=== PATIENT | female | born 2000 | race Caucasian/White ===

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

== ENCOUNTER 2021-04-13 20:19 | Emergency (ER) | payer MEDICAID, SELFPAY ==
[2021-04-13 20:20] VITALS: BP 150/79; PULSE 99; RESP 18; TEMP 36.8; O2SAT 100; BMI 42.5
== END 2021-04-13 21:09 | disposition left against medical advice (07) ==
LOC: ED 21:09
DX: M25.559 Pain in unspecified hip (principal); Z53.21 Procedure and treatment not carried out due to patient leaving prior to being seen by health care provider

== ENCOUNTER 2021-04-14 10:34 | Emergency (ER) | payer MEDICAID, SELFPAY ==
[2021-04-14 10:35] VITALS: BP 168/83; PULSE 104; RESP 16; TEMP 35.8; O2SAT 100; BMI 49.6
--- NOTE | 2021-04-14 10:49 | ED.VIS.LOWEX ---
HPI History of Present Illness HPI Narrative: Patient who is 7 weeks presents with injury to her right hip and right knee that she sustained yesterday. She states that she was walking to her car and did a side split. She denies hitting her head or loss of consciousness but felt her right hip pop. She now has pain that is dull and achy and worse with walking, when it becomes sharp and stabbing. She tried Tylenol without relief. She denies any other problems. She does have mild pain on the lateral aspect of her right knee/distal femur. She has not noticed any bruising. Chief Complaint: Lower Extremity Injury PFSH PFSH Medical History no medical history Home Medications PNV,calcium [id number] acid [ Vitamin Plus Low Iron] 1 tab PO DAILY 04/14/21 [History Last Taken Unknown] ondansetron HCl 4 mg PO Q6H PRN PRN 04/14/21 [History Last Taken Unknown] Allergy/AdvReac Type Severity Reaction Status Date / Time No Known Allergies Allergy Verified 04/13/21 20:23 Surgical History (Updated 04/14/21 @ 10:57 by Ngozi Tabor) History of Surgical History no surgical history Social History Smoking Status: Never smoker ROS ROS ED ROS Narrative Constitutional: No fever, no chills. HEENT: No sore throat. No neck pain. No loss of vision. No rhinorrhea. Cardiovascular: No chest pain. No palpitations. No pedal edema. Respiratory: No cough, no shortness of breath. Abdominal: No abdominal pain. No nausea. No vomiting. Genitourinary: No dysuria. No hematuria. Musculoskeletal: No myalgias. Right hip, right lateral knee/distal femur pain, worse with weightbearing and walking. Neurologic: No headaches. No dizziness. No lightheadedness. Skin: No rash. No change in color. Psychiatric: No depression. No anxiety. EXAM Physical Exam Narrative Exam Narrative: Afebrile. Vital signs noted. HEENT: Normocephalic. Atraumatic. PERRL, EOMI. Neck soft and supple. No point tenderness or step off. Cardiovascular: Regular rate and rhythm. No murmurs, rubs, or gallops appreciated. Respiratory: No tachypnea. Lungs clear to auscultation bilaterally. Gastrointestinal: Abdomen soft, nontender, with normoactive bowel sounds. No rebound or guarding. Neurological: Awake. Alert. Nonfocal, nonlateralizing. Skin: No rash. Normal color. No pallor. Musculoskeletal: No pedal edema. Full range of motion extremities. No pain logrolling of right femur. Mild tenderness to palpation right iliac crest and along right proximal femur. Flexion and extension mechanism of right knee intact. Neurovascular intact distally. Const Vital Signs: 04/14/21 10:35 Temperature 96.4 F L Temperature Source Temporal Pulse Rate 104 H Respiratory Rate 16 Blood Pressure 168/83 H Blood Pressure Mean 111 Pulse Ox 100 Oxygen Delivery Method Room Air Positive obese Nutritional Appearance: obese MDM MDM MDM Narrative Medical decision making narrative: As the patient is 7 weeks , she was told to continue Tylenol which is generally safe in . I did discuss with the patient and her the risk of radiation with x-raying her. It was decided that the risk of radiation was less with a femur x-ray and so as not to irradiate the pelvis with a hip x-ray exclusively. She and her verbally consented to this and acknowledged the risk of radiation to the patient and her fetus. They would like to proceed with x-ray of the right femur. X-ray of the femur appears normal. At this point in time, I do feel that she has more of a hip strain/sprain. I feel she can be discharged safely home with follow-up. 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 Return instructions reviewed. Disposition is discharged home in stable condition. Radiography Diagnostic Testing: Clinical Impression(s) from Imaging Studies Femur X-Ray 04/14/21 11:05 IMPRESSION: Normal x-ray examination of the femur. Electronically Signed: Devaughn Ngo MD at 11:20 EST , Discharge Plan Triage Chief Complaint: Lower Extremity Injury ED Provider: Oscar Heart Dx/Rx/DC Orders Clinical Impression: Hip strain, Acute knee pain, Instructions: ED Hip Strain Prescriptions: No Action ondansetron HCl 4 mg tablet 4 mg PO Q6H PRN PRN (Reason: Nausea) RF: 0 Vitamin Plus Low Iron 27 mg iron- 1 mg tablet 1 tab PO DAILY RF: 0 Primary Care Provider: Care Physician,No Primary Referrals: Sarah North MD [STAFF PHYSICIAN] - As Needed Care Physician,No Primary [Primary Care Provider] - Disposition Disposition: Home, Self Care
--- NOTE | 2021-04-14 11:05 | RAD_ITS ---
STUDY: X-RAY - RIGHT FEMUR REASON FOR STUDY: Female, 20 years old. Pain -- patient 7 weeks TECHNIQUE: 4 view(s) of the femur. COMPARISON: None. FINDINGS: Normal visualized femur. Normal visualized soft tissue structure. RAD/Femur Min 2 Views IMPRESSION: Normal x-ray examination of the femur. Electronically Signed: Devaughn Ngo MD at 11:20 EST ,
== END 2021-04-14 12:20 | disposition home or self-care (01) ==
PROVIDERS: Emergency Provider Emergency Medicine; Visit Provider Emergency Medicine
DX: O9A.211 Injury, poisoning and certain other consequences of external causes complicating pregnancy, first trimester (principal); S76.011A Strain of muscle, fascia and tendon of right hip, initial encounter; W01.0XXA Fall on same level from slipping, tripping and stumbling without subsequent striking against object, initial encounter; Y93.01 Activity, walking, marching and hiking; Y99.8 Other external cause status; O99.891 Other specified diseases and conditions complicating pregnancy; M25.561 Pain in right knee; O99.211 Obesity complicating pregnancy, first trimester; Z3A.01 Less than 8 weeks gestation of pregnancy
CPT/HCPCS: 73552; 99282

== ENCOUNTER 2021-06-03 19:10 | Emergency (ER) | payer MEDICAID, SELFPAY ==
[2021-06-03 19:11] VITALS: BP 131/97; PULSE 130; RESP 15; TEMP 36.2; O2SAT 96; BMI 44.2
--- NOTE | 2021-06-03 19:30 | EKG12_ITS ---
Test Reason : DYSRHYTHMIA Blood Pressure : / mmHG Vent. Rate : 096 BPM Atrial Rate : 096 BPM P-R Int : 158 ms QRS Dur : 092 ms QT Int : 380 ms P-R-T Axes : 048 073 008 degrees QTc Int : 480 ms Sinus rhythm with occasional Premature ventricular complexes Prolonged QT Abnormal ECG Confirmed by SHANNAN DUPREE, NEVIN ([id number]), scientific publications editor AIMEE PONCE ([id number]) on 06/04/2021 12:50:22 P M Referred By: PRISCILLA Confirmed By:FATOU CAMPBELL MD
--- NOTE | 2021-06-03 19:31 | EX.ED.DYSGE1 ---
HPI History of Present Illness Chief Complaint: Palpitations Narrative Narrative: Presents with sudden onset of palpitations racing heart at 4 PM today at rest. Denies chest pains. She is lightheaded with the symptoms. Symptoms presented upon arrival to ED. Currently subsided. Mild dyspnea. No recent cough. No history of similar. G4, P3 14-week gestation followed by Dr. Singh. No recent travel, surgeries, or immobilizations. No history of PE or DVT. Denies recent vomiting or diarrhea. Denies any urinary symptoms. Prior similar symptoms: No PFSH PFSH Home Medications PNV,calcium 58-viez-sisit acid [ Vitamin Plus Low Iron] 1 tab PO DAILY 04/14/21 [History Last Taken Unknown] ondansetron HCl 4 mg PO Q6H PRN PRN 04/14/21 [History Last Taken Unknown] Allergy/AdvReac Type Severity Reaction Status Date / Time No Known Allergies Allergy Verified 06/03/21 19:14 Surgical History History of Social History Smoking Status: Never smoker ROS ROS ED Constitutional Constitutional ED: Denies chills, fever(s) or sweats Eyes Eyes: Denies change in vision ENT ENT ED: Denies dysphagia or sore throat Cardiovascular Cardiovascular: Reports palpitations; Denies chest pain, leg edema or racing heartbeat Respiratory/Chest Respiratory/Chest: Denies cough, dyspnea or dyspnea on exertion Gastrointestinal Gastrointestinal: Denies abdominal pain, diarrhea, nausea or vomiting Genitourinary Genitourinary ED: Denies dysuria, hematuria or urinary frequency Musculoskeletal Musculoskeletal: Denies back pain, extremity pain or neck pain Integumentary Denies rash or wounds Neurologic Neurologic: Denies headache(s), paresthesias or weakness EXAM Physical Exam Const Vital Signs: 06/03/21 19:11 06/03/21 19:30 06/03/21 19:58 Temperature 97.2 F L Temperature Source Temporal Pulse Rate 130 H 74 Respiratory Rate 15 16 Respiratory Effort Normal Blood Pressure 131/97 H 138/78 H Blood Pressure Mean 108 Pulse Ox 96 100 Oxygen Delivery Method Room Air Positive well nourished and well developed General Appearance ED: well developed and NAD HEENT Reports moist mucous membranes normocephalic and atraumatic Eyes PERRL, EOMs intact bilaterally and conjunctivae normal General Eye ED: Yes normal appearance of both eyes Neck no lymphadenopathy and supple General: Negative for tenderness Chest Wall Chest: Negative for tenderness Resp normal respiratory effort and normal air movement Effort and Inspection: symmetric chest movement; Negative for respiratory distress Cardio regular rate, regular rhythm and no murmurs Rate: other Other Details: Heart rate 72 Peripheral Pulses: pulses 2+ throughout GI normal to inspection, nondistended, normoactive bowel sounds and non-tender Palpation: Negative for guarding or rebound tenderness present Back/Spine no CVA tenderness and no thoracic nor lumbar tenderness Extremity normal to inspection General Extremety ED: Negative for edema or tenderness General Extremity: Negative for edema Neuro oriented x3 and no sensory deficits noted Sensorium / Orientation: awake and alert Skin no rashes or lesions noted and no wounds MDM MDM MDM Narrative Medical decision making narrative: Patient's heart rate in triage 130 EKG performed before my evaluation was in the 90s during my evaluation was in the 70s. Pulse ox was 100%. No recent vomiting or diarrhea. Low suspicion for PE with her due to heart rate improving immediately during evaluation. She is in no respiratory distress. EKG is normal with PVCs. Patient currently asymptomatic. New onset palpitations. Discussed with patient laboratory would likely not be helpful she agrees. I will try to set her up with a Holter monitor for evaluation with PCP follow-up. Strict return precautions. All questions were answered. EKG Initial EKG: Attestation: I personally reviewed and interpreted this EKG as follows: Comments: Sinus rate of 96, no ST changes isolated T wave version lead III, PVCs noted QTC 480. Discharge Plan Triage Chief Complaint: Palpitations ED Provider: Goyo Paez Dx/Rx/DC Orders Clinical Impression: Palpitation, Second trimester Instructions: ED Palpitations Prescriptions: No Action ondansetron HCl 4 mg tablet 4 mg PO Q6H PRN PRN (Reason: Nausea) RF: 0 Vitamin Plus Low Iron 27 mg iron- 1 mg tablet 1 tab PO DAILY RF: 0 Primary Care Provider: Care Physician,No Primary Referrals: Stan Longoria MD [STAFF PHYSICIAN] - 5-7 Days Care Physician,No Primary [Primary Care Provider] - Activity Restrictions/Additional Instructions: 48-hour Holter monitor set up. Follow-up with Dr. Longoria. Return if any worsening or recurrent symptoms. Disposition Disposition: Home, Self Care Discharge Date/Time: 06/03/21 20:00
[2021-06-03 19:58] VITALS: BP 138/78; PULSE 74; RESP 16; O2SAT 100
== END 2021-06-03 20:00 | disposition home or self-care (01) ==
PROVIDERS: Emergency Provider Emergency Medicine; Visit Provider Emergency Medicine
DX: O99.891 Other specified diseases and conditions complicating pregnancy (principal); R00.2 Palpitations; Z3A.14 14 weeks gestation of pregnancy
CPT/HCPCS: 93005; 93225; 93226; 99282

== ENCOUNTER → 2021-06-03 | Outpatient (CLI) | payer MEDICAID, SELFPAY | END | disposition home or self-care (01) | LOC: CVS 19:41 | PROVIDERS: Visit Provider Emergency Medicine | DX: R00.2 Palpitations (principal) | CPT/HCPCS: 93225; 93226 ==

== ENCOUNTER 2022-03-22 17:44 | Emergency (ER) | payer MEDICAID, SELFPAY ==
[2022-03-22 17:45] VITALS: BP 134/80; PULSE 131; RESP 22; TEMP 37.2; O2SAT 99; BMI 48.8
== END 2022-03-22 20:02 | disposition left against medical advice (07) ==
LOC: ED 20:32
DX: Z53.21 Procedure and treatment not carried out due to patient leaving prior to being seen by health care provider (principal)

== ENCOUNTER 2022-04-26 17:12 | Emergency (ER) | payer MEDICAID, SELFPAY ==
[2022-04-26 17:14] VITALS: BP 146/107; PULSE 102; RESP 16; TEMP 36.6; O2SAT 99; BMI 47.8
--- NOTE | 2022-04-26 18:14 | US_ITS ---
STUDY: ULTRASOUND OF THE FEMALE PELVIS - COMPLETE REASON FOR EXAM: Female, 21 years old. pelvic pain TECHNIQUE: Endovaginal. Transvaginal US was obtained to better visualized the ovaries. COMPARISON: 10.14.19. FINDINGS: The uterus is anteverted and is in a midline position. The uterus measures 10.6x6.5 cm. There is a Nabothian cyst of the cervix. The endometrium measures 14 mm in thickness, and is heterogeneous (striated). There is no demonstrated endometrial mass. There is no demonstrated myometrial mass. I.U.D. - The patient does not have an I.U.D. The right ovary is visualized. The right ovary measures 3.4 cm. There is no right ovarian cyst or ovarian mass. There is no visualized right adnexal mass or complex lesion. There is normal arterial and normal venous vascularity. The left ovary is visualized. The left ovary measures 3.1 cm. There is no left ovarian cyst or ovarian mass. There is no visualized left adnexal mass or complex lesion. There is normal arterial and normal venous vascularity. There is minimal fluid in the cul-de-sac. Unremarkable urinary bladder. US/Transvaginal Non- IMPRESSION: There is minimal fluid in the cul-de-sac. There is a Nabothian cyst of the cervix. Electronically Signed: Pepe Karimi MD at 19:23 EDT ,
--- NOTE | 2022-04-26 18:15 | EX.ED.DYSGE1 ---
HPI History of Present Illness Chief Complaint: Abd Pain Detail of Chief Complaint: Right lower quadrant pain Informant: patient Onset/Context/Timing Onset: Today Narrative Narrative: Patient presents with her to right lower quadrant pain. She states that her last normal menstrual cycle was 25 March. She took 3 home test this weekend that were positive. 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 She developed right lower quadrant pain today and presents to the emergency room. She does state that she just had an IUD removed about 2 months ago. [facility] Medical History Anxiety and depression delivery delivered History of kidney stones History of migraine History of pre-eclampsia Home Medications ondansetron HCl 4 mg tablet 4 mg PO Q6H PRN PRN Nausea 04/14/21 [History Last Taken Unknown] vitamin with calcium no.72-iron 27 mg-folic acid 1 mg tablet ( Vitamins Plus Low Iron) 1 tab PO DAILY 04/14/21 [History Last Taken Unknown] Allergy/AdvReac Type Severity Reaction Status Date / Time No Known Allergies Allergy Verified 04/26/22 17:16 Family History Grandfather Hypertension Grandmother Diabetes CVA (cerebral vascular accident) Hypertension Lupus Grandfather Diabetes Myocardial infarction CAD (coronary artery disease) Hypertension Surgical History History of Social History Smoking Status: Never smoker ROS ROS ED Constitutional Constitutional ED: Denies chills or fever(s) Eyes Eyes: Denies change in vision or discharge from eye(s) ENT ENT ED: Denies discharge from eye(s), rhinorrhea or sore throat Cardiovascular Cardiovascular: Denies chest pain or palpitations Respiratory/Chest Respiratory/Chest: Denies cough or dyspnea Gastrointestinal Gastrointestinal: Reports abdominal pain; Denies diarrhea, nausea or vomiting Genitourinary Genitourinary ED: Denies difficulty urinating or dysuria Musculoskeletal Musculoskeletal: Denies back pain or extremity pain Integumentary Denies Abrasions or rash Neurologic Neurologic: Denies headache(s) or weakness Psychiatric Psychiatric: Denies anxiety or depression Allergic/Immunologic Allergic/Immunologic ED: Denies lip swelling or urticaria EXAM Physical Exam Const Vital Signs: 04/26/22 17:14 Temperature 97.8 F Temperature Source Temporal Pulse Rate 102 H Respiratory Rate 16 Blood Pressure 146/107 H Blood Pressure Mean 120 Pulse Ox 99 Oxygen Delivery Method Room Air Positive well nourished and well developed General Appearance ED: well developed HEENT Reports normocephalic and head/scalp atraumatic Eyes PERRL and EOMs intact bilaterally Neck supple Chest Wall inspection of chest normal and palpation of chest normal Resp normal respiratory effort and clear to auscultation bilaterally Cardio regular rate and regular rhythm GI GI Narrative: Right lower quadrant tenderness palpation. No guarding or rebound. Palpation: soft Extremity normal to inspection Neuro oriented x3 and no sensory deficits noted Sensorium / Orientation: alert Motor Exam: strength 5/5 throughout Psych mental status grossly normal Skin no rashes or lesions noted MDM MDM MDM Narrative Medical decision making narrative: Lab work obtained along with hCG quant to evaluate for leukocytosis, anemia, . Pelvic ultrasound performed given her right lower quadrant pain. Lab Data Attestation: I reviewed the patient's lab results. Labs: Laboratory Results - last 24 hr 04/26/22 04/26/22 04/26/22 17:20 18:15 18:15 WBC 10.3 RBC 4.80 Hgb 11.6 L Hct 37.7 MCV 78.5 L MCH 24.2 L MCHC 30.8 L RDW Std Deviation 38.4 RDW Coeff of Teddy 13.5 Plt Count 208 MPV 12.4 H Immature Gran % (Auto) 0.300 Neut % (Auto) 52.5 Lymph % (Auto) 38.3 Weld % (Auto) 7.4 Eos % (Auto) 0.9 Baso % (Auto) 0.6 Absolute Neuts (auto) 5.4 Absolute Lymphs (auto) 3.94 Nucleated RBC % 0 Sodium 140 Potassium 3.8 Chloride 107 Carbon Dioxide 26.0 Anion Gap 7 BUN 18 Creatinine 0.82 Estim Creat Clear Calc 89.77 Est GFR (MDRD) Af Amer 113 Est GFR (MDRD) Non-Af 93 BUN/Creatinine Ratio 21.9 H Glucose 90 Calcium 8.8 HCG, Quant Urine Color Yellow Urine Clarity Sl. Cloudy Urine pH 7.0 Ur Specific [place] 1.015 Urine Protein 15 H Urine Glucose (UA) Normal Urine Ketones Negative Urine Occult Blood Negative Urine Nitrite Negative Urine Bilirubin Negative Urine Urobilinogen Normal Ur Leukocyte Esterase 25 H Urine RBC 0 SEEN Urine WBC 0-5 SEEN Ur Squamous Epith Cells 10-25 SEEN Urine Bacteria 0 SEEN Urine Mucus 0 SEEN 04/26/22 18:15 WBC RBC Hgb Hct MCV MCH MCHC RDW Std Deviation RDW Coeff of Teddy Plt Count MPV Immature Gran % (Auto) Neut % (Auto) Lymph % (Auto) Weld % (Auto) Eos % (Auto) Baso % (Auto) Absolute Neuts (auto) Absolute Lymphs (auto) Nucleated RBC % Sodium Potassium Chloride Carbon Dioxide Anion Gap BUN Creatinine Estim Creat Clear Calc Est GFR (MDRD) Af Amer Est GFR (MDRD) Non-Af BUN/Creatinine Ratio Glucose Calcium HCG, Quant < 1 Urine Color Urine Clarity Urine pH Ur Specific [place] Urine Protein Urine Glucose (UA) Urine Ketones Urine Occult Blood Urine Nitrite Urine Bilirubin Urine Urobilinogen Ur Leukocyte Esterase Urine RBC Urine WBC Ur Squamous Epith Cells Urine Bacteria Urine Mucus Radiography Diagnostic Testing: Clinical Impression(s) from Imaging Studies Transvaginal US 04/26/22 18:14 IMPRESSION: There is minimal fluid in the cul-de-sac. There is a Nabothian cyst of the cervix. Electronically Signed: Pepe Karimi MD at 19:23 EDT Reading Location ID and State: [facility] - [place] / [place] , Service support , Differential Diagnosis Abdominal Pain: Appendicitis Reason(s) appendicitis less likely: Positive for clinical exam does not supportclinical exam does not support and UTI Reason(s) UTI less likely: no evidence of infection on urinalysis Treatment and Re-Evaluation :: CBC and chemistry studies are unremarkable. Quant returns at less than 1. Urinalysis reveals no sign of acute infection with epithelial cells present on the microscopic exam. Pelvic ultrasound reveals minimal fluid in the cul-de-sac. Nabothian cyst noted in the cervix. No acute findings appreciated. Test results discussed with patient and at bedside. She is reassured with this work-up. She is given return instructions. Discharge Plan Triage Chief Complaint: Abd Pain ED Provider: Karina Hooks Dx/Rx/DC Orders Clinical Impression: Pelvic pain Instructions: ED Abdominal Pain Unkn Cause Fem Prescriptions: No Action ondansetron HCl 4 mg tablet 4 mg PO Q6H PRN PRN (Reason: Nausea) Vitamin Plus Low Iron 27 mg iron- 1 mg tablet 1 tab PO DAILY Primary Care Provider: Care Physician,No Primary Referrals: Samson Singh MD [Non-Staff] - 1 Week if not improving Care Physician,No Primary [Primary Care Provider] - Disposition Disposition: Home, Self Care
[2022-04-26 18:25] LABS: Absolute Lymphocyte Count 3.94 X10^3/uL (0.83-4.51); Absolute Neutrophil Count 5.4 X10^3/uL (2.0-7.7); Basophil# 0.06 X10^3/uL; Basophil% 0.6 % (0-1); Eosinophil# 0.09 X10^3/uL; Eosinophils% 0.9 % (0-5); Hematocrit 37.7 % (37-47); Hemoglobin 11.6 g/dL (12.0-15.0); Lymphocyte # 3.94 X10^3/ul (0.83-4.51); Lymphocyte % 38.3 % (19-41); Mean Corp Hgb Conc 30.8 g/dL (32-36); Mean Corpuscular Hgb 24.2 pg (27.0-32.0); Mean Corpuscular Volume 78.5 fL (81-99); Mean Platelet Vol. 12.4 fl (6.2-12.0); Monocyte# 0.76 X10^3/uL; Monocyte% 7.4 % (0-10); NRBC Flagged by Analyzer 0 % (0-5); Neutrophil # 5.41 X10^3/uL (2.7-7.7); Neutrophil % 52.5 % (47-70); Platelet Count 208 K/mm3 (150-450); RBC Distribution Width CV 13.5 % (11.6-14.6); RBC Distribution Width SD 38.4 fl (35.1-43.9); White Blood Count 10.3 K/mm3 (4.4-11.0)
[2022-04-26 18:42] LABS: Anion Gap 7 (5-15); BUN 18 mg/dL (7-18); BUN/Creat Ratio 21.9 RATIO (10-20); Calcium,Total 8.8 mg/dL (8.5-10.1); Chloride 107 mmol/L (98-107); Creatinine, Serum 0.82 mg/dL (0.55-1.02); EST Glomerular Filtration Rate 93 mL/min (>60); Est Glom Filt Rate - Afr Amer 113 mL/min (>60); Estimated Creatinine Clearance 89.77 ml/min; Glucose 90 mg/dL (74-106); Potassium 3.8 mmol/L (3.5-5.1); Sodium Level 140 mmol/L (136-145)
[2022-04-26 18:52] LABS: Bacteria 0 SEEN /hpf (None Seen); Mucous, Urine 0 SEEN /hpf (<or=2+); Red Blood Cells-Urine 0 SEEN /hpf (0-5)
[2022-04-26 19:25] LABS: Color, Urine Yellow (Yellow); Glucose, Dipstick Normal (Normal); Ketone-Dipstick Negative (Negative); Leukocyte Esterase-Dipstick 25 /ul (Negative); Nitrite-Dipstick Negative (Negative); Occult Blood-Urine Negative /ul (Negative); Protein-Dipstick 15 mg/dl (Negative); Specific Gravity, Urine 1.015 (1.002-1.030); Urine Bilirubin Dipstick Negative (Negative); Urine Clarity Sl. Cloudy (Clear); Urine Urobilinogen Normal (Normal)
[2022-04-26 19:47] LABS: hCG Titer Quant., Serum < 1 mIU/mL (1-3)
[2022-04-26 19:50] LABS: Squamous Epithelial Cells - UA 10-25 SEEN /hpf (5-10); White Blood Cells 0-5 SEEN /hpf (0-5)
== END 2022-04-26 20:07 | disposition home or self-care (01) ==
PROVIDERS: Emergency Provider Emergency Medicine; Visit Provider Emergency Medicine
DX: R10.2 Pelvic and perineal pain (principal)
CPT/HCPCS: 76830; 80048; 81001; 84702; 85025; 99283; A4216

== ENCOUNTER 2022-11-09 07:00 | Outpatient (CLI) | payer MEDICAID, SELFPAY ==
[2022-11-09] VITALS (13 sets, daily range): BP systolic 109–132; BP diastolic 54–65; PULSE 70–100; TEMP 36.2; O2SAT 98; BMI 47.5
[2022-11-09] MEDS: 0.9% Saline Lock 10 ML Syringe IV (08:25)
--- NOTE | 2022-11-09 08:34 | OB.TRI.NOTE ---
HPI - General HPI Narrative LESTER BASURTO, is a 21 y/o @ 22 weeks (per patient) who presents, who presents to L&D as a no doc patient with the complaint of RUQ pain under her rib, blurry vision, (no headache), and a gush of pink fluid from the vagina this am. She states that it was about a cup worth of fluid. She denies urinary incontinence or dysuria. She sees Dr. Singh in [place] and has a history of pre-e with first and 3 prior sections. She also states that she did not feel the baby move much last night. She denies a history of diabetes or hypertension. she is morbidly obese and is [facility]. Maternal Data Information Gestational age: 22 weeks [facility] Medical History Anxiety and depression delivery delivered History of kidney stones History of migraine History of pre-eclampsia Home Medications vitamin with calcium no.72-iron 27 mg-folic acid 1 mg tablet ( Vitamins Plus Low Iron) 1 tab PO DAILY 04/14/21 [History Last Taken 11/08/22 07:00 1 TAB] Allergy/AdvReac Type Severity Reaction Status Date / Time No Known Allergies Allergy Verified 11/09/22 07:37 Family History Grandfather Hypertension Grandmother Diabetes CVA (cerebral vascular accident) Hypertension Lupus Grandfather Diabetes Myocardial infarction CAD (coronary artery disease) Hypertension Surgical History History of Social History Smoking Status: Never smoker History Elective abortions Hx Para 0 Spontaneous abortions Hx # Term Pregnancies Ectopic pregnancies Hx # Pregnancies Multiple births # of living children ROS Constitutional Constitutional: Reports systems reviewed and no addt'l complaints, except as documented Gastrointestinal Gastrointestinal: Denies bloating, constipation, cramping, diarrhea, nausea or vomiting Genitourinary Genitourinary: Reports other Details: Denies vaginal odor, vaginal bleeding, or vaginal discharge ; Denies difficulty urinating or flank pain Physical Exam HEENT normocephalic Resp normal respiratory effort and normal air movement GI GI Narrative: obese, non-tender. cutaneous yeast infection present as is obvious from the smell and red lacy rash. no CVA tenderness Narrative: bedside ultrasound shows a transverse live fetus with RACHEAL of 12.24, hiccups noted, flexion/extension and gross body movement seen. OB / External & Speculum: other no fluid or blood in the vagina. Manual OB Exam: not dilated nor effaced and dilated no dilation or effacement Uterus Palpation: uterus tender Amniotic Fluid: no amniotic fluid noted Extremity normal to inspection General Extremity: edema bilateral (trace ) Assessment & Plan (1) Blurry vision: (2) Vaginal bleeding during , antepartum: (3) Right upper quadrant abdominal pain: COMMENT: x 3 PLAN: Plan CBC, CMP, LDH, Prot: cr ratio, UA stat no signs of fluid leaking, blood, no signs of labor on spec exam but will send off ROM + lab follow up: PIH labs are all normal, UA shows 3+ bacteria and leukocytes ROM + is negative pt was given news of negative results and reports that since being here has started having some mild cramping. Plan to give 1 gram of ancef now and plan for outpatient keflex with close follow up with her primary OB in [place]. Charges/Coding Multi Select Codes Visit Charges Office Visit/Consults: 06267 OV L3 Est
[2022-11-09 08:38] LABS: ROM Internal Control Test YES-OK TO RESULT pt. (Internal QC); ROM Patient Test Negative (Negative)
[2022-11-09 08:39] LABS: Record Kit Lot#, ROM+ K1409
[2022-11-09 08:54] LABS: Hematocrit 34.8 % (37-47); Hemoglobin 11.1 g/dL (12.0-15.0); Mean Corp Hgb Conc 31.9 g/dL (32-36); Mean Corpuscular Hgb 25.1 pg (27.0-32.0); Mean Corpuscular Volume 78.6 fL (81-99); Mean Platelet Vol. 12.6 fl (6.2-12.0); Platelet Count 171 K/mm3 (150-450); RBC Distribution Width CV 14.7 % (11.6-14.6); RBC Distribution Width SD 42.4 fl (35.1-43.9); Red Blood Count 4.43 M/mm3 (4.2-5.4); White Blood Count 9.8 K/mm3 (4.4-11.0)
[2022-11-09 09:23] LABS: AST(SGOT) 16 U/L (15-37); Alanine Aminotransfer ALT/SGPT 25 U/L (13-56); Creatinine, Serum 0.62 mg/dL (0.55-1.02); EST Glomerular Filtration Rate 129 mL/min (>60); Est Glom Filt Rate - Afr Amer 155 mL/min (>60); Estimated Creatinine Clearance 118.73 ml/min; Uric Acid 4.9 mg/dL (2.6-6.0)
[2022-11-09 09:38] LABS: Red Blood Cells-Urine 0 SEEN /hpf (0-5)
[2022-11-09 09:42] LABS: LDH 159 U/L (84-246)
[2022-11-09 09:48] LABS: Color, Urine Yellow (Yellow); Glucose, Dipstick Normal (Normal); Ketone-Dipstick Negative (Negative); Leukocyte Esterase-Dipstick 100 /ul (Negative); Nitrite-Dipstick Negative (Negative); Occult Blood-Urine Negative /ul (Negative); Protein-Dipstick 15 mg/dl (Negative); Specific Gravity, Urine 1.015 (1.002-1.030); Urine Bilirubin Dipstick Negative (Negative); Urine Clarity Sl. Cloudy (Clear); Urine Urobilinogen 1 mg/dl (Normal)
[2022-11-09 09:57] LABS: Amorphous Sediment 2+; Bacteria 3+ /hpf (None Seen); Mucous, Urine 1+ /hpf (<or=2+); Squamous Epithelial Cells - UA 5-10 SEEN /hpf (5-10); White Blood Cells 10-25 SEEN /hpf (0-5)
[2022-11-09 10:06] LABS: Protein, Urine (Random) 32.9 mg/dL (<11.9); Protein:Creat Ratio 197 mg/g CRE (0-200)
[2022-11-09] MEDS: Lactated Ringers 1,000 ML 999 ML IV (10:31)
[2022-11-09] MEDS: Acetaminophen 500 MG Tablet 1000 MG PO (10:34)
[2022-11-09] MEDS: Cefazolin 1 GM/50 ML BAG IV (12:20)
== END 2022-11-09 13:10 | disposition home or self-care (01) ==
LOC: WPOUT 07:16 → WP 07:16
PROVIDERS: Referring Provider Obstetrics & Gynecology; Visit Provider Obstetrics & Gynecology
DX: O99.892 Other specified diseases and conditions complicating childbirth (principal); E66.01 Morbid (severe) obesity due to excess calories; O99.891 Other specified diseases and conditions complicating pregnancy; O99.212 Obesity complicating pregnancy, second trimester; O46.92 Antepartum hemorrhage, unspecified, second trimester; H53.8 Other visual disturbances; R10.11 Right upper quadrant pain; Z3A.22 22 weeks gestation of pregnancy
CPT/HCPCS: 96365; 96367; 36415; 59025; 59050; 76815; 81001; 82565; 82570; 83615; 84112; 84156; 84450; 84460; 84550; 85027; 87086; 87088; 99221; J7120; A4216; G0378

== ENCOUNTER 2022-12-02 07:50 | Outpatient (CLI) | payer MEDICAID, SELFPAY ==
[2022-12-02 08:07] VITALS: BP 133/66; PULSE 85; PULSE 93; TEMP 36; O2SAT 97
[2022-12-02 08:16] VITALS: BMI 46.0
--- NOTE | 2022-12-02 08:34 | OB.TRI.HP_ITS ---
HPI - General General Date of Service: 12/02/22 HPI Narrative LESTER BASURTO, is a 22 F who presents with dizziness at times. Per RN she was seen yesterday for this and no change. Maternal Data Information Final YOANDY: 03/[birth year]/23 Gestational age: 25&4 weeks [facility] Medical History Anxiety and depression delivery delivered History of kidney stones History of migraine History of pre-eclampsia Home Medications vitamin with calcium no.72-iron 27 mg-folic acid 1 mg tablet ( Vitamins Plus Low Iron) 1 tab PO DAILY 04/14/21 [History Last Taken 12/01/22 08:00 1 TAB] Allergy/AdvReac Type Severity Reaction Status Date / Time No Known Allergies Allergy Verified 12/02/22 08:18 Family History Grandfather Hypertension Grandmother Diabetes CVA (cerebral vascular accident) Hypertension Lupus Grandfather Diabetes Myocardial infarction CAD (coronary artery disease) Hypertension Surgical History History of Social History Smoking Status: Never smoker History Elective abortions Hx Para 0 Spontaneous abortions Hx # Term Pregnancies Ectopic pregnancies Hx # Pregnancies Multiple births # of living children NST FHR Rate Baby A Baseline: 135 Variability:: Moderate Accelerations:: None Decelerations:: None NST Reactive:: Appropriate for gestational age Uterine Activity:: rare ctx Assessment & Plan (1) Dizziness, nonspecific: PLAN: Plan Reassuring NST
== END 2022-12-02 09:07 | disposition home or self-care (01) ==
LOC: WPOUT 07:55 → WP 08:05
PROVIDERS: Referring Provider Obstetrics & Gynecology; Visit Provider Obstetrics & Gynecology
DX: O99.891 Other specified diseases and conditions complicating pregnancy (principal); R42 Dizziness and giddiness; O34.219 Maternal care for unspecified type scar from previous cesarean delivery; Z3A.25 25 weeks gestation of pregnancy
CPT/HCPCS: 59025; 59050; 99221; G0378

== ENCOUNTER 2023-02-02 15:20 | Outpatient (CLI) | payer MEDICAID, SELFPAY ==
[2023-02-02 15:51] VITALS: BP 130/60; PULSE 86; TEMP 37.6; O2SAT 99
[2023-02-02 15:59] VITALS: BMI 48.4
[2023-02-02 16:06] VITALS: BP 115/58; PULSE 85
[2023-02-02 16:21] VITALS: BP 123/57; PULSE 81
[2023-02-02 16:38] VITALS: BP 104/58; PULSE 82
[2023-02-02 16:40] LABS: Hematocrit 31.8 % (37-47); Hemoglobin 10.1 g/dL (12.0-15.0); Mean Corp Hgb Conc 31.8 g/dL (32-36); Mean Corpuscular Hgb 24.4 pg (27.0-32.0); Mean Corpuscular Volume 76.8 fL (81-99); Mean Platelet Vol. 13.5 fl (6.2-12.0); Platelet Count 145 K/mm3 (150-450); RBC Distribution Width CV 14.3 % (11.6-14.6); RBC Distribution Width SD 39.2 fl (35.1-43.9); Red Blood Count 4.14 M/mm3 (4.2-5.4); White Blood Count 7.6 K/mm3 (4.4-11.0)
[2023-02-02 16:51] VITALS: BP 113/54; PULSE 85
[2023-02-02 16:55] LABS: AST(SGOT) 25 U/L (15-37); Alanine Aminotransfer ALT/SGPT 29 U/L (13-56); Creatinine, Serum 0.54 mg/dL (0.55-1.02); EST Glomerular Filtration Rate 149 mL/min (>60); Est Glom Filt Rate - Afr Amer 180 mL/min (>60); Estimated Creatinine Clearance 135.18 ml/min; Uric Acid 4.3 mg/dL (2.6-6.0)
[2023-02-02 17:03] LABS: Protein, Urine (Random) 15.3 mg/dL (<11.9); Protein:Creat Ratio 225 mg/g CRE (0-200)
[2023-02-02 17:06] VITALS: BP 117/53; PULSE 74
--- NOTE | 2023-02-03 14:35 | OB.TRI.NOTE ---
HPI - General General Date of Admission: 02/02/23 Date of Service: 02/02/23 Chief Complaint: Mild Headache and Contractions HPI Narrative LESTER BASURTO, is a 22 F who presents to labor delivery at 34 weeks 3 days gestation with mild headache and some mild contractions as well. Patient is obese. Patient follows with an out-of-town physician and they instructed her to come to the nearest hospital. Examination shows normal blood pressures and a pre-E workup was negative. Vaginal examination showed no evidence of labor. [facility] Medical History Anxiety and depression delivery delivered History of kidney stones History of migraine History of pre-eclampsia Home Medications vitamin with calcium no.72-iron 27 mg-folic acid 1 mg tablet ( Vitamins Plus Low Iron) 1 tab PO DAILY 04/14/21 [History Last Taken 02/02/23 08:00 1 TAB] famotidine 20 mg tablet (Acid-Pep) 20 mg PO DAILY 02/02/23 [History Last Taken 02/01/23 10:00 20 mg] ferrous sulfate 325 mg (65 mg iron) tablet (Feosol) 325 mg PO QODAY 02/02/23 [History Last Taken 02/02/23 08:00 325 mg] insulin detemir U-100 100 unit/mL (3 mL) subcutaneous pen (Levemir FlexPen) 24 unit subcut QHS 02/02/23 [History Last Taken 02/01/23 21:30 24 units] ursodiol 300 mg capsule 300 mg PO TID 02/02/23 [History Last Taken 02/02/23 08:00 300 mg] Allergy/AdvReac Type Severity Reaction Status Date / Time No Known Allergies Allergy Verified 02/02/23 15:54 Family History Grandfather Hypertension Grandmother Diabetes CVA (cerebral vascular accident) Hypertension Lupus Grandfather Diabetes Myocardial infarction CAD (coronary artery disease) Hypertension Surgical History History of Social History Smoking Status: Never smoker History Elective abortions Hx Para 0 Spontaneous abortions Hx # Term Pregnancies Ectopic pregnancies Hx # Pregnancies Multiple births # of living children NST FHR Rate Baby A NST Reactive:: Yes FHR Category:: Category I Assessment & Plan (1) History of pre-eclampsia: PLAN: 34-week 3-day intrauterine with mild headache and some mild uterine activity noted. No evidence of labor on examination and pre-E workup was negative and reactive NST. 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 (2) Headache in :
== END 2023-02-02 17:20 | disposition home or self-care (01) ==
LOC: WPOUT 15:29 → WP 15:29
PROVIDERS: Referring Provider Obstetrics & Gynecology; Visit Provider Obstetrics & Gynecology
DX: O99.891 Other specified diseases and conditions complicating pregnancy (principal); Z79.4 Long term (current) use of insulin; O99.213 Obesity complicating pregnancy, third trimester; R51.9 Headache, unspecified; Z3A.34 34 weeks gestation of pregnancy
CPT/HCPCS: 36415; 59025; 59050; 82565; 82570; 84156; 84450; 84460; 84550; 85027; 99221; G0378

== ENCOUNTER 2023-08-17 08:55 | Emergency (ER) | payer MEDICAID, SELFPAY ==
[2023-08-17 08:56] VITALS: BP 143/78; PULSE 86; RESP 18; TEMP 35.9; O2SAT 99; BMI 50.1
--- NOTE | 2023-08-17 09:17 | ED.VIS.FEGU ---
HPI HPI - Female History of Present Illness Chief Complaint: Informant: patient Narrative Narrative: Patient presents secondary to mid right-sided abdominal pain that is sharp in nature. Patient states pain started last evening. 3 days ago patient had a positive home test. She is not having any bleeding but has noted some pelvic cramping. She states her last menstrual cycle was late April, but she does have irregular periods. Patient does state that during her last she had cholestasis and is not sure if that may be what is going on again. She has had no fever or chills. No vomiting. PFSH PFS Medical History History of migraine History of kidney stones History of pre-eclampsia Anxiety and depression delivery delivered Home Medications ?Medication ?Instructions ?Recorded ?Last Taken ?Type vitamin with calcium 1 tab PO DAILY 04/14/21 02/02/23 08:00 History no.72-iron 27 mg-folic acid 1 mg 1 TAB tablet ( Vitamins Plus Low Iron) famotidine 20 mg tablet (Acid-Pep) 20 mg PO DAILY 02/02/23 02/01/23 10:00 History 20 mg ferrous sulfate 325 mg (65 mg 325 mg PO QODAY 02/02/23 02/02/23 08:00 History iron) tablet (Feosol) 325 mg insulin detemir U-100 100 unit/mL 24 unit subcut QHS 02/02/23 02/01/23 21:30 History (3 mL) subcutaneous pen (Levemir 24 units FlexPen) ursodiol 300 mg capsule 300 mg PO TID 02/02/23 02/02/23 08:00 History 300 mg Allergy/AdvReac Type Severity Reaction Status Date / Time No Known Allergies Allergy Verified 08/17/23 08:56 Family History Grandfather Hypertension Grandmother Diabetes CVA (cerebral vascular accident) Hypertension Lupus Grandfather Diabetes Myocardial infarction CAD (coronary artery disease) Hypertension Surgical History History of Social History Smoking Status: Never smoker ROS ROS ED Constitutional Constitutional ED: Denies chills or fever(s) Eyes Eyes: Denies discharge from eye(s) ENT ENT ED: Denies discharge from eye(s), rhinorrhea or sore throat Cardiovascular Cardiovascular: Denies chest pain Respiratory/Chest Respiratory/Chest: Denies cough or dyspnea Gastrointestinal Gastrointestinal: Reports abdominal pain; Denies nausea or vomiting Musculoskeletal Musculoskeletal: Denies back pain or extremity pain Integumentary Denies Abrasions or rash Neurologic Neurologic: Denies headache(s) or weakness Psychiatric Psychiatric: Denies anxiety or depression Allergic/Immunologic Allergic/Immunologic ED: Denies lip swelling or urticaria EXAM Physical Exam Const Vital Signs: 08/17/23 08:56 08/17/23 10:55 08/17/23 12:00 Temperature 96.7 F L Temperature Source Temporal Pulse Rate 86 80 82 Respiratory Rate 18 18 16 Blood Pressure 143/78 H 122/61 H 135/76 H Blood Pressure Mean 99 81 95 Pulse Ox 99 98 98 Oxygen Delivery Method Room Air Room Air Room Air 08/17/23 14:00 Temperature Temperature Source Pulse Rate 81 Respiratory Rate 16 Blood Pressure 130/72 H Blood Pressure Mean 91 Pulse Ox 98 Oxygen Delivery Method Room Air Positive well nourished and well developed General Appearance ED: well developed HEENT Reports moist mucous membranes Eyes EOMs intact bilaterally Chest Wall inspection of chest normal and palpation of chest normal Resp normal respiratory effort and clear to auscultation bilaterally Cardio regular rate and regular rhythm GI GI Narrative: Abdomen soft with mild tenderness in the right mid abdomen. No focal tenderness with deep palpation in the right upper quadrant. Active bowel sounds are noted throughout. No guarding or rebound. No palpable masses. Extremity normal to inspection Neuro oriented x3 and no sensory deficits noted Motor Exam: strength 5/5 throughout Psych mental status grossly normal Skin no rashes or lesions noted MDM MDM MDM Narrative Medical decision making narrative: IV line established. Labwork obtained to evaluate for leukocytosis, anemia, and electrolyte derangement. Urinalysis obtained to evaluate for infection/hematuria. History & Record Review Discussion w/independent historian: Patient Lab Data Attestation: I reviewed the patient's lab results. Labs: Laboratory Results - last 24 hr 08/17/23 08/17/23 09:57 09:59 WBC 8.1 RBC 4.75 Hgb 11.4 L Hct 36.6 L MCV 77.1 L MCH 24.0 L MCHC 31.1 L RDW Std Deviation 38.8 RDW Coeff of Teddy 14.0 Plt Count 170 MPV 11.2 Immature Gran % (Auto) 0.400 Neut % (Auto) 65.2 Lymph % (Auto) 27.7 [place] % (Auto) 6.0 Eos % (Auto) 0.1 Baso % (Auto) 0.6 Absolute Neuts (auto) 5.3 Absolute Lymphs (auto) 2.25 Nucleated RBC % 0 Sodium 136 Potassium 3.7 Chloride 107 Carbon Dioxide 22.0 Anion Gap 7 BUN 7 Creatinine 0.62 Estim Creat Clear Calc 185.93 Est GFR (MDRD) Af Amer 155 Est GFR (MDRD) Non-Af 128 BUN/Creatinine Ratio 11.4 Glucose 90 Calcium 8.6 Total Bilirubin 0.30 Direct Bilirubin 0.11 AST 12 L ALT 19 Alkaline Phosphatase 122 H Total Protein 7.1 Albumin 2.8 L Globulin 4.3 H Lipase 23 HCG, Quant 03267 H Urine Color Straw Urine Clarity Cloudy Urine pH 7.0 Ur Specific [place] 1.030 Urine Protein 15 H Urine Glucose (UA) Normal Urine Ketones Negative Urine Occult Blood Negative Urine Nitrite Negative Urine Bilirubin Negative Urine Urobilinogen Normal Ur Leukocyte Esterase Negative Urine RBC 0-5 SEEN Urine WBC 0 SEEN Ur Squamous Epith Cells 10-25 SEEN Urine Bacteria 2+ Urine Mucus 0 SEEN Radiography Diagnostic Testing: Clinical Impression(s) from Imaging Studies Gallbladder Ultrasound 08/17/23 11:08 IMPRESSION: 1. Hepatomegaly and hepatic steatosis. 2. No evidence of gallstones or gallbladder wall thickening. 3. Probable small nonobstructing stone in the right kidney. Electronically Signed: Osorio Diaz MD at 14:51 EDT , Obstetrics Ultrasound 08/17/23 11:08 IMPRESSION: Single live intrauterine fetus with an estimated gestational age of 14 weeks and 1 day. YOANDY is 02/14/20[birth year] Electronically Signed: Osorio Diaz MD at 15:08 EDT , Treatment and Re-Evaluation Narrative: CBC reveals normal white count 8.1 with normal differential. Hemoglobin is 11.4. Chemistry studies unremarkable. LFTs significant only for [place]os [place] [address]. Lipase is normal at 23. Urinalysis reveals epithelial cells but no evidence of infection. Right upper quadrant ultrasound reveals hepatomegaly and hepatic steatosis. No evidence of gallstones or gallbladder wall thickening. Obstetric ultrasound reveals single live intrauterine with gestational age of 14 weeks and 1 day. heart tones are measured at 158. Test results discussed with the patient. No acute abnormalities noted on her imaging or lab studies today. Patient will use Tylenol as needed for pain. She will follow-up with her PUBLICATIONS WRITER. Return instructions provided. Discharge Plan Triage Chief Complaint: ED Provider: Karina Hooks Dx/Rx/DC Orders Clinical Impression: Second trimester , Abdominal pain Instructions: ED Abdominal Pain Unkn Cause Fem Prescriptions: No Action Vitamin Plus Low Iron 27 mg iron- 1 mg tablet 1 tab PO DAILY ursodiol 300 mg capsule 300 mg PO TID famotidine [Acid-Pep] 20 mg tablet 20 mg PO DAILY ferrous sulfate [Feosol] 325 mg (65 mg iron) tablet 325 mg PO QODAY Levemir FlexPen 100 unit/mL (3 mL) insulin pen 24 unit subcut QHS Primary Care Provider: Care Physician,No Primary Referrals: Samson Singh MD [Non-Staff] - 1-2 Weeks Care Physician,No Primary [Primary Care Provider] - Print Language: Spanish Disposition Disposition: Home, Self Care
[2023-08-17 10:04] LABS: Mucous, Urine 0 SEEN /hpf (<or=2+); White Blood Cells 0 SEEN /hpf (0-5)
[2023-08-17 10:08] LABS: Absolute Lymphocyte Count 2.25 X10^3/uL (0.83-4.51); Absolute Neutrophil Count 5.3 X10^3/uL (2.0-7.7); Basophil# 0.05 X10^3/uL; Basophil% 0.6 % (0-1); Eosinophil# 0.01 X10^3/uL; Eosinophils% 0.1 % (0-5); Hematocrit 36.6 % (37-47); Hemoglobin 11.4 g/dL (12.0-15.0); Lymphocyte # 2.25 X10^3/ul (0.83-4.51); Lymphocyte % 27.7 % (19-41); Mean Corp Hgb Conc 31.1 g/dL (32-36); Mean Corpuscular Volume 77.1 fL (81-99); Mean Platelet Vol. 11.2 fl (6.2-12.0); Monocyte# 0.49 X10^3/uL; NRBC Flagged by Analyzer 0 % (0-5); Neutrophil # 5.28 X10^3/uL (2.7-7.7); Neutrophil % 65.2 % (47-70); Platelet Count 170 K/mm3 (150-450); RBC Distribution Width SD 38.8 fl (35.1-43.9); Red Blood Count 4.75 M/mm3 (4.2-5.4); White Blood Count 8.1 K/mm3 (4.4-11.0)
[2023-08-17 10:08] LABS: Color, Urine Straw (Yellow); Glucose, Dipstick Normal (Normal); Ketone-Dipstick Negative (Negative); Leukocyte Esterase-Dipstick Negative /ul (Negative); Nitrite-Dipstick Negative (Negative); Occult Blood-Urine Negative /ul (Negative); Protein-Dipstick 15 mg/dl (Negative); Urine Bilirubin Dipstick Negative (Negative); Urine Clarity Cloudy (Clear); Urine Urobilinogen Normal (Normal)
[2023-08-17 10:14] LABS: Bacteria 2+ /hpf (None Seen); Red Blood Cells-Urine 0-5 SEEN /hpf (0-5); Squamous Epithelial Cells - UA 10-25 SEEN /hpf (5-10)
[2023-08-17 10:24] LABS: AST(SGOT) 12 U/L (15-37); Alanine Aminotransfer ALT/SGPT 19 U/L (13-56); Albumin, Serum 2.8 g/dL (3.2-5.0); Alkaline Phosphatase 122 U/L (45-117); Anion Gap 7 (5-15); BUN 7 mg/dL (7-18); BUN/Creat Ratio 11.4 RATIO (10-20); Bilirubin, Direct 0.11 mg/dL (0.00-0.30); Calcium,Total 8.6 mg/dL (8.5-10.1); Chloride 107 mmol/L (98-107); Creatinine, Serum 0.62 mg/dL (0.55-1.02); EST Glomerular Filtration Rate 128 mL/min (>60); Est Glom Filt Rate - Afr Amer 155 mL/min (>60); Estimated Creatinine Clearance 185.93 ml/min; Globulin 4.3 g/dL (2.2-4.2); Glucose 90 mg/dL (74-106); Lipase 23 U/L (13-75); Potassium 3.7 mmol/L (3.5-5.1); Protein, Total 7.1 g/dL (6.4-8.2); Sodium Level 136 mmol/L (136-145)
[2023-08-17 10:49] LABS: hCG Titer Quant., Serum 17582 mIU/mL (1-3)
[2023-08-17 10:55] VITALS: BP 122/61; PULSE 80; RESP 18; O2SAT 98
--- NOTE | 2023-08-17 11:08 | US_ITS ---
INDICATION: abd pain -- RUQ PAIN EXAMINATION: Ultrasound US Abdomen Limited (quadrant) TECHNIQUE: Sellers scale and color doppler imaging was performed of the right upper quadrant. COMPARISON: CT scan of the abdomen pelvis 07/16/2018 FINDINGS: LIVER: The liver is enlarged measuring about 20 cm in length and is echogenic in texture. The portal vein is patent with normal hepatopedal flow. No focal hepatic lesion. There is no free fluid. GALLBLADDER AND BILIARY TREE: No shadowing gallstone, pericholecystic fluid or gallbladder wall thickening is demonstrated. The gallbladder wall measures 2.4 mm. The proximal common bile duct measures 4.8 mm, which is within normal limits for the patient''s age. Sonographic Barrett''s sign: Negative. PANCREAS: The pancreas is suboptimally visualized due to overlying bowel gas. RIGHT KIDNEY: The right kidney measures 11.8 cm in length. The renal cortex measures 1.8 cm. Small calcification/nonobstructing stone is seen in the lower pole of the right kidney without evidence of hydronephrosis. US/Gallbladder IMPRESSION: 1. Hepatomegaly and hepatic steatosis. 2. No evidence of gallstones or gallbladder wall thickening. 3. Probable small nonobstructing stone in the right kidney. Electronically Signed: Osorio Diaz MD at 14:51 EDT ,
--- NOTE | 2023-08-17 11:08 | US_ITS ---
STUDY: SECOND AND THIRD TRIMESTER OBSTETRICAL ULTRASOUND - LIMITED REASON FOR EXAM: Female, 22 years old abd pain -- RUQ PAIN LMP: 05/04/2023 PRIOR ULTRASOUND: No relevant prior comparison study available TECHNIQUE: Transabdominal TECHNICAL QUALITY: Adequate. FINDINGS: There is a single intrauterine fetus. The fetus is in variable presentations. There is demonstrated cardiac activity with a heart rate of 158 bpm. There is a normal amniotic fluid volume. The largest amniotic fluid pocket measures 5.3 cm. The amniotic fluid index (RACHEAL) is not measured. The placenta is anterior in location and is not low lying. There are Grade 0 placental changes. The cervix measures 5.5 cm in length. BIOMETRY: BPD: 2.5 cm: 14 weeks, 1 days HC: 9.6 cm: 14 weeks, 3 days AC: 18.2 cm: 14 weeks, 4 days FL: 1.2 cm: 13 weeks, 4 days Age by LMP: 13 weeks, 6 days. YOANDY by LMP: 12/16/2024. age by current US: 14 weeks, 1 days. YOANDY by current US: 02/14/2024. Estimated weight: 89 grams, +/- 13 grams, 48 percentile. US/OB Limited With Biometrics IMPRESSION: Single live intrauterine fetus with an estimated gestational age of 14 weeks and 1 day. YOANDY is 02/14/2024 Electronically Signed: Osorio Diaz MD at 15:08 EDT ,
[2023-08-17 12:00] VITALS: BP 135/76; PULSE 82; RESP 16; O2SAT 98
[2023-08-17 14:00] VITALS: BP 130/72; PULSE 81; RESP 16; O2SAT 98
[2023-08-17 15:21] VITALS: BP 124/65; PULSE 82; RESP 16; TEMP 37.1; O2SAT 98
== END 2023-08-17 15:22 | disposition home or self-care (01) ==
PROVIDERS: Emergency Provider Emergency Medicine; Visit Provider Emergency Medicine
DX: O26.892 Other specified pregnancy related conditions, second trimester (principal); R10.9 Unspecified abdominal pain; Z3A.00 Weeks of gestation of pregnancy not specified
CPT/HCPCS: 76705; 76816; 80048; 80076; 81001; 83690; 84702; 85025; 99283; A4216

== ENCOUNTER 2023-12-07 07:30 | Outpatient (CLI) | payer MEDICAID, SELFPAY ==
--- OUTSIDE RECORDS SUMMARY | 2023-12-07 07:42 | XMS RPT_ITS | CCD ---
Author Organization [facility] Care Team Providers Care Campaign Analyst Name Role Phone PHYSICIAN, PATIENT UNSURE Primary Care Physician Unavailable Liz Thompson Primary Care Provid er PHYSICIAN, NONE Primary Care Physician Unavailab Abimbola Hodges DO Primary Care Provider Beatriz Rodgers MD Unavailable Unavailable Primary Care Provider UnavailKARISSA Madrid MD Admitting Unavailable PHYSICIAN, NONE Primary Care Unavailable KARISSA CHIU MD Attending Unavailable FILI REMY MD Attending Unavailabl e PHYSICIAN, NONE Primary Care Unavailable DR GÉNESIS BLAKE DO Admitting Unavailab ENA Bonilla MD Consulting Unavailable PHYSICIAN, NONE Primary Care Unavailable APURVA SINGH MD Attending Unavailable PHYSICIAN, NONE Primary Care Unavailable RENATE BEAVERS DO Attending Unavailable PHYSICIAN, NONE Primary Care Unavailable APURVA SINGH MD Attending Unavailable PHYSICIAN, NONE Primary Care Unavailable MARYJANE AVILA MD Attending Unavailable FILI REMY MD Attending Unavailabl e PHYSICIAN, NONE Primary Care Unavailable PHYSICIAN, NONE Primary Care Unavailable MARYJANE AVILA MD Attending Unavailable PHYSICIAN, NONE Primary Care Unavailable MARYJANE AVILA MD Attending Unavailable PROVIDER, UNKNOWN Admitting Unavailable PROVIDER, UNKNOWN Attending Unavailable PHYSICIAN, NONE Primary Care Unavailable APURVA SINGH MD Attending Unavailable PHYSICIAN, NONE Primary Care Unavailable APURVA SINGH MD Attending Unavailable PHYSICIAN, NONE Primary Care Unavailable APURVA SINGH MD Consulting Unavailable APURVA SINGH MD Attending Unavailable PHYSICIAN, NONE Primary Care Unavailable JAIDA ROMERO Attending Unav ailable PHYSICIAN, NONE Primary Care Unavailable PHYSICIAN, NONE Primary Care Unavailable APURVA SINGH MD Attending Unavailable PHYSICIAN, NONE Primary Care Unavailable MARYJANE AVILA MD Attending Unavailable PHYSICIAN, NONE Primary Care Unavailable APURVA SINGH MD Attending Unavailable PHYSICIAN, NONE Primary Care Unavailable PHOEBE COLLAZO DO Attending Unavailable PHYSICIAN, NONE Primary Care Unavailable APURVA SINGH MD Attending Unavailable PATTI DUPREE, DR CLARENCE Green Attending [place] PHYSICIAN, NONE Primary Care Unavailable PHYSICIAN, NONE Primary Care Unavailable KASSIE RUBIO MD Attending Unavailable PHYSICIAN, NONE Primary Care Unavailable KASSIE RUBIO MD Attending Unavailable PHYSICIAN, NONE Primary Care Unavailable MARYJANE AVILA MD Attending Unavailable PHYSICIAN, NONE Primary Care Unavailable APURVA SINGH MD Attending Unavailable APURVA SINGH MD Admitting Unavailable APURVA SINGH MD Attending Unavailable PHYSICIAN, NONE Primary Care Unavailable PHYSICIAN, NONE Primary Care Unavailable MELI RODRIGUEZ MD Attending Unavailable PHYSICIAN, NONE Primary Care Unavailable APURVA SINGH MD Attending Unavailable PHYSICIAN, NONE Primary Care Unavailable APURVA SINGH MD Attending Unavailable PHYSICIAN, NONE Primary Care Unavailable APURVA SINGH MD Attending Unavailable PHYSICIAN, NONE Primary Care Unavailable APURVA SINGH MD Attending Unavailable PROVIDER, UNKNOWN Attending Unavailable PHYSICIAN, NONE Primary Care Unavailable PHYSICIAN, NONE Primary Care Unavailable GRANT YANNI DUPREE Attending Unavailable NABIL, ABIMBOLA M Primary Care Unavailable BERONICA FLOYD Referring Unavailable MARIEL BERONICA Philippe Attending Unavailable CLARENCE ARMSTRONG Attending Unavailable NABIL ABIMBOLA Dar Primary Care Unavailable HUY, ESTEVAN L Referring Unavailable CLARENCE ARMSTRONG Attending Unavailable NABIL, ABIMBOLA M Primary Care Unavailable HUY, ESTEVAN L Referring Unavailable KRUEPKE, ABIMBOLA M Primary Care Unavailable HUY, ESTEVAN L Attending Unavailable HUY, ESTEVAN L Referring Unavailable NESSA CHIU Attending Unavailable NABIL, ABIMBOLA M Primary Care Unavailable HUY, ESTEVAN L Referring Unavailable CLARENCE ARMSTRONG Attending Unavailable NABIL, ABIMBOLA M Primary Care Unavailable HUY, ESTEVAN L Referring Unavailable ARMSTRONGCLARENCE Attending Unavailable HUY, ESTEVAN L Referring Unavailable KRUEPKE, ABIMBOLA M Primary Care Unavailable KARINA DESAI Attending UnavailNESSA Deleon Attending Unavailable NABIL, ABIMBOLA M Primary Care Unavailable HUY, ESTEVAN L Referring Unavailable ENA RIVERA Attending Unavailable KRERASMOPKE, ABIMBOLA M Primary Care Unavailable HUY, ESTEVAN L Referring Unavailable KREENA Houston Attending Unavailable KRUEPKE, ABIMBOLA M Primary Care Unavailable HUY, ESTEVAN L Referring Unavailable KRUEPKE, ABIMBOLA M Primary Care Unavailable APURVA SINGH Referring Unavailable LISA MELENDEZ Attending Unavailable NESSA CHIU Attending Unavailable KRUEPKE, ABIMBOLA M Primary Care Unavailable HUY, ESTEVAN L Referring Unavailable ARMSTRONG, PRABHCHARAN P Attending Unavailable KRUEPKE, ABIMBOLA M Primary Care Unavailable HUY, ESTEVAN L Referring Unavailable ARMSTRONG, PRABHCHARAN P Attending Unavailable KRUEPKE, ABIMBOLA M Primary Care Unavailable HUY, ESTEVAN L Referring Unavailable ZACHARY HENRY Attending Unavailable KRUEPKE, ABIMBOLA M Primary Care Unavailable HUY, ESTEVAN L Referring Unavailable ENA RIVEAR Attending Unavailable KRUEPJASMIN, ABIMBOLA M Primary Care Unavailable HUY, ESTEVAN L Referring Unavailable KRUEPKE, ABIMBOLA M Primary Care Unavailable LISA MELENDEZ Attending Unavailable APURVA SINGH Referring Unavailable ZACHARY HENRY Attending Unavailable HUY, ESTEVAN L Referring Unavailable KRUEPKE, ABIMBOLA M Primary Care Unavailable KRUEPKE, ABIMBOLA M Primary Care Unavailable BERONICA FLOYD Referring Unavailable CLARENCE ARMSTRONG Attending Unavailable PHYSICIAN, NONE Primary Care Unavailable APURVA SINGH MD Attending Unavailable BERONICA FLOYD MD Attending Unavailable PHYSICIAN, NONE Primary Care Unavailable PHYSICIAN, NONE Primary Care Unavailable KALA LITTLE DO Attending Unavailable Medications Current Medications Medication Drug Class(es) Dates Sig (Normalized) Sig (Original) acetaminophen 500 mg oral tablet (4 sources) Start: 02-18-2023 Tylenol Extra Strength 500 mg oral tablet Dose : 1,000 mg = 2 tab(s), Oral, q8hr, PRN as needed for pain, # 24 tab(s), 0 Refill(s), Pharmacy: [facility], 160, cm, 02/15/23 13:52:00 EST, Height, kg, 02/15/23 13:52:00 EST, Dosing Weight Start Date: 02/18/23 Status: Ordered Start: 02-15-2023 Tylenol Extra Strength 500 mg oral tablet Dose : 1,000 mg = 2 tab(s), Oral, q8hr, PRN as needed for pain, # 24 tab(s), 0 Refill(s), Pharmacy: [facility], 160, cm, 02/15/23 13:52:00 EST, Height, kg, 02/15/23 13:52:00 EST, Dosing Weight Start Date: 02/15/23 Status: Ordered Start: 11-10-2021 Tylenol Extra Strength 500 mg oral tablet Dose : 1,000 mg = 2 tab(s), Oral, q4h, PRN as needed for pain, # 120 tab(s), 0 Refill(s) Start Date: 11/10/21 Status: Ordered acetaminophen 300 mg / butalbital 50 mg oral tablet (1 source) Barbiturate Start: 04-27-2021 End: 05-17-2021 take 1 tablet by mouth every four hours as needed acetaminophen-butalbital 300 mg-50 mg oral tablet Dose = 1 tab(s), Oral, q4h, PRN as needed, X 10 day(s), # 30 tab(s), 1 Refill(s), [facility]: [facility], 160, cm, 04/27/21 11:21:00 EDT, Height, kg, 03/23/21 11:18:00 EST, Dosing Weight Start Date: 04/27/21 Stop Date: 05/17/21 Status: Ordered acetaminophen 325 mg / butalbital 50 mg / caffeine 40 mg oral tablet (1 source) Barbiturate, Central Nervous System Stimulant, Methylxanthine Start: 10-07-2022 End: 10-21-2022 take 1 tablet by mouth every four hours as needed for headache APAP/butalbital/caffeine 325-50-40 mg oral tablet (Fioricet) Dose = 1 tab(s), Oral, q4h, PRN for headache, X 7 day(s), # 30 tab(s), 1 Refill(s), [facility]: [id number], 162, cm, 10/07/22 10:58:00 EDT, Height, kg, 06/28/22 14:39:00 EDT, Dosing Weight Start Date: 10/07/22 Stop Date: 10/21/22 Status: Ordered acetaminophen 325 mg / oxyCODONE hydrochloride 5 mg oral tablet (2 sources) Opioid Agonist Start: 02-23-2023 End: 03-02-2023 take 1 tablet by mouth every six hours as needed for pain Percocet 5 mg-325 mg oral tablet Dose = 1 tab(s), Oral, q6h, PRN Pain, X 7 day(s), # 24 tab(s), 0 Refill(s), [facility]: [id number], Post-op pain, 160, cm, 02/21/23 10:34:00 EST, Height, 125, kg, 02/21/23 10:34:00 EST, Dosing Weight Start Date: 02/23/23 Stop Date: 03/02/23 Status: Ordered Start: 11-12-2021 End: 11-19-2021 take 1 tablet by mouth every four hours as needed for pain Percocet 5 mg-325 mg oral tablet Dose = 1 tab(s), Oral, q4h, PRN as needed for pain, X 7 day(s), # 28 tab(s), 0 Refill(s), [facility]: [id number], delivery delivered Post-op pain, 162.6, cm, 11/10/21 18:24:00 EDT, Height, 130 Start Date: 11/12/21 Stop Date: 11/19/21 Status: Ordered Alcohol Swabs (19 sources) Start: 11-21-2023 Alcohol Swabs See Instructions, Check 4x/Day, # 1 EA, 0 Refill(s), [facility]: [id number], Gestational diabetes, 160, cm, 11/21/23 9:40:00 EDT, Height, 125, kg, 02/21/23 10:34:00 EST, Dosing Weight Start Date: 11/21/23 Status: Ordered Start: 01-08-2023 Alcohol Swabs See Instructions, Check 4x/Day, # 100 EA, 2 Refill(s), [facility]: [facility][id number], Encounter for supervision of normal in multigravida in third trimester GDM, class A2, 160, cm, 01/04/23 11:32:00 EST, Height, 120, kg, 01/04/23 11:32:00 EST, Dosing Weight Start Date: 01/08/23 Status: Ordered Start: 12-20-2022 Alcohol Swabs See Instructions, Check 4x/Day, # 1 EA, 0 Refill(s), [facility]: [facility] #[id number], Encounter for supervision of normal in multigravida in second trimester Previous section, 170.2, cm, 12/20/22 10:27:00 EST, Height, 118.2, kg, 12/16/22 9:12:00 EDT, Dosing Weight Start Date: 12/20/22 Status: Ordered ALPRAZolam 0.5 mg oral tablet (3 sources) Benzodiazepine Start: 01-15-2021 End: 03-16-2021 ALPRAZolam 0.5 mg oral tablet Dose : 0.5 mg = 1 tab(s), Oral, BID, X 30 day(s), # 60 tab(s), 1 Refill(s), 03/16/21 11:05:00 EST, Pharmacy: [facility], Anxiety, 160, cm, 01/06/21 13:48:00 EST, Height, 128.1, kg, 01/06/21 13:48:00 EST, Dosing Weight Start Date: 01/15/21 Stop Date: 03/16/21 Status: Ordered amoxicillin 500 mg oral capsule (1 source) Penicillin-class Antibacterial Start: 08-30-2023 End: 09-06-2023 take 2 capsules by mouth three times daily amoxicillin (AMOXIL) 500 mg capsule Indications: Chest congestion Take 2 capsules by mouth three times a day for 7 days. 42 capsule 0 08/30/2023 09/06/2023 Active betamethasone 0.5 mg/ml / clotrimazole 10 mg/ml topical cream (3 sources) Azole Antifungal, Corticosteroid Start: 06-02-2021 betamethasone-jermaine trimazole 0.05%-1% topical cream Apply 1 kasia, Topical, BID, # 15 gram(s), 0 Refill(s), Pharmacy: [facility], Cream, 160, cm, 06/02/21 8:53:00 EDT, Height, 109.1 Start Date: 06/02/21 Status: Ordered Blood Glucose Test Machine (18 sources) Start: 01-08-2023 Blood Glucose Test Machine See Instructions, Check 4x/Day, # 1 EA, 0 Refill(s), Pharmacy: [facility] #[id number], Encounter for supervision of normal in multigravida in third trimester GDM, class A2, 160, cm, 01/04/23 11:32:00 EST, Height, 120, kg, 01/04/23 11:32:00 EST, Dosing Weight Start Date: 01/08/23 Status: Ordered Start: 12-20-2022 Blood Glucose Test Machine See Instructions, Check 4x/Day, # 1 EA, 0 Refill(s), Pharmacy: [facility] #[id number], Encounter for supervision of normal in multigravida in second trimester Previous section, 170.2, cm, 12/20/22 10:27:00 EST, Height, 118.2, kg, 12/16/22 9:12:00 EDT, Dosing Weight Start Date: 12/20/22 Status: Ordered Blood Pressure Cuff (2 sources) Start: 02-18-2023 Blood Pressure Cuff See Instructions, Check and Log Blood Pressure Daily, # 1 EA, 0 Refill(s), Pharmacy: [facility], 160, cm, 02/15/23 13:52:00 EST, Height, 81.3, kg, 02/15/23 13:52:00 EST, Dosing Weight Start Date: 02/18/23 Status: Ordered chlorhexidine gluconate 40 mg/ml medicated liquid soap (2 sources) Start: 02-23-2023 apply 0.33 dose topically once daily chlorhexidine 4% topical soap Dose = 0.33 bottle(s), Topical, Daily, Use as need around outer perimeter of incision for 5 days post-op to prevent yeast infection, # 946 mL, 0 Refill(s), Pharmacy: [facility], 160, cm, 02/21/23 10:34:00 EST, Height, kg, 02/21/23 10:34:00 EST, Dosing Weight Start Date: 02/23/23 Status: Ordered ciprofloxacin 500 mg oral tablet (2 sources) Quinolone Antimicrobial Start: 02-09-2021 End: 02-14-2021 ciprofloxacin 500 mg oral tablet Dose : 500 mg = 1 tab(s), Oral, q12h, X 5 day(s), # 10 tab(s), 0 Refill(s), 02/14/21 10:05:00 EST, [facility]: [facility], 162, cm, 02/09/21 9:48:00 EST, Height, 127.8, kg, 02/09/21 9:48:00 EST, Dosing Weight Start Date: 02/09/21 Stop Date: 02/14/21 Status: Ordered cyclobenzaprine hydrochloride 5 mg oral tablet (1 source) Muscle Relaxant Start: 02-15-2023 End: 02-18-2023 cyclobenzaprine 5 mg oral tablet Dose : 5 mg = 1 tab(s), Oral, TID, X 3 day(s), # 9 tab(s), 0 Refill(s), 02/18/23 9:18:00 PM EST, [facility]acy: [facility], 160, cm, 02/15/23 13:52:00 EST, Height, kg, 02/15/23 13:52:00 EST, Dosing Weight Start Date: 02/15/23 Stop Date: 02/18/23 Status: Ordered dicyclomine hydrochloride 20 mg oral tablet (1 source) Anticholinergic Start: 01-25-2021 End: 02-01-2021 take 1 tablet by mouth four times daily Bentyl use dicyclomine Dose : 20 mg =, Oral, QID, # 28 tab(s), 0 Refill(s), Abdominal pain Start Date: 01/25/21 Stop Date: 02/01/21 Status: Ordered docusate sodium 100 mg oral capsule (2 sources) Start: 02-23-2023 Colace 100 mg oral capsule Dose : 100 mg = 1 cap(s), Oral, BID, PRN as needed for constipation, # 60 cap(s), 1 Refill(s), [facility]: [facility][id number], 160, cm, 02/21/23 10:34:00 EST, Height, kg, 02/21/23 10:34:00 EST, Dosing Weight Start Date: 02/23/23 Status: Ordered {21 (Ethinyl Estradiol 0.035 MG / norgestimate 0.25 MG Oral Tablet) / 7 (Inert Ingredients 1 MG Oral Tablet) } Pack [Sprintec 28 Day] (3 sources) Progestin, Estrogen Start: 03-29-2022 End: 02-28-2023 take 1 tablet by mouth once daily Sprintec 0.25 mg-35 mcg oral tablet Dose = 1 tab(s), Oral, qDay, # 84 tab(s), 3 Refill(s), [facility]: [facility] #[id number], 162, cm, 02/18/22 11:25:00 EST, Height Start Date: 03/29/22 Stop Date: 02/28/23 Status: Ordered famotidine 20 mg oral tablet (6 sources) Histamine-2 Receptor Antagonist Start: 01-26-2023 Pepcid 20 mg oral tablet Dose : 20 mg = 1 tab(s), Oral, qDay, # 30 tab(s), 0 Refill(s) Start Date: 01/26/23 Status: Ordered ferrous gluconate 324 mg oral tablet (2 sources) Start: 11-05-2021 End: 01-04-2022 ferrous gluconate 324 mg (38 mg elemental iron) oral tablet Dose : 324 mg = 1 tab(s), Oral, BID, X 30 day(s), # 60 tab(s), 1 Refill(s), 01/04/22 11:07:00 EST, Pharmacy: [facility] #[id number], 162.6, cm, 11/05/21 10:35:00 EDT, Height Start Date: 11/05/21 Stop Date: 01/04/22 Status: Ordered fluconazole 150 mg oral tablet (1 source) Azole Antifungal Start: 11-24-2022 End: 11-28-2022 Diflucan 150 mg oral tablet Dose : 150 mg = 1 tab(s), Oral, qDay, # 2 tab(s), 0 Refill(s), 11/28/22 8:00:00 AM EDT, Pharmacy: [facility] #[id number], 160, cm, 11/24/22 9:35:00 EDT, Height, 121.8, kg, 11/24/22 9:35:00 EDT, Dosing Weight Start Date: 11/24/22 Stop Date: 11/28/22 Status: Ordered fluticasone propionate 0.05 mg/actuat metered dose nasal spray (1 source) Corticosteroid Start: 12-01-2022 take 1 dose nasal route twice daily Flonase 50 mcg/inh nasal spray Dose = 1 spray(s), Nostril, each, BID, # 15.8 mL, 1 Refill(s), [facility]: [id number], 160, cm, 12/01/22 10:39:00 EDT, Height, kg, 11/24/22 9:35:00 EDT, Dosing Weight Start Date: 12/01/22 Status: Ordered glyBURIDE 5 mg oral tablet (3 sources) Sulfonylurea Start: 12-27-2022 End: 03-27-2023 glyBURIDE 5 mg oral tablet Dose : 5 mg = 1 tab(s), Oral, BIDM, # 60 tab(s), 2 Refill(s), [facility]: [facility] #[id number], 170.2, cm, 12/27/22 11:03:00 EST, Height, kg, 12/16/22 9:12:00 EDT, Dosing Weight Start Date: 12/27/22 Stop Date: 03/27/23 Status: Ordered hydrOXYzine hydrochloride 50 mg oral tablet (2 sources) Antihistamine Start: 01-03-2023 End: 04-03-2023 hydrOXYzine hydrochloride 50 mg oral tablet Dose : 50 mg = 1 tab(s), Oral, QID, PRN as needed for itching, X 30 day(s), # 60 tab(s), 2 Refill(s), 04/03/23 8:53:00 AM EST, [facility]: [facility] #[id number], 160, cm, 01/03/23 8:41:00 EST, Height, kg, 12/28/22 0:21:00 EST, Dosing Weight Start Date: 01/03/23 Stop Date: 04/03/23 Status: Ordered ibuprofen 600 mg oral tablet (4 sources) Nonsteroidal Anti-inflammatory Drug Start: 02-23-2023 ibuprofen 600 mg oral tablet Dose : 600 mg = 1 tab(s), Oral, q6h, PRN for pain, Take with food or milk., # 40 tab(s), 0 Refill(s), [facility]: [facility] #[id number], 160, cm, 02/21/23 10:34:00 EST, Height, kg, 02/21/23 10:34:00 EST, Dosing Weight Start Date: 02/23/23 Status: Ordered Start: 09-11-2018 End: 12-02-2021 ibuprofen 600 mg oral tablet Dose : 600 mg = 1 tab(s), Oral, q6h, PRN for pain, Take with food or milk., X 10 day(s), # 30 tab(s), 1 Refill(s), 12/02/21 7:48:00 EDT, Pharmacy: [facility] #[id number], 162.6, cm, 11/10/21 18:24:00 EDT, Height Start Date: 11/12/21 Stop Date: 12/02/21 Status: Ordered insulin detemir 100 unt/ml injectable solution (11 sources) Insulin Analog Start: 02-09-2023 insulin detemi r (Levemir) 100 units/mL subcutaneous solution See Instructions, 0.28 Subcutaneous qHS, 0 Refill(s) Start Date: 02/09/23 Status: Ordered Start: 01-26-2023 Levemir 100 un its/mL 10 mL vial 28, Subcutaneous, qHS, 0 Refill(s) Start Date: 01/26/23 Status: Ordered Start: 01-26-2023 inject 1 dose by sub cutaneous injection once daily at bedtime Levemir 100 units/mL 10 mL vial Dose : 24 unit(s) =, Subcutaneous, qHS, 0 Refill(s) Start Date: 01/26/23 Status: Ordered NIFEdipine 10 mg oral capsule (2 sources) Dihydropyridine Calcium Channel Kacy Start: 11-12-2022 End: 11-17-2022 NIFEdipine 10 mg oral capsule Dose : 10 mg = 1 cap(s), Oral, TID, take 3 caps for loading dose followed by 1 cap oral q 8 hours for contractions, # 18 cap(s), 0 Refill(s), Pharmacy: [facility] #[id number], 160, cm, 11/12/22 9:56:00 EDT, Height, kg, 11/12/22 9:56:00 EDT, Dosing Weight Start Date: 11/12/22 Stop Date: 11/17/22 Status: Ordered nitrofurantoin, macrocrystals 100 mg oral capsule (1 source) Nitrofuran Antibacterial Start: 01-06-2021 End: 01-13-2021 Macrobid 100 mg oral capsule Dose : 100 mg = 1 cap(s), Oral, BID, Take with food, X 7 day(s), # 14 cap(s), 0 Refill(s), 01/13/21 14:06:00 EST, [facility]: [facility], UTI (urinary tract infection), 160, cm, 01/06/21 13:48:00 EST, Height, 128.1, kg, 01/06/21 13:48:00... Start Date: 01/06/21 Stop Date: 01/13/21 Status: Ordered nitrofurantoin, macrocrystals 25 mg / nitrofurantoin, monohydrate 75 mg oral capsule (2 sources) Nitrofuran Antibacterial Start: 01-03-2023 Macrobid 100 mg oral capsule Dose : 100 mg = 1 cap(s), Oral, qDay, Take with food, # 30 cap(s), 2 Refill(s), [facility]: [facility] #[id number], 160, cm, 12/28/22 0:21:00 EST, Height, 122.8, kg, 12/28/22 0:21:00 EST, Dosing Weight Start Date: 01/03/23 Status: Ordered Start: 12-28-2022 End: 01-02-2023 Macrobid 100 mg oral capsule Dose : 100 mg = 1 cap(s), Oral, BID, Take with food, X 5 day(s), # 10 cap(s), 0 Refill(s), 01/02/23 9:19:00 AM EST, [facility]: [facility] #[id number], 160, cm, 12/28/22 0:21:00 EST, Height, 122.8, kg, 12/28/22 0:21:00 EST, Dosing Weight Start Date: 12/28/22 Stop Date: 01/02/23 Status: Ordered nystatin 100 unt/mg topical ointment (4 sources) Polyene Antifungal Start: 09-08-2023 End: 11-07-2023 nystatin 100,000 units/g topical ointment Apply 1 kasia, Topical, BID, X 30 day(s), # 30 gram(s), 1 Refill(s), [facility]: [facility] #[id number], Ointment, 160, cm, 09/08/23 9:01:00 EDT, Height, 125, kg, 02/21/23 10:34:00 EST, Dosing Weight Start Date: 09/08/23 Stop Date: 11/07/23 Status: Ordered Start: 11-12-2021 End: 2021 nystatin 100,000 units/g top ical cream Apply 1 kasia, Topical, TID, X 7 day(s), # 30 gram(s), 1 Refill(s), Pharmacy: [facility] #[id number], 162.6, cm, 11/10/21 18:24:00 EDT, Height, 130 Start Date: 11/12/21 Stop Date: 11/26/21 Status: Ordered ondansetron 4 mg oral tablet (20 sources) Serotonin-3 Receptor Antagonist Start: 03-31-2021 End: 03-26-2022 Zofran 4 mg oral tablet Dose : 4 mg = 1 tab(s), Oral, q6h, PRN Nausea/Vomiting, X 90 day(s), # 20 tab(s), 3 Refill(s), 03/26/22 13:50:00 EST, [facility]: [facility], Nausea/vomiting in , 160, cm, 03/31/21 13:33:00 EST, Height, kg, 03/23/21 11:18:00 EST... Start Date: 03/31/21 Stop Date: 03/26/22 Status: Ordered ondansetron HCl (ZOFRAN ORAL) Take by mouth. 0 Active Comment on above: Take by mouth. pantoprazole 40 mg delayed release oral tablet (3 sources) Proton Pump Inhibitor Start: 3 End: 4 Protonix 40 mg oral enteric coated tablet Dose : 40 mg = 1 tab(s), Oral, qDay, # 30 tab(s), 5 Refill(s), Pharmacy: [facility] #[id number], 162, cm, 10/25/22 11:38:00 EDT, Height, kg, 06/28/22 14:39:00 EDT, Dosing Weight Start Date: 10/25/22 Stop Date: 04/23/23 Status: Ordered PrenaPlus (12 sources) Start: 3 take 1 tablet by mouth once daily PrenaPlus Dose = 1 tab(s), Oral, qDay, 0 Refill(s) Start Date: 01/26/23 Status: Ordered 19 ([place]) oral tablet (18 sources) Start: 2 take 1 tablet by mouth once daily 19 ([place]) oral tablet Dose = 1 tab(s), Oral, qDay, of choice, # 100 tab(s), 2 Refill(s), [facility]: [facility], 160, cm, 03/31/21 13:33:00 EST, Height, kg, 03/23/21 11:18:00 EST, Dosing Weight Start Date: 03/31/21 Status: Ordered Multivitamins with Vitamin B Complex, Vitamin C, Minerals and L-Methylfolate oral capsule (16 sources) Start: 3 take 1 capsule by mouth once daily Multivitamins with Vitamin B Complex, Vitamin C, Minerals and L-Methylfolate oral capsule Dose = 1 cap(s), Oral, Daily, 0 Refill(s) Start Date: 08/26/22 Status: Ordered vit,alexander 74/iron/folic ( VITAMIN 1+1 ORAL) (2 sources) vit,alexander 74/iron/folic ( VITAMIN 1+1 ORAL) Take by mouth. 0 Active Comment on above: Take by mouth. rizatriptan 10 mg oral tablet (4 sources) Serotonin-1b and Serotonin-1d Receptor Agonist Start: 3 Maxalt 10 mg oral tablet Dose : 10 mg = 1 tab(s), Oral, q2h, PRN as needed for migraine headache, # 12 tab(s), 1 Refill(s), [facility]: [id number], 162, cm, 10/25/22 11:38:00 EDT, Height, kg, 06/28/22 14:39:00 EDT, Dosing Weight Start Date: 10/25/22 Status: Ordered Start: 11-10-2021 Maxalt 10 mg o ral tablet Dose : 10 mg = 1 tab(s), Oral, Once, PRN as needed for migraine headache, # 6 tab(s), 0 Refill(s) Start Date: 11/10/21 Status: Ordered sertraline 50 mg oral tablet (13 sources) Serotonin Reuptake Inhibitor Start: 01-21-2022 take 1 tablet by mouth once daily sertraline 50 mg oral tablet take 1 tablet by mouth once daily Start Date: 01/21/22 Status: Ordered Start: 10-14-2020 End: 04-12-2021 sertraline 100 mg oral table t Dose : 100 mg = 1 tab(s), Oral, qDay, # 90 tab(s), 1 Refill(s), [facility]: [facility] [place] [id number], 162.6, cm, 09/23/20 10:26:00 EDT, Height, kg, 10/09/20 9:38:00 EDT, Dosing Weight Start Date: 10/14/20 Stop Date: 04/12/21 Status: Ordered take 1 tablet by shirin th once daily sertraline HCl (ZOLO[place] ORAL) Take 1 tablet by mouth once daily. 0 Active Comment on above: Take 1 tablet by shirin th once daily. Sprintec 0.25 mg-35 mcg oral tablet (5 sources) Start: 12-19-19 End: 11-20-19 take 1 tablet by mouth once daily Sprintec 0.25 mg-35 mcg oral tablet Dose = 1 tab(s), Oral, qDay, # 84 tab(s), 3 Refill(s), [facility], 162.6, cm, 09/23/20 10:26:00 EDT, Height, kg, 12/18/20 8:29:00 EDT, Dosing Weight Start Date: 12/18/20 Stop Date: 11/19/21 Status: Ordered sulfamethoxazole 800 mg / trimethoprim 160 mg oral tablet (2 sources) Dihydrofolate Reductase Inhibitor Antibacterial, Sulfonamide Antimicrobial Start: 12-31-19 End: 01-07-20 take 1 tablet by mouth every twelve hours Bactrim DS 800 mg-160 mg oral tablet 491.2 mg, Oral, q12h, Dosage expressed as trimethoprim, X 7 day(s), # 14 tab(s), 0 Refill(s), [facility]: [facility] #[id number], 160, cm, 12/30/22 9:04:00 EST, Height, 122.8, kg, 12/28/22 0:21:00 EST, Dosing Weight Start Date: 12/30/22 Stop Date: 01/06/23 Status: Ordered Start: 08-26-2022 End: 09-02-2022 take 1 tablet by mouth twice daily Bactrim DS 800 mg-160 mg oral tablet Dose = 1 tab(s), Oral, BID, X 7 day(s), # 14 tab(s), 0 Refill(s), [id number], 162, cm, 08/26/22 10:52:00 EDT, Height, 123.8 Start Date: 08/26/22 Stop Date: 09/02/22 Status: Ordered {10 (nirmatrelvir 150 MG Ora l Tablet) / 10 (ritonavir 100 MG Oral Tablet) } Pack [Paxlovid 150 MG /100 MG Dose Pack] (2 sources) Start: 02-10-2023 End: 02-15-2023 Paxlovid 150 mg-100 mg Dose Pack oral tablet Dose = 1 packet(s), Oral, BID, Take 1 Packet = One 150mg nirmatrelvir tab and one 100mg ritonavir tab. 2 tablets to be taken together by mouth twice a day for 5 days, X 5 day(s), # 5 EA, 0 Refill(s), Pharmacy: [facility], 160, cm, 02/09/23 12:52:00 EST, Height, kg, 02/09/23 12:52:00 EST, Dosing Weight Start Date: 02/10/23 Stop Date: 02/15/23 Status: Ordered Completed/Discontinued Medications Medication Drug Class(es) Dates Sig (Normalized) Sig (Original) Keflex (2 sources) Cephalosporin Antibacterial Start: 11-09-2022 End: 11-16-2022 Keflex Dose : 500 mg =, Oral, BID, 0 Refill(s), 123.8 Start Date: 11/09/22 Stop Date: 11/16/22 Status: Ordered ferrous sulfate 325 mg oral tablet (11 sources) Start: 01-26-2023 End: 05-24-2023 IRON (ferrous sulfate 325 mg) 65 mg oral tablet Dose : 325 mg = 1 tab(s), Oral, qDay, # 30 tab(s), 2 Refill(s), [id number], 160, cm, 02/21/23 10:34:00 EST, Height, kg, 02/21/23 10:34:00 EST, Dosing Weight Start Date: 02/23/23 Stop Date: 05/24/23 Status: Ordered Start: 01-05-2023 ferrous sulfat e 325 mg (65 mg elemental iron) oral delayed release tablet Dose : 325 mg = 1 tab(s), Oral, qDay, # 30 tab(s), 3 Refill(s), [id number], 160, cm, 01/04/23 11:32:00 EST, Height, kg, 01/04/23 11:32:00 EST, Dosing Weight Start Date: 01/05/23 Status: Ordered FLOWFLEX COVID-19 AG HOME TEST (9 sources) Start: 06-14-2021 FLOWFLEX COVID -19 AG HOME TEST FLOWFLEX COVID-19 AG HOME TEST, 0 Refill(s), 109.1 Start Date: 06/14/21 Status: Ordered insulin glargine (Toujeo) (concentrated) 300 units/mL subcutaneous solution (4 sources) Start: 11-28-2023 inject 0.2 mL by subcutaneous injection once daily insulin glargine (Toujeo) (concentrated) 300 units/mL subcutaneous solution Dose : 60 unit(s) =, Subcutaneous, qDay, rotate injection sites, 0.2 ml /day, # 4.5 mL, 4 Refill(s), [id number], Gestational diabetes mellitus, delivered 28 weeks gestation of , 160, cm, 11/28/23 10:05:00 EDT, Height, kg, 02/21/23 10:34:00 EST, Dosing Weight Start Date: 11/28/23 Status: Ordered Start: 01-08-2023 inject 0.2 mL by sub cutaneous injection once daily insulin glargine (Toujeo) (concentrated) 300 units/mL subcutaneous solution Dose : 60 unit(s) = 0.2 mL, Subcutaneous, qDay, # 6 mL, 4 Refill(s), [facility]: [id number], 160, cm, 01/04/23 11:32:00 EST, Height, kg, 01/04/23 11:32:00 EST, Dosing Weight Start Date: 01/08/23 Status: Ordered promethazine hydrochloride 25 mg oral tablet (12 sources) Phenothiazine Start: 07-20-2021 End: 07-27-2021 promethazine 25 mg oral tablet Dose : 25 mg = 1 tab(s), Oral, q6h, PRN Headache, # 30 tab(s), 0 Refill(s), [id number], 160, cm, 07/20/21 11:06:00 EDT, Height Start Date: 07/20/21 Stop Date: 07/27/21 Status: Ordered ursodiol 300 mg oral capsule (7 sources) Bile Acid Start: 01-10-2023 End: 03-11-2023 ursodiol 300 mg oral capsule Dose : 300 mg = 1 cap(s), Oral, TID, # 90 cap(s), 1 Refill(s), [facility]: [id number], 160, cm, 01/10/23 8:25:00 EST, Height, kg, 01/04/23 11:32:00 EST, Dosing Weight Start Date: 01/10/23 Stop Date: 03/11/23 Status: Ordered Problems Active Problems Problem Classification Problem Date Documented Date Episodic/Chronic Abdominal pain (2 sources) Abdominal pain; Translations: [Unspecified abdominal pain] Onset: 01-25-2021 Episodic Anxiety disorders (20 sources) Anxiety 01-23-2020 Chronic Calculus of urinary tract (20 sources) Kidney stone 01-23-2020 Episodic Cardiac dysrhythmias (1 source) Palpitations; Translations: [Palpitations] Onset: 06-14-2021 Episodic Conditions associated with dizziness or vertigo (1 source) Dizziness and giddiness; Translations: [Dizziness and giddiness] Onset: 11-09-2023 Episodic Contraceptive and procreative management (20 sources) Intrauterine contraceptive device in situ; Translations: [Contraception status] 10-09-2020 Episodic Diabetes or abnormal glucose tolerance complicating ; childbirth; or the puerperium (18 sources) Gestational diabetes mellitus, class A>2< ; Translations: [Gestational diabetes mellitus in childbirth, unspecified control] Onset: 10-14-2024 11-13-2023 Episodic Early or threatened labor (3 sources) False labor before 37 completed weeks of gestation; Translations: [False labor before 37 completed weeks of gestation, unspecified trimester] Onset: 11-12-2022 Episodic Genitourinary symptoms and ill-defined conditions (20 sources) Urinary symptoms 08-26-2022 Episodic Headache; including migraine (20 sources) Migraine; Translations: [Refractory migraine] Onset: 09-11-2016 Resolved: 09-12-2016 01-23-2020 Chronic Hemorrhage during ; abruptio placenta; placenta previa (3 sources) Threatened miscarriage; Translations: [Threatened ] Episodic Menstrual disorders (20 sources) Amenorrhea 08-26-2022 Chronic Mood disorders (20 sources) Depressive disorder 01-23-2020 Chronic Other aftercare (20 sources) Surgical follow-up 11-19-2021 Episodic Other circulatory disease (1 source) Pulmonary congestion ; Translations: [Other specified symptoms and signs involving the circulatory and respiratory systems] 08-30-2023 Episodic Other complications of ; puerperium affecting management of mother (20 sources) delivery - delivered; Translations: [Encounter for delivery without indication] Onset: 11-12-2021 06-05-2020 Episodic Other complications of (20 sources) Urinary tract infection in 11-14-2022 Episodic Other complications of (13 sources) Cholestasis of 01-10-2023 Episodic Other female genital disorders (20 sources) Abnormal uterine bleeding 03-11-2022 Chronic Other liver diseases (13 sources) Elevated liver enzymes level 01-10-2023 Episodic Other lower respiratory disease (1 source) Cough; Translations: [Acute cough] 08-30-2023 Episodic Other nervous system disorders (1 source) Postoperative pain ; Translations: [Other acute postprocedural pain] Onset: 11-12-2021 Episodic Other nutritional; endocrine; and metabolic disorders (20 sources) Body mass index 30+ - obesity 07-25-2017 Chronic Other and delivery including normal (20 sources) ; Translations: [Normal ] Onset: 02-14-2021 03-31-2021 Episodic Other screening for suspected conditions (not mental disorders or infectious disease) (2 sources) Possible ; Translations: [Encounter for test, result unknown] Episodic Residual codes; unclassified (2 sources) Gestational age unknown ; Translations: [Weeks of gestation of not specified] Episodic Residual codes; unclassified (2 sources) 28 weeks gestation of ; Translations: [28 weeks gestation of ] Onset: 11-28-2023 Episodic Unclassified (20 sources) Patient encounter status 08-07-2020 Past or Other Problems Problem Classification Problem Date Documented Date Episodic/Chronic Disorders usually diagnosed in infancy, childhood, or adolescence (1 source) Attention deficit hyperactivity disorder, predominantly inattentive type; Translations: [Other specified behavioral and emotional disorders with onset usually occurring in childhood and adolescence] Onset: 07-01-2011 Resolved: 03-07-2015 04-08-2022 Chronic Inflammation; infection of eye (except that caused by tuberculosis or sexually transmitteddisease) (1 source) Acute conjunctivitis; Translations: [Unspecified acute conjunctivitis, unspecified eye] Onset: 05-15-2013 Resolved: 03-07-2015 04-08-2022 Episodic Other complications of ; puerperium affecting management of mother (1 source) Teenage ; Translations: [Teen ] Onset: 07-06-2018 07-06-2018 Episodic Other complications of (2 sources) Supervision of high risk , unspecified, unspecified trimester; Translations: [Supervision of high risk , unspecified, unspecified trimester] Onset: 02-16-2023 Episodic Other complications of (2 sources) Liver and biliary tract disorders in , unspecified trimester; Translations: [Liver and biliary tract disorders in , unspecified trimester] Onset: 01-17-2023 Episodic Other complications of (2 sources) Supervision of other high risk pregnancies, third trimester; Translations: [Supervision of other high risk pregnancies, third trimester] Onset: 01-12-2023 Episodic Other nutritional; endocrine; and metabolic disorders (1 source) Childhood obesity; Translations: [Body mass index (BMI) pediatric, greater than or equal to 95th percentile for age] Onset: 05-05-2016 09-12-2016 Episodic Other upper respiratory infections (1 source) Acute upper respiratory infection; Translations: [Acute upper respiratory infection, unspecified] Onset: 05-15-2013 Resolved: 03-07-2015 04-08-2022 Episodic Otitis media and related conditions (1 source) Acute otitis media; Translations: [Otitis media, unspecified, unspecified ear] Onset: 12-24-2013 Resolved: 03-07-2015 03-07-2015 Episodic Residual codes; unclassified (1 source) Impulsive character; Translations: [Impulsiveness] Onset: 04-14-2010 Resolved: 03-07-2015 03-07-2015 Episodic Skin and subcutaneous tissue infections (1 source) Abscess of foot, except toe; Translations: [Cellulitis of unspecified part of limb] Onset: 09-01-2005 Resolved: 03-25-2015 03-25-2015 Episodic NEGATED: Highlighted row has been ruled out!Unclassified (2 sources) No known active problems 04-14-2021 Results Test Name Value Interpretation Reference Range Facility Progress Noteon 12-01-2023 Acetone Button Paster Authentication Interface Message Text I called pt after reviewing BS log that was sent in. She has not started any insulin. NPH 20u in am and 20u @ HS. Prescribed to pharmacy. Pt needs to have nutrition scheduled and has a follow up on Tuesday12/05/23. Normal [facility] Progress Noteon 11-30-2023 Acetone Button Paster Authentication Interface Message Text Pt seen for consult by Dr Melenedz. Dexcom G7 set up for pt and she is now sharing data with [facility]. Prescribed G7, pen needles (previous OB called in insulin pens and did not supply needles. Also prescribed daily keflex for recurrent UTIs in . Pt is to take 15u of trujeo @ HS and have follow up appt telehealth on Tuesday12/05/23 for review of BS. Please see consult note. Normal [facility] Acetone Button Paster Authentication Interface Message Text [facility] Gestational Diabetes Consult I was asked to provide a consultation by Apurva Singh MD on Lester Infante who is a 23 y.o. year old female. . Patient's last menstrual period was 05/10/2023. with 29w1d. She is here for counseling regarding gestational diabetes. The patient has already started recording glucose values. Does not have values with her today, will call with them later today. Fastin-130 After Breakfast: 170s After Lunch: 160s After Dinner: 160-170s Obstetrical History: OB History Para Term AB Living 6 5 4 1 4 SAB IAB Ectopic Multiple Live Births 4 # Outcome Date GA Lbr Dru/2nd Weight Sex Type Anes PTL Lv 6 Current 5 Term 02/21/23 37w1d 3.12 kg M CS-LTranv Comments: cholestasis, GDMA2 4 11/10/21 36w6d 3.949 kg F CS-LTranv Spinal MELISSA Comments: decreased movement Complications: Intolerance 3 Term 06/06/20 39w1d 4.288 kg M CS-LTranv Spinal MELISSA 2 Term 07/16/19 39w0d 3.77 kg F CS-LTranv Spinal MELISSA 1 Term 11/21/17 37w0d 3.77 kg M CS-Unspec EPI MELISSA Complications: Intolerance, Cephalopelvic Disproportion Confirmed Past Medical History: Past Medical History: Diagnosis Date Anxiety At high risk for infection 01/14/2023 Risk for Infectious Diseases: We reviewed prevention strategies for maternal-infant protection against infectious illnesses. Covid infection risk- vaccination, including Boosters if not already concluded is recommended. She decided against it. Seasonal Flu: Vaccination in available in Oct-Mar window and is recommended. Depression Gestational diabetes mellitus (GDM) Migraine headache Obesity Confirmed Surgical History Significant for 5 Low transverse cesareans Dictaphone Operator History significant for x3 UTI in Social History: Denies Pertinent Family History/Genetic History: Denies Pertinent Outpatient Medications Marked as Taking for the 11/30/23 encounter (Office Visit) with [facility] [facility] [facility] Medication Sig Dispense Refill BUTALBITAL-ACETAMINOPHEN PO Take 1 Capsule by mouth 4 times daily as needed RA ALCOHOL SWABS 70 % PADS Blood Glucose Monitoring Suppl (ONE TOUCH ULTRA 2) w/Device KIT use as directed to CHECK BLOOD SUGAR four times a day FREESTYLE PRECISION DANAY TEST test strip FREESTYLE LANCETS [facility] Vit w/Pi-Sqspabbdc-BK (PNV PO) Take 1 Tablet by mouth daily ConfirmedNot taking butalbital, has not started insulin Review of Systems: Denies unless above PHYSICAL EXAMINATION: Physical Examination: General appearance - alert, well appearing, and in no distress Mental status - alert, oriented to person, place, and time Chest - No difficulty with breathing Heart - Normal Rate Abdomen - No no CVS, no suprapubic tenderness. Pelvic - Deferred Extremities - no pedal edema noted Skin: Clear without rash On Ultrasound Exam: 1. Single living intrauterine at 29.1 wga with biometry consistent with clinical dates. 2. Incomplete anatomic survey. The anatomy survey that was completed today was unremarkable. No malformations visualized within the limitations of sonographic evaluation at this gestational age, position, and maternal acoustic properties. 3. Amniotic fluid appeared normal. 4. Placenta is anterior, grade 2, thick/lobular. Impression and recommendations: Gestational Diabetes is a condition that develops during from placental mediated insulin resistance. After discussion of the diagnosis GDM, we then discussed the many risk factors but not limited to the following, including maternal - Pre-Eclampsia increased risk (9.8% vs 18%) with fasting BGTs under or over 115 respectively. There is a increase in : 2.5x for GDM controlled by medication and 1.5-2x the rate for GDM that are diet controlled compared to the baseline rate. risks include , Shoulder Dystocia and injury, LGA, NICU admission, Jaundice, Stillbirth, and respiratory distress. Adequate treatment leads to a reduction in many risk factors including; Pre-E 6% RR (18%->12%), LGA 9% RR (22%->13%), Birthweight >4000g 11% RR (21%->10% ), and decreased rate of shoulder dystocia. These risks are on a continuous relationship with glucose control. In order to maintain adequate glucose control at goal we may need to initiate insulin. Insulin does not cross the placenta, if started it is common to need to continue to increase the dose due to increasing hormonal insulin resistance from the placenta. nursing home health: Patient will require repeat 2 hr 75g OGTT after delivery to ensure resolution of diabetes. Developing future DM is 70% within 25 years and even higher for specific risk groups 60% within 5 years. Future pregnancies have a 40% recurrence rate of GDM. Treatment: Diet: Carbohydrates 33-40% and when eating carbohydrates - they should be complex carbs. Protein and Fat should (more content not included)... Normal [facility] FFNon 11-28-2023 Fibronectin Negative Normal Negative [facility] Comment on above: Performed By: #### F FN #### [place] [id number] LABORATORYOrdered By: Nataliia Diaz on 11-28-2023 Fibronectin. Ql (Vag fld) Negative (11/28/23 2:17 PM) Normal Negative Manual Chem SS .GFRon 11-10-2023 GFR 143 ml/min/1.73sqm Normal [facility] Comment on above: Result Comment: GFR Population mean for , Non- Americans Ages 20-29 = 116 mL/min/1.73 sq.m. Ages 30-39 = 107 mL/min/1.73 sq.m. Ages 40-49 = 99 mL/min/1.73 sq.m. Ages 50-59 = 93 mL/min/1.73 sq.m. Ages 60-69 = 85 mL/min/1.73 sq.m. Ages 70+ = 75 mL/min/1.73 sq.m. Chronic Kidney Disease: Less than 60 mL/min/1.73 square meters End Stage Renal Disease: Less than 15 mL/min/1.73 square meters Performed By: #### A 1C, GFR, CMP #### [place] [address] [place], [place] [address] GFR Non- 118 ml/min/1.73sqm Normal [facility] Comment on above: Result Comment: GFR Population mean for , Non- Americans Ages 20-29 = 116 mL/min/1.73 sq.m. Ages 30-39 = 107 mL/min/1.73 sq.m. Ages 40-49 = 99 mL/min/1.73 sq.m. Ages 50-59 = 93 mL/min/1.73 sq.m. Ages 60-69 = 85 mL/min/1.73 sq.m. Ages 70+ = 75 mL/min/1.73 sq.m. Chronic Kidney Disease: Less than 60 mL/min/1.73 square meters End Stage Renal Disease: Less than 15 mL/min/1.73 square meters Performed By: #### A 1C, GFR, CMP #### [place] [address] [place], [place] [address] A1Con 11-10-2023 Glucose [Mass/Vol] 108 mg/dL Normal [facility] Comment on above: Result Comment: Parvin mated Average Glucose calculated by equation ((28.7xA1C)-46.7) Estimated average glucose (eAG) is a calculated value from Hemoglobin A1C and is customer operations representative of the average blood glucose level in the last 2-3 month period. Normal range: less than 114 mg/dL Performed By: #### A 1C, GFR, CMP #### [place] [id number] HbA1c (Bld) [Mass fraction] 5.4 % Normal 4.3-6.4 [facility] Comment on above: Performed By: #### A 1C, GFR, CMP #### [place] [id number] CMPon 11-10-2023 Albumin Level 2.5 G/dL Low 3.5-5.0 [facility] Comment on above: Performed By: #### A 1C, GFR, CMP #### [place] [address] Albumin/Globulin [Mass ratio] 0.6 {ratio} Low 1.1-2.5 [facility] Comment on above: Performed By: #### A 1C, GFR, CMP #### [place] [address] ALP [Catalytic activity/Vol] 134 U/L Normal 40-135 [facility] Comment on above: Performed By: #### A 1C, GFR, CMP #### [place] [address] ALT [Catalytic activity/Vol] 27 U/L Normal 14-59 [facility] Comment on above: Performed By: #### A 1C, GFR, CMP #### [place] [id number] AST [Catalytic activity/Vol] 17 U/L Normal 10-40 [facility] Comment on above: Performed By: #### A 1C, GFR, CMP #### [place] [id number] Bili Total 0.3 mg/dL Normal 0.2-1.0 [facility] Comment on above: Result Comment: Use of this assay is not recommended for patients undergoing treatment with eltrombopag due to the potential for falsely elevated results. Performed By: #### A 1C, GFR, CMP #### [place] [id number] BUN/Creatinine Ratio 10 ratio Normal 7-27 [facility] Comment on above: Performed By: #### A 1C, GFR, CMP #### [place] [address] Calcium [Mass/Vol] 8.6 mg/dL Normal 8.4-10.2 [facility] Comment on above: Performed By: #### A 1C, GFR, CMP #### [place] [address] Chloride [Moles/Vol] 103 mmol/L Normal 98-107 [facility] Comment on above: Performed By: #### A 1C, GFR, CMP #### [place] [address] CO2 [Moles/Vol] 24 mmol/L Normal 22-29 [facility] Comment on above: Performed By: #### A 1C, GFR, CMP #### [place] [address] Creatinine [Mass/Vol] 0.63 mg/dL Normal 0.55-1.02 [facility] Comment on above: Result Comment: Test ing performed on Siemens Dimension EXL analyzer using a modified kinetic Bryce technique. Performed By: #### A 1C, GFR, CMP #### [place] [address] Electrolyte Balance 12.0 mEq/L Normal 4.0-15.0 [facility] Comment on above: Performed By: #### A 1C, GFR, CMP #### [place] [address] Globulin 4.2 G/dL Normal [facility] Comment on above: Performed By: #### A 1C, GFR, CMP #### [place] [address] Glucose [Mass/Vol] 160 mg/dL High 70-105 [facility] Comment on above: Performed By: #### A 1C, GFR, CMP #### [place] [address] Potassium [Moles/Vol] 3.7 mmol/L Normal 3.5-5.1 [facility] Comment on above: Performed By: #### A 1C, GFR, CMP #### [address] [address] Sodium [Moles/Vol] 139 mmol/L Normal 136-145 [facility] Comment on above: Performed By: #### A 1C, GFR, CMP #### [address] [address] Total Protein 6.7 G/dL Normal 6.4-8.2 [facility] Comment on above: Performed By: #### A 1C, GFR, CMP #### [address] [address] Urea nitrogen [Mass/Vol] 6 mg/dL Low 7-18 [facility] Comment on above: Performed By: #### A 1C, GFR, CMP #### [address] [address] GLFon 11-10-2023 Glucose [Mass/Vol] 107 mg/dL Normal 83-110 [facility] Comment on above: Performed By: #### G LF #### [address] [address] LABORATORYOrdered By: SYSTEM SYSTEM on 11-10-2023 Albumin BCP dye [Mass/Vol] 2.5 G/dL Low 3.5 - 5.0 G/dL AO ADM SS Albumin/Globulin [Mass ratio] 0.6 {ratio} Low 1.1 - 2.5 ratio AO ADM SS ALP [Catalytic activity/Vol] 134 U/L Normal 40 - 135 U/L AO ADM SS ALT With P-5'-P [Catalytic activity/Vol] 27 U/L Normal 14 - 59 U/L AO ADM SS AST With P-5'-P [Catalytic activity/Vol] 17 U/L Normal 10 - 40 U/L AO ADM SS Bilirubin [Mass/Vol] 0.3 mg/dL Normal 0.2 - 1 .0 mg/dL AO ADM SS Comment on above: Interpretive Data: U se of this assay is not recommended for patients undergoing treatment with eltrombopag due to the potential for falsely elevated results. Calcium [Mass/Vol] 8.6 mg/dL Normal 8.4 - 10. 2 mg/dL AO ADM SS Chloride [Moles/Vol] 103 mmol/L Normal 98 - 10 7 mmol/L AO ADM SS CO2 [Moles/Vol] 24 mmol/L Normal 22 - 29 mmol/L AO ADM SS Creatinine [Mass/Vol] 0.63 mg/dL Normal 0.55 - 1.02 mg/dL AO ADM SS Comment on above: Interpretive Data: T esting performed on [employer] Dimension EXL analyzer using a modified kinetic Bryce technique. Electrolyte Balance 12.0 mEq/L Normal 4.0 - 15 .0 mEq/L AO ADM SS GFR/1.73 sq M.predicted among blacks MDRD (S/P/Bld) [Vol rate/Area] 143 ml/min/1.73sqm Invalid Interpretation Code AO Chemistry S Comment on above: Interpretive Data: GFR Population mean for , Non- Americans Ages 20-29 = 116 mL/min/1.73 sq.m. Ages 30-39 = 107 mL/min/1.73 sq.m. Ages 40-49 = 99 mL/min/1.73 sq.m. Ages 50-59 = 93 mL/min/1.73 sq.m. Ages 60-69 = 85 mL/min/1.73 sq.m. Ages 70+ = 75 mL/min/1.73 sq.m. Chronic Kidney Disease: Less than 60 mL/min/1.73 square meters End Stage Renal Disease: Less than 15 mL/min/1.73 square meters GFR/1.73 sq M.predicted among non-blacks MDRD (S/P/Bld) [Vol rate/Area] 118 ml/min/1.73sqm Invalid Interpretation Code AO Chemistry S Comment on above: Interpretive Data: GFR Population mean for , Non- Americans Ages 20-29 = 116 mL/min/1.73 sq.m. Ages 30-39 = 107 mL/min/1.73 sq.m. Ages 40-49 = 99 mL/min/1.73 sq.m. Ages 50-59 = 93 mL/min/1.73 sq.m. Ages 60-69 = 85 mL/min/1.73 sq.m. Ages 70+ = 75 mL/min/1.73 sq.m. Chronic Kidney Disease: Less than 60 mL/min/1.73 square meters End Stage Renal Disease: Less than 15 mL/min/1.73 square meters Globulin 4.2 G/dL Invalid Interpretation Code AO ADM SS Glucose [Mass/Vol] 108 mg/dL Invalid Interpretation Code AO Chemistry S Comment on above: Interpretive Data: E stimated average glucose (eAG) is a calculated value from Hemoglobin A1C and is customer operations representative of the average blood glucose level in the last 2-3 month period. Normal range: less than 114 mg/dL Glucose [Mass/Vol] 160 mg/dL High 70 - 105 mg/dL AO ADM SS HbA1c (Bld) [Mass fraction] 5.4 % Normal 4.3 - 6.4 % AO ADM SS Potassium [Moles/Vol] 3.7 mmol/L Normal 3.5 - 5.1 mmol/L AO ADM SS Protein [Mass/Vol] 6.7 G/dL Normal 6.4 - 8.2 G/dL AO ADM SS Sodium [Moles/Vol] 139 mmol/L Normal 136 - 145 mmol/L AO ADM SS Urea nitrogen [Mass/Vol] 6 mg/dL Low 7 - 18 mg/dL AO ADM SS Urea nitrogen/Creatinine [Mass ratio] 10 ratio Normal 7 - 27 ratio AO ADM SS LABORATORYOrdered By: Ethan Núñez on 11-10-2023 Glucose [Mass/Vol] 107 mg/dL Normal 83 - 110 mg/dL AO ADM SS LABORATORYOrdered By: Estefania Martinez on 11-09-2023 Glucose [Mass/Vol] 91 mg/dL Normal 70 - 110 mg/dL [facility] Work Phone: Joe 09-27-[address] Positive Normal [facility] ([place]) Comment on above: Result Comment: INTE RPRETATION OF VARICELLA IMMUNE STATUS IgG BY EIA: Negative: No detectable VZV IgG antibody. Positive: VZV IgG antibody Detected. If clinically indicated, order Varicella IgM to rule out recent infection. Equivocal: Equivocal for antibodies to VZV. Suggest repeat testing in 10-14 days. Performed By: #### V BRITTNEE, RUBIS, HBSAG, RPR ####[place] [address]#### CBC, ADIFF, ANEU, TSH, ABOGEL, ABSGEL ####[address] [place], [place] [address] RPRon 09-24-2023 Reagin Ab RPR Ql (S) Non-Reactive Normal Non-Schwertner cti ve [facility] ([place]) Comment on above: Result Comment: The RPR test is a non-treponemal assay useful as an aidin the diagnosis of primary and secondary syphilis. Itconverts to positive generally within 2 weeks after theappearance of a lesion. This test is also useful formonitoring response to antibiotic therapy.A positive RPR screening test will be followed by theFTA ABS test.False positive RPR tests may occur in 1) patients withunderlying autoimmune disorders, 2) elderly patients,3) , and 4) other conditions with abnormal serumglobulins. Performed By: #### V BRITTNEE, RUBIS, HBSAG, RPR ####[place] [address]#### CBC, ADIFF, ANEU, TSH, ABOGEL, ABSGEL ####[address] [place], [place] [address] RUBISon 09-24-[address] Positive Normal Positive [facility] ([place]) Comment on above: Result Comment: This immune status assay detects IgM and/or IgG antibody to Rubella. Interpret results in conjunction with clinical history. POS: Antibody detected; exposure at undetermined recent or distant time. If clinically indicated, order Rubella IGM to rule out recent infection. NEG: No antibody detected. Performed By: #### V BRITTNEE, RUBIS, HBSAG, RPR ####[place] [address]#### CBC, ADIFF, ANEU, TSH, ABOGEL, ABSGEL ####[address] [place], [place] [address] .Auto Diffon 09-23-2023 Basophil, Absolute 0.0 10 3/mcL Normal 0.0-0.2 [facility] ([place]) Comment on above: Performed By: #### V BRITTNEE, RUBIS, HBSAG, RPR ####[place] [address]#### CBC, ADIFF, ANEU, TSH, ABOGEL, ABSGEL ####[facility] [place], [place] [address] Basophils/100 WBC (Bld) 0.4 % Normal 0.0-2.5 [facility] ([place]) Comment on above: Performed By: #### V BRITTNEE, RUBIS, HBSAG, RPR ####[place] [address]#### CBC, ADIFF, ANEU, TSH, ABOGEL, ABSGEL ####[facility] [place], [place] [address] Eosinophil, Absolute 0.0 10 3/mcL Normal 0.0-0.4 [facility] ([place]) Comment on above: Performed By: #### V BRITTNEE, RUBIS, HBSAG, RPR ####[place] [address]#### CBC, ADIFF, ANEU, TSH, ABOGEL, ABSGEL ####[address] [address] Eosinophils/100 WBC (Bld) 0.3 % Normal 0.0-7.0 [facility] ([place]) Comment on above: Performed By: #### V BRITTNEE, RUBIS, HBSAG, RPR ####[place] [address]#### CBC, ADIFF, ANEU, TSH, ABOGEL, ABSGEL ####[facility] [place], [place] [address] Lymphocyte, Absolute 2.2 10 3/mcL Normal 0.8-3.9 [facility] ([place]) Comment on above: Performed By: #### V BRITTNEE, RUBIS, HBSAG, RPR ####[place] [address]#### CBC, ADIFF, ANEU, TSH, ABOGEL, ABSGEL ####[facility] [place], [place] [address] Lymphocytes/100 WBC (Bld) 20.5 % Normal 10.0-50.0 [facility] ([place]) Comment on above: Performed By: #### V BRITTNEE, RUBIS, HBSAG, RPR ####[place] [address]#### CBC, ADIFF, ANEU, TSH, ABOGEL, ABSGEL ####[facility] [place], [place] [address] Monocyte, Absolute 0.6 10 3/mcL Normal 0.2-1.0 [facility] ([place]) Comment on above: Performed By: #### V BRITTNEE, RUBIS, HBSAG, RPR ####[place] [address]#### CBC, ADIFF, ANEU, TSH, ABOGEL, ABSGEL ####[facility] [place] [address] Monocytes/100 WBC (Bld) 5.6 % Normal 1.7-13.0 [facility] ([place]) Comment on above: Performed By: #### V BRITTNEE, RUBIS, HBSAG, RPR ####[place] [address]#### CBC, ADIFF, ANEU, TSH, ABOGEL, ABSGEL ####[address] [address] Neutrophils/100 WBC (Bld) 73.2 % Normal 37.0-80.0 [facility] ([place]) Comment on above: Performed By: #### V BRITTNEE, RUBIS, HBSAG, RPR ####[place] [address]#### CBC, ADIFF, ANEU, TSH, ABOGEL, ABSGEL ####[facility] [place], [place] [address] .NEUABSon 09-23-2023 Neutrophil, Absolute 7.8 10 3/mcL High 2.9-6.2 [facility] ([place]) Comment on above: Performed By: #### V BRITTNEE, RUBIS, HBSAG, RPR ####[place] [address]#### CBC, ADIFF, ANEU, TSH, ABOGEL, ABSGEL ####[facility] [place], [place] [address] ABO/Rh (Gel)on 09-23-2023 ABO/Rh Interp Positive Invalid Interpretation Code [facility] ([place]) Comment on above: Performed By: #### V BRITTNEE, RUBIS, HBSAG, RPR ####[place] [address]#### CBC, ADIFF, ANEU, TSH, ABOGEL, ABSGEL ####[facility] [place], [place] [address] ABS (Gel)on 09-23-2023 ABSC Interp (Gel) Negative Normal [facility] ([place]) Comment on above: Performed By: #### V BRITTNEE, RUBIS, HBSAG, RPR ####[place] [address]#### CBC, ADIFF, ANEU, TSH, ABOGEL, ABSGEL ####[facility] [place] [id number] CBCon 09-23-2023 Erythrocyte distribution width (RBC) [Ratio] 15.0 % High 11.5-14.5 [facility] ([place]) Comment on above: Performed By: #### V BRITTNEE, RUBIS, HBSAG, RPR ####[place] [address]#### CBC, ADIFF, ANEU, TSH, ABOGEL, ABSGEL ####[facility] [place], [place] [address] Hematocrit (Bld) [Volume fraction] 36.2 % Low 37.0-47.0 [facility] ([place]) Comment on above: Performed By: #### V BRITTNEE, RUBIS, HBSAG, RPR ####[place] [address]#### CBC, ADIFF, ANEU, TSH, ABOGEL, ABSGEL ####[address] [place], [place] [address] Hgb 11.9 G/dL Low 12.0-16.0 [facility] ([place]) Comment on above: Performed By: #### V BRITTNEE, RUBIS, HBSAG, RPR ####[place] [address]#### CBC, ADIFF, ANEU, TSH, ABOGEL, ABSGEL ####[facility] [place], [place] [address] MCH (RBC) [Entitic mass] 24.8 pg Low 27.0-31.2 [facility] ([place]) Comment on above: Performed By: #### V BRITTNEE, RUBIS, HBSAG, RPR ####[place] [address]#### CBC, ADIFF, ANEU, TSH, ABOGEL, ABSGEL ####[facility] [place] [id number] MCHC 32.8 G/dL Low 33.0-37.0 [facility] ([place]) Comment on above: Performed By: #### V BRITTNEE, RUBIS, HBSAG, RPR ####[place] [address]#### CBC, ADIFF, ANEU, TSH, ABOGEL, ABSGEL ####[facility] [place], [place] [address] MCV (RBC) [Entitic vol] 75.5 fL Low 80.0-94.0 [facility] ([place]) Comment on above: Performed By: #### V BRITTNEE, RUBIS, HBSAG, RPR ####[place] [address]#### CBC, ADIFF, ANEU, TSH, ABOGEL, ABSGEL ####[facility] [place], [place] [address] Platelet 162 10 3/mcL Normal 130-400 [facility] ([place]) Comment on above: Performed By: #### V BRITTNEE, RUBIS, HBSAG, RPR ####[place] [address]#### CBC, ADIFF, ANEU, TSH, ABOGEL, ABSGEL ####[facility] [place], [place] [address] Platelet mean volume (Bld) [Entitic vol] 9.5 fL Normal 7.4-10.4 [facility] ([place]) Comment on above: Performed By: #### V BRITTNEE, RUBIS, HBSAG, RPR ####[place] [address]#### CBC, ADIFF, ANEU, TSH, ABOGEL, ABSGEL ####[address] [place] [address] RBC 4.80 10 6/mcL Normal 4.20-5.40 [facility] ([place]) Comment on above: Performed By: #### V BRITTNEE, RUBIS, HBSAG, RPR ####[place] [address]#### CBC, ADIFF, ANEU, TSH, ABOGEL, ABSGEL ####[facility] [place] [address] WBC 10.7 10 3/mcL Normal 4.6-10.8 [facility] ([place]) Comment on above: Performed By: #### V BRITTNEE, RUBIS, HBSAG, RPR ####[place] [address]#### CBC, ADIFF, ANEU, TSH, ABOGEL, ABSGEL ####[facility] [place] [address] HBSAGon 09-23-2023 Hep B Surf Ag Non-Reactive Normal Non-Reacti ve [facility] ([place]) Comment on above: Performed By: #### V BRITTNEE, RUBIS, HBSAG, RPR ####[place] [address]#### CBC, ADIFF, ANEU, TSH, ABOGEL, ABSGEL ####[address] [place] [address] LABORATORYOrdered By: Monica Chiu on 09-23-2023 ABO and Rh group Nom (Bld) Blood group B Rh(D) positive Invalid Interpretation Code AO BB Auto SS Blood group antibody screen Ql Negative ABSC (09/23/23 2:02 PM) Normal AO BB Auto SS LABORATORYOrdered By: Figma SYSTEM on 09-23-2023 Basophil, Absolute 0.0 103/mcL Normal 0.0 - 0.2 10^3/mcL AO Workflow SS Basophils/100 WBC (Bld) 0.4 % Normal 0.0 - 2.5 % AO Workflow SS Eosinophil, Absolute 0.0 103/mcL Normal 0.0 - 0 .4 10^3/mcL AO Workflow SS Eosinophils/100 WBC (Bld) 0.3 % Normal 0.0 - 7.0 % AO Workflow SS Erythrocyte distribution width (RBC) [Ratio] 15.0 % High 11.5 - 14.5 % AO Workflow SS HBV surface Ag IA Ql Non-Reactive (09/23/23 2:02 PM) Normal Non-Reacti ve AH ADM SS Hematocrit (Bld) [Volume fraction] 36.2 % Low 37.0 - 47.0 % AO Workflow SS Hemoglobin (Bld) [Mass/Vol] 11.9 G/dL Low 12.0 - 16.0 G/dL AO Workflow SS Lymphocyte, Absolute 2.2 103/mcL Normal 0.8 - 3 .9 10^3/mcL AO Workflow SS Lymphocytes/100 WBC (Bld) 20.5 % Normal 10.0 - 50.0 % AO Workflow SS MCH (RBC) [Entitic mass] 24.8 pg Low 27.0 - 31.2 pg AO Workflow SS MCHC 32.8 G/dL Low 33.0 - 37.0 G/dL AO Workflow SS MCV (RBC) [Entitic vol] 75.5 fL Low 80.0 - 94.0 fL AO Workflow SS Monocyte, Absolute 0.6 103/mcL Normal 0.2 - 1.0 10^3/mcL AO Workflow SS Monocytes/100 WBC (Bld) 5.6 % Normal 1.7 - 13.0 % AO Workflow SS Neutrophil, Absolute 7.8 103/mcL High 2.9 - 6 .2 10^3/mcL AO Workflow SS Neutrophils/100 WBC (Bld) 73.2 % Normal 37.0 - 80.0 % AO Workflow SS Platelet mean volume (Bld) [Entitic vol] 9.5 fL Normal 7.4 - 10.4 fL AO Workflow SS Platelets (Bld) [#/Vol] 162 103/mcL Normal 130 - 400 10^3/mcL AO Workflow SS RBC (Bld) [#/Vol] 4.80 106/mcL Normal 4.20 - 5.40 10^6/mcL AO Workflow SS TSH Qn 0.68 m[IU]/L Normal 0.36 - 3.74 mcIU/mL AO ADM SS WBC (Bld) [#/Vol] 10.7 103/mcL Normal 4.6 - 10.8 10^3/mcL AO Workflow SS TSHon 09-23-2023 TSH Qn 0.68 m[IU]/L Normal 0.36-3.74 [facility] ([place]) Comment on above: Performed By: #### V BRITTNEE, RUBIS, HBSAG, RPR ####[address] [address]#### CBC, ADIFF, ANEU, TSH, ABOGEL, ABSGEL ####[address] [place], [place] [address] CTPCRon 09-09-2023 C. trachomatis Interp Normal See CT Interp N [facility] ([place]) Comment on above: Result Comment: C. t rachomatis DNA not detected. Specimen is presumptive negative forC. trachomatis.A negative result does not preclude C. trachomatis infection becauseresults depend on adequate specimen collection, absence of inhibitors,and sufficient DNA to be detected.See CT Interp N Performed By: #### N GPCR1, CTPCR ####[address] [address] C.trachomatis PCR Negative Normal Negative [facility] ([place]) Comment on above: Result Comment: Mole cular (PCR) assay performed on the [employer] 4800 system. Performed By: #### N GPCR1, CTPCR ####[address] [address] Chlam Source Cervix Normal [facility] ([place]) Comment on above: Performed By: #### N GPCR1, CTPCR ####[address] [address] [id number] 09-09-2023 GC PCR Source Cervix Normal [facility] ([place]) Comment on above: Performed By: #### N GPCR1, CTPCR ####[address] [address] N. gonorrhoeae (PCR) Negative Normal Negative [facility] ([place]) Comment on above: Result Comment: Mole cular (PCR) assay performed on the [employer] 4800 System. Performed By: #### N GPCR1, CTPCR ####[place] [address] N. gonorrhoeae Interp Normal See NG Interp N [facility] ([place]) Comment on above: Result Comment: N. g onorrhoeae DNA not detected. Specimen is presumptive negative forN. gonorrhoeae. A negative result does not preclude Neisseria gonorrhoeaeinfection because results depend on adequate specimen collection, absenceof inhibitors, and sufficient DNA to be detected.See NG Interp N Performed By: #### N GPCR1, CTPCR ####[facility] [place], [place] [id number] LABORATORYOrdered By: Miladis Strickland on 09-08-2023 C. trachomatis DNA JULIANNE+probe Ql (Unsp spec) Negative 2 (09/08/23 1:08 PM) Normal Negative Auto Viro/Sero SS Comment on above: Interpretive Data: M olecular (PCR) assay performed on the [employer] 4800 system. C. trachomatis DNA JULIANNE+probe Ql (Unsp spec) C. trachomatis DNA not detected. Specimen is presumptive negative forC. trachomatis.A negative result does not preclude C. trachomatis infection becauseresults depend on adequate specimen collection, absence of inhibitors,and sufficient DNA to be detected. Normal See CT Interp N AH Auto Viro/Sero SS N. gonorrhoeae DNA JULIANNE+probe Ql (Unsp spec) Negative 1 (09/08/23 1:08 PM) Normal Negative AH Auto Viro/Sero SS Comment on above: Interpretive Data: M olecular (PCR) assay performed on the [employer] 4800 System. N. gonorrhoeae DNA JULIANNE+probe Ql (Unsp spec) N. gonorrhoeae DNA not detected. Specimen is presumptive negative forN. gonorrhoeae. A negative result does not preclude Neisseria gonorrhoeaeinfection because results depend on adequate specimen collection, absenceof inhibitors, and sufficient DNA to be detected. Normal See NG Interp N AH Auto Viro/Sero SS Laboratory - Specimen inform ationOrdered By: Miladis Strickland on 07-25-2024 Specimen source Nom (Unsp spec) Cervix (09/08/23 1:08 PM) Normal AH Auto Viro/Sero SS CNOVon 08-30-2023 CNOV Office Visit (UCWSTR ) LESTER INFANTE ([id number]) 1 F Date Time Provider Department 08/30/23 10:30 AM NAYE HANCOCK [facility] During your visit today, we recorded the following information about you: Temperature Pulse Respiration Blood pressure 98.6 degrees 92/minute 18/minute 114/78 Weight 128.1 kg Naye Hancock APRN.TUBER MACHINE OPERATOR HELPER 08/30/2023 10:42 AM Signed CC: Patient presents with: Cough: Chest congestion x1 week 14 weeks HPI: Lester Infante is a 22 year old female who presents to the office with complaint of chest congestion and cough, nonproductive for a week. Symptoms are worsening Associated symptoms includes wheezing and dyspnea. Denies fever, nausea, vomiting , and diarrhea. Treatments tried include nothing so far. with no relief of symptoms. Sick contacts: unknown. History of asthma, frequent episodes of bronchitis, chronic bronchitis, bronchiectasis or COPD: No Smoker: No Seasonal/environmental allergies: No The ROS is otherwise negative. The patient's pmh, medications, allergies, and past visits are reviewed. PHYSICAL EXAM: BP 114/78 Pulse 92 Temp 37 ?C (98.6 ?F) Resp 18 Wt 128.1 kg (282 lb 6.6 oz) LMP (LMP Unknown) SpO2 99% General appearance: alert, cooperative, pleasant, in no acute distress Head: Normocephalic Eyes: EOM's intact, conjunctiva pink and moist, no icterus, sclera white, non-injected Heart: Negative. RRR without obvious murmur, gallop, or rubs. No ectopy. Lungs: mild to moderate wheezing diffusely PAST MEDICAL HISTORY Diagnosis Date NEGATIVE MEDICAL HISTORY PAST SURGICAL HISTORY Procedure Laterality Date INCISION AND DRAINAGE ABSCESS SIMPLE/SINGLE 09/01/05 Right plantar foot ALLERGIES Patient has no known allergies. MEDICATIONS amoxicillin (AMOXIL) 500 mg capsule Take 2 capsules by mouth three times a day for 7 days. vit,alexander 74/iron/folic ( VITAMIN 1+1 ORAL) Take by mouth. ondansetron HCl (ZOFRAN ORAL) Take by mouth. sertraline HCl (ZOLOFT ORAL) Take 1 tablet by mouth once daily. (Patient not taking: Reported on 01/25/2021 ) No family history on file. Social History Tobacco Use Smoking status: Never Smokeless tobacco: Never Substance Use Topics Alcohol use: Never ASSESSMENT/PLAN: 1. Chest congestion - ICD9: 786.9, ICD10: R09.89 (primary diagnosis) - AMOXICILLIN 500 MG CAPSULE 2. Acute cough - ICD9: 786.2, ICD10: R05.1 Treated for possible pneumonia no chest x-ray done due to . Prescription instructions reviewed with patient as applicable. Potential red flag symptoms discussed with the patient. Reviewed appropriate action plan to take if red flag symptoms occur. Patient agreeable to treatment plan. Follow-up with OB. Naye Hancock APRN.TUBER MACHINE OPERATOR HELPER Allergies As of Date: 08/30/2023 (No Known Allergies) Date Reviewed: 08/30/2023 Reviewed by: Eliot Guzman MA - Fully Assessed Reason for Visit: Cough [28] Cmt: Chest congestion x1 week Primary Visit Diagnosis:Chest congestion [R09.89] Other Visit Diagnosis:Acute cough [R05.1] Order(s):amoxicillin (AMOXIL) 500 mg capsuleTake 2 capsules by mouth three times a day for 7 days.Disp: 42 capsuleRfl: 0 Prescriptions as of 08/30/2023 - amoxicillin (AMOXIL) 500 mg capsule Take 2 capsules by mouth three times a day for 7 days. - vit,alexander 74/iron/folic ( VITAMIN 1+1 ORAL) Take by mouth. - ondansetron HCl (ZOFRAN ORAL) Take by mouth. - sertraline HCl (ZOLOFT ORAL) Take 1 tablet by mouth once daily. Medication notes this encounter ZOLOFT ORAL >> Eliot Guzman MA 08/30/2023 10:28 AM >> ELIOT GUZMAN Aug 30, 2023 10:28 AM Problem List As Of Date 08/30/2023 Noted Resolved ABSCESS FOOT (EXCEPT TOE)(Right plantar) [L03.*09/01/2005 03/25/2015 Prescriptions ordered this encounter Disp Refills Start End AMOXICILLIN 500 MG CAPSULE 42 c* 0 08/30/2023 09/06/2023 Route: ORAL Sig: Take 2 capsules by mouth three times a day for 7 days. Encounter Status:Closed by NAYE HANCOCK on 08/30/23 Normal [facility] .Auto Diffon 02-22-2023 Basophil, Absolute 0.1 10 3/mcL Normal 0.0-0.3 [facility] ([place]) Comment on above: Performed By: #### C NATHAN MAO, ADIFF ####[address] [address] Basophils/100 WBC (Bld) 0.7 % Normal 0.0-2.5 [facility] ([place]) Comment on above: Performed By: #### C NATHAN MAO, ADIFF ####[address] [address] Eosinophil, Absolute 0.0 10 3/mcL Normal 0.0-0.7 [facility] ([place]) Comment on above: Performed By: #### C NATHAN MAO, ADIFF ####[address] [address] Eosinophils/100 WBC (Bld) 0.0 % Normal 0.0-6.0 [facility] ([place]) Comment on above: Performed By: #### C NATHAN MAO, ADIFF ####[address] [address] Lymphocyte, Absolute 2.9 10 3/mcL Normal 0.9-4.3 [facility] ([place]) Comment on above: Performed By: #### C NATHAN MAO, ADIFF ####[address] [address] Lymphocytes/100 WBC (Bld) 23.5 % Normal 20.0-40.0 [facility] ([place]) Comment on above: Performed By: #### C NATHAN MAO, ADIFF ####[address] [address] Monocyte, Absolute 1.0 10 3/mcL Normal 0.1-1.4 [facility] ([place]) Comment on above: Performed By: #### C NATHAN MAO, ADIFF ####[address] [address] Monocytes/100 WBC (Bld) 8.3 % Normal 2.0-13.0 [facility] ([place]) Comment on above: Performed By: #### C NATHAN MAO, ADIFF ####[address] [address] Neutrophils/100 WBC (Bld) 67.5 % Normal 50.0-75.0 [facility] ([place]) Comment on above: Performed By: #### C NATHAN MAO, ADIFF ####[address] [address] .NEUABSon 02-22-2023 Neutrophil, Absolute 8.2 10 3/mcL High 2.3-8.1 [facility] ([place]) Comment on above: Performed By: #### C NATHAN MAO, ADIFF ####[address] [address] CBCon 02-22-2023 Erythrocyte distribution width (RBC) [Ratio] 15.4 % Normal 11.5-15.5 [facility] ([place]) Comment on above: Performed By: #### C NATHAN MAO, ADIFF ####[address] [address] Hematocrit (Bld) [Volume fraction] 30.0 % Low 34.0-46.0 [facility] ([place]) Comment on above: Performed By: #### C NATHAN MAO, ADIFF ####[address] [address] Hgb 9.8 G/dL Low 12.0-16.0 [facility] ([place]) Comment on above: Performed By: #### C NATHAN MAO, ADIFF ####[address] [address] MCH (RBC) [Entitic mass] 24.3 pg Low 27.0-33.0 [facility] ([place]) Comment on above: Performed By: #### C MAYCO, ANEU, ADIFF ####[facility] [place] [address] MCHC 32.8 G/dL Normal 32.0-36.0 [facility] ([place]) Comment on above: Performed By: #### C BC, ANEU, ADIFF ####[facility] [place] [address] MCV (RBC) [Entitic vol] 74.1 fL Low 80.0-99.0 [facility] ([place]) Comment on above: Performed By: #### C BC, ANEU, ADIFF ####[place] [address] [address] [place] [address] Platelet 136 10 3/mcL Low 150-450 [facility] ([place]) Comment on above: Performed By: #### C BC, ANEU, ADIFF ####[place] [address] [place] [address] Platelet mean volume (Bld) [Entitic vol] 10.7 fL High 6.6-10.5 [facility] ([place]) Comment on above: Performed By: #### C MAYCO, ANEU, ADIFF ####[address] [address] RBC 4.05 10 6/mcL Low 4.10-5.30 [facility] ([place]) Comment on above: Performed By: #### C BC, ANEU, ADIFF ####[place] [address] [place] [address] WBC 12.1 10 3/mcL High 4.5-10.8 [facility] ([place]) Comment on above: Performed By: #### C BC, ANEU, ADIFF ####[place] [address] [place] [address] LABORATORYOrdered By: Trang Keys on 02-22-2023 Blood Glucose Testing Reason Routine (02/22/23 5:30 AM) [facility] Work Phone: Glucose [Mass/Vol] 99 mg/dL Normal 70 - 110 mg/dL [facility] Work Phone: Comment on above: Result Comment: fast ing blood sugar LABORATORYOrdered By: SYSTEM SYSTEM on 02-22-2023 Basophils (Bld) [#/Vol] 0.1 103/mcL Normal 0.0 - 0.3 10^3/mcL AH Workflow SS Basophils/100 WBC (Bld) 0.7 % Normal 0.0 - 2.5 % AH Workflow SS Eosinophils (Bld) [#/Vol] 0.0 103/mcL Normal 0.0 - 0.7 10^3/mcL AH Workflow SS Eosinophils/100 WBC (Bld) 0.0 % Normal 0.0 - 6.0 % AH Workflow SS Erythrocyte distribution width (RBC) [Ratio] 15.4 % Normal 11.5 - 15.5 % AH Workflow SS Hematocrit (Bld) [Volume fraction] 30.0 % Low 34.0 - 46.0 % AH Workflow SS Hemoglobin (Bld) [Mass/Vol] 9.8 G/dL Low 12.0 - 16.0 G/dL AH Workflow SS Lymphocytes (Bld) [#/Vol] 2.9 103/mcL Normal 0.9 - 4.3 10^3/mcL AH Workflow SS Lymphocytes/100 WBC (Bld) 23.5 % Normal 20.0 - 40.0 % AH Workflow SS MCH (RBC) [Entitic mass] 24.3 pg Low 27.0 - 33.0 pg AH Workflow SS MCHC 32.8 G/dL Normal 32.0 - 36.0 G/dL AH Workflow SS MCV (RBC) [Entitic vol] 74.1 fL Low 80.0 - 99.0 fL AH Workflow SS Monocytes (Bld) [#/Vol] 1.0 103/mcL Normal 0.1 - 1.4 10^3/mcL AH Workflow SS Monocytes/100 WBC (Bld) 8.3 % Normal 2.0 - 13.0 % AH Workflow SS Neutrophils (Bld) [#/Vol] 8.2 103/mcL High 2.3 - 8.1 10^3/mcL AH Workflow SS Neutrophils/100 WBC (Bld) 67.5 % Normal 50.0 - 75.0 % AH Workflow SS Platelet mean volume (Bld) [Entitic vol] 10.7 fL High 6.6 - 10.5 fL AH Workflow SS Platelets (Bld) [#/Vol] 136 103/mcL Low 150 - 450 10^3/mcL AH Workflow SS RBC (Bld) [#/Vol] 4.05 106/mcL Low 4.10 - 5.30 10^6/mcL Workflow SS WBC (Bld) [#/Vol] 12.1 103/mcL High 4.5 - 10.8 10^3/mcL Workflow SS RPRon 02-22-2023 Reagin Ab RPR Ql (S) Non-Reactive Normal Non-Schwertner cti ve [facility] ([place]) Comment on above: Result Comment: The RPR test is a non-treponemal assay useful as an aidin the diagnosis of primary and secondary syphilis. Itconverts to positive generally within 2 weeks after theappearance of a lesion. This test is also useful formonitoring response to antibiotic therapy.A positive RPR screening test will be followed by theFTA ABS test.False positive RPR tests may occur in 1) patients withunderlying autoimmune disorders, 2) elderly patients,3) , and 4) other conditions with abnormal serumglobulins. Performed By: #### A WAYNE, RPR, ABSGEL, CBC, ABOGEL, ADIFF ####[place] [address] .Auto Diffon 02-21-2023 Basophil, Absolute 0.0 10 3/mcL Normal 0.0-0.3 [facility] ([place]) Comment on above: Performed By: #### A WAYNE, RPR, ABSGEL, CBC, ABOGEL, ADIFF ####[address] [address] Eosinophil, Absolute 0.0 10 3/mcL Normal 0.0-0.7 [facility] ([place]) Comment on above: Performed By: #### A WAYNE, RPR, ABSGEL, CBC, ABOGEL, ADIFF ####[address] [address] Lymphocyte, Absolute 1.7 10 3/mcL Normal 0.9-4.3 [facility] ([place]) Comment on above: Performed By: #### A WAYNE, RPR, ABSGEL, CBC, ABOGEL, ADIFF ####[place] [address] Monocyte, Absolute 0.5 10 3/mcL Normal 0.1-1.4 [facility] ([place]) Comment on above: Performed By: #### A WAYNE, RPR, ABSGEL, CBC, ABOGEL, ADIFF ####[address] [address] .Auto DiffOrdered By: SYSTEM SYSTEM on 02-21-2023 Basophils/100 WBC (Bld) 0.6 % Normal 0.0-2.5 AH Workflow SS Comment on above: Performed By: #### A WAYNE, RPR, ABSGEL, CBC, ABOGEL, ADIFF ####[address] [address] Eosinophils/100 WBC (Bld) 0.1 % Normal 0.0-6.0 AH Workflow SS Comment on above: Performed By: #### A WAYNE, RPR, ABSGEL, CBC, ABOGEL, ADIFF ####[address] [address] Lymphocytes/100 WBC (Bld) 21.4 % Normal 20.0-40.0 AH Workflow SS Comment on above: Performed By: #### A WAYNE, RPR, ABSGEL, CBC, ABOGEL, ADIFF ####[address] [address] Monocytes/100 WBC (Bld) 5.9 % Normal 2.0-13.0 AH Workflow SS Comment on above: Performed By: #### A WAYNE, RPR, ABSGEL, CBC, ABOGEL, ADIFF ####[address] [address] Neutrophils/100 WBC (Bld) 72.0 % Normal 50.0-75.0 AH Workflow SS Comment on above: Performed By: #### A WAYNE, RPR, ABSGEL, CBC, ABOGEL, ADIFF ####[address] [address] .NEUABSon 02-21-2023 Neutrophil, Absolute 5.9 10 3/mcL Normal 2.3-8.1 [facility] ([place]) Comment on above: Performed By: #### A WAYNE, RPR, ABSGEL, CBC, ABOGEL, ADIFF ####[address] [address] ABO/Rh (Gel)on 02-21-2023 ABO/Rh Interp Positive Invalid Interpretation Code [facility] ([place]) Comment on above: Performed By: #### A WAYNE, RPR, ABSGEL, CBC, ABOGEL, ADIFF ####[place] [address] ABS (Gel)on 02-21-2023 ABSC Interp (Gel) Negative Normal [facility] ([place]) Comment on above: Performed By: #### A WAYNE, RPR, ABSGEL, CBC, ABOGEL, ADIFF ####[place] [address] CBCOrdered By: SYSTEM SYSTEM on 02-21-2023 Erythrocyte distribution width (RBC) [Ratio] 15.4 % Normal 11.5-15.5 AH Workflow SS Comment on above: Performed By: #### A WAYNE, RPR, ABSGEL, CBC, ABOGEL, ADIFF ####[place] [address] Hematocrit (Bld) [Volume fraction] 31.8 % Low 34.0-46.0 AH Workflow SS Comment on above: Performed By: #### A WAYNE, RPR, ABSGEL, CBC, ABOGEL, ADIFF ####[place] [address] MCH (RBC) [Entitic mass] 24.4 pg Low 27.0-33.0 AH Workflow SS Comment on above: Performed By: #### A WAYNE, RPR, ABSGEL, CBC, ABOGEL, ADIFF ####[place] [address] MCHC 33.0 G/dL Normal 32.0-36.0 AH Workflow SS Comment on above: Performed By: #### A WAYNE, RPR, ABSGEL, CBC, ABOGEL, ADIFF ####[place] [address] MCV (RBC) [Entitic vol] 74.0 fL Low 80.0-99.0 AH Workflow SS Comment on above: Performed By: #### A WAYNE, RPR, ABSGEL, CBC, ABOGEL, ADIFF ####[address] [place], [place] [address] Platelet mean volume (Bld) [Entitic vol] 11.0 fL High 6.6-10.5 Workflow SS Comment on above: Performed By: #### A WAYNE, RPR, ABSGEL, CBC, ABOGEL, ADIFF ####[address] [address] CBCon 02-21-2023 Hgb 10.5 G/dL Low 12.0-16.0 [facility] ([place]) Comment on above: Performed By: #### A WAYNE, RPR, ABSGEL, CBC, ABOGEL, ADIFF ####[address] [address] Platelet 119 10 3/mcL Low 150-450 [facility] ([place]) Comment on above: Performed By: #### A WAYNE, RPR, ABSGEL, CBC, ABOGEL, ADIFF ####[address] [address] RBC 4.29 10 6/mcL Normal 4.10-5.30 [facility] ([place]) Comment on above: Performed By: #### A WAYNE, RPR, ABSGEL, CBC, ABOGEL, ADIFF ####[address] [address] WBC 8.2 10 3/mcL Normal 4.5-10.8 [facility] ([place]) Comment on above: Performed By: #### A WAYNE, RPR, ABSGEL, CBC, ABOGEL, ADIFF ####[address] [address] LABORATORYOrdered By: Halina Middleton on 02-21-2023 Blood Glucose Testing Reason Routine (02/21/23 10:53 AM) [facility] Work Phone: Glucose [Mass/Vol] 74 mg/dL Normal 70 - 110 mg/dL [facility] Work Phone: ABO and Rh group Nom (Bld) B positive (02/21/23 10:34 AM) [facility] Work Phone: Group B Strep Date Performed [id number] [facility] Work Phone: Group B Strep, External Negative (02/21/23 10:34 AM) [facility] Work Phone: Hepatitis B Date Performed [id number] [facility] Work Phone: Hepatitis B, External Negative (02/21/23 10:34 AM) [facility] Work Phone: HIV Antibodies, External Negative (02/21/23 10:34 AM) [facility] Work Phone: RPR, External Nonreactive (02/21/23 10:34 AM) [facility] Work Phone: Rubella, External Immune (02/21/23 10:34 AM) [facility] Work Phone: LABORATORYOrdered By: Linda Alvarez on 02-21-2023 ABO and Rh group Nom (Bld) Blood group B Rh(D) positive Invalid Interpretation Code AH BB Auto SS Blood group antibody screen Ql Negative ABSC (02/21/23 10:00 AM) Normal AH BB Auto SS LABORATORYOrdered By: SYSTEM SYSTEM on 02-21-2023 Basophils (Bld) [#/Vol] 0.0 103/mcL Normal 0.0 - 0.3 10^3/mcL Workflow SS Eosinophils (Bld) [#/Vol] 0.0 103/mcL Normal 0.0 - 0.7 10^3/mcL AH Workflow SS Hemoglobin (Bld) [Mass/Vol] 10.5 G/dL Low 12.0 - 16.0 G/dL AH Workflow SS Lymphocytes (Bld) [#/Vol] 1.7 103/mcL Normal 0.9 - 4.3 10^3/mcL Workflow SS Monocytes (Bld) [#/Vol] 0.5 103/mcL Normal 0.1 - 1.4 10^3/mcL Workflow SS Neutrophils (Bld) [#/Vol] 5.9 103/mcL Normal 2.3 - 8.1 10^3/mcL Workflow SS Platelets (Bld) [#/Vol] 119 103/mcL Low 150 - 450 10^3/mcL Workflow SS RBC (Bld) [#/Vol] 4.29 106/mcL Normal 4.10 - 5.30 10^6/mcL Workflow SS WBC (Bld) [#/Vol] 8.2 103/mcL Normal 4.5 - 10.8 10^3/mcL Workflow SS LABORATORYOrdered By: Miladis Strickland on 02-21-2023 Reagin Ab RPR Ql (S) Non-Reactive 1 (02/21/23 10:00 AM) Normal Non-Reacti ve AH Man Viro/Sero SS Comment on above: Interpretive Data: T he RPR test is a non-treponemal assay useful as an aid in the diagnosis of primary and secondary syphilis. It converts to positive generally within 2 weeks after the appearance of a lesion. This test is also useful for monitoring response to antibiotic therapy. A positive RPR screening test will be followed by the FTA ABS test. False positive RPR tests may occur in 1) patients with underlying autoimmune disorders, 2) elderly patients, 3) , and 4) other conditions with abnormal serum globulins. Progress Noteon 02-18-2023 Acetone Button Paster Authentication Interface Message Text Comanage Gestational Diabetes Mellitus Lester Infante is seen at 36w5d for comanagement of Gestational Diabetes Mellitus, Cholestasis of , Obesity, and previous C/S . She denies any complaints today. Her blood glucose record was not available for review. Her insulin did not change. Current dose is Levemir 28 units@ HS . History of Presenting Problem: She is accompanied by her significant other. Lester denies any cramping, contractions, vaginal bleeding, unusual or increase in vaginal discharge, signs and symptoms of pre-eclampsia, or leaking of any fluid. Patient with positive movement. Gestational Diabetes Lester presents today for her comanage visit. She has GDMA2 diabetes. Current treatments include insulin injections and diet. She is compliant with treatment some of the time. Blood glucose readings not reviewed. Readings are as follows: Pt did not bring BS log. Reports fastings under 90 and 2 hr PP under 120s. Continue with Levemir 28 units @ HS. Discussed sending in BS log through [employer] for review.. Past Medical History: Past Medical History: Diagnosis Date Anxiety At high risk for infection 01/14/2023 Risk for Infectious Diseases: We reviewed prevention strategies for maternal-infant protection against infectious illnesses. Covid infection risk- vaccination, including Boosters if not already concluded is recommended. She decided against it. Seasonal Flu: Vaccination in available in Oct-Mar window and is recommended. Cholestasis of , antepartum 01/14/2023 Depression Gestational diabetes mellitus (GDM) Migraine headache Obesity Past Surgical History: Procedure Laterality Date SECTION, LOW TRANSVERSE x 4 Medications: Outpatient Encounter Medications as of 02/18/2023 Medication Sig Dispense Refill TYLENOL 500 MG tablet 2 Tablets (1,000 mg) ursodiol (ACTIGALL) 300 MG capsule Take 1 Capsule (300 mg) by mouth 3 times daily for 30 days 90 Capsule 1 famotidine (PEPCID) 20 MG tablet Take 1 Tablet (20 mg) by mouth daily Vit w/Kv-Sqwoeiuaz-DC (PNV PO) Take 1 Tablet by mouth daily ferrous sulfate (FEOSOL) 325 (65 FE) MG TABS tablet Take by mouth daily insulin detemir (LEVEMIR) 100 UNIT/ML SOLN injection Inject 20 Units into the skin nightly at bedtime for 150 days (Patient taking differently: Inject 20 Units into the skin nightly at bedtime 28u Taking 1 hour before dinner) 10 mL 2 cyclobenzaprine (FLEXERIL) 5 MG tablet 1 Tablet (5 mg) RA ALCOHOL SWABS 70 % PADS Blood Glucose Monitoring Suppl (ONE TOUCH ULTRA 2) w/Device KIT use as directed to CHECK BLOOD SUGAR four times a day FREESTYLE PRECISION DANAY TEST test strip FREESTYLE LANCETS MISC Insulin Syringe-Needle U-100 31G X 5/16 1 ML MISC Use as directed 40 Each 3 No facility-administered encounter medications on file as of 02/18/2023. Allergies: No Known Allergies Family Medical History: Family History Problem Relation Age of Onset No known problems Mother High Blood Pressure Father Diabetes Mellitus II Paternal Grandmother Heart Disease Paternal Grandfather Diabetes Mellitus II Paternal Grandfather Social History: Social History Socioeconomic History Marital status: Spouse name: None Number of children: None Years of education: None Highest education level: None Tobacco Use Smoking status: Never Smokeless tobacco: Never Substance and Sexual Activity Alcohol use: Not Currently Drug use: Never Physical Exam: Vitals Extended BP: 126/80 Weight - Scale: (!) 125.8 kg (277 lb 4.8 oz) Heart Rate: Positive Number of Fetuses: 1 Heart Rate: done per ultrasound Movement: Present Vaginal Bleeding: Absent Cramps / Contractions: Present Mucous Discharge: Absent Assessment/Plan: Lester Infante is a 22 y.o. at 36w5d with: Active Non-Hospital Problems Diagnosis Date Noted COVID-19 affecting in third trimester 02/11/2023 She presented to labor and delivery 2 days ago with symptoms of labor. She had mild URI symptoms and had a positive COVID test. She denies shortness of breath or other breathing difficulties. He is afebrile. Warning signs of worsening COVID were discussed. 02/18/2023 Pt states symptoms resolved and feeling better. Reviewed on 02/18/2023 Supervision of high risk in third trimester 01/17/2023 PLAN OF CARE- Co-Manage of [facility] MD/OB APPOINTMENTS Genetic screening: How often should patient be evaluated? Monthly to 28 weeks, q 2 weeks from 28 to 36 weeks then weekly until delivery. Work restrictions: NA EVALUATION surveillance: Biweekly BPPs Ultrasound: Growth every 4 weeks DELIVERY PLAN Hospital: [facility] C/S at 37.1 weeks Cholestasis of C/S scheduled fro 02/21/2022 @ 1100 GBS culture: per OB Contraception: tubal ligation : Pump and bottle Ped: [place] Lopez Name of baby: Boy (more content not included)... Normal [facility] RPRon 02-17-2023 Reagin Ab RPR Ql (S) Non-Reactive Normal Non-Letty cti ve [facility] ([place]) Comment on above: Result Comment: The RPR test is a non-treponemal assay useful as an aidin the diagnosis of primary and secondary syphilis. Itconverts to positive generally within 2 weeks after theappearance of a lesion. This test is also useful formonitoring response to antibiotic therapy.A positive RPR screening test will be followed by theFTA ABS test.False positive RPR tests may occur in 1) patients withunderlying autoimmune disorders, 2) elderly patients,3) , and 4) other conditions with abnormal serumglobulins. Performed By: #### A WAYNE, ADIFF, MORPH, RPR, CBC, HIV ####[place] [address] .Auto Diffon 02-16-2023 Basophil, Absolute 0.0 10 3/mcL Normal 0.0-0.3 [facility] ([place]) Comment on above: Performed By: #### A WAYNE, ADIFF, MORPH, RPR, CBC, HIV ####[address] [address] Basophils/100 WBC (Bld) 0.5 % Normal 0.0-2.5 [facility] ([place]) Comment on above: Performed By: #### A WAYNE, ADIFF, MORPH, RPR, CBC, HIV ####[address] [address] Eosinophil, Absolute 0.0 10 3/mcL Normal 0.0-0.7 [facility] ([place]) Comment on above: Performed By: #### A WAYNE, ADIFF, MORPH, RPR, CBC, HIV ####[address] [address] Eosinophils/100 WBC (Bld) 0.1 % Normal 0.0-6.0 [facility] ([place]) Comment on above: Performed By: #### A WAYNE, ADIFF, MORPH, RPR, CBC, HIV ####[address] [address] Lymphocyte, Absolute 2.1 10 3/mcL Normal 0.9-4.3 [facility] ([place]) Comment on above: Performed By: #### A WAYNE, ADIFF, MORPH, RPR, CBC, HIV ####[address] [address] Lymphocytes/100 WBC (Bld) 24.7 % Normal 20.0-40.0 [facility] ([place]) Comment on above: Performed By: #### A WAYNE, ADIFF, MORPH, RPR, CBC, HIV ####[address] [address] Monocyte, Absolute 0.4 10 3/mcL Normal 0.1-1.4 [facility] ([place]) Comment on above: Performed By: #### A WAYNE, ADIFF, MORPH, RPR, CBC, HIV ####[address] [address] Monocytes/100 WBC (Bld) 4.2 % Normal 2.0-13.0 [facility] ([place]) Comment on above: Performed By: #### A WAYNE, ADIFF, MORPH, RPR, CBC, HIV ####[place] [address] Neutrophils/100 WBC (Bld) 70.5 % Normal 50.0-75.0 [facility] ([place]) Comment on above: Performed By: #### A WAYNE, ADIFF, MORPH, RPR, CBC, HIV ####[place] [address] .Morphon 02-16-2023 Anisocytosis Ql (Bld) 1+ Normal [facility] ([place]) Comment on above: Performed By: #### A WAYNE, ADIFF, MORPH, RPR, CBC, HIV ####[place] [address] Large Platelets Few Normal [facility] ([place]) Comment on above: Performed By: #### A WAYNE, ADIFF, MORPH, RPR, CBC, HIV ####[place] [address] Microcytosis 2+ Normal [facility] ([place]) Comment on above: Performed By: #### A WAYNE, ADIFF, MORPH, RPR, CBC, HIV ####[place] [address] Platelet Estimate Slt Decreased Normal [facility] ([place]) Comment on above: Performed By: #### A WAYNE, ADIFF, MORPH, RPR, CBC, HIV ####[place] [address] Polychrom 1+ Normal [facility] ([place]) Comment on above: Performed By: #### A WAYNE, ADIFF, MORPH, RPR, CBC, HIV ####[place] [address] .NEUABSon 02-16-2023 Neutrophil, Absolute 6.1 10 3/mcL Normal 2.3-8.1 [facility] ([place]) Comment on above: Performed By: #### A WAYNE, ADIFF, MORPH, RPR, CBC, HIV ####[address] [address] CBCon 02-16-2023 Platelet 139 10 3/mcL Low 150-450 [facility] ([place]) Comment on above: Performed By: #### A WAYNE, ADIFF, MORPH, RPR, CBC, HIV ####[place] [address] Platelet mean volume (Bld) [Entitic vol] 10.4 fL Normal 6.6-10.5 [facility] ([place]) Comment on above: Performed By: #### A WAYNE, ADIFF, MORPH, RPR, CBC, HIV ####[place] [address] Erythrocyte distribution width (RBC) [Ratio] 15.2 % Normal 11.5-15.5 [facility] ([place]) Comment on above: Performed By: #### A WAYNE, ADIFF, MORPH, RPR, CBC, HIV ####[place] [address] Hematocrit (Bld) [Volume fraction] 35.5 % Normal 34.0-46.0 [facility] ([place]) Comment on above: Performed By: #### A WAYNE, ADIFF, MORPH, RPR, CBC, HIV ####[place] [address] Hgb 11.8 G/dL Low 12.0-16.0 [facility] ([place]) Comment on above: Performed By: #### A WAYNE, ADIFF, MORPH, RPR, CBC, HIV ####[place] [address] MCH (RBC) [Entitic mass] 24.5 pg Low 27.0-33.0 [facility] ([place]) Comment on above: Performed By: #### A WAYNE, ADIFF, MORPH, RPR, CBC, HIV ####[place] [address] MCHC 33.3 G/dL Normal 32.0-36.0 [facility] ([place]) Comment on above: Performed By: #### A WAYNE, ADIFF, MORPH, RPR, CBC, HIV ####[place] [address] MCV (RBC) [Entitic vol] 73.4 fL Low 80.0-99.0 [facility] ([place]) Comment on above: Performed By: #### A WAYNE, ADIFF, MORPH, RPR, CBC, HIV ####[place] [address] RBC 4.83 10 6/mcL Normal 4.10-5.30 [facility] ([place]) Comment on above: Performed By: #### A WAYNE, ADIFF, MORPH, RPR, CBC, HIV ####[place] [address] WBC 8.6 10 3/mcL Normal 4.5-10.8 [facility] ([place]) Comment on above: Performed By: #### A WAYNE, ADIFF, MORPH, RPR, CBC, HIV ####[place] [address] CURon 02-16-2023 CUR Normal [facility] ([place]) HIVon 02-16-2023 HIV 1/2 Ab Non-Reactive Normal Non-Reacti ve [facility] ([place]) Comment on above: Result Comment: Spec imen is negative for anti-HIV-1 and anti-HIV-2. Performed By: #### A WAYNE, ADIFF, MORPH, RPR, CBC, HIV ####[place] [address] .Auto Diffon 02-15-2023 Basophil, Absolute 0.0 10 3/mcL Normal 0.0-0.3 [facility] ([place]) Comment on above: Performed By: #### A BSGEL, ANEU, MORPH, ABOGEL, LD, GFR, CBC, ADIFF, CMP ####[place] [address] Basophils/100 WBC (Bld) 0.5 % Normal 0.0-2.5 [facility] ([place]) Comment on above: Performed By: #### A BSGEL, ANEU, MORPH, ABOGEL, LD, GFR, CBC, ADIFF, CMP ####[id number] [place], [place] [address] Eosinophil, Absolute 0.0 10 3/mcL Normal 0.0-0.7 [facility] ([place]) Comment on above: Performed By: #### A BSGEL, ANEU, MORPH, ABOGEL, LD, GFR, CBC, ADIFF, CMP ####[address] [address] Eosinophils/100 WBC (Bld) 0.2 % Normal 0.0-6.0 [facility] ([place]) Comment on above: Performed By: #### A BSGEL, ANEU, MORPH, ABOGEL, LD, GFR, CBC, ADIFF, CMP ####[address] [address] Lymphocyte, Absolute 2.2 10 3/mcL Normal 0.9-4.3 [facility] ([place]) Comment on above: Performed By: #### A BSGEL, ANEU, MORPH, ABOGEL, LD, GFR, CBC, ADIFF, CMP ####[address] [address] Lymphocytes/100 WBC (Bld) 29.4 % Normal 20.0-40.0 [facility] ([place]) Comment on above: Performed By: #### A BSGEL, ANEU, MORPH, ABOGEL, LD, GFR, CBC, ADIFF, CMP ####[address] [address] Monocyte, Absolute 0.5 10 3/mcL Normal 0.1-1.4 [facility] ([place]) Comment on above: Performed By: #### A BSGEL, ANEU, MORPH, ABOGEL, LD, GFR, CBC, ADIFF, CMP ####[address] [address] Monocytes/100 WBC (Bld) 6.8 % Normal 2.0-13.0 [facility] ([place]) Comment on above: Performed By: #### A BSGEL, ANEU, MORPH, ABOGEL, LD, GFR, CBC, ADIFF, CMP ####[address] [address] Neutrophils/100 WBC (Bld) 63.1 % Normal 50.0-75.0 [facility] ([place] Comment on above: Performed By: #### A BSGEL, ANEU, MORPH, ABOGEL, LD, GFR, CBC, ADIFF, CMP ####[address] [address] .GFRon 02-15-2023 GFR >60 Normal [facility] ([place]) Comment on above: Result Comment: GFR Population mean for , Non- Americans Ages 20-29 = 116 mL/min/1.73 sq.m. Ages 30-39 = 107 mL/min/1.73 sq.m. Ages 40-49 = 99 mL/min/1.73 sq.m. Ages 50-59 = 93 mL/min/1.73 sq.m. Ages 60-69 = 85 mL/min/1.73 sq.m. Ages 70+ = 75 mL/min/1.73 sq.m.Chronic Kidney Disease: Less than 60 mL/min/1.73 square metersEnd Stage Renal Disease: Less than 15 mL/min/1.73 square meters Performed By: #### A BSGEL, ANEU, MORPH, ABOGEL, LD, GFR, CBC, ADIFF, CMP ####[place] [address] GFR Non- >60 Normal [facility] ([place] Comment on above: Result Comment: GFR Population mean for , Non- Americans Ages 20-29 = 116 mL/min/1.73 sq.m. Ages 30-39 = 107 mL/min/1.73 sq.m. Ages 40-49 = 99 mL/min/1.73 sq.m. Ages 50-59 = 93 mL/min/1.73 sq.m. Ages 60-69 = 85 mL/min/1.73 sq.m. Ages 70+ = 75 mL/min/1.73 sq.m.Chronic Kidney Disease: Less than 60 mL/min/1.73 square metersEnd Stage Renal Disease: Less than 15 mL/min/1.73 square meters Performed By: #### A BSGEL, ANEU, MORPH, ABOGEL, LD, GFR, CBC, ADIFF, CMP ####[address] [address] .Morphon 02-15-2023 Anisocytosis Ql (Bld) 1+ Normal [facility] ([place]) Comment on above: Performed By: #### A BSGEL, ANEU, MORPH, ABOGEL, LD, GFR, CBC, ADIFF, CMP ####[place] [address] Microcytosis 2+ Normal [facility] ([place]) Comment on above: Performed By: #### A BSGEL, ANEU, MORPH, ABOGEL, LD, GFR, CBC, ADIFF, CMP ####[place] [address] Platelet Estimate Normal Normal [facility] ([place] Comment on above: Performed By: #### A BSGEL, ANEU, MORPH, ABOGEL, LD, GFR, CBC, ADIFF, CMP ####[place] [address] Polychrom 1+ Normal [facility] ([place] Comment on above: Performed By: #### A BSGEL, ANEU, MORPH, ABOGEL, LD, GFR, CBC, ADIFF, CMP ####[place] [address] .NEUABSon 02-15-2023 Neutrophil, Absolute 4.6 10 3/mcL Normal 2.3-8.1 [facility] ([place]) Comment on above: Performed By: #### A BSGEL, ANEU, MORPH, ABOGEL, LD, GFR, CBC, ADIFF, CMP ####[place] [address] ABO/Rh (Gel)on 02-15-2023 ABO/Rh Interp Positive Invalid Interpretation Code [facility] ([place] Comment on above: Performed By: #### A BSGEL, ANEU, MORPH, ABOGEL, LD, GFR, CBC, ADIFF, CMP ####[place] [address] ABS (Gel)on 02-15-2023 ABSC Interp (Gel) Negative Normal [facility] ([place] Comment on above: Performed By: #### A BSGEL, ANEU, MORPH, ABOGEL, LD, GFR, CBC, ADIFF, CMP ####[place] [address] CBCon 02-15-2023 Platelet 133 10 3/mcL Low 150-450 [facility] ([place] Comment on above: Performed By: #### A BSGEL, ANEU, MORPH, ABOGEL, LD, GFR, CBC, ADIFF, CMP ####[place] [address] Platelet mean volume (Bld) [Entitic vol] 11.2 fL High 6.6-10.5 [facility] ([place] Comment on above: Performed By: #### A BSGEL, ANEU, MORPH, ABOGEL, LD, GFR, CBC, ADIFF, CMP ####[place] [address] Erythrocyte distribution width (RBC) [Ratio] 15.1 % Normal 11.5-15.5 [facility] ([place] Comment on above: Performed By: #### A BSGEL, ANEU, MORPH, ABOGEL, LD, GFR, CBC, ADIFF, CMP ####[place] [address] Hematocrit (Bld) [Volume fraction] 32.6 % Low 34.0-46.0 [facility] ([place] Comment on above: Performed By: #### A BSGEL, ANEU, MORPH, ABOGEL, LD, GFR, CBC, ADIFF, CMP ####[place] [address] Hgb 11.2 G/dL Low 12.0-16.0 [facility] ([place] Comment on above: Performed By: #### A BSGEL, ANEU, MORPH, ABOGEL, LD, GFR, CBC, ADIFF, CMP ####[place] [address] MCH (RBC) [Entitic mass] 25.4 pg Low 27.0-33.0 [facility] ([place] Comment on above: Performed By: #### A BSGEL, ANEU, MORPH, ABOGEL, LD, GFR, CBC, ADIFF, CMP ####[place] [address] MCHC 34.3 G/dL Normal 32.0-36.0 [facility] ([place] Comment on above: Performed By: #### A BSGEL, ANEU, MORPH, ABOGEL, LD, GFR, CBC, ADIFF, CMP ####[place] [address] MCV (RBC) [Entitic vol] 74.1 fL Low 80.0-99.0 [facility] ([place] Comment on above: Performed By: #### A BSGEL, ANEU, MORPH, ABOGEL, LD, GFR, CBC, ADIFF, CMP ####[place] [address] RBC 4.40 10 6/mcL Normal 4.10-5.30 [facility] ([place]) Comment on above: Performed By: #### A BSGEL, ANEU, MORPH, ABOGEL, LD, GFR, CBC, ADIFF, CMP ####[place] [address] WBC 7.0 10 3/mcL Normal 4.5-10.8 [facility] ([place] Comment on above: Performed By: #### A BSGEL, ANEU, MORPH, ABOGEL, LD, GFR, CBC, ADIFF, CMP ####[place] [address] CMPon 02-15-2023 Albumin Level 2.1 G/dL Low 3.2-4.8 [facility] ([place] Comment on above: Performed By: #### A BSGEL, ANEU, MORPH, ABOGEL, LD, GFR, CBC, ADIFF, CMP ####[place] [address] Albumin/Globulin [Mass ratio] 0.5 {ratio} Low 0.9-1.6 [facility] ([place] Comment on above: Performed By: #### A BSGEL, ANEU, MORPH, ABOGEL, LD, GFR, CBC, ADIFF, CMP ####[place] [address] ALP [Catalytic activity/Vol] 299 U/L High 38-126 [facility] ([place]) Comment on above: Performed By: #### A BSGEL, ANEU, MORPH, ABOGEL, LD, GFR, CBC, ADIFF, CMP ####[address] [address] ALT [Catalytic activity/Vol] 62 U/L High 10-49 [facility] ([place]) Comment on above: Performed By: #### A BSGEL, ANEU, MORPH, ABOGEL, LD, GFR, CBC, ADIFF, CMP ####[address] [address] AST [Catalytic activity/Vol] 42 U/L High 8-34 [facility] ([place] Comment on above: Performed By: #### A BSGEL, ANEU, MORPH, ABOGEL, LD, GFR, CBC, ADIFF, CMP ####[place] [address] Bili Total 0.50 mg/dL Normal 0.20-1.20 [facility] ([place]) Comment on above: Result Comment: Use of this assay is not recommended for patients undergoing treatment with eltrombopag due to the potential for falsely elevated results. Performed By: #### A BSGEL, ANEU, MORPH, ABOGEL, LD, GFR, CBC, ADIFF, CMP ####[place] [address] BUN/Creatinine Ratio 14.8 ratio Normal 10.0-22.0 [facility] ([place]) Comment on above: Performed By: #### A BSGEL, ANEU, MORPH, ABOGEL, LD, GFR, CBC, ADIFF, CMP ####[address] [address] Calcium [Mass/Vol] 8.4 mg/dL Low 8.7-10.4 [facility] ([place]) Comment on above: Performed By: #### A BSGEL, ANEU, MORPH, ABOGEL, LD, GFR, CBC, ADIFF, CMP ####[address] [address] Chloride [Moles/Vol] 109 mmol/L Normal 98-110 [facility] ([place]) Comment on above: Performed By: #### A BSGEL, ANEU, MORPH, ABOGEL, LD, GFR, CBC, ADIFF, CMP ####[address] [address] CO2 [Moles/Vol] 23 mmol/L Normal 22-32 [facility] ([place]) Comment on above: Performed By: #### A BSGEL, ANEU, MORPH, ABOGEL, LD, GFR, CBC, ADIFF, CMP ####[address] [address] Creatinine [Mass/Vol] 0.54 mg/dL Normal 0.50-1.20 [facility] ([place]) Comment on above: Performed By: #### A BSGEL, ANEU, MORPH, ABOGEL, LD, GFR, CBC, ADIFF, CMP ####[address] [address] Electrolyte Balance 8.0 mEq/L Normal 4.0-15.0 [facility] ([place]) Comment on above: Performed By: #### A BSGEL, ANEU, MORPH, ABOGEL, LD, GFR, CBC, ADIFF, CMP ####[address] [address] Globulin 4.0 G/dL High 1.5-3.8 [facility] ([place]) Comment on above: Performed By: #### A BSGEL, ANEU, MORPH, ABOGEL, LD, GFR, CBC, ADIFF, CMP ####[address] [address] Glucose [Mass/Vol] 79 mg/dL Normal 70-110 [facility] ([place]) Comment on above: Performed By: #### A BSGEL, ANEU, MORPH, ABOGEL, LD, GFR, CBC, ADIFF, CMP ####[address] [address] Potassium [Moles/Vol] 4.0 mmol/L Normal 3.5-5.0 [facility] ([place]) Comment on above: Performed By: #### A BSGEL, ANEU, MORPH, ABOGEL, LD, GFR, CBC, ADIFF, CMP ####[address] [address] Sodium [Moles/Vol] 140 mmol/L Normal 136-145 [facility] ([place]) Comment on above: Performed By: #### A BSGEL, ANEU, MORPH, ABOGEL, LD, GFR, CBC, ADIFF, CMP ####[place] [id number] [place] [address] Total Protein 6.1 G/dL Normal 5.7-8.2 [facility] ([place]) Comment on above: Result Comment: No te - New Reference Range in effect 19 Performed By: #### A BSGEL, ANEU, MORPH, ABOGEL, LD, GFR, CBC, ADIFF, CMP ####[address] [address] Urea nitrogen [Mass/Vol] 8.0 mg/dL Normal 8.0-22.0 [facility] ([place]) Comment on above: Performed By: #### A BSGEL, ANEU, MORPH, ABOGEL, LD, GFR, CBC, ADIFF, CMP ####[address] [address] LABORATORYOrdered By: Daren Devi on 02-15-2023 ABO and Rh group Nom (Bld) Blood group B Rh(D) positive Invalid Interpretation Code AH BB Auto SS Blood group antibody screen Ql Negative ABSC (02/15/23 3:56 PM) Normal AH BB Auto SS LABORATORYOrdered By: SYSTEM SYSTEM on 02-15-2023 Albumin BCP dye [Mass/Vol] 2.1 G/dL Low 3.2 - 4.8 G/dL AH ADM SS Albumin/Globulin [Mass ratio] 0.5 {ratio} Low 0.9 - 1.6 ratio AH ADM SS ALP [Catalytic activity/Vol] 299 U/L High 38 - 126 U/L AH ADM SS ALT No additional P-5'-P [Catalytic activity/Vol] 62 U/L High 10 - 49 U/L AH ADM SS Anisocytosis Ql (Bld) 1+ *NA* (02/15/23 3:56 PM) Invalid Interpretation Code AH Workflow SS AST [Catalytic activity/Vol] 42 U/L High 8 - 34 U/L AH ADM SS Basophils (Bld) [#/Vol] 0.0 103/mcL Normal 0.0 - 0.3 10^3/mcL AH Workflow SS Basophils/100 WBC (Bld) 0.5 % Normal 0.0 - 2.5 % AH Workflow SS Bilirubin [Mass/Vol] 0.50 mg/dL Normal 0.20 - 1.20 mg/dL ADM SS Comment on above: Interpretive Data: U se of this assay is not recommended for patients undergoing treatment with eltrombopag due to the potential for falsely elevated results. Calcium [Mass/Vol] 8.4 mg/dL Low 8.7 - 10. 4 mg/dL ADM SS Chloride [Moles/Vol] 109 mmol/L Normal 98 - 11 0 mEq/L ADM SS CO2 [Moles/Vol] 23 mmol/L Normal 22 - 32 mEq/L ADM SS Creatinine [Mass/Vol] 0.54 mg/dL Normal 0.50 - 1.20 mg/dL ADM SS Electrolyte Balance 8.0 mEq/L Normal 4.0 - 15 .0 mEq/L ADM SS Eosinophils (Bld) [#/Vol] 0.0 103/mcL Normal 0.0 - 0.7 10^3/mcL Workflow SS Eosinophils/100 WBC (Bld) 0.2 % Normal 0.0 - 6.0 % Workflow SS Erythrocyte distribution width (RBC) [Ratio] 15.1 % Normal 11.5 - 15.5 % Workflow SS GFR/1.73 sq M.predicted among blacks MDRD (S/P/Bld) [Vol rate/Area] ml/min/1.73sqm Invalid Interpretation Code [employer] S Comment on above: Interpretive Data: GFR Population mean for , Non- Americans Ages 20-29 = 116 mL/min/1.73 sq.m. Ages 30-39 = 107 mL/min/1.73 sq.m. Ages 40-49 = 99 mL/min/1.73 sq.m. Ages 50-59 = 93 mL/min/1.73 sq.m. Ages 60-69 = 85 mL/min/1.73 sq.m. Ages 70+ = 75 mL/min/1.73 sq.m. Chronic Kidney Disease: Less than 60 mL/min/1.73 square meters End Stage Renal Disease: Less than 15 mL/min/1.73 square meters GFR/1.73 sq M.predicted among non-blacks MDRD (S/P/Bld) [Vol rate/Area] ml/min/1.73sqm Invalid Interpretation Code [employer] Chemistry S Comment on above: Interpretive Data: GFR Population mean for , Non- Americans Ages 20-29 = 116 mL/min/1.73 sq.m. Ages 30-39 = 107 mL/min/1.73 sq.m. Ages 40-49 = 99 mL/min/1.73 sq.m. Ages 50-59 = 93 mL/min/1.73 sq.m. Ages 60-69 = 85 mL/min/1.73 sq.m. Ages 70+ = 75 mL/min/1.73 sq.m. Chronic Kidney Disease: Less than 60 mL/min/1.73 square meters End Stage Renal Disease: Less than 15 mL/min/1.73 square meters Globulin 4.0 G/dL High 1.5 - 3.8 G/dL AH ADM SS Glucose [Mass/Vol] 79 mg/dL Normal 70 - 110 mg/dL AH ADM SS Hematocrit (Bld) [Volume fraction] 32.6 % Low 34.0 - 46.0 % AH Workflow SS Hemoglobin (Bld) [Mass/Vol] 11.2 G/dL Low 12.0 - 16.0 G/dL AH Workflow SS LDH Lactate to pyruvate reaction [Catalytic activity/Vol] 279 1 High 120 - 246 U/L AH ADM SS Lymphocytes (Bld) [#/Vol] 2.2 103/mcL Normal 0.9 - 4.3 10^3/mcL AH Workflow SS Lymphocytes/100 WBC (Bld) 29.4 % Normal 20.0 - 40.0 % AH Workflow SS MCH (RBC) [Entitic mass] 25.4 pg Low 27.0 - 33.0 pg AH Workflow SS MCHC 34.3 G/dL Normal 32.0 - 36.0 G/dL AH Workflow SS MCV (RBC) [Entitic vol] 74.1 fL Low 80.0 - 99.0 fL AH Workflow SS Microcytes Ql (Bld) 2+ *NA* (02/15/23 3:56 PM) Invalid Interpretation Code AH Workflow SS Monocytes (Bld) [#/Vol] 0.5 103/mcL Normal 0.1 - 1.4 10^3/mcL AH Workflow SS Monocytes/100 WBC (Bld) 6.8 % Normal 2.0 - 13.0 % AH Workflow SS Neutrophils (Bld) [#/Vol] 4.6 103/mcL Normal 2.3 - 8.1 10^3/mcL AH Workflow SS Neutrophils/100 WBC (Bld) 63.1 % Normal 50.0 - 75.0 % AH Workflow SS Platelet mean volume (Bld) [Entitic vol] 11.2 fL High 6.6 - 10.5 fL AH Workflow SS Platelets (Bld) [#/Vol] 133 103/mcL Low 150 - 450 10^3/mcL AH Workflow SS Platelets LM Ql (Bld) Normal *NA* (02/15/23 3:56 PM) Invalid Interpretation Code AH Workflow SS Polychromasia LM Ql (Bld) 1+ *NA* (02/15/23 3:56 PM) Invalid Interpretation Code AH Workflow SS Potassium [Moles/Vol] 4.0 mmol/L Normal 3.5 - 5.0 mEq/L AH ADM SS Protein [Mass/Vol] 6.1 G/dL Normal 5.7 - 8.2 G/dL AH ADM SS Comment on above: Interpretive Data: * *Note - New Reference Range in effect 19 RBC (Bld) [#/Vol] 4.40 106/mcL Normal 4.10 - 5.30 10^6/mcL AH Workflow SS Sodium [Moles/Vol] 140 mmol/L Normal 136 - 145 mEq/L AH ADM SS Urea nitrogen [Mass/Vol] 8.0 mg/dL Normal 8.0 - 22.0 mg/dL AH ADM SS Urea nitrogen/Creatinine [Mass ratio] 14.8 ratio Normal 10.0 - 22.0 ratio AH ADM SS WBC (Bld) [#/Vol] 7.0 103/mcL Normal 4.5 - 10.8 10^3/mcL AH Workflow SS LABORATORYOrdered By: Ester Simpson on 02-15-2023 Appearance (U) Turbid *ABN* (02/15/23 3:56 PM) Invalid Interpretation Code Clear AH Auto Urine SS Bilirubin Ql (U) Negative (02/15/23 3:56 PM) Normal Neg-Trace AH Auto Urine SS Color (U) DARK YELLOW Invalid Interpretation Code AH Auto Urine SS Glucose Test strip (U) [Mass/Vol] Negative Normal Negative AH Auto Urine SS Hemoglobin Auto test strip (U) [Mass/Vol] Negative (02/15/23 3:56 PM) Normal Neg-Trace AH Auto Urine SS Ketones Ql (U) Negative Normal Neg-Trace AH Auto Urine SS UA Leuk Est Moderate *ABN* (02/15/23 3:56 PM) Invalid Interpretation Code Negative AH Auto Urine SS UA Nitrite Negative (02/15/23 3:56 PM) Normal Negative AH Auto Urine SS UA pH 7.0 (02/15/23 3:56 PM) Normal 5.0 - 8.0 AH Auto Urine SS UA Protein 30 mg/dL Normal Negative AH Auto Urine SS UA Spec Grav 1.025 (02/15/23 3:56 PM) Normal 1.006-1.02 9 AH Auto Urine SS UA Specimen Type Clean Catch (02/15/23 3:56 PM) Normal AH Auto Urine SS UA Urobilinogen 1.0 E.U./dL Normal 0.2-1.0 AH Auto Urine SS LABORATORYOrdered By: Ester Woodruff on 02-15-2023 Bacteria LM.HPF (Urine sed) [#/Area] 2 /[HPF] Invalid Interpretation Code Negative AH Auto Urine SS UA Mucous 1+ /HPF Normal AH Auto Urine SS UA RBC 10-20 /HPF Invalid Interpretation Code 0-2 AH Auto Urine SS UA Squam Epithelial 10-20 /HPF Normal 0-20 AH Au to Urine SS WBC LM.HPF (Urine sed) [#/Area] 25-50 /HPF Invalid Interpretation Code 0-5 AH Auto Urine SS LABORATORYOrdered By: Phong Griffin on 02-15-2023 Creatinine (U) [Mass/Vol] 222.9 mg/dL Invalid Interpretation Code AH ADM SS Protein (U) [Mass/Vol] 64.1 mg/dL Invalid Interpretation Code AH ADM SS U Ratio Prot/Creat 0.3 ratio Invalid Interpretation Code AH ADM SS LDHon 02-15-2023 LDH 279 U/L High 120-246 [facility] ([place]) Comment on above: Performed By: #### A BSGEL, ANEU, MORPH, ABOGEL, LD, GFR, CBC, ADIFF, CMP ####[place] [id number] [place] [address] RPCURon 02-15-2023 U Creatinine 222.9 mg/dL Normal [facility] ([place]) Comment on above: Performed By: #### U A, UAMIC, RPCUR ####[address] [address] U Protein 64.1 mg/dL Normal [facility] ([place]) Comment on above: Performed By: #### U A, UAMIC, RPCUR ####[place] [address] U Ratio Prot/Creat 0.3 ratio Normal [facility] ([place]) Comment on above: Result Comment: resu lt calculated by rule [id number](U Protein/U Creatinine) Performed By: #### U A, UAMIC, RPCUR ####[place] [address] UAon 02-15-2023 Color (U) DARK YELLOW Normal [facility] ([place]) Comment on above: Performed By: #### U A, UAMIC, RPCUR ####[place] [address] Glucose (U) [Mass/Vol] Negative Normal Negative [facility] ([place]) Comment on above: Performed By: #### U A, UAMIC, RPCUR ####[place] [address] Ketones Ql (U) Negative Normal Neg-Trace [facility] ([place]) Comment on above: Performed By: #### U A, UAMIC, RPCUR ####[place] [address] UA Appear Turbid Abnormal Clear [facility] ([place]) Comment on above: Performed By: #### U A, UAMIC, RPCUR ####[place] [address] UA Blood Negative Normal Neg-Trace [facility] ([place]) Comment on above: Performed By: #### U A, UAMIC, RPCUR ####[place] [address] UA Leuk Est Moderate Abnormal Negative [facility] ([place]) Comment on above: Performed By: #### U A, UAMIC, RPCUR ####[place] [address] UA Nitrite Negative Normal Negative [facility] ([place]) Comment on above: Performed By: #### U A, UAMIC, RPCUR ####[place] [address] UA pH 7.0 Normal 5.0 - 8.0 [facility] ([place]) Comment on above: Performed By: #### U A, UAMIC, RPCUR ####[place] [address] UA Protein 30 mg/dL Normal Negative [facility] ([place]) Comment on above: Performed By: #### U A, UAMIC, RPCUR ####[place] [address] UA Spec Grav 1.025 Normal 1.006-1.02 9 [facility] ([place]) Comment on above: Performed By: #### U A, UAMIC, RPCUR ####[place] [address] UA Specimen Type Clean Catch Normal [facility] ([place]) Comment on above: Performed By: #### U A, UAMIC, RPCUR ####[place] [address] UA Urobilinogen 1.0 E.U./dL Normal 0.2-1.0 [facility] ([place]) Comment on above: Performed By: #### U A, UAMIC, RPCUR ####[place] [address] Urobilinogen (U) [Mass/Vol] Negative Normal Neg-Trace [facility] ([place]) Comment on above: Performed By: #### U A, UAMIC, RPCUR ####[place] [address] UAMICon 02-15-2023 UA Bacteria 2+ /hpf Abnormal Negative [facility] ([place]) Comment on above: Performed By: #### U A, UAMIC, RPCUR ####[place] [address] UA Mucous 1+ /hpf Normal [facility] ([place]) Comment on above: Performed By: #### U A, UAMIC, RPCUR ####[address] [place] [address] UA RBC 10-20 Abnormal 0-2 [facility] ([place]) Comment on above: Performed By: #### U A UAMIC, RPCUR ####[place] [address] UA Squam Epithelial 10-20 Normal 0-20 [facility] ([place]) Comment on above: Performed By: #### U A, UAMIC, RPCUR ####[place] [address] UA WBC 25-50 Abnormal 0-5 [facility] ([place]) Comment on above: Performed By: #### U Mario UAMIC, RPCUR ####[place] [address] CTPCRon 02-13-2023 C. trachomatis Interp Normal See CT Interp N [facility] ([place]) Comment on above: Result Comment: C. t rachomatis DNA not detected. Specimen is presumptive negative forC. trachomatis.A negative result does not preclude C. trachomatis infection becauseresults depend on adequate specimen collection, absence of inhibitors,and sufficient DNA to be detected.See CT Interp N Performed By: #### C TPCR, NGPCR1 ####[place] [address] C.trachomatis PCR Negative Normal Negative [facility] ([place]) Comment on above: Result Comment: Scar guzman (PCR) assay performed on the [employer] 4800 system. Performed By: #### C TPCR, NGPCR1 ####[place] [address] Chlam Source Cervix Normal [facility] ([place]) Comment on above: Performed By: #### C TPCR, NGPCR1 ####[place] [address] CURon 02-13-2023 CUR Normal [facility] ([place]) [id number] 02-13-2023 GC PCR Source Cervix Normal [facility] ([place]) Comment on above: Performed By: #### C TPCR, NGPCR1 ####[address] [address] N. gonorrhoeae (PCR) Negative Normal Negative [facility] ([place]) Comment on above: Result Comment: Scar guzman (PCR) assay performed on the [employer] 4800 System. Performed By: #### C TPCR, NGPCR1 ####[address] [address] N. gonorrhoeae Interp Normal See NG Interp N [facility] ([place]) Comment on above: Result Comment: N. g onorrhoeae DNA not detected. Specimen is presumptive negative forN. gonorrhoeae. A negative result does not preclude Neisseria gonorrhoeaeinfection because results depend on adequate specimen collection, absenceof inhibitors, and sufficient DNA to be detected.See NG Interp N Performed By: #### C TPCR, NGPCR1 ####[address] [address] LABORATORYOrdered By: Aiyana Nathan on 02-12-2023 Appearance (U) Hazy *ABN* (02/12/23 3:40 PM) Invalid Interpretation Code Clear AH Auto Urine SS Bacteria LM.HPF (Urine sed) [#/Area] 3 /[HPF] Invalid Interpretation Code Negative AH Auto Urine SS Bilirubin Ql (U) Negative (02/12/23 3:40 PM) Normal Neg-Trace AH Auto Urine SS Color (U) Yellow (02/12/23 3:40 PM) Normal AH Auto Urine SS Glucose Test strip (U) [Mass/Vol] Negative Normal Negative AH Auto Urine SS Hemoglobin Auto test strip (U) [Mass/Vol] Negative (02/12/23 3:40 PM) Normal Neg-Trace AH Auto Urine SS Ketones Ql (U) Negative Normal Neg-Trace AH Auto Urine SS UA Leuk Est Trace *NA* (02/12/23 3:40 PM) Invalid Interpretation Code Negative AH Auto Urine SS UA Nitrite Negative (02/12/23 3:40 PM) Normal Negative AH Auto Urine SS UA pH 7.5 (02/12/23 3:40 PM) Normal 5.0 - 8.0 AH Auto Urine SS UA Protein Negative Normal Negative AH Auto Urine SS UA RBC 0-2 /HPF Normal 0-2 AH Auto Urine SS UA Spec Grav 1.010 (02/12/23 3:40 PM) Normal 1.006-1.02 9 AH Auto Urine SS UA Specimen Type Clean Catch (02/12/23 3:40 PM) Normal AH Auto Urine SS UA Squam Epithelial 5-10 /HPF Normal 0-20 AH Au to Urine SS UA Transitional Epithelial 0-2 /HPF Normal AH Auto Urine SS UA Urobilinogen 1.0 E.U./dL Normal 0.2-1.0 AH Auto Urine SS WBC LM.HPF (Urine sed) [#/Area] 3-5 /HPF Normal 0-5 AH Auto Urine SS UAon 02-12-2023 Color (U) Yellow Normal [facility] ([place]) Comment on above: Performed By: #### U A, UAMIC ####[place] [address] Glucose (U) [Mass/Vol] Negative Normal Negative [facility] ([place]) Comment on above: Performed By: #### U A, UAMIC ####[place] [address] Ketones Ql (U) Negative Normal Neg-Trace [facility] ([place]) Comment on above: Performed By: #### U A, UAMIC ####[place] [address] UA Appear Hazy Abnormal Clear [facility] ([place]) Comment on above: Performed By: #### U A, UAMIC ####[address] [address] UA Blood Negative Normal Neg-Trace [facility] ([place]) Comment on above: Performed By: #### U A, UAMIC ####[place] [address] UA Leuk Est Trace Normal Negative [facility] ([place]) Comment on above: Performed By: #### U A, UAMIC ####[place] [address] UA Nitrite Negative Normal Negative [facility] ([place]) Comment on above: Performed By: #### U A, UAMIC ####[place] [address] UA pH 7.5 Normal 5.0 - 8.0 [facility] ([place]) Comment on above: Performed By: #### U A, UAMIC ####[address] [address] UA Protein Negative Normal Negative [facility] ([place]) Comment on above: Performed By: #### U A, UAMIC ####[place] [address] UA Spec Grav 1.010 Normal 1.006-1.02 9 [facility] ([place]) Comment on above: Performed By: #### U A, UAMIC ####[place] [address] UA Specimen Type Clean Catch Normal [facility] ([place]) Comment on above: Performed By: #### U A, UAMIC ####[place] [address] UA Urobilinogen 1.0 E.U./dL Normal 0.2-1.0 [facility] ([place]) Comment on above: Performed By: #### U A, UAMIC ####[place] [address] Urobilinogen (U) [Mass/Vol] Negative Normal Neg-Trace [facility] ([place]) Comment on above: Performed By: #### U A, UAMIC ####[place] [address] UAMICon 02-12-2023 UA Bacteria 3+ /hpf Abnormal Negative [facility] ([place]) Comment on above: Performed By: #### U A, UAMIC ####[place] [address] UA RBC 0-2 Normal 0-2 [facility] ([place]) Comment on above: Performed By: #### U A, UAMIC ####[place] [address] UA Squam Epithelial 5-10 Normal 0-20 [facility] ([place]) Comment on above: Performed By: #### U A, UAMIC ####[place] [address] UA Transitional Epithelial 0-2 Normal [facility] ([place]) Comment on above: Performed By: #### U A, UAMIC ####[facility] [place] [address] UA WBC 3-5 Normal 0-5 [facility] ([place]) Comment on above: Performed By: #### U A, UAMIC ####[facility] [place] [address] Progress Noteon 02-11-2023 [employer] Button Paster Authentication Interface Message Text Visit Subjective: Lester Infante is being seen today for an obstetrical visit. She is at 35w5d gestation. Her obstetrical history is significant for gestational diabetes requiring insulin. She was recently hospitalized for rule out labor and was found to have COVID. She reports her symptoms are mild. history fully reviewed. HPI She states she is still having contractions. Review of Systems Negative for shortness of breath, vaginal bleeding or vaginal leakage. Objective: BP 130/63 Pulse 76 Resp 18 Wt (!) 126.2 kg (278 lb 3.2 oz) LMP 05/29/2022 SpO2 98% BMI 49.28 kg/m Physical Exam FHT: Positive Presentation: Breech Uterine Size: S=D Pelvic Exam: Dilation: Closed Effacement: 50% Station: -3 Assessment/Plan: Lester Infante is a 22 y.o. at 35w5d with: Active Non-Hospital Problems Diagnosis Date Noted COVID-19 affecting in third trimester 02/11/2023 She presented to labor and delivery 2 days ago with symptoms of labor. She had mild URI symptoms and had a positive COVID test. She denies shortness of breath or other breathing difficulties. He is afebrile. Warning signs of worsening COVID were discussed. Supervision of high risk in third trimester 01/17/2023 PLAN OF CARE- Co-Manage of [facility] MD/OB APPOINTMENTS Genetic screening: How often should patient be evaluated? Monthly to 28 weeks, q 2 weeks from 28 to 36 weeks then weekly until delivery. Work restrictions: NA EVALUATION surveillance: Biweekly BPPs Ultrasound: Growth every 4 weeks DELIVERY PLAN Hospital: [facility] C/S at 37.1 weeks Cholestasis of C/S scheduled fro 02/21/2022 @ 1100 GBS culture: per OB Contraception: tubal ligation : Pump and bottle Ped: [facility] Name of baby: Santy Vora Vaccinations: rec COVID- declined, Flu- declined and 3rd trimester TDAP- undecided Reviewed on 01/28/2023 GDM, class A2 01/14/2023 Diabetes Mellitus - Type GDM A2: Our review included: Disease History: She failed her 1 hour Glucola at 169 mg/dL and was attempting to OGTT and had emesis and thus was unable to conclude. She has since had patent testing done and I reviewed her blood sugar profile and most of her fasting blood sugars are elevated between 100 and 109 mg/dL securing the diagnosis of GDM. = Glycemic Control and Obstetric Risks: We discussed the desired glycemic targets for maternal health and to reduce preeclampsia risk and promote health (prevent macrosomia and its attendant risks of stillbirth and shoulder dystocia). The glycemic targets were reviewed as: (she will keep a log of her sugars) = Education: I reviewed with her - The qualitative and quantitativeaspects of 2000 calorie ADA diet. The spread of CHO across 3 meals and 2 snacks. The importance of daily activity to promote glycemic control. Potential challenges to achievement were explored and addressed. = Medications: As detailed in the care plan. {We discussed preference for Insulin over Metformin (which freely crosses the placenta into the fetus without penitentiary safety data); however, it is considered and acceptable on a selective basis. = Conclusions: She articulates understanding of the foregoing and care plan. Questions were both encouraged and answered and our [employer] will review her glycemic control weekly and optimize it 01/28/2023 BS log reviewed from 01/22-01/28. 2 elevated fasting 94 and 91. 2 hr PP 4 elevated values 121-129. Pt meets with nutrition on 02/03. We reviewed diet and carb counting. Snacks and Meals . Continue with Levemir 24 units @ HS Reviewed on 01/28/2023 02/04/2023 - Office Visit - MD David: 34w5d . GDMA2- Today we reviewed and discussed: She did not bring her glycemic profile log but states that her fasting blood sugars have been between 97 and 90 mg/dL and 12 postprandials have been between 120 and 128 mg/dL. We have increased her insulin to 28 units daily long-acting. Diet and activity was reviewed. Adequacy of interval growth is encouraging 02/11/2023 - Office Visit - Ena Rivera MD, MS: 35w5d today. Her control is adequate on 28 units of Levemir daily. No change to her current insulin dose is recommended. Care plan discussed with patient 01/14/2023 1. Twice weekly BPP will continue until delivery 2. She is scheduled for repeat on 02/21/2023. At high risk for infection 01/14/2023 Risk for Infectious Diseases: We reviewed prevention strategies for maternal- protection against infectious illnesses. Covid infection risk- vaccination, including Boosters if not already concluded is recommended. She decided against it. Seasonal Flu: Vaccination in available in Oct-Mar window and is recommended. care, antepartum 01/14/2023 02/04/2023 - Office Visit - MD David: 34w5d . Care: = Maternal aspects- jd (more content not included)... Normal [facility] CURon 02-10-2023 [facility] ([place]) LABORATORYOrdered By: Chang varela on 02-10-2023 Blood Glucose Testing Reason Routine (02/10/23 8:20 AM) [facility] Work Phone: Glucose [Mass/Vol] 68 mg/dL Low 70 - 110 mg/dL [facility] Work Phone: LABORATORYOrdered By: Abimbola Puga on 02-10-2023 Glucose [Mass/Vol] 71 mg/dL Normal 70 - 110 mg/dL [facility] Work Phone: .Auto Diffon 02-09-2023 Basophil, Absolute 0.0 10 3/mcL Normal 0.0-0.3 [facility] ([place]) Comment on above: Performed By: #### L IP, FIB, ADIFF, PRO, ANEU, CBC, GFR, CMP ####[facility] [place] [id number] Basophils/100 WBC (Bld) 0.6 % Normal 0.0-2.5 [facility] ([place]) Comment on above: Performed By: #### L IP, FIB, ADIFF, PRO, ANEU, CBC, GFR, CMP ####[address] [address] Eosinophil, Absolute 0.0 10 3/mcL Normal 0.0-0.7 [facility] ([place]) Comment on above: Performed By: #### L IP, FIB, ADIFF, PRO, ANEU, CBC, GFR, CMP ####[address] [address] Eosinophils/100 WBC (Bld) 0.1 % Normal 0.0-6.0 [facility] ([place]) Comment on above: Performed By: #### L IP, FIB, ADIFF, PRO, ANEU, CBC, GFR, CMP ####[address] [address] Lymphocyte, Absolute 0.8 10 3/mcL Low 0.9-4.3 [facility] ([place]) Comment on above: Performed By: #### L IP, FIB, ADIFF, PRO, ANEU, CBC, GFR, CMP ####[address] [address] Lymphocytes/100 WBC (Bld) 11.8 % Low 20.0-40.0 [facility] ([place]) Comment on above: Performed By: #### L IP, FIB, ADIFF, PRO, ANEU, CBC, GFR, CMP ####[address] [address] Monocyte, Absolute 0.7 10 3/mcL Normal 0.1-1.4 [facility] ([place]) Comment on above: Performed By: #### L IP, FIB, ADIFF, PRO, ANEU, CBC, GFR, CMP ####[address] [address] Monocytes/100 WBC (Bld) 10.9 % Normal 2.0-13.0 [facility] ([place]) Comment on above: Performed By: #### L IP, FIB, ADIFF, PRO, ANEU, CBC, GFR, CMP ####[address] [address] Neutrophils/100 WBC (Bld) 76.6 % High 50.0-75.0 [facility] ([place]) Comment on above: Performed By: #### L IP, FIB, ADIFF, PRO, ANEU, CBC, GFR, CMP ####[address] [address] .GFRon 02-09-2023 GFR Non- >60 Normal [facility] ([place]) Comment on above: Result Comment: GFR Population mean for , Non- Americans Ages 20-29 = 116 mL/min/1.73 sq.m. Ages 30-39 = 107 mL/min/1.73 sq.m. Ages 40-49 = 99 mL/min/1.73 sq.m. Ages 50-59 = 93 mL/min/1.73 sq.m. Ages 60-69 = 85 mL/min/1.73 sq.m. Ages 70+ = 75 mL/min/1.73 sq.m.Chronic Kidney Disease: Less than 60 mL/min/1.73 square metersEnd Stage Renal Disease: Less than 15 mL/min/1.73 square meters Performed By: #### L IP, FIB, ADIFF, PRO, ANEU, CBC, GFR, CMP ####[place] [address] GFR >60 Normal [facility] ([place]) Comment on above: Result Comment: GFR Population mean for , Non- Americans Ages 20-29 = 116 mL/min/1.73 sq.m. Ages 30-39 = 107 mL/min/1.73 sq.m. Ages 40-49 = 99 mL/min/1.73 sq.m. Ages 50-59 = 93 mL/min/1.73 sq.m. Ages 60-69 = 85 mL/min/1.73 sq.m. Ages 70+ = 75 mL/min/1.73 sq.m.Chronic Kidney Disease: Less than 60 mL/min/1.73 square metersEnd Stage Renal Disease: Less than 15 mL/min/1.73 square meters Performed By: #### L IP, FIB, ADIFF, PRO, ANEU, CBC, GFR, CMP ####[address] [address] .NEUABSon 02-09-2023 Neutrophil, Absolute 5.0 10 3/mcL Normal 2.3-8.1 [facility] ([place]) Comment on above: Performed By: #### L IP, FIB, ADIFF, PRO, ANEU, CBC, GFR, CMP ####[place] [address] APTTon 02-09-2023 aPTT Coag (Bld) [Time] 25.0 s Normal 25.0-35.0 [facility] ([place]) Comment on above: Result Comment: For Heparin anticoagulation therapy, the recommendedtherapeutic range is: 54-77 seconds (APTT Correlationwith Anti-Xa therapeutic range of 0.3-0.7 units/ml).PLEASE REFERENCE THE PHARMACY PROTOCOL FOR DOSING. Performed By: #### L IP, FIB, ADIFF, PRO, ANEU, CBC, GFR, CMP ####[place] [address] Heparin dose (APTT) Unknown Normal [facility] ([place]) Comment on above: Performed By: #### L IP, FIB, ADIFF, PRO, ANEU, CBC, GFR, CMP ####[place] [address] CBCon 02-09-2023 Erythrocyte distribution width (RBC) [Ratio] 15.3 % Normal 11.5-15.5 [facility] ([place]) Comment on above: Performed By: #### L IP, FIB, ADIFF, PRO, ANEU, CBC, GFR, CMP ####[place] [address] Hematocrit (Bld) [Volume fraction] 30.3 % Low 34.0-46.0 [facility] ([place]) Comment on above: Performed By: #### L IP, FIB, ADIFF, PRO, ANEU, CBC, GFR, CMP ####[place] [address] Hgb 10.1 G/dL Low 12.0-16.0 [facility] ([place]) Comment on above: Performed By: #### L IP, FIB, ADIFF, PRO, ANEU, CBC, GFR, CMP ####[place] [address] MCH (RBC) [Entitic mass] 25.0 pg Low 27.0-33.0 [facility] ([place]) Comment on above: Performed By: #### L IP, FIB, ADIFF, PRO, ANEU, CBC, GFR, CMP ####[place] [address] MCHC 33.2 G/dL Normal 32.0-36.0 [facility] ([place]) Comment on above: Performed By: #### L IP, FIB, ADIFF, PRO, ANEU, CBC, GFR, CMP ####[place] [address] MCV (RBC) [Entitic vol] 75.3 fL Low 80.0-99.0 [facility] ([place]) Comment on above: Performed By: #### L IP, FIB, ADIFF, PRO, ANEU, CBC, GFR, CMP ####[place] [address] Platelet 100 10 3/mcL Low 150-450 [facility] ([place]) Comment on above: Performed By: #### L IP, FIB, ADIFF, PRO, ANEU, CBC, GFR, CMP ####[place] [address] Platelet mean volume (Bld) [Entitic vol] 10.5 fL Normal 6.6-10.5 [facility] ([place]) Comment on above: Performed By: #### L IP, FIB, ADIFF, PRO, ANEU, CBC, GFR, CMP ####[place] [address] RBC 4.03 10 6/mcL Low 4.10-5.30 [facility] ([place]) Comment on above: Performed By: #### L IP, FIB, ADIFF, PRO, ANEU, CBC, GFR, CMP ####[place] [address] WBC 6.5 10 3/mcL Normal 4.5-10.8 [facility] ([place]) Comment on above: Performed By: #### L IP, FIB, ADIFF, PRO, ANEU, CBC, GFR, CMP ####[place] [address] CMPon 02-09-2023 Albumin Level 2.2 G/dL Low 3.2-4.8 [facility] ([place]) Comment on above: Performed By: #### L IP, FIB, ADIFF, PRO, ANEU, CBC, GFR, CMP ####[address] [address] Albumin/Globulin [Mass ratio] 0.6 {ratio} Low 0.9-1.6 [facility] ([place]) Comment on above: Performed By: #### L IP, FIB, ADIFF, PRO, ANEU, CBC, GFR, CMP ####[address] [address] ALP [Catalytic activity/Vol] 260 U/L High 38-126 [facility] ([place]) Comment on above: Performed By: #### L IP, FIB, ADIFF, PRO, ANEU, CBC, GFR, CMP ####[address] [address] ALT [Catalytic activity/Vol] 21 U/L Normal 10-49 [facility] ([place]) Comment on above: Performed By: #### L IP, FIB, ADIFF, PRO, ANEU, CBC, GFR, CMP ####[place] [id number] AST [Catalytic activity/Vol] 21 U/L Normal 8-34 [facility] ([place]) Comment on above: Performed By: #### L IP, FIB, ADIFF, PRO, ANEU, CBC, GFR, CMP ####[place] [address] Bili Total 0.50 mg/dL Normal 0.20-1.20 [facility] ([place]) Comment on above: Result Comment: Use of this assay is not recommended for patients undergoing treatment with eltrombopag due to the potential for falsely elevated results. Performed By: #### L IP, FIB, ADIFF, PRO, ANEU, CBC, GFR, CMP ####[place] [address] BUN/Creatinine Ratio 11.1 ratio Normal 10.0-22.0 [facility] ([place]) Comment on above: Performed By: #### L IP, FIB, ADIFF, PRO, ANEU, CBC, GFR, CMP ####[place] [address] Calcium [Mass/Vol] 8.5 mg/dL Low 8.7-10.4 [facility] ([place]) Comment on above: Performed By: #### L IP, FIB, ADIFF, PRO, ANEU, CBC, GFR, CMP ####[place] [address] Chloride [Moles/Vol] 109 mmol/L Normal 98-110 [facility] ([place]) Comment on above: Performed By: #### L IP, FIB, ADIFF, PRO, ANEU, CBC, GFR, CMP ####[place] [address] CO2 [Moles/Vol] 22 mmol/L Normal 22-32 [facility] ([place]) Comment on above: Performed By: #### L IP, FIB, ADIFF, PRO, ANEU, CBC, GFR, CMP ####[place] [address] Creatinine [Mass/Vol] 0.54 mg/dL Normal 0.50-1.20 [facility] ([place]) Comment on above: Performed By: #### L IP, FIB, ADIFF, PRO, ANEU, CBC, GFR, CMP ####[place] [address] Electrolyte Balance 9.0 mEq/L Normal 4.0-15.0 [facility] ([place]) Comment on above: Performed By: #### L IP, FIB, ADIFF, PRO, ANEU, CBC, GFR, CMP ####[place] [address] Globulin 3.9 G/dL High 1.5-3.8 [facility] ([place]) Comment on above: Performed By: #### L IP, FIB, ADIFF, PRO, ANEU, CBC, GFR, CMP ####[place] [address] Glucose [Mass/Vol] 78 mg/dL Normal 70-110 [facility] ([place]) Comment on above: Performed By: #### L IP, FIB, ADIFF, PRO, ANEU, CBC, GFR, CMP ####[place] [address] Potassium [Moles/Vol] 3.7 mmol/L Normal 3.5-5.0 [facility] ([place]) Comment on above: Performed By: #### L IP, FIB, ADIFF, PRO, ANEU, CBC, GFR, CMP ####[place] [address] Sodium [Moles/Vol] 140 mmol/L Normal 136-145 [facility] ([place]) Comment on above: Performed By: #### L IP, FIB, ADIFF, PRO, ANEU, CBC, GFR, CMP ####[place] [address] Total Protein 6.1 G/dL Normal 5.7-8.2 [facility] ([place]) Comment on above: Result Comment: No te - New Reference Range in effect 19 Performed By: #### L IP, FIB, ADIFF, PRO, ANEU, CBC, GFR, CMP ####[place] [address] Urea nitrogen [Mass/Vol] 6.0 mg/dL Low 8.0-22.0 [facility] ([place]) Comment on above: Performed By: #### L IP, FIB, ADIFF, PRO, ANEU, CBC, GFR, CMP ####[place] [address] CVFLURVon 02-09-2023 FLU A PCR Negative Normal Negative [facility] ([place]) Comment on above: Result Comment: Note s Performed By: #### C VFLURV ####[place] [address] FLU B PCR Negative Normal Negative [facility] ([place]) Comment on above: Result Comment: Note s Performed By: #### C VFLURV ####[place] [address] RSV PCR Negative Normal Negative [facility] ([place]) Comment on above: Result Comment: Note s Performed By: #### C VFLURV ####[place] [address] SARS-CoV-2 (COVID-19) RNA JULIANNE+probe Ql (Unsp spec) Positive Abnormal Negative [facility] ([place]) Comment on above: Result Comment: This organism causes a reportable disease.Infection Control has been notified.Results have been reported to the [facility].Notes [id number] test has been authorized by FDA under an EUA for use by authorized laboratories and has not been FDA cleared or approved.Results from the Xpert Xpress SARS-CoV-2/Flu/RSV or Xpert Xpress SARS-CoV-2 only test should be correlated with the clinical history, epidemiological data, and other data available to the clinician evaluating the patient. Performance of the Xpert Xpress SARS-CoV-2/Flu/RSV or Xpert Xpress SARS-CoV-2 only test has only been established in nasopharyngeal swab specimens.Erroneous test results might occur from improper specimen collection; failure to follow the recommended sample collection, handling, and storage procedures; technical error; or sample mix-up.False negative results may occur if virus is present at levels below the analytical limit of detection.Viral nucleic acid may persist in vivo, independent of virus viability. Detection of analyte target(s) does not imply that the corresponding virus(es) are infectious or are the causative agents for clinical symptoms.Recent patient exposure to FluMist or other live attenuated influenza vaccines may cause inaccurate positive results. Performed By: #### C VFLURV ####[place] [address] Genaro 02-09-2023 Ferritin [Mass/Vol] 4.9 ng/mL Low 8.0-252.0 [facility] ([place]) Comment on above: Performed By: #### F ERR ####[place] [address] FIBon 02-09-2023 Fibrinogen 434 mg/dL Normal 250-560 [facility] ([place]) Comment on above: Performed By: #### L IP, FIB, ADIFF, PRO, ANEU, CBC, GFR, CMP ####[place] [address] LABORATORYOrdered By: Kika evangelista on 02-09-2023 Blood Glucose Testing Reason Routine (02/09/23 9:42 PM) [facility] Work Phone: Glucose [Mass/Vol] 83 mg/dL Normal 70 - 110 mg/dL [facility] Work Phone: LABORATORYOrdered By: Medardo Mello on 02-09-2023 Blood Glucose Testing Reason Routine (02/09/23 7:28 PM) [facility] Work Phone: Time of Stated Blood Glucose [phone] [facility] Work Phone: Time of Stated Blood Glucose [phone] [facility] Work Phone: LABORATORYOrdered By: Vlad Silver on 02-09-2023 aPTT Coag (Bld) [Time] 25.0 s Normal 25.0 - 35.0 seconds [facility] Comment on above: Interpretive Data: F or Heparin anticoagulation therapy, the recommended therapeutic range is: 54-77 seconds (APTT Correlation with Anti-Xa therapeutic range of 0.3-0.7 units/ml). PLEASE REFERENCE THE PHARMACY PROTOCOL FOR DOSING. Fibrinogen 434 mg/dL Normal 250 - 560 mg/dL [facility] Heparin dose (APTT) Unknown (02/09/23 1:28 PM) Normal Coagulation S PT Coag (PPP) [Time] 11.6 s Normal 9.0 - 1 4.2 seconds [facility] Comment on above: Interpretive Data: E ffective 08/29/07, Protime results may be affected by some antibiotics (i.e. Ciprofloxacin, Azithromycin, Bactrim) which may potentiate the action of oral anticoagulants, with further increases in Protime/INR. PT International Ratio 1.0 ratio Invalid Interpretation Code [facility] Comment on above: Interpretive Data: Em flowers [employer] (CHEST, 1992, 102:312S-25S) recommended therapeutic range for oral anticoagulant therapy is: LOW RISK: Prophylaxis of venous thrombosis INR: 2.0-3.0 Treatment of pulmonary embolism 2.0-3.0 Prevention of systemic embolism 2.0-3.0 HIGH RISK: Mechanical prosthetic valves 2.5-3.5 LABORATORYOrdered By: Marly Sanchez on 02-09-2023 ABO and Rh group Nom (Bld) B positive (02/09/23 12:52 PM) [facility] Work Phone: Group B Strep Date Performed [id number] [facility] Work Phone: Group B Strep, External Negative (02/09/23 12:52 PM) [facility] Work Phone: Hepatitis B Date Performed [id number] [facility] Work Phone: Hepatitis B, External Negative (02/09/23 12:52 PM) [facility] Work Phone: HIV Antibodies, External Negative (02/09/23 12:52 PM) [facility] Work Phone: RPR, External Nonreactive (02/09/23 12:52 PM) [facility] Work Phone: Rubella, External Immune (02/09/23 12:52 PM) [facility] Work Phone: LABORATORYOrdered By: SYSTEM SYSTEM on 02-09-2023 Albumin BCP dye [Mass/Vol] 2.2 G/dL Low 3.2 - 4.8 G/dL ADM SS Albumin/Globulin [Mass ratio] 0.6 {ratio} Low 0.9 - 1.6 ratio ADM SS ALP [Catalytic activity/Vol] 260 U/L High 38 - 126 U/L ADM SS ALT No additional P-5'-P [Catalytic activity/Vol] 21 U/L Normal 10 - 49 U/L ADM SS AST [Catalytic activity/Vol] 21 U/L Normal 8 - 34 U/L ADM SS Basophils (Bld) [#/Vol] 0.0 103/mcL Normal 0.0 - 0.3 10^3/mcL Workflow SS Basophils/100 WBC (Bld) 0.6 % Normal 0.0 - 2.5 % Workflow SS Bilirubin [Mass/Vol] 0.50 mg/dL Normal 0.20 - 1.20 mg/dL ADM SS Comment on above: Interpretive Data: U se of this assay is not recommended for patients undergoing treatment with eltrombopag due to the potential for falsely elevated results. Calcium [Mass/Vol] 8.5 mg/dL Low 8.7 - 10. 4 mg/dL ADM SS Chloride [Moles/Vol] 109 mmol/L Normal 98 - 11 0 mEq/L ADM SS CO2 [Moles/Vol] 22 mmol/L Normal 22 - 32 mEq/L ADM SS Creatinine [Mass/Vol] 0.54 mg/dL Normal 0.50 - 1.20 mg/dL ADM SS Electrolyte Balance 9.0 mEq/L Normal 4.0 - 15 .0 mEq/L ADM SS Eosinophils (Bld) [#/Vol] 0.0 103/mcL Normal 0.0 - 0.7 10^3/mcL Workflow SS Eosinophils/100 WBC (Bld) 0.1 % Normal 0.0 - 6.0 % Workflow SS Erythrocyte distribution width (RBC) [Ratio] 15.3 % Normal 11.5 - 15.5 % Workflow SS Ferritin [Mass/Vol] 4.9 ng/mL Low 8.0 - 252.0 ng/mL ADM SS GFR/1.73 sq M.predicted among blacks MDRD (S/P/Bld) [Vol rate/Area] ml/min/1.73sqm Invalid Interpretation Code [employer] [facility] S Comment on above: Interpretive Data: GFR Population mean for , Non- Americans Ages 20-29 = 116 mL/min/1.73 sq.m. Ages 30-39 = 107 mL/min/1.73 sq.m. Ages 40-49 = 99 mL/min/1.73 sq.m. Ages 50-59 = 93 mL/min/1.73 sq.m. Ages 60-69 = 85 mL/min/1.73 sq.m. Ages 70+ = 75 mL/min/1.73 sq.m. Chronic Kidney Disease: Less than 60 mL/min/1.73 square meters End Stage Renal Disease: Less than 15 mL/min/1.73 square meters GFR/1.73 sq M.predicted among non-blacks MDRD (S/P/Bld) [Vol rate/Area] ml/min/1.73sqm Invalid Interpretation Code [employer] Chemistry S Comment on above: Interpretive Data: GFR Population mean for , Non- Americans Ages 20-29 = 116 mL/min/1.73 sq.m. Ages 30-39 = 107 mL/min/1.73 sq.m. Ages 40-49 = 99 mL/min/1.73 sq.m. Ages 50-59 = 93 mL/min/1.73 sq.m. Ages 60-69 = 85 mL/min/1.73 sq.m. Ages 70+ = 75 mL/min/1.73 sq.m. Chronic Kidney Disease: Less than 60 mL/min/1.73 square meters End Stage Renal Disease: Less than 15 mL/min/1.73 square meters Globulin 3.9 G/dL High 1.5 - 3.8 G/dL AH ADM SS Glucose [Mass/Vol] 78 mg/dL Normal 70 - 110 mg/dL AH ADM SS Hematocrit (Bld) [Volume fraction] 30.3 % Low 34.0 - 46.0 % AH Workflow SS Hemoglobin (Bld) [Mass/Vol] 10.1 G/dL Low 12.0 - 16.0 G/dL AH Workflow SS Lipase [Catalytic activity/Vol] 26 U/L Normal 12 - 53 U/L AH ADM SS Comment on above: Interpretive Data: * *Note - New Reference Range in effect 19 Lymphocytes (Bld) [#/Vol] 0.8 103/mcL Low 0.9 - 4.3 10^3/mcL AH Workflow SS Lymphocytes/100 WBC (Bld) 11.8 % Low 20.0 - 40.0 % AH Workflow SS MCH (RBC) [Entitic mass] 25.0 pg Low 27.0 - 33.0 pg AH Workflow SS MCHC 33.2 G/dL Normal 32.0 - 36.0 G/dL AH Workflow SS MCV (RBC) [Entitic vol] 75.3 fL Low 80.0 - 99.0 fL AH Workflow SS Monocytes (Bld) [#/Vol] 0.7 103/mcL Normal 0.1 - 1.4 10^3/mcL AH Workflow SS Monocytes/100 WBC (Bld) 10.9 % Normal 2.0 - 13.0 % AH Workflow SS Neutrophils (Bld) [#/Vol] 5.0 103/mcL Normal 2.3 - 8.1 10^3/mcL AH Workflow SS Neutrophils/100 WBC (Bld) 76.6 % High 50.0 - 75.0 % AH Workflow SS Platelet mean volume (Bld) [Entitic vol] 10.5 fL Normal 6.6 - 10.5 fL AH Workflow SS Platelets (Bld) [#/Vol] 100 103/mcL Low 150 - 450 10^3/mcL AH Workflow SS Potassium [Moles/Vol] 3.7 mmol/L Normal 3.5 - 5.0 mEq/L AH ADM SS Protein [Mass/Vol] 6.1 G/dL Normal 5.7 - 8.2 G/dL AH ADM SS Comment on above: Interpretive Data: * *Note - New Reference Range in effect 19 RBC (Bld) [#/Vol] 4.03 106/mcL Low 4.10 - 5.30 10^6/mcL AH Workflow SS Sodium [Moles/Vol] 140 mmol/L Normal 136 - 145 mEq/L AH ADM SS Urea nitrogen [Mass/Vol] 6.0 mg/dL Low 8.0 - 22.0 mg/dL AH ADM SS Urea nitrogen/Creatinine [Mass ratio] 11.1 ratio Normal 10.0 - 22.0 ratio AH ADM SS WBC (Bld) [#/Vol] 6.5 103/mcL Normal 4.5 - 10.8 10^3/mcL AH Workflow SS LABORATORYOrdered By: Johnny Duke on 02-09-2023 Appearance (U) Clear (02/09/23 11:39 AM) Normal Clear AH Auto Urine SS Bilirubin Ql (U) Negative (02/09/23 11:39 AM) Normal Neg-Trace AH Auto Urine SS Color (U) Yellow (02/09/23 11:39 AM) Normal AH Auto Urine SS Glucose Test strip (U) [Mass/Vol] Negative Normal Negative AH Auto Urine SS Hemoglobin Auto test strip (U) [Mass/Vol] Large *ABN* (02/09/23 11:39 AM) Invalid Interpretation Code Neg-Trace AH Auto Urine SS Ketones Ql (U) Negative Normal Neg-Trace AH Auto Urine SS UA Leuk Est Trace *NA* (02/09/23 11:39 AM) Invalid Interpretation Code Negative AH Auto Urine SS UA Nitrite Negative (02/09/23 11:39 AM) Normal Negative AH Auto Urine SS UA pH 7.5 (02/09/23 11:39 AM) Normal 5.0 - 8.0 AH Auto Urine SS UA Protein Negative Normal Negative AH Auto Urine SS UA Spec Grav <=1.005 *ABN* (02/09/23 11:39 AM) Invalid Interpretation Code 1.006-1.02 9 AH Auto Urine SS UA Specimen Type Catheter (02/09/23 11:39 AM) Normal AH Auto Urine SS UA Urobilinogen 1.0 E.U./dL Normal 0.2-1.0 AH Auto Urine SS LABORATORYOrdered By: Elizabeth Paula on 02-09-2023 Bacteria LM.HPF (Urine sed) [#/Area] 1 /[HPF] Invalid Interpretation Code Negative AH Auto Urine SS UA Mucous 1+ /HPF Normal AH Auto Urine SS UA RBC 3-5 /HPF Invalid Interpretation Code 0-2 AH Auto Urine SS UA Squam Epithelial 10-20 /HPF Normal 0-20 AH Au to Urine SS WBC LM.HPF (Urine sed) [#/Area] 3-5 /HPF Normal 0-5 AH Auto Urine SS Appearance (U) Cloudy *ABN* (02/09/23 9:54 AM) Invalid Interpretation Code Clear AH Auto Urine SS Bacteria LM.HPF (Urine sed) [#/Area] 4 /[HPF] Invalid Interpretation Code Negative AH Auto Urine SS Bilirubin Ql (U) Negative (02/09/23 9:54 AM) Normal Neg-Trace AH Auto Urine SS Color (U) Yellow (02/09/23 9:54 AM) Normal AH Auto Urine SS Glucose Test strip (U) [Mass/Vol] Negative Normal Negative AH Auto Urine SS Hemoglobin Auto test strip (U) [Mass/Vol] Negative (02/09/23 9:54 AM) Normal Neg-Trace AH Auto Urine SS Ketones Ql (U) Negative Normal Neg-Trace AH Auto Urine SS UA Leuk Est Moderate *ABN* (02/09/23 9:54 AM) Invalid Interpretation Code Negative AH Auto Urine SS UA Mucous 2+ /HPF Normal AH Auto Urine SS UA Nitrite Negative (02/09/23 9:54 AM) Normal Negative AH Auto Urine SS UA pH 7.0 (02/09/23 9:54 AM) Normal 5.0 - 8.0 AH Auto Urine SS UA Protein Trace mg/dL Normal Negative AH Auto Urine SS UA RBC Negative Normal 0-2 AH Auto Urine SS UA Spec Grav 1.020 (02/09/23 9:54 AM) Normal 1.006-1.02 9 AH Auto Urine SS UA Specimen Type Clean Catch (02/09/23 9:54 AM) Normal AH Auto Urine SS UA Squam Epithelial 50-100 /HPF Invalid Interpretation Code 0-20 AH Auto Urine SS UA Urobilinogen 1.0 E.U./dL Normal 0.2-1.0 AH Auto Urine SS WBC LM.HPF (Urine sed) [#/Area] 0-2 /HPF Normal 0-5 AH Auto Urine SS LABORATORYOrdered By: Radha Templeton on 02-09-2023 FLUAV RNA JULIANNE+probe Ql (Resp) Negative 9 (02/09/23 10:48 AM) Normal Negative AH Auto Viro/Sero SS Comment on above: Result Comment: [place] [id number] FLUBV RNA JULIANNE+probe Ql (Resp) Negative 10 (02/09/23 10:48 AM) Normal Negative AH Auto Viro/Sero SS Comment on above: Result Comment: [place] [id number] RSV PCR Negative 11 (02/09/23 10:48 AM) Normal Negative AH Auto Viro/Sero SS Comment on above: Result Comment: [place] s [id number] SARS-CoV-2 (COVID-19) RNA JULIANNE+probe Ql (Resp) Positive 7, 8 *ABN* (02/09/23 10:48 AM) Invalid Interpretation Code Negative AH Auto Viro/Sero SS Comment on above: Result Comment: This organism causes a reportable disease. Infection Control has been notified. Results have been reported to the [place] [facility]. Notes [id number] Interpretive Data: T his test has been authorized by FDA under an EUA for use by authorized laboratories and has not been FDA cleared or approved. Results from the Xpert Xpress SARS-CoV-2/Flu/RSV or Xpert Xpress SARS-CoV-2 only test should be correlated with the clinical history, epidemiological data, and other data available to the clinician evaluating the patient. Performance of the Xpert Xpress SARS-CoV-2/Flu/RSV or Xpert Xpress SARS-CoV-2 only test has only been established in nasopharyngeal swab specimens. Erroneous test results might occur from improper specimen collection; failure to follow the recommended sample collection, handling, and storage procedures; technical error; or sample mix-up.False negative results may occur if virus is present at levels below the analytical limit of detection. Viral nucleic acid may persist in vivo, independent of virus viability. Detection of analyte target(s) does not imply that the corresponding virus(es) are infectious or are the causative agents for clinical symptoms.Recent patient exposure to FluMist or other live attenuated influenza vaccines may cause inaccurate positive results. LIPon 02-09-2023 Lipase Level 26 U/L Normal 12-53 [facility] ([place]) Comment on above: Result Comment: No te - New Reference Range in effect 19 Performed By: #### L IP, FIB, ADIFF, PRO, ANEU, CBC, GFR, CMP ####[facility] [place] [id number] No Panel Informationon 02-09 Culture Urine >100,000 cfu/ml Multiple bacterial morphotypes present. Probable Contamination. Suggest recollection if clinically indicated. [facility] Work Phone: PROon 02-09-2023 INR Coag (PPP) [Relative time] 1.0 {INR} Normal [facility] ([place]) Comment on above: Order Comment: blue top underfilled QNS, called kathi 02/09/2023 12:39:05 EST/gsm Result Comment: [employer] (CHEST, 1992, 102:312S-25S)recommended therapeutic range for oral anticoagulant therapy is:LOW RISK: Prophylaxis of venous thrombosis INR: 2.0-3.0 Treatment of pulmonary embolism 2.0-3.0 Prevention of systemic embolism 2.0-3.0HIGH RISK: Mechanical prosthetic valves 2.5-3.5 Performed By: #### L IP, FIB, ADIFF, PRO, ANEU, CBC, GFR, CMP ####[facility] [place] [id number] PT Coag (PPP) [Time] 11.6 s Normal 9.0-14.2 [facility] ([place]) Comment on above: Order Comment: blue top underfilled QNS, called kathi 02/09/2023 12:39:05 EST/gsm Result Comment: Effe ctive 08/29/07, Protime results may be affected by some antibiotics (i.e. Ciprofloxacin, Azithromycin, Bactrim) which may potentiate the action of oral anticoagulants, with further increases in Protime/INR. Performed By: #### L IP, FIB, ADIFF, PRO, ANEU, CBC, GFR, CMP ####[place] [address] UAon 02-09-2023 Color (U) Yellow Normal [facility] ([place]) Comment on above: Performed By: #### U AMIC, UA ####[place] [address] Glucose (U) [Mass/Vol] Negative Normal Negative [facility] ([place]) Comment on above: Performed By: #### U AMIC, UA ####[place] [address] Ketones Ql (U) Negative Normal Neg-Trace [facility] ([place]) Comment on above: Performed By: #### U AMIC, UA ####[place] [address] UA Appear Clear Normal Clear [facility] ([place]) Comment on above: Performed By: #### U AMIC, UA ####[place] [address] UA Blood Large Abnormal Neg-Trace [facility] ([place]) Comment on above: Performed By: #### U AMIC, UA ####[place] [address] UA Leuk Est Trace Normal Negative [facility] ([place]) Comment on above: Performed By: #### U AMIC, UA ####[place] [address] UA Nitrite Negative Normal Negative [facility] ([place]) Comment on above: Performed By: #### U AMIC, UA ####[place] [address] UA pH 7.5 Normal 5.0 - 8.0 [facility] ([place]) Comment on above: Performed By: #### U AMIC, UA ####[place] [address] UA Protein Negative Normal Negative [facility] ([place]) Comment on above: Performed By: #### U AMIC, UA ####[place] [address] UA Spec Grav <=1.005 Abnormal 1.006-1.02 9 [facility] ([place]) Comment on above: Performed By: #### U AMIC, UA ####[place] [address] UA Specimen Type Catheter Normal [facility] ([place]) Comment on above: Performed By: #### U AMIC, UA ####[place] [address] UA Urobilinogen 1.0 E.U./dL Normal 0.2-1.0 [facility] ([place]) Comment on above: Performed By: #### U AMIC, UA ####[place] [address] Urobilinogen (U) [Mass/Vol] Negative Normal Neg-Trace [facility] ([place]) Comment on above: Performed By: #### U AMIC, UA ####[place] [address] Color (U) Yellow Normal [facility] ([place]) Comment on above: Performed By: #### U A, UAMIC ####[place] [address] Glucose (U) [Mass/Vol] Negative Normal Negative [facility] ([place]) Comment on above: Performed By: #### U A, UAMIC ####[place] [address] Ketones Ql (U) Negative Normal Neg-Trace [facility] ([place]) Comment on above: Performed By: #### U A, UAMIC ####[place] [address] UA Appear Cloudy Abnormal Clear [facility] ([place]) Comment on above: Performed By: #### U A, UAMIC ####[place] [address] UA Blood Negative Normal Neg-Trace [facility] ([place]) Comment on above: Performed By: #### U A, UAMIC ####[place] [address] UA Leuk Est Moderate Abnormal Negative [facility] ([place]) Comment on above: Performed By: #### U A, UAMIC ####[place] [address] UA Nitrite Negative Normal Negative [facility] ([place]) Comment on above: Performed By: #### U A, UAMIC ####[place] [address] UA pH 7.0 Normal 5.0 - 8.0 [facility] ([place]) Comment on above: Performed By: #### U A, UAMIC ####[place] [address] UA Protein Trace Normal Negative [facility] ([place]) Comment on above: Performed By: #### U A, UAMIC ####[place] [address] UA Spec Grav 1.020 Normal 1.006-1.02 9 [facility] ([place]) Comment on above: Performed By: #### U A, UAMIC ####[place] [address] UA Specimen Type Clean Catch Normal [facility] ([place]) Comment on above: Performed By: #### U A, UAMIC ####[place] [address] UA Urobilinogen 1.0 E.U./dL Normal 0.2-1.0 [facility] ([place]) Comment on above: Performed By: #### U A, UAMIC ####[place] [address] Urobilinogen (U) [Mass/Vol] Negative Normal Neg-Trace [facility] ([place]) Comment on above: Performed By: #### U A, UAMIC ####[place] [address] UAMICon 02-09-2023 UA Bacteria 1+ /hpf Abnormal Negative [facility] ([place]) Comment on above: Performed By: #### U AMIC, UA ####[facility] [place] [id number] UA Mucous 1+ /hpf Normal [facility] ([place]) Comment on above: Performed By: #### U AMIC, UA ####[facility] [place] [address] UA RBC 3-5 Abnormal 0-2 [facility] ([place]) Comment on above: Performed By: #### U AMIC, UA ####[facility] [place] [address] UA Squam Epithelial 10-20 Normal 0-20 [facility] ([place]) Comment on above: Performed By: #### U AMIC, UA ####[facility] [place] [address] UA WBC 3-5 Normal 0-5 [facility] ([place]) Comment on above: Performed By: #### U AMIC, UA ####[facility] [place] [address] UA Bacteria 4+ /hpf Abnormal Negative [facility] ([place]) Comment on above: Performed By: #### U A, UAMIC ####[facility] [place] [address] UA Mucous 2+ /hpf Normal [facility] ([place]) Comment on above: Performed By: #### U A, UAMIC ####[place] [id number] [place] [address] UA RBC Negative Normal 0-2 [facility] ([place]) Comment on above: Performed By: #### U A, UAMIC ####[facility] [place] [address] UA Squam Epithelial 50-100 Abnormal 0-20 [facility] ([place]) Comment on above: Performed By: #### U A, UAMIC ####[facility] [place] [address] UA WBC 0-2 Normal 0-5 [facility] ([place]) Comment on above: Performed By: #### U A, UAMIC ####[place] [address] Progress Noteon 12-22-2023 Acetone Button Paster Authentication Interface Message Text [facility] - at [address] ARMSTRONG OFFICE VISIT NOTE DOS: 02/04/2023 02/04/2023 Chief Complaint She presents for review of progress in thus far and for comprehensive review of her maternal -obstetric- risks in this . The reasons for the visit are as highlighted in the concluding summary communication to voip network technician which is my problem-based office review. History of Present Illness Lester is a 22 y.o. female at 34w5d. Here for an office visit with was multifaceted and the history of present illness is itemized/organized under applicable individualized problem list assessments as listed below. Obstetric History OB History Para Term AB Living 5 4 3 1 4 SAB IAB Ectopic Multiple Live Births 4 # Outcome Date GA Lbr Dru/2nd Weight Sex Delivery Anes PTL Lv 5 Current 4 11/10/21 36w6d 3.949 kg F CS-LTranv Spinal MELISSA Comments: decreased movement Complications: Intolerance 3 Term 06/06/20 39w1d 4.288 kg M CS-LTranv Spinal MELISSA 2 Term 07/16/19 39w0d 3.77 kg F CS-LTranv Spinal MELISSA 1 Term 11/21/17 37w0d 3.77 kg M CS-Unspec EPI MELISSA Complications: Intolerance, Cephalopelvic Disproportion - I reviewed it at patient encounter and pertinent aspects are integrated into the below problem list-based assessment Past Medical History Past Medical History: Diagnosis Date Cholestasis of , antepartum 01/14/2023 - I reviewed it at patient encounter and pertinent aspects are integrated into the below problem list-based assessment Social History - I reviewed it at patient encounter and pertinent aspects are integrated into the below problem list-based assessment Family History - I reviewed it at patient encounter, including screening genetic pedigree as available, and pertinent aspects are integrated into the below problem list-based assessment Medications and Allergies . No Known Allergies - I reviewed it at patient encounter and are integrated into the below problem list-based assessment. Allergies were reviewed Laboratory Studies and Imaging studies - I reviewed it at patient encounter and pertinent aspects are integrated into assessments. Vitals BP 126/61 Pulse 81 Resp 18 Wt (!) 124.5 kg (274 lb 6.4 oz) LMP 05/29/2022 SpO2 98% BMI 48.61 kg/m - heart rate as per imaging report today, as applicable and available. ASSESSMENT AND PLAN After integrating maternal and obstetric and considerations, my recommendations are as assembled. Active Non-Hospital Problems Diagnosis Date Noted Supervision of high risk in third trimester 01/17/2023 PLAN OF CARE- Co-Manage of [facility] MD/OB APPOINTMENTS Genetic screening: How often should patient be evaluated? Monthly to 28 weeks, q 2 weeks from 28 to 36 weeks then weekly until delivery. Work restrictions: NA EVALUATION surveillance: Biweekly BPPs Ultrasound: Growth every 4 weeks DELIVERY PLAN Hospital: [facility] C/S at 37.1 weeks Cholestasis of C/S scheduled fro 02/21/2022 @ 1100 GBS culture: per OB Contraception: tubal ligation : Pump and bottle Ped: [facility] Name of baby: Santy Vora Vaccinations: rec COVID- declined, Flu- declined and 3rd trimester TDAP- undecided Reviewed on 01/28/2023 GDM, class A2 01/14/2023 Diabetes Mellitus - Type GDM A2: Our review included: Disease History: She failed her 1 hour Glucola at 169 mg/dL and was attempting to OGTT and had emesis and thus was unable to conclude. She has since had patent testing done and I reviewed her blood sugar profile and most of her fasting blood sugars are elevated between 100 and 109 mg/dL securing the diagnosis of GDM. = Glycemic Control and Obstetric Risks: We discussed the desired glycemic targets for maternal health and to reduce preeclampsia risk and promote health (prevent macrosomia and its attendant risks of stillbirth and shoulder dystocia). The glycemic targets were reviewed as: (she will keep a log of her sugars) = Education: I reviewed with her - The qualitative and quantitativeaspects of 2000 calorie ADA diet. The spread of CHO across 3 meals and 2 snacks. The importance of daily activity to promote glycemic control. Potential challenges to achievement were explored and addressed. = Medications: As detailed in the care plan. {We discussed preference for Insulin over Metformin (which freely crosses the placenta into the fetus without terminal carman safety data); however, it is considered and acceptable on a selective basis. = Conclusions: She articulates understanding of the foregoing and care plan. Questions were both encouraged and answered and our BIOLOGY ADJUNCT INSTRUCTOR will review her glycemic control weekly and optimize it 01/28/2023 BS log reviewed from 01/22-01/28. 2 elevated fasting 94 and 91. 2 hr PP 4 elevated value (more content not included)... Normal [facility] CTPCRon 01-28-2023 C. trachomatis Interp Normal See CT Interp N [facility] ([place]) Comment on above: Result Comment: C. t rachomatis DNA not detected. Specimen is presumptive negative forC. trachomatis.A negative result does not preclude C. trachomatis infection becauseresults depend on adequate specimen collection, absence of inhibitors,and sufficient DNA to be detected.See CT Interp N Performed By: #### C TPCR, NGPCR1, GBSPCR ####[address] [address] C.trachomatis PCR Negative Normal Negative [facility] ([place]) Comment on above: Result Comment: Mole cular (PCR) assay performed on the [employer]00 system. Performed By: #### C TPCR, NGPCR1, GBSPCR ####[address] [address] Chlam Source Cervix Normal [facility] ([place]) Comment on above: Performed By: #### C TPCR, NGPCR1, GBSPCR ####[place] [address] [id number] 01-28-2023 GC PCR Source Cervix Normal [facility] ([place]) Comment on above: Performed By: #### C TPCR, NGPCR1, GBSPCR ####[place] [address] N. gonorrhoeae (PCR) Negative Normal Negative [facility] ([place]) Comment on above: Result Comment: Mole cular (PCR) assay performed on the [employer] 4800 System. Performed By: #### C TPCR, NGPCR1, GBSPCR ####[address] [address] N. gonorrhoeae Interp Normal See NG Interp N [facility] ([place]) Comment on above: Result Comment: N. g onorrhoeae DNA not detected. Specimen is presumptive negative forN. gonorrhoeae. A negative result does not preclude Neisseria gonorrhoeaeinfection because results depend on adequate specimen collection, absenceof inhibitors, and sufficient DNA to be detected.See NG Interp N Performed By: #### C TPCR, NGPCR1, GBSPCR ####[place] [address] Progress Noteon 01-28-2023 Acetone Button Paster Authentication Interface Message Text Comanage GestationalDiabetes Mellitus Lester Infante is seen at 33w5d for comanagement of Gestational Diabetes Mellitus and Cholestasis of and Obesity . She complains of pruritus . Her blood glucose record was reviewed. Current dose is Levemir 24 units . No changes in dosing. History of Presenting Problem: She is unaccompanied. Lester denies any cramping, contractions, vaginal bleeding, unusual or increase in vaginal discharge, signs and symptoms of pre-eclampsia, or leaking of any fluid. Patient with positive movement. Gestational Diabetes Lester presents today for her comanage visit. She has GDMA2 diabetes. The disease course is fluctuating. Current treatments include insulin injections. She is compliant with treatment most of the time. Blood glucose readings reviewed. Readings are as follows: BS log reviewed from 01/22-01/28. 2 elevated fasting 91 and 94 anf 4 elevated 2 hr PP 121-129. Pt has appt with nutrition on 02/03. Continue with Levemir 24u @ HS. Prior visit with dietitian: scheduled 02/03/2023. Past Medical History: Past Medical History: Diagnosis Date Cholestasis of , antepartum 01/14/2023 Past Surgical History: Procedure Laterality Date SECTION, LOW TRANSVERSE x 4 Medications: Outpatient Encounter Medications as of 01/28/2023 Medication Sig Dispense Refill famotidine (PEPCID) 20 MG tablet Take 1 Tablet (20 mg) by mouth daily Vit w/Le-Kodfxiitq-JI (PNV PO) Take 1 Tablet by mouth daily ferrous sulfate (FEOSOL) 325 (65 FE) MG TABS tablet Take by mouth daily [DISCONTINUED] ursodiol (ACTIGALL) 300 MG capsule Take 1 Capsule (300 mg) by mouth 2 times daily ursodiol (ACTIGALL) 300 MG capsule Take 1 Capsule (300 mg) by mouth 3 times daily for 30 days 90 Capsule 1 RA ALCOHOL SWABS 70 % PADS Blood Glucose Monitoring Suppl (ONE TOUCH ULTRA 2) w/Device KIT use as directed to CHECK BLOOD SUGAR four times a day FREESTYLE PRECISION DANAY TEST test strip FREESTYLE LANCETS MISC insulin detemir (LEVEMIR) 100 UNIT/ML SOLN injection Inject 20 Units into the skin nightly at bedtime for 150 days (Patient taking differently: Inject 20 Units into the skin nightly at bedtime 24u Taking 1 hour before dinner) 10 mL 2 Insulin Syringe-Needle U-100 31G X 5/16 1 ML MISC Use as directed 40 Each 3 No facility-administered encounter medications on file as of 01/28/2023. Allergies: No Known Allergies Family Medical History: Family History Problem Relation Age of Onset No known problems Mother High Blood Pressure Father Diabetes Mellitus II Paternal Grandmother Heart Disease Paternal Grandfather Diabetes Mellitus II Paternal Grandfather Social History: Social History Socioeconomic History Marital status: Spouse name: None Number of children: None Years of education: None Highest education level: None Tobacco Use Smoking status: Never Smokeless tobacco: Never Substance and Sexual Activity Alcohol use: Not Currently Drug use: Never Physical Exam: Vitals Extended BP: 118/62 Weight - Scale: (!) 123.1 kg (271 lb 4.8 oz) Heart Rate: Positive Number of Fetuses: 1 Heart Rate: done per ultrasound Movement: Present Vaginal Bleeding: Absent Cramps / Contractions: Present (cramping) Mucous Discharge: Absent FHT A: 150 Presentation: cephalic Ultrasound: see report- mild polyhydramnios Assessment/Plan: Lester Infante is a 22 y.o. at 33w5d with: Active Non-Hospital Problems Diagnosis Date Noted Supervision of high risk in third trimester 01/17/2023 PLAN OF CARE- Co-Manage of [facility] MD/OB APPOINTMENTS Genetic screening: How often should patient be evaluated? Monthly to 28 weeks, q 2 weeks from 28 to 36 weeks then weekly until delivery. Work restrictions: NA EVALUATION surveillance: Biweekly BPPs Ultrasound: Growth every 4 weeks DELIVERY PLAN Hospital: [facility] C/S at 37.1 weeks Cholestasis of C/S scheduled fro 02/21/2022 @ 1100 GBS culture: per OB Contraception: tubal ligation : Pump and bottle Ped: [facility] Name of baby: [place] Vaccinations: rec COVID- declined, Flu- declined and 3rd trimester TDAP- undecided Reviewed on 01/28/2023 GDM, class A2 01/14/2023 Diabetes Mellitus - Type GDM A2: Our review included: Disease History: She failed her 1 hour Glucola at 169 mg/dL and was attempting to OGTT and had emesis and thus was unable to conclude. She has since had patent testing done and I reviewed her blood sugar profile and most of her fasting blood sugars are elevated between 100 and 109 mg/dL securing the diagnosis of GDM. = Glycemic Control and Obstetric Risks: We discussed the desired glycemic targets for maternal health and to reduce preeclampsia risk and promote health (prevent macrosomia and its attendant risks of stillbirth and shoulder (more content not included)... Normal [facility] US ABDOMEN LIMITEDon 023 US ABDOMEN LIMITED Normal [facility] ([place]) CURon 01-27-2023 CUR Normal [facility] ([place]) GBSPCRon 01-27-2023 Group B Strep (PCR) Negative Normal Negative [facility] ([place]) Comment on above: Result Comment: Note s Performed By: #### C TPCR, NGPCR1, GBSPCR ####[address] [address] Group B Strep PCR Int Normal [facility] ([place]) Comment on above: Result Comment: Grou p B Streptococcus DNA not detected by Real-Time Polymerase Chain Reaction (PCR). A negative result does rule out the possibility of Group B Streptococcus. False Negative results may occur when Group B Streptococcus concentration is below the level of detection. If the patient has signs or symptoms of infection, other laboratory tests and clinical information should be used to confirm the negative result. This test is not intended to differentiate carriers of Group B Streptococcus from those with Streptococcus disease.See Below Performed By: #### C TPCR, NGPCR1, GBSPCR ####[address] [address] .Auto Diffon 01-26-2023 Basophil, Absolute 0.0 10 3/mcL Normal 0.0-0.3 [facility] ([place]) Comment on above: Performed By: #### C MP, GFR, CBC, LIP, ANEU, ADIFF ####[place] [id number] [place] [address] Basophils/100 WBC (Bld) 0.4 % Normal 0.0-2.5 [facility] ([place]) Comment on above: Performed By: #### C MP, GFR, CBC, LIP, ANEU, ADIFF ####[address] [address] Eosinophil, Absolute 0.0 10 3/mcL Normal 0.0-0.7 [facility] ([place]) Comment on above: Performed By: #### C MP, GFR, CBC, LIP, ANEU, ADIFF ####[address] [address] Eosinophils/100 WBC (Bld) 0.2 % Normal 0.0-6.0 [facility] ([place]) Comment on above: Performed By: #### C MP, GFR, CBC, LIP, ANEU, ADIFF ####[address] [address] Lymphocyte, Absolute 2.0 10 3/mcL Normal 0.9-4.3 [facility] ([place]) Comment on above: Performed By: #### C MP, GFR, CBC, LIP, ANEU, ADIFF ####[address] [address] Lymphocytes/100 WBC (Bld) 22.0 % Normal 20.0-40.0 [facility] ([place]) Comment on above: Performed By: #### C MP, GFR, CBC, LIP, ANEU, ADIFF ####[address] [address] Monocyte, Absolute 0.6 10 3/mcL Normal 0.1-1.4 [facility] ([place]) Comment on above: Performed By: #### C MP, GFR, CBC, LIP, ANEU, ADIFF ####[address] [address] Monocytes/100 WBC (Bld) 6.3 % Normal 2.0-13.0 [facility] ([place]) Comment on above: Performed By: #### C MP, GFR, CBC, LIP, ANEU, ADIFF ####[address] [address] Neutrophils/100 WBC (Bld) 71.1 % Normal 50.0-75.0 [facility] ([place]) Comment on above: Performed By: #### C MP, GFR, CBC, LIP, ANEU, ADIFF ####[address] [address] .GFRon 01-26-2023 GFR Non- >60 Normal [facility] ([place]) Comment on above: Result Comment: GFR Population mean for , Non- Americans Ages 20-29 = 116 mL/min/1.73 sq.m. Ages 30-39 = 107 mL/min/1.73 sq.m. Ages 40-49 = 99 mL/min/1.73 sq.m. Ages 50-59 = 93 mL/min/1.73 sq.m. Ages 60-69 = 85 mL/min/1.73 sq.m. Ages 70+ = 75 mL/min/1.73 sq.m.Chronic Kidney Disease: Less than 60 mL/min/1.73 square metersEnd Stage Renal Disease: Less than 15 mL/min/1.73 square meters Performed By: #### C MP, GFR, CBC, LIP, ANEU, ADIFF ####[address] [address] GFR >60 Normal [facility] ([place]) Comment on above: Result Comment: GFR Population mean for , Non- Americans Ages 20-29 = 116 mL/min/1.73 sq.m. Ages 30-39 = 107 mL/min/1.73 sq.m. Ages 40-49 = 99 mL/min/1.73 sq.m. Ages 50-59 = 93 mL/min/1.73 sq.m. Ages 60-69 = 85 mL/min/1.73 sq.m. Ages 70+ = 75 mL/min/1.73 sq.m.Chronic Kidney Disease: Less than 60 mL/min/1.73 square metersEnd Stage Renal Disease: Less than 15 mL/min/1.73 square meters Performed By: #### C MP, GFR, CBC, LIP, ANEU, ADIFF ####[address] [address] .NEUABSon 01-26-2023 Neutrophil, Absolute 6.4 10 3/mcL Normal 2.3-8.1 [facility] ([place]) Comment on above: Performed By: #### C MP, GFR, CBC, LIP, ANEU, ADIFF ####[place] [address] CBCon 01-26-2023 Erythrocyte distribution width (RBC) [Ratio] 15.0 % Normal 11.5-15.5 [facility] ([place]) Comment on above: Performed By: #### C MP, GFR, CBC, LIP, ANEU, ADIFF ####[place] [address] Hematocrit (Bld) [Volume fraction] 33.0 % Low 34.0-46.0 [facility] ([place]) Comment on above: Performed By: #### C MP, GFR, CBC, LIP, ANEU, ADIFF ####[place] [address] Hgb 11.1 G/dL Low 12.0-16.0 [facility] ([place]) Comment on above: Performed By: #### C MP, GFR, CBC, LIP, ANEU, ADIFF ####[place] [address] MCH (RBC) [Entitic mass] 25.0 pg Low 27.0-33.0 [facility] ([place]) Comment on above: Performed By: #### C MP, GFR, CBC, LIP, ANEU, ADIFF ####[place] [address] MCHC 33.7 G/dL Normal 32.0-36.0 [facility] ([place]) Comment on above: Performed By: #### C MP, GFR, CBC, LIP, ANEU, ADIFF ####[place] [address] MCV (RBC) [Entitic vol] 74.1 fL Low 80.0-99.0 [facility] ([place]) Comment on above: Performed By: #### C MP, GFR, CBC, LIP, ANEU, ADIFF ####[place] [address] Platelet 132 10 3/mcL Low 150-450 [facility] ([place]) Comment on above: Performed By: #### C MP, GFR, CBC, LIP, ANEU, ADIFF ####[place] [address] Platelet mean volume (Bld) [Entitic vol] 10.3 fL Normal 6.6-10.5 [facility] ([place]) Comment on above: Performed By: #### C MP, GFR, CBC, LIP, ANEU, ADIFF ####[place] [address] RBC 4.45 10 6/mcL Normal 4.10-5.30 [facility] ([place]) Comment on above: Performed By: #### C MP, GFR, CBC, LIP, ANEU, ADIFF ####[place] [address] WBC 9.1 10 3/mcL Normal 4.5-10.8 [facility] ([place]) Comment on above: Performed By: #### C MP, GFR, CBC, LIP, ANEU, ADIFF ####[place] [address] CMPon 01-26-2023 Albumin Level 2.3 G/dL Low 3.2-4.8 [facility] ([place]) Comment on above: Performed By: #### C MP, GFR, CBC, LIP, ANEU, ADIFF ####[place] [address] Albumin/Globulin [Mass ratio] 0.6 {ratio} Low 0.9-1.6 [facility] ([place]) Comment on above: Performed By: #### C MP, GFR, CBC, LIP, ANEU, ADIFF ####[place] [address] ALP [Catalytic activity/Vol] 245 U/L High 38-126 [facility] ([place]) Comment on above: Performed By: #### C MP, GFR, CBC, LIP, ANEU, ADIFF ####[place] [address] ALT [Catalytic activity/Vol] 32 U/L Normal 10-49 [facility] ([place]) Comment on above: Performed By: #### C MP, GFR, CBC, LIP, ANEU, ADIFF ####[address] [address] AST [Catalytic activity/Vol] 22 U/L Normal 8-34 [facility] ([place]) Comment on above: Performed By: #### C MP, GFR, CBC, LIP, ANEU, ADIFF ####[address] [address] Bili Total 0.40 mg/dL Normal 0.20-1.20 [facility] ([place]) Comment on above: Result Comment: Use of this assay is not recommended for patients undergoing treatment with eltrombopag due to the potential for falsely elevated results. Performed By: #### C MP, GFR, CBC, LIP, ANEU, ADIFF ####[place] [address] BUN/Creatinine Ratio 16.7 ratio Normal 10.0-22.0 [facility] ([place]) Comment on above: Performed By: #### C MP, GFR, CBC, LIP, ANEU, ADIFF ####[address] [address] Calcium [Mass/Vol] 8.8 mg/dL Normal 8.7-10.4 [facility] ([place]) Comment on above: Performed By: #### C MP, GFR, CBC, LIP, ANEU, ADIFF ####[address] [address] Chloride [Moles/Vol] 107 mmol/L Normal 98-110 [facility] ([place]) Comment on above: Performed By: #### C MP, GFR, CBC, LIP, ANEU, ADIFF ####[address] [address] CO2 [Moles/Vol] 26 mmol/L Normal 22-32 [facility] ([place]) Comment on above: Performed By: #### C MP, GFR, CBC, LIP, ANEU, ADIFF ####[address] [address] Creatinine [Mass/Vol] 0.48 mg/dL Low 0.50-1.20 [facility] ([place]) Comment on above: Performed By: #### C MP, GFR, CBC, LIP, ANEU, ADIFF ####[address] [address] Electrolyte Balance 4.0 mEq/L Normal 4.0-15.0 [facility] ([place]) Comment on above: Performed By: #### C MP, GFR, CBC, LIP, ANEU, ADIFF ####[address] [address] Globulin 4.1 G/dL High 1.5-3.8 [facility] ([place]) Comment on above: Performed By: #### C MP, GFR, CBC, LIP, ANEU, ADIFF ####[address] [address] Glucose [Mass/Vol] 121 mg/dL High 70-110 [facility] ([place]) Comment on above: Performed By: #### C MP, GFR, CBC, LIP, ANEU, ADIFF ####[address] [address] Potassium [Moles/Vol] 3.9 mmol/L Normal 3.5-5.0 [facility] ([place]) Comment on above: Performed By: #### C MP, GFR, CBC, LIP, ANEU, ADIFF ####[address] [address] Sodium [Moles/Vol] 137 mmol/L Normal 136-145 [facility] ([place]) Comment on above: Performed By: #### C MP, GFR, CBC, LIP, ANEU, ADIFF ####[address] [address] Total Protein 6.4 G/dL Normal 5.7-8.2 [facility] ([place]) Comment on above: Result Comment: No te - New Reference Range in effect 19 Performed By: #### C MP, GFR, CBC, LIP, ANEU, ADIFF ####[address] [address] Urea nitrogen [Mass/Vol] 8.0 mg/dL Normal 8.0-22.0 [facility] ([place]) Comment on above: Performed By: #### C MP, GFR, CBC, LIP, ANEU, ADIFF ####[place] [address] CVFLURVon 01-26-2023 FLU A PCR Negative Normal Negative [facility] ([place]) Comment on above: Result Comment: [place] s [id number] Performed By: #### C VFLURV ####[place] [address] FLU B PCR Negative Normal Negative [facility] ([place]) Comment on above: Result Comment: [place] s [id number] Performed By: #### C VFLURV ####[place] [address] RSV PCR Negative Normal Negative [facility] ([place]) Comment on above: Result Comment: [place] s [id number] Performed By: #### C VFLURV ####[place] [address] SARS-CoV-2 (COVID-19) RNA JULIANNE+probe Ql (Unsp spec) Negative Normal Negative [facility] ([place]) Comment on above: Result Comment: Note s [id number] test has been authorized by FDA under an EUA for use by authorized laboratories and has not been FDA cleared or approved.Results from the Xpert Xpress SARS-CoV-2/Flu/RSV or Xpert Xpress SARS-CoV-2 only test should be correlated with the clinical history, epidemiological data, and other data available to the clinician evaluating the patient. Performance of the Xpert Xpress SARS-CoV-2/Flu/RSV or Xpert Xpress SARS-CoV-2 only test has only been established in nasopharyngeal swab specimens.Erroneous test results might occur from improper specimen collection; failure to follow the recommended sample collection, handling, and storage procedures; technical error; or sample mix-up.False negative results may occur if virus is present at levels below the analytical limit of detection.Viral nucleic acid may persist in vivo, independent of virus viability. Detection of analyte target(s) does not imply that the corresponding virus(es) are infectious or are the causative agents for clinical symptoms.Recent patient exposure to FluMist or other live attenuated influenza vaccines may cause inaccurate positive results. Performed By: #### C VFLURV ####[place] [id number] [place] [address] LABORATORYOrdered By: Elizabeth Paula on 01-26-2023 Appearance (U) Cloudy *ABN* (01/26/23 12:23 PM) Invalid Interpretation Code Clear AH Auto Urine SS Bacteria LM.HPF (Urine sed) [#/Area] 4 /[HPF] Invalid Interpretation Code Negative AH Auto Urine SS Bilirubin Ql (U) Negative (01/26/23 12:23 PM) Normal Neg-Trace AH Auto Urine SS Color (U) Yellow (01/26/23 12:23 PM) Normal AH Auto Urine SS Glucose Test strip (U) [Mass/Vol] Negative Normal Negative AH Auto Urine SS Hemoglobin Auto test strip (U) [Mass/Vol] Negative (01/26/23 12:23 PM) Normal Neg-Trace AH Auto Urine SS Ketones Ql (U) Negative Normal Neg-Trace AH Auto Urine SS UA Leuk Est Small *ABN* (01/26/23 12:23 PM) Invalid Interpretation Code Negative AH Auto Urine SS UA Nitrite Negative (01/26/23 12:23 PM) Normal Negative AH Auto Urine SS UA pH 7.5 (01/26/23 12:23 PM) Normal 5.0 - 8.0 AH Auto Urine SS UA Protein Negative Normal Negative AH Auto Urine SS UA RBC Negative Normal 0-2 AH Auto Urine SS UA Spec Grav 1.015 (01/26/23 12:23 PM) Normal 1.006-1.02 9 AH Auto Urine SS UA Specimen Type Clean Catch (01/26/23 12:23 PM) Normal AH Auto Urine SS UA Squam Epithelial 25-50 /HPF Invalid Interpretation Code 0-20 AH Auto Urine SS UA Urobilinogen 1.0 E.U./dL Normal 0.2-1.0 AH Auto Urine SS WBC LM.HPF (Urine sed) [#/Area] 3-5 /HPF Normal 0-5 AH Auto Urine SS LABORATORYOrdered By: Radha Templeton on 01-26-2023 FLUAV RNA JULIANNE+probe Ql (Resp) Negative 6 (01/26/23 11:31 AM) Normal Negative AH Auto Viro/Sero SS Comment on above: Result Comment: Note s FLUBV RNA JULIANNE+probe Ql (Resp) Negative 7 (01/26/23 11:31 AM) Normal Negative AH Auto Viro/Sero SS Comment on above: Result Comment: [place] [id number] RSV PCR Negative 8 (01/26/23 11:31 AM) Normal Negative AH Auto Viro/Sero SS Comment on above: Result Comment: [place] [id number] SARS-CoV-2 (COVID-19) RNA JULIANNE+probe Ql (Resp) Negative 4, 5 (01/26/23 11:31 AM) Normal Negative AH Auto Viro/Sero SS Comment on above: Result Comment: [place] s [id number] Interpretive Data: T his test has been authorized by FDA under an EUA for use by authorized laboratories and has not been FDA cleared or approved. Results from the Xpert Xpress SARS-CoV-2/Flu/RSV or Xpert Xpress SARS-CoV-2 only test should be correlated with the clinical history, epidemiological data, and other data available to the clinician evaluating the patient. Performance of the Xpert Xpress SARS-CoV-2/Flu/RSV or Xpert Xpress SARS-CoV-2 only test has only been established in nasopharyngeal swab specimens. Erroneous test results might occur from improper specimen collection; failure to follow the recommended sample collection, handling, and storage procedures; technical error; or sample mix-up.False negative results may occur if virus is present at levels below the analytical limit of detection. Viral nucleic acid may persist in vivo, independent of virus viability. Detection of analyte target(s) does not imply that the corresponding virus(es) are infectious or are the causative agents for clinical symptoms.Recent patient exposure to FluMist or other live attenuated influenza vaccines may cause inaccurate positive results. LABORATORYOrdered By: SYSTEM SYSTEM on 01-26-2023 Albumin BCP dye [Mass/Vol] 2.3 G/dL Low 3.2 - 4.8 G/dL ADM SS Albumin/Globulin [Mass ratio] 0.6 {ratio} Low 0.9 - 1.6 ratio AH ADM SS ALP [Catalytic activity/Vol] 245 U/L High 38 - 126 U/L AH ADM SS ALT No additional P-5'-P [Catalytic activity/Vol] 32 U/L Normal 10 - 49 U/L AH ADM SS AST [Catalytic activity/Vol] 22 U/L Normal 8 - 34 U/L AH ADM SS Basophils (Bld) [#/Vol] 0.0 103/mcL Normal 0.0 - 0.3 10^3/mcL AH Workflow SS Basophils/100 WBC (Bld) 0.4 % Normal 0.0 - 2.5 % Workflow SS Bilirubin [Mass/Vol] 0.40 mg/dL Normal 0.20 - 1.20 mg/dL ADM SS Comment on above: Interpretive Data: U se of this assay is not recommended for patients undergoing treatment with eltrombopag due to the potential for falsely elevated results. Calcium [Mass/Vol] 8.8 mg/dL Normal 8.7 - 10. 4 mg/dL ADM SS Chloride [Moles/Vol] 107 mmol/L Normal 98 - 11 0 mEq/L ADM SS CO2 [Moles/Vol] 26 mmol/L Normal 22 - 32 mEq/L ADM SS Creatinine [Mass/Vol] 0.48 mg/dL Low 0.50 - 1.20 mg/dL ADM SS Electrolyte Balance 4.0 mEq/L Normal 4.0 - 15 .0 mEq/L ADM SS Eosinophils (Bld) [#/Vol] 0.0 103/mcL Normal 0.0 - 0.7 10^3/mcL Workflow SS Eosinophils/100 WBC (Bld) 0.2 % Normal 0.0 - 6.0 % Workflow SS Erythrocyte distribution width (RBC) [Ratio] 15.0 % Normal 11.5 - 15.5 % Workflow SS GFR/1.73 sq M.predicted among blacks MDRD (S/P/Bld) [Vol rate/Area] ml/min/1.73sqm Invalid Interpretation Code Chemistry S Comment on above: Interpretive Data: GFR Population mean for , Non- Americans Ages 20-29 = 116 mL/min/1.73 sq.m. Ages 30-39 = 107 mL/min/1.73 sq.m. Ages 40-49 = 99 mL/min/1.73 sq.m. Ages 50-59 = 93 mL/min/1.73 sq.m. Ages 60-69 = 85 mL/min/1.73 sq.m. Ages 70+ = 75 mL/min/1.73 sq.m. Chronic Kidney Disease: Less than 60 mL/min/1.73 square meters End Stage Renal Disease: Less than 15 mL/min/1.73 square meters GFR/1.73 sq M.predicted among non-blacks MDRD (S/P/Bld) [Vol rate/Area] ml/min/1.73sqm Invalid Interpretation Code Chemistry S Comment on above: Interpretive Data: GFR Population mean for , Non- Americans Ages 20-29 = 116 mL/min/1.73 sq.m. Ages 30-39 = 107 mL/min/1.73 sq.m. Ages 40-49 = 99 mL/min/1.73 sq.m. Ages 50-59 = 93 mL/min/1.73 sq.m. Ages 60-69 = 85 mL/min/1.73 sq.m. Ages 70+ = 75 mL/min/1.73 sq.m. Chronic Kidney Disease: Less than 60 mL/min/1.73 square meters End Stage Renal Disease: Less than 15 mL/min/1.73 square meters Globulin 4.1 G/dL High 1.5 - 3.8 G/dL ADM SS Glucose [Mass/Vol] 121 mg/dL High 70 - 110 mg/dL ADM SS Hematocrit (Bld) [Volume fraction] 33.0 % Low 34.0 - 46.0 % Workflow SS Hemoglobin (Bld) [Mass/Vol] 11.1 G/dL Low 12.0 - 16.0 G/dL AH Workflow SS Lipase [Catalytic activity/Vol] 30 U/L Normal 12 - 53 U/L ADM SS Comment on above: Interpretive Data: * *Note - New Reference Range in effect 19 Lymphocytes (Bld) [#/Vol] 2.0 103/mcL Normal 0.9 - 4.3 10^3/mcL AH Workflow SS Lymphocytes/100 WBC (Bld) 22.0 % Normal 20.0 - 40.0 % Workflow SS MCH (RBC) [Entitic mass] 25.0 pg Low 27.0 - 33.0 pg AH Workflow SS MCHC 33.7 G/dL Normal 32.0 - 36.0 G/dL AH Workflow SS MCV (RBC) [Entitic vol] 74.1 fL Low 80.0 - 99.0 fL Workflow SS Monocytes (Bld) [#/Vol] 0.6 103/mcL Normal 0.1 - 1.4 10^3/mcL AH Workflow SS Monocytes/100 WBC (Bld) 6.3 % Normal 2.0 - 13.0 % Workflow SS Neutrophils (Bld) [#/Vol] 6.4 103/mcL Normal 2.3 - 8.1 10^3/mcL AH Workflow SS Neutrophils/100 WBC (Bld) 71.1 % Normal 50.0 - 75.0 % AH Workflow SS Platelet mean volume (Bld) [Entitic vol] 10.3 fL Normal 6.6 - 10.5 fL Workflow SS Platelets (Bld) [#/Vol] 132 103/mcL Low 150 - 450 10^3/mcL AH Workflow SS Potassium [Moles/Vol] 3.9 mmol/L Normal 3.5 - 5.0 mEq/L ADM SS Protein [Mass/Vol] 6.4 G/dL Normal 5.7 - 8.2 G/dL ADM SS Comment on above: Interpretive Data: * *Note - New Reference Range in effect 19 RBC (Bld) [#/Vol] 4.45 106/mcL Normal 4.10 - 5.30 10^6/mcL Workflow SS Sodium [Moles/Vol] 137 mmol/L Normal 136 - 145 mEq/L ADM SS Urea nitrogen [Mass/Vol] 8.0 mg/dL Normal 8.0 - 22.0 mg/dL ADM SS Urea nitrogen/Creatinine [Mass ratio] 16.7 ratio Normal 10.0 - 22.0 ratio ADM SS WBC (Bld) [#/Vol] 9.1 103/mcL Normal 4.5 - 10.8 10^3/mcL Workflow SS LABORATORYOrdered By: Chang varela on 01-26-2023 Blood Glucose Testing Reason Routine (01/26/23 10:09 AM) [facility] Work Phone: Glucose [Mass/Vol] 123 mg/dL High 70 - 110 mg/dL [facility] Work Phone: LIPon 01-26-2023 Lipase Level 30 U/L Normal 12-53 [facility] ([place]) Comment on above: Result Comment: No te - New Reference Range in effect 19 Performed By: #### C MP, GFR, CBC, LIP, ANEU, ADIFF ####[place] [address] UAon 01-26-2023 Color (U) Yellow Normal [facility] ([place]) Comment on above: Performed By: #### U A, UAMIC ####[place] [address] Glucose (U) [Mass/Vol] Negative Normal Negative [facility] ([place]) Comment on above: Performed By: #### U A, UAMIC ####[place] [address] Ketones Ql (U) Negative Normal Neg-Trace [facility] ([place]) Comment on above: Performed By: #### U A, UAMIC ####[place] [address] UA Appear Cloudy Abnormal Clear [facility] ([place]) Comment on above: Performed By: #### U A, UAMIC ####[place] [address] UA Blood Negative Normal Neg-Trace [facility] ([place]) Comment on above: Performed By: #### U A, UAMIC ####[place] [address] UA Leuk Est Small Abnormal Negative [facility] ([place]) Comment on above: Performed By: #### U A, UAMIC ####[place] [address] UA Nitrite Negative Normal Negative [facility] ([place]) Comment on above: Performed By: #### U A, UAMIC ####[place] [address] UA pH 7.5 Normal 5.0 - 8.0 [facility] ([place]) Comment on above: Performed By: #### U A, UAMIC ####[place] [address] UA Protein Negative Normal Negative [facility] ([place]) Comment on above: Performed By: #### U A, UAMIC ####[place] [address] UA Spec Grav 1.015 Normal 1.006-1.02 9 [facility] ([place]) Comment on above: Performed By: #### U A, UAMIC ####[place] [address] UA Specimen Type Clean Catch Normal [facility] ([place]) Comment on above: Performed By: #### U A, UAMIC ####[place] [address] UA Urobilinogen 1.0 E.U./dL Normal 0.2-1.0 [facility] ([place]) Comment on above: Performed By: #### U A, UAMIC ####[place] [address] Urobilinogen (U) [Mass/Vol] Negative Normal Neg-Trace [facility] ([place]) Comment on above: Performed By: #### U A, UAMIC ####[place] [address] UAMICon 01-26-2023 UA Bacteria 4+ /hpf Abnormal Negative [facility] ([place]) Comment on above: Performed By: #### U A, UAMIC ####[place] [address] UA RBC Negative Normal 0-2 [facility] ([place]) Comment on above: Performed By: #### U A, UAMIC ####[place] [address] UA Squam Epithelial 25-50 Abnormal 0-20 [facility] ([place]) Comment on above: Performed By: #### U A, UAMIC ####[place] [address] UA WBC 3-5 Normal 0-5 [facility] ([place]) Comment on above: Performed By: #### U A, UAMIC ####[place] [address] BILEon 01-22-2023 Chenodeoxycholate 1.5 umol/l Normal [facility] ([place]) Comment on above: Result Comment: Refe rence Range:All Ages: <5.8 Performed By: #### A WAYNE, CBC, LD, ADIFF, GFR, [id number], CMP ####[address], [place] [address] Cholate 2.2 umol/l High [facility] ([place]) Comment on above: Result Comment: Refe rence Range:All Ages: <2.2 Performed By: #### A WAYNE, CBC, LD, ADIFF, GFR, [id number], CMP ####[facility] [place] [address] Deoxycholate 0.40 umol/l Normal [facility] ([place]) Comment on above: Result Comment: Refe rence Range:All Ages: <3.3 Performed By: #### A WAYNE, CBC, LD, ADIFF, GFR, [id number], CMP ####[place] [id number] [place] [address] Total Bile Acids 4.1 umol/l Normal [facility] ([place]) Comment on above: Result Comment: This test was developed and its performance characteristicsdetermined by [employer]. It has not been cleared or approvedby the Food and Drug Administration.Reference Range:All Ages: <9.2Performed At: [facility] [id number] [place], [place] [id number] Brian F MD Ph:[phone] Performed By: #### A WAYNE, CBC, LD, ADIFF, GFR, [id number], CMP ####[place] [id number] [place] [address] Ursodeoxycholate <0.10 Normal [facility] ([place]) Comment on above: Result Comment: Refe rence Range:All Ages: <1.9 Performed By: #### A WAYNE, CBC, LD, ADIFF, GFR, [id number], CMP ####[place] [id number] [place] [address] Progress Noteon 01-21-2023 Acetone Button Paster Authentication Interface Message Text Comanage GestationalDiabetes Mellitus Lester Infante is seen at 32w5d for comanagement of Gestational A2 Diabetes Mellitus and Cholestasis of . She complains of heartburn on protonix BP 132/62 . Her blood glucose record was reviewed. Her insulin changed. Current dose is Levemir 20 units New dosing Levemir 24 units @ HS. History of Presenting Problem: She is accompanied by her significant other. Lester denies any cramping, contractions, vaginal bleeding, unusual or increase in vaginal discharge, signs and symptoms of pre-eclampsia, or leaking of any fluid. Patient with positive movement. Gestational Diabetes Lester presents today for her comanage visit. She has GDMA2 diabetes. The disease course is fluctuating. Her symptom course is compliant. Pertinent negative hyper/hypoglycemia symptoms include none. Blood glucose readings reviewed. Readings are as follows: BS reviewed from 01/14-01/20. Fasting BS 81-112.6 of 7 elevated. Occasional 2 hr PP elevated. Reviewed diet and carb counting. Increased levemir to 24 units @ HS. Past Medical History: Past Medical History: Diagnosis Date Cholestasis of , antepartum 01/14/2023 Past Surgical History: Procedure Laterality Date SECTION, LOW TRANSVERSE x 4 Medications: Outpatient Encounter Medications as of 01/21/2023 Medication Sig Dispense Refill famotidine (PEPCID) 20 MG tablet Take 1 Tablet (20 mg) by mouth daily RA ALCOHOL SWABS 70 % PADS Blood Glucose Monitoring Suppl (ONE TOUCH ULTRA 2) w/Device KIT use as directed to CHECK BLOOD SUGAR four times a day FREESTYLE PRECISION DANAY TEST test strip FREESTYLE LANCETS MISC ursodiol (ACTIGALL) 300 MG capsule Take 1 Capsule (300 mg) by mouth 2 times daily Vit w/Wu-Ewupgviaq-MB (PNV PO) Take 1 Tablet by mouth daily ferrous sulfate (FEOSOL) 325 (65 FE) MG TABS tablet Take by mouth daily insulin detemir (LEVEMIR) 100 UNIT/ML SOLN injection Inject 20 Units into the skin nightly at bedtime for 150 days (Patient taking differently: Inject 20 Units into the skin nightly at bedtime Taking 1 hour before dinner) 10 mL 2 Insulin Syringe-Needle U-100 31G X 5/16 1 ML MISC Use as directed 40 Each 3 [DISCONTINUED] TOUJEO SOLOSTAR 300 UNIT/ML SOPN inject 0.2 milliliters subcutaneously once daily No facility-administered encounter medications on file as of 01/21/2023. Allergies: No Known Allergies Family Medical History: Family History Problem Relation Age of Onset No known problems Mother High Blood Pressure Father Diabetes Mellitus II Paternal Grandmother Heart Disease Paternal Grandfather Diabetes Mellitus II Paternal Grandfather Social History: Social History Socioeconomic History Marital status: Spouse name: None Number of children: None Years of education: None Highest education level: None Tobacco Use Smoking status: Never Smokeless tobacco: Never Substance and Sexual Activity Alcohol use: Not Currently Drug use: Never Physical Exam: Vitals Extended BP: 132/62 Weight - Scale: (!) 122.3 kg (269 lb 9.6 oz) FHR 148bpm Presentation: Breech BPP 09/21 Assessment/Plan: Lester Infante is a 22 y.o. at 32w5d with: Active Non-Hospital Problems Diagnosis Date Noted Supervision of high risk in third trimester 01/17/2023 PLAN OF CARE- Co-Manage of [facility] MD/OB APPOINTMENTS Genetic screening: How often should patient be evaluated? Monthly to 28 weeks, q 2 weeks from 28 to 36 weeks then weekly until delivery. Work restrictions: NA EVALUATION surveillance: Biweekly BPPs Ultrasound: Growth every 4 weeks DELIVERY PLAN Hospital: [facility] C/S at 37.1 weeks Cholestasis of C/S scheduled fro 02/21/2022 @ 1100 GBS culture: per OB Contraception: tubal ligation : Pump and bottle Ped: [facility] Name of baby: Boy- Diony Vaccinations: rec COVID- declined, Flu- declined and 3rd trimester TDAP- undecided Reviewed on 01/21/2023 GDM, class A2 01/14/2023 Diabetes Mellitus - Type GDM A2: Our review included: Disease History: She failed her 1 hour Glucola at 169 mg/dL and was attempting to OGTT and had emesis and thus was unable to conclude. She has since had patent testing done and I reviewed her blood sugar profile and most of her fasting blood sugars are elevated between 100 and 109 mg/dL securing the diagnosis of GDM. = Glycemic Control and Obstetric Risks: We discussed the desired glycemic targets for maternal health and to reduce preeclampsia risk and promote health (prevent macrosomia and its attendant risks of stillbirth and shoulder dystocia). The glycemic targets were reviewed as: (she will keep a log of her sugars) = Education: I reviewed with her - The qualitative and quantitativeaspects of 2000 calorie ADA diet. The spread of CHO across 3 meals and 2 snacks. The importance of daily acti (more content not included)... Normal [facility] .Auto Diffon 01-17-2023 Basophil, Absolute 0.0 10 3/mcL Normal 0.0-0.3 [facility] ([place]) Comment on above: Performed By: #### A WAYNE, CBC, LD, ADIFF, GFR, [id number], CMP ####[address] [address] Basophils/100 WBC (Bld) 0.4 % Normal 0.0-2.5 [facility] ([place]) Comment on above: Performed By: #### A WAYNE, CBC, LD, ADIFF, GFR, [id number], CMP ####[address] [address] Eosinophil, Absolute 0.0 10 3/mcL Normal 0.0-0.7 [facility] ([place]) Comment on above: Performed By: #### A WAYNE, CBC, LD, ADIFF, GFR, [id number], CMP ####[address] [address] Eosinophils/100 WBC (Bld) 0.4 % Normal 0.0-6.0 [facility] ([place]) Comment on above: Performed By: #### A WAYNE, CBC, LD, ADIFF, GFR, [id number], CMP ####[address] [address] Lymphocyte, Absolute 1.9 10 3/mcL Normal 0.9-4.3 [facility] ([place]) Comment on above: Performed By: #### A WAYNE, CBC, LD, ADIFF, GFR, [id number], CMP ####[address] [address] Lymphocytes/100 WBC (Bld) 23.6 % Normal 20.0-40.0 [facility] ([place]) Comment on above: Performed By: #### A WAYNE, CBC, LD, ADIFF, GFR, [id number], CMP ####[address] [address] Monocyte, Absolute 0.6 10 3/mcL Normal 0.1-1.4 [facility] ([place]) Comment on above: Performed By: #### A WAYNE, CBC, LD, ADIFF, GFR, [id number], CMP ####[facility] [place] [address] Monocytes/100 WBC (Bld) 6.9 % Normal 2.0-13.0 [facility] ([place]) Comment on above: Performed By: #### A WAYNE, CBC, LD, ADIFF, GFR, [id number], CMP ####[place] [id number] [place] [address] Neutrophils/100 WBC (Bld) 68.7 % Normal 50.0-75.0 [facility] ([place]) Comment on above: Performed By: #### A WAYNE, CBC, LD, ADIFF, GFR, [id number], CMP ####[place] [id number] [place] [address] .GFRon 01-17-2023 GFR >60 Normal [facility] ([place]) Comment on above: Result Comment: GFR Population mean for , Non- Americans Ages 20-29 = 116 mL/min/1.73 sq.m. Ages 30-39 = 107 mL/min/1.73 sq.m. Ages 40-49 = 99 mL/min/1.73 sq.m. Ages 50-59 = 93 mL/min/1.73 sq.m. Ages 60-69 = 85 mL/min/1.73 sq.m. Ages 70+ = 75 mL/min/1.73 sq.m.Chronic Kidney Disease: Less than 60 mL/min/1.73 square metersEnd Stage Renal Disease: Less than 15 mL/min/1.73 square meters Performed By: #### A WAYNE, CBC, LD, ADIFF, GFR, [id number], CMP ####[facility] [place] [address] GFR Non- >60 Normal [facility] ([place]) Comment on above: Result Comment: GFR Population mean for , Non- Americans Ages 20-29 = 116 mL/min/1.73 sq.m. Ages 30-39 = 107 mL/min/1.73 sq.m. Ages 40-49 = 99 mL/min/1.73 sq.m. Ages 50-59 = 93 mL/min/1.73 sq.m. Ages 60-69 = 85 mL/min/1.73 sq.m. Ages 70+ = 75 mL/min/1.73 sq.m.Chronic Kidney Disease: Less than 60 mL/min/1.73 square metersEnd Stage Renal Disease: Less than 15 mL/min/1.73 square meters Performed By: #### A WAYNE, CBC, LD, ADIFF, GFR, [id number], CMP ####[place] [id number] [place] [address] .NEUABSon 01-17-2023 Neutrophil, Absolute 5.5 10 3/mcL Normal 2.3-8.1 [facility] ([place]) Comment on above: Performed By: #### A WAYNE, CBC, LD, ADIFF, GFR, [id number], CMP ####[place] [id number] [place] [address] BILEon 01-17-2023 Chenodeoxycholate 1.9 umol/l Normal [facility] ([place]) Comment on above: Result Comment: Refe rence Range:All Ages: <5.8 Performed By: #### 5 [id number] ####[address] [place], [place] [address] Cholate 2.3 umol/l High [facility] ([place]) Comment on above: Result Comment: Refe rence Range:All Ages: <2.2 Performed By: #### 5 07040 ####[address]ia [address] [place], [place] [address] Deoxycholate 0.40 umol/l Normal [facility] ([place]) Comment on above: Result Comment: Refe rence Range:All Ages: <3.3 Performed By: #### 5 [id number] ####S[address]ia [address] [place], [place] [address] Total Bile Acids 4.6 umol/l Normal [facility] ([place]) Comment on above: Result Comment: This test was developed and its performance characteristicsdetermined by [facility]. It has not been cleared or approvedby the Food and Drug Administration.Reference Range:All Ages: <9.2Performed At: [facility] [id number] [place], [place] [id number] Brian F MD Ph:[phone] Performed By: #### 5 85630 ####[facility] [place], [place] [address] Ursodeoxycholate <0.10 Normal [facility] ([place]) Comment on above: Result Comment: Refphilippe schmidt Range:All Ages: <1.9 Performed By: #### 5 [id number] ####[address] [place], [place] [address] CBCon 01-17-2023 Erythrocyte distribution width (RBC) [Ratio] 14.9 % Normal 11.5-15.5 [facility] ([place]) Comment on above: Performed By: #### A WAYNE, CBC, LD, ADIFF, GFR, [id number], CMP ####[place] [address] Hematocrit (Bld) [Volume fraction] 35.3 % Normal 34.0-46.0 [facility] ([place]) Comment on above: Performed By: #### A WAYNE, CBC, LD, ADIFF, GFR, [id number], CMP ####[place] [address] Hgb 11.8 G/dL Low 12.0-16.0 [facility] ([place]) Comment on above: Performed By: #### A WAYNE, CBC, LD, ADIFF, GFR, 469787, CMP ####[place] [address] MCH (RBC) [Entitic mass] 25.4 pg Low 27.0-33.0 [facility] ([place]) Comment on above: Performed By: #### A WAYNE, CBC, LD, ADIFF, GFR, 782803, CMP ####[place] [address] MCHC 33.4 G/dL Normal 32.0-36.0 [facility] ([place]) Comment on above: Performed By: #### A WAYNE, CBC, LD, ADIFF, GFR, 229008, CMP ####[place] [address] MCV (RBC) [Entitic vol] 76.0 fL Low 80.0-99.0 [facility] ([place]) Comment on above: Performed By: #### A WAYNE, CBC, LD, ADIFF, GFR, 706741, CMP ####[place] [address] Platelet 148 10 3/mcL Low 150-450 [facility] ([place]) Comment on above: Performed By: #### A WAYNE, CBC, LD, ADIFF, GFR, 303075, CMP ####[place] [address] Platelet mean volume (Bld) [Entitic vol] 10.4 fL Normal 6.6-10.5 [facility] ([place]) Comment on above: Performed By: #### A WAYNE, CBC, LD, ADIFF, GFR, 555633, CMP ####[place] [address] RBC 4.65 10 6/mcL Normal 4.10-5.30 [facility] ([place]) Comment on above: Performed By: #### A WAYNE, CBC, LD, ADIFF, GFR, 578644, CMP ####[place] [address] WBC 7.9 10 3/mcL Normal 4.5-10.8 [facility] ([place]) Comment on above: Performed By: #### A WAYNE, CBC, LD, ADIFF, GFR, 794726, CMP ####[place] [address] CMPon 01-17-2023 Albumin Level 2.5 G/dL Low 3.2-4.8 [facility] ([place]) Comment on above: Performed By: #### A WAYNE, CBC, LD, ADIFF, GFR, 885955, CMP ####[place] [address] Albumin/Globulin [Mass ratio] 0.6 {ratio} Low 0.9-1.6 [facility] ([place]) Comment on above: Performed By: #### A WAYNE, CBC, LD, ADIFF, GFR, 092840, CMP ####[address] [place] [address] ALP [Catalytic activity/Vol] 274 U/L High 38-126 [facility] ([place]) Comment on above: Performed By: #### A WAYNE, CBC, LD, ADIFF, GFR, [id number], CMP ####[address] [address] ALT [Catalytic activity/Vol] 60 U/L High 10-49 [facility] ([place]) Comment on above: Performed By: #### A WAYNE, CBC, LD, ADIFF, GFR, 795665, CMP ####[address] [address] AST [Catalytic activity/Vol] 27 U/L Normal 8-34 [facility] ([place]) Comment on above: Performed By: #### A WAYNE, CBC, LD, ADIFF, GFR, 387141, CMP ####[address] [address] Bili Total 0.40 mg/dL Normal 0.20-1.20 [facility] ([place]) Comment on above: Result Comment: Use of this assay is not recommended for patients undergoing treatment with eltrombopag due to the potential for falsely elevated results. Performed By: #### A WAYNE, CBC, LD, ADIFF, GFR, 129839, CMP ####[place] [address] BUN/Creatinine Ratio 13.2 ratio Normal 10.0-22.0 [facility] ([place]) Comment on above: Performed By: #### A WAYNE, CBC, LD, ADIFF, GFR, 573042, CMP ####[place] [address] Calcium [Mass/Vol] 9.4 mg/dL Normal 8.7-10.4 [facility] ([place]) Comment on above: Performed By: #### A WAYNE, CBC, LD, ADIFF, GFR, 852747, CMP ####[place] [address] Chloride [Moles/Vol] 106 mmol/L Normal 98-110 [facility] ([place]) Comment on above: Performed By: #### A WAYNE, CBC, LD, ADIFF, GFR, 848613, CMP ####[address] [address] CO2 [Moles/Vol] 25 mmol/L Normal 22-32 [facility] ([place]) Comment on above: Performed By: #### A WAYNE, CBC, LD, ADIFF, GFR, 114777, CMP ####[address] [address] Creatinine [Mass/Vol] 0.53 mg/dL Normal 0.50-1.20 [facility] ([place]) Comment on above: Performed By: #### A WAYNE, CBC, LD, ADIFF, GFR, 533779, CMP ####[address] [address] Electrolyte Balance 7.0 mEq/L Normal 4.0-15.0 [facility] ([place]) Comment on above: Performed By: #### A WAYNE, CBC, LD, ADIFF, GFR, 566338, CMP ####[place] [address] Globulin 4.3 G/dL High 1.5-3.8 [facility] ([place]) Comment on above: Performed By: #### A WAYNE, CBC, LD, ADIFF, GFR, 120196, CMP ####[address] [address] Glucose [Mass/Vol] 121 mg/dL High 70-110 [facility] ([place]) Comment on above: Performed By: #### A WAYNE, CBC, LD, ADIFF, GFR, 792000, CMP ####[address] [address] Potassium [Moles/Vol] 4.2 mmol/L Normal 3.5-5.0 [facility] ([place]) Comment on above: Performed By: #### A WAYNE, CBC, LD, ADIFF, GFR, 129995, CMP ####[address] [address] Sodium [Moles/Vol] 138 mmol/L Normal 136-145 [facility] ([place]) Comment on above: Performed By: #### A WAYNE, CBC, LD, ADIFF, GFR, 934381, CMP ####[place] [address] Total Protein 6.8 G/dL Normal 5.7-8.2 [facility] ([place]) Comment on above: Result Comment: No te - New Reference Range in effect 19 Performed By: #### A WAYNE, CBC, LD, ADIFF, GFR, 955362, CMP ####[place] [address] Urea nitrogen [Mass/Vol] 7.0 mg/dL Low 8.0-22.0 [facility] ([place]) Comment on above: Performed By: #### A WAYNE, CBC, LD, ADIFF, GFR, 797636, CMP ####[place] [address] LDHon 01-17-2023 LDH 193 U/L Normal 120-246 [facility] ([place]) Comment on above: Performed By: #### A WAYNE, CBC, LD, ADIFF, GFR, 619006, CMP ####[place] [address] RPCURon 01-17-2023 U Creatinine 69.8 mg/dL Normal [facility] ([place]) Comment on above: Performed By: #### R PCUR ####[place] [address] U Protein 24.4 mg/dL Normal [facility] ([place]) Comment on above: Performed By: #### R PCUR ####[place] [address] U Ratio Prot/Creat 0.3 ratio Normal [facility] ([place]) Comment on above: Result Comment: resu lt calculated by rule GL_UR_PROT_NOTCALC_OLD(U Protein/U Creatinine) Performed By: #### R PCUR ####[place] [address] .Auto Diffon 01-14-2023 Basophil, Absolute 0.1 10 3/mcL Normal 0.0-0.3 [facility]) Comment on above: Performed By: #### C RE, ADIFF, URIC, ANEU, AST, CBC, GFR, ALT ####[address] [address] Basophils/100 WBC (Bld) 0.7 % Normal 0.0-2.5 [facility] ([place]) Comment on above: Performed By: #### C RE, ADIFF, URIC, ANEU, AST, CBC, GFR, ALT ####[address] [address] Eosinophil, Absolute 0.0 10 3/mcL Normal 0.0-0.7 [facility] ([place]) Comment on above: Performed By: #### C RE, ADIFF, URIC, ANEU, AST, CBC, GFR, ALT ####[address] [address] Eosinophils/100 WBC (Bld) 0.5 % Normal 0.0-6.0 [facility] ([place]) Comment on above: Performed By: #### C RE, ADIFF, URIC, ANEU, AST, CBC, GFR, ALT ####[address] [address] Lymphocyte, Absolute 2.4 10 3/mcL Normal 0.9-4.3 [facility] ([place]) Comment on above: Performed By: #### C RE, ADIFF, URIC, ANEU, AST, CBC, GFR, ALT ####[address] [address] Lymphocytes/100 WBC (Bld) 28.5 % Normal 20.0-40.0 [facility] ([place]) Comment on above: Performed By: #### C RE, ADIFF, URIC, ANEU, AST, CBC, GFR, ALT ####[address] [address] Monocyte, Absolute 0.8 10 3/mcL Normal 0.1-1.4 [facility] ([place]) Comment on above: Performed By: #### C RE, ADIFF, URIC, ANEU, AST, CBC, GFR, ALT ####[address] [address] Monocytes/100 WBC (Bld) 9.0 % Normal 2.0-13.0 [facility] ([place]) Comment on above: Performed By: #### C RE, ADIFF, URIC, ANEU, AST, CBC, GFR, ALT ####[address] [address] Neutrophils/100 WBC (Bld) 61.3 % Normal 50.0-75.0 [facility] ([place]) Comment on above: Performed By: #### C RE, ADIFF, URIC, ANEU, AST, CBC, GFR, ALT ####[address] [address] .GFRon 01-14-2023 GFR >60 Normal [facility] ([place]) Comment on above: Result Comment: GFR Population mean for , Non- Americans Ages 20-29 = 116 mL/min/1.73 sq.m. Ages 30-39 = 107 mL/min/1.73 sq.m. Ages 40-49 = 99 mL/min/1.73 sq.m. Ages 50-59 = 93 mL/min/1.73 sq.m. Ages 60-69 = 85 mL/min/1.73 sq.m. Ages 70+ = 75 mL/min/1.73 sq.m.Chronic Kidney Disease: Less than 60 mL/min/1.73 square metersEnd Stage Renal Disease: Less than 15 mL/min/1.73 square meters Performed By: #### C RE, ADIFF, URIC, ANEU, AST, CBC, GFR, ALT ####[address] [address] GFR Non- >60 Normal [facility] ([place]) Comment on above: Result Comment: GFR Population mean for , Non- Americans Ages 20-29 = 116 mL/min/1.73 sq.m. Ages 30-39 = 107 mL/min/1.73 sq.m. Ages 40-49 = 99 mL/min/1.73 sq.m. Ages 50-59 = 93 mL/min/1.73 sq.m. Ages 60-69 = 85 mL/min/1.73 sq.m. Ages 70+ = 75 mL/min/1.73 sq.m.Chronic Kidney Disease: Less than 60 mL/min/1.73 square metersEnd Stage Renal Disease: Less than 15 mL/min/1.73 square meters Performed By: #### C RE, ADIFF, URIC, ANEU, AST, CBC, GFR, ALT ####[place] [address] .NEUABSon 01-14-2023 Neutrophil, Absolute 5.2 10 3/mcL Normal 2.3-8.1 [facility] ([place]) Comment on above: Performed By: #### C RE, ADIFF, URIC, ANEU, AST, CBC, GFR, ALT ####[place] [address] ALT/SGPTon 01-14-2023 ALT [Catalytic activity/Vol] 71 U/L High 10-49 [facility] ([place]) Comment on above: Performed By: #### C RE, ADIFF, URIC, ANEU, AST, CBC, GFR, ALT ####[place] [address] Ariel 01-14-2023 AST [Catalytic activity/Vol] 35 U/L High 8-34 [facility] ([place]) Comment on above: Performed By: #### C RE, ADIFF, URIC, ANEU, AST, CBC, GFR, ALT ####[place] [address] CBCon 01-14-2023 Erythrocyte distribution width (RBC) [Ratio] 14.9 % Normal 11.5-15.5 [facility] ([place]) Comment on above: Performed By: #### C RE, ADIFF, URIC, ANEU, AST, CBC, GFR, ALT ####[place] [address] Hematocrit (Bld) [Volume fraction] 34.8 % Normal 34.0-46.0 [facility] ([place]) Comment on above: Performed By: #### C RE, ADIFF, URIC, ANEU, AST, CBC, GFR, ALT ####[place] [address] Hgb 11.6 G/dL Low 12.0-16.0 [facility] ([place]) Comment on above: Performed By: #### C RE, ADIFF, URIC, ANEU, AST, CBC, GFR, ALT ####[place] [address] MCH (RBC) [Entitic mass] 25.2 pg Low 27.0-33.0 [facility] ([place]) Comment on above: Performed By: #### C RE, ADIFF, URIC, ANEU, AST, CBC, GFR, ALT ####[place] [address] MCHC 33.3 G/dL Normal 32.0-36.0 [facility] ([place]) Comment on above: Performed By: #### C RE, ADIFF, URIC, ANEU, AST, CBC, GFR, ALT ####[place] [address] MCV (RBC) [Entitic vol] 75.5 fL Low 80.0-99.0 [facility] ([place]) Comment on above: Performed By: #### C RE, ADIFF, URIC, ANEU, AST, CBC, GFR, ALT ####[place] [address] Platelet 145 10 3/mcL Low 150-450 [facility] ([place]) Comment on above: Performed By: #### C RE, ADIFF, URIC, ANEU, AST, CBC, GFR, ALT ####[place] [address] Platelet mean volume (Bld) [Entitic vol] 10.3 fL Normal 6.6-10.5 [facility] ([place]) Comment on above: Performed By: #### C RE, ADIFF, URIC, ANEU, AST, CBC, GFR, ALT ####[place] [address] RBC 4.61 10 6/mcL Normal 4.10-5.30 [facility] ([place]) Comment on above: Performed By: #### C RE, ADIFF, URIC, ANEU, AST, CBC, GFR, ALT ####[place] [address] WBC 8.4 10 3/mcL Normal 4.5-10.8 [facility] ([place]) Comment on above: Performed By: #### C RE, ADIFF, URIC, ANEU, AST, CBC, GFR, ALT ####[place] [id number] [place] [address] CREon 01-14-2023 Creatinine [Mass/Vol] 0.56 mg/dL Normal 0.50-1.20 [facility] ([place]) Comment on above: Performed By: #### C RE, ADIFF, URIC, ANEU, AST, CBC, GFR, ALT ####[place] [id number] [place] [address] Progress Noteon 01-14-2023 Acetone Button Paster Authentication Interface Message Text [facility] - at [place] [address] ARMSTRONG OFFICE VISIT NOTE DOS: 01/14/2023 01/14/2023 Chief Complaint She presents for review of progress in thus far and for comprehensive review of her maternal -obstetric- risks in this . The reasons for the visit are as highlighted in the concluding summary communication to voip network technician which is my problem-based office review. History of Present Illness Lester is a 22 y.o. female at 31w5d. Here for an office visit with was multifaceted and the history of present illness is itemized/organized under applicable individualized problem list assessments as listed below. Obstetric History OB History Para Term AB Living 5 4 3 1 4 SAB IAB Ectopic Multiple Live Births 4 # Outcome Date GA Lbr Dru/2nd Weight Sex Delivery Anes PTL Lv 5 Current 4 11/10/21 36w6d 3.949 kg F CS-LTranv Spinal MELISSA Comments: decreased movement Complications: Intolerance 3 Term 06/06/20 39w1d 4.288 kg M CS-LTranv Spinal MELISSA 2 Term 07/16/19 39w0d 3.77 kg F CS-LTranv Spinal MELISSA 1 Term 11/21/17 37w0d 3.77 kg M CS-Unspec EPI MELISSA Complications: Intolerance, Cephalopelvic Disproportion - I reviewed it at patient encounter and pertinent aspects are integrated into the below problem list-based assessment Past Medical History Past Medical History: Diagnosis Date Cholestasis of , antepartum 01/14/2023 - I reviewed it at patient encounter and pertinent aspects are integrated into the below problem list-based assessment Social History - I reviewed it at patient encounter and pertinent aspects are integrated into the below problem list-based assessment Family History - I reviewed it at patient encounter, including screening genetic pedigree as available, and pertinent aspects are integrated into the below problem list-based assessment Medications and Allergies . No Known Allergies - I reviewed it at patient encounter and are integrated into the below problem list-based assessment. Allergies were reviewed Laboratory Studies and Imaging studies - I reviewed it at patient encounter and pertinent aspects are integrated into assessments. Vitals BP 119/70 Pulse 82 Resp 18 Ht 160 cm Wt (!) 120.6 kg (265 lb 14.4 oz) LMP 05/29/2022 SpO2 97% BMI 47.10 kg/m - heart rate as per imaging report today, as applicable and available. ASSESSMENT AND PLAN After integrating maternal and obstetric and considerations, my recommendations are as assembled. Active Non-Hospital Problems Diagnosis Date Noted GDM, class A2 01/14/2023 Diabetes Mellitus - Type GDM A2: Our review included: Disease History: She failed her 1 hour Glucola at 169 mg/dL and was attempting to OGTT and had emesis and thus was unable to conclude. She has since had patent testing done and I reviewed her blood sugar profile and most of her fasting blood sugars are elevated between 100 and 109 mg/dL securing the diagnosis of GDM. = Glycemic Control and Obstetric Risks: We discussed the desired glycemic targets for maternal health and to reduce preeclampsia risk and promote health (prevent macrosomia and its attendant risks of stillbirth and shoulder dystocia). The glycemic targets were reviewed as: (she will keep a log of her sugars) = Education: I reviewed with her - The qualitative and quantitativeaspects of 2000 calorie ADA diet. The spread of CHO across 3 meals and 2 snacks. The importance of daily activity to promote glycemic control. Potential challenges to achievement were explored and addressed. = Medications: As detailed in the care plan. {We discussed preference for Insulin over Metformin (which freely crosses the placenta into the fetus without terminal carman safety data); however, it is considered and acceptable on a selective basis. = Conclusions: She articulates understanding of the foregoing and care plan. Questions were both encouraged and answered and our BIOLOGY ADJUNCT INSTRUCTOR will review her glycemic control weekly and optimize it Care plan discussed with patient 01/14/2023 Medications: She is on daily PNV and she is not on low-dose aspirin and starting at this point does not add value. She is on ursodiol 300 mg daily and have increased it to 300 mg twice daily for cholestasis of is responding poorly to the current dosage. He will also utilize Pepcid 20 mg twice daily [id number] E-scribed prescription for: Levemir insulin 20 units at bedtime along with required insulin syringes and needles supply. Our nurse did diabetic teaching today Referrals: Patient prefers to deliver at [facility] and thus has embraced [facility] referral and appointment is on January 17, 2023 at [address] [facility] diabetic teaching has also been done today Scheduled with us: Today I obtain CBC with platelet count and repeat AST/ALT as she has history of recent (more content not included)... Normal [facility] URICon 01-14-2023 Uric Acid Lvl 4.4 mg/dL Normal 3.1-7.8 [facility] ([place]) Comment on above: Result Comment: No te - New Reference Range in effect 19 Performed By: #### C RE, ADIFF, URIC, ANEU, AST, CBC, GFR, ALT ####[address] [address] GLFon 01-13-2023 Glucose [Mass/Vol] 120 mg/dL High 83-110 [facility] ([place]) Comment on above: Performed By: #### G LF ####[address] [place], [place] [address] GLUon 01-13-2023 Glucose [Mass/Vol] 176 mg/dL High 70-105 [facility] ([place]) Comment on above: Performed By: #### G ROBIN ####[address] [place], [place] [address] HEPACon 01-13-2023 Hep A IgM Ab Non-Reactive Normal Non-Reacti ve [facility] ([place]) Comment on above: Performed By: #### H EPAC ####[address] [address] Hep A IgM Ab Int Normal [facility] ([place]) Comment on above: Result Comment: No s erological evidence of a current Hepatitis A infection.See Interp Performed By: #### H EPAC ####[address] [address] Hep B Core IgM Ab Non-Reactive Normal Non-Reacti [facility] ([place]) Comment on above: Performed By: #### H EPAC ####[place] [address] Hep B Core IgM Ab Int [facility] ([place]) Comment on above: Result Comment: Samp les with a value < 0.80 Index are considered nonreactive (negative) for IgM antibodies to hepatitis B core antigen.See Interp Performed By: #### H EPAC ####[place] [address] Hep B Surf Ag Non-Reactive Normal Non-Reacti [facility] ([place]) Comment on above: Performed By: #### H EPAC ####[place] [address] Hep [facility]active [facility] Comment on above: Performed By: #### H EPAC ####[place] [address] Hep C Ab Int [facility] ([place]) Comment on above: Result Comment: Nonr eactive: Samples with a value < 0.80 are considered nonreactive (negative) for antibodies to HCV.A negative test result does not exclude the possibility of exposure to or infection with HCV. HCV antibodies may be undetectable in some stages of the infection and in some clinical conditions.See Interp Performed By: #### H EPAC ####[place] [address] LABORATORYOrdered By: SYSTEM SYSTEM on 01-13-2023 Glucose [Mass/Vol] 176 mg/dL High 70 - 105 mg/dL AO ADM SS LABORATORYOrdered By: Brooklyn Morales on 01-13-2023 Glucose [Mass/Vol] 120 mg/dL High 83 - 110 mg/dL AO ADM SS .GFRon 01-12-2023 GFR 143 ml/min/1.73sqm [facility] ([place]) Comment on above: Result Comment: GFR Population mean for , Non- Americans Ages 20-29 = 116 mL/min/1.73 sq.m. Ages 30-39 = 107 mL/min/1.73 sq.m. Ages 40-49 = 99 mL/min/1.73 sq.m. Ages 50-59 = 93 mL/min/1.73 sq.m. Ages 60-69 = 85 mL/min/1.73 sq.m. Ages 70+ = 75 mL/min/1.73 sq.m.Chronic Kidney Disease: Less than 60 mL/min/1.73 square metersEnd Stage Renal Disease: Less than 15 mL/min/1.73 square meters Performed By: #### Rio ALBARRAN, CMP ####[address] [place], [place] [address] GFR Non- 118 ml/min/1.73sqm Normal [facility] ([place]) Comment on above: Result Comment: GFR Population mean for , Non- Americans Ages 20-29 = 116 mL/min/1.73 sq.m. Ages 30-39 = 107 mL/min/1.73 sq.m. Ages 40-49 = 99 mL/min/1.73 sq.m. Ages 50-59 = 93 mL/min/1.73 sq.m. Ages 60-69 = 85 mL/min/1.73 sq.m. Ages 70+ = 75 mL/min/1.73 sq.m.Chronic Kidney Disease: Less than 60 mL/min/1.73 square metersEnd Stage Renal Disease: Less than 15 mL/min/1.73 square meters Performed By: #### Rio ALBARRAN, CMP ####[address] [place], [place] [address] [facility] Albumin Level 2.3 G/dL Low 3.5-5.0 [facility] ([place]) Comment on above: Performed By: #### Rio ALBARRAN, CMP ####[address] [place], [place] [address] Albumin/Globulin [Mass ratio] 0.5 {ratio} Low 1.1-2.5 [facility] ([place]) Comment on above: Performed By: #### Rio ALBARRAN, CMP ####[address] [place], [place] [address] ALP [Catalytic activity/Vol] 276 U/L High 40-135 [facility] ([place]) Comment on above: Performed By: #### Rio ALBARRAN, CMP ####[address] [place], [place] [address] ALT [Catalytic activity/Vol] 84 U/L High 14-59 [facility] ([place]) Comment on above: Performed By: #### Rio ALBARRAN, CMP ####[address] [place], [place] [address] AST [Catalytic activity/Vol] 35 U/L Normal 10-40 [facility] ([place]) Comment on above: Performed By: #### Rio ALBARRAN, CMP ####[address] [place], [place] [address] Bili Total 0.5 mg/dL Normal 0.2-1.0 [facility] ([place]) Comment on above: Result Comment: Use of this assay is not recommended for patients undergoing treatment with eltrombopag due to the potential for falsely elevated results. Performed By: #### Rio ALBARRAN, CMP ####[address] [place], [place] [address] BUN/Creatinine Ratio 8 ratio Normal 7-27 [facility] ([place]) Comment on above: Performed By: #### Rio ALBARRAN, CMP ####[address] [place], [place] [address] Calcium [Mass/Vol] 8.5 mg/dL Normal 8.4-10.2 [facility] ([place]) Comment on above: Performed By: #### Rio ALBARRAN, CMP ####[address] [place], [place] [address] Chloride [Moles/Vol] 100 mmol/L Normal 98-107 [facility] ([place]) Comment on above: Performed By: #### Rio ALBARRNA, CMP ####[address] [place], [place] [address] CO2 [Moles/Vol] 25 mmol/L Normal 22-29 [facility] ([place]) Comment on above: Performed By: #### Rio ALBARRAN, CMP ####[address] [place], [place] [address] Creatinine [Mass/Vol] 0.63 mg/dL Normal 0.55-1.02 [facility] ([place]) Comment on above: Performed By: #### Rio ALBARRAN, CMP ####[address] [place], [place] [address] Electrolyte Balance 11.0 mEq/L Normal 4.0-15.0 [facility] ([place]) Comment on above: Performed By: #### Rio ALBARRAN, CMP ####[address] [place], [place] [address] Globulin 4.7 G/dL Normal [facility] ([place]) Comment on above: Performed By: #### Rio ALBARRAN, CMP ####[address] [place], [place] [address] Glucose [Mass/Vol] 109 mg/dL High 70-105 [facility] ([place]) Comment on above: Performed By: #### Rio ALBARRAN, CMP ####[address] [place], [place] [address] Potassium [Moles/Vol] 3.5 mmol/L Normal 3.5-5.1 [facility] ([place]) Comment on above: Performed By: #### Rio ALBARRAN, CMP ####[address]ia [address] [place], [place] [address] Sodium [Moles/Vol] 136 mmol/L Normal 136-145 [facility] ([place]) Comment on above: Performed By: #### Rio ALBARRAN, CMP ####[address]ia [address] [place], [place] [address] Total Protein 7.0 G/dL Normal 6.4-8.2 [facility] ([place]) Comment on above: Performed By: #### Rio ALBARRAN, CMP ####S[address]ia [address] [place], [place] [address] Urea nitrogen [Mass/Vol] 5 mg/dL Low 7-18 [facility] ([place]) Comment on above: Performed By: #### Rio ALBARRAN, CMP ####[address] [place], [place] [address] LABORATORYOrdered By: Garrett Brower on 01-12-2023 Glucose [Mass/Vol] 132 mg/dL High 70 - 110 mg/dL [facility] Work Phone: Time of Stated Blood Glucose [id number] [facility] Work Phone: LABORATORYOrdered By: SYSTEM SYSTEM on 01-12-2023 Albumin BCP dye [Mass/Vol] 2.3 G/dL Low 3.5 - 5.0 G/dL AO ADM SS Albumin/Globulin [Mass ratio] 0.5 {ratio} Low 1.1 - 2.5 ratio AO ADM SS ALP [Catalytic activity/Vol] 276 U/L High 40 - 135 U/L AO ADM SS ALT With P-5'-P [Catalytic activity/Vol] 84 U/L High 14 - 59 U/L AO ADM SS AST With P-5'-P [Catalytic activity/Vol] 35 U/L Normal 10 - 40 U/L AO ADM SS Bilirubin [Mass/Vol] 0.5 mg/dL Normal 0.2 - 1 .0 mg/dL AO ADM SS Comment on above: Interpretive Data: U se of this assay is not recommended for patients undergoing treatment with eltrombopag due to the potential for falsely elevated results. Calcium [Mass/Vol] 8.5 mg/dL Normal 8.4 - 10. 2 mg/dL AO ADM SS Chloride [Moles/Vol] 100 mmol/L Normal 98 - 10 7 mmol/L AO ADM SS CO2 [Moles/Vol] 25 mmol/L Normal 22 - 29 mmol/L AO ADM SS Creatinine [Mass/Vol] 0.63 mg/dL Normal 0.55 - 1.02 mg/dL AO ADM SS Electrolyte Balance 11.0 mEq/L Normal 4.0 - 15 .0 mEq/L AO ADM SS GFR/1.73 sq M.predicted among blacks MDRD (S/P/Bld) [Vol rate/Area] 143 ml/min/1.73sqm Invalid Interpretation Code AO Chemistry S Comment on above: Interpretive Data: GFR Population mean for , Non- Americans Ages 20-29 = 116 mL/min/1.73 sq.m. Ages 30-39 = 107 mL/min/1.73 sq.m. Ages 40-49 = 99 mL/min/1.73 sq.m. Ages 50-59 = 93 mL/min/1.73 sq.m. Ages 60-69 = 85 mL/min/1.73 sq.m. Ages 70+ = 75 mL/min/1.73 sq.m. Chronic Kidney Disease: Less than 60 mL/min/1.73 square meters End Stage Renal Disease: Less than 15 mL/min/1.73 square meters GFR/1.73 sq M.predicted among non-blacks MDRD (S/P/Bld) [Vol rate/Area] 118 ml/min/1.73sqm Invalid Interpretation Code AO Chemistry S Comment on above: Interpretive Data: GFR Population mean for , Non- Americans Ages 20-29 = 116 mL/min/1.73 sq.m. Ages 30-39 = 107 mL/min/1.73 sq.m. Ages 40-49 = 99 mL/min/1.73 sq.m. Ages 50-59 = 93 mL/min/1.73 sq.m. Ages 60-69 = 85 mL/min/1.73 sq.m. Ages 70+ = 75 mL/min/1.73 sq.m. Chronic Kidney Disease: Less than 60 mL/min/1.73 square meters End Stage Renal Disease: Less than 15 mL/min/1.73 square meters Globulin 4.7 G/dL Invalid Interpretation Code AO ADM SS Glucose [Mass/Vol] 109 mg/dL High 70 - 105 mg/dL AO ADM SS Potassium [Moles/Vol] 3.5 mmol/L Normal 3.5 - 5.1 mmol/L AO ADM SS Protein [Mass/Vol] 7.0 G/dL Normal 6.4 - 8.2 G/dL AO ADM SS Sodium [Moles/Vol] 136 mmol/L Normal 136 - 145 mmol/L AO ADM SS Urea nitrogen [Mass/Vol] 5 mg/dL Low 7 - 18 mg/dL AO ADM SS Urea nitrogen/Creatinine [Mass ratio] 8 ratio Normal 7 - 27 ratio AO ADM SS LABORATORYOrdered By: Perla Haq on 01-12-2023 HAV IgM IA Ql Non-Reactive (01/12/23 9:16 PM) Normal Non-Reacti ve AH ADM SS HAV IgM IA Ql No serological evide nce of a current Hepatitis A infection. Invalid Interpretation Code Chemistry S HBV core IgM IA Ql Non-Reactive (01/12/23 9:16 PM) Normal Non-Reacti ve AH ADM SS HBV core IgM IA Ql Samples with a value < 0.80 Index are considered nonreactive (negative) for IgM antibodies to hepatitis B core antigen. Invalid Interpretation Code Chemistry S HBV surface Ag IA Ql Non-Reactive (01/12/23 9:16 PM) Normal Non-Reacti ve AH ADM SS HCV Ab IA Ql Non-Reactive (01/12/23 9:16 PM) Normal Non-Reacti ve AH ADM SS HCV Ab IA Ql Nonreactive: Samples with a value < 0.80 are considered nonreactive (negative) for antibodies to HCV.A negative test result does not exclude the possibility of exposure to or infection with HCV. HCV antibodies may be undetectable in some stages of the infection and in some clinical conditions. Invalid Interpretation Code Chemistry S LABORATORYOrdered By: Tila Castro on 01-12-2023 ABO and Rh group Nom (Bld) B positive (01/12/23 9:03 PM) [facility] Work Phone: Group B Strep, External Unknown (01/12/23 9:03 PM) [facility] Work Phone: Hepatitis B Date Performed [id number] [facility] Work Phone: Hepatitis B, External Negative (01/12/23 9:03 PM) [facility] Work Phone: HIV Antibodies, External Unknown (01/12/23 9:03 PM) [facility] Work Phone: RPR, External Nonreactive (01/12/23 9:03 PM) [facility] Work Phone: Rubella, External Immune (01/12/23 9:03 PM) [facility] Work Phone: .GFRon 01-08-2023 GFR 123 ml/min/1.73sqm Normal [facility] ([place]) Comment on above: Result Comment: GFR Population mean for , Non- Americans Ages 20-29 = 116 mL/min/1.73 sq.m. Ages 30-39 = 107 mL/min/1.73 sq.m. Ages 40-49 = 99 mL/min/1.73 sq.m. Ages 50-59 = 93 mL/min/1.73 sq.m. Ages 60-69 = 85 mL/min/1.73 sq.m. Ages 70+ = 75 mL/min/1.73 sq.m.Chronic Kidney Disease: Less than 60 mL/min/1.73 square metersEnd Stage Renal Disease: Less than 15 mL/min/1.73 square meters Performed By: #### C MP, GFR ####[address] [place], [place] [address] GFR Non- 101 ml/min/1.73sqm Normal [facility] ([place]) Comment on above: Result Comment: GFR Population mean for , Non- Americans Ages 20-29 = 116 mL/min/1.73 sq.m. Ages 30-39 = 107 mL/min/1.73 sq.m. Ages 40-49 = 99 mL/min/1.73 sq.m. Ages 50-59 = 93 mL/min/1.73 sq.m. Ages 60-69 = 85 mL/min/1.73 sq.m. Ages 70+ = 75 mL/min/1.73 sq.m.Chronic Kidney Disease: Less than 60 mL/min/1.73 square metersEnd Stage Renal Disease: Less than 15 mL/min/1.73 square meters Performed By: #### C MP, GFR ####[address] [place], [place] [address] CMPon 01-08-2023 Albumin Level 2.3 G/dL Low 3.5-5.0 [facility] ([place]) Comment on above: Performed By: #### C MP, GFR ####[address] [place], [place] [address] Albumin/Globulin [Mass ratio] 0.5 {ratio} Low 1.1-2.5 [facility] ([place]) Comment on above: Performed By: #### C MP, GFR ####[address] [place], [place] [address] ALP [Catalytic activity/Vol] 279 U/L High 40-135 [facility] ([place]) Comment on above: Performed By: #### C MP, GFR ####[address] [place], [place] [address] ALT [Catalytic activity/Vol] 161 U/L High 14-59 [facility] ([place]) Comment on above: Performed By: #### C MP, GFR ####[address] [place], [place] [address] AST [Catalytic activity/Vol] 57 U/L High 10-40 [facility] ([place]) Comment on above: Performed By: #### C MP, GFR ####[address] [place], [place] [address] Bili Total 0.5 mg/dL Normal 0.2-1.0 [facility] ([place]) Comment on above: Result Comment: Use of this assay is not recommended for patients undergoing treatment with eltrombopag due to the potential for falsely elevated results. Performed By: #### C MP, GFR ####[address] [place], [place] [address] BUN/Creatinine Ratio 8 ratio Normal 7-27 [facility] ([place]) Comment on above: Performed By: #### C MP, GFR ####[address] [place], [place] [address] Calcium [Mass/Vol] 8.9 mg/dL Normal 8.4-10.2 [facility] ([place]) Comment on above: Performed By: #### C MP, GFR ####[address] [place], [place] [address] Chloride [Moles/Vol] 101 mmol/L Normal 98-107 [facility] ([place]) Comment on above: Performed By: #### C MP, GFR ####[address] [place], [place] [address] CO2 [Moles/Vol] 23 mmol/L Normal 22-29 [facility] ([place]) Comment on above: Performed By: #### C MP, GFR ####[address] [place], [place] [address] Creatinine [Mass/Vol] 0.72 mg/dL Normal 0.55-1.02 [facility] ([place]) Comment on above: Performed By: #### C MP, GFR ####[address] [place], [place] [address] Electrolyte Balance 13.0 mEq/L Normal 4.0-15.0 [facility] ([place]) Comment on above: Performed By: #### C MP, GFR ####[address] [place], [place] [address] Globulin 4.6 G/dL Normal [facility] ([place]) Comment on above: Performed By: #### C MP, GFR ####[address] [place], [place] [address] Glucose [Mass/Vol] 172 mg/dL High 70-105 [facility] ([place]) Comment on above: Performed By: #### C MP, GFR ####[address] [place], [place] [address] Potassium [Moles/Vol] 4.1 mmol/L Normal 3.5-5.1 [facility] ([place]) Comment on above: Performed By: #### C MP, GFR ####[address] [place], [place] [address] Sodium [Moles/Vol] 137 mmol/L Normal 136-145 [facility] ([place]) Comment on above: Performed By: #### C MP, GFR ####[address] [place], [place] [address] Total Protein 6.9 G/dL Normal 6.4-8.2 [facility] ([place]) Comment on above: Performed By: #### C MP, GFR ####[address] [place], [place] [address] Urea nitrogen [Mass/Vol] 6 mg/dL Low 7-18 [facility] ([place]) Comment on above: Performed By: #### C MP, GFR ####[address] [place], [place] [address] GLFon 01-08-2023 Glucose [Mass/Vol] 177 mg/dL High 83-110 [facility] ([place]) Comment on above: Performed By: #### G ####[address]ia [address] [place], [place] [address] LABORATORYOrdered By: SYSTEM SYSTEM on 01-08-2023 Albumin BCP dye [Mass/Vol] 2.3 G/dL Low 3.5 - 5.0 G/dL AO ADM SS Albumin/Globulin [Mass ratio] 0.5 {ratio} Low 1.1 - 2.5 ratio AO ADM SS ALP [Catalytic activity/Vol] 279 U/L High 40 - 135 U/L AO ADM SS ALT With P-5'-P [Catalytic activity/Vol] 161 U/L High 14 - 59 U/L AO ADM SS AST With P-5'-P [Catalytic activity/Vol] 57 U/L High 10 - 40 U/L AO ADM SS Bilirubin [Mass/Vol] 0.5 mg/dL Normal 0.2 - 1 .0 mg/dL AO ADM SS Comment on above: Interpretive Data: U se of this assay is not recommended for patients undergoing treatment with eltrombopag due to the potential for falsely elevated results. Calcium [Mass/Vol] 8.9 mg/dL Normal 8.4 - 10. 2 mg/dL AO ADM SS Chloride [Moles/Vol] 101 mmol/L Normal 98 - 10 7 mmol/L AO ADM SS CO2 [Moles/Vol] 23 mmol/L Normal 22 - 29 mmol/L AO ADM SS Creatinine [Mass/Vol] 0.72 mg/dL Normal 0.55 - 1.02 mg/dL AO ADM SS Electrolyte Balance 13.0 mEq/L Normal 4.0 - 15 .0 mEq/L AO ADM SS GFR/1.73 sq M.predicted among blacks MDRD (S/P/Bld) [Vol rate/Area] 123 ml/min/1.73sqm Invalid Interpretation Code AO Chemistry S Comment on above: Interpretive Data: GFR Population mean for , Non- Americans Ages 20-29 = 116 mL/min/1.73 sq.m. Ages 30-39 = 107 mL/min/1.73 sq.m. Ages 40-49 = 99 mL/min/1.73 sq.m. Ages 50-59 = 93 mL/min/1.73 sq.m. Ages 60-69 = 85 mL/min/1.73 sq.m. Ages 70+ = 75 mL/min/1.73 sq.m. Chronic Kidney Disease: Less than 60 mL/min/1.73 square meters End Stage Renal Disease: Less than 15 mL/min/1.73 square meters GFR/1.73 sq M.predicted among non-blacks MDRD (S/P/Bld) [Vol rate/Area] 101 ml/min/1.73sqm Invalid Interpretation Code AO Chemistry S Comment on above: Interpretive Data: GFR Population mean for , Non- Americans Ages 20-29 = 116 mL/min/1.73 sq.m. Ages 30-39 = 107 mL/min/1.73 sq.m. Ages 40-49 = 99 mL/min/1.73 sq.m. Ages 50-59 = 93 mL/min/1.73 sq.m. Ages 60-69 = 85 mL/min/1.73 sq.m. Ages 70+ = 75 mL/min/1.73 sq.m. Chronic Kidney Disease: Less than 60 mL/min/1.73 square meters End Stage Renal Disease: Less than 15 mL/min/1.73 square meters Globulin 4.6 G/dL Invalid Interpretation Code AO ADM SS Glucose [Mass/Vol] 172 mg/dL High 70 - 105 mg/dL AO ADM SS Potassium [Moles/Vol] 4.1 mmol/L Normal 3.5 - 5.1 mmol/L AO ADM SS Protein [Mass/Vol] 6.9 G/dL Normal 6.4 - 8.2 G/dL AO ADM SS Sodium [Moles/Vol] 137 mmol/L Normal 136 - 145 mmol/L AO ADM SS Urea nitrogen [Mass/Vol] 6 mg/dL Low 7 - 18 mg/dL AO ADM SS Urea nitrogen/Creatinine [Mass ratio] 8 ratio Normal 7 - 27 ratio AO ADM SS LABORATORYOrdered By: Madeline Amador on 01-08-2023 Glucose [Mass/Vol] 177 mg/dL High 83 - 110 mg/dL AO ADM SS BILEon 01-06-2023 Chenodeoxycholic Acid 7.8 umol/l High 0.0-3.4 [facility] ([place]) Comment on above: Performed By: #### C MP, GFR, BILE, HFP ####[address]ia [address] [place], [place] [address] Cholic Acid 8.8 umol/l High 0.0-1.9 [facility] ([place]) Comment on above: Performed By: #### C MP, GFR, BILE, HFP ####[address] [place], [place] [address] Deoxycholic Acid 1.3 umol/l Normal 0.0-2.5 [facility] ([place]) Comment on above: Performed By: #### C MP, GFR, BILE, HFP ####[address] [place], [place] [address] Total Bile Acids 18.2 umol/l High 0.0-7.0 [facility] ([place]) Comment on above: Result Comment: INTE RPRETIVE INFORMATION: Bile Acids, Fractionated and TotalThis test was developed and its performance characteristics determined by [facility]. It has not been cleared or approved by the [place] Food and Drug Administration. This test was performed in a CLIA certified laboratory and is intended for clinical purposes.Performed By: [facility] [place] [id number] Director: Froilan Childress MD, PhDCLIA Number: [id number] Performed By: #### C MP, GFR, BILE, HFP ####[address]ia [address] [place], [place] [address] Ursodeoxycholic Acid 0.3 umol/l Normal 0.0-1.0 [facility] ([place]) Comment on above: Performed By: #### C MP, GFR, BILE, HFP ####Sophia [address] [place], [place] [address] .Auto Diffon 01-05-2023 Basophil, Absolute 0.0 10 3/mcL Normal 0.0-0.2 [facility] ([place]) Comment on above: Performed By: #### H EPAC, GGT ####[place] [address]#### CBC, ADIFF, CMP, ANEU, GFR ####[address] [place], [place] [address] Basophils/100 WBC (Bld) 0.4 % Normal 0.0-2.5 [facility] ([place]) Comment on above: Performed By: #### H EPAC, GGT ####[place] [address]#### CBC, ADIFF, CMP, ANEU, GFR ####[address] [place], [place] [address] Eosinophil, Absolute 0.1 10 3/mcL Normal 0.0-0.4 [facility] ([place]) Comment on above: Performed By: #### H EPAC, GGT ####[place] [address]#### CBC, ADIFF, CMP, ANEU, GFR ####[facility] [place], [place] [address] Eosinophils/100 WBC (Bld) 0.7 % Normal 0.0-7.0 [facility] ([place]) Comment on above: Performed By: #### H EPAC, GGT ####[place] [address]#### CBC, ADIFF, CMP, ANEU, GFR ####[address] [place], [place] [address] Lymphocyte, Absolute 2.2 10 3/mcL Normal 0.8-3.9 [facility] ([place]) Comment on above: Performed By: #### H EPAC, GGT ####[place] [address]#### CBC, ADIFF, CMP, ANEU, GFR ####[facility] [place], [place] [address] Lymphocytes/100 WBC (Bld) 28.3 % Normal 10.0-50.0 [facility] ([place]) Comment on above: Performed By: #### H EPAC, GGT ####[place] [address]#### CBC, ADIFF, CMP, ANEU, GFR ####[address]ophia [address] [place], [place] [address] Monocyte, Absolute 0.6 10 3/mcL Normal 0.2-1.0 [facility] ([place]) Comment on above: Performed By: #### H EPAC, GGT ####[address] [address]#### CBC, ADIFF, CMP, ANEU, GFR ####[address]ia [address] [place], [place] [address] Monocytes/100 WBC (Bld) 8.2 % Normal 1.7-13.0 [facility] ([place]) Comment on above: Performed By: #### H EPAC, GGT ####[address] [address]#### CBC, ADIFF, CMP, ANEU, GFR ####S[address]ia [address] [place], [place] [address] Neutrophils/100 WBC (Bld) 62.4 % Normal 37.0-80.0 [facility] ([place]) Comment on above: Performed By: #### H EPAC, GGT ####[address] [address]#### CBC, ADIFF, CMP, ANEU, GFR ####Sophia [address]wt[address] [place], [place] [address] .GFRon 01-05-2023 GFR 131 ml/min/1.73sqm Normal [facility] ([place]) Comment on above: Result Comment: GFR Population mean for , Non- Americans Ages 20-29 = 116 mL/min/1.73 sq.m. Ages 30-39 = 107 mL/min/1.73 sq.m. Ages 40-49 = 99 mL/min/1.73 sq.m. Ages 50-59 = 93 mL/min/1.73 sq.m. Ages 60-69 = 85 mL/min/1.73 sq.m. Ages 70+ = 75 mL/min/1.73 sq.m.Chronic Kidney Disease: Less than 60 mL/min/1.73 square metersEnd Stage Renal Disease: Less than 15 mL/min/1.73 square meters Performed By: #### H EPAC, GGT ####[address] [address]#### CBC, ADIFF, CMP, ANEU, GFR ####[address]ophi[address]ary [address] [place], [place] [address] GFR Non- 108 ml/min/1.73sqm Normal [facility] ([place]) Comment on above: Result Comment: GFR Population mean for , Non- Americans Ages 20-29 = 116 mL/min/1.73 sq.m. Ages 30-39 = 107 mL/min/1.73 sq.m. Ages 40-49 = 99 mL/min/1.73 sq.m. Ages 50-59 = 93 mL/min/1.73 sq.m. Ages 60-69 = 85 mL/min/1.73 sq.m. Ages 70+ = 75 mL/min/1.73 sq.m.Chronic Kidney Disease: Less than 60 mL/min/1.73 square metersEnd Stage Renal Disease: Less than 15 mL/min/1.73 square meters Performed By: #### H EPAC, GGT ####[place] [address]#### CBC, ADIFF, CMP, ANEU, GFR ####[address] [place] [address] .NEUABSon 01-05-2023 Neutrophil, Absolute 4.8 10 3/mcL Normal 2.9-6.2 [facility] ([place]) Comment on above: Performed By: #### H EPAC, GGT ####[place] [address]#### CBC, ADIFF, CMP, ANEU, GFR ####Sophia [address] [place], [place] [address] CBCon 01-05-2023 Erythrocyte distribution width (RBC) [Ratio] 14.7 % High 11.5-14.5 [facility] ([place]) Comment on above: Performed By: #### H EPAC, GGT ####[place] [address]#### CBC, ADIFF, CMP, ANEU, GFR ####[place] [address] Hematocrit (Bld) [Volume fraction] 33.1 % Low 37.0-47.0 [facility] ([place]) Comment on above: Performed By: #### H EPAC, GGT ####[place] [address]#### CBC, ADIFF, CMP, ANEU, GFR ####[place] [address] [place] [address] Hgb 10.8 G/dL Low 12.0-16.0 [facility] ([place]) Comment on above: Performed By: #### H EPAC, GGT ####[place] [address]#### CBC, ADIFF, CMP, ANEU, GFR ####[place] [address] [place] [address] MCH (RBC) [Entitic mass] 24.5 pg Low 27.0-31.2 [facility] ([place]) Comment on above: Performed By: #### H EPAC, GGT ####[place] [address]#### CBC, ADIFF, CMP, ANEU, GFR ####[place] [address] MCHC 32.6 G/dL Low 33.0-37.0 [facility] ([place]) Comment on above: Performed By: #### H EPAC, GGT ####[place] [address]#### CBC, ADIFF, CMP, ANEU, GFR ####[facility] [place] [address] MCV (RBC) [Entitic vol] 75.1 fL Low 80.0-94.0 [facility] ([place]) Comment on above: Performed By: #### H EPAC, GGT ####[place] [address]#### CBC, ADIFF, CMP, ANEU, GFR ####[place] [address] [place] [address] Platelet 159 10 3/mcL Normal 130-400 [facility] ([place]) Comment on above: Performed By: #### H EPAC, GGT ####[address] [address]#### CBC, ADIFF, CMP, ANEU, GFR ####Sophiagary [address] [place], [place] [address] Platelet mean volume (Bld) [Entitic vol] 9.3 fL Normal 7.4-10.4 [facility] ([place]) Comment on above: Performed By: #### H EPAC, GGT ####[place] [address]#### CBC, ADIFF, CMP, ANEU, GFR ####Sophia [address] [place], [place] [address] RBC 4.41 10 6/mcL Normal 4.20-5.40 [facility] ([place]) Comment on above: Performed By: #### Jonna EPAC, GGT ####[place] [address]#### CBC, ADIFF, CMP, ANEU, GFR ####Sophia [address] [place], [place] [address] WBC 7.6 10 3/mcL Normal 4.6-10.8 [facility] ([place]) Comment on above: Performed By: #### H EPAC, GGT ####[place] [address]#### CBC, ADIFF, CMP, ANEU, GFR ####Sophia [address] [place], [place] [address] CMPon 01-05-2023 Albumin Level 2.1 G/dL Low 3.5-5.0 [facility] ([place]) Comment on above: Performed By: #### H EPAC, GGT ####[address] [address]#### CBC, ADIFF, CMP, ANEU, GFR ####Sophiagary [address] [place], [place] [address] Albumin/Globulin [Mass ratio] 0.5 {ratio} Low 1.1-2.5 [facility] ([place]) Comment on above: Performed By: #### H EPAC, GGT ####[place] [address]#### CBC, ADIFF, CMP, ANEU, GFR ####[address] [place], [place] [address] ALP [Catalytic activity/Vol] 256 U/L High 40-135 [facility] ([place]) Comment on above: Performed By: #### H EPAC, GGT ####[place] [address]#### CBC, ADIFF, CMP, ANEU, GFR ####[address] [place], [place] [address] ALT [Catalytic activity/Vol] 169 U/L High 14-59 [facility] ([place]) Comment on above: Performed By: #### H EPAC, GGT ####[place] [address]#### CBC, ADIFF, CMP, ANEU, GFR ####[address] [place], [place] [address] AST [Catalytic activity/Vol] 57 U/L High 10-40 [facility] ([place]) Comment on above: Performed By: #### H EPAC, GGT ####[place] [address]#### CBC, ADIFF, CMP, ANEU, GFR ####[facility] [place], [place] [address] Bili Total 0.5 mg/dL Normal 0.2-1.0 [facility] ([place]) Comment on above: Result Comment: Use of this assay is not recommended for patients undergoing treatment with eltrombopag due to the potential for falsely elevated results. Performed By: #### H EPAC, GGT ####[place] [address]#### CBC, ADIFF, CMP, ANEU, GFR ####[facility] [place], [place] [address] BUN/Creatinine Ratio 9 ratio Normal 7-27 [facility] ([place]) Comment on above: Performed By: #### H EPAC, GGT ####[place] [address]#### CBC, ADIFF, CMP, ANEU, GFR ####[address] [place], [place] [address] Calcium [Mass/Vol] 8.5 mg/dL Normal 8.4-10.2 [facility] ([place]) Comment on above: Performed By: #### H EPAC, GGT ####[place] [address]#### CBC, ADIFF, CMP, ANEU, GFR ####[facility] [place], [place] [address] Chloride [Moles/Vol] 103 mmol/L Normal 98-107 [facility] ([place]) Comment on above: Performed By: #### H EPAC, GGT ####[place] [address]#### CBC, ADIFF, CMP, ANEU, GFR ####[address] [place], [place] [address] CO2 [Moles/Vol] 22 mmol/L Normal 22-29 [facility] ([place]) Comment on above: Performed By: #### H EPAC, GGT ####[place] [address]#### CBC, ADIFF, CMP, ANEU, GFR ####[facility] [place], [place] [address] Creatinine [Mass/Vol] 0.68 mg/dL Normal 0.55-1.02 [facility] ([place]) Comment on above: Performed By: #### H EPAC, GGT ####[place] [address]#### CBC, ADIFF, CMP, ANEU, GFR ####[address] [place], [place] [address] Electrolyte Balance 10.0 mEq/L Normal 4.0-15.0 [facility] ([place]) Comment on above: Performed By: #### H EPAC, GGT ####[address] [address]#### CBC, ADIFF, CMP, ANEU, GFR ####[facility] [place], [place] [address] Globulin 4.3 G/dL Normal [facility] ([place]) Comment on above: Performed By: #### H EPAC, GGT ####[address] [address]#### CBC, ADIFF, CMP, ANEU, GFR ####[address] [place], [place] [address] Glucose [Mass/Vol] 95 mg/dL Normal 70-105 [facility] ([place]) Comment on above: Performed By: #### H EPAC, GGT ####[place] [address]#### CBC, ADIFF, CMP, ANEU, GFR ####[facility] [place], [place] [address] Potassium [Moles/Vol] 4.0 mmol/L Normal 3.5-5.1 [facility] ([place]) Comment on above: Performed By: #### H EPAC, GGT ####[place] [address]#### CBC, ADIFF, CMP, ANEU, GFR ####[address] [place], [place] [address] Sodium [Moles/Vol] 135 mmol/L Low 136-145 [facility] ([place]) Comment on above: Performed By: #### H EPAC, GGT ####[place] [address]#### CBC, ADIFF, CMP, ANEU, GFR ####[facility] [place], [place] [address] Total Protein 6.4 G/dL Normal 6.4-8.2 [facility] ([place]) Comment on above: Performed By: #### H EPAC, GGT ####[place] [address]#### CBC, ADIFF, CMP, ANEU, GFR ####[place] [address] Urea nitrogen [Mass/Vol] 6 mg/dL Low 7-18 [facility] ([place]) Comment on above: Performed By: #### H EPAC, GGT ####[place] [address]#### CBC, ADIFF, CMP, ANEU, GFR ####Toutle [address] [place] [address] GGTon 01-05-2023 Gamma GT 35 U/L Normal 5-55 [facility] ([place]) Comment on above: Performed By: #### H EPAC, GGT ####[place] [address]#### CBC, ADIFF, CMP, ANEU, GFR ####[place] [id number] [place] [address] HEPACon 01-05-2023 Hep A IgM Ab Non-Reactive Normal Non-Reacti [facility] ([place]) Comment on above: Performed By: #### H EPAC, GGT ####[place] [address]#### CBC, ADIFF, CMP, ANEU, GFR ####[place] [id number] [place] [address] Hep A IgM Ab Int Normal [facility] ([place]) Comment on above: Result Comment: No s erological evidence of a current Hepatitis A infection.See Interp Performed By: #### H EPAC, GGT ####[place] [address]#### CBC, ADIFF, CMP, ANEU, GFR ####[facility] [place] [address] Hep B Core IgM Ab Non-Reactive Normal Non-Reacti [facility] ([place]) Comment on above: Performed By: #### H EPAC, GGT ####[place] [address]#### CBC, ADIFF, CMP, ANEU, GFR ####Toutle [address] [place] [address] Hep B Core IgM Ab Int [facility] ([place]) Comment on above: Result Comment: Samp les with a value < 0.80 Index are considered nonreactive (negative) for IgM antibodies to hepatitis B core antigen.See Interp Performed By: #### H EPAC, GGT ####[place] [address]#### CBC, ADIFF, CMP, ANEU, GFR ####Sophia [address] [place] [address] Hep B Surf Ag Non-Reactive Normal Non-Reacti [facility] ([place]) Comment on above: Performed By: #### H EPAC, GGT ####[place] [address]#### CBC, ADIFF, CMP, ANEU, GFR ####Sophia [address] [place] [address] Hep [facility] Comment on above: Performed By: #### H EPAC, GGT ####[place] [address]#### CBC, ADIFF, CMP, ANEU, GFR ####Sophia [address] [place] [address] Hep C Ab Int [facility] ([place]) Comment on above: Result Comment: Nonr eactive: Samples with a value < 0.80 are considered nonreactive (negative) for antibodies to HCV.A negative test result does not exclude the possibility of exposure to or infection with HCV. HCV antibodies may be undetectable in some stages of the infection and in some clinical conditions.See Interp Performed By: #### H EPAC, GGT ####[place] [address]#### CBC, ADIFF, CMP, ANEU, GFR ####Sophia [address] [place] [address] .GFRon 01-04-2023 GFR 133 ml/min/1.73sqm [facility] ([place]) Comment on above: Result Comment: GFR Population mean for , Non- Americans Ages 20-29 = 116 mL/min/1.73 sq.m. Ages 30-39 = 107 mL/min/1.73 sq.m. Ages 40-49 = 99 mL/min/1.73 sq.m. Ages 50-59 = 93 mL/min/1.73 sq.m. Ages 60-69 = 85 mL/min/1.73 sq.m. Ages 70+ = 75 mL/min/1.73 sq.m.Chronic Kidney Disease: Less than 60 mL/min/1.73 square metersEnd Stage Renal Disease: Less than 15 mL/min/1.73 square meters Performed By: #### C MP, GFR ####Sophia [address] [place], [place] [address] GFR Non- 110 ml/min/1.73sqm Normal [facility] ([place]) Comment on above: Result Comment: GFR Population mean for , Non- Americans Ages 20-29 = 116 mL/min/1.73 sq.m. Ages 30-39 = 107 mL/min/1.73 sq.m. Ages 40-49 = 99 mL/min/1.73 sq.m. Ages 50-59 = 93 mL/min/1.73 sq.m. Ages 60-69 = 85 mL/min/1.73 sq.m. Ages 70+ = 75 mL/min/1.73 sq.m.Chronic Kidney Disease: Less than 60 mL/min/1.73 square metersEnd Stage Renal Disease: Less than 15 mL/min/1.73 square meters Performed By: #### C MP, GFR ####Sophia [address] [place], [place] [address] CMPon 01-04-2023 Albumin Level 2.4 G/dL Low 3.5-5.0 [facility] ([place]) Comment on above: Performed By: #### C MP, GFR ####Sophia [address] [place], [place] [address] Albumin/Globulin [Mass ratio] 0.5 {ratio} Low 1.1-2.5 [facility] ([place]) Comment on above: Performed By: #### C MP, GFR ####Sophia [address] [place], [place] [address] ALP [Catalytic activity/Vol] 272 U/L High 40-135 [facility] ([place]) Comment on above: Performed By: #### C MP, GFR ####Sophia [address] [place], [place] [address] ALT [Catalytic activity/Vol] 192 U/L High 14-59 [facility] ([place]) Comment on above: Performed By: #### C MP, GFR ####Sophia [address] [place], [place] [address] AST [Catalytic activity/Vol] 74 U/L High 10-40 [facility] ([place]) Comment on above: Performed By: #### C MP, GFR ####Sophia [address] [place], [place] [address] Bili Total 0.5 mg/dL Normal 0.2-1.0 [facility] ([place]) Comment on above: Result Comment: Use of this assay is not recommended for patients undergoing treatment with eltrombopag due to the potential for falsely elevated results. Performed By: #### C MP, GFR ####Sophia [address] [place], [place] [address] BUN/Creatinine Ratio 9 ratio Normal 7-27 [facility] ([place]) Comment on above: Performed By: #### C MP, GFR ####S[place] [address] [place], [place] [address] Calcium [Mass/Vol] 8.6 mg/dL Normal 8.4-10.2 [facility] ([place]) Comment on above: Performed By: #### C MP, GFR ####S[place] [address] [place], [place] [address] Chloride [Moles/Vol] 102 mmol/L Normal 98-107 [facility] ([place]) Comment on above: Performed By: #### C MP, GFR ####S[place] [address] [place], [place] [address] CO2 [Moles/Vol] 22 mmol/L Normal 22-29 [facility] ([place]) Comment on above: Performed By: #### C MP, GFR ####S[address] [place], [place] [address] Creatinine [Mass/Vol] 0.67 mg/dL Normal 0.55-1.02 [facility] ([place]) Comment on above: Performed By: #### C MP, GFR ####S[place] [address] [place], [place] [address] Electrolyte Balance 19.0 mEq/L High 4.0-15.0 [facility] ([place]) Comment on above: Performed By: #### C MP, GFR ####S[place] [address] [place], [place] [address] Globulin 4.6 G/dL Normal [facility] ([place]) Comment on above: Performed By: #### C MP, GFR ####S[place] [address] [place], [place] [address] Glucose [Mass/Vol] 146 mg/dL High 70-105 [facility] ([place]) Comment on above: Performed By: #### C MP, GFR ####S[address] [place], [place] [address] Potassium [Moles/Vol] 3.8 mmol/L Normal 3.5-5.1 [facility] ([place]) Comment on above: Performed By: #### C MP, GFR ####S[place] [place], [place] [address] Sodium [Moles/Vol] 143 mmol/L Normal 136-145 [facility] ([place]) Comment on above: Performed By: #### C MP, GFR ####S[place] [place], [place] [address] Total Protein 7.0 G/dL Normal 6.4-8.2 [facility] ([place]) Comment on above: Performed By: #### C MP, GFR ####Sophia [address] [place], [place] [address] Urea nitrogen [Mass/Vol] 6 mg/dL Low 7-18 [facility] ([place]) Comment on above: Performed By: #### C MP, GFR ####Sophia [address] [place], [place] [address] RPCURon 01-04-2023 U Creatinine 259.6 mg/dL High 28.0-117.0 [facility] ([place]) Comment on above: Order Comment: obtai n sample via catheter Performed By: #### R PCUR ####Sophia [address] [place], [place] [address] U Protein 29 mg/dL High 0-11 [facility] ([place]) Comment on above: Order Comment: obtai n sample via catheter Performed By: #### R PCUR ####S[place] [address] [place], [place] [address] U Ratio Prot/Creat 0.1 ratio Normal [facility] ([place]) Comment on above: Order Comment: obtai n sample via catheter Result Comment: resu lt calculated by rule GL_UR_PROT_NOTCALC_OLD(U Protein/U Creatinine) Performed By: #### R PCUR ####Sophia [address] [place], [place] [address] URICon 01-04-2023 Uric Acid Lvl 3.5 mg/dL Normal 2.6-6.2 [facility] ([place]) Comment on above: Performed By: #### U ANISA ####Sophia [address] [place], [place] [address] US ABDOMEN LIMITEDon 023 US ABDOMEN LIMITED Normal [facility] ([place]) .GFRon 01-03-2023 GFR 123 ml/min/1.73sqm Normal [facility] ([place]) Comment on above: Result Comment: GFR Population mean for , Non- Americans Ages 20-29 = 116 mL/min/1.73 sq.m. Ages 30-39 = 107 mL/min/1.73 sq.m. Ages 40-49 = 99 mL/min/1.73 sq.m. Ages 50-59 = 93 mL/min/1.73 sq.m. Ages 60-69 = 85 mL/min/1.73 sq.m. Ages 70+ = 75 mL/min/1.73 sq.m.Chronic Kidney Disease: Less than 60 mL/min/1.73 square metersEnd Stage Renal Disease: Less than 15 mL/min/1.73 square meters Performed By: #### C MP, GFR, BILE, HFP ####Sophia [address] [place], [place] [address] GFR Non- 101 ml/min/1.73sqm Normal [facility] ([place]) Comment on above: Result Comment: GFR Population mean for , Non- Americans Ages 20-29 = 116 mL/min/1.73 sq.m. Ages 30-39 = 107 mL/min/1.73 sq.m. Ages 40-49 = 99 mL/min/1.73 sq.m. Ages 50-59 = 93 mL/min/1.73 sq.m. Ages 60-69 = 85 mL/min/1.73 sq.m. Ages 70+ = 75 mL/min/1.73 sq.m.Chronic Kidney Disease: Less than 60 mL/min/1.73 square metersEnd Stage Renal Disease: Less than 15 mL/min/1.73 square meters Performed By: #### C MP, GFR, BILE, HFP ####Sophia [address] [place], [place] [address] CMPon 01-03-2023 BUN/Creatinine Ratio 7 ratio Normal 7-27 [facility] ([place]) Comment on above: Performed By: #### C MP, GFR, BILE, HFP ####Sophia [address] [place], [place] [address] CMPOrdered By: SYSTEM SYSTEM on 01-03-2023 Calcium [Mass/Vol] 8.8 mg/dL Normal 8.4-10.2 AO ADM SS Comment on above: Performed By: #### C MP, GFR, BILE, HFP ####Sophia [address] [place], [place] [address] Chloride [Moles/Vol] 102 mmol/L Normal 98-107 AO A DM SS Comment on above: Performed By: #### C MP, GFR, BILE, HFP ####Sophia [address] [place], [place] [address] CO2 [Moles/Vol] 24 mmol/L Normal 22-29 AO ADM SS Comment on above: Performed By: #### C MP, GFR, BILE, HFP ####Sophia [address] [place], [place] [address] Creatinine [Mass/Vol] 0.72 mg/dL Normal 0.55-1.02 AO ADM SS Comment on above: Performed By: #### C MP, GFR, BILE, HFP ####Sophia [address] [place], [place] [address] Electrolyte Balance 12.0 mEq/L Normal 4.0-15.0 AO AD M SS Comment on above: Performed By: #### C MP, GFR, BILE, HFP ####Sophia [address] [place], [place] [address] Glucose [Mass/Vol] 104 mg/dL Normal 70-105 AO ADM SS Comment on above: Performed By: #### C MP, GFR, BILE, HFP ####Sophia [address] [place], [place] [address] Potassium [Moles/Vol] 3.9 mmol/L Normal 3.5-5.1 AO ADM SS Comment on above: Performed By: #### C MP, GFR, BILE, HFP ####Sophia [address] [place], [place] [address] Sodium [Moles/Vol] 138 mmol/L Normal 136-145 AO ADM SS Comment on above: Performed By: #### C MP, GFR, BILE, HFP ####Sophia [address] [place], [place] [address] Urea nitrogen [Mass/Vol] 5 mg/dL Low 7-18 AO ADM SS Comment on above: Performed By: #### C MP, GFR, BILE, HFP ####Sophia [address] [place], [place] [address] HFPon 01-03-2023 Bili Indirect 0.3 mg/dL Normal [facility] ([place]) Comment on above: Performed By: #### C MP, GFR, BILE, HFP ####Sophia [address] [place], [place] [address] Albumin Level 2.4 G/dL Low 3.5-5.0 [facility] ([place]) Comment on above: Performed By: #### C MP, GFR, BILE, HFP ####Sophia [address] [place], [place] [address] ALT [Catalytic activity/Vol] 200 U/L High 14-59 [facility] ([place]) Comment on above: Performed By: #### C MP, GFR, BILE, HFP ####Sophia [address] [place], [place] [address] AST [Catalytic activity/Vol] 82 U/L High 10-40 [facility] ([place]) Comment on above: Performed By: #### C MP, GFR, BILE, HFP ####Sophia [address] [place], [place] [address] Bili Direct 0.3 mg/dL High 0.0-0.2 [facility] ([place]) Comment on above: Result Comment: Use of this assay is not recommended for patients undergoing treatment with eltrombopag due to the potential for falsely elevated results. Performed By: #### C MP, GFR, BILE, HFP ####Sophia [address] [place], [place] [address] Bili Total 0.6 mg/dL Normal 0.2-1.0 [facility] ([place]) Comment on above: Result Comment: Use of this assay is not recommended for patients undergoing treatment with eltrombopag due to the potential for falsely elevated results. Performed By: #### C MP, GFR, BILE, HFP ####Sophiagary [address] [place], [place] [address] Total Protein 7.5 G/dL Normal 6.4-8.2 [facility] ([place]) Comment on above: Performed By: #### C MP, GFR, BILE, HFP ####Sophia [address] [place], [place] [address] HFPOrdered By: SYSTEM SYSTEM on 01-03-2023 Albumin/Globulin [Mass ratio] 0.5 {ratio} Low 1.1-2.5 AO ADM SS Comment on above: Performed By: #### C MP, GFR, BILE, HFP ####Sophia [address] [place], [place] [address] ALP [Catalytic activity/Vol] 272 U/L High 40-135 AO ADM SS Comment on above: Performed By: #### C MP, GFR, BILE, HFP ####Sophia [address] [place], [place] [address] Globulin 5.1 G/dL Normal AO ADM SS Comment on above: Performed By: #### C MP, GFR, BILE, HFP ####Sophia [address] [place], [place] [address] LABORATORYOrdered By: SYSTEM SYSTEM on 01-03-2023 GFR/1.73 sq M.predicted among blacks MDRD (S/P/Bld) [Vol rate/Area] 123 ml/min/1.73sqm Invalid Interpretation Code AO Chemistry S Comment on above: Interpretive Data: GFR Population mean for , Non- Americans Ages 20-29 = 116 mL/min/1.73 sq.m. Ages 30-39 = 107 mL/min/1.73 sq.m. Ages 40-49 = 99 mL/min/1.73 sq.m. Ages 50-59 = 93 mL/min/1.73 sq.m. Ages 60-69 = 85 mL/min/1.73 sq.m. Ages 70+ = 75 mL/min/1.73 sq.m. Chronic Kidney Disease: Less than 60 mL/min/1.73 square meters End Stage Renal Disease: Less than 15 mL/min/1.73 square meters GFR/1.73 sq M.predicted among non-blacks MDRD (S/P/Bld) [Vol rate/Area] 101 ml/min/1.73sqm Invalid Interpretation Code AO Chemistry S Comment on above: Interpretive Data: GFR Population mean for , Non- Americans Ages 20-29 = 116 mL/min/1.73 sq.m. Ages 30-39 = 107 mL/min/1.73 sq.m. Ages 40-49 = 99 mL/min/1.73 sq.m. Ages 50-59 = 93 mL/min/1.73 sq.m. Ages 60-69 = 85 mL/min/1.73 sq.m. Ages 70+ = 75 mL/min/1.73 sq.m. Chronic Kidney Disease: Less than 60 mL/min/1.73 square meters End Stage Renal Disease: Less than 15 mL/min/1.73 square meters Urea nitrogen/Creatinine [Mass ratio] 7 ratio Normal 7 - 27 ratio AO ADM SS Laboratory - Chemistry and C hemistry - challengeOrdered By: SYSTEM SYSTEM on 01-03-2023 Albumin BCP dye [Mass/Vol] 2.4 G/dL Low 3.5 - 5.0 G/dL AO ADM SS ALT With P-5'-P [Catalytic activity/Vol] 200 U/L High 14 - 59 U/L AO ADM SS AST With P-5'-P [Catalytic activity/Vol] 82 U/L High 10 - 40 U/L AO ADM SS Bilirubin [Mass/Vol] 0.6 mg/dL Normal 0.2 - 1 .0 mg/dL AO ADM SS Comment on above: Interpretive Data: U se of this assay is not recommended for patients undergoing treatment with eltrombopag due to the potential for falsely elevated results. Bilirubin.direct [Mass/Vol] 0.3 mg/dL High 0.0 - 0.2 mg/dL AO Chemistry S Comment on above: Interpretive Data: U se of this assay is not recommended for patients undergoing treatment with eltrombopag due to the potential for falsely elevated results. Protein [Mass/Vol] 7.5 G/dL Normal 6.4 - 8.2 G/dL AO ADM SS CURon 12-31-2022 CUR Normal [facility] ([place]) .Urinalysis Microscopic (AO) on 12-28-2022 UA Bacteria 2+ /hpf Abnormal [facility] ([place]) Comment on above: Performed By: #### U A UAMICAO ####Sophia [address] [place], [place] [address] UA RBC None Seen Normal None Seen [facility] ([place]) Comment on above: Performed By: #### U A, UAMICAO ####Sophia [address] [place], [place] [address] UA Squam Epithelial 15-25 Abnormal None Seen [facility] ([place]) Comment on above: Performed By: #### U A UAMICAO ####Sophia [address] [place], [place] [address] UA WBC 5-10 Abnormal None Seen [facility] ([place]) Comment on above: Performed By: #### U A, UAMICAO ####Sophia [address] [place], [place] [address] FFNon 12-28-2022 Fibronectin Negative Normal Negative [facility] ([place]) Comment on above: Performed By: #### F FN ####[place] [address] UAon 12-28-2022 Color (U) Yellow Normal [facility] ([place]) Comment on above: Performed By: #### U A, UAMICAO ####Sophia [address] [place], [place] [address] Glucose (U) [Mass/Vol] Negative Normal Negative [facility] ([place]) Comment on above: Performed By: #### U A, UAMICAO ####Sophia [address] [place], [place] [address] Ketones Ql (U) 15 mg/dL Abnormal Negative [facility] ([place]) Comment on above: Performed By: #### U A, UAMICAO ####Sophia [address] [place], [place] [address] UA Appear Slightly Cloudy Abnormal Clear [facility] ([place]) Comment on above: Performed By: #### U A, UAMICAO ####Sophia [address] [place], [place] [address] UA Bili Small Abnormal Negative [facility] ([place]) Comment on above: Performed By: #### U A, UAMICAO ####Sophia [address] [place], [place] [address] UA Blood Negative Normal Negative [facility] ([place]) Comment on above: Performed By: #### U A, UAMICAO ####S[address]ia [address] [place], [place] [address] UA Leuk Est Small Abnormal Negative [facility] ([place]) Comment on above: Performed By: #### U A, UAMICAO ####S[address] [place], [place] [address] UA Nitrite Negative Normal Negative [facility] ([place]) Comment on above: Performed By: #### U A, UAMICAO ####Sophia [address] [place], [place] [address] UA pH 6.0 Normal 5.0 - 8.0 [facility] ([place]) Comment on above: Performed By: #### U A UAMICAO ####Sophia [address] [place], [place] [address] UA Protein 30 mg/dL Normal Negative [facility] ([place]) Comment on above: Performed By: #### U A UAMICAO ####Sophia [address] [place], [place] [address] UA Spec Grav 1.025 Normal 1.015-1.02 5 [facility] ([place]) Comment on above: Performed By: #### U Mario UAMICAO ####[address] [place], [place] [address] UA Specimen Type Clean Catch Normal [facility] ([place]) Comment on above: Performed By: #### U Mario UAMICAO ####S[address]ia [address] [place], [place] [address] UA Urobilinogen >=8.0 Abnormal 0.2-1.0 [facility] ([place]) Comment on above: Performed By: #### U Mario UAMICAO ####Sophiagary [address] [place], [place] [address] RPRon 12-17-2022 Reagin Ab RPR Ql (S) Non-Reactive Normal Non-Letty cti ve [facility] ([place]) Comment on above: Result Comment: The RPR test is a non-treponemal assay useful as an aidin the diagnosis of primary and secondary syphilis. Itconverts to positive generally within 2 weeks after theappearance of a lesion. This test is also useful formonitoring response to antibiotic therapy.A positive RPR screening test will be followed by theFTA ABS test.False positive RPR tests may occur in 1) patients withunderlying autoimmune disorders, 2) elderly patients,3) , and 4) other conditions with abnormal serumglobulins. Performed By: #### A WAYNE, CBC, GLU1P, ADIFF ####Sophia [address] [place], [place] [address]#### RPR ####[place] [address] .Auto Diffon 12-16-2022 Basophil, Absolute 0.0 10 3/mcL Normal 0.0-0.2 [facility] ([place]) Comment on above: Performed By: #### A WAYNE, CBC, GLU1P, ADIFF ####[place] [address]#### RPR ####[address] [address] Basophils/100 WBC (Bld) 0.4 % Normal 0.0-2.5 [facility] ([place]) Comment on above: Performed By: #### A WAYNE, CBC, GLU1P, ADIFF ####[place] [address]#### RPR ####[address] [address] Eosinophil, Absolute 0.0 10 3/mcL Normal 0.0-0.4 [facility] ([place]) Comment on above: Performed By: #### A WAYNE, CBC, GLU1P, ADIFF ####[place] [address]#### RPR ####[address] [address] Eosinophils/100 WBC (Bld) 0.4 % Normal 0.0-7.0 [facility] ([place]) Comment on above: Performed By: #### A WAYNE, CBC, GLU1P, ADIFF ####[place] [address]#### RPR ####[address] [address] Lymphocyte, Absolute 1.8 10 3/mcL Normal 0.8-3.9 [facility] ([place]) Comment on above: Performed By: #### A WAYNE, CBC, GLU1P, ADIFF ####[place] [address]#### RPR ####[address] [address] Lymphocytes/100 WBC (Bld) 19.3 % Normal 10.0-50.0 [facility] ([place]) Comment on above: Performed By: #### A WAYNE, CBC, GLU1P, ADIFF ####[address] [address]#### RPR ####[address] [address] Monocyte, Absolute 0.5 10 3/mcL Normal 0.2-1.0 [facility] ([place]) Comment on above: Performed By: #### A WAYNE, CBC, GLU1P, ADIFF ####[place] [address]#### RPR ####[address] [address] Monocytes/100 WBC (Bld) 5.2 % Normal 1.7-13.0 [facility] ([place]) Comment on above: Performed By: #### A WAYNE, CBC, GLU1P, ADIFF ####[place] [address]#### RPR ####[address] [address] Neutrophils/100 WBC (Bld) 74.7 % Normal 37.0-80.0 [facility] ([place]) Comment on above: Performed By: #### A WAYNE, CBC, GLU1P, ADIFF ####[place] [address]#### RPR ####[address] [address] .GFRon 12-16-2022 GFR 138 ml/min/1.73sqm Normal [facility] ([place]) Comment on above: Result Comment: GFR Population mean for , Non- Americans Ages 20-29 = 116 mL/min/1.73 sq.m. Ages 30-39 = 107 mL/min/1.73 sq.m. Ages 40-49 = 99 mL/min/1.73 sq.m. Ages 50-59 = 93 mL/min/1.73 sq.m. Ages 60-69 = 85 mL/min/1.73 sq.m. Ages 70+ = 75 mL/min/1.73 sq.m.Chronic Kidney Disease: Less than 60 mL/min/1.73 square metersEnd Stage Renal Disease: Less than 15 mL/min/1.73 square meters Performed By: #### Rio FR, CMP ####Sophia [address] [place], [place] [address] GFR Non- 114 ml/min/1.73sqm Normal [facility] ([place]) Comment on above: Result Comment: GFR Population mean for , Non- Americans Ages 20-29 = 116 mL/min/1.73 sq.m. Ages 30-39 = 107 mL/min/1.73 sq.m. Ages 40-49 = 99 mL/min/1.73 sq.m. Ages 50-59 = 93 mL/min/1.73 sq.m. Ages 60-69 = 85 mL/min/1.73 sq.m. Ages 70+ = 75 mL/min/1.73 sq.m.Chronic Kidney Disease: Less than 60 mL/min/1.73 square metersEnd Stage Renal Disease: Less than 15 mL/min/1.73 square meters Performed By: #### Rio FR, CMP ####Sophia [address] [place], [place] [address] .NEUABSon 12-16-2022 Neutrophil, Absolute 7.1 10 3/mcL High 2.9-6.2 [facility] ([place]) Comment on above: Performed By: #### A WAYNE, CBC, GLU1P, ADIFF ####[place] [address]#### RPR ####[place] [address] CBCon 12-16-2022 Erythrocyte distribution width (RBC) [Ratio] 15.3 % High 11.5-14.5 [facility] ([place]) Comment on above: Performed By: #### A WAYNE, CBC, GLU1P, ADIFF ####Sophia [address] [place] [address]#### RPR ####[place] [address] Hematocrit (Bld) [Volume fraction] 34.4 % Low 37.0-47.0 [facility] ([place]) Comment on above: Performed By: #### A WAYNE, CBC, GLU1P, ADIFF ####[place] [address]#### RPR ####[place] [address] Hgb 11.4 G/dL Low 12.0-16.0 [facility] ([place]) Comment on above: Performed By: #### A WAYNE, CBC, GLU1P, ADIFF ####[place] [address]#### RPR ####[place] [address] MCH (RBC) [Entitic mass] 25.0 pg Low 27.0-31.2 [facility] ([place]) Comment on above: Performed By: #### A WAYNE, CBC, GLU1P, ADIFF ####[place] [address]#### RPR ####[place] [address] MCHC 33.0 G/dL Normal 33.0-37.0 [facility] ([place]) Comment on above: Performed By: #### A WAYNE, CBC, GLU1P, ADIFF ####[place] [address]#### RPR ####[place] [address] MCV (RBC) [Entitic vol] 75.8 fL Low 80.0-94.0 [facility] ([place]) Comment on above: Performed By: #### A WAYNE, CBC, GLU1P, ADIFF ####[place] [address]#### RPR ####[place] [address] Platelet 142 10 3/mcL Normal 130-400 [facility] ([place]) Comment on above: Performed By: #### A WAYNE, CBC, GLU1P, ADIFF ####[place] [address]#### RPR ####[place] [address] Platelet mean volume (Bld) [Entitic vol] 9.1 fL Normal 7.4-10.4 [facility] ([place]) Comment on above: Performed By: #### A WAYNE, CBC, GLU1P, ADIFF ####[facility] [place] [address]#### RPR ####[place] [address] RBC 4.54 10 6/mcL Normal 4.20-5.40 [facility] ([place]) Comment on above: Performed By: #### A WAYNE, CBC, GLU1P, ADIFF ####[place] [address]#### RPR ####[place] [address] WBC 9.6 10 3/mcL Normal 4.6-10.8 [facility] [facility] ([place]) Comment on above: Performed By: #### A WAYNE, CBC, GLU1P, ADIFF ####[place] [address]#### RPR ####[place] [address] CMPon 12-16-2022 Albumin Level 2.6 G/dL Low 3.5-5.0 [facility] ([place]) Comment on above: Performed By: #### Rio ALBARRAN, CMP ####[address] [place] [id number] Albumin/Globulin [Mass ratio] 0.6 {ratio} Low 1.1-2.5 [facility] ([place]) Comment on above: Performed By: #### Rio ALBARRAN, CMP ####[address] [place], [place] [address] ALP [Catalytic activity/Vol] 197 U/L High 40-135 [facility] ([place]) Comment on above: Performed By: #### Rio ALBARRAN, CMP ####[address] [place] [id number] ALT [Catalytic activity/Vol] 21 U/L Normal 14-59 [facility] ([place]) Comment on above: Performed By: #### Rio ALBARRAN, CMP ####[address] [place], [place] [address] AST [Catalytic activity/Vol] 16 U/L Normal 10-40 [facility] ([place]) Comment on above: Performed By: #### Rio ALBARRAN, CMP ####[address] [place], [place] [address] Bili Total 0.3 mg/dL Normal 0.2-1.0 [facility] ([place]) Comment on above: Result Comment: Use of this assay is not recommended for patients undergoing treatment with eltrombopag due to the potential for falsely elevated results. Performed By: #### Rio ALBARRAN, CMP ####[address] [place], [place] [address] BUN/Creatinine Ratio 6 ratio Low 7-27 [facility] ([place]) Comment on above: Performed By: #### Rio ALBARRAN, CMP ####[address] [place], [place] [address] Calcium [Mass/Vol] 8.3 mg/dL Low 8.4-10.2 [facility] ([place]) Comment on above: Performed By: #### Rio ALBARRAN, CMP ####[address] [place], [place] [address] Chloride [Moles/Vol] 101 mmol/L Normal 98-107 [facility] ([place]) Comment on above: Performed By: #### Rio ALBARRAN, CMP ####[address] [place], [place] [address] CO2 [Moles/Vol] 26 mmol/L Normal 22-29 [facility] ([place]) Comment on above: Performed By: #### Rio ALBARRAN, CMP ####[address] [place], [place] [address] Creatinine [Mass/Vol] 0.65 mg/dL Normal 0.55-1.02 [facility] ([place]) Comment on above: Performed By: #### Rio ALBARRAN, CMP ####[address] [place], [place] [address] Electrolyte Balance 11.0 mEq/L Normal 4.0-15.0 [facility] ([place]) Comment on above: Performed By: #### Rio ALBARRAN, CMP ####[address] [place], [place] [address] Globulin 4.3 G/dL Normal [facility] ([place]) Comment on above: Performed By: #### Rio ALBARRAN, CMP ####[address] [place], [place] [address] Glucose [Mass/Vol] 166 mg/dL High 70-105 [facility] ([place]) Comment on above: Performed By: #### Rio ALBARRAN, CMP ####[address] [place], [place] [address] Potassium [Moles/Vol] 3.9 mmol/L Normal 3.5-5.1 [facility] ([place]) Comment on above: Performed By: #### Rio ALBARRAN, CMP ####[address]ophi[address] [place], [place] [address] Sodium [Moles/Vol] 138 mmol/L Normal 136-145 [facility] ([place]) Comment on above: Performed By: #### Rio ALBARRAN, CMP ####[address]ia [address] [place], [place] [address] Total Protein 6.9 G/dL Normal 6.4-8.2 [facility] ([place]) Comment on above: Performed By: #### Rio ALBARRAN, CMP ####[address]ophiagary [address] [place], [place] [address] Urea nitrogen [Mass/Vol] 4 mg/dL Low 7-18 [facility] ([place]) Comment on above: Performed By: #### G FR, CMP ####[address] [place], [place] [address] [id number] 12-16-2022 Glucose [Mass/Vol] 163 mg/dL High 70-140 [facility] ([place]) Comment on above: Performed By: #### A WAYNE, CBC, GLU1P, ADIFF ####[address] [place], [place] [address]#### RPR ####[address] [address] CURon 11-14-2022 CUR Normal [facility] ([place]) FFNon 11-14-2022 Fibronectin Negative Normal Negative [facility] ([place]) Comment on above: Performed By: #### F FN ####[place] [address] CTPCRon 11-13-2022 C. trachomatis Interp Normal See CT Interp N [facility] ([place]) Comment on above: Result Comment: C. t rachomatis DNA not detected. Specimen is presumptive negative forC. trachomatis.A negative result does not preclude C. trachomatis infection becauseresults depend on adequate specimen collection, absence of inhibitors,and sufficient DNA to be detected.See CT Interp N Performed By: #### N GPCR1, CTPCR ####[place] [address] C.trachomatis PCR Negative Normal Negative [facility] ([place]) Comment on above: Result Comment: Mole cular (PCR) assay performed on the [employer]00 system. Performed By: #### N GPCR1, CTPCR ####[place] [address] Chlam Source Vaginal Normal [facility] ([place]) Comment on above: Performed By: #### N GPCR1, CTPCR ####[place] [address] [id number] 11-13-2022 GC PCR Source Vaginal Normal [facility] ([place]) Comment on above: Performed By: #### N GPCR1, CTPCR ####[place] [address] N. gonorrhoeae (PCR) Negative Normal Negative [facility] ([place]) Comment on above: Result Comment: Mole cular (PCR) assay performed on the [employer] 4800 System. Performed By: #### N GPCR1, CTPCR ####[place] [address] N. gonorrhoeae Interp Normal See NG Interp N [facility] ([place]) Comment on above: Result Comment: N. g onorrhoeae DNA not detected. Specimen is presumptive negative forN. gonorrhoeae. A negative result does not preclude Neisseria gonorrhoeaeinfection because results depend on adequate specimen collection, absenceof inhibitors, and sufficient DNA to be detected.See NG Interp N Performed By: #### N GPCR1, CTPCR ####[place] [address] VAGDNAon 11-13-2022 VAGDNA Normal [facility] ([place]) LABORATORYOrdered By: Suman Rodríguez on 11-12-2022 C. trachomatis DNA JULIANNE+probe Ql (Unsp spec) Negative 2 (11/12/22 10:52 AM) Invalid Interpretation Code Negative Auto Viro/Sero SS Comment on above: Interpretive Data: M olecular (PCR) assay performed on the [employer] 4800 system. C. trachomatis DNA JULIANNE+probe Ql (Unsp spec) C. trachomatis DNA not detected. Specimen is presumptive negative forC. trachomatis.A negative result does not preclude C. trachomatis infection becauseresults depend on adequate specimen collection, absence of inhibitors,and sufficient DNA to be detected. Invalid Interpretation Code See CT Interp N AH Auto Viro/Sero SS N. gonorrhoeae DNA JULIANNE+probe Ql (Unsp spec) Negative 1 (11/12/22 10:52 AM) Invalid Interpretation Code Negative AH Auto Viro/Sero SS Comment on above: Interpretive Data: M olecular (PCR) assay performed on the [employer] 4800 System. N. gonorrhoeae DNA JULIANNE+probe Ql (Unsp spec) N. gonorrhoeae DNA not detected. Specimen is presumptive negative forN. gonorrhoeae. A negative result does not preclude Neisseria gonorrhoeaeinfection because results depend on adequate specimen collection, absenceof inhibitors, and sufficient DNA to be detected. Invalid Interpretation Code See NG Interp N AH Auto Viro/Sero SS Laboratory - Specimen inform ationOrdered By: Suman Rodríguez on 11-12-2022 Specimen source Nom (Unsp spec) Vaginal (11/12/22 10:52 AM) Invalid Interpretation Code AH Auto Viro/Sero SS .Urinalysis Microscopic (AO) on 11-11-2022 UA Bacteria Trace Abnormal [facility] ([place]) Comment on above: Performed By: #### U A, UAMICAO ####[address] [place], [place] [address] UA RBC 0-5 Abnormal None Seen [facility] ([place]) Comment on above: Performed By: #### U A, UAMICAO ####[address] [place], [place] [address] UA Squam Epithelial LOADED Abnormal None Seen [facility] ([place]) Comment on above: Performed By: #### U A, UAMICAO ####[address]ia [address] [place], [place] [address] UA WBC 0-5 Abnormal None Seen [facility] ([place]) Comment on above: Performed By: #### U A, UAMICAO ####[address] [place], [place] [address] LABORATORYOrdered By: Daren Albarran on 11-11-2022 Appearance (U) Slightly Cloudy *ABN* (11/11/22 8:43 PM) Invalid Interpretation Code Clear AO Auto Urine SS Bacteria LM.HPF (Urine sed) [#/Area] Trace /HPF Invalid Interpretation Code AO Auto Urine SS Bilirubin Ql (U) Negative (11/11/22 8:43 PM) Invalid Interpretation Code Negative AO Auto Urine SS Color (U) Yellow (11/11/22 8:43 PM) Invalid Interpretation Code AO Auto Urine SS Glucose Test strip (U) [Mass/Vol] Negative Invalid Interpretation Code Negative AO Auto Urine SS Hemoglobin Auto test strip (U) [Mass/Vol] Negative (11/11/22 8:43 PM) Invalid Interpretation Code Negative AO Auto Urine SS Ketones Ql (U) Negative Invalid Interpretation Code Negative AO Auto Urine SS UA Leuk Est Negative (11/11/22 8:43 PM) Invalid Interpretation Code Negative AO Auto Urine SS UA Nitrite Negative (11/11/22 8:43 PM) Invalid Interpretation Code Negative AO Auto Urine SS UA pH 6.5 (11/11/22 8:43 PM) Invalid Interpretation Code 5.0 - 8.0 AO Auto Urine SS UA Protein Negative Invalid Interpretation Code Negative AO Auto Urine SS UA RBC 0-5 /HPF Invalid Interpretation Code None Seen AO Auto Urine SS UA Spec Grav 1.020 (11/11/22 8:43 PM) Invalid Interpretation Code 1.015-1.02 5 AO Auto Urine SS UA Specimen Type Clean Catch (11/11/22 8:43 PM) Invalid Interpretation Code AO Auto Urine SS UA Squam Epithelial LOADED /HPF Invalid Interpretation Code None Seen AO Auto Urine SS UA Urobilinogen 0.2 E.U./dL Invalid Interpretation Code 0.2-1.0 AO Auto Urine SS WBC LM.HPF (Urine sed) [#/Area] 0-5 /HPF Invalid Interpretation Code None Seen AO Auto Urine SS UAon 11-11-2022 Color (U) Yellow Normal [facility] ([place]) Comment on above: Performed By: #### U A, UAMICAO ####[address] [place], [place] [address] Glucose (U) [Mass/Vol] Negative Normal Negative [facility] ([place]) Comment on above: Performed By: #### U A, UAMICAO ####[address] [place], [place] [address] Ketones Ql (U) Negative Normal Negative [facility] ([place]) Comment on above: Performed By: #### U A, UAMICAO ####[address] [place], [place] [address] UA Appear Slightly Cloudy Abnormal Clear [facility] ([place]) Comment on above: Performed By: #### U A, UAMICAO ####[address] [place], [place] [address] UA Blood Negative Normal Negative [facility] ([place]) Comment on above: Performed By: #### U A, UAMICAO ####[address] [place], [place] [address] UA Leuk Est Negative Normal Negative [facility] ([place]) Comment on above: Performed By: #### U A, UAMICAO ####[address] [place], [place] [address] UA Nitrite Negative Normal Negative [facility] ([place]) Comment on above: Performed By: #### U A, UAMICAO ####[address] [place], [place] [address] UA pH 6.5 Normal 5.0 - 8.0 [facility] ([place]) Comment on above: Performed By: #### U A, UAMICAO ####[address] [place], [place] [address] UA Protein Negative Normal Negative [facility] ([place]) Comment on above: Performed By: #### U A, UAMICAO ####[address] [place], [place] [address] UA Spec Grav 1.020 Normal 1.015-1.02 5 [facility] ([place]) Comment on above: Performed By: #### U A, UAMICAO ####[address] [place], [place] [address] UA Specimen Type Clean Catch Normal [facility] ([place]) Comment on above: Performed By: #### U A, UAMICAO ####[address] [place], [place] [address] UA Urobilinogen 0.2 E.U./dL Normal 0.2-1.0 [facility] ([place]) Comment on above: Performed By: #### U A, UAMICAO ####[address] [place], [place] [address] Urobilinogen (U) [Mass/Vol] Negative Normal Negative [facility] ([place]) Comment on above: Performed By: #### U A, UAMICAO ####[address] [place], [place] [address] VAGDNAon 11-11-2022 VAGDNA Normal [facility] ([place]) No Panel InformationOrdered By: Tian Apodaca on 11-10-2022 Affirm Pathogens DNA Direct Probe Gardnerella vaginalis DNA Probe Negative Trichomonas vaginalis DNA Probe Negative Renuka species DNA Probe Negative [facility] .Auto Diffon 10-29-2022 Basophil, Absolute 0.1 10 3/mcL Normal 0.0-0.2 [facility] ([place]) Comment on above: Performed By: #### C MP, ADIFF, CBC, URIC, ANEU, GFR ####[address] [place], [place] [address]#### GGT ####[address] [address] Basophils/100 WBC (Bld) 0.7 % Normal 0.0-2.5 [facility] ([place]) Comment on above: Performed By: #### C MP, ADIFF, CBC, URIC, ANEU, GFR ####[place] [address]#### GGT ####[address] [address] Eosinophil, Absolute 0.1 10 3/mcL Normal 0.0-0.4 [facility] ([place]) Comment on above: Performed By: #### C MP, ADIFF, CBC, URIC, ANEU, GFR ####[place] [address]#### GGT ####[address] [address] Eosinophils/100 WBC (Bld) 0.5 % Normal 0.0-7.0 [facility] ([place]) Comment on above: Performed By: #### C MP, ADIFF, CBC, URIC, ANEU, GFR ####[place] [address]#### GGT ####[address] [address] Lymphocyte, Absolute 2.3 10 3/mcL Normal 0.8-3.9 [facility] ([place]) Comment on above: Performed By: #### C MP, ADIFF, CBC, URIC, ANEU, GFR ####[place] [address]#### GGT ####[address] [address] Lymphocytes/100 WBC (Bld) 23.1 % Normal 10.0-50.0 [facility] ([place]) Comment on above: Performed By: #### C MP, ADIFF, CBC, URIC, ANEU, GFR ####[place] [address]#### GGT ####[address] [address] Monocyte, Absolute 0.7 10 3/mcL Normal 0.2-1.0 [facility] ([place]) Comment on above: Performed By: #### C MP, ADIFF, CBC, URIC, ANEU, GFR ####[place] [address] [place] [address]#### GGT ####[address] [address] Monocytes/100 WBC (Bld) 7.0 % Normal 1.7-13.0 [facility] ([place]) Comment on above: Performed By: #### C MP, ADIFF, CBC, URIC, ANEU, GFR ####[place] [address]#### GGT ####[address] [address] Neutrophils/100 WBC (Bld) 68.7 % Normal 37.0-80.0 [facility] ([place]) Comment on above: Performed By: #### C MP, ADIFF, CBC, URIC, ANEU, GFR ####[place] [address]#### GGT ####[address] [address] .GFRon 10-29-2022 GFR 135 ml/min/1.73sqm Normal [facility] ([place]) Comment on above: Result Comment: GFR Population mean for , Non- Americans Ages 20-29 = 116 mL/min/1.73 sq.m. Ages 30-39 = 107 mL/min/1.73 sq.m. Ages 40-49 = 99 mL/min/1.73 sq.m. Ages 50-59 = 93 mL/min/1.73 sq.m. Ages 60-69 = 85 mL/min/1.73 sq.m. Ages 70+ = 75 mL/min/1.73 sq.m.Chronic Kidney Disease: Less than 60 mL/min/1.73 square metersEnd Stage Renal Disease: Less than 15 mL/min/1.73 square meters Performed By: #### C MP, ADIFF, CBC, URIC, ANEU, GFR ####[place] [id number]#### GGT ####[place] [address] GFR Non- 111 ml/min/1.73sqm Normal [facility] ([place]) Comment on above: Result Comment: GFR Population mean for , Non- Americans Ages 20-29 = 116 mL/min/1.73 sq.m. Ages 30-39 = 107 mL/min/1.73 sq.m. Ages 40-49 = 99 mL/min/1.73 sq.m. Ages 50-59 = 93 mL/min/1.73 sq.m. Ages 60-69 = 85 mL/min/1.73 sq.m. Ages 70+ = 75 mL/min/1.73 sq.m.Chronic Kidney Disease: Less than 60 mL/min/1.73 square metersEnd Stage Renal Disease: Less than 15 mL/min/1.73 square meters Performed By: #### C MP, ADIFF, CBC, URIC, ANEU, GFR ####[place] [address]#### GGT ####[place] [address] .NEUABSon 10-29-2022 Neutrophil, Absolute 6.9 10 3/mcL High 2.9-6.2 [facility] ([place]) Comment on above: Performed By: #### C MP, ADIFF, CBC, URIC, ANEU, GFR ####[place] [address]#### GGT ####[place] [address] CBCon 10-29-2022 Erythrocyte distribution width (RBC) [Ratio] 15.4 % High 11.5-14.5 [facility] ([place]) Comment on above: Performed By: #### C MP, ADIFF, CBC, URIC, ANEU, GFR ####[place] [address]#### GGT ####[place] [address] Hematocrit (Bld) [Volume fraction] 34.8 % Low 37.0-47.0 [facility] ([place]) Comment on above: Performed By: #### C MP, ADIFF, CBC, URIC, ANEU, GFR ####[place] [address]#### GGT ####[place] [address] Hgb 11.7 G/dL Low 12.0-16.0 [facility] ([place]) Comment on above: Performed By: #### C MP, ADIFF, CBC, URIC, ANEU, GFR ####[place] [address]#### GGT ####[place] [address] MCH (RBC) [Entitic mass] 24.9 pg Low 27.0-31.2 [facility] ([place]) Comment on above: Performed By: #### C MP, ADIFF, CBC, URIC, ANEU, GFR ####[place] [address]#### GGT ####[place] [address] MCHC 33.5 G/dL Normal 33.0-37.0 [facility] ([place]) Comment on above: Performed By: #### C MP, ADIFF, CBC, URIC, ANEU, GFR ####[place] [address]#### GGT ####[place] [address] MCV (RBC) [Entitic vol] 74.3 fL Low 80.0-94.0 [facility] ([place]) Comment on above: Performed By: #### C MP, ADIFF, CBC, URIC, ANEU, GFR ####[place] [address]#### GGT ####[place] [address] Platelet 149 10 3/mcL Normal 130-400 [facility] ([place]) Comment on above: Performed By: #### C MP, ADIFF, CBC, URIC, ANEU, GFR ####[place] [address]#### GGT ####[place] [address] Platelet mean volume (Bld) [Entitic vol] 9.6 fL Normal 7.4-10.4 [facility] ([place]) Comment on above: Performed By: #### C MP, ADIFF, CBC, URIC, ANEU, GFR ####[place] [address]#### GGT ####[place] [address] RBC 4.68 10 6/mcL Normal 4.20-5.40 [facility] ([place]) Comment on above: Performed By: #### C MP, ADIFF, CBC, URIC, ANEU, GFR ####[place] [address]#### GGT ####[place] [address] WBC 10.0 10 3/mcL Normal 4.6-10.8 [facility] ([place]) Comment on above: Performed By: #### C MP, ADIFF, CBC, URIC, ANEU, GFR ####[place] [address]#### GGT ####[place] [address] CMPon 10-29-2022 Albumin Level 2.8 G/dL Low 3.5-5.0 [facility] ([place]) Comment on above: Performed By: #### C MP, ADIFF, CBC, URIC, ANEU, GFR ####[place] [address]#### GGT ####[place] [address] Albumin/Globulin [Mass ratio] 0.7 {ratio} Low 1.1-2.5 [facility] ([place]) Comment on above: Performed By: #### C MP, ADIFF, CBC, URIC, ANEU, GFR ####[place] [address]#### GGT ####[place] [address] ALP [Catalytic activity/Vol] 147 U/L High 40-135 [facility] ([place]) Comment on above: Performed By: #### C MP, ADIFF, CBC, URIC, ANEU, GFR ####[place] [address]#### GGT ####[place] [address] ALT [Catalytic activity/Vol] 27 U/L Normal 14-59 [facility] ([place]) Comment on above: Performed By: #### C MP, ADIFF, CBC, URIC, ANEU, GFR ####[place] [address]#### GGT ####[place] [address] AST [Catalytic activity/Vol] 17 U/L Normal 10-40 [facility] ([place]) Comment on above: Performed By: #### C MP, ADIFF, CBC, URIC, ANEU, GFR ####[place] [address]#### GGT ####[place] [address] Bili Total 0.3 mg/dL Normal 0.2-1.0 [facility] ([place]) Comment on above: Result Comment: Use of this assay is not recommended for patients undergoing treatment with eltrombopag due to the potential for falsely elevated results. Performed By: #### C MP, ADIFF, CBC, URIC, ANEU, GFR ####[place] [address]#### GGT ####[place] [address] BUN/Creatinine Ratio 7 ratio Normal 7-27 [facility] ([place]) Comment on above: Performed By: #### C MP, ADIFF, CBC, URIC, ANEU, GFR ####[place] [address]#### GGT ####[place] [address] Calcium [Mass/Vol] 8.6 mg/dL Normal 8.4-10.2 [facility] ([place]) Comment on above: Performed By: #### C MP, ADIFF, CBC, URIC, ANEU, GFR ####[place] [address]#### GGT ####[place] [address] Chloride [Moles/Vol] 104 mmol/L Normal 98-107 [facility] ([place]) Comment on above: Performed By: #### C MP, ADIFF, CBC, URIC, ANEU, GFR ####[place] [address]#### GGT ####[place] [address] CO2 [Moles/Vol] 24 mmol/L Normal 22-29 [facility] ([place]) Comment on above: Performed By: #### C MP, ADIFF, CBC, URIC, ANEU, GFR ####[place] [address]#### GGT ####[place] [address] Creatinine [Mass/Vol] 0.67 mg/dL Normal 0.55-1.02 [facility] ([place]) Comment on above: Performed By: #### C MP, ADIFF, CBC, URIC, ANEU, GFR ####[place] [address]#### GGT ####[place] [address] Electrolyte Balance 12.0 mEq/L Normal 4.0-15.0 [facility] ([place]) Comment on above: Performed By: #### C MP, ADIFF, CBC, URIC, ANEU, GFR ####[place] [address]#### GGT ####[place] [address] Globulin 4.3 G/dL Normal [facility] ([place]) Comment on above: Performed By: #### C MP, ADIFF, CBC, URIC, ANEU, GFR ####[address] [address]#### GGT ####[address] [address] Glucose [Mass/Vol] 86 mg/dL Normal 70-105 [facility] ([place]) Comment on above: Performed By: #### C MP, ADIFF, CBC, URIC, ANEU, GFR ####[place] [address]#### GGT ####[address] [address] Potassium [Moles/Vol] 4.5 mmol/L Normal 3.5-5.1 [facility] ([place]) Comment on above: Performed By: #### C MP, ADIFF, CBC, URIC, ANEU, GFR ####[place] [address]#### GGT ####[address] [address] Sodium [Moles/Vol] 140 mmol/L Normal 136-145 [facility] ([place]) Comment on above: Performed By: #### C MP, ADIFF, CBC, URIC, ANEU, GFR ####[place] [address]#### GGT ####[address] [address] Total Protein 7.1 G/dL Normal 6.4-8.2 [facility] ([place]) Comment on above: Performed By: #### C MP, ADIFF, CBC, URIC, ANEU, GFR ####[place] [address]#### GGT ####[address] [address] Urea nitrogen [Mass/Vol] 5 mg/dL Low 7-18 [facility] ([place]) Comment on above: Performed By: #### C MP, ADIFF, CBC, URIC, ANEU, GFR ####Sophia [address] [place], [place] [address]#### GGT ####[place] [id number] [place] [address] GGTon 10-29-2022 Gamma GT 26 U/L Normal 5-55 [facility] ([place]) Comment on above: Performed By: #### C MP, ADIFF, CBC, URIC, ANEU, GFR ####[facility] [place], [place] [address]#### GGT ####[facility] [place] [address] LABORATORYOrdered By: SYSTEM SYSTEM on 10-29-2022 Albumin BCP dye [Mass/Vol] 2.8 G/dL Invalid Interpretation Code 3.5 - 5.0 G/dL AO ADM SS Albumin/Globulin [Mass ratio] 0.7 {ratio} Invalid Interpretation Code 1.1 - 2.5 ratio AO ADM SS ALP [Catalytic activity/Vol] 147 U/L Invalid Interpretation Code 40 - 135 U/L AO ADM SS ALT With P-5'-P [Catalytic activity/Vol] 27 U/L Invalid Interpretation Code 14 - 59 U/L AO ADM SS AST With P-5'-P [Catalytic activity/Vol] 17 U/L Invalid Interpretation Code 10 - 40 U/L AO ADM SS Basophil, Absolute 0.1 103/mcL Invalid Interpretation Code 0.0 - 0.2 10^3/mcL AO Workflow SS Basophils/100 WBC (Bld) 0.7 % Invalid Interpretation Code 0.0 - 2.5 % AO Workflow SS Bilirubin [Mass/Vol] 0.3 mg/dL Invalid Interpretation Code 0.2 - 1.0 mg/dL AO ADM SS Comment on above: Interpretive Data: U se of this assay is not recommended for patients undergoing treatment with eltrombopag due to the potential for falsely elevated results. Calcium [Mass/Vol] 8.6 mg/dL Invalid Interpretation Code 8.4 - 10.2 mg/dL AO ADM SS Chloride [Moles/Vol] 104 mmol/L Invalid Interpretation Code 98 - 107 mmol/L AO ADM SS CO2 [Moles/Vol] 24 mmol/L Invalid Interpretation Code 22 - 29 mmol/L AO ADM SS Creatinine [Mass/Vol] 0.67 mg/dL Invalid Interpretation Code 0.55 - 1.02 mg/dL AO ADM SS Electrolyte Balance 12.0 mEq/L Invalid Interpretation Code 4.0 - 15.0 mEq/L AO ADM SS Eosinophil, Absolute 0.1 103/mcL Invalid Interpretation Code 0.0 - 0.4 10^3/mcL AO Workflow SS Eosinophils/100 WBC (Bld) 0.5 % Invalid Interpretation Code 0.0 - 7.0 % AO Workflow SS Erythrocyte distribution width (RBC) [Ratio] 15.4 % Invalid Interpretation Code 11.5 - 14.5 % AO Workflow SS Gamma glutamyl transferase [Catalytic activity/Vol] 26 U/L Invalid Interpretation Code 5 - 55 U/L AH ADM SS GFR/1.73 sq M.predicted among blacks MDRD (S/P/Bld) [Vol rate/Area] 135 ml/min/1.73sqm Invalid Interpretation Code AO Chemistry S Comment on above: Interpretive Data: GFR Population mean for , Non- Americans Ages 20-29 = 116 mL/min/1.73 sq.m. Ages 30-39 = 107 mL/min/1.73 sq.m. Ages 40-49 = 99 mL/min/1.73 sq.m. Ages 50-59 = 93 mL/min/1.73 sq.m. Ages 60-69 = 85 mL/min/1.73 sq.m. Ages 70+ = 75 mL/min/1.73 sq.m. Chronic Kidney Disease: Less than 60 mL/min/1.73 square meters End Stage Renal Disease: Less than 15 mL/min/1.73 square meters GFR/1.73 sq M.predicted among non-blacks MDRD (S/P/Bld) [Vol rate/Area] 111 ml/min/1.73sqm Invalid Interpretation Code AO Chemistry S Comment on above: Interpretive Data: GFR Population mean for , Non- Americans Ages 20-29 = 116 mL/min/1.73 sq.m. Ages 30-39 = 107 mL/min/1.73 sq.m. Ages 40-49 = 99 mL/min/1.73 sq.m. Ages 50-59 = 93 mL/min/1.73 sq.m. Ages 60-69 = 85 mL/min/1.73 sq.m. Ages 70+ = 75 mL/min/1.73 sq.m. Chronic Kidney Disease: Less than 60 mL/min/1.73 square meters End Stage Renal Disease: Less than 15 mL/min/1.73 square meters Globulin 4.3 G/dL Invalid Interpretation Code AO ADM SS Glucose [Mass/Vol] 86 mg/dL Invalid Interpretation Code 70 - 105 mg/dL AO ADM SS Hematocrit (Bld) [Volume fraction] 34.8 % Invalid Interpretation Code 37.0 - 47.0 % AO Workflow SS Hemoglobin (Bld) [Mass/Vol] 11.7 G/dL Invalid Interpretation Code 12.0 - 16.0 G/dL AO Workflow SS Lymphocyte, Absolute 2.3 103/mcL Invalid Interpretation Code 0.8 - 3.9 10^3/mcL AO Workflow SS Lymphocytes/100 WBC (Bld) 23.1 % Invalid Interpretation Code 10.0 - 50.0 % AO Workflow SS MCH (RBC) [Entitic mass] 24.9 pg Invalid Interpretation Code 27.0 - 31.2 pg AO Workflow SS MCHC 33.5 G/dL Invalid Interpretation Code 33.0 - 37.0 G/dL AO Workflow SS MCV (RBC) [Entitic vol] 74.3 fL Invalid Interpretation Code 80.0 - 94.0 fL AO Workflow SS Monocyte, Absolute 0.7 103/mcL Invalid Interpretation Code 0.2 - 1.0 10^3/mcL AO Workflow SS Monocytes/100 WBC (Bld) 7.0 % Invalid Interpretation Code 1.7 - 13.0 % AO Workflow SS Neutrophil, Absolute 6.9 103/mcL Invalid Interpretation Code 2.9 - 6.2 10^3/mcL AO Workflow SS Neutrophils/100 WBC (Bld) 68.7 % Invalid Interpretation Code 37.0 - 80.0 % AO Workflow SS Platelet mean volume (Bld) [Entitic vol] 9.6 fL Invalid Interpretation Code 7.4 - 10.4 fL AO Workflow SS Platelets (Bld) [#/Vol] 149 103/mcL Invalid Interpretation Code 130 - 400 10^3/mcL AO Workflow SS Potassium [Moles/Vol] 4.5 mmol/L Invalid Interpretation Code 3.5 - 5.1 mmol/L AO ADM SS Protein [Mass/Vol] 7.1 G/dL Invalid Interpretation Code 6.4 - 8.2 G/dL AO ADM SS RBC (Bld) [#/Vol] 4.68 106/mcL Invalid Interpretation Code 4.20 - 5.40 10^6/mcL AO Workflow SS Sodium [Moles/Vol] 140 mmol/L Invalid Interpretation Code 136 - 145 mmol/L AO ADM SS Urea nitrogen [Mass/Vol] 5 mg/dL Invalid Interpretation Code 7 - 18 mg/dL AO ADM SS Urea nitrogen/Creatinine [Mass ratio] 7 ratio Invalid Interpretation Code 7 - 27 ratio AO ADM SS Uric Acid Lvl 4.3 mg/dL Invalid Interpretation Code 2.6 - 6.2 mg/dL AO ADM SS WBC (Bld) [#/Vol] 10.0 103/mcL Invalid Interpretation Code 4.6 - 10.8 10^3/mcL AO Workflow SS URICon 10-29-2022 Uric Acid Lvl 4.3 mg/dL Normal 2.6-6.2 [facility] ([place]) Comment on above: Performed By: #### C MP, ADIFF, CBC, URIC, ANEU, GFR ####[address] [place], [place] [address]#### GGT ####[place] [address] US ABDOMEN LIMITEDon 023 US ABDOMEN LIMITED Normal [facility] ([place]) VARISon 10-10-[address] Positive Normal [facility] ([place]) Comment on above: Result Comment: INTE RPRETATION OF VARICELLA IMMUNE STATUS IgG BY EIA: Negative: No detectable VZV IgG antibody. Positive: VZV IgG antibody Detected. If clinically indicated, order Varicella IgM to rule out recent infection. Equivocal: Equivocal for antibodies to VZV. Suggest repeat testing in 10-14 days. Performed By: #### A DIFF, CBC, ANEU, TSH ####[place] [address]#### ANSG, RPR, RUBIS, VARIS, HBSAG, HCV1, ABOG ####[id number] [place], [place] [address] RPRon 10-08-2022 Reagin Ab RPR Ql (S) Non-Reactive Normal Non-Letty cti ve [facility] ([place]) Comment on above: Result Comment: The RPR test is a non-treponemal assay useful as an aidin the diagnosis of primary and secondary syphilis. Itconverts to positive generally within 2 weeks after theappearance of a lesion. This test is also useful formonitoring response to antibiotic therapy.A positive RPR screening test will be followed by theFTA ABS test.False positive RPR tests may occur in 1) patients withunderlying autoimmune disorders, 2) elderly patients,3) , and 4) other conditions with abnormal serumglobulins. Performed By: #### A DIFF, CBC, ANEU, TSH ####[place] [address]#### ANSG, RPR, RUBIS, VARIS, HBSAG, HCV1, ABOG ####[address] [address] RUBISon 10-08-[address] Positive Normal Positive [facility] ([place]) Comment on above: Result Comment: This immune status assay detects IgM and/or IgG antibody to Rubella. Interpret results in conjunction with clinical history. POS: Antibody detected; exposure at undetermined recent or distant time. If clinically indicated, order Rubella IGM to rule out recent infection. NEG: No antibody detected. Performed By: #### A DIFF, CBC, ANEU, TSH ####[place] [address]#### ANSG, RPR, RUBIS, VARIS, HBSAG, HCV1, ABOG ####[address] [address] .Auto Diffon 10-07-2022 Basophil, Absolute 0.0 10 3/mcL Normal 0.0-0.2 [facility] ([place]) Comment on above: Performed By: #### A DIFF, CBC, ANEU, TSH ####[place] [address]#### ANSG, RPR, RUBIS, VARIS, HBSAG, HCV1, ABOG ####[place] [address] [place], [place] [address] Basophils/100 WBC (Bld) 0.4 % Normal 0.0-2.5 [facility] ([place]) Comment on above: Performed By: #### A DIFF, CBC, ANEU, TSH ####[place] [address]#### ANSG, RPR, RUBIS, VARIS, HBSAG, HCV1, ABOG ####[address] [place], [place] [address] Eosinophil, Absolute 0.1 10 3/mcL Normal 0.0-0.4 [facility] ([place]) Comment on above: Performed By: #### A DIFF, CBC, ANEU, TSH ####[place] [address]#### ANSG, RPR, RUBIS, VARIS, HBSAG, HCV1, ABOG ####[facility] [place] [place], [place] [address] Eosinophils/100 WBC (Bld) 0.6 % Normal 0.0-7.0 [facility] ([place]) Comment on above: Performed By: #### A DIFF, CBC, ANEU, TSH ####[place] [address]#### ANSG, RPR, RUBIS, VARIS, HBSAG, HCV1, ABOG ####[facility] [place], [place] [address] Lymphocyte, Absolute 1.8 10 3/mcL Normal 0.8-3.9 [facility] ([place]) Comment on above: Performed By: #### A DIFF, CBC, ANEU, TSH ####[place] [address]#### ANSG, RPR, RUBIS, VARIS, HBSAG, HCV1, ABOG ####[facility] [place] [place], [place] [address] Lymphocytes/100 WBC (Bld) 19.0 % Normal 10.0-50.0 [facility] ([place]) Comment on above: Performed By: #### A DIFF, CBC, ANEU, TSH ####[place] [address]#### ANSG, RPR, RUBIS, VARIS, HBSAG, HCV1, ABOG ####[facility] [place], [place] [address] Monocyte, Absolute 0.5 10 3/mcL Normal 0.2-1.0 [facility] ([place]) Comment on above: Performed By: #### A DIFF, CBC, ANEU, TSH ####[place] [address]#### ANSG, RPR, RUBIS, VARIS, HBSAG, HCV1, ABOG ####[place] [id number] [place], [place] [address] Monocytes/100 WBC (Bld) 5.5 % Normal 1.7-13.0 [facility] ([place]) Comment on above: Performed By: #### A DIFF, CBC, ANEU, TSH ####[place] [address]#### ANSG, RPR, RUBIS, VARIS, HBSAG, HCV1, ABOG ####[place] [address] [place], [place] [address] Neutrophils/100 WBC (Bld) 74.5 % Normal 37.0-80.0 [facility] ([place]) Comment on above: Performed By: #### A DIFF, CBC, ANEU, TSH ####[place] [address]#### ANSG, RPR, RUBIS, VARIS, HBSAG, HCV1, ABOG ####[place] [id number] [place], [place] [address] .NEUABSon 10-07-2022 Neutrophil, Absolute 6.9 10 3/mcL High 2.9-6.2 [facility] ([place]) Comment on above: Performed By: #### A DIFF, CBC, ANEU, TSH ####[place] [address]#### ANSG, RPR, RUBIS, VARIS, HBSAG, HCV1, ABOG ####[place] [id number] [place], [place] [address] CBCon 10-07-2022 Erythrocyte distribution width (RBC) [Ratio] 15.0 % High 11.5-14.5 [facility] ([place]) Comment on above: Performed By: #### A DIFF, CBC, ANEU, TSH ####[place] [address]#### ANSG, RPR, RUBIS, VARIS, HBSAG, HCV1, ABOG ####[facility] [place] [address] Hematocrit (Bld) [Volume fraction] 35.2 % Low 37.0-47.0 [facility] ([place]) Comment on above: Performed By: #### A DIFF, CBC, ANEU, TSH ####[place] [address]#### ANSG, RPR, RUBIS, VARIS, HBSAG, HCV1, ABOG ####[place] [phone] Hgb 11.7 G/dL Low 12.0-16.0 [facility] ([place]) Comment on above: Performed By: #### A DIFF, CBC, ANEU, TSH ####[place] [address]#### ANSG, RPR, RUBIS, VARIS, HBSAG, HCV1, ABOG ####[place] [phone] MCH (RBC) [Entitic mass] 24.5 pg Low 27.0-31.2 [facility] ([place]) Comment on above: Performed By: #### A DIFF, CBC, ANEU, TSH ####[place] [address]#### ANSG, RPR, RUBIS, VARIS, HBSAG, HCV1, ABOG ####[facility] [place], [place] [id number] MCHC 33.1 G/dL Normal 33.0-37.0 [facility] ([place]) Comment on above: Performed By: #### A DIFF, CBC, ANEU, TSH ####[place] [address]#### ANSG, RPR, RUBIS, VARIS, HBSAG, HCV1, ABOG ####[facility] [place], [place] [address] MCV (RBC) [Entitic vol] 74.0 fL Low 80.0-94.0 [facility] ([place]) Comment on above: Performed By: #### A DIFF, CBC, ANEU, TSH ####[place] [address]#### ANSG, RPR, RUBIS, VARIS, HBSAG, HCV1, ABOG ####[facility] [place] [place], [place] [address] Platelet 140 10 3/mcL Normal 130-400 [facility] ([place]) Comment on above: Performed By: #### A DIFF, CBC, ANEU, TSH ####[place] [address]#### ANSG, RPR, RUBIS, VARIS, HBSAG, HCV1, ABOG ####[facility] [place], [place] [address] Platelet mean volume (Bld) [Entitic vol] 9.7 fL Normal 7.4-10.4 [facility] ([place]) Comment on above: Performed By: #### A DIFF, CBC, ANEU, TSH ####[place] [address]#### ANSG, RPR, RUBIS, VARIS, HBSAG, HCV1, ABOG ####[facility] [place] [phone] RBC 4.76 10 6/mcL Normal 4.20-5.40 [facility] ([place]) Comment on above: Performed By: #### A DIFF, CBC, ANEU, TSH ####[place] [address]#### ANSG, RPR, RUBIS, VARIS, HBSAG, HCV1, ABOG ####[facility] [place] [phone] WBC 9.2 10 3/mcL Normal 4.6-10.8 [facility] ([place]) Comment on above: Performed By: #### A DIFF, CBC, ANEU, TSH ####[place] [address]#### ANSG, RPR, RUBIS, VARIS, HBSAG, HCV1, ABOG ####[place] [id number] [place], [place] [address] Gel ABOon 10-07-2022 ABO/Rh Interp Positive Invalid Interpretation Code [facility] ([place]) Comment on above: Performed By: #### A DIFF, CBC, ANEU, TSH ####[place] [address]#### ANSG, RPR, RUBIS, VARIS, HBSAG, HCV1, ABOG ####[place] [address] Gel ABSon 10-07-2022 Antibody Screen Gel Negative Normal [facility] ([place]) Comment on above: Performed By: #### A DIFF, CBC, ANEU, TSH ####[place] [address]#### ANSG, RPR, RUBIS, VARIS, HBSAG, HCV1, ABOG ####[place] [address] HBSAGon 10-07-2022 Hep B Surf Ag Non-Reactive Normal Non-Reacti ve [facility] ([place]) Comment on above: Performed By: #### A DIFF, CBC, ANEU, TSH ####[place] [address]#### ANSG, RPR, RUBIS, VARIS, HBSAG, HCV1, ABOG ####[place] [id number] [place], [place] [phone] HCVon 10-07-2022 Hep C Ab Non-Reactive Normal Non-Reacti [facility] ([place]) Comment on above: Performed By: #### A DIFF, CBC, ANEU, TSH ####[place] [address]#### ANSG, RPR, RUBIS, VARIS, HBSAG, HCV1, ABOG ####[facility] [place], [place] [address] Hep C Ab Int Normal [facility] ([place]) Comment on above: Result Comment: Nonr eactive: Samples with a value < 0.80 are considered nonreactive (negative) for antibodies to HCV.A negative test result does not exclude the possibility of exposure to or infection with HCV. HCV antibodies may be undetectable in some stages of the infection and in some clinical conditions.See Interp Performed By: #### A DIFF, CBC, ANEU, TSH ####[place] [address]#### ANSG, RPR, RUBIS, VARIS, HBSAG, HCV1, ABOG ####[facility] [place], [place] [address] LABORATORYOrdered By: Madeline Amador on 10-07-2022 ABO/Rh Interp Positive Invalid Interpretation Code AO BB SS Antibody Screen Gel Negative ABSC (10/07/22 10:24 AM) Invalid Interpretation Code AO BB SS LABORATORYOrdered By: SYSTEM SYSTEM on 10-07-2022 Basophil, Absolute 0.0 103/mcL Invalid Interpretation Code 0.0 - 0.2 10^3/mcL AO Workflow SS Basophils/100 WBC (Bld) 0.4 % Invalid Interpretation Code 0.0 - 2.5 % AO Workflow SS Eosinophil, Absolute 0.1 103/mcL Invalid Interpretation Code 0.0 - 0.4 10^3/mcL AO Workflow SS Eosinophils/100 WBC (Bld) 0.6 % Invalid Interpretation Code 0.0 - 7.0 % AO Workflow SS Erythrocyte distribution width (RBC) [Ratio] 15.0 % Invalid Interpretation Code 11.5 - 14.5 % AO Workflow SS HBV surface Ag IA Ql Non-Reactive (10/07/22 10:24 AM) Invalid Interpretation Code Non-Reacti ve AH ADM SS Hematocrit (Bld) [Volume fraction] 35.2 % Invalid Interpretation Code 37.0 - 47.0 % AO Workflow SS Hemoglobin (Bld) [Mass/Vol] 11.7 G/dL Invalid Interpretation Code 12.0 - 16.0 G/dL AO Workflow SS Lymphocyte, Absolute 1.8 103/mcL Invalid Interpretation Code 0.8 - 3.9 10^3/mcL AO Workflow SS Lymphocytes/100 WBC (Bld) 19.0 % Invalid Interpretation Code 10.0 - 50.0 % AO Workflow SS MCH (RBC) [Entitic mass] 24.5 pg Invalid Interpretation Code 27.0 - 31.2 pg AO Workflow SS MCHC 33.1 G/dL Invalid Interpretation Code 33.0 - 37.0 G/dL AO Workflow SS MCV (RBC) [Entitic vol] 74.0 fL Invalid Interpretation Code 80.0 - 94.0 fL AO Workflow SS Monocyte, Absolute 0.5 103/mcL Invalid Interpretation Code 0.2 - 1.0 10^3/mcL AO Workflow SS Monocytes/100 WBC (Bld) 5.5 % Invalid Interpretation Code 1.7 - 13.0 % AO Workflow SS Neutrophil, Absolute 6.9 103/mcL Invalid Interpretation Code 2.9 - 6.2 10^3/mcL AO Workflow SS Neutrophils/100 WBC (Bld) 74.5 % Invalid Interpretation Code 37.0 - 80.0 % AO Workflow SS Platelet mean volume (Bld) [Entitic vol] 9.7 fL Invalid Interpretation Code 7.4 - 10.4 fL AO Workflow SS Platelets (Bld) [#/Vol] 140 103/mcL Invalid Interpretation Code 130 - 400 10^3/mcL AO Workflow SS RBC (Bld) [#/Vol] 4.76 106/mcL Invalid Interpretation Code 4.20 - 5.40 10^6/mcL AO Workflow SS TSH Qn 0.70 m[IU]/L Invalid Interpretation Code 0.36 - 3.74 mcIU/mL AO ADM SS WBC (Bld) [#/Vol] 9.2 103/mcL Invalid Interpretation Code 4.6 - 10.8 10^3/mcL AO Workflow SS LABORATORYOrdered By: Sara shaw on 10-07-2022 HCV Ab IA Ql Non-Reactive (10/07/22 10:24 AM) Invalid Interpretation Code Non-Reacti ve ADM SS HCV Ab IA Ql Nonreactive: Samples with a value < 0.80 are considered nonreactive (negative) for antibodies to HCV.A negative test result does not exclude the possibility of exposure to or infection with HCV. HCV antibodies may be undetectable in some stages of the infection and in some clinical conditions. Invalid Interpretation Code Chemistry S TSHon 10-07-2022 TSH Qn 0.70 m[IU]/L Normal 0.36-3.74 [facility] ([place]) Comment on above: Performed By: #### A DIFF, CBC, ANEU, TSH ####[facility] [place] [id number]#### ANSG, RPR, RUBIS, VARIS, HBSAG, HCV1, ABOG ####[address] [place], [place] [address] LABORATORYOrdered By: Miladis Strickland on 08-26-2022 C. trachomatis DNA JULIANNE+probe Ql (Unsp spec) Negative (08/26/22 10:57 AM) Invalid Interpretation Code Negative AH Auto Viro/Sero SS C. trachomatis DNA JULIANNE+probe Ql (Unsp spec) C. trachomatis DNA not detected. Specimen is presumptive negative forC. trachomatis.A negative result does not preclude C. trachomatis infection becauseresults depend on adequate specimen collection, absence of inhibitors,and sufficient DNA to be detected. Invalid Interpretation Code See CT Interp N AH Auto Viro/Sero SS N. gonorrhoeae DNA JULIANNE+probe Ql (Unsp spec) Negative (08/26/22 10:57 AM) Invalid Interpretation Code Negative AH Auto Viro/Sero SS N. gonorrhoeae DNA JULIANNE+probe Ql (Unsp spec) N. gonorrhoeae DNA not detected. Specimen is presumptive negative forN. gonorrhoeae. A negative result does not preclude Neisseria gonorrhoeaeinfection because results depend on adequate specimen collection, absenceof inhibitors, and sufficient DNA to be detected. Invalid Interpretation Code See NG Interp N AH Auto Viro/Sero SS Laboratory - Specimen inform ationOrdered By: Miladis Strickland on 08-26-2022 Specimen source Nom (Unsp spec) Cervix (08/26/22 10:57 AM) Invalid Interpretation Code AH Auto Viro/Sero SS LABORATORYOrdered By: SYSTEM SYSTEM on 07-03-2022 HCG Qn 148.1 m[IU]/mL Invalid Interpretation Code AO ADM SS Comment on above: Interpretive Data: H CG Levels with Gestation age: 0.2- 1 week. . . . . . . . . . . . . . . 5 - 50 mIU/mL 1-2 weeks . . . . . . . . . . . . . . . 50 - 500 mIU/mL 2-3 weeks . . . . . . . . . . . . . . . 100 - 5,000 mIU/ml 3-4 weeks . . . . . . . . . . . . . . . 500 - 10,000 mIU/mL 4-5 weeks . . . . . . . . . . . . . . . 1,000 - 5,000 mIU/mL 5-6 weeks . . . . . . . . . . . . . . . 10,000 - 100,000 mIU/mL 6-8 weeks . . . . . . . . . . . . . . . 15,000 - 200,000 mIU/mL 2-3 months . . . . . . . . . . . . . . . 10,000 - 100,000 mIU/mL LABORATORYOrdered By: SYSTEM SYSTEM on 07-01-2022 HCG Qn 54.5 m[IU]/mL Invalid Interpretation Code [facility] Comment on above: Interpretive Data: H CG Levels with Gestation age: 0.2- 1 week. . . . . . . . . . . . . . . 5 - 50 mIU/mL 1-2 weeks . . . . . . . . . . . . . . . 50 - 500 mIU/mL 2-3 weeks . . . . . . . . . . . . . . . 100 - 5,000 mIU/ml 3-4 weeks . . . . . . . . . . . . . . . 500 - 10,000 mIU/mL 4-5 weeks . . . . . . . . . . . . . . . 1,000 - 5,000 mIU/mL 5-6 weeks . . . . . . . . . . . . . . . 10,000 - 100,000 mIU/mL 6-8 weeks . . . . . . . . . . . . . . . 15,000 - 200,000 mIU/mL 2-3 months . . . . . . . . . . . . . . . 10,000 - 100,000 mIU/mL LABORATORYOrdered By: SYSTEM SYSTEM on 06-28-2022 HCG Qn 16.5 m[IU]/mL Invalid Interpretation Code [facility] Comment on above: Interpretive Data: H CG Levels with Gestation age: 0.2- 1 week. . . . . . . . . . . . . . . 5 - 50 mIU/mL 1-2 weeks . . . . . . . . . . . . . . . 50 - 500 mIU/mL 2-3 weeks . . . . . . . . . . . . . . . 100 - 5,000 mIU/ml 3-4 weeks . . . . . . . . . . . . . . . 500 - 10,000 mIU/mL 4-5 weeks . . . . . . . . . . . . . . . 1,000 - 5,000 mIU/mL 5-6 weeks . . . . . . . . . . . . . . . 10,000 - 100,000 mIU/mL 6-8 weeks . . . . . . . . . . . . . . . 15,000 - 200,000 mIU/mL 2-3 months . . . . . . . . . . . . . . . 10,000 - 100,000 mIU/mL LABORATORYOrdered By: Figma SYSTEM on 04-26-2022 HCG Qn mIU/mL Invalid Interpretation Code AO ADM SS LABORATORYOrdered By: Protean Payment on 04-15-2022 HCG Qn mIU/mL Invalid Interpretation Code AO ADM SS LABORATORYOrdered By: Suman Rodríguez on 02-18-2022 C. trachomatis DNA JULIANNE+probe Ql (Unsp spec) Negative (02/18/22 4:07 PM) Invalid Interpretation Code Negative Auto Viro/Sero SS C. trachomatis DNA JULIANNE+probe Ql (Unsp spec) C. trachomatis DNA not detected. Specimen is presumptive negative forC. trachomatis.A negative result does not preclude C. trachomatis infection becauseresults depend on adequate specimen collection, absence of inhibitors,and sufficient DNA to be detected. Invalid Interpretation Code See CT Interp N AH Auto Viro/Sero SS N. gonorrhoeae DNA JULIANNE+probe Ql (Unsp spec) Negative (02/18/22 4:07 PM) Invalid Interpretation Code Negative AH Auto Viro/Sero SS N. gonorrhoeae DNA JULIANNE+probe Ql (Unsp spec) N. gonorrhoeae DNA not detected. Specimen is presumptive negative forN. gonorrhoeae. A negative result does not preclude Neisseria gonorrhoeaeinfection because results depend on adequate specimen collection, absenceof inhibitors, and sufficient DNA to be detected. Invalid Interpretation Code See NG Interp N Auto Viro/Sero SS Laboratory - Specimen inform ationOrdered By: Suman Rordíguez on 02-18-2022 Specimen source Nom (Unsp spec) Cervix (02/18/22 4:07 PM) Invalid Interpretation Code Auto Viro/Sero SS LABORATORYOrdered By: Jennifer Hammonds on 11-11-2021 Basophil, Absolute 0.1 103/mcL Invalid Interpretation Code 0.0 - 0.2 10^3/mcL AO Workflow SS Basophils/100 WBC (Bld) 0.5 % Invalid Interpretation Code 0.0 - 2.5 % AO Workflow SS Eosinophil, Absolute 0.0 103/mcL Invalid Interpretation Code 0.0 - 0.4 10^3/mcL AO Workflow SS Eosinophils/100 WBC (Bld) 0.3 % Invalid Interpretation Code 0.0 - 7.0 % AO Workflow SS Erythrocyte distribution width (RBC) [Ratio] 14.2 % Invalid Interpretation Code 11.5 - 14.5 % AO Workflow SS Hematocrit (Bld) [Volume fraction] 30.7 % Invalid Interpretation Code 37.0 - 47.0 % AO Workflow SS Hemoglobin (Bld) [Mass/Vol] 10.2 G/dL Invalid Interpretation Code 12.0 - 16.0 G/dL AO Workflow SS Lymphocyte, Absolute 2.6 103/mcL Invalid Interpretation Code 0.8 - 3.9 10^3/mcL AO Workflow SS Lymphocytes/100 WBC (Bld) 22.8 % Invalid Interpretation Code 10.0 - 50.0 % AO Workflow SS MCH (RBC) [Entitic mass] 25.7 pg Invalid Interpretation Code 27.0 - 31.2 pg AO Workflow SS MCHC 33.4 G/dL Invalid Interpretation Code 33.0 - 37.0 G/dL AO Workflow SS MCV (RBC) [Entitic vol] 76.8 fL Invalid Interpretation Code 80.0 - 94.0 fL AO Workflow SS Monocyte, Absolute 0.8 103/mcL Invalid Interpretation Code 0.2 - 1.0 10^3/mcL AO Workflow SS Monocytes/100 WBC (Bld) 7.0 % Invalid Interpretation Code 1.7 - 13.0 % AO Workflow SS Neutrophil, Absolute 7.8 103/mcL Invalid Interpretation Code 2.9 - 6.2 10^3/mcL AO Workflow SS Neutrophils/100 WBC (Bld) 69.4 % Invalid Interpretation Code 37.0 - 80.0 % AO Workflow SS Platelet mean volume (Bld) [Entitic vol] 10.4 fL Invalid Interpretation Code 7.4 - 10.4 fL AO Workflow SS Platelets (Bld) [#/Vol] 103 103/mcL Invalid Interpretation Code 130 - 400 10^3/mcL AO Workflow SS RBC (Bld) [#/Vol] 3.99 106/mcL Invalid Interpretation Code 4.20 - 5.40 10^6/mcL AO Workflow SS WBC (Bld) [#/Vol] 11.3 103/mcL Invalid Interpretation Code 4.6 - 10.8 10^3/mcL AO Workflow SS LABORATORYOrdered By: Monica Chiu on 11-10-2021 ABO/Rh Interp Positive Invalid Interpretation Code AO BB SS Antibody Screen Gel Negative ABSC (11/10/21 6:30 PM) Invalid Interpretation Code AO BB SS LABORATORYOrdered By: Judi Davies on 11-10-2021 Anisocytosis Ql (Bld) 1+ *NA* (11/10/21 6:30 PM) Invalid Interpretation Code AO Workflow SS Basophil, Absolute 0.0 103/mcL Invalid Interpretation Code 0.0 - 0.2 10^3/mcL AO Workflow SS Basophils/100 WBC (Bld) 0.5 % Invalid Interpretation Code 0.0 - 2.5 % AO Workflow SS Eosinophil, Absolute 0.0 103/mcL Invalid Interpretation Code 0.0 - 0.4 10^3/mcL AO Workflow SS Eosinophils/100 WBC (Bld) 0.1 % Invalid Interpretation Code 0.0 - 7.0 % AO Workflow SS Erythrocyte distribution width (RBC) [Ratio] 14.6 % Invalid Interpretation Code 11.5 - 14.5 % AO Workflow SS Giant Platelets Few *NA* (11/10/21 6:30 PM) Invalid Interpretation Code AO Workflow SS Hematocrit (Bld) [Volume fraction] 33.1 % Invalid Interpretation Code 37.0 - 47.0 % AO Workflow SS Hemoglobin (Bld) [Mass/Vol] 10.9 G/dL Invalid Interpretation Code 12.0 - 16.0 G/dL AO Workflow SS Lymphocyte, Absolute 2.1 103/mcL Invalid Interpretation Code 0.8 - 3.9 10^3/mcL AO Workflow SS Lymphocytes/100 WBC (Bld) 21.7 % Invalid Interpretation Code 10.0 - 50.0 % AO Workflow SS MCH (RBC) [Entitic mass] 25.4 pg Invalid Interpretation Code 27.0 - 31.2 pg AO Workflow SS MCHC 33.0 G/dL Invalid Interpretation Code 33.0 - 37.0 G/dL AO Workflow SS MCV (RBC) [Entitic vol] 77.1 fL Invalid Interpretation Code 80.0 - 94.0 fL AO Workflow SS Monocyte, Absolute 0.8 103/mcL Invalid Interpretation Code 0.2 - 1.0 10^3/mcL AO Workflow SS Monocytes/100 WBC (Bld) 8.2 % Invalid Interpretation Code 1.7 - 13.0 % AO Workflow SS Neutrophil, Absolute 6.7 103/mcL Invalid Interpretation Code 2.9 - 6.2 10^3/mcL AO Workflow SS Neutrophils/100 WBC (Bld) 69.5 % Invalid Interpretation Code 37.0 - 80.0 % AO Workflow SS Platelet Estimate Slt Decreased *NA* (11/10/21 6:30 PM) Invalid Interpretation Code AO Workflow SS Platelet mean volume (Bld) [Entitic vol] 11.4 fL Invalid Interpretation Code 7.4 - 10.4 fL AO Workflow SS Platelets (Bld) [#/Vol] 109 103/mcL Invalid Interpretation Code 130 - 400 10^3/mcL AO Workflow SS RBC (Bld) [#/Vol] 4.30 106/mcL Invalid Interpretation Code 4.20 - 5.40 10^6/mcL AO Workflow SS WBC (Bld) [#/Vol] 9.7 103/mcL Invalid Interpretation Code 4.6 - 10.8 10^3/mcL AO Workflow SS LABORATORYOrdered By: Miladis Strickland on 11-10-2021 Reagin Ab RPR Ql (S) Non-Reactive (11/10/21 6:30 PM) Invalid Interpretation Code Non-Reacti ve AH Man Viro/Sero SS LABORATORYOrdered By: Daren Kaur on 11-02-2021 S. agalactiae DNA JULIANNE+probe Ql (Unsp spec) Negative 1 (11/02/21 3:02 PM) Invalid Interpretation Code Negative AH Auto Viro/Sero SS Comment on above: Result Comment: Note s [id number] S. agalactiae DNA JULIANNE+probe Ql (Vag+Rectum) Group B Streptococcus DNA not detected by Real-Time Polymerase Chain Reaction (PCR). A negative result does rule out the possibility of Group B Streptococcus. False Negative results may occur when Group B Streptococcus concentration is below the level of detection. If the patient has signs or symptoms of infection, other laboratory tests and clinical information should be used to confirm the negative result. This test is not intended to differentiate carriers of Group B Streptococcus from those with Streptococcus disease. Invalid Interpretation Code AH Auto Viro/Sero SS LABORATORYOrdered By: Daren Devi on 10-19-2021 [id number] n.placental Ql (Vag fld) Negative (10/19/21 3:48 PM) Invalid Interpretation Code Negative AO Rapid Testing SS LABORATORYOrdered By: Brooklyn Morales on 09-15-2021 Basophil, Absolute 0.0 103/mcL Invalid Interpretation Code 0.0 - 0.2 10^3/mcL AO Workflow SS Basophils/100 WBC (Bld) 0.4 % Invalid Interpretation Code 0.0 - 2.5 % AO Workflow SS Eosinophil, Absolute 0.1 103/mcL Invalid Interpretation Code 0.0 - 0.4 10^3/mcL AO Workflow SS Eosinophils/100 WBC (Bld) 1.0 % Invalid Interpretation Code 0.0 - 7.0 % AO Workflow SS Erythrocyte distribution width (RBC) [Ratio] 14.5 % Invalid Interpretation Code 11.5 - 14.5 % AO Workflow SS Hematocrit (Bld) [Volume fraction] 33.4 % Invalid Interpretation Code 37.0 - 47.0 % AO Workflow SS Hemoglobin (Bld) [Mass/Vol] 11.2 G/dL Invalid Interpretation Code 12.0 - 16.0 G/dL AO Workflow SS Lymphocyte, Absolute 2.2 103/mcL Invalid Interpretation Code 0.8 - 3.9 10^3/mcL AO Workflow SS Lymphocytes/100 WBC (Bld) 19.3 % Invalid Interpretation Code 10.0 - 50.0 % AO Workflow SS MCH (RBC) [Entitic mass] 26.0 pg Invalid Interpretation Code 27.0 - 31.2 pg AO Workflow SS MCHC 33.6 G/dL Invalid Interpretation Code 33.0 - 37.0 G/dL AO Workflow SS MCV (RBC) [Entitic vol] 77.4 fL Invalid Interpretation Code 80.0 - 94.0 fL AO Workflow SS Monocyte, Absolute 0.7 103/mcL Invalid Interpretation Code 0.2 - 1.0 10^3/mcL AO Workflow SS Monocytes/100 WBC (Bld) 6.6 % Invalid Interpretation Code 1.7 - 13.0 % AO Workflow SS Neutrophil, Absolute 8.2 103/mcL Invalid Interpretation Code 2.9 - 6.2 10^3/mcL AO Workflow SS Neutrophils/100 WBC (Bld) 72.7 % Invalid Interpretation Code 37.0 - 80.0 % AO Workflow SS Platelet mean volume (Bld) [Entitic vol] 11.5 fL Invalid Interpretation Code 7.4 - 10.4 fL AO Workflow SS Platelets (Bld) [#/Vol] 149 103/mcL Invalid Interpretation Code 130 - 400 10^3/mcL AO Workflow SS RBC (Bld) [#/Vol] 4.32 106/mcL Invalid Interpretation Code 4.20 - 5.40 10^6/mcL AO Workflow SS WBC 11.3 103/mcL Invalid Interpretation Code 4.6 - 10.8 10^3/mcL AO Workflow SS LABORATORYOrdered By: Ethan Núñez on 09-15-2021 Glucose [Mass/Vol] 113 mg/dL Invalid Interpretation Code 70 - 140 mg/dL AO ADM SS LABORATORYOrdered By: SYSTEM SYSTEM on 09-15-2021 Monocyte distribution width Auto (Bld) [Entitic vol] Not Performed 1 *NA* (09/15/21 2:02 PM) Invalid Interpretation Code 0.00 - 20.00 AO Hematology S Comment on above: Result Comment: MDW testing performed only on adult ER patients between the ages of 18-89 years. LABORATORYOrdered By: Daren Albarran on 09-07-2021 Appearance (U) Clear (09/07/21 11:48 AM) Invalid Interpretation Code Clear AO Auto Urine SS Bilirubin Ql (U) Negative (09/07/21 11:48 AM) Invalid Interpretation Code Negative AO Auto Urine SS Color (U) Yellow (09/07/21 11:48 AM) Invalid Interpretation Code AO Auto Urine SS Glucose Test strip (U) [Mass/Vol] Negative Invalid Interpretation Code Negativemg /dL AO Auto Urine SS Hemoglobin Auto test strip (U) [Mass/Vol] Negative (09/07/21 11:48 AM) Invalid Interpretation Code Negative AO Auto Urine SS Ketones Ql (U) Negative Invalid Interpretation Code Negativemg /dL AO Auto Urine SS UA Leuk Est Negative (09/07/21 11:48 AM) Invalid Interpretation Code Negative AO Auto Urine SS UA Nitrite Negative (09/07/21 11:48 AM) Invalid Interpretation Code Negative AO Auto Urine SS UA pH 7.5 (09/07/21 11:48 AM) Invalid Interpretation Code 5.0 - 8.0 AO Auto Urine SS UA Protein Negative Invalid Interpretation Code Negativemg /dL AO Auto Urine SS UA Spec Grav 1.015 (09/07/21 11:48 AM) Invalid Interpretation Code 1.015-1.02 5 AO Auto Urine SS UA Specimen Type Catheter (09/07/21 11:48 AM) Invalid Interpretation Code AO Auto Urine SS UA Urobilinogen 0.2 E.U./dL Invalid Interpretation Code 0.2-1.0E.U ./dL AO Auto Urine SS LABORATORYOrdered By: Jennifer Hammonds on 09-07-2021 Calcium [Mass/Vol] 8.4 mg/dL Invalid Interpretation Code 8.4 - 10.2 mg/dL AO ADM SS Chloride [Moles/Vol] 104 mmol/L Invalid Interpretation Code 98 - 107 mmol/L AO ADM SS CO2 [Moles/Vol] 26 mmol/L Invalid Interpretation Code 22 - 29 mmol/L AO ADM SS Creatinine [Mass/Vol] 0.71 mg/dL Invalid Interpretation Code 0.55 - 1.02 mg/dL AO ADM SS Electrolyte Balance 6.0 mEq/L Invalid Interpretation Code 4.0 - 15.0 mEq/L AO ADM SS Glucose [Mass/Vol] 85 mg/dL Invalid Interpretation Code 70 - 105 mg/dL AO ADM SS Potassium [Moles/Vol] 3.9 mmol/L Invalid Interpretation Code 3.5 - 5.1 mmol/L AO ADM SS Sodium [Moles/Vol] 136 mmol/L Invalid Interpretation Code 136 - 145 mmol/L AO ADM SS Urea nitrogen [Mass/Vol] 5 mg/dL Invalid Interpretation Code 7 - 18 mg/dL AO ADM SS Urea nitrogen/Creatinine [Mass ratio] 7 ratio Invalid Interpretation Code 7 - 27 ratio AO ADM SS LABORATORYOrdered By: SYSTEM SYSTEM on 09-07-2021 GFR 127 ml/min/1.73sqm Invalid Interpretation Code AO Chemistry S GFR Non- 105 ml/min/1.73sqm Invalid Interpretation Code AO Chemistry S LABORATORYOrdered By: Daren Albarran on 08-28-2021 Creatinine (U) [Mass/Vol] 143.5 mg/dL Invalid Interpretation Code 28.0 - 117.0 mg/dL AO ADM SS U24 Creatinine 1.87 g/24 hr Invalid Interpretation Code 0.60 - 1.80 g/24 hr AO Chemistry S U24 Protein 234 MG/24 HR Invalid Interpretation Code <=149mg/24 hr AO Chemistry S Ur Protein 18 mg/dL Invalid Interpretation Code 0 - 11 mg/dL AO ADM SS No Panel InformationOrdered By: Karina Albarran on 08-28-2021 U24 Total Volume 1300 mL/24hr Invalid Interpretation Code AO Chemistry S No Panel Informationon 08-27 Culture Urine >100,000 cfu/ml Mixed growth consistent with normal urogenital adrián. [facility] Work Phone: LABORATORYOrdered By: Brooklyn Morales on 08-26-2021 Albumin BCP dye [Mass/Vol] 2.8 G/dL Invalid Interpretation Code 3.5 - 5.0 G/dL AO ADM SS Albumin/Globulin [Mass ratio] 0.8 {ratio} Invalid Interpretation Code 1.1 - 2.5 ratio AO ADM SS ALP [Catalytic activity/Vol] 140 U/L Invalid Interpretation Code 40 - 135 U/L AO ADM SS ALT With P-5'-P [Catalytic activity/Vol] 19 U/L Invalid Interpretation Code 14 - 59 U/L AO ADM SS AST With P-5'-P [Catalytic activity/Vol] 14 U/L Invalid Interpretation Code 10 - 40 U/L AO ADM SS Bilirubin [Mass/Vol] 0.2 mg/dL Invalid Interpretation Code 0.2 - 1.0 mg/dL AO ADM SS Calcium [Mass/Vol] 8.6 mg/dL Invalid Interpretation Code 8.4 - 10.2 mg/dL AO ADM SS Chloride [Moles/Vol] 104 mmol/L Invalid Interpretation Code 98 - 107 mmol/L AO ADM SS CO2 [Moles/Vol] 26 mmol/L Invalid Interpretation Code 22 - 29 mmol/L AO ADM SS Creatinine (U) [Mass/Vol] 234.4 mg/dL Invalid Interpretation Code 28.0 - 117.0 mg/dL AO ADM SS Creatinine [Mass/Vol] 0.70 mg/dL Invalid Interpretation Code 0.55 - 1.02 mg/dL AO ADM SS Electrolyte Balance 8.0 mEq/L Invalid Interpretation Code 4.0 - 15.0 mEq/L AO ADM SS Globulin 3.6 G/dL Invalid Interpretation Code AO ADM SS Glucose [Mass/Vol] 106 mg/dL Invalid Interpretation Code 70 - 105 mg/dL AO ADM SS Potassium [Moles/Vol] 3.7 mmol/L Invalid Interpretation Code 3.5 - 5.1 mmol/L AO ADM SS Protein (U) [Mass/Vol] 39 mg/dL Invalid Interpretation Code 0 - 11 mg/dL AO ADM SS Protein [Mass/Vol] 6.4 G/dL Invalid Interpretation Code 6.4 - 8.2 G/dL AO ADM SS Sodium [Moles/Vol] 138 mmol/L Invalid Interpretation Code 136 - 145 mmol/L AO ADM SS U Ratio Prot/Creat 0.2 ratio Invalid Interpretation Code AO Chemistry S Urea nitrogen [Mass/Vol] 7 mg/dL Invalid Interpretation Code 7 - 18 mg/dL AO ADM SS Urea nitrogen/Creatinine [Mass ratio] 10 ratio Invalid Interpretation Code 7 - 27 ratio AO ADM SS Uric Acid Lvl 3.6 mg/dL Invalid Interpretation Code 2.6 - 6.2 mg/dL AO ADM SS LABORATORYOrdered By: Daren Albarran on 08-26-2021 Appearance (U) Slightly Cloudy *ABN* (08/26/21 3:29 PM) Invalid Interpretation Code Clear AO Auto Urine SS Bacteria LM.HPF (Urine sed) [#/Area] 4 /[HPF] Invalid Interpretation Code AO Auto Urine SS Basophil, Absolute 0.1 103/mcL Invalid Interpretation Code 0.0 - 0.2 10^3/mcL AO Workflow SS Basophils/100 WBC (Bld) 0.7 % Invalid Interpretation Code 0.0 - 2.5 % AO Workflow SS Bilirubin Ql (U) Negative (08/26/21 3:29 PM) Invalid Interpretation Code Negative AO Auto Urine SS Calcium oxalate crystals LM.HPF (Urine sed) [#/Area] 2 /[HPF] Invalid Interpretation Code AO Auto Urine SS Color (U) Yellow (08/26/21 3:29 PM) Invalid Interpretation Code AO Auto Urine SS Eosinophil, Absolute 0.1 103/mcL Invalid Interpretation Code 0.0 - 0.4 10^3/mcL AO Workflow SS Eosinophils/100 WBC (Bld) 1.1 % Invalid Interpretation Code 0.0 - 7.0 % AO Workflow SS Erythrocyte distribution width (RBC) [Ratio] 14.9 % Invalid Interpretation Code 11.5 - 14.5 % AO Workflow SS Glucose Test strip (U) [Mass/Vol] Negative Invalid Interpretation Code Negativemg /dL AO Auto Urine SS Hematocrit (Bld) [Volume fraction] 34.0 % Invalid Interpretation Code 37.0 - 47.0 % AO Workflow SS Hemoglobin (Bld) [Mass/Vol] 11.5 G/dL Invalid Interpretation Code 12.0 - 16.0 G/dL AO Workflow SS Hemoglobin Auto test strip (U) [Mass/Vol] Negative (08/26/21 3:29 PM) Invalid Interpretation Code Negative AO Auto Urine SS Ketones Ql (U) Negative Invalid Interpretation Code Negativemg /dL AO Auto Urine SS Lymphocyte, Absolute 2.2 103/mcL Invalid Interpretation Code 0.8 - 3.9 10^3/mcL AO Workflow SS Lymphocytes/100 WBC (Bld) 20.8 % Invalid Interpretation Code 10.0 - 50.0 % AO Workflow SS MCH (RBC) [Entitic mass] 26.1 pg Invalid Interpretation Code 27.0 - 31.2 pg AO Workflow SS MCHC 33.8 G/dL Invalid Interpretation Code 33.0 - 37.0 G/dL AO Workflow SS MCV (RBC) [Entitic vol] 77.3 fL Invalid Interpretation Code 80.0 - 94.0 fL AO Workflow SS Monocyte, Absolute 0.8 103/mcL Invalid Interpretation Code 0.2 - 1.0 10^3/mcL AO Workflow SS Monocytes/100 WBC (Bld) 7.4 % Invalid Interpretation Code 1.7 - 13.0 % AO Workflow SS Neutrophil, Absolute 7.3 103/mcL Invalid Interpretation Code 2.9 - 6.2 10^3/mcL AO Workflow SS Neutrophils/100 WBC (Bld) 70.0 % Invalid Interpretation Code 37.0 - 80.0 % AO Workflow SS Platelet mean volume (Bld) [Entitic vol] 10.2 fL Invalid Interpretation Code 7.4 - 10.4 fL AO Workflow SS Platelets (Bld) [#/Vol] 136 103/mcL Invalid Interpretation Code 130 - 400 10^3/mcL AO Workflow SS RBC (Bld) [#/Vol] 4.40 106/mcL Invalid Interpretation Code 4.20 - 5.40 10^6/mcL AO Workflow SS UA Leuk Est Trace *ABN* (08/26/21 3:29 PM) Invalid Interpretation Code Negative AO Auto Urine SS UA Nitrite Negative (08/26/21 3:29 PM) Invalid Interpretation Code Negative AO Auto Urine SS UA pH 6.5 (08/26/21 3:29 PM) Invalid Interpretation Code 5.0 - 8.0 AO Auto Urine SS UA Protein Trace mg/dL Invalid Interpretation Code Negativemg /dL AO Auto Urine SS UA RBC 0-5 /HPF Invalid Interpretation Code None Seen/HPF AO Auto Urine SS UA Spec Grav >=1.030 *ABN* (08/26/21 3:29 PM) Invalid Interpretation Code 1.015-1.02 5 AO Auto Urine SS UA Specimen Type Clean Catch (08/26/21 3:29 PM) Invalid Interpretation Code AO Auto Urine SS UA Squam Epithelial LOADED /HPF Invalid Interpretation Code None Seen/HPF AO Auto Urine SS UA Urobilinogen 1.0 E.U./dL Invalid Interpretation Code 0.2-1.0E.U ./dL AO Auto Urine SS WBC 10.5 103/mcL Invalid Interpretation Code 4.6 - 10.8 10^3/mcL AO Workflow SS WBC LM.HPF (Urine sed) [#/Area] 5-10 /HPF Invalid Interpretation Code None Seen/HPF AO Auto Urine SS LABORATORYOrdered By: SYSTEM SYSTEM on 08-26-2021 GFR 129 ml/min/1.73sqm Invalid Interpretation Code AO Chemistry S GFR Non- 107 ml/min/1.73sqm Invalid Interpretation Code AO Chemistry S Monocyte distribution width Auto (Bld) [Entitic vol] Not Performed 1 *NA* (08/26/21 3:29 PM) Invalid Interpretation Code 0.00 - 20.00 AO Hematology S Comment on above: Result Comment: MDW testing performed only on adult ER patients between the ages of 18-89 years. No Panel Informationon 06-29 Affirm Pathogens DNA Direct Probe Gardnerella vaginalis DNA Probe Negative Trichomonas vaginalis DNA Probe Negative Renuka species DNA Probe Negative [facility] Work Phone: LABORATORYOrdered By: Madeline Amador on 06-14-2021 Basophil, Absolute 0.00 103/mcL Invalid Interpretation Code 0.00 - 0.19 10^3/mcL AO Auto Heme SS Basophils/100 WBC (Bld) 0.5 % Invalid Interpretation Code 0.0 - 2.5 % AO Auto Heme SS Calcium [Mass/Vol] 8.8 mg/dL Invalid Interpretation Code 8.4 - 10.2 mg/dL AO ADM SS Chloride [Moles/Vol] 101 mmol/L Invalid Interpretation Code 98 - 107 mmol/L AO ADM SS CO2 [Moles/Vol] 26 mmol/L Invalid Interpretation Code 22 - 29 mmol/L AO ADM SS Creatinine [Mass/Vol] 0.68 mg/dL Invalid Interpretation Code 0.55 - 1.02 mg/dL AO ADM SS Electrolyte Balance 10.0 mEq/L Invalid Interpretation Code 4.0 - 15.0 mEq/L AO ADM SS Eosinophil, Absolute 0.10 103/mcL Invalid Interpretation Code 0.00 - 0.40 10^3/mcL AO Auto Heme SS Eosinophils/100 WBC (Bld) 0.6 % Invalid Interpretation Code 0.0 - 7.0 % AO Auto Heme SS Erythrocyte distribution width (RBC) [Ratio] 14.0 % Invalid Interpretation Code 11.5 - 14.5 % AO Auto Heme SS Glucose [Mass/Vol] 104 mg/dL Invalid Interpretation Code 70 - 105 mg/dL AO ADM SS Hematocrit (Bld) [Volume fraction] 36.9 % Invalid Interpretation Code 37.0 - 47.0 % AO Auto Heme SS Hemoglobin (Bld) [Mass/Vol] 12.5 G/dL Invalid Interpretation Code 12.0 - 16.0 G/dL AO Auto Heme SS Lymphocyte, Absolute 2.40 103/mcL Invalid Interpretation Code 0.77 - 3.85 10^3/mcL AO Auto Heme SS Lymphocytes/100 WBC (Bld) 26.4 % Invalid Interpretation Code 10.0 - 50.0 % AO Auto Heme SS MCH (RBC) [Entitic mass] 25.9 pg Invalid Interpretation Code 27.0 - 31.2 pg AO Auto Heme SS MCHC (RBC) [Mass/Vol] 34.0 G/dL Invalid Interpretation Code 33.0 - 37.0 G/dL AO Auto Heme SS MCV (RBC) [Entitic vol] 76.3 fL Invalid Interpretation Code 80.0 - 94.0 fL AO Auto Heme SS Monocyte, Absolute 0.60 103/mcL Invalid Interpretation Code 0.15 - 1.00 10^3/mcL AO Auto Heme SS Monocytes/100 WBC (Bld) 6.2 % Invalid Interpretation Code 1.7 - 13.0 % AO Auto Heme SS Neutrophil, Absolute 6.00 103/mcL Invalid Interpretation Code 2.85 - 6.16 10^3/mcL AO Auto Heme SS Neutrophils/100 WBC (Bld) 66.3 % Invalid Interpretation Code 37.0 - 80.0 % AO Auto Heme SS Platelet mean volume (Bld) [Entitic vol] 10.2 fL Invalid Interpretation Code 7.4 - 10.4 fL AO Auto Heme SS Platelets (Bld) [#/Vol] 149 103/mcL Invalid Interpretation Code 130 - 400 10^3/mcL AO Auto Heme SS Potassium [Moles/Vol] 3.6 mmol/L Invalid Interpretation Code 3.5 - 5.1 mmol/L AO ADM SS RBC (Bld) [#/Vol] 4.84 106/mcL Invalid Interpretation Code 4.20 - 5.40 10^6/mcL AO Auto Heme SS Sodium [Moles/Vol] 137 mmol/L Invalid Interpretation Code 136 - 145 mmol/L AO ADM SS TSH Qn 0.71 m[IU]/L Invalid Interpretation Code 0.36 - 3.74 mcIU/mL AO ADM SS Urea nitrogen [Mass/Vol] 8 mg/dL Invalid Interpretation Code 7 - 18 mg/dL AO ADM SS Urea nitrogen/Creatinine [Mass ratio] 12 ratio Invalid Interpretation Code 7 - 27 ratio AO ADM SS WBC (Bld) [#/Vol] 9.00 103/mcL Invalid Interpretation Code 4.60 - 10.80 10^3/mcL AO Auto Heme SS LABORATORYOrdered By: SYSTEM SYSTEM on 06-14-2021 GFR 134 ml/min/1.73sqm Invalid Interpretation Code AO Chemistry S GFR Non- 110 ml/min/1.73sqm Invalid Interpretation Code AO Chemistry S LABORATORYOrdered By: Ethan Núñez on 05-01-2021 ABO/Rh Interp Positive Invalid Interpretation Code AO BB SS Antibody Screen Gel Negative ABSC (05/01/21 11:00 AM) Invalid Interpretation Code AO BB SS LABORATORYOrdered By: Huey Trotter on 05-01-2021 Basophil, Absolute 0.00 103/mcL Invalid Interpretation Code 0.00 - 0.19 10^3/mcL AO Auto Heme SS Basophils/100 WBC (Bld) 0.5 % Invalid Interpretation Code 0.0 - 2.5 % AO Auto Heme SS Eosinophil, Absolute 0.00 103/mcL Invalid Interpretation Code 0.00 - 0.40 10^3/mcL AO Auto Heme SS Eosinophils/100 WBC (Bld) 0.5 % Invalid Interpretation Code 0.0 - 7.0 % AO Auto Heme SS Erythrocyte distribution width (RBC) [Ratio] 13.9 % Invalid Interpretation Code 11.5 - 14.5 % AO Auto Heme SS Hematocrit (Bld) [Volume fraction] 37.8 % Invalid Interpretation Code 37.0 - 47.0 % AO Auto Heme SS Hemoglobin (Bld) [Mass/Vol] 12.8 G/dL Invalid Interpretation Code 12.0 - 16.0 G/dL AO Auto Heme SS HIV 1 p24 Ab Ql (S) Non-Reactive (05/01/21 11:00 AM) Invalid Interpretation Code Non-Reacti ve AO Rapid Testing SS HIV 1+2 Ab IA.rapid Ql (Unsp spec) Non-Reactive (05/01/21 11:00 AM) Invalid Interpretation Code Non-Reacti ve AO Rapid Testing SS HIV P24 Int Non-Reactive Invalid Interpretation Code AO Rapid Testing SS Lymphocyte, Absolute 2.40 103/mcL Invalid Interpretation Code 0.77 - 3.85 10^3/mcL AO Auto Heme SS Lymphocytes/100 WBC (Bld) 28.9 % Invalid Interpretation Code 10.0 - 50.0 % AO Auto Heme SS MCH (RBC) [Entitic mass] 25.7 pg Invalid Interpretation Code 27.0 - 31.2 pg AO Auto Heme SS MCHC (RBC) [Mass/Vol] 33.8 G/dL Invalid Interpretation Code 33.0 - 37.0 G/dL AO Auto Heme SS MCV (RBC) [Entitic vol] 76.2 fL Invalid Interpretation Code 80.0 - 94.0 fL AO Auto Heme SS Monocyte, Absolute 0.50 103/mcL Invalid Interpretation Code 0.15 - 1.00 10^3/mcL AO Auto Heme SS Monocytes/100 WBC (Bld) 5.5 % Invalid Interpretation Code 1.7 - 13.0 % AO Auto Heme SS Neutrophil, Absolute 5.40 103/mcL Invalid Interpretation Code 2.85 - 6.16 10^3/mcL AO Auto Heme SS Neutrophils/100 WBC (Bld) 64.6 % Invalid Interpretation Code 37.0 - 80.0 % AO Auto Heme SS Platelet mean volume (Bld) [Entitic vol] 9.7 fL Invalid Interpretation Code 7.4 - 10.4 fL AO Auto Heme SS Platelets (Bld) [#/Vol] 184 103/mcL Invalid Interpretation Code 130 - 400 10^3/mcL AO Auto Heme SS RBC (Bld) [#/Vol] 4.96 106/mcL Invalid Interpretation Code 4.20 - 5.40 10^6/mcL AO Auto Heme SS RHIV 1/2 Ab Int Non-Reactive Invalid Interpretation Code AO Rapid Testing SS WBC (Bld) [#/Vol] 8.30 103/mcL Invalid Interpretation Code 4.60 - 10.80 10^3/mcL AO Auto Heme SS LABORATORYOrdered By: Protean Payment on 05-01-2021 Hep B Surf Ag Non-Reactive (05/01/21 11:00 AM) Invalid Interpretation Code Non-Reacti ve ADM SS LABORATORYOrdered By: Suman Rodríguez on 05-01-2021 Reagin Ab RPR Ql (S) Non-Reactive (05/01/21 11:00 AM) Invalid Interpretation Code Non-Reacti ve Man Viro/Sero SS LABORATORYOrdered By: Eliezer phelps on 05-01-2021 Hep C Ab Non-Reactive (05/01/21 10:58 AM) Invalid Interpretation Code Non-Reacti ve ADM SS Hep C Ab Int Nonreactive: Samples with a value < 0.80 are considered nonreactive (negative) for antibodies to HCV.A negative test result does not exclude the possibility of exposure to or infection with HCV. HCV antibodies may be undetectable in some stages of the infection and in some clinical conditions. Invalid Interpretation Code Chemistry S LABORATORYOrdered By: Miladis Strickland on 03-31-2021 C. trachomatis DNA JULIANNE+probe Ql (Unsp spec) Negative (03/31/21 1:48 PM) Invalid Interpretation Code Negative Auto Viro/Sero SS C. trachomatis Interp C. trachomatis DNA not detected. Specimen is presumptive negative forC. trachomatis.A negative result does not preclude C. trachomatis infection becauseresults depend on adequate specimen collection, absence of inhibitors,and sufficient DNA to be detected. Invalid Interpretation Code See CT Interp N Auto Viro/Sero SS N. gonorrhoeae DNA JULIANNE+probe Ql (Unsp spec) Negative (03/31/21 1:48 PM) Invalid Interpretation Code Negative AH Auto Viro/Sero SS N. gonorrhoeae Interp N. gonorrhoeae DNA not detected. Specimen is presumptive negative forN. gonorrhoeae. A negative result does not preclude Neisseria gonorrhoeaeinfection because results depend on adequate specimen collection, absenceof inhibitors, and sufficient DNA to be detected. Invalid Interpretation Code See NG Interp N AH Auto Viro/Sero SS LABORATORYOrdered By: Caprice Flores on 03-31-2021 Drug Screen Urine Negative (03/31/21 1:48 PM) Invalid Interpretation Code AH Chemistry S Drug Screen Urine Interp Urine shows no evidence of drugs routinely screened. Invalid Interpretation Code AH Chemistry S pH (U) 7.5 [pH] Invalid Interpretation Code 5.0 - 8.0 AH Chemistry S Specific gravity (U) [Rel density] 1.024 Invalid Interpretation Code 1.005 - 1.030 AH Chemistry S Urine Drugs screened: See Below (03/31/21 1:48 PM) Invalid Interpretation Code AH Chemistry S Laboratory - Specimen inform ationOrdered By: Miladis Strickland on 03-31-2021 Specimen source Nom (Unsp spec) Urine (03/31/21 1:48 PM) Invalid Interpretation Code AH Auto Viro/Sero SS No Panel Informationon 03-31 Culture Urine >100,000 cfu/ml Multiple bacterial morphotypes present. Probable Contamination. Suggest recollection if clinically indicated. [facility] Work Phone: LABORATORYOrdered By: Brooklyn Morales on 03-30-2021 HCG Qn 3246.0 m[IU]/mL Invalid Interpretation Code AO ADM SS LABORATORYOrdered By: Brooklyn Morales on 03-26-2021 HCG Qn 452.5 m[IU]/mL Invalid Interpretation Code AO ADM SS LABORATORYOrdered By: Brooklyn Morales on 03-23-2021 HCG Qn 95.0 m[IU]/mL Invalid Interpretation Code AO ADM SS LABORATORYOrdered By: Brooklyn Morales on 02-12-2021 HCG Qn mIU/mL Invalid Interpretation Code AO ADM SS No Panel Informationon 02-09 Culture Urine >100,000 cfu/ml Mixed growth consistent with normal urogenital adrián. [facility] Work Phone: LABORATORYOrdered By: Daren Albarran on 01-25-2021 Basophil, Absolute 0.00 103/mcL Invalid Interpretation Code 0.00 - 0.19 10^3/mcL AO Auto Heme SS Basophils/100 WBC (Bld) 0.4 % Invalid Interpretation Code 0.0 - 2.5 % AO Auto Heme SS Calcium [Mass/Vol] 8.9 mg/dL Invalid Interpretation Code 8.4 - 10.2 mg/dL AO ADM SS Chloride [Moles/Vol] 103 mmol/L Invalid Interpretation Code 98 - 107 mmol/L AO ADM SS CO2 [Moles/Vol] 26 mmol/L Invalid Interpretation Code 22 - 29 mmol/L AO ADM SS Creatinine [Mass/Vol] 0.88 mg/dL Invalid Interpretation Code 0.55 - 1.02 mg/dL AO ADM SS Electrolyte Balance 10.0 mEq/L Invalid Interpretation Code AO ADM SS Eosinophil, Absolute 0.10 103/mcL Invalid Interpretation Code 0.00 - 0.40 10^3/mcL AO Auto Heme SS Eosinophils/100 WBC (Bld) 0.7 % Invalid Interpretation Code 0.0 - 7.0 % AO Auto Heme SS Erythrocyte distribution width (RBC) [Ratio] 14.1 % Invalid Interpretation Code 11.5 - 14.5 % AO Auto Heme SS Glucose [Mass/Vol] 99 mg/dL Invalid Interpretation Code 70 - 105 mg/dL AO ADM SS Hematocrit (Bld) [Volume fraction] 40.9 % Invalid Interpretation Code 37.0 - 47.0 % AO Auto Heme SS Hemoglobin (Bld) [Mass/Vol] 13.7 G/dL Invalid Interpretation Code 12.0 - 16.0 G/dL AO Auto Heme SS Lymphocyte, Absolute 1.20 103/mcL Invalid Interpretation Code 0.77 - 3.85 10^3/mcL AO Auto Heme SS Lymphocytes/100 WBC (Bld) 12.1 % Invalid Interpretation Code 10.0 - 50.0 % AO Auto Heme SS MCH (RBC) [Entitic mass] 25.3 pg Invalid Interpretation Code 27.0 - 31.2 pg AO Auto Heme SS MCHC (RBC) [Mass/Vol] 33.4 G/dL Invalid Interpretation Code 33.0 - 37.0 G/dL AO Auto Heme SS MCV (RBC) [Entitic vol] 75.8 fL Invalid Interpretation Code 80.0 - 94.0 fL AO Auto Heme SS Monocyte, Absolute 0.60 103/mcL Invalid Interpretation Code 0.15 - 1.00 10^3/mcL AO Auto Heme SS Monocytes/100 WBC (Bld) 6.0 % Invalid Interpretation Code 1.7 - 13.0 % AO Auto Heme SS Neutrophil, Absolute 8.00 103/mcL Invalid Interpretation Code 2.85 - 6.16 10^3/mcL AO Auto Heme SS Neutrophils/100 WBC (Bld) 80.8 % Invalid Interpretation Code 37.0 - 80.0 % AO Auto Heme SS Platelet mean volume (Bld) [Entitic vol] 10.1 fL Invalid Interpretation Code 7.4 - 10.4 fL AO Auto Heme SS Platelets (Bld) [#/Vol] 170 103/mcL Invalid Interpretation Code 130 - 400 10^3/mcL AO Auto Heme SS Potassium [Moles/Vol] 4.1 mmol/L Invalid Interpretation Code 3.5 - 5.1 mmol/L AO ADM SS RBC (Bld) [#/Vol] 5.40 106/mcL Invalid Interpretation Code 4.20 - 5.40 10^6/mcL AO Auto Heme SS Sodium [Moles/Vol] 139 mmol/L Invalid Interpretation Code 136 - 145 mmol/L AO ADM SS Urea nitrogen [Mass/Vol] 16 mg/dL Invalid Interpretation Code 7 - 18 mg/dL AO ADM SS Urea nitrogen/Creatinine [Mass ratio] 18 ratio Invalid Interpretation Code 7 - 27 ratio AO ADM SS WBC (Bld) [#/Vol] 9.90 103/mcL Invalid Interpretation Code 4.60 - 10.80 10^3/mcL AO Auto Heme SS Appearance (U) Slightly Cloudy *ABN* (01/25/21 4:08 PM) Invalid Interpretation Code Clear AO Auto Urine SS Bacteria LM.HPF (Urine sed) [#/Area] 4 /[HPF] Invalid Interpretation Code AO Auto Urine SS Bilirubin Ql (U) Negative (01/25/21 4:08 PM) Invalid Interpretation Code Negative AO Auto Urine SS Color (U) Yellow (01/25/21 4:08 PM) Invalid Interpretation Code AO Auto Urine SS Crystals.amorphous LM.HPF (Urine sed) [#/Area] 1 /[HPF] Invalid Interpretation Code AO Auto Urine SS Glucose Test strip (U) [Mass/Vol] Negative Invalid Interpretation Code Negativemg /dL AO Auto Urine SS HCG ( test) Ql Negative (01/25/21 4:08 PM) Invalid Interpretation Code AO Manual Urine SS Hemoglobin Auto test strip (U) [Mass/Vol] Negative (01/25/21 4:08 PM) Invalid Interpretation Code Negative AO Auto Urine SS Ketones Ql (U) Negative Invalid Interpretation Code Negativemg /dL AO Auto Urine SS test (u) int Not detected Invalid Interpretation Code AO Manual Urine SS UA Leuk Est Negative (01/25/21 4:08 PM) Invalid Interpretation Code Negative AO Auto Urine SS UA Nitrite Negative (01/25/21 4:08 PM) Invalid Interpretation Code Negative AO Auto Urine SS UA pH 6.0 (01/25/21 4:08 PM) Invalid Interpretation Code 5.0 - 8.0 AO Auto Urine SS UA Protein Trace mg/dL Invalid Interpretation Code Negativemg /dL AO Auto Urine SS UA RBC 0-5 /HPF Invalid Interpretation Code None Seen/HPF AO Auto Urine SS UA Spec Grav >=1.030 *ABN* (01/25/21 4:08 PM) Invalid Interpretation Code 1.015-1.02 5 AO Auto Urine SS UA Specimen Type Clean Catch (01/25/21 4:08 PM) Invalid Interpretation Code AO Auto Urine SS UA Squam Epithelial LOADED /HPF Invalid Interpretation Code None Seen/HPF AO Auto Urine SS UA Urobilinogen 0.2 E.U./dL Invalid Interpretation Code 0.2-1.0E.U ./dL AO Auto Urine SS WBC LM.HPF (Urine sed) [#/Area] 5-10 /HPF Invalid Interpretation Code None Seen/HPF AO Auto Urine SS LABORATORYOrdered By: SYSTEM SYSTEM on 01-25-2021 GFR 99 ml/min/1.73sqm Invalid Interpretation Code AO Chemistry S GFR Non- 82 ml/min/1.73sqm Invalid Interpretation Code AO Chemistry S No Panel Informationon 01-06 Culture Urine 50,000 - 100,000 cfu /ml Multiple bacterial morphotypes present. Probable Contamination. Suggest recollection if clinically indicated. [facility] Work Phone: Vital Signs Date Time Vital Sign Value Performing Clinician Facility 11-09-2023 09:59-0400 Blood Pressure Location KALA LITTLE DO [facility] 11-09-2023 09:59-0400 Blood Pressure Method KALA LITTLE DO [facility] 11-09-2023 09:59-0400 Body temperature 97.7 [degF] KALA LITTLE DO [facility] 11-09-2023 09:59-0400 Diastolic Blood Pressure Non-Invasive 78 mm[Hg] KALA LITTLE DO [facility] 11-09-2023 09:59-0400 Heart rate 90 /min KALA LITTLE DO [facility] 11-09-2023 09:59-0400 Respiratory rate 18 /min KALA LITTLE DO [facility] 11-09-2023 09:59-0400 Systolic Blood Pressure Non-Invasive 127 mm[Hg] KALA LITTLE DO [facility] 08-30-2023 10:28-0400 Body temperature 98.6 [degF] Naye Hancock APRN.TUBER MACHINE OPERATOR HELPER Work Phone: [facility] 08-30-2023 10:28-0400 Body weight 128.1 kg Naye Hancock APRN.TUBER MACHINE OPERATOR HELPER Work Phone: [facility] 08-30-2023 10:28-0400 Diastolic blood pressure 78 mm[Hg] Naye Hancock APRN.TUBER MACHINE OPERATOR HELPER Work Phone: [facility] 08-30-2023 10:28-0400 Heart rate 92 /min Naye Hancock APRN.TUBER MACHINE OPERATOR HELPER Work Phone: [facility] 08-30-2023 10:28-0400 Respiratory rate 18 /min Naye Hancock APRN.TUBER MACHINE OPERATOR HELPER Work Phone: [facility] 08-30-2023 10:28-0400 SaO2% (BldA) [Mass fraction] 99 % Naye Hancock APRN.TUBER MACHINE OPERATOR HELPER Work Phone: [facility] 08-30-2023 10:28-0400 Systolic blood pressure 114 mm[Hg] Naye Hancock APRN.CNP Work Phone: [facility] 02-23-2023 10:30-0500 Body temperature 98.24 [degF] KARISSA CHIU MD [facility] 02-23-2023 10:30-0500 Diastolic Blood Pressure Non-Invasive 78 mm[Hg] KARISSA CHIU MD [facility] 02-23-2023 10:30-0500 Heart rate 72 /min KARISSA CHIU MD [facility] 02-23-2023 10:30-0500 Reason For Taking VItal Signs KARISSA CHIU MD [facility] 02-23-2023 10:30-0500 Respiratory rate 16 /min KARISSA CHIU MD [facility] 02-23-2023 10:30-0500 Systolic Blood Pressure Non-Invasive 137 mm[Hg] KARISSA CHIU MD [facility] 02-22-2023 23:36-0500 Body temperature 97.88 [degF] KARISSA CHIU MD [facility] 02-22-2023 23:36-0500 Diastolic Blood Pressure Non-Invasive 73 mm[Hg] KARISSA CHIU MD [facility] 02-22-2023 23:36-0500 Heart rate 85 /min KARISSA CHIU MD [facility] 02-22-2023 23:36-0500 Respiratory rate 16 /min KARISSA CHIU MD [facility] 02-22-2023 23:36-0500 Systolic Blood Pressure Non-Invasive 135 mm[Hg] KARISSA CHIU MD [facility] 02-22-2023 15:50-0500 Body temperature 98.06 [degF] KARISSA CHIU MD [facility] 02-22-2023 15:50-0500 Diastolic Blood Pressure Non-Invasive 75 mm[Hg] KARISSA CHIU MD [facility] 02-22-2023 15:50-0500 Heart rate 80 /min KARISSA CHIU MD [facility] 02-22-2023 15:50-0500 Reason For Taking VItal Signs KARISSA CHIU MD [facility] 02-22-2023 15:50-0500 Systolic Blood Pressure Non-Invasive 134 mm[Hg] KARISSA CHIU MD [facility] 02-22-2023 12:30-0500 Respiratory rate 16 /min KARISSA CHIU MD [facility] 02-22-2023 08:30-0500 Reason For Taking VItal Signs KARISSA CHIU MD [facility] 02-21-2023 13:50-0500 Respiratory Rate - Anes 13 br/min KARISSA CHIU MD [facility] 02-21-2023 13:45-0500 Respiratory Rate - Anes 0 br/min KARISSA CHIU MD [facility] 02-21-2023 13:40-0500 Body temperature 96.8 [degF] KARISSA CHIU MD [facility] 02-21-2023 13:40-0500 Respiratory Rate - Anes 22 br/min KARISSA CHIU MD [facility] 02-21-2023 13:10-0500 Body temperature 96.8 [degF] KARISSA CHIU MD [facility] 02-21-2023 12:45-0500 Body temperature 97.7 [degF] KARISSA CHIU MD [facility] 02-21-2023 10:34-0500 Body height 160 cm KARISSA CHIU MD [facility] 02-21-2023 10:34-0500 Body weight 125 kg KARISSA CHIU MD [facility] 02-21-2023 10:34-0500 Body weight 48.83 kg/m2 KARISSA CHIU MD [facility] 02-15-2023 21:00-0500 Diastolic Blood Pressure Non-Invasive 56 mm[Hg] RENATE NIMESH DO [facility] 02-15-2023 21:00-0500 Heart rate 68 /min RENATE NIMESH DO [facility] 02-15-2023 20:45-0500 Diastolic Blood Pressure Non-Invasive 57 mm[Hg] RENATE NIMESH DO [facility] 02-15-2023 20:45-0500 Heart rate 73 /min RENATE NIMESH DO [facility] 02-15-2023 20:45-0500 Systolic Blood Pressure Non-Invasive 95 mm[Hg] RENATE NIMESH DO [facility] 02-15-2023 20:30-0500 Diastolic Blood Pressure Non-Invasive 53 mm[Hg] RENATE NIMESH DO [facility] 02-15-2023 20:30-0500 Heart rate 60 /min RENATE NIMESH DO [facility] 02-15-2023 20:30-0500 Systolic Blood Pressure Non-Invasive 106 mm[Hg] RENATE NIMESH DO [facility] 02-15-2023 13:56-0500 Body temperature 97.88 [degF] RENATE NIMESH DO [facility] 02-15-2023 13:56-0500 Respiratory rate 16 /min RENATE NIMESH DO [facility] 02-15-2023 13:52-0500 Body height 160 cm RENATE NIMESH DO [facility] 02-15-2023 13:52-0500 Body weight 81.3 kg RENATE NIMESH DO [facility] 02-15-2023 13:52-0500 Body weight 31.76 kg/m2 RENATE BEAVERS DO [facility] 02-12-2023 13:15-0500 Diastolic Blood Pressure Non-Invasive 65 mm[Hg] YANNI BURNS MD [facility] 02-12-2023 13:15-0500 Heart rate 65 /min YANNI BURNS MD [facility] 02-12-2023 13:15-0500 Systolic Blood Pressure Non-Invasive 103 mm[Hg] YANNI BURNS MD [facility] 02-12-2023 13:13-0500 Body temperature 98.42 [degF] YANNI BURNS MD [facility] 02-12-2023 13:07-0500 Body height 160 cm YANNI BURNS MD [facility] 02-12-2023 13:07-0500 Body weight 125 kg YANNI BURNS MD [facility] 02-12-2023 13:07-0500 Body weight 48.83 kg/m2 YANNI BURNS MD [facility] 02-10-2023 08:58-0500 Body temperature 98.42 [degF] DR GÉNESIS BLAKE DO [facility] 02-10-2023 08:58-0500 Diastolic Blood Pressure Non-Invasive 69 mm[Hg] DR GÉNESIS BLAKE DO [facility] 02-10-2023 08:58-0500 Heart rate 80 /min DR GÉNESIS BLAKE DO [facility] 02-10-2023 08:58-0500 Respiratory rate 16 /min DR GÉNESIS BLAKE DO [facility] 02-10-2023 08:58-0500 Systolic Blood Pressure Non-Invasive 104 mm[Hg] DR GÉNESIS BLAKE DO [facility] 02-10-2023 03:13-0500 Diastolic Blood Pressure Non-Invasive 57 mm[Hg] DR GÉNESIS BLAKE DO [facility] 02-10-2023 03:13-0500 Heart rate 112 /min DR GÉNESIS BLAKE DO [facility] 02-10-2023 03:13-0500 Respiratory rate 16 /min DR GÉNESIS BLAKE DO [facility] 02-10-2023 03:13-0500 Systolic Blood Pressure Non-Invasive 110 mm[Hg] DR GÉNESIS BLAKE DO [facility] 02-09-2023 23:50-0500 Body temperature 98.96 [degF] DR GÉNESIS BLAKE DO [facility] 02-09-2023 23:50-0500 Diastolic Blood Pressure Non-Invasive 54 mm[Hg] DR GÉNESIS BLAKE DO [facility] 02-09-2023 23:50-0500 Heart rate 102 /min DR GÉNESIS BLAKE DO [facility] 02-09-2023 23:50-0500 Respiratory rate 16 /min DR GÉNESIS BLAKE DO [facility] 02-09-2023 23:50-0500 Systolic Blood Pressure Non-Invasive 117 mm[Hg] DR GÉNESIS BLAKE DO [facility] 02-09-2023 19:28-0500 Body temperature 98.06 [degF] DR GÉNESIS BLAKE DO [facility] 02-09-2023 19:28-0500 Reason For Taking VItal Signs DR GÉNESIS BLAKE DO [facility] 02-09-2023 15:38-0500 Reason For Taking VItal Signs DR GÉNESIS BLAKE DO [facility] 02-09-2023 14:08-0500 Reason For Taking VItal Signs DR GÉNESIS BLAKE DO [facility] 02-09-2023 12:52-0500 Body height [address] GÉNESIS BLAKE DO [facility] 02-09-2023 12:52-0500 Body weight [address] GÉNESIS BLAKE DO [facility] 02-09-2023 12:52-0500 Body weight 48.83 kg/m2 DR GÉNESIS BLAKE DO [facility] 02-09-2023 08:31-0500 Body height [address] GÉNESIS BLAKE DO [facility] 02-09-2023 08:31-0500 Body weight [address] GÉNESIS BLAKE DO [facility] 02-09-2023 08:31-0500 Body weight 48.83 kg/m2 DR GÉNESIS BLAKE DO [facility] 01-26-2023 09:59-0500 Body height 160 cm FILI REMY MD [facility] 01-26-2023 09:59-0500 Body weight 79 kg FILI REMY MD [facility] 01-26-2023 09:59-0500 Body weight 30.86 kg/m2 FILI REMY MD [facility] 01-26-2023 09:58-0500 Diastolic Blood Pressure Non-Invasive 62 mm[Hg] FILI REMY MD [facility] 01-26-2023 09:58-0500 Heart rate 90 /min FILI REMY MD [facility] 01-26-2023 09:58-0500 Respiratory rate 18 /min FILI REMY MD [facility] 01-26-2023 09:58-0500 Systolic Blood Pressure Non-Invasive 121 mm[Hg] FILI REMY MD [facility] 01-13-2023 10:00-0500 Body temperature 98.42 [degF] APURVA SINGH MD [facility] 01-13-2023 10:00-0500 Diastolic Blood Pressure Non-Invasive 59 mm[Hg] APURVA SINGH MD [facility] 01-13-2023 10:00-0500 Heart rate 89 /min APURVA SINGH MD [facility] 01-13-2023 10:00-0500 Reason For Taking VItal Signs APURVA SINGH MD [facility] 01-13-2023 10:00-0500 Respiratory rate 18 /min APURVA SINGH MD [facility] 01-13-2023 10:00-0500 Systolic Blood Pressure Non-Invasive 114 mm[Hg] APURVA SINGH MD [facility] 01-12-2023 21:05-0500 Body temperature 98.24 [degF] APURVA SINGH MD [facility] 01-12-2023 21:05-0500 Diastolic Blood Pressure Non-Invasive 68 mm[Hg] APURVA SINGH MD [facility] 01-12-2023 21:05-0500 Heart rate 102 /min APURVA SINGH MD [facility] 01-12-2023 21:05-0500 Reason For Taking VItal Signs APURVA SINGH MD [facility] 01-12-2023 21:05-0500 Respiratory rate 18 /min APURVA SINGH MD [facility] 01-12-2023 21:05-0500 Systolic Blood Pressure Non-Invasive 117 mm[Hg] APURVA SINGH MD [facility] 01-12-2023 21:03-0500 Body height 160 cm APURVA SINGH MD [facility] 01-12-2023 21:03-0500 Body weight 118.2 kg APURVA SINGH MD [facility] 01-12-2023 21:03-0500 Body weight 46.17 kg/m2 APURVA SINGH MD [facility] 12-02-2022 11:30-0400 Diastolic Blood Pressure Non-Invasive 56 1 APURVA SINGH MD [facility] 12-02-2022 11:30-0400 Heart rate 93 /min APURVA SINGH MD [facility] 12-02-2022 11:30-0400 Respiratory rate 18 /min APURVA SINGH MD [facility] 12-02-2022 11:30-0400 Systolic Blood Pressure Non-Invasive 122 1 APURVA SINGH MD [facility] 12-02-2022 11:26-0400 Body height 160 cm APURVA SINGH MD [facility] 12-02-2022 11:26-0400 Body weight 118.2 kg APURVA SINGH MD [facility] 12-02-2022 11:26-0400 Body weight 46.17 kg/m2 APURVA SINGH MD [facility] 11-24-2022 09:41-0400 Body temperature 98.78 [degF] MARYJANE AVILA MD [facility] 11-24-2022 09:41-0400 Diastolic Blood Pressure Non-Invasive 60 1 MARYJANE AVILA MD [facility] 11-24-2022 09:41-0400 Heart rate 83 /min MARYJANE AVILA MD [facility] 11-24-2022 09:41-0400 Respiratory rate 16 /min MARYJANE AVILA MD [facility] 11-24-2022 09:41-0400 Systolic Blood Pressure Non-Invasive 113 1 MARYJANE AVILA MD [facility] 11-24-2022 09:35-0400 Body height 160 cm MARYJANE AVILA MD [facility] 11-24-2022 09:35-0400 Body weight 121.8 kg MARYJANE AVILA MD [facility] 11-24-2022 09:35-0400 Body weight 47.58 kg/m2 MARYJANE AVILA MD [facility] 11-12-2022 09:56-0400 Body height 160 cm MARYJANE AVILA MD [facility] 11-12-2022 09:56-0400 Body weight 122 kg MARYJANE AVILA MD [facility] 11-12-2022 09:56-0400 Body weight 47.66 kg/m2 MARYJANE AVILA MD [facility] 11-12-2022 09:54-0400 Body temperature 98.42 [degF] MARYJANE AVILA MD [facility] 11-12-2022 09:54-0400 Diastolic Blood Pressure Non-Invasive 62 1 MARYJANE AVILA MD [facility] 11-12-2022 09:54-0400 Heart rate 91 /min MARYJANE AVILA MD [facility] 11-12-2022 09:54-0400 Respiratory rate 18 /min MARYJANE AVILA MD [facility] 11-12-2022 09:54-0400 Systolic Blood Pressure Non-Invasive 116 1 MARYJANE AVILA MD [facility] 11-11-2022 19:34-0400 Body temperature 98.06 [degF] APURVA SINGH MD [facility] 11-11-2022 19:34-0400 Diastolic Blood Pressure Non-Invasive 64 1 APURVA SINGH MD [facility] 11-11-2022 19:34-0400 Heart rate 100 /min APURVA SINGH MD [facility] 11-11-2022 19:34-0400 Reason For Taking VItal Signs APURVA SINGH MD [facility] 11-11-2022 19:34-0400 Respiratory rate 18 /min APURVA SINGH MD [facility] 11-11-2022 19:34-0400 Systolic Blood Pressure Non-Invasive 110 1 APURVA SINGH MD [facility] 11-12-2021 08:26-0400 Body temperature 98.6 [degF] BERONICA FLOYD MD [facility] 11-12-2021 08:26-0400 Diastolic blood pressure 68 mm[Hg] BERONICA FLOYD MD [facility] 11-12-2021 08:26-0400 Heart rate 88 /min BERONICA FLOYD MD [facility] 11-12-2021 08:26-0400 Mean blood pressure 82 mm[Hg] BERONICA FLOYD MD [facility] 11-12-2021 08:26-0400 Respiratory rate 16 /min BERONICA FLOYD MD [facility] 11-12-2021 08:26-0400 Systolic blood pressure 110 mm[Hg] BERONICA FLOYD MD [facility] 11-12-2021 00:06-0400 Body temperature 97.88 [degF] BERONICA FLOYD MD [facility] 11-12-2021 00:06-0400 Diastolic blood pressure 67 mm[Hg] BERONICA FLOYD MD [facility] 11-12-2021 00:06-0400 Heart rate 87 /min BERONICA FLOYD MD [facility] 11-12-2021 00:06-0400 Mean blood pressure 80 mm[Hg] BERONICA FLOYD MD [facility] 11-12-2021 00:06-0400 Respiratory rate 18 /min BERONICA FLOYD MD [facility] 11-12-2021 00:06-0400 Systolic blood pressure 107 mm[Hg] BERONICA FLOYD MD [facility] 11-11-2021 18:15-0400 Diastolic blood pressure 57 mm[Hg] BERONICA FLOYD MD [facility] 11-11-2021 18:15-0400 Heart rate 83 /min BERONICA FLOYD MD [facility] 11-11-2021 18:15-0400 Mean blood pressure 74 mm[Hg] BERONICA FLOYD MD [facility] 11-11-2021 18:15-0400 Systolic blood pressure 108 mm[Hg] BERONICA FLOYD MD [facility] 11-11-2021 14:02-0400 Body temperature 98.06 [degF] BERONICA FLOYD MD [facility] 11-11-2021 10:03-0400 Respiratory rate 18 /min BERONICA FLOYD MD [facility] 11-10-2021 20:15-0400 Diastolic Blood Pressure NBP 51 1 BERONICA FLOYD MD [facility] 11-10-2021 20:15-0400 Systolic Blood Pressure NBP 109 1 BERONICA FLOYD MD [facility] 11-10-2021 20:12-0400 Diastolic Blood Pressure NBP 50 1 BERONICA FLOYD MD [facility] 11-10-2021 20:12-0400 Systolic Blood Pressure NBP 106 1 BERONICA FLOYD MD [facility] 11-10-2021 20:10-0400 Diastolic Blood Pressure NBP 53 1 BERONICA FLOYD MD [facility] 11-10-2021 20:10-0400 Systolic Blood Pressure NBP 114 1 BERONICA FLOYD MD [facility] 11-10-2021 18:24-0400 Body height 162.6 cm BERONICA FLOYD MD [facility] 11-10-2021 18:24-0400 Body weight 130 kg BERONICA FLOYD MD [facility] 11-10-2021 18:24-0400 Body weight 49.17 kg/m2 BERONICA FLOYD MD [facility] 11-10-2021 12:16-0400 Body height 162.6 cm BERONICA FLOYD MD [facility] 11-10-2021 12:16-0400 Body weight 130 kg BERONICA FLOYD MD [facility] 11-10-2021 12:16-0400 Body weight 49.17 kg/m2 BERONICA FLOYD MD [facility] 10-19-2021 15:40-0400 Diastolic blood pressure 55 mm[Hg] BERONICA FLOYD MD [facility] 10-19-2021 15:40-0400 Heart rate 100 /min BERONICA FLOYD MD [facility] 10-19-2021 15:40-0400 Mean blood pressure 78 mm[Hg] BERONICA FLOYD MD [facility] 10-19-2021 15:40-0400 Respiratory rate 20 /min BERONICA FLOYD MD [facility] 10-19-2021 15:40-0400 Systolic blood pressure 125 mm[Hg] BERONICA FLOYD MD [facility] 10-19-2021 15:31-0400 Body height 160 cm BERONICA FLOYD MD [facility] 10-19-2021 15:31-0400 Body weight 162 kg BERONICA FLOYD MD [facility] 10-19-2021 15:31-0400 Body weight 63.28 kg/m2 BERONICA FLOYD MD [facility] 10-09-2021 11:54-0400 Body height 160 cm CHAU JOHNNY LATEX RIBBON MACHINE OPERATOR-CNM [facility] 10-09-2021 11:54-0400 Body weight 129.5 kg CHAU JOHNNY LATEX RIBBON MACHINE OPERATOR-CNM [facility] 10-09-2021 11:54-0400 Body weight 50.59 kg/m2 CHAU JOHNNY LATEX RIBBON MACHINE OPERATOR-CNM [facility] 10-09-2021 11:30-0400 Body temperature 97.88 [degF] CHAU JOHNNY LATEX RIBBON MACHINE OPERATOR-CNM [facility] 10-09-2021 11:30-0400 Diastolic blood pressure 64 mm[Hg] CHAU JOHNNY LATEX RIBBON MACHINE OPERATOR-CNM [facility] 10-09-2021 11:30-0400 Heart rate 99 /min CHAU JOHNNY LATEX RIBBON MACHINE OPERATOR-CNM [facility] 10-09-2021 11:30-0400 Respiratory rate 18 /min CHAU JOHNNY LATEX RIBBON MACHINE OPERATOR-CNM [facility] 10-09-2021 11:30-0400 Systolic blood pressure 125 mm[Hg] CHAU JOHNNY LATEX RIBBON MACHINE OPERATOR-CNM [facility] 08-18-2022 10:40-0400 Body temperature 98.24 [degF] APURVA SINGH MD [facility] 10-01-2021 10:40-0400 Diastolic blood pressure 40 mm[Hg] APURVA SINGH MD [facility] 10-01-2021 10:40-0400 Heart rate 69 /min APURVA SINGH MD [facility] 10-01-2021 10:40-0400 Mean blood pressure 60 mm[Hg] APURVA SINGH MD [facility] 10-01-2021 10:40-0400 Respiratory rate 16 /min APURVA SINGH MD [facility] 10-01-2021 10:40-0400 Systolic blood pressure 101 mm[Hg] APURVA SINGH MD [facility] 09-10-2021 12:04-0400 Body temperature 97.81 [degF] Dianelys Praisler-Wood LATEX RIBBON MACHINE OPERATOR.TUBER MACHINE OPERATOR HELPER Work Phone: [facility] 09-10-2021 12:04-0400 Body weight 128.82 kg Dianelys Praisler-Wood LATEX RIBBON MACHINE OPERATOR.TUBER MACHINE OPERATOR HELPER Work Phone: [facility] 09-10-2021 12:04-0400 Diastolic blood pressure 66 mm[Hg] Dianelys Praisler-Wood LATEX RIBBON MACHINE OPERATOR.TUBER MACHINE OPERATOR HELPER Work Phone: [facility] 09-10-2021 12:04-0400 Heart rate 102 /min Dianelys Praisler-Wood LATEX RIBBON MACHINE OPERATOR.TUBER MACHINE OPERATOR HELPER Work Phone: [facility] 09-10-2021 12:04-0400 Respiratory rate 16 /min Dianelys Praisler-Wood LATEX RIBBON MACHINE OPERATOR.TUBER MACHINE OPERATOR HELPER Work Phone: [facility] 09-10-2021 12:04-0400 SaO2% (BldA) [Mass fraction] 99 % Dianelys Praisler-Wood LATEX RIBBON MACHINE OPERATOR.TUBER MACHINE OPERATOR HELPER Work Phone: [facility] 09-10-2021 12:04-0400 Systolic blood pressure 116 mm[Hg] Dianelys Marroquin APRN.TUBER MACHINE OPERATOR HELPER Work Phone: [facility] 09-07-2021 10:03-0400 Body height 160 cm BERONICA FLOYD MD [facility] 09-07-2021 10:03-0400 Body temperature 98.24 [degF] BERONICA FLOYD MD [facility] 09-07-2021 10:03-0400 Body weight 128 kg BERONICA FLOYD MD [facility] 09-07-2021 10:03-0400 Body weight 50 kg/m2 BERONICA FLOYD MD [facility] 09-07-2021 10:03-0400 Diastolic blood pressure 55 mm[Hg] BERONICA FLOYD MD [facility] 09-07-2021 10:03-0400 Heart rate 97 /min BERONICA FLOYD MD [facility] 09-07-2021 10:03-0400 Mean blood pressure 72 mm[Hg] BERONICA FLOYD MD [facility] 09-07-2021 10:03-0400 Respiratory rate 18 /min BERONICA FLOYD MD [facility] 09-07-2021 10:03-0400 Systolic blood pressure 105 mm[Hg] BERONICA FLOYD MD [facility] 08-26-2021 16:30-0400 Diastolic blood pressure 80 mm[Hg] BERONICA FLOYD MD [facility] 08-26-2021 16:30-0400 Heart rate 79 /min BERONICA FLOYD MD [facility] 08-26-2021 16:30-0400 Systolic blood pressure 113 mm[Hg] BERONICA FLOYD MD [facility] 08-26-2021 16:15-0400 Diastolic blood pressure 54 mm[Hg] BERONICA FLOYD MD [facility] 08-26-2021 16:15-0400 Heart rate 73 /min BERONICA FLOYD MD [facility] 08-26-2021 16:15-0400 Systolic blood pressure 114 mm[Hg] BERONICA FLOYD MD [facility] 08-26-2021 16:00-0400 Diastolic blood pressure 50 mm[Hg] BERONICA FLOYD MD [facility] 08-26-2021 16:00-0400 Systolic blood pressure 120 mm[Hg] BERONICA FLOYD MD [facility] 08-26-2021 15:45-0400 Respiratory rate 18 /min BERONICA FLOYD MD [facility] 08-26-2021 15:26-0400 Body height 160 cm BERONICA FLOYD MD [facility] 08-26-2021 15:26-0400 Body weight 122.7 kg BERONICA FLOYD MD [facility] 08-26-2021 15:26-0400 Body weight 47.93 kg/m2 BERONICA FLOYD MD [facility] 08-26-2021 15:20-0400 Body temperature 98.24 [degF] BERONICA FLOYD MD [facility] 06-14-2021 15:08-0400 Diastolic blood pressure 61 mm[Hg] NEMESIO GANN MD [facility] 06-14-2021 15:08-0400 Heart rate 75 /min NEMESIO GANN MD [facility] 06-14-2021 15:08-0400 Respiratory rate 20 /min NEMESIO GANN MD [facility] 06-14-2021 15:08-0400 Systolic blood pressure 116 mm[Hg] NEMESIO GANN MD [facility] 06-14-2021 14:51-0400 Diastolic blood pressure 63 mm[Hg] NEMESIO GANN MD [facility] 06-14-2021 14:51-0400 Heart rate 79 /min NEMESIO GANN MD [facility] 06-14-2021 14:51-0400 Respiratory rate 18 /min NEMESIO GANN MD [facility] 06-14-2021 14:51-0400 Systolic blood pressure 107 mm[Hg] NEMESIO GANN MD [facility] 06-14-2021 14:26-0400 Diastolic blood pressure 76 mm[Hg] NEMESIO GANN MD [facility] 06-14-2021 14:26-0400 Heart rate 83 /min NEMESIO GANN MD [facility] 06-14-2021 14:26-0400 Respiratory rate 18 /min NEMESIO GANN MD [facility] 06-14-2021 14:26-0400 Systolic blood pressure 117 mm[Hg] NEMESIO GANN MD [facility] 06-14-2021 14:08-0400 Body temperature 98.42 [degF] NEMESIO GANN MD [facility] 05-11-2021 11:41-0400 Body temperature 98.42 [degF] APURVA SINGH MD [facility] 05-11-2021 11:41-0400 Diastolic blood pressure 71 mm[Hg] APURVA SINGH MD [facility] 05-11-2021 11:41-0400 Heart rate 91 /min APURVA SINGH MD [facility] 05-11-2021 11:41-0400 Mean blood pressure 84 mm[Hg] APURVA SINGH MD [facility] 05-11-2021 11:41-0400 Respiratory rate 20 /min APURVA SINGH MD [facility] 05-11-2021 11:41-0400 Systolic blood pressure 110 mm[Hg] APURVA SINGH MD [facility] 05-11-2021 11:33-0400 Body height 160 cm APURVA SINGH MD [facility] 05-11-2021 11:33-0400 Body weight 109.1 kg APURVA SINGH MD [facility] 05-11-2021 11:33-0400 Body weight 42.62 kg/m2 APURVA SINGH MD [facility] 01-25-2021 15:40-0500 Body temperature 98.24 [degF] NEMESIO GANN MD [facility] 01-25-2021 15:40-0500 Diastolic blood pressure 86 mm[Hg] NEMESIO GANN MD [facility] 01-25-2021 15:40-0500 Heart rate 80 /min NEMESIO GANN MD [facility] 01-25-2021 15:40-0500 Respiratory rate 20 /min NEMESIO GANN MD [facility] 01-25-2021 15:40-0500 Systolic blood pressure 151 mm[Hg] NEMESIO GANN MD [facility] Encounters Encounter Date Encounter Type Care Provider Facility Start: 11-30-2023 End: 11-30-2023 ambulatory ABIMBOLA DEWITT [facility] Start: 11-28-2023 End: 12-02-2023 ambulatory BERONICA FLOYD MD Facility:[facility] Start: 11-28-2023 End: 12-02-2023 Outreach Lab BERONICA FLOYD MD [facility] Start: 11-10-2023 End: 11-10-2023 ambulatory NONE PHYSICIAN Facility:[facility] Start: 11-10-2023 End: 11-10-2023 Patient encounter procedure APURVA SINGH MD [facility] Start: 11-09-2023 End: 11-09-2023 Emergency department patient visit KALA LITTLE [facility] Start: 09-29-2023 End: 09-29-2023 ambulatory APURVA SINGH MD Facility:B Start: 09-29-2023 End: 09-29-2023 Patient encounter procedure APURVA SINGH MD [facility] Start: 09-23-2023 End: 09-23-2023 ambulatory APURVA SINGH MD Facility:[facility] Start: 09-23-2023 End: 09-23-2023 Patient encounter procedure APURVA SINGH MD [facility] Start: 09-08-2023 End: 09-12-2023 ambulatory APURVA SINGH MD Facility:[facility] Start: 09-08-2023 End: 09-12-2023 Outreach Lab APURVA SINGH MD [facility] Start: 08-30-2023 End: 08-30-2023 ambulatory Facility:[facility] Start: 08-30-2023 End: 08-30-2023 Patient encounter procedure Naye Hancock APRN.[facility] Work Phone: [facility] Comment on above: Chest congestion (Pr imary Dx); Acute cough Start: 02-21-2023 End: 02-23-2023 Evaluation and management of inpatient KARISSA CHIU MD [facility] Start: 02-18-2023 End: 02-18-2023 [facility] Start: 02-16-2023 End: 02-20-2023 ambulatory NONE PHYSICIAN Facility:[facility] Start: 02-15-2023 End: 02-15-2023 ambulatory NONE PHYSICIAN Facility:A Start: 02-15-2023 End: 02-15-2023 SAME DAY STAY RENATE BEAVERS DO [facility] Start: 02-15-2023 End: 02-15-2023 ambulatory ZACHARY Martin [facility] Start: 02-12-2023 End: 02-12-2023 ambulatory NONE PHYSICIAN Facility:A Start: 02-12-2023 End: 02-12-2023 SAME DAY STAY YANNI BURNS MD [facility] Start: 02-11-2023 End: 02-11-2023 ambulatory ENA RIVERA [facility] Start: 02-09-2023 End: 02-10-2023 ambulatory FILI REMY MD Facility:A Start: 02-09-2023 End: 02-10-[address] GÉNESIS BLAKE DO [facility] Start: 02-08-2023 End: 02[facility]08[facility] Start: 02-04-2023 End: 02-04-2023 ambulatory [facility] Start: 02-03-2023 End: 02-04-2023 ambulatory [facility] Start: 02-01-2023 End: 02-01-[address] [facility] Start: 01-28-2023 End: 01-28-2023 ambulatory [place] Start: 01-26-2023 End: 01-26-2023 ambulatory FILI REMY MD Facility:A Start: 01-26-2023 End: 01-26-2023 SAME DAY STAY FILI REMY MD [facility] Start: 01-25-2023 End: 01-25-2023 ambulatory ZACHARY Mario [facility] Start: 01-21-2023 End: 01-21-2023 ambulatory [facility] Start: 01-18-2023 End: 01-18-[address] [facility] Start: 01-17-2023 End: 01-21-2023 ambulatory NONE PHYSICIAN Facility:[facility] Start: 01-17-2023 End: 01-21-2023 ambulatory NONE PHYSICIAN Facility:[facility] Start: 01-14-2023 End: 01-14-[address] CLARENCE ARMSTRONG MD Facility:A Start: 01-14-2023 End: 01-17-2023 ambulatory [place] Start: 01-12-2023 End: 01-13-2023 ambulatory NONE PHYSICIAN Facility:[facility] Start: 01-12-2023 End: 01-13-2023 Observation APURVA SINGH MD [facility] Start: 01-08-2023 End: 01-08-2023 ambulatory UNKNOWN PROVIDER Facility:[facility] Start: 01-08-2023 End: 01-08-2023 Patient encounter procedure BERONICA FLOYD MD [facility] Start: 01-04-2023 End: 01-05-2023 ambulatory UNKNOWN PROVIDER Facility:B Start: 01-03-2023 End: 01-03-2023 ambulatory NONE PHYSICIAN Facility:[facility] Start: 01-03-2023 End: 01-03-2023 Patient encounter procedure APURVA SINGH MD [facility] Start: 12-29-2022 End: 12-29-2022 ambulatory NONE PHYSICIAN Facility:[facility] Start: 12-29-2022 End: 12-29-2022 SAME DAY STAY MARYJANE AVILA MD [facility] Start: 12-28-2022 End: 12-28-2022 ambulatory NONE PHYSICIAN Facility:[facility] Start: 12-16-2022 End: 12-16-2022 ambulatory NONE PHYSICIAN Facility:[facility] Start: 12-16-2022 End: 12-16-2022 SAME DAY STAY APURVA SINGH MD [facility] Start: 12-16-2022 End: 12-16-2022 Emergency department patient visit NONE PHYSICIAN Facility:B Start: 12-16-2022 End: 12-16-2022 ambulatory NONE PHYSICIAN Facility:[facility] Start: 12-09-2022 End: 12-09-2022 ambulatory NONE PHYSICIAN Facility:[facility] Start: 12-02-2022 End: 12-02-2022 ambulatory NONE PHYSICIAN Facility:[facility] Start: 12-02-2022 End: 12-02-2022 SAME DAY STAY APURVA SINGH MD [facility] Start: 11-24-2022 End: 11-24-2022 ambulatory NONE PHYSICIAN Facility:B Start: 11-24-2022 End: 11-24-2022 SAME DAY STAY MARYJANE AVILA MD [facility] Start: 11-14-2022 End: 11-14-2022 ambulatory NONE PHYSICIAN Facility:B Start: 11-12-2022 End: 11-12-2022 ambulatory NONE PHYSICIAN Facility:[facility] Start: 11-12-2022 End: 11-12-2022 SAME DAY STAY MARYJANE AVILA MD [facility] Start: 11-11-2022 End: 11-11-2022 ambulatory NONE PHYSICIAN Facility:B Start: 11-11-2022 End: 11-11-2022 SAME DAY STAY APURVA SINGH MD [facility] Start: 11-10-2022 End: 11-14-2022 ambulatory JAIDA Jesus JUAREZ LATEX RIBBON MACHINE OPERATOR-CNM Facility:[facility] Start: 11-10-2022 End: 11-14-2022 Outreach Lab JAIDA Lee ANN LATEX RIBBON MACHINE OPERATOR-CNM [facility] Start: 10-29-2022 End: 10-29-2022 ambulatory NONE PHYSICIAN Facility:B Start: 10-29-2022 End: 10-29-2022 Patient encounter procedure APURVA SINGH MD [facility] Start: 10-27-2022 End: 10-27-2022 ambulatory NONE PHYSICIAN Facility:B Start: 10-15-2022 End: 10-15-2022 ambulatory NONE PHYSICIAN Facility:[facility] Start: 10-07-2022 End: 10-07-2022 ambulatory APURVA SINGH MD Facility:[facility] Start: 10-07-2022 End: 10-07-2022 Patient encounter procedure APURVA SINGH MD [facility] Start: 10-06-2022 End: 10-06-2022 Subsequent hospital visit by physician Beatriz Rodgers MD Work Phone: [facility] Comment on above: Genetic testing Start: 08-26-2022 End: 08-30-2022 Outreach Lab APURVA SINGH MD [facility] Start: 07-19-2022 End: 07-19-2022 Patient encounter procedure MARYJANE AVILA MD [facility] Start: 07-03-2022 End: 07-23-2023 Lab-Standing Order MARYJANE AVILA MD [facility] Start: 04-26-2022 End: 04-26-2022 Patient encounter procedure APURVA SINGH MD [facility] Start: 04-15-2022 End: 04-15-2022 Patient encounter procedure APURVA SINGH MD [facility] Start: 02-18-2022 End: 02-22-2022 Outreach Lab APURVA SINGH MD [facility] Start: 11-10-2021 End: 11-12-2021 Evaluation and management of inpatient BERONICA FLOYD MD [facility] Start: 11-02-2021 End: 11-06-2021 Outreach Lab APURVA SINGH MD [facility] Start: 10-19-2021 End: 10-19-2021 SAME DAY STAY BERONICA FLOYD MD [facility] Start: 10-09-2021 End: 10-09-2021 SAME DAY STAY CHAU HOOD [facility] Start: 10-01-2021 End: 10-01-2021 SAME DAY STAY APURVA SINGH MD [facility] Start: 09-15-2021 End: 09-15-2021 Patient encounter procedure APURVA SINGH MD [facility] Start: 09-10-2021 End: 09-10-2021 Patient encounter procedure Dianelys Marroquin APRN.CNP Work Phone: [facility] Comment on above: Lower abdominal pain (Primary Dx); Vaginal bleeding in , third trimester Start: 09-07-2021 End: 09-07-2021 SAME DAY STAY BERONICA FLOYD MD [facility] Start: 08-28-2021 End: 09-01-2021 Outreach Lab APURVA SINGH MD [facility] Start: 08-27-2021 End: 08-31-2021 Outreach Lab APURVA SINGH MD [facility] Start: 08-27-2021 End: 08-27-2021 Patient encounter procedure APURVA SINGH MD [facility] Start: 08-26-2021 End: 08-26-2021 SAME DAY STAY BERONICA FLOYD MD [facility] Start: 07-20-2021 End: 07-20-2021 Patient encounter procedure APURVA SINGH MD [facility] Start: 06-29-2021 End: 07-03-2021 Outreach Lab MARYJANE AVILA MD [facility] Start: 06-14-2021 End: 06-14-2021 Emergency department patient visit NEMESIO GANN MD [facility] Start: 05-11-2021 End: 05-11-2021 SAME DAY STAY APURVA SINGH MD [facility] Start: 05-01-2021 End: 05-01-2021 Patient encounter procedure APURVA SINGH MD [facility] Start: 04-13-2021 End: 04-13-2021 Patient encounter procedure KIKI HIGHTOWER LATEX RIBBON MACHINE OPERATOR-TUBER MACHINE OPERATOR HELPER [facility] Start: 03-31-2021 End: 04-04-2021 Outreach Lab MARYJANE AVILA MD [facility] Start: 03-30-2021 End: 04-17-2022 Lab-Standing Order APURVA SINGH MD [facility] Start: 02-12-2021 End: 02-12-2021 Patient encounter procedure APURVA SINGH MD [facility] Start: 02-09-2021 End: 02-13-2021 Outreach Lab APURVA SINGH MD [facility] Start: 01-25-2021 End: 01-25-2021 Emergency department patient visit NEMESIO GANN MD [facility] Start: 01-06-2021 End: 01-10-2021 Outreach Lab CHAU GARCIA LATEX RIBBON MACHINE OPERATOR-CNM [facility] Start: 10-23-2019 End: 01-14-2021 Lab-Standing Order DR APURVA SINGH MD [facility] Procedures Date Procedure Procedure Detail Performing Clinician Start: 02-14-2023 section APURVA SINGH MD Start: 11-10-2021 section APURVA SINGH MD Start: 06-05-2020 section CHAU JOHNNY LATEX RIBBON MACHINE OPERATOR-CNM Start: 07-16-2019 section CHAUJONI GARCIA LATEX RIBBON MACHINE OPERATOR-CNM Start: 11-21-2017 delivery - delivered (finding) CHAU GARCIA LATEX RIBBON MACHINE OPERATOR-CNM H/O: section Previous c esarean section( Confirmed ) BERONICA FLODY MD Plan of Treatment Date Care Activity Detail Author Start: 12-20-2023 RSV Vaccine (1 - Risk 1-dose series) RSV Vaccine (1 - Risk 1-dose series) [facility] Start: 10-16-2023 Influenza vaccination Influenza Vaccine (#1) [facility] Start: 02-14-2023 Behavioral Health Screening Behavioral Health Screening [facility] Start: 10-15-2022 Covid-19 Vaccine ( season) Covid-19 Vaccine () [facility] Start: 10-15-2022 FLU (#1) FLU (#1) [facility] Start: 06-16-2022 Tetanus Diphtheria and Pertussis Vaccines (7 - Td or Tdap) Tetanus Diphtheria and Pertussis Vaccines (7 - Td or Tdap) [facility] Start: 06-16-2022 Urine microalbumin profile DTaP,Tdap,Td Vaccine (7 - Td or Tdap) [facility] Start: 2021 Microscopic observation [Identifier] in Cervix by Cyto stain Pap Smear [facility] Start: 2021 Screening for malignant neoplasm of cervix Cervical Cancer Screening [facility] Start: 10-15-2021 Influenza vaccination INFLUENZA (#1) [facility] Start: 11-27-2019 Urine microalbumin profile DTAP,TDAP,TD (1 - Tdap) [facility] Start: 2018 CHLAMYDIA SCREENING (18-24) CHLAMYDIA SCREENING (18-24) [facility] Start: 2018 GC (GONORRHEA) SCREENING (18-24) GC (GONORRHEA) SCREENING (18-24) [facility] Start: 2018 Hearing Screening Hearing Screening [facility] Start: 2018 HEPATITIS C SCREENING HEPATITIS C SCREENING [facility] Start: 2018 Hepatitis C screening Hepatitis C Screening [facility] Start: 2018 HIV SCREENING HIV SCREENING [facility] Start: 2018 HIV screening HIV Screening [facility] Start: 2018 Screening for Chlamydia trachomatis Chlamydia Screening (18-24) [facility] Start: 2016 MenB (1 of 2 - MenB 2-Dose Series Bexsero) MenB (1 of 2 - MenB 2-Dose Series Bexsero) [facility] Start: 2016 Meningococcal B Vaccine: Consider Based On Risk (1 of 2 - Patient Seeks Protection) Meningococcal B Vaccine: Consider Based On Risk (1 of 2 - Patient Seeks Protection) [facility] Start: 11-27-2015 HPV Vaccine (1 - 3-dose series) HPV Vaccine (1 - 3-dose series) [facility] Start: 11-27-2015 Vision Screening Vision Screening [facility] Start: 2014 PEDS TO ADULT TRANSITION ANNUAL ASSESSMENT PEDS TO ADULT TRANSITION ANNUAL ASSESSMENT [facility] Start: 2012 Adult depression screening assessment DEPRESSION SCREENING [facility] Start: 2012 PEDS TO ADULT TRANSITION INITIAL DISCUSSION PEDS TO ADULT TRANSITION INITIAL DISCUSSION [facility] Start: 11-27-2011 HPV (1 - 2-dose series) HPV (1 - 2-dose series) [facility] Start: 11-27-2011 HPV VACCINE (1 - 2-dose series) HPV VACCINE (1 - 2-dose series) [facility] Start: 2010 MENINGOCOCCAL B: Consider based on risk (1 of 2 - Risk Bexsero 2-dose series) MENINGOCOCCAL B: Consider based on risk (1 of 2 - Risk Bexsero 2-dose series) [facility] Start: 05-27-2001 COVID-19 (#1) COVID-19 (#1) [facility] Start: 05-27-2001 COVID-19 VACCINE (#1) COVID-19 VACCINE (#1) [facility] Genetic Sendout: Fam ilial sample for exome trio 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 Lab Routine Genetic testing 10/06/2022 4:50 PM EDT [facility] Work Phone: Immunizations Immunization Date Immunization Notes Care Provider Whitney hull 06-16-2012 hepatitis A vaccine, pediatric/adolescent dosage, 2 dose schedule Beatriz Rodgers MD Work Phone: [facility] 06-16-2012 meningococcal polysaccharide (groups A, C, Y and W-135) diphtheria toxoid conjugate vaccine (MCV4P) Beatriz Rodgers MD Work Phone: [facility] 06-16-2012 tetanus toxoid, redu cecilia diphtheria toxoid, and acellular pertussis vaccine, adsorbed Beatriz Rodgers MD Work Phone: [facility] 12-21-2010 influenza virus vacc ine, live, attenuated, for intranasal use Beatriz Rodgers MD Work Phone: [facility] 12-21-2010 influenza virus vacc ine, unspecified formulation Naye Hancock APRN.CNP Work Phone: [facility] 05-11-2006 diphtheria, tetanus toxoids and acellular pertussis vaccine Beatriz Rodgers MD Work Phone: [facility] 05-11-2006 hepatitis A vaccine, pediatric/adolescent dosage, 2 dose schedule Beatriz Rodgers MD Work Phone: [facility] 05-11-2006 measles, mumps, rube lla, and varicella virus vaccine Beatriz Rodgers MD Work Phone: [facility] 05-11-2006 poliovirus vaccine, inactivated Beatriz Rodgers MD Work Phone: [facility] 12-11-2003 diphtheria, tetanus toxoids and acellular pertussis vaccine Beatriz Rodgers MD Work Phone: [facility] 07-19-2003 pneumococcal conjuga te vaccine, 7 valent Beatriz Rodgers MD Work Phone: [facility] 07-19-2003 poliovirus vaccine, inactivated Beatriz Rodgers MD Work Phone: [facility] 07-19-2003 varicella virus vaccine Tianna Rodgers MD Work Phone: [facility] 02-20-2003 diphtheria, tetanus toxoids and acellular pertussis vaccine Beatriz Rodgers MD Work Phone: [facility] 02-20-2003 haemophilus influenz ae type b vaccine, PRP-T conjugate Beatriz Rodgers MD Work Phone: [facility] 02-20-2003 hepatitis B vaccine, pediatric or pediatric/adolescent dosage Beatriz Rodgers MD Work Phone: [facility] 02-20-2003 measles, mumps and rubella virus vaccine Beatriz Rodgers MD Work Phone: [facility] 02-20-2003 poliovirus vaccine, inactivated Beatriz Rodgers MD Work Phone: [facility] 11-17-2001 diphtheria, tetanus toxoids and acellular pertussis vaccine Beatriz Rodgers MD Work Phone: [facility] 11-17-2001 haemophilus influenz ae type b vaccine, PRP-T conjugate Beatriz Rodgers MD Work Phone: [facility] 11-17-2001 pneumococcal conjuga te vaccine, 7 valent Beatriz Rodgers MD Work Phone: [facility] 11-17-2001 poliovirus vaccine, inactivated Beatriz Rodgers MD Work Phone: [facility] 05-01-2001 diphtheria, tetanus toxoids and acellular pertussis vaccine Beatriz Rodgers MD Work Phone: [facility] 05-01-2001 haemophilus influenz ae type b vaccine, PRP-T conjugate Beatriz Rodgers MD Work Phone: [facility] 05-01-2001 hepatitis B vaccine, pediatric or pediatric/adolescent dosage Beatriz Rodgers MD Work Phone: [facility] 2000 hepatitis B vaccine, pediatric or pediatric/adolescent dosage Beatriz Rodgers MD Work Phone: [facility] Payers Date Payer Category Payer [facility] MEDICAID [id number] 2022-Present [phone] [address] [place] [address] Medicaid [id number] 2022 Unknown [facility] [id number] 2022-Present [address] [place] [address] [id number] 2022 Medicaid [id number] 2012 Medicaid [employer] [id number] 2012-Present [phone] [address] [place] [address] Medicaid [id number] 2000 Unknown [id number] 2.16.840.1.344290.3.579.2.627 2000 Unknown [id number] 2.16.840.1.599969.3.579.2.627 2000 Unknown [id number] 2.16.840.1.453868.3.579.2.627 2000 Unknown [id number] 2.16.840.1.798225.3.579.2.627 2000 Unknown [id number] 2.16.840.1.935762.3.579.2.627 2000 Unknown [id number] 2.16.840.1.245061.3.579.2.627 2000 Unknown [id number] 2.16.840.1.967022.3.579.2.627 2000 Unknown [id number] 2.16.840.1.903643.3.579.2.627 2000 Unknown [id number] 2.16.840.1.241639.3.579.2.627 2000 Unknown [id number] 2.16.840.1.357575.3.579.2.627 2000 Unknown [id number] 2.16.840.1.999322.3.579.2.627 2000 Unknown [id number] 2.16.840.1.151026.3.579.2.627 2000 Unknown [id number] 2.16.840.1.640492.3.579.2.627 2000 Unknown [id number] 2.16.840.1.602116.3.579.2.627 2000 Unknown [id number] 2.16.840.1.744222.3.579.2.627 2000 Unknown [id number] 2.16.840.1.115350.3.579.2.627 2000 Unknown [id number] 2.16.840.1.074197.3.579.2.627 2000 Unknown [id number] 2.16.840.1.321475.3.579.2.627 2000 Unknown [id number] 2.16.840.1.117588.3.579.2.627 2000 Unknown [id number] 2.16.840.1.850570.3.579.2.627 2000 Unknown [id number] 2.16.840.1.007963.3.579.2.627 2000 Unknown [id number] 2.16.840.1.465151.3.579.2.627 2000 Unknown [id number] 2.16.840.1.462369.3.579.2.627 2000 Unknown [id number] 2.16.840.1.216308.3.579.2.627 2000 Unknown [id number] 2.16.840.1.296854.3.579.2.627 2000 Unknown [id number] 2.16.840.1.393304.3.579.2.627 2000 Unknown [id number] 2.16.840.1.806962.3.579.2.627 2000 Unknown [id number] 2.16.840.1.317392.3.579.2.627 2000 Unknown [id number] 2.16.840.1.036308.3.579.2.627 2000 Unknown [id number] 2.16.840.1.065295.3.579.2.627 2000 Unknown [id number] 2.16.840.1.664400.3.579.2.627 2000 Unknown [id number] 2.16.840.1.579926.3.579.2.627 2000 Unknown [id number] 2.16.840.1.092134.3.579.2.627 2000 Unknown [id number] 2.16.840.1.629842.3.579.2.627 2000 Unknown [id number] 2.16.840.1.267696.3.579.2.627 2000 Unknown [id number] 2.16.840.1.078409.3.579.2.479 2000 Unknown [id number] 2.16.840.1.253383.3.579.2.479 2000 Unknown [id number] 2.16.840.1.866933.3.579.2.479 2000 Unknown [id number] 2.16.840.1.247649.3.579.2.479 2000 Unknown [id number] 2.16.840.1.700274.3.579.2.479 2000 Unknown [id number] 2.16.840.1.088087.3.579.2.479 2000 Unknown [id number] 2.16.840.1.833183.3.579.2.479 2000 Unknown [id number] 2.16.840.1.277986.3.579.2.479 2000 Unknown [id number] 2.16.840.1.908783.3.579.2.479 2000 Unknown [id number] 2.16.840.1.668965.3.579.2.479 2000 Unknown [id number] 2.16.840.1.296340.3.579.2.479 2000 Unknown [id number] 2.16.840.1.552450.3.579.2.479 2000 Unknown [id number] 2.16.840.1.084746.3.579.2.479 2000 Unknown [id number] 2.16.840.1.587600.3.579.2.479 2000 Unknown [id number] 2.16.840.1.888147.3.579.2.479 2000 Unknown [id number] 2.16.840.1.166680.3.579.2.479 2000 Unknown [id number] 2.16.840.1.763938.3.579.2.479 2000 Unknown [id number] 2.16.840.1.179355.3.579.2.479 2000 Unknown [id number] 2.16.840.1.031072.3.579.2.479 2000 Unknown [id number] 2.16.840.1.017058.3.579.2.479 Social History Date Type Detail Facility Start: 06-26-2019 End: 08-30-2023 Never smoked tobacco (finding) [facility] Sex Assigned At Female [facility] Start: 04-11-2013 End: 08-30-2023 Tobacco use and exposure Smokeless tobacco non-user [facility] Work Phone: Start: 09-10-2021 End: 08-30-2023 Alcohol intake Lifetime non-drinker (finding) [facility] Start: 09-10-2021 History SDOH Alcohol Frequency 1 [facility] Start: 11-02-2018 [facility] Start: 2000 Sex Assigned At Not on file [facility] Start: 08-31-2021 End: 09-10-2021 Exposure to SARS-CoV-2 (event) Not sure [facility] Start: 09-20-2018 Alcohol intake Not Asked [facility] Start: 01-20-2020 End: 08-30-2023 Gender identity Not on file [facility] Start: 01-20-2020 End: 08-30-2023 History of Social function [facility] National Score (1-10 0), lower number is lower risk Not on file [facility] Medical Equipment Procedure Code Equipment Code Equipment Origin al Text Equipment Identifier Dates See Instructions , Check 4x/Day, # 1 EA, 0 Refill(s), Pharmacy: [id number], Encounter for supervision of normal in multigravida in second trimester Previous section, 170.2, cm, 12/20/22 10:27:00 EST, Height, 118.2, kg, 12/16/22 9:12:00 EDT, Dosing Weight Start: 12-20-2022 See Instructions , Check 4x/Day, # 1 EA, 0 Refill(s), Pharmacy: [facility] #[id number], Encounter for supervision of normal in multigravida in second trimester Previous section, 170.2, cm, 12/20/22 10:27:00 EST, Height, 118.2, kg, 12/16/22 9:12:00 EDT, Dosing Weight Start: 12-20-2022 See Instructions , Check 4x/Day, # 1 EA, 0 Refill(s), Pharmacy: [facility] #[id number], Encounter for supervision of normal in multigravida in second trimester Previous section, 170.2, cm, 12/20/22 10:27:00 EST, Height, 118.2, kg, 12/16/22 9:12:00 EDT, Dosing Weight Start: 12-20-2022 See Instructions , Check 4x/Day, # 1 EA, 0 Refill(s), Pharmacy: [facility] #[id number], Encounter for supervision of normal in multigravida in second trimester Previous section, 170.2, cm, 12/20/22 10:27:00 EST, Height, 118.2, kg, 12/16/22 9:12:00 EDT, Dosing Weight Start: 12-20-2022 See Instructions , Check 4x/Day, # 100 EA, 2 Refill(s), Pharmacy: [facility] #[id number], Encounter for supervision of normal in multigravida in third trimester GDM, class A2, 160, cm, 01/04/23 11:32:00 EST, Height, 120, kg, 01/04/23 11:32:00 EST, Dosing Weight Start: 01-08-2023 See Instructions , Check 4x/Day, # 1 EA, 0 Refill(s), Pharmacy: [facility] #[id number], Encounter for supervision of normal in multigravida in second trimester Previous section, 170.2, cm, 12/20/22 10:27:00 EST, Height, 118.2, kg, 12/16/22 9:12:00 EDT, Dosing Weight Start: 12-20-2022 See Instructions , Check 4x/Day, # 100 EA, 2 Refill(s), Pharmacy: [facility] #[id number], Encounter for supervision of normal in multigravida in third trimester GDM, class A2, 160, cm, 01/04/23 11:32:00 EST, Height, 120, kg, 01/04/23 11:32:00 EST, Dosing Weight Start: 01-08-2023 See Instructions , Check 4x/Day, # 1 EA, 0 Refill(s), Pharmacy: [facility] #[id number], Encounter for supervision of normal in multigravida in second trimester Previous section, 170.2, cm, 12/20/22 10:27:00 EST, Height, 118.2, kg, 12/16/22 9:12:00 EDT, Dosing Weight Start: 12-20-2022 See Instructions , Check 4x/Day, # 100 EA, 2 Refill(s), Pharmacy: [facility] #[id number], Encounter for supervision of normal in multigravida in third trimester GDM, class A2, 160, cm, 01/04/23 11:32:00 EST, Height, 120, kg, 01/04/23 11:32:00 EST, Dosing Weight Start: 01-08-2023 See Instructions , Check 4x/Day, # 1 EA, 0 Refill(s), Pharmacy: [facility] #[id number], Encounter for supervision of normal in multigravida in second trimester Previous section, 170.2, cm, 12/20/22 10:27:00 EST, Height, 118.2, kg, 12/16/22 9:12:00 EDT, Dosing Weight Start: 12-20-2022 See Instructions , Check 4x/Day, # 100 EA, 2 Refill(s), Pharmacy: [facility] #[id number], Encounter for supervision of normal in multigravida in third trimester GDM, class A2, 160, cm, 01/04/23 11:32:00 EST, Height, 120, kg, 01/04/23 11:32:00 EST, Dosing Weight Start: 01-08-2023 See Instructions , Check 4x/Day, # 1 EA, 0 Refill(s), Pharmacy: [facility] #[id number], Encounter for supervision of normal in multigravida in second trimester Previous section, 170.2, cm, 12/20/22 10:27:00 EST, Height, 118.2, kg, 12/16/22 9:12:00 EDT, Dosing Weight Start: 12-20-2022 See Instructions , Check 4x/Day, # 100 EA, 2 Refill(s), Pharmacy: [facility] #[id number], Encounter for supervision of normal in multigravida in third trimester GDM, class A2, 160, cm, 01/04/23 11:32:00 EST, Height, 120, kg, 01/04/23 11:32:00 EST, Dosing Weight Start: 01-08-2023 See Instructions , Check 4x/Day, # 1 EA, 0 Refill(s), Pharmacy: [facility] #[id number], Encounter for supervision of normal in multigravida in second trimester Previous section, 170.2, cm, 12/20/22 10:27:00 EST, Height, 118.2, kg, 12/16/22 9:12:00 EDT, Dosing Weight Start: 12-20-2022 See Instructions , Check 4x/Day, # 100 EA, 2 Refill(s), Pharmacy: [facility] #[id number], Encounter for supervision of normal in multigravida in third trimester GDM, class A2, 160, cm, 01/04/23 11:32:00 EST, Height, 120, kg, 01/04/23 11:32:00 EST, Dosing Weight Start: 01-08-2023 See Instructions , Check 4x/Day, # 1 EA, 0 Refill(s), Pharmacy: [facility] #[id number], Encounter for supervision of normal in multigravida in second trimester Previous section, 170.2, cm, 12/20/22 10:27:00 EST, Height, 118.2, kg, 12/16/22 9:12:00 EDT, Dosing Weight Start: 12-20-2022 See Instructions , Check 4x/Day, # 100 EA, 2 Refill(s), Pharmacy: [facility] #[id number], Encounter for supervision of normal in multigravida in third trimester GDM, class A2, 160, cm, 01/04/23 11:32:00 EST, Height, 120, kg, 01/04/23 11:32:00 EST, Dosing Weight Start: 01-08-2023 See Instructions , Check 4x/Day, # 1 EA, 0 Refill(s), Pharmacy: [facility] #[id number], Encounter for supervision of normal in multigravida in second trimester Previous section, 170.2, cm, 12/20/22 10:27:00 EST, Height, 118.2, kg, 12/16/22 9:12:00 EDT, Dosing Weight Start: 12-20-2022 See Instructions , Check 4x/Day, # 100 EA, 2 Refill(s), [facility]acy: [facility] #[id number], Encounter for supervision of normal in multigravida in third trimester GDM, class A2, 160, cm, 01/04/23 11:32:00 EST, Height, 120, kg, 01/04/23 11:32:00 EST, Dosing Weight Start: 01-08-2023 See Instructions , Check 4x/Day, # 1 EA, 0 Refill(s), Pharmacy: [facility] #[id number], Encounter for supervision of normal in multigravida in second trimester Previous section, 170.2, cm, 12/20/22 10:27:00 EST, Height, 118.2, kg, 12/16/22 9:12:00 EDT, Dosing Weight Start: 12-20-2022 See Instructions , Check 4x/Day, # 100 EA, 2 Refill(s), Pharmacy: [facility] #[id number], Encounter for supervision of normal in multigravida in third trimester GDM, class A2, 160, cm, 01/04/23 11:32:00 EST, Height, 120, kg, 01/04/23 11:32:00 EST, Dosing Weight Start: 01-08-2023 See Instructions , Check 4x/Day, # 1 EA, 0 Refill(s), Pharmacy: [facility] #[id number], Encounter for supervision of normal in multigravida in second trimester Previous section, 170.2, cm, 12/20/22 10:27:00 EST, Height, 118.2, kg, 12/16/22 9:12:00 EDT, Dosing Weight Start: 12-20-2022 See Instructions , Check 4x/Day, # 100 EA, 2 Refill(s), Pharmacy: [facility] #[id number], Encounter for supervision of normal in multigravida in third trimester GDM, class A2, 160, cm, 01/04/23 11:32:00 EST, Height, 120, kg, 01/04/23 11:32:00 EST, Dosing Weight Start: 01-08-2023 See Instructions , Check 4x/Day, # 1 EA, 0 Refill(s), Pharmacy: [facility] #[id number], Encounter for supervision of normal in multigravida in second trimester Previous section, 170.2, cm, 12/20/22 10:27:00 EST, Height, 118.2, kg, 12/16/22 9:12:00 EDT, Dosing Weight Start: 12-20-2022 See Instructions , Check 4x/Day, # 100 EA, 2 Refill(s), Pharmacy: [facility] #[id number], Encounter for supervision of normal in multigravida in third trimester GDM, class A2, 160, cm, 01/04/23 11:32:00 EST, Height, 120, kg, 01/04/23 11:32:00 EST, Dosing Weight Start: 01-08-2023 See Instructions , Check 4x/Day, # 1 EA, 0 Refill(s), Pharmacy: [facility] #[id number], Encounter for supervision of normal in multigravida in second trimester Previous section, 170.2, cm, 12/20/22 10:27:00 EST, Height, 118.2, kg, 12/16/22 9:12:00 EDT, Dosing Weight Start: 12-20-2022 See Instructions , Check 4x/Day, # 100 EA, 2 Refill(s), Pharmacy: [facility] #[id number], Encounter for supervision of normal in multigravida in third trimester GDM, class A2, 160, cm, 01/04/23 11:32:00 EST, Height, 120, kg, 01/04/23 11:32:00 EST, Dosing Weight Start: 01-08-2023 See Instructions , Check 4x/Day, # 1 EA, 0 Refill(s), Pharmacy: [facility] #[id number], Encounter for supervision of normal in multigravida in second trimester Previous section, 170.2, cm, 12/20/22 10:27:00 EST, Height, 118.2, kg, 12/16/22 9:12:00 EDT, Dosing Weight Start: 12-20-2022 See Instructions , Check 4x/Day, # 100 EA, 2 Refill(s), Pharmacy: [facility] #[id number], Encounter for supervision of normal in multigravida in third trimester GDM, class A2, 160, cm, 01/04/23 11:32:00 EST, Height, 120, kg, 01/04/23 11:32:00 EST, Dosing Weight Start: 01-08-2023 See Instructions , Check 4x/Day, # 1 EA, 0 Refill(s), Pharmacy: [facility] #[id number], Encounter for supervision of normal in multigravida in second trimester Previous section, 170.2, cm, 12/20/22 10:27:00 EST, Height, 118.2, kg, 12/16/22 9:12:00 EDT, Dosing Weight Start: 12-20-2022 See Instructions , Check 4x/Day, # 100 EA, 2 Refill(s), Pharmacy: [facility] #[id number], Encounter for supervision of normal in multigravida in third trimester GDM, class A2, 160, cm, 01/04/23 11:32:00 EST, Height, 120, kg, 01/04/23 11:32:00 EST, Dosing Weight Start: 01-08-2023 See Instructions , Check 4x/Day, # 1 EA, 0 Refill(s), Pharmacy: [facility] #[id number], Encounter for supervision of normal in multigravida in second trimester Previous section, 170.2, cm, 12/20/22 10:27:00 EST, Height, 118.2, kg, 12/16/22 9:12:00 EDT, Dosing Weight Start: 12-20-2022 See Instructions , Check 4x/Day, # 100 EA, 2 Refill(s), Pharmacy: [facility] #[id number], Encounter for supervision of normal in multigravida in third trimester GDM, class A2, 160, cm, 01/04/23 11:32:00 EST, Height, 120, kg, 01/04/23 11:32:00 EST, Dosing Weight Start: 01-08-2023 See Instructions , Check 4x/Day, # 1 EA, 0 Refill(s), Pharmacy: [facility] #[id number], Encounter for supervision of normal in multigravida in second trimester Previous section, 170.2, cm, 12/20/22 10:27:00 EST, Height, 118.2, kg, 12/16/22 9:12:00 EDT, Dosing Weight Start: 12-20-2022 See Instructions , Check 4x/Day, # 100 EA, 2 Refill(s), Pharmacy: [facility] #[id number], Encounter for supervision of normal in multigravida in third trimester GDM, class A2, 160, cm, 01/04/23 11:32:00 EST, Height, 120, kg, 01/04/23 11:32:00 EST, Dosing Weight Start: 01-08-2023 See Instructions , Check 4x/Day, # 1 EA, 0 Refill(s), Pharmacy: [facility] #[id number], Encounter for supervision of normal in multigravida in second trimester Previous section, 170.2, cm, 12/20/22 10:27:00 EST, Height, 118.2, kg, 12/16/22 9:12:00 EDT, Dosing Weight Start: 12-20-2022 See Instructions , Check 4x/Day, # 120 EA, 3 Refill(s), Pharmacy: [facility] #[id number], Gestational diabetes, 160, cm, 11/21/23 9:40:00 EDT, Height, 125, kg, 02/21/23 10:34:00 EST, Dosing Weight Start: 11-21-2023 See Instructions , Check 4x/Day, # 1 EA, 0 Refill(s), Pharmacy: [facility] #[id number], Gestational diabetes, 160, cm, 11/21/23 9:40:00 EDT, Height, 125, kg, 02/21/23 10:34:00 EST, Dosing Weight Start: 11-21-2023 Functional Status Date Assessment Result Facility 11-09-2023 Functional Status Independent [facility] 11-09-2023 Functional Status ID band on, Call device within reach, Bed in low position, Wheels locked, Upper/Half-Length side-rails up, Safety level maintained [facility] 02-23-2023 Functional Status Rooming in [facility] 02-23-2023 Functional Status Independent [facility] 02-22-2023 Functional Status [facility] 02-22-2023 Functional Status [facility] 02-22-2023 Functional Status [facility] 02-22-2023 Functional Status [facility] 02-22-2023 Functional Status [facility] 02-21-2023 Functional Status Sequential Com pression Device bilateral knee high applied/on [facility] 02-21-2023 Functional Status Home independently [facility] 02-10-2023 Functional Status Awake [facility] 02-10-2023 Functional Status [facility] 02-09-2023 Functional Status Maternal Activ ity Sitting in bed [facility] 02-09-2023 Functional Status [facility] 02-09-2023 Functional Status Lives with spouse [facility] 02-09-2023 Functional Status [facility] 01-13-2023 Functional Status Repositions self [facility] 01-12-2023 Functional Status Home independently [facility] 11-24-2022 Functional Status Current Home Treatments None [facility] 11-12-2022 Functional Status Independent Sophia Mccann [facility] 11-12-2022 Functional Status Standard Safet y ID band on, Call device within reach, Bed in low position, Wheels locked, Upper/Half-Length side-rails up, Phone within reach, personal items within reach, Non-Slip footwear [facility] 11-11-2022 Functional Status Repositions self [facility] 11-11-2022 Functional Status Sophia Mccann [facility] 11-11-2022 Functional Status Independent Sophia [facility] 11-12-2021 Functional Status Rooming in Sophia [facility] 11-12-2021 Functional Status Sophia Mccann [facility] 11-11-2021 Functional Status bilateral knee high [facility] 11-11-2021 Functional Status Sophia Mccann [facility] 11-11-2021 Functional Status Sophia Mccann [facility] 11-11-2021 Functional Status Sophia Mccann [facility] 11-11-2021 Functional Status Sophia Mccann [facility] 11-10-2021 Functional Status Sophia Mccann [facility] 11-10-2021 Functional Status Sophia Mccann [facility] 11-10-2021 Functional Status Maintained, More than 8 hours [facility] 11-10-2021 Functional Status Sophia Mccann [facility] 10-19-2021 Functional Status Awake Sophia Mccann [facility] 06-14-2021 Functional Status Sophia Mccann [facility] 06-14-2021 Functional Status Sophia Mccann [facility] Mental Status Date Assessment Result Facility 11-09-2023 Mental Status Orientation Oriented x 4 [facility] 11-09-2023 Mental Status [facility] 02-12-2023 Mental Status Orientation Oriented x 4 [facility] 01-13-2023 Mental Status Orientation Oriented x 4 [facility] 11-12-2022 Mental Status Orientation Oriented x 4 [facility] 11-12-2021 Mental Status Oriented x 4 [facility] 11-11-2021 Mental Status [facility] 11-11-2021 Mental Status [facility] 06-14-2021 Mental Status [facility] 06-14-2021 Mental Status [facility] Clinical Notes 09-01-2005 to 11-09-2023 Naey Hancock APRN.[facility] - 08/30/2023 10:36 AM EDTLaboratoryRadiologyLaboratoryRadiologyLaboratoryRadiology Note Date & Type Note Facility 11-09-2023 Hospital Discharg e instructions Patient Education 11/09/2023 10:55:59 Understanding Preeclampsia Understanding Preeclampsia Your blood pressure will be monitored regularly throughout your to help check for preeclampsia. Preeclampsia is -related hypertension that develops after 20 weeks' gestation. It can lead to health risks for you and your baby. No one knows what causes preeclampsia. But it is known that the only cure is delivery. Signs and symptoms A common sign of preeclampsia is high blood pressure. Other signs and symptoms may include: Rapid weight gain Protein in your urine Headache Abdominal pain on your right side Vision problems (flashes or spots) Edema (swelling) in your face or hands (this also commonly happens near the end of normal pregnancies, even without preeclampsia) Tests you may have Your healthcare provider will want to check your blood pressure throughout your . If your blood pressure is high, you may have the following tests: Urine tests to look for protein Blood tests to confirm preeclampsia monitoring to ensure that your baby is healthy Treating preeclampsia A daily low dose of aspirin may be prescribed to those at risk for preeclampsia. Preeclampsia almost always ends soon after you give . Until then, your healthcare provider can help manage your condition. If your symptoms are mild, you may need bed rest at home. If your symptoms are severe, you will be hospitalized. Hospital treatment includes: Complete bed rest to help control blood pressure Magnesium IV (intravenous) drip during labor to prevent seizures Induced labor or surgical delivery by section When to call your healthcare provider Call your healthcare provider if swelling, weight gain, or other symptoms come on quickly or are severe. Some cases of preeclampsia are more severe than others. Your signs and symptoms also may change or worsen as you get closer to your due date. Who s at risk? Preeclampsia can happen in any woman. Factors that increase the risk include: Previous pregnancies. Preeclampsia, intrauterine growth retardation (IUGR), , placental abruption, or Medical history of mother. Diabetes, high blood pressure, obesity, kidney disease, autoimmune disease (for example lupus), or family history of preeclampsia Current . First , multiple fetuses, over the age of 40 years, or in vitro fertilization Dangers of preeclampsia If not treated, preeclampsia can cause problems for you and your baby. The placenta (organ that nourishes your baby) may tear away from the uterine wall. This can lead to distress (the baby is at risk for health problems) and premature delivery. Preeclampsia can also cause these health problems: Kidney failure or other organ damage Seizures Stroke Once you give In most cases, preeclampsia goes away on its own soon after you give . Within days of delivery, your blood pressure, swelling, and other signs should decrease. [id number] [employer]. [address] [place] [address]. All rights reserved. This information is not intended as a substitute for professional medical care. Always follow your healthcare professional's instructions. 11/09/2023 10:55:40 Monitoring Your Blood Sugar During Monitoring Your Blood Sugar During Your healthcare provider will make sure you know how to check your blood sugar correctly. The only way to be sure your blood sugar stays within a normal range is to check it regularly. You will most likely be asked to check your blood sugar at home 1 or more times a day. Your healthcare provider will teach you how. He or she may also ask you to check your urine at home. Checking your blood sugar at home Your healthcare provider will discuss the best way and times for you to check your blood sugar, and show you what to do. Your blood sugar is usually highest about an hour after you eat. You can check it using a blood glucose meter. Be sure to read the instructions that come with your meter. Follow them carefully. Record your blood sugar level every time you check it. Bring your records and your meter to all your appointments with your healthcare provider. Your blood sugar Your blood sugar should be as follows: Less than __ when you get up. Less than after breakfast. Less than after lunch. Less than after dinner. Check your blood sugar when you get up and 1 to 2 hour(s) after breakfast, lunch, and dinner, as your healthcare provider instructs. When to call your healthcare provider Your blood sugar is above for more than . If you check your urine at home If you don t eat enough, your body will burn fat to get energy. This leaves ketones in your urine. Your healthcare provider may have you check your urine for ketones each morning. You ll use special strips that change color if there are ketones. If you have ketones, this may mean that you re not getting enough calories. Your healthcare provider may make changes in your meal plan. When to call your healthcare provider You have ketones in your urine for more than 2 day(s) in a row. [id number] [employer]. [address] [place] [address]. All rights reserved. This information is not intended as a substitute for professional medical care. Always follow your healthcare professional's instructions. Follow Up Care 11/09/2023 09:51:15 With:APURVA SINGH MD Address: [address] [place] [address] [facility] [place] [address] [phone] When:2-4 days [facility] 11-09-2023 Note Discharge Instructions Thank you for allowing [facility] to assist you with your healthcare needs. The following is important discharge information regarding your hospital visit. Diagnosis from Today's Visit Intermittent lightheadedness What to Do Next Instructions from Your Care Team Please continue to monitor your blood glucose levels and blood pressure levels and follow-up with your [facility]. If you develop sudden onset headache, fluid buildup in your legs, pain in the right upper part of your abdomen or other acute concerns please present to the emergency department and call your OB as these may be consistent with preeclampsia. Your blood pressure in the department was within normal range. Your blood glucose was 96. No qualifying data available. Post Acute Orders No qualifying data available. You Need to Schedule the Following Appointments Follow Up with APURVA SINGH MD When:Within 2-4 days Where:[address] [facility] [address] [facility] [place] [address]- [phone] Allergies [facility] Medications Please ask your primary doctor or pharmacist before taking any other medication not listed, including over the counter drugs, herbal medications, vitamins and or supplements as they may interact with your home medications. What How Much When Instructions Last Dose Unchanged multivitamin, (PrenaPlus) 1 tab(s) by mouth Once a day Please take this list to your next doctor s visit. Bring all medications you take, including over the counter medications, herbals and other supplements with you to your doctor s visit. Patients and families are reminded to discard old lists and to update any records with all medication providers or retail pharmacies. Education Materials Understanding Preeclampsia Your blood pressure will be monitored regularly throughout your to help check for preeclampsia. Preeclampsia is -related hypertension that develops after 20 weeks' gestation. It can lead to health risks for you and your baby. No one knows what causes preeclampsia. But it is known that the only cure is delivery. Signs and symptoms A common sign of preeclampsia is high blood pressure. Other signs and symptoms may include: Rapid weight gain Protein in your urine Headache Abdominal pain on your right side Vision problems (flashes or spots) Edema (swelling) in your face or hands (this also commonly happens near the end of normal pregnancies, even without preeclampsia) Tests you may have Your healthcare provider will want to check your blood pressure throughout your . If your blood pressure is high, you may have the following tests: Urine tests to look for protein Blood tests to confirm preeclampsia monitoring to ensure that your baby is healthy Treating preeclampsia A daily low dose of aspirin may be prescribed to those at risk for preeclampsia. Preeclampsia almost always ends soon after you give . Until then, your healthcare provider can help manage your condition. If your symptoms are mild, you may need bed rest at home. If your symptoms are severe, you will be hospitalized. Hospital treatment includes: Complete bed rest to help control blood pressure Magnesium IV (intravenous) drip during labor to prevent seizures Induced labor or surgical delivery by section When to call your healthcare provider Call your healthcare provider if swelling, weight gain, or other symptoms come on quickly or are severe. Some cases of preeclampsia are more severe than others. Your signs and symptoms also may change or worsen as you get closer to your due date. Who s at risk? Preeclampsia can happen in any woman. Factors that increase the risk include: Previous pregnancies. Preeclampsia, intrauterine growth retardation (IUGR), , placental abruption, or Medical history of mother. Diabetes, high blood pressure, obesity, kidney disease, autoimmune disease (for example lupus), or family history of preeclampsia Current . First , multiple fetuses, over the age of 40 years, or in vitro fertilization Dangers of preeclampsia If not treated, preeclampsia can cause problems for you and your baby. The placenta (organ that nourishes your baby) may tear away from the uterine wall. This can lead to distress (the baby is at risk for health problems) and premature delivery. Preeclampsia can also cause these health problems: Kidney failure or other organ damage Seizures Stroke Once you give In most cases, preeclampsia goes away on its own soon after you give . Within days of delivery, your blood pressure, swelling, and other signs should decrease. [id number] [employer]. [address] [place] [address] 19781. All rights reserved. This information is not intended as a substitute for professional medical care. Always follow your healthcare professional's instructions. Monitoring Your Blood Sugar During Your healthcare provider will make sure you know how to check your blood sugar correctly. The only way to be sure your blood sugar stays within a normal range is to check it regularly. You will most likely be asked to check your blood sugar at home 1 or more times a day. Your healthcare provider will teach you how. He or she may also ask you to check your urine at home. Checking your blood sugar at home Your healthcare provider will discuss the best way and times for you to check your blood sugar, and show you what to do. Your blood sugar is usually highest about an hour after you eat. You can check it using a blood glucose meter. Be sure to read the instructions that come with your meter. Follow them carefully. Record your blood sugar level every time you check it. Bring your records and your meter to all your appointments with your healthcare provider. Your blood sugar Your blood sugar should be as follows: Less than __ when you get up. Less than after breakfast. Less than after lunch. Less than after dinner. Check your blood sugar when you get up and 1 to 2 hour(s) after breakfast, lunch, and dinner, as your healthcare provider instructs. When to call your healthcare provider Your blood sugar is above for more than . If you check your urine at home If you don t eat enough, your body will burn fat to get energy. This leaves ketones in your urine. Your healthcare provider may have you check your urine for ketones each morning. You ll use special strips that change color if there are ketones. If you have ketones, this may mean that you re not getting enough calories. Your healthcare provider may make changes in your meal plan. When to call your healthcare provider You have ketones in your urine for more than 2 day(s) in a row. [phone] [employer]. [address] [place] [address]. All rights reserved. This information is not intended as a substitute for professional medical care. Always follow your healthcare professional's instructions. Additional Information VACCINATE! IT SAVES LIVES! Members of the community who have not yet received the COVID-19 vaccine and would like to receive it can visit one of [facility] vaccine clinics. There are many vaccine clinic locations within the [facility]. For locations and available times, please visit [email or web address] [email or web address] It is important to note that some COVID mobile vaccine clinics are held outdoors and may be canceled in rainy or stormy conditions. To learn more about pediatric vaccinations (ages 5-11), we invite you to visit the [facility] webpage. [email or web address].[email or web address].org/p [email or web address]-Tcpln-Jqxxijrmkmi-Freq jyxqfk-Wmxap-Foxwuxiku.html To learn more about the COVID-19 vaccine, we invite you to visit the CDC website for a list of frequently asked questions. https://www.cdc.gov/coronavirus/ 2019-ncov/vaccines/faq.html [facility] Patient Portal Access Instructions: Stay connected with your healthcare team and access your personal medical information anytime with the [employer] Patient Portal. If you would like a full copy of your medical records please contact the [facility] Medical Records Department Tuesday through Tuesday between 8a.m. and 4:30p.m. Please follow the directions below to access the portal: 1.Access the email account you provided upon registration to the [facility].2.Look for an invitation email from [facility].3.Open the email and access the invitation link: Accept Invitation to [facility]4.Fill in the required masterson to create your account. Sign into [email or web address].[email or web address] with your username and password that you created in the above steps to stay up to date. You can then view a summary of results, a summary of your visits, and the ability to download your summaries to your computer or send the information securely to a physician. Remember that your healthcare information is confidential, so carefully consider who you will allow to register on the [employer] Patient Portal for access to your information. You can also access the [employer] Patient Portal on the [employer]. Simply click on Health Records under Health Data and then click on the iNeed logo. HOW TO SAFELY DISPOSE OF PRESCRIPTION MEDICATIONS Please use one of the following methods to safely dispose of your unused medications. 1.Use a drug disposal kit: the drug disposal pouch allows you to safely discard your old and unused drugs. Ask your nurse to give you one when you are discharged.2.Visit a local take-back location: Many local pharmacies and police departments have programs that collect old and unwanted prescription drugs. Call your local pharmacy or go to http://[employer]Fluoresentric/1G5Jd2x to find one close to you.3.Make use of household items: Use cat litter or old coffee grounds to dispose medications if other options are not available. Mix your drugs with these household products, seal them in an airtight container and throw it into the garbage. Call [facility]: [phone] to be sure your drugs can be disposed of in this way. Some medicines may require a different approach.4.Never flush your medications down the toilet. IF YOU HAVE BEEN PRESCRIBED AN OPIOIDS FOR PAIN If you have been prescribed an opioid (such as hydrocodone, oxycodone or morphine), it is critical to understand the possible side effects and risks of opioid pain medications. Even when taken as directed, opioids can have several side effects including: Tolerance, meaning you might need to take more of a medication for the same pain relief. Nausea, vomiting and/or constipation. Sleepiness, dizziness, dry mouth, confusion, depression or itching. Physical dependence, meaning you have withdrawal symptoms when a medication is stopped ? this can develop within a few days. KNOW YOUR RESPONSIBILITIES It is important to know exactly how much and how often to take the opioid pain medications you are prescribed. Never take opioids in higher amounts or more often than prescribed. Do not combine opioids with alcohol or other drugs that cause drowsiness, such as benzodiazepines, also known as benzos, including diazepam and alprazolam, muscle relaxants or sleep aids. Never sell or share prescription opioids. This is illegal. Store opioids in a secure place and out of reach of others (including children, family, friends and visitors). The last page(s) of this document has been signed and retained as a CHART COPY Signatures Patient Education Materials Understanding Preeclampsia Monitoring Your Blood Sugar During Medication Leaflets My discharge plan and instructions have been reviewed and explained to me and ISB KRISTINE R understand my current condition and have read and understand these discharge instructions. I have received a written copy of the plan/instructions. If I have questions, I am aware that I should contact my doctor. 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 Author Type: Nurse Practitioner Type: Progress Notes Filed: 08/30/2023 10:42 Note Text: CC: Patient presents with: Cough: Chest congestion x1 week 14 weeks HPI: Lester Infante is a 22 year old female who presents to the office with complaint of chest congestion and cough, nonproductive for a week. Symptoms are worsening Associated symptoms includes wheezing and dyspnea. Denies fever, nausea, vomiting , and diarrhea. Treatments tried include nothing so far. with no relief of symptoms. Sick contacts: unknown. History of asthma, frequent episodes of bronchitis, chronic bronchitis, bronchiectasis or COPD: No Smoker: No Seasonal/environmental allergies: No The ROS is otherwise negative. The patient's pmh, medications, allergies, and past visits are reviewed. PHYSICAL EXAM: BP 114/78 Pulse 92 Temp 37 ?C (98.6 ?F) Resp 18 Wt 128.1 kg (282 lb 6.6 oz) LMP (LMP Unknown) SpO2 99% General appearance: alert, cooperative, pleasant, in no acute distress Head: Normocephalic Eyes: EOM's intact, conjunctiva pink and moist, no icterus, sclera white, non-injected Heart: Negative. RRR without obvious murmur, gallop, or rubs. No ectopy. Lungs: mild to moderate wheezing diffusely PAST MEDICAL HISTORY Diagnosis Date NEGATIVE MEDICAL HISTORY PAST SURGICAL HISTORY Procedure Laterality Date INCISION AND DRAINAGE ABSCESS SIMPLE/SINGLE 09/01/05 Right plantar foot ALLERGIES Patient has no known allergies. MEDICATIONS amoxicillin (AMOXIL) 500 mg capsule Take 2 capsules by mouth three times a day for 7 days. vit,alexander 74/iron/folic ( VITAMIN 1+1 ORAL) Take by mouth. ondansetron HCl (ZOFRAN ORAL) Take by mouth. sertraline HCl (ZOLOFT ORAL) Take 1 tablet by mouth once daily. (Patient not taking: Reported on 01/25/2021 ) No family history on file. Social History Tobacco Use Smoking status: Never Smokeless tobacco: Never Substance Use Topics Alcohol use: Never ASSESSMENT/PLAN: 1. Chest congestion - ICD9: 786.9, ICD10: R09.89 (primary diagnosis) - AMOXICILLIN 500 MG CAPSULE 2. Acute cough - ICD9: 786.2, ICD10: R05.1 Treated for possible pneumonia no chest x-ray done due to . Prescription instructions reviewed with patient as applicable. Potential red flag symptoms discussed with the patient. Reviewed appropriate action plan to take if red flag symptoms occur. Patient agreeable to treatment plan. Follow-up with OB. Naye Hancock APRN.[facility] 08-30-2023 History of Presen t illness Narrative CC: Patient presents with: Cough: Chest congestion x1 week 14 weeks HPI: Lester Infante is a 22 year old female who presents to the office with complaint of chest congestion and cough, nonproductive for a week. Symptoms are worsening Associated symptoms includes wheezing and dyspnea. Denies fever, nausea, vomiting , and diarrhea. Treatments tried include nothing so far. with no relief of symptoms. Sick contacts: unknown. History of asthma, frequent episodes of bronchitis, chronic bronchitis, bronchiectasis or COPD: No Smoker: No Seasonal/environmental allergies: No The ROS is otherwise negative. The patient's pmh, medications, allergies, and past visits are reviewed. PHYSICAL EXAM: BP 114/78 Pulse 92 Temp 37 C (98.6 F) Resp 18 Wt 128.1 kg (282 lb 6.6 oz) LMP (LMP Unknown) SpO2 99% General appearance: alert, cooperative, pleasant, in no acute distress Head: Normocephalic Eyes: EOM's intact, conjunctiva pink and moist, no icterus, sclera white, non-injected Heart: Negative. RRR without obvious murmur, gallop, or rubs. No ectopy. Lungs: mild to moderate wheezing diffusely PAST MEDICAL HISTORY Diagnosis Date NEGATIVE MEDICAL HISTORY PAST SURGICAL HISTORY Procedure Laterality Date INCISION & DRAINAGE ABSCESS SIMPLE/SINGLE 09/01/05 Right plantar foot ALLERGIES Patient has no known allergies. MEDICATIONS amoxicillin (AMOXIL) 500 mg capsule Take 2 capsules by mouth three times a day for 7 days. vit,alexander 74/iron/folic ( VITAMIN 1+1 ORAL) Take by mouth. ondansetron HCl (ZOFRAN ORAL) Take by mouth. sertraline HCl (ZOLOFT ORAL) Take 1 tablet by mouth once daily. (Patient not taking: Reported on 01/25/2021 ) No family history on file. Social History Tobacco Use Smoking status: Never Smokeless tobacco: Never Substance Use Topics Alcohol use: Never ASSESSMENT/PLAN: 1. Chest congestion - ICD9: 786.9, ICD10: R09.89 (primary diagnosis) - AMOXICILLIN 500 MG CAPSULE 2. Acute cough - ICD9: 786.2, ICD10: R05.1 Treated for possible pneumonia no chest x-ray done due to . Prescription instructions reviewed with patient as applicable. Potential red flag symptoms discussed with the patient. Reviewed appropriate action plan to take if red flag symptoms occur. Patient agreeable to treatment plan. Follow-up with OB. Naye Hancock APRN.TUBER MACHINE OPERATOR HELPER documented in this encounter [facility] 02-23-2023 Hospital Discharg e instructions Patient Education 02/23/2023 17:16:01 7- Home Care Instructions After Delivery 03/2019 (CUSTOM) Home Care Instructions After Delivery After discharge you may discover that you still have questions about body changes, activity, and care during the next few weeks. The following information should be helpful in answering many of your questions. ACTIVITY Resume your daily activities at home gradually. Allow time for rest periods during the day Avoid heavy lifting (more than 10 pounds/4.5 kilograms) and strenuous work or sports. If you had a , you should refrain from vacuuming, stair-climbing, and driving a car for 2 to 3 weeks. VAGINAL FLOW & RETURN OF MENSES Vaginal flow may continue for 4 to 6 weeks after delivery. Usually the amount decreases and the color of blood gets spray drier. Bright red and increased flow may reoccur if you have been too active. Lie down, rest, and call your caregiver if you are soaking more than 1 pad an hour or passing large clots. Menstrual period will usually return 6 to 8 weeks after delivery. PERINEAL CARE Use the surjit-bottle and change sanitary pads each time you go to the bathroom. Use towelettes in place of toilet paper until stitches are healed. Continue to use tucks and/or spray dermoplast. Lidocaine cream for episiotomy pain with your care givers approval. Do not use tampons or douches until vaginal bleeding has stopped (about 4 weeks). No Sexual intercourse until seen by physician. INCISION (CUT BY THE SURGEON) CARE Following , shower as desired but try to keep your incision dry. A small amount of clear or pink drainage is normal. The incision site will be tender for several weeks. Take prescription or mmyw-vcn-jecbtuv medications for pain with your care givers approval. Contact your caregiver if the drainage increases, becomes foul smelling, the incision reddens, or you develop a fever. BOWELS/HEMORRHOIDS Try to avoid constipation by increasing the fluids and fiber in your diet. Drink at least 6 to 8 glasses of non-caffeinated fluids per day. Include whole grains, raw fruits and vegetables in your diet. Avoid straining when trying to pass a stool. Vpba-gra-eryckva medications, stool softeners, can be used. Check with your caregiver. NUTRITION Eat a well-balanced diet that includes the basic food groups. Do not try to lose weight quickly by drastically cutting back on calories. EXERCISES Kegel exercises Start this exercise right after delivery. You can do it while standing, sitting, or lying down. Tighten your stomach muscles and the muscles surrounding your canal. Hold for a few seconds and then relax. Do Kegel exercises when you take a sitz bath. Repeat often during the day. Choose special times during the day when you will remember to do this (for example, when using the bathroom, turning the water faucet on, etc.). Repeat 5 times each time. Make Kegel exercises a part of your daily routine to maintain the tone of muscles that support your vagina, bladder, and bowels. SELF BREAST EXAMINATION A self breast exam needs to be an important part of every woman's self-care. Do your self breast exam once a month, 5 to 7 days after your period begins, unless you are . Do self breast exams at the same time of the month each month, on a day of your choice. Any lump, bump or discharge should be reported to your caregiver. SEEK MEDICAL CARE IMMEDIATELY IF YOU NOTICE: Sanitary pad soaked with blood in 1 hour or less. Severe lower abdominal pain or cramping. Foul-smelling discharge from vagina. Increased rather than decreased pain around stitches and/or swelling, redness or hardness in area. Pain and/or redness in calf of the leg. Nausea with vomiting for 12 hours. Sudden, severe chest pain. Shortness of breath. Painful urination. Severe headache. Area of the breast is red and sore and you have a fever. (You may feel like you have flu symptoms.) 02/23/2023 17:15:59 Preeclampsia and Eclampsia Preeclampsia and Eclampsia Preeclampsia is a serious condition that may develop during . This condition causes high blood pressure and increased protein in your urine along with other symptoms, such as headaches and vision changes. These symptoms may develop as the condition gets worse. Preeclampsia may occur at 20 weeks of or later. Diagnosing and treating preeclampsia early is very important. If not treated early, it can cause serious problems for you and your baby. One problem it can lead to is eclampsia. Eclampsia is a condition that causes muscle jerking or shaking (convulsions or seizures) and other serious problems for the mother. During , delivering your baby may be the best treatment for preeclampsia or eclampsia. For most women, preeclampsia and eclampsia symptoms go away after giving . In rare cases, a woman may develop preeclampsia after giving ( preeclampsia). This usually occurs within 48 hours after childbirth but may occur up to 6 weeks after giving . What are the causes? The cause of preeclampsia is not known. What increases the risk? The following risk factors make you more likely to develop preeclampsia: Being for the first time. Having had preeclampsia during a past . Having a family history of preeclampsia. Having high blood pressure. Being with more than one baby. Being 35 or older. Being -[place]. Having kidney disease or diabetes. Having medical conditions such as lupus or blood diseases. Being very overweight (obese). What are the signs or symptoms? The most common symptoms are: Severe headaches. Vision problems, such as blurred or double vision. Abdominal pain, especially upper abdominal pain. Other symptoms that may develop as the condition gets worse include: Sudden weight gain. Sudden swelling of the hands, face, legs, and feet. Severe nausea and vomiting. Numbness in the face, arms, legs, and feet. Dizziness. Urinating less than usual. Slurred speech. Convulsions or seizures. How is this diagnosed? There are no screening tests for preeclampsia. Your health care provider will ask you about symptoms and check for signs of preeclampsia during your visits. You may also have tests that include: Checking your blood pressure. Urine tests to check for protein. Your health care provider will check for this at every visit. Blood tests. Monitoring your baby's heart rate. Ultrasound. How is this treated? You and your health care provider will determine the treatment approach that is best for you. Treatment may include: Having more frequent exams to check for signs of preeclampsia, if you have an increased risk for preeclampsia. Medicine to lower your blood pressure. Staying in the hospital, if your condition is severe. There, treatment will focus on controlling your blood pressure and the amount of fluids in your body (fluid retention). Taking medicine (magnesium sulfate) to prevent seizures. This may be given as an injection or through an IV. Taking a low-dose aspirin during your . Delivering your baby early. You may have your labor started with medicine (induced), or you may have a delivery. Follow these instructions at home: Eating and drinking Drink enough fluid to keep your urine pale yellow. Avoid caffeine. Lifestyle Do not use any products that contain nicotine or tobacco, such as cigarettes and e-cigarettes. If you need help quitting, ask your health care provider. Do not use alcohol or drugs. Avoid stress as much as possible. Rest and get plenty of sleep. General instructions Take nwbl-zbv-xrggral and prescription medicines only as told by your health care provider. When lying down, lie on your left side. This keeps pressure off your major blood vessels. When sitting or lying down, raise (elevate) your feet. Try putting some pillows underneath your lower legs. Exercise regularly. Ask your health care provider what kinds of exercise are best for you. Keep all follow-up and visits as told by your health care provider. This is important. How is this prevented? There is no known way of preventing preeclampsia or eclampsia from developing. However, to lower your risk of complications and detect problems early: Get regular care. Your health care provider may be able to diagnose and treat the condition early. Maintain a healthy weight. Ask your health care provider for help managing weight gain during . Work with your health care provider to manage any long-term (chronic) health conditions you have, such as diabetes or kidney problems. You may have tests of your blood pressure and kidney function after giving . Your health care provider may have you take low-dose aspirin during your next . Contact a health care provider if: You have symptoms that your health care provider told you may require more treatment or monitoring, such as: ?Headaches. ?Nausea or vomiting. ?Abdominal pain. ?Dizziness. ?Light-headedness. Get help right away if: You have severe: ?Abdominal pain. ?Headaches that do not get better. ?Dizziness. ?Vision problems. ?Confusion. ?Nausea or vomiting. You have any of the following: ?A seizure. ?Sudden, rapid weight gain. ?Sudden swelling in your hands, ankles, or face. ?Trouble moving any part of your body. ?Numbness in any part of your body. ?Trouble speaking. ?Abnormal bleeding. You faint. Summary Preeclampsia is a serious condition that may develop during . This condition causes high blood pressure and increased protein in your urine along with other symptoms, such as headaches and vision changes. Diagnosing and treating preeclampsia early is very important. If not treated early, it can cause serious problems for you and your baby. Get help right away if you have symptoms that your health care provider told you to watch for. This information is not intended to replace advice given to you by your health care provider. Make sure you discuss any questions you have with your health care provider. Document Released: 01/28/2001 Document Revised: 10/03/2018 Document Reviewed: 09/06/2016 [employer] Patient Education [email or web address]. Follow Up Care 02/20/2023 18:39:56 With:[facility] Address: [address] [place] [address] (Tue-Tue from 8:30am - 5:00pm) [place] [address]- When:Within 6 Week(s) Comments:Follow up in 6 weeks for visit. [facility] 02-23-2023 Note Discharge Instructions Thank you for allowing [facility] to assist you with your healthcare needs. The following is important discharge information regarding your hospital visit. Your Care Team PHYSICIAN, NONE Your Diagnosis Post-op pain What to do next Follow Up Appointments Follow Up with [facility] CLINIC When In 6 weeks Why: Follow up in 6 weeks for visit. Where: [address] [facility] (Tue-Tue from 8:30am - 5:00pm) [place] [address]- Someone Will Contact You Regarding These Home Health Referrals No home referrals have been ordered for you. No one will call you. The Following Activity and Diet Have Been Ordered for You Discharge Activity - Ordered -- May Shower, No sexual intercourse or anything inside of the vagina x 6 wks. No tub baths x 2 wks, No lifting >15lbs x 6 wks, Don't operate a vehicle for 2 wks and until pain free,, 02/23/23 5:57:00 EST Discharge Diet - Ordered -- Type of Diet: Regular, No changes were made to your diet during your hospital stay. Please resume your pre hospitalization diet on discharge., 02/23/23 5:57:00 EST The Following Equipment Has Been Ordered for You Discharge Home Equipment Discharge Wound Care - Ordered -- call the office if exp a temp >100.4, Increase in Bleeding, Increase in Pain, or Increase in foul odors, 02/23/23 5:57:00 EST The Following Treatments Have Been Arranged for You Discharge Labs No qualifying data available. Discharge Radiology No qualifying data available. Other Therapies No qualifying data available. Allergies NKA Immunizations This Visit Not Given Vaccine Commentstetanus/diphth/pertuss (Tdap) adult/adol Patient Refuses Medications Please ask your primary doctor or pharmacist before taking any other medication not listed, including over the counter drugs, herbal medications, vitamins and or supplements as they may interact with your home medications. What How Much When Why Instructions Last Dose New acetaminophen-oxyCODONE (Percocet 5 mg-325 mg oral tablet) 1 tab(s) by mouth Every 6 hours as needed for Pain Post-op pain Duration: 7 Days Pickup at [facility] New chlorhexidine topical (chlorhexidine 4% topical soap) 0.33 Bottle(s) Topical Every day Use as need around outer perimeter of incision for 5 days post-op to prevent yeast infection Pickup at [facility] New docusate (Colace 100 mg oral capsule) 1 cap by mouth Two (2) times a day as needed for as needed for constipation Refills: 1 Pickup at [facility] New ibuprofen (ibuprofen 600 mg oral tablet) 1 tab(s) by mouth Every 6 hours as needed for for pain Take with food or milk. Pickup at [facility] Changed ferrous sulfate 325 Milligram by mouth Changed ferrous sulfate (IRON (ferrous sulfate 325 mg) 65 mg oral tablet) 1 tab(s) by mouth Once a day Duration: 30 Days Pickup at [facility] Unchanged acetaminophen (Tylenol Extra Strength 500 mg oral tablet) 2 tab(s) by mouth Every 8 hours as needed for as needed for pain Unchanged DME (Alcohol Swabs) See instructions Encounter for supervision of normal in multigravida in second trimester Previous section Check 4x/ Day Unchanged DME (Alcohol Swabs) See instructions Encounter for supervision of normal in multigravida in third trimester GDM, class A2 Check 4x/ Day Unchanged DME (Blood Glucose Test Machine) See instructions Encounter for supervision of normal in multigravida in third trimester GDM, class A2 Check 4x/ Day Unchanged DME (Blood Glucose Test Machine) See instructions Encounter for supervision of normal in multigravida in second trimester Previous section Check 4x/ Day Unchanged DME (Blood Glucose Test Strips) See instructions Encounter for supervision of normal in multigravida in third trimester GDM, class A2 Check 4x/ Day Unchanged DME (Blood Glucose Test Strips) See instructions Encounter for supervision of normal in multigravida in second trimester Previous section Check 4x/ Day Unchanged DME (Blood Pressure Cuff) See instructions Check and Log Blood Pressure Daily Unchanged DME (Lancets) See instructions Encounter for supervision of normal in multigravida in second trimester Previous section Check 4x/ Day Unchanged DME (Lancets) See instructions Encounter for supervision of normal in multigravida in third trimester GDM, class A2 Check 4x/ Day Unchanged famotidine (Pepcid 20 mg oral tablet) 1 tab(s) by mouth Once a day Unchanged insulin detemir (Levemir) (insulin detemir (Levemir) 100 units/ mL subcutaneous solution) See instructions 0.28 Subcutaneous qHS Unchanged insulin detemir (Levemir) (Levemir 100 units/ mL 10 mL vial) 28 Subcutaneous Daily at bedtime Unchanged multivitamin, (PrenaPlus) 1 tab(s) by mouth Once a day Unchanged ursodiol (ursodiol 300 mg oral capsule) 1 cap by mouth Three (3) times a day Duration: 30 Days Pharmacy Information [facility]: [facility] [address] [place] [address] [phone] Please take this list to your next doctor s visit. Bring all medications you take, including over the counter medications, herbals and other supplements with you to your doctor s visit. Patients and families are reminded to discard old lists and to update any records with all medication providers or retail pharmacies. Education Materials Home Care Instructions After Delivery After discharge you may discover that you still have questions about body changes, activity, and care during the next few weeks. The following information should be helpful in answering many of your questions. ACTIVITY Resume your daily activities at home gradually. Allow time for rest periods during the day Avoid heavy lifting (more than 10 pounds/4.5 kilograms) and strenuous work or sports. If you had a , you should refrain from vacuuming, stair-climbing, and driving a car for 2 to 3 weeks. VAGINAL FLOW & RETURN OF MENSES Vaginal flow may continue for 4 to 6 weeks after delivery. Usually the amount decreases and the color of blood gets spray drier. Bright red and increased flow may reoccur if you have been too active. Lie down, rest, and call your caregiver if you are soaking more than 1 pad an hour or passing large clots. Menstrual period will usually return 6 to 8 weeks after delivery. PERINEAL CARE Use the surjit-bottle and change sanitary pads each time you go to the bathroom. Use towelettes in place of toilet paper until stitches are healed. Continue to use tucks and/or spray dermoplast. Lidocaine cream for episiotomy pain with your care givers approval. Do not use tampons or douches until vaginal bleeding has stopped (about 4 weeks). No Sexual intercourse until seen by physician. INCISION (CUT BY THE SURGEON) CARE Following , shower as desired but try to keep your incision dry. A small amount of clear or pink drainage is normal. The incision site will be tender for several weeks. Take prescription or hnat-txs-uqunkrc medications for pain with your care givers approval. Contact your caregiver if the drainage increases, becomes foul smelling, the incision reddens, or you develop a fever. BOWELS/HEMORRHOIDS Try to avoid constipation by increasing the fluids and fiber in your diet. Drink at least 6 to 8 glasses of non-caffeinated fluids per day. Include whole grains, raw fruits and vegetables in your diet. Avoid straining when trying to pass a stool. Uzjs-pbs-naovqzr medications, stool softeners, can be used. Check with your caregiver. NUTRITION Eat a well-balanced diet that includes the basic food groups. Do not try to lose weight quickly by drastically cutting back on calories. EXERCISES Kegel exercises Start this exercise right after delivery. You can do it while standing, sitting, or lying down. Tighten your stomach muscles and the muscles surrounding your canal. Hold for a few seconds and then relax. Do Kegel exercises when you take a sitz bath. Repeat often during the day. Choose special times during the day when you will remember to do this (for example, when using the bathroom, turning the water faucet on, etc.). Repeat 5 times each time. Make Kegel exercises a part of your daily routine to maintain the tone of muscles that support your vagina, bladder, and bowels. SELF BREAST EXAMINATION A self breast exam needs to be an important part of every woman's self-care. Do your self breast exam once a month, 5 to 7 days after your period begins, unless you are . Do self breast exams at the same time of the month each month, on a day of your choice. Any lump, bump or discharge should be reported to your caregiver. SEEK MEDICAL CARE IMMEDIATELY IF YOU NOTICE: Sanitary pad soaked with blood in 1 hour or less. Severe lower abdominal pain or cramping. Foul-smelling discharge from vagina. Increased rather than decreased pain around stitches and/or swelling, redness or hardness in area. Pain and/or redness in calf of the leg. Nausea with vomiting for 12 hours. Sudden, severe chest pain. Shortness of breath. Painful urination. Severe headache. Area of the breast is red and sore and you have a fever. (You may feel like you have flu symptoms.) Preeclampsia and Eclampsia Preeclampsia is a serious condition that may develop during . This condition causes high blood pressure and increased protein in your urine along with other symptoms, such as headaches and vision changes. These symptoms may develop as the condition gets worse. Preeclampsia may occur at 20 weeks of or later. Diagnosing and treating preeclampsia early is very important. If not treated early, it can cause serious problems for you and your baby. One problem it can lead to is eclampsia. Eclampsia is a condition that causes muscle jerking or shaking (convulsions or seizures) and other serious problems for the mother. During , delivering your baby may be the best treatment for preeclampsia or eclampsia. For most women, preeclampsia and eclampsia symptoms go away after giving . In rare cases, a woman may develop preeclampsia after giving ( preeclampsia). This usually occurs within 48 hours after childbirth but may occur up to 6 weeks after giving . What are the causes? The cause of preeclampsia is not known. What increases the risk? The following risk factors make you more likely to develop preeclampsia: Being for the first time. Having had preeclampsia during a past . Having a family history of preeclampsia. Having high blood pressure. Being with more than one baby. Being 35 or older. Being -[place]. Having kidney disease or diabetes. Having medical conditions such as lupus or blood diseases. Being very overweight (obese). What are the signs or symptoms? The most common symptoms are: Severe headaches. Vision problems, such as blurred or double vision. Abdominal pain, especially upper abdominal pain. Other symptoms that may develop as the condition gets worse include: Sudden weight gain. Sudden swelling of the hands, face, legs, and feet. Severe nausea and vomiting. Numbness in the face, arms, legs, and feet. Dizziness. Urinating less than usual. Slurred speech. Convulsions or seizures. How is this diagnosed? There are no screening tests for preeclampsia. Your health care provider will ask you about symptoms and check for signs of preeclampsia during your visits. You may also have tests that include: Checking your blood pressure. Urine tests to check for protein. Your health care provider will check for this at every visit. Blood tests. Monitoring your baby's heart rate. Ultrasound. How is this treated? You and your health care provider will determine the treatment approach that is best for you. Treatment may include: Having more frequent exams to check for signs of preeclampsia, if you have an increased risk for preeclampsia. Medicine to lower your blood pressure. Staying in the hospital, if your condition is severe. There, treatment will focus on controlling your blood pressure and the amount of fluids in your body (fluid retention). Taking medicine (magnesium sulfate) to prevent seizures. This may be given as an injection or through an IV. Taking a low-dose aspirin during your . Delivering your baby early. You may have your labor started with medicine (induced), or you may have a delivery. Follow these instructions at home: Eating and drinking Drink enough fluid to keep your urine pale yellow. Avoid caffeine. Lifestyle Do not use any products that contain nicotine or tobacco, such as cigarettes and e-cigarettes. If you need help quitting, ask your health care provider. Do not use alcohol or drugs. Avoid stress as much as possible. Rest and get plenty of sleep. General instructions Take kyfh-rzd-vwnlodw and prescription medicines only as told by your health care provider. When lying down, lie on your left side. This keeps pressure off your major blood vessels. When sitting or lying down, raise (elevate) your feet. Try putting some pillows underneath your lower legs. Exercise regularly. Ask your health care provider what kinds of exercise are best for you. Keep all follow-up and visits as told by your health care provider. This is important. How is this prevented? There is no known way of preventing preeclampsia or eclampsia from developing. However, to lower your risk of complications and detect problems early: Get regular care. Your health care provider may be able to diagnose and treat the condition early. Maintain a healthy weight. Ask your health care provider for help managing weight gain during . Work with your health care provider to manage any long-term (chronic) health conditions you have, such as diabetes or kidney problems. You may have tests of your blood pressure and kidney function after giving . Your health care provider may have you take low-dose aspirin during your next . Contact a health care provider if: You have symptoms that your health care provider told you may require more treatment or monitoring, such as: ? Headaches. ? Nausea or vomiting. ? Abdominal pain. ? Dizziness. ? Light-headedness. Get help right away if: You have severe: ? Abdominal pain. ? Headaches that do not get better. ? Dizziness. ? Vision problems. ? Confusion. ? Nausea or vomiting. You have any of the following: ? A seizure. ? Sudden, rapid weight gain. ? Sudden swelling in your hands, ankles, or face. ? Trouble moving any part of your body. ? Numbness in any part of your body. ? Trouble speaking. ? Abnormal bleeding. You faint. Summary Preeclampsia is a serious condition that may develop during . This condition causes high blood pressure and increased protein in your urine along with other symptoms, such as headaches and vision changes. Diagnosing and treating preeclampsia early is very important. If not treated early, it can cause serious problems for you and your baby. Get help right away if you have symptoms that your health care provider told you to watch for. This information is not intended to replace advice given to you by your health care provider. Make sure you discuss any questions you have with your health care provider. Document Released: 01/28/2001 Document Revised: 10/03/2018 Document Reviewed: 09/06/2016 [employer]hips Patient Education 2020 [employer] Additional Information VACCINATE! IT SAVES LIVES! Members of the community who have not yet received the COVID-19 vaccine and would like to receive it can visit one of [facility] vaccine clinics. There are many vaccine clinic locations within the [facility]. For locations and available times, please visit [email or web address] [email or web address] It is important to note that some COVID mobile vaccine clinics are held outdoors and may be canceled in rainy or stormy conditions. To learn more about pediatric vaccinations (ages 5-11), we invite you to visit the [facility] webpage. [email or web address] [email or web address]-[email or web address] To learn more about the COVID-19 vaccine, we invite you to visit the CDC website for a list of frequently asked questions. https://www.cdc.gov/coronavirus/ 2019-ncov/vaccines/faq.html [facility] Patient Portal Access Instructions: Stay connected with your healthcare team and access your personal medical information anytime with the [facility] Patient Portal.If you would like a full copy of your medical records, please contact the [facility] Medical Records Department, Tuesday through Tuesday between 8a.m. and 4:30p.m. Please follow the directions below to access the portal: 1.Access the email account you provided upon registration to the hospital.2.Look for an invitation email from [facility].3.Open the email and access the invitation link: Accept Invitation to [employer]4.Fill in the required masterson to create your account. Sign into [email or web address] with your username and password that you created in the above steps to stay up to date. You can then view a summary of results, a summary of your visits, and the ability to download your summaries to your computer or send the information securely to a physician. Remember that your healthcare information is confidential, so carefully consider who you will allow to register on the [facility] Patient Portal for access to your information. You can also access the [facility] Patient Portal on the [employer] kasia. Simply click on Health Records under Health Data and then click on the [employer] logo. HOW TO SAFELY DISPOSE OF PRESCRIPTION MEDICATIONS Please use one of the following methods to safely dispose of your unused medications. 1.Use a drug disposal kit: the drug disposal pouch allows you to safely discard your old and unused drugs. Ask your nurse to give you one when you are discharged.2.Visit a local take-back location: Many local pharmacies and police departments have programs that collect old and unwanted prescription drugs. Call your local pharmacy or go to http://[employer]).Fluoresentric/3H4Wv0s to find one close to you.3.Make use of household items: Use cat litter or old coffee grounds to dispose medications if other options are not available. Mix your drugs with these household products, seal them in an airtight container and throw it into the garbage. Call [facility]: [phone] to be sure your drugs can be disposed of in this way. Some medicines may require a different approach.4.Never flush your medications down the toilet. IF YOU HAVE BEEN PRESCRIBED AN OPIOID FOR PAIN If you have been prescribed an opioid (such as hydrocodone, oxycodone or morphine), it is critical to understand the possible side effects and risks of opioid pain medications. Even when taken as directed, opioids can have several side effects including: Tolerance, meaning you might need to take more of a medication for the same pain relief. Nausea, vomiting and/or constipation. Sleepiness, dizziness, dry mouth, confusion, depression or itching. Physical dependence, meaning you have withdrawal symptoms when a medication is stopped, can develop within a few days. KNOW YOUR RESPONSIBILITIES It is important to know exactly how much and how often to take the opioid pain medications you are prescribed. Never take opioids in higher amounts or more often than prescribed. Do not combine opioids with alcohol or other drugs that cause drowsiness, such as benzodiazepines, also known as benzos, including diazepam and alprazolam, muscle relaxants or sleep aids. Never sell or share prescription opioids. This is illegal. Store opioids in a secure place and out of reach of others (including children, family, friends and visitors). The last page of this document has been signed and retained as a CHART COPY Signatures Patient Education Materials 7- Home Care Instructions After Delivery 03/2019 (CUSTOM) Preeclampsia and Eclampsia Medication Leaflets My discharge plan and instructions have been reviewed and explained to me and SB Hernandez KRISTINE R understand my current condition and have read and understand these discharge instructions. I have received a written copy of the plan/instructions. If I have questions, I am aware that I should contact my doctor. 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 Procedures: ( ) Spontaneous vaginal delivery ( ) Vacuum assisted vaginal delivery ( ) Forceps assisted vaginal delivery ( ) Vaginal delivery w/tubal ligation ( ) Episiotomy ( ) Primary Section (X ) Repeat Section ( ) Section w/tubal ligation ( ) D & C ( ) Blood patch ( ) Epidural Anesthesia ( ) Spinal Anesthesia ( ) Section w/hysterectomy Hospital Course: ( ) Uncomplicated ( X ) See progress notes Abnormal Lab/Test Value: ( ) None ( X ) See progress notes RH: ( ) N/A ( X ) Rh positive ( ) Rh neg ( ) Rhogam given Rubella: ( X ) Rubella immune ( ) Rubella iol-fqpidh-Jhvdgqy given ( ) Rubella xke-vpbvcn-Nnanurt declined Feeding Burks: (X ) Breast feeding ( ) Bottle feeding Consultations/referrals: ( ) None ( ) Social Service ( ) Home Health ( ) Genetics ( ) Perinatology ( ) Surgery ( ) Infectious Disease ( ) Nutrition ( ) Psychiatry ( X ) Anesthesiology ( ) Neurology ( ) Cardiology ( ) Endocrinology ( ) Pulmonology ( ) Other Disposition: Home Condition on Discharge: Stable Follow-up Care: See discharge instructions Other/Comments: Pt to make appointment in 6 weeks. Will complete 2hr GTT at 6 week visit. Digitally Signed by SHEILA VARMA MD on 02/23/2023 05:54 AM [facility] 02-23-2023 Note Date of Service 02/23/2023 OB Discharge Summary Discharge Diagnosis: ( X ) IUP ( ) Preeclampsia ( ) Eclampsia ( ) HELLP syndrome (X ) Gestational diabetes ( ) Chronic HTN ( X ) Other:Intrahepatic cholestasis of , GDMA2, Gestational thrombocytopenia, COVID positive this , History of preeclampsia, Class III obesity, Anemia, History of recurrent UTI this . Procedures: ( ) Spontaneous vaginal delivery ( ) Vacuum assisted vaginal delivery ( ) Forceps assisted vaginal delivery ( ) Vaginal delivery w/tubal ligation ( ) Episiotomy ( ) Primary Section (X ) Repeat Section ( ) Section w/tubal ligation ( ) D & C ( ) Blood patch ( ) Epidural Anesthesia ( ) Spinal Anesthesia ( ) Section w/hysterectomy Hospital Course: ( ) Uncomplicated ( X ) See progress notes Abnormal Lab/Test Value: ( ) None ( X ) See progress notes RH: ( ) N/A ( X ) Rh positive ( ) Rh neg ( ) Rhogam given Rubella: ( X ) Rubella immune ( ) Rubella jtv-tftuts-Ugasczq given ( ) Rubella qfx-fnddol-Wpchgqx declined Feeding Burks: (X ) Breast feeding ( ) Bottle feeding Consultations/referrals: ( ) None ( ) Social Service ( ) Home Health ( ) Genetics ( ) Perinatology ( ) Surgery ( ) Infectious Disease ( ) Nutrition ( ) Psychiatry ( X ) Anesthesiology ( ) Neurology ( ) Cardiology ( ) Endocrinology ( ) Pulmonology ( ) Other Disposition: Home Condition on Discharge: Stable Follow-up Care: See discharge instructions Other/Comments: Pt to make appointment in 6 weeks. Will complete 2hr GTT at 6 week visit. Digitally Signed by SHEILA VARMA MD on 02/23/2023 05:54 AM [facility] 02-21-2023 Anesthesiology Consult note Patient: LESTER INFANTE Age: 22 years Sex: Female : 2000 Associated Diagnoses: None Author: SAMARIA DUNN MD Assessment Postanesthesia assessment Vitals: Vital signs from flowsheet : Vital Signs 02/21/2023 15:43 EST Heart Rate Monitored 50 bpm LOW Respiratory Rate 18 br/min Systolic Blood Pressure Non-Invasive 138 mmHg Diastolic Blood Pressure Non-Invasive 83 mmHg 02/21/2023 15:15 EST Heart Rate Monitored 53 bpm LOW Respiratory Rate 15 br/min Systolic Blood Pressure Non-Invasive 145 mmHg HI Diastolic Blood Pressure Non-Invasive 94 mmHg HI 02/21/2023 15:00 EST Heart Rate Monitored 48 bpm LOW Respiratory Rate 20 br/min Systolic Blood Pressure Non-Invasive 123 mmHg Diastolic Blood Pressure Non-Invasive 79 mmHg 02/21/2023 14:45 EST Heart Rate Monitored 52 bpm LOW Respiratory Rate 18 br/min Systolic Blood Pressure Non-Invasive 135 mmHg Diastolic Blood Pressure Non-Invasive 91 mmHg HI 02/21/2023 14:30 EST Heart Rate Monitored 50 bpm LOW Respiratory Rate 14 br/min Systolic Blood Pressure Non-Invasive 101 mmHg Diastolic Blood Pressure Non-Invasive 84 mmHg 02/21/2023 14:15 EST Heart Rate Monitored 55 bpm LOW Respiratory Rate 20 br/min Systolic Blood Pressure Non-Invasive 128 mmHg Diastolic Blood Pressure Non-Invasive 74 mmHg 02/21/2023 13:55 EST Temperature Oral 36.5 DegC Heart Rate Monitored 50 bpm LOW Respiratory Rate 20 br/min Systolic Blood Pressure Non-Invasive 137 mmHg Diastolic Blood Pressure Non-Invasive 79 mmHg 02/21/2023 13:50 EST Heart Rate Monitored 65 bpm bpm Respiratory Rate - Anes 13 br/min br/min 02/21/2023 13:49 EST Systolic Blood Pressure Non-Invasive 119 mmHg mmHg Diastolic Blood Pressure Non-Invasive 75 mmHg mmHg 02/21/2023 13:46 EST Systolic Blood Pressure Non-Invasive 120 mmHg mmHg Diastolic Blood Pressure Non-Invasive 76 mmHg mmHg 02/21/2023 13:45 EST Heart Rate Monitored 74 bpm bpm Respiratory Rate - Anes 0 br/min br/min 02/21/2023 13:43 EST Systolic Blood Pressure Non-Invasive 133 mmHg mmHg Diastolic Blood Pressure Non-Invasive 80 mmHg mmHg 02/21/2023 13:40 EST Temperature (Route Not Specified) 36 DegC DegC Heart Rate Monitored 54 bpm bpm Respiratory Rate - Anes 22 br/min br/min Systolic Blood Pressure Non-Invasive 125 mmHg mmHg Diastolic Blood Pressure Non-Invasive 69 mmHg mmHg 02/21/2023 13:37 EST Systolic Blood Pressure Non-Invasive 123 mmHg mmHg Diastolic Blood Pressure Non-Invasive 82 mmHg mmHg 02/21/2023 13:35 EST Heart Rate Monitored 63 bpm bpm Respiratory Rate - Anes 15 br/min br/min 02/21/2023 13:33 EST Systolic Blood Pressure Non-Invasive 118 mmHg mmHg Diastolic Blood Pressure Non-Invasive 70 mmHg mmHg 02/21/2023 13:31 EST Systolic Blood Pressure Non-Invasive 121 mmHg mmHg Diastolic Blood Pressure Non-Invasive 72 mmHg mmHg 02/21/2023 13:30 EST Heart Rate Monitored 61 bpm bpm Respiratory Rate - Anes 21 br/min br/min 02/21/2023 13:27 EST Systolic Blood Pressure Non-Invasive 147 mmHg mmHg Diastolic Blood Pressure Non-Invasive 115 mmHg mmHg 02/21/2023 13:25 EST Heart Rate Monitored 69 bpm bpm Respiratory Rate - Anes 20 br/min br/min Systolic Blood Pressure Non-Invasive 133 mmHg mmHg Diastolic Blood Pressure Non-Invasive 55 mmHg mmHg 02/21/2023 13:21 EST Systolic Blood Pressure Non-Invasive 135 mmHg mmHg Diastolic Blood Pressure Non-Invasive 87 mmHg mmHg 02/21/2023 13:20 EST Heart Rate Monitored 79 bpm bpm Respiratory Rate - Anes 15 br/min br/min 02/21/2023 13:18 EST Systolic Blood Pressure Non-Invasive 124 mmHg mmHg Diastolic Blood Pressure Non-Invasive 94 mmHg mmHg 02/21/2023 13:15 EST Heart Rate Monitored 93 bpm bpm Respiratory Rate - Anes 22 br/min br/min Systolic Blood Pressure Non-Invasive 148 mmHg mmHg Diastolic Blood Pressure Non-Invasive 93 mmHg mmHg 02/21/2023 13:12 EST Systolic Blood Pressure Non-Invasive 135 mmHg mmHg Diastolic Blood Pressure Non-Invasive 93 mmHg mmHg 02/21/2023 13:10 EST Temperature (Route Not Specified) 36 DegC DegC Heart Rate Monitored 73 bpm bpm Respiratory Rate - Anes 18 br/min br/min Systolic Blood Pressure Non-Invasive 125 mmHg mmHg Diastolic Blood Pressure Non-Invasive 87 mmHg mmHg 02/21/2023 13:06 EST Systolic Blood Pressure Non-Invasive 140 mmHg mmHg Diastolic Blood Pressure Non-Invasive 88 mmHg mmHg 02/21/2023 13:05 EST Heart Rate Monitored 76 bpm bpm Respiratory Rate - Anes 19 br/min br/min 02/21/2023 13:04 EST Systolic Blood Pressure Non-Invasive 133 mmHg mmHg Diastolic Blood Pressure Non-Invasive 70 mmHg mmHg 02/21/2023 13:01 EST Systolic Blood Pressure Non-Invasive 137 mmHg mmHg Diastolic Blood Pressure Non-Invasive 71 mmHg mmHg 02/21/2023 13:00 EST Heart Rate Monitored 71 bpm bpm Respiratory Rate - Anes 24 br/min br/min 02/21/2023 12:58 EST Systolic Blood Pressure Non-Invasive 149 mmHg mmHg Diastolic Blood Pressure Non-Invasive 86 mmHg mmHg 02/21/2023 12:55 EST Heart Rate Monitored 65 bpm bpm Respiratory Rate - Anes 25 br/min br/min Systolic Blood Pressure Non-Invasive 149 mmHg mmHg Diastolic Blood Pressure Non-Invasive 79 mmHg mmHg 02/21/2023 12:52 EST Systolic Blood Pressure Non-Invasive 141 mmHg mmHg Diastolic Blood Pressure Non-Invasive 79 mmHg mmHg 02/21/2023 12:50 EST Heart Rate Monitored 51 bpm bpm Respiratory Rate - Anes 26 br/min br/min 02/21/2023 12:48 EST Systolic Blood Pressure Non-Invasive 132 mmHg mmHg Diastolic Blood Pressure Non-Invasive 85 mmHg mmHg 02/21/2023 12:45 EST Temperature (Route Not Specified) 36.5 DegC DegC Heart Rate Monitored 98 bpm bpm Respiratory Rate - Anes 23 br/min br/min Systolic Blood Pressure Non-Invasive 112 mmHg mmHg Diastolic Blood Pressure Non-Invasive 84 mmHg mmHg 02/21/2023 12:42 EST Systolic Blood Pressure Non-Invasive 105 mmHg mmHg Diastolic Blood Pressure Non-Invasive 73 mmHg mmHg 02/21/2023 12:40 EST Heart Rate Monitored 70 bpm bpm Respiratory Rate - Anes 22 br/min br/min 02/21/2023 12:39 EST Systolic Blood Pressure Non-Invasive 114 mmHg mmHg Diastolic Blood Pressure Non-Invasive 92 mmHg mmHg 02/21/2023 12:36 EST Systolic Blood Pressure Non-Invasive 132 mmHg mmHg Diastolic Blood Pressure Non-Invasive 95 mmHg mmHg 02/21/2023 12:35 EST Heart Rate Monitored 67 bpm bpm Respiratory Rate - Anes 14 br/min br/min 02/21/2023 12:33 EST Temperature (Route Not Specified) 36.5 DegC DegC Systolic Blood Pressure Non-Invasive 126 mmHg mmHg Diastolic Blood Pressure Non-Invasive 81 mmHg mmHg 02/21/2023 12:30 EST Respiratory Rate - Anes 0 br/min br/min 02/21/2023 12:27 EST Systolic Blood Pressure Non-Invasive 138 mmHg mmHg Diastolic Blood Pressure Non-Invasive 115 mmHg mmHg 02/21/2023 12:25 EST Respiratory Rate - Anes 0 br/min br/min 02/21/2023 12:21 EST Systolic Blood Pressure Non-Invasive 156 mmHg mmHg Diastolic Blood Pressure Non-Invasive 72 mmHg mmHg 02/21/2023 12:20 EST Respiratory Rate - Anes 0 br/min br/min 02/21/2023 12:15 EST Respiratory Rate - Anes 0 br/min br/min 02/21/2023 12:10 EST Respiratory Rate - Anes 0 br/min br/min Systolic Blood Pressure Non-Invasive 133 mmHg mmHg Diastolic Blood Pressure Non-Invasive 96 mmHg mmHg 02/21/2023 12:07 EST Systolic Blood Pressure Non-Invasive 136 mmHg mmHg Diastolic Blood Pressure Non-Invasive 109 mmHg mmHg 02/21/2023 11:04 EST Temperature Oral 36.6 DegC Heart Rate Monitored 74 bpm Respiratory Rate 18 br/min Systolic Blood Pressure Non-Invasive 137 mmHg Diastolic Blood Pressure Non-Invasive 75 mmHg . Mental status: at preoperative baseline. Respiratory function: respirations are non-labored. Respiratory support: none. CV function: Normal rate, Regular rhythm. Cardiovascular support: none. Pain: Post op control see nursing medication documentation. Nausea status: denies nausea. Postoperative hydration status: euvolemic. 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 Family's history: negative. History of Present Illness The patient presents for preanesthesia evaluation with Repeat C/S. Review of Systems Ear/Nose/Mouth/Throat: Negative except as documented in history of present illness. Respiratory: Covid during (02/03/23) - pt. states she is no longer having any sx. Cardiovascular: Negative except as documented in history of present illness. Gastrointestinal: Reflux. Genitourinary: Negative except as documented in history of present illness. Endocrine: GDMA2 - taking insulin; Obesity III (BMI 49); Cholestasis. Musculoskeletal: Negative except as documented in history of present illness. Integumentary: Negative except as documented in history of present illness. Neurologic: Hx of migraines. Reproductive: Para Scoring , Week's Gestation 37.1. Tubal: No. Health Status Allergies: Allergic Reactions (Selected) NKA, Allergies (1) ActiveReaction NKANone Documented Current medications: (Selected) Inpatient Medications Ordered Ancef: 3 gram(s), 80 mL, 240 mL/hr, IV Piggyback, PREOP pharm Bicitra: 30 mL, Oral, PREOP pharm Bolus LR 500 mL: 500 mL, IV Bolus, AsDirected, PRN: Other (see order comments) Dextrose 50% IV Push: 12.5 gram(s), 25 mL, IV Push, AsDirected, PRN: Hypoglycemia LR 1,000 mL: 125 mL/hr, Intravenous Oxytocin for IV (mL/hr) 20 unit(s) + LR Premix Diluent 1,000 mL: after delivery of placenta, see order comments, Intravenous Prescriptions Prescribed Alcohol Swabs: See Instructions, Check 4x/Day, 1 EA, 0 Refill(s) Alcohol Swabs: See Instructions, Check 4x/Day, 100 EA, 2 Refill(s) Blood Glucose Test Machine: See Instructions, Check 4x/Day, 1 EA, 0 Refill(s) Blood Glucose Test Machine: See Instructions, Check 4x/Day, 1 EA, 0 Refill(s) Blood Glucose Test Strips: See Instructions, Check 4x/Day, 1 EA, 0 Refill(s) Blood Glucose Test Strips: See Instructions, Check 4x/Day, 100 EA, 2 Refill(s) Blood Pressure Cuff: See Instructions, Check and Log Blood Pressure Daily, 1 EA, 0 Refill(s) Lancets: See Instructions, Check 4x/Day, 1 EA, 0 Refill(s) Lancets: See Instructions, Check 4x/Day, 100 EA, 2 Refill(s) Tylenol Extra Strength 500 mg oral tablet: 1,000 mg, 2 tab(s), Oral, q8hr, PRN: as needed for pain, 24 tab(s), 0 Refill(s) cyclobenzaprine 5 mg oral tablet: 5 mg, 1 tab(s), Oral, TID, for 3 day(s), 9 tab(s), 0 Refill(s) ursodiol 300 mg oral capsule: 300 mg, 1 cap(s), Oral, BID, for 30 day(s), 60 cap(s), 1 Refill(s) Documented Medications Documented Levemir 100 units/mL 10 mL vial: 28, Subcutaneous, qHS, 0 Refill(s) Pepcid 20 mg oral tablet: 20 mg, 1 tab(s), Oral, qDay, 30 tab(s), 0 Refill(s) PrenaPlus: 1 tab(s), Oral, qDay, 0 Refill(s) ferrous sulfate: 325 mg, Oral, 0 Refill(s) insulin detemir (Levemir) 100 units/mL subcutaneous solution: See Instructions, 0.28 Subcutaneous qHS, 0 Refill(s), Medications (6) Active Scheduled: (2) ceFAZolin bag 3 gram(s) 80 mL, IV Piggyback, PREOP pharm citric acid-sodium citrate 334 mg-500 mg/5 mL (30 mL) Torri UD 30 mL, Oral, PREOP pharm Continuous: (2) Lactated Ringers 1,000 mL 1,000 mL, Intravenous, 125 mL/hr Oxytocin 20 units in Lactated Ringers 1000 mL 20 unit(s) + LR Premix Diluent 1,000 mL 1,000 mL, Intravenous PRN: (2) dextrose 50% Solution Disp syringe 50 mL 12.5 gram(s) 25 mL, IV Push, AsDirected Lactated Ringers Injection 500 mL * Bolus * 500 mL, IV Bolus, AsDirected Problem list: Medical Abnormal uterine bleeding / SNOMED CT 0025495726 / Confirmed Amenorrhea / SNOMED CT 38873038 / Confirmed Anxiety / SNOMED CT 76622626 / Confirmed Anxiety / SNOMED CT 68459270 / Confirmed Body mass index 30+ - obesity / SNOMED CT 737125786 / Confirmed delivery delivered / SNOMED CT 375214481 / Confirmed Cholestasis of / SNOMED CT 927852775 / Confirmed Depression / SNOMED CT 403192932 / Confirmed GDM, class A2 / SNOMED CT 2773208719 / Confirmed Previous section / SNOMED CT 131896669 / Confirmed IUD check up / SNOMED CT 3798480271 / Confirmed Elevated liver enzymes / SNOMED CT 0380917495 / Confirmed Migraine / SNOMED CT 44241110 / Confirmed Encounter for supervision of normal in multigravida in third trimester / SNOMED CT 483608843 / Confirmed Encounter for supervision of normal in multigravida in first trimester / SNOMED CT 504050948 / Confirmed Encounter for supervision of normal in multigravida in second trimester / SNOMED CT 966849518 / Confirmed Encounter for general counseling and advice on contraceptive management / SNOMED CT 778470357 / Confirmed Encounter for IUD insertion / SNOMED CT 382369630 / Confirmed Encounter for IUD removal / SNOMED CT 839211752 / Confirmed exam / SNOMED CT 424123807 / Confirmed / SNOMED CT 306389984 / Confirmed Postop check / SNOMED CT 158436010 / Confirmed UTI symptoms / SNOMED CT 500687213 / Confirmed Urinary tract infection in / SNOMED CT 389470937 / Confirmed UTI in / SNOMED CT 257732824 / Confirmed, Active Problems (27) Abnormal uterine bleeding Amenorrhea Anxiety Anxiety Body mass index 30+ - obesity delivery delivered Cholestasis of COVID-19 Depression Elevated liver enzymes Encounter for general counseling and advice on contraceptive management Encounter for IUD insertion Encounter for IUD removal Encounter for supervision of normal in multigravida in first trimester Encounter for supervision of normal in multigravida in second trimester Encounter for supervision of normal in multigravida in third trimester GDM, class A2 Gestational diabetes IUD check up Migraine Postop check exam Previous section Urinary tract infection in UTI in UTI symptoms Histories Past Medical History: Resolved ([id number]): Onset on 02/25/2021 at 20 years. Resolved on 11/10/2021 at 20 years. ([id number]): Onset on 09/06/2019 at 18 years. Resolved on 06/06/2020 at 19 years. ([id number]): Onset on 10/16/2018 at 17 years. Resolved on 07/16/2019 at 18 years. ([id number]): Onset on 05/31/2016 at 15 years. Resolved in 2018 at 16 years. Kidney calculus ([id number]): Resolved. Family History: Cancer Paternal Uncle Comments: 01/23/2020 10:38 EST - Janny Nj LPN brain and lung Lupus Grandparent Breast cancer Grandparent Rheumatoid arthritis Grandparent Hypertension Grandparent Heart disease Grandparent Stroke Grandparent Mental illness Father Malignant tumor of lung Paternal Uncle Smoking Mother Grandparent HTN - Hypertension Father Diabetes Grandparent Procedure history: section ([id number]) on 11/10/2021 at 20 Years. delivery ([id number]) on 06/05/2020 at 19 Years. section ([id number]) on 07/16/2019 at 18 Years. delivery - delivered ([id number]) on 11/21/2017 at 16 Years. Social History Social & Psychosocial Habits Alcohol 01/26/2023Risk Assessment: Denies Alcohol Use 01/26/2023 Use: Never Substance Abuse 01/26/2023Risk Assessment: Denies Substance Abuse 01/26/2023 Use: Never Tobacco 01/26/2023 Tobacco Use: Never (less than 100 in l 01/26/2023Risk Assessment: No Risk Home/Environment 01/26/2023 Domestic Concerns None Nutrition/Health 01/26/2023 Type of diet: Diabetic, Regular Appetite Good Eating Difficulties None Sexual 01/26/2023 Sexually active: Yes Self described orientation: Straight or heterosexual What is your current gender identity? (Check all that apply) Identifies as female . Physical Examination Vital Signs(last 24 hrs) Last Charted BMI48.83 (FEB 21 10:34) Measurements from flowsheet : Measurements 02/21/2023 10:34 EST Height 160.0 cm Admission Weight 125 kg Dudley Body Weight 52.38 kg BSA Admission 2.22 Body Mass Index 48.83 kg/m2 Pain assessment: Self-reports no pain. General: Alert and oriented, No acute distress. Airway: Normal temporomandibular joint mobility, Normal mouth, Normal neck range of motion. Mallampati classification: III (soft palate, base of uvula visible). Head: Normocephalic, Atraumatic. Dentition Evaluation: Intact, Own teeth. Neck: Supple, Non-tender, Full range of motion. Respiratory: Respirations are non-labored. Cardiovascular: Normal rate, Regular rhythm. Gastrointestinal: . Musculoskeletal Normal range of motion. Normal strength. No tenderness. No swelling. Integumentary: Intact, Warm, Dry, [place]. Neurologic: Alert, Oriented, Normal sensory, Normal motor function. Review / Management Results review: No qualifying data available , Lab results 02/21/2023 10:36 EST Lactated Ringers Injection Begin Bag 1,000 mL mL 02/21/2023 10:35 EST CHG Preoperative Wash/Wipe Site specific wipe 02/21/2023 10:34 EST Height 160.0 cm Admission Weight 125 kg Dudley Body Weight 52.38 kg BSA Admission 2.22 Body Mass Index 48.83 kg/m2 Yes Admission Note-Nursing Patient History OB 02/21/2023 9:56 EST Lactated Ringers Injection Begin Bag 1,000 mL mL 02/21/2023 9:54 EST Forearm Right 02/21/2023 18 gauge Peripheral IV Activity: Insert new site Peripheral IV Dressing Condition: Clean, Dry, Intact Peripheral IV Dressing Activity: Applied, Transparent dressing Peripheral IV Line Status/Patency: Flushes easily, Continuous infusion Peripheral IV Site Condition: No complications Peripheral IV Equipment: Extension set, PRN Adaptor Peripheral IV Number of Attempts: 1 . Documentation reviewed: Current records, Reviewed prior records. Assessment and Plan [place] [employer] Anesthesiologists (ASA) physical status classification: Class III. Anesthetic Preoperative Plan Premedication: None. Anesthetic technique: Spinal. Regional: Spinal. Postoperative pain management: Per surgeon. Risks discussed: nausea, vomiting, headache, sore throat, dental injury, hypotension, allergic reaction, serious complications, PDPH, Infection, Bleeding, Nerve Damage. Informed consent: signed by patient. Notes: For spinal, discussed risks/ benefits; also discussed general anesthesia for unsucessful spinal or emergency; pt. agreeable to plan at this time. Beta Kacy: Beta Kacy Taken Within 24 Hrs: No. Digitally Signed by KARISSA GARCIA on 02/21/2023 10:45 AM [facility] 02-15-2023 Hospital Discharg e instructions Patient Education 02/15/2023 19:23:15 7 - Labor and Delivery Outpatient Instructions (CUSTOM) [facility] HOME-GOING INSTRUCTIONS _X_ You are to follow up with your physician in ___ days/weeks. ACTIVITY ___ Bedrest ___Activity as tolerated ___ No work/school for ___ days. ___Other PRESCRIPTION GIVEN ___Yes NAUSEA/VOMITING ___ Take small, frequent amounts of clear liquids. Avoid fruit juices and milk. ___ Increase fluid intake to a minimum of 8 ounces of fluid every hour while awake. ___ Soft diet. Rice, crackers, bananas, Jell-O, cooked carrots, applesauce. ___ [place] diet. Avoid caffeine, chocolate, alcohol, spiced/greasy foods. URINARY TRACT INFECTION ___ Drink 8-12 glasses of water every day. ___ Urinate frequently; do not limit fluids to reduce frequency of urination. ___ Call your physician if burning and frequency with urination returns after taking all your medication. ___ Call your physician if you have a temperature of 100.4 degrees Fahrenheit or higher. ___ Wipe from front to back. SIGNS OF PRE-ECLAMPSIA __x_ Severe heartburn. __x_ Persistent headache not relieved by Tylenol. __x_ Increased in swelling of face, hands and feet. x___ Blurred vision, double vision, or spots in the eyes. __x_ Persistent vomiting. _x__ *Convulsions or seizures. LABOR ___ Restrict activity. ___ Drink 8-12 glasses of water every day. ___ Urinate frequently ___ Pelvic rest. No sexual intercourse/ Call your physician if you experience: _x__ Increase in vaginal discharge, leaking fluid, or vaginal bleeding. _x__ More than 4, 5, or 6 contractions in one hour. __x_ Burning and frequency with urination. DECREASED MOVEMENT _x__ Lie down on your left side, drink some fluids and relax. Count the movements. You need to have 10 movements in 2 hours. __x_ If you do not feel the 10 movements, call your physician. OTHER _x__ After an exam you may experience some spotting or discharge. As long as it is not bright red and heavy like a period or continues to leak as if your water broke, it is to be expected. ___ LABOR Call your physician if you experience: _x__ Painful uterine contractions every2-3 ___ minutes for ___2 hours. __x_A gush or continuous trickle of watery discharge. COME TO THE HOSPITAL AND CALL PHYSICIAN IF: __x_ Your abdomen feels continually firm. __x_ *Bleeding is bright red and enough to saturate a pad in one hour or less. *Call 911 or go to the nearest Emergency Room for assistance. Form [id number] D: 01/22 Document Released: 01/31/2006 Document Revised: 01/20/2012 Document Reviewed: 01/31/2006 [facility] Follow Up Care 02/15/2023 13:29:22 With:SURESH VALERIO MD Address: [address] [place] [address] [place] [address]- [phone] When: Unknown Comments:Follow-up as scheduled [facility] 02-15-2023 Note Discharge Instructions Thank you for allowing [facility] to assist you with your healthcare needs. The following is important discharge information regarding your hospital visit. Your Care Team PHYSICIAN, NONE What to do next Follow Up Appointments Follow Up with SURESH VALERIO MD When Why: Follow-up as scheduled Where: [address] [place] [address] [place] [address]- [phone] Someone Will Contact You Regarding These Home Health Referrals No home referrals have been ordered for you. No one will call you. The Following Activity and Diet Have Been Ordered for You No qualifying data available. No qualifying data available. The Following Equipment Has Been Ordered for You No qualifying data available. The Following Treatments Have Been Arranged for You Discharge Labs No qualifying data available. Discharge Radiology No qualifying data available. Other Therapies No qualifying data available. Allergies NKA Medications Please ask your primary doctor or pharmacist before taking any other medication not listed, including over the counter drugs, herbal medications, vitamins and or supplements as they may interact with your home medications. What How Much When Why Instructions Last Dose Unchanged DME (Alcohol Swabs) See instructions Encounter for supervision of normal in multigravida in second trimester Previous section Check 4x/ Day Unchanged DME (Alcohol Swabs) See instructions Encounter for supervision of normal in multigravida in third trimester GDM, class A2 Check 4x/ Day Unchanged DME (Blood Glucose Test Machine) See instructions Encounter for supervision of normal in multigravida in third trimester GDM, class A2 Check 4x/ Day Unchanged DME (Blood Glucose Test Machine) See instructions Encounter for supervision of normal in multigravida in second trimester Previous section Check 4x/ Day Unchanged DME (Blood Glucose Test Strips) See instructions Encounter for supervision of normal in multigravida in third trimester GDM, class A2 Check 4x/ Day Unchanged DME (Blood Glucose Test Strips) See instructions Encounter for supervision of normal in multigravida in second trimester Previous section Check 4x/ Day Unchanged DME (Lancets) See instructions Encounter for supervision of normal in multigravida in second trimester Previous section Check 4x/ Day Unchanged DME (Lancets) See instructions Encounter for supervision of normal in multigravida in third trimester GDM, class A2 Check 4x/ Day Unchanged famotidine (Pepcid 20 mg oral tablet) 1 tab(s) by mouth Once a day Unchanged ferrous sulfate 325 Milligram by mouth Unchanged insulin detemir (Levemir) (insulin detemir (Levemir) 100 units/ mL subcutaneous solution) See instructions 0.28 Subcutaneous qHS Unchanged insulin detemir (Levemir) (Levemir 100 units/ mL 10 mL vial) 28 Subcutaneous Daily at bedtime Unchanged multivitamin, (PrenaPlus) 1 tab(s) by mouth Once a day Unchanged ursodiol (ursodiol 300 mg oral capsule) 1 cap by mouth Two (2) times a day Duration: 30 Days Please take this list to your next doctor s visit. Bring all medications you take, including over the counter medications, herbals and other supplements with you to your doctor s visit. Patients and families are reminded to discard old lists and to update any records with all medication providers or retail pharmacies. Education Materials [facility] HOME-GOING INSTRUCTIONS _X_ You are to follow up with your physician in ___ days/weeks. ACTIVITY ___ Bedrest ___Activity as tolerated ___ No work/school for ___ days. ___Other PRESCRIPTION GIVEN ___Yes NAUSEA/VOMITING ___ Take small, frequent amounts of clear liquids. Avoid fruit juices and milk. ___ Increase fluid intake to a minimum of 8 ounces of fluid every hour while awake. ___ Soft diet. Rice, crackers, bananas, Jell-O, cooked carrots, applesauce. ___ [place] diet. Avoid caffeine, chocolate, alcohol, spiced/greasy foods. URINARY TRACT INFECTION ___ Drink 8-12 glasses of water every day. ___ Urinate frequently; do not limit fluids to reduce frequency of urination. ___ Call your physician if burning and frequency with urination returns after taking all your medication. ___ Call your physician if you have a temperature of 100.4 degrees Fahrenheit or higher. ___ Wipe from front to back. SIGNS OF PRE-ECLAMPSIA __x_ Severe heartburn. __x_ Persistent headache not relieved by Tylenol. __x_ Increased in swelling of face, hands and feet. x___ Blurred vision, double vision, or spots in the eyes. __x_ Persistent vomiting. _x__ *Convulsions or seizures. LABOR ___ Restrict activity. ___ Drink 8-12 glasses of water every day. ___ Urinate frequently ___ Pelvic rest. No sexual intercourse/ Call your physician if you experience: _x__ Increase in vaginal discharge, leaking fluid, or vaginal bleeding. _x__ More than 4, 5, or 6 contractions in one hour. __x_ Burning and frequency with urination. DECREASED MOVEMENT _x__ Lie down on your left side, drink some fluids and relax. Count the movements. You need to have 10 movements in 2 hours. __x_ If you do not feel the 10 movements, call your physician. OTHER _x__ After an exam you may experience some spotting or discharge. As long as it is not bright red and heavy like a period or continues to leak as if your water broke, it is to be expected. ___ LABOR Call your physician if you experience: _x__ Painful uterine contractions every2-3 ___ minutes for ___2 hours. __x_A gush or continuous trickle of watery discharge. COME TO THE HOSPITAL AND CALL PHYSICIAN IF: __x_ Your abdomen feels continually firm. __x_ *Bleeding is bright red and enough to saturate a pad in one hour or less. *Call 911 or go to the nearest Emergency Room for assistance. Form [id number] D: 01/22 Document Released: 01/31/2006 Document Revised: 01/20/2012 Document Reviewed: 01/31/2006 ExitCare Patient Information 2012 [employer] [facility]. Additional Information VACCINATE! IT SAVES LIVES! Members of the community who have not yet received the COVID-19 vaccine and would like to receive it can visit one of [facility] vaccine clinics. There are many vaccine clinic locations within the [facility]. For locations and available times, please visit [email or web address] It is important to note that some COVID mobile vaccine clinics are held outdoors and may be canceled in rainy or stormy conditions. To learn more about pediatric vaccinations (ages 5-11), we invite you to visit the [facility] webpage. https://www.[facility].org/p ages/2473-Ddkjj-Tdtbsejmcwd-Freq fgzsha-Netjt-Bspjweaqq.html To learn more about the COVID-19 vaccine, we invite you to visit the CDC website for a list of frequently asked questions. https://www.cdc.gov/coronavirus/ 2019-ncov/vaccines/faq.html [facility] Patient Portal Access Instructions: Stay connected with your healthcare team and access your personal medical information anytime with the [facility] Patient Portal.If you would like a full copy of your medical records, please contact the [facility] Medical Records Department, Tuesday through Tuesday between 8a.m. and 4:30p.m. Please follow the directions below to access the portal: 1.Access the email account you provided upon registration to the [facility].2.Look for an invitation email from [facility].3.Open the email and access the invitation link: Accept Invitation to [facility] [employer]4.Fill in the required masterson to create your account. Sign into www.[employer] with your username and password that you created in the above steps to stay up to date. You can then view a summary of results, a summary of your visits, and the ability to download your summaries to your computer or send the information securely to a physician. Remember that your healthcare information is confidential, so carefully consider who you will allow to register on the [facility] Patient Portal for access to your information. You can also access the [facility] Patient Portal on the [employer]Vote. Simply click on Health Records under Health Data and then click on the [employer]Need logo. HOW TO SAFELY DISPOSE OF PRESCRIPTION MEDICATIONS Please use one of the following methods to safely dispose of your unused medications. 1.Use a drug disposal kit: the drug disposal pouch allows you to safely discard your old and unused drugs. Ask your nurse to give you one when you are discharged.2.Visit a local take-back location: Many local pharmacies and police departments have programs that collect old and unwanted prescription drugs. Call your local pharmacy or go to http://[employer]Fluoresentric/3R2Ad4h to find one close to you.3.Make use of household items: Use cat litter or old coffee grounds to dispose medications if other options are not available. Mix your drugs with these household products, seal them in an airtight container and throw it into the garbage. Call [facility]: [phone] to be sure your drugs can be disposed of in this way. Some medicines may require a different approach.4.Never flush your medications down the toilet. IF YOU HAVE BEEN PRESCRIBED AN OPIOID FOR PAIN If you have been prescribed an opioid (such as hydrocodone, oxycodone or morphine), it is critical to understand the possible side effects and risks of opioid pain medications. Even when taken as directed, opioids can have several side effects including: Tolerance, meaning you might need to take more of a medication for the same pain relief. Nausea, vomiting and/or constipation. Sleepiness, dizziness, dry mouth, confusion, depression or itching. Physical dependence, meaning you have withdrawal symptoms when a medication is stopped, can develop within a few days. KNOW YOUR RESPONSIBILITIES It is important to know exactly how much and how often to take the opioid pain medications you are prescribed. Never take opioids in higher amounts or more often than prescribed. Do not combine opioids with alcohol or other drugs that cause drowsiness, such as benzodiazepines, also known as benzos, including diazepam and alprazolam, muscle relaxants or sleep aids. Never sell or share prescription opioids. This is illegal. Store opioids in a secure place and out of reach of others (including children, family, friends and visitors). The last page of this document has been signed and retained as a CHART COPY Signatures Patient Education Materials 7 - Labor and Delivery Outpatient Instructions (CUSTOM) Medication Leaflets My discharge plan and instructions have been reviewed and explained to me and ISB KRISTINE R understand my current condition and have read and understand these discharge instructions. I have received a written copy of the plan/instructions. If I have questions, I am aware that I should contact my doctor. 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: Relationship to Patient: Witness Name/Signature: Date/Time: [facility] 02-15-2023 Evaluation + Plan note Diagnostic Tests PendingUrine Culture 02/15/23 Future Scheduled TestshCG, quantitative(AO) 07/04/22hCG, quantitative(AO) 07/06/22hCG, quantitative(AO) 07/08/22hCG, quantitative(AO) 07/10/22Antibody Screen Gel 08/26/22ABO/Rh Gel 08/26/22.Glucose 1 Hour 01/08/23.Glucose 2 Hour 01/08/23.Glucose 3 Hour 01/08/23Hepatitis B Surface Antigen 08/26/22Rapid Plasma Reagin Test 08/26/22Rubella Antibody 08/26/22Thyroid Stimulating Hormone 08/26/22Urine Culture 12/30/22Complete Blood Count 08/26/22Hepatitis C Antibody IgG 08/26/22Varicella Zoster Antibody 08/26/22US OB Limited 10/25/22 [facility] 02-12-2023 Hospital Discharg e instructions Patient Education 02/12/2023 15:32:35 7 - Labor and Delivery Outpatient Instructions (CUSTOM) [facility] OUTPATIENT HOME-GOING INSTRUCTIONS _X_ You are to follow up with your physician as scheduled. ACTIVITY ___ Bedrest _x__Activity as tolerated ___ No work/school for ___ days. ___Other PRESCRIPTION GIVEN ___Yes NAUSEA/VOMITING ___ Take small, frequent amounts of clear liquids. Avoid fruit juices and milk. ___ Increase fluid intake to a minimum of 8 ounces of fluid every hour while awake. ___ Soft diet. Rice, crackers, bananas, Jell-O, cooked carrots, applesauce. ___ [place] diet. Avoid caffeine, chocolate, alcohol, spiced/greasy foods. URINARY TRACT INFECTION ___ Drink 8-12 glasses of water every day. ___ Urinate frequently; do not limit fluids to reduce frequency of urination. ___ Call your physician if burning and frequency with urination returns after taking all your medication. ___ Call your physician if you have a temperature of 100.4 degrees Fahrenheit or higher. ___ Wipe from front to back. SIGNS OF PRE-ECLAMPSIA ___ Severe heartburn. ___ Persistent headache not relieved by Tylenol. ___ Increased in swelling of face, hands and feet. ___ Blurred vision, double vision, or spots in the eyes. ___ Persistent vomiting. ___ *Convulsions or seizures. LABOR ___ Restrict activity. ___ Drink 8-12 glasses of water every day. ___ Urinate frequently ___ Pelvic rest. No sexual intercourse/ Call your physician if you experience: _x__ Increase in vaginal discharge, leaking fluid, or vaginal bleeding. _x__ More than 4, 5, or 6 contractions in one hour. __x_ Burning and frequency with urination. DECREASED MOVEMENT __x_ Lie down on your left side, drink some fluids and relax. Count the movements. You need to have 10 movements in 2 hours. _x__ If you do not feel the 10 movements, call your physician. OTHER _x__ After an exam you may experience some spotting or discharge. As long as it is not bright red and heavy like a period or continues to leak as if your water broke, it is to be expected. LABOR Call your physician if you experience: _x_ Painful uterine contractions every _2-5__ minutes for _2-3__ hours. _x__A gush or continuous trickle of watery discharge. COME TO THE HOSPITAL AND CALL PHYSICIAN IF: _x__ Your abdomen feels continually firm. _x__ *Bleeding is bright red and enough to saturate a pad in one hour or less. *Call 911 or go to the nearest Emergency Room for assistance. Form [id number] D: 01/22 Document Released: 01/31/2006 Document Revised: 01/20/2012 Document Reviewed: 01/31/2006 ExitCare Patient Information 2012 [employer]. Follow Up Care 02/12/2023 12:24:40 With:[facility] Address: [address] [place] [address] (Mon-Fri from 8:30am - 5:00pm) [place] [id number]- Business (1) When: Unknown Comments:Follow-up as scheduled [facility] 02-12-2023 Note Discharge Instructions Thank you for allowing [facility] to assist you with your healthcare needs. The following is important discharge information regarding your hospital visit. Your Care Team PHYSICIAN, NONE What to do next Follow Up Appointments Follow Up with [facility] CLIN[facility] When Why: Follow-up as scheduled Where: [address] (Mon-Fri from 8:30am - 5:00pm) [place] [id number]- Business (1) Someone Will Contact You Regarding These Home Health Referrals No home referrals have been ordered for you. No one will call you. The Following Activity and Diet Have Been Ordered for You No qualifying data available. No qualifying data available. The Following Equipment Has Been Ordered for You No qualifying data available. The Following Treatments Have Been Arranged for You Discharge Labs No qualifying data available. Discharge Radiology No qualifying data available. Other Therapies No qualifying data available. Allergies NKA Medications Please ask your primary doctor or pharmacist before taking any other medication not listed, including over the counter drugs, herbal medications, vitamins and or supplements as they may interact with your home medications. What How Much When Why Instructions Last Dose Unchanged DME (Alcohol Swabs) See instructions Encounter for supervision of normal in multigravida in second trimester Previous section Check 4x/ Day Unchanged DME (Alcohol Swabs) See instructions Encounter for supervision of normal in multigravida in third trimester GDM, class A2 Check 4x/ Day Unchanged DME (Blood Glucose Test Machine) See instructions Encounter for supervision of normal in multigravida in third trimester GDM, class A2 Check 4x/ Day Unchanged DME (Blood Glucose Test Machine) See instructions Encounter for supervision of normal in multigravida in second trimester Previous section Check 4x/ Day Unchanged DME (Blood Glucose Test Strips) See instructions Encounter for supervision of normal in multigravida in third trimester GDM, class A2 Check 4x/ Day Unchanged DME (Blood Glucose Test Strips) See instructions Encounter for supervision of normal in multigravida in second trimester Previous section Check 4x/ Day Unchanged DME (Lancets) See instructions Encounter for supervision of normal in multigravida in second trimester Previous section Check 4x/ Day Unchanged DME (Lancets) See instructions Encounter for supervision of normal in multigravida in third trimester GDM, class A2 Check 4x/ Day Unchanged famotidine (Pepcid 20 mg oral tablet) 1 tab(s) by mouth Once a day Unchanged ferrous sulfate 325 Milligram by mouth Unchanged insulin detemir (Levemir) (insulin detemir (Levemir) 100 units/ mL subcutaneous solution) See instructions 0.28 Subcutaneous qHS Unchanged insulin detemir (Levemir) (Levemir 100 units/ mL 10 mL vial) 28 Subcutaneous Daily at bedtime Unchanged multivitamin, (PrenaPlus) 1 tab(s) by mouth Once a day Unchanged multivitamin, ( Multivitamins with Vitamin B Complex, Vitamin C, Minerals and L-Methylfolate oral capsule) 1 cap by mouth Every day Unchanged nirmatrelvir-ritonavir (Paxlovid 150 mg-100 mg Dose Pack oral tablet) 1 Packet(s) by mouth Two (2) times a day Duration: 5 Days Take 1 Packet = One 150mg nirmatrelvir tab and one 100mg ritonavir tab. 2 tablets to be taken together by mouth twice a day for 5 days Unchanged ursodiol (ursodiol 300 mg oral capsule) 1 cap by mouth Two (2) times a day Duration: 30 Days Please take this list to your next doctor s visit. Bring all medications you take, including over the counter medications, herbals and other supplements with you to your doctor s visit. Patients and families are reminded to discard old lists and to update any records with all medication providers or retail pharmacies. Education Materials [facility]IV[facility] OUTPATIENT HOME-GOING INSTRUCTIONS _X_ You are to follow up with your physician as scheduled. ACTIVITY ___ Bedrest _x__Activity as tolerated ___ No work/school for ___ days. ___Other PRESCRIPTION GIVEN ___Yes NAUSEA/VOMITING ___ Take small, frequent amounts of clear liquids. Avoid fruit juices and milk. ___ Increase fluid intake to a minimum of 8 ounces of fluid every hour while awake. ___ Soft diet. Rice, crackers, bananas, Jell-O, cooked carrots, applesauce. ___ [place] diet. Avoid caffeine, chocolate, alcohol, spiced/greasy foods. URINARY TRACT INFECTION ___ Drink 8-12 glasses of water every day. ___ Urinate frequently; do not limit fluids to reduce frequency of urination. ___ Call your physician if burning and frequency with urination returns after taking all your medication. ___ Call your physician if you have a temperature of 100.4 degrees Fahrenheit or higher. ___ Wipe from front to back. SIGNS OF PRE-ECLAMPSIA ___ Severe heartburn. ___ Persistent headache not relieved by Tylenol. ___ Increased in swelling of face, hands and feet. ___ Blurred vision, double vision, or spots in the eyes. ___ Persistent vomiting. ___ *Convulsions or seizures. LABOR ___ Restrict activity. ___ Drink 8-12 glasses of water every day. ___ Urinate frequently ___ Pelvic rest. No sexual intercourse/ Call your physician if you experience: _x__ Increase in vaginal discharge, leaking fluid, or vaginal bleeding. _x__ More than 4, 5, or 6 contractions in one hour. __x_ Burning and frequency with urination. DECREASED MOVEMENT __x_ Lie down on your left side, drink some fluids and relax. Count the movements. You need to have 10 movements in 2 hours. _x__ If you do not feel the 10 movements, call your physician. OTHER _x__ After an exam you may experience some spotting or discharge. As long as it is not bright red and heavy like a period or continues to leak as if your water broke, it is to be expected. LABOR Call your physician if you experience: _x_ Painful uterine contractions every _2-5__ minutes for _2-3__ hours. _x__A gush or continuous trickle of watery discharge. COME TO THE HOSPITAL AND CALL PHYSICIAN IF: _x__ Your abdomen feels continually firm. _x__ *Bleeding is bright red and enough to saturate a pad in one hour or less. *Call 911 or go to the nearest Emergency Room for assistance. Form [id number] D: 01/22 Document Released: 01/31/2006 Document Revised: 01/20/2012 Document Reviewed: 01/31/2006 [facility] [employer]. Additional Information VACCINATE! IT SAVES LIVES! Members of the community who have not yet received the COVID-19 vaccine and would like to receive it can visit one of [facility] vaccine clinics. There are many vaccine clinic locations within the [facility]. For locations and available times, please visit [email or web address] [email or web address] It is important to note that some COVID mobile vaccine clinics are held outdoors and may be canceled in rainy or stormy conditions. To learn more about pediatric vaccinations (ages 5-11), we invite you to visit the [facility] webpage. https://www.[facility].org/p ages/9407-Ybhiy-Biomsngxftl-Freq oobkru-Tlgap-Hmfhjirqt.html To learn more about the COVID-19 vaccine, we invite you to visit the CDC website for a list of frequently asked questions. https://www.cdc.gov/coronavirus/ 2019-ncov/vaccines/faq.html [facility] Patient Portal Access Instructions: Stay connected with your healthcare team and access your personal medical information anytime with the [facility] Patient Portal.If you would like a full copy of your medical records, please contact the [facility] Medical Records Department, Tuesday through Tuesday between 8a.m. and 4:30p.m. Please follow the directions below to access the portal: 1.Access the email account you provided upon registration to the hospital.2.Look for an invitation email from [facility].3.Open the email and access the invitation link: Accept Invitation to [facility]4.Fill in the required masterson to create your account. Sign into www.[employer] Mobile with your username and password that you created in the above steps to stay up to date. You can then view a summary of results, a summary of your visits, and the ability to download your summaries to your computer or send the information securely to a physician. Remember that your healthcare information is confidential, so carefully consider who you will allow to register on the [facility] Patient Portal for access to your information. You can also access the [facility] Patient Portal on the [employer] kasia. Simply click on Health Records under Health Data and then click on the [employer]Need logo. HOW TO SAFELY DISPOSE OF PRESCRIPTION MEDICATIONS Please use one of the following methods to safely dispose of your unused medications. 1.Use a drug disposal kit: the drug disposal pouch allows you to safely discard your old and unused drugs. Ask your nurse to give you one when you are discharged.2.Visit a local take-back location: Many local pharmacies and police departments have programs that collect old and unwanted prescription drugs. Call your local pharmacy or go to http://[employer] ([place]Fluoresentric/1V2Zg3v to find one close to you.3.Make use of household items: Use cat litter or old coffee grounds to dispose medications if other options are not available. Mix your drugs with these household products, seal them in an airtight container and throw it into the garbage. Call [facility]: [phone] to be sure your drugs can be disposed of in this way. Some medicines may require a different approach.4.Never flush your medications down the toilet. IF YOU HAVE BEEN PRESCRIBED AN OPIOID FOR PAIN If you have been prescribed an opioid (such as hydrocodone, oxycodone or morphine), it is critical to understand the possible side effects and risks of opioid pain medications. Even when taken as directed, opioids can have several side effects including: Tolerance, meaning you might need to take more of a medication for the same pain relief. Nausea, vomiting and/or constipation. Sleepiness, dizziness, dry mouth, confusion, depression or itching. Physical dependence, meaning you have withdrawal symptoms when a medication is stopped, can develop within a few days. KNOW YOUR RESPONSIBILITIES It is important to know exactly how much and how often to take the opioid pain medications you are prescribed. Never take opioids in higher amounts or more often than prescribed. Do not combine opioids with alcohol or other drugs that cause drowsiness, such as benzodiazepines, also known as benzos, including diazepam and alprazolam, muscle relaxants or sleep aids. Never sell or share prescription opioids. This is illegal. Store opioids in a secure place and out of reach of others (including children, family, friends and visitors). The last page of this document has been signed and retained as a CHART COPY Signatures Patient Education Materials 7 - Labor and Delivery Outpatient Instructions (CUSTOM) Medication Leaflets My discharge plan and instructions have been reviewed and explained to me and ISB KRISTINE R understand my current condition and have read and understand these discharge instructions. I have received a written copy of the plan/instructions. If I have questions, I am aware that I should contact my doctor. 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 gonorrhoeae PCR 02/12/23 Future Scheduled TestshCG, quantitative(AO) 07/04/22hCG, quantitative(AO) 07/06/22hCG, quantitative(AO) 07/08/22hCG, quantitative(AO) 07/10/22Antibody Screen Gel 08/26/22ABO/Rh Gel 08/26/22.Glucose 1 Hour 01/08/23.Glucose 2 Hour 01/08/23.Glucose 3 Hour 01/08/23Hepatitis B Surface Antigen 08/26/22Rapid Plasma Reagin Test 08/26/22Rubella Antibody 08/26/22Thyroid Stimulating Hormone 08/26/22Urine Culture 12/30/22Complete Blood Count 08/26/22Hepatitis C Antibody IgG 08/26/22Varicella Zoster Antibody 08/26/22US OB Limited 10/25/22 [facility] 02-10-2023 Hospital Discharg e instructions Patient Education 02/10/2023 09:15:32 7 - Labor and Delivery Outpatient Instructions(CUSTOM) [facility] DELIV[facility] OUTPATIENT HOME-GOING INSTRUCTIONS _X_ You are to follow up with your physician as scheduled. ACTIVITY ___ Bedrest _x__Activity as tolerated ___ No work/school for ___ days. ___Other PRESCRIPTION GIVEN ___Yes NAUSEA/VOMITING ___ Take small, frequent amounts of clear liquids. Avoid fruit juices and milk. ___ Increase fluid intake to a minimum of 8 ounces of fluid every hour while awake. ___ Soft diet. Rice, crackers, bananas, Jell-O, cooked carrots, applesauce. ___ [place] diet. Avoid caffeine, chocolate, alcohol, spiced/greasy foods. URINARY TRACT INFECTION ___ Drink 8-12 glasses of water every day. ___ Urinate frequently; do not limit fluids to reduce frequency of urination. ___ Call your physician if burning and frequency with urination returns after taking all your medication. ___ Call your physician if you have a temperature of 100.4 degrees Fahrenheit or higher. ___ Wipe from front to back. SIGNS OF PRE-ECLAMPSIA ___ Severe heartburn. ___ Persistent headache not relieved by Tylenol. ___ Increased in swelling of face, hands and feet. ___ Blurred vision, double vision, or spots in the eyes. ___ Persistent vomiting. ___ *Convulsions or seizures. LABOR _x__ Restrict activity. _x__ Drink 8-12 glasses of water every day. _x__ Urinate frequently ___ Pelvic rest. No sexual intercourse/ Call your physician if you experience: ___ Increase in vaginal discharge, leaking fluid, or vaginal bleeding. ___ More than 4, 5, or 6 contractions in one hour. ___ Burning and frequency with urination. DECREASED MOVEMENT _x__ Lie down on your left side, drink some fluids and relax. Count the movements. You need to have 10 movements in 2 hours. _x__ If you do not feel the 10 movements, call your physician. OTHER ___ After an exam you may experience some spotting or discharge. As long as it is not bright red and heavy like a period or continues to leak as if your water broke, it is to be expected. ___ LABOR Call your physician if you experience: ___ Painful uterine contractions every __ minutes for ___ hours. ___A gush or continuous trickle of watery discharge. COME TO THE HOSPITAL AND CALL PHYSICIAN IF: _x__ Your abdomen feels continually firm. _x__ *Bleeding is bright red and enough to saturate a pad in one hour or less. *Call 911 or go to the nearest Emergency Room for assistance. Form [id number] D: 01/22 Document Released: 01/31/2006 Document Revised: 01/20/2012 Document Reviewed: 01/31/2006 [facility] Patient Information 2012 [employer]. Follow Up Care 02/09/2023 08:20:51 With:[facility] Address: [address] [place] [address] (Tue-Tue from 8:30am - 5:00pm) [place] [address]- When: Unknown Comments:Follow-up as scheduled [facility] 02-10-2023 Note Discharge Instructions Thank you for allowing [facility] to assist you with your healthcare needs. The following is important discharge information regarding your hospital visit. Your Care Team PHYSICIAN, NONE What to do next Follow Up Appointments Follow Up with [facility] CLINIC When Why: Follow-up as scheduled Where: [address] [place] [address] (Mon-Tue from 8:30am - 5:00pm) [place] [address]- Someone Will Contact You Regarding These Home Health Referrals No home referrals have been ordered for you. No one will call you. The Following Activity and Diet Have Been Ordered for You Discharge Activity - Ordered -- Resume your pre-hospitalization activity, 02/10/23 8:48:00 EST Discharge Diet - Ordered -- No changes were made to your diet during your hospital stay. Please resume your pre hospitalization diet on discharge., 02/10/23 8:48:00 EST The Following Equipment Has Been Ordered for You No qualifying data available. The Following Treatments Have Been Arranged for You Discharge Labs No qualifying data available. Discharge Radiology No qualifying data available. Other Therapies No qualifying data available. Allergies NKA Medications Please ask your primary doctor or pharmacist before taking any other medication not listed, including over the counter drugs, herbal medications, vitamins and or supplements as they may interact with your home medications. What How Much When Why Instructions Last Dose New nirmatrelvir-ritonavir (Paxlovid 150 mg-100 mg Dose Pack oral tablet) 1 Packet(s) by mouth Two (2) times a day Duration: 5 Days Take 1 Packet = One 150mg nirmatrelvir tab and one 100mg ritonavir tab. 2 tablets to be taken together by mouth twice a day for 5 days Pickup at [facility] Changed ferrous sulfate 325 Milligram by mouth Unchanged DME (Alcohol Swabs) See instructions Encounter for supervision of normal in multigravida in second trimester Previous section Check 4x/ Day Unchanged DME (Alcohol Swabs) See instructions Encounter for supervision of normal in multigravida in third trimester GDM, class A2 Check 4x/ Day Unchanged DME (Blood Glucose Test Machine) See instructions Encounter for supervision of normal in multigravida in third trimester GDM, class A2 Check 4x/ Day Unchanged DME (Blood Glucose Test Machine) See instructions Encounter for supervision of normal in multigravida in second trimester Previous section Check 4x/ Day Unchanged DME (Blood Glucose Test Strips) See instructions Encounter for supervision of normal in multigravida in third trimester GDM, class A2 Check 4x/ Day Unchanged DME (Blood Glucose Test Strips) See instructions Encounter for supervision of normal in multigravida in second trimester Previous section Check 4x/ Day Unchanged DME (Lancets) See instructions Encounter for supervision of normal in multigravida in second trimester Previous section Check 4x/ Day Unchanged DME (Lancets) See instructions Encounter for supervision of normal in multigravida in third trimester GDM, class A2 Check 4x/ Day Unchanged famotidine (Pepcid 20 mg oral tablet) 1 tab(s) by mouth Once a day Unchanged insulin detemir (Levemir) (insulin detemir (Levemir) 100 units/ mL subcutaneous solution) See instructions 0.28 Subcutaneous qHS Unchanged insulin detemir (Levemir) (Levemir 100 units/ mL 10 mL vial) 24 unit(s) Subcutaneous Daily at bedtime Unchanged multivitamin, (PrenaPlus) 1 tab(s) by mouth Once a day Unchanged multivitamin, ( Multivitamins with Vitamin B Complex, Vitamin C, Minerals and L-Methylfolate oral capsule) 1 cap by mouth Every day Unchanged ursodiol (ursodiol 300 mg oral capsule) 1 cap by mouth Two (2) times a day Duration: 30 Days Pharmacy Information [facility]: [address] [place] [address] [phone] Please take this list to your next doctor s visit. Bring all medications you take, including over the counter medications, herbals and other supplements with you to your doctor s visit. Patients and families are reminded to discard old lists and to update any records with all medication providers or retail pharmacies. Education Materials [facility]IV[facility] OUTPATIENT HOME-GOING INSTRUCTIONS _X_ You are to follow up with your physician as scheduled. ACTIVITY ___ Bedrest _x__Activity as tolerated ___ No work/school for ___ days. ___Other PRESCRIPTION GIVEN ___Yes NAUSEA/VOMITING ___ Take small, frequent amounts of clear liquids. Avoid fruit juices and milk. ___ Increase fluid intake to a minimum of 8 ounces of fluid every hour while awake. ___ Soft diet. Rice, crackers, bananas, Jell-O, cooked carrots, applesauce. ___ [place] diet. Avoid caffeine, chocolate, alcohol, spiced/greasy foods. URINARY TRACT INFECTION ___ Drink 8-12 glasses of water every day. ___ Urinate frequently; do not limit fluids to reduce frequency of urination. ___ Call your physician if burning and frequency with urination returns after taking all your medication. ___ Call your physician if you have a temperature of 100.4 degrees Fahrenheit or higher. ___ Wipe from front to back. SIGNS OF PRE-ECLAMPSIA ___ Severe heartburn. ___ Persistent headache not relieved by Tylenol. ___ Increased in swelling of face, hands and feet. ___ Blurred vision, double vision, or spots in the eyes. ___ Persistent vomiting. ___ *Convulsions or seizures. LABOR _x__ Restrict activity. _x__ Drink 8-12 glasses of water every day. _x__ Urinate frequently ___ Pelvic rest. No sexual intercourse/ Call your physician if you experience: ___ Increase in vaginal discharge, leaking fluid, or vaginal bleeding. ___ More than 4, 5, or 6 contractions in one hour. ___ Burning and frequency with urination. DECREASED MOVEMENT _x__ Lie down on your left side, drink some fluids and relax. Count the movements. You need to have 10 movements in 2 hours. _x__ If you do not feel the 10 movements, call your physician. OTHER ___ After an exam you may experience some spotting or discharge. As long as it is not bright red and heavy like a period or continues to leak as if your water broke, it is to be expected. ___ LABOR Call your physician if you experience: ___ Painful uterine contractions every __ minutes for ___ hours. ___A gush or continuous trickle of watery discharge. COME TO THE HOSPITAL AND CALL PHYSICIAN IF: _x__ Your abdomen feels continually firm. _x__ *Bleeding is bright red and enough to saturate a pad in one hour or less. *Call 911 or go to the nearest Emergency Room for assistance. Form [id number] D: 01/22 Document Released: 01/31/2006 Document Revised: 01/20/2012 Document Reviewed: 01/31/2006 ExitCare Patient Information 2012 [employer]. Additional Information VACCINATE! IT SAVES LIVES! Members of the community who have not yet received the COVID-19 vaccine and would like to receive it can visit one of [facility] vaccine clinics. There are many vaccine clinic locations within the [facility]. For locations and available times, please visit [email or web address] It is important to note that some COVID mobile vaccine clinics are held outdoors and may be canceled in rainy or stormy conditions. To learn more about pediatric vaccinations (ages 5-11), we invite you to visit the [facility] webpage. https://www.[facility].org/p ages/8845-Jvvrn-Jpdwefghodo-Freq hgboih-Lbscm-Fmghwgbup.html To learn more about the COVID-19 vaccine, we invite you to visit the CDC website for a list of frequently asked questions. https://www.cdc.gov/coronavirus/ 2019-ncov/vaccines/faq.html [facility] [employer] Patient Portal Access Instructions: Stay connected with your healthcare team and access your personal medical information anytime with the [facility] Patient Portal.If you would like a full copy of your medical records, please contact the [facility] Medical Records Department, Tuesday through Tuesday between 8a.m. and 4:30p.m. Please follow the directions below to access the portal: 1.Access the email account you provided upon registration to the hospital.2.Look for an invitation email from [facility].3.Open the email and access the invitation link: Accept Invitation to [facility]4.Fill in the required masterson to create your account. Sign into [email or web address].[employer] with your username and password that you created in the above steps to stay up to date. You can then view a summary of results, a summary of your visits, and the ability to download your summaries to your computer or send the information securely to a physician. Remember that your healthcare information is confidential, so carefully consider who you will allow to register on the [facility] Patient Portal for access to your information. You can also access the [facility] [employer] [facility] Patient Portal on the [employer] kasia. Simply click on Health Records under Health Data and then click on the [employer]Need logo. HOW TO SAFELY DISPOSE OF PRESCRIPTION MEDICATIONS Please use one of the following methods to safely dispose of your unused medications. 1.Use a drug disposal kit: the drug disposal pouch allows you to safely discard your old and unused drugs. Ask your nurse to give you one when you are discharged.2.Visit a local take-back location: Many local pharmacies and police departments have programs that collect old and unwanted prescription drugs. Call your local pharmacy or go to http://[employer]Fluoresentric/5D9Ne4z to find one close to you.3.Make use of household items: Use cat litter or old coffee grounds to dispose medications if other options are not available. Mix your drugs with these household products, seal them in an airtight container and throw it into the garbage. Call [facility]: [phone] to be sure your drugs can be disposed of in this way. Some medicines may require a different approach.4.Never flush your medications down the toilet. IF YOU HAVE BEEN PRESCRIBED AN OPIOID FOR PAIN If you have been prescribed an opioid (such as hydrocodone, oxycodone or morphine), it is critical to understand the possible side effects and risks of opioid pain medications. Even when taken as directed, opioids can have several side effects including: Tolerance, meaning you might need to take more of a medication for the same pain relief. Nausea, vomiting and/or constipation. Sleepiness, dizziness, dry mouth, confusion, depression or itching. Physical dependence, meaning you have withdrawal symptoms when a medication is stopped, can develop within a few days. KNOW YOUR RESPONSIBILITIES It is important to know exactly how much and how often to take the opioid pain medications you are prescribed. Never take opioids in higher amounts or more often than prescribed. Do not combine opioids with alcohol or other drugs that cause drowsiness, such as benzodiazepines, also known as benzos, including diazepam and alprazolam, muscle relaxants or sleep aids. Never sell or share prescription opioids. This is illegal. Store opioids in a secure place and out of reach of others (including children, family, friends and visitors). The last page of this document has been signed and retained as a CHART COPY Signatures Patient Education Materials 7 - Labor and Delivery Outpatient Instructions(CUSTOM) Medication Leaflets My discharge plan and instructions have been reviewed and explained to me and ISB KRISTINE R understand my current condition and have read and understand these discharge instructions. I have received a written copy of the plan/instructions. If I have questions, I am aware that I should contact my doctor. 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 ___Other NAUSEA/VOMITING ___ Take small, frequent amounts of clear liquids. Avoid fruit juices and milk. ___ Increase fluid intake to a minimum of 8 ounces of fluid every hour while awake. ___ Soft diet. Rice, crackers, bananas, Jell-O, cooked carrots, applesauce. ___ [place] diet. Avoid caffeine, chocolate, alcohol, spiced/greasy foods. URINARY TRACT INFECTION ___ Drink 8-12 glasses of water every day. ___ Urinate frequently; do not limit fluids to reduce frequency of urination. ___ Call your physician if burning and frequency with urination returns after taking all your medication. ___ Call your physician if you have a temperature of 100.4 degrees Fahrenheit or higher. ___ Wipe from front to back. SIGNS OF PRE-ECLAMPSIA ___ Severe heartburn. ___ Persistent headache not relieved by Tylenol. ___ Increased in swelling of face, hands and feet. ___ Blurred vision, double vision, or spots in the eyes. ___ Persistent vomiting. ___ *Convulsions or seizures. LABOR ___ Restrict activity. ___ Drink 8-12 glasses of water every day. ___ Urinate frequently ___ Pelvic rest. No sexual intercourse/ Call your physician if you experience: _x__ Increase in vaginal discharge, leaking fluid, or vaginal bleeding. __x_ More than 4, 5, or 6 contractions in one hour. __x_ Burning and frequency with urination. DECREASED MOVEMENT _x__ Lie down on your left side, drink some fluids and relax. Count the movements. You need to have 10 movements in 2 hours. _x__ If you do not feel the 10 movements, call your physician. OTHER _x__ After an exam you may experience some spotting or discharge. As long as it is not bright red and heavy like a period or continues to leak as if your water broke, it is to be expected. ___ LABOR Call your physician if you experience: __x_ Painful uterine contractions every __3-5_ minutes for _1-2__ hours. ___A gush or continuous trickle of watery discharge. COME TO THE HOSPITAL AND CALL PHYSICIAN IF: ___ Your abdomen feels continually firm. ___ *Bleeding is bright red and enough to saturate a pad in one hour or less. *Call 911 or go to the nearest Emergency Room for assistance. Form [id number] D: 01/22 Document Released: 01/31/2006 Document Revised: 01/20/2012 Document Reviewed: 01/31/2006 ExitCare Patient Information 2012 [employer]. Follow Up Care 01/26/2023 09:39:51 With:OB, OB CLINIC Address: [address] [place] [address]- When: Unknown Comments:Follow-up as scheduled [facility] 01-26-2023 Note Discharge Instructions Thank you for allowing [facility] to assist you with your healthcare needs. The following is important discharge information regarding your hospital visit. Your Care Team PHYSICIAN, NONE What to do next Follow Up Appointments Follow Up with OB, OB CLINIC When Why: Follow-up as scheduled Where: [address] [place] [address]- Someone Will Contact You Regarding These Home Health Referrals No home referrals have been ordered for you. No one will call you. The Following Activity and Diet Have Been Ordered for You No qualifying data available. No qualifying data available. The Following Equipment Has Been Ordered for You No qualifying data available. The Following Treatments Have Been Arranged for You Discharge Labs No qualifying data available. Discharge Radiology No qualifying data available. Other Therapies No qualifying data available. Allergies NKA Medications Please ask your primary doctor or pharmacist before taking any other medication not listed, including over the counter drugs, herbal medications, vitamins and or supplements as they may interact with your home medications. What How Much When Why Instructions Last Dose Unchanged DME (Alcohol Swabs) See instructions Encounter for supervision of normal in multigravida in second trimester Previous section Check 4x/ Day Unchanged DME (Alcohol Swabs) See instructions Encounter for supervision of normal in multigravida in third trimester GDM, class A2 Check 4x/ Day Unchanged DME (Blood Glucose Test Machine) See instructions Encounter for supervision of normal in multigravida in third trimester GDM, class A2 Check 4x/ Day Unchanged DME (Blood Glucose Test Machine) See instructions Encounter for supervision of normal in multigravida in second trimester Previous section Check 4x/ Day Unchanged DME (Blood Glucose Test Strips) See instructions Encounter for supervision of normal in multigravida in third trimester GDM, class A2 Check 4x/ Day Unchanged DME (Blood Glucose Test Strips) See instructions Encounter for supervision of normal in multigravida in second trimester Previous section Check 4x/ Day Unchanged DME (Lancets) See instructions Encounter for supervision of normal in multigravida in second trimester Previous section Check 4x/ Day Unchanged DME (Lancets) See instructions Encounter for supervision of normal in multigravida in third trimester GDM, class A2 Check 4x/ Day Unchanged famotidine (Pepcid 20 mg oral tablet) 1 tab(s) by mouth Once a day Unchanged ferrous sulfate 325 Milligram by mouth Unchanged ferrous sulfate (ferrous sulfate 325 mg (65 mg elemental iron) oral delayed release tablet) 1 tab(s) by mouth Once a day Unchanged insulin detemir (Levemir) (Levemir 100 units/ mL 10 mL vial) 24 unit(s) Subcutaneous Daily at bedtime Unchanged insulin glargine (insulin glargine (Toujeo) (concentrated) 300 units/ mL subcutaneous solution) 60 unit(s) Subcutaneous Once a day Unchanged multivitamin, (PrenaPlus) 1 tab(s) by mouth Once a day Unchanged multivitamin, ( Multivitamins with Vitamin B Complex, Vitamin C, Minerals and L-Methylfolate oral capsule) 1 cap by mouth Every day Unchanged ursodiol (ursodiol 300 mg oral capsule) 1 cap by mouth Two (2) times a day Duration: 30 Days Please take this list to your next doctor s visit. Bring all medications you take, including over the counter medications, herbals and other supplements with you to your doctor s visit. Patients and families are reminded to discard old lists and to update any records with all medication providers or retail pharmacies. Education Materials [facility] AND DELIVERY OUTPATIENT HOME-GOING INSTRUCTIONS _X_ You are to follow up with your physician as scheduled ACTIVITY ___ Bedrest _x__Activity as tolerated ___ No work/school for ___ days. ___Other NAUSEA/VOMITING ___ Take small, frequent amounts of clear liquids. Avoid fruit juices and milk. ___ Increase fluid intake to a minimum of 8 ounces of fluid every hour while awake. ___ Soft diet. Rice, crackers, bananas, Jell-O, cooked carrots, applesauce. ___ [place] diet. Avoid caffeine, chocolate, alcohol, spiced/greasy foods. URINARY TRACT INFECTION ___ Drink 8-12 glasses of water every day. ___ Urinate frequently; do not limit fluids to reduce frequency of urination. ___ Call your physician if burning and frequency with urination returns after taking all your medication. ___ Call your physician if you have a temperature of 100.4 degrees Fahrenheit or higher. ___ Wipe from front to back. SIGNS OF PRE-ECLAMPSIA ___ Severe heartburn. ___ Persistent headache not relieved by Tylenol. ___ Increased in swelling of face, hands and feet. ___ Blurred vision, double vision, or spots in the eyes. ___ Persistent vomiting. ___ *Convulsions or seizures. LABOR ___ Restrict activity. ___ Drink 8-12 glasses of water every day. ___ Urinate frequently ___ Pelvic rest. No sexual intercourse/ Call your physician if you experience: _x__ Increase in vaginal discharge, leaking fluid, or vaginal bleeding. __x_ More than 4, 5, or 6 contractions in one hour. __x_ Burning and frequency with urination. DECREASED MOVEMENT _x__ Lie down on your left side, drink some fluids and relax. Count the movements. You need to have 10 movements in 2 hours. _x__ If you do not feel the 10 movements, call your physician. OTHER _x__ After an exam you may experience some spotting or discharge. As long as it is not bright red and heavy like a period or continues to leak as if your water broke, it is to be expected. ___ LABOR Call your physician if you experience: __x_ Painful uterine contractions every __3-5_ minutes for _1-2__ hours. ___A gush or continuous trickle of watery discharge. COME TO THE HOSPITAL AND CALL PHYSICIAN IF: ___ Your abdomen feels continually firm. ___ *Bleeding is bright red and enough to saturate a pad in one hour or less. *Call 911 or go to the nearest Emergency Room for assistance. Form [id number] D: 01/22 Document Released: 01/31/2006 Document Revised: 01/20/2012 Document Reviewed: 01/31/2006 ExitCare Patient Information 2012 [employer]. Additional Information VACCINATE! IT SAVES LIVES! Members of the community who have not yet received the COVID-19 vaccine and would like to receive it can visit one of [facility] vaccine clinics. There are many vaccine clinic locations within the [facility]. For locations and available times, please visit [email or web address] [email or web address] It is important to note that some COVID mobile vaccine clinics are held outdoors and may be canceled in rainy or stormy conditions. To learn more about pediatric vaccinations (ages 5-11), we invite you to visit the [facility] webpage. https://www.[facility].org/p ages/5424-Dzsoc-Bhhklgjckos-Freq ycozoo-Whudi-Fwkfcyykt.html To learn more about the COVID-19 vaccine, we invite you to visit the CDC website for a list of frequently asked questions. https://www.cdc.gov/coronavirus/ 2019-ncov/vaccines/faq.html [facility] Patient Portal Access Instructions: Stay connected with your healthcare team and access your personal medical information anytime with the [facility] [employer] Patient Portal.If you would like a full copy of your medical records, please contact the [facility] Medical Records Department, Tuesday through Tuesday between 8a.m. and 4:30p.m. Please follow the directions below to access the portal: 1.Access the email account you provided upon registration to the hospital.2.Look for an invitation email from [facility].3.Open the email and access the invitation link: Accept Invitation to [facility]4.Fill in the required masterson to create your account. Sign into www.[employer] with your username and password that you created in the above steps to stay up to date. You can then view a summary of results, a summary of your visits, and the ability to download your summaries to your computer or send the information securely to a physician. Remember that your healthcare information is confidential, so carefully consider who you will allow to register on the [facility] Patient Portal for access to your information. You can also access the [facility] Patient Portal on the [employer] kasia. Simply click on Health Records under Health Data and then click on the [employer] logo. HOW TO SAFELY DISPOSE OF PRESCRIPTION MEDICATIONS Please use one of the following methods to safely dispose of your unused medications. 1.Use a drug disposal kit: the drug disposal pouch allows you to safely discard your old and unused drugs. Ask your nurse to give you one when you are discharged.2.Visit a local take-back location: Many local pharmacies and police departments have programs that collect old and unwanted prescription drugs. Call your local pharmacy or go to http://[employer] ([place]Fluoresentric/1Q2Kx5x to find one close to you.3.Make use of household items: Use cat litter or old coffee grounds to dispose medications if other options are not available. Mix your drugs with these household products, seal them in an airtight container and throw it into the garbage. Call [facility]: [phone] to be sure your drugs can be disposed of in this way. Some medicines may require a different approach.4.Never flush your medications down the toilet. IF YOU HAVE BEEN PRESCRIBED AN OPIOID FOR PAIN If you have been prescribed an opioid (such as hydrocodone, oxycodone or morphine), it is critical to understand the possible side effects and risks of opioid pain medications. Even when taken as directed, opioids can have several side effects including: Tolerance, meaning you might need to take more of a medication for the same pain relief. Nausea, vomiting and/or constipation. Sleepiness, dizziness, dry mouth, confusion, depression or itching. Physical dependence, meaning you have withdrawal symptoms when a medication is stopped, can develop within a few days. KNOW YOUR RESPONSIBILITIES It is important to know exactly how much and how often to take the opioid pain medications you are prescribed. Never take opioids in higher amounts or more often than prescribed. Do not combine opioids with alcohol or other drugs that cause drowsiness, such as benzodiazepines, also known as benzos, including diazepam and alprazolam, muscle relaxants or sleep aids. Never sell or share prescription opioids. This is illegal. Store opioids in a secure place and out of reach of others (including children, family, friends and visitors). The last page of this document has been signed and retained as a CHART COPY Signatures Patient Education Materials 7 - Labor and Delivery Outpatient Instructions (CUSTOM) Medication Leaflets My discharge plan and instructions have been reviewed and explained to me and ISB KRISTINE R understand my current condition and have read and understand these discharge instructions. I have received a written copy of the plan/instructions. If I have questions, I am aware that I should contact my doctor. 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 gonorrhoeae PCR 01/26/23 Future Scheduled TestshCG, quantitative(AO) 07/04/22hCG, quantitative(AO) 07/06/22hCG, quantitative(AO) 07/08/22hCG, quantitative(AO) 07/10/22Antibody Screen Gel 08/26/22ABO/Rh Gel 08/26/22.Glucose 1 Hour 01/08/23.Glucose 2 Hour 01/08/23.Glucose 3 Hour 01/08/23Hepatitis B Surface Antigen 08/26/22Rapid Plasma Reagin Test 08/26/22Rubella Antibody 08/26/22Thyroid Stimulating Hormone 08/26/22Urine Culture 12/30/22Complete Blood Count 08/26/22Hepatitis C Antibody IgG 08/26/22Varicella Zoster Antibody 08/26/22US OB Limited 10/25/22 [facility] 01-13-2023 Evaluation + Plan note Extrac tony from: Title:Clinical Document Author:HOLLIS DUPREE, APURVA Paez Date:01/13/23 [facility] ADMISSION HISTORY AN D PHYSICIAL CHIEF COMPLAINT: 22-year-old 5 para 4 admitted at 32 weeks estimated gestational age for repeat labs and supervised fasting 3-hour GTT. HISTORY OF PRESENT ILLNESS: This is Ani's fifth with history of 4 prior sections. This has been complicated by early and then second trimester bleeding and cramping. This has resolved. She had an abnormal 1 hour GCT and could not tolerate the 3-hour GTT. She has had somewhat unreliable home glucose monitoring. She was placed on glyburide and afterwards developed abnormal liver function tests and this was stopped. She also had elevated conjugated bile acids which gives suspicion for possible cholestasis of . REVIEW OF SYSTEMS: ACTIVE PROBLEMS: (26) Abnormal uterine bleeding (1736770496) Amenorrhea (66301474) Anxiety (26994880) Anxiety (73641974) Body mass index 30+ - obesity (173130777) delivery delivered (662483053) Cholestasis of (135621017) Depression (653307389) Elevated liver enzymes (8071163105) Encounter for general counseling and advice on contraceptive management (166708320) Encounter for IUD insertion (420109741) Encounter for IUD removal (657122571) Encounter for supervision of normal in multigravida in first trimester (302022492) Encounter for supervision of normal in multigravida in second trimester (121946534) Encounter for supervision of normal in multigravida in third trimester (548431167) GDM, class A2 (5659783468) Gestational diabetes (86758164) IUD check up (2391854588) Migraine (73123346) Postop check (016702382) exam (006239128) (262062269) Previous section (691969991) Urinary tract infection in (793285986) UTI in (136871117) UTI symptoms (491711718) MEDICATIONS: Active Inpt Meds: None Active PRN Meds: None One Time Meds: None Active IV Meds: None ALLERGIES: (1) NKA FAMILY HISTORY: No significant family history pertaining to this admission SOCIAL HISTORY: Non-smoker, no alcohol use, no toxic habits lives with PHYSICAL EXAM: VITALS: XhpdjbNsaqHVQhqflQDLoP2OOR5PpuwJz(kg) 01/12 21:0536.8--06817--KQ38/45995.2 24 Hr Tmax: 36.8 at 01/12 21:05 36 Hr Tmax: 36.8 at 01/12 21:05 Vital Signs are the last 5 in the past 48 hours. Weights display the last 5 within 7 days. Initial Wt: 01/12 118.2 kg 260 lb Current Wt: 01/12 118.2 kg 260 lb GENERAL: Appears well HEENT: Normocephalic CARDIOVASCULAR: Regular rate and rhythm normal blood pressure RESPIRATORY: Clear bilaterally ABDOMEN: Gravid consistent with dating vertex presentation EXREMETIES: No significant edema NEUROLOGICAL: Intact PSYCHIATRIC: No signs of acute depression or anxiety LABS: 36hr Labs 01/12 2126 Blood Glucose, Helvpsdvj601F Blood Glucose, Impmyhoup719E Time of Stated Blood Glucose0:[id number]:0.131400:126:0 01/13 2116 Creatinine Lvl (s)0.63 Albumin Level2.3L Alk Khir496I Bili Total0.5 BUN5L Calcium Lvl8.5 Yeewacgc604 CO225 Glucose Kmhmv260C Potassium Level3.5 Sodium Gfldl735 Total Protein7.0 BUN/Creatinine Ratio8 Globulin4.7 A/G Ratio0.5L AST/SGOT35 ALT/XVSH45U Electrolyte Anwzqce30.0 GFR Non- Jknyohca268 GFR Jnjbbudw620 01/12 2103 Blood Type, ExtSee Flowsheet Rubella, ExternSee Flowsheet HIV Antibodies,See Flowsheet Group B Strep,See Flowsheet Hepatitis B, ExSee Flowsheet Hepatitis B Date Performed1:[id number]:0.263507:0:0 RPR, ExternalSee Flowsheet DIAGNOSTICS: Reassuring NST IMPRESSION: Admitted for observed fasting prior to 3-hour GTT and plan for 3- hour GTT this morning. Liver function tests are improved today. ALT is still elevated. Bile acids will be pending. PLAN: May be discharged home after 3-hour GTT. Plan for home glucose monitoring and yesterday brought her home glucose monitor with her which seem to match up with value that was done with labor and delivery glucose fingerstick machine. She has a follow-up MFM appointment tomorrow and would anticipate that she will most likely be placed on insulin at that time. Future Appointments Appointment Date:01/17/2023 09:00:00 AM Scheduled Provider:APURVA SINGH MD Location:[facility] Appointment Type:[facility] OB Routine Follow Up Diagnostic Tests Pending * Bile Acids, Fractionated LCMS 01/12/23 Future Scheduled Tests Laboratory* hCG, quantitative(AO) 07/04/22 * hCG, quantitative(AO) 07/06/22 * hCG, quantitative(AO) 07/08/22 * hCG, quantitative(AO) 07/10/22 * Antibody Screen Gel 08/26/22 * ABO/Rh Gel 08/26/22 * .Glucose 1 Hour 01/08/23 * .Glucose 2 Hour 01/08/23 * .Glucose 3 Hour 01/08/23 * Hepatitis B Surface Antigen 08/26/22 * Rapid Plasma Reagin Test 08/26/22 * Rubella Antibody 08/26/22 * Thyroid Stimulating Hormone 08/26/22 * Urine Culture 12/30/22 * Complete Blood Count 08/26/22 * Hepatitis C Antibody IgG 08/26/22 * Varicella Zoster Antibody 08/26/22 Radiology* US OB Limited 10/25/22 [facility] 11-30-2023 Hospital Discharge instructions Patient Education 01/13/2023 09:54:39 7 - Labor and Delivery Outpatient Instructions (CUSTOM) [facility] OUTPATIENT HOME-GOING INSTRUCTIONS _X_ You are to follow up with your physician in ___ days/weeks. ACTIVITY ___ Bedrest _X__Activity as tolerated ___ No work/school for ___ days. ___Other PRESCRIPTION GIVEN ___Yes NAUSEA/VOMITING ___ Take small, frequent amounts of clear liquids. Avoid fruit juices and milk. ___ Increase fluid intake to a minimum of 8 ounces of fluid every hour while awake. ___ Soft diet. Rice, crackers, bananas, Jell-O, cooked carrots, applesauce. ___ [place] diet. Avoid caffeine, chocolate, alcohol, spiced/greasy foods. URINARY TRACT INFECTION ___ Drink 8-12 glasses of water every day. ___ Urinate frequently; do not limit fluids to reduce frequency of urination. ___ Call your physician if burning and frequency with urination returns after taking all your medication. ___ Call your physician if you have a temperature of 100.4 degrees Fahrenheit or higher. ___ Wipe from front to back. SIGNS OF PRE-ECLAMPSIA ___ Severe heartburn. ___ Persistent headache not relieved by Tylenol. ___ Increased in swelling of face, hands and feet. ___ Blurred vision, double vision, or spots in the eyes. ___ Persistent vomiting. ___ *Convulsions or seizures. LABOR ___ Restrict activity. ___ Drink 8-12 glasses of water every day. ___ Urinate frequently ___ Pelvic rest. No sexual intercourse/ Call your physician if you experience: _X__ Increase in vaginal discharge, leaking fluid, or vaginal bleeding. _X__ More than 4, 5, or 6 contractions in one hour. _X__ Burning and frequency with urination. DECREASED MOVEMENT _X__ Lie down on your left side, drink some fluids and relax. Count the movements. You need to have 10 movements in 2 hours. __X_ If you do not feel the 10 movements, call your physician. OTHER ___ After an exam you may experience some spotting or discharge. As long as it is not bright red and heavy like a period or continues to leak as if your water broke, it is to be expected. ___ LABOR Call your physician if you experience: _X__ Painful uterine contractions every __5_ minutes for _1__ hours. _X__A gush or continuous trickle of watery discharge. COME TO THE HOSPITAL AND CALL PHYSICIAN IF: _X__ Your abdomen feels continually firm. __X_ *Bleeding is bright red and enough to saturate a pad in one hour or less. *Call 911 or go to the nearest Emergency Room for assistance. Form [id number] D: 01/22 Document Released: 01/31/2006 Document Revised: 01/20/2012 Document Reviewed: 01/31/2006 [facility] Patient Information 2012 [employer]. Follow Up Care 01/12/2023 20:45:05 With:HOLLIS DUPREE, APURVA Paez Address: [address] [place] [address] [place] [address]- [phone] When: Unknown Comments:Follow-up as scheduled [facility] 11-30-2023 Note [facility] ADMISSION HISTORY AND PHYSICIAL CHIEF COMPLAINT: 22-year-old 5 para 4 admitted at 32 weeks estimated gestational age for repeat labs and supervised fasting 3-hour GTT. HISTORY OF PRESENT ILLNESS: This is Ani's fifth with history of 4 prior sections. This has been complicated by early and then second trimester bleeding and cramping. This has resolved. She had an abnormal 1 hour GCT and could not tolerate the 3-hour GTT. She has had somewhat unreliable home glucose monitoring. She was placed on glyburide and afterwards developedabnormal liver function tests and this was stopped. She also had elevated conjugated bile acids which gives suspicion for possible cholestasis of . REVIEW OF SYSTEMS: ACTIVE PROBLEMS: (26) Abnormal uterine bleeding (0239533886) Amenorrhea (66099195) Anxiety (88207213) Anxiety (46216831) Body mass index 30+ - obesity (304353077) delivery delivered (474081482) Cholestasis of (493435073) Depression (888581220) Elevated liver enzymes (8743137081) Encounter for general counseling and advice on contraceptive management (632825313) Encounter for IUD insertion (868170898) Encounter for IUD removal (916492243) Encounter for supervision of normal in multigravida in first trimester (095456900) Encounter for supervision of normal in multigravida in second trimester (474964698) Encounter for supervision of normal in multigravida in third trimester (394377089) GDM, class A2 (6560001129) Gestational diabetes (02581213) IUD check up (6634390343) Migraine (56047778) Postop check (077605825) exam (747296013) (060351171) Previous section (416115555) Urinary tract infection in (986879482) UTI in (526742237) UTI symptoms (494381627) MEDICATIONS: Active Inpt Meds: None Active PRN Meds: None One Time Meds: None Active IV Meds: None ALLERGIES: (1) NKA FAMILY HISTORY: No significant family history pertaining to this admission SOCIAL HISTORY: Non-smoker, no alcohol use, no toxic habits lives with PHYSICAL EXAM: VITALS: NzgywlGandYYGbqkxURSzD6DZT3KmqeDp(kg) 01/12 21:0536.8--51786--RI49/69215.2 24 Hr Tmax: 36.8 at 01/12 21:05 36 Hr Tmax: 36.8 at 01/12 21:05 Vital Signs are the last 5 in the past 48 hours. Weights display the last 5 within 7 days. Initial Wt: 01/12 118.2 kg 260 lb Current Wt: 01/12 118.2 kg 260 lb GENERAL: Appears well HEENT: Normocephalic CARDIOVASCULAR: Regular rate and rhythm normal blood pressure RESPIRATORY: Clear bilaterally ABDOMEN: Gravid consistent with dating vertex presentation EXREMETIES: No significant edema NEUROLOGICAL: Intact PSYCHIATRIC: No signs of acute depression or anxiety LABS: 36hr Labs 01/126 Blood Glucose, Wwtvihswr289N Blood Glucose, Gznyoxrrh267Q Time of Stated Blood Glucose0:[id number]:0.170079:126:0 01/13 2116 Creatinine Lvl (s)0.63 Albumin Level2.3L Alk Xnqt098V Bili Total0.5 BUN5L Calcium Lvl8.5 Zkocfdkj249 CO225 Glucose Ridcc660I Potassium Level3.5 Sodium Vyadm510 Total Protein7.0 BUN/Creatinine Ratio8 Globulin4.7 A/G Ratio0.5L AST/SGOT35 ALT/FKRZ27H Electrolyte Fzoqzge97.0 GFR Non- Yuifvepp569 GFR Kstezbdw731 01/12 2103 Blood Type, ExtSee Flowsheet Rubella, ExternSee Flowsheet HIV Antibodies,See Flowsheet Group B Strep,See Flowsheet Hepatitis B, ExSee Flowsheet Hepatitis B Date Performed1:[id number]:0.704749:0:0 RPR, ExternalSee Flowsheet DIAGNOSTICS: Reassuring NST IMPRESSION: Admitted for observed fasting prior to 3-hour GTT and plan for 3- hour GTT this morning.Liver function tests are improved today. ALT is still elevated. Bile acids will be pending. PLAN: May be discharged home after 3-hour GTT. Plan for home glucose monitoring and yesterday brought her home glucose monitor with her which seem to match up with value that was done with labor and delivery glucose fingerstick machine. She has a follow-up MFM appointment tomorrow and would anticipate that she will most likely be placed on insulin at that time. Digitally Signed by APURVA SINGH MD on 01/13/2023 08:45 AM [facility]11-02-2023 Hospital Discharge instructions Patient Education 12/16/2022 11:21:19 7 - Labor and Delivery Outpatient Instructions (CUSTOM) [facility] OUTPATIENT HOME-GOING INSTRUCTIONS _X_ You are to follow up with your physician in ___ days/weeks. ACTIVITY ___ Bedrest __x_Activity as tolerated ___ No work/school for ___ days. ___Other PRESCRIPTION GIVEN ___Yes NAUSEA/VOMITING ___ Take small, frequent amounts of clear liquids. Avoid fruit juices and milk. ___ Increase fluid intake to a minimum of 8 ounces of fluid every hour while awake. ___ Soft diet. Rice, crackers, bananas, Jell-O, cooked carrots, applesauce. ___ [place] diet. Avoid caffeine, chocolate, alcohol, spiced/greasy foods. URINARY TRACT INFECTION ___ Drink 8-12 glasses of water every day. ___ Urinate frequently; do not limit fluids to reduce frequency of urination. ___ Call your physician if burning and frequency with urination returns after taking all your medication. ___ Call your physician if you have a temperature of 100.4 degrees Fahrenheit or higher. ___ Wipe from front to back. SIGNS OF PRE-ECLAMPSIA ___ Severe heartburn. ___ Persistent headache not relieved by Tylenol. ___ Increased in swelling of face, hands and feet. ___ Blurred vision, double vision, or spots in the eyes. ___ Persistent vomiting. ___ *Convulsions or seizures. LABOR ___ Restrict activity. ___ Drink 8-12 glasses of water every day. ___ Urinate frequently ___ Pelvic rest. No sexual intercourse/ Call your physician if you experience: __x_ Increase in vaginal discharge, leaking fluid, or vaginal bleeding. __x_ More than 4, 5, or 6 contractions in one hour. ___x Burning and frequency with urination. DECREASED MOVEMENT __x_ Lie down on your left side, drink some fluids and relax. Count the movements. You need to have 10 movements in 2 hours. ___ If you do not feel the 10 movements, call your physician. OTHER __x_ After an exam you may experience some spotting or discharge. As long as it is not bright red and heavy like a period or continues to leak as if your water broke, it is to be expected. ___ LABOR Call your physician if you experience: __x_ Painful uterine contractions every _6__ minutes for _1__ hours. __x_A gush or continuous trickle of watery discharge. COME TO THE HOSPITAL AND CALL PHYSICIAN IF: __x_ Your abdomen feels continually firm. _x__ *Bleeding is bright red and enough to saturate a pad in one hour or less. *Call 911 or go to the nearest Emergency Room for assistance. Form [id number] D: 01/22 Document Released: 01/31/2006 Document Revised: 01/20/2012 Document Reviewed: 01/31/2006 [employer] Patient Information 2012 [employer]. Follow Up Care 12/16/2022 10:52:39 With:APURVA SINGH MD Address: [address] [place] [address] [facility] [place] [address]- [phone] When: Unknown Comments:Follow-up as scheduled [facility] 10-19-2023 Hospital Discharge instructions Patient Education 12/02/2022 14:19:39 7 - Labor and Delivery Outpatient Instructions (CUSTOM) [facility] OUTPATIENT HOME-GOING INSTRUCTIONS _X_ You are to follow up with your physician in ___ days/weeks. ACTIVITY ___ Bedrest __x_Activity as tolerated ___ No work/school for ___ days. ___Other PRESCRIPTION GIVEN ___Yes NAUSEA/VOMITING ___ Take small, frequent amounts of clear liquids. Avoid fruit juices and milk. ___ Increase fluid intake to a minimum of 8 ounces of fluid every hour while awake. ___ Soft diet. Rice, crackers, bananas, Jell-O, cooked carrots, applesauce. ___ [place] diet. Avoid caffeine, chocolate, alcohol, spiced/greasy foods. URINARY TRACT INFECTION ___ Drink 8-12 glasses of water every day. ___ Urinate frequently; do not limit fluids to reduce frequency of urination. ___ Call your physician if burning and frequency with urination returns after taking all your medication. ___ Call your physician if you have a temperature of 100.4 degrees Fahrenheit or higher. ___ Wipe from front to back. SIGNS OF PRE-ECLAMPSIA ___ Severe heartburn. ___ Persistent headache not relieved by Tylenol. ___ Increased in swelling of face, hands and feet. ___ Blurred vision, double vision, or spots in the eyes. ___ Persistent vomiting. ___ *Convulsions or seizures. LABOR ___ Restrict activity. ___ Drink 8-12 glasses of water every day. ___ Urinate frequently ___ Pelvic rest. No sexual intercourse/ Call your physician if you experience: __x_ Increase in vaginal discharge, leaking fluid, or vaginal bleeding. __x_ More than 4, 5, or 6 contractions in one hour. ___x Burning and frequency with urination. DECREASED MOVEMENT __x_ Lie down on your left side, drink some fluids and relax. Count the movements. You need to have 10 movements in 2 hours. __x_ If you do not feel the 10 movements, call your physician. OTHER ___ After an exam you may experience some spotting or discharge. As long as it is not bright red and heavy like a period or continues to leak as if your water broke, it is to be expected. ___ LABOR Call your physician if you experience: __x_ Painful uterine contractions every _6__ minutes for _1__ hours. _x__A gush or continuous trickle of watery discharge. COME TO THE HOSPITAL AND CALL PHYSICIAN IF: __x_ Your abdomen feels continually firm. __x_ *Bleeding is bright red and enough to saturate a pad in one hour or less. *Call 911 or go to the nearest Emergency Room for assistance. Form [id number] D: 01/22 Document Released: 01/31/2006 Document Revised: 01/20/2012 Document Reviewed: 01/31/2006 [facility] Patient Information 2012 [employer]. Follow Up Care 12/02/2022 11:23:21 With:APURVA SINGH MD Address: [address] [place] [address] [facility] [place] [address]- [phone] When: Unknown Comments:Follow-up as scheduled [facility] 10-19-2023 Note OB consultation/progress note: Lester presented to labor and delivery today with complaints of crampy contraction-like pains, vaginal bleeding, and some dizziness and lightheadedness at home. She initially was seen in [facility] ER and was monitored with a monitor for short period of time and then discharged. She states that the bleeding started last night and that she had enough blood to remind her of the normal. But also with some passage of clots. There has been good movement. She is currently approximately 23 weeks estimated gestational age. Over the last 3 weeks she has experienced similar episodes. care is remarkable for a history of 4 previous sections. Also was thought to have a low- lying placenta on her 20-week ultrasound. On exam today a speculum exam reveals no vaginal or cervical bleeding. A transvaginal ultrasound was performed and the cervix measures 4.5 cm in length and appears closed with no funneling. A placenta previa is not appreciated. Fetus is in breech presentation and good movement is appreciated. Given that she is experiencing this cramping every6 to 8 minutes will give 2 doses of terbutaline to help relax her uterus. I do not feel that she isan imminent threat of labor. Digitally Signed by APURVA SINGH MD on 12/02/2022 01:24 PM [facility]10-11-2023 Hospital Discharge instructions Patient Education 11/24/2022 10:25:46 [place] L&D Outpatient Instructions (AORN) [facility] DELIV[facility] OUTPATIENT HOME-GOING INSTRUCTIONS _X_ You are to follow up with your physician in ___ days/weeks. ACTIVITY ___ Bedrest _X__Activity as tolerated ___ No work/school for ___ days. ___Other PRESCRIPTION GIVEN ___Yes NAUSEA/VOMITING ___ Take small, frequent amounts of clear liquids. Avoid fruit juices and milk. ___ Increase fluid intake to a minimum of 8 ounces of fluid every hour while awake. ___ Soft diet. Rice, crackers, bananas, Jell-O, cooked carrots, applesauce. ___ [place] diet. Avoid caffeine, chocolate, alcohol, spiced/greasy foods. URINARY TRACT INFECTION ___ Drink 8-12 glasses of water every day. ___ Urinate frequently; do not limit fluids to reduce frequency of urination. ___ Call your physician if burning and frequency with urination returns after taking all your medication. ___ Call your physician if you have a temperature of 100.4 degrees Fahrenheit or higher. ___ Wipe from front to back. SIGNS OF PRE-ECLAMPSIA ___ Severe heartburn. ___ Persistent headache not relieved by Tylenol. ___ Increased in swelling of face, hands and feet. ___ Blurred vision, double vision, or spots in the eyes. ___ Persistent vomiting. ___ *Convulsions or seizures. LABOR ___ Restrict activity. _X__ Drink 8-12 glasses of water every day. _X__ Urinate frequently ___ Pelvic rest. No sexual intercourse/ Call your physician if you experience: _X__ Increase in vaginal discharge, leaking fluid, or vaginal bleeding. _X__ More than 4, 5, or 6 contractions in one hour. _X__ Burning and frequency with urination. DECREASED MOVEMENT _X__ Lie down on your left side, drink some fluids and relax. Count the movements. You need to have 10 movements in 2 hours. _X__ If you do not feel the 10 movements, call your physician. OTHER ___ After an exam you may experience some spotting or discharge. As long as it is not bright red and heavy like a period or continues to leak as if your water broke, it is to be expected. ___ LABOR Call your physician if you experience: ___ Painful uterine contractions every ___ minutes for ___ hours. ___A gush or continuous trickle of watery discharge. COME TO THE HOSPITAL AND CALL PHYSICIAN IF: ___ Your abdomen feels continually firm. ___ *Bleeding is bright red and enough to saturate a pad in one hour or less. *Call 911 or go to the nearest Emergency Room for assistance. Form D: 01/22 Follow Up Care 11/24/2022 09:25:42 With:MARYJANE AVILA MD Address: [address] [place] [facility] [place] [address]- [phone] When: only if needed [facility] 09-29-2023 Hospital Discharge instructions Patient Education 11/12/2022 14:40:14 7 - Labor and Delivery Outpatient Instructions(CUSTOM) [facility] OUTPATIENT HOME-GOING INSTRUCTIONS _X_ You are to follow up with your physician in _3__ days/weeks. ACTIVITY ___ Bedrest _X__Activity as tolerated ___ No work/school for ___ days. ___Other PRESCRIPTION GIVEN ___Yes NAUSEA/VOMITING ___ Take small, frequent amounts of clear liquids. Avoid fruit juices and milk. ___ Increase fluid intake to a minimum of 8 ounces of fluid every hour while awake. ___ Soft diet. Rice, crackers, bananas, Jell-O, cooked carrots, applesauce. ___ [place] diet. Avoid caffeine, chocolate, alcohol, spiced/greasy foods. URINARY TRACT INFECTION _X__ Drink 8-12 glasses of water every day. _X__ Urinate frequently; do not limit fluids to reduce frequency of urination. _X__ Call your physician if burning and frequency with urination returns after taking all your medication. _X__ Call your physician if you have a temperature of 100.4 degrees Fahrenheit or higher. _X__ Wipe from front to back. SIGNS OF PRE-ECLAMPSIA ___ Severe heartburn. ___ Persistent headache not relieved by Tylenol. ___ Increased in swelling of face, hands and feet. ___ Blurred vision, double vision, or spots in the eyes. ___ Persistent vomiting. ___ *Convulsions or seizures. LABOR ___ Restrict activity. _X__ Drink 8-12 glasses of water every day. _X__ Urinate frequently ___ Pelvic rest. No sexual intercourse/ Call your physician if you experience: _X__ Increase in vaginal discharge, leaking fluid, or vaginal bleeding. _X__ More than 4, 5, or 6 contractions in one hour. _X__ Burning and frequency with urination. DECREASED MOVEMENT _X__ Lie down on your left side, drink some fluids and relax. Count the movements. You need to have 10 movements in 2 hours. _X__ If you do not feel the 10 movements, call your physician. OTHER _X__ After an exam you may experience some spotting or discharge. As long as it is not bright red and heavy like a period or continues to leak as if your water broke, it is to be expected. ___ LABOR Call your physician if you experience: _X__ Painful uterine contractions every _5__ minutes for __1_ hours. _X__A gush or continuous trickle of watery discharge. COME TO THE HOSPITAL AND CALL PHYSICIAN IF: _X__ Your abdomen feels continually firm. __X_ *Bleeding is bright red and enough to saturate a pad in one hour or less. *Call 911 or go to the nearest Emergency Room for assistance. Form [id number] D: 01/22 Document Released: 01/31/2006 Document Revised: 01/20/2012 Document Reviewed: 01/31/2006 [facility] Patient Information 2012 [employer]. Follow Up Care 11/12/2022 09:42:52 With:MARYJANE AVILA MD Address: [address] [place] [address] [facility] [place] [address]- [phone] When:11/15/2022 14:40:00 [facility] 09-29-2023 Note Date of Service 11/12/22 History of Present Illness 21 yo @ 22.5 here for contractions. She started having some spotting and contractions on Tuesday night, seen in ER in [place] and given abx for suspected UTI. Contractions worsened and she was seen her last night, given a dose of terbutaline which resolved contractions until 0300 today. Contractions then returned up to q 7-8 minutes at 7/10 in intensity. Normal + FM no large gushes or fluid or abnormal discharge. She has spotting noted with wiping since then, low lying placenta noted on US. She was given IVF bolus here and had normal cervical length US. Contractions are now sporadic q 5-10 minutes up to 5/10 in intensity. Shes had 4 prior CS (last at 36.6 for distress not labor) UA wnl CL: 4.6 cm live intrauterine hr 161 bpm posterior and low lying placenta cultures obtained, will call w abnormals Physical Exam Vitals and Measurements T: 36.9 C (Oral) HR: 91(Monitored) RR: 18 BP: 116/62 HT: 160 cm WT: 122 kg BMI: 47.66 Weight Dosing Weight: 122 kg (11/12/22) General: well groomed, well developed female who appears stated age Neuro: alert and oriented CN II-XII grossly intact Psych: pleasant mood, normal affect HEENT: NC/AT EOMI, Extremities: warm dry and intact, no clubbing, cyanosis or edema present. no rashes, varicosities, scars. no visible tattoos or piercings. Lab Results No 36 Hour Lab Data Assessment/Plan contractions CL reassuring cervix closed on abx for UTI offered 24 hr observation vs expectant mgmt at home w nifedipine for bothersome cxn follow up on tuesday return if contractions become bothersome or q 7 minutes again Orders: NIFEdipine, Dose : 10 mg = 1 cap(s), Oral, TID, take 3 caps for loading dose followed by 1 cap oralq 8 hours for contractions, # 18 cap(s), 0 Refill(s), [facility]acy: [id number], 160, cm, 11/12/22 9:56:00 EDT, Height, kg, 11/12/22 9:56:00 EDT, Dosing We... Affirm Pathogens DNA Direct Probe Chlamydia trachomatis PCR Communication Order (continuous) Discharge Discharge Activity Discharge Diet Monitoring N. gonorrhoeae PCR Vital Signs Vital Signs Call Parameters Problem List/Past Medical History Ongoing Abnormal uterine bleeding Amenorrhea Anxiety Anxiety Body mass index 30+ - obesity delivery delivered Depression Encounter for general counseling and advice on contraceptive management Encounter for IUD insertion Encounter for IUD removal Encounter for supervision of normal in multigravida in first trimester Encounter for supervision of normal in multigravida in second trimester Encounter for supervision of normal in multigravida in third trimester IUD check up Migraine Postop check exam Previous section UTI symptoms Historical Kidney calculus Procedure/Surgical History section: 11/10/21 delivery: 06/05/20 section: 07/16/19 Medications Inpatient No active inpatient medications Home Keflex, 500 mg, Oral, BID Maxalt 10 mg oral tablet, 10 mg= 1 tab(s), Oral, q2h, PRN, 1 refills NIFEdipine 10 mg oral capsule, 10 mg= 1 cap(s), Oral, TID Multivitamins with Vitamin B Complex, Vitamin C, Minerals and L- Methylfolate oral capsule,1 cap(s), Oral, Daily Protonix 40 mg oral enteric coated tablet, 40 mg= 1 tab(s), Oral, qDay, 5 refills Allergies NKA Social History Smoking Status - 11/16/2017 Never smoker Alcohol - Denies Alcohol Use, 07/25/2017 Use: Never., 06/26/2019 Home/Environment Domestic Concerns: None., 07/16/2019 Nutrition/Health Type of diet: Regular. Appetite Good. Eating Difficulties None., 07/16/2019 Sexual Sexually active: Yes. Self described orientation: Straight or heterosexual. Gender Identity: Identifies as female., 07/16/2019 Substance Abuse - Denies Substance Abuse, 07/25/2017 Use: Never., 06/26/2019 Tobacco - No Risk, 06/14/2021 Nicotine Use: Never (less than 100 in lifetime)., 06/26/2019 Family History Breast cancer: Grandparent. Cancer: Paternal Uncle. Diabetes: Grandparent. HTN - Hypertension: Father. Heart disease: Grandparent. Hypertension: Grandparent. Lupus: Grandparent. Malignant tumor of lung: Paternal Uncle. Mental illness: Father. Rheumatoid arthritis: Grandparent. Smoking: Mother and Grandparent. Stroke: Grandparent. Sister: History is negative Brother: History is negative Immunizations No qualifying data available. Digitally Signed by MARYJANE AVILA MD on 11/12/2022 02:47 PM [facility]09-29-2023 Evaluation + Plan noteExtracted from: Title:Consult Note Author:MARYJANE AVILA MD [place] e:11/12/22 contractions CL reassuring cervix closed on abx for UTI offered 24 hr observation vs expectant mgmt at home w nifedipine for bothersome cxn follow up on tuesday return if contractions become bothersome or q 7 minutes again Orders: NIFEdipine, Dose : 10 mg = 1 cap(s), Oral, TID, take 3 caps for loading dose followed by 1 cap oral q 8 hours for contractions, # 18 cap(s), 0 Refill(s), Pharmacy: [facility] #[id number], 160, cm, 11/12/22 9:56:00 EDT, Height, kg, 11/12/22 9:56:00 EDT, Dosing We... Affirm Pathogens DNA Direct Probe Chlamydia trachomatis PCR Communication Order (continuous) Discharge Discharge Activity Discharge Diet Monitoring N. gonorrhoeae PCR Vital Signs Vital Signs Call Parameters Future Appointments Appointment Date:11/22/2022 10:45:00 AM Scheduled Provider:HOLLIS DUPREE, APURVA Paez Location:[facility] Appointment Type: OV OB Routine Follow Up Diagnostic Tests Pending * Affirm Pathogens DNA Direct Probe 11/12/22 Future Scheduled Tests Laboratory* hCG, quantitative(AO) 07/04/22 * hCG, quantitative(AO) 07/06/22 * hCG, quantitative(AO) 07/08/22 * hCG, quantitative(AO) 07/10/22 * Antibody Screen Gel 08/26/22 * ABO/Rh Gel 08/26/22 * Hepatitis B Surface Antigen 08/26/22 * Rapid Plasma Reagin Test 08/26/22 * Rubella Antibody 08/26/22 * Thyroid Stimulating Hormone 08/26/22 * Complete Blood Count 08/26/22 * Hepatitis C Antibody IgG 08/26/22 * Varicella Zoster Antibody 08/26/22 Radiology* US OB Limited 10/25/22 [facility] 09-29-2023 Hospital Discharge instructions Patient Education 11/11/2022 22:50:03 [place] [facility] Outpatient Instructions (AORN) [facility] OUTPATIENT HOME-GOING INSTRUCTIONS _X_ You are to follow up with your physician in ___ days/weeks. ACTIVITY ___ Bedrest ___Activity as tolerated ___ No work/school for ___ days. ___Other PRESCRIPTION GIVEN ___Yes NAUSEA/VOMITING ___ Take small, frequent amounts of clear liquids. Avoid fruit juices and milk. ___ Increase fluid intake to a minimum of 8 ounces of fluid every hour while awake. ___ Soft diet. Rice, crackers, bananas, Jell-O, cooked carrots, applesauce. ___ [place] diet. Avoid caffeine, chocolate, alcohol, spiced/greasy foods. URINARY TRACT INFECTION ___ Drink 8-12 glasses of water every day. ___ Urinate frequently; do not limit fluids to reduce frequency of urination. ___ Call your physician if burning and frequency with urination returns after taking all your medication. ___ Call your physician if you have a temperature of 100.4 degrees Fahrenheit or higher. ___ Wipe from front to back. SIGNS OF PRE-ECLAMPSIA ___ Severe heartburn. ___ Persistent headache not relieved by Tylenol. ___ Increased in swelling of face, hands and feet. ___ Blurred vision, double vision, or spots in the eyes. ___ Persistent vomiting. ___ *Convulsions or seizures. LABOR _x__ Restrict activity. _x__ Drink 8-12 glasses of water every day. __x_ Urinate frequently _x__ Pelvic rest. No sexual intercourse/ Call your physician if you experience: ___ Increase in vaginal discharge, leaking fluid, or vaginal bleeding. ___ More than 4, 5, or 6 contractions in one hour. ___ Burning and frequency with urination. DECREASED MOVEMENT ___ Lie down on your left side, drink some fluids and relax. Count the movements. You need tohave 10 movements in 2 hours. ___ If you do not feel the 10 movements, call your physician. OTHER ___ After an exam you may experience some spotting or discharge. As long as it is not bright red and heavy like a period or continues to leak as if your water broke, it is to be expected. ___ LABOR Call your physician if you experience: ___ Painful uterine contractions every ___ minutes for ___ hours. ___A gush or continuous trickle of watery discharge. COME TO THE HOSPITAL AND CALL PHYSICIAN IF: ___ Your abdomen feels continually firm. ___ *Bleeding is bright red and enough to saturate a pad in one hour or less. *Call 911 or go to the nearest Emergency Room for assistance. Form D: 01/22 Follow Up Care 11/11/2022 19:21:37 With:HOLLIS DUPREE, APURVA Paez Address: [address] [place] [address] [facility] [place] [address]- [phone] When: Unknown Comments:CALL TOMORROW TO SCHEDULE AN APPOINTMENT FOR Tuesday11/15/22 [facility] 07-13-2023 Evaluation + Plan note Future Scheduled Tests Laboratory* Antibody Screen Gel 08/26/22 * ABO/Rh Gel 08/26/22 * .Glucose 1 Hour 01/08/23 * .Glucose 2 Hour 01/08/23 * .Glucose 3 Hour 01/08/23 * Hepatitis B Surface Antigen 08/26/22 * Rapid Plasma Reagin Test 08/26/22 * Rubella Antibody 08/26/22 * Thyroid Stimulating Hormone 08/26/22 * Urine Culture 12/30/22 * Complete Blood Count 08/26/22 * Hepatitis C Antibody IgG 08/26/22 * Varicella Zoster Antibody 08/26/22 Radiology* US OB Limited 10/25/22 [facility] 05-21-2023 Evaluation + Plan note Future Scheduled Tests Laboratory* hCG, quantitative(AO) 07/04/22 * hCG, quantitative(AO) 07/06/22 * hCG, quantitative(AO) 07/08/22 * hCG, quantitative(AO) 07/10/22 [facility] 05-21-2023 Evaluation + Plan note Future Scheduled Tests Laboratory* hCG, quantitative(AO) 07/04/22 * hCG, quantitative(AO) 07/06/22 * hCG, quantitative(AO) 07/08/22 * hCG, quantitative(AO) 07/10/22 * Antibody Screen Gel 08/26/22 * ABO/Rh Gel 08/26/22 * .Glucose 1 Hour 01/08/23 * .Glucose 2 Hour 01/08/23 * .Glucose 3 Hour 01/08/23 * Hepatitis B Surface Antigen 08/26/22 * Rapid Plasma Reagin Test 08/26/22 * Rubella Antibody 08/26/22 * Thyroid Stimulating Hormone 08/26/22 * Urine Culture 12/30/22 * Complete Blood Count 08/26/22 * Hepatitis C Antibody IgG 08/26/22 * Varicella Zoster Antibody 08/26/22 Radiology* US OB Limited 10/25/22 [facility] 09-29-2022 Hospital Discharge instructions Patient Education 11/12/2021 07:50:30 7b- Depression and Blues (11/2019)(CUSTOM) [place] Depression and Blues All mothers are at risk of developing depression or the blues. These mood changes can occur right after giving , or they may occur many months after giving . blues or depression can be mild or severe. Additionally, depression can goaway rather quickly, or it can be a long-term condition. CAUSES Raised hormone levels and the rapid drop in those levels are thought to be a main cause of depression and blues. A number of hormones change during and after . Estrogenand progesterone usually decrease right after delivery. The levels of thyroid hormone and various cortisol steroids also rapidly drop. Other factors that play a role in these mood changes include major life events and genetics. RISK FACTORS If you have any of the following risks for blues or depression, know what symptoms to watch out for during the period. Risk factors that may increase the likelihood of getting blues or depression include: Having a personal or family history of depression. Having depression while being . Having premenstrual mood issues or mood issues related to oral contraceptives. Having a lot of life stress. Having marital conflict. Lacking a social support network. Having health problems, such as diabetes. SIGNS AND SYMPTOMS Symptoms of blues include: Brief changes in mood, such as going from extreme happiness to sadness. Decreased concentration. Difficulty sleeping. Crying spells, tearfulness. Irritability. Anxiety. Symptoms of depression typically begin within the first month after giving . These symptoms include: Difficulty sleeping or excessive sleepiness. Marked weight loss. Agitation. Feelings of worthlessness. Lack of interest in activity or food. psychosis is a very serious condition and can be dangerous. Fortunately, it is rare. Displaying any of the following symptoms is cause for immediate medical attention. Symptoms of psychosis include: Hallucinations and delusions. Bizarre or disorganized behavior. Confusion or disorientation. DIAGNOSIS A diagnosis is made by an evaluation of your symptoms. There are no medical or lab tests that lead to a diagnosis, but there are various questionnaires that a health care provider may use to identifythose with blues, depression, or psychosis. Often, a screening tool called the [place] Depression Scale is used to diagnose depression in the period. TREATMENT blues usually goes away on its own in 1 2 weeks. Social support is often all that is needed. You will be encouraged to get adequate sleep and rest. Occasionally, you may be given medicinesto help you sleep. depression requires treatment because it can last several months or longer if it is not treated. Treatment may include individual or group therapy, medicine, or both to address any social,physiological, and psychological factors that may play a role in the depression. Regular exercise, a healthy diet, rest, and social support may also be strongly recommended. psychosis is more serious and needs treatment right away. Hospitalization is often needed. HOME CARE INSTRUCTIONS Get as much rest as you can. Exercise regularly. Some women find yoga and walking to be beneficial. Eat a balanced and nourishing diet. Do little things that you enjoy. Have a cup of tea, take a bubble bath, read your favorite magazine, or listen to your favorite music. Avoid alcohol. 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 Do nottry to do everything. Talk to people close to you about how you are feeling. Get support from your partner, family members, and friends. Try to stay positive in how you think. Think about the things you are grateful for. Do not spend a lot of time alone. Only take wjda-yph-lwgpktp or prescription medicine as directed by your health care provider. Keep all your appointments. Let your health care provider know if you have any concerns. SEEK MEDICAL CARE IF: You are having a reaction to or problems with your medicine. SEEK IMMEDIATE MEDICAL CARE IF: You have suicidal feelings. You think you may harm yourself or someone else. MAKE SURE YOU: Understand these instructions. Will watch your condition. Will get help right away if you are not doing well or get worse. Resource: [facility] Patient Information 2015 [employer] [facility]. This information is not intended to replace advicegiven to you by your health care provider. Make sure you discuss any questions you have with your health care provider. 11/12/2021 07:50:20 and Mastitis and Mastitis Mastitis is inflammation of the breast tissue. It can occur in women who are . This can make painful. Mastitis will sometimes go away on its own, especially if it is not caused by an infection (non-infectious mastitis). Your health care provider will help determine if medical treatment is needed. Treatment may be needed if the condition is caused by a bacterial infection (infectious mastitis). What are the causes? This condition is often associated with a blocked milkduct, which can happen when too much milk builds up in the breast. Causes of excess milk in the breast can include: Poor latch-on. If your baby is not latched onto the breast properly, he or she may not empty your breast completely while . Allowing too much time to pass between feedings. Wearing a bra or other clothing that is too tight. This puts extra pressure on the milk ducts so milk does not flow through them as it should. Milk remaining in the breast because it is overfilled (engorged). Stress and fatigue. Mastitis can also be caused by a bacterial infection. Bacteria may enter the breast tissue through cuts, cracks, or openings in the skin near the nipple area. Cracks in the skin are often caused whenyour baby does not latch on properly to the breast. What are the signs or symptoms? Symptoms of this condition include: Swelling, redness, tenderness, and pain in an area of the breast. This usually affects the upper part of the breast, toward the armpit region. In most cases, it affects only one breast. In some cases, it may occur on both breasts at the same time and affect a larger portion of breast tissue. Swelling of the glands under the arm on the same side. Fatigue, headache, and flu-like muscle aches. Fever. Rapid pulse. Symptoms usually last 2 to 5 days. Breast pain and redness are at their worst on day 2 and day 3, and they usually go away by day 5. If an infection is left to progress, a collection of pus (abscess)may develop. How is this diagnosed? This condition can be diagnosed based on your symptoms and a physical exam. You may also have tests, such as: Blood tests to determine if your body is fighting a bacterial infection. Mammogram or ultrasound tests to rule out other problems or diseases. Fluid tests. If an abscess has developed, the fluid in the abscess may be removed with a needle. The fluid may be analyzed to determine if bacteria are present. Breast milk may be cultured and tested for bacteria. How is this treated? This condition will sometimes go away on its own. Your health care provider may choose to wait 24 hours after first seeing you to decide whether treatment is needed. If treatment is needed, it may include: Strategies to manage . This includes continuing to breastfeed or pump in order to allow adequate milk flow, using breast massage, and applying heat or cold to the affected area. Self-care such as rest and increased fluid intake. Medicine for pain. Antibiotic medicine to treat a bacterial infection. This is usually taken by mouth. If an abscess has developed, it may be treated by removing fluid with a needle. Follow these instructions at home: Medicines Take pihc-jri-yrjguwk and prescription medicines only as told by your health care provider. If you were prescribed an antibiotic medicine, take it as told by your health care provider. Do notstop taking the antibiotic even if you start to feel better. General instructions Do not wear a tight or underwire bra. Wear a soft, supportive bra. Increase your fluid intake, especially if you have a fever. Get plenty of rest. For : Continue to empty your breasts as often as possible, either by or using an electric breast pump. This will lower the pressure and the pain that comes with it. Ask your health care provider if changes need to be made to your or pumping routine. Keep your nipples clean and dry. During , empty the first breast completely before going to the other breast. If your baby is not emptying your breasts completely, use a breast pump to empty your breasts. Use breast massage during feeding or pumping sessions. If directed, apply moist heat to the affected area of your breast right before or pumping. Use the heat source that your health care provider recommends. If directed, put ice on the affected area of your breast right after or pumping: ?Put ice in a plastic bag. ?Place a towel between your skin and the bag. ?Leave the ice on for 20 minutes. If you go back to work, pump your breasts while at work to stay in time with your nursing schedule. Do not allow your breasts to become engorged. Contact a health care provider if: You have pus-like discharge from the breast. You have a fever. Your symptoms do not improve within 2 days of starting treatment. Your symptoms return after you have recovered from a breast infection. Get help right away if: Your pain and swelling are getting worse. You have pain that is not controlled with medicine. You have a red line extending from the breast toward your armpit. Summary Mastitis is inflammation of the breast tissue. It is often caused by a blocked milk duct or bacteria. This condition may be treated with hot and cold compresses, medicines, self- care, and certain strategies. If you were prescribed an antibiotic medicine, take it as told by your health care provider. Do notstop taking the antibiotic even if you start to feel better. Continue to empty your breasts as often as possible either by or using an electric breast pump. This information is not intended to replace advice given to you by your health care provider. Make sure you discuss any questions you have with your health care provider. Document Released: 05/28/2005 Document Revised: 10/20/2018 Document Reviewed: 02/01/2017 [employer] Patient Education 2020 [employer]. 11/12/2021 07:50:08 Delivery, Care After Delivery, Care After This sheet gives you information about how to care for yourself after your procedure. Your health care provider may also give you more specific instructions. If you have problems or questions, contact your health care provider. What can I expect after the procedure? After the procedure, it is common to have: A small amount of blood or clear fluid coming from the incision. Some redness, swelling, and pain in your incision area. Some abdominal pain and soreness. Vaginal bleeding (lochia). Even though you did not have a vaginal delivery, you will still have vaginal bleeding and discharge. Pelvic cramps. Fatigue. You may have pain, swelling, and discomfort in the tissue between your vagina and your anus (perineum) if: Your was unplanned, and you were allowed to labor and push. An incision was made in the area (episiotomy) or the tissue tore during attempted vaginal delivery. Follow these instructions at home: Incision care Follow instructions from your health care provider about how to take care of your incision. Make sure you: ?Wash your hands with soap and water before you change your bandage (dressing). If soap and water are not available, use hand impersonator character. ?If you have a dressing, change it or remove it as told by your health care provider. ?Leave stitches (sutures), skin wilda, skin glue, or adhesive strips in place. These skin closures may need to stay in place for 2 weeks or longer. If adhesive strip edges start to loosen and curl up, you may trim the loose edges. Do not remove adhesive strips completely unless your health care provider tells you to do that. Check your incision area every day for signs of infection. Check for: ?More redness, swelling, or pain. ?More fluid or blood. ?Warmth. ?Pus or a bad smell. Do not take baths, swim, or use a hot tub until your health care provider says it's okay. Ask your health care provider if you can take showers. When you cough or sneeze, hug a pillow. This helps with pain and decreases the chance of your incision opening up (dehiscing). Do this until your incision heals. Medicines Take typf-inm-rqhqppm and prescription medicines only as told by your health care provider. If you were prescribed an antibiotic medicine, take it as told by your health care provider. Do notstop taking the antibiotic even if you start to feel better. Do not drive or use heavy machinery while taking prescription pain medicine. Lifestyle Do not drink alcohol. This is especially important if you are or taking pain medicine. Do not use any products that contain nicotine or tobacco, such as cigarettes, e- cigarettes, and chewing tobacco. If you need help quitting, ask your health care provider. Eating and drinking Drink at least 8 eight-ounce glasses of water every day unless told not to by your health care provider. If you breastfeed, you may need to drink even more water. Eat high-fiber foods every day. These foods may help prevent or relieve constipation. High-fiber foods include: ?Whole grain cereals and breads. ?Brown rice. ?Beans. ?Fresh fruits and vegetables. Activity If possible, have someone help you care for your baby and help with household activities for at least a few days after you leave the hospital. Return to your normal activities as told by your health care provider. Ask your health care provider what activities are safe for you. Rest as much as possible. Try to rest or take a nap while your baby is sleeping. Do not lift anything that is heavier than 10 lbs (4.5 kg), or the limit that you were told, until your health care provider says that it is safe. Talk with your health care provider about when you can engage in sexual activity. This may depend on your: ?Risk of infection. ?How fast you heal. ?Comfort and desire to engage in sexual activity. General instructions Do not use tampons or douches until your health care provider approves. Wear loose, comfortable clothing and a supportive and well-fitting bra. Keep your perineum clean and dry. Wipe from front to back when you use the toilet. If you pass a blood clot, save it and call your health care provider to discuss. Do not flush bloodclots down the toilet before you get instructions from your health care provider. Keep all follow-up visits for you and your baby as told by your health care provider. This is important. Contact a health care provider if: You have: ?A fever. ?Bad-smelling vaginal discharge. ?Pus or a bad smell coming from your incision. ?Difficulty or pain when urinating. ?A sudden increase or decrease in the frequency of your bowel movements. ?More redness, swelling, or pain around your incision. ?More fluid or blood coming from your incision. ?A rash. ?Nausea. ?Little or no interest in activities you used to enjoy. ?Questions about caring for yourself or your baby. Your incision feels warm to the touch. Your breasts turn red or become painful or hard. You feel unusually sad or worried. You vomit. You pass a blood clot from your vagina. You urinate more than usual. You are dizzy or light-headed. Get help right away if: You have: ?Pain that does not go away or get better with medicine. ?Chest pain. ?Difficulty breathing. ?Blurred vision or spots in your vision. ?Thoughts about hurting yourself or your baby. ?New pain in your abdomen or in one of your legs. ?A severe headache. You faint. You bleed from your vagina so much that you fill more than one sanitary pad in one hour. Bleeding should not be heavier than your heaviest period. Summary After the procedure, it is common to have pain at your incision site, abdominal cramping, and slight bleeding from your vagina. Check your incision area every day for signs of infection. Tell your health care provider about any unusual symptoms. Keep all follow-up visits for you and your baby as told by your health care provider. This information is not intended to replace advice given to you by your health care provider. Make sure you discuss any questions you have with your health care provider. Document Released: 10/23/2002 Document Revised: 08/09/2018 Document Reviewed: 08/09/2018 [employer] Patient Education [email or web address]. Follow Up Care 11/10/2021 12:05:16 With:APURVA SINGH MD Address: [address] [place] [address] [facility] [place], [place] [phone]- [phone] When: Unknown Comments:Please schedule followup post operative visit next week [facility] 09-29-2022 Note Postoperative day #2 progress note: Subjective: Feeling sore today but is able to ambulate. Voiding without difficulty. No headache. Objective: Afebrile vital signs stable normal blood pressure. Abdomen is soft appropriately tender.Incision is intact. Vaginal bleeding light. Trace lower extremity edema. Hemoglobin stable on postoperative day #1. Impression/plan: Doing well on postoperative day #2 status post repeat low transverse section. She would like to be discharged home today. Will discharge home. Home-going instructions and warnings were given. She is bottlefeeding. Discussed long-acting reversible contraception at this hospital stay and she declines that at this time. Plan for tubal ligation sometime in the near future. Digitally Signed by APURVA SINGH MD on 11/12/2021 08:31 AM [facility] [phone] Evaluation + Plan noteExtracted from: Title:Clinical Document Author:BERONICA FLOYD MD Date:11/11/21 Subjective Good pain control, no further headache now. Lochia small. Tolerating regular diet. no nausea Objective Patient with normal gait in no acute distress. Pallor. Alert and oriented x3, cooperative Abdomen: Dressings clean and dry Soft, nontender. Extremities: Nontender, no redness, no edema, VITALS EpfjxpKpmfCNYlslnKQBrJ5NVB9KysgGn(kg) 11/11 12:08--105/6376------.0 11/11 10:03--99/[id number]/27130.0 11/11 08:1836.5117/6472--100RA 11/11 06:02--111/[id number] 11/11 03:5436.897/[id number] 24 Hr Tmax: 36.9 at 11/11 00:35 36 Hr Tmax: 36.9 at 11/11 00:35 Vital Signs are the last 5 in the past 48 hours. Weights display the last 5 within 7 days. Initial Wt: 11/10 130.0 kg 286 lb Current Wt: 11/10 130.0 kg 286 lb LABS 11/11 05:17 WBC: 11.3 H Hgb: 10.2 L Hct: 30.7 L Platelet: 103 L Neutrophil %: 69.4 11/10 18:30 WBC: 9.7 Hgb: 10.9 L Hct: 33.1 L Platelet: 109 L Neutrophil %: 69.5 Medications Active Inpt Meds: acetaminophen (Tylenol) Start: 11/11/21 0:00:00 EDT, Dose = 650 mg, = 2 tab(s), Oral, q6hr, 0, 11/10/21 23:50:00 EDT fluconazole (Diflucan) Start: 11/11/21 13:11:00 EDT, Dose = 100 mg, = 1 tab(s), Oral, qDay, Stop: 11/13/21 15:00:00 EDT, 11/11/21 13:11:00 EDT ibuprofen (Motrin) Start: 11/11/21 0:00:00 EDT, Dose = 600 mg, = 1 tab(s), Oral, q6hr, 0, 11/10/21 23:50:00 EDT sertraline (Zoloft) Start: 11/11/21 9:00:00 EDT, Dose = 50 mg, = 1 tab(s), Oral, qDay, 0, 11/10/21 20:53:00 EDT Problems (7) Anxiety (16028617) Body mass index 30+ - obesity (887205560) Depression (532034927) Encounter for supervision of normal in multigravida in third trimester (824897619) Migraine (19819794) (581666881) Previous section (764526030) ASSESSMENT/PLAN: POD#1 after repeat Yeast infection. Will start topicals & Betadine to incision Extracted from: Title:Clinical Document Author:BERONICA FLOYD MD Date:11/10/21 [facility] ADMISSION HISTORY AN D PHYSICIAL CHIEF COMPLAINT: Severe headache not responding to medication and seeing spots in her visual field HISTORY OF PRESENT ILLNESS: 20-year-old white female 4 para 3 all by section presenting with the above symptoms for at least the second time. She was seen and evaluated for this last week and sent home on tuss-tpg-eztdwpo medications she is back again today with the same. She is 36 weeks and 6 days by crown-rump length and this has been fraught with multiple visits to labor and delivery for various complaints however the headaches with visual changes are more recent finding. During her last admission she was found to have low platelets as well up to 107 and she was evaluated for preeclampsia and HELPP and had no evidence of either of these, but than the mild thrombocytopenia. 12/02/21 (Authoritative) EGA 36 Weeks, 6 Days /Parity G4,P3(3,0,0,3) Multiple Fetuses No, Brar Feeding Plan Breast - Current Weight 128kg Pre-Preg Weight 122.8kg Height 162.6cm BMI 48.4kg/m2 Blood Type B POS RPR Non-Reactive Rubella Imm St Positive Weight gain is 5kg Glucola was wnl. REVIEW OF SYSTEMS: Patient denies epigastric pain, nausea or vomiting, or fever. movements have continued and she denies contractions, leakage of fluid or bleeding. ACTIVE PROBLEMS: (7) Anxiety (50498518) Body mass index 30+ - obesity (789526796) Depression (729396185) Encounter for supervision of normal in multigravida in third trimester (166266939) Migraine (04275319) (314634837) Previous section (059845776) MEDICATIONS: Active Inpt Meds: cefOXitin (Mefoxin) Start: 11/10/21 18:26:00 EDT, Dose = 2 g, IV Piggyback, PREOP pharm, Rate: 200 mL/hr, Infuse over: 30 minute(s), 11/10/21 18:26:00 EDT clindamycin (Cleocin) Start: 11/10/21 18:26:00 EDT, Dose = 900 mg, = 6 mL, IV Piggyback, PREOP pharm, Infuse over: 30 minute(s), 11/10/21 18:26:00 EDT Active PRN Meds: metoclopramide (Reglan) Start: 11/10/21 14:38:00 EDT, Dose = 10 mg, = 2 mL, IV Push, AsDirected, PRN, Nausea/Vomiting, Routine, 11/10/21 14:38:00 EDT One Time Meds: (Completed) Sodium Chloride 0.9% intravenous solution (NS 500 mL Bolus) Start: 11/10/21 14:30:00 EDT, Dose = 500 mL, Soln, IV Bolus, Once, Stop: 11/10/21 14:30:00 EDT, Rate: 1,000 mL, hour(s), 11/10/21 14:16:00 EDT (Completed) nalbuphine (Nubain) Start: 11/10/21 14:38:00 EDT, Dose = 10 mg, = 1 mL, IV Push, Once, STAT, Stop: 11/10/21 14:38:00 EDT, 11/10/21 14:38:00 EDT (Completed) prochlorperazine (Compazine) Start: 11/10/21 14:45:00 EDT, Dose = 5 mg, = 1 mL, IV Push, Once, Stop: 11/10/21 14:45:00 EDT, 11/10/21 14:38:00 EDT Active IV Meds: Sodium Chloride 0.9% intravenous solution 1,000 mL (NS 1,000 mL) Start: 11/10/21 14:15:00 EDT, Rate: 200 mL/hr, 11/10/21 14:15:00 EDT ALLERGIES: (1) NKA FAMILY HISTORY: No inheritable diseases. No tobacco, ETOH or illicit drugs SOCIAL HISTORY: Lives with significant other and children PHYSICAL EXAM: VITALS: KpcrtwOvklONNsnzaVZAyI6ZWO6UzbxZd(kg) 11/10 12:45--109/4386--99--.0 11/10 12:38--118/4691--98--.0 11/10 12:1636.8111/[id number] 24 Hr Tmax: 36.8 at 11/10 12:16 36 Hr Tmax: 36.8 at 11/10 12:16 Vital Signs are the last 5 in the past 48 hours. Weights display the last 5 within 7 days. Initial Wt: 11/10 130.0 kg 286 lb Current Wt: 11/10 130.0 kg 286 lb GENERAL: Young white female who is in no acute distress she is alert and oriented x3 and cooperative. She does look flushed. HEENT: Normal CARDIOVASCULAR: Regular rate and rhythm RESPIRATORY: Clear to auscultation bilaterally ABDOMEN: Gravid, soft, nontender Cardiotocometry shows minimal uterine irritability and a heart rate in the 140s which is largely reactive and category 1 however there are recurrent variable decelerations just wider than 15 seconds dropping towards 1 11/15/2019 and resolving. These were worst when she first was admitted and have improved somewhat with hydration however they have not disappeared completely. The rest of the strip is reactive. Sup pannicular fold is involved with the red moist rash highly suggestive of a yeast infection. EXREMETIES: Nontender without edema NEUROLOGICAL: Grossly normal again today her neck is supple and Kernig's is negative PSYCHIATRIC: Grossly normal LABS: No 36hr Lab Data DIAGNOSTICS: BPP of 8/8 today. IMPRESSION: 1. 36+6-week intrauterine 2. Previous section x3 3. Persistent headaches and visual changes 4. Concerning heart tracing especially in light of multiple previous cesareans 5. Mild thrombocytopenia - likely gestational. 6. Intertrigo in the sub-pannicular fold 7. Breech presentation PLAN: The plan after over 4 hours of hydration without complete resolution of the recurrent variable decelerations to proceed with delivery. The patient was discussed with maternal- medicine. She has excellent dating, and is near term. The headaches do not seem to be related to preeclampsia however he has recommended that if they persist after delivery 1 should consider MRI of the head to evaluate the reason for this. The recurrent variable decelerations raises the question of whether she might have some compromise of the uterine incision and we will proceed with delivery once we can get the together. Note is that the patient states she signed papers for sterilization however she is not 21 yet. The provider who has cared for her most during this stated earlier that this patient did not want sterilization performed any case. Future Appointments Appointment Date:11/19/2021 09:45:00 AM Scheduled Provider:APURVA SINGH MD Location:[facility] Appointment Type:[facility] Future Scheduled Tests Laboratory* hCG, quantitative(AO) 03/23/21 * hCG, quantitative(AO) 03/29/21 * hCG, quantitative(AO) 02/16/21 * Panel (AO) 04/20/21 * Glucose 1 Hour Challenge 08/20/21 * Rapid Plasma Reagin Test 08/20/21 * Uric Acid 08/27/21 * 24 Hr Urine Total Protein (AO) 09/17/21 * Complete Blood Count 08/20/21 * 24 Hr Urine Creatinine (AO) 09/03/21 [facility] 09-27-2022 Note Patient mentioned that she had signed sterilization papers earlier this week with Dr. Singh. I advised her that I believe she cannot sign the consent form until she is 21 and in any case that consentform needs to be signed 30 days before sterilization. I did express to her that she has multiple options including getting a Depo shot before leaving the hospital and coming in for LARC in the officewell within the 3-month period before the Depo wears off. Digitally Signed by BERONICA FLOYD MD on 11/10/2021 07:04 PM [facility]09-27-2022 Note [facility] ADMISSION HISTORY AND PHYSICIAL CHIEF COMPLAINT: Severe headache not responding to medication and seeing spots in her visual field HISTORY OF PRESENT ILLNESS: 20-year-old white female 4 para 3 all by section presenting with the above symptoms for at least the second time. She was seen and evaluated for this last week and sent home on vnwp-sjy-qybatcm medications she is back again today with the same. She is 36 weeks and 6 days by crown-rump length and this has been fraught with multiple visits to labor and delivery for various complaints however the headaches with visual changes are more recent finding. During her last admission she was found to have low platelets as well up to 107 and she was evaluated for preeclampsia and HELPP and had no evidence of either of these, but than the mild thrombocytopenia. 12/02/21 (Authoritative) EGA 36 Weeks, 6 Days /Parity G4,P3(3,0,0,3) Multiple Fetuses No, Brar Feeding Plan Breast - Current Weight 128kg Pre-Preg Weight 122.8kg Height 162.6cm BMI 48.4kg/m2 Blood Type B POS RPR Non-Reactive Rubella Imm St Positive Weight gain is 5kg Glucola was wnl. REVIEW OF SYSTEMS: Patient denies epigastric pain, nausea or vomiting, or fever. movements have continued and she denies contractions, leakage of fluid or bleeding. ACTIVE PROBLEMS: (7) Anxiety (77374903) Body mass index 30+ - obesity (131060536) Depression (464896432) Encounter for supervision of normal in multigravida in third trimester (042098713) Migraine (54973044) (825468801) Previous section (472068004) MEDICATIONS: Active Inpt Meds: cefOXitin (Mefoxin) Start: 11/10/21 18:26:00 EDT, Dose = 2 g, IV Piggyback, PREOP pharm, Rate: 200 mL/hr, Infuse over: 30 minute(s), 11/10/21 18:26:00 EDT clindamycin (Cleocin) Start: 11/10/21 18:26:00 EDT, Dose = 900 mg, = 6 mL, IV Piggyback, PREOP pharm, Infuse over: 30 minute(s), 11/10/21 18:26:00 EDT Active PRN Meds: metoclopramide (Reglan) Start: 11/10/21 14:38:00 EDT, Dose = 10 mg, = 2 mL, IV Push, AsDirected, PRN, Nausea/Vomiting, Routine, 11/10/21 14:38:00 EDT One Time Meds: (Completed) Sodium Chloride 0.9% intravenous solution (NS 500 mL Bolus) Start: 11/10/21 14:30:00 EDT, Dose = 500 mL, Soln, IV Bolus, Once, Stop: 11/10/21 14:30:00 EDT, Rate: 1,000 mL, hour(s), 11/10/21 14:16:00 EDT (Completed) nalbuphine (Nubain) Start: 11/10/21 14:38:00 EDT, Dose = 10 mg, = 1 mL, IV Push, Once, STAT, Stop: 11/10/21 14:38:00 EDT, 11/10/21 14:38:00 EDT (Completed) prochlorperazine (Compazine) Start: 11/10/21 14:45:00 EDT, Dose = 5 mg, = 1 mL, IV Push, Once, Stop: 11/10/21 14:45:00 EDT, 11/10/21 14:38:00 EDT Active IV Meds: Sodium Chloride 0.9% intravenous solution 1,000 mL (NS 1,000 mL) Start: 11/10/21 14:15:00 EDT, Rate: 200 mL/hr, 11/10/21 14:15:00 EDT ALLERGIES: (1) NKA FAMILY HISTORY: No inheritable diseases. No tobacco, ETOH or illicit drugs SOCIAL HISTORY: Lives with significant other and children PHYSICAL EXAM: VITALS: AtyekzIhrzULElqqtILBvI0ZKD6TazgHz(kg) 11/10 12:45--109/4386--99--.0 11/10 12:38--118/4691--98--.0 11/10 12:1636.8111/[id number] 24 Hr Tmax: 36.8 at 11/10 12:16 36 Hr Tmax: 36.8 at 11/10 12:16 Vital Signs are the last 5 in the past 48 hours. Weights display the last 5 within 7 days. Initial Wt: 11/10 130.0 kg 286 lb Current Wt: 11/10 130.0 kg 286 lb GENERAL: Young white female who is in no acute distress she is alert and oriented x3 and cooperative. She does look flushed. HEENT: Normal CARDIOVASCULAR: Regular rate and rhythm RESPIRATORY: Clear to auscultation bilaterally ABDOMEN: Gravid, soft, nontender Cardiotocometry shows minimal uterine irritability and a heart rate in the 140s which is largely reactive and category 1 however there are recurrent variable decelerations just wider than 15 seconds dropping towards 1 11/15/2019 and resolving. These were worst when she first was admitted and have improved somewhat with hydration however they have not disappeared completely. The rest of the strip is reactive. Sup pannicular fold is involved with the red moist rash highly suggestive of a yeast infection. EXREMETIES: Nontender without edema NEUROLOGICAL: Grossly normal again today her neck is supple and Kernig's is negative PSYCHIATRIC: Grossly normal LABS: No 36hr Lab Data DIAGNOSTICS: BPP of 09/21 today. IMPRESSION: 1. 36+6-week intrauterine 2. Previous section x3 3. Persistent headaches and visual changes 4. Concerning heart tracing especially in light of multiple previous cesareans 5. Mild thrombocytopenia - likely gestational. 6. Intertrigo in the sub-pannicular fold 7. Breech presentation PLAN: The plan after over 4 hours of hydration without complete resolution of the recurrent variable decelerations to proceed with delivery. The patient was discussed with maternal- medicine.She has excellent dating, and is near term. The headaches do not seem to be related to preeclampsiahowever he has recommended that if they persist after delivery 1 should consider MRI of the head toevaluate the reason for this. The recurrent variable decelerations raises the question of whether she might have some compromise of the uterine incision and we will proceed with delivery once we can get the together. Note is that the patient states she signed papers for sterilization however she is not 21 yet. The provider who has cared for her most during this stated earlier that this patient did not want sterilization performed any case. Digitally Signed by BERONICA FLOYD MD on 11/10/2021 08:41 PM [facility]09-05-2022 Hospital Discharge instructions Patient Education 10/19/2021 16:14:35 [facility] Instructions ([facility]) [facility] HOME-GOING INSTRUCTIONS _X_ You are to follow up with your physician in ___ days/weeks. ACTIVITY ___ Bedrest ___Activity as tolerated ___ No work/school for ___ days. ___Other PRESCRIPTION GIVEN ___Yes NAUSEA/VOMITING ___ Take small, frequent amounts of clear liquids. Avoid fruit juices and milk. ___ Increase fluid intake to a minimum of 8 ounces of fluid every hour while awake. ___ Soft diet. Rice, crackers, bananas, Jell-O, cooked carrots, applesauce. ___ [place] diet. Avoid caffeine, chocolate, alcohol, spiced/greasy foods. URINARY TRACT INFECTION ___ Drink 8-12 glasses of water every day. ___ Urinate frequently; do not limit fluids to reduce frequency of urination. ___ Call your physician if burning and frequency with urination returns after taking all your medication. ___ Call your physician if you have a temperature of 100.4 degrees Fahrenheit or higher. ___ Wipe from front to back. SIGNS OF PRE-ECLAMPSIA ___ Severe heartburn. ___ Persistent headache not relieved by Tylenol. ___ Increased in swelling of face, hands and feet. ___ Blurred vision, double vision, or spots in the eyes. ___ Persistent vomiting. ___ *Convulsions or seizures. LABOR ___ Restrict activity. ___ Drink 8-12 glasses of water every day. ___ Urinate frequently ___ Pelvic rest. No sexual intercourse/ Call your physician if you experience: _X__ Increase in vaginal discharge, leaking fluid, or vaginal bleeding. _X__ More than 4, 5, or 6 contractions in one hour. _X__ Burning and frequency with urination. DECREASED MOVEMENT _X__ Lie down on your left side, drink some fluids and relax. Count the movements. You need to have 10 movements in 2 hours. _X__ If you do not feel the 10 movements, call your physician. OTHER _X__ After an exam you may experience some spotting or discharge. As long as it is not bright red and heavy like a period or continues to leak as if your water broke, it is to be expected. ___ LABOR Call your physician if you experience: ___ Painful uterine contractions every ___ minutes for ___ hours. ___A gush or continuous trickle of watery discharge. COME TO THE HOSPITAL AND CALL PHYSICIAN IF: ___ Your abdomen feels continually firm. ___ *Bleeding is bright red and enough to saturate a pad in one hour or less. *Call 911 or go to the nearest Emergency Room for assistance. Form D: 01/22 Follow Up Care 10/19/2021 15:28:05 With:BERONICA FLOYD MD Address: [address] [place] [address] [facility] [place], [place] [id number] [phone] When: only if needed [facility] 08-26-2022 Hospital Discharge instructions Patient Education 10/09/2021 12:49:52 [facility] Instructions ([facility]) [facility] HOME-GOING INSTRUCTIONS _X_ You are to follow up with your physician in ___ days/weeks. ACTIVITY ___ Bedrest ___Activity as tolerated ___ No work/school for ___ days. ___Other PRESCRIPTION GIVEN ___Yes NAUSEA/VOMITING ___ Take small, frequent amounts of clear liquids. Avoid fruit juices and milk. ___ Increase fluid intake to a minimum of 8 ounces of fluid every hour while awake. ___ Soft diet. Rice, crackers, bananas, Jell-O, cooked carrots, applesauce. ___ [place] diet. Avoid caffeine, chocolate, alcohol, spiced/greasy foods. URINARY TRACT INFECTION ___ Drink 8-12 glasses of water every day. ___ Urinate frequently; do not limit fluids to reduce frequency of urination. ___ Call your physician if burning and frequency with urination returns after taking all your medication. ___ Call your physician if you have a temperature of 100.4 degrees Fahrenheit or higher. ___ Wipe from front to back. SIGNS OF PRE-ECLAMPSIA ___ Severe heartburn. ___ Persistent headache not relieved by Tylenol. ___ Increased in swelling of face, hands and feet. ___ Blurred vision, double vision, or spots in the eyes. ___ Persistent vomiting. ___ *Convulsions or seizures. LABOR ___ Restrict activity. ___ Drink 8-12 glasses of water every day. ___ Urinate frequently ___ Pelvic rest. No sexual intercourse/ Call your physician if you experience: ___ Increase in vaginal discharge, leaking fluid, or vaginal bleeding. ___ More than 4, 5, or 6 contractions in one hour. ___ Burning and frequency with urination. DECREASED MOVEMENT ___ Lie down on your left side, drink some fluids and relax. Count the movements. You need tohave 10 movements in 2 hours. ___ If you do not feel the 10 movements, call your physician. OTHER ___ After an exam you may experience some spotting or discharge. As long as it is not bright red and heavy like a period or continues to leak as if your water broke, it is to be expected. ___ LABOR Call your physician if you experience: ___ Painful uterine contractions every ___ minutes for ___ hours. ___A gush or continuous trickle of watery discharge. COME TO THE HOSPITAL AND CALL PHYSICIAN IF: ___ Your abdomen feels continually firm. ___ *Bleeding is bright red and enough to saturate a pad in one hour or less. *Call 911 or go to the nearest Emergency Room for assistance. Form [id number] D: 01/22 Follow Up Care 10/09/2021 11:15:17 With:APURVA SINGH Address: [address] [facility] [place] [address] [phone] Business (1) When: Unknown [facility] 08-18-2022 Hospital Discharge instructions Patient Education 10/01/2021 11:18:34 7 - Labor and Delivery Outpatient Instructions(CUSTOM) [facility] OUTPATIENT HOME-GOING INSTRUCTIONS _X_ You are to follow up with your provider as scheduled. ACTIVITY ___ Bedrest _X__Activity as tolerated ___ No work/school for ___ days. ___Other PRESCRIPTION GIVEN ___Yes NAUSEA/VOMITING ___ Take small, frequent amounts of clear liquids. Avoid fruit juices and milk. ___ Increase fluid intake to a minimum of 8 ounces of fluid every hour while awake. ___ Soft diet. Rice, crackers, bananas, Jell-O, cooked carrots, applesauce. ___ [place] diet. Avoid caffeine, chocolate, alcohol, spiced/greasy foods. URINARY TRACT INFECTION ___ Drink 8-12 glasses of water every day. ___ Urinate frequently; do not limit fluids to reduce frequency of urination. ___ Call your physician if burning and frequency with urination returns after taking all your medication. ___ Call your physician if you have a temperature of 100.4 degrees Fahrenheit or higher. ___ Wipe from front to back. SIGNS OF PRE-ECLAMPSIA ___ Severe heartburn. ___ Persistent headache not relieved by Tylenol. ___ Increased in swelling of face, hands and feet. ___ Blurred vision, double vision, or spots in the eyes. ___ Persistent vomiting. ___ *Convulsions or seizures. LABOR ___ Restrict activity. ___ Drink 8-12 glasses of water every day. ___ Urinate frequently ___ Pelvic rest. No sexual intercourse/ Call your physician if you experience: ___ Increase in vaginal discharge, leaking fluid, or vaginal bleeding. ___ More than 4, 5, or 6 contractions in one hour. ___ Burning and frequency with urination. DECREASED MOVEMENT _X__ Lie down on your left side, drink some fluids and relax. Count the movements. You need to have 10 movements in 2 hours. _X__ If you do not feel the 10 movements, call your physician. OTHER ___ After an exam you may experience some spotting or discharge. As long as it is not bright red and heavy like a period or continues to leak as if your water broke, it is to be expected. _X__ _Call your provider with any concerns or questions LABOR Call your physician if you experience: ___ Painful uterine contractions every ___ minutes for ___ hours. ___A gush or continuous trickle of watery discharge. COME TO THE HOSPITAL AND CALL PHYSICIAN IF: ___ Your abdomen feels continually firm. ___ *Bleeding is bright red and enough to saturate a pad in one hour or less. *Call 911 or go to the nearest Emergency Room for assistance. Form [id number] D: 01/22 Document Released: 01/31/2006 Document Revised: 01/20/2012 Document Reviewed: 01/31/2006 ExitCare Patient Information 2012 [employer]. Follow Up Care 10/01/2021 10:21:31 With:APURVA SINGH Address: [address] [place] [address] [facility] [place] [address] [phone] Business (1) When: Unknown [facility] 07-28-2022 History of Present illness Narrative* Dianelys Marroquin APRN.TUBER MACHINE OPERATOR HELPER - 09/10/2021 12:33 PM EDT Subjective HPI Lester Infante is a 20 year old female who presents to [facility] care for evaluation of body aches, diarrhea, and nausea for 3 days. She denies fever or associated URI symptoms. She took a COVID test at home yesterday it was negative. She is 28 weeks . She admits to having low back pain, lower abdominal cramping, and some bleeding with wiping this morning. She called her EMPLOYMENT CASE MANAGER but they are not in the office today. She has been feeling movement today. Review of Systems Constitutional: Negative for chills and fever. HENT: Negative for congestion. Respiratory: Negative for cough. Cardiovascular: Negative. Gastrointestinal: Positive for abdominal pain, diarrhea and nausea. Negative for vomiting. Musculoskeletal: Positive for back pain and myalgias. BP 116/66 Pulse 102 Temp 36.6 C (97.8 F) Resp 16 Wt 128.8 kg (284 lb) LMP 04/17/2018 SpO2 99% PAST MEDICAL HISTORY Diagnosis Date NEGATIVE MEDICAL HISTORY PAST SURGICAL HISTORY Procedure Laterality Date INCISION & DRAINAGE ABSCESS SIMPLE/SINGLE 09/01/05 Right plantar foot ALLERGIES Patient has no known allergies. MEDICATIONS vit,alexander 74/iron/folic ( VITAMIN 1+1 ORAL) Take by mouth. ondansetron HCl (ZOFRAN ORAL) Take by mouth. sertraline HCl (ZOLOFT ORAL) Take 1 tablet by mouth once daily. No family history on file. Social History Tobacco Use Smoking status: Never Smoker Smokeless tobacco: Never Used Substance Use Topics Alcohol use: Never Drug use: Not on file Objective Physical Exam Vitals and nursing note reviewed. Constitutional: Appearance: Normal appearance. Cardiovascular: Rate and Rhythm: Normal rate and regular rhythm. Heart sounds: Normal heart sounds. Pulmonary: Effort: Pulmonary effort is normal. No respiratory distress. Breath sounds: Normal breath sounds. No wheezing or rales. Skin: General: Skin is warm and dry. Findings: No erythema or rash. Neurological: Mental Status: She is alert. ASSESSMENT/PLAN: 1. Lower abdominal pain - ICD9: 789.09, ICD10: R10.30 (primary diagnosis) 2. Vaginal bleeding in , third trimester - ICD9: 641.93, ICD10: O46.93 -referred to ER for further evaluation. Patient agreeable. Report sent to [facility] via ER passport. Dianelys Marroquin APRN.TUBER MACHINE OPERATOR HELPER [facility] Discharge instructions Follow Up Care 09/07/2021 09:52:49 With:APURVA SINGH MD Address: [address] [place] [address] [facility] [place] [address]- [phone] When: Unknown Comments:Follow-up as scheduled [facility] 07-13-2022 Hospital Discharge instructions Patient Education 08/26/2021 17:27:20 [facility] Outpatient Instructions (AORN) [facility] AND DELIVERY OUTPATIENT HOME-GOING INSTRUCTIONS _X_ You are to follow up with your physician in ___ days/weeks. ACTIVITY ___ Bedrest ___Activity as tolerated ___ No work/school for ___ days. ___Other PRESCRIPTION GIVEN ___Yes NAUSEA/VOMITING ___ Take small, frequent amounts of clear liquids. Avoid fruit juices and milk. ___ Increase fluid intake to a minimum of 8 ounces of fluid every hour while awake. ___ Soft diet. Rice, crackers, bananas, Jell-O, cooked carrots, applesauce. ___ [place] diet. Avoid caffeine, chocolate, alcohol, spiced/greasy foods. URINARY TRACT INFECTION ___ Drink 8-12 glasses of water every day. ___ Urinate frequently; do not limit fluids to reduce frequency of urination. ___ Call your physician if burning and frequency with urination returns after taking all your medication. ___ Call your physician if you have a temperature of 100.4 degrees Fahrenheit or higher. ___ Wipe from front to back. SIGNS OF PRE-ECLAMPSIA ___ Severe heartburn. ___ Persistent headache not relieved by Tylenol. ___ Increased in swelling of face, hands and feet. ___ Blurred vision, double vision, or spots in the eyes. ___ Persistent vomiting. ___ *Convulsions or seizures. LABOR ___ Restrict activity. ___ Drink 8-12 glasses of water every day. ___ Urinate frequently ___ Pelvic rest. No sexual intercourse/ Call your physician if you experience: ___ Increase in vaginal discharge, leaking fluid, or vaginal bleeding. ___ More than 4, 5, or 6 contractions in one hour. ___ Burning and frequency with urination. DECREASED MOVEMENT ___ Lie down on your left side, drink some fluids and relax. Count the movements. You need tohave 10 movements in 2 hours. ___ If you do not feel the 10 movements, call your physician. OTHER ___ After an exam you may experience some spotting or discharge. As long as it is not bright red and heavy like a period or continues to leak as if your water broke, it is to be expected. ___ LABOR Call your physician if you experience: ___ Painful uterine contractions every ___ minutes for ___ hours. ___A gush or continuous trickle of watery discharge. COME TO THE HOSPITAL AND CALL PHYSICIAN IF: ___ Your abdomen feels continually firm. ___ *Bleeding is bright red and enough to saturate a pad in one hour or less. *Call 911 or go to the nearest Emergency Room for assistance. Form [id number] D: 01/22 Follow Up Care 08/26/2021 14:59:41 With:BERONICA FLOYD Address: [address] [facility] [place] [address]- [phone] Business (1) [facility]: [facility] Discharge instructions Patient Education 06/14/2021 15:21:26 Palpitations Heart Palpitations Palpitations are the feeling that your heart is beating hard, fast, or irregular. Some describe it as pounding or skipped beats. Palpitations may occur in someone with heart disease, but can alsooccur in a healthy person. Heart-related causes: Arrhythmia (a change from the heart's normal rhythm) Heart valve disease Disease of the heart muscle Coronary artery disease High blood pressure Bhq-rpnna-bhynuhf causes: Certain medicines such as asthma inhalers and decongestants Some herbal supplements, energy drinks and pills, and weight loss pills Illegal stimulant drugs such as cocaine, crank, methamphetamine, PCP, bath salts, or ecstasy Caffeine, alcohol, and tobacco Medical conditions such as thyroid disease, anemia, anxiety, and panic disorder Sometimes the cause can't be found. Home care Follow these home care tips: Don't use too much caffeine, alcohol, tobacco, or any stimulant drugs. Tell your doctor about any prescription or xikj-rwm-vrzadtd or herbal medicines you take. Follow-up care Follow up with your doctor, or as advised. Call 911 This is the fastest and safest way to get to the emergency department. The paramedics can also begin treatment on the way to the hospital, if needed. Don't wait until your symptoms are severe to call 911. These are reasons to call 911: Chest pain Shortness of breath Feeling lightheaded, faint, or dizzy Fainting or loss of consciousness Very irregular heartbeat Rapid heartbeat that makes you uncomfortable Slower than usual heart rate associated with symptoms Slower than usual heart rate Chest pain with weakness, dizziness, heavy sweating, nausea, or vomiting Extreme drowsiness or confusion Weakness of an arm or leg, or on 1 side of the face Difficulty with speech or vision When to seek medical advice Call your healthcare provider right away if you have palpitations and any of the following: Weakness Dizziness Lightheadedness Fainting [id number] [employer]. [address] [place] [address], [place] [address]. All rights reserved. This information is not intended as a substitute for professional medical care. Always follow yourhealthcare professional's instructions. Follow Up Care 06/14/2021 14:03:58 With:Follow up with primary care provider Address:Unknown When:2-4 days [facility] 03-28-2022 Hospital Discharge instructions Patient Education 05/11/2021 14:34:31 7 - Labor and Delivery Outpatient Instructions (CUSTOM) [facility] DELIV[facility] OUTPATIENT HOME-GOING INSTRUCTIONS _X_ You are to follow up with your physician in ___ days/weeks. ACTIVITY ___ Bedrest _x__Activity as tolerated ___ No work/school for ___ days. ___Other PRESCRIPTION GIVEN ___Yes NAUSEA/VOMITING __x_ Take small, frequent amounts of clear liquids. Avoid fruit juices and milk. __x_ Increase fluid intake to a minimum of 8 ounces of fluid every hour while awake. __x_ Soft diet. Rice, crackers, bananas, Jell-O, cooked carrots, applesauce. __x_ [place] diet. Avoid caffeine, chocolate, alcohol, spiced/greasy foods. URINARY TRACT INFECTION ___ Drink 8-12 glasses of water every day. ___ Urinate frequently; do not limit fluids to reduce frequency of urination. ___ Call your physician if burning and frequency with urination returns after taking all your medication. ___ Call your physician if you have a temperature of 100.4 degrees Fahrenheit or higher. ___ Wipe from front to back. SIGNS OF PRE-ECLAMPSIA ___ Severe heartburn. ___ Persistent headache not relieved by Tylenol. ___ Increased in swelling of face, hands and feet. ___ Blurred vision, double vision, or spots in the eyes. ___ Persistent vomiting. ___ *Convulsions or seizures. LABOR ___ Restrict activity. ___ Drink 8-12 glasses of water every day. ___ Urinate frequently ___ Pelvic rest. No sexual intercourse/ Call your physician if you experience: ___ Increase in vaginal discharge, leaking fluid, or vaginal bleeding. ___ More than 4, 5, or 6 contractions in one hour. ___ Burning and frequency with urination. DECREASED MOVEMENT ___ Lie down on your left side, drink some fluids and relax. Count the movements. You need tohave 10 movements in 2 hours. ___ If you do not feel the 10 movements, call your physician. OTHER ___ After an exam you may experience some spotting or discharge. As long as it is not bright red and heavy like a period or continues to leak as if your water broke, it is to be expected. ___ LABOR Call your physician if you experience: ___ Painful uterine contractions every ___ minutes for ___ hours. ___A gush or continuous trickle of watery discharge. COME TO THE HOSPITAL AND CALL PHYSICIAN IF: __x_ Your abdomen feels continually firm. __x_ *Bleeding is bright red and enough to saturate a pad in one hour or less. *Call 911 or go to the nearest Emergency Room for assistance. Form [id number] D: 01/22 Document Released: 01/31/2006 Document Revised: 01/20/2012 Document Reviewed: 01/31/2006 ExitCare Patient Information 2012 [employer]. Follow Up Care 05/11/2021 11:26:31 With:APURVA SINGH MD Address: [phone] When: Unknown Comments:Follow-up as scheduled [facility] 12-12-2021 Hospital Discharge instructions Patient Education 01/25/2021 17:39:21 Abdominal Pain Abdominal Pain Abdominal pain is pain in the stomach or belly area. Everyone has this pain from time to time. In many cases it goes away on its own. But abdominal pain can sometimes be due to a serious problem, such as appendicitis. So it s important to know when to get help. Causes of abdominal pain There are many possible causes of abdominal pain. Common causes in adults include: Constipation, diarrhea, or gas Stomach acid flowing back up into the esophagus (acid reflux or heartburn) Severe acid reflux, called GERD (gastroesophageal reflux disease) A sore in the lining of the stomach or small intestine (peptic ulcer) Inflammation of the gallbladder, liver, or pancreas Gallstones or kidney stones Appendicitis Intestinal blockage An internal organ pushing through a muscle or other tissue (hernia) Urinary tract infections In women, menstrual cramps, fibroids, ovarian cysts, pelvic inflammatory disease, or endometriosis Inflammation or infection of the intestines, including Crohn's disease and ulcerative colitis Irritable bowel syndrome Diagnosing the cause of abdominal pain Your healthcare provider will give you a physical exam help find the cause of your pain. If needed,you will have tests. Belly pain has many possible causes. So it can be hard to find the reason for your pain. Giving details about your pain can help. Tell your provider where and when you feel the pain, and what makes it better or worse. Also let your provider know if you have other symptoms such as: Fever Tiredness Upset stomach (nausea) Vomiting Changes in bathroom habits Blood in the stool or black, tarry stool Weight loss that you can't explain (involuntary weight loss?) Also report any family history of stomach or intestinal problems, or cancers. Tell your provider about all your alcohol use and drug use. Tell your provider about all medicines you use, including herbs, vitamins, and supplements. Treating abdominal pain Some causes of pain need emergency medical treatment right away. These include appendicitis or a bowel blockage. Other problems can be treated with rest, fluids, or medicines. Your healthcare provider can give you specific instructions for treatment or self-care based on what is causing your pain. If you have vomiting or diarrhea, sip water or other clear fluids. When you are ready to eat solid foods again, start with small amounts of ndwc-uq-pyvwoh, low- fat foods. These include apple sauce, toast, or crackers. When to get medical care Call 911 or go to the hospital right away if you: Can t pass stool and are vomiting Are vomiting blood or have bloody diarrhea or black, tarry diarrhea Have chest, neck, or shoulder pain Feel like you might pass out Have pain in your shoulder blades with nausea Have sudden, severe belly pain Have new, severe pain unlike any you have felt before Have a belly that is rigid, hard, and hurts to touch Call your healthcare provider if you have: Pain for more than 5 days Bloating for more than 2 days Diarrhea for more than 5 days A fever of 100.4 F (38 C) or higher, or as directed by your healthcare provider Pain that gets worse Weight loss for no reason Continued lack of appetite Blood in your stool How to prevent abdominal pain Here are some tips to help prevent abdominal pain: Eat smaller amounts of food at each meal. Don't eat greasy, fried, or other high-fat foods. Don't eat foods that give you gas. Exercise regularly. Drink plenty of fluids. To help prevent GERD symptoms: Quit smoking. Reduce alcohol and foods that increase stomach acid. Don't use aspirin or tncf-ror-kutwqmc pain and fever medicines, if possible. This includes nonsteroidal anti-inflammatory drugs (NSAIDs). Lose excess weight. Finish eating at least 2 hours before you go to bed or lie down. Raise the head of your bed. [id number] [employer] [place] [address]. All rights reserved. This information is not intended as a substitute for professional medical care. Always follow yourhealthcare professional's instructions. Follow Up Care 01/25/2021 15:36:08 With:Follow up with primary care provider Address:Unknown When:2-4 days [facility] 07-19-2006 History of Past illness Narrative* Problem Noted Date Resolved Date ABSCESS FOOT (EXCEPT TOE)(Right plantar) 006 03/25/2015 documented as of this encounter (statuses as of 09/10/2021) [facility] Appointment Date:04/13/2021 10:00:00 AM Scheduled Provider:APURVA SINGH MD Location:[facility] Appointment Type:[facility] Annual Exam Future Scheduled Tests Laboratory* Glucose 1 Hour Challenge 04/14/20 * Glucose 1 Hour Challenge 03/17/20 * Glucose 1 Hour Challenge 02/25/20 * Glucose 1 Hour Challenge 03/24/20 * Glucose 1 Hour Challenge 02/14/20 * Urine Culture 08/14/20 * Complete Blood Count 03/17/20 * Complete Blood Count 02/25/20 * Complete Blood Count 03/24/20 * Fibronectin 01/14/20 Radiology* US OB Limited 05/14/20 [facility] Evaluation + Plan note Future Appointments Appointment Date:04/13/2021 10:00:00 AM Scheduled Provider:APURVA SINGH MD Location:[facility] Appointment Type:[facility] Annual Exam Future Scheduled Tests Laboratory* Glucose 1 Hour Challenge 04/14/20 * Glucose 1 Hour Challenge 03/17/20 * Glucose 1 Hour Challenge 02/25/20 * Glucose 1 Hour Challenge 03/24/20 * Glucose 1 Hour Challenge 02/14/20 * Urine Culture 08/14/20 * Complete Blood Count 03/17/20 * Complete Blood Count 02/25/20 * Complete Blood Count 03/24/20 Radiology* US OB Limited 05/14/20 [facility] Evaluation + Plan note Future Appointments Appointment Date:04/13/2021 10:00:00 AM Scheduled Provider:APURVA SINGH MD Location:[facility] Appointment Type:[facility] Annual Exam Future Scheduled Tests Laboratory* hCG, quantitative(AO) 02/16/21 * Glucose 1 Hour Challenge 04/14/20 * Glucose 1 Hour Challenge 03/17/20 * Glucose 1 Hour Challenge 02/25/20 * Glucose 1 Hour Challenge 03/24/20 * Glucose 1 Hour Challenge 02/14/20 * Urine Culture 08/14/20 * Complete Blood Count 03/17/20 * Complete Blood Count 02/25/20 * Complete Blood Count 03/24/20 Radiology* US OB Limited 05/14/20 [facility] Evaluation + Plan note Future Appointments Appointment Date:04/13/2021 10:00:00 AM Scheduled Provider:APURVA SINGH MD Location:[facility] Appointment Type:[facility] Annual Exam Future Scheduled Tests Laboratory* hCG, quantitative(AO) 02/16/21 * Glucose 1 Hour Challenge 04/14/20 * Glucose 1 Hour Challenge 03/17/20 * Glucose 1 Hour Challenge 02/25/20 * Glucose 1 Hour Challenge 03/24/20 * Urine Culture 08/14/20 * Complete Blood Count 03/17/20 * Complete Blood Count 02/25/20 * Complete Blood Count 03/24/20 Radiology* US OB Limited 05/14/20 [facility] Evaluation + Plan note Future Appointments Appointment Date:04/13/2021 10:00:00 AM Scheduled Provider:APURVA SINGH MD Location:[facility] Appointment Type: OV Annual Exam Appointment Date:04/13/2021 04:00:00 PM Scheduled Provider: Location:[facility] Appointment Type:US OB < 14 weeks Future Scheduled Tests Laboratory* hCG, quantitative(AO) 03/23/21 * hCG, quantitative(AO) 03/29/21 * hCG, quantitative(AO) 02/16/21 * Glucose 1 Hour Challenge 04/14/20 * Urine Culture 08/14/20 Radiology* US OB < 14 weeks 04/13/21 * US OB Limited 05/14/20 [facility] Evaluation + Plan note Future Appointments Appointment Date:04/20/2021 11:15:00 AM Scheduled Provider:APURVA SINGH MD Location:[facility] Appointment Type: OV Annual Exam Future Scheduled Tests Laboratory* hCG, quantitative(AO) 03/23/21 * hCG, quantitative(AO) 03/29/21 * hCG, quantitative(AO) 02/16/21 * Glucose 1 Hour Challenge 04/14/20 * Urine Culture 08/14/20 Radiology* US OB Limited 05/14/20 [facility] Evaluation + Plan note Future Appointments Appointment Date:05/04/2021 10:00:00 AM Scheduled Provider:APURVA SINGH MD Location:[facility] Appointment Type: OV OB Routine Follow Up Diagnostic Tests Pending * Panel (AO) 05/01/21 Future Scheduled Tests Laboratory* hCG, quantitative(AO) 03/23/21 * hCG, quantitative(AO) 03/29/21 * hCG, quantitative(AO) 02/16/21 * Panel (AO) 04/20/21 * Urine Culture 08/14/20 Radiology* US OB Limited 05/14/20 [facility] Evaluation + Plan note Future Appointments Appointment Date:05/25/2021 10:00:00 AM Scheduled Provider:APURVA SINGH MD Location:[facility] Appointment Type: OV OB Routine Follow Up Future Scheduled Tests Laboratory* hCG, quantitative(AO) 03/23/21 * hCG, quantitative(AO) 03/29/21 * hCG, quantitative(AO) 02/16/21 * Panel (AO) 04/20/21 * Urine Culture 08/14/20 Radiology* US OB Limited 05/14/20 [facility] Evaluation + Plan note Future Appointments Appointment Date:06/22/2021 09:30:00 AM Scheduled Provider:APURVA SINGH MD Location:[facility] Appointment Type:[facility] OB Routine Follow Up Future Scheduled Tests Laboratory* hCG, quantitative(AO) 03/23/21 * hCG, quantitative(AO) 03/29/21 * hCG, quantitative(AO) 02/16/21 * Panel (AO) 04/20/21 * Urine Culture 08/14/20 [facility] Evaluation + Plan note Future Appointments Appointment Date:07/20/2021 10:00:00 AM Scheduled Provider: Location:[facility] Appointment Type:US OB Limited Appointment Date:07/20/2021 11:00:00 AM Scheduled Provider:BERONICA FLOYD MD Location:[facility] Appointment Type: OV OB Routine Follow Up Future Scheduled Tests Laboratory* hCG, quantitative(AO) 03/23/21 * hCG, quantitative(AO) 03/29/21 * hCG, quantitative(AO) 02/16/21 * Panel (AO) 04/20/21 * Urine Culture 08/14/20 Radiology* US OB Limited 07/20/21 [facility] Evaluation + Plan note Future Appointments Appointment Date:08/20/2021 11:45:00 AM Scheduled Provider:APURVA SINGH MD Location:[facility] Appointment Type: OV OB Routine Follow Up Future Scheduled Tests Laboratory* hCG, quantitative(AO) 03/23/21 * hCG, quantitative(AO) 03/29/21 * hCG, quantitative(AO) 02/16/21 * Panel (AO) 04/20/21 * Urine Culture 08/14/20 [facility] Evaluation + Plan note Future Appointments Appointment Date:09/17/2021 08:30:00 AM Scheduled Provider:APURVA SINGH MD Location:[facility] Appointment Type: OV OB Routine Follow Up Future Scheduled Tests Laboratory* hCG, quantitative(AO) 03/23/21 * hCG, quantitative(AO) 03/29/21 * hCG, quantitative(AO) 02/16/21 * Panel (AO) 04/20/21 * Glucose 1 Hour Challenge 08/20/21 * Rapid Plasma Reagin Test 08/20/21 * Complete Blood Count 08/20/21 [facility] Evaluation + Plan note Future Appointments Appointment Date:09/03/2021 09:00:00 AM Scheduled Provider:APURVA SINGH MD Location:[facility] Appointment Type:[facility] OB Routine Follow Up Future Scheduled Tests Laboratory* hCG, quantitative(AO) 03/23/21 * hCG, quantitative(AO) 03/29/21 * hCG, quantitative(AO) 02/16/21 * Panel (AO) 04/20/21 * Glucose 1 Hour Challenge 08/20/21 * Rapid Plasma Reagin Test 08/20/21 * Uric Acid 08/27/21 * Complete Blood Count 08/20/21 * Creatinine, 24 Hour Urine 08/27/21 * Protein 24 Hour Urine 08/27/21 [facility] Evaluation + Plan note Future Appointments Appointment Date:09/03/2021 09:00:00 AM Scheduled Provider:APURVA SINGH MD Location:[facility] Appointment Type: OV OB Routine Follow Up Future Scheduled Tests Laboratory* hCG, quantitative(AO) 03/23/21 * hCG, quantitative(AO) 03/29/21 * hCG, quantitative(AO) 02/16/21 * Panel (AO) 04/20/21 * Glucose 1 Hour Challenge 08/20/21 * Rapid Plasma Reagin Test 08/20/21 * Uric Acid 08/27/21 * Complete Blood Count 08/20/21 [facility] Evaluation + Plan note Future Appointments Appointment Date:09/24/2021 10:45:00 AM Scheduled Provider:APURVA SINGH MD Location:[facility] Appointment Type: OV OB Routine Follow Up Future Scheduled Tests Laboratory* hCG, quantitative(AO) 03/23/21 * hCG, quantitative(AO) 03/29/21 * hCG, quantitative(AO) 02/16/21 * Panel (AO) 04/20/21 * Glucose 1 Hour Challenge 09/03/21 * Glucose 1 Hour Challenge 08/20/21 * Rapid Plasma Reagin Test 09/03/21 * Rapid Plasma Reagin Test 08/20/21 * Uric Acid 08/27/21 * 24 Hr Urine Total Protein (AO) 09/17/21 * Complete Blood Count 09/03/21 * Complete Blood Count 08/20/21 * 24 Hr Urine Creatinine (AO) 09/03/21 [facility] Evaluation + Plan note Future Appointments Appointment Date:09/24/2021 10:45:00 AM Scheduled Provider:APURVA SINGH MD Location:[facility] Appointment Type:[facility] OB Routine Follow Up Diagnostic Tests Pending * Rapid Plasma Reagin Test 09/15/21 Future Scheduled Tests Laboratory* hCG, quantitative(AO) 03/23/21 * hCG, quantitative(AO) 03/29/21 * hCG, quantitative(AO) 02/16/21 * Panel (AO) 04/20/21 * Glucose 1 Hour Challenge 08/20/21 * Rapid Plasma Reagin Test 08/20/21 * Uric Acid 08/27/21 * 24 Hr Urine Total Protein (AO) 09/17/21 * Complete Blood Count 08/20/21 * 24 Hr Urine Creatinine (AO) 09/03/21 [facility] Evaluation + Plan note Future Appointments Appointment Date:10/08/2021 09:15:00 AM Scheduled Provider:APURVA SINGH MD Location:[facility] Appointment Type: OV OB Routine Follow Up Future Scheduled Tests Laboratory* hCG, quantitative(AO) 03/23/21 * hCG, quantitative(AO) 03/29/21 * hCG, quantitative(AO) 02/16/21 * Panel (AO) 04/20/21 * Glucose 1 Hour Challenge 08/20/21 * Rapid Plasma Reagin Test 08/20/21 * Uric Acid 08/27/21 * 24 Hr Urine Total Protein (AO) 09/17/21 * Complete Blood Count 08/20/21 * 24 Hr Urine Creatinine (AO) 09/03/21 [facility] Evaluation + Plan note Future Appointments Appointment Date:10/22/2021 09:45:00 AM Scheduled Provider:APURVA SINGH MD Location:[facility] Appointment Type:[facility] OB Routine Follow Up Future Scheduled Tests Laboratory* hCG, quantitative(AO) 03/23/21 * hCG, quantitative(AO) 03/29/21 * hCG, quantitative(AO) 02/16/21 * Panel (AO) 04/20/21 * Glucose 1 Hour Challenge 08/20/21 * Rapid Plasma Reagin Test 08/20/21 * Uric Acid 08/27/21 * 24 Hr Urine Total Protein (AO) 09/17/21 * Complete Blood Count 08/20/21 * 24 Hr Urine Creatinine (AO) 09/03/21 [facility] Evaluation + Plan note Future Appointments Appointment Date:11/09/2021 09:00:00 AM Scheduled Provider:APURVA SINGH MD Location:[facility] Appointment Type:[facility] OB Routine Follow Up Future Scheduled Tests Laboratory* hCG, quantitative(AO) 03/23/21 * hCG, quantitative(AO) 03/29/21 * hCG, quantitative(AO) 02/16/21 * Panel (AO) 04/20/21 * Glucose 1 Hour Challenge 08/20/21 * Rapid Plasma Reagin Test 08/20/21 * Uric Acid 08/27/21 * 24 Hr Urine Total Protein (AO) 09/17/21 * Complete Blood Count 08/20/21 * 24 Hr Urine Creatinine (AO) 09/03/21 [facility] Evaluation + Plan note Future Appointments Appointment Date:03/18/2022 10:30:00 AM Scheduled Provider:APURVA SINGH MD Location:[facility] Appointment Type:[facility] Future Scheduled Tests Laboratory* Pathology Dictaphone Operator Request 02/18/22 * hCG, quantitative(AO) 03/23/21 * hCG, quantitative(AO) 03/29/21 * Panel (AO) 04/20/21 * Glucose 1 Hour Challenge 08/20/21 * Rapid Plasma Reagin Test 08/20/21 * Uric Acid 08/27/21 * 24 Hr Urine Total Protein (AO) 09/17/21 * Complete Blood Count 08/20/21 * 24 Hr Urine Creatinine (AO) 09/03/21 [facility] Evaluation + Plan note Future Appointments Appointment Date:05/31/2022 10:00:00 AM Scheduled Provider:APURVA SINGH MD Location:[facility] Appointment Type:[facility] Future Scheduled Tests Laboratory* Pathology Dictaphone Operator Request 02/18/22 * Panel (AO) 04/20/21 * Glucose 1 Hour Challenge 08/20/21 * Rapid Plasma Reagin Test 08/20/21 * Uric Acid 08/27/21 * 24 Hr Urine Total Protein (AO) 09/17/21 * Complete Blood Count 08/20/21 * hCG, quantitative (AH) 04/15/22 * hCG, quantitative (AH) 04/18/22 * hCG, quantitative (AH) 04/21/22 * 24 Hr Urine Creatinine (AO) 09/03/21 [facility] Evaluation + Plan note Future Appointments Appointment Date:05/31/2022 10:00:00 AM Scheduled Provider:APURVA SINGH MD Location:[facility] Appointment Type:[facility] Future Scheduled Tests Laboratory* Pathology Dictaphone Operator Request 02/18/22 * Glucose 1 Hour Challenge 08/20/21 * Rapid Plasma Reagin Test 08/20/21 * Uric Acid 08/27/21 * 24 Hr Urine Total Protein (AO) 09/17/21 * Complete Blood Count 08/20/21 * hCG, quantitative (AH) 04/15/22 * hCG, quantitative (AH) 04/18/22 * hCG, quantitative (AH) 04/21/22 * hCG, quantitative (AH) 04/26/22 * 24 Hr Urine Creatinine (AO) 09/03/21 [facility] Evaluation + Plan note Future Appointments Appointment Date:09/09/2022 10:45:00 AM Scheduled Provider:APURVA SINGH MD Location:[facility] Appointment Type: OV OB Routine Follow Up Future Scheduled Tests Laboratory* hCG, quantitative(AO) 07/04/22 * hCG, quantitative(AO) 07/06/22 * hCG, quantitative(AO) 07/08/22 * hCG, quantitative(AO) 07/10/22 * Antibody Screen Gel 08/26/22 * ABO/Rh Gel 08/26/22 * Hepatitis B Surface Antigen 08/26/22 * Rapid Plasma Reagin Test 08/26/22 * Rubella Antibody 08/26/22 * Thyroid Stimulating Hormone 08/26/22 * Complete Blood Count 08/26/22 * Hepatitis C Antibody IgG 08/26/22 * Varicella Zoster Antibody 08/26/22 [facility] Evaluation + Plan note Future Appointments Appointment Date:11/04/2022 10:00:00 AM Scheduled Provider:APURVA SINGH MD Location:[facility] Appointment Type:[facility] OB Routine Follow Up Diagnostic Tests Pending * Varicella Zoster Antibody 10/07/22 * Rapid Plasma Reagin Test 10/07/22 * Rubella Antibody 10/07/22 Future Scheduled Tests Laboratory* hCG, quantitative(AO) 07/04/22 * hCG, quantitative(AO) 07/06/22 * hCG, quantitative(AO) 07/08/22 * hCG, quantitative(AO) 07/10/22 * Antibody Screen Gel 08/26/22 * ABO/Rh Gel 08/26/22 * Hepatitis B Surface Antigen 08/26/22 * Rapid Plasma Reagin Test 08/26/22 * Rubella Antibody 08/26/22 * Thyroid Stimulating Hormone 08/26/22 * Complete Blood Count 08/26/22 * Hepatitis C Antibody IgG 08/26/22 * Varicella Zoster Antibody 08/26/22 Radiology* US OB Limited 10/07/22 [facility] Evaluation + Plan note Future Appointments Appointment Date:11/01/2022 11:00:00 AM Scheduled Provider:APURVA SINGH MD Location:[facility] Appointment Type: OV OB Routine Follow Up Appointment Date:11/04/2022 10:00:00 AM Scheduled Provider:KIKI HIGHTOWER Location:[facility] Appointment Type: OV OB Routine Follow Up Future Scheduled Tests Laboratory* hCG, quantitative(AO) 07/04/22 * hCG, quantitative(AO) 07/06/22 * hCG, quantitative(AO) 07/08/22 * hCG, quantitative(AO) 07/10/22 * Antibody Screen Gel 08/26/22 * ABO/Rh Gel 08/26/22 * Hepatitis B Surface Antigen 08/26/22 * Rapid Plasma Reagin Test 08/26/22 * Rubella Antibody 08/26/22 * Thyroid Stimulating Hormone 08/26/22 * Complete Blood Count 08/26/22 * Hepatitis C Antibody IgG 08/26/22 * Varicella Zoster Antibody 08/26/22 Radiology* US OB Limited 10/25/22 [facility] Evaluation + Plan note Future Appointments Appointment Date:11/22/2022 10:45:00 AM Scheduled Provider:APURVA SINGH MD Location:[facility] Appointment Type:[facility] OB Routine Follow Up Diagnostic Tests Pending * Urine Culture 11/11/22 Future Scheduled Tests Laboratory* hCG, quantitative(AO) 07/04/22 * hCG, quantitative(AO) 07/06/22 * hCG, quantitative(AO) 07/08/22 * hCG, quantitative(AO) 07/10/22 * Antibody Screen Gel 08/26/22 * ABO/Rh Gel 08/26/22 * Hepatitis B Surface Antigen 08/26/22 * Rapid Plasma Reagin Test 08/26/22 * Rubella Antibody 08/26/22 * Thyroid Stimulating Hormone 08/26/22 * Complete Blood Count 08/26/22 * Hepatitis C Antibody IgG 08/26/22 * Varicella Zoster Antibody 08/26/22 Radiology* US OB Limited 10/25/22 [facility] Evaluation + Plan note Future Appointments Appointment Date:11/22/2022 10:45:00 AM Scheduled Provider:APURVA SINGH MD Location:[facility] Appointment Type: OV OB Routine Follow Up Future Scheduled Tests Laboratory* hCG, quantitative(AO) 07/04/22 * hCG, quantitative(AO) 07/06/22 * hCG, quantitative(AO) 07/08/22 * hCG, quantitative(AO) 07/10/22 * Antibody Screen Gel 08/26/22 * ABO/Rh Gel 08/26/22 * Hepatitis B Surface Antigen 08/26/22 * Rapid Plasma Reagin Test 08/26/22 * Rubella Antibody 08/26/22 * Thyroid Stimulating Hormone 08/26/22 * Complete Blood Count 08/26/22 * Hepatitis C Antibody IgG 08/26/22 * Varicella Zoster Antibody 08/26/22 Radiology* OB Limited 10/25/22 [facility] Evaluation + Plan note Future Appointments Appointment Date:12/06/2022 09:30:00 AM Scheduled Provider:APURVA SINGH MD Location:[facility] Appointment Type:[facility] OB Routine Follow Up Future Scheduled Tests Laboratory* hCG, quantitative(AO) 07/04/22 * hCG, quantitative(AO) 07/06/22 * hCG, quantitative(AO) 07/08/22 * hCG, quantitative(AO) 07/10/22 * Antibody Screen Gel 08/26/22 * ABO/Rh Gel 08/26/22 * Hepatitis B Surface Antigen 08/26/22 * Rapid Plasma Reagin Test 08/26/22 * Rubella Antibody 08/26/22 * Thyroid Stimulating Hormone 08/26/22 * Complete Blood Count 08/26/22 * Hepatitis C Antibody IgG 08/26/22 * Varicella Zoster Antibody 08/26/22 Radiology* OB Limited 10/25/22 [facility] Evaluation + Plan note Future Appointments Appointment Date:12/20/2022 10:15:00 AM Scheduled Provider:APUVRA SINGH MD Location:[facility] Appointment Type: OV OB Routine Follow Up Future Scheduled Tests Laboratory* hCG, quantitative(AO) 07/04/22 * hCG, quantitative(AO) 07/06/22 * hCG, quantitative(AO) 07/08/22 * hCG, quantitative(AO) 07/10/22 * Antibody Screen Gel 08/26/22 * ABO/Rh Gel 08/26/22 * Hepatitis B Surface Antigen 08/26/22 * Rapid Plasma Reagin Test 08/26/22 * Rubella Antibody 08/26/22 * Thyroid Stimulating Hormone 08/26/22 * Complete Blood Count 08/26/22 * Hepatitis C Antibody IgG 08/26/22 * Varicella Zoster Antibody 08/26/22 Radiology* OB Limited 10/25/22 [facility] Evaluation + Plan note Future Appointments Appointment Date:12/30/2022 08:45:00 AM Scheduled Provider:APURVA SINGH MD Location:[facility] Appointment Type: OV OB Routine Follow Up Appointment Date:01/03/2023 08:30:00 AM Scheduled Provider:APURVA SINGH MD Location:[facility] Appointment Type:[facility] Future Scheduled Tests Laboratory* hCG, quantitative(AO) 07/04/22 * hCG, quantitative(AO) 07/06/22 * hCG, quantitative(AO) 07/08/22 * hCG, quantitative(AO) 07/10/22 * Antibody Screen Gel 08/26/22 * ABO/Rh Gel 08/26/22 * Hepatitis B Surface Antigen 08/26/22 * Rapid Plasma Reagin Test 08/26/22 * Rubella Antibody 08/26/22 * Thyroid Stimulating Hormone 08/26/22 * Complete Blood Count 08/26/22 * Hepatitis C Antibody IgG 08/26/22 * Varicella Zoster Antibody 08/26/22 Radiology* OB Limited 10/25/22 [facility] Evaluation + Plan note Future Appointments Appointment Date:01/10/2023 08:30:00 AM Scheduled Provider:APURVA SINGH MD Location:[facility] Appointment Type: OV OB Routine Follow Up Diagnostic Tests Pending * Bile Acids Fract/Tot 01/03/23 Future Scheduled Tests Laboratory* hCG, quantitative(AO) 07/04/22 * hCG, quantitative(AO) 07/06/22 * hCG, quantitative(AO) 07/08/22 * hCG, quantitative(AO) 07/10/22 * Antibody Screen Gel 08/26/22 * ABO/Rh Gel 08/26/22 * Hepatitis B Surface Antigen 08/26/22 * Rapid Plasma Reagin Test 08/26/22 * Rubella Antibody 08/26/22 * Thyroid Stimulating Hormone 08/26/22 * Urine Culture 12/30/22 * Complete Blood Count 08/26/22 * Hepatitis C Antibody IgG 08/26/22 * Varicella Zoster Antibody 08/26/22 Radiology* US OB Limited 10/25/22 [facility] Evaluation + Plan note Future Appointments Appointment Date:01/10/2023 08:30:00 AM Scheduled Provider:APURVA SINGH MD Location:[facility] Appointment Type: OV OB Routine Follow Up Future Scheduled Tests Laboratory* hCG, quantitative(AO) 07/04/22 * hCG, quantitative(AO) 07/06/22 * hCG, quantitative(AO) 07/08/22 * hCG, quantitative(AO) 07/10/22 * Antibody Screen Gel 08/26/22 * ABO/Rh Gel 08/26/22 * .Glucose 1 Hour 01/08/23 * .Glucose 2 Hour 01/08/23 * .Glucose 3 Hour 01/08/23 * Hepatitis B Surface Antigen 08/26/22 * Rapid Plasma Reagin Test 08/26/22 * Rubella Antibody 08/26/22 * Thyroid Stimulating Hormone 08/26/22 * Urine Culture 12/30/22 * Complete Blood Count 08/26/22 * Hepatitis C Antibody IgG 08/26/22 * Varicella Zoster Antibody 08/26/22 Radiology* US OB Limited 10/25/22 [facility] Evaluation + Plan note Future Appointments Appointment Date:09/29/2023 10:00:00 AM Scheduled Provider: Location:[facility] Appointment Type:US OB Limited Appointment Date:10/06/2023 09:30:00 AM Scheduled Provider:APURVA SINGH MD Location:[facility] Appointment Type: OV OB Routine Follow Up Future Scheduled Tests Laboratory* ABO/Rh (Gel) 09/08/23 * Antibody Screen (Gel) 09/08/23 * .Glucose 1 Hour 01/08/23 * .Glucose 2 Hour 01/08/23 * .Glucose 3 Hour 01/08/23 * Hepatitis B Surface Antigen 09/08/23 * Rapid Plasma Reagin Test 09/08/23 * Rubella Antibody 09/08/23 * Thyroid Stimulating Hormone 09/08/23 * Urine Culture 12/30/22 * Urine Culture 09/08/23 * Complete Blood Count 09/08/23 * Varicella Zoster Antibody 09/08/23 Radiology* US OB Limited 10/25/22 * OB Limited 09/29/23 [facility] Evaluation + Plan note Future Appointments Appointment Date:09/29/2023 10:00:00 AM Scheduled Provider: Location:[facility] Appointment Type:US OB Limited Appointment Date:10/06/2023 09:30:00 AM Scheduled Provider:APURVA SINGH MD Location:[facility] Appointment Type:[facility] OB Routine Follow Up Diagnostic Tests Pending * Rapid Plasma Reagin Test 09/23/23 * Rubella Antibody 09/23/23 * Varicella Zoster Antibody 09/23/23 Future Scheduled Tests Laboratory* .Glucose 1 Hour 01/08/23 * .Glucose 2 Hour 01/08/23 * .Glucose 3 Hour 01/08/23 * Urine Culture 12/30/22 * Urine Culture 09/08/23 Radiology* OB Limited 10/25/22 * OB Limited 09/29/23 [facility] Evaluation + Plan note Future Appointments Appointment Date:10/06/2023 09:30:00 AM Scheduled Provider:APURVA SINGH MD Location:[facility] Appointment Type:[facility] OB Routine Follow Up Future Scheduled Tests Laboratory* .Glucose 1 Hour 01/08/23 * .Glucose 2 Hour 01/08/23 * .Glucose 3 Hour 01/08/23 * Urine Culture 12/30/22 * Urine Culture 09/08/23 Radiology* OB Limited 10/25/22 [facility] Evaluation + Plan note Future Appointments Appointment Date:11/24/2023 08:45:00 AM Scheduled Provider:APURVA SINGH MD Location:[facility] Appointment Type:[facility] OB Routine Follow Up Future Scheduled Tests Laboratory* .Glucose Fasting 11/03/23 * .Glucose 1 Hour 01/08/23 * .Glucose 1 Hour 11/03/23 * .Glucose 2 Hour 01/08/23 * .Glucose 2 Hour 11/03/23 * .Glucose 3 Hour 01/08/23 * .Glucose 3 Hour 11/03/23 * Glucose 1 Hour Challenge 11/03/23 * Rapid Plasma Reagin Test 11/03/23 * Urine Culture 12/30/22 * Urine Culture 09/08/23 * Complete Blood Count 11/03/23 [facility] Evaluation + Plan note Future Appointments Appointment Date:11/24/2023 08:45:00 AM Scheduled Provider:APURVA SINGH MD Location:[facility] Appointment Type:[facility] OB Routine Follow Up Future Scheduled Tests Laboratory* .Glucose 1 Hour 01/08/23 * .Glucose 1 Hour 11/03/23 * .Glucose 2 Hour 01/08/23 * .Glucose 2 Hour 11/03/23 * .Glucose 3 Hour 01/08/23 * .Glucose 3 Hour 11/03/23 * Glucose 1 Hour Challenge 11/03/23 * Rapid Plasma Reagin Test 11/03/23 * Urine Culture 12/30/22 * Urine Culture 09/08/23 * Complete Blood Count 11/03/23 [facility] Evaluation + Plan note Future Appointments Appointment Date:12/05/2023 10:15:00 AM Scheduled Provider:APURVA SINGH MD Location:[facility] Appointment Type:[facility] OB Routine Follow Up Future Scheduled Tests Laboratory* .Glucose 1 Hour 01/08/23 * .Glucose 1 Hour 11/03/23 * .Glucose 2 Hour 01/08/23 * .Glucose 2 Hour 11/03/23 * .Glucose 3 Hour 01/08/23 * .Glucose 3 Hour 11/03/23 * Glucose 1 Hour Challenge 11/03/23 * Rapid Plasma Reagin Test 11/21/23 * Rapid Plasma Reagin Test 11/03/23 * Urine Culture 12/30/22 * Urine Culture 09/08/23 * Complete Blood Count 11/21/23 * Complete Blood Count 11/03/23 [facility] Evaluation note* Diagnosis Lower abdominal pain- Primary Abdominal pain, other specified site Vaginal bleeding in , third trimester [facility] [place] [facility] Diagnosis Genetic testing Other investigation and testing for procreative management [facility] [place] [facility]* Diagnosis Chest congestion- Primary Other symptoms involving respiratory system and chest Acute cough documented in this encounter [facility] course Narrative No data available for this section [facility] Hospital Discharge instructions No data available for this section [facility] Note* FRANNY ABURTO MD: SIGN, VERIFY Event Display: VL Venous US/Doppler Both Legs (DVT) AOH [facility] Progress note No data available for this section [facility] Summary Purpose Family History No Family History Records Found Advance Directives No Advanced Directives Records FoundNo Advanced Directives Records FoundNo Advanced Directives Records FoundNo Advanced Directives Records Found Additional Source Comments Care Team (unrecognized sect ion and content) Care Team Personnel Name: PHYSICIAN, NONE Position: Physician Member Role: Primary Care Physician Name: Citlali Castellon RN Position: OB RN Member Role: RN Name: RODNEY Saavedra Position: OB RN Member Role: RN Care Team Related Persons Name: RILEY RUIZ Address: Home [address], [place] [phone] [place] Name: AXEL RUIZ Address: Home [address] [place] [phone] Name: ORTIZ RUIZ Address: Home [address] [place], [place] [phone] Name: REJI RUIZ Address: Home [address] [place] [phone] Name: HILARY RUIZ Care Team Personnel Name: PHYSICIAN, NONE Position: Physician Member Role: Primary Care Physician Name: Kiki Bonilla RN Position: OB RN Member Role: RN Care Team Related Persons Name: RUIZRILEY PEREZ Address: Home [address], [place] [phone] [place] Name: AXEL RUIZ Address: Home [address], [place] [phone] Name: ORTIZ RUIZ Address: Home [address] [place], [place] [phone] Name: REJI RUIZ Address: Home [address] [place], [place] [phone] Name: JOSEPH HILARY Care Team Personnel Name: PHYSICIAN, NONE Position: Physician Member Role: Primary Care Physician Name: RODNEY Lane Position: OB RN Member Role: Nursing Name: Abimbola Puga RN Position: OB RN Member Role: RN Name: Gissel Crawford RN Position: OB RN Member Role: Nursing Name: RODNEY Saavedra Position: OB RN Member Role: RN Care Team Related Persons Name: RILEY RUIZ Address: Home [address] [place] [phone] Name: AXEL RUIZ Address: Home [address] [place], [place] [address] [phone] Name: ORTIZ RUIZ Address: Home [address] [place], [place] [phone] Name: REJI RUIZ Address: Home [address] [place], [place] [phone] Name: HILARY RUIZ Care Team Personnel Name: PHYSICIAN, NONE Position: Physician Member Role: Primary Care Physician Name: RODNEY Borges Position: OB RN Member Role: RN Name: Mine Romo RN Position: OB RN Member Role: RN Care Team Related Persons Name: RILEY RUIZ Address: Home [address], [place] [phone] Name: AXEL RUIZ Address: Home [address] [place] [phone] Name: ORTIZ RUIZ Address: Home [address] [place], [place] [phone] Name: PARVEZ RUIZINGTON Sage Address: Home [address] [place], [place] [phone] Name: HILARY RUIZ Campaign Analyst Relationship Specialty Start Date End Date Abimbola Dewitt, DO [address] [place] [address] PCP - General 12/03/19 [place] [address] Attending Physician Medical Clinical Genetics 10/06/22 Care Team Personnel Name: PHYSICIAN, NONE Position: Physician Member Role: Primary Care Physician Care Team Related Persons Name: RILEY RUIZ Address: Home [address] [place] [place] [id number] [place] Name: AXEL RUIZ Address: Home [address] [place] [id number] Name: ZABRINA RUIZN Dar Address: Home [address] [place], [place] [id number] Name: REJI RUIZ Address: Home [address], [place] [id number] Name: HILARY RUIZ Campaign Analyst Relationship Specialty Start Date End Date Liz Thompson PCP - General Pediatrics 04/11/13 Personnel Name: PHYSICIAN, PATIENT UNSURE Care Team (unrecognized sect ion and content) Care Team Personnel Name: PHYSICIAN, PATIENT UNSURE Member Role: Primary Care Physician Care Team Related Persons Name: RILEY RUIZ Address: [place] [address] [place] [phone] [place] Name: AXEL RUIZ Edilia Address: [address] [place] [id number] Name: REJI RUIZ Address: Home [address] [place] [id number] Name: HILARY RUIZ Care Team Personnel Name: PHYSICIAN, PATIENT UNSURE Member Role: Primary Care Physician Care Team Related Persons Name: RILEY RUIZ Address: [place] [address] [place] [id number] [place] Name: JOSEPH AXEL Edilia Address: [address] [place] [id number] Name: REJI RUIZ Address: Home [address] [place] [id number] Name: HILARY RUIZ Care Team Personnel Name: PHYSICIAN, PATIENT UNSURE Member Role: Primary Care Physician Care Team Related Persons Name: RILEY RUIZ Address: [place] [address] [place] [phone] [place] Name: RUIZ MYMILAGROS Edilia Address: [address] [place] [id number] Name: REJI RUIZ Address: Home [address] [place] [id number] Name: HILARY RUIZ Care Team Personnel Name: PHYSICIAN, PATIENT UNSURE Member Role: Primary Care Physician Care Team Related Persons Name: RILEY RUIZ F Address: Home [address], [place] [id number] [place] Name: AXEL RUIZ L Address: Home [address], [place] [id number] Name: PARVEZ RUIZINGTON O Address: Home [address], [place] [id number] Name: CELINA RUIZCH Care Team Personnel Name: PHYSICIAN, PATIENT UNSURE Member Role: Primary Care Physician Care Team Related Persons Name: RILEY RUIZ F Address: Home [address], [place] [phone] [place] Name: MY RUIZMILAGROS L Address: Home [address], [place] [id number] Name: REJI RUIZ O Address: Home [address], [place] [id number] Name: HILARY RUIZ Care Team Personnel Name: PHYSICIAN, PATIENT UNSURE Member Role: Primary Care Physician Care Team Related Persons Name: RILEY RUIZ Address: Home [address], [place] [id number] [place] Name: RUIZ, MYMILAGROS Edilia Address: Home [address], [place] [id number] Name: RUIZREJI PEREZ O Address: Home [address], [place] [phone] Name: HILARY RUIZ Care Team Personnel Name: PHYSICIAN, PATIENT UNSURE Member Role: Primary Care Physician Care Team Related Persons Name: RILEY RUIZ Address: Home [address], [place] [phone] [place] Name: RUIZAXEL PEREZ Edilia Address: Home [address], [place] [phone] Name: REJI RUIZ O Address: Home [address], [place] [phone] Name: HILARY RUIZ Care Team Personnel Name: PHYSICIAN, PATIENT UNSURE Member Role: Primary Care Physician Care Team Related Persons Name: RILEY RUIZ Address: Home [address], [place] [id number] [place] Name: MY RUIZMILAGROS L Address: Home [address], [place] [phone] Name: REJI RUIZ O Address: Home [address], [place] [id number] Name: HILARY RUIZ Care Team Personnel Name: PHYSICIAN, PATIENT UNSURE Member Role: Primary Care Physician Care Team Related Persons Name: RUIZRILEY Anel Address: Home [address], [place] [phone] [place] Name: AXEL RUIZ Edilia Address: Home [address], [place] [phone] Name: REJI RUIZ O Address: Home [address], [place] [phone] Name: HILARY RUIZ Care Team Personnel Name: PHYSICIAN, PATIENT UNSURE Member Role: Primary Care Physician Care Team Related Persons Name: RUIZRILEY Anel Address: Home [address], [place] [id number] [place] Name: AXEL RUIZ Address: Home [address], [place] [phone] Name: REJI RUIZ Address: Home [address], [place] [phone] Name: HILARY RUIZ Care Team Personnel Name: PHYSICIAN, PATIENT UNSURE Member Role: Primary Care Physician Care Team Related Persons Name: RUIZRILEY PEREZ Anel Address: Home [address], [place] [id number] [place] Name: AXEL RUIZ Address: Home [address], [place] [id number] Name: ORTIZ RUIZ Address: Home [address] [place], [place] [id number] Name: REJI RUIZ Address: Home [address], [place] [phone] Name: HILARY RUIZ Care Team Personnel Name: PHYSICIAN, PATIENT UNSURE Member Role: Primary Care Physician Care Team Related Persons Name: RUIZRILEY Anel Address: Home [address], [place] [id number] [place] Name: AXEL RUIZ Address: Home [address], [place] [address] Name: ORTIZ RUIZ Address: Home [address] [place], [place] [id number] Name: REJI RUIZ Address: Home [address], [place] [phone] Name: HILARY RUIZ Care Team Personnel Name: PHYSICIAN, NONE Position: Physician Member Role: Primary Care Physician Care Team Related Persons Name: RUIZRILEY PEREZ F Address: Home [address], [place] [phone] [place] Name: AXEL RUIZ Address: Home [facility] [address] [place] [phone] Name: ORTIZ RUIZ Address: Home [address] [place] [id number] Name: REJI RUIZ Address: Home [address] [place] [phone] Name: HILARY RUIZ Care Team Personnel Name: PHYSICIAN, NONE Position: Physician Member Role: Primary Care Physician Care Team Related Persons Name: RILEY RUIZ Address: Home [facility] [address] [place] [phone] [place] Name: AXEL RUIZ Address: Home [facility] [address] [place] [phone] Name: ORTIZ RUIZ Address: Home [address] [place] [id number] Name: REJI RUIZ Address: Home [facility] [address] [place] [id number] Name: HILARY RUIZ Care Team Personnel Name: PHYSICIAN, NONE Position: Physician Member Role: Primary Care Physician Care Team Related Persons Name: RILEY RUIZ Address: Home [facility] [address] [place] [phone] [place] Name: AXEL RUIZ Address: Home [facility] [address] [place] [phone] Name: ORTIZ RUIZ Address: Home [address] [place] [id number] Name: REJI RUIZ Address: Home [address], [place] [phone] Name: HILARY RUIZ Source Comments (unrecognize d section and content) In the event this informatio n is protected by the Federal Confidentiality of Alcohol and Drug Abuse Patient Records regulations: The Federal rules restrict any use of the information to criminally investigate or prosecute any alcohol or drug abuse patient.[facility] Health[facility] the event this information is protected by the Federal Confidentiality of Alcohol and Drug Abuse Patient Records regulations: The Federal rules restrict any use of the information to criminally investigate or prosecute any alcohol or drug abuse patient.[facility] Reason for Visit (unrecogniz ed section and content) Reason Comments Diarrhea Pt denied blood, muc us nausea, body aches pain rated 3, x3 days Follow Up Pt reported 28 wk pr egnancy, reported +FM Specialty Diagnoses / Procedures Referred By Contac t Referred To Contact Lab Diagnoses Genetic testing Procedures 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 [place] [address] Referral ID Status Reason Start Date Expiration Date Visits Re quested Visits Authorized [id number] Open 10/06/2022 10/06/2023 1 1 Reason Comments Cough Chest congestion x1 week INFORMATION SOURCE (unrecogn ized section and content) DATE CREATED AUTHOR 09/03/2023 [facility] DATE CREATED AUTHOR AUTHOR'S ORGANIZ ATION 10/02/2023 [facility] ([place]) DATE CREATED AUTHOR AUTHOR'S ORGANIZ ATION 12/02/2023 [facility] DATE CREATED AUTHOR AUTHOR'S ORGANIZ ATION 12/03/2023 [facility] FOR RECORDS PERTAINING TO PATIENTS WHO ARE OR HAVE BEEN ENROLLED IN A CHEMICAL DEPENDENCY/SUBSTANCEABUSE PROGRAM, SOME INFORMATION MAY BE OMITTED. This clinical summary was aggregated from multiple sources. Caution should be exercised in using it in the provision of clinical care. This summary normalizes information from multiple sources, and as a consequence, information in this document may materially change the coding, format and clinical context of patient data. In addition, data may be omitted in some cases. CLINICAL DECISIONS SHOULD BE BASED ON THE PRIMARY CLINICAL RECORDS. [facility] [employer] [facility]. provides no warranty or guarantee of the accuracy or completeness of information in this document.
[2023-12-07 07:45] VITALS: RESP 15; TEMP 36.1; O2SAT 97
[2023-12-07 07:47] VITALS: PULSE 105; O2SAT 97
[2023-12-07 07:49] VITALS: BP 112/59; PULSE 101
[2023-12-07 09:11] VITALS: BMI 50.5
[2023-12-07] MEDS: Lactated Ringers 1,000 ML 999 ML IV (09:20)
[2023-12-07 09:50] LABS: Absolute Lymphocyte Count 2.23 X10^3/uL (0.83-4.51); Basophil# 0.04 X10^3/uL; Basophil% 0.3 % (0-1); Eosinophil# 0.01 X10^3/uL; Eosinophils% 0.1 % (0-5); Hemoglobin 10.5 g/dL (12.0-15.0); Lymphocyte # 2.23 X10^3/ul (0.83-4.51); Lymphocyte % 18.4 % (19-41); Mean Corp Hgb Conc 31.8 g/dL (32-36); Mean Corpuscular Hgb 24.8 pg (27.0-32.0); Mean Corpuscular Volume 77.8 fL (81-99); Monocyte# 0.79 X10^3/uL; Monocyte% 6.5 % (0-10); NRBC Flagged by Analyzer 0 % (0-5); Neutrophil # 8.97 X10^3/uL (2.7-7.7); Neutrophil % 74.3 % (47-70); Platelet Count 161 K/mm3 (150-450); RBC Distribution Width CV 14.6 % (11.6-14.6); RBC Distribution Width SD 41.2 fl (35.1-43.9); Red Blood Count 4.24 M/mm3 (4.2-5.4); White Blood Count 12.1 K/mm3 (4.4-11.0)
--- NOTE | 2023-12-07 09:55 | OB.TRI.HP_ITS ---
HPI - General General Date of Admission: 12/07/23 Date of Service: 12/07/23 Chief Complaint: Contractions HPI Narrative LESTER BASURTO, is a 23 F 6 para 5 who presents to labor and delivery with some contractions at 30+ weeks gestation. Her care is complicated by 5 prior sections, gestational diabetic on NPH insulin twice daily, and a history of labor with her fourth (all babies delivered at term). She has also had multiple urinary tract infections with her most recent being about 3 to 4 weeks ago and maternal- medicine has placed her on daily Keflex for prophylaxis. She was seen by Dr. Singh in [place] and eventually transferred to [facility] and is followed in [place] with this . She indicates that she woke up this morning with some contractions at about 3 AM and they have not lessened. [facility] Medical History History of migraine History of kidney stones History of pre-eclampsia Anxiety and depression delivery delivered Home Medications ?Medication ?Instructions ?Recorded ?Last Taken ?Type vitamin with calcium 1 tab PO DAILY 04/14/21 02/02/23 08:00 History no.72-iron 27 mg-folic acid 1 mg 1 TAB tablet ( Vitamins Plus Low Iron) famotidine 20 mg tablet (Acid-Pep) 20 mg PO DAILY 02/02/23 02/01/23 10:00 History 20 mg ferrous sulfate 325 mg (65 mg 325 mg PO QODAY 02/02/23 02/02/23 08:00 History iron) tablet (Feosol) 325 mg insulin detemir U-100 100 unit/mL 24 unit subcut QHS 02/02/23 02/01/23 21:30 History (3 mL) subcutaneous pen (Levemir 24 units FlexPen) ursodiol 300 mg capsule 300 mg PO TID 02/02/23 02/02/23 08:00 History 300 mg Allergy/AdvReac Type Severity Reaction Status Date / Time No Known Allergies Allergy Verified 08/17/23 08:56 Family History Grandfather Hypertension Grandmother Diabetes CVA (cerebral vascular accident) Hypertension Lupus Grandfather Diabetes Myocardial infarction CAD (coronary artery disease) Hypertension Surgical History History of Social History Smoking Status: Never smoker History Elective abortions Hx Para 0 Spontaneous abortions Hx # Term Pregnancies Ectopic pregnancies Hx # Pregnancies Multiple births # of living children ROS Constitutional Constitutional: Reports systems reviewed and no addt'l complaints, except as documented Physical Exam Narrative Afebrile, vital signs stable. Abdomen size appropriate for gestational age. Cervix is 1/thick, high, anterior. No bleeding noted. NST FHR Rate Baby A Decelerations:: None NST Reactive:: Appropriate for gestational age FHR Category:: Category I Assessment & Plan (1) labor in third trimester: PLAN: Transient labor at 30+ weeks gestation. Will check fibronectin and hydrate with IV fluids. Will also send urine for UA C&S. Contractions are spacing with IV fluid. If no cervical change and contractions subside, will discharge to home with follow-up with her regular maternal- medicine physician.
[2023-12-07 10:14] LABS: Fetal Fibronectin Negative; Record Kit Lot#, fFN A4033
[2023-12-07] MEDS: Lactated Ringers 1,000 ML 150 ML IV (10:15)
[2023-12-07 10:43] LABS: Color, Urine Yellow (Yellow); Glucose, Dipstick Normal (Normal); Ketone-Dipstick Negative (Negative); Leukocyte Esterase-Dipstick 25 /ul (Negative); Nitrite-Dipstick Negative (Negative); Occult Blood-Urine 10 /ul (Negative); Protein-Dipstick 30 mg/dl (Negative); Urine Bilirubin Dipstick Negative (Negative); Urine Clarity Sl. Cloudy (Clear); Urine Urobilinogen 1 mg/dl (Normal)
[2023-12-07 10:56] LABS: Group B Strep DNA By PCR Negative (Negative); Internal Control PASS; Probe Check PASS; Specimen Processing Control PASS
[2023-12-07 11:18] LABS: Amphetamine Urine VISTA NEGATIVE (<1000 ng/mL); Barbiturate Urine VISTA NEGATIVE (< 200 ng/mL); Benzodiazepine Urine VISTA NEGATIVE (< 200 ng/mL); Cocaine Urine VISTA NEGATIVE (< 300 ng/mL); Ecstacy Urine VISTA NEGATIVE (< 500 ng/mL); Methadone Urine VISTA NEGATIVE (< 300 ng/mL); PCP Urine VISTA NEGATIVE (< 25 ng/mL); THC Urine VISTA NEGATIVE (< 50 ng/mL); Vista UDS pH Range 7
[2023-12-07 11:56] VITALS: BP 129/59; PULSE 95; O2SAT 100
[2023-12-07] MEDS: Terbutaline 1 MG/ML Vial 0.25 MG SC (11:58)
== END 2023-12-07 14:12 | disposition home or self-care (01) ==
LOC: WPOUT 07:35 → WP 09:44
PROVIDERS: Obstetrics & Gynecology; Referring Provider Obstetrics & Gynecology; Visit Provider Obstetrics & Gynecology
DX: O60.03 Preterm labor without delivery, third trimester (principal); O34.219 Maternal care for unspecified type scar from previous cesarean delivery; O23.42 Unspecified infection of urinary tract in pregnancy, second trimester; Z3A.00 Weeks of gestation of pregnancy not specified; Z79.2 Long term (current) use of antibiotics; Z87.59 Personal history of other complications of pregnancy, childbirth and the puerperium
CPT/HCPCS: 96360; 96361 ×4; 96372; 36415; 59025; 59050; 80307; 81002; 82731; 85025; 87081; 87086; 87088; 87653; 99221; J7120; G0378

== ENCOUNTER 2024-01-08 04:05 | Inpatient (IN) | payer MEDICAID, SELFPAY ==
[2024-01-08] VITALS (18 sets, daily range): BP systolic 96–135; BP diastolic 47–97; PULSE 53–124; RESP 16–20; TEMP 35.6–36.4; O2SAT 97–100; BMI 51.0
--- NOTE | 2024-01-08 04:30 | HP.PCM.OB_ITS ---
HPI - General General Date of Admission: 01/08/24 HPI Narrative LESTER BASURTO, is a 23 F @ 34w5d with GDMA2, cholestasis and 5 previous c sections who presents with constant lower abdominal pain 10/10 over her incision, pain on palpation over her incision. she denies any vaginal bleeding or lof, still feeling FM. BS controlled with insulin in the , she has been seeing Dr Singh and was planning delivery at [facility] in [place]. Maternal Data Information YOANDY Calculator Estimated Delivery Date Method Current WG Current Estimate 02/14/24 Manual 34w 5d PFSH [facility] Medical History (Updated 01/08/24 @ 04:[address] Elizabeth Farooq MD) History of migraine History of kidney stones History of pre-eclampsia Anxiety and depression delivery delivered Home Medications ?Medication ?Instructions ?Recorded ?Last Taken ?Type vitamin with calcium 1 tab PO DAILY 04/14/21 01/07/24 History no.72-iron 27 mg-folic acid 1 mg tablet ( Vitamins Plus Low Iron) ferrous sulfate 325 mg (65 mg 325 mg PO QODAY 02/02/23 02/02/23 08:00 History iron) tablet (Feosol) 325 mg ursodiol 300 mg capsule 500 mg PO TID cholestatis 02/02/23 01/07/24 History cephalexin 500 mg capsule 500 mg PO DAILY Hx UTI 01/08/24 01/07/24 History insulin NPH isoph U-100 human 100 30 unit subcut DAILY GDM 01/08/24 01/07/24 History unit/mL (3 mL) subcutaneous pen (Humulin N NPH U-100 Insulin KwikPen) Allergy/AdvReac Type Severity Reaction Status Date / Time No Known Allergies Allergy Verified 01/08/24 03:46 Family History Grandfather Hypertension Grandmother Diabetes CVA (cerebral vascular accident) Hypertension Lupus Grandfather Diabetes Myocardial infarction CAD (coronary artery disease) Hypertension Surgical History (Updated 01/08/24 @ 04:[address] Elizabeth Farooq MD) History of Social History Smoking Status: Never smoker History Elective abortions Hx Para 0 Spontaneous abortions Hx # Term Pregnancies Ectopic pregnancies Hx # Pregnancies Multiple births # of living children NST FHR Rate Baby A Baseline: 130 Variability:: Moderate Accelerations:: 15 x 15 Decelerations:: None NST Reactive:: Yes FHR Category:: Category I Uterine Activity:: irregular ROS Constitutional Constitutional: Reports systems reviewed and no addt'l complaints, except as documented Eyes Eyes: Denies change in vision ENT HEENT: Reports systems reviewed and no addt'l complaints, except as documented; Denies headache(s) Cardiovascular Cardiovascular: Reports systems reviewed and no addt'l complaints, except as documented; Denies chest pain or dyspnea Respiratory/Chest Respiratory/Chest: Reports systems reviewed and no addt'l complaints, except as documented Gastrointestinal Gastrointestinal: Reports systems reviewed and no addt'l complaints, except as documented; Denies abdominal pain Genitourinary Genitourinary: Reports systems reviewed and no addt'l complaints, except as documented, contractions Details: present (irregular) and movement Details: present; Denies dysuria or genital lesions Musculoskeletal Musculoskeletal: Reports systems reviewed and no addt'l complaints, except as documented Neurologic Neurologic: Reports systems reviewed and no addt'l complaints, except as documented Endocrine Endocrinology: Reports systems reviewed and no addt'l complaints, except as documented Vital Signs Vital Signs Vital Signs: 01/08/24 03:34 01/08/24 03:34 01/08/24 03:34 Temperature 97.0 F L Temperature Source Temporal Pulse Rate Respiratory Rate 18 Blood Pressure BP Systolic BP Diastolic Pulse Ox 01/08/24 03:37 01/08/24 03:37 01/08/24 03:39 Temperature Temperature Source Pulse Rate 124 H Respiratory Rate Blood Pressure 133/66 H BP Systolic 133 BP Diastolic 66 Pulse Ox 98 01/08/24 03:39 Temperature Temperature Source Pulse Rate 78 Respiratory Rate Blood Pressure BP Systolic BP Diastolic Pulse Ox Weight Weight: 288 lb 6.4 oz Body Mass Index (BMI) 51.0 Physical Exam Const alert, oriented x3, no apparent distress and healthy appearing HEENT normocephalic and moist oral mucous membranes Head and Scalp: atraumatic Neck full ROM, no lymphadenopathy, supple and thyroid normal General: trachea midline Lymph Lymphatic: no lymphadenopathy noted Chest inspection of chest normal Resp normal respiratory effort Cardio regular rate GI normal to inspection, nondistended, normoactive bowel sounds, soft to palpation and non-tender Inspection: gravid external exam normal Manual OB Exam: estimated gestational size appropriate, presentation cephalic, dilated, effaced and station Extremity normal to inspection General Extremity: Negative for edema Skin no rashes or lesions noted Neuro no focal motor deficits and deep tendon reflexes 2+ bilaterally Motor Exam: strength 5/5 throughout and clonus absent Psych mental status grossly normal Labs Labs Labs: Blood Type B POSITIVE Antibody Screen NEGATIVE Hct 32.9 % (37-47) L Hgb 10.5 g/dL (12.0-15.0) L Obstetrics Ultrasound Syphilis Total Ab Pending VZV IgG Antibody 164 index (Immune >165) L Rubella IgG Antibody 201.2 IU/mL Hep Bs Antigen Negative (Negative) Hepatitis C Antibody Pending Hepatitis C Ab (EIA) <0.1 s/co ratio (0.0-0.9) HIV 1&2 Antibody Non-Reactive (Nonreactive) Glucose 1 Hr 50 gm 145 mg/dL (70-140) H Gest Glucose Tolerance MG/DL Group B Strep DNA Negative (Negative) Rhogam given: No Assessment & Plan (1) labor in third trimester: (2) Abdominal pain during in third trimester: (3) History of pre-eclampsia: (4) Previous delivery affecting : COMMENT: x5 (5) Cholestasis: (6) Gestational diabetes requiring insulin: (7) 34 weeks gestation of : (8) Sterilization: COMMENT: title 19 form received PLAN: Plan suspect uterine rupture recommend proceeding with immediate delivery. patient not meeting clinical criteria to be stable to transport due to suspicion of uterine rupture. labs drawn and proceed with immediate delivery. records received from [facility] only and title 19 form, reviewed. After discussing the patient's diagnosis and treatment plan options, patient wishes to proceed with surgical management. I have discussed with the patient the risks, benefits, and alternatives of the procedure which include but are not limited to risks of anesthesia, bleeding, infection, possible damage to bowel, bladder, or surrounding vasculature which could lead to additional surgery to evaluate any complications. Patient expressed understanding and agrees to procedure.
[2024-01-08 04:41] LABS: Absolute Lymphocyte Count 2.04 X10^3/uL (0.83-4.51); Absolute Neutrophil Count 4.2 X10^3/uL (2.0-7.7); Basophil# 0.03 X10^3/uL; Basophil% 0.4 % (0-1); Eosinophil# 0.17 X10^3/uL; Eosinophils% 2.4 % (0-5); Hematocrit 32.9 % (37-47); Hemoglobin 10.5 g/dL (12.0-15.0); Lymphocyte # 2.04 X10^3/ul (0.83-4.51); Lymphocyte % 28.5 % (19-41); Mean Corp Hgb Conc 31.9 g/dL (32-36); Mean Corpuscular Hgb 24.4 pg (27.0-32.0); Mean Corpuscular Volume 76.3 fL (81-99); Mean Platelet Vol. 12.3 fl (6.2-12.0); Monocyte# 0.67 X10^3/uL; Monocyte% 9.3 % (0-10); NRBC Flagged by Analyzer 0 % (0-5); Neutrophil % 58.6 % (47-70); Platelet Count 130 K/mm3 (150-450); RBC Distribution Width CV 14.5 % (11.6-14.6); RBC Distribution Width SD 39.8 fl (35.1-43.9); Red Blood Count 4.31 M/mm3 (4.2-5.4); White Blood Count 7.2 K/mm3 (4.4-11.0)
[2024-01-08] MEDS: Sodium Citrate/Citric Acid 30 ML UDC PO (04:45)
--- NOTE | 2024-01-08 04:47 | EX.PCM.OBRPT ---
Assessment & Plan (1) Sterilization: COMMENT: title 19 form received (2) 34 weeks gestation of : (3) Gestational diabetes requiring insulin: (4) Cholestasis: (5) Previous delivery affecting : COMMENT: x5 (6) Abdominal pain during in third trimester: (7) labor in third trimester: (8) History of pre-eclampsia: (9) Status post bilateral salpingectomy: (10) delivery delivered: COMMENT: RLTCS BS 34 weeks care at [facility]. suspected uterine rupture Maternal Data Information YOANDY Calculator Estimated Delivery Date Method Current WG Current Estimate 02/14/24 Manual 34w 5d Operative Report (OB) Cecarean Details Procedure Type: low transverse Surgeon: Elizabeth Farooq Date of Procedure: 01/08/24 Procedure Start Time: : Procedure Stop Time: 06:08 Pre-Operative Diagnosis: Other Other Pre-Operative diagnosis: see a/p comments Post-Operative Diagnosis: Same as Pre-operative diagnosis Classification: Scheduled Type of Anesthesia: Spinal Special Medications: none Antibiotic Given: Ancef 3 grams IV x1 Drain: Dillon to straight drain Estimated Blood Loss: 500 Fluids Replaced: crystalloid Findings Description of surgery: Spinal anesthesia was placed without difficulty, patient had anxiety during placement. Dillon catheter was placed. The patient was placed in the dorsal supine position with leftward tilt. Patient was prepped and draped in the normal sterile fashion. Pfannenstiel skin incision was made with the scalpel and carried through to the underlying layer of fascia with the scalpel. Fascia was nicked in the midline and the incision extended laterally. The rectus bellies were dissected off superiorly and inferiorly both sharply and with the bovie, scar tissue encountered but taken down with out complication. The peritoneum was entered sharply. significant omental adhesions encountered and taken down with the ligasure. sharp dissection employed with good visualization of the bladder. The incision was stretched and a very thin FILIPE seen with significant scarring present, which was taken down sharply with the scissors and then a low transverse uterine incision was made with the scalpel. The infant's head was delivered atraumatically followed by the anterior and posterior shoulders without complication the rest of the delivered. The cord was clamped and cut and the was handed off to awaiting nurse. The placenta was delivered spontaneously immediately following and was noted to be intact and have a three-vessel cord. The uterus was exteriorized cleared of all clots and debris, and the incision was closed in a single layer closure using #1 Monocryl. The ovaries and fallopian tubes were noted to be within normal limits. Patient had desired sterilization and was counseled preoperatively regarding irreversibility and permanency. Therefore bilateral fallopian tubes were elevated and transected across using a LigaSure device starting proximally to distally without complication the entire fallopian tubes were removed. The uterus was returned to the maternal abdomen and gutters were cleared of all clots and debris. The peritoneum was closed with 3-0 Monocryl in a running fashion. Gloves were changed prior to fascial closure. Fascia was closed with 0 PDS in a running fashion. Subcutaneous tissue was copiously irrigated and the skin was closed with 3-0 Monocryl in a subcuticular fashion. Mepilex dressing was applied without complication. Patient was taken to recovery in stable condition. Surgical findings: scarred uterus omental adhesions thin FILIPE Amniotic Membrane Rupture Type: Artificial Amniotic Fluid Description: Clear Placental Delivery Description: Spontaneous (marginal abruption aong the peripheray noted) Percentage of Placenta Abruption: 5 Specimen collected: Yes Description of specimen(s) removed: Placenta Cord Vessel Description: 3 Vessels Delayed Cord Clamping: Yes Airport Operations Specialist slurry plant operator: Yes Flour Blender Helper: Apurva Boland Tasks completed by first assistant manager: Opening & closing, Retracting and Other (Assisting with delivery of the infant) Additional facilities assistant?: No Complications Complications: No Admit VTE Documentation VTE Present on Admission: No VTE Mechan Device Prophylaxis: SCD's Multi Select Codes Urinary/Genital Urinary/Genital CPT Codes: 44062 C/S+TL and 29162 delivery+PP Care([facility])
--- NOTE | 2024-01-08 04:54 | DCINST_ITS ---
Discharge Instructions Diet Discharge Diet: No restrictions DC O2, CPAP, BIPAP needs Additional Home O2 Discharge instructions: No Dressing / Incision Discharge Activity: May Not Drive (for 2 weeks or while taking narcotic pain medications.), May Shower and May Take a Tub Bath (in 7 days) May shower in (days): 0 May resume sexual activity in: 4-6 weeks Weight Bearing Status: Full weight bearing Lifting Restrictions: 20 pounds Dressing / Incision Call your doctor if your incision/area has: Continuous Slow Oozing, Sudden Increased Bleeding, Increased Pain/ Swelling, Increased Redness and Foul Smelling Discharge Call your doctor if you observe: Fever of 101 or Higher and Using more than 1 pad per hour (for 2 hours) Suture Line Care: Avoid Pulling/Pushing and Avoid Pinching/Bending Cleanse incision/area with: Soap & Water and Keep Dressing Clean & Dry Follow Up Care Please Follow Up With: Elizabeth Farooq MD When: Call [phone] to make an appointment for an incision check in 1-2 weeks. Test Results: Test results from this visit will be discussed in further detail at your follow- up appointment, if applicable. Discharge Plan Admission Admit Date/Time: 01/08/24 04:05 Attending Provider: Elizabeth Farooq Primary Care Provider: Care PhysicianMarilia Primary Discharge Orders/Prescriptions Prescriptions: New oxycodone-acetaminophen [Percocet] 5-325 mg tablet 1 tab PO Q6H PRN (Reason: pain) 7 Days Qty: 28 0RF naproxen 500 mg tablet 500 mg PO BID PRN PRN (Reason: Pain) Qty: 30 1RF No Action Vitamin Plus Low Iron 27 mg iron- 1 mg tablet 1 tab PO DAILY ursodiol 300 mg capsule 500 mg PO TID ferrous sulfate [Feosol] 325 mg (65 mg iron) tablet 325 mg PO QODAY cephalexin 500 mg capsule 500 mg PO DAILY Humulin N NPH Insulin KwikPen 100 unit/mL (3 mL) insulin pen 30 unit subcut DAILY Patient Comments: 30units in AM, 30 units at HS Referrals / Follow Up: Care PhysicianMarilia Primary [Primary Care Provider] -
[2024-01-08 04:57] LABS: Bedside Glucose 103 mg/dL (74-106)
[2024-01-08] MEDS: TRANEXAMIC ACID 1,000 MG in 0.9% Normal Saline (100mL Bag) 100 ML 440 MG IV (04:59)
[2024-01-08 05:06] LABS: Color, Urine Yellow (Yellow); Glucose, Dipstick Normal (Normal); Ketone-Dipstick 15 mg/dl (Negative); Leukocyte Esterase-Dipstick 500 /ul (Negative); Nitrite-Dipstick Negative (Negative); Occult Blood-Urine 10 /ul (Negative); Protein-Dipstick 30 mg/dl (Negative); Specific Gravity, Urine 1.025 (1.002-1.030); Urine Bilirubin Dipstick Negative (Negative); Urine Clarity Cloudy (Clear); Urine Urobilinogen 4 mg/dl (Normal)
[2024-01-08] MEDS: Cefazolin 3 GM in Syringe 1 EACH IV (05:13)
[2024-01-08 05:19] LABS: Amphetamine Urine VISTA NEGATIVE (<1000 ng/mL); Barbiturate Urine VISTA NEGATIVE (< 200 ng/mL); Benzodiazepine Urine VISTA NEGATIVE (< 200 ng/mL); Cocaine Urine VISTA NEGATIVE (< 300 ng/mL); Ecstacy Urine VISTA NEGATIVE (< 500 ng/mL); Methadone Urine VISTA NEGATIVE (< 300 ng/mL); PCP Urine VISTA NEGATIVE (< 25 ng/mL); THC Urine VISTA NEGATIVE (< 50 ng/mL); Vista UDS pH Range 5
[2024-01-08 05:20] LABS: Fibrinogen 414 mg/dl (203-444)
[2024-01-08 05:35] LABS: Rubella IgG Reactive (Nonreactive); Syphilis Antibodies Non-reactive
[2024-01-08 05:48] LABS: HIV - WCH Non-Reactive (Nonreactive); Syphilis Antibodies Non-reactive
--- NOTE | 2024-01-08 06:00 | FALS_PTH ---
PATIENT: LESTER BASURTO LOC: [facility] U#:[id number] AGE/SX: 23 ROOM: WP009 RE01/08/[address]: Dr. Elizabeth Farooq MD : 2000 BED: 1 DIS: 01/08/2024 SPEC #: [id number] RECD: 01/08/24 07:14 STATUS: [place] LE #: [id number] AURA: 01/08/24 06:[address]: Elizabeth Farooq DEPT: SURGICAL PATHOLOGY RECD BY: Lisha Shea ENTERED: 01/09/24 11:18 SP TYPE: FALL TUBES OTHR DR: No Primary Care Phys Tissues: Fallopian tube Procedures: Surgery Specimen Level II HEADER OPERATION: Repeat section PRE-OP DIAGNOSIS: Delivery TISSUE SUBMITTED: Bilateral fallopian tubes- suture in right MICROSCOPIC DIAGNOSIS Right fallopian tube, salpingectomy: Complete segment of fallopian tube with no pathologic change. Left fallopian tube, salpingectomy: Complete segment of fallopian tube with no pathologic change. Benign paratubal cyst. AM: 01/10/2024 MICROSCOPIC DESCRIPTION Slides are reviewed. GROSS DESCRIPTION Received in fixative is one container labeled with the patient's name and designated bilateral fallopian tubes - suture in right. The specimen consists of two fallopian tubes with an average length of 6.0 cm and has an average diameter of 0.6 cm. The soft tissue adjacent to the left fallopian tube contains a __ cyst containing clear fluid. The cyst measures 1.0cm in greatest dimension. Both fallopian tubes have normal fimbriated ends. No mass lesions are identified. Network Engineering Advisor sections are submitted in two cassettes as follows: 1 - right fallopian tube, 2 - left fallopian tube and left paratubal cyst. / AM: 01/09/2024 TC:5 CPT: 89045,63097
[2024-01-08 06:06] LABS: Hepatitis B Surface Antigen Non-Reactive (Nonreactive); Hepatitis C Antibody Non-Reactive (Nonreactive)
[2024-01-08] MEDS: Oxytocin 15 Units/NS 250ml 15 UNITS/250 ML IV.SOLN 83 UNITS IV (06:30)
--- NOTE | 2024-01-08 06:58 | EKG12_ITS ---
Test Reason : IRREGULAR RHYTHM Blood Pressure : */* mmHG Vent. Rate : 62 BPM Atrial Rate : 62 BPM P-R Int : 128 ms QRS Dur : 84 ms QT Int : 454 ms P-R-T Axes : 47 77 21 degrees QTcB Int : 460 ms Normal sinus rhythm with sinus arrhythmia Normal ECG When compared with ECG of 03-Jun-2021 19:21, Premature ventricular complexes are no longer Present Vent. rate has decreased by 34 bpm Confirmed by Alan Lucas ([id number]), fan mail editor AIMEE PONCE ([id number]) on 01/09/2024 9:57:55 AM Referred By: Elizabeth Farooq Confirmed By: Alan Lucas
[2024-01-08 07:14] LABS: Pathology Specimen OB SEE PATHOLOGY REPORT
--- NOTE | 2024-01-08 07:27 | NURSING ---
placenta to be sent with when transport gets here[facility]
--- NOTE | 2024-01-08 07:32 | NURSING ---
ligasure lot number [id number]. exp date 07/12/28.
[2024-01-08] MEDS: Ketorolac 30 MG/ML Syringe IV ×2 (07:38→13:56)
[2024-01-08] MEDS: Acetaminophen 500 MG Tablet 1000 MG PO ×2 (07:39→13:55)
[2024-01-08 07:50] LABS: ALB/GLOB Ratio 0.7 RATIO (0.9-2.4); AST(SGOT) 16 U/L (15-37); Alanine Aminotransfer ALT/SGPT 23 U/L (13-56); Albumin, Serum 2.6 g/dL (3.2-5.0); Alkaline Phosphatase 198 U/L (45-117); Anion Gap 11 (5-15); BUN 5 mg/dL (7-18); BUN/Creat Ratio 7.6 RATIO (10-20); Chloride 107 mmol/L (98-107); Creatinine, Serum 0.66 mg/dL (0.55-1.02); EST Glomerular Filtration Rate 118 mL/min (>60); Est Glom Filt Rate - Afr Amer 143 mL/min (>60); Estimated Creatinine Clearance 175.31 ml/min; Globulin 3.8 g/dL (2.2-4.2); Glucose 107 mg/dL (74-106); Potassium 3.7 mmol/L (3.5-5.1); Protein, Total 6.4 g/dL (6.4-8.2); Sodium Level 139 mmol/L (136-145)
[2024-01-08 08:12] LABS: Bedside Glucose 92 mg/dL (74-106)
--- NOTE | 2024-01-08 10:47 | PCM.PN.BLA ---
Physical Exam Const alert, oriented x3 and no apparent distress HEENT Head and Scalp: atraumatic Resp normal respiratory effort Auscultation: clear to auscultation bilaterally Cardio Rate: regular rate Rhythm: regular rhythm Heart Sounds: S1 normal and S2 normal; Negative for gallop, murmur or rub GI soft to palpation and non-tender Inspection: incision intact, healing well and drainage (none) Bimanual Exam - Vag & Uterus: uterus non-tender Uterus Palpation: uterus fundus firm (below Umbilicus) Assessment & Plan Assessment/Plan (1) delivery delivered: (2) Status post bilateral salpingectomy: PLAN: Plan seen for ekg and palpitations post delivery- now resolved, ekg reviewed with ER physician, normal variant, reviewed with past EKGs. stable. discussed if meets dc criteria wants to go home tonight to be with baby.
[2024-01-08] MEDS: 0.9% Saline Lock 10 ML Syringe IV (13:56)
[2024-01-08] MEDS: Enoxaparin 40 MG/0.4 ML Syringe SC (16:49)
== END 2024-01-08 17:00 | disposition home or self-care (01) | DRG 539 ==
LOC: WPOUT 04:11 → WP 04:11
PROVIDERS: Admitting Provider Obstetrics & Gynecology; Referring Provider Obstetrics & Gynecology; Visit Provider Obstetrics & Gynecology
DX: O45.8X3 Other premature separation of placenta, third trimester (principal); O60.14X0 Preterm labor third trimester with preterm delivery third trimester, not applicable or unspecified; O24.424 Gestational diabetes mellitus in childbirth, insulin controlled; O34.211 Maternal care for low transverse scar from previous cesarean delivery; Z30.2 Encounter for sterilization; Z37.0 Single live birth; O99.893 Other specified diseases and conditions complicating puerperium; R00.2 Palpitations; Z3A.34 34 weeks gestation of pregnancy; Z87.59 Personal history of other complications of pregnancy, childbirth and the puerperium
CPT/HCPCS: 59025; 59050; 80053; 80307; 81002; 82962; 85025; 85384; 86703; 86762; 86780; 86803; 86850; 86900; 86901; 87086; 87088; 87340; 88302; 93005; 99221; A4216; G0378; J2405

== ENCOUNTER → 2024-01-16 | Outpatient (CLI) | payer SELFPAY ==
[2024-01-16 13:45] LABS: HIV - WCH Non-Reactive (Nonreactive); Hepatitis B Surface Antigen Non-Reactive (Nonreactive); Hepatitis C Antibody Non-Reactive (Nonreactive)
== END | disposition home or self-care (01) ==
DX: Z01.89 Encounter for other specified special examinations (principal)
CPT/HCPCS: 36415; 86703; 86803; 87340

== ENCOUNTER 2024-10-07 06:00 | Emergency (ER) | payer MEDICAID, SELFPAY ==
[2024-10-07 06:01] VITALS: BP 148/81; PULSE 80; RESP 16; TEMP 36.9; O2SAT 100; BMI 53.1
--- NOTE | 2024-10-07 06:16 | RAD_ITS ---
PROCEDURE: ANKLE MIN 3 VIEWS 10/07/2024 REASON FOR EXAM: PAIN TECHNIQUE: ANKLE MIN 3 VIEWS Laterality: Left COMPARISON: None FINDINGS: Bones: No acute bony abnormalities. Joints: The mortise joint is aligned. Soft tissues: Unremarkable. RAD/Ankle min 3 Views IMPRESSION: No acute bony abnormalities. Reading Location: [id number]
--- NOTE | 2024-10-07 06:22 | RAD_ITS ---
PROCEDURE: FOOT MIN 3 VIEWS 10/07/2024 REASON FOR EXAM: PAIN TECHNIQUE: FOOT MIN 3 VIEWS Laterality: Left COMPARISON: None FINDINGS: Bones: No acute bony abnormalities. Joints: Unremarkable. No dislocation. Soft tissues: Unremarkable. RAD/Foot min 3 Views IMPRESSION: No acute osseous abnormalities. Reading Location: [id number]
--- NOTE | 2024-10-07 06:29 | EX.ED.DYSGE1 ---
HPI History of Present Illness Chief Complaint: Lower Extremity Injury Informant: patient and spouse/S.O. Narrative Narrative: Patient is a 23-year-old female with past medical history of anxiety and depression. She states she rolled her left ankle multiple weeks ago and was seen at the urgent care. She reports the x-ray was negative for fracture but she was having pain so they referred her to podiatry. She states podiatry wanted a MRI to assess for ligament damage. She states her insurance denied this however. She states that this morning she got up to get ready for the day and twisted her left ankle inward once again. She reports pain and swelling associate with a repeat injury and secondary to this comes in for evaluation [facility] Medical History (Updated 10/08/24 @ 01:[address] Buddy Doty DO) Atrial tachycardia Urinary tract infection affecting Cholestasis during Heart palpitations Gestational diabetes Pre-eclampsia History of migraine History of kidney stones History of pre-eclampsia Anxiety and depression delivery delivered Home Medications ?Medication ?Instructions ?Recorded ?Last Taken ?Type NK 10/07/24 Unknown History Allergy/AdvReac Type Severity Reaction Status Date / Time No Known Allergies Allergy Verified 10/07/24 06:04 Family History Grandfather Hypertension Grandmother Diabetes CVA (cerebral vascular accident) Hypertension Lupus Grandfather Diabetes Myocardial infarction CAD (coronary artery disease) Hypertension Surgical History (Updated 01/16/24 @ 00:02 by Kira Reyna) History of Social History Smoking Status: Never smoker ROS ROS ED Constitutional Constitutional ED: Denies chills or fever(s) ENT ENT ED: Denies sore throat Cardiovascular Cardiovascular: Denies chest pain Respiratory/Chest Respiratory/Chest: Denies cough or dyspnea Gastrointestinal Gastrointestinal: Denies abdominal pain, diarrhea, nausea or vomiting Musculoskeletal Musculoskeletal: Reports other Details: Positive left ankle and foot pain Integumentary Denies Abrasions or rash Neurologic Neurologic: Denies headache(s) or paresthesias Hematologic/Lymphatic Hematologic/Lymphatic: Denies easy bleeding or easy bruising EXAM Physical Exam Const Vital Signs: 10/07/24 06:01 10/07/24 07:26 Temperature 98.4 F 97.8 F Temperature Source Oral Pulse Rate 80 72 Respiratory Rate 16 18 Blood Pressure 148/81 H 147/78 H Blood Pressure Mean 103 101 Pulse Ox 100 99 Oxygen Delivery Method Room Air Positive well nourished, well developed and obese General Appearance ED: well developed; Negative for pallor Nutritional Appearance: obese HEENT HEENT Narrative: Normocephalic atraumatic Eyes PERRL and EOMs intact bilaterally General Eye ED: Negative for scleral icterus Neck supple Resp normal respiratory effort and clear to auscultation bilaterally Cardio regular rate and regular rhythm Extremity Extremity Narrative: Left lower extremity is neurovascularly intact Patient has mild soft tissue swelling along the left lateral malleolus. There is pain with palpation over top the left lateral malleolus as well as just below it. There is also pain with palpation along the lateral aspect of the left foot. However there is no obvious bony deformity or joint effusion. Achilles tendon is intact. Stressing of the ankle ligaments between left and right show mild laxity with anterior posterior drawer testing as well as inversion concerning for grade 2 ankle sprain Remainder of the exam is normal Neuro oriented x3, CN's II-XII intact bilaterally and no sensory deficits noted Sensorium / Orientation: alert Psych mental status grossly normal Skin no rashes or lesions noted and no wounds Skin Narrative: Soft tissue swelling with faint ecchymosis along the lateral aspect of the left ankle as documented above General Skin Exam: Negative for jaundice or pallor MDM MDM MDM Narrative Medical decision making narrative: Patient arrived to the ER mildly hypertensive but otherwise with stable vitals. She reported rolling her left ankle inward after standing up from bed. She did not strike her head or have loss of consciousness she does not take blood thinners or have a history of bleeding disorder. Therefore I felt no need for a head CT as I have low concern for subarachnoid or subdural hemorrhage and I felt no need for cardiac or syncope workup as it was a mechanical fall. With pain in the left ankle and foot there is concern for fracture versus dislocation versus contusion versus ankle sprain. X-rays revealed no bony abnormality. With mild ligamentous laxity this would indicate a grade 2 ankle sprain of the left ankle compared to the right. However the patient is neurovascularly intact and therefore there is no need for emergent orthopedic or podiatry evaluation. She be placed in a walking boot for stabilization and can follow-up with podiatry as an outpatient. History & Record Review Discussion w/independent historian: Patient and Significant other Radiography Diagnostic Testing: Clinical Impression(s) from Imaging Studies Ankle X-Ray 10/07/24 06:16 IMPRESSION: No acute bony abnormalities. Reading Location: [id number] Foot X-Ray 10/07/24 06:22 IMPRESSION: No acute osseous abnormalities. Reading Location: [id number] X-ray of the left ankle as interpreted by the emergency medicine physician reveals no acute fracture dislocation or joint effusion X-ray of the left foot as interpreted by the emergency medicine physician reveals no acute fracture or dislocation Discharge Plan Triage Chief Complaint: Lower Extremity Injury ED Provider: Buddy Doty Dx/Rx/DC Orders Clinical Impression: Grade 2 ankle sprain, Anxiety and depression Instructions: Treating Ankle Sprains, ED Ankle Sprain (Adult) Prescriptions: No Action NK Primary Care Provider: Care Physician,No Primary Referrals: Abdelrahman Paige DPM [Med Staff - Courtesy Staff] - Care Physician,No Primary [Primary Care Provider] - Activity Restrictions/Additional Instructions: Your x-rays do not reveal any acute fracture or dislocation. Your history and exam indicate you have a partial tear to your ankle ligaments which is considered a grade 2 sprain. Wear the walking boot for stabilization and this should heal over the next 4 to 6 weeks. Follow-up with podiatry for repeat evaluation and return to the ER should you have any further concerns Print Language: Kiswahili Disposition Disposition: Home, Self Care Discharge Date/Time: 10/07/24 07:27
--- OUTSIDE RECORDS SUMMARY | 2024-10-07 06:32 | XMS RPT_ITS | CCD ---
Author Organization [facility] Care Team Providers Care Point Of Sale Associate Name Role Phone PHYSICIAN, PATIENT UNSURE Primary Care Physician Unavailable Liz Thompson Primary Care Provid er PHYSICIAN, NONE Primary Care Physician Unavailab Abimbola Hodges DO Primary Care Provider [phone] Beatriz Rodgers MD Unavailable [phone] Care Physician, No Primary Primary Care Provider Unavailable Dr. Karina Lujan Attending Provider [phone] Dr. Karina Lujan Referring Provider [phone] Dr. Karina Lujan Other Provider Care Physician, No Primary Primary Care Provider Unavailable Dr. Karina Lujan Attending Provider Dr. Karina Lujan Referring Provider Dr. Karina Lujan Other Provider Unavailable Primary Care Provider UnavailKARISSA Madrid MD [...] Care Unavailable MARYJANE AVILA MD Attending Unavailable FIIL REMY MD Attending Unavailabl e PHYSICIAN, NONE [...] Attending Unavailable PHYSICIAN, NONE Primary Care Unavailable ANN FELIX-CEDRICM, JAIDA Lee Attending Unav ailable PHYSICIAN, NONE Primary Care [...] Unavailable PATTI DUPREE, DR CLARENCE Green Attending [facility] PHYSICIAN, NONE Primary Care Unavailable PHYSICIAN, NONE Primary Care Unavailable KASSIE RUBIO MD Attending Unavailable PHYSICIAN, NONE Primary Care Unavailable KASSIE RUBIO MD Attending Unavailable PHYSICIAN, NONE Primary Care Unavailable MARYJANE AVIAL MD Attending Unavailable PHYSICIAN, NONE Primary Care [...] Care Unavailable GRANT YANNI DUPREE Attending Unavailable PHYSICIAN, NONE Primary Care Unavailable APURVA SINGH MD Attending Unavailable BERONICA FLOYD MD Attending Unavailable PHYSICIAN, NONE Primary Care Unavailable PHYSICIAN, NONE Primary Care Unavailable KALA LITTLE DO Attending Unavailable ABIMBOLA DEWITT Primary Care Unavailable HUY, ESTEVAN L Referring Unavailable KARINA DESAI Attending UnavailABIMBOLA Lorenzo Primary Care Unavailable HUY ESTEVAN L Referring Unavailable LISA MELENDEZ Attending Unavailable ABIMBOLA DEWITT Primary Care Unavailable KARINA DESAI Attending Unavailabl philippe SON ESTEVAN L Referring Unavailable KRUEPKE, ABIMBOLA M Primary Care Unavailable ENA RIVERA Attending Unavailable HUY, ESTEVAN L Referring Unavailable KRUEPKE, ABIMBOLA M Primary Care Unavailable HUY, ESTEVAN L Referring Unavailable ENA RIVERA Attending Unavailable KRUEPKE, ABIMBOLA M Primary Care Unavailable CHIUNESSA F Attending Unavailable HUY, ESTEVAN L Referring Unavailable KRUEPKE, ABIMBOLA M Primary Care Unavailable NESSA CHIU F Attending Unavailable HUY, ESTEVAN L Referring Unavailable KRUEPKE, ABIMBOLA M Primary Care Unavailable HUY, ESTEVAN L Referring Unavailable ARMSTRONG, PRABHCHARAN P Attending Unavailable MARIEL, BERONICA E Attending Unavailable MARIEL, BERONICA E Referring Unavailable KRUEPKE, ABIMBOLA M Primary Care Unavailable HUY, ESTEVAN L Referring Unavailable KRUEPKE, ABIMBOLA M Primary Care Unavailable ARMSTRONG, PRABHCHARAN P Attending Unavailable KRUEPKE, ABIMBOLA M Primary Care Unavailable MAYRA BLACK Attending Unavailable HUY, ESTEVAN L Referring Unavailable MARIEL, BERONICA E Referring Unavailable KRUEPKE, ABIMBOLA M Primary Care Unavailable ARMSTRONG, PRABHCHARAN P Attending Unavailable KRUEPKE, ABIMBOLA M Primary Care Unavailable ARMSTRONG, PRABHCHARAN P Attending Unavailable HUY, ESTEVAN L Referring Unavailable KRUEPKE, ABIMBOLA M Primary Care Unavailable HUY, ESTEVAN L Referring Unavailable ARMSTRONG, PRABHCHARAN P Attending Unavailable KARINA DESAI Attending Unavailabl e KRUEPKE, ABIMBOLA M Primary Care Unavailable HUY, ESTEVAN L Referring Unavailable ARMSTRONG, PRABHCHARAN P Attending Unavailable KRUEPKE, ABIMBOLA M Primary Care Unavailable HUY, ESTEVAN L Attending Unavailable HUY, ESTEVAN L Referring Unavailable HENRY, ZACHARY A Attending Unavailable KRUEPKE, ABIMBOLA M Primary Care Unavailable HUY, ESTEVAN L Referring Unavailable HENRY, ZACHARY A Attending Unavailable KRUEPKE, ABIMBOLA M Primary Care Unavailable HUY, ESTEVAN L Referring Unavailable KRUEPKE, ABIMBOLA M Primary Care Unavailable CHIU, NESSA F Attending Unavailable HUY, ESTEVAN L Referring Unavailable HENRY, ZACHARY A Attending Unavailable KRUEPKE, ABIMBOLA M Primary Care Unavailable HUY, ESTEVAN L Referring Unavailable KRUEPKE, ABIMBOLA M Primary Care Unavailable ARTURO SHARMA Attending Unavailable HUY, ESTEVAN L Referring Unavailable HUY, ESTEVAN L Referring Unavailable KRUEPKE, ABIMBOLA M Primary Care Unavailable HUY, ESTEVAN L Attending Unavailable HUY, ESTEVAN L Referring Unavailable KRUEPKE, ABIMBOLA M Primary Care Unavailable ENA RIVERA Attending Unavailable KRUEPKE, ABIMBOLA M Primary Care Unavailable HUY, ESTEVAN L Referring Unavailable KRUEPKE, ABIMBOLA M Primary Care Unavailable MAYRA BLACK Attending Unavailable HUY, ESTEVAN L Referring Unavailable KRUEPKE, ABIMBOLA M Primary Care Unavailable APURVA SINGH Referring Unavailable LISA MELENDEZ Attending Unavailable KRUEPKE, ABIMBOLA M Primary Care Unavailable APURVA SINGH Referring Unavailable LISA MELENDEZ Attending Unavailable HUY, ESTEVAN L Referring Unavailable ZACHARY HENRY Attending Unavailable KRUEPKE, ABIMBOLA M Primary Care Unavailable HUY, ESTEVAN L Referring Unavailable KRUEPKE, ABIMBOLA M Primary Care Unavailable CLARENCE ARMSTRONG Attending Unavailable PHYSICIAN, NONE Primary Care Unavailable ISHAN TUBBS MD Attending Unavailable LOU GRECO, DR CAPPS Attending Unavailab le PHYSICIAN, NONE Primary Care Unavailable PHYSICIAN, NONE Primary Care Unavailable TRUMAN GABRIEL MD Attending Unavailable Care Physician, No Primary Primary Care Unava ilable Topher Hancock Attending Unavailable Topher Hancock Referring Unavailable Tian Gomez Consulting Unavailable Tian Gomez Attending Unavailable Tian Gomez Referring Unavailable Care Physician, No Primary Primary Care Unava ilable Care Physician, No Primary Primary Care Unava ilable MARYJANE GARCIA Attending Unavailable Care Physician, No Primary Primary Care Unava ilable Elizabeth Farooq Admitting Unavailable Elizabeth Farooq Attending Unavailable Elizabeth Farooq Referring Unavailable Care Physician, No Primary Primary Care Unava ilable Ena Lucas Attending Unavailable Elizabeth Farooq Referring Unavailable Care Physician, No Primary Primary Care Unava ilable Elizabeth Farooq Admitting Unavailable Elizabeth Farooq Consulting Unavailable Elizabeth Farooq Attending Unavailable Elizabeth Farooq Referring Unavailable Karina Hooks Attending Unavailable Care Physician, No Primary Primary Care Unava ilable YASMIN SUE Referring Unavailable QUIRINO CRUZ Attending Unavailable GEORGE MONTES Referring Unavailable NAYE HANCOCK Referring Unavailable Medications Current Medications Medication Drug Class(es) Dates Sig (Normalized) Sig (Original) acetaminophen 500 mg oral tablet (4 sources) Start: 02-18-2023 Tylenol Extra Strength 500 mg oral tablet Dose : 1,000 mg = 2 tab(s), Oral, q8hr, PRN as needed for pain, # 24 tab(s), 0 Refill(s), Pharmacy: [facility], 160, cm, 02/15/23 13:52:00 EST, Height, kg, 02/15/23 13:52:00 EST, Dosing Weight Start Date: 02/18/23 Status: Ordered Start: 02-15-2023 Tylenol Extra Strength 500 mg oral tablet Dose : 1,000 mg = 2 tab(s), Oral, q8hr, PRN as needed for pain, # 24 tab(s), 0 Refill(s), Pharmacy: [facility], 160, cm, 02/15/23 13:52:00 EST, Height, [...] # 30 tab(s), 1 Refill(s), [facility]: [facility], 160, cm, 04/27/21 11:21:00 EDT, Height, kg, [...] 30 tab(s), 1 Refill(s), [facility]: [id number], 162, cm, 10/07/22 10:58:00 EDT, Height, kg, [...] 24 tab(s), 0 Refill(s), [facility]: [facility] #[id number], Post-op pain, 160, cm, 02/21/23 10:34:00 EST, [...] day(s), # 28 tab(s), 0 Refill(s), Pharmacy: [facility] #[id number], delivery delivered Post-op pain, 162.6, cm, 11/10/21 18:24:00 EDT, Height, 130 Start Date: 11/12/21 Stop Date: 11/19/21 Status: Ordered Alcohol Swabs (20 sources) Start: 11-21-2023 Alcohol Swabs See Instructions, Check 4x/Day, # 1 EA, 0 Refill(s), Pharmacy: [facility] #[id number], Gestational diabetes, 160, cm, 11/21/23 9:40:00 EDT, Height, 125, kg, 02/21/23 10:34:00 EST, Dosing Weight Start Date: 11/21/23 Status: Ordered Start: 01-08-2023 Alcohol Swabs See Instructions, Check 4x/Day, # 100 EA, 2 Refill(s), Pharmacy: [facility] #[id number], Encounter for supervision of normal in multigravida in third trimester GDM, class A2, 160, cm, 01/04/23 11:32:00 EST, Height, 120, kg, 01/04/23 11:32:00 EST, Dosing Weight Start Date: 01/08/23 Status: Ordered Start: 12-20-2022 Alcohol Swabs See Instructions, Check 4x/Day, # 1 EA, 0 Refill(s), Pharmacy: [facility] #[id number], Encounter for supervision of normal in multigravida [...] 1 Refill(s), 03/16/21 11:05:00 EST, [facility]acy: [facility], Anxiety, 160, cm, 01/06/21 13:48:00 EST, [...] # 15 gram(s), 0 Refill(s), [facility], Cream, 160, cm, 06/02/21 8:53:00 EDT, Height, 109.1 Start Date: 06/02/21 Status: Ordered Blood Glucose Test Machine (18 sources) Start: 01-08-2023 Blood Glucose Test Machine See Instructions, Check 4x/Day, # 1 EA, 0 Refill(s), [facility]: [id number], Encounter for supervision of normal in multigravida in third trimester GDM, class A2, 160, cm, 01/04/23 11:32:00 EST, Height, 120, kg, 01/04/23 11:32:00 EST, Dosing Weight Start Date: 01/08/23 Status: Ordered Start: 12-20-2022 Blood Glucose Test Machine See Instructions, Check 4x/Day, # 1 EA, 0 Refill(s), Pharmacy: [facility] #[id number], Encounter for supervision of normal in multigravida in second trimester Previous section, 170.2, cm, 12/20/22 10:27:00 EST, Height, 118.2, kg, 12/16/22 9:12:00 EDT, Dosing Weight Start Date: 12/20/22 Status: Ordered Blood Pressure Cuff (2 sources) Start: 02-18-2023 Blood Pressure Cuff See Instructions, Check and Log Blood Pressure Daily, # 1 EA, 0 Refill(s), Pharmacy: [facility], 160, cm, 02/15/23 [...] infection, # 946 mL, 0 Refill(s), Pharmacy: [facility], 160, cm, 02/21/23 10:34:00 EST, Height, kg, 02/21/23 10:34:00 EST, Dosing Weight Start Date: 02/23/23 Status: Ordered ciprofloxacin 500 mg oral tablet (2 sources) Quinolone Antimicrobial Start: 02-09-2021 End: 02-14-2021 ciprofloxacin 500 mg oral tablet Dose : 500 mg = 1 tab(s), Oral, q12h, X 5 day(s), # 10 tab(s), 0 Refill(s), 02/14/21 10:05:00 EST, [facility]: [facility], 162, cm, 02/09/21 9:48:00 EST, Height, 127.8, kg, 02/09/21 9:48:00 EST, Dosing Weight Start Date: 02/09/21 Stop Date: 02/14/21 Status: Ordered cyclobenzaprine hydrochloride 5 mg oral tablet (1 source) Muscle Relaxant Start: 02-15-2023 End: 02-18-2023 cyclobenzaprine 5 mg oral tablet Dose : 5 mg = 1 tab(s), Oral, TID, X 3 day(s), # 9 tab(s), 0 Refill(s), 02/18/23 9:18:00 PM EST, Pharmacy: [facility], 160, cm, 02/15/23 13:52:00 EST, Height, [...] 60 cap(s), 1 Refill(s), [facility]: [facility] #[id number], 160, cm, 02/21/23 10:34:00 EST, Height, kg, [...] 84 tab(s), 3 Refill(s), [facility]: [facility] #[id number], 162, cm, 02/18/22 11:25:00 EST, Height Start Date: 03/29/22 Stop Date: 02/28/23 Status: Ordered famotidine 20 mg oral tablet (7 sources) Histamine-2 Receptor Antagonist Start: 01-26-2023 Pepcid [...] tab(s), 1 Refill(s), 01/04/22 11:07:00 EST, [facility]: [facility] #[id number], 162.6, cm, 11/05/21 10:35:00 EDT, Height Start Date: 11/05/21 Stop Date: 01/04/22 Status: Ordered fluconazole 150 mg oral tablet (1 source) Azole Antifungal Start: 11-24-2022 End: 11-28-2022 Diflucan 150 mg oral tablet Dose : 150 mg = 1 tab(s), Oral, qDay, # 2 tab(s), 0 Refill(s), 11/28/22 8:00:00 AM EDT, [facility]: [facility] #[id number], 160, cm, 11/24/22 9:35:00 EDT, Height, 121.8, kg, 11/24/22 9:35:00 EDT, Dosing Weight Start Date: 11/24/22 Stop Date: 11/28/22 Status: Ordered fluticasone propionate 0.05 mg/actuat metered dose nasal spray (1 source) Corticosteroid Start: 12-01-2022 take 1 dose nasal route twice daily Flonase 50 mcg/inh nasal spray Dose = 1 spray(s), Nostril, each, BID, # 15.8 mL, 1 Refill(s), [facility]: [id number], 160, cm, 12/01/22 10:39:00 EDT, Height, kg, 11/24/22 9:35:00 EDT, Dosing Weight Start Date: 12/01/22 Status: Ordered glyBURIDE 5 mg oral tablet (3 sources) Sulfonylurea Start: 12-27-2022 End: 03-27-2023 glyBURIDE 5 mg oral tablet Dose : 5 mg = 1 tab(s), Oral, BIDM, # 60 tab(s), 2 Refill(s), [facility]: [facility] #[id number], 170.2, cm, 12/27/22 11:03:00 EST, Height, kg, [...] 04/03/23 8:53:00 AM EST, [facility]: [facility] #[id number], 160, cm, 01/03/23 8:41:00 EST, Height, kg, 12/28/22 0:21:00 EST, Dosing Weight Start Date: 01/03/23 Stop Date: 04/03/23 Status: Ordered ibuprofen 600 mg oral tablet (4 sources) Nonsteroidal Anti-inflammatory Drug Start: 02-23-2023 ibuprofen 600 mg oral tablet Dose : 600 mg = 1 tab(s), Oral, q6h, PRN for pain, Take with food or milk., # 40 tab(s), 0 Refill(s), Pharmacy: [facility] #[id number], 160, cm, 02/21/23 10:34:00 EST, Height, kg, 02/21/23 10:34:00 EST, Dosing Weight Start Date: 02/23/23 Status: Ordered Start: 09-11-2018 End: 12-02-2021 ibuprofen 600 mg oral tablet Dose : 600 mg = 1 tab(s), Oral, q6h, PRN for pain, Take with food or milk., X 10 day(s), # 30 tab(s), 1 Refill(s), 12/02/21 7:48:00 EDT, Pharmacy: [facility] #[id number], 162.6, cm, 11/10/21 18:24:00 EDT, Height Start [...] 0 Refill(s) Start Date: 01/26/23 Status: Ordered Insulin Detemir U-100 (Levemir Flexpen) 100 unit/mL (3 mL) insulin pen (1 source) Start: 02-02-2023 Insulin Detemi r U-100 (Levemir Flexpen) 100 unit/mL (3 mL) insulin pen Active 24 UNIT SC AT BEDTIME February 02, 2023 12:00am insulin isophane (4 sources) Start: 12-23-2023 inject 1 dose by subcutaneous injection once daily at bedtime insulin isophane (NPH) Dose : 28 unit(s) =, Subcutaneous, qHS, 0 Refill(s) Start Date: 12/23/23 Status: Ordered Start: 12-23-2023 inject 1 dose by sub cutaneous injection once daily at bedtime insulin isophane (NPH) Dose : 24 unit(s) =, Subcutaneous, qHS, 0 Refill(s) Start Date: 12/23/23 Status: Ordered Start: 12-23-2023 insulin isopha ne (NPH) Dose : 28 unit(s) =, Subcutaneous, acBreakfast, 0 Refill(s) Start Date: 12/23/23 Status: Ordered Start: 12-23-2023 insulin isopha ne (NPH) Dose : 22 unit(s) =, Subcutaneous, acBreakfast, 0 Refill(s) Start Date: 12/23/23 Status: Ordered NIFEdipine 10 mg oral capsule (2 sources) Dihydropyridine Calcium Channel Kacy Start: 11-12-2022 End: 11-17-2022 NIFEdipine 10 mg oral capsule Dose : 10 mg = 1 cap(s), Oral, TID, take 3 caps for loading dose followed by 1 cap oral q 8 hours for contractions, # 18 cap(s), 0 Refill(s), [facility]: [id number], 160, cm, 11/12/22 9:56:00 EDT, Height, kg, [...] Refill(s), 01/13/21 14:06:00 EST, [facility]: [facility], UTI (urinary tract infection), 160, cm, 01/06/21 [...] 30 cap(s), 2 Refill(s), [facility]: [facility] #[id number], 160, cm, 12/28/22 0:21:00 EST, Height, 122.8, kg, 12/28/22 0:21:00 EST, Dosing Weight Start Date: 01/03/23 Status: Ordered Start: 12-28-2022 End: 01-02-2023 Macrobid 100 mg oral capsule Dose : 100 mg = 1 cap(s), Oral, BID, Take with food, X 5 day(s), # 10 cap(s), 0 Refill(s), 01/02/23 9:19:00 AM EST, [facility]: [facility] #[id number], 160, cm, 12/28/22 0:21:00 EST, Height, 122.8, kg, 12/28/22 0:21:00 EST, Dosing Weight Start Date: 12/28/22 Stop Date: 01/02/23 Status: Ordered nystatin 100 unt/mg topical ointment (4 sources) Polyene Antifungal Start: 09-08-2023 End: 11-07-2023 nystatin 100,000 units/g topical ointment Apply 1 kasia, Topical, BID, X 30 day(s), # 30 gram(s), 1 Refill(s), [id number], Ointment, 160, cm, 09/08/23 9:01:00 EDT, Height, 125, kg, 02/21/23 10:34:00 EST, Dosing Weight Start Date: 09/08/23 Stop Date: 11/07/23 Status: Ordered Start: 11-12-2021 End: 2021 nystatin 100,000 units/g top ical cream Apply 1 kasia, Topical, TID, X 7 day(s), # 30 gram(s), 1 Refill(s), Pharmacy: [facility] #[id number], 162.6, cm, 11/10/21 18:24:00 EDT, Height, 130 Start Date: 11/12/21 Stop Date: 11/26/21 Status: Ordered pantoprazole 40 mg delayed release oral tablet (3 sources) Proton Pump Inhibitor Start: 10-25-2022 End: 04-23-2023 Protonix 40 mg oral enteric coated tablet Dose : 40 mg = 1 tab(s), Oral, qDay, # 30 tab(s), 5 Refill(s), Pharmacy: [facility] #[id number], 162, cm, 10/25/22 11:38:00 EDT, Height, kg, 06/28/22 14:39:00 EDT, Dosing Weight Start Date: 10/25/22 Stop Date: 04/23/23 Status: Ordered Pnv,Calcium 64-[place]-Zospt Acid ( Vitamin Plus Low Iron) 27 mg iron- 1 mg tablet (7 sources) Start: 04-14-2021 take 1 tablet by mouth once daily Pnv,Calcium 31-Athk-Ardsm Acid ( Vitamin Plus Low Iron) 27 mg iron- 1 mg tablet Active 1 TABLET PO DAILY April 14, 2021 11:59am Start: 04-14-2021 take 1 tablet by shirin th once daily Pnv,Calcium 14-Wudb-Pkeeb Acid ( Vitamin Plus Low Iron) 27 mg iron- 1 mg tablet Active 1 TABLET PO DAILY April 14, 2021 1:00am Start: 04-14-2021 take 1 tablet by shirin th once daily Pnv,Calcium 83-Htly-Srawy Acid ( Vitamin Plus Low Iron) 27 mg iron- 1 mg tablet Active 1 TABLET PO DAILY April 14, 2021 12:00am PrenaPlus (14 sources) Start: 01-26-2023 take 1 tablet by mouth once daily PrenaPlus Dose = 1 tab(s), Oral, qDay, 0 Refill(s) Start Date: 01/26/23 Status: Ordered 19 ([place]) oral tablet (18 sources) Start: 03-31-2021 take 1 tablet by mouth once daily 19 ([place]) oral tablet Dose = 1 tab(s), Oral, qDay, of choice, # 100 tab(s), 2 Refill(s), [facility]: [facility] [facility], 160, cm, 03/31/21 13:33:00 EST, Height, kg, 03/23/21 11:18:00 EST, Dosing Weight Start Date: 03/31/21 Status: Ordered Multivitamins with Vitamin B Complex, Vitamin C, Minerals and L-Methylfolate oral capsule (16 sources) Start: 08-26-2022 take 1 capsule by mouth once daily Multivitamins with Vitamin B Complex, Vitamin C, Minerals and L-Methylfolate oral capsule Dose = 1 cap(s), Oral, Daily, 0 Refill(s) Start Date: 08/26/22 Status: Ordered rizatriptan 10 mg oral tablet (4 sources) Serotonin-1b and Serotonin-1d Receptor Agonist Start: 10-25-2022 Maxalt 10 mg oral tablet Dose : 10 mg = 1 tab(s), Oral, q2h, PRN as needed for migraine headache, # 12 tab(s), 1 Refill(s), [facility]: [facility] #[id number], 162, cm, 10/25/22 11:38:00 EDT, Height, kg, 06/28/22 14:39:00 EDT, Dosing Weight Start Date: 10/25/22 Status: Ordered Start: 11-10-2021 Maxalt 10 mg o ral tablet Dose : 10 mg = 1 tab(s), Oral, Once, PRN as needed for migraine headache, # 6 tab(s), 0 Refill(s) Start Date: 11/10/21 Status: Ordered sertraline 50 mg oral tablet (14 sources) Serotonin Reuptake Inhibitor Start: 01-21-2022 take 1 tablet by mouth once daily sertraline 50 mg oral tablet take 1 tablet by mouth once daily Start Date: 01/21/22 Status: Ordered Start: 10-14-2020 End: 04-12-2021 sertraline 100 mg oral table t Dose : 100 mg = 1 tab(s), Oral, qDay, # 90 tab(s), 1 Refill(s), [facility]: [facility] [address], 162.6, cm, 09/23/20 10:26:00 EDT, Height, kg, 10/09/20 9:38:00 EDT, Dosing Weight Start Date: 10/14/20 Stop Date: 04/12/21 Status: Ordered End: 03-12-2024 take 1 tablet by mouth once daily sertraline HCl (ZOLOFT ORAL) Take 1 tablet by mouth once daily. 03/12/2024 Discontinued take 1 tablet by shirin th once [...] # 84 tab(s), 3 Refill(s), [facility]: [facility], 162.6, cm, 09/23/20 10:26:00 EDT, Height, kg, [...] 14 tab(s), 0 Refill(s), [facility]: [facility] #[id number], 160, cm, 12/30/22 9:04:00 EST, Height, 122.8, kg, 12/28/22 0:21:00 EST, Dosing Weight Start Date: 12/30/22 Stop Date: 01/06/23 Status: Ordered Start: 08-26-2022 End: 09-02-2022 take 1 tablet by mouth twice daily Bactrim DS 800 mg-160 mg oral tablet Dose = 1 tab(s), Oral, BID, X 7 day(s), # 14 tab(s), 0 Refill(s), [facility]: [facility] #[id number], 162, cm, 08/26/22 10:52:00 EDT, Height, 123.8 Start Date: 08/26/22 Stop Date: 09/02/22 Status: Ordered ursodiol 500 mg oral tablet (10 sources) Bile Acid Start: 12-23-2023 End: 04-21-2024 ursodiol 500 mg oral tablet Dose : 500 mg = 1 tab(s), Oral, BID, # 60 tab(s), 3 Refill(s), [facility]: [facility] #[id number], 160, cm, 12/23/23 10:22:00 EST, Height, kg, 12/23/23 10:22:00 EST, Dosing Weight Start Date: 12/23/23 Stop Date: 04/21/24 Status: Ordered Start: 01-10-2023 End: 03-11-2023 ursodiol 300 mg oral capsule Dose : 300 mg = 1 cap(s), Oral, TID, # 90 cap(s), 1 Refill(s), [facility]: [facility] #[id number], 160, cm, 01/10/23 8:25:00 EST, Height, kg, 01/04/23 11:32:00 EST, Dosing Weight Start Date: 01/10/23 Stop Date: 03/11/23 Status: Ordered {10 (nirmatrelvir 150 MG Ora [...] day(s), # 5 EA, 0 Refill(s), Pharmacy: [facility], 160, cm, 02/09/23 12:52:00 EST, Height, kg, 02/09/23 12:52:00 EST, Dosing Weight Start Date: 02/10/23 Stop Date: 02/15/23 Status: Ordered Completed/Discontinued Medications Medication Drug Class(es) Dates Sig (Normalized) Sig (Original) Pcysci-Vhusipja-Ur ff 50-325-40 (7 sources) Start: 11-14-2017 End: 11-21-2017 take 1 tablet by mouth every six hours as needed Wgwemc-Jvfhbqyo-Iri f 50-325-40 Discontinued 1 - 2 TABLET PO EVERY 6 HOURS NEEDED November 14, 2017 7:38pm November 21, 2017 11:37pm Start: 11-14-2017 End: 11-21-2017 take 1 tablet by mouth every six hours as needed Sjanyv-Vjgedtbj-Xmpd 50-325-40 Discontinued 1 - 2 TABLET PO EVERY 6 HOURS NEEDED November 14, 2017 12:00am November 21, 2017 11:37pm Start: 11-14-2017 End: 11-21-2017 take 1 tablet by mouth every six hours as needed Mujwug-Ajnwkvlq-Rcif 50-325-40 Discontinued 1 - 2 TABLET PO EVERY 6 HOURS NEEDED November 13, 2017 11:00pm November 21, 2017 10:37pm Keflex (7 sources) Cephalosporin Antibacterial Start: 12-23-2023 Ke flex Dose : 500 mg =, Oral, qHS, 0 Refill(s), 125 Start Date: 12/23/23 Status: Ordered Start: 11-09-2022 End: 11-16-2022 Keflex Dose : 500 mg =, Oral , BID, 0 Refill(s), 123.8 Start Date: 11/09/22 Stop Date: 11/16/22 Status: Ordered Start: 11-09-2022 End: 12-02-2022 take 500 mg by mouth twice daily Cephalexin Discontinued 500 MG PO TWICE A DAY November 08, 2022 11:00pm December 02, 2022 7:19am ferrous sulfate 325 mg oral tablet (12 sources) Start: 01-26-2023 End: 05-24-2023 IRON (ferrous sulfate 325 mg ) 65 mg oral tablet Dose : 325 mg = 1 tab(s), Oral, qDay, # 30 tab(s), 2 Refill(s), Pharmacy: [facility] #[id number], 160, cm, 02/21/23 10:34:00 EST, Height, kg, 02/21/23 10:34:00 EST, Dosing Weight Start Date: 02/23/23 Stop Date: 05/24/23 Status: Ordered Start: 01-05-2023 ferrous sulfat e 325 mg (65 mg elemental iron) oral delayed release tablet Dose : 325 mg = 1 tab(s), Oral, qDay, # 30 tab(s), 3 Refill(s), [facility]: [id number], 160, cm, 01/04/23 11:32:00 EST, Height, kg, [...] 4.5 mL, 4 Refill(s), [facility]: [facility] #[id number], Gestational diabetes mellitus, delivered 28 weeks gestation of , 160, cm, 11/28/23 10:05:00 EDT, Height, kg, 02/21/23 10:34:00 EST, Dosing Weight Start Date: 11/28/23 Status: Ordered Start: 01-08-2023 inject 0.2 mL by sub cutaneous injection once daily insulin glargine (Touje[place]) (concentrated) 300 units/mL subcutaneous solution Dose : 60 unit(s) = 0.2 mL, Subcutaneous, qDay, # 6 mL, 4 Refill(s), [facility]: [facility] #[id number], 160, cm, 01/04/23 11:32:00 EST, Height, kg, 01/04/23 11:32:00 EST, Dosing Weight Start Date: 01/08/23 Status: Ordered ondansetron 4 mg oral tablet (20 sources) Serotonin-3 Receptor Antagonist Start: 03-31-2021 End: 11-09-2022 take 4 mg by mouth every six hours as needed Ondansetron Hcl Discontinued 4 MG PO EVERY 6 HOURS NEEDED April 14, 2021 12:00am November 09, 2022 6:37am Start: 06-10-2017 End: 11-21-2017 take 4 mg by mouth once daily Ondansetron Discontinued 4 MG PO DAILY June 09, 2017 11:00pm November 21, 2017 10:37pm End: 03-12-2024 ondansetron HCl (ZOFRAN ORAL ) Take by mouth. 03/12/2024 Discontinued ondansetron HCl (ZOFRAN ORAL) Take by mouth. 0 Active Comment on above: Take by mouth. oxyCODONE hydrochloride 5 mg oral tablet (7 sources) Opioid Agonist Start: 11-21-2017 End: 2017 take 5 mg by mouth every six hours as needed Oxycodone Discontinued 5 MG PO EVERY 6 HOURS NEEDED 20 November 20, 2017 11:00pm November 25, 2017 11:11pm vit,alexander 74/iron/folic ( VITAMIN 1+1 ORAL) (3 sources) End: 03-12-2024 vit,alexander 74/iron/folic ( VITAMIN 1+1 ORAL) Take by mouth. 03/12/2024 Discontinued vit,alexander 74/iron/folic ( VITAMIN 1+1 ORAL) Take by mouth. 0 Active Comment on above: Take by mouth. promethazine hydrochloride 25 mg oral tablet (12 sources) Phenothiazine Start: 07-20-2021 End: 07-27-2021 promethazine 25 mg oral tablet Dose : 25 mg = 1 tab(s), Oral, q6h, PRN Headache, # 30 tab(s), 0 Refill(s), Pharmacy: [facility] [address], 160, cm, 07/20/21 11:06:00 EDT, Height Start Date: 07/20/21 Stop Date: 07/27/21 Status: Ordered Problems Active Problems Problem Classification Problem Date Documented Da te Episodic/Chronic Abdominal pain (20 sources) Abdominal pain; Translations: [Unspecified abdominal pain] Onset: 01-25-2021 Episodic Acute bronchitis (7 sources) Acute bronchitis; Translations: [Acute bronchitis, unspecified] 03-12-2019 Episodic Anxiety disorders (20 sources) Anxiety; Translations: [Mixed anxiety and depressive disorder] 01-23-2020 Chronic Biliary tract disease (1 source) Obstruction of bile duct; Translations: [Obstruction of bile duct] Onset: 01-27-2024 Chronic Blindness and vision defects (6 sources) Blurring of visual image; Translations: [Other visual disturbances] 11-09-2022 Episodic Calculus of urinary tract (20 sources) Kidney stone 01-23-2020 Episodic Cardiac dysrhythmias (5 sources) Atrial tachycardia; Translations: [Supraventricular tachycardia] 07-21-2021 Chronic Cardiac dysrhythmias (13 sources) Palpitations; Translations: [Palpitations] Onset: 06-14-2021 Episodic Conditions associated with dizziness or vertigo (5 sources) Dizziness; Translations: [Dizziness and giddiness] Onset: 11-09-2023 12-02-2022 Episodic Contraceptive and procreative management (20 sources) Intrauterine contraceptive device in situ; Translations: [Contraception status] Onset: 01-27-2024 10-09-2020 Episodic Diabetes or abnormal glucose tolerance complicating ; childbirth; or the puerperium (20 sources) Gestational diabetes mellitus, class A>2< ; Translations: [Gestational diabetes mellitus in childbirth, unspecified control] Onset: 11-28-2023 12-27-2022 Episodic Early or threatened labor (5 sources) False labor before 37 completed weeks of gestation; Translations: [False labor before 37 completed weeks of gestation, unspecified trimester] Onset: 11-12-2022 Episodic Genitourinary symptoms and ill-defined conditions (20 sources) Urinary symptoms 08-26-2022 Episodic Headache; including migraine (20 sources) Migraine; Translations: [Refractory migraine] Onset: 09-11-2016 Resolved: 09-12-2016 01-23-2020 Chronic Hemorrhage during ; abruptio placenta; placenta previa (16 sources) Threatened miscarriage; Translations: [Threatened ] Episodic Hypertension complicating ; childbirth and the puerperium (7 sources) Pre-eclampsia; Translations: [Unspecified pre-eclampsia, unspecified trimester] 07-21-2021 Episodic Influenza (1 source) Influenza-like illness; Translations: [Influenza due to unidentified influenza virus with other respiratory manifestations] 03-12-2024 Episodic Menstrual disorders (20 sources) Amenorrhea 08-26-2022 [...] Onset: 11-12-2021 06-05-2020 Episodic Other complications of ; puerperium affecting management of mother (3 sources) Deliveries by ; Translations: [Encounter for delivery without indication] 07-28-2021 Episodic Other complications of (20 sources) Urinary tract infection in 11-14-2022 Episodic Other complications of (15 sources) Cholestasis of 01-10-2023 Episodic Other complications of (1 source) Other specified related conditions, third trimester; Translations: [Other specified related conditions, third trimester] Onset: 01-27-2024 Episodic Other connective tissue disease (8 sources) Pain in left foot; Translations: [Pain in left foot] 05-14-2024 Episodic Other connective tissue disease (1 source) Pain in left foot; Translations: [Foot pain, left] Onset: 05-14-2024 Episodic Other female genital disorders (20 sources) Abnormal uterine bleeding 03-11-2022 Chronic Other gastrointestinal disorders (7 sources) Constipation; Translations: [Constipation, unspecified] 11-29-2017 Episodic Other liver diseases (15 sources) Elevated liver enzymes level 01-10-2023 Episodic Other lower respiratory disease (5 sources) Dyspnea; Translations: [Shortness of breath] 07-21-2021 Episodic Other lower respiratory disease (1 source) Cough; Translations: [Acute cough] 08-30-2023 Episodic Other lower respiratory disease (2 sources) Cough; Translations: [Acute cough] 03-12-2024 Episodic Other nervous system disorders (1 source) Postoperative pain ; Translations: [Other acute postprocedural pain] Onset: 11-12-2021 Episodic Other non-traumatic joint disorders (7 sources) Pain in unspecified knee; Translations: [Acute knee pain] 04-22-2021 Episodic Other non-traumatic joint disorders (7 sources) Acute ankle pain; Translations: [Pain in left ankle and joints of left foot] 05-14-2024 Episodic Other non-traumatic joint disorders (1 source) Pain in left ankle and joints of left foot; Translations: [Acute left ankle pain] Onset: 05-14-2024 Episodic Other nutritional; endocrine; and metabolic disorders (20 sources) Body mass index 30+ - obesity 07-25-2017 Chronic Other nutritional; endocrine; and metabolic disorders (7 sources) Body mass index 40+ - severely obese; Translations: [Body mass index (BMI) 45.0-49.9, adult] 11-28-2017 Chronic Other and delivery including normal (20 sources) ; Translations: [First trimester ] Onset: 02-14-2021 03-31-2021 Episodic Other screening for suspected conditions (not mental disorders or infectious disease) (2 sources) Possible ; Translations: [Encounter for test, result unknown] Episodic Previous (1 source) Maternal care for unspecified type scar from previous delivery; Translations: [Maternal care for unspecified type scar from previous delivery] Onset: 01-27-2024 Episodic Residual codes; unclassified (2 sources) Gestational age unknown ; Translations: [Weeks of gestation of not specified] Episodic Residual codes; unclassified (7 sources) Gestation period, 39 weeks; Translations: [39 weeks gestation of ] 07-21-2021 Episodic Residual codes; unclassified (5 sources) Gestation period, 22 weeks; Translations: [22 weeks gestation of ] 07-28-2021 Episodic Residual codes; unclassified (5 sources) History of pre-eclampsia; Translations: [Personal history of other complications of , childbirth and the puerperium] 07-21-2021 Episodic Residual codes; unclassified (2 sources) 28 weeks gestation of ; Translations: [28 weeks gestation of ] Onset: 11-28-2023 Episodic Residual codes; unclassified (1 source) Personal history of other complications of , childbirth and the puerperium; Translations: [Personal history of other complications of , childbirth and the puerperium] Onset: 01-27-2024 Episodic Residual codes; unclassified (1 source) 34 weeks gestation of ; Translations: [34 weeks gestation of ] Onset: 01-27-2024 Episodic Residual codes; unclassified (6 sources) Pain; Translations: [Pain, unspecified] 04-19-2024 Episodic Residual codes; unclassified (1 source) Pain, unspecified; Translations: [Pain] Onset: 04-19-2024 Episodic Sprains and strains (7 sources) Strain of muscle of hip; Translations: [Strain of muscle, fascia and tendon of unspecified hip, initial encounter] 04-22-2021 Episodic Unclassified (20 sources) Patient encounter status 08-07-2020 Unclassified (1 source) Acute cough; Translations: [Acute cough] Onset: 03-12-2024 Past or Other Problems Problem Classification Problem [...] 03-07-2015 Episodic Skin and subcutaneous tissue infections (9 sources) Abscess of foot, except toe; Translations: [Cellulitis of unspecified part of limb] Onset: 09-01-2005 Resolved: 03-25-2015 03-25-2015 Episodic NEGATED: Highlighted row has been ruled out!Unclassified (5 sources) No known active problems 04-14-2021 Results Test Name Value Interpretation Reference Range Facility [facility] 06-05-2024 CNOV Office Visit (UCWSTR ) ----- LESTER INFANTE ([id number]) 1 F Date Time Provider Department 06/05/24 10:30 AM QUIRINO CRUZ [facility] During your visit today, we recorded the following information about you: Temperature Pulse Respiration Blood pressure 97.4 degrees 72/minute 18/minute 118/66 Weight 131.6 kg Quirino Cruz APRN.[facility] 06/05/2024 10:58 AM Signed Subjective HPI Nontoxic-appearing 23-year-old female presents urgent care chief complaint left foot pain. Duration of symptoms a month and a half associated symptoms left foot pain. Was seen here twice for this injury. Injury occurred April 18, 2024. States rolled her ankle when she was wearing platform shoes. X-ray of foot and ankle was negative. Was seen again at the end of April. X-ray foot ankle negative. Presents today with persistent discomfort. States that the end of the day her foot is swollen. Is a [id number] mom has 6 children under the age of 6. Did fracture her foot when she was younger. No surgeries. States foot has never been the same. No numbness or tingling. No decrease sensation. Overall feels well. Past medical history prescription medications allergies reviewed. BP 118/66 Pulse 72 Temp 36.3 ?C (97.4 ?F) Resp 18 Wt 131.6 kg (290 lb 2 oz) LMP 04/05/2024 SpO2 98% .Patient presents with: Ankle Injury: left ankle and foot pain x 1 month, seen here 2 previous times PAST MEDICAL HISTORY Diagnosis Date History of insulin controlled gestational diabetes mellitus NEGATIVE MEDICAL HISTORY PAST SURGICAL HISTORY Procedure Laterality Date INCISION AND DRAINAGE ABSCESS SIMPLE/SINGLE 09/01/05 Right plantar foot ALLERGIES Patient has no known allergies. MEDICATIONS No prescriptions on file. No family history on file. Social History Tobacco Use Smoking status: Never Smokeless tobacco: Never Substance Use Topics Alcohol use: Never Review of Systems Constitutional: Negative for chills, fever and malaise/fatigue. Musculoskeletal: Positive for joint pain. Negative for back pain, falls, myalgias and neck pain. Mid foot/forefoot discomfort Neurological: Negative for dizziness, loss of consciousness, weakness and headaches. Objective Physical Exam Constitutional: General: She is not in acute distress. Appearance: She is not toxic-appearing. HENT: Head: Normocephalic. Nose: Nose normal. Eyes: Pupils: Pupils are equal, round, and reactive to light. Cardiovascular: Rate and Rhythm: Normal rate. Pulmonary: Effort: Pulmonary effort is normal. No respiratory distress. Musculoskeletal: Cervical back: Normal range of motion. Feet: Feet: Comments: Pain with palpation to highlighted area. Mild edema. No erythema. Neurovascular intact Skin: General: Skin is warm and dry. Neurological: General: No focal deficit present. Mental Status: She is alert. ASSESSMENT/PLAN: 1. Foot pain, left - ICD9: 729.5, ICD10: M79.672 With persistent pain referred to podiatry. Will be seen tomorrow. Concerned about ligament tendon injury. Patient was educated on supportive therapies. Patient will follow up with primary care provider as needed. Patient was instructed to immediately proceed to emergency room for any new, worsening, or symptoms lasting longer than anticipated. The patient's clinical presentation is otherwise unremarkable at this time. Based on exam and clinical finding, the patient is stable for discharge. Plan of care was discussed with patient. Patient verbalizes understanding and agrees to plan of care. This note was generated using [employer] software. It may contain errors in wording, punctuation, or spelling. Quirino Cruz APRN.[employer] [employer] Allergies As of Date: 06/05/2024 (No Known Allergies) Date Reviewed: 06/05/2024 Reviewed by: Linda Colvin MA - Fully Assessed Reason for Visit: Ankle Injury [7] Cmt: left ankle and foot pain x 1 month, seen here 2 previous times Primary Visit Diagnosis:Foot pain, left [M79.672] Problem List As Of Date 06/05/2024 Noted Resolved ABSCESS FOOT (EXCEPT TOE)(Right plantar) [L03.*09/01/2005 03/25/2015 Level of Service: OFFICE/OUTPATIENT ESTABLISHED LOW [facility] 20 MIN [62752] Encounter Status:Closed by QUIRINO CRUZ on 06/05/24 [facility] 05-14-2024 CNOV Office Visit ([facility]WSTR ) ----- LESTER INFANTE ([id number]) 1 F Date Time Provider Department 05/14/24 8:45 AM YASMIN SUE [facility] During your visit today, we recorded the following information about you: Temperature Pulse Respiration Blood pressure 97.3 degrees 77/minute 18/minute 102/64 Weight 130.6 kg Yasmin Sue PA 05/14/2024 9:44 AM Signed [facility] Subjective Lester Infante is a 23 year old female. Patient presents with: left foot and ankle pain: X 1 month-rolled it again last night HPI 23-year-old female presents for left ankle and left foot pain. Patient states she injured her foot and ankle about a month ago. She states she had an x-ray completed that was normal. She states pain in the ankle is never fully gone away. She states that last night she was walking and rolled the ankle again. She is having pain over the medial side of the ankle. Ankle is swollen. She states she is unable to bear full weight due to pain. She has taken Tylenol with minimal improvement. No other complaint. PAST MEDICAL HISTORY Diagnosis Date History of insulin controlled gestational diabetes mellitus NEGATIVE MEDICAL HISTORY PAST SURGICAL HISTORY Procedure Laterality Date INCISION AND DRAINAGE ABSCESS SIMPLE/SINGLE 09/01/05 Right plantar foot ALLERGIES Patient has no known allergies. MEDICATIONS No prescriptions on file. No family history on file. Social History Tobacco Use Smoking status: Never Smokeless tobacco: Never Substance Use Topics Alcohol use: Never Review of Systems Constitutional: Negative for fever. Musculoskeletal: Positive for arthralgias. Neurological: Negative for numbness. Objective BP 102/64 Pulse 77 Temp 36.3 ?C (97.3 ?F) (Tympanic) Resp 18 Wt 130.6 kg (287 lb 14.7 oz) LMP 04/05/2024 SpO2 98% Physical Exam Vitals and nursing note reviewed. Constitutional: General: She is not in acute distress. Appearance: Normal appearance. She is not toxic-appearing. Musculoskeletal: Left ankle: Swelling present. Tenderness present over the medial malleolus. Decreased range of motion. Normal pulse. Left Achilles Tendon: Normal. Comments: Tenderness over left medial malleolus with swelling present. Able to plantar and dorsiflex, but pain with range of motion. Achilles intact. Nontender Achilles. Tenderness over dorsum of left foot with some swelling present. Normal ROM of the toes. Cap refill less than 2 seconds. DP and PT pulses 2+ Skin: General: Skin is warm and dry. Neurological: Mental Status: She is alert. {ASSESSMENT/PLAN: 1. Foot pain, left - ICD9: 729.5, ICD10: M79.672 (primary diagnosis) - XR ANKLE GENERAL 3V AP/LAT/OBL LEFT - XR FOOT GENERAL 3V AP/LAT/OBL LEFT -XR reveals soft tissue prominence along medial malleolus. No acute fractures demonstrated ankle or foot -Patient has an Marika wrap, continue wearing this, ice, elevation, Tylenol/Motrin. Consult orthopedics placed. - CONSULT PANEL TO ORTHOPAEDICS 2. Acute left ankle pain - ICD9: 719.47, ICD10: M25.572 - XR ANKLE GENERAL 3V AP/LAT/OBL LEFT - XR FOOT GENERAL 3V AP/LAT/OBL LEFT - CONSULT PANEL TO ORTHOPAEDICS Diagnosis and treatment plan were discussed and questions were answered to the patient's satisfaction. Pt acknowledged understanding of concepts and follow up plan. Specific signs and symptoms that would indicate the need for higher level of care were discussed in detail warranting prompt ER evaluation. TEAGAN Millan History and Record Review External record(s) reviewed: prior outpatient record. Findings from review of outpatient records: Seen 04/19 for similar symptoms/injury Differential Diagnoses - Ankle sprain is more likely for the following reason(s): suggested by HANDP - Ankle fracture is less likely for the following reason(s): no evidence on imaging - Foot fracture is less likely for the following reason(s): no evidence on imaging - Achilles injury is less likely for the following reason(s): HANDP not suggestive Disposition The patient was discharged. OTC Medications were advised: Tylenol/Motrin Procedures Yasmin Sue PA 05/14/2024 9:41 AM Signed R.I.C.E. The general care of your injury includes the following: Resting, Icing, Compressing and Elevating the injured area. Remember this as RICE. REST: Limit the use of the injured body part. ICE: By applying ice to the affected area, swelling and pain can be reduced. Place some ice cubes in a re-sealable (Ziploc) bag and add some water. Put a thin washcloth between the bag and your skin. Apply the ice bag to the area for at least 20 minutes. Do this at least 4 times per day. Using the ice for longer times and more frequently is OK. NEVER APPLY ICE DIRECTLY TO THE SKIN. COMPRESS: Compression means to apply pressure around the injured area such as with a splint, c (more content not included)... Normal [facility] No Panel Informationon 05-14 IMPRESSION: Soft tis je prominence along the medial malleolus. No acute fractures demonstrated in the left ankle or left foot. Varnish Thinner: STAN Transcribe Date/Time: May 14 2024 9:28A Dictated by : EDUAR CORTES MD This examination was interpreted and the report reviewed and electronically signed by: EDUAR CORTES MD on May 14 2024 9:36AM EST DIVISION OF RADIOLOGY Radiology Study observation (narrative) [facility] No Panel InformationOrdered By: [facility] Provider on 05-14-2024 [facility] XR ANKLE 3V AP/LAT/OBL LTon 05-14-2024 XR ANKLE 3V AP/LAT/OBL LT * * *Final Report* * * DATE OF EXAM: May 14 2024 9:22AM WOX [id number] - XR ANKLE 3V AP/LAT/OBL LT / PROCEDURE REASON: multiple diagnoses * * * * Physician Interpretation * * * * EXAM TITLE: XR ANKLE 3V AP/LAT/OBL LT, XR FOOT 3V AP/LAT/OBL LT EXAM DATE/TIME: 05/14/2024 9:22 AM COMPARISON: None. CLINICAL INDICATION/HISTORY: Lateral foot and ankle pain. TECHNIQUE: AP, mortise and lateral views of the left ankle are presented. AP, oblique and lateral views of the left foot are also present. FINDINGS: No acute fractures or subluxations are noted. The joint spaces are well preserved. An os trigonum is noted. There is no ankle joint effusion. The mineralization of the bones is normal. There is soft tissue prominence along the medial malleolus. IMPRESSION: Soft tissue prominence along the medial malleolus. No acute fractures demonstrated in the left ankle or left foot. [facility]inner[facility] Transcribe Date/Time: May 14 2024 9:28A Dictated by : EDUAR CORTES MD This examination was interpreted and the report reviewed and electronically signed by: EDUAR CORTES MD on May 14 2024 9:36AM EST [id number] Normal [facility] XR Ankle - left AP and Later al and obliqueon 05-14-2024 * * *Final Report* * * DATE OF EXAM: May 14 2024 9:22AM WOX [id number] - XR ANKLE 3V AP/LAT/OBL LT / PROCEDURE REASON: multiple diagnoses * * * * Physician Interpretation * * * * EXAM TITLE: XR ANKLE 3V AP/LAT/OBL LT, XR FOOT 3V AP/LAT/OBL LT EXAM DATE/TIME: 05/14/2024 9:22 AM COMPARISON: None. CLINICAL INDICATION/HISTORY: Lateral foot and ankle pain. TECHNIQUE: AP, mortise and lateral views of the left ankle are presented. AP, oblique and lateral views of the left foot are also present. FINDINGS: No acute fractures or subluxations are noted. The joint spaces are well preserved. An os trigonum is noted. There is no ankle joint effusion. The mineralization of the bones is normal. There is soft tissue prominence along the medial malleolus. DIVISION OF RADIOLOGY Provider, [facility] - 05/14/2024 * * *Final Report* * * DATE OF EXAM: May 14 2024 9:22AM WOX [id number] - XR ANKLE 3V AP/LAT/OBL LT / PROCEDURE REASON: multiple diagnoses * * * * Physician Interpretation * * * * EXAM TITLE: XR ANKLE 3V AP/LAT/OBL LT, XR FOOT 3V AP/LAT/OBL LT EXAM DATE/TIME: 05/14/2024 9:22 AM COMPARISON: None. CLINICAL INDICATION/HISTORY: Lateral foot and ankle pain. TECHNIQUE: AP, mortise and lateral views of the left ankle are presented. AP, oblique and lateral views of the left foot are also present. FINDINGS: No acute fractures or subluxations are noted. The joint spaces are well preserved. An os trigonum is noted. There is no ankle joint effusion. The mineralization of the bones is normal. There is soft tissue prominence along the medial malleolus. IMPRESSION IMPRESSION: Soft tissue prominence along the medial malleolus. No acute fractures demonstrated in the left ankle or left foot. Varnish Thinner: [facility] Transcribe Date/Time: May 14 2024 9:28A Dictated by : EDUAR CORTES MD This examination was interpreted and the report reviewed and electronically signed by: EDUAR CORTES MD on May 14 2024 9:36AM [facility] XR FOOT 3V AP/LAT/OBL LTon 0 05-14-2024 XR FOOT 3V AP/LAT/OBL LT * * *Final Report* * * DATE OF EXAM: May 14 2024 9:22AM WOX [id number] - XR FOOT 3V AP/LAT/OBL LT / PROCEDURE REASON: multiple diagnoses * * * * Physician Interpretation * * * * EXAM TITLE: XR ANKLE 3V AP/LAT/OBL LT, XR FOOT 3V AP/LAT/OBL LT EXAM DATE/TIME: 05/14/2024 9:22 AM COMPARISON: None. CLINICAL INDICATION/HISTORY: Lateral foot and ankle pain. TECHNIQUE: AP, mortise and lateral views of the left ankle are presented. AP, oblique and lateral views of the left foot are also present. FINDINGS: No acute fractures or subluxations are noted. The joint spaces are well preserved. An os trigonum is noted. There is no ankle joint effusion. The mineralization of the bones is normal. There is soft tissue prominence along the medial malleolus. IMPRESSION: Soft tissue prominence along the medial malleolus. No acute fractures demonstrated in the left ankle or left foot. Varnish Thinner: [facility] Transcribe Date/Time: May 14 2024 9:28A Dictated by : EDUAR CORTES MD This examination was interpreted and the report reviewed and electronically signed by: EDUAR CORTES MD on May 14 2024 9:36AM EST [id number] Normal [facility] XR Foot - left AP and Latera l and obliqueon 05-14-2024 * * *Final Report* * * DATE OF EXAM: May 14 2024 9:22AM WOX [id number] - XR FOOT 3V AP/LAT/OBL LT / PROCEDURE REASON: multiple diagnoses * * * * Physician Interpretation * * * * EXAM TITLE: XR ANKLE 3V AP/LAT/OBL LT, XR FOOT 3V AP/LAT/OBL LT EXAM DATE/TIME: 05/14/2024 9:22 AM COMPARISON: None. CLINICAL INDICATION/HISTORY: Lateral foot and ankle pain. TECHNIQUE: AP, mortise and lateral views of the left ankle are presented. AP, oblique and lateral views of the left foot are also present. FINDINGS: No acute fractures or subluxations are noted. The joint spaces are well preserved. An os trigonum is noted. There is no ankle joint effusion. The mineralization of the bones is normal. There is soft tissue prominence along the medial malleolus. DIVISION OF RADIOLOGY Provider, [facility] - 05/14/2024 * * *Final Report* * * DATE OF EXAM: May 14 2024 9:22AM WOX [id number] - XR FOOT 3V AP/LAT/OBL LT / PROCEDURE REASON: multiple diagnoses * * * * Physician Interpretation * * * * EXAM TITLE: XR ANKLE 3V AP/LAT/OBL LT, XR FOOT 3V AP/LAT/OBL LT EXAM DATE/TIME: 05/14/2024 9:22 AM COMPARISON: None. CLINICAL INDICATION/HISTORY: Lateral foot and ankle pain. TECHNIQUE: AP, mortise and lateral views of the left ankle are presented. AP, oblique and lateral views of the left foot are also present. FINDINGS: No acute fractures or subluxations are noted. The joint spaces are well preserved. An os trigonum is noted. There is no ankle joint effusion. The mineralization of the bones is normal. There is soft tissue prominence along the medial malleolus. IMPRESSION IMPRESSION: Soft tissue prominence along the medial malleolus. No acute fractures demonstrated in the left ankle or left foot. [facility]ish Thinner[facility] Transcribe Date/Time: May 14 2024 9:28A Dictated by : EDUAR CORTES MD This examination was interpreted and the report reviewed and electronically signed by: EDUAR CORTES MD on May 14 2024 9:36AM EST [facility] CNOVon 04-19-2024 CNOV Office Visit (UCWSTR ) ----- LESTER INFANTE ([id number]) 1 F Date Time Provider Department 04/19/24 9:30 AM NAYE HANCOCK [facility] During your visit today, we recorded the following information about you: Temperature Pulse Respiration Blood pressure 97.8 degrees 77/minute 18/minute 130/83 Weight Last Period 130.7 kg 04/05/24 Naye Hancock APRN.[employer] [employer] 04/19/2024 10:40 AM Signed Subjective Patient came in with complaints of left ankle and foot pain. Patient says she rolled her ankle yesterday wearing platform shoes. Patient says that her pinky toe and toe next to it are tingly little bit. Patient denies any other symptoms at this time. The history is provided by the patient. No immunopathologist was used. Review of Systems Constitutional: Negative. Skin: Negative. Objective Physical Exam Constitutional: Appearance: Normal appearance. Pulmonary: Effort: Pulmonary effort is normal. Musculoskeletal: Feet: Feet: Comments: Patient is tender in the area marked above. No signs of discoloration or deformity. Mild swelling is noted. Circulation and sensation are intact. Patient does have difficulty moving her ankle laterally from [id number]. Neurological: Mental Status: She is alert. PAST MEDICAL HISTORY Diagnosis Date History of insulin controlled gestational diabetes mellitus NEGATIVE MEDICAL HISTORY PAST SURGICAL HISTORY Procedure Laterality Date INCISION AND DRAINAGE ABSCESS SIMPLE/SINGLE 09/01/05 Right plantar foot ALLERGIES Patient has no known allergies. MEDICATIONS No prescriptions on file. No family history on file. Social History Tobacco Use Smoking status: Never Smokeless tobacco: Never Substance Use Topics Alcohol use: Never ASSESSMENT/PLAN: 1. Pain - ICD9: 780.96, ICD10: R52 - XR ANKLE GENERAL 3V AP/LAT/OBL LEFT - XR FOOT GENERAL 3V AP/LAT/OBL LEFT * * * * Physician Interpretation * * * * EXAM: XR FOOT 3V AP/LAT/OBL LT, XR ANKLE 3V AP/LAT/OBL LT PATIENT HISTORY: Lateral foot/ankle pain after rolling ankle yesterday TECHNIQUE: AP, lateral, and oblique radiograph of the left ankle. AP, lateral, and oblique radiograph of the left foot. COMPARISON: Radiographs 12/17/2018 and 12/14/2018 FINDINGS: No acute fracture or dislocation. Os trigonum. Soft tissues tissue swelling centered about the ankle. The ankle Matisse and Lisfranc reticulation appear maintained. No soft tissue defect or radiopaque foreign body. IMPRESSION IMPRESSION: Negative for acute fracture or malalignment of the left ankle or foot. Soft tissue edema about the ankle. Varnish Thinner: STAN Transcribe Date/Time: Apr 19 2024 10:21A Dictated by : MARKUS SUAREZ MD Patient was educated to alternate Tylenol Motrin rested for a week or 2. Patient was given an Marika wrap for comfort. Patient was agreeable to this care plan and will follow-up with primary care if signs and symptoms seem to be getting worse not better. Naye Hancock APRN.[employer] [employer] Allergies As of Date: 04/19/2024 (No Known Allergies) Date Reviewed: 04/19/2024 Reviewed by: Eliot Guzman MA - Fully Assessed Reason for Visit: Ankle Injury [1957] Cmt: L ankle injury x1 day Primary Visit Diagnosis:Pain [R52] Order(s):XR ANKLE GENERAL 3V AP/LAT/OBL LEFT [[id number]] Order #: [id number] FUTURE XR FOOT GENERAL 3V AP/LAT/OBL LEFT [[id number]] Order #: [id number] FUTURE Problem List As Of Date 04/19/2024 Noted Resolved ABSCESS FOOT (EXCEPT TOE)(Right plantar) [L03.*09/01/2005 03/25/2015 Encounter Status:Closed by NAYE HANCOCK on 04/19/24 Normal [facility] No Panel Informationon 04-19 IMPRESSION: Negative for acute fracture or malalignment of the left ankle or foot. Soft tissue edema about the ankle. [facility] Transcribe Date/Time: Apr 19 2024 10:21A Dictated by : MARKUS SUAREZ MD This examination was interpreted and the report reviewed and electronically signed by: MARKUS SUAREZ MD on Apr 19 2024 10:25AM [facility] DIVISION OF RADIOLOGY Radiology Study observation (narrative) [facility] No Panel InformationOrdered By: [facility] Provider on 04-19-2024 [facility] XR ANKLE 3V AP/LAT/OBL LTon 04-19-2024 XR ANKLE 3V AP/LAT/OBL LT * * *Final Report* * * DATE OF EXAM: Apr 19 2024 10:10AM WOX 5298 - XR ANKLE 3V AP/LAT/OBL LT / PROCEDURE REASON: Pain * * * * Physician Interpretation * * * * EXAM: XR FOOT 3V AP/LAT/OBL LT, XR ANKLE 3V AP/LAT/OBL LT PATIENT HISTORY: Lateral foot/ankle pain after rolling ankle yesterday TECHNIQUE: AP, lateral, and oblique radiograph of the left ankle. AP, lateral, and oblique radiograph of the left foot. COMPARISON: Radiographs 12/17/2018 and 12/14/2018 FINDINGS: No acute fracture or dislocation. Os trigonum. Soft tissues tissue swelling centered about the ankle. The ankle Matisse and Lisfranc reticulation appear maintained. No soft tissue defect or radiopaque foreign body. IMPRESSION: Negative for acute fracture or malalignment of the left ankle or foot. Soft tissue edema about the ankle. Varnish Thinner: [facility] Transcribe Date/Time: Apr 19 2024 10:21A Dictated by : MARKUS SUAREZ MD This examination was interpreted and the report reviewed and electronically signed by: MARKUS SUAREZ MD on Apr 19 2024 10:25AM EST [id number] Normal [facility] XR Ankle - left AP and Later al and obliqueon 04-19-2024 * * *Final Report* * * DATE OF EXAM: Apr 19 2024 10:10AM WOX 5298 - XR ANKLE 3V AP/LAT/OBL LT / PROCEDURE REASON: Pain * * * * Physician Interpretation * * * * EXAM: XR FOOT 3V AP/LAT/OBL LT, XR ANKLE 3V AP/LAT/OBL LT PATIENT HISTORY: Lateral foot/ankle pain after rolling ankle yesterday TECHNIQUE: AP, lateral, and oblique radiograph of the left ankle. AP, lateral, and oblique radiograph of the left foot. COMPARISON: Radiographs 12/17/2018 and 12/14/2018 FINDINGS: No acute fracture or dislocation. Os trigonum. Soft tissues tissue swelling centered about the ankle. The ankle Matisse and Lisfranc reticulation appear maintained. No soft tissue defect or radiopaque foreign body. DIVISION OF RADIOLOGY Provider, [facility] - 04/19/2024 * * *Final Report* * * DATE OF EXAM: Apr 19 2024 10:10AM WOX 5298 - XR ANKLE 3V AP/LAT/OBL LT / PROCEDURE REASON: Pain * * * * Physician Interpretation * * * * EXAM: XR FOOT 3V AP/LAT/OBL LT, XR ANKLE 3V AP/LAT/OBL LT PATIENT HISTORY: Lateral foot/ankle pain after rolling ankle yesterday TECHNIQUE: AP, lateral, and oblique radiograph of the left ankle. AP, lateral, and oblique radiograph of the left foot. COMPARISON: Radiographs 12/17/2018 and 12/14/2018 FINDINGS: No acute fracture or dislocation. Os trigonum. Soft tissues tissue swelling centered about the ankle. The ankle Matisse and Lisfranc reticulation appear maintained. No soft tissue defect or radiopaque foreign body. IMPRESSION IMPRESSION: Negative for acute fracture or malalignment of the left ankle or foot. Soft tissue edema about the ankle. [facility] Thinner[facility] Transcribe Date/Time: Apr 19 2024 10:21A Dictated by : MARKUS SUAREZ MD This examination was interpreted and the report reviewed and electronically signed by: MARKUS SUAREZ MD on Apr 19 2024 10:25AM EST [facility] XR FOOT 3V AP/LAT/OBL LTon 0 04-19-2024 XR FOOT 3V AP/LAT/OBL LT * * *Final Report* * * DATE OF EXAM: Apr 19 2024 10:10AM WOX 5336 - XR FOOT 3V AP/LAT/OBL LT / PROCEDURE REASON: Pain * * * * Physician Interpretation * * * * EXAM: XR FOOT 3V AP/LAT/OBL LT, XR ANKLE 3V AP/LAT/OBL LT PATIENT HISTORY: Lateral foot/ankle pain after rolling ankle yesterday TECHNIQUE: AP, lateral, and oblique radiograph of the left ankle. AP, lateral, and oblique radiograph of the left foot. COMPARISON: Radiographs 12/17/2018 and 12/14/2018 FINDINGS: No acute fracture or dislocation. Os trigonum. Soft tissues tissue swelling centered about the ankle. The ankle Matisse and Lisfranc reticulation appear maintained. No soft tissue defect or radiopaque foreign body. IMPRESSION: Negative for acute fracture or malalignment of the left ankle or foot. Soft tissue edema about the ankle. Varnish Thinner: [facility] Transcribe Date/Time: Apr 19 2024 10:21A Dictated by : MARKUS SUAREZ MD This examination was interpreted and the report reviewed and electronically signed by: MARKUS SUAREZ MD on Apr 19 2024 10:25AM EST [id number] Normal [facility] XR Foot - left AP and Latera l and obliqueon 04-19-2024 * * *Final Report* * * DATE OF EXAM: Apr 19 2024 10:10AM WOX 5336 - XR FOOT 3V AP/LAT/OBL LT / PROCEDURE REASON: Pain * * * * Physician Interpretation * * * * EXAM: XR FOOT 3V AP/LAT/OBL LT, XR ANKLE 3V AP/LAT/OBL LT PATIENT HISTORY: Lateral foot/ankle pain after rolling ankle yesterday TECHNIQUE: AP, lateral, and oblique radiograph of the left ankle. AP, lateral, and oblique radiograph of the left foot. COMPARISON: Radiographs 12/17/2018 and 12/14/2018 FINDINGS: No acute fracture or dislocation. Os trigonum. Soft tissues tissue swelling centered about the ankle. The ankle Matisse and Lisfranc reticulation appear maintained. No soft tissue defect or radiopaque foreign body. DIVISION OF RADIOLOGY Provider, [facility] - 04/19/2024 * * *Final Report* * * DATE OF EXAM: Apr 19 2024 10:10AM WOX 5336 - XR FOOT 3V AP/LAT/OBL LT / PROCEDURE REASON: Pain * * * * Physician Interpretation * * * * EXAM: XR FOOT 3V AP/LAT/OBL LT, XR ANKLE 3V AP/LAT/OBL LT PATIENT HISTORY: Lateral foot/ankle pain after rolling ankle yesterday TECHNIQUE: AP, lateral, and oblique radiograph of the left ankle. AP, lateral, and oblique radiograph of the left foot. COMPARISON: Radiographs 12/17/2018 and 12/14/2018 FINDINGS: No acute fracture or dislocation. Os trigonum. Soft tissues tissue swelling centered about the ankle. The ankle Matisse and Lisfranc reticulation appear maintained. No soft tissue defect or radiopaque foreign body. IMPRESSION IMPRESSION: Negative for acute fracture or malalignment of the left ankle or foot. Soft tissue edema about the ankle. Varnish Thinner: [facility] Transcribe Date/Time: Apr 19 2024 10:21A Dictated by : MARKUS SUAREZ MD This examination was interpreted and the report reviewed and electronically signed by: MARKUS SUAREZ MD on Apr 19 2024 10:25AM EST [facility] Maria A 03-13-2024 CNPN Telephone ([facility]) ----- LESTER INFANTE ([id number]) 1 F Date Time Provider Department 03/13/24 DIANELYS MARROQUIN [facility] During your visit today, we recorded the following information about you: Dianelys Marroquin APRN.CNP 03/13/2024 8:26 AM Signed Please advise patient: You have tested positive for influenza A. Tamiflu is not likely to be helpful at this stage of the illness. Recommend supportive therapy at home. - Drink PLENTY of fluids (Gatorade/Pedialyte, tea) and get PLENTY of rest - Vaporizers, humidifiers, hot showers, and warm fluids help open respiratory and sinus passages (helps with cough and congestion) - Saline nose spray - Tylenol or ibuprofen as needed for fever and/or discomfort - Cover cough and wash hands frequently to prevent the spread of germs. Influenza can be spread through contact with respiratory secretions (through sneezing, coughing, talking, touching) or contaminated objects. You can be contagious from before your symptoms began and for several days after. - stay home until fever free for 24 hours. Dianelys Marroquin APRN.Linda Anderson MA 03/13/2024 8:59 AM Signed Patient given results and verbalized understanding of instructions given. Linda Colvin MA Allergies As of Date: 03/13/2024 (No Known Allergies) Date Reviewed: 03/12/2024 Reviewed by: Linda Colvin MA - Fully Assessed Reason for Visit: Results [95] Problem List As Of Date 03/13/2024 Noted Resolved ABSCESS FOOT (EXCEPT TOE)(Right plantar) [L03.*09/01/2005 03/25/2015 Encounter Status:Closed by LINDA COLVIN on 03/13/24 [facility] CNOVon 03-12-2024 CNOV Office Visit ([facility] ) ----- LESTER INFANTE ([id number]) 1 F Date Time Provider Department 03/12/24 1:45 PM GEORGE MONTES [facility] During your visit today, we recorded the following information about you: Temperature Pulse Respiration Blood pressure 100.9 degrees 106/minute 16/minute 110/80 Weight 127.9 kg George Montes MD 03/12/2024 2:55 PM Signed Patient presents with: Nasal Congestion: drainage, cough, sob x 3 days HPI: Feeling sick starting 3 days ago. Positive symptoms: Cough, Shortness of breath, Nasal Congestion, Sore throat, Rhinorrhea, Malaise, Fatigue, Headache, Negative symptoms: Chest pain, Nausea, Vomiting, Diarrhea, OTC: Cold Medicine PHx of pneumonia. No Hx of asthma. PAST MEDICAL HISTORY Diagnosis Date History of insulin controlled gestational diabetes mellitus NEGATIVE MEDICAL HISTORY MEDICATIONS: No current outpatient medications on file. No current facility-administered medications for this visit. ALLERGIES: ALLERGIES No Known Allergies VITALS: BP 110/80 Pulse 106 Temp (!) 38.3 ?C (100.9 ?F) Resp 16 Wt 127.9 kg (281 lb 15.5 oz) LMP (LMP Unknown) SpO2 99% PHYSICAL EXAM: GEN: ill appearing HEENT: PERRL, EOMI, conjunctiva watery with trace injection Ears: canals clear. TMs without erythema, bulge, or effusion Sinuses: non-tender frontal sinus, non-tender maxillary sinuses Throat: moist mucous membranes, mild erythema, no exudate Neck: supple, no thyromegaly, no lymphadenopathy HEART: fast rate, regular rhythm, no murmurs LUNGS: intermittent faint right upper lung wheeze, no crackles, no increased WOB ASSESSMENT/PLAN: 1. Acute cough - ICD9: 786.2, ICD10: R05.1 (primary diagnosis) 2. Influenza-like illness - ICD9: 487.1, ICD10: J11.1 - XR CHEST 2V FRONTAL/LAT - negative - suspect influenza, differential includes COVID-19. - Discussed supportive care treatment with home isolation (fever free for 24 hours and improving symptoms), rest, cold medicine, and analgesia. - Red flags to seek further treatment include chest pain, shortness of breath, and lethargy; in the ER if severe. - COVID AND INFLUENZA A/B AND RSV PCR, ROUTINE George Montes MD Allergies As of Date: 03/12/2024 (No Known Allergies) Date Reviewed: 03/12/2024 Reviewed by: Linda Colvin MA - Fully Assessed Reason for Visit: Nasal Congestion [235] Cmt: drainage, cough, sob x 3 days Primary Visit Diagnosis:Acute cough [R05.1] Other Visit Diagnosis:Influenza-like illness [J11.1] Order(s):XR CHEST 2V FRONTAL/LAT [[id number]] Order #: [id number] FUTURE COVID AND INFLUENZA A/B AND RSV PCR, ROUTINE [SQCVFLRS] Order #: [id number]. #:[id number] Problem List As Of Date 03/12/2024 Noted Resolved ABSCESS FOOT (EXCEPT TOE)(Right plantar) [L03.*09/01/2005 03/25/2015 Medications Discontinued During This Encounter Prescriptions - ondansetron HCl (ZOFRAN ORAL) (Discontinued) Reported on 03/12/2024 - vit,alexander 74/iron/folic ( VITAMIN 1+1 ORAL) (Discontinued) Reported on 03/12/2024 - sertraline HCl (ZOLOFT ORAL) (Discontinued) Reported on 01/25/2021 Level of Service: OFFICE/OUTPATIENT ESTABLISHED LOW [facility] 20 MIN [58938] Encounter Status:Closed by GEORGE MONTES on 03/12/24 Normal [facility] COVID AND INFLUENZA A/B AND RSV PCR, ROUTINEon 03-12-2024 SARS-CoV-2 (COVID-19) RNA JULIANNE+probe Ql (Unsp spec) SARS-COV-2 (AGENT OF COVID-19) RNA: Not detected INFLUENZA A RNA: Detected INFLUENZA B RNA: Not detected RESPIRATORY SYNCYTIAL VIRUS (RSV) RNA: Not detected Abnormal [facility] Comment on above: Performed By: #### C VFLRS ####[facility] [id number] OF [place] XR CHEST 2V FRONTAL/LATon XR CHEST 2V FRONTAL/LAT * * *Final Report* * * DATE OF EXAM: Mar 12 2024 2:31PM WOX 5291 - XR CHEST 2V FRONTAL/LAT / PROCEDURE REASON: Acute cough * * * * Physician Interpretation * * * * EXAMINATION: CHEST RADIOGRAPH (2 VIEW FRONTAL and LATERAL) CLINICAL HISTORY: Acute cough MQ: XC2_6 EXAM DATE/TIME: 03/12/2024 2:31 PM COMPARISON: No relevant prior studies available. RESULT: Lines, tubes, and devices: None. Lungs and pleura: No consolidation. No lung mass. No pleural effusion. No pneumothorax. Cardiomediastinal silhouette: Normal cardiomediastinal silhouette. Bones and soft tissues: Unremarkable. IMPRESSION: No acute radiographic abnormality. Varnish Thinner: STAN Transcribe Date/Time: Mar 12 2024 2:31P Dictated by : KARISSA CASTELLANO MD This examination was interpreted and the report reviewed and electronically signed by: KARISSA CASTELLANO MD on Mar 12 2024 2:32PM EST [id number] Normal [facility] XR Chest PA and Lateralon IMPRESSION: No acute radiographic abnormality. Varnish Thinner: PSC Transcribe Date/Time: Mar 12 2024 2:31P Dictated by : KARISSA CASTELLANO MD This examination was interpreted and the report reviewed and electronically signed by: KARISSA CASTELLANO MD on Mar 12 2024 2:32PM EST DIVISION OF RADIOLOGY * * *Final Report* * * DATE OF EXAM: Mar 12 2024 2:31PM WOX 5291 - XR CHEST 2V FRONTAL/LAT / PROCEDURE REASON: Acute cough * * * * Physician Interpretation * * * * EXAMINATION: CHEST RADIOGRAPH (2 VIEW FRONTAL & LATERAL) CLINICAL HISTORY: Acute cough MQ: XC2_6 EXAM DATE/TIME: 03/12/2024 2:31 PM COMPARISON: No relevant prior studies available. RESULT: Lines, tubes, and devices: None. Lungs and pleura: No consolidation. No lung mass. No pleural effusion. No pneumothorax. Cardiomediastinal silhouette: Normal cardiomediastinal silhouette. Bones and soft tissues: Unremarkable. DIVISION OF RADIOLOGY Provider, [facility] Jean-Paul Peraza - 03/12/2024 * * *Final Report* * * DATE OF EXAM: Mar 12 2024 2:31PM WOX 5291 - XR CHEST 2V FRONTAL/LAT / PROCEDURE REASON: Acute cough * * * * Physician Interpretation * * * * EXAMINATION: CHEST RADIOGRAPH (2 VIEW FRONTAL & LATERAL) CLINICAL HISTORY: Acute cough MQ: XC2_6 EXAM DATE/TIME: 03/12/2024 2:31 PM COMPARISON: No relevant prior studies available. RESULT: Lines, tubes, and devices: None. Lungs and pleura: No consolidation. No lung mass. No pleural effusion. No pneumothorax. Cardiomediastinal silhouette: Normal cardiomediastinal silhouette. Bones and soft tissues: Unremarkable. IMPRESSION IMPRESSION: No acute radiographic abnormality. Varnish Thinner: STAN Transcribe Date/Time: Mar 12 2024 2:31P Dictated by : KARISSA CASTELLANO MD This examination was interpreted and the report reviewed and electronically signed by: KARISSA CASTELLANO MD on Mar 12 2024 2:32PM EST [facility] Radiology Study observation (narrative) [facility] XR Chest PA and LateralOrder ed By: [facility] Provider on 03-12-2024 [facility] HIV - WCHon 01-16-2024 HIV Non-Reactive Normal Nonreactive [facility] Comment on above: Order Comment: PLEAS E CALL RESULT TO [facility] @ [id number] [place] [id number] Performed By: #### L 500.3400, L501.2450, L100.0100, L700.8000, L500.2500 #### [facility] [address] [place], [place], [id number] Hepatitis B Surface Antigeno n 01-16-2024 HEP B Surf Ag Non-Reactive Normal Nonreactive [facility] Comment on above: Order Comment: PLEAS E CALL RESULT TO [facility] @ [id number] OR [id number] Performed By: #### L 500.3400, L501.2450, L100.0100, L700.8000, L500.2500 #### [facility] [address] [place], [address] Hepatitis C Antibodyon 01-15 Hepatitis C AB Non-Reactive Normal Nonreactive [facility] Comment on above: Order Comment: IVIS Paez CALL RESULT TO [facility] @ [id number] OR [id number] Result Comment: Non Reactive: < 0.8 Equivocal: >/= 0.8 to < 1.0 Reactive: >/= 1.0 The [facility] requires that a reactive/equivocal HCV antibody result be sent out for confirmation. HCV Quant by PCR testing. Performed By: #### L 500.3400, L501.2450, L100.0100, L700.8000, L500.2500 #### [facility] [address] [place], [address] CBC-Complete Blood Cnt No Di ffon 01-09-2024 HCT Normal 37-47 [facility] Comment on above: Order Comment: Comme nts: Day #1Reason for Laboratory Test Result Comment: Canc elled via OM: Order cancelled - Patient discharged Performed By: #### L 500.3400, L501.2450, L100.0100, L700.8000, L500.2500 #### [facility] [address] [place], [address] HGB Normal 12.0-15.0 [facility] Comment on above: Order Comment: Comme nts: Day #1Reason for Laboratory Test Result Comment: Canc elled via OM: Order cancelled - Patient discharged Performed By: #### L 500.3400, L501.2450, L100.0100, L700.8000, L500.2500 #### [facility] [address] [place], [address] MCH Normal 27.0-32.0 [facility] Comment on above: Order Comment: Comme nts: Day #1Reason for Laboratory Test Result Comment: Canc elled via OM: Order cancelled - Patient discharged Performed By: #### L 500.3400, L501.2450, L100.0100, L700.8000, L500.2500 #### [facility] [address] [place], [address] MCHC Normal 32-36 [facility] Comment on above: Order Comment: Comme nts: Day #1Reason for Laboratory Test Result Comment: Canc elled via OM: Order cancelled - Patient discharged Performed By: #### L 500.3400, L501.2450, L100.0100, L700.8000, L500.2500 #### [facility] [address] [place], [address] MCV Normal 81-99 [facility] Comment on above: Order Comment: Comme nts: Day #1Reason for Laboratory Test Result Comment: Canc elled via OM: Order cancelled - Patient discharged Performed By: #### L 500.3400, L501.2450, L100.0100, L700.8000, L500.2500 #### [facility] [address] [place], [address] PLT Normal 150-450 [facility] Comment on above: Order Comment: Comme nts: Day #1Reason for Laboratory Test Result Comment: Canc elled via OM: Order cancelled - Patient discharged Performed By: #### L 500.3400, L501.2450, L100.0100, L700.8000, L500.2500 #### [facility] [address] [place], [address] RBC Normal 4.2-5.4 [facility] Comment on above: Order Comment: Comme nts: Day #1Reason for Laboratory Test Result Comment: Canc elled via OM: Order cancelled - Patient discharged Performed By: #### L 500.3400, L501.2450, L100.0100, L700.8000, L500.2500 #### [facility] [address] [place], [address] RDW CV Normal 11.6-14.6 [facility] Comment on above: Order Comment: Comme nts: Day #1Reason for Laboratory Test Result Comment: Canc elled via OM: Order cancelled - Patient discharged Performed By: #### L 500.3400, L501.2450, L100.0100, L700.8000, L500.2500 #### [facility] [address] [place], [place], [id number] RDW SD Normal 35.1-43.9 [facility] Comment on above: Order Comment: Comme nts: Day #1Reason for Laboratory Test Result Comment: Canc elled via OM: Order cancelled - Patient discharged Performed By: #### L 500.3400, L501.2450, L100.0100, L700.8000, L500.2500 #### [facility] [address] [place], [place], [id number] WBC Normal 4.4-11.0 [facility] Comment on above: Order Comment: Comme nts: Day #1Reason for Laboratory Test Result Comment: Canc elled via OM: Order cancelled - Patient discharged Performed By: #### L 500.3400, L501.2450, L100.0100, L700.8000, L500.2500 #### [facility] [address] [place], [place], [address] Progress Noteon 01-09-2024 Room Service Waiter Authentication Interface Message Text Pt delivered 01/08/24 34 6/7 weeks Normal [facility] Urine Cultureon 01-09-2024 [facility] Mixed Gram Positive Organisms [place] Count 50,000-80,000 MIXC Mixed contaminants. Submit a new specimen if indicated. Normal [facility] Comment on above: Performed By: #### L 500.3400, L501.2450, L100.0100, L700.8000, L500.2500 #### [facility] [address] [place], [place], [address] 12 Lead EKGon 01-08-2024 12 Lead EKG [facility] Cardiovascular Services [address] [address] 12 Lead EKG 01/08/24 0704 MR#: [id number] Acct: [id number] Name: LESTER INFANTE Rep #: [id number] : 2000 23 From: Ena Lucas MD Attending Dr: Dr. Elizabeth Farooq MD Status: DIS IN Ordering Dr: Elizabeth Farooq MD Date: 01/08/24 Location: Sex: F C Admitted: 01/08/24 Test Reason : IRREGULAR RHYTHM Blood Pressure : */* mmHG Vent. Rate : 62 BPM Atrial Rate : 62 BPM P-R Int : 128 ms QRS Dur : 84 ms QT Int : 454 ms P-R-T Axes : 47 77 21 degrees QTcB Int : 460 ms Normal sinus rhythm with sinus arrhythmia Normal ECG When compared with ECG of 03-Jun-2021 19:21, Premature ventricular complexes are no longer Present Vent. rate has decreased by 34 bpm Confirmed by Ena Lucas ([id number]), makeup editor ABIMBOLA PONCE ([id number]) on 01/09/2024 9:57:55 AM Referred By: Elizabeth Farooq Confirmed By: Ena Lucas 01/09/24 0957 Date Ena Lucas MD CC: Dr. Elizabeth Farooq MD; No Primary Care Physician Signed Normal [facility] Bedside Glucoseon 01-08-2024 FINGERSTICK GLU 92 mg/dL Normal 74-106 [facility] Comment on above: Result Comment: ALMA GEMENT OF PATIENT CARE PER NURSING PROTOCOL Performed By: #### L 500.3400, L501.2450, L100.0100, L700.8000, L500.2500 #### [facility] [address] [place], [address] FINGERSTICK GLU 103 mg/dL Normal 74-106 [facility] Comment on above: Result Comment: ALMA GEMENT OF PATIENT CARE PER NURSING PROTOCOL Performed By: #### L 500.3400, L501.2450, L100.0100, L700.8000, L500.2500 #### [facility] [address] [place], [address] CBC W/Diff, Automatedon 11- Absolute Lymph 2.04 X10 3/uL Normal 0.83-4.51 [facility] Comment on above: Performed By: #### L 500.3400, L501.2450, L100.0100, L700.8000, L500.2500 #### [facility] [address] [place], [address] Absolute Neut 4.2 X10 3/uL Normal 2.0-7.7 [facility] Comment on above: Performed By: #### L 500.3400, L501.2450, L100.0100, L700.8000, L500.2500 #### [facility] [address] [place], [address] Basophils/100 WBC (Bld) 0.4 % Normal 0-1 [facility] Comment on above: Performed By: #### L 500.3400, L501.2450, L100.0100, L700.8000, L500.2500 #### [facility] [address] [place], [address] Eosinophils/100 WBC (Bld) 2.4 % Normal 0-5 [facility] Comment on above: Performed By: #### L 500.3400, L501.2450, L100.0100, L700.8000, L500.2500 #### [facility] [address] [place], [address] Erythrocyte distribution width (RBC) [Ratio] 14.5 % Normal 11.6-14.6 [facility] Comment on above: Performed By: #### L 500.3400, L501.2450, L100.0100, L700.8000, L500.2500 #### [facility] [address] [place], [address] Hematocrit (Bld) [Volume fraction] 32.9 % Low 37-47 [facility] Comment on above: Performed By: #### L 500.3400, L501.2450, L100.0100, L700.8000, L500.2500 #### [facility] [address] [place], [address] Hemoglobin (Bld) [Mass/Vol] 10.5 g/dL Low 12.0-15.0 [facility] Comment on above: Performed By: #### L 500.3400, L501.2450, L100.0100, L700.8000, L500.2500 #### [facility] [address] [place], [address] IG% 0.800 Normal 0.0-0.9 [facility] Comment on above: Result Comment: IG% - Immature Granulocytes (promyelocytes, myelocytes and metamyelocytes) > 1% indicates that a LEFT SHIFT is Present. Performed By: #### L 500.3400, L501.2450, L100.0100, L700.8000, L500.2500 #### [facility] [address] [place], [address] Lymphocytes/100 WBC (Bld) 28.5 % Normal 19-41 [facility] Comment on above: Performed By: #### L 500.3400, L501.2450, L100.0100, L700.8000, L500.2500 #### [facility] [address] [place], [address] MCH (RBC) [Entitic mass] 24.4 pg Low 27.0-32.0 [facility] Comment on above: Performed By: #### L 500.3400, L501.2450, L100.0100, L700.8000, L500.2500 #### [facility] [address] [place], [address] MCHC (RBC) [Mass/Vol] 31.9 g/dL Low 32-[address] [facility] Comment on above: Performed By: #### L 500.3400, L501.2450, L100.0100, L700.8000, L500.2500 #### [facility] [address] [place], [address] MCV (RBC) [Entitic vol] 76.3 fL Low 81-99 [facility] Comment on above: Performed By: #### L 500.3400, L501.2450, L100.0100, L700.8000, L500.2500 #### [facility] [address] [place], [address] Monocytes/100 WBC (Bld) 9.3 % Normal 0-10 [facility] Comment on above: Performed By: #### L 500.3400, L501.2450, L100.0100, L700.8000, L500.2500 #### [facility] [address] [place], [address] Neutrophils/100 WBC (Bld) 58.6 % Normal 47-70 [facility] Comment on above: Performed By: #### L 500.3400, L501.2450, L100.0100, L700.8000, L500.2500 #### [facility] [address] [place], [address] Nucleated RBC (Bld) [#/Vol] 0 10*3/uL Normal 0-5 [facility] Comment on above: Performed By: #### L 500.3400, L501.2450, L100.0100, L700.8000, L500.2500 #### [facility] [address] [place], [address] Platelet mean volume (Bld) [Entitic vol] 12.3 fL High 6.2-12.0 [facility] Comment on above: Performed By: #### L 500.3400, L501.2450, L100.0100, L700.8000, L500.2500 #### [facility] [address] [place], [address] Platelets (Bld) [#/Vol] 130 10*3/uL Low 150-450 [facility] Comment on above: Performed By: #### L 500.3400, L501.2450, L100.0100, L700.8000, L500.2500 #### [facility] [address] [place], [address] RBC (Bld) [#/Vol] 4.31 10*6/uL Normal 4.2-5.4 [facility] Comment on above: Performed By: #### L 500.3400, L501.2450, L100.0100, L700.8000, L500.2500 #### [facility] [address] [place], [address] RDW SD 39.8 fl Normal 35.1-43.9 [facility] Comment on above: Performed By: #### L 500.3400, L501.2450, L100.0100, L700.8000, L500.2500 #### [facility] [address] [place], [address] WBC (Bld) [#/Vol] 7.2 10*3/uL Normal 4.4-11.0 [facility] Comment on above: Performed By: #### L 500.3400, L501.2450, L100.0100, L700.8000, L500.2500 #### [facility] [address] [place], [address] Absolute Neut Normal 2.0-7.7 [facility] Comment on above: Result Comment: Canc elled via OM: Duplicate Order Performed By: #### L 500.3400, L501.2450, L100.0100, L700.8000, L500.2500 #### [facility] [address] [place], [address] HCT Normal 37-47 [facility] Comment on above: Result Comment: Canc elled via OM: Duplicate Order Performed By: #### L 500.3400, L501.2450, L100.0100, L700.8000, L500.2500 #### [facility] [address] [place], [address] HGB Normal 12.0-15.0 [facility] Comment on above: Result Comment: Canc elled via OM: Duplicate Order Performed By: #### L 500.3400, L501.2450, L100.0100, L700.8000, L500.2500 #### [facility] [address] [place], [address] MCH Normal 27.0-32.0 [facility] Comment on above: Result Comment: Canc elled via OM: Duplicate Order Performed By: #### L 500.3400, L501.2450, L100.0100, L700.8000, L500.2500 #### [facility] [address] [place], [address] MCHC Normal 32-36 [facility] Comment on above: Result Comment: Canc elled via OM: Duplicate Order Performed By: #### L 500.3400, L501.2450, L100.0100, L700.8000, L500.2500 #### [facility] [address] [place], [address] MCV Normal 81-99 [facility] Comment on above: Result Comment: Canc elled via OM: Duplicate Order Performed By: #### L 500.3400, L501.2450, L100.0100, L700.8000, L500.2500 #### [facility] [address] [place], [address] NEUT% Normal 47-70 [facility] Comment on above: Result Comment: Canc elled via OM: Duplicate Order Performed By: #### L 500.3400, L501.2450, L100.0100, L700.8000, L500.2500 #### [facility] [address] [place], [address] PLT Normal 150-450 [facility] Comment on above: Result Comment: Canc elled via OM: Duplicate Order Performed By: #### L 500.3400, L501.2450, L100.0100, L700.8000, L500.2500 #### [facility] [address] [place], [address] RBC Normal 0-5 [facility] Comment on above: Result Comment: Canc elled via OM: Duplicate Order Performed By: #### L 500.3400, L501.2450, L100.0100, L700.8000, L500.2500 #### [facility] [address] [place], [address] Order Comment: COLLE CTOR TO SPECIFY Result Comment: Canc elled via OM: MD Ordered RDW CV Normal 11.6-14.6 [facility] Comment on above: Result Comment: Canc elled via OM: Duplicate Order Performed By: #### L 500.3400, L501.2450, L100.0100, L700.8000, L500.2500 #### [facility] [address] [place], [address] RDW SD Normal 35.1-43.9 [facility] Comment on above: Result Comment: Canc elled via OM: Duplicate Order Performed By: #### L 500.3400, L501.2450, L100.0100, L700.8000, L500.2500 #### [facility] [address] [place], [address] WBC Normal 0-5 [facility] Comment on above: Result Comment: Merrill elled via OM: Duplicate Order Performed By: #### L 500.3400, L501.2450, L100.0100, L700.8000, L500.2500 #### [facility] [address] [place], [address] Order Comment: COLLE CTOR TO SPECIFY Result Comment: Merrill darnell via OM: Ordered Comprehensive Metabolic Prof ilon 01-08-2024 Albumin [Mass/Vol] 2.6 g/dL Low 3.2-5.0 [facility] Comment on above: Performed By: #### L 500.4050 #### [facility] [address] [place], [address] Albumin/Globulin [Mass ratio] 0.7 {ratio} Low 0.9-2.4 [facility] Comment on above: Performed By: #### L 500.4050 #### [facility] [address] [place], [address] ALK P 198 U/L High 45-117 [facility] Comment on above: Performed By: #### L 500.4050 #### [facility] [address] [place], [address] ALT [Catalytic activity/Vol] 23 U/L Normal 13-56 [facility] Comment on above: Performed By: #### L 500.4050 #### [facility] [address] [place], [address] AST [Catalytic activity/Vol] 16 U/L Normal 15-37 [facility] Comment on above: Performed By: #### L 500.4050 #### [facility] [address] [place], [address] Bilirubin [Mass/Vol] 0.50 mg/dL Normal 0.20-1.00 [facility] Comment on above: Result Comment: For patients on eltrombopag therapy, use of Dimension [place] TBIL is not recommended. Performed By: #### L 500.4050 #### [facility] [address] [place], [address] BUN/CRE 7.6 RATIO Low 10-20 [facility] Comment on above: Performed By: #### L 500.4050 #### [facility] [address] [place], [address] CA,Total 9.0 mg/dL Normal 8.5-10.1 [facility] Comment on above: Performed By: #### L 500.4050 #### [facility] [address] [place], [address] Chloride [Moles/Vol] 107 mmol/L Normal 98-107 [facility] Comment on above: Performed By: #### L 500.4050 #### [facility] [address] [place], [address] CO2 [Moles/Vol] 22.0 mmol/L Normal 21.0-32.0 [facility] Comment on above: Performed By: #### L 500.4050 #### [facility] [address] [place], [address] Creatinine [Mass/Vol] 0.66 mg/dL Normal 0.55-1.[address] [facility] Comment on above: Result Comment: The validity of the calculated GFR GFRAA in patients over 70 years has not been determined. Clinical correlation is essential. Performed By: #### L 500.4050 #### [facility] [address] [place], [address] ECRCL 175.31 ml/min Normal [facility] Comment on above: Performed By: #### L 500.4050 #### [facility] [address] [place], [address] EST GFR - AA 143 mL/min Normal >60 [facility] Comment on above: Result Comment: Afri can Jordanian GFR Calc Performed By: #### L 500.4050 #### [facility] [address] [place], [address] GAP 11 Normal 5-15 [facility] Comment on above: Performed By: #### L 500.4050 #### [facility] [address] [place], [address] GFR/1.73 sq M.predicted among non-blacks MDRD (S/P/Bld) [Vol rate/Area] 118 mL/min/{1.73_m2} Normal >60 [facility] Comment on above: Result Comment: Non- GFR Calc Performed By: #### L 500.4050 #### [facility] [address] [place], [address] Globulin (S) [Mass/Vol] 3.8 g/dL Normal 2.2-4.2 [facility] Comment on above: Performed By: #### L 500.4050 #### [facility] [address] [place], [address] Glucose [Mass/Vol] 107 mg/dL High 74-106 [facility] Comment on above: Result Comment: Fast ing Glucose result from 100 to 125 mg/dL suggests IMPAIRED HOMEOSTASIS per A.D.A. criteria. Performed By: #### L 500.4050 #### [facility] [address] [place], [address] Potassium [Moles/Vol] 3.7 mmol/L Normal 3.5-5.[address] [facility] Comment on above: Performed By: #### L 500.4050 #### [facility] [address] [place], [address] Sodium [Moles/Vol] 139 mmol/L Normal 136-145 [facility] Comment on above: Performed By: #### L 500.4050 #### [facility] [address] [place], [address] T PROT 6.4 g/dL Normal 6.4-8.2 [facility] Comment on above: Performed By: #### L 500.4050 #### [facility] [address] [place], [place], [address] Urea nitrogen [Mass/Vol] 5 mg/dL Low 7-18 [facility] Comment on above: Performed By: #### L 500.4050 #### [facility] [address] [place], [place], [address] Discharge Instructionon 12-16 Discharge Instruction [facility] Medical Records Department [address] [place] [address] Instructions for Home/Discharge Instructions 01/08/24 0454 MR#: [id number] Acct: [id number] Name: LESTER INFANTE Rep #: [id number] : 2000 23 From: Elizabeth Farooq MD PCP: Care Physician,No Primary Status:ADM IN Discharge Instructions Diet Discharge Diet: No restrictions DC O2, CPAP, BIPAP needs Additional Home O2 Discharge instructions: No Dressing / Incision Discharge Activity: May Not Drive (for 2 weeks or while taking narcotic pain medications.), May Shower and May Take a Tub Bath (in 7 days) May shower in (days): 0 May resume sexual activity in: 4-6 weeks Weight Bearing Status: Full weight bearing Lifting Restrictions: 20 pounds Dressing / Incision Call your doctor if your incision/area has: Continuous Slow Oozing, Sudden Increased Bleeding, Increased Pain/ Swelling, Increased Redness and Foul Smelling Discharge Call your doctor if you observe: Fever of 101 or Higher and Using more than 1 pad per hour (for 2 hours) Suture Line Care: Avoid Pulling/Pushing and Avoid Pinching/Bending Cleanse incision/area with: Soap Water and Keep Dressing Clean Dry Follow Up Care Please Follow Up With: Elizabeth Farooq MD When: Call [phone] to make an appointment for an incision check in 1-2 weeks. Test Results: Test results from this visit will be discussed in further detail at your follow-up appointment, if applicable. Discharge Plan Admission Admit Date/Time: 01/08/24 04:05 Attending Provider: Elizabeth Farooq Primary Care Provider: Marilia Carpio Primary Discharge Orders/Prescriptions Prescriptions: New oxycodone-acetaminophen [Percocet] 5-325 mg tablet 1 tab PO Q6H PRN (Reason: pain) 7 Days Qty: 28 0RF naproxen 500 mg tablet 500 mg PO BID PRN PRN (Reason: Pain) Qty: 30 1RF No Action Vitamin Plus Low Iron 27 mg iron- 1 mg tablet 1 tab PO DAILY ursodiol 300 mg capsule 500 mg PO TID ferrous sulfate [Feosol] 325 mg (65 mg iron) tablet 325 mg PO QODAY cephalexin 500 mg capsule 500 mg PO DAILY Humulin N NPH Insulin KwikPen 100 unit/mL (3 mL) insulin pen 30 unit subcut DAILY Patient Comments: 30units in AM, 30 units at HS Referrals / Follow Up: Care Physician,Marilia Primary [Primary Care Provider] - 01/08/24 1057 Elizabeth Farooq MD CC: No Primary Care Physician Signed Normal [facility] Fibrinogenon 01-08-2024 FIBRINOGEN 414 mg/dl Normal 203-444 [facility] Comment on above: Performed By: #### L 500.3400, L501.2450, L100.0100, L700.8000, L500.2500 #### [facility] [address] [place], [address] H AND P Exam - OB/GYNon 12-16 H&P Exam - PLATE STACKER HAND [facility] Medical Records Department [address] [place] [address] H P Exam - PLATE STACKER HAND 01/08/24 0430 MR#: [id number] Acct: [id number] Name: LESTER INFANTE Rep #: [id number] : 2000 23 From: Elizabeth Farooq MD PCP: [place] Physician,No Primary Status:ADM IN [facility]PI - General General Date of Admission: 01/08/24 HPI Narrative LESTER INFANTE, is a 23 F @ 34w5d with GDMA2, cholestasis and 5 previous c sections who presents with constant lower abdominal pain 10/10 over her incision, pain on palpation over her incision. she denies any vaginal bleeding or lof, still feeling FM. BS controlled with insulin in the , she has been seeing Dr Singh and was planning delivery at [facility] in [place]. Maternal Data Information YOANDY Calculator Estimated Delivery Date Method Current WG Current Estimate 02/14/24 Manual 34w 5d PFSH [facility] Medical History (Updated 01/08/24 @ 04:[address] Elizabeth Farooq MD) History of migraine History of kidney stones History of pre-eclampsia Anxiety and depression delivery delivered Home Medications ???Medication ???Instructions ???Recorded ???Last Taken ???Type vitamin with calcium 1 tab PO DAILY 04/14/21 01/07/24 History no.72-iron 27 mg-folic acid 1 mg tablet ( Vitamins Plus Low Iron) ferrous sulfate 325 mg (65 mg 325 mg PO QODAY 02/02/23 02/02/23 08:00 History iron) tablet (Feosol) 325 mg ursodiol 300 mg capsule 500 mg PO TID cholestatis 02/02/23 01/07/24 History cephalexin 500 mg capsule 500 mg PO DAILY Hx UTI 01/08/24 01/07/24 History insulin NPH isoph U-100 human 100 30 unit subcut DAILY GDM 01/08/24 01/07/24 History unit/mL (3 mL) subcutaneous pen (Humulin N NPH U-100 Insulin KwikPen) Allergy/AdvReac Type Severity Reaction Status Date / Time No Known Allergies Allergy Verified 01/08/24 03:46 Family History Grandfather Hypertension Grandmother Diabetes CVA (cerebral vascular accident) Hypertension Lupus Grandfather Diabetes Myocardial infarction CAD (coronary artery disease) Hypertension Surgical History (Updated 01/08/24 @ 04:[address] Elizabeth Farooq MD) History of Social History Smoking Status: Never smoker History Elective abortions Hx Para 0 Spontaneous abortions Hx # Term Pregnancies Ectopic pregnancies Hx # Pregnancies Multiple births # of living children NST FHR Rate Baby A Baseline: 130 Variability:: Moderate Accelerations:: 15 x 15 Decelerations:: None NST Reactive:: Yes FHR Category:: Category I Uterine Activity:: irregular ROS Constitutional Constitutional: Reports systems reviewed and no addt'l complaints, except as documented Eyes Eyes: Denies change in vision ENT HEENT: Reports systems reviewed and no addt'l complaints, except as documented; Denies headache(s) Cardiovascular Cardiovascular: Reports systems reviewed and no addt'l complaints, except as documented; Denies chest pain or dyspnea Respiratory/Chest Respiratory/Chest: Reports systems reviewed and no addt'l complaints, except as documented Gastrointestinal Gastrointestinal: Reports systems reviewed and no addt'l complaints, except as documented; Denies abdominal pain Genitourinary Genitourinary: Reports systems reviewed and no addt'l complaints, except as documented, contractions Details: present (irregular) and movement Details: present; Denies dysuria or genital lesions Musculoskeletal Musculoskeletal: Reports systems reviewed and no addt'l complaints, except as documented Neurologic Neurologic: Reports systems reviewed and no addt'l complaints, except as documented Endocrine Endocrinology: Reports systems reviewed and no addt'l complaints, except as documented Vital Signs Vital Signs Vital Signs: 01/08/24 03:34 01/08/24 03:34 01/08/24 03:34 Temperature 97.0 F L Temperature Source Temporal Pulse Rate Respiratory Rate 18 Blood Pressure BP Systolic BP Diastolic Pulse Ox 01/08/24 03:37 01/08/24 03:37 01/08/24 03:39 Temperature Temperature Source Pulse Rate 124 H Respiratory Rate Blood Pressure 133/66 H BP Systolic 133 BP Diastolic 66 Pulse Ox 98 01/08/24 03:39 Temperature Temperature Source Pulse Rate 78 Respiratory Rate Blood Pressure BP Systolic BP Diastolic Pulse Ox Weight Weight: 288 lb 6.4 oz Body Mass Index (BMI) 51.0 Physical Exam Const alert, oriented x3, no apparent distress and healthy appearing HEENT normocephalic and moist oral mucous membranes (more content not included)... Normal [facility] HIV - WCHon 01-08-2024 HIV Non-Reactive Normal Nonreactive [facility] Comment on above: Performed By: #### L 500.3400, L501.2450, L100.0100, L700.8000, L500.2500 #### [facility] [address] [place], [address] Hepatitis B Surface Antigeno n 01-08-2024 HEP B Surf Ag Non-Reactive Normal Nonreactive [facility] Comment on above: Order Comment: Reaso n for Exam: c/s Performed By: #### L 500.3400, L501.2450, L100.0100, L700.8000, L500.2500 #### [facility] [address] [place], [address] Hepatitis C Antibodyon 01-07 Hepatitis C AB Non-Reactive Normal Nonreactive [facility] Comment on above: Order Comment: Reaso n for Exam: c/s Result Comment: Non Reactive: < 0.8 Equivocal: >/= 0.8 to < 1.0 Reactive: >/= 1.0 The CDC requires that a reactive/equivocal HCV antibody result be sent out for confirmation. HCV Quant by PCR testing. Performed By: #### L 500.3400, L501.2450, L100.0100, L700.8000, L500.2500 #### [facility] [address] [place], [address] L509.8000on 01-08-2024 Syphilis Abs Non-Reactive Normal [facility] Comment on above: Performed By: #### L 500.3400, L501.2450, L100.0100, L700.8000, L500.2500 #### [facility] [address] [place], [address] Syphilis Abs Non-Reactive Normal [facility] Comment on above: Performed By: #### L 509.4005, L509.8000 #### [facility] [address] [place], [address] Operative Reporton Operative Report [facility] [facility] [address] [place] [address] Operative Report 01/08/24 0447 MR#: [id number] Acct: [id number] Name: LESTER INFANTE Rep #: [id number] : 2000 23 From: Elizabeth Farooq MD PCP: Care Physician,No Primary Status:ADM IN Location: [address] Assessment Plan (1) Sterilization: COMMENT: title 19 form received (2) 34 weeks gestation of : (3) Gestational diabetes requiring insulin: (4) Cholestasis: (5) Previous delivery affecting : COMMENT: x5 (6) Abdominal pain during in third trimester: (7) labor in third trimester: (8) History of pre-eclampsia: (9) Status post bilateral salpingectomy: (10) delivery delivered: COMMENT: RLTCS BS 34 weeks care at [facility]. suspected uterine rupture Maternal Data Information YOANDY Calculator Estimated Delivery Date Method Current WG Current Estimate 02/14/24 Manual 34w 5d Operative Report (OB) Cecarean Details Procedure Type: low transverse Surgeon: Elizabeth Farooq Date of Procedure: 01/08/24 Procedure Start Time: 05:24 Procedure Stop Time: 06:08 Pre-Operative Diagnosis: Other Other Pre-Operative diagnosis: see a/p comments Post-Operative Diagnosis: Same as Pre-operative diagnosis Classification: Scheduled Type of Anesthesia: Spinal Special Medications: none Antibiotic Given: Ancef 3 grams IV x1 Drain: Dillon to straight drain Estimated Blood Loss: 500 Fluids Replaced: crystalloid Findings Description of surgery: Spinal anesthesia was placed without difficulty, patient had anxiety during placement. Dillon catheter was placed. The patient was placed in the dorsal supine position with leftward tilt. Patient was prepped and draped in the normal sterile fashion. Pfannenstiel skin incision was made with the scalpel and carried through to the underlying layer of fascia with the scalpel. Fascia was nicked in the midline and the incision extended laterally. The rectus bellies were dissected off superiorly and inferiorly both sharply and with the bovie, scar tissue encountered but taken down with out complication. The peritoneum was entered sharply. significant omental adhesions encountered and taken down with the ligasure. sharp dissection employed with good visualization of the bladder. The incision was stretched and a very thin FILIPE seen with significant scarring present, which was taken down sharply with the scissors and then a low transverse uterine incision was made with the scalpel. The infant's head was delivered atraumatically followed by the anterior and posterior shoulders without complication the rest of the delivered. The cord was clamped and cut and the was handed off to awaiting nurse. The placenta was delivered spontaneously immediately following and was noted to be intact and have a three-vessel cord. The uterus was exteriorized cleared of all clots and debris, and the incision was closed in a single layer closure using #1 Monocryl. The ovaries and fallopian tubes were noted to be within normal limits. Patient had desired sterilization and was counseled preoperatively regarding irreversibility and permanency. Therefore bilateral fallopian tubes were elevated and transected across using a LigaSure device starting proximally to distally without complication the entire fallopian tubes were removed. The uterus was returned to the maternal abdomen and gutters were cleared of all clots and debris. The peritoneum was closed with 3-0 Monocryl in a running fashion. Gloves were changed prior to fascial closure. Fascia was closed with 0 PDS in a running fashion. Subcutaneous tissue was copiously irrigated and the skin was closed with 3-0 Monocryl in a subcuticular fashion. Mepilex dressing was applied without complication. Patient was taken to recovery in stable condition. Surgical findings: scarred uterus omental adhesions thin FILIPE Amniotic Membrane Rupture Type: Artificial Amniotic Fluid Description: Clear Placental Delivery Description: Spontaneous (marginal abruption aong the peripheray noted) Percentage of Placenta Abruption: 5 Specimen collected: Yes Description of specimen(s) removed: Placenta Cord Vessel Description: 3 Vessels Delayed Cord Clamping: Yes Liner Man cloud infrastructure architect: Yes Commercial Center Manager: Apurva Boland Tasks completed by first dyer: Opening closing, Retracting and Other (Assisting with delivery of the infant) Additional assistant director?: No Complications Complications: No Admit VTE Documentation VTE Present on Admission: No VTE Mechan Device Prophylaxis: SCD's Multi Select Codes Urinary/Genital Urinary/Genital CPT Codes: 77631 C/S+TL [place] 41810 delivery+PP Care(REGENCY MERIDIAN) 01/08/24 1056 Cosigner Signature (if applicable): (more content not included)... Normal [facility] Pathology Specimen OBon - PATH. Spec OB SEE PATHOLOGY REPORT Normal [facility] Comment on above: Order Comment: Comme nts: suture in right tubeSend Specimen For (Specify): Studies @ [facility] Lab:RoutineTime of Procedure: 0600Date of Procedure: 01/08/24Reason specimen being sent to pathology (Hx/complications):routineType of specimen: Fallopian TubeType of procedure performed: Repeat Section Result Comment: Spec imen submitted to Anatomical Pathology Department for testing. Performed By: #### L 500.3400, L501.2450, L100.0100, L700.8000, L500.2500 #### [facility] [address] [place], [place], [id number] Rubella IgGon 01-08-2024 Rubella IgG Reactive Normal Nonreactive [facility] Comment on above: Result Comment: Anti body Results Interpretation of Immune Status Non Reactive Presumed Non-Immune Equivocal Equivocal Reactive Presumed Immune Performed By: #### L 509.4005, L509.8000 #### [facility] [address] [place], [address] Surgery Specimen Level IIon 01-08-2024 Surgery Specimen Level II Patient Age/Sex Location Account Attending Physician LESTER INFANTE [id number] Dr. Elizabeth Farooq MD Specimen: [id number] Received: 01/08/24 Status: [place] Santos Num: [id number] Spec Type: FALL TUBES Subm Dr: Dr. Elizabeth Farooq MD HEADER OPERATION: Repeat section PRE-OP DIAGNOSIS: Delivery TISSUE SUBMITTED: Bilateral fallopian tubes- suture in right MICROSCOPIC DIAGNOSIS Right fallopian tube, salpingectomy: Complete segment of fallopian tube with no pathologic change. Left fallopian tube, salpingectomy: Complete segment of fallopian tube with no pathologic change. Benign paratubal cyst. AM: 01/10/2024 MICROSCOPIC DESCRIPTION Slides are reviewed. GROSS DESCRIPTION Received in fixative is one container labeled with the patient's name and designated bilateral fallopian tubes - suture in right. The specimen consists of two fallopian tubes with an average length of 6.0 cm and has an average diameter of 0.6 cm. The soft tissue adjacent to the left fallopian tube contains a __ cyst containing clear fluid. The cyst measures 1.0cm in greatest dimension. Both fallopian tubes have normal fimbriated ends. No mass lesions are identified. Director Critical Care sections are submitted in two cassettes as follows: 1 - right fallopian tube, 2 - left fallopian tube and left paratubal cyst. / AM: 01/09/2024 TC: CPT: 61840,80082 Patient Age/Sex Location Account Attending Physician LESTER INFANTE [id number] Dr. Elizabeth Farooq MD Signed (signature on file) Dr. Navarro Yost DO 01/10/24 1403 Normal [facility] Comment on above: Performed By: #### L 500.3400, L501.2450, L100.0100, L700.8000, L500.2500 #### [facility] [address] [place], [place], [id number] Type AND Screenon 01-08-2024 ABO and Rh group Nom (Bld) Blood group B Rh(D) positive Normal [facility] Comment on above: Order Comment: Labor Performed By: #### L 500.3400, L501.2450, L100.0100, L700.8000, L500.2500 #### [facility] [address] [place], [address] Ur Drg Scn w/Rflx AMPH Confi rmon 01-08-2024 Amphetamines Ql (U) Normal <1000 ng/mL [facility] Comment on above: Result Comment: Canc elled via OM: MD Ordered Performed By: #### L 500.3400, L501.2450, L100.0100, L700.8000, L500.2500 #### [facility] [address] [place], [address] BARBITIURATES Normal < 200 ng/mL [facility] Comment on above: Result Comment: Canc elled via OM: MD Ordered Performed By: #### L 500.3400, L501.2450, L100.0100, L700.8000, L500.2500 #### [facility] [address] [place], [address] BENZODIAZIPINE Normal < 200 ng/mL [facility] Comment on above: Result Comment: Donovanc elled via OM: MD Ordered Performed By: #### L 500.3400, L501.2450, L100.0100, L700.8000, L500.2500 #### [facility] [address] [place], [address] Cocaine Ql (U) Normal < 300 ng/mL [facility] Comment on above: Result Comment: Canc elled via OM: MD Ordered Performed By: #### L 500.3400, L501.2450, L100.0100, L700.8000, L500.2500 #### [facility] [address] [place], [address] DRUG CONFIRM Normal [facility] Comment on above: Result Comment: Canc elled via OM: MD Ordered Performed By: #### L 500.3400, L501.2450, L100.0100, L700.8000, L500.2500 #### [facility] [address] [place], [address] ECSTACY Normal < 500 ng/mL [facility] Comment on above: Result Comment: Canc elled via OM: MD Ordered Performed By: #### L 500.3400, L501.2450, L100.0100, L700.8000, L500.2500 #### [facility] [address] [place], [address] Methadone Ql (U) Normal < 300 ng/mL [facility] Comment on above: Result Comment: Canc elled via OM: MD Ordered Performed By: #### L 500.3400, L501.2450, L100.0100, L700.8000, L500.2500 #### [facility] [address] [place], [address] Opiates Ql (U) Normal < 300 ng/mL [facility] Comment on above: Result Comment: Canc elled via OM: MD Ordered Performed By: #### L 500.3400, L501.2450, L100.0100, L700.8000, L500.2500 #### [facility] [address] [place], [address] PCP Normal < 25 ng/mL [facility] Comment on above: Result Comment: Canc elled via OM: MD Ordered Performed By: #### L 500.3400, L501.2450, L100.0100, L700.8000, L500.2500 #### [facility] [address] [place], [address] THC Normal < 50 ng/mL [facility] Comment on above: Result Comment: Canc elled via OM: MD Ordered Performed By: #### L 500.3400, L501.2450, L100.0100, L700.8000, L500.2500 #### [facility] [address] [place], [address] VISTA UDS PH Normal [facility] Comment on above: Result Comment: Canc elled via OM: MD Ordered Performed By: #### L 500.3400, L501.2450, L100.0100, L700.8000, L500.2500 #### [facility] [address] [place], [address] Urinalysis, Completeon 01-07 BACTERIA Normal None Seen [facility] Comment on above: Order Comment: COLLE CTOR TO SPECIFY Result Comment: Canc elled via OM: MD Ordered Performed By: #### L 500.3400, L501.2450, L100.0100, L700.8000, L500.2500 #### [facility] [address] [place], [address] BILIRUBIN URINE Normal Negative [facility] Comment on above: Order Comment: COLLE CTOR TO SPECIFY Result Comment: Canc elled via OM: MD Ordered Performed By: #### L 500.3400, L501.2450, L100.0100, L700.8000, L500.2500 #### [facility] [address] [place], [address] Clarity (U) Normal Clear [facility] Comment on above: Order Comment: COLLE CTOR TO SPECIFY Result Comment: Canc elled via OM: MD Ordered Performed By: #### L 500.3400, L501.2450, L100.0100, L700.8000, L500.2500 #### [facility] [address] [place], [address] Color (U) Normal Yellow [facility] Comment on above: Order Comment: COLLE CTOR TO SPECIFY Result Comment: Canc elled via OM: MD Ordered Performed By: #### L 500.3400, L501.2450, L100.0100, L700.8000, L500.2500 #### [facility] [address] [place], [address] EPI,SQUAMOUS Normal 5-10 [facility] Comment on above: Order Comment: COLLE CTOR TO SPECIFY Result Comment: Canc elled via OM: MD Ordered Performed By: #### L 500.3400, L501.2450, L100.0100, L700.8000, L500.2500 #### [facility] [address] [place], [address] GLUCOSE, UR Normal Normal [facility] Comment on above: Order Comment: COLLE CTOR TO SPECIFY Result Comment: Canc elled via OM: MD Ordered Performed By: #### L 500.3400, L501.2450, L100.0100, L700.8000, L500.2500 #### [facility] [address] [place], [address] KETONE UR Normal Negative [facility] Comment on above: Order Comment: COLLE CTOR TO SPECIFY Result Comment: Canc elled via OM: MD Ordered Performed By: #### L 500.3400, L501.2450, L100.0100, L700.8000, L500.2500 #### [facility] [address] [place], [address] LEUK ESTERASE Normal Negative [facility] Comment on above: Order Comment: COLLE CTOR TO SPECIFY Result Comment: Canc elled via OM: MD Ordered Performed By: #### L 500.3400, L501.2450, L100.0100, L700.8000, L500.2500 #### [facility] [address] [place], [address] Mucus Ql (Urine sed) Normal [facility] Comment on above: Order Comment: COLLE CTOR TO SPECIFY Result Comment: Canc elled via OM: MD Ordered Performed By: #### L 500.3400, L501.2450, L100.0100, L700.8000, L500.2500 #### [facility] [address] [place], [address] Nitrite Ql (U) Normal Negative [facility] Comment on above: Order Comment: COLLE CTOR TO SPECIFY Result Comment: Canc elled via OM: MD Ordered Performed By: #### L 500.3400, L501.2450, L100.0100, L700.8000, L500.2500 #### [facility] [address] [place], [address] OCCULT BLOOD-UR Normal Negative [facility] Comment on above: Order Comment: COLLE CTOR TO SPECIFY Result Comment: Canc elled via OM: MD Ordered Performed By: #### L 500.3400, L501.2450, L100.0100, L700.8000, L500.2500 #### [facility] [address] [place], [address] pH UR Normal 5.0 - 8.0 [facility] Comment on above: Order Comment: COLLE CTOR TO SPECIFY Result Comment: Canc elled via OM: MD Ordered Performed By: #### L 500.3400, L501.2450, L100.0100, L700.8000, L500.2500 #### [facility] [address] [place], [address] PROT DIPSTX Normal Negative [facility] Comment on above: Order Comment: COLLE CTOR TO SPECIFY Result Comment: Canc elled via OM: MD Ordered Performed By: #### L 500.3400, L501.2450, L100.0100, L700.8000, L500.2500 #### [facility] [address] [place], [address] SP.GR. DIPSTX Normal 1.002-1.030 [facility] Comment on above: Order Comment: COLLE CTOR TO SPECIFY Result Comment: Canc elled via OM: MD Ordered Performed By: #### L 500.3400, L501.2450, L100.0100, L700.8000, L500.2500 #### [facility] [address] [place], [address] UR Preservative Normal [facility] Comment on above: Order Comment: COLLE CTOR TO SPECIFY Result Comment: Canc elled via OM: MD Ordered Performed By: #### L 500.3400, L501.2450, L100.0100, L700.8000, L500.2500 #### [facility] [address] [place], [address] UROBILI Normal Normal [facility] Comment on above: Order Comment: KORIN CTOR TO SPECIFY Result Comment: Canc elled via OM: MD Ordered Performed By: #### L 500.3400, L501.2450, L100.0100, L700.8000, L500.2500 #### [facility] [address] [place], [address] Urinalysis, Routine (Dipstic k)on 01-08-2024 BILIRUBIN URINE Negative Normal Negative [facility] Comment on above: Order Comment: KORIN CTOR TO SPECIFY Performed By: #### L 500.3400, L501.2450, L100.0100, L700.8000, L500.2500 #### [facility] [address] [place], [address] Clarity (U) Cloudy Normal Clear [facility] Comment on above: Order Comment: KORIN CTOR TO SPECIFY Performed By: #### L 500.3400, L501.2450, L100.0100, L700.8000, L500.2500 #### [facility] [address] [place], [address] Color (U) Yellow Normal Yellow [facility] Comment on above: Order Comment: KORIN CTOR TO SPECIFY Performed By: #### L 500.3400, L501.2450, L100.0100, L700.8000, L500.2500 #### [facility] [address] [place], [address] GLUCOSE, UR Normal Normal Normal [facility] Comment on above: Order Comment: KORIN CTOR TO SPECIFY Performed By: #### L 500.3400, L501.2450, L100.0100, L700.8000, L500.2500 #### [facility] [address] [place], [address] KETONE UR 15 mg/dl Abnormal Negative [facility] Comment on above: Order Comment: KORIN CTOR TO SPECIFY Performed By: #### L 500.3400, L501.2450, L100.0100, L700.8000, L500.2500 #### [facility] [address] [place], [place], [facility] LEUK ESTERASE 500 /ul Abnormal Negative [facility] Comment on above: Order Comment: KORIN CTOR TO SPECIFY Performed By: #### L 500.3400, L501.2450, L100.0100, L700.8000, L500.2500 #### [facility] [address] [place], [place], [facility] Nitrite Ql (U) Negative Normal Negative [facility] Comment on above: Order Comment: KORIN CTOR TO SPECIFY Performed By: #### L 500.3400, L501.2450, L100.0100, L700.8000, L500.2500 #### [facility] [address] [place], [address] OCCULT BLOOD-UR 10 /ul Abnormal Negative [facility] Comment on above: Order Comment: KORIN CTOR TO SPECIFY Performed By: #### L 500.3400, L501.2450, L100.0100, L700.8000, L500.2500 #### [facility] [address] [place], [address] pH UR 6.0 Normal 5.0 - 8.0 [facility] Comment on above: Order Comment: KOIRN CTOR TO SPECIFY Performed By: #### L 500.3400, L501.2450, L100.0100, L700.8000, L500.2500 #### [facility] [address] [place], [address] PROT DIPSTX 30 mg/dl Abnormal Negative [facility] Comment on above: Order Comment: KORIN CTOR TO SPECIFY Performed By: #### L 500.3400, L501.2450, L100.0100, L700.8000, L500.2500 #### [facility] [address] [place], [address] SP.GR. DIPSTX 1.025 Normal 1.002-1.030 [facility] Comment on above: Order Comment: KORIN CTOR TO SPECIFY Performed By: #### L 500.3400, L501.2450, L100.0100, L700.8000, L500.2500 #### [facility] [address] [place], [address] UROBILI 4 mg/dl Abnormal Normal [facility] Comment on above: Order Comment: KORIN CTOR TO SPECIFY Performed By: #### L 500.3400, L501.2450, L100.0100, L700.8000, L500.2500 #### [facility] [address] [place], [address] Urine Drug Screen (VISTA)on 01-08-2024 AMPHETAMINES Negative Normal <1000 ng/mL [facility] Comment on above: Performed By: #### L 505.5000 #### [facility] [address] [place], [address] BARBITIURATES Negative Normal < 200 ng/mL [facility] Comment on above: Performed By: #### L 505.5000 #### [facility] [address] [place], [address] BENZODIAZIPINE Negative Normal < 200 ng/mL [facility] Comment on above: Performed By: #### L 505.5000 #### [facility] [address] [place], [address] COCAINE Negative Normal < 300 ng/mL [facility] Comment on above: Performed By: #### L 505.5000 #### [facility] [address] [place], [address] ECSTACY Negative Normal < 500 ng/mL [facility] Comment on above: Performed By: #### L 505.5000 #### [facility] [address] [place], [address] METHADONE Negative Normal < 300 ng/mL [facility] Comment on above: Performed By: #### L 505.5000 #### [facility] [address] [place], [place], [facility] OPIATES Negative Normal < 300 ng/mL [facility] Comment on above: Performed By: #### L 505.5000 #### [facility] [address] [place], [place], [facility] PCP Negative Normal < 25 ng/mL [facility] Comment on above: Performed By: #### L 505.5000 #### [facility] [address] [place], [facility] THC Negative Normal < 50 ng/mL [facility] Comment on above: Performed By: #### L 505.5000 #### [facility] [address] [place], [place], [facility] VISTA UDS PH 5 Normal [facility] Comment on above: Performed By: #### L 505.5000 #### [facility] [address] [place], [address] BILEon 01-04-2024 Chenodeoxycholate 1.2 umol/l Normal [facility] Comment on above: Result Comment: Refe rence Range: All Ages: <5.8 Performed By: #### G FR, ANEU, CBC, LD, CMP, ADIFF #### [place] [address] Cholate 1.6 umol/l [facility] Comment on above: Result Comment: Refe rence Range: All Ages: <2.2 Performed By: #### G FR, ANEU, CBC, LD, CMP, ADIFF #### [place] [address] Deoxycholate 0.70 umol/l [facility] Comment on above: Result Comment: Refe rence Range: All Ages: <3.3 Performed By: #### G FR, ANEU, CBC, LD, CMP, ADIFF #### [place] [address] Total Bile Acids 3.5 umol/l [facility] Comment on above: Result Comment: This test was developed and its performance characteristics determined by [facility]. It has not been cleared or approved by the Food and Drug Administration. 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 New dx cholestasis. Pt is taking her actigal. No improvement with palmar itching. She indicates she was evaluated in triage 12/29 for contractions. They have lessened today and will notify OB should recur due to prior hx deliveries. She is noting some changes in movement. BPP pending from today. She is scheduled with OB weekly and next appt. Is tomorrow. Her blood glucose record was reviewed. Her insulin changed. Current dose is NPH 28 Units before breakfast and NPH 30 Units at 10pm. History of Presenting Problem: She is unaccompanied. Gestational Diabetes Lester presents today for her comanage visit. She has GDMA2 diabetes. The disease course is fluctuating. Her symptom course is compliant. Current treatments include insulin injections and diet. She is compliant with treatment most of the time. Blood glucose readings reviewed. Readings are as follows: FBS in 90s. Past Medical History: Past Medical History: Diagnosis Date Anxiety At high risk for infection 01/14/2023 Risk for Infectious Diseases: We reviewed prevention strategies for maternal-infant protection against infectious illnesses. Covid infection risk- vaccination, including Boosters if not already concluded is recommended. She decided against it. Seasonal Flu: Vaccination in available in Oct-Mar window and is recommended. Cholestasis during in third trimester Ursodiol po BID Depression Gestational diabetes mellitus (GDM) Liver disease Migraine headache Obesity Recurrent UTI (urinary tract infection) complicating , third trimester 11/30/2023 Past Surgical History: Procedure Laterality Date SECTION, LOW TRANSVERSE x5 Medications: Outpatient Encounter Medications as of 01/02/2024 Medication Sig Dispense Refill ursodiol (MARIA DOLORES) 500 MG TABS Take 1 Tablet (500 mg) by mouth 2 times daily cephALEXin (KEFLEX) 500 MG capsule Take 1 Capsule (500 mg) by mouth nightly at bedtime for 30 days 30 Capsule 2 Insulin NPH, Human,, Isophane, 100 UNIT/ML SUPN Inject 40-80 units SQ daily as directed. (Patient taking differently: Inject 40-80 units SQ daily as directed. NPH 28 units in the morning and 30 units at bedtime) 24 mL 5 Insulin Pen Needle (BD PEN NEEDLE GREG U/F) 32G X 4 [place] [facility] [place] to test/inject 4-7 times daily. 200 Each 5 [DISCONTINUED] Continuous Glucose Sensor (DEXCOM G7 SENSOR) [facility] Provide 3 pack of sensors (30 day supply) [facility] [id number] 3 Each 6 RA ALCOHOL SWABS 70 % PADS Blood Glucose Monitoring Suppl (ONE TOUCH ULTRA 2) w/Device KIT use as directed to CHECK BLOOD SUGAR four times a day FREESTYLE PRECISION DANAY TEST test strip FREESTYLE LANCETS [facility] Vit w/Qs-Huytxmdyc-EE (PNV PO) Take 1 Tablet by mouth daily Continuous Glucose Sensor (DEXCOM G7 SENSOR) [facility] Provide 3 pack of sensors (30 day supply) [facility] [id number] 3 Each 2 Insulin Syringe-Needle U-100 31G X 5/16 1 ML [facility] Use as directed (Patient not taking: Reported on 01/02/2024) 40 Each 3 No facility-administered encounter medications on file as of 01/02/2024. Allergies: No Known Allergies Family Medical History: [...] use: Never Physical Exam: Vitals Extended BP: 120/68 Weight - Scale: (!) 130.8 kg (288 lb 6.4 oz) Heart Rate: Other (for US today) Number of Fetuses: 1 Heart Rate: for ultrasound today Movement: Present (states a little less active than normal) Vaginal Bleeding: Absent Cramps / Contractions: Present (irregular per pt) Mucous Discharge: Absent BPP 8/8 with normal RACHEAL today- Full report to be sent under separate cover by Dr Melendez Assessment/Plan: Lester Infante is a 23 y.o. at 33w6d with: Active Non-Hospital Problems Diagnosis Date Noted History of pre-eclampsia in prior , currently in third trimester 12/09/2023 Normotensive and asymptomatic Reviewed on 01/02/2024 Obesity affecting in third trimester 12/09/2023 BMI 50 Obesity complicating is associated with increased maternal and risks including: gestational diabetes, hypertensive disorders, iatrogenic delivery, dysfunctional labor, postterm , large for gestational age infant, shoulder dystocia, obstructive sleep apnea, hemorrhag (more content not included)... Normal [facility] LABORATORYOrdered By: Kevin Marin on 12-30-2023 Appearance (U) Cloudy *ABN* (12/30/23 9:24 AM) Invalid Interpretation Code Clear AH Auto Urine SS Bacteria LM.HPF (Urine sed) [#/Area] 3 /[HPF] Invalid Interpretation Code Negative AH Auto Urine SS Bilirubin Ql (U) Negative (12/30/23 9:24 AM) Normal Neg-Trace AH Auto Urine SS Color (U) Yellow (12/30/23 9:24 AM) Normal AH Auto Urine SS Glucose Test strip (U) [Mass/Vol] Negative Normal Negative AH Auto Urine SS Hemoglobin Auto test strip (U) [Mass/Vol] Negative (12/30/23 9:24 AM) Normal Neg-Trace AH Auto Urine SS Ketones Ql (U) Negative Normal Neg-Trace AH Auto Urine SS UA Leuk Est Trace *NA* (12/30/23 9:24 AM) Invalid Interpretation Code Negative Auto Urine SS UA Nitrite Negative (12/30/23 9:24 AM) Normal Negative Auto Urine SS UA pH 7.5 (12/30/23 9:24 AM) Normal 5.0 - 8.0 Auto Urine SS UA Protein Negative Normal Negative Auto Urine SS UA RBC Negative Normal 0-2 Auto Urine SS UA Spec Grav 1.015 (12/30/23 9:24 AM) Normal 1.006-1.029 Auto Urine SS UA Specimen Type Clean Catch (12/30/23 9:24 AM) Normal Auto Urine SS UA Squam Epithelial 25-50 /HPF Invalid Interpretation Code 0-20 Auto Urine SS UA Urobilinogen 1.0 E.U./dL Normal 0.2-1.0 Auto Urine SS WBC LM.HPF (Urine sed) [#/Area] 3-5 /HPF Normal 0-5 Auto Urine SS UAon 12-30-2023 Color (U) Yellow Normal [facility] Comment on above: Performed By: #### G FR, ANEU, CBC, LD, CMP, ADIFF #### [address] [address] Glucose (U) [Mass/Vol] Negative Normal Negative [facility] Comment on above: Performed By: #### G FR, ANEU, CBC, LD, CMP, ADIFF #### [place] [address] Ketones Ql (U) Negative Normal Neg-Trace [facility] Comment on above: Performed By: #### G FR, ANEU, CBC, LD, CMP, ADIFF #### [place] [address] UA Appear Cloudy Abnormal Clear [facility] Comment on above: Performed By: #### G FR, ANEU, CBC, LD, CMP, ADIFF #### [place] [address] UA Blood Negative Normal Neg-Trace [facility] Comment on above: Performed By: #### G FR, ANEU, CBC, LD, CMP, ADIFF #### [place] [address] UA Leuk Est Trace Normal Negative [facility] Comment on above: Performed By: #### G FR, ANEU, CBC, LD, CMP, ADIFF #### [place] [address] UA Nitrite Negative Normal Negative [facility] Comment on above: Performed By: #### G FR, ANEU, CBC, LD, CMP, ADIFF #### [place] [address] UA pH 7.5 Normal 5.0 - 8.0 [facility] Comment on above: Performed By: #### G FR, ANEU, CBC, LD, CMP, ADIFF #### [place] [address] UA Protein Negative Normal Negative [facility] Comment on above: Performed By: #### G FR, ANEU, CBC, LD, CMP, ADIFF #### [place] [address] UA Spec Grav 1.015 Normal 1.006-1.029 [facility] Comment on above: Performed By: #### G FR, ANEU, CBC, LD, CMP, ADIFF #### [place] [address] UA Specimen Type Clean Catch Normal [facility] Comment on above: Performed By: #### G FR, ANEU, CBC, LD, CMP, ADIFF #### [place] [id number] UA Urobilinogen 1.0 E.U./dL Normal 0.2-1.0 [facility] Comment on above: Performed By: #### G FR, ANEU, CBC, LD, CMP, ADIFF #### [address] [address] Urobilinogen (U) [Mass/Vol] Negative Normal Neg-Trace [facility] Comment on above: Performed By: #### G FR, ANEU, CBC, LD, CMP, ADIFF #### [address] [address] UAMICon 12-30-2023 UA Bacteria 3+ /hpf Abnormal Negative [facility] Comment on above: Performed By: #### G FR, ANEU, CBC, LD, CMP, ADIFF #### [place] [address] UA RBC Negative Normal 0-2 [facility] Comment on above: Performed By: #### G FR, ANEU, CBC, LD, CMP, ADIFF #### [place] [address] UA Squam Epithelial 25-50 Abnormal 0-20 [facility] Comment on above: Performed By: #### G FR, ANEU, CBC, LD, CMP, ADIFF #### [place] [address] UA WBC 3-5 Normal 0-5 [facility] Comment on above: Performed By: #### G FR, ANEU, CBC, LD, CMP, ADIFF #### [place] [address] .Auto Diffon 12-23-2023 Basophil, Absolute 0.1 10 3/mcL Normal 0.0-0.3 [facility] Comment on above: Performed By: #### G FR, ANEU, CBC, LD, CMP, ADIFF #### [place] [phone] Basophils/100 WBC (Bld) 0.7 % Normal 0.0-2.5 [facility] Comment on above: Performed By: #### G FR, ANEU, CBC, LD, CMP, ADIFF #### [address] [address] Eosinophil, Absolute 0.1 10 3/mcL Normal 0.0-0.7 [facility] Comment on above: Performed By: #### G FR, ANEU, CBC, LD, CMP, ADIFF #### [address] [address] Eosinophils/100 WBC (Bld) 0.5 % Normal 0.0-6.0 [facility] Comment on above: Performed By: #### G FR, ANEU, CBC, LD, CMP, ADIFF #### [address] [address] Lymphocyte, Absolute 2.1 10 3/mcL Normal 0.9-4.3 [facility] Comment on above: Performed By: #### G FR, ANEU, CBC, LD, CMP, ADIFF #### [address] [address] Lymphocytes/100 WBC (Bld) 18.7 % Low 20.0-40.0 [facility] Comment on above: Performed By: #### G FR, ANEU, CBC, LD, CMP, ADIFF #### [address] [address] Monocyte, Absolute 0.7 10 3/mcL Normal 0.1-1.4 [facility] Comment on above: Performed By: #### G FR, ANEU, CBC, LD, CMP, ADIFF #### [address] [address] Monocytes/100 WBC (Bld) 6.0 % Normal 2.0-13.0 [facility] Comment on above: Performed By: #### G FR, ANEU, CBC, LD, CMP, ADIFF #### [address] [address] Neutrophils/100 WBC (Bld) 74.1 % Normal 50.0-75.0 [facility] Comment on above: Performed By: #### G FR, ANEU, CBC, LD, CMP, ADIFF #### [address] [address] .GFRon 12-23-2023 GFR >60 Normal [facility] Comment on above: Result Comment: GFR Population [...] 15 mL/min/1.73 square meters Performed By: #### G FR, ANEU, CBC, LD, CMP, ADIFF #### [place] [address] GFR Non- >60 Normal [facility] Comment on above: Result Comment: GFR Population [...] 15 mL/min/1.73 square meters Performed By: #### G FR, ANEU, CBC, LD, CMP, ADIFF #### [address] [address] .NEUABSon 12-23-2023 Neutrophil, Absolute 8.2 10 3/mcL High 2.3-8.1 [facility] Comment on above: Performed By: #### G FR, ANEU, CBC, LD, CMP, ADIFF #### [place] [address] CBCon 12-23-2023 Erythrocyte distribution width (RBC) [Ratio] 14.8 % Normal 11.5-15.5 [facility] Comment on above: Performed By: #### G FR, ANEU, CBC, LD, CMP, ADIFF #### [place] [address] Hematocrit (Bld) [Volume fraction] 31.4 % Low 34.0-46.0 [facility] Comment on above: Performed By: #### G FR, ANEU, CBC, LD, CMP, ADIFF #### [place] [address] Hgb 10.4 G/dL Low 12.0-16.0 [facility] Comment on above: Performed By: #### G FR, ANEU, CBC, LD, CMP, ADIFF #### [place] [address] MCH (RBC) [Entitic mass] 24.6 pg Low 27.0-33.0 [facility] Comment on above: Performed By: #### G FR, ANEU, CBC, LD, CMP, ADIFF #### [place] [address] MCHC 33.1 G/dL Normal 32.0-36.0 [facility] Comment on above: Performed By: #### G FR, ANEU, CBC, LD, CMP, ADIFF #### [place] [address] MCV (RBC) [Entitic vol] 74.4 fL Low 80.0-99.0 [facility] Comment on above: Performed By: #### G FR, ANEU, CBC, LD, CMP, ADIFF #### [place] [address] Platelet 120 10 3/mcL Low 150-450 [facility] Comment on above: Performed By: #### G FR, ANEU, CBC, LD, CMP, ADIFF #### [place] [address] Platelet mean volume (Bld) [Entitic vol] 10.9 fL High 6.6-10.5 [facility] Comment on above: Performed By: #### G FR, ANEU, CBC, LD, CMP, ADIFF #### [place] [address] RBC 4.22 10 6/mcL Normal 4.10-5.30 [facility] Comment on above: Performed By: #### G FR, ANEU, CBC, LD, CMP, ADIFF #### [place] [address] WBC 11.1 10 3/mcL High 4.5-10.8 [facility] Comment on above: Performed By: #### G FR, ANEU, CBC, LD, CMP, ADIFF #### [place] [address] CMPon 12-23-2023 Albumin Level 2.3 G/dL Low 3.2-4.8 [facility] Comment on above: Performed By: #### G FR, ANEU, CBC, LD, CMP, ADIFF #### [place] [address] Albumin/Globulin [Mass ratio] 0.6 {ratio} Low 0.9-1.6 [facility] Comment on above: Performed By: #### G FR, ANEU, CBC, LD, CMP, ADIFF #### [place] [address] ALP [Catalytic activity/Vol] 192 U/L High 38-126 [facility] Comment on above: Performed By: #### G FR, ANEU, CBC, LD, CMP, ADIFF #### [place] [address] ALT [Catalytic activity/Vol] 24 U/L Normal 10-49 [facility] Comment on above: Performed By: #### G FR, ANEU, CBC, LD, CMP, ADIFF #### [place] [address] AST [Catalytic activity/Vol] 17 U/L Normal 8-34 [facility] Comment on above: Performed By: #### G FR, ANEU, CBC, LD, CMP, ADIFF #### [place] [address] Bili Total 0.50 mg/dL Normal 0.20-1.20 [facility] Comment on above: Result Comment: Use of this assay is not recommended for patients undergoing treatment with eltrombopag due to the potential for falsely elevated results. Performed By: #### G FR, ANEU, CBC, LD, CMP, ADIFF #### [place] [id number] BUN/Creatinine Ratio 11.8 ratio Normal 10.0-22.0 [facility] Comment on above: Performed By: #### G FR, ANEU, CBC, LD, CMP, ADIFF #### [address] [address] Calcium [Mass/Vol] 8.8 mg/dL Normal 8.7-10.4 [facility] Comment on above: Performed By: #### G FR, ANEU, CBC, LD, CMP, ADIFF #### [place] [phone] Chloride [Moles/Vol] 107 mmol/L Normal 98-110 [facility] Comment on above: Performed By: #### G FR, ANEU, CBC, LD, CMP, ADIFF #### [address] [address] CO2 [Moles/Vol] 24 mmol/L Normal 22-32 [facility] Comment on above: Performed By: #### G FR, ANEU, CBC, LD, CMP, ADIFF #### [address] [address] Creatinine [Mass/Vol] 0.51 mg/dL Normal 0.50-1.20 [facility] Comment on above: Result Comment: Test ing performed on Theravance analyzer using enzymatic creatinine methodology. Performed By: #### G FR, ANEU, CBC, LD, CMP, ADIFF #### [place] [phone] Electrolyte Balance 8.0 mEq/L Normal 4.0-15.0 [facility] Comment on above: Performed By: #### G FR, ANEU, CBC, LD, CMP, ADIFF #### [address] [address] Globulin 3.9 G/dL High 1.5-3.8 [facility] Comment on above: Performed By: #### G FR, ANEU, CBC, LD, CMP, ADIFF #### [address] [address] Glucose [Mass/Vol] 91 mg/dL Normal 70-110 [facility] Comment on above: Performed By: #### G FR, ANEU, CBC, LD, CMP, ADIFF #### [address] [address] Potassium [Moles/Vol] 3.9 mmol/L Normal 3.5-5.0 [facility] Comment on above: Performed By: #### G FR, ANEU, CBC, LD, CMP, ADIFF #### [address] [address] Sodium [Moles/Vol] 139 mmol/L Normal 136-145 [facility] Comment on above: Performed By: #### G FR, ANEU, CBC, LD, CMP, ADIFF #### [address] [address] Total Protein 6.2 G/dL Normal 5.7-8.2 [facility] Comment on above: Performed By: #### G FR, ANEU, CBC, LD, CMP, ADIFF #### [address] [address] Urea nitrogen [Mass/Vol] 6.0 mg/dL Low 8.0-22.0 [facility] Comment on above: Performed By: #### G FR, ANEU, CBC, LD, CMP, ADIFF #### [address] [address] LABORATORYOrdered By: Leif Manuel on 12-23-2023 Appearance (U) Clear (12/23/23 12:48 PM) Normal Clear AH Auto Urine SS Bilirubin Ql (U) Negative (12/23/23 12:48 PM) Normal Neg-Trace Auto Urine SS Color (U) Yellow (12/23/23 12:48 PM) Normal AH Auto Urine SS Glucose Test strip (U) [Mass/Vol] Negative Normal Negative AH Auto Urine SS Hemoglobin Auto test strip (U) [Mass/Vol] Negative (12/23/23 12:48 PM) Normal Neg-Trace AH Auto Urine SS Ketones Ql (U) Negative Normal Neg-Trace AH Auto Urine SS UA Leuk Est Negative (12/23/23 12:48 PM) Normal Negative AH Auto Urine SS UA Nitrite Negative (12/23/23 12:48 PM) Normal Negative AH Auto Urine SS UA pH 6.5 (12/23/23 12:48 PM) Normal 5.0 - 8.0 AH Auto Urine SS UA Protein Negative Normal Negative AH Auto Urine SS UA Spec Grav 1.015 (12/23/23 12:48 PM) Normal 1.006-1.029 AH Auto Urine SS UA Specimen Type Void (12/23/23 12:48 PM) Normal AH Auto Urine SS UA Urobilinogen 1.0 E.U./dL Normal 0.2-1.0 AH Auto Urine SS LABORATORYOrdered By: Sixto Rodriguez on 12-23-2023 Creatinine (U) [Mass/Vol] 112.1 mg/dL Invalid Interpretation Code AH ADM SS Protein (U) [Mass/Vol] 20.7 mg/dL Invalid Interpretation Code AH ADM SS U Ratio Prot/Creat 0.2 ratio Invalid Interpretation Code AH ADM SS Comment on above: Result Comment: Unab le to calculate this test result accurately. Results used to calculate this test are outside the reportable range. LABORATORYOrdered By: SYSTEM SYSTEM on 12-23-2023 Albumin BCP dye [Mass/Vol] 2.3 G/dL Low 3.2 - 4.8 G/dL AH ADM SS Albumin/Globulin [Mass ratio] 0.6 {ratio} Low 0.9 - 1.6 ratio AH ADM SS ALP [Catalytic activity/Vol] 192 U/L High 38 - 126 U/L AH ADM SS ALT No additional P-5'-P [Catalytic activity/Vol] 24 U/L Normal 10 - 49 U/L AH ADM SS AST [Catalytic activity/Vol] 17 U/L Normal 8 - 34 U/L AH ADM SS Basophils (Bld) [#/Vol] 0.1 103/mcL Normal 0.0 [...] 11 0 mEq/L ADM SS CO2 [Moles/Vol] 24 mmol/L Normal 22 - 32 mEq/L ADM SS Creatinine [Mass/Vol] 0.51 mg/dL Normal 0.50 - 1.20 mg/dL ADM Comment on above: Interpretive Data: T esting performed on Theravance analyzer using enzymatic creatinine methodology. Electrolyte Balance 8.0 mEq/L Normal 4.0 - 15 .0 mEq/L ADM SS Eosinophils (Bld) [#/Vol] 0.1 103/mcL Normal 0.0 - 0.7 10^3/mcL Workflow SS Eosinophils/100 WBC (Bld) 0.5 % Normal 0.0 - 6.0 % Workflow SS Erythrocyte distribution width (RBC) [Ratio] 14.8 % Normal 11.5 - 15.5 % Workflow [...] 3.9 G/dL High 1.5 - 3.8 G/dL ADM SS Glucose [Mass/Vol] 91 mg/dL Normal 70 - 110 mg/dL ADM SS Hematocrit (Bld) [Volume fraction] 31.4 % Low 34.0 - 46.0 % Workflow SS Hemoglobin (Bld) [Mass/Vol] 10.4 G/dL Low 12.0 - 16.0 G/dL Workflow SS LDH Lactate to pyruvate reaction [Catalytic activity/Vol] 196 1 Normal 120 - 246 U/L ADM SS Lymphocytes (Bld) [#/Vol] 2.1 103/mcL Normal 0.9 - 4.3 10^3/mcL AH Workflow SS Lymphocytes/100 WBC (Bld) 18.7 % Low 20.0 - 40.0 % Workflow SS MCH (RBC) [Entitic mass] 24.6 pg Low 27.0 - 33.0 pg AH Workflow SS MCHC 33.1 G/dL Normal 32.0 - 36.0 G/dL Workflow SS MCV (RBC) [Entitic vol] 74.4 fL Low 80.0 - 99.0 fL Workflow SS Monocytes (Bld) [#/Vol] 0.7 103/mcL Normal 0.1 - 1.4 10^3/mcL AH Workflow SS Monocytes/100 WBC (Bld) 6.0 % Normal 2.0 - 13.0 % Workflow SS Neutrophils (Bld) [#/Vol] 8.2 103/mcL High 2.3 - 8.1 10^3/mcL AH Workflow SS Neutrophils/100 WBC (Bld) 74.1 % Normal 50.0 - 75.0 % Workflow SS Platelet mean volume (Bld) [Entitic vol] 10.9 fL High 6.6 - 10.5 fL AH Workflow SS Platelets (Bld) [#/Vol] 120 103/mcL Low 150 - 450 10^3/mcL AH Workflow SS Potassium [Moles/Vol] 3.9 mmol/L Normal 3.5 - 5.0 mEq/L ADM SS Protein [Mass/Vol] 6.2 G/dL Normal 5.7 - 8.2 G/dL ADM SS RBC (Bld) [#/Vol] 4.22 106/mcL Normal 4.10 - 5.3 0 10^6/mcL AH Workflow SS Sodium [Moles/Vol] 139 mmol/L Normal 136 - 145 mEq/L ADM SS Urea nitrogen [Mass/Vol] 6.0 mg/dL Low 8.0 - 22.0 mg/dL ADM SS Urea nitrogen/Creatinine [Mass ratio] 11.8 ratio Normal 10.0 - 22.0 ratio ADM SS WBC (Bld) [#/Vol] 11.1 103/mcL High 4.5 - 10.8 10^3/mcL Workflow SS LDHon 12-23-2023 LDH 196 U/L Normal 120-246 [facility] Comment on above: Performed By: #### G FR, ANEU, CBC, LD, CMP, ADIFF #### [address] [address] RPCURon 12-23-2023 U Creatinine 112.1 mg/dL Normal [facility] Comment on above: Performed By: #### G FR, ANEU, CBC, LD, CMP, ADIFF #### [address] [address] U Protein 20.7 mg/dL Normal [facility] Comment on above: Performed By: #### G FR, ANEU, CBC, LD, CMP, ADIFF #### [address] [address] U Ratio Prot/Creat 0.2 ratio Normal [facility] Comment on above: Result Comment: Unab le to calculate this test result accurately. Results used to calculate this test are outside the reportable range. result calculated by rule GL_UR_PROT_NOTCALC_OLD (U Protein/U Creatinine) Performed By: #### G FR, ANEU, CBC, LD, CMP, ADIFF #### [place] [address] UAon 12-23-2023 Color (U) Yellow Normal [facility] Comment on above: Performed By: #### G FR, ANEU, CBC, LD, CMP, ADIFF #### [place] [address] Glucose (U) [Mass/Vol] Negative Normal Negative [facility] Comment on above: Performed By: #### G FR, ANEU, CBC, LD, CMP, ADIFF #### [place] [address] Ketones Ql (U) Negative Normal Neg-Trace [facility] Comment on above: Performed By: #### G FR, ANEU, CBC, LD, CMP, ADIFF #### [place] [address] UA Appear Clear Normal Clear [facility] Comment on above: Performed By: #### G FR, ANEU, CBC, LD, CMP, ADIFF #### [place] [address] UA Blood Negative Normal Neg-Trace [facility] Comment on above: Performed By: #### G FR, ANEU, CBC, LD, CMP, ADIFF #### [place] [address] UA Leuk Est Negative Normal Negative [facility] Comment on above: Performed By: #### G FR, ANEU, CBC, LD, CMP, ADIFF #### [place] [address] UA Nitrite Negative Normal Negative [facility] Comment on above: Performed By: #### G FR, ANEU, CBC, LD, CMP, ADIFF #### [place] [address] UA pH 6.5 Normal 5.0 - 8.0 [facility] Comment on above: Performed By: #### G FR, ANEU, CBC, LD, CMP, ADIFF #### [place] [id number] UA Protein Negative Normal Negative [facility] Comment on above: Performed By: #### G FR, ANEU, CBC, LD, CMP, ADIFF #### [address] [address] UA Spec Grav 1.015 Normal 1.006-1.029 [facility] Comment on above: Performed By: #### G FR, ANEU, CBC, LD, CMP, ADIFF #### [place] [address] UA Specimen Type Void Normal [facility] Comment on above: Performed By: #### G FR, ANEU, CBC, LD, CMP, ADIFF #### [place] [address] UA Urobilinogen 1.0 E.U./dL Normal 0.2-1.0 [facility] Comment on above: Performed By: #### G FR, ANEU, CBC, LD, CMP, ADIFF #### [place] [address] Urobilinogen (U) [Mass/Vol] Negative Normal Neg-Trace [facility] Comment on above: Performed By: #### G FR, ANEU, CBC, LD, CMP, ADIFF #### [place] [address] BILEon 12-19-2023 Chenodeoxycholate 0.90 umol/l [facility] Comment on above: Result Comment: Refe rence Range: All Ages: <5.8 Performed By: #### G FR, ANEU, CBC, LD, CMP, ADIFF #### [place] [address] Cholate 0.50 umol/l [facility] Comment on above: Result Comment: Refe rence Range: All Ages: <2.2 Performed By: #### G FR, ANEU, CBC, LD, CMP, ADIFF #### [place] [id number] Deoxycholate 0.70 umol/l [facility] Comment on above: Result Comment: Refe rence Range: All Ages: <3.3 Performed By: #### G FR, ANEU, CBC, LD, CMP, ADIFF #### [facility] [address] [place] [id number] Total Bile Acids 2.1 umol/l Normal [facility] Comment on above: Result Comment: This test was developed and its performance characteristics determined by [facility]. It has not been cleared or approved by the Food and Drug Administration. 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 She denies any complaints today. Her blood glucose record was reviewed. Her insulin changed. New dosing NPH 24/26u @ HS History of Presenting Problem: She is unaccompanied. Lester denies any cramping, contractions, vaginal bleeding, unusual or increase in vaginal discharge, signs and symptoms of pre-eclampsia, or leaking of any fluid. Patient with positive movement. Gestational Diabetes Lester presents today for her comanage visit. She has GDMA2 diabetes. The disease course is fluctuating. Her symptom course is compliant. Pertinent negative hyper/hypoglycemia symptoms include none. Current treatments include insulin injections and diet. She is compliant with treatment most of the time. Blood glucose readings reviewed. Readings are as follows: Reviewed BS log from 12/09-12/16/2023. TIR 87% 13% high and )% low. AVG BS 123. Fasting's 90-100s. Pt had nutrition on 12/06/23. Slight elevations with meals. New dosing NPH 24u/26u.. Lester has had a prior visit with the electrician master (12/06/2023). Past Medical History: Past Medical History: Diagnosis [...] Gestational diabetes mellitus (GDM) Migraine headache Obesity Recurrent UTI (urinary tract infection) complicating , third trimester 11/30/2023 Past Surgical History: Procedure Laterality Date SECTION, LOW TRANSVERSE x5 Medications: Outpatient Encounter Medications as of 12/16/2023 Medication Sig Dispense Refill cephALEXin (KEFLEX) 500 MG capsule Take 1 Capsule (500 mg) by mouth nightly at bedtime for 30 days 30 Capsule 2 Insulin NPH, Human,, Isophane, 100 UNIT/ML SUPN Inject 40-80 units SQ daily as directed. 24 mL 5 Insulin Pen Needle (BD PEN NEEDLE GREG U/F) 32G X 4 MM [facility] [place] to test/inject 4-7 times daily. 200 Each 5 Continuous Glucose Sensor (DEXCOM G7 SENSOR) [facility] Provide 3 pack of sensors (30 day supply) [facility] [id number] 3 Each 6 RA ALCOHOL SWABS 70 % PADS Blood Glucose Monitoring Suppl (ONE TOUCH ULTRA 2) w/Device KIT use as directed to CHECK BLOOD SUGAR four times a day FREESTYLE PRECISION DANAY TEST test strip FREESTYLE LANCETS [facility] Vit w/Ma-Xlmegcjpz-NB (PNV PO) Take 1 Tablet by mouth daily Insulin Syringe-Needle U-100 31G X 5/16 1 ML [facility] Use as directed (Patient not taking: Reported on 11/30/2023) 40 Each 3 No facility-administered encounter medications on file as of 12/16/2023. Allergies: No Known Allergies Family Medical History: [...] Not Currently Drug use: Never Physical Exam: Assessment/Plan: Lester Infante is a 23 y.o. at 31w3d with: Active Non-Hospital Problems Diagnosis Date Noted Supervision of high risk in third trimester 01/17/2023 Priority: High PLAN OF CARE- Co-Manage of Seals- FLAVIO to [facility] 12/08/23 (complete) MD/OB APPOINTMENTS Genetic screening: How often should patient be evaluated? Monthly to 28 weeks, q 2 weeks from 28 to 36 weeks then weekly until delivery. Work restrictions: NA EVALUATION surveillance: Twice weekly testing @ 32wks Ultrasound: Growth every 4 week DELIVERY PLAN Hospital: [facility] Repeat C/S: GBS culture: per OB Contraception: tubal ligation : Breast and bottle Ped: [facility] Name of baby: Boy-undecided Vaccinations: rec COVID- declined, Flu- declined and 3rd trimester TDAP- undecided Reviewed on 12/09/2023 Insulin controlled gestational diabetes mellitus (GDM) in third trimester 01/14/2023 Priority: High 12/01/2023 Pt did not start insulin last night. I reviewed her BS today. Fasting 136-157. 1 hr PP breakfast 161-191, lunch 123-189, and dinner 140-188. Will start on NPH 20u/20u@ HS. Will schedule nutrition appt. Pt has follow up scheduled for 12/05/2023. 12/16/2023 Reviewed BS log from 12/09-12/16/2023. TIR 87% 13% high and )% low. AVG BS 123. Fasting's 90-100s. Pt had nutrition on 12/06/23. (more content not included)... 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 I called her on the phone for the visit. Lester Infante is seen at 30w3d for comanagement of Gestational Diabetes Mellitus and Obesity. She denies any complaints today. Her blood glucose record was reviewed. Her insulin changed.New dose History of Presenting Problem: She is unaccompanied. Lester denies any cramping, contractions, vaginal bleeding, unusual or increase in vaginal discharge, signs and symptoms of pre-eclampsia, or leaking of any fluid. Patient with positive movement. Gestational Diabetes Lester presents today for her comanage visit. She has GDMA2 diabetes. The disease course is improving. Her symptom course is compliant. Pertinent negative hyper/hypoglycemia symptoms include none. Current treatments include insulin injections and diet. She is compliant with treatment most of the time. Blood glucose readings reviewed. Readings are as follows: Reviewed BS log from 12/02-. TIR 93% 7% high and <1% very low. AVG BS 109. Fasting's 90-100s. Pt had nutrition on 12/06/23. Significant improvement in glucose control from previous visit. New dosing NPH 20u/22u.. Past Medical History: Past Medical History: Diagnosis [...] Gestational diabetes mellitus (GDM) Migraine headache Obesity Recurrent UTI (urinary tract infection) complicating , third trimester 11/30/2023 Past Surgical History: Procedure Laterality Date SECTION, LOW TRANSVERSE x5 Medications: Outpatient Encounter Medications as of 12/09/2023 Medication Sig Dispense Refill cephALEXin (KEFLEX) 500 MG capsule Take 1 Capsule (500 mg) by mouth nightly at bedtime for 30 days 30 Capsule 2 Insulin NPH, Human,, Isophane, 100 UNIT/ML SUPN Inject 40-80 units SQ daily as directed. 24 mL 5 Insulin Pen Needle (BD PEN NEEDLE GREG U/F) 32G X 4 MM [facility] Patient to test/inject 4-7 times daily. 200 Each 5 Continuous Glucose Sensor (DEXCOM G7 SENSOR) [facility] Provide 3 pack of sensors (30 day supply) [facility] [id number] 3 Each 6 [DISCONTINUED] BUTALBITAL-ACETAMINOPHEN PO Take 1 Capsule by mouth 4 times daily as needed [DISCONTINUED] cephALEXin (KEFLEX) 500 MG capsule Take 1 Capsule (500 mg) by mouth nightly at bedtime for 30 days 2 Capsule 0 RA ALCOHOL SWABS 70 % PADS Blood Glucose Monitoring Suppl (ONE TOUCH ULTRA 2) w/Device KIT use as directed to CHECK BLOOD SUGAR four times a day FREESTYLE PRECISION DANAY TEST test strip FREESTYLE LANCETS MISC Vit w/Fi-Hxyuwcfwh-JK (PNV PO) Take 1 Tablet by mouth daily Insulin Syringe-Needle U-100 31G X 5/16 1 ML MISC Use as directed (Patient not taking: Reported on 11/30/2023) 40 Each 3 No facility-administered encounter medications on file as of 12/09/2023. Allergies: No Known Allergies Family Medical History: [...] Not Currently Drug use: Never Physical Exam: Assessment/Plan: Lester Infante is a 23 y.o. at 30w3d with: Active Non-Hospital Problems Diagnosis Date Noted Supervision of high risk in third trimester 01/17/2023 Priority: High PLAN OF CARE- Co-Manage of Seals- FLAVIO to [facility] 12/08/23 (complete) MD/OB APPOINTMENTS Genetic screening: How often should patient be evaluated? Monthly to 28 weeks, q 2 weeks from 28 to 36 weeks then weekly until delivery. Work restrictions: NA EVALUATION surveillance: Twice weekly testing @ 32wks Ultrasound: Growth every 4 week DELIVERY PLAN Hospital: [facility] Repeat C/S: GBS culture: per OB Contraception: tubal ligation : Breast and bottle Ped: [facility] Name of baby: Boy-undecided Vaccinations: rec COVID- declined, Flu- declined and 3rd trimester TDAP- undecided Reviewed on 12/09/2023 Insulin controlled gestational diabetes mellitus (GDM) in third trimester 01/14/2023 Priority: High 12/01/2023 Pt did not start insulin last night. I reviewed her BS today. Fasting 136-157. 1 hr PP breakfast 161 (more content not included)... [facility] Reagin Ab RPR Ql (S) Non-Reactive Normal Non-Reactive [facility] Comment on above: Result Comment: The RPR [...] 4) other conditions with abnormal serum globulins. Performed By: #### G FR, ANEU, CBC, LD, CMP, ADIFF #### [facility] [address] [place] [address] Rule out Beta Strep (Grp. B) on 12-09-2023 KATELIN Group B Beta Streptococcus is not isolated. Normal [facility] Comment on above: Performed By: #### L 500.3400, L501.2450, L100.0100, L700.8000, L500.2500 #### [facility] [address] [place], [address] .Auto Diffon 12-08-2023 Basophil, Absolute 0.0 10 3/mcL Normal 0.0-0.3 [facility] Comment on above: Performed By: #### A WAYNE, CBC, GFR, [id number], ADIFF, CMP, RPR #### [place] [address] [place] [address] Basophils/100 WBC (Bld) 0.5 % Normal 0.0-2.5 [facility] Comment on above: Performed By: #### A WAYNE, CBC, GFR, 484450, ADIFF, CMP, RPR #### [facility] [address] [place] [address] Eosinophil, Absolute 0.0 10 3/mcL Normal 0.0-0.7 [facility] Comment on above: Performed By: #### A WAYNE, CBC, GFR, 676082, ADIFF, CMP, RPR #### [facility] [address] [place] [address] Eosinophils/100 WBC (Bld) 0.1 % Normal 0.0-6.0 [facility] Comment on above: Performed By: #### A WAYNE, CBC, GFR, 386284, ADIFF, CMP, RPR #### [address] [address] Lymphocyte, Absolute 1.9 10 3/mcL Normal 0.9-4.3 [facility] Comment on above: Performed By: #### A WAYNE, CBC, GFR, 583448, ADIFF, CMP, RPR #### [address] [address] Lymphocytes/100 WBC (Bld) 19.8 % Low 20.0-40.0 [facility] Comment on above: Performed By: #### A WAYNE, CBC, GFR, 648742, ADIFF, CMP, RPR #### [address] [address] Monocyte, Absolute 0.6 10 3/mcL Normal 0.1-1.4 [facility] Comment on above: Performed By: #### A WAYNE, CBC, GFR, 592326, ADIFF, CMP, RPR #### [address] [address] Monocytes/100 WBC (Bld) 6.8 % Normal 2.0-13.0 [facility] Comment on above: Performed By: #### A WAYNE, CBC, GFR, 793176, ADIFF, CMP, RPR #### [address] [address] Neutrophils/100 WBC (Bld) 72.8 % Normal 50.0-75.0 [facility] Comment on above: Performed By: #### A WAYNE, CBC, GFR, 834374, ADIFF, CMP, RPR #### [address] [address] .GFRon 12-08-2023 GFR >60 Normal [facility] Comment on above: Result Comment: GFR Population [...] 15 mL/min/1.73 square meters Performed By: #### G FR, ANEU, CBC, LD, CMP, ADIFF #### [place] [address] GFR Non- >60 Normal [facility] Comment on above: Result Comment: GFR Population [...] 15 mL/min/1.73 square meters Performed By: #### G FR, ANEU, CBC, LD, CMP, ADIFF #### [place] [address] .NEUABSon 12-08-2023 Neutrophil, Absolute 6.9 10 3/mcL Normal 2.3-8.1 [facility] Comment on above: Performed By: #### A WAYNE, CBC, GFR, 551461, ADIFF, CMP, RPR #### [place] [address] CBCon 12-08-2023 Erythrocyte distribution width (RBC) [Ratio] 15.2 % Normal 11.5-15.5 [facility] Comment on above: Performed By: #### A WAYNE, CBC, GFR, 046622, ADIFF, CMP, RPR #### [place] [address] Hematocrit (Bld) [Volume fraction] 33.7 % Low 34.0-46.0 [facility] Comment on above: Performed By: #### A WAYNE, CBC, GFR, 969519, ADIFF, CMP, RPR #### [place] [address] Hgb 10.8 G/dL Low 12.0-16.0 [facility] Comment on above: Performed By: #### A WAYNE, CBC, GFR, 702804, ADIFF, CMP, RPR #### [place] [address] MCH (RBC) [Entitic mass] 24.5 pg Low 27.0-33.0 [facility] Comment on above: Performed By: #### A WAYNE, CBC, GFR, 262383, ADIFF, CMP, RPR #### [place] [address] MCHC 32.1 G/dL Normal 32.0-36.0 [facility] Comment on above: Performed By: #### A WAYNE, CBC, GFR, 036599, ADIFF, CMP, RPR #### [place] [address] MCV (RBC) [Entitic vol] 76.2 fL Low 80.0-99.0 [facility] Comment on above: Performed By: #### A WAYNE, CBC, GFR, 777350, ADIFF, CMP, RPR #### [place] [address] Platelet 151 10 3/mcL Normal 150-450 [facility] Comment on above: Performed By: #### A WAYNE, CBC, GFR, 464419, ADIFF, CMP, RPR #### [place] [address] Platelet mean volume (Bld) [Entitic vol] 11.1 fL High 6.6-10.5 [facility] Comment on above: Performed By: #### A WAYNE, CBC, GFR, 602163, ADIFF, CMP, RPR #### [place] [address] RBC 4.42 10 6/mcL Normal 4.10-5.30 [facility] Comment on above: Performed By: #### A WAYNE, CBC, GFR, 877146, ADIFF, CMP, RPR #### [place] [address] [place] [address] WBC 9.5 10 3/mcL Normal 4.5-10.8 [facility] Comment on above: Performed By: #### A WAYNE, CBC, GFR, 339796, ADIFF, CMP, RPR #### [address] [address] CMPon 12-08-2023 Albumin Level 2.4 G/dL Low 3.2-4.8 [facility] Comment on above: Performed By: #### A WAYNE, CBC, GFR, 427281, ADIFF, CMP, RPR #### [place] [id number] Albumin/Globulin [Mass ratio] 0.6 {ratio} Low 0.9-1.6 [facility] Comment on above: Performed By: #### A WAYNE, CBC, GFR, 821471, ADIFF, CMP, RPR #### [address] [address] ALP [Catalytic activity/Vol] 167 U/L High 38-126 [facility] Comment on above: Performed By: #### A WAYNE, CBC, GFR, 442499, ADIFF, CMP, RPR #### [address] [address] ALT [Catalytic activity/Vol] 21 U/L Normal 10-49 [facility] Comment on above: Performed By: #### A WAYNE, CBC, GFR, 226123, ADIFF, CMP, RPR #### [address] [address] AST [Catalytic activity/Vol] 14 U/L Normal 8-34 [facility] Comment on above: Performed By: #### A WAYNE, CBC, GFR, 189662, ADIFF, CMP, RPR #### [place] [address] Bili Total 0.50 mg/dL Normal 0.20-1.20 [facility] Comment on above: Result Comment: Use of this assay is not recommended for patients undergoing treatment with eltrombopag due to the potential for falsely elevated results. Performed By: #### A WAYNE, CBC, GFR, 292363, ADIFF, CMP, RPR #### [place] [address] BUN/Creatinine Ratio 9.4 ratio Low 10.0-22.0 [facility] Comment on above: Performed By: #### A WAYNE, CBC, GFR, 245820, ADIFF, CMP, RPR #### [place] [phone] Calcium [Mass/Vol] 8.9 mg/dL Normal 8.7-10.4 [facility] Comment on above: Performed By: #### A WAYNE, CBC, GFR, 156551, ADIFF, CMP, RPR #### [place] [address] Chloride [Moles/Vol] 107 mmol/L Normal 98-110 [facility] Comment on above: Performed By: #### A WAYNE, CBC, GFR, 418495, ADIFF, CMP, RPR #### [place] [phone] CO2 [Moles/Vol] 25 mmol/L Normal 22-32 [facility] Comment on above: Performed By: #### A WAYNE, CBC, GFR, 071275, ADIFF, CMP, RPR #### [place] [phone] Creatinine [Mass/Vol] 0.53 mg/dL Normal 0.50-1.20 [facility] Comment on above: Result Comment: Test ing performed on Theravance analyzer using enzymatic creatinine methodology. Performed By: #### A WAYNE, CBC, GFR, 468239, ADIFF, CMP, RPR #### [place] [address] Electrolyte Balance 6.0 mEq/L Normal 4.0-15.0 [facility] Comment on above: Performed By: #### A WAYNE, CBC, GFR, 309692, ADIFF, CMP, RPR #### [address] [address] Globulin 3.9 G/dL High 1.5-3.8 [facility] Comment on above: Performed By: #### A WAYNE, CBC, GFR, 798779, ADIFF, CMP, RPR #### [address] [address] Glucose [Mass/Vol] 95 mg/dL Normal 70-110 [facility] Comment on above: Performed By: #### A WAYNE, CBC, GFR, 256536, ADIFF, CMP, RPR #### [address] [address] Potassium [Moles/Vol] 4.0 mmol/L Normal 3.5-5.0 [facility] Comment on above: Performed By: #### A WAYNE, CBC, GFR, 191035, ADIFF, CMP, RPR #### [address] [address] Sodium [Moles/Vol] 138 mmol/L Normal 136-145 [facility] Comment on above: Performed By: #### A WAYNE, CBC, GFR, 471035, ADIFF, CMP, RPR #### [address] [address] Total Protein 6.3 G/dL Normal 5.7-8.2 [facility] Comment on above: Performed By: #### A WAYNE, CBC, GFR, 654597, ADIFF, CMP, RPR #### [address] [address] Urea nitrogen [Mass/Vol] 5.0 mg/dL Low 8.0-22.0 [facility] Comment on above: Performed By: #### A WAYNE, CBC, GFR, 567915, ADIFF, CMP, RPR #### [address] [address] Urine Cultureon 12-08-2023 [facility] Mixed Gram Pos Gram Neg Org [place] Count 80,000-100,000 [facility]IX[facility] Mixed contaminants. Submit a new specimen if indicated. Normal [facility] Comment on above: Performed By: #### L 500.3400, L501.2450, L100.0100, L700.8000, L500.2500 #### [facility] [address] [place], [address] CBC W/Diff, Automatedon 10-2 3-2023 Absolute Lymph 2.23 X10 3/uL Normal 0.83-4.51 [facility] Comment on above: Performed By: #### L 500.3400, L501.2450, L100.0100, L700.8000, L500.2500 #### [facility] [address] [place], [address] Absolute Neut 9.0 X10 3/uL High 2.0-7.7 [facility] Comment on above: Performed By: #### L 500.3400, L501.2450, L100.0100, L700.8000, L500.2500 #### [facility] [address] [place], [address] Basophils/100 WBC (Bld) 0.3 % Normal 0-1 [facility] Comment on above: Performed By: #### L 500.3400, L501.2450, L100.0100, L700.8000, L500.2500 #### [facility] [address] [place], [address] Eosinophils/100 WBC (Bld) 0.1 % Normal 0-5 [facility] Comment on above: Performed By: #### L 500.3400, L501.2450, L100.0100, L700.8000, L500.2500 #### [facility] [address] [place], [address] Erythrocyte distribution width (RBC) [Ratio] 14.6 % Normal 11.6-14.6 [facility] Comment on above: Performed By: #### L 500.3400, L501.2450, L100.0100, L700.8000, L500.2500 #### [facility] [address] [place], [address] Hematocrit (Bld) [Volume fraction] 33.0 % Low 37-47 [facility] Comment on above: Performed By: #### L 500.3400, L501.2450, L100.0100, L700.8000, L500.2500 #### [facility] [address] [place], [address] Hemoglobin (Bld) [Mass/Vol] 10.5 g/dL Low 12.0-15.0 [facility] Comment on above: Performed By: #### L 500.3400, L501.2450, L100.0100, L700.8000, L500.2500 #### [facility] [address] [place], [address] IG% 0.400 Normal 0.0-0.9 [facility] Comment on above: Result Comment: IG% - Immature Granulocytes (promyelocytes, myelocytes and metamyelocytes) > 1% indicates that a LEFT SHIFT is Present. Performed By: #### L 500.3400, L501.2450, L100.0100, L700.8000, L500.2500 #### [facility] [address] [place], [address] Lymphocytes/100 WBC (Bld) 18.4 % Low 19-41 [facility] Comment on above: Performed By: #### L 500.3400, L501.2450, L100.0100, L700.8000, L500.2500 #### [facility] [address] [place], [address] MCH (RBC) [Entitic mass] 24.8 pg Low 27.0-32.0 [facility] Comment on above: Performed By: #### L 500.3400, L501.2450, L100.0100, L700.8000, L500.2500 #### [facility] [address] [place], [address] MCHC (RBC) [Mass/Vol] 31.8 g/dL Low 32-[address] [facility] Comment on above: Performed By: #### L 500.3400, L501.2450, L100.0100, L700.8000, L500.2500 #### [facility] [address] [place], [address] MCV (RBC) [Entitic vol] 77.8 fL Low 81-99 [facility] Comment on above: Performed By: #### L 500.3400, L501.2450, L100.0100, L700.8000, L500.2500 #### [facility] [address] [place], [address] Monocytes/100 WBC (Bld) 6.5 % Normal 0-10 [facility] Comment on above: Performed By: #### L 500.3400, L501.2450, L100.0100, L700.8000, L500.2500 #### [facility] [address] [place], [address] Neutrophils/100 WBC (Bld) 74.3 % High 47-70 [facility] Comment on above: Performed By: #### L 500.3400, L501.2450, L100.0100, L700.8000, L500.2500 #### [facility] [address] [place], [address] Nucleated RBC (Bld) [#/Vol] 0 10*3/uL Normal 0-5 [facility] Comment on above: Performed By: #### L 500.3400, L501.2450, L100.0100, L700.8000, L500.2500 #### [facility] [address] [place], [address] Platelet mean volume (Bld) [Entitic vol] 12.0 fL Normal 6.2-12.0 [facility] Comment on above: Performed By: #### L 500.3400, L501.2450, L100.0100, L700.8000, L500.2500 #### [facility] [address] [place], [address] Platelets (Bld) [#/Vol] 161 10*3/uL Normal 150-450 [facility] Comment on above: Performed By: #### L 500.3400, L501.2450, L100.0100, L700.8000, L500.2500 #### [facility] [address] [place], [address] RBC (Bld) [#/Vol] 4.24 10*6/uL Normal 4.2-5.4 [facility] Comment on above: Performed By: #### L 500.3400, L501.2450, L100.0100, L700.8000, L500.2500 #### [facility] [address] [place], [address] RDW SD 41.2 fl Normal 35.1-43.9 [facility] Comment on above: Performed By: #### L 500.3400, L501.2450, L100.0100, L700.8000, L500.2500 #### [facility] [address] [place], [address] WBC (Bld) [#/Vol] 12.1 10*3/uL High 4.4-11.0 [facility] Comment on above: Performed By: #### L 500.3400, L501.2450, L100.0100, L700.8000, L500.2500 #### [facility] [address] [place], [address] Fibronectinon 12-07-19 24 fFIBRONECTIN Negative Normal [facility] Comment on above: Performed By: #### L 500.3400, L501.2450, L100.0100, L700.8000, L500.2500 #### [facility] [address] [place], [address] Group B Strep DNA By PCRon 1 GBS DNA ASSAY Negative Normal Negative [facility] Comment on above: Performed By: #### L 500.3400, L501.2450, L100.0100, L700.8000, L500.2500 #### [facility] [address] [place], [address] OB Triage Physician Noteon 1 OB Triage Physician Note [facility] Medical Records Department [address] [facility] [place] [address] OB Triage Physician Note 12/07/23 0955 MR#: [id number] Acct: [id number] Name: LESTER INFANTE Rep #: [id number] : 2000 23 From: Tian Gomez MD PCP: Care Physician,No Primary Status:REG CLI Y Location: [address] HPI - General General Date of Admission: 12/07/23 Date of Service: 12/07/23 Chief Complaint: Contractions HPI Narrative LESTER INFANTE, is a 23 F 6 para 5 who presents to labor and delivery with some contractions at 30+ weeks gestation. Her care is complicated by 5 prior sections, gestational diabetic on NPH insulin twice daily, and a history of labor with her fourth (all babies delivered at term). She has also had multiple urinary tract infections with her most recent being about 3 to 4 weeks ago and maternal- medicine has placed her on daily Keflex for prophylaxis. She was seen by Dr. Singh in [place] and eventually transferred to [facility] risk physicians and is followed in [place] with this . She indicates that she woke up this morning with some contractions at about 3 AM and they have not lessened. [facility] Medical History History of migraine History of kidney stones History of pre-eclampsia Anxiety and depression delivery delivered Home Medications ???Medication ???Instructions ???Recorded ???Last Taken ???Type vitamin with calcium 1 tab PO DAILY 04/14/21 02/02/23 08:00 History no.72-iron 27 mg-folic acid 1 mg 1 TAB tablet ( Vitamins Plus Low Iron) famotidine 20 mg tablet (Acid-Pep) 20 mg PO DAILY 02/02/23 02/01/23 10:00 History 20 mg ferrous sulfate 325 mg (65 mg 325 mg PO QODAY 02/02/23 02/02/23 08:00 History iron) tablet (Feosol) 325 mg insulin detemir U-100 100 unit/mL 24 unit subcut QHS 02/02/23 02/01/23 21:30 History (3 mL) subcutaneous pen (Levemir 24 units FlexPen) ursodiol 300 mg capsule 300 mg PO TID 02/02/23 02/02/23 08:00 History 300 mg Allergy/AdvReac Type Severity Reaction Status Date / Time No Known Allergies Allergy Verified 08/17/23 08:56 Family History Grandfather Hypertension Grandmother Diabetes CVA (cerebral vascular accident) Hypertension Lupus Grandfather Diabetes Myocardial infarction CAD (coronary artery disease) Hypertension Surgical History History of Social History Smoking Status: Never smoker History Elective abortions Hx Para 0 Spontaneous abortions Hx # Term Pregnancies Ectopic pregnancies Hx # Pregnancies Multiple births # of living children ROS Constitutional Constitutional: Reports systems reviewed and no addt'l complaints, except as documented Physical Exam Narrative Afebrile, vital signs stable. Abdomen size appropriate for gestational age. Cervix is 1/thick, high, anterior. No bleeding noted. NST FHR Rate Baby A Decelerations:: None NST Reactive:: Appropriate for gestational age FHR Category:: Category I Assessment Plan (1) labor in third trimester: PLAN: Transient labor at 30+ weeks gestation. Will check fibronectin and hydrate with IV fluids. Will also send urine for UA C S. Contractions are spacing with IV fluid. If no cervica l change and contractions subside, will discharge to home with follow-up with her regular maternal- medicine physician. 12/07/23 1003 Date Tian Gomez MD Cosigner Signature (if applicable): Date CC: Dr. Tian Gomez MD; No Primary Care Physician Signed Normal [facility] Urinalysis, Routine (Dipstic k)on 12-07-2023 BILIRUBIN URINE Negative Normal Negative [facility] Comment on above: Order Comment: CLEAN CATCH Performed By: #### L 500.3400, L501.2450, L100.0100, L700.8000, L500.2500 #### [facility] [address] [place], [address] Clarity (U) Sl. Cloudy Normal Clear [facility] Comment on above: Order Comment: CLEAN CATCH Performed By: #### L 500.3400, L501.2450, L100.0100, L700.8000, L500.2500 #### [facility] [address] [place], [address] Color (U) Yellow Normal Yellow [facility] Comment on above: Order Comment: CLEAN CATCH Performed By: #### L 500.3400, L501.2450, L100.0100, L700.8000, L500.2500 #### [facility] [address] [place], [address] GLUCOSE, UR Normal Normal Normal [facility] Comment on above: Order Comment: CLEAN CATCH Performed By: #### L 500.3400, L501.2450, L100.0100, L700.8000, L500.2500 #### [facility] [address] [place], [address] KETONE UR Negative Normal Negative [facility] Comment on above: Order Comment: CLEAN CATCH Performed By: #### L 500.3400, L501.2450, L100.0100, L700.8000, L500.2500 #### [facility] [address] [place], [address] LEUK ESTERASE 25 /ul Abnormal Negative [facility] Comment on above: Order Comment: CLEAN CATCH Performed By: #### L 500.3400, L501.2450, L100.0100, L700.8000, L500.2500 #### [facility] [address] [place], [address] Nitrite Ql (U) Negative Normal Negative [facility] Comment on above: Order Comment: CLEAN CATCH Performed By: #### L 500.3400, L501.2450, L100.0100, L700.8000, L500.2500 #### [facility] [address] [place], [address] OCCULT BLOOD-UR 10 /ul Abnormal Negative [facility] Comment on above: Order Comment: CLEAN CATCH Performed By: #### L 500.3400, L501.2450, L100.0100, L700.8000, L500.2500 #### [facility] [address] [place], [place], [facility] pH UR 7.0 Normal 5.0 - 8.0 [facility] Comment on above: Order Comment: CLEAN CATCH Performed By: #### L 500.3400, L501.2450, L100.0100, L700.8000, L500.2500 #### [facility] [address] [place], [address] PROT DIPSTX 30 mg/dl Abnormal Negative [facility] Comment on above: Order Comment: CLEAN CATCH Performed By: #### L 500.3400, L501.2450, L100.0100, L700.8000, L500.2500 #### [facility] [address] [place], [address] SP.GR. DIPSTX 1.010 Normal 1.002-1.030 [facility] Comment on above: Order Comment: CLEAN CATCH Performed By: #### L 500.3400, L501.2450, L100.0100, L700.8000, L500.2500 #### [facility] [address] [place], [address] UROBILI 1 mg/dl Abnormal Normal [facility] Comment on above: Order Comment: CLEAN CATCH Performed By: #### L 500.3400, L501.2450, L100.0100, L700.8000, L500.2500 #### [facility] [address] [place] [address] Urine Drug Screen (VISTA)on 12-07-2023 AMPHETAMINES Negative Normal <1000 ng/mL [facility] Comment on above: Performed By: #### L 500.3400, L501.2450, L100.0100, L700.8000, L500.2500 #### [facility] [address] [place] [address] BARBITIURATES Negative Normal < 200 ng/mL [facility] Comment on above: Performed By: #### L 500.3400, L501.2450, L100.0100, L700.8000, L500.2500 #### [facility] [address] [place] [id number] BENZODIAZIPINE Negative Normal < 200 ng/mL [facility] Comment on above: Performed By: #### L 500.3400, L501.2450, L100.0100, L700.8000, L500.2500 #### [facility] [address] [place] [id number] COCAINE Negative Normal < 300 ng/mL [facility] Comment on above: Performed By: #### L 500.3400, L501.2450, L100.0100, L700.8000, L500.2500 #### [facility] [address] [place] [address] ECSTACY Negative Normal < 500 ng/mL [facility] Comment on above: Performed By: #### L 500.3400, L501.2450, L100.0100, L700.8000, L500.2500 #### [facility] [address] [place] [address] METHADONE Negative Normal < 300 ng/mL [facility] Comment on above: Performed By: #### L 500.3400, L501.2450, L100.0100, L700.8000, L500.2500 #### [facility] [address] [place] [address] OPIATES Negative Normal < 300 ng/mL [facility] Comment on above: Performed By: #### L 500.3400, L501.2450, L100.0100, L700.8000, L500.2500 #### [facility] [address] [place] [address] PCP Negative Normal < 25 ng/mL [facility] Comment on above: Performed By: #### L 500.3400, L501.2450, L100.0100, L700.8000, L500.2500 #### [facility] [address] [place] [address] THC Negative Normal < 50 ng/mL [facility] Comment on above: Performed By: #### L 500.3400, L501.2450, L100.0100, L700.8000, L500.2500 #### [facility] [place] [address] VISTA UDS PH 7 Normal [facility] Comment on above: Performed By: #### L 500.3400, L501.2450, L100.0100, L700.8000, L500.2500 #### [facility] [address] [place], [address] Progress Noteon 12-01-2023 Room Service Waiter Authentication Interface Message Text I called pt after reviewing BS log that was sent in. She has not started any insulin. NPH 20u in am and 20u @ HS. Prescribed to pharmacy. Pt needs to have nutrition scheduled and has a follow up on Tuesday12/05/23. Normal [facility] Progress Noteon 11-30-2023 Room Service Waiter Authentication Interface Message Text Pt seen for consult by Dr Melendez. [employer] G7 set up for pt and she is now sharing data with [facility]. Prescribed G7, pen needles (previous OB called in insulin pens and did not supply needles. Also prescribed daily keflex for recurrent UTIs in . Pt is to take 15u of trujeo @ HS and have follow up appt telehealth on Tuesday12/05/23 for review of BS. Please see consult note. 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 Social History: Denies Pertinent Family History/Genetic History: Denies Pertinent Outpatient Medications Marked as Taking for the 11/30/23 encounter (Office Visit) with [facility] Medication Sig Dispense Refill BUTALBITAL-ACETAMINOPHEN PO Take 1 Capsule by mouth 4 times daily as needed RA ALCOHOL SWABS 70 % PADS Blood Glucose Monitoring Suppl (ONE TOUCH ULTRA 2) w/Device KIT use as directed to CHECK BLOOD SUGAR four times a day FREESTYLE PRECISION DANAY TEST test strip FREESTYLE LANCETS [facility] Vit w/Wi-Zyuaqbddv-ZH (PNV PO) Take 1 Tablet by mouth [...] increasing hormonal insulin resistance from the placenta. alf health: Patient will require repeat 2 hr [...] Fat should (more content not included)... Normal [facility] FFNon 11-28-2023 Fibronectin Negative Normal Negative [facility] Comment on above: Performed By: #### F FN #### [place] [address] LABORATORYOrdered By: Nataliia Diaz on 11-28-2023 Fibronectin. Ql (Vag fld) Negative (11/28/23 2:17 PM) Normal Negative Manual Chem SS .GFRon 11-10-2023 GFR 143 ml/min/1.73sqm Normal [facility] Comment on above: Result Comment: GFR Population [...] By: #### A 1C, GFR, CMP #### [address] [address] GFR Non- 118 ml/min/1.73sqm [facility] Comment on above: Result Comment: GFR Population [...] By: #### A 1C, GFR, CMP #### [address] [address] A1Con 11-10-2023 Glucose [Mass/Vol] 108 mg/dL Normal [facility] Comment on above: Result Comment: Parvin mated Average Glucose calculated by equation ((28.7xA1C)-46.7) Estimated average glucose (eAG) is a calculated value from Hemoglobin A1C and is product support representative of the average blood glucose level in the last 2-3 month period. Normal range: less than 114 mg/dL Performed By: #### A 1C, GFR, CMP #### [address] [address] HbA1c (Bld) [Mass fraction] 5.4 % Normal 4.3-6.4 [facility] Comment on above: Performed By: #### A 1C, GFR, CMP #### [place] [id number] CMPon 11-10-2023 Albumin Level 2.5 G/dL Low 3.5-5.0 [facility] Comment on above: Performed By: #### A 1C, GFR, CMP #### [place] [address] Albumin/Globulin [Mass ratio] 0.6 {ratio} Low 1.1-2.5 [facility] Comment on above: Performed By: #### A 1C, GFR, CMP #### [place] [address] ALP [Catalytic activity/Vol] 134 U/L Normal 40-135 [facility] Comment on above: Performed By: #### A 1C, GFR, CMP #### [place] [address] ALT [Catalytic activity/Vol] 27 U/L Normal 14-59 [facility] Comment on above: Performed By: #### A 1C, GFR, CMP #### [place] [address] AST [Catalytic activity/Vol] 17 U/L Normal 10-40 [facility] Comment on above: Performed By: #### A 1C, GFR, CMP #### [place] [address] Bili Total 0.3 mg/dL Normal 0.2-1.0 [facility] Comment on above: Result Comment: Use of this assay is not recommended for patients undergoing treatment with eltrombopag due to the potential for falsely elevated results. Performed By: #### A 1C, GFR, CMP #### [place] [address] BUN/Creatinine Ratio 10 ratio Normal 7-27 [facility] Comment on above: Performed By: #### A 1C, GFR, CMP #### [address] [address] Calcium [Mass/Vol] 8.6 mg/dL Normal 8.4-10.2 [facility] Comment on above: Performed By: #### A 1C, GFR, CMP #### [address] [address] Chloride [Moles/Vol] 103 mmol/L Normal 98-107 [facility] Comment on above: Performed By: #### A 1C, GFR, CMP #### [address] [address] CO2 [Moles/Vol] 24 mmol/L Normal 22-29 [facility] Comment on above: Performed By: #### A 1C, GFR, CMP #### [address] [address] Creatinine [Mass/Vol] 0.63 mg/dL Normal 0.55-1.02 [facility] Comment on above: Result Comment: Test ing performed on [email or web address] Dimension EXL analyzer using a modified kinetic Bryce technique. Performed By: #### A 1C, GFR, CMP #### [address] [address] Electrolyte Balance 12.0 mEq/L Normal 4.0-15.0 [facility] Comment on above: Performed By: #### A 1C, GFR, CMP #### [address] [address] Globulin 4.2 G/dL Normal [facility] Comment on above: Performed By: #### A 1C, GFR, CMP #### [address] [address] Glucose [Mass/Vol] 160 mg/dL High 70-105 [facility] Comment on above: Performed By: #### A 1C, GFR, CMP #### [address] [address] Potassium [Moles/Vol] 3.7 mmol/L Normal 3.5-5.1 [facility] Comment on above: Performed By: #### A 1C, GFR, CMP #### [place] [id number] [place], [place] [address] Sodium [Moles/Vol] 139 mmol/L Normal 136-145 [facility] Comment on above: Performed By: #### A 1C, GFR, CMP #### [place] [address] [place], [place] [address] Total Protein 6.7 G/dL Normal 6.4-8.2 [facility] Comment on above: Performed By: #### A 1C, GFR, CMP #### [place] [address] [place], [place] [address] Urea nitrogen [Mass/Vol] 6 mg/dL Low 7-18 [facility] Comment on above: Performed By: #### A 1C, GFR, CMP #### [place] [id number] [place], [place] [address] GLFon 11-10-2023 Glucose [Mass/Vol] 107 mg/dL Normal 83-110 [facility] Comment on above: Performed By: #### G LF #### [address] [address] LABORATORYOrdered By: SYSTEM SYSTEM on 11-10-2023 Albumin [...] above: Interpretive Data: T esting performed on Siemens Dimension EXL analyzer using [...] calculated value from Hemoglobin A1C and is product support representative of the average blood glucose level [...] 91 mg/dL Normal 70 - 110 mg/dL [facility] Work Phone: [facility] 09-27-[address] Positive Normal [facility] Comment on above: Result Comment: INTE RPRETATION OF VARICELLA IMMUNE STATUS IgG BY EIA: Negative: No detectable VZV IgG antibody. Positive: VZV IgG antibody Detected. If clinically indicated, order Varicella IgM to rule out recent infection. Equivocal: Equivocal for antibodies to VZV. Suggest repeat testing in 10-14 days. Performed By: #### V BRITTNEE, RUBIS, HBSAG, RPR ####[address] [address]#### CBC, ADIFF, ANEU, TSH, ABOGEL, ABSGEL ####[address] [address] RPRon 09-24-2023 Reagin Ab RPR Ql (S) Non-Reactive Normal Non-Reactive [facility] Comment on above: Result Comment: The RPR [...] By: #### V BRITTNEE, RUBIS, HBSAG, RPR ####[place] [address]#### CBC, ADIFF, ANEU, TSH, ABOGEL, ABSGEL ####[facility] [address] [place] [address] RUBISon 09-24-[address] Positive Normal Positive [facility] Comment on above: Result Comment: This immune status assay detects IgM and/or IgG antibody to Rubella. Interpret results in conjunction with clinical history. POS: Antibody detected; exposure at undetermined recent or distant time. If clinically indicated, order Rubella IGM to rule out recent infection. NEG: No antibody detected. Performed By: #### V BRITTNEE, RUBIS, HBSAG, RPR ####[place] [address]#### CBC, ADIFF, ANEU, TSH, ABOGEL, ABSGEL ####[facility] [address] [place] [address] .Auto Diffon 09-23-2023 Basophil, Absolute 0.0 10 3/mcL Normal 0.0-0.2 [facility] ([place]) Comment on above: Performed By: #### V BRITTNEE, RUBIS, HBSAG, RPR ####[place] [address]#### CBC, ADIFF, ANEU, TSH, ABOGEL, ABSGEL ####[facility] [place], [place] [address] Basophils/100 WBC (Bld) 0.4 % Normal 0.0-2.5 [facility] Comment on above: Performed By: #### V BRITTNEE, RUBIS, HBSAG, RPR ####[place] [address]#### CBC, ADIFF, ANEU, TSH, ABOGEL, ABSGEL ####[facility] [place] [address] Eosinophil, Absolute 0.0 10 3/mcL Normal 0.0-0.4 [facility] ([place]) Comment on above: Performed By: #### V BRITTNEE, RUBIS, HBSAG, RPR ####[place] [address]#### CBC, ADIFF, ANEU, TSH, ABOGEL, ABSGEL ####[address] [address] Eosinophils/100 WBC (Bld) 0.3 % Normal 0.0-7.0 [facility] ([place] Comment on above: Performed By: #### V BRITTNEE, RUBIS, HBSAG, RPR ####[place] [address]#### CBC, ADIFF, ANEU, TSH, ABOGEL, ABSGEL ####[address] [address] Lymphocyte, Absolute 2.2 10 3/mcL Normal 0.8-3.9 [facility] ([place] Comment on above: Performed By: #### V BRITTNEE, RUBIS, HBSAG, RPR ####[place] [address]#### CBC, ADIFF, ANEU, TSH, ABOGEL, ABSGEL ####[address] [address] Lymphocytes/100 WBC (Bld) 20.5 % Normal 10.0-50.0 [facility] ([place] Comment on above: Performed By: #### V BRITTNEE, RUBIS, HBSAG, RPR ####[place] [address]#### CBC, ADIFF, ANEU, TSH, ABOGEL, ABSGEL ####[facility] [place], [place] [address] Monocyte, Absolute 0.6 10 3/mcL Normal 0.2-1.0 [facility] ([place]) Comment on above: Performed By: #### V BRITTNEE, RUBIS, HBSAG, RPR ####[place] [address]#### CBC, ADIFF, ANEU, TSH, ABOGEL, ABSGEL ####[facility] [place], [place] [address] Monocytes/100 WBC (Bld) 5.6 % Normal 1.7-13.0 [facility] ([place] Comment on above: Performed By: #### V BRITTNEE, RUBIS, HBSAG, RPR ####[place] [address]#### CBC, ADIFF, ANEU, TSH, ABOGEL, ABSGEL ####[place] [address] [place], [place] [address] Neutrophils/100 WBC (Bld) 73.2 % Normal 37.0-80.0 [facility] Comment on above: Performed By: #### V BRITTNEE, RUBIS, HBSAG, RPR ####[place] [address]#### CBC, ADIFF, ANEU, TSH, ABOGEL, ABSGEL ####[facility] [place], [place] [address] .NEUABSon 09-23-2023 Neutrophil, Absolute 7.8 10 3/mcL High 2.9-6.2 [facility] ([place]) Comment on above: Performed By: #### V BRITTNEE, RUBIS, HBSAG, RPR ####[place] [address]#### CBC, ADIFF, ANEU, TSH, ABOGEL, ABSGEL ####[facility] [place], [place] [address] ABO/Rh (Gel)on 09-23-2023 ABO/Rh Interp Positive Invalid Interpretation Code [facility] Comment on above: Performed By: #### V BRITTNEE, RUBIS, HBSAG, RPR ####[place] [address]#### CBC, ADIFF, ANEU, TSH, ABOGEL, ABSGEL ####[facility] [place], [place] [address] ABS (Gel)on 09-23-2023 ABSC Interp (Gel) Negative Normal [facility] ([place] Comment on above: Performed By: #### V BRITTNEE, RUBIS, HBSAG, RPR ####[place] [address]#### CBC, ADIFF, ANEU, TSH, ABOGEL, ABSGEL ####[place] [address] [place] [address] CBCon 09-23-2023 Erythrocyte distribution width (RBC) [Ratio] 15.0 % High 11.5-14.5 [facility] ([place] Comment on above: Performed By: #### V BRITTNEE, RUBIS, HBSAG, RPR ####[place] [address]#### CBC, ADIFF, ANEU, TSH, ABOGEL, ABSGEL ####[place] [address] [place] [id number] Hematocrit (Bld) [Volume fraction] 36.2 % Low 37.0-47.0 [facility] Comment on above: Performed By: #### V BRITTNEE, RUBIS, HBSAG, RPR ####[place] [address]#### CBC, ADIFF, ANEU, TSH, ABOGEL, ABSGEL ####[facility] [place] [id number] Hgb 11.9 G/dL Low 12.0-16.0 [facility] Comment on above: Performed By: #### V BRITTNEE, RUBIS, HBSAG, RPR ####[place] [address]#### CBC, ADIFF, ANEU, TSH, ABOGEL, ABSGEL ####[facility] [place] [phone] MCH (RBC) [Entitic mass] 24.8 pg Low 27.0-31.2 [facility] Comment on above: Performed By: #### V BRITTNEE, RUBIS, HBSAG, RPR ####[place] [address]#### CBC, ADIFF, ANEU, TSH, ABOGEL, ABSGEL ####[facility] [place] [id number] MCHC 32.8 G/dL Low 33.0-37.0 [facility] Comment on above: Performed By: #### V BRITTNEE, RUBIS, HBSAG, RPR ####[place] [address]#### CBC, ADIFF, ANEU, TSH, ABOGEL, ABSGEL ####[place] [address] [place] [id number] MCV (RBC) [Entitic vol] 75.5 fL Low 80.0-94.0 [facility] Comment on above: Performed By: #### V BRITTNEE, RUBSWETHA, HBSAG, RPR ####[place] [address]#### CBC, ADIFF, ANEU, TSH, ABOGEL, ABSGEL ####[facility] [place] [phone] Platelet 162 10 3/mcL Normal 130-400 [facility] Comment on above: Performed By: #### V BRITTNEE, RUBIS, HBSAG, RPR ####[place] [address]#### CBC, ADIFF, ANEU, TSH, ABOGEL, ABSGEL ####[facility] [place] [phone] Platelet mean volume (Bld) [Entitic vol] 9.5 fL Normal 7.4-10.4 [facility] Comment on above: Performed By: #### V BRITTNEE, RUBIS, HBSAG, RPR ####[place] [address]#### CBC, ADIFF, ANEU, TSH, ABOGEL, ABSGEL ####[facility] [address] [place], [place] [address] RBC 4.80 10 6/mcL Normal 4.20-5.40 [facility] ([place] Comment on above: Performed By: #### V BRITTNEE, RUBIS, HBSAG, RPR ####[place] [address]#### CBC, ADIFF, ANEU, TSH, ABOGEL, ABSGEL ####[facility] [address] [place] [address] WBC 10.7 10 3/mcL Normal 4.6-10.8 [facility] Comment on above: Performed By: #### V BRITTNEE, RUBIS, HBSAG, RPR ####[place] [address]#### CBC, ADIFF, ANEU, TSH, ABOGEL, ABSGEL ####[facility] [address] [place] [phone] HBSAGon 09-23-2023 Hep B Surf Ag Non-Reactive Normal Non-Reactive [facility] Comment on above: Performed By: #### V BRITTNEE, RUBIS, HBSAG, RPR ####[place] [address]#### CBC, ADIFF, ANEU, TSH, ABOGEL, ABSGEL ####[facility] [place], [place] [address] LABORATORYOrdered By: Monica Chiu on 09-23-2023 ABO and Rh group Nom (Bld) Blood group B Rh(D) positive Invalid Interpretation Code AO BB Auto SS Blood group antibody screen Ql Negative ABSC (09/23/23 2:02 PM) Normal AO BB Auto SS LABORATORYOrdered By: [employer] on 09-23-2023 Basophil, Absolute 0.0 103/mcL [...] IA Ql Non-Reactive (09/23/23 2:02 PM) Normal Non-Reactive AH ADM SS Hematocrit (Bld) [Volume fraction] [...] (Bld) [#/Vol] 4.80 106/mcL Normal 4.20 - 5.4 0 10^6/mcL AO Workflow SS TSH Qn 0.68 m[IU]/L Normal 0.36 - 3.74 mcIU/mL AO ADM SS WBC (Bld) [#/Vol] 10.7 103/mcL Normal 4.6 - 10.8 10^3/mcL AO Workflow SS TSHon 09-23-2023 TSH Qn 0.68 m[IU]/L Normal 0.36-3.74 [facility] Comment on above: Performed By: #### V BRITTNEE, RUBIS, HBSAG, RPR ####[place] [address]#### CBC, ADIFF, ANEU, TSH, ABOGEL, ABSGEL ####[facility] [place], [place] [address] CTPCRon 09-09-2023 C. trachomatis Interp Normal See CT Interp N [facility] Comment on above: Result Comment: C. t rachomatis DNA not detected. Specimen is presumptive negative forC. trachomatis.A negative result does not preclude C. trachomatis infection becauseresults depend on adequate specimen collection, absence of inhibitors,and sufficient DNA to be detected.See CT Interp N Performed By: #### N GPCR1, CTPCR ####[place] [address] C.trachomatis PCR Negative Normal Negative [facility] ([place]) Comment on above: Result Comment: Mole cular (PCR) assay performed on the [employer] 4800 system. Performed By: #### N GPCR1, CTPCR ####[place] [address] Chlam Source Cervix Normal [facility] ([place]) Comment on above: Performed By: #### N GPCR1, CTPCR ####[place] [address] [id number] 09-09-2023 GC PCR Source Cervix Normal [facility] ([place] Comment on above: Performed By: #### N GPCR1, CTPCR ####[place] [address] N. gonorrhoeae (PCR) Negative Normal Negative [facility] ([place]) Comment on above: Result Comment: Mole cular (PCR) assay performed on the [employer] Elaine 4800 System. Performed By: #### N GPCR1, CTPCR ####[place] [address] [place] [address] N. gonorrhoeae Interp Normal See NG Interp N [facility] ([place]) Comment on above: Result Comment: N. g onorrhoeae DNA not detected. Specimen is presumptive negative forN. gonorrhoeae. A negative result does not preclude Neisseria gonorrhoeaeinfection because results depend on adequate specimen collection, absenceof inhibitors, and sufficient DNA to be detected.See NG Interp N Performed By: #### N GPCR1, CTPCR ####[place] [address] [place] [address] LABORATORYOrdered By: Miladis Strickland on 09-08-2023 C. [...] Specimen inform ationOrdered By: Miladis Strickland on 09-08-2023 Specimen source Nom (Unsp spec) Cervix (09/08/23 1:08 PM) Normal AH Auto Viro/Sero SS CNOVon 08-30-2023 CNOV Office Visit (WSTR ) ----- LESTER INFANTE ([id number]) 1 F Date Time Provider Department 08/30/23 10:30 AM NAYE HANCOCK [facility] During your visit today, we recorded the following information about you: Temperature Pulse Respiration Blood pressure 98.6 degrees 92/minute 18/minute 114/78 Weight 128.1 kg Naye Hancock APRN.[facility] 08/30/2023 10:42 AM Signed CC: Patient presents [...] treatment plan. Follow-up with OB. Naye Hancock APRN.[facility] Allergies As of Date: 08/30/2023 (No Known [...] Status:Closed by NAYE HANCOCK on 08/30/23 Normal [facility] Basic Metabolic Profile (BMP )on 08-17-2023 BUN/CRE 11.4 RATIO Normal 10-20 [facility] Comment on above: Performed By: #### L 500.3400, L501.2450, L100.0100, L700.8000, L500.2500 #### [facility] [address] [place], [address] CA,Total 8.6 mg/dL Normal 8.5-10.1 [facility] Comment on above: Performed By: #### L 500.3400, L501.2450, L100.0100, L700.8000, L500.2500 #### [facility] [address] [place], [address] Chloride [Moles/Vol] 107 mmol/L Normal 98-107 [facility] Comment on above: Performed By: #### L 500.3400, L501.2450, L100.0100, L700.8000, L500.2500 #### [facility] [address] [place], [address] CO2 [Moles/Vol] 22.0 mmol/L Normal 21.0-32.0 [facility] Comment on above: Performed By: #### L 500.3400, L501.2450, L100.0100, L700.8000, L500.2500 #### [facility] [address] [place], [address] Creatinine [Mass/Vol] 0.62 mg/dL Normal 0.55-1.[address] [facility] Comment on above: Result Comment: The validity of the calculated GFR GFRAA in patients over 70 years has not been determined. Clinical correlation is essential. Performed By: #### L 500.3400, L501.2450, L100.0100, L700.8000, L500.2500 #### [facility] [address] [place], [address] ECRCL 185.93 ml/min Normal [facility] Comment on above: Performed By: #### L 500.3400, L501.2450, L100.0100, L700.8000, L500.2500 #### [facility] [address] [place], [address] EST GFR - AA 155 mL/min Normal >60 [facility] Comment on above: Result Comment: Afri can Jordanian GFR Calc Performed By: #### L 500.3400, L501.2450, L100.0100, L700.8000, L500.2500 #### [facility] [address] [place], [place], [facility] GAP 7 Normal 5-15 [facility] Comment on above: Performed By: #### L 500.3400, L501.2450, L100.0100, L700.8000, L500.2500 #### [facility] [address] [place], [address] GFR/1.73 sq M.predicted among non-blacks MDRD (S/P/Bld) [Vol rate/Area] 128 mL/min/{1.73_m2} Normal >60 [facility] Comment on above: Result Comment: Non- GFR Calc Performed By: #### L 500.3400, L501.2450, L100.0100, L700.8000, L500.2500 #### [facility] [address] [place], [address] Glucose [Mass/Vol] 90 mg/dL Normal 74-106 [facility] Comment on above: Performed By: #### L 500.3400, L501.2450, L100.0100, L700.8000, L500.2500 #### [facility] [address] [place], [address] Potassium [Moles/Vol] 3.7 mmol/L Normal 3.5-5.[address] [facility] Comment on above: Performed By: #### L 500.3400, L501.2450, L100.0100, L700.8000, L500.2500 #### [facility] [address] [place], [address] Sodium [Moles/Vol] 136 mmol/L Normal 136-145 [facility] Comment on above: Performed By: #### L 500.3400, L501.2450, L100.0100, L700.8000, L500.2500 #### [facility] [address] [place], [address] Urea nitrogen [Mass/Vol] 7 mg/dL Normal 7-18 [facility] Comment on above: Performed By: #### L 500.3400, L501.2450, L100.0100, L700.8000, L500.2500 #### [facility] [address] [place], [address] CBC W/Diff, Automatedon 07-0 -2023 Absolute Lymph 2.25 X10 3/uL Normal 0.83-4.51 [facility] Comment on above: Performed By: #### L 500.3400, L501.2450, L100.0100, L700.8000, L500.2500 #### [facility] [address] [place], [address] Absolute Neut 5.3 X10 3/uL Normal 2.0-7.7 [facility] Comment on above: Performed By: #### L 500.3400, L501.2450, L100.0100, L700.8000, L500.2500 #### [facility] [address] [place], [address] Basophils/100 WBC (Bld) 0.6 % Normal 0-1 [facility] Comment on above: Performed By: #### L 500.3400, L501.2450, L100.0100, L700.8000, L500.2500 #### [facility] [address] [place], [address] Eosinophils/100 WBC (Bld) 0.1 % Normal 0-5 [facility] Comment on above: Performed By: #### L 500.3400, L501.2450, L100.0100, L700.8000, L500.2500 #### [facility] [address] [place], [address] Erythrocyte distribution width (RBC) [Ratio] 14.0 % Normal 11.6-14.6 [facility] Comment on above: Performed By: #### L 500.3400, L501.2450, L100.0100, L700.8000, L500.2500 #### [facility] [address] [place], [address] Hematocrit (Bld) [Volume fraction] 36.6 % Low 37-47 [facility] Comment on above: Performed By: #### L 500.3400, L501.2450, L100.0100, L700.8000, L500.2500 #### [facility] [address] [place], [address] Hemoglobin (Bld) [Mass/Vol] 11.4 g/dL Low 12.0-15.0 [facility] Comment on above: Performed By: #### L 500.3400, L501.2450, L100.0100, L700.8000, L500.2500 #### [facility] [address] [place], [address] IG% 0.400 Normal 0.0-0.9 [facility] Comment on above: Result Comment: IG% - Immature Granulocytes (promyelocytes, myelocytes and metamyelocytes) > 1% indicates that a LEFT SHIFT is Present. Performed By: #### L 500.3400, L501.2450, L100.0100, L700.8000, L500.2500 #### [facility] [address] [place], [address] Lymphocytes/100 WBC (Bld) 27.7 % Normal 19-41 [facility] Comment on above: Performed By: #### L 500.3400, L501.2450, L100.0100, L700.8000, L500.2500 #### [facility] [address] [place], [address] MCH (RBC) [Entitic mass] 24.0 pg Low 27.0-32.0 [facility] Comment on above: Performed By: #### L 500.3400, L501.2450, L100.0100, L700.8000, L500.2500 #### [facility] [address] [place], [address] MCHC (RBC) [Mass/Vol] 31.1 g/dL Low 32-[address] [facility] Comment on above: Performed By: #### L 500.3400, L501.2450, L100.0100, L700.8000, L500.2500 #### [facility] [address] [place], [address] MCV (RBC) [Entitic vol] 77.1 fL Low 81-99 [facility] Comment on above: Performed By: #### L 500.3400, L501.2450, L100.0100, L700.8000, L500.2500 #### [facility] [address] [place], [address] Monocytes/100 WBC (Bld) 6.0 % Normal 0-10 [facility] Comment on above: Performed By: #### L 500.3400, L501.2450, L100.0100, L700.8000, L500.2500 #### [facility] [address] [place], [address] Neutrophils/100 WBC (Bld) 65.2 % Normal 47-70 [facility] Comment on above: Performed By: #### L 500.3400, L501.2450, L100.0100, L700.8000, L500.2500 #### [facility] [address] [place], [address] Nucleated RBC (Bld) [#/Vol] 0 10*3/uL Normal 0-5 [facility] Comment on above: Performed By: #### L 500.3400, L501.2450, L100.0100, L700.8000, L500.2500 #### [facility] [address] [place], [address] Platelet mean volume (Bld) [Entitic vol] 11.2 fL Normal 6.2-12.0 [facility] Comment on above: Performed By: #### L 500.3400, L501.2450, L100.0100, L700.8000, L500.2500 #### [facility] [address] [place], [address] Platelets (Bld) [#/Vol] 170 10*3/uL Normal 150-450 [facility] Comment on above: Performed By: #### L 500.3400, L501.2450, L100.0100, L700.8000, L500.2500 #### [facility] [address] [place], [address] RBC (Bld) [#/Vol] 4.75 10*6/uL Normal 4.2-5.4 [facility] Comment on above: Performed By: #### L 500.3400, L501.2450, L100.0100, L700.8000, L500.2500 #### [facility] [address] [place], [address] RDW SD 38.8 fl Normal 35.1-43.9 [facility] Comment on above: Performed By: #### L 500.3400, L501.2450, L100.0100, L700.8000, L500.2500 #### [facility] [address] [place], [address] WBC (Bld) [#/Vol] 8.1 10*3/uL Normal 4.4-11.0 [facility] Comment on above: Performed By: #### L 500.3400, L501.2450, L100.0100, L700.8000, L500.2500 #### [facility] [address] [place], [address] Emergency Department Summary on 08-17-2023 Emergency Department Summary [facility] Medical Records Department [address] [place] [address] Emergency Department Summary 08/17/23 MR#: [id number] Acct: [id number] Name: LESTER INFANTE Rep #: [id number] : 2000 22 From: Karina Hooks MD PCP: Care Physician,No Primary Status:DEP ER Location: ED HPI HPI - Female History of Present Illness Chief Complaint: Informant: patient Narrative Narrative: Patient presents secondary to mid right-sided abdominal pain that is sharp in nature. Patient states pain started last evening. 3 days ago patient had a positive home test. She is not having any bleeding but has noted some pelvic cramping. She states her last menstrual cycle was late April, but she does have irregular periods. Patient does state that during her last she had cholestasis and is not sure if that may be what is going on again. She has had no fever or chills. No vomiting. [facility] Medical History History of migraine History of kidney stones History of pre-eclampsia Anxiety and depression delivery delivered Home Medications ???Medication ???Instructions ???Recorded ???Last Taken ???Type vitamin with calcium 1 tab PO DAILY 04/14/21 02/02/23 08:00 History no.72-iron 27 mg-folic acid 1 mg 1 TAB tablet ( Vitamins Plus Low Iron) famotidine 20 mg tablet (Acid-Pep) 20 mg PO DAILY 02/02/23 02/01/23 10:00 History 20 mg ferrous sulfate 325 mg (65 mg 325 mg PO QODAY 02/02/23 02/02/23 08:00 History iron) tablet (Feosol) 325 mg insulin detemir U-100 100 unit/mL 24 unit subcut QHS 02/02/23 02/01/23 21:30 History (3 mL) subcutaneous pen (Levemir 24 units FlexPen) ursodiol 300 mg capsule 300 mg PO TID 02/02/23 02/02/23 08:00 History 300 mg Allergy/AdvReac Type Severity Reaction Status Date / Time No Known Allergies Allergy Verified 08/17/23 08:56 Family History Grandfather Hypertension Grandmother Diabetes CVA (cerebral vascular accident) Hypertension Lupus Grandfather Diabetes Myocardial infarction CAD (coronary artery disease) Hypertension Surgical History History of Social History Smoking Status: Never smoker ROS ROS ED Constitutional Constitutional ED: Denies chills or fever(s) Eyes Eyes: Denies discharge from eye(s) ENT ENT ED: Denies discharge from eye(s), rhinorrhea or sore throat Cardiovascular Cardiovascular: Denies chest pain Respiratory/Chest Respiratory/Chest: Denies cough or dyspnea Gastrointestinal Gastrointestinal: Reports abdominal pain; Denies nausea or vomiting Musculoskeletal Musculoskeletal: Denies back pain or extremity pain Integumentary Denies Abrasions or rash Neurologic Neurologic: Denies headache(s) or weakness Psychiatric Psychiatric: Denies anxiety or depression Allergic/Immunologic Allergic/Immunologic ED: Denies lip swelling or urticaria EXAM Physical Exam Const Vital Signs: 08/17/23 08:56 08/17/23 10:55 08/17/23 12:00 Temperature 96.7 F L Temperature Source Temporal Pulse Rate 86 80 82 Respiratory Rate 18 18 16 Blood Pressure 143/78 H 122/61 H 135/76 H Blood Pressure Mean 99 81 95 Pulse Ox 99 98 98 Oxygen Delivery Method Room Air Room Air Room Air 08/17/23 14:00 Temperature Temperature Source Pulse Rate 81 Respiratory Rate 16 Blood Pressure 130/72 H Blood Pressure Mean 91 Pulse Ox 98 Oxygen Delivery Method Room Air Positive well nourished and well developed General Appearance ED: well developed HEENT Reports moist mucous membranes Eyes EOMs intact bilaterally Chest Wall inspection of chest normal and palpation of chest normal Resp normal respiratory effort and clear to auscultation bilaterally Cardio regular rate and regular rhythm GI GI Narrative: Abdomen soft with mild tenderness in the right mid abdomen. No focal tenderness with deep palpation in the right upper quadrant. Active bowel sounds are noted throughout. No guarding or rebound. No palpable masses. Extremity normal to inspection Neuro oriented x3 and no sensory deficits noted Motor Exam: strength 5/5 throughout Psych mental status grossly normal Skin no rashes or lesions noted MDM MDM MDM Narrative Medical decision making narrative: IV line established. Labwork obtained to evaluate for leukocytosis, anemia, and electrolyte derangement. Urinalysis obtained to evaluate for infection/hematuria. History Record Review Discussion w/independent historian: Patient Lab Data Attestation: I revi (more content not included)... Normal [facility] Gallbladderon 08-17-2023 Gallbladder [facility] Imaging Services [address] [place], [place] [address] Gallbladder MR#: [id number] Acct: [id number] Name: LESTER INFANTE Rep #: [id number] : 2000 F 22 From: Osorio Arreguin PCP: Care Physician,No Primary Status: REG ER Study: Gallbladder Date of Exam: 08/17/23 Exam# [id number] Ordering Dr: Karina Hooks MD [id number] INDICATION: abd pain -- RUQ PAIN EXAMINATION: Ultrasound US Abdomen Limited (quadrant) TECHNIQUE: Sellers scale and color doppler imaging was performed of the right upper quadrant. COMPARISON: CT scan of the abdomen pelvis 07/16/2018 FINDINGS: LIVER: The liver is enlarged measuring about 20 cm in length and is echogenic in texture. The portal vein is patent with normal hepatopedal flow. No focal hepatic lesion. There is no free fluid. GALLBLADDER AND BILIARY TREE: No shadowing gallstone, pericholecystic fluid or gallbladder wall thickening is demonstrated. The gallbladder wall measures 2.4 mm. The proximal common bile duct measures 4.8 mm, which is within normal limits for the patient''s age. Sonographic Barrett''s sign: Negative. PANCREAS: The pancreas is suboptimally visualized due to overlying bowel gas. RIGHT KIDNEY: The right kidney measures 11.8 cm in length. The renal cortex measures 1.8 cm. Small calcification/nonobstruct ing stone is seen in the lower pole of the right kidney without evidence of hydronephrosis. US/Gallbladder IMPRESSION: 1. Hepatomegaly and hepatic steatosis. 2. No evidence of gallstones or gallbladder wall thickening. 3. Probable small nonobstructing stone in the right kidney. Electronically Signed: Osorio Diaz MD at 14:51 EDT , CC: Dr. Karina Hooks MD; No Primary Care Physician Varnish Thinner: Signed Normal [facility] Lipaseon 08-17-2023 Lipase [Catalytic activity/Vol] 23 U/L Normal 13-75 [facility] Comment on above: Result Comment: Plea se note: LIPASE revised reference range effective 22. New Lipase methodology. Expected to produce lower values than the previous assay method. NEW Reference Range: 13 - 75 U/L Performed By: #### L 500.3400, L501.2450, L100.0100, L700.8000, L500.2500 #### [facility] Laboratory [facility] [address] [place], [place], [id number] Liver Profileon 08-17-2023 Albumin [Mass/Vol] 2.8 g/dL Low 3.2-5.0 [facility] Comment on above: Performed By: #### L 500.3400, L501.2450, L100.0100, L700.8000, L500.2500 #### [facility] [address] [place], [address] ALK P 122 U/L High 45-117 [facility] Comment on above: Performed By: #### L 500.3400, L501.2450, L100.0100, L700.8000, L500.2500 #### [facility] [address] [place], [address] ALT [Catalytic activity/Vol] 19 U/L Normal 13-56 [facility] Comment on above: Performed By: #### L 500.3400, L501.2450, L100.0100, L700.8000, L500.2500 #### [facility] [address] [place], [address] AST [Catalytic activity/Vol] 12 U/L Low 15-37 [facility] Comment on above: Performed By: #### L 500.3400, L501.2450, L100.0100, L700.8000, L500.2500 #### [facility] [address] [place], [address] Bilirubin [Mass/Vol] 0.30 mg/dL Normal 0.20-1.00 [facility] Comment on above: Result Comment: For patients on eltrombopag therapy, use of Dimension [place] TBIL is not recommended. Performed By: #### L 500.3400, L501.2450, L100.0100, L700.8000, L500.2500 #### [facility] [address] [place], [address] Bilirubin.direct [Mass/Vol] 0.11 mg/dL Normal 0.00-0.30 [facility] Comment on above: Performed By: #### L 500.3400, L501.2450, L100.0100, L700.8000, L500.2500 #### [facility] [address] [place], [address] Globulin (S) [Mass/Vol] 4.3 g/dL High 2.2-4.2 [facility] Comment on above: Performed By: #### L 500.3400, L501.2450, L100.0100, L700.8000, L500.2500 #### [facility] [address] [place], [address] T PROT 7.1 g/dL Normal 6.4-8.2 [facility] Comment on above: Performed By: #### L 500.3400, L501.2450, L100.0100, L700.8000, L500.2500 #### [facility] [address] [place], [address] OB Limited With Biometricson 08-17-2023 OB Limited With Biometrics [facility] Imaging Services [address] [place] [address] OB Limited With Biometrics MR#: [id number] Acct: [id number] Name: LESTER INFANTE Rep #: [id number] : 2000 F 22 From: Osorio Arreguin PCP: Care Physician,No Primary Status: REG ER Study: OB Limited With Biometrics Date of Exam: 08/16 Exam# [id number] Ordering Dr: Karina Hooks MD [id number] STUDY: SECOND AND THIRD TRIMESTER OBSTETRICAL ULTRASOUND - LIMITED REASON FOR EXAM: Female, 22 years old abd pain -- RUQ PAIN LMP: 05/04/2023 PRIOR ULTRASOUND: No relevant prior comparison study available TECHNIQUE: Transabdominal TECHNICAL QUALITY: Adequate. FINDINGS: There is a single intrauterine fetus. The fetus is in variable presentations. There is demonstrated cardiac activity with a heart rate of 158 bpm. There is a normal amniotic fluid volume. The largest amniotic fluid pocket measures 5.3 cm. The amniotic fluid index (RACHEAL) is not measured. The placenta is anterior in location and is not low lying. There are Grade 0 placental changes. The cervix measures 5.5 cm in length. BIOMETRY: BPD: 2.5 cm: 14 weeks, 1 days HC: 9.6 cm: 14 weeks, 3 days AC: 18.2 cm: 14 weeks, 4 days FL: 1.2 cm: 13 weeks, 4 days Age by LMP: 13 weeks, 6 days. YOANDY by LMP: 12/16/2024. age by current US: 14 weeks, 1 days. YOANDY by current US: 02/14/2024. Estimated weight: 89 grams, +/- 13 grams, 48 percentile. US/OB Limited With Biometrics IMPRESSION: Single live intrauterine fetus with an estimated gestational age of 14 weeks and 1 day. YOANDY is 02/14/2024 Electronically Signed: Osorio Diaz MD at 15:08 EDT , CC: Dr. Karina Hooks MD; No Primary Care Physician Varnish Thinner: Signed Normal [facility] Urinalysis, Completeon 08-16 BACTERIA 2+ /hpf Normal None Seen [facility] Comment on above: Order Comment: CLEAN CATCH Performed By: #### L 400.0001 #### [facility] [address] [place], [address] EPI,SQUAMOUS 10-25 SEEN Normal 5-10 [facility] Comment on above: Order Comment: CLEAN CATCH Performed By: #### L 400.0001 #### [facility] [address] [place], [address] RBC 0-5 SEEN Normal 0-5 [facility] Comment on above: Order Comment: CLEAN CATCH Performed By: #### L 400.0001 #### [facility] [address] [place], [address] Mucus Ql (Urine sed) 0 SEEN Normal [facility] Comment on above: Order Comment: CLEAN CATCH Performed By: #### L 400.0001 #### [facility] [address] [place], [address] WBC 0 SEEN Normal 0-5 [facility] Comment on above: Order Comment: CLEAN CATCH Performed By: #### L 400.0001 #### [facility] [address] [place], [address] hCG Titer Quant., Serumon HCG QUANT. 88172 mIU/mL High 1-3 [facility] Comment on above: Result Comment: hCG levels with Gestational Age Gestational Age hCG mIU/mL (IU/L) 0.2 - 1 week 5 - 50 1-2 weeks 50 - 500 2-3 weeks 100 - 5000 3-4 weeks 500 - 81160 4-5 weeks 1000 - 07461 5-6 weeks 29737 - 100,000 6-8 weeks 77947 - 200,000 2-3 months 55102 - 100,000 Performed By: #### L 500.3400, L501.2450, L100.0100, L700.8000, L500.2500 #### [facility] [address] [place], [address] .Auto Diffon 02-22-2023 Basophil, Absolute 0.1 10 3/mcL Normal 0.0-0.3 [facility] ([place]) Comment on above: Performed By: #### C BC, ANEU, ADIFF ####[facility] [place] [address] Basophils/100 WBC (Bld) 0.7 % Normal 0.0-2.5 [facility] ([place]) Comment on above: Performed By: #### C BC, ANEU, ADIFF ####[address] [address] Eosinophil, Absolute 0.0 10 3/mcL Normal 0.0-0.7 [facility] ([place]) Comment on above: Performed By: #### C BC, ANEU, ADIFF ####[address] [address] Eosinophils/100 WBC (Bld) 0.0 % Normal 0.0-6.0 [facility] ([place]) Comment on above: Performed By: #### C BC, ANEU, ADIFF ####[address] [address] Lymphocyte, Absolute 2.9 10 3/mcL Normal 0.9-4.3 [facility] ([place]) Comment on above: Performed By: #### C BC, ANEU, ADIFF ####[address] [address] Lymphocytes/100 WBC (Bld) 23.5 % Normal 20.0-40.0 [facility] ([place]) Comment on above: Performed By: #### C BC, ANEU, ADIFF ####[address] [address] Monocyte, Absolute 1.0 10 3/mcL Normal 0.1-1.4 [facility] ([place]) Comment on above: Performed By: #### C BC, ANEU, ADIFF ####[address] [address] Monocytes/100 WBC (Bld) 8.3 % Normal 2.0-13.0 [facility] ([place]) Comment on above: Performed By: #### C BC, ANEU, ADIFF ####[address] [address] Neutrophils/100 WBC (Bld) 67.5 % Normal 50.0-75.0 [facility] ([place]) Comment on above: Performed By: #### C BC, ANEU, ADIFF ####[address] [address] .NEUABSon 02-22-2023 Neutrophil, Absolute 8.2 10 3/mcL High 2.3-8.1 [facility] ([place]) Comment on above: Performed By: #### C NATHAN MAO ADIFF ####[address] [address] CBCon 02-22-2023 Erythrocyte distribution width (RBC) [Ratio] 15.4 % Normal 11.5-15.5 [facility] ([place] Comment on above: Performed By: #### C NATHAN MAO, ADIFF ####[place] [address] Hematocrit (Bld) [Volume fraction] 30.0 % Low 34.0-46.0 [facility] ([place] Comment on above: Performed By: #### C NATHAN MAO ADIFF ####[place] [address] Hgb 9.8 G/dL Low 12.0-16.0 [facility] ([place] Comment on above: Performed By: #### C NATHAN MAO ADIFF ####[address] [address] MCH (RBC) [Entitic mass] 24.3 pg Low 27.0-33.0 [facility] ([place] Comment on above: Performed By: #### C NATHAN MAO, ADIFF ####[place] [address] MCHC 32.8 G/dL Normal 32.0-36.0 [facility] ([place] Comment on above: Performed By: #### C NATHAN MAO, ADIFF ####[address] [address] MCV (RBC) [Entitic vol] 74.1 fL Low 80.0-99.0 [facility] ([place] Comment on above: Performed By: #### C NATHAN MAO ADIFF ####[address] [address] Platelet 136 10 3/mcL Low 150-450 [facility] ([place] Comment on above: Performed By: #### C NATHAN MAO, ADIFF ####[address] [place] [address] Platelet mean volume (Bld) [Entitic vol] 10.7 fL High 6.6-10.5 [facility] ([place]) Comment on above: Performed By: #### C BC, ANEU, ADIFF ####[facility] [place] [address] RBC 4.05 10 6/mcL Low 4.10-5.30 [facility] ([place] Comment on above: Performed By: #### C BC, ANEU, ADIFF ####[facility] [place] [address] WBC 12.1 10 3/mcL High 4.5-10.8 [facility] ([place] Comment on above: Performed By: #### C BC, ANEU, ADIFF ####[facility] [place] [address] LABORATORYOrdered By: Trang Keys on 02-22-2023 Blood Glucose Testing Reason Routine (02/22/23 5:30 AM) [facility] Work Phone: Glucose [Mass/Vol] 99 mg/dL Normal 70 - 110 mg/dL [facility] Work Phone: Comment on above: Result Comment: fast ing blood sugar LABORATORYOrdered By: SYSTEM SYSTEM on 02-22-2023 Basophils (Bld) [#/Vol] 0.1 103/mcL Normal 0.0 - 0.3 10^3/mcL [facility] Workflow SS Basophils/100 WBC (Bld) 0.7 % Normal 0.0 - 2.5 % Workflow SS Eosinophils (Bld) [#/Vol] 0.0 103/mcL [...] 8.2 103/mcL High 2.3 - 8.1 10^3/mcL Workflow SS Neutrophils/100 WBC (Bld) 67.5 % Normal 50.0 - 75.0 % AH Workflow SS Platelet mean volume (Bld) [Entitic vol] 10.7 fL High 6.6 - 10.5 fL AH Workflow SS Platelets (Bld) [#/Vol] 136 103/mcL Low 150 - 450 10^3/mcL AH Workflow SS RBC (Bld) [#/Vol] 4.05 106/mcL Low 4.10 - 5.3 0 10^6/mcL AH Workflow SS WBC (Bld) [#/Vol] 12.1 103/mcL High 4.5 - 10.8 10^3/mcL Workflow SS RPRon 02-22-2023 Reagin Ab RPR Ql (S) Non-Reactive Normal Non-Reactive [facility] ([place]) Comment on above: Result Comment: The RPR [...] A WAYNE, RPR, ABSGEL, CBC, ABOGEL, ADIFF ####[place] [address] .Auto Diffon 02-21-2023 Basophil, Absolute 0.0 10 3/mcL Normal 0.0-0.3 [facility] ([place]) Comment on above: Performed By: #### A WAYNE, RPR, ABSGEL, CBC, ABOGEL, ADIFF ####[place] [address] Eosinophil, Absolute 0.0 10 3/mcL Normal 0.0-0.7 [facility] ([place]) Comment on above: Performed By: #### A WAYNE, RPR, ABSGEL, CBC, ABOGEL, ADIFF ####[place] [address] Lymphocyte, Absolute 1.7 10 3/mcL Normal 0.9-4.3 [facility] ([place]) Comment on above: Performed By: #### A WAYNE, RPR, ABSGEL, CBC, ABOGEL, ADIFF ####[place] [address] Monocyte, Absolute 0.5 10 3/mcL Normal 0.1-1.4 [facility] ([place]) Comment on above: Performed By: #### A WAYNE, RPR, ABSGEL, CBC, ABOGEL, ADIFF ####[place] [address] .Auto DiffOrdered By: SYSTEM SYSTEM on 02-21-2023 Basophils/100 WBC (Bld) 0.6 % Normal 0.0-2.5 Workflow SS Comment on above: Performed By: #### A WAYNE, RPR, ABSGEL, CBC, ABOGEL, ADIFF ####[place] [address] Eosinophils/100 WBC (Bld) 0.1 % Normal 0.0-6.0 AH Workflow SS Comment on above: Performed By: #### A WAYNE, RPR, ABSGEL, CBC, ABOGEL, ADIFF ####[address] [place] [address] Lymphocytes/100 WBC (Bld) 21.4 % Normal 20.0-40.0 AH Workflow SS Comment on above: Performed By: #### A WAYNE, RPR, ABSGEL, CBC, ABOGEL, ADIFF ####[address] [address] Monocytes/100 WBC (Bld) 5.9 % Normal 2.0-13.0 AH Workflow SS Comment on above: Performed By: #### A WAYNE, RPR, ABSGEL, CBC, ABOGEL, ADIFF ####[address] [address] Neutrophils/100 WBC (Bld) 72.0 % Normal 50.0-75.0 [facility] Workflow SS Comment on above: Performed By: #### A WAYNE, RPR, ABSGEL, CBC, ABOGEL, ADIFF ####[address] [address] .NEUABSon 02-21-2023 Neutrophil, Absolute 5.9 10 3/mcL Normal 2.3-8.1 [facility] ([place]) Comment on above: Performed By: #### A WAYNE, RPR, ABSGEL, CBC, ABOGEL, ADIFF ####[address] [address] ABO/Rh (Gel)on 02-21-2023 ABO/Rh Interp Positive Invalid Interpretation Code [facility] ([place] Comment on above: Performed By: #### A WAYNE, RPR, ABSGEL, CBC, ABOGEL, ADIFF ####[address] [address] ABS (Gel)on 02-21-2023 ABSC Interp (Gel) Negative Normal [facility] ([place]) Comment on above: Performed By: #### A WAYNE, RPR, ABSGEL, CBC, ABOGEL, ADIFF ####[address] [address] CBCOrdered By: SYSTEM SYSTEM on 02-21-2023 Erythrocyte distribution width (RBC) [Ratio] 15.4 % Normal 11.5-15.5 AH Workflow SS Comment on above: Performed By: #### A WAYNE, RPR, ABSGEL, CBC, ABOGEL, ADIFF ####[place] [address] Hematocrit (Bld) [Volume fraction] 31.8 % Low 34.0-46.0 AH Workflow SS Comment on above: Performed By: #### A WAYNE, RPR, ABSGEL, CBC, ABOGEL, ADIFF ####[place] [address] MCH (RBC) [Entitic mass] 24.4 pg Low 27.0-33.0 AH Workflow SS Comment on above: Performed By: #### A WAYNE, RPR, ABSGEL, CBC, ABOGEL, ADIFF ####[place] [address] MCHC 33.0 G/dL Normal 32.0-36.0 AH Workflow SS Comment on above: Performed By: #### A WAYNE, RPR, ABSGEL, CBC, ABOGEL, ADIFF ####[place] [address] MCV (RBC) [Entitic vol] 74.0 fL Low 80.0-99.0 AH Workflow SS Comment on above: Performed By: #### A WAYNE, RPR, ABSGEL, CBC, ABOGEL, ADIFF ####[place] [address] Platelet mean volume (Bld) [Entitic vol] 11.0 fL High 6.6-10.5 AH Workflow SS Comment on above: Performed By: #### A WAYNE, RPR, ABSGEL, CBC, ABOGEL, ADIFF ####[place] [address] CBCon 02-21-2023 Hgb 10.5 G/dL Low 12.0-16.0 [facility] ([place] Comment on above: Performed By: #### A WAYNE, RPR, ABSGEL, CBC, ABOGEL, ADIFF ####[place] [address] Platelet 119 10 3/mcL Low 150-450 [facility] ([place] Comment on above: Performed By: #### A WAYNE, RPR, ABSGEL, CBC, ABOGEL, ADIFF ####[place] [address] [place] [address] RBC 4.29 10 6/mcL Normal 4.10-5.30 [facility] ([place] Comment on above: Performed By: #### A WAYNE, RPR, ABSGEL, CBC, ABOGEL, ADIFF ####[facility] [place] [address] WBC 8.2 10 3/mcL Normal 4.5-10.8 [facility] ([place] Comment on above: Performed By: #### A WAYNE, RPR, ABSGEL, CBC, ABOGEL, ADIFF ####[facility] [place] [address] LABORATORYOrdered By: Halina Middleton on 02-21-2023 Blood Glucose Testing Reason Routine (02/21/23 10:53 AM) [facility] Work Phone: Glucose [Mass/Vol] 74 mg/dL Normal 70 - 110 mg/dL [facility] Work Phone: ABO and Rh group Nom (Bld) B positive (02/21/23 10:34 AM) [facility] Work Phone: Group B Strep Date Performed [id number] [facility] Work Phone: Group B Strep, External Negative (02/21/23 10:34 AM) [facility] Work Phone: Hepatitis B Date Performed [id number] [facility] Work Phone: Hepatitis B, External Negative (02/21/23 10:34 AM) [facility] Work Phone: HIV Antibodies, External Negative (02/21/23 10:34 AM) [facility] Work Phone: RPR, External Nonreactive (02/21/23 10:34 AM) [facility] Work Phone: Rubella, External Immune (02/21/23 10:34 AM) [facility] Work Phone: LABORATORYOrdered By: Linda Alvarez on 02-21-2023 ABO and Rh group Nom (Bld) Blood group B Rh(D) positive Invalid Interpretation Code AH BB Auto SS Blood group antibody screen Ql Negative ABSC (02/21/23 10:00 AM) Normal AH BB Auto SS LABORATORYOrdered By: [employer] on 02-21-2023 Basophils (Bld) [#/Vol] 0.0 103/mcL Normal 0.0 - 0.3 10^3/mcL AH Workflow SS Eosinophils (Bld) [#/Vol] 0.0 103/mcL Normal 0.0 - 0.7 10^3/mcL AH Workflow SS Hemoglobin (Bld) [Mass/Vol] 10.5 G/dL Low 12.0 - 16.0 G/dL AH Workflow SS Lymphocytes (Bld) [#/Vol] 1.7 103/mcL Normal 0.9 - 4.3 10^3/mcL AH Workflow SS Monocytes (Bld) [#/Vol] 0.5 103/mcL Normal 0.1 - 1.4 10^3/mcL AH Workflow SS Neutrophils (Bld) [#/Vol] 5.9 103/mcL Normal 2.3 - 8.1 10^3/mcL AH Workflow SS Platelets (Bld) [#/Vol] 119 103/mcL Low 150 - 450 10^3/mcL AH Workflow SS RBC (Bld) [#/Vol] 4.29 106/mcL Normal 4.10 - 5.3 0 10^6/mcL AH Workflow SS WBC (Bld) [#/Vol] 8.2 103/mcL Normal 4.5 - 10.8 10^3/mcL AH Workflow SS LABORATORYOrdered By: Miladis Strickland on 02-21-2023 Reagin Ab RPR Ql (S) Non-Reactive 1 (02/21/23 10:00 AM) Normal Non-Reactive AH Man Viro/Sero SS Comment on above: [...] with abnormal serum globulins. 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 Discussed sending in BS log through [employer] for review.. Past Medical History: Past Medical [...] Tablet (20 mg) by mouth daily Vit w/Xe-Dosjovgsh-SI (PNV PO) Take 1 Tablet by mouth [...] trimester 01/17/2023 PLAN OF CARE- Co-Manage of [facility] MD/OB APPOINTMENTS Genetic screening: How often should patient be evaluated? Monthly to 28 weeks, q 2 weeks from 28 to 36 weeks then weekly until delivery. Work restrictions: NA EVALUATION surveillance: Biweekly BPPs Ultrasound: Growth every 4 weeks DELIVERY PLAN Hospital: [facility] C/S at 37.1 weeks Cholestasis of C/S scheduled fro 02/21/2022 @ 1100 GBS culture: per OB Contraception: tubal ligation : Pump and bottle Ped: [facility] [place] Name of baby: Boy (more content not included)... Normal [facility] RPRon 02-17-2023 Reagin Ab RPR Ql (S) Non-Reactive Normal Non-Reactive [facility] ([place]) Comment on above: Result Comment: The RPR [...] A WAYNE, ADIFF, MORPH, RPR, CBC, HIV ####[address] [address] .Auto Diffon 02-16-2023 Basophil, Absolute 0.0 10 3/mcL Normal 0.0-0.3 [facility] ([place]) Comment on above: Performed By: #### A WAYNE, ADIFF, MORPH, RPR, CBC, HIV ####[address] [address] Basophils/100 WBC (Bld) 0.5 % Normal 0.0-2.5 [facility] ([place]) Comment on above: Performed By: #### A WAYNE, ADIFF, MORPH, RPR, CBC, HIV ####[address] [address] Eosinophil, Absolute 0.0 10 3/mcL Normal 0.0-0.7 [facility] ([place]) Comment on above: Performed By: #### A WAYNE, ADIFF, MORPH, RPR, CBC, HIV ####[address] [address] Eosinophils/100 WBC (Bld) 0.1 % Normal 0.0-6.0 [facility] ([place] Comment on above: Performed By: #### A WAYNE, ADIFF, MORPH, RPR, CBC, HIV ####[address] [address] Lymphocyte, Absolute 2.1 10 3/mcL Normal 0.9-4.3 [facility] ([place]) Comment on above: Performed By: #### A WAYNE, ADIFF, MORPH, RPR, CBC, HIV ####[address] [address] Lymphocytes/100 WBC (Bld) 24.7 % Normal 20.0-40.0 [facility] ([place] Comment on above: Performed By: #### A WAYNE, ADIFF, MORPH, RPR, CBC, HIV ####[address] [address] Monocyte, Absolute 0.4 10 3/mcL Normal 0.1-1.4 [facility] ([place]) Comment on above: Performed By: #### A WAYNE, ADIFF, MORPH, RPR, CBC, HIV ####[address] [address] Monocytes/100 WBC (Bld) 4.2 % Normal 2.0-13.0 [facility] ([place] Comment on above: Performed By: #### A WAYNE, ADIFF, MORPH, RPR, CBC, HIV ####[address] [address] Neutrophils/100 WBC (Bld) 70.5 % Normal 50.0-75.0 [facility] ([place] Comment on above: Performed By: #### A WAYNE, ADIFF, MORPH, RPR, CBC, HIV ####[address] [address] .Morphon 02-16-2023 Anisocytosis Ql (Bld) 1+ Normal [facility] ([place]) Comment on above: Performed By: #### A WAYNE, ADIFF, MORPH, RPR, CBC, HIV ####[address] [address] Large Platelets Few Normal [facility] ([place] Comment on above: Performed By: #### A WAYNE, ADIFF, MORPH, RPR, CBC, HIV ####[place] [address] Microcytosis 2+ Normal [facility] ([place] Comment on above: Performed By: #### A WAYNE, ADIFF, MORPH, RPR, CBC, HIV ####[place] [address] Platelet Estimate Slt Decreased Normal [facility] ([place]) Comment on above: Performed By: #### A WAYNE, ADIFF, MORPH, RPR, CBC, HIV ####[place] [address] Polychrom 1+ Normal [facility] ([place] Comment on above: Performed By: #### A WAYNE, ADIFF, MORPH, RPR, CBC, HIV ####[place] [address] .NEUABSon 02-16-2023 Neutrophil, Absolute 6.1 10 3/mcL Normal 2.3-8.1 [facility] ([place] Comment on above: Performed By: #### A WAYNE, ADIFF, MORPH, RPR, CBC, HIV ####[place] [address] CBCon 02-16-2023 Platelet 139 10 3/mcL Low 150-450 [facility] ([place] Comment on above: Performed By: #### A WAYNE, ADIFF, MORPH, RPR, CBC, HIV ####[place] [address] Platelet mean volume (Bld) [Entitic vol] 10.4 fL Normal 6.6-10.5 [facility] ([place] Comment on above: Performed By: #### A WAYNE, ADIFF, MORPH, RPR, CBC, HIV ####[place] [address] Erythrocyte distribution width (RBC) [Ratio] 15.2 % Normal 11.5-15.5 [facility] ([place] Comment on above: Performed By: #### A WAYNE, ADIFF, MORPH, RPR, CBC, HIV ####[place] [address] Hematocrit (Bld) [Volume fraction] 35.5 % Normal 34.0-46.0 [facility] ([place] Comment on above: Performed By: #### A WAYNE, ADIFF, MORPH, RPR, CBC, HIV ####[place] [address] Hgb 11.8 G/dL Low 12.0-16.0 [facility] ([place] Comment on above: Performed By: #### A WAYNE, ADIFF, MORPH, RPR, CBC, HIV ####[place] [address] MCH (RBC) [Entitic mass] 24.5 pg Low 27.0-33.0 [facility] [place] Comment on above: Performed By: #### A WAYNE, ADIFF, MORPH, RPR, CBC, HIV ####[place] [address] MCHC 33.3 G/dL Normal 32.0-36.0 [facility] [place] Comment on above: Performed By: #### A WAYNE, ADIFF, MORPH, RPR, CBC, HIV ####[place] [address] MCV (RBC) [Entitic vol] 73.4 fL Low 80.0-99.0 [facility] ([place] Comment on above: Performed By: #### A WAYNE, ADIFF, MORPH, RPR, CBC, HIV ####[place] [address] RBC 4.83 10 6/mcL Normal 4.10-5.30 [facility] ([place] Comment on above: Performed By: #### A WAYNE, ADIFF, MORPH, RPR, CBC, HIV ####[place] [address] WBC 8.6 10 3/mcL Normal 4.5-10.8 [facility] ([place] Comment on above: Performed By: #### A WAYNE, ADIFF, MORPH, RPR, CBC, HIV ####[address] [address] CURon 02-16-2023 CUR Normal [facility] ([place] HIVon 02-16-2023 HIV 1/2 Ab Non-Reactive Normal Non-Reactive [facility] ([place] Comment on above: Result Comment: Spec andra is negative for anti-HIV-1 and anti-HIV-2. Performed By: #### A WAYNE, ADIFF, MORPH, RPR, CBC, HIV ####[address] [address] .Auto Diffon 02-15-2023 Basophil, Absolute 0.0 10 3/mcL Normal 0.0-0.3 [facility] ([place]) Comment on above: Performed By: #### A BSGEL, ANEU, MORPH, ABOGEL, LD, GFR, CBC, ADIFF, CMP ####[address] [address] Basophils/100 WBC (Bld) 0.5 % Normal 0.0-2.5 [facility] ([place] Comment on above: Performed By: #### A BSGEL, ANEU, MORPH, ABOGEL, LD, GFR, CBC, ADIFF, CMP ####[address] [address] Eosinophil, Absolute 0.0 10 3/mcL Normal 0.0-0.7 [facility] ([place] Comment on above: Performed By: #### A BSGEL, ANEU, MORPH, ABOGEL, LD, GFR, CBC, ADIFF, CMP ####[address] [address] Eosinophils/100 WBC (Bld) 0.2 % Normal 0.0-6.0 [facility] ([place] Comment on above: Performed By: #### A BSGEL, ANEU, MORPH, ABOGEL, LD, GFR, CBC, ADIFF, CMP ####[address] [address] Lymphocyte, Absolute 2.2 10 3/mcL Normal 0.9-4.3 [facility] ([place] Comment on above: Performed By: #### A BSGEL, ANEU, MORPH, ABOGEL, LD, GFR, CBC, ADIFF, CMP ####[address] [address] Lymphocytes/100 WBC (Bld) 29.4 % Normal 20.0-40.0 [facility] ([place] Comment on above: Performed By: #### A BSGEL, ANEU, MORPH, ABOGEL, LD, GFR, CBC, ADIFF, CMP ####[address] [address] Monocyte, Absolute 0.5 10 3/mcL Normal 0.1-1.4 [facility] ([place] Comment on above: Performed By: #### A BSGEL, ANEU, MORPH, ABOGEL, LD, GFR, CBC, ADIFF, CMP ####[address] [address] Monocytes/100 WBC (Bld) 6.8 % Normal 2.0-13.0 [facility] ([place] Comment on above: Performed By: #### A BSGEL, ANEU, MORPH, ABOGEL, LD, GFR, CBC, ADIFF, CMP ####[address] [address] Neutrophils/100 WBC (Bld) 63.1 % Normal 50.0-75.0 [facility] ([place] Comment on above: Performed By: #### A BSGEL, ANEU, MORPH, ABOGEL, LD, GFR, CBC, ADIFF, CMP ####[address] [address] .GFRon 02-15-2023 GFR >60 Normal [facility] ([place]) Comment on above: Result Comment: GFR Population [...] MORPH, ABOGEL, LD, GFR, CBC, ADIFF, CMP ####[address] [address] GFR Non- >60 Normal [facility] ([place] Comment on above: Result Comment: GFR Population [...] MORPH, ABOGEL, LD, GFR, CBC, ADIFF, CMP ####[address] [address] .Morphon 02-15-2023 Anisocytosis Ql (Bld) 1+ Normal [facility] ([place]) Comment on above: Performed By: #### A BSGEL, ANEU, MORPH, ABOGEL, LD, GFR, CBC, ADIFF, CMP ####[address] [address] Microcytosis 2+ Normal [facility] ([place] Comment on above: Performed By: #### A BSGEL, ANEU, MORPH, ABOGEL, LD, GFR, CBC, ADIFF, CMP ####[address] [address] Platelet Estimate Normal Normal [facility] ([place] Comment on above: Performed By: #### A BSGEL, ANEU, MORPH, ABOGEL, LD, GFR, CBC, ADIFF, CMP ####[address] [address] Polychrom 1+ Normal [facility] ([place] Comment on above: Performed By: #### A BSGEL, ANEU, MORPH, ABOGEL, LD, GFR, CBC, ADIFF, CMP ####[address] [address] .NEUABSon 02-15-2023 Neutrophil, Absolute 4.6 10 3/mcL Normal 2.3-8.1 [facility] ([place]) Comment on above: Performed By: #### A BSGEL, ANEU, MORPH, ABOGEL, LD, GFR, CBC, ADIFF, CMP ####[address] [address] ABO/Rh (Gel)on 02-15-2023 ABO/Rh Interp Positive Invalid Interpretation Code [facility] [place] Comment on above: Performed By: #### A BSGEL, ANEU, MORPH, ABOGEL, LD, GFR, CBC, ADIFF, CMP ####[place] [id number] ABS (Gel)on 02-15-2023 ABSC Interp (Gel) Negative Normal [facility] ([place] Comment on above: Performed By: #### A BSGEL, ANEU, MORPH, ABOGEL, LD, GFR, CBC, ADIFF, CMP ####[address] [address] CBCon 02-15-2023 Platelet 133 10 3/mcL Low 150-450 [facility] ([place] Comment on above: Performed By: #### A BSGEL, ANEU, MORPH, ABOGEL, LD, GFR, CBC, ADIFF, CMP ####[address] [address] Platelet mean volume (Bld) [Entitic vol] 11.2 fL High 6.6-10.5 [facility] ([place] Comment on above: Performed By: #### A BSGEL, ANEU, MORPH, ABOGEL, LD, GFR, CBC, ADIFF, CMP ####[place] [address] Erythrocyte distribution width (RBC) [Ratio] 15.1 % Normal 11.5-15.5 [facility] ([place] Comment on above: Performed By: #### A BSGEL, ANEU, MORPH, ABOGEL, LD, GFR, CBC, ADIFF, CMP ####[place] [address] Hematocrit (Bld) [Volume fraction] 32.6 % Low 34.0-46.0 [facility] ([place] Comment on above: Performed By: #### A BSGEL, ANEU, MORPH, ABOGEL, LD, GFR, CBC, ADIFF, CMP ####[place] [address] Hgb 11.2 G/dL Low 12.0-16.0 [facility] ([place] Comment on above: Performed By: #### A BSGEL, ANEU, MORPH, ABOGEL, LD, GFR, CBC, ADIFF, CMP ####[place] [address] MCH (RBC) [Entitic mass] 25.4 pg Low 27.0-33.0 [facility] [place] Comment on above: Performed By: #### A BSGEL, ANEU, MORPH, ABOGEL, LD, GFR, CBC, ADIFF, CMP ####[place] [address] MCHC 34.3 G/dL Normal 32.0-36.0 [facility] ([place] Comment on above: Performed By: #### A BSGEL, ANEU, MORPH, ABOGEL, LD, GFR, CBC, ADIFF, CMP ####[place] [address] MCV (RBC) [Entitic vol] 74.1 fL Low 80.0-99.0 [facility] [place] Comment on above: Performed By: #### A BSGEL, ANEU, MORPH, ABOGEL, LD, GFR, CBC, ADIFF, CMP ####[place] [address] RBC 4.40 10 6/mcL Normal 4.10-5.30 [facility] ([place] Comment on above: Performed By: #### A BSGEL, ANEU, MORPH, ABOGEL, LD, GFR, CBC, ADIFF, CMP ####[place] [address] WBC 7.0 10 3/mcL Normal 4.5-10.8 [facility] ([place] Comment on above: Performed By: #### A BSGEL, ANEU, MORPH, ABOGEL, LD, GFR, CBC, ADIFF, CMP ####[address] [address] CMPon 02-15-2023 Albumin Level 2.1 G/dL Low 3.2-4.8 [facility] ([place] Comment on above: Performed By: #### A BSGEL, ANEU, MORPH, ABOGEL, LD, GFR, CBC, ADIFF, CMP ####[place] [address] Albumin/Globulin [Mass ratio] 0.5 {ratio} Low 0.9-1.6 [facility] ([place] Comment on above: Performed By: #### A BSGEL, ANEU, MORPH, ABOGEL, LD, GFR, CBC, ADIFF, CMP ####[place] [address] ALP [Catalytic activity/Vol] 299 U/L High 38-126 [facility] ([place] Comment on above: Performed By: #### A BSGEL, ANEU, MORPH, ABOGEL, LD, GFR, CBC, ADIFF, CMP ####[address] [address] ALT [Catalytic activity/Vol] 62 U/L High 10-49 [facility] ([place] Comment on above: Performed By: #### A BSGEL, ANEU, MORPH, ABOGEL, LD, GFR, CBC, ADIFF, CMP ####[address] [address] AST [Catalytic activity/Vol] 42 U/L High 8-34 [facility] ([place] Comment on above: Performed By: #### A BSGEL, ANEU, MORPH, ABOGEL, LD, GFR, CBC, ADIFF, CMP ####[address] [address] Bili Total 0.50 mg/dL Normal 0.20-1.20 [facility] ([place] Comment on above: Result Comment: Use of this assay is not recommended for patients undergoing treatment with eltrombopag due to the potential for falsely elevated results. Performed By: #### A BSGEL, ANEU, MORPH, ABOGEL, LD, GFR, CBC, ADIFF, CMP ####[address] [address] BUN/Creatinine Ratio 14.8 ratio Normal 10.0-22.0 [facility] ([place] Comment on above: Performed By: #### A BSGEL, ANEU, MORPH, ABOGEL, LD, GFR, CBC, ADIFF, CMP ####[place] [address] Calcium [Mass/Vol] 8.4 mg/dL Low 8.7-10.4 [facility] ([place]) Comment on above: Performed By: #### A BSGEL, ANEU, MORPH, ABOGEL, LD, GFR, CBC, ADIFF, CMP ####[place] [id number] Chloride [Moles/Vol] 109 mmol/L Normal 98-110 [facility] ([place]) Comment on above: Performed By: #### A BSGEL, ANEU, MORPH, ABOGEL, LD, GFR, CBC, ADIFF, CMP ####[place] [id number] CO2 [Moles/Vol] 23 mmol/L Normal 22-32 [facility] ([place]) Comment on above: Performed By: #### A BSGEL, ANEU, MORPH, ABOGEL, LD, GFR, CBC, ADIFF, CMP ####[place] [address] Creatinine [Mass/Vol] 0.54 mg/dL Normal 0.50-1.20 [facility] ([place]) Comment on above: Performed By: #### A BSGEL, ANEU, MORPH, ABOGEL, LD, GFR, CBC, ADIFF, CMP ####[place] [id number] Electrolyte Balance 8.0 mEq/L Normal 4.0-15.0 [facility] ([place]) Comment on above: Performed By: #### A BSGEL, ANEU, MORPH, ABOGEL, LD, GFR, CBC, ADIFF, CMP ####[address] [address] Globulin 4.0 G/dL High 1.5-3.8 [facility] [facility] ([place] Comment on above: Performed By: #### A BSGEL, ANEU, MORPH, ABOGEL, LD, GFR, CBC, ADIFF, CMP ####[address] [address] Glucose [Mass/Vol] 79 mg/dL Normal 70-110 [facility] ([place]) Comment on above: Performed By: #### A BSGEL, ANEU, MORPH, ABOGEL, LD, GFR, CBC, ADIFF, CMP ####[place] [address] Potassium [Moles/Vol] 4.0 mmol/L Normal 3.5-5.0 [facility] ([place] Comment on above: Performed By: #### A BSGEL, ANEU, MORPH, ABOGEL, LD, GFR, CBC, ADIFF, CMP ####[place] [address] Sodium [Moles/Vol] 140 mmol/L Normal 136-145 [facility] ([place] Comment on above: Performed By: #### A BSGEL, ANEU, MORPH, ABOGEL, LD, GFR, CBC, ADIFF, CMP ####[place] [address] Total Protein 6.1 G/dL Normal 5.7-8.2 [facility] ([place] Comment on above: Result Comment: No te - New Reference Range in effect 19 Performed By: #### A BSGEL, ANEU, MORPH, ABOGEL, LD, GFR, CBC, ADIFF, CMP ####[place] [address] Urea nitrogen [Mass/Vol] 8.0 mg/dL Normal 8.0-22.0 [facility] [place] Comment on above: Performed By: #### A BSGEL, ANEU, MORPH, ABOGEL, LD, GFR, CBC, ADIFF, CMP ####[place] [address] LABORATORYOrdered By: Daren Devi on 02-15-2023 ABO [...] 0.50 mg/dL Normal 0.20 - 1.20 mg/dL AH ADM SS Comment on above: Interpretive Data: U se of this assay is not recommended for patients undergoing treatment with eltrombopag due to the potential for falsely elevated results. Calcium [Mass/Vol] 8.4 mg/dL Low 8.7 - 10. 4 mg/dL AH ADM SS Chloride [Moles/Vol] 109 mmol/L Normal 98 - 11 0 mEq/L AH ADM SS CO2 [Moles/Vol] 23 mmol/L Normal 22 - 32 mEq/L AH ADM SS Creatinine [Mass/Vol] 0.54 mg/dL Normal 0.50 - 1.20 mg/dL AH ADM SS Electrolyte Balance 8.0 mEq/L Normal 4.0 - 15 .0 mEq/L AH ADM SS Eosinophils (Bld) [#/Vol] 0.0 103/mcL Normal 0.0 - 0.7 10^3/mcL AH Workflow SS Eosinophils/100 WBC (Bld) 0.2 % [...] (S/P/Bld) [Vol rate/Area] ml/min/1.73sqm Invalid Interpretation Code [employer] [facility] S Comment on above: Interpretive Data: [...] 4.0 G/dL High 1.5 - 3.8 G/dL ADM SS Glucose [Mass/Vol] 79 mg/dL Normal 70 - 110 mg/dL ADM SS Hematocrit (Bld) [Volume fraction] 32.6 [...] 4.0 mmol/L Normal 3.5 - 5.0 mEq/L ADM SS Protein [Mass/Vol] 6.1 G/dL Normal 5.7 - 8.2 G/dL AH ADM SS Comment on above: Interpretive Data: * *Note - New Reference Range in effect 19 RBC (Bld) [#/Vol] 4.40 106/mcL Normal 4.10 - 5.3 0 10^6/mcL AH Workflow SS Sodium [Moles/Vol] 140 [...] Spec Grav 1.025 (02/15/23 3:56 PM) Normal 1.006-1.029 AH Auto Urine SS UA Specimen Type [...] LDHon 02-15-2023 LDH 279 U/L High 120-246 [facility] [place] Comment on above: Performed By: #### A BSGEL, ANEU, MORPH, ABOGEL, LD, GFR, CBC, ADIFF, CMP ####[place] [address] RPCURon 02-15-2023 U Creatinine 222.9 mg/dL Normal [facility] ([place] Comment on above: Performed By: #### U A, UAMIC, RPCUR ####[place] [address] U Protein 64.1 mg/dL Normal [facility] ([place] Comment on above: Performed By: #### U A, UAMIC, RPCUR ####[place] [address] U Ratio Prot/Creat 0.3 ratio Normal [facility] ([place] Comment on above: Result Comment: resu lt calculated by rule GL_UR_PROT_NOTCALC_OLD(U Protein/U Creatinine) Performed By: #### U A, UAMIC, RPCUR ####[place] [address] UAon 02-15-2023 Color (U) DARK YELLOW Normal [facility] ([place] Comment on above: Performed By: #### U A, UAMIC, RPCUR ####[place] [address] Glucose (U) [Mass/Vol] Negative Normal Negative [facility] ([place] Comment on above: Performed By: #### U A, UAMIC, RPCUR ####[place] [address] Ketones Ql (U) Negative Normal Neg-Trace [facility] ([place] Comment on above: Performed By: #### U A, UAMIC, RPCUR ####[place] [address] UA Appear Turbid Abnormal Clear [facility] ([place] Comment on above: Performed By: #### U A, UAMIC, RPCUR ####[place] [address] UA Blood Negative Normal Neg-Trace [facility] ([place] Comment on above: Performed By: #### U A, UAMIC, RPCUR ####[place] [address] UA Leuk Est Moderate Abnormal Negative [facility] ([place] Comment on above: Performed By: #### U A, UAMIC, RPCUR ####[place] [address] UA Nitrite Negative Normal Negative [facility] ([place] Comment on above: Performed By: #### U A, UAMIC, RPCUR ####[place] [address] UA pH 7.0 Normal 5.0 - 8.0 [facility] ([place] Comment on above: Performed By: #### U A, UAMIC, RPCUR ####[place] [address] UA Protein 30 mg/dL Normal Negative [facility] ([place] Comment on above: Performed By: #### U A, UAMIC, RPCUR ####[place] [address] UA Spec Grav 1.025 Normal 1.006-1.029 [facility] ([place] Comment on above: Performed By: #### U A, UAMIC, RPCUR ####[place] [address] UA Specimen Type Clean Catch Normal [facility] ([place] Comment on above: Performed By: #### U A, UAMIC, RPCUR ####[place] [address] UA Urobilinogen 1.0 E.U./dL Normal 0.2-1.0 [facility] ([place] Comment on above: Performed By: #### U A, UAMIC, RPCUR ####[place] [address] Urobilinogen (U) [Mass/Vol] Negative Normal Neg-Trace [facility] ([place] Comment on above: Performed By: #### U A, UAMIC, RPCUR ####[place] [address] UAMICon 02-15-2023 UA Bacteria 2+ /hpf Abnormal Negative [facility] ([place] Comment on above: Performed By: #### U A, UAMIC, RPCUR ####[place] [address] UA Mucous 1+ /hpf Normal [facility] ([place] Comment on above: Performed By: #### U A, UAMIC, RPCUR ####[place] [address] UA RBC 10-20 Abnormal 0-2 [facility] ([place] Comment on above: Performed By: #### U A, UAMIC, RPCUR ####[place] [address] UA Squam Epithelial 10-20 Normal 0-20 [facility] ([place] Comment on above: Performed By: #### U A, UAMIC, RPCUR ####[place] [address] UA WBC 25-50 Abnormal 0-5 [facility] ([place] Comment on above: Performed By: #### U A, UAMIC, RPCUR ####[place] [address] CTPCRon 02-13-2023 C. trachomatis Interp Normal See CT Interp N [facility] ([place] Comment on above: Result Comment: C. t rachomatis DNA not detected. Specimen is presumptive negative forC. trachomatis.A negative result does not preclude C. trachomatis infection becauseresults depend on adequate specimen collection, absence of inhibitors,and sufficient DNA to be detected.See CT Interp N Performed By: #### C TPCR, NGPCR1 ####[place] [address] C.trachomatis PCR Negative Normal Negative [facility] ([place] Comment on above: Result Comment: Mole cular (PCR) assay performed on the [employer]00 system. Performed By: #### C TPCR, NGPCR1 ####[place] [address] Chlam Source Cervix Normal [facility] ([place] Comment on above: Performed By: #### C TPCR, NGPCR1 ####[place] [address] CURon 02-13-2023 CUR Normal [facility] ([place] [id number] 02-13-2023 GC PCR Source Cervix Normal [facility] ([place] Comment on above: Performed By: #### C TPCR, NGPCR1 ####[place] [address] N. gonorrhoeae (PCR) Negative Normal Negative [facility] ([place] Comment on above: Result Comment: Mole cular (PCR) assay performed on the [employer] 4800 System. Performed By: #### C TPCR, NGPCR1 ####[place] [address] N. gonorrhoeae Interp Normal See NG Interp N [facility] ([place] Comment on above: Result Comment: N. g onorrhoeae DNA not detected. Specimen is presumptive negative forN. gonorrhoeae. A negative result does not preclude Neisseria gonorrhoeaeinfection because results depend on adequate specimen collection, absenceof inhibitors, and sufficient DNA to be detected.See NG Interp N Performed By: #### C TPCR, NGPCR1 ####[place] [address] LABORATORYOrdered By: Aiyana Nathan on 02-12-2023 Appearance [...] Spec Grav 1.010 (02/12/23 3:40 PM) Normal 1.006-1.029 AH Auto Urine SS UA Specimen Type [...] SS UAon 02-12-2023 Color (U) Yellow Normal [facility] ([place] Comment on above: Performed By: #### U A, UAMIC ####[place] [address] Glucose (U) [Mass/Vol] Negative Normal Negative [facility] ([place] Comment on above: Performed By: #### U A, UAMIC ####[place] [address] Ketones Ql (U) Negative Normal Neg-Trace [facility] ([place] Comment on above: Performed By: #### U A, UAMIC ####[place] [address] UA Appear Hazy Abnormal Clear [facility] ([place] Comment on above: Performed By: #### U A, UAMIC ####[place] [address] UA Blood Negative Normal Neg-Trace [facility] ([place] Comment on above: Performed By: #### U A, UAMIC ####[place] [address] UA Leuk Est Trace Normal Negative [facility] ([place] Comment on above: Performed By: #### U A, UAMIC ####[place] [address] UA Nitrite Negative Normal Negative [facility] ([place] Comment on above: Performed By: #### U A, UAMIC ####[place] [address] UA pH 7.5 Normal 5.0 - 8.0 [facility] ([place] Comment on above: Performed By: #### U A, UAMIC ####[place] [address] UA Protein Negative Normal Negative [facility] ([place] Comment on above: Performed By: #### U A, UAMIC ####[place] [address] UA Spec Grav 1.010 Normal 1.006-1.029 [facility] ([place] Comment on above: Performed By: #### U A, UAMIC ####[place] [address] UA Specimen Type Clean Catch Normal [facility] ([place] Comment on above: Performed By: #### U A, UAMIC ####[place] [address] UA Urobilinogen 1.0 E.U./dL Normal 0.2-1.0 [facility] ([place] Comment on above: Performed By: #### U A, UAMIC ####[place] [address] Urobilinogen (U) [Mass/Vol] Negative Normal Neg-Trace [facility] [place] Comment on above: Performed By: #### U A, UAMIC ####[place] [address] UAMICon 02-12-2023 UA Bacteria 3+ /hpf Abnormal Negative [facility] ([place] Comment on above: Performed By: #### U A, UAMIC ####[place] [address] UA RBC 0-2 Normal 0-2 [facility] ([place] Comment on above: Performed By: #### U A, UAMIC ####[place] [address] UA Squam Epithelial 5-10 Normal 0-20 [facility] ([place] Comment on above: Performed By: #### U A, UAMIC ####[place] [address] UA Transitional Epithelial 0-2 Normal [facility] ([place] Comment on above: Performed By: #### U A, UAMIC ####[place] [address] UA WBC 3-5 Normal 0-5 [facility] ([place] Comment on above: Performed By: #### U A, UAMIC ####[place] [address] Progress Noteon 02-11-2023 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 Monthly to 28 weeks, q 2 weeks from 28 to 36 weeks then weekly until delivery. Work restrictions: NA EVALUATION surveillance: Biweekly BPPs Ultrasound: Growth every 4 weeks DELIVERY PLAN Hospital: [facility] C/S at 37.1 weeks Cholestasis of C/S scheduled fro 02/21/2022 @ 1100 GBS culture: per OB Contraception: tubal ligation : Pump and bottle Ped: [facility] Name of baby: Santy Vora Vaccinations: rec [...] crosses the placenta into the fetus without retirement safety data); however, it is considered and acceptable on a selective basis. = Conclusions: She articulates understanding of the foregoing and care plan. 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 Normal [facility] 02-10-2023 CUR Normal [facility] ([place]) LABORATORYOrdered By: Chang varela on 02-10-2023 Blood Glucose Testing Reason Routine (02/10/23 8:20 AM) [facility] Work Phone: Glucose [Mass/Vol] 68 mg/dL Low 70 - 110 mg/dL [facility] Work Phone: LABORATORYOrdered By: Abimbola Puga on 02-10-2023 Glucose [Mass/Vol] 71 mg/dL Normal 70 - 110 mg/dL [facility] Work Phone: .Auto Diffon 02-09-2023 Basophil, Absolute 0.0 10 3/mcL Normal 0.0-0.3 [facility] ([place] Comment on above: Performed By: #### L IP, FIB, ADIFF, PRO, ANEU, CBC, GFR, CMP ####[address] [address] Basophils/100 WBC (Bld) 0.6 % Normal 0.0-2.5 [facility] ([place] Comment on above: Performed By: #### L IP, FIB, ADIFF, PRO, ANEU, CBC, GFR, CMP ####[address] [address] Eosinophil, Absolute 0.0 10 3/mcL Normal 0.0-0.7 [facility] ([place]) Comment on above: Performed By: #### L IP, FIB, ADIFF, PRO, ANEU, CBC, GFR, CMP ####[address] [address] Eosinophils/100 WBC (Bld) 0.1 % Normal 0.0-6.0 [facility] ([place] Comment on above: Performed By: #### L IP, FIB, ADIFF, PRO, ANEU, CBC, GFR, CMP ####[address] [address] Lymphocyte, Absolute 0.8 10 3/mcL Low 0.9-4.3 [facility] ([place] Comment on above: Performed By: #### L IP, FIB, ADIFF, PRO, ANEU, CBC, GFR, CMP ####[address] [address] Lymphocytes/100 WBC (Bld) 11.8 % Low 20.0-40.0 [facility] ([place] Comment on above: Performed By: #### L IP, FIB, ADIFF, PRO, ANEU, CBC, GFR, CMP ####[address] [address] Monocyte, Absolute 0.7 10 3/mcL Normal 0.1-1.4 [facility] ([place] Comment on above: Performed By: #### L IP, FIB, ADIFF, PRO, ANEU, CBC, GFR, CMP ####[address] [address] Monocytes/100 WBC (Bld) 10.9 % Normal 2.0-13.0 [facility] ([place] Comment on above: Performed By: #### L IP, FIB, ADIFF, PRO, ANEU, CBC, GFR, CMP ####[address] [address] Neutrophils/100 WBC (Bld) 76.6 % High 50.0-75.0 [facility] ([place] Comment on above: Performed By: #### L IP, FIB, ADIFF, PRO, ANEU, CBC, GFR, CMP ####[address] [address] .GFRon 02-09-2023 GFR Non- >60 Normal [facility] ([place] Comment on above: Result Comment: GFR Population [...] FIB, ADIFF, PRO, ANEU, CBC, GFR, CMP ####[address] [address] GFR >60 Normal [facility] ([place] Comment on above: Result Comment: GFR Population [...] FIB, ADIFF, PRO, ANEU, CBC, GFR, CMP ####[place] [address] .NEUABSon 02-09-2023 Neutrophil, Absolute 5.0 10 3/mcL Normal 2.3-8.1 [facility] ([place] Comment on above: Performed By: #### L IP, FIB, ADIFF, PRO, ANEU, CBC, GFR, CMP ####[place] [address] APTTon 02-09-2023 aPTT Coag (Bld) [Time] 25.0 s Normal 25.0-35.0 [facility] ([place] Comment on above: Result Comment: For Heparin anticoagulation therapy, the recommendedtherapeutic range is: 54-77 seconds (APTT Correlationwith Anti-Xa therapeutic range of 0.3-0.7 units/ml).PLEASE REFERENCE THE PHARMACY PROTOCOL FOR DOSING. Performed By: #### L IP, FIB, ADIFF, PRO, ANEU, CBC, GFR, CMP ####[place] [address] Heparin dose (APTT) Unknown Normal [facility] ([place] Comment on above: Performed By: #### L IP, FIB, ADIFF, PRO, ANEU, CBC, GFR, CMP ####[place] [address] CBCon 02-09-2023 Erythrocyte distribution width (RBC) [Ratio] 15.3 % Normal 11.5-15.5 [facility] ([place] Comment on above: Performed By: #### L IP, FIB, ADIFF, PRO, ANEU, CBC, GFR, CMP ####[place] [address] Hematocrit (Bld) [Volume fraction] 30.3 % Low 34.0-46.0 [facility] [place] Comment on above: Performed By: #### L IP, FIB, ADIFF, PRO, ANEU, CBC, GFR, CMP ####[place] [address] Hgb 10.1 G/dL Low 12.0-16.0 [facility] [place] Comment on above: Performed By: #### L IP, FIB, ADIFF, PRO, ANEU, CBC, GFR, CMP ####[place] [address] MCH (RBC) [Entitic mass] 25.0 pg Low 27.0-33.0 [facility] ([place] Comment on above: Performed By: #### L IP, FIB, ADIFF, PRO, ANEU, CBC, GFR, CMP ####[place] [address] MCHC 33.2 G/dL Normal 32.0-36.0 [facility] [place] Comment on above: Performed By: #### L IP, FIB, ADIFF, PRO, ANEU, CBC, GFR, CMP ####[place] [address] MCV (RBC) [Entitic vol] 75.3 fL Low 80.0-99.0 [facility] ([place] Comment on above: Performed By: #### L IP, FIB, ADIFF, PRO, ANEU, CBC, GFR, CMP ####[place] [address] Platelet 100 10 3/mcL Low 150-450 [facility] ([place] Comment on above: Performed By: #### L IP, FIB, ADIFF, PRO, ANEU, CBC, GFR, CMP ####[place] [address] Platelet mean volume (Bld) [Entitic vol] 10.5 fL Normal 6.6-10.5 [facility] ([place] Comment on above: Performed By: #### L IP, FIB, ADIFF, PRO, ANEU, CBC, GFR, CMP ####[place] [address] RBC 4.03 10 6/mcL Low 4.10-5.30 [facility] ([place] Comment on above: Performed By: #### L IP, FIB, ADIFF, PRO, ANEU, CBC, GFR, CMP ####[place] [address] WBC 6.5 10 3/mcL Normal 4.5-10.8 [facility] ([place] Comment on above: Performed By: #### L IP, FIB, ADIFF, PRO, ANEU, CBC, GFR, CMP ####[place] [address] CMPon 02-09-2023 Albumin Level 2.2 G/dL Low 3.2-4.8 [facility] ([place] Comment on above: Performed By: #### L IP, FIB, ADIFF, PRO, ANEU, CBC, GFR, CMP ####[place] [address] Albumin/Globulin [Mass ratio] 0.6 {ratio} Low 0.9-1.6 [facility] ([place] Comment on above: Performed By: #### L IP, FIB, ADIFF, PRO, ANEU, CBC, GFR, CMP ####[place] [address] ALP [Catalytic activity/Vol] 260 U/L High 38-126 [facility] ([place] Comment on above: Performed By: #### L IP, FIB, ADIFF, PRO, ANEU, CBC, GFR, CMP ####[id number] [place], [place] [address] ALT [Catalytic activity/Vol] 21 U/L Normal 10-49 [facility] ([place] Comment on above: Performed By: #### L IP, FIB, ADIFF, PRO, ANEU, CBC, GFR, CMP ####[address] [address] AST [Catalytic activity/Vol] 21 U/L Normal 8-34 [facility] ([place] Comment on above: Performed By: #### L IP, FIB, ADIFF, PRO, ANEU, CBC, GFR, CMP ####[address] [address] Bili Total 0.50 mg/dL Normal 0.20-1.20 [facility] ([place] Comment on above: Result Comment: Use of this assay is not recommended for patients undergoing treatment with eltrombopag due to the potential for falsely elevated results. Performed By: #### L IP, FIB, ADIFF, PRO, ANEU, CBC, GFR, CMP ####[place] [address] BUN/Creatinine Ratio 11.1 ratio Normal 10.0-22.0 [facility] ([place] Comment on above: Performed By: #### L IP, FIB, ADIFF, PRO, ANEU, CBC, GFR, CMP ####[place] [address] Calcium [Mass/Vol] 8.5 mg/dL Low 8.7-10.4 [facility] ([place] Comment on above: Performed By: #### L IP, FIB, ADIFF, PRO, ANEU, CBC, GFR, CMP ####[address] [address] Chloride [Moles/Vol] 109 mmol/L Normal 98-110 [facility] ([place] Comment on above: Performed By: #### L IP, FIB, ADIFF, PRO, ANEU, CBC, GFR, CMP ####[address] [address] CO2 [Moles/Vol] 22 mmol/L Normal 22-32 [facility] ([place] Comment on above: Performed By: #### L IP, FIB, ADIFF, PRO, ANEU, CBC, GFR, CMP ####[address] [address] Creatinine [Mass/Vol] 0.54 mg/dL Normal 0.50-1.20 [facility] ([place] Comment on above: Performed By: #### L IP, FIB, ADIFF, PRO, ANEU, CBC, GFR, CMP ####[place] [id number] Electrolyte Balance 9.0 mEq/L Normal 4.0-15.0 [facility] ([place] Comment on above: Performed By: #### L IP, FIB, ADIFF, PRO, ANEU, CBC, GFR, CMP ####[address] [address] Globulin 3.9 G/dL High 1.5-3.8 [facility] ([place] Comment on above: Performed By: #### L IP, FIB, ADIFF, PRO, ANEU, CBC, GFR, CMP ####[place] [address] Glucose [Mass/Vol] 78 mg/dL Normal 70-110 [facility] ([place] Comment on above: Performed By: #### L IP, FIB, ADIFF, PRO, ANEU, CBC, GFR, CMP ####[address] [address] Potassium [Moles/Vol] 3.7 mmol/L Normal 3.5-5.0 [facility] ([place] Comment on above: Performed By: #### L IP, FIB, ADIFF, PRO, ANEU, CBC, GFR, CMP ####[address] [address] Sodium [Moles/Vol] 140 mmol/L Normal 136-145 [facility] ([place] Comment on above: Performed By: #### L IP, FIB, ADIFF, PRO, ANEU, CBC, GFR, CMP ####[place] [address] Total Protein 6.1 G/dL Normal 5.7-8.2 [facility] ([place] Comment on above: Result Comment: No te - New Reference Range in effect 19 Performed By: #### L IP, FIB, ADIFF, PRO, ANEU, CBC, GFR, CMP ####[place] [address] Urea nitrogen [Mass/Vol] 6.0 mg/dL Low 8.0-22.0 [facility] [place] Comment on above: Performed By: #### L IP, FIB, ADIFF, PRO, ANEU, CBC, GFR, CMP ####[place] [address] CVFLURVon 02-09-2023 FLU A PCR Negative Normal Negative [facility] ([place] Comment on above: Result Comment: Note s Performed By: #### C VFLURV ####[place] [address] FLU B PCR Negative Normal Negative [facility] ([place] Comment on above: Result Comment: Note s Performed By: #### C VFLURV ####[place] [address] RSV PCR Negative Normal Negative [facility] ([place] Comment on above: Result Comment: Note s Performed By: #### C VFLURV ####[place] [address] SARS-CoV-2 (COVID-19) RNA JULIANNE+probe Ql (Unsp spec) Positive Abnormal Negative [facility] ([place] Comment on above: Result Comment: This organism causes a reportable disease.Infection Control has been notified.Results have been reported to the [place] [facility].Notes [id number] test has been authorized by FDA under [...] positive results. Performed By: #### C VFLURV ####[address] [address] [place] 02-09-2023 Ferritin [Mass/Vol] 4.9 ng/mL Low 8.0-252.0 [facility] ([place] Comment on above: Performed By: #### F ERR ####[address] [address] FIBon 02-09-2023 Fibrinogen 434 mg/dL Normal 250-560 [facility] ([place] Comment on above: Performed By: #### L IP, FIB, ADIFF, PRO, ANEU, CBC, GFR, CMP ####[address] [address] LABORATORYOrdered By: Kika evangelista on 02-09-2023 Blood Glucose Testing Reason Routine (02/09/23 9:42 PM) [facility] Work Phone: Glucose [Mass/Vol] 83 mg/dL Normal 70 - 110 mg/dL [facility] Work Phone: LABORATORYOrdered By: Medardo Mello on 02-09-2023 Blood Glucose Testing Reason Routine (02/09/23 7:28 PM) [facility] Work Phone: Time of Stated Blood Glucose [phone] [facility] Work Phone: Time of Stated Blood Glucose [phone] [facility] Work Phone: LABORATORYOrdered By: Vlad Silver on 02-09-2023 aPTT Coag (Bld) [Time] 25.0 s Normal 25.0 - 35.0 seconds [facility] Comment on above: Interpretive Data: F or Heparin anticoagulation therapy, the recommended therapeutic range is: 54-77 seconds (APTT Correlation with Anti-Xa therapeutic range of 0.3-0.7 units/ml). PLEASE REFERENCE THE PHARMACY PROTOCOL FOR DOSING. Fibrinogen 434 mg/dL Normal 250 - 560 mg/dL [facility] Heparin dose (APTT) Unknown (02/09/23 1:28 PM) Normal Coagulation S PT Coag (PPP) [Time] 11.6 s Normal 9.0 - 1 4.2 seconds [facility] Comment on above: Interpretive Data: E ffective 08/29/07, Protime results may be affected by some antibiotics (i.e. Ciprofloxacin, Azithromycin, Bactrim) which may potentiate the action of oral anticoagulants, with further increases in Protime/INR. PT International Ratio 1.0 ratio Invalid Interpretation Code [facility] Comment on above: Interpretive Data: [employer] (CHEST, 1992, [id number]) recommended therapeutic range for oral anticoagulant therapy is: LOW RISK: Prophylaxis of venous thrombosis INR: 2.0-3.0 Treatment of pulmonary embolism 2.0-3.0 Prevention of systemic embolism 2.0-3.0 HIGH RISK: Mechanical prosthetic valves 2.5-3.5 LABORATORYOrdered By: Marly Sanchez on 02-09-2023 ABO and Rh group Nom (Bld) B positive (02/09/23 12:52 PM) [facility] Work Phone: Group B Strep Date Performed [id number] [facility] Work Phone: Group B Strep, External Negative (02/09/23 12:52 PM) [facility] Work Phone: Hepatitis B Date Performed [id number] [facility] Work Phone: Hepatitis B, External Negative (02/09/23 12:52 PM) [facility] Work Phone: HIV Antibodies, External Negative (02/09/23 12:52 PM) [facility] Work Phone: RPR, External Nonreactive (02/09/23 12:52 PM) [facility] Work Phone: Rubella, External Immune (02/09/23 12:52 PM) [facility] Work Phone: LABORATORYOrdered By: SYSTEM SYSTEM on 02-09-2023 Albumin BCP dye [Mass/Vol] 2.2 G/dL Low 3.2 - 4.8 G/dL ADM SS Albumin/Globulin [Mass ratio] 0.6 {ratio} Low 0.9 - 1.6 ratio AH ADM SS ALP [Catalytic activity/Vol] 260 U/L High 38 - 126 U/L ADM SS ALT No additional P-5'-P [Catalytic activity/Vol] 21 U/L Normal 10 - 49 U/L AH ADM SS AST [Catalytic activity/Vol] 21 U/L Normal 8 - 34 U/L AH [...] mg/dL Low 8.7 - 10. 4 mg/dL AH ADM SS Chloride [Moles/Vol] 109 mmol/L Normal 98 - 11 0 mEq/L AH ADM SS CO2 [Moles/Vol] 22 mmol/L Normal 22 - 32 mEq/L AH ADM SS Creatinine [Mass/Vol] 0.54 mg/dL Normal 0.50 - 1.20 mg/dL AH ADM SS Electrolyte Balance 9.0 mEq/L Normal 4.0 - 15 .0 mEq/L AH ADM SS Eosinophils (Bld) [#/Vol] 0.0 103/mcL Normal 0.0 - 0.7 10^3/mcL Workflow SS Eosinophils/100 WBC (Bld) 0.1 % Normal 0.0 - 6.0 % Workflow SS Erythrocyte distribution width (RBC) [Ratio] 15.3 % Normal 11.5 - 15.5 % Workflow SS Ferritin [Mass/Vol] 4.9 ng/mL Low 8.0 - 25 2.0 ng/mL ADM SS GFR/1.73 sq M.predicted among [...] 3.9 G/dL High 1.5 - 3.8 G/dL ADM SS Glucose [Mass/Vol] 78 mg/dL Normal 70 - 110 mg/dL ADM SS Hematocrit (Bld) [Volume fraction] 30.3 % Low 34.0 - 46.0 % AH Workflow SS Hemoglobin (Bld) [Mass/Vol] 10.1 G/dL Low 12.0 - 16.0 G/dL AH Workflow SS Lipase [Catalytic activity/Vol] 26 U/L Normal 12 - 53 U/L ADM [...] 3.7 mmol/L Normal 3.5 - 5.0 mEq/L ADM SS Protein [Mass/Vol] 6.1 G/dL Normal 5.7 - 8.2 G/dL ADM SS Comment on above: Interpretive Data: * *Note - New Reference Range in effect 19 RBC (Bld) [#/Vol] 4.03 106/mcL Low 4.10 - 5.3 0 10^6/mcL AH Workflow SS Sodium [Moles/Vol] 140 [...] *ABN* (02/09/23 11:39 AM) Invalid Interpretation Code 1.006-1.029 AH Auto Urine SS UA Specimen Type [...] Spec Grav 1.020 (02/09/23 9:54 AM) Normal 1.006-1.029 AH Auto Urine SS UA Specimen Type [...] s FLUBV RNA JULIANNE+probe Ql (Resp) Negative 10 (02/09/23 10:48 AM) Normal Negative AH Auto Viro/Sero SS Comment on above: Result Comment: [place] [id number] RSV PCR Negative 11 (02/09/23 10:48 AM) Normal Negative AH Auto Viro/Sero SS Comment on above: Result Comment: [place] [id number] SARS-CoV-2 (COVID-19) RNA JULIANNE+probe Ql (Resp) Positive 7, 8 *ABN* (02/09/23 10:48 AM) Invalid Interpretation Code Negative AH Auto Viro/Sero SS Comment on above: Result Comment: This organism causes a reportable disease. Infection Control has been notified. Results have been reported to the [facility]. Notes [id number] Interpretive Data: T his test has been [...] 02-09-2023 Lipase Level 26 U/L Normal 12-53 [facility] Comment on above: Result Comment: No te - New Reference Range in effect 19 Performed By: #### L IP, FIB, ADIFF, PRO, ANEU, CBC, GFR, CMP ####[address] [address] No Panel Informationon 02-09 Culture Urine >100,000 cfu/ml Multiple bacterial morphotypes present. Probable Contamination. Suggest recollection if clinically indicated. [facility] Work Phone: PROon 02-09-2023 INR Coag (PPP) [Relative time] 1.0 {INR} Normal [facility] ([place]) Comment on above: Order Comment: blue top underfilled QNS, called kathi 02/09/2023 12:39:05 EST/gsm Result Comment: [employer] (CHEST, 1992, 102:[id number])recommended therapeutic range for oral anticoagulant therapy is:LOW RISK: Prophylaxis of venous thrombosis INR: 2.0-3.0 Treatment of pulmonary embolism 2.0-3.0 Prevention of systemic embolism 2.0-3.0HIGH RISK: Mechanical prosthetic valves 2.5-3.5 Performed By: #### L IP, FIB, ADIFF, PRO, ANEU, CBC, GFR, CMP ####[place] [address] [place] [address] PT Coag (PPP) [Time] 11.6 s Normal 9.0-14.2 [facility] ([place]) Comment on above: Order Comment: blue top underfilled QNS, called kathi 02/09/2023 12:39:05 EST/gsm Result Comment: Effe ctive 08/29/07, Protime results may be affected by some antibiotics (i.e. Ciprofloxacin, Azithromycin, Bactrim) which may potentiate the action of oral anticoagulants, with further increases in Protime/INR. Performed By: #### L IP, FIB, ADIFF, PRO, ANEU, CBC, GFR, CMP ####[place] [address] [place] [address] UAon 02-09-2023 Color (U) Yellow Normal [facility] ([place] Comment on above: Performed By: #### U AMIC, UA ####[place] [address] [place] [address] Glucose (U) [Mass/Vol] Negative Normal Negative [facility] ([place]) Comment on above: Performed By: #### U AMIC, UA ####[place] [address] [place] [address] Ketones Ql (U) Negative Normal Neg-Trace [facility] ([place]) Comment on above: Performed By: #### U AMIC, UA ####[facility] [place] [address] UA Appear Clear Normal Clear [facility] ([place] Comment on above: Performed By: #### U AMIC, UA ####[facility] [place] [address] UA Blood Large Abnormal Neg-Trace [facility] ([place] Comment on above: Performed By: #### U AMIC, UA ####[facility] [place] [address] UA Leuk Est Trace Normal Negative [facility] ([place] Comment on above: Performed By: #### U AMIC, UA ####[place] [address] UA Nitrite Negative Normal Negative [facility] ([place] Comment on above: Performed By: #### U AMIC, UA ####[place] [address] UA pH 7.5 Normal 5.0 - 8.0 [facility] ([place] Comment on above: Performed By: #### U AMIC, UA ####[place] [address] UA Protein Negative Normal Negative [facility] ([place] Comment on above: Performed By: #### U AMIC, UA ####[place] [address] UA Spec Grav <=1.005 Abnormal 1.006-1.029 [facility] ([place] Comment on above: Performed By: #### U AMIC, UA ####[place] [address] UA Specimen Type Catheter Normal [facility] [place] Comment on above: Performed By: #### U AMIC, UA ####[place] [address] UA Urobilinogen 1.0 E.U./dL Normal 0.2-1.0 [facility] ([place] Comment on above: Performed By: #### U AMIC, UA ####[place] [address] Urobilinogen (U) [Mass/Vol] Negative Normal Neg-Trace [facility] [place] Comment on above: Performed By: #### U AMIC, UA ####[place] [address] Color (U) Yellow Normal [facility] [place] Comment on above: Performed By: #### U A, UAMIC ####[place] [address] Glucose (U) [Mass/Vol] Negative Normal Negative [facility] [place] Comment on above: Performed By: #### U A, UAMIC ####[place] [address] Ketones Ql (U) Negative Normal Neg-Trace [facility] ([place] Comment on above: Performed By: #### U A, UAMIC ####[place] [address] UA Appear Cloudy Abnormal Clear [facility] [place] Comment on above: Performed By: #### U A, UAMIC ####[place] [address] UA Blood Negative Normal Neg-Trace [facility] [place] Comment on above: Performed By: #### U A, UAMIC ####[place] [address] UA Leuk Est Moderate Abnormal Negative [facility] [place] Comment on above: Performed By: #### U A, UAMIC ####[place] [address] UA Nitrite Negative Normal Negative [facility] [place] Comment on above: Performed By: #### U A, UAMIC ####[place] [address] UA pH 7.0 Normal 5.0 - 8.0 [facility] [place] Comment on above: Performed By: #### U A, UAMIC ####[place] [address] UA Protein Trace Normal Negative [facility] ([place] Comment on above: Performed By: #### U A, UAMIC ####[place] [address] UA Spec Grav 1.020 Normal 1.006-1.029 [facility] [place] Comment on above: Performed By: #### U A, UAMIC ####[place] [address] UA Specimen Type Clean Catch Normal [facility] ([place] Comment on above: Performed By: #### U A, UAMIC ####[place] [address] UA Urobilinogen 1.0 E.U./dL Normal 0.2-1.0 [facility] ([place] Comment on above: Performed By: #### U A, UAMIC ####[place] [address] Urobilinogen (U) [Mass/Vol] Negative Normal Neg-Trace [facility] ([place] Comment on above: Performed By: #### U A, UAMIC ####[place] [address] UAMICon 02-09-2023 UA Bacteria 1+ /hpf Abnormal Negative [facility] ([place] Comment on above: Performed By: #### U AMIC, UA ####[place] [address] UA Mucous 1+ /hpf Normal [facility] ([place] Comment on above: Performed By: #### U AMIC, UA ####[place] [address] UA RBC 3-5 Abnormal 0-2 [facility] ([place] Comment on above: Performed By: #### U AMIC, UA ####[place] [address] UA Squam Epithelial 10-20 Normal 0-20 [facility] ([place] Comment on above: Performed By: #### U AMIC, UA ####[place] [address] [place] [address] UA WBC 3-5 Normal 0-5 [facility] ([place] Comment on above: Performed By: #### U AMIC, UA ####[facility] [place] [address] UA Bacteria 4+ /hpf Abnormal Negative [facility] ([place] Comment on above: Performed By: #### U A, UAMIC ####[facility] [place] [address] UA Mucous 2+ /hpf Normal [facility] ([place]) Comment on above: Performed By: #### U A, UAMIC ####[facility] [place] [address] UA RBC Negative Normal 0-2 [facility] ([place] Comment on above: Performed By: #### U A, UAMIC ####[facility] [place] [address] UA Squam Epithelial 50-100 Abnormal 0-20 [facility] ([place] Comment on above: Performed By: #### U A, UAMIC ####[place] [address] [place] [address] UA WBC 0-2 Normal 0-5 [facility] ([place] Comment on above: Performed By: #### U A, UAMIC ####[place] [address] Progress Noteon 02-04-2023 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 ARMSTRONG OFFICE VISIT NOTE DOS: 02/04/2023 02/04/2023 Chief Complaint She presents for review of progress in thus far and for comprehensive review of her maternal -obstetric- risks in this . The reasons for the visit are as highlighted in the concluding summary communication to table lever operator which is my problem-based office review. History [...] trimester 01/17/2023 PLAN OF CARE- Co-Manage of [facility] MD/OB APPOINTMENTS Genetic screening: How often should patient be evaluated? Monthly to 28 weeks, q 2 weeks from 28 to 36 weeks then weekly until delivery. Work restrictions: NA EVALUATION surveillance: Biweekly BPPs Ultrasound: Growth every 4 weeks DELIVERY PLAN Hospital: [facility] C/S at 37.1 weeks Cholestasis of C/S scheduled fro 02/21/2022 @ 1100 GBS culture: per OB Contraception: tubal ligation : Pump and bottle Ped: [facility] Name of baby: Boy- Orange Vaccinations: rec COVID- declined, Flu- declined and [...] crosses the placenta into the fetus without retirement safety data); however, it is considered and acceptable on a selective basis. = Conclusions: She articulates understanding of the foregoing and care plan. Questions were both encouraged and answered and our TALENT PROGRAM MANAGER will review her glycemic control weekly and optimize it 01/28/2023 BS log reviewed from 01/22-01/28. 2 elevated fasting 94 and 91. 2 hr PP 4 elevated value (more content not included)... Normal [facility] Basophil percentageOrdered B y: Tian Gomez on 02-02-2023 WBC (Bld) [#/Vol] 7.6 10*3/uL 4.4-11.0 [facility] Blood erythrocytes count (nu mber/volume)Ordered By: Tian Gomez on 02-02-2023 RBC (Bld) [#/Vol] 4.14 10*6/uL 4.2-5.4 [facility] Blood hemoglobin measurement (mass/volume)Ordered By: Tian Gomez on 02-02-2023 Hemoglobin (Bld) [Mass/Vol] 10.1 g/dL 12.0-15.0 [facility] Blood platelet mean volumeOr dered By: Tian Gomez on 02-02-2023 Platelet mean volume (Bld) [Entitic vol] 13.5 fL 6.2-12.0 [facility] Determination of erythrocyte mean corpuscular volume (MCV)Ordered By: Tian Gomez on 02-02-2023 MCV (RBC) [Entitic vol] 76.8 fL 81-99 [facility] Hematocrit Auto (Bld) [Volum e fraction]Ordered By: Tian Gomez on 02-02-2023 Hematocrit (Bld) [Volume fraction] 31.8 % 37-47 [facility] Laboratory - Chemistry and C hemistry - challengeOrdered By: Tian Gomez on 02-02-2023 ALT [Catalytic activity/Vol] 29 U/L 13-56 [facility] Laboratory - Hematology and Cell countsOrdered By: Tian Gomez on 02-02-2023 Erythrocyte distribution width (RBC) [Entitic vol] 39.2 fL 35.1-43.9 [facility] Erythrocyte distribution width (RBC) [Ratio] 14.3 % 11.6-14.6 [facility] MCH (RBC) [Entitic mass] 24.4 pg 27.0-32.0 [facility] MCHC Auto (RBC) [Mass/Vol]Or dered By: Tian Gomez on 02-02-2023 MCHC (RBC) [Mass/Vol] 31.8 g/dL 32-[address] [facility] No Panel InformationOrdered By: Tian Gomez on 02-02-2023 Estimated Creatinine Clearance Calc 135.18 ml/min [facility] Estimated GFR (MDRD) Amer 180 mL/min >60 [facility] Comment on above: GFR Calc Estimated GFR (MDRD) Non-Af Amer 149 mL/min >60 [facility] Comment on above: Non- GFR Calc Platelets bldOrdered By: Carson Gomez on 02-02-2023 Platelets (Bld) [#/Vol] 145 10*3/uL 150-450 [facility] Serum or plasma creatinine m easurement (mass/volume)Ordered By: Tian Gomez on 02-02-2023 Creatinine [Mass/Vol] 0.54 mg/dL 0.55-1.[address] [facility] Comment on above: The validity of the calculated GFR & GFRAA in patients over 70 years has not been determined. Clinical correlation is essential. Serum or plasma uric acid me asurement (mass/volume)Ordered By: Tian Gomez on 02-02-2023 Urate [Mass/Vol] 4.3 mg/dL 2.6-6.0 [facility] Comment on above: The drugs N-Acetylcy steine and Metamizole may falsely depress this assay. Thin prep Papanicolaou smear with manual screeningOrdered By: Tian Gomez on 02-02-2023 Thin prep Papanicolaou smear with manual screening 25 U/L 15-37 [facility] Urine creatinine measurement (mass/volume)Ordered By: Tian Gomez on 02-02-2023 Creatinine (U) [Mass/Vol] 67.90 mg/dL NO RANGE EST. [facility] Urine protein measurement (m ass/volume)Ordered By: Tian Gomez on 02-02-2023 Protein (U) [Mass/Vol] 15.3 mg/dL 0.0-11.8 [facility] Urine protein/creatinine mas s ratioOrdered By: Tian Gomez on 02-02-2023 Protein/Creatinine (U) [Mass ratio] 225 mg/g CRE 0-200 [facility] CTPCRon 01-28-2023 C. trachomatis Interp Normal See CT Interp N [facility] Comment on above: Result Comment: C. t rachomatis DNA not detected. Specimen is presumptive negative forC. trachomatis.A negative result does not preclude C. trachomatis infection becauseresults depend on adequate specimen collection, absence of inhibitors,and sufficient DNA to be detected.See CT Interp N Performed By: #### C TPCR, NGPCR1, GBSPCR ####[address] [address] C.trachomatis PCR Negative Normal Negative [facility] ([place] Comment on above: Result Comment: Scar hernandezar (PCR) assay performed on the [employer] 4800 system. Performed By: #### C TPCR, NGPCR1, GBSPCR ####[address] [address] Chlam Source Cervix Normal [facility] ([place] Comment on above: Performed By: #### C TPCR, NGPCR1, GBSPCR ####[place] [address] [place] [address] [id number] 01-28-2023 GC PCR Source Cervix Normal [facility] ([place] Comment on above: Performed By: #### C TPCR, NGPCR1, GBSPCR ####[facility] [place] [address] N. gonorrhoeae (PCR) Negative Normal Negative [facility] ([place] Comment on above: Result Comment: Mole cular (PCR) assay performed on the [employer] 4800 System. Performed By: #### C TPCR, NGPCR1, GBSPCR ####[facility] [place] [address] N. gonorrhoeae Interp Normal See NG Interp N [facility] ([place] Comment on above: Result Comment: N. g onorrhoeae DNA not detected. Specimen is presumptive negative forN. gonorrhoeae. A negative result does not preclude Neisseria gonorrhoeaeinfection because results depend on adequate specimen collection, absenceof inhibitors, and sufficient DNA to be detected.See NG Interp N Performed By: #### C TPCR, NGPCR1, GBSPCR ####[place] [address] [place] [address] Progress Noteon 01-28-2023 Room Service Waiter Authentication Interface Message Text [facility] GestationalDiabetes Mellitus [...] Tablet (20 mg) by mouth daily Vit w/Iy-Mowbejcdr-IR (PNV PO) Take 1 Tablet by mouth [...] trimester 01/17/2023 PLAN OF CARE- Co-Manage of [facility] MD/OB APPOINTMENTS Genetic screening: How often should patient be evaluated? Monthly to 28 weeks, q 2 weeks from 28 to 36 weeks then weekly until delivery. Work restrictions: NA EVALUATION surveillance: Biweekly BPPs Ultrasound: Growth every 4 weeks DELIVERY PLAN Hospital: [facility] C/S at 37.1 weeks Cholestasis of C/S scheduled fro 02/21/2022 @ 1100 GBS culture: per OB Contraception: tubal ligation : Pump and bottle Ped: [facility] Name of baby: Boy- Alicia Vaccinations: rec COVID- declined, Flu- declined and [...] and shoulder (more content not included)... Normal [facility] US ABDOMEN LIMITEDon 023 US ABDOMEN LIMITED Normal [facility] ([place]) CURon 01-27-2023 CUR Normal [facility] ([place] GBSPCRon 01-27-2023 Group B Strep (PCR) Negative Normal Negative [facility] ([place] Comment on above: Result Comment: [place] [id number] Performed By: #### C TPCR, NGPCR1, GBSPCR ####[place] [address] Group B Strep PCR Int Normal [facility] ([place] Comment on above: Result Comment: Grou p [...] Performed By: #### C TPCR, NGPCR1, GBSPCR ####[address] [address] .Auto Diffon 01-26-2023 Basophil, Absolute 0.0 10 3/mcL Normal 0.0-0.3 [facility] ([place] Comment on above: Performed By: #### C MP, GFR, CBC, LIP, ANEU, ADIFF ####[place] [address] Basophils/100 WBC (Bld) 0.4 % Normal 0.0-2.5 [facility] ([place] Comment on above: Performed By: #### C MP, GFR, CBC, LIP, ANEU, ADIFF ####[place] [address] Eosinophil, Absolute 0.0 10 3/mcL Normal 0.0-0.7 [facility] ([place]) Comment on above: Performed By: #### C MP, GFR, CBC, LIP, ANEU, ADIFF ####[address] [address] Eosinophils/100 WBC (Bld) 0.2 % Normal 0.0-6.0 [facility] ([place] Comment on above: Performed By: #### C MP, GFR, CBC, LIP, ANEU, ADIFF ####[place] [address] Lymphocyte, Absolute 2.0 10 3/mcL Normal 0.9-4.3 [facility] ([place] Comment on above: Performed By: #### C MP, GFR, CBC, LIP, ANEU, ADIFF ####[address] [address] Lymphocytes/100 WBC (Bld) 22.0 % Normal 20.0-40.0 [facility] ([place] Comment on above: Performed By: #### C MP, GFR, CBC, LIP, ANEU, ADIFF ####[place] [address] [place] [address] Monocyte, Absolute 0.6 10 3/mcL Normal 0.1-1.4 [facility] ([place] Comment on above: Performed By: #### C MP, GFR, CBC, LIP, ANEU, ADIFF ####[address] [address] Monocytes/100 WBC (Bld) 6.3 % Normal 2.0-13.0 [facility] ([place] Comment on above: Performed By: #### C MP, GFR, CBC, LIP, ANEU, ADIFF ####[address] [address] Neutrophils/100 WBC (Bld) 71.1 % Normal 50.0-75.0 [facility] ([place] Comment on above: Performed By: #### C MP, GFR, CBC, LIP, ANEU, ADIFF ####[address] [address] .GFRon 01-26-2023 GFR Non- >60 Normal [facility] ([place] Comment on above: Result Comment: GFR Population [...] C MP, GFR, CBC, LIP, ANEU, ADIFF ####[address] [address] GFR >60 Normal [facility] ([place] Comment on above: Result Comment: GFR Population [...] C MP, GFR, CBC, LIP, ANEU, ADIFF ####[place] [address] .NEUABSon 01-26-2023 Neutrophil, Absolute 6.4 10 3/mcL Normal 2.3-8.1 [facility] ([place] Comment on above: Performed By: #### C MP, GFR, CBC, LIP, ANEU, ADIFF ####[place] [address] CBCon 01-26-2023 Erythrocyte distribution width (RBC) [Ratio] 15.0 % Normal 11.5-15.5 [facility] ([place] Comment on above: Performed By: #### C MP, GFR, CBC, LIP, ANEU, ADIFF ####[place] [address] Hematocrit (Bld) [Volume fraction] 33.0 % Low 34.0-46.0 [facility] ([place] Comment on above: Performed By: #### C MP, GFR, CBC, LIP, ANEU, ADIFF ####[place] [address] Hgb 11.1 G/dL Low 12.0-16.0 [facility] ([place] Comment on above: Performed By: #### C MP, GFR, CBC, LIP, ANEU, ADIFF ####[place] [address] MCH (RBC) [Entitic mass] 25.0 pg Low 27.0-33.0 [facility] ([place] Comment on above: Performed By: #### C MP, GFR, CBC, LIP, ANEU, ADIFF ####[place] [address] MCHC 33.7 G/dL Normal 32.0-36.0 [facility] ([place] Comment on above: Performed By: #### C MP, GFR, CBC, LIP, ANEU, ADIFF ####[place] [address] MCV (RBC) [Entitic vol] 74.1 fL Low 80.0-99.0 [facility] ([place] Comment on above: Performed By: #### C MP, GFR, CBC, LIP, ANEU, ADIFF ####[place] [address] Platelet 132 10 3/mcL Low 150-450 [facility] ([place] Comment on above: Performed By: #### C MP, GFR, CBC, LIP, ANEU, ADIFF ####[place] [address] Platelet mean volume (Bld) [Entitic vol] 10.3 fL Normal 6.6-10.5 [facility] ([place] Comment on above: Performed By: #### C MP, GFR, CBC, LIP, ANEU, ADIFF ####[place] [address] RBC 4.45 10 6/mcL Normal 4.10-5.30 [facility] ([place] Comment on above: Performed By: #### C MP, GFR, CBC, LIP, ANEU, ADIFF ####[place] [address] WBC 9.1 10 3/mcL Normal 4.5-10.8 [facility] ([place] Comment on above: Performed By: #### C MP, GFR, CBC, LIP, ANEU, ADIFF ####[place] [address] CMPon 01-26-2023 Albumin Level 2.3 G/dL Low 3.2-4.8 [facility] ([place] Comment on above: Performed By: #### C MP, GFR, CBC, LIP, ANEU, ADIFF ####[address] [address] Albumin/Globulin [Mass ratio] 0.6 {ratio} Low 0.9-1.6 [facility] ([place] Comment on above: Performed By: #### C MP, GFR, CBC, LIP, ANEU, ADIFF ####[address] [address] ALP [Catalytic activity/Vol] 245 U/L High 38-126 [facility] ([place] Comment on above: Performed By: #### C MP, GFR, CBC, LIP, ANEU, ADIFF ####[address] [address] ALT [Catalytic activity/Vol] 32 U/L Normal 10-49 [facility] ([place] Comment on above: Performed By: #### C MP, GFR, CBC, LIP, ANEU, ADIFF ####[place] [id number] AST [Catalytic activity/Vol] 22 U/L Normal 8-34 [facility] ([place] Comment on above: Performed By: #### C MP, GFR, CBC, LIP, ANEU, ADIFF ####[place] [id number] Bili Total 0.40 mg/dL Normal 0.20-1.20 [facility] ([place] Comment on above: Result Comment: Use of this assay is not recommended for patients undergoing treatment with eltrombopag due to the potential for falsely elevated results. Performed By: #### C MP, GFR, CBC, LIP, ANEU, ADIFF ####[place] [id number] BUN/Creatinine Ratio 16.7 ratio Normal 10.0-22.0 [facility] ([place] Comment on above: Performed By: #### C MP, GFR, CBC, LIP, ANEU, ADIFF ####[address] [address] Calcium [Mass/Vol] 8.8 mg/dL Normal 8.7-10.4 [facility] ([place] Comment on above: Performed By: #### C MP, GFR, CBC, LIP, ANEU, ADIFF ####[address] [address] Chloride [Moles/Vol] 107 mmol/L Normal 98-110 [facility] ([place] Comment on above: Performed By: #### C MP, GFR, CBC, LIP, ANEU, ADIFF ####[address] [address] CO2 [Moles/Vol] 26 mmol/L Normal 22-32 [facility] ([place] Comment on above: Performed By: #### C MP, GFR, CBC, LIP, ANEU, ADIFF ####[address] [address] Creatinine [Mass/Vol] 0.48 mg/dL Low 0.50-1.20 [facility] ([place] Comment on above: Performed By: #### C MP, GFR, CBC, LIP, ANEU, ADIFF ####[address] [address] Electrolyte Balance 4.0 mEq/L Normal 4.0-15.0 [facility] ([place] Comment on above: Performed By: #### C MP, GFR, CBC, LIP, ANEU, ADIFF ####[address] [address] Globulin 4.1 G/dL High 1.5-3.8 [facility] ([place] Comment on above: Performed By: #### C MP, GFR, CBC, LIP, ANEU, ADIFF ####[address] [address] Glucose [Mass/Vol] 121 mg/dL High 70-110 [facility] ([place] Comment on above: Performed By: #### C MP, GFR, CBC, LIP, ANEU, ADIFF ####[address] [address] Potassium [Moles/Vol] 3.9 mmol/L Normal 3.5-5.0 [facility] ([place]) Comment on above: Performed By: #### C MP, GFR, CBC, LIP, ANEU, ADIFF ####[place] [address] Sodium [Moles/Vol] 137 mmol/L Normal 136-145 [facility] ([place]) Comment on above: Performed By: #### C MP, GFR, CBC, LIP, ANEU, ADIFF ####[place] [address] Total Protein 6.4 G/dL Normal 5.7-8.2 [facility] ([place]) Comment on above: Result Comment: No te - New Reference Range in effect 19 Performed By: #### C MP, GFR, CBC, LIP, ANEU, ADIFF ####[place] [address] Urea nitrogen [Mass/Vol] 8.0 mg/dL Normal 8.0-22.0 [facility] ([place] Comment on above: Performed By: #### C MP, GFR, CBC, LIP, ANEU, ADIFF ####[place] [address] CVFLURVon 01-26-2023 FLU A PCR Negative Normal Negative [facility] ([place] Comment on above: Result Comment: Note s Performed By: #### C VFLURV ####[place] [address] FLU B PCR Negative Normal Negative [facility] ([place] Comment on above: Result Comment: Note s Performed By: #### C VFLURV ####[place] [address] RSV PCR Negative Normal Negative [facility] ([place] Comment on above: Result Comment: Note s Performed By: #### C VFLURV ####[place] [address] SARS-CoV-2 (COVID-19) RNA JULIANNE+probe Ql (Unsp spec) Negative Normal Negative [facility] ([place] Comment on above: Result Comment: Note s [id number] test has been authorized by FDA under [...] inaccurate positive results. Performed By: #### C [facility] ####[place] [address] LABORATORYOrdered By: Elizabeth Paula on 01-26-2023 Appearance [...] Spec Grav 1.015 (01/26/23 12:23 PM) Normal 1.006-1.029 AH Auto Urine SS UA Specimen Type [...] Comment on above: Result Comment: [place] [id number] FLUBV RNA JULIANNE+probe Ql (Resp) Negative 7 (01/26/23 11:31 AM) Normal Negative AH Auto Viro/Sero SS Comment on above: Result Comment: [place] [id number] RSV PCR Negative 8 (01/26/23 11:31 AM) Normal Negative AH Auto Viro/Sero SS Comment on above: Result Comment: [place] [id number] SARS-CoV-2 (COVID-19) RNA JULIANNE+probe Ql (Resp) Negative 4, 5 (01/26/23 11:31 AM) Normal Negative AH Auto Viro/Sero SS Comment on above: Result Comment: Note s [id number] Interpretive Data: T his test has been [...] 22 U/L Normal 8 - 34 U/L ADM SS Basophils (Bld) [#/Vol] 0.0 103/mcL Normal 0.0 - 0.3 10^3/mcL Workflow SS Basophils/100 WBC (Bld) 0.4 % Normal 0.0 - 2.5 % Workflow SS Bilirubin [Mass/Vol] 0.40 mg/dL Normal 0.20 - 1.20 mg/dL ADM SS Comment on above: Interpretive Data: U se of this assay is not recommended for patients undergoing treatment with eltrombopag due to the potential for falsely elevated results. Calcium [Mass/Vol] 8.8 mg/dL Normal 8.7 - 10. 4 mg/dL AH ADM SS Chloride [Moles/Vol] 107 mmol/L Normal 98 - 11 0 mEq/L AH ADM SS CO2 [Moles/Vol] 26 mmol/L Normal 22 - 32 mEq/L AH ADM SS Creatinine [Mass/Vol] 0.48 mg/dL Low 0.50 - 1.20 mg/dL AH ADM SS Electrolyte Balance 4.0 mEq/L Normal 4.0 - 15 .0 mEq/L AH ADM SS Eosinophils (Bld) [#/Vol] 0.0 103/mcL Normal 0.0 - 0.7 10^3/mcL Workflow SS Eosinophils/100 WBC (Bld) 0.2 % Normal 0.0 - 6.0 % Workflow SS Erythrocyte distribution width (RBC) [Ratio] 15.0 % Normal 11.5 - 15.5 % Workflow SS GFR/1.73 sq M.predicted among blacks MDRD (S/P/Bld) [Vol rate/Area] ml/min/1.73sqm Invalid Interpretation Code [employer] S Comment on above: Interpretive Data: [...] (S/P/Bld) [Vol rate/Area] ml/min/1.73sqm Invalid Interpretation Code [employer] Chemistry S Comment on above: Interpretive Data: [...] 30 U/L Normal 12 - 53 U/L AH ADM SS Comment on above: Interpretive Data: * *Note - New Reference Range in effect 19 Lymphocytes (Bld) [#/Vol] 2.0 103/mcL Normal 0.9 - 4.3 10^3/mcL AH Workflow SS Lymphocytes/100 WBC (Bld) 22.0 % Normal 20.0 - 40.0 % AH Workflow SS MCH (RBC) [Entitic mass] 25.0 pg Low 27.0 - 33.0 pg AH Workflow SS MCHC 33.7 G/dL Normal 32.0 - 36.0 G/dL AH Workflow SS MCV (RBC) [Entitic vol] 74.1 fL Low 80.0 - 99.0 fL AH Workflow SS Monocytes (Bld) [#/Vol] 0.6 103/mcL Normal 0.1 - 1.4 10^3/mcL AH Workflow SS Monocytes/100 WBC (Bld) 6.3 % Normal 2.0 - 13.0 % AH Workflow SS Neutrophils (Bld) [#/Vol] 6.4 103/mcL Normal 2.3 - 8.1 10^3/mcL AH Workflow SS Neutrophils/100 WBC (Bld) 71.1 % Normal 50.0 - 75.0 % AH Workflow SS Platelet mean volume (Bld) [Entitic vol] 10.3 fL Normal 6.6 - 10.5 fL AH Workflow SS Platelets (Bld) [#/Vol] 132 103/mcL Low 150 - 450 10^3/mcL AH Workflow SS Potassium [Moles/Vol] 3.9 mmol/L Normal 3.5 - 5.0 mEq/L AH ADM SS Protein [Mass/Vol] 6.4 G/dL Normal 5.7 - 8.2 G/dL AH ADM SS Comment on above: Interpretive Data: * *Note - New Reference Range in effect 19 RBC (Bld) [#/Vol] 4.45 106/mcL Normal 4.10 - 5.3 0 10^6/mcL AH Workflow SS Sodium [Moles/Vol] 137 mmol/L Normal 136 - 145 mEq/L AH ADM SS Urea nitrogen [Mass/Vol] 8.0 mg/dL Normal 8.0 - 22.0 mg/dL AH ADM SS Urea nitrogen/Creatinine [Mass ratio] 16.7 ratio Normal 10.0 - 22.0 ratio AH ADM SS WBC (Bld) [#/Vol] 9.1 103/mcL Normal 4.5 - 10.8 10^3/mcL Workflow SS LABORATORYOrdered By: Chang varela on 01-26-2023 Blood Glucose Testing Reason Routine (01/26/23 10:09 AM) [facility] Work Phone: Glucose [Mass/Vol] 123 mg/dL High 70 - 110 mg/dL [facility] Work Phone: LIPon 01-26-2023 Lipase Level 30 U/L Normal 12-53 [facility] ([place] Comment on above: Result Comment: No te - New Reference Range in effect 19 Performed By: #### C MP, GFR, CBC, LIP, ANEU, ADIFF ####[place] [address] UAon 01-26-2023 Color (U) Yellow Normal [facility] ([place] Comment on above: Performed By: #### U A, UAMIC ####[place] [address] Glucose (U) [Mass/Vol] Negative Normal Negative [facility] ([place] Comment on above: Performed By: #### U A, UAMIC ####[place] [address] Ketones Ql (U) Negative Normal Neg-Trace [facility] ([place] Comment on above: Performed By: #### U A, UAMIC ####[place] [address] UA Appear Cloudy Abnormal Clear [facility] ([place] Comment on above: Performed By: #### U A, UAMIC ####[place] [address] UA Blood Negative Normal Neg-Trace [facility] ([place] Comment on above: Performed By: #### U A, UAMIC ####[place] [address] UA Leuk Est Small Abnormal Negative [facility] ([place] Comment on above: Performed By: #### U A, UAMIC ####[place] [address] UA Nitrite Negative Normal Negative [facility] ([place] Comment on above: Performed By: #### U A, UAMIC ####[place] [address] UA pH 7.5 Normal 5.0 - 8.0 [facility] ([place] Comment on above: Performed By: #### U A, UAMIC ####[place] [address] UA Protein Negative Normal Negative [facility] ([place] Comment on above: Performed By: #### U A, UAMIC ####[place] [address] UA Spec Grav 1.015 Normal 1.006-1.029 [facility] ([place] Comment on above: Performed By: #### U A, UAMIC ####[place] [address] UA Specimen Type Clean Catch Normal [facility] ([place] Comment on above: Performed By: #### U A, UAMIC ####[place] [address] UA Urobilinogen 1.0 E.U./dL Normal 0.2-1.0 [facility] ([place] Comment on above: Performed By: #### U A, UAMIC ####[place] [address] Urobilinogen (U) [Mass/Vol] Negative Normal Neg-Trace [facility] ([place] Comment on above: Performed By: #### U A, UAMIC ####[place] [address] UAMICon 01-26-2023 UA Bacteria 4+ /hpf Abnormal Negative [facility] ([place] Comment on above: Performed By: #### U A, UAMIC ####[place] [address] UA RBC Negative Normal 0-2 [facility] ([place] Comment on above: Performed By: #### U A, UAMIC ####[address] [address] UA Squam Epithelial 25-50 Abnormal 0-20 [facility] ([place]) Comment on above: Performed By: #### U A, UAMIC ####[place] [address] [place] [address] UA WBC 3-5 Normal 0-5 [facility] ([place] Comment on above: Performed By: #### U A, UAMIC ####[place] [address] BILEon 01-22-2023 Chenodeoxycholate 1.5 umol/l Normal [facility] ([place] Comment on above: Result Comment: Refe rence Range:All Ages: <5.8 Performed By: #### A WAYNE, CBC, LD, ADIFF, GFR, [id number], CMP ####[place] [address] Cholate 2.2 umol/l High [facility] ([place] Comment on above: Result Comment: Refe rence Range:All Ages: <2.2 Performed By: #### A WAYNE, CBC, LD, ADIFF, GFR, 447063, CMP ####[place] [address] Deoxycholate 0.40 umol/l Normal [facility] ([place] Comment on above: Result Comment: Refe rence Range:All Ages: <3.3 Performed By: #### A WAYNE, CBC, LD, ADIFF, GFR, [id number], CMP ####[place] [address] Total Bile Acids 4.1 umol/l Normal [facility] ([place] Comment on above: Result Comment: This test was developed and its performance characteristicsdetermined by [facility]. It has not been cleared or approvedby the Food and Drug Administration.Reference Range:All Ages: <9.2Performed At: [facility] [address] [place], [place] [id number] Brian F MD Ph:[phone] Performed By: #### A WAYNE, CBC, LD, ADIFF, GFR, 980868, CMP ####[facility] [place] [address] Ursodeoxycholate <0.10 Normal [facility] ([place] Comment on above: Result Comment: Refe rentracy Range:All Ages: <1.9 Performed By: #### A WAYNE, CBC, LD, ADIFF, GFR, 978677, CMP ####[facility] [place] [address] Progress Noteon 01-21-2023 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 Monthly to 28 weeks, q 2 weeks from 28 to 36 weeks then weekly until delivery. Work restrictions: NA EVALUATION surveillance: Biweekly BPPs Ultrasound: Growth every 4 weeks DELIVERY PLAN Hospital: [facility] C/S at 37.1 weeks Cholestasis of C/S scheduled fro 02/21/2022 @ 1100 GBS culture: per OB Contraception: tubal ligation : Pump and bottle Ped: [facility] Name of baby: Boy- Orange Vaccinations: rec COVID- declined, Flu- declined and [...] daily acti (more content not included)... Normal [facility] .Auto Diffon 01-17-2023 Basophil, Absolute 0.0 10 3/mcL Normal 0.0-0.3 [facility] ([place]) Comment on above: Performed By: #### A WAYNE, CBC, LD, ADIFF, GFR, [id number], CMP ####[address] [address] Basophils/100 WBC (Bld) 0.4 % Normal 0.0-2.5 [facility] ([place]) Comment on above: Performed By: #### A WAYNE, CBC, LD, ADIFF, GFR, 659254, CMP ####[place] [address] [place] [address] Eosinophil, Absolute 0.0 10 3/mcL Normal 0.0-0.7 [facility] ([place]) Comment on above: Performed By: #### A WAYNE, CBC, LD, ADIFF, GFR, 492803, CMP ####[place] [address] [place] [address] Eosinophils/100 WBC (Bld) 0.4 % Normal 0.0-6.0 [facility] ([place]) Comment on above: Performed By: #### A WAYNE, CBC, LD, ADIFF, GFR, 935652, CMP ####[address] [address] Lymphocyte, Absolute 1.9 10 3/mcL Normal 0.9-4.3 [facility] ([place]) Comment on above: Performed By: #### A WAYNE, CBC, LD, ADIFF, GFR, 167746, CMP ####[address] [address] Lymphocytes/100 WBC (Bld) 23.6 % Normal 20.0-40.0 [facility] ([place] Comment on above: Performed By: #### A WAYNE, CBC, LD, ADIFF, GFR, 176299, CMP ####[address] [address] Monocyte, Absolute 0.6 10 3/mcL Normal 0.1-1.4 [facility] ([place]) Comment on above: Performed By: #### A WAYNE, CBC, LD, ADIFF, GFR, 149746, CMP ####[address] [address] Monocytes/100 WBC (Bld) 6.9 % Normal 2.0-13.0 [facility] ([place] Comment on above: Performed By: #### A WAYNE, CBC, LD, ADIFF, GFR, 396293, CMP ####[address] [address] Neutrophils/100 WBC (Bld) 68.7 % Normal 50.0-75.0 [facility] ([place] Comment on above: Performed By: #### A WAYNE, CBC, LD, ADIFF, GFR, 020329, CMP ####[address] [address] .GFRon 01-17-2023 GFR >60 Normal [facility] ([place]) Comment on above: Result Comment: GFR Population [...] #### A WAYNE, CBC, LD, ADIFF, GFR, 550660, CMP ####[address] [address] GFR Non- >60 Normal [facility] ([place] Comment on above: Result Comment: GFR Population [...] #### A WAYNE, CBC, LD, ADIFF, GFR, 880452, CMP ####[address] [address] .NEUABSon 01-17-2023 Neutrophil, Absolute 5.5 10 3/mcL Normal 2.3-8.1 [facility] ([place]) Comment on above: Performed By: #### A WAYNE, CBC, LD, ADIFF, GFR, 653783, CMP ####[address] [address] BILEon 01-17-2023 Chenodeoxycholate 1.9 umol/l Normal [facility] ([place] Comment on above: Result Comment: Refe rence Range:All Ages: <5.8 Performed By: #### 5 [id number] ####[facility] [place] [address] Cholate 2.3 umol/l High [facility] ([place] Comment on above: Result Comment: Refe rence Range:All Ages: <2.2 Performed By: #### 5 16175 ####[address] [place], [place] [address] Deoxycholate 0.40 umol/l Normal [facility] ([place] Comment on above: Result Comment: Refe rence Range:All Ages: <3.3 Performed By: #### 5 02188 ####[address] [place], [place] [address] Total Bile Acids 4.6 umol/l Normal [facility] ([place] Comment on above: Result Comment: This test was developed and its performance characteristicsdetermined by [employer]. It has not been cleared or approvedby the Food and Drug Administration.Reference Range:All Ages: <9.2Performed At: [facility] [address] [place], [place] [id number] Brian F MD Ph:[phone] Performed By: #### 5 61964 ####[address] [place], [place] [address] Ursodeoxycholate <0.10 Normal [facility] ([place] Comment on above: Result Comment: Refe rence Range:All Ages: <1.9 Performed By: #### 5 00287 ####S[address]ia [address] [place], [place] [address] CBCon 01-17-2023 Erythrocyte distribution width (RBC) [Ratio] 14.9 % Normal 11.5-15.5 [facility] ([place] Comment on above: Performed By: #### A WAYNE, CBC, LD, ADIFF, GFR, 641853, CMP ####[address] [address] Hematocrit (Bld) [Volume fraction] 35.3 % Normal 34.0-46.0 [facility] ([place] Comment on above: Performed By: #### A WAYNE, CBC, LD, ADIFF, GFR, 255174, CMP ####[address] [address] Hgb 11.8 G/dL Low 12.0-16.0 [facility] ([place] Comment on above: Performed By: #### A WAYNE, CBC, LD, ADIFF, GFR, 987053, CMP ####[place] [address] MCH (RBC) [Entitic mass] 25.4 pg Low 27.0-33.0 [facility] ([place] Comment on above: Performed By: #### A WAYNE, CBC, LD, ADIFF, GFR, 586340, CMP ####[place] [address] MCHC 33.4 G/dL Normal 32.0-36.0 [facility] [place] Comment on above: Performed By: #### A WAYNE, CBC, LD, ADIFF, GFR, 135223, CMP ####[place] [address] MCV (RBC) [Entitic vol] 76.0 fL Low 80.0-99.0 [facility] ([place] Comment on above: Performed By: #### A WAYNE, CBC, LD, ADIFF, GFR, 520205, CMP ####[place] [address] Platelet 148 10 3/mcL Low 150-450 [facility] ([place] Comment on above: Performed By: #### A WAYNE, CBC, LD, ADIFF, GFR, 289661, CMP ####[place] [address] Platelet mean volume (Bld) [Entitic vol] 10.4 fL Normal 6.6-10.5 [facility] ([place] Comment on above: Performed By: #### A WAYNE, CBC, LD, ADIFF, GFR, 566890, CMP ####[place] [address] RBC 4.65 10 6/mcL Normal 4.10-5.30 [facility] ([place] Comment on above: Performed By: #### A WAYNE, CBC, LD, ADIFF, GFR, 763079, CMP ####[place] [address] WBC 7.9 10 3/mcL Normal 4.5-10.8 [facility] [place] Comment on above: Performed By: #### A WAYNE, CBC, LD, ADIFF, GFR, 001126, CMP ####[place] [address] CMPon 01-17-2023 Albumin Level 2.5 G/dL Low 3.2-4.8 [facility] ([place] Comment on above: Performed By: #### A WAYNE, CBC, LD, ADIFF, GFR, 658551, CMP ####[place] [address] Albumin/Globulin [Mass ratio] 0.6 {ratio} Low 0.9-1.6 [facility] ([place] Comment on above: Performed By: #### A WAYNE, CBC, LD, ADIFF, GFR, 853982, CMP ####[place] [address] ALP [Catalytic activity/Vol] 274 U/L High 38-126 [facility] ([place] Comment on above: Performed By: #### A WAYNE, CBC, LD, ADIFF, GFR, 751315, CMP ####[place] [address] ALT [Catalytic activity/Vol] 60 U/L High 10-49 [facility] [place] Comment on above: Performed By: #### A WAYNE, CBC, LD, ADIFF, GFR, 084361, CMP ####[place] [address] AST [Catalytic activity/Vol] 27 U/L Normal 8-34 [facility] [place] Comment on above: Performed By: #### A WAYNE, CBC, LD, ADIFF, GFR, 449045, CMP ####[place] [address] Bili Total 0.40 mg/dL Normal 0.20-1.20 [facility] ([place] Comment on above: Result Comment: Use of this assay is not recommended for patients undergoing treatment with eltrombopag due to the potential for falsely elevated results. Performed By: #### A WAYNE, CBC, LD, ADIFF, GFR, 245796, CMP ####[place] [address] BUN/Creatinine Ratio 13.2 ratio Normal 10.0-22.0 [facility] ([place]) Comment on above: Performed By: #### A WAYNE, CBC, LD, ADIFF, GFR, 698451, CMP ####[place] [address] Calcium [Mass/Vol] 9.4 mg/dL Normal 8.7-10.4 [facility] ([place] Comment on above: Performed By: #### A WAYNE, CBC, LD, ADIFF, GFR, 099709, CMP ####[place] [address] Chloride [Moles/Vol] 106 mmol/L Normal 98-110 [facility] ([place] Comment on above: Performed By: #### A WAYNE, CBC, LD, ADIFF, GFR, 648974, CMP ####[place] [address] CO2 [Moles/Vol] 25 mmol/L Normal 22-32 [facility] [place] Comment on above: Performed By: #### A WAYNE, CBC, LD, ADIFF, GFR, 823615, CMP ####[place] [address] Creatinine [Mass/Vol] 0.53 mg/dL Normal 0.50-1.20 [facility] ([place] Comment on above: Performed By: #### A WAYNE, CBC, LD, ADIFF, GFR, 357101, CMP ####[address] [address] Electrolyte Balance 7.0 mEq/L Normal 4.0-15.0 [facility] ([place] Comment on above: Performed By: #### A WAYNE, CBC, LD, ADIFF, GFR, 190542, CMP ####[place] [address] Globulin 4.3 G/dL High 1.5-3.8 [facility] [place] Comment on above: Performed By: #### A WAYNE, CBC, LD, ADIFF, GFR, 993144, CMP ####[place] [address] Glucose [Mass/Vol] 121 mg/dL High 70-110 [facility] ([place] Comment on above: Performed By: #### A WAYNE, CBC, LD, ADIFF, GFR, 990385, CMP ####[place] [id number] Potassium [Moles/Vol] 4.2 mmol/L Normal 3.5-5.0 [facility] ([place] Comment on above: Performed By: #### A WAYNE, CBC, LD, ADIFF, GFR, 014405, CMP ####[place] [address] Sodium [Moles/Vol] 138 mmol/L Normal 136-145 [facility] ([place] Comment on above: Performed By: #### A WAYNE, CBC, LD, ADIFF, GFR, 560093, CMP ####[place] [address] Total Protein 6.8 G/dL Normal 5.7-8.2 [facility] [place] Comment on above: Result Comment: No te - New Reference Range in effect 19 Performed By: #### A WAYNE, CBC, LD, ADIFF, GFR, 128302, CMP ####[place] [address] Urea nitrogen [Mass/Vol] 7.0 mg/dL Low 8.0-22.0 [facility] [place] Comment on above: Performed By: #### A WAYNE, CBC, LD, ADIFF, GFR, 069871, CMP ####[place] [address] LDHon 01-17-2023 LDH 193 U/L Normal 120-246 [facility] ([place] Comment on above: Performed By: #### A WAYNE, CBC, LD, ADIFF, GFR, 518346, CMP ####[place] [address] RPCURon 01-17-2023 U Creatinine 69.8 mg/dL Normal [facility] ([place] Comment on above: Performed By: #### R PCUR ####[place] [address] U Protein 24.4 mg/dL Normal [facility] ([place] Comment on above: Performed By: #### R PCUR ####[place] [address] U Ratio Prot/Creat 0.3 ratio Normal [facility] ([place]) Comment on above: Result Comment: resu lt calculated by rule GL_UR_PROT_NOTCALC_OLD(U Protein/U Creatinine) Performed By: #### R PCUR ####[place] [address] .Auto Diffon 01-14-2023 Basophil, Absolute 0.1 10 3/mcL Normal 0.0-0.3 [facility] ([place] Comment on above: Performed By: #### C RE, ADIFF, URIC, ANEU, AST, CBC, GFR, ALT ####[place] [address] Basophils/100 WBC (Bld) 0.7 % Normal 0.0-2.5 [facility] ([place] Comment on above: Performed By: #### C RE, ADIFF, URIC, ANEU, AST, CBC, GFR, ALT ####[place] [address] Eosinophil, Absolute 0.0 10 3/mcL Normal 0.0-0.7 [facility] ([place] Comment on above: Performed By: #### C RE, ADIFF, URIC, ANEU, AST, CBC, GFR, ALT ####[place] [address] Eosinophils/100 WBC (Bld) 0.5 % Normal 0.0-6.0 [facility] [place] Comment on above: Performed By: #### C RE, ADIFF, URIC, ANEU, AST, CBC, GFR, ALT ####[place] [address] Lymphocyte, Absolute 2.4 10 3/mcL Normal 0.9-4.3 [facility] ([place] Comment on above: Performed By: #### C RE, ADIFF, URIC, ANEU, AST, CBC, GFR, ALT ####[address] [address] Lymphocytes/100 WBC (Bld) 28.5 % Normal 20.0-40.0 [facility] ([place] Comment on above: Performed By: #### C RE, ADIFF, URIC, ANEU, AST, CBC, GFR, ALT ####[address] [address] Monocyte, Absolute 0.8 10 3/mcL Normal 0.1-1.4 [facility] ([place] Comment on above: Performed By: #### C RE, ADIFF, URIC, ANEU, AST, CBC, GFR, ALT ####[address] [address] Monocytes/100 WBC (Bld) 9.0 % Normal 2.0-13.0 [facility] ([place] Comment on above: Performed By: #### C RE, ADIFF, URIC, ANEU, AST, CBC, GFR, ALT ####[address] [address] Neutrophils/100 WBC (Bld) 61.3 % Normal 50.0-75.0 [facility] ([place] Comment on above: Performed By: #### C RE, ADIFF, URIC, ANEU, AST, CBC, GFR, ALT ####[address] [address] .GFRon 01-14-2023 GFR >60 Normal [facility] ([place] Comment on above: Result Comment: GFR Population [...] ADIFF, URIC, ANEU, AST, CBC, GFR, ALT ####[address] [address] GFR Non- >60 Normal [facility] ([place] Comment on above: Result Comment: GFR Population [...] ADIFF, URIC, ANEU, AST, CBC, GFR, ALT ####[place] [address] .NEUABSon 01-14-2023 Neutrophil, Absolute 5.2 10 3/mcL Normal 2.3-8.1 [facility] ([place] Comment on above: Performed By: #### C RE, ADIFF, URIC, ANEU, AST, CBC, GFR, ALT ####[place] [address] ALT/SGPTon 01-14-2023 ALT [Catalytic activity/Vol] 71 U/L High 10-49 [facility] ([place] Comment on above: Performed By: #### C RE, ADIFF, URIC, ANEU, AST, CBC, GFR, ALT ####[address] [address] Ariel 01-14-2023 AST [Catalytic activity/Vol] 35 U/L High 8-34 [facility] ([place] Comment on above: Performed By: #### C RE, ADIFF, URIC, ANEU, AST, CBC, GFR, ALT ####[place] [address] CBCon 01-14-2023 Erythrocyte distribution width (RBC) [Ratio] 14.9 % Normal 11.5-15.5 [facility] [place] Comment on above: Performed By: #### C RE, ADIFF, URIC, ANEU, AST, CBC, GFR, ALT ####[place] [address] Hematocrit (Bld) [Volume fraction] 34.8 % Normal 34.0-46.0 [facility] [place] Comment on above: Performed By: #### C RE, ADIFF, URIC, ANEU, AST, CBC, GFR, ALT ####[place] [address] Hgb 11.6 G/dL Low 12.0-16.0 [facility] [place] Comment on above: Performed By: #### C RE, ADIFF, URIC, ANEU, AST, CBC, GFR, ALT ####[place] [address] MCH (RBC) [Entitic mass] 25.2 pg Low 27.0-33.0 [facility] [place] Comment on above: Performed By: #### C RE, ADIFF, URIC, ANEU, AST, CBC, GFR, ALT ####[place] [address] MCHC 33.3 G/dL Normal 32.0-36.0 [facility] [place] Comment on above: Performed By: #### C RE, ADIFF, URIC, ANEU, AST, CBC, GFR, ALT ####[place] [address] MCV (RBC) [Entitic vol] 75.5 fL Low 80.0-99.0 [facility] [place] Comment on above: Performed By: #### C RE, ADIFF, URIC, ANEU, AST, CBC, GFR, ALT ####[place] [address] Platelet 145 10 3/mcL Low 150-450 [facility] [place] Comment on above: Performed By: #### C RE, ADIFF, URIC, ANEU, AST, CBC, GFR, ALT ####[place] [address] Platelet mean volume (Bld) [Entitic vol] 10.3 fL Normal 6.6-10.5 [facility] [place] Comment on above: Performed By: #### C RE, ADIFF, URIC, ANEU, AST, CBC, GFR, ALT ####[place] [address] RBC 4.61 10 6/mcL Normal 4.10-5.30 [facility] [place] Comment on above: Performed By: #### C RE, ADIFF, URIC, ANEU, AST, CBC, GFR, ALT ####[place] [address] WBC 8.4 10 3/mcL Normal 4.5-10.8 [facility] ([place] Comment on above: Performed By: #### C RE, ADIFF, URIC, ANEU, AST, CBC, GFR, ALT ####[place] [address] CREon 01-14-2023 Creatinine [Mass/Vol] 0.56 mg/dL Normal 0.50-1.20 [facility] ([place]) Comment on above: Performed By: #### C RE, ADIFF, URIC, ANEU, AST, CBC, GFR, ALT ####[place] [address] Progress Noteon 01-14-2023 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 ARMSTRONG OFFICE VISIT NOTE DOS: 01/14/2023 01/14/2023 Chief Complaint She presents for review of progress in thus far and for comprehensive review of her maternal -obstetric- risks in this . The reasons for the visit are as highlighted in the concluding summary communication to table lever operator which is my problem-based office review. History [...] the placenta into the fetus without terminal make up operator safety data); however, it is considered and acceptable on a selective basis. = Conclusions: She articulates understanding of the foregoing and care plan. Questions were both encouraged and answered and our TALENT PROGRAM MANAGER will review her glycemic control weekly and [...] also utilize Pepcid 20 mg twice daily qdel-kmf-aecxluo E-scribed prescription for: Levemir insulin 20 units at bedtime along with required insulin syringes and needles supply. Our nurse did diabetic teaching today Referrals: Patient prefers to deliver at [place] and thus has embraced [facility] referral and appointment is on January 17, 2023 at 9 AM. Referral to [facility] diabetic teaching has also been done today Scheduled with us: Today I obtain CBC with platelet count and repeat AST/ALT as she has history of recent (more content not included)... Normal [facility] URICon 01-14-2023 Uric Acid Lvl 4.4 mg/dL Normal 3.1-7.8 [facility] ([place] Comment on above: Result Comment: No te - New Reference Range in effect 19 Performed By: #### C RE, ADIFF, URIC, ANEU, AST, CBC, GFR, ALT ####[place] [address] GLFon 01-13-2023 Glucose [Mass/Vol] 120 mg/dL High 83-110 [facility] ([place]) Comment on above: Performed By: #### G LF ####[address] [place], [place] [address] GLUon 01-13-2023 Glucose [Mass/Vol] 176 mg/dL High 70-105 [facility] ([place] Comment on above: Performed By: #### Rio ROBIN ####[address] [place], [place] [address] HEPACon 01-13-2023 Hep A IgM Ab Non-Reactive Normal Non-Reactive [facility] ([place] Comment on above: Performed By: #### H EPAC ####[place] [address] Hep A IgM Ab Int Normal [facility] ([place] Comment on above: Result Comment: No s erological evidence of a current Hepatitis A infection.See Interp Performed By: #### H EPAC ####[place] [address] Hep B Core IgM Ab Non-Reactive Normal Non-Reactive [facility] ([place] Comment on above: Performed By: #### H EPAC ####[place] [address] Hep B Core IgM Ab Int Normal [facility] ([place] Comment on above: Result Comment: Samp les with a value < 0.80 Index are considered nonreactive (negative) for IgM antibodies to hepatitis B core antigen.See Interp Performed By: #### H EPAC ####[place] [address] Hep B Surf Ag Non-Reactive Normal Non-Reactive [facility] [place] Comment on above: Performed By: #### H EPAC ####[place] [address] Hep C Ab Non-Reactive Normal Non-Reactive [facility] ([place] Comment on above: Performed By: #### H EPAC ####[place] [address] Hep C Ab Int Normal [facility] ([place] Comment on above: Result Comment: Nonr eactive: Samples with a value < 0.80 are considered nonreactive (negative) for antibodies to HCV.A negative test result does not exclude the possibility of exposure to or infection with HCV. HCV antibodies may be undetectable in some stages of the infection and in some clinical conditions.See Interp Performed By: #### H [facility] ####[place] [address] LABORATORYOrdered By: SYSTEM SYSTEM on 01-13-2023 Glucose [Mass/Vol] 176 mg/dL High 70 - 105 mg/dL AO ADM SS LABORATORYOrdered By: Brooklyn Morales on 01-13-2023 Glucose [Mass/Vol] 120 mg/dL High 83 - 110 mg/dL AO ADM SS .GFRon 01-12-2023 GFR 143 ml/min/1.73sqm Normal [facility] ([place] Comment on above: Result Comment: GFR Population [...] 15 mL/min/1.73 square meters Performed By: #### G , [facility] ####[address] [place], [place] [address] GFR Non- 118 ml/min/1.73sqm Normal [facility] ([place] Comment on above: Result Comment: GFR Population [...] By: #### Rio ALBARRAN, CMP ####[address] [place], [place] [address] CMPon 01-12-2023 Albumin Level 2.3 G/dL Low 3.5-5.0 [facility] ([place] Comment on above: Performed By: #### Rio ALBARRAN, CMP ####[address] [place], [place] [address] Albumin/Globulin [Mass ratio] 0.5 {ratio} Low 1.1-2.5 [facility] ([place] Comment on above: Performed By: #### Rio ALBARRAN, CMP ####[address] [place], [place] [address] ALP [Catalytic activity/Vol] 276 U/L High 40-135 [facility] ([place] Comment on above: Performed By: #### Rio ALBARRAN, CMP ####[address] [place], [place] [address] ALT [Catalytic activity/Vol] 84 U/L High 14-59 [facility] ([place] Comment on above: Performed By: #### Rio ALBARRAN, CMP ####[address] [place], [place] [address] AST [Catalytic activity/Vol] 35 U/L Normal 10-40 [facility] ([place] Comment on above: Performed By: #### Rio ALBARRAN, CMP ####[address] [place], [place] [address] Bili Total 0.5 mg/dL Normal 0.2-1.0 [facility] ([place] Comment on above: Result Comment: Use of this assay is not recommended for patients undergoing treatment with eltrombopag due to the potential for falsely elevated results. Performed By: #### Rio ALBARRAN, CMP ####[address] [place], [place] [address] BUN/Creatinine Ratio 8 ratio Normal 7-27 [facility] ([place]) Comment on above: Performed By: #### Rio ALBARRAN, CMP ####[address] [place], [place] [address] Calcium [Mass/Vol] 8.5 mg/dL Normal 8.4-10.2 [facility] ([place] Comment on above: Performed By: #### Rio ALBARRAN, CMP ####[address] [place], [place] [address] Chloride [Moles/Vol] 100 mmol/L Normal 98-107 [facility] ([place] Comment on above: Performed By: #### Rio ALBARRAN, CMP ####[address] [place], [place] [address] CO2 [Moles/Vol] 25 mmol/L Normal 22-29 [facility] ([place] Comment on above: Performed By: #### Rio ALBARRAN, CMP ####[address] [place], [place] [address] Creatinine [Mass/Vol] 0.63 mg/dL Normal 0.55-1.02 [facility] ([place] Comment on above: Performed By: #### Rio ALBARRAN, CMP ####[address] [place], [place] [address] Electrolyte Balance 11.0 mEq/L Normal 4.0-15.0 [facility] ([place]) Comment on above: Performed By: #### Rio ALBARRAN, CMP ####[address] [place], [place] [address] Globulin 4.7 G/dL Normal [facility] ([place] Comment on above: Performed By: #### Rio ALBARRAN, CMP ####[address] [place], [place] [address] Glucose [Mass/Vol] 109 mg/dL High 70-105 [facility] ([place] Comment on above: Performed By: #### Rio ALBARRAN, CMP ####[address] [place], [place] [address] Potassium [Moles/Vol] 3.5 mmol/L Normal 3.5-5.1 [facility] ([place] Comment on above: Performed By: #### G , CMP ####[address] [place], [place] [address] Sodium [Moles/Vol] 136 mmol/L Normal 136-145 [facility] ([place] Comment on above: Performed By: #### G , CMP ####[address] [place], [place] [address] Total Protein 7.0 G/dL Normal 6.4-8.2 [facility] ([place] Comment on above: Performed By: #### G , CMP ####[address] [place], [place] [address] Urea nitrogen [Mass/Vol] 5 mg/dL Low 7-18 [facility] ([place] Comment on above: Performed By: #### G , CMP ####[address] [place], [place] [address] LABORATORYOrdered By: Garrett Brower on 01-12-2023 Glucose [Mass/Vol] 132 mg/dL High 70 - 110 mg/dL [facility] Work Phone: Time of Stated Blood Glucose [id number] [facility] Work Phone: LABORATORYOrdered By: SYSTEM SYSTEM [...] IA Ql Non-Reactive (01/12/23 9:16 PM) Normal Non-Reactive AH ADM SS HAV IgM IA Ql No serological evide nce of a current Hepatitis A infection. Invalid Interpretation Code Chemistry S HBV core IgM IA Ql Non-Reactive (01/12/23 9:16 PM) Normal Non-Reactive AH ADM SS HBV core IgM IA Ql Samples with a value < 0.80 Index are considered nonreactive (negative) for IgM antibodies to hepatitis B core antigen. Invalid Interpretation Code Chemistry S HBV surface Ag IA Ql Non-Reactive (01/12/23 9:16 PM) Normal Non-Reactive AH ADM SS HCV Ab IA Ql Non-Reactive (01/12/23 9:16 PM) Normal Non-Reactive AH ADM SS HCV Ab IA Ql [...] Nom (Bld) B positive (01/12/23 9:03 PM) [facility] Work Phone: Group B Strep, External Unknown (01/12/23 9:03 PM) [facility] Work Phone: Hepatitis B Date Performed [id number] [facility] Work Phone: Hepatitis B, External Negative (01/12/23 9:03 PM) [facility] Work Phone: HIV Antibodies, External Unknown (01/12/23 9:03 PM) [facility] Work Phone: RPR, External Nonreactive (01/12/23 9:03 PM) [facility] Work Phone: Rubella, External Immune (01/12/23 9:03 PM) [facility] Work Phone: .GFRon 01-08-2023 GFR 123 ml/min/1.73sqm Normal [facility] ([place] Comment on above: Result Comment: GFR Population [...] Performed By: #### C MP, GFR ####[address] [place], [place] [address] GFR Non- 101 ml/min/1.73sqm Normal [facility] ([place]) Comment on above: Result Comment: GFR Population [...] Performed By: #### C MP, GFR ####[address] [place], [place] [address] CMPon 01-08-2023 Albumin Level 2.3 G/dL Low 3.5-5.0 [facility] ([place] Comment on above: Performed By: #### C MP, GFR ####[address] [place], [place] [address] Albumin/Globulin [Mass ratio] 0.5 {ratio} Low 1.1-2.5 [facility] ([place] Comment on above: Performed By: #### C MP, GFR ####[address] [place], [place] [address] ALP [Catalytic activity/Vol] 279 U/L High 40-135 [facility] ([place] Comment on above: Performed By: #### C MP, GFR ####[address] [place], [place] [address] ALT [Catalytic activity/Vol] 161 U/L High 14-59 [facility] ([place] Comment on above: Performed By: #### C MP, GFR ####[address] [place], [place] [address] AST [Catalytic activity/Vol] 57 U/L High 10-40 [facility] ([place] Comment on above: Performed By: #### C MP, GFR ####[address] [place], [place] [address] Bili Total 0.5 mg/dL Normal 0.2-1.0 [facility] ([place] Comment on above: Result Comment: Use of this assay is not recommended for patients undergoing treatment with eltrombopag due to the potential for falsely elevated results. Performed By: #### C MP, GFR ####[address] [place], [place] [address] BUN/Creatinine Ratio 8 ratio Normal 7-27 [facility] ([place] Comment on above: Performed By: #### C MP, GFR ####[address] [place], [place] [address] Calcium [Mass/Vol] 8.9 mg/dL Normal 8.4-10.2 [facility] ([place] Comment on above: Performed By: #### C MP, GFR ####[address] [place], [place] [address] Chloride [Moles/Vol] 101 mmol/L Normal 98-107 [facility] ([place] Comment on above: Performed By: #### C MP, GFR ####[address] [place], [place] [address] CO2 [Moles/Vol] 23 mmol/L Normal 22-29 [facility] [place] Comment on above: Performed By: #### C MP, GFR ####[address] [place], [place] [address] Creatinine [Mass/Vol] 0.72 mg/dL Normal 0.55-1.02 [facility] ([place] Comment on above: Performed By: #### C MP, GFR ####[address] [place], [place] [address] Electrolyte Balance 13.0 mEq/L Normal 4.0-15.0 [facility] ([place] Comment on above: Performed By: #### C MP, GFR ####[address] [place], [place] [address] Globulin 4.6 G/dL Normal [facility] ([place] Comment on above: Performed By: #### C MP, GFR ####[address] [place], [place] [address] Glucose [Mass/Vol] 172 mg/dL High 70-105 [facility] ([place] Comment on above: Performed By: #### C MP, GFR ####[address] [place], [place] [address] Potassium [Moles/Vol] 4.1 mmol/L Normal 3.5-5.1 [facility] ([place] Comment on above: Performed By: #### C MP, GFR ####[address] [place], [place] [address] Sodium [Moles/Vol] 137 mmol/L Normal 136-145 [facility] ([place] Comment on above: Performed By: #### C MP, GFR ####[address] [place], [place] [address] Total Protein 6.9 G/dL Normal 6.4-8.2 [facility] ([place] Comment on above: Performed By: #### C MP, GFR ####[address] [place], [place] [address] Urea nitrogen [Mass/Vol] 6 mg/dL Low 7-18 [facility] [place] Comment on above: Performed By: #### C MP, GFR ####[address] [place], [place] [address] GLFon 01-08-2023 Glucose [Mass/Vol] 177 mg/dL High 83-110 [facility] ([place] Comment on above: Performed By: #### G LF ####[address] [place], [place] [address] LABORATORYOrdered By: SYSTEM SYSTEM on 01-08-2023 Albumin [...] 01-06-2023 Chenodeoxycholic Acid 7.8 umol/l High 0.0-3.4 [facility] ([place] Comment on above: Performed By: #### C MP, GFR, BILE, HFP ####[address] [place], [place] [address] Cholic Acid 8.8 umol/l High 0.0-1.9 [facility] ([place] Comment on above: Performed By: #### C MP, GFR, BILE, HFP ####[address] [place], [place] [address] Deoxycholic Acid 1.3 umol/l Normal 0.0-2.5 [facility] ([place] Comment on above: Performed By: #### C MP, GFR, BILE, HFP ####[address] [place], [place] [address] Total Bile Acids 18.2 umol/l High 0.0-7.0 [facility] ([place] Comment on above: Result Comment: INTE RPRETIVE INFORMATION: Bile Acids, Fractionated and TotalThis test was developed and its performance characteristics determined by [employer]. It has not been cleared or approved by the [place] Food and Drug Administration. This test was performed in a CLIA certified laboratory and is intended for clinical purposes.Performed By: [address] [address] Director: Froilan Childress MD, PhDCLIA Number: [id number] Performed By: #### C MP, GFR, BILE, HFP ####[address] [place], [place] [address] Ursodeoxycholic Acid 0.3 umol/l Normal 0.0-1.0 [facility] ([place] Comment on above: Performed By: #### C MP, GFR, BILE, HFP ####[address] [place], [place] [address] .Auto Diffon 01-05-2023 Basophil, Absolute 0.0 10 3/mcL Normal 0.0-0.2 [facility] ([place] Comment on above: Performed By: #### H EPAC, GGT ####[place] [address]#### CBC, ADIFF, CMP, ANEU, GFR ####[address] [place], [place] [address] Basophils/100 WBC (Bld) 0.4 % Normal 0.0-2.5 [facility] ([place]) Comment on above: Performed By: #### H EPAC, GGT ####[place] [address]#### CBC, ADIFF, CMP, ANEU, GFR ####[facility] [place], [place] [address] Eosinophil, Absolute 0.1 10 3/mcL Normal 0.0-0.4 [facility] ([place]) Comment on above: Performed By: #### H EPAC, GGT ####[place] [address]#### CBC, ADIFF, CMP, ANEU, GFR ####[facility] [place], [place] [address] Eosinophils/100 WBC (Bld) 0.7 % Normal 0.0-7.0 [facility] ([place] Comment on above: Performed By: #### H EPAC, GGT ####[place] [address]#### CBC, ADIFF, CMP, ANEU, GFR ####[facility] [place], [place] [address] Lymphocyte, Absolute 2.2 10 3/mcL Normal 0.8-3.9 [facility] ([place] Comment on above: Performed By: #### H EPAC, GGT ####[place] [address]#### CBC, ADIFF, CMP, ANEU, GFR ####[facility] [place], [place] [address] Lymphocytes/100 WBC (Bld) 28.3 % Normal 10.0-50.0 [facility] ([place]) Comment on above: Performed By: #### H EPAC, GGT ####[place] [address]#### CBC, ADIFF, CMP, ANEU, GFR ####[address] [address] Monocyte, Absolute 0.6 10 3/mcL Normal 0.2-1.0 [facility] ([place]) Comment on above: Performed By: #### H EPAC, GGT ####[place] [address]#### CBC, ADIFF, CMP, ANEU, GFR ####[address] [address] Monocytes/100 WBC (Bld) 8.2 % Normal 1.7-13.0 [facility] ([place] Comment on above: Performed By: #### H EPAC, GGT ####[place] [address]#### CBC, ADIFF, CMP, ANEU, GFR ####[facility] [place], [place] [address] Neutrophils/100 WBC (Bld) 62.4 % Normal 37.0-80.0 [facility] ([place] Comment on above: Performed By: #### H EPAC, GGT ####[place] [address]#### CBC, ADIFF, CMP, ANEU, GFR ####[address] [place], [place] [address] .GFRon 01-05-2023 GFR 131 ml/min/1.73sqm Normal [facility] ([place] Comment on above: Result Comment: GFR Population [...] meters Performed By: #### H EPAC, GGT ####[place] [address]#### ASHLEY, ADIFF, CMP, ANEU, GFR ####[address] [place], [place] [address] GFR Non- 108 ml/min/1.73sqm Normal [facility] ([place] Comment on above: Result Comment: GFR Population [...] meters Performed By: #### H EPAC, GGT ####[address] [address]#### CBC, ADIFF, CMP, ANEU, GFR ####[facility] [place], [place] [address] .NEUABSon 01-05-2023 Neutrophil, Absolute 4.8 10 3/mcL Normal 2.9-6.2 [facility] ([place] Comment on above: Performed By: #### H EPAC, GGT ####[place] [address]#### CBC, ADIFF, CMP, ANEU, GFR ####[facility] [place] [phone] CBCon 01-05-2023 Erythrocyte distribution width (RBC) [Ratio] 14.7 % High 11.5-14.5 [facility] ([place] Comment on above: Performed By: #### H EPAC, GGT ####[place] [address]#### CBC, ADIFF, CMP, ANEU, GFR ####[place] [facility] [address] [place] [phone] Hematocrit (Bld) [Volume fraction] 33.1 % Low 37.0-47.0 [facility] ([place] Comment on above: Performed By: #### H EPAC, GGT ####[place] [address]#### CBC, ADIFF, CMP, ANEU, GFR ####[address] [place] [phone] Hgb 10.8 G/dL Low 12.0-16.0 [facility] ([place] Comment on above: Performed By: #### H EPAC, GGT ####[place] [address]#### CBC, ADIFF, CMP, ANEU, GFR ####[facility] [facility] [address] [place] [phone] MCH (RBC) [Entitic mass] 24.5 pg Low 27.0-31.2 [facility] ([place] Comment on above: Performed By: #### H EPAC, GGT ####[place] [address]#### CBC, ADIFF, CMP, ANEU, GFR ####[facility] [address] [place], [place] [address] MCHC 32.6 G/dL Low 33.0-37.0 [facility] ([place] Comment on above: Performed By: #### H EPAC, GGT ####[place] [address]#### CBC, ADIFF, CMP, ANEU, GFR ####[facility] [address] [place] [phone] MCV (RBC) [Entitic vol] 75.1 fL Low 80.0-94.0 [facility] [place] Comment on above: Performed By: #### H EPAC, GGT ####[place] [address]#### CBC, ADIFF, CMP, ANEU, GFR ####[facility] [facility] [address] [place] [address] Platelet 159 10 3/mcL Normal 130-400 [facility] ([place] Comment on above: Performed By: #### H EPAC, GGT ####[place] [address]#### CBC, ADIFF, CMP, ANEU, GFR ####[facility] [place] [phone] Platelet mean volume (Bld) [Entitic vol] 9.3 fL Normal 7.4-10.4 [facility] ([place] Comment on above: Performed By: #### H EPAC, GGT ####[place] [address]#### CBC, ADIFF, CMP, ANEU, GFR ####[facility] [facility] [address] [place] [phone] RBC 4.41 10 6/mcL Normal 4.20-5.40 [facility] ([place] Comment on above: Performed By: #### H EPAC, GGT ####[place] [address]#### CBC, ADIFF, CMP, ANEU, GFR ####[place] [address] [place], [place] [address] WBC 7.6 10 3/mcL Normal 4.6-10.8 [facility] ([place] Comment on above: Performed By: #### H EPAC, GGT ####[place] [address]#### CBC, ADIFF, CMP, ANEU, GFR ####[address] [place], [place] [address] CMPon 01-05-2023 Albumin Level 2.1 G/dL Low 3.5-5.0 [facility] ([place] Comment on above: Performed By: #### H EPAC, GGT ####[place] [address]#### CBC, ADIFF, CMP, ANEU, GFR ####[address] [place], [place] [address] Albumin/Globulin [Mass ratio] 0.5 {ratio} Low 1.1-2.5 [facility] ([place] Comment on above: Performed By: #### H EPAC, GGT ####[place] [address]#### CBC, ADIFF, CMP, ANEU, GFR ####[address] [place], [place] [address] ALP [Catalytic activity/Vol] 256 U/L High 40-135 [facility] [place] Comment on above: Performed By: #### H EPAC, GGT ####[place] [address]#### CBC, ADIFF, CMP, ANEU, GFR ####[address] [place], [place] [address] ALT [Catalytic activity/Vol] 169 U/L High 14-59 [facility] ([place] Comment on above: Performed By: #### H EPAC, GGT ####[place] [address]#### CBC, ADIFF, CMP, ANEU, GFR ####[address] [place], [place] [address] AST [Catalytic activity/Vol] 57 U/L High 10-40 [facility] ([place] Comment on above: Performed By: #### H EPAC, GGT ####[place] [address]#### CBC, ADIFF, CMP, ANEU, GFR ####[facility] [address] [place], [place] [address] Bili Total 0.5 mg/dL Normal 0.2-1.0 [facility] [place] Comment on above: Result Comment: Use of this assay is not recommended for patients undergoing treatment with eltrombopag due to the potential for falsely elevated results. Performed By: #### H EPAC, GGT ####[place] [address]#### CBC, ADIFF, CMP, ANEU, GFR ####[facility] [facility] [address] [place], [place] [address] BUN/Creatinine Ratio 9 ratio Normal 7-27 [facility] ([place] Comment on above: Performed By: #### H EPAC, GGT ####[place] [address]#### CBC, ADIFF, CMP, ANEU, GFR ####[facility] [facility] [address] [place], [place] [address] Calcium [Mass/Vol] 8.5 mg/dL Normal 8.4-10.2 [facility] ([place] Comment on above: Performed By: #### H EPAC, GGT ####[place] [address]#### CBC, ADIFF, CMP, ANEU, GFR ####[facility] [address] [place], [place] [address] Chloride [Moles/Vol] 103 mmol/L Normal 98-107 [facility] ([place] Comment on above: Performed By: #### H EPAC, GGT ####[place] [address]#### CBC, ADIFF, CMP, ANEU, GFR ####[facility] [facility] [address] [place], [place] [address] CO2 [Moles/Vol] 22 mmol/L Normal 22-29 [facility] [place] Comment on above: Performed By: #### H EPAC, GGT ####[address] [address]#### CBC, ADIFF, CMP, ANEU, GFR ####[facility] [facility] [address] [place], [place] [address] Creatinine [Mass/Vol] 0.68 mg/dL Normal 0.55-1.02 [facility] ([place] Comment on above: Performed By: #### H EPAC, GGT ####[place] [address]#### CBC, ADIFF, CMP, ANEU, GFR ####[facility] [place], [place] [address] Electrolyte Balance 10.0 mEq/L Normal 4.0-15.0 [facility] ([place] Comment on above: Performed By: #### H EPAC, GGT ####[place] [address]#### CBC, ADIFF, CMP, ANEU, GFR ####[facility] [place], [place] [address] Globulin 4.3 G/dL Normal [facility] ([place] Comment on above: Performed By: #### H EPAC, GGT ####[place] [address]#### CBC, ADIFF, CMP, ANEU, GFR ####[facility] [place], [place] [address] Glucose [Mass/Vol] 95 mg/dL Normal 70-105 [facility] ([place] Comment on above: Performed By: #### H EPAC, GGT ####[place] [address]#### CBC, ADIFF, CMP, ANEU, GFR ####[facility] [facility] [address] [place], [place] [address] Potassium [Moles/Vol] 4.0 mmol/L Normal 3.5-5.1 [facility] ([place] Comment on above: Performed By: #### H EPAC, GGT ####[place] [address]#### CBC, ADIFF, CMP, ANEU, GFR ####[facility] [place], [place] [address] Sodium [Moles/Vol] 135 mmol/L Low 136-145 [facility] ([place] Comment on above: Performed By: #### H EPAC, GGT ####[place] [address]#### CBC, ADIFF, CMP, ANEU, GFR ####[facility] [place], [place] [address] Total Protein 6.4 G/dL Normal 6.4-8.2 [facility] [place] Comment on above: Performed By: #### H EPAC, GGT ####[place] [address]#### CBC, ADIFF, CMP, ANEU, GFR ####[place] [address] [place], [place] [address] Urea nitrogen [Mass/Vol] 6 mg/dL Low 7-18 [facility] [place] Comment on above: Performed By: #### H EPAC, GGT ####[place] [address]#### CBC, ADIFF, CMP, ANEU, GFR ####[facility] [place], [place] [address] GGTon 01-05-2023 Gamma GT 35 U/L Normal 5-55 [facility] ([place] Comment on above: Performed By: #### H EPAC, GGT ####[place] [address]#### CBC, ADIFF, CMP, ANEU, GFR ####[facility] [place], [place] [address] HEPACon 01-05-2023 Hep A IgM Ab Non-Reactive Normal Non-Reactive [facility] ([place] Comment on above: Performed By: #### H EPAC, GGT ####[place] [address]#### CBC, ADIFF, CMP, ANEU, GFR ####[facility] [place] [address] Hep A IgM Ab Int Normal [facility] ([place] Comment on above: Result Comment: No s erological evidence of a current Hepatitis A infection.See Interp Performed By: #### H EPAC, GGT ####[place] [address]#### CBC, ADIFF, CMP, ANEU, GFR ####Sophia [address] [place] [address] Hep B Core IgM Ab Non-Reactive Normal Non-Reactive [facility] ([place]) Comment on above: Performed By: #### H EPAC, GGT ####[place] [address]#### CBC, ADIFF, CMP, ANEU, GFR ####[facility] [place] [place] [address] Hep B Core IgM Ab Int Normal [facility] ([place]) Comment on above: Result Comment: Samp les with a value < 0.80 Index are considered nonreactive (negative) for IgM antibodies to hepatitis B core antigen.See Interp Performed By: #### H EPAC, GGT ####[place] [address]#### CBC, ADIFF, CMP, ANEU, GFR ####[facility] [place] [place] [address] Hep B Surf Ag Non-Reactive Normal Non-Reactive [facility] ([place] Comment on above: Performed By: #### H EPAC, GGT ####[place] [address]#### CBC, ADIFF, CMP, ANEU, GFR ####Sophia [address] [place] [address] Hep C Ab Non-Reactive Normal Non-Reactive [facility] ([place] Comment on above: Performed By: #### H EPAC, GGT ####[place] [address]#### CBC, ADIFF, CMP, ANEU, GFR ####[facility] [place] [place] [address] Hep C Ab Int Normal [facility] ([place] Comment on above: Result Comment: Nonr eactive: Samples with a value < 0.80 are considered nonreactive (negative) for antibodies to HCV.A negative test result does not exclude the possibility of exposure to or infection with HCV. HCV antibodies may be undetectable in some stages of the infection and in some clinical conditions.See Interp Performed By: #### H EPAC, GGT ####[place] [address]#### CBC, ADIFF, CMP, ANEU, GFR ####Sophia [address] [place], [place] [address] .GFRon 01-04-2023 GFR 133 ml/min/1.73sqm [facility] ([place]) Comment on above: Result Comment: GFR Population [...] Performed By: #### C MP, GFR ####Sophia [address] [place], [place] [address] GFR Non- 110 ml/min/1.73sqm Normal [facility] ([place] Comment on above: Result Comment: GFR Population [...] By: #### C MP, GFR ####[facility] [place] [place], [place] [address] CMPon 01-04-2023 Albumin Level 2.4 G/dL Low 3.5-5.0 [facility] ([place] Comment on above: Performed By: #### C MP, GFR ####Sophia [place] [place], [place] [address] Albumin/Globulin [Mass ratio] 0.5 {ratio} Low 1.1-2.5 [facility] ([place] Comment on above: Performed By: #### C MP, GFR ####[facility] [place] [place], [place] [address] ALP [Catalytic activity/Vol] 272 U/L High 40-135 [facility] ([place] Comment on above: Performed By: #### C MP, GFR ####[facility] [place] [place], [place] [address] ALT [Catalytic activity/Vol] 192 U/L High 14-59 [facility] ([place] Comment on above: Performed By: #### C MP, GFR ####[facility] [place] [place], [place] [address] AST [Catalytic activity/Vol] 74 U/L High 10-40 [facility] ([place] Comment on above: Performed By: #### C MP, GFR ####[facility] [place] [place], [place] [address] Bili Total 0.5 mg/dL Normal 0.2-1.0 [facility] ([place] Comment on above: Result Comment: Use of this assay is not recommended for patients undergoing treatment with eltrombopag due to the potential for falsely elevated results. Performed By: #### C MP, GFR ####[facility] [place] [place], [place] [address] BUN/Creatinine Ratio 9 ratio Normal 7-27 [facility] ([place]) Comment on above: Performed By: #### C MP, GFR ####Sophia [address] [place], [place] [address] Calcium [Mass/Vol] 8.6 mg/dL Normal 8.4-10.2 [facility] ([place] Comment on above: Performed By: #### C MP, GFR ####Sophia [address] [place], [place] [address] Chloride [Moles/Vol] 102 mmol/L Normal 98-107 [facility] ([place]) Comment on above: Performed By: #### C MP, GFR ####[facility] [place] [place], [place] [address] CO2 [Moles/Vol] 22 mmol/L Normal 22-29 [facility] ([place] Comment on above: Performed By: #### C MP, GFR ####[facility] [place] [place], [place] [address] Creatinine [Mass/Vol] 0.67 mg/dL Normal 0.55-1.02 [facility] ([place]) Comment on above: Performed By: #### C MP, GFR ####[facility] [place] [place], [place] [address] Electrolyte Balance 19.0 mEq/L High 4.0-15.0 [facility] ([place]) Comment on above: Performed By: #### C MP, GFR ####[facility] [place] [place], [place] [address] Globulin 4.6 G/dL Normal [facility] ([place] Comment on above: Performed By: #### C MP, GFR ####[facility] [place] [place], [place] [address] Glucose [Mass/Vol] 146 mg/dL High 70-105 [facility] ([place] Comment on above: Performed By: #### C MP, GFR ####[facility] [place] [place], [place] [address] Potassium [Moles/Vol] 3.8 mmol/L Normal 3.5-5.1 [facility] ([place] Comment on above: Performed By: #### C MP, GFR ####Sophia [address] [place], [place] [address] Sodium [Moles/Vol] 143 mmol/L Normal 136-145 [facility] ([place] Comment on above: Performed By: #### C MP, GFR ####Sophia [address] [place], [place] [address] Total Protein 7.0 G/dL Normal 6.4-8.2 [facility] ([place] Comment on above: Performed By: #### C MP, GFR ####Sophia [address] [place], [place] [address] Urea nitrogen [Mass/Vol] 6 mg/dL Low 7-18 [facility] ([place] Comment on above: Performed By: #### C MP, GFR ####Sophiagary [address] [place], [place] [address] RPCURon 01-04-2023 U Creatinine 259.6 mg/dL High 28.0-117.0 [facility] ([place] Comment on above: Order Comment: obtai n sample via catheter Performed By: #### R PCUR ####Sophia [address] [place], [place] [address] U Protein 29 mg/dL High 0-11 [facility] ([place] Comment on above: Order Comment: obtai n sample via catheter Performed By: #### R PCUR ####Sophia [address] [place], [place] [address] U Ratio Prot/Creat 0.1 ratio Normal [facility] ([place]) Comment on above: Order Comment: obtai n sample via catheter Result Comment: resu lt calculated by rule GL_UR_PROT_NOTCALC_OLD(U Protein/U Creatinine) Performed By: #### R PCUR ####Sophiagary [address] [place], [place] [address] URICon 01-04-2023 Uric Acid Lvl 3.5 mg/dL Normal 2.6-6.2 [facility] ([place] Comment on above: Performed By: #### U ANISA ####[facility] [place] [place], [place] [address] US ABDOMEN LIMITEDon 023 US ABDOMEN LIMITED Normal [facility] ([place]) .GFRon 01-03-2023 GFR 123 ml/min/1.73sqm Normal [facility] ([place] Comment on above: Result Comment: GFR Population [...] C MP, GFR, BILE, HFP ####Sophia [place] [place], [place] [address] GFR Non- 101 ml/min/1.73sqm Normal [facility] ([place] Comment on above: Result Comment: GFR Population [...] C MP, GFR, BILE, HFP ####[facility] [place] [place], [place] [address] CMPon 01-03-2023 BUN/Creatinine Ratio 7 ratio Normal 7-27 [facility] ([place]) Comment on above: Performed By: #### C MP, GFR, BILE, HFP ####Sophia [place] [place], [place] [address] CMPOrdered By: SYSTEM SYSTEM on 01-03-2023 Calcium [Mass/Vol] 8.8 mg/dL Normal 8.4-10.2 AO ADM SS Comment on above: Performed By: #### C MP, GFR, BILE, HFP ####[facility] [place] [place], [place] [address] Chloride [Moles/Vol] 102 mmol/L Normal 98-107 AO A DM SS Comment on above: Performed By: #### C MP, GFR, BILE, HFP ####[facility] [place] [place], [place] [address] CO2 [Moles/Vol] 24 mmol/L Normal 22-29 AO ADM SS Comment on above: Performed By: #### C MP, GFR, BILE, HFP ####[facility]ia [place] [place], [place] [address] Creatinine [Mass/Vol] 0.72 mg/dL Normal 0.55-1.02 AO ADM SS Comment on above: Performed By: #### C MP, GFR, BILE, HFP ####[facility] [place] [place], [place] [address] Electrolyte Balance 12.0 mEq/L Normal 4.0-15.0 AO AD M SS Comment on above: Performed By: #### C MP, GFR, BILE, HFP ####[facility] [place] [place], [place] [address] Glucose [Mass/Vol] 104 mg/dL Normal 70-105 AO ADM SS Comment on above: Performed By: #### C MP, GFR, BILE, HFP ####[facility] [place] [place], [place] [address] Potassium [Moles/Vol] 3.9 mmol/L Normal 3.5-5.1 AO ADM SS Comment on above: Performed By: #### C MP, GFR, BILE, HFP ####[facility] [place] [place], [place] [address] Sodium [Moles/Vol] 138 mmol/L Normal 136-145 AO ADM SS Comment on above: Performed By: #### C MP, GFR, BILE, HFP ####[facility] [place] [place], [place] [address] Urea nitrogen [Mass/Vol] 5 mg/dL Low 7-18 AO ADM SS Comment on above: Performed By: #### C MP, GFR, BILE, HFP ####[facility] [place] [place], [place] [address] HFPon 01-03-2023 Bili Indirect 0.3 mg/dL Normal [facility] ([place] Comment on above: Performed By: #### C MP, GFR, BILE, HFP ####Sophia [address] [place], [place] [address] Albumin Level 2.4 G/dL Low 3.5-5.0 [facility] ([place]) Comment on above: Performed By: #### C MP, GFR, BILE, HFP ####[place] [place], [place] [address] ALT [Catalytic activity/Vol] 200 U/L High 14-59 [facility] ([place] Comment on above: Performed By: #### C MP, GFR, BILE, HFP ####Sophia [address] [place], [place] [address] AST [Catalytic activity/Vol] 82 U/L High 10-40 [facility] ([place] Comment on above: Performed By: #### C MP, GFR, BILE, HFP ####[place] [place], [place] [address] Bili Direct 0.3 mg/dL High 0.0-0.2 [facility] ([place] Comment on above: Result Comment: Use of this assay is not recommended for patients undergoing treatment with eltrombopag due to the potential for falsely elevated results. Performed By: #### C MP, GFR, BILE, HFP ####[facility] [place] [place], [place] [address] Bili Total 0.6 mg/dL Normal 0.2-1.0 [facility] ([place] Comment on above: Result Comment: Use of this assay is not recommended for patients undergoing treatment with eltrombopag due to the potential for falsely elevated results. Performed By: #### C MP, GFR, BILE, HFP ####[facility] [place] [place], [place] [address] Total Protein 7.5 G/dL Normal 6.4-8.2 [facility] ([place] Comment on above: Performed By: #### C MP, GFR, BILE, HFP ####Sophia [address] [place], [place] [address] HFPOrdered By: SYSTEM SYSTEM on 01-03-2023 Albumin/Globulin [Mass ratio] 0.5 {ratio} Low 1.1-2.5 AO ADM SS Comment on above: Performed By: #### C MP, GFR, BILE, HFP ####Sophia [address] [place], [place] [address] ALP [Catalytic activity/Vol] 272 U/L High 40-135 AO ADM SS Comment on above: Performed By: #### C MP, GFR, BILE, HFP ####Sophia [address] [place], [place] [address] Globulin 5.1 G/dL Normal AO ADM SS Comment on above: Performed By: #### C MP, GFR, BILE, HFP ####Sophia [address] [place], [place] [address] LABORATORYOrdered By: SYSTEM SYSTEM on 01-03-2023 GFR/1.73 [...] AO ADM SS CURon 12-31-2022 CUR Normal [facility] ([place]) .Urinalysis Microscopic (AO) on 12-28-2022 UA Bacteria 2+ /hpf Abnormal [facility] ([place]) Comment on above: Performed By: #### U A, UAMICAO ####[facility] [place] [place], [place] [address] UA RBC None Seen Normal None Seen [facility] ([place] Comment on above: Performed By: #### U A, UAMICAO ####[place] [place], [place] [address] UA Squam Epithelial 15-25 Abnormal None Seen [facility] ([place]) Comment on above: Performed By: #### U A, UAMICAO ####[place] [place], [place] [address] UA WBC 5-10 Abnormal None Seen [facility] ([place] Comment on above: Performed By: #### U A, UAMICAO ####[place] [place] [id number] FFNon 12-28-2022 Fibronectin Negative Normal Negative [facility] ([place] Comment on above: Performed By: #### F FN ####[place] [address] UAon 12-28-2022 Color (U) Yellow Normal [facility] ([place] Comment on above: Performed By: #### U A, UAMICAO ####[place] [place] [id number] Glucose (U) [Mass/Vol] Negative Normal Negative [facility] ([place] Comment on above: Performed By: #### U A, UAMICAO ####[place] [place] [address] Ketones Ql (U) 15 mg/dL Abnormal Negative [facility] ([place] Comment on above: Performed By: #### U A, UAMICAO ####[place] [place] [id number] UA Appear Slightly Cloudy Abnormal Clear [facility] ([place] Comment on above: Performed By: #### U A, UAMICAO ####[place] [place], [place] [address] UA Bili Small Abnormal Negative [facility] ([place] Comment on above: Performed By: #### U A, UAMICAO ####Sophia [place] [place], [place] [address] UA Blood Negative Normal Negative [facility] ([place] Comment on above: Performed By: #### U A, UAMICAO ####[place] [place] [address] UA Leuk Est Small Abnormal Negative [facility] ([place] Comment on above: Performed By: #### U A, UAMICAO ####S[place] [place] [address] UA Nitrite Negative Normal Negative [facility] ([place] Comment on above: Performed By: #### U A, UAMICAO ####S[place] [place] [address] UA pH 6.0 Normal 5.0 - 8.0 [facility] ([place] Comment on above: Performed By: #### U Mario UAMICAO ####[place] [place] [address] UA Protein 30 mg/dL Normal Negative [facility] ([place] Comment on above: Performed By: #### U Mario UAMICAO ####[place] [place] [address] UA Spec Grav 1.025 Normal 1.015-1.025 [facility] ([place] Comment on above: Performed By: #### U A UAMICAO ####S[place] [place] [address] UA Specimen Type Clean Catch Normal [facility] ([place] Comment on above: Performed By: #### U A, UAMICAO ####S[place] [place] [address] UA Urobilinogen >=8.0 Abnormal 0.2-1.0 [facility] ([place] Comment on above: Performed By: #### U A, UAMICAO ####[place] [place] [address] RPRon 12-17-2022 Reagin Ab RPR Ql (S) Non-Reactive Normal Non-Reactive [facility] ([place] Comment on above: Result Comment: The RPR [...] By: #### A WAYNE, CBC, GLU1P, ADIFF ####[place] [address]#### RPR ####[address] [address] .Auto Diffon 12-16-2022 Basophil, Absolute 0.0 10 3/mcL Normal 0.0-0.2 [facility] ([place]) Comment on above: Performed By: #### A WAYNE, CBC, GLU1P, ADIFF ####[place] [address]#### RPR ####[address] [address] Basophils/100 WBC (Bld) 0.4 % Normal 0.0-2.5 [facility] ([place] Comment on above: Performed By: #### A WAYNE, CBC, GLU1P, ADIFF ####[place] [address]#### RPR ####[address] [address] Eosinophil, Absolute 0.0 10 3/mcL Normal 0.0-0.4 [facility] ([place]) Comment on above: Performed By: #### A WAYNE, CBC, GLU1P, ADIFF ####[place] [address]#### RPR ####[address] [address] Eosinophils/100 WBC (Bld) 0.4 % Normal 0.0-7.0 [facility] ([place] Comment on above: Performed By: #### A WAYNE, CBC, GLU1P, ADIFF ####[place] [address]#### RPR ####[address] [address] Lymphocyte, Absolute 1.8 10 3/mcL Normal 0.8-3.9 [facility] ([place] Comment on above: Performed By: #### A WAYNE, CBC, GLU1P, ADIFF ####[place] [address]#### RPR ####[address] [address] Lymphocytes/100 WBC (Bld) 19.3 % Normal 10.0-50.0 [facility] ([place] Comment on above: Performed By: #### A WAYNE, CBC, GLU1P, ADIFF ####[place] [address]#### RPR ####[address] [address] Monocyte, Absolute 0.5 10 3/mcL Normal 0.2-1.0 [facility] ([place] Comment on above: Performed By: #### A WAYNE, CBC, GLU1P, ADIFF ####[place] [address]#### RPR ####[address] [address] Monocytes/100 WBC (Bld) 5.2 % Normal 1.7-13.0 [facility] ([place]) Comment on above: Performed By: #### A WAYNE, CBC, GLU1P, ADIFF ####[place] [address]#### RPR ####[address] [address] Neutrophils/100 WBC (Bld) 74.7 % Normal 37.0-80.0 [facility] ([place] Comment on above: Performed By: #### A WAYNE, CBC, GLU1P, ADIFF ####Sophia [address] [place], [place] [address]#### RPR ####[place] [address] .GFRon 12-16-2022 GFR 138 ml/min/1.73sqm Normal [facility] ([place] Comment on above: Result Comment: GFR Population [...] 15 mL/min/1.73 square meters Performed By: #### G FR, CMP ####Sophia [address] [place], [place] [address] GFR Non- 114 ml/min/1.73sqm Normal [facility] ([place] Comment on above: Result Comment: GFR Population [...] 15 mL/min/1.73 square meters Performed By: #### G FR, CMP ####Sophia [address] [place], [place] [address] .NEUABSon 12-16-2022 Neutrophil, Absolute 7.1 10 3/mcL High 2.9-6.2 [facility] ([place]) Comment on above: Performed By: #### A WAYNE, CBC, GLU1P, ADIFF ####[place] [address]#### RPR ####[place] [address] CBCon 12-16-2022 Erythrocyte distribution width (RBC) [Ratio] 15.3 % High 11.5-14.5 [facility] ([place] Comment on above: Performed By: #### A WAYNE, CBC, GLU1P, ADIFF ####[place] [address]#### RPR ####[place] [address] Hematocrit (Bld) [Volume fraction] 34.4 % Low 37.0-47.0 [facility] ([place] Comment on above: Performed By: #### A WAYNE, CBC, GLU1P, ADIFF ####[place] [address]#### RPR ####[place] [address] Hgb 11.4 G/dL Low 12.0-16.0 [facility] ([place] Comment on above: Performed By: #### A WAYNE, CBC, GLU1P, ADIFF ####[place] [address]#### RPR ####[place] [address] MCH (RBC) [Entitic mass] 25.0 pg Low 27.0-31.2 [facility] ([place] Comment on above: Performed By: #### A WAYNE, CBC, GLU1P, ADIFF ####[place] [address]#### RPR ####[place] [address] MCHC 33.0 G/dL Normal 33.0-37.0 [facility] ([place] Comment on above: Performed By: #### A WAYNE, CBC, GLU1P, ADIFF ####[place] [address]#### RPR ####[place] [address] MCV (RBC) [Entitic vol] 75.8 fL Low 80.0-94.0 [facility] ([place] Comment on above: Performed By: #### A WAYNE, CBC, GLU1P, ADIFF ####[place] [address]#### RPR ####[place] [address] Platelet 142 10 3/mcL Normal 130-400 [facility] ([place] Comment on above: Performed By: #### A WAYNE, CBC, GLU1P, ADIFF ####[place] [address]#### RPR ####[place] [address] Platelet mean volume (Bld) [Entitic vol] 9.1 fL Normal 7.4-10.4 [facility] ([place] Comment on above: Performed By: #### A WAYNE, CBC, GLU1P, ADIFF ####[place] [address]#### RPR ####[place] [address] RBC 4.54 10 6/mcL Normal 4.20-5.40 [facility] ([place] Comment on above: Performed By: #### A WAYNE, CBC, GLU1P, ADIFF ####[place] [address]#### RPR ####[place] [address] WBC 9.6 10 3/mcL Normal 4.6-10.8 [facility] ([place] Comment on above: Performed By: #### A WAYNE, CBC, GLU1P, ADIFF ####[place] [address]#### RPR ####[place] [address] [place] [address] CMPon 12-16-2022 Albumin Level 2.6 G/dL Low 3.5-5.0 [facility] ([place] Comment on above: Performed By: #### Rio ALBARRAN, CMP ####Sophia [address] [place], [place] [address] Albumin/Globulin [Mass ratio] 0.6 {ratio} Low 1.1-2.5 [facility] ([place] Comment on above: Performed By: #### Rio ALBARRAN, CMP ####Sophia [place] [place], [place] [address] ALP [Catalytic activity/Vol] 197 U/L High 40-135 [facility] [place] Comment on above: Performed By: #### Rio ALBARRAN, CMP ####Soph[place] [place], [place] [address] ALT [Catalytic activity/Vol] 21 U/L Normal 14-59 [facility] ([place] Comment on above: Performed By: #### Rio ALBARRAN, CMP ####Sophiagary [address] [place], [place] [address] AST [Catalytic activity/Vol] 16 U/L Normal 10-40 [facility] ([place] Comment on above: Performed By: #### Roi ALBARRAN, CMP ####Sophia [address] [place], [place] [address] Bili Total 0.3 mg/dL Normal 0.2-1.0 [facility] ([place] Comment on above: Result Comment: Use of this assay is not recommended for patients undergoing treatment with eltrombopag due to the potential for falsely elevated results. Performed By: #### Rio ALBARRAN, CMP ####S[place]ia [place] [place], [place] [address] BUN/Creatinine Ratio 6 ratio Low 7-27 [facility] ([place] Comment on above: Performed By: #### Rio ALBARRAN, CMP ####Sophia [address] [place], [place] [address] Calcium [Mass/Vol] 8.3 mg/dL Low 8.4-10.2 [facility] ([place]) Comment on above: Performed By: #### Rio ALBARRAN, CMP ####S[place] [address] [place], [place] [address] Chloride [Moles/Vol] 101 mmol/L Normal 98-107 [facility] ([place] Comment on above: Performed By: #### Rio ALBARRAN, CMP ####S[place] [place], [place] [address] CO2 [Moles/Vol] 26 mmol/L Normal 22-29 [facility] [place] Comment on above: Performed By: #### Rio ALBARRAN, CMP ####S[place] [place], [place] [address] Creatinine [Mass/Vol] 0.65 mg/dL Normal 0.55-1.02 [facility] ([place] Comment on above: Performed By: #### Rio ALBARRAN, CMP ####S[place] [address] [place], [place] [address] Electrolyte Balance 11.0 mEq/L Normal 4.0-15.0 [facility] ([place] Comment on above: Performed By: #### Rio ALBARRAN, CMP ####S[place] [address] [place], [place] [address] Globulin 4.3 G/dL Normal [facility] ([place] Comment on above: Performed By: #### Rio ALBARRAN, CMP ####S[place] [address] [place], [place] [address] Glucose [Mass/Vol] 166 mg/dL High 70-105 [facility] ([place] Comment on above: Performed By: #### Rio ALBARRAN, CMP ####S[place] [address] [place], [place] [address] Potassium [Moles/Vol] 3.9 mmol/L Normal 3.5-5.1 [facility] ([place] Comment on above: Performed By: #### Rio ALBARRAN, CMP ####S[place] [address] [place], [place] [address] Sodium [Moles/Vol] 138 mmol/L Normal 136-145 [facility] ([place] Comment on above: Performed By: #### G FR, CMP ####Sophia [address] [place], [place] [address] Total Protein 6.9 G/dL Normal 6.4-8.2 [facility] ([place] Comment on above: Performed By: #### G FR, CMP ####S[place] [address] [place], [place] [address] Urea nitrogen [Mass/Vol] 4 mg/dL Low 7-18 [facility] [place] Comment on above: Performed By: #### G FR, CMP ####S[place] [address] [place], [place] [address] [id number] 12-16-2022 Glucose [Mass/Vol] 163 mg/dL High 70-140 [facility] ([place] Comment on above: Performed By: #### A WAYNE, CBC, GLU1P, ADIFF ####Sophia [address] [place], [place] [address]#### RPR ####[place] [address] CURon 11-14-2022 CUR Normal [facility] ([place] FFNon 11-14-2022 Fibronectin Negative Normal Negative [facility] [place] Comment on above: Performed By: #### F FN ####[place] [address] CTPCRon 11-13-2022 C. trachomatis Interp Normal See CT Interp N [facility] ([place] Comment on above: Result Comment: C. t rachomatis DNA not detected. Specimen is presumptive negative forC. trachomatis.A negative result does not preclude C. trachomatis infection becauseresults depend on adequate specimen collection, absence of inhibitors,and sufficient DNA to be detected.See CT Interp N Performed By: #### N GPCR1, CTPCR ####[place] [address] C.trachomatis PCR Negative Normal Negative [facility] ([place] Comment on above: Result Comment: Mole davidar (PCR) assay performed on the [employer] [id number] system. Performed By: #### N GPCR1, CTPCR ####[place] [address] Chlam Source Vaginal Normal [facility] ([place] Comment on above: Performed By: #### N GPCR1, CTPCR ####[place] [address] [place] [address] [id number] 11-13-2022 GC PCR Source Vaginal Normal [facility] ([place] Comment on above: Performed By: #### N GPCR1, CTPCR ####[address] [address] N. gonorrhoeae (PCR) Negative Normal Negative [facility] ([place]) Comment on above: Result Comment: Mole cular (PCR) assay performed on the [employer] 4800 System. Performed By: #### N GPCR1, CTPCR ####[address] [address] N. gonorrhoeae Interp Normal See NG Interp N [facility] ([place] Comment on above: Result Comment: N. g onorrhoeae DNA not detected. Specimen is presumptive negative forN. gonorrhoeae. A negative result does not preclude Neisseria gonorrhoeaeinfection because results depend on adequate specimen collection, absenceof inhibitors, and sufficient DNA to be detected.See NG Interp N Performed By: #### N GPCR1, CTPCR ####[address] [address] VAGDNAon 11-13-2022 VAGDNA Normal [facility] ([place]) LABORATORYOrdered By: Suman Rodríguez on 11-12-2022 C. [...] Viro/Sero SS Comment on above: Interpretive Data: Dar malone (PCR) assay performed on the Kole Elaine [...] Vaginal (11/12/22 10:52 AM) Invalid Interpretation Code Auto Viro/Sero SS .Urinalysis Microscopic (AO) on 11-11-2022 UA Bacteria Trace Abnormal [facility] ([place] Comment on above: Performed By: #### U A, UAMICAO ####Sophia [id number] [place] [address] UA RBC 0-5 Abnormal None Seen [facility] ([place] Comment on above: Performed By: #### U A, UAMICAO ####Sophia [id number] [place] [id number] UA Squam Epithelial LOADED Abnormal None Seen [facility] ([place] Comment on above: Performed By: #### U A, UAMICAO ####Sophia [address] [place], [place] [address] UA WBC 0-5 Abnormal None Seen [facility] ([place] Comment on above: Performed By: #### U A, UAMICAO ####Sophia [id number] [place] [address] LABORATORYOrdered By: Daren Albarran on 11-11-2022 Appearance [...] 1.020 (11/11/22 8:43 PM) Invalid Interpretation Code 1.015-1.025 AO Auto Urine SS UA Specimen Type [...] SS UAon 11-11-2022 Color (U) Yellow Normal [facility] ([place]) Comment on above: Performed By: #### U A UAMICAO ####Sophia [address] [place], [place] [address] Glucose (U) [Mass/Vol] Negative Normal Negative [facility] ([place]) Comment on above: Performed By: #### U A UAMICAO ####Sophia [address] [place], [place] [address] Ketones Ql (U) Negative Normal Negative [facility] ([place]) Comment on above: Performed By: #### U A UAMICAO ####Sophia [address] [place], [place] [address] UA Appear Slightly Cloudy Abnormal Clear [facility] ([place]) Comment on above: Performed By: #### U A, UAMICAO ####Sophia [address] [place], [place] [address] UA Blood Negative Normal Negative [facility] ([place] Comment on above: Performed By: #### U A, UAMICAO ####Sophia [address] [place] [address] UA Leuk Est Negative Normal Negative [facility] ([place] Comment on above: Performed By: #### U A, UAMICAO ####Sophia [address] [place] [address] UA Nitrite Negative Normal Negative [facility] ([place] Comment on above: Performed By: #### U A, UAMICAO ####Sophia [address] [place] [address] UA pH 6.5 Normal 5.0 - 8.0 [facility] ([place] Comment on above: Performed By: #### U A, UAMICAO ####Sophia [address] [place] [address] UA Protein Negative Normal Negative [facility] ([place] Comment on above: Performed By: #### U A, UAMICAO ####Sophia [address] [place] [address] UA Spec Grav 1.020 Normal 1.015-1.025 [facility] ([place] Comment on above: Performed By: #### U A, UAMICAO ####Sophia [address] [place] [address] UA Specimen Type Clean Catch Normal [facility] ([place] Comment on above: Performed By: #### U A, UAMICAO ####Sophia [address] [place] [address] UA Urobilinogen 0.2 E.U./dL Normal 0.2-1.0 [facility] ([place] Comment on above: Performed By: #### U A, UAMICAO ####Sophia [address] [place] [address] Urobilinogen (U) [Mass/Vol] Negative Normal Negative [facility] ([place] Comment on above: Performed By: #### U A, UAMICAO ####[facility] [place], [place] [address] VAGDNAon 11-11-2022 VAGDNA Normal [facility] ([place] No Panel InformationOrdered By: Tian Raiadalberto on 11-10-2022 Affirm Pathogens DNA Direct Probe Gardnerella vaginalis DNA Probe Negative Trichomonas vaginalis DNA Probe Negative Renuka species DNA Probe Negative [facility] Amorphous sediment detection in urine sediment by light microscopyOrdered By: Karina Bedoya on 11-09-2022 Amorphous sediment LM Ql (Urine sed) 2+ [facility] Basophil percentageOrdered B y: Karina Bedoya on 11-09-2022 Basophil percentage 10-25 SEEN /hpf 0-5 [facility] LDH [Catalytic activity/Vol] 159 U/L 84-246 [facility] WBC (Bld) [#/Vol] 9.8 10*3/uL 4.4-11.0 [facility] Bilirubin Test strip Ql (U)O rdered By: Karina Bedoya on 11-09-2022 Bilirubin Ql (U) Negative Negative [facility] Blood erythrocytes count (nu mber/volume)Ordered By: Karina Bedoya on 11-09-2022 RBC (Bld) [#/Vol] 4.43 10*6/uL 4.2-5.4 [facility] Blood hemoglobin measurement (mass/volume)Ordered By: Karina Bedoya on 11-09-2022 Hemoglobin (Bld) [Mass/Vol] 11.1 g/dL 12.0-15.0 [facility] Blood platelet mean volumeOr dered By: Karina Bedoya on 11-09-2022 Platelet mean volume (Bld) [Entitic vol] 12.6 fL 6.2-12.0 [facility] Culture, urineOrdered By: Marco Bedoya on 11-09-2022 Bacteria identified Cx Nom (U) Positive [facility] Bacteria identified Cx Nom (U) Positive [facility] Determination of erythrocyte mean corpuscular volume (MCV)Ordered By: Karina Bedoya on 11-09-2022 MCV (RBC) [Entitic vol] 78.6 fL 81-99 [facility] Hematocrit Auto (Bld) [Volum e fraction]Ordered By: Karina Bedoya on 11-09-2022 Hematocrit (Bld) [Volume fraction] 34.8 % 37-47 [facility] Ketones Test strip Ql (U)Ord ered By: Karina Bedoya on 11-09-2022 Ketones Ql (U) Negative Negative [facility] Laboratory - Chemistry and C hemistry - challengeOrdered By: Karina Bedoya on 11-09-2022 ALT [Catalytic activity/Vol] 25 U/L 13-56 [facility] Laboratory - Hematology and Cell countsOrdered By: Karina Bedoya on 11-09-2022 Erythrocyte distribution width (RBC) [Entitic vol] 42.4 fL 35.1-43.9 [facility] Erythrocyte distribution width (RBC) [Ratio] 14.7 % 11.6-14.6 [facility] MCH (RBC) [Entitic mass] 25.1 pg 27.0-32.0 [facility] MCHC Auto (RBC) [Mass/Vol]Or dered By: Karina Bedoya on 11-09-2022 MCHC (RBC) [Mass/Vol] 31.9 g/dL 32-[address] [facility] Mucus LM Ql (Urine sed)Order ed By: Karina Bedoya on 11-09-2022 Mucus Ql (Urine sed) 1+ /hpf [facility] Nitrite Test strip Ql (U)Ord ered By: Karina Bedoya on 11-09-2022 Nitrite Ql (U) Negative Negative [facility] No Panel InformationOrdered By: Karina Bedoya on 11-09-2022 Estimated Creatinine Clearance Calc 118.73 ml/min [facility] Estimated GFR (MDRD) Amer 155 mL/min >60 [facility] Comment on above: GFR Calc Estimated GFR (MDRD) Non-Af Amer 129 mL/min >60 [facility] Comment on above: Non- GFR Calc Vaginal Amniotic Fluid Detection Negative Negative [facility] Comment on above: Amniotic fluid not p resent indicates No Rupture of FetalMembranes at time of specimen collection. Platelets bldOrdered By: Makeda Bedoya on 11-09-2022 Platelets (Bld) [#/Vol] 171 10*3/uL 150-450 [facility] Protein Test strip Ql (U)Ord ered By: Karina Bedoya on 11-09-2022 Protein Ql (U) 15 mg/dl Negative [facility] Serum or plasma creatinine m easurement (mass/volume)Ordered By: Karina Bedoya on 11-09-2022 Creatinine [Mass/Vol] 0.62 mg/dL 0.55-1.[address] [facility] Comment on above: The validity of the calculated GFR & GFRAA in patients over 70 years has not been determined. Clinical correlation is essential. Serum or plasma uric acid me asurement (mass/volume)Ordered By: Karina Bedoya on 11-09-2022 Urate [Mass/Vol] 4.9 mg/dL 2.6-6.0 [facility] Comment on above: The drugs N-Acetylcy steine and Metamizole may falsely depress this assay. Squamous epithelial cells de tection in urine sediment by light microscopyOrdered By: Karina Bedoya on 11-09-2022 Epithelial cells.squamous LM Ql (Urine sed) 5-10 SEEN /hpf 5-10 [facility] Thin prep Papanicolaou smear with manual screeningOrdered By: Karian Bedoya on 11-09-2022 Thin prep Papanicolaou smear with manual screening 16 U/L 15-37 [facility] Urine blood detectionOrdered By: Karina Bedoya on 11-09-2022 RBC Ql (U) Negative Negative [facility] RBC Ql (U) 0 SEEN /hpf 0-5 [facility] Urine clarityOrdered By: Makeda Bedoya on 11-09-2022 Clarity (U) Sl. Cloudy Clear [facility] Urine color determinationOrd ered By: Karina Bedoya on 11-09-2022 Color (U) Yellow Yellow [facility] Urine creatinine measurement (mass/volume)Ordered By: Karina Bedoya on 11-09-2022 Creatinine (U) [Mass/Vol] 167.00 mg/dL NO RANGE EST. [facility] Urine glucose detectionOrder ed By: Karina Bedoya on 11-09-2022 Glucose Ql (U) Normal mg/dl Normal [facility] Urine leukocyte esterase det ection by dipstickOrdered By: Karina Bedoya on 11-09-2022 Leukocyte esterase Test strip Ql (U) 100 /ul Negative [facility] Urine pHOrdered By: Karina Bedoya on 11-09-2022 pH (U) 8.0 [pH] 5.0 - 8.0 [facility] Urine protein measurement (m ass/volume)Ordered By: Karina Bedoya on 11-09-2022 Protein (U) [Mass/Vol] 32.9 mg/dL 0.0-11.8 [facility] Urine protein/creatinine mas s ratioOrdered By: Karina Bedoya on 11-09-2022 Protein/Creatinine (U) [Mass ratio] 197 mg/g CRE 0-200 [facility] Urine sediment bacteria coun t by microscopy (number/high power field)Ordered By: Karina Bedoya on 11-09-2022 Bacteria LM.HPF (Urine sed) [#/Area] 3 /[HPF] None Seen [facility] Urine specific gravity measu rementOrdered By: Karina Bedoya on 11-09-2022 Specific gravity (U) [Rel density] 1.015 1.002-1.030 [facility] Urobilinogen Auto test strip Ql (U)Ordered By: Karina Bedoya on 11-09-2022 Urobilinogen Ql (U) 1 mg/dl Normal [facility] .Auto Diffon 10-29-2022 Basophil, Absolute 0.1 10 3/mcL Normal 0.0-0.2 [facility] ([place]) Comment on above: Performed By: #### C MP, ADIFF, CBC, URIC, ANEU, GFR ####[place] [address] [place], [place] [address]#### GGT ####[address] [address] Basophils/100 WBC (Bld) 0.7 % Normal 0.0-2.5 [facility] ([place] Comment on above: Performed By: #### C MP, ADIFF, CBC, URIC, ANEU, GFR ####[address] [address]#### GGT ####[address] [address] Eosinophil, Absolute 0.1 10 3/mcL Normal 0.0-0.4 [facility] ([place]) Comment on above: Performed By: #### C MP, ADIFF, CBC, URIC, ANEU, GFR ####[place] [address]#### GGT ####[address] [address] Eosinophils/100 WBC (Bld) 0.5 % Normal 0.0-7.0 [facility] ([place] Comment on above: Performed By: #### C MP, ADIFF, CBC, URIC, ANEU, GFR ####[place] [address]#### GGT ####[place] [address] Lymphocyte, Absolute 2.3 10 3/mcL Normal 0.8-3.9 [facility] ([place] Comment on above: Performed By: #### C MP, ADIFF, CBC, URIC, ANEU, GFR ####[place] [address]#### GGT ####[address] [address] Lymphocytes/100 WBC (Bld) 23.1 % Normal 10.0-50.0 [facility] ([place] Comment on above: Performed By: #### C MP, ADIFF, CBC, URIC, ANEU, GFR ####[place] [address]#### GGT ####[place] [address] Monocyte, Absolute 0.7 10 3/mcL Normal 0.2-1.0 [facility] ([place]) Comment on above: Performed By: #### C MP, ADIFF, CBC, URIC, ANEU, GFR ####[place] [address]#### GGT ####[address] [address] Monocytes/100 WBC (Bld) 7.0 % Normal 1.7-13.0 [facility] ([place] Comment on above: Performed By: #### C MP, ADIFF, CBC, URIC, ANEU, GFR ####Sophia [address] [place], [place] [address]#### GGT ####[address] [address] Neutrophils/100 WBC (Bld) 68.7 % Normal 37.0-80.0 [facility] ([place] Comment on above: Performed By: #### C MP, ADIFF, CBC, URIC, ANEU, GFR ####[address] [address]#### GGT ####[address] [address] .GFRon 10-29-2022 GFR 135 ml/min/1.73sqm Normal [facility] ([place] Comment on above: Result Comment: GFR Population [...] C MP, ADIFF, CBC, URIC, ANEU, GFR ####[place] [address] [place], [place] [address]#### GGT ####[address] [address] GFR Non- 111 ml/min/1.73sqm Normal [facility] ([place] Comment on above: Result Comment: GFR Population [...] C MP, ADIFF, CBC, URIC, ANEU, GFR ####[place] [address]#### GGT ####[place] [address] .NEUABSon 10-29-2022 Neutrophil, Absolute 6.9 10 3/mcL High 2.9-6.2 [facility] ([place] Comment on above: Performed By: #### C MP, ADIFF, CBC, URIC, ANEU, GFR ####[place] [address]#### GGT ####[place] [address] CBCon 10-29-2022 Erythrocyte distribution width (RBC) [Ratio] 15.4 % High 11.5-14.5 [facility] ([place] Comment on above: Performed By: #### C MP, ADIFF, CBC, URIC, ANEU, GFR ####[place] [address]#### GGT ####[place] [address] Hematocrit (Bld) [Volume fraction] 34.8 % Low 37.0-47.0 [facility] ([place] Comment on above: Performed By: #### C MP, ADIFF, CBC, URIC, ANEU, GFR ####[place] [address]#### GGT ####[place] [address] Hgb 11.7 G/dL Low 12.0-16.0 [facility] ([place] Comment on above: Performed By: #### C MP, ADIFF, CBC, URIC, ANEU, GFR ####[place] [address]#### GGT ####[place] [address] MCH (RBC) [Entitic mass] 24.9 pg Low 27.0-31.2 [facility] ([place] Comment on above: Performed By: #### C MP, ADIFF, CBC, URIC, ANEU, GFR ####[place] [address]#### GGT ####[place] [address] MCHC 33.5 G/dL Normal 33.0-37.0 [facility] ([place] Comment on above: Performed By: #### C MP, ADIFF, CBC, URIC, ANEU, GFR ####[place] [address]#### GGT ####[place] [address] MCV (RBC) [Entitic vol] 74.3 fL Low 80.0-94.0 [facility] ([place] Comment on above: Performed By: #### C MP, ADIFF, CBC, URIC, ANEU, GFR ####[place] [address]#### GGT ####[place] [address] Platelet 149 10 3/mcL Normal 130-400 [facility] ([place] Comment on above: Performed By: #### C MP, ADIFF, CBC, URIC, ANEU, GFR ####[place] [address]#### GGT ####[place] [address] Platelet mean volume (Bld) [Entitic vol] 9.6 fL Normal 7.4-10.4 [facility] ([place] Comment on above: Performed By: #### C MP, ADIFF, CBC, URIC, ANEU, GFR ####[place] [address]#### GGT ####[place] [address] RBC 4.68 10 6/mcL Normal 4.20-5.40 [facility] ([place] Comment on above: Performed By: #### C MP, ADIFF, CBC, URIC, ANEU, GFR ####[place] [address]#### GGT ####[place] [address] WBC 10.0 10 3/mcL Normal 4.6-10.8 [facility] ([place] Comment on above: Performed By: #### C MP, ADIFF, CBC, URIC, ANEU, GFR ####[place] [address]#### GGT ####[place] [address] CMPon 10-29-2022 Albumin Level 2.8 G/dL Low 3.5-5.0 [facility] ([place] Comment on above: Performed By: #### C MP, ADIFF, CBC, URIC, ANEU, GFR ####[place] [address]#### GGT ####[place] [address] Albumin/Globulin [Mass ratio] 0.7 {ratio} Low 1.1-2.5 [facility] ([place] Comment on above: Performed By: #### C MP, ADIFF, CBC, URIC, ANEU, GFR ####[place] [address]#### GGT ####[place] [address] ALP [Catalytic activity/Vol] 147 U/L High 40-135 [facility] ([place] Comment on above: Performed By: #### C MP, ADIFF, CBC, URIC, ANEU, GFR ####[place] [address]#### GGT ####[address] [address] ALT [Catalytic activity/Vol] 27 U/L Normal 14-59 [facility] ([place] Comment on above: Performed By: #### C MP, ADIFF, CBC, URIC, ANEU, GFR ####[place] [address]#### GGT ####[address] [address] AST [Catalytic activity/Vol] 17 U/L Normal 10-40 [facility] ([place] Comment on above: Performed By: #### C MP, ADIFF, CBC, URIC, ANEU, GFR ####[place] [address]#### GGT ####[place] [address] Bili Total 0.3 mg/dL Normal 0.2-1.0 [facility] ([place] Comment on above: Result Comment: Use of this assay is not recommended for patients undergoing treatment with eltrombopag due to the potential for falsely elevated results. Performed By: #### C MP, ADIFF, CBC, URIC, ANEU, GFR ####[place] [address]#### GGT ####[address] [address] BUN/Creatinine Ratio 7 ratio Normal 7-27 [facility] ([place]) Comment on above: Performed By: #### C MP, ADIFF, CBC, URIC, ANEU, GFR ####[place] [address]#### GGT ####[address] [address] Calcium [Mass/Vol] 8.6 mg/dL Normal 8.4-10.2 [facility] ([place]) Comment on above: Performed By: #### C MP, ADIFF, CBC, URIC, ANEU, GFR ####[place] [address]#### GGT ####[address] [address] Chloride [Moles/Vol] 104 mmol/L Normal 98-107 [facility] ([place] Comment on above: Performed By: #### C MP, ADIFF, CBC, URIC, ANEU, GFR ####[place] [address]#### GGT ####[place] [address] CO2 [Moles/Vol] 24 mmol/L Normal 22-29 [facility] ([place] Comment on above: Performed By: #### C MP, ADIFF, CBC, URIC, ANEU, GFR ####[place] [address]#### GGT ####[place] [address] Creatinine [Mass/Vol] 0.67 mg/dL Normal 0.55-1.02 [facility] ([place] Comment on above: Performed By: #### C MP, ADIFF, CBC, URIC, ANEU, GFR ####[place] [address]#### GGT ####[place] [address] Electrolyte Balance 12.0 mEq/L Normal 4.0-15.0 [facility] ([place] Comment on above: Performed By: #### C MP, ADIFF, CBC, URIC, ANEU, GFR ####[place] [address]#### GGT ####[place] [address] Globulin 4.3 G/dL Normal [facility] ([place] Comment on above: Performed By: #### C MP, ADIFF, CBC, URIC, ANEU, GFR ####[place] [address]#### GGT ####[place] [address] Glucose [Mass/Vol] 86 mg/dL Normal 70-105 [facility] ([place] Comment on above: Performed By: #### C MP, ADIFF, CBC, URIC, ANEU, GFR ####[address] [address]#### GGT ####[address] [address] Potassium [Moles/Vol] 4.5 mmol/L Normal 3.5-5.1 [facility] ([place]) Comment on above: Performed By: #### C MP, ADIFF, CBC, URIC, ANEU, GFR ####[address] [address]#### GGT ####[address] [address] Sodium [Moles/Vol] 140 mmol/L Normal 136-145 [facility] ([place] Comment on above: Performed By: #### C MP, ADIFF, CBC, URIC, ANEU, GFR ####[place] [address]#### GGT ####[address] [address] Total Protein 7.1 G/dL Normal 6.4-8.2 [facility] ([place] Comment on above: Performed By: #### C MP, ADIFF, CBC, URIC, ANEU, GFR ####[place] [address]#### GGT ####[address] [address] Urea nitrogen [Mass/Vol] 5 mg/dL Low 7-18 [facility] ([place] Comment on above: Performed By: #### C MP, ADIFF, CBC, URIC, ANEU, GFR ####[address] [address]#### GGT ####[address] [address] GGTon 10-29-2022 Gamma GT 26 U/L Normal 5-55 [facility] ([place] Comment on above: Performed By: #### C MP, ADIFF, CBC, URIC, ANEU, GFR ####Sophia [id number] [place], [place] [address]#### GGT ####Sophia [address] [address] LABORATORYOrdered By: SYSTEM SYSTEM on 10-29-2022 Albumin [...] [Mass ratio] 7 ratio Invalid Interpretation Code ratio AO ADM SS Uric Acid Lvl 4.3 mg/dL Invalid Interpretation Code 2.6 - 6.2 mg/dL AO ADM SS WBC (Bld) [#/Vol] 10.0 103/mcL Invalid Interpretation Code 4.6 - 10.8 10^3/mcL AO Workflow SS URICon 10-29-2022 Uric Acid Lvl 4.3 mg/dL Normal 2.6-6.2 [facility] ([place] Comment on above: Performed By: #### C MP, ADIFF, CBC, URIC, ANEU, GFR ####Sophia [address] [place], [place] [address]#### GGT ####[place] [address] US ABDOMEN LIMITEDon 023 US ABDOMEN LIMITED Normal [facility] ([place]) VARISon 10-10-[address] Positive Normal [facility] ([place] Comment on above: Result Comment: INTE RPRETATION OF VARICELLA IMMUNE STATUS IgG BY EIA: Negative: No detectable VZV IgG antibody. Positive: VZV IgG antibody Detected. If clinically indicated, order Varicella IgM to rule out recent infection. Equivocal: Equivocal for antibodies to VZV. Suggest repeat testing in 10-14 days. Performed By: #### A DIFF, CBC, ANEU, TSH ####[place] [address]#### ANSG, RPR, RUBIS, VARIS, HBSAG, HCV1, ABOG ####Sophia [id number] [place], [place] [address] RPRon 10-08-2022 Reagin Ab RPR Ql (S) Non-Reactive Normal Non-Reactive [facility] ([place] Comment on above: Result Comment: The RPR [...] By: #### A DIFF, CBC, ANEU, TSH ####[place] [address]#### ANSG, RPR, RUBIS, VARIS, HBSAG, HCV1, ABOG ####[facility] [place], [place] [address] RUBISon 10-08-[address] Positive Normal Positive [facility] ([place] Comment on above: Result Comment: This immune status assay detects IgM and/or IgG antibody to Rubella. Interpret results in conjunction with clinical history. POS: Antibody detected; exposure at undetermined recent or distant time. If clinically indicated, order Rubella IGM to rule out recent infection. NEG: No antibody detected. Performed By: #### A DIFF, CBC, ANEU, TSH ####[place] [address]#### ANSG, RPR, RUBIS, VARIS, HBSAG, HCV1, ABOG ####[place] [id number] .Auto Diffon 10-07-2022 Basophil, Absolute 0.0 10 3/mcL Normal 0.0-0.2 [facility] ([place] Comment on above: Performed By: #### A DIFF, CBC, ANEU, TSH ####[place] [address]#### ANSG, RPR, RUBIS, VARIS, HBSAG, HCV1, ABOG ####[facility] [place] [id number] Basophils/100 WBC (Bld) 0.4 % Normal 0.0-2.5 [facility] ([place] Comment on above: Performed By: #### A DIFF, CBC, ANEU, TSH ####[place] [address]#### ANSG, RPR, RUBIS, VARIS, HBSAG, HCV1, ABOG ####[facility] [place] [id number] Eosinophil, Absolute 0.1 10 3/mcL Normal 0.0-0.4 [facility] ([place] Comment on above: Performed By: #### A DIFF, CBC, ANEU, TSH ####[place] [address]#### ANSG, RPR, RUBIS, VARIS, HBSAG, HCV1, ABOG ####[address] [address] Eosinophils/100 WBC (Bld) 0.6 % Normal 0.0-7.0 [facility] ([place]) Comment on above: Performed By: #### A DIFF, CBC, ANEU, TSH ####[place] [address]#### ANSG, RPR, RUBIS, VARIS, HBSAG, HCV1, ABOG ####[address] [address] Lymphocyte, Absolute 1.8 10 3/mcL Normal 0.8-3.9 [facility] ([place] Comment on above: Performed By: #### A DIFF, CBC, ANEU, TSH ####[place] [address]#### ANSG, RPR, RUBIS, VARIS, HBSAG, HCV1, ABOG ####[address] [address] Lymphocytes/100 WBC (Bld) 19.0 % Normal 10.0-50.0 [facility] ([place] Comment on above: Performed By: #### A DIFF, CBC, ANEU, TSH ####[place] [address]#### ANSG, RPR, RUBIS, VARIS, HBSAG, HCV1, ABOG ####[address] [address] Monocyte, Absolute 0.5 10 3/mcL Normal 0.2-1.0 [facility] ([place] Comment on above: Performed By: #### A DIFF, CBC, ANEU, TSH ####[place] [address]#### ANSG, RPR, RUBIS, VARIS, HBSAG, HCV1, ABOG ####[facility] [place], [place] [address] Monocytes/100 WBC (Bld) 5.5 % Normal 1.7-13.0 [facility] ([place] Comment on above: Performed By: #### A DIFF, CBC, ANEU, TSH ####[place] [address]#### ANSG, RPR, RUBIS, VARIS, HBSAG, HCV1, ABOG ####[place] [id number] [place], [place] [address] Neutrophils/100 WBC (Bld) 74.5 % Normal 37.0-80.0 [facility] ([place]) Comment on above: Performed By: #### A DIFF, CBC, ANEU, TSH ####[place] [address]#### ANSG, RPR, RUBIS, VARIS, HBSAG, HCV1, ABOG ####[place] [id number] [place], [place] [address] .NEUABSon 10-07-2022 Neutrophil, Absolute 6.9 10 3/mcL High 2.9-6.2 [facility] ([place]) Comment on above: Performed By: #### A DIFF, CBC, ANEU, TSH ####[place] [address]#### ANSG, RPR, RUBIS, VARIS, HBSAG, HCV1, ABOG ####[facility] [place], [place] [address] CBCon 10-07-2022 Erythrocyte distribution width (RBC) [Ratio] 15.0 % High 11.5-14.5 [facility] ([place] Comment on above: Performed By: #### A DIFF, CBC, ANEU, TSH ####[place] [address]#### ANSG, RPR, RUBIS, VARIS, HBSAG, HCV1, ABOG ####[place] [id number] [place], [place] [id number] Hematocrit (Bld) [Volume fraction] 35.2 % Low 37.0-47.0 [facility] ([place] Comment on above: Performed By: #### A DIFF, CBC, ANEU, TSH ####[place] [address]#### ANSG, RPR, RUBIS, VARIS, HBSAG, HCV1, ABOG ####[facility] [place] [id number] Hgb 11.7 G/dL Low 12.0-16.0 [facility] ([place]) Comment on above: Performed By: #### A DIFF, CBC, ANEU, TSH ####[place] [address]#### ANSG, RPR, RUBIS, VARIS, HBSAG, HCV1, ABOG ####[place] [id number] [place], [place] [id number] MCH (RBC) [Entitic mass] 24.5 pg Low 27.0-31.2 [facility] ([place]) Comment on above: Performed By: #### A DIFF, CBC, ANEU, TSH ####[place] [address]#### ANSG, RPR, RUBIS, VARIS, HBSAG, HCV1, ABOG ####[place] [id number] [place] [id number] MCHC 33.1 G/dL Normal 33.0-37.0 [facility] ([place]) Comment on above: Performed By: #### A DIFF, CBC, ANEU, TSH ####[place] [address]#### ANSG, RPR, RUBIS, VARIS, HBSAG, HCV1, ABOG ####[place] [id number] MCV (RBC) [Entitic vol] 74.0 fL Low 80.0-94.0 [facility] ([place]) Comment on above: Performed By: #### A DIFF, CBC, ANEU, TSH ####[place] [address]#### ANSG, RPR, RUBIS, VARIS, HBSAG, HCV1, ABOG ####[facility] [place], [place] [address] Platelet 140 10 3/mcL Normal 130-400 [facility] ([place]) Comment on above: Performed By: #### A DIFF, CBC, ANEU, TSH ####[place] [address]#### ANSG, RPR, RUBIS, VARIS, HBSAG, HCV1, ABOG ####[place] [id number] [place], [place] [address] Platelet mean volume (Bld) [Entitic vol] 9.7 fL Normal 7.4-10.4 [facility] ([place]) Comment on above: Performed By: #### A DIFF, CBC, ANEU, TSH ####[place] [address]#### ANSG, RPR, RUBIS, VARIS, HBSAG, HCV1, ABOG ####[place] [id number] [place] [id number] RBC 4.76 10 6/mcL Normal 4.20-5.40 [facility] ([place]) Comment on above: Performed By: #### A DIFF, CBC, ANEU, TSH ####[place] [address]#### ANSG, RPR, RUBIS, VARIS, HBSAG, HCV1, ABOG ####[facility] [place] [id number] WBC 9.2 10 3/mcL Normal 4.6-10.8 [facility] ([place]) Comment on above: Performed By: #### A DIFF, CBC, ANEU, TSH ####[place] [address]#### ANSG, RPR, RUBIS, VARIS, HBSAG, HCV1, ABOG ####[facility] [place] [id number] Gel ABOon 10-07-2022 ABO/Rh Interp Positive Invalid Interpretation Code [facility] ([place]) Comment on above: Performed By: #### A DIFF, CBC, ANEU, TSH ####[place] [address]#### ANSG, RPR, RUBIS, VARIS, HBSAG, HCV1, ABOG ####[facility] [place], [place] [address] Gel ABSon 10-07-2022 Antibody Screen Gel Negative Normal [facility] ([place]) Comment on above: Performed By: #### A DIFF, CBC, ANEU, TSH ####[place] [address]#### ANSG, RPR, RUBIS, VARIS, HBSAG, HCV1, ABOG ####[place] [id number] [place] [id number] HBSAGon 10-07-2022 Hep B Surf Ag Non-Reactive Normal Non-Reactive [facility] ([place]) Comment on above: Performed By: #### A DIFF, CBC, ANEU, TSH ####[place] [address]#### ANSG, RPR, RUBIS, VARIS, HBSAG, HCV1, ABOG ####[place] [id number] [place], [place] [address] HCVon 10-07-2022 Hep C Ab Non-Reactive Normal Non-Reactive [facility] ([place]) Comment on above: Performed By: #### A DIFF, CBC, ANEU, TSH ####[place] [address]#### ANSG, RPR, RUBIS, VARIS, HBSAG, HCV1, ABOG ####[place] [id number] [place] [id number] Hep C Ab Int Normal [facility] ([place]) Comment on above: Result Comment: Nonr eactive: Samples with a value < 0.80 are considered nonreactive (negative) for antibodies to HCV.A negative test result does not exclude the possibility of exposure to or infection with HCV. HCV antibodies may be undetectable in some stages of the infection and in some clinical conditions.See Interp Performed By: #### A DIFF, CBC, ANEU, TSH ####[place] [address]#### ANSG, RPR, RUBIS, VARIS, HBSAG, HCV1, ABOG ####[address] [place], [place] [address] LABORATORYOrdered By: Madeline Amador on 10-07-2022 ABO/Rh [...] Non-Reactive (10/07/22 10:24 AM) Invalid Interpretation Code Non-Reactive AH ADM SS Hematocrit (Bld) [Volume fraction] [...] 10.8 10^3/mcL AO Workflow SS LABORATORYOrdered By: Roshan shaw on 10-07-2022 HCV Ab IA Ql Non-Reactive (10/07/22 10:24 AM) Invalid Interpretation Code Non-Reactive ADM SS HCV Ab IA Ql Nonreactive: Samples with a value < 0.80 are considered nonreactive (negative) for antibodies to HCV.A negative test result does not exclude the possibility of exposure to or infection with HCV. HCV antibodies may be undetectable in some stages of the infection and in some clinical conditions. Invalid Interpretation Code AH Chemistry S TSHon 10-07-2022 TSH Qn 0.70 m[IU]/L Normal 0.36-3.74 [facility] ([place]) Comment on above: Performed By: #### A DIFF, CBC, ANEU, TSH ####[address] [address]#### ANSG, RPR, RUBIS, VARIS, HBSAG, HCV1, ABOG ####[facility] [place], [place] [address] LABORATORYOrdered By: Miladis Strickland on 08-26-2022 C. trachomatis DNA JULIANNE+probe Ql (Unsp spec) Negative (08/26/22 10:57 AM) Invalid Interpretation Code Negative Auto Viro/Sero [...] (08/26/22 10:57 AM) Invalid Interpretation Code Negative Auto Viro/Sero SS N. gonorrhoeae DNA JULIANNE+probe [...] Cervix (08/26/22 10:57 AM) Invalid Interpretation Code Auto Viro/Sero SS LABORATORYOrdered By: [employer] on 07-03-2022 HCG Qn 148.1 m[IU]/mL [...] HCG Qn 54.5 m[IU]/mL Invalid Interpretation Code [facility] Comment on above: Interpretive Data: [...] HCG Qn 16.5 m[IU]/mL Invalid Interpretation Code [facility] Comment on above: Interpretive Data: [...] . . . 10,000 - 100,000 mIU/mL Absolute lymphocyte countOrd ered By: Dr. Hooks on 04-26-2022 Lymphocytes Auto (Unsp spec) [#/Vol] 3.94 10*3/uL 0.83-4.51 [facility] Basophil percentageOrdered B y: Dr. Hooks on 04-26-2022 Basophils/100 WBC (Bld) 0.6 % 0-1 [facility] Chloride [Moles/Vol] 107 mmol/L 98-107 [facility] Eosinophils/100 WBC (Bld) 0.9 % 0-5 [facility] Glucose [Mass/Vol] 90 mg/dL 74-106 [facility] Neutrophils (Bld) [#/Vol] 5.4 10*3/uL 2.0-7.7 [facility] Neutrophils/100 WBC (Bld) 52.5 % 47-70 [facility] Potassium [Moles/Vol] 3.8 mmol/L 3.5-5.[address] [facility] Sodium [Moles/Vol] 140 mmol/L 136-145 [facility] WBC (Bld) [#/Vol] 10.3 10*3/uL 4.4-11.0 [facility] [place] Basophil percentage 0-5 SEEN /hpf 0-5 [facility] Bilirubin Test strip Ql (U)O rdered By: Dr. Hooks on 04-26-2022 Bilirubin Ql (U) Negative Negative [facility] Blood erythrocytes count (nu mber/volume)Ordered By: Dr. Hooks on 04-26-2022 RBC (Bld) [#/Vol] 4.80 10*6/uL 4.2-5.4 [facility] Blood hemoglobin measurement (mass/volume)Ordered By: Dr. Hooks on 04-26-2022 Hemoglobin (Bld) [Mass/Vol] 11.6 g/dL 12.0-15.0 [facility] Blood lymphocytes/100 leukoc ytesOrdered By: Dr. Hooks on 04-26-2022 Lymphocytes/100 WBC (Bld) 38.3 % 19-41 [facility] Blood monocytes/100 leukocyt esOrdered By: Dr. Hooks on 04-26-2022 Monocytes/100 WBC (Bld) 7.4 % 0-10 [facility] Blood platelet mean volumeOr dered By: Dr. Hooks on 04-26-2022 Platelet mean volume (Bld) [Entitic vol] 12.4 fL 6.2-12.0 [facility] Determination of erythrocyte mean corpuscular volume (MCV)Ordered By: Dr. Hooks on 04-26-2022 MCV (RBC) [Entitic vol] 78.5 fL 81-99 [facility] Hematocrit Auto (Bld) [Volum e fraction]Ordered By: Dr. Hooks on 04-26-2022 Hematocrit (Bld) [Volume fraction] 37.7 % 37-47 [facility] Ketones Test strip Ql (U)Ord ered By: Dr. Hooks on 04-26-2022 Ketones Ql (U) Negative Negative [facility] LABORATORYOrdered By: SYSTEM SYSTEM on 04-26-2022 HCG Qn mIU/mL Invalid Interpretation Code AO ADM SS Laboratory - Chemistry and C hemistry - challengeOrdered By: Dr. Hooks on 04-26-2022 CO2 [Moles/Vol] 26.0 mmol/L 21.0-32.0 [facility] Urea nitrogen/Creatinine [Mass ratio] 21.9 mg/mg 10-20 [facility] Laboratory - Hematology and Cell countsOrdered By: Dr. Hooks on 04-26-2022 Erythrocyte distribution width (RBC) [Entitic vol] 38.4 fL 35.1-43.9 [facility] Erythrocyte distribution width (RBC) [Ratio] 13.5 % 11.6-14.6 [facility] Immature granulocytes/100 WBC (Bld) 0.300 % 0.0-0.9 [facility] Comment on above: IG% - Immature Granu locytes (promyelocytes, myelocytes and metamyelocytes) > 1% indicates that a LEFT SHIFT is Present. MCH (RBC) [Entitic mass] 24.2 pg 27.0-32.0 [facility] Nucleated RBC/100 WBC (Bld) [Ratio] 0 % 0-5 [facility] MCHC Auto (RBC) [Mass/Vol]Or dered By: Dr. Hooks on 04-26-2022 MCHC (RBC) [Mass/Vol] 30.8 g/dL 32-[address] [facility] Mucus LM Ql (Urine sed)Order ed By: Dr. Hooks on 04-26-2022 Mucus Ql (Urine sed) 0 SEEN /hpf [facility] Nitrite Test strip Ql (U)Ord ered By: Dr. Hooks on 04-26-2022 Nitrite Ql (U) Negative Negative [facility] No Panel InformationOrdered By: Dr. Hooks on 04-26-2022 Estimated Creatinine Clearance Calc 89.77 ml/min [facility] Estimated GFR (MDRD) Amer 113 mL/min >60 [facility] Comment on above: GFR Calc Estimated GFR (MDRD) Non-Af Amer 93 mL/min >60 [facility] Comment on above: Non- GFR Calc Platelets bldOrdered By: Dr. Hooks on 04-26-2022 Platelets (Bld) [#/Vol] 208 10*3/uL 150-450 [facility] Protein Test strip Ql (U)Ord ered By: Dr. Hooks on 04-26-2022 Protein Ql (U) 15 mg/dl Negative [facility] Serum or plasma calcium safia urement (mass/volume)Ordered By: Dr. Hooks on 04-26-2022 Calcium [Mass/Vol] 8.8 mg/dL 8.5-10.1 [facility] Serum or plasma choriogonado tropin detectionOrdered By: Dr. Hooks on 04-26-2022 HCG ( test) Ql < 1 mIU/mL <4 [facility] Comment on above: hCG levels with Gest ational AgeGestational Age hCG mIU/mL (IU/L)0.2 - 1 week 5 - 501-2 weeks 50 - 5002-3 weeks 100 - 16528-1 weeks 500 - 962563-8 weeks 1000 - 361448-0 weeks 63445 - 100,0006-8 weeks 79243 - 200,0002-3 months 29553 - 100,000 Serum or plasma creatinine m easurement (mass/volume)Ordered By: Dr. Hooks on 04-26-2022 Creatinine [Mass/Vol] 0.82 mg/dL 0.55-1.[address] [facility] Comment on above: The validity of the calculated GFR & GFRAA in patients over 70 years has not been determined. Clinical correlation is essential. Serum or plasma urea nitroge n measurement (mass/volume)Ordered By: Dr. Hooks on 04-26-2022 Urea nitrogen [Mass/Vol] 18 mg/dL 7-18 [facility] Squamous epithelial cells de tection in urine sediment by light microscopyOrdered By: Dr. Hooks on 04-26-2022 Epithelial cells.squamous LM Ql (Urine sed) 10-25 SEEN /hpf 5-10 [facility] Thin prep Papanicolaou smear with manual screeningOrdered By: Dr. Hooks on 04-26-2022 Thin prep Papanicolaou smear with manual screening 7 5-15 [facility] Urine blood detectionOrdered By: Dr. Hooks on 04-26-2022 RBC Ql (U) Negative Negative [facility] RBC Ql (U) 0 SEEN /hpf 0-5 [facility] Urine clarityOrdered By: Dr. Hooks on 04-26-2022 Clarity (U) Sl. Cloudy Clear [facility] Urine color determinationOrd ered By: Dr. Hooks on 04-26-2022 Color (U) Yellow Yellow [facility] Urine glucose detectionOrder ed By: Dr. Hooks on 04-26-2022 Glucose Ql (U) Normal mg/dl Normal [facility] Urine leukocyte esterase det ection by dipstickOrdered By: Dr. Hooks on 04-26-2022 Leukocyte esterase Test strip Ql (U) 25 /ul Negative [facility] Urine pHOrdered By: Dr. Cristian paez on 04-26-2022 pH (U) 7.0 [pH] 5.0 - 8.0 [facility] Urine sediment bacteria coun t by microscopy (number/high power field)Ordered By: Dr. Hooks on 04-26-2022 Bacteria LM.HPF (Urine sed) [#/Area] 0 /[HPF] None Seen [facility] Urine specific gravity measu rementOrdered By: Dr. Hooks on 04-26-2022 Specific gravity (U) [Rel density] 1.015 1.002-1.030 [facility] Urobilinogen Auto test strip Ql (U)Ordered By: Dr. Hooks on 04-26-2022 Urobilinogen Ql (U) Normal mg/dl Normal [facility] LABORATORYOrdered By: [employer] on 04-15-2022 HCG Qn mIU/mL Invalid Interpretation [...] Specimen inform ationOrdered By: Suman Rodríguez on 02-18-2022 Specimen source Nom (Unsp spec) Cervix (02/18/22 4:07 PM) Invalid Interpretation Code AH Auto Viro/Sero SS LABORATORYOrdered By: Jennifer Hammonds [...] Non-Reactive (11/10/21 6:30 PM) Invalid Interpretation Code Non-Reactive Man Viro/Sero SS LABORATORYOrdered By: Daren Kaur on 11-02-2021 S. agalactiae DNA JULIANNE+probe Ql (Unsp spec) Negative 1 (11/02/21 3:02 PM) Invalid Interpretation Code Negative Auto Viro/Sero SS Comment on above: Result Comment: [place] [id number] S. agalactiae DNA JULIANNE+probe Ql (Vag+Rectum) Group [...] SS LABORATORYOrdered By: Daren Devi on 10-19-2021 [id number] .placental Ql (Vag fld) Negative (10/19/21 3:48 PM) [...] strip (U) [Mass/Vol] Negative Invalid Interpretation Code Negativemg/d L AO Auto Urine SS Hemoglobin Auto test strip (U) [Mass/Vol] Negative (09/07/21 11:48 AM) Invalid Interpretation Code Negative AO Auto Urine SS Ketones Ql (U) Negative Invalid Interpretation Code Negativemg/d L AO Auto Urine SS UA Leuk Est Negative (09/07/21 11:48 AM) Invalid Interpretation Code Negative AO Auto Urine SS UA Nitrite Negative (09/07/21 11:48 AM) Invalid Interpretation Code Negative AO Auto Urine SS UA pH 7.5 (09/07/21 11:48 AM) Invalid Interpretation Code 5.0 - 8.0 AO Auto Urine SS UA Protein Negative Invalid Interpretation Code Negativemg/d L AO Auto Urine SS UA Spec Grav 1.015 (09/07/21 11:48 AM) Invalid Interpretation Code 1.015-1.025 AO Auto Urine SS UA Specimen Type Catheter (09/07/21 11:48 AM) Invalid Interpretation Code AO Auto Urine SS UA Urobilinogen 0.2 E.U./dL Invalid Interpretation Code 0.2-1.0E.U./ dL AO Auto Urine SS LABORATORYOrdered By: Jennifer [...] 27 ratio AO ADM SS LABORATORYOrdered By: [employer] on 09-07-2021 GFR 127 ml/min/1.73sqm Invalid [...] Protein 234 MG/24 HR Invalid Interpretation Code <=149mg/24hr AO Chemistry S Ur Protein 18 mg/dL Invalid Interpretation Code 0 - 11 mg/dL AO ADM SS No Panel InformationOrdered By: Karina Albarran on 07-15-2022 U24 Total Volume 1300 mL/24hr Invalid Interpretation Code AO Chemistry S No Panel Informationon 08-27 Culture Urine >100,000 cfu/ml Mixed growth consistent with normal urogenital adrián. [facility] Work Phone: LABORATORYOrdered By: Brooklyn Morales [...] strip (U) [Mass/Vol] Negative Invalid Interpretation Code Negativemg/d L AO Auto Urine SS Hematocrit (Bld) [Volume fraction] 34.0 % Invalid Interpretation Code 37.0 - 47.0 % AO Workflow SS Hemoglobin (Bld) [Mass/Vol] 11.5 G/dL Invalid Interpretation Code 12.0 - 16.0 G/dL AO Workflow SS Hemoglobin Auto test strip (U) [Mass/Vol] Negative (7/13/22 3:29 PM) Invalid Interpretation Code Negative AO Auto Urine SS Ketones Ql (U) Negative Invalid Interpretation Code Negativemg/d L AO Auto Urine SS Lymphocyte, Absolute 2.2 [...] UA Protein Trace mg/dL Invalid Interpretation Code Negativemg/d L AO Auto Urine SS UA RBC 0-5 /HPF Invalid Interpretation Code None Seen/HPF AO Auto Urine SS UA Spec Grav >=1.030 *ABN* (08/26/21 3:29 PM) Invalid Interpretation Code 1.015-1.025 AO Auto Urine SS UA Specimen Type Clean Catch (08/26/21 3:29 PM) Invalid Interpretation Code AO Auto Urine SS UA Squam Epithelial LOADED /HPF Invalid Interpretation Code None Seen/HPF AO Auto Urine SS UA Urobilinogen 1.0 E.U./dL Invalid Interpretation Code 0.2-1.0E.U./ dL AO Auto Urine SS WBC 10.5 103/mcL [...] Probe Negative Renuka species DNA Probe Negative [facility] Work Phone: LABORATORYOrdered By: Madeline Amador [...] Non-Reactive (05/01/21 11:00 AM) Invalid Interpretation Code Non-Reactive AO Rapid Testing SS HIV 1+2 Ab IA.rapid Ql (Unsp spec) Non-Reactive (05/01/21 11:00 AM) Invalid Interpretation Code Non-Reactive AO Rapid Testing SS HIV P24 Int [...] 10^3/mcL AO Auto Heme SS LABORATORYOrdered By: [employer] on 05-01-2021 Hep B Surf Ag Non-Reactive (05/01/21 11:00 AM) Invalid Interpretation Code Non-Reactive AH ADM SS LABORATORYOrdered By: Suman Rodríguez on 05-01-2021 Reagin Ab RPR Ql (S) Non-Reactive (05/01/21 11:00 AM) Invalid Interpretation Code Non-Reactive AH Man Viro/Sero SS LABORATORYOrdered By: Eliezer phelps on 05-01-2021 Hep C Ab Non-Reactive (05/01/21 10:58 AM) Invalid Interpretation Code Non-Reactive AH ADM SS Hep C Ab Int Nonreactive: [...] Miladis Strickland on 03-31-2021 C. trachomatis DNA JUILANNE+probe Ql (Unsp spec) Negative (03/31/21 1:48 PM) Invalid Interpretation Code Negative AH Auto Viro/Sero SS C. trachomatis Interp C. [...] N AH Auto Viro/Sero SS LABORATORYOrdered By: Mayra Flores on 03-31-2021 Drug Screen Urine Negative (03/31/21 1:48 PM) Invalid Interpretation Code Chemistry S Drug Screen Urine Interp Urine [...] Probable Contamination. Suggest recollection if clinically indicated. [facility] Work Phone: LABORATORYOrdered By: Brooklyn Morales [...] Mixed growth consistent with normal urogenital adrián. [facility] Work Phone: LABORATORYOrdered By: Daren Albarran [...] strip (U) [Mass/Vol] Negative Invalid Interpretation Code Negativemg/d L AO Auto Urine SS HCG ( test) Ql Negative (01/25/21 4:08 PM) Invalid Interpretation Code AO Manual Urine SS Hemoglobin Auto test strip (U) [Mass/Vol] Negative (01/25/21 4:08 PM) Invalid Interpretation Code Negative AO Auto Urine SS Ketones Ql (U) Negative Invalid Interpretation Code Negativemg/d L AO Auto Urine SS test (u) int [...] UA Protein Trace mg/dL Invalid Interpretation Code Negativemg/d L AO Auto Urine SS UA RBC 0-5 /HPF Invalid Interpretation Code None Seen/HPF AO Auto Urine SS UA Spec Grav >=1.030 *ABN* (01/25/21 4:08 PM) Invalid Interpretation Code 1.015-1.025 AO Auto Urine SS UA Specimen Type Clean Catch (01/25/21 4:08 PM) Invalid Interpretation Code AO Auto Urine SS UA Squam Epithelial LOADED /HPF Invalid Interpretation Code None Seen/HPF AO Auto Urine SS UA Urobilinogen 0.2 E.U./dL Invalid Interpretation Code 0.2-1.0E.U./ dL AO Auto Urine SS WBC LM.HPF (Urine [...] Probable Contamination. Suggest recollection if clinically indicated. [facility] Work Phone: Vital Signs Date Time Vital Sign Value Performing Clinician Facility 06-05-2024 10:38-0400 Body temperature 97.39 [degF] Quirino Cruz APRN.[employer] Work Phone: [facility] 06-05-2024 10:38-0400 Body weight 131.6 kg Quirino Cruz APRN.[employer] Work Phone: [facility] 06-05-2024 10:38-0400 Diastolic blood pressure 66 mm[Hg] Quirino Cruz APRN.[employer] Work Phone: [facility] 06-05-2024 10:38-0400 Heart rate 72 /min Quirino Cruz APRN.[employer] Work Phone: [facility] 06-05-2024 10:38-0400 Respiratory rate 18 /min Quirino Cruz SPECIAL POPULATION PARAPROFESSIONAL.[employer] Work Phone: [facility] 06-05-2024 10:38-0400 SaO2% (BldA) [Mass fraction] 98 % Quirino Cruz [employer] POPULATION PARAPROFESSIONAL.[employer] Work Phone: [facility] 06-05-2024 10:38-0400 Systolic blood pressure 118 mm[Hg] Quirino Cruz [employer] POPULATION PARAPROFESSIONAL.[employer] Work Phone: [facility] 05-14-2024 08:47-0400 Body temperature 97.3 [degF] Krislyn Aberegg PA Work Phone: [facility] 05-14-2024 08:47-0400 Body weight 130.6 kg Krislyn Aberegg PA Work Phone: [facility] 05-14-2024 08:47-0400 Diastolic blood pressure 64 mm[Hg] Krislyn Aberegg PA Work Phone: [facility] 05-14-2024 08:47-0400 Heart rate 77 /min Krislyn Aberegg PA Work Phone: [facility] 05-14-2024 08:47-0400 Respiratory rate 18 /min Krislyn Aberegg PA Work Phone: [facility] 05-14-2024 08:47-0400 SaO2% (BldA) [Mass fraction] 98 % Krislyn Aberegg PA Work Phone: [facility] 05-14-2024 08:47-0400 Systolic blood pressure 102 mm[Hg] Krislyn Aberegg PA Work Phone: [facility] 04-19-2024 09:39-0500 Body temperature 97.81 [degF] George Montes MD Work Phone: [facility] 04-19-2024 09:39-0500 Body weight 130.7 kg George Montes MD Work Phone: [facility] 04-19-2024 09:39-0500 Diastolic blood pressure 83 mm[Hg] George Montes MD Work Phone: [facility] 04-19-2024 09:39-0500 Heart rate 77 /min George Montes MD Work Phone: [facility] 04-19-2024 09:39-0500 Respiratory rate 18 /min George Montes MD Work Phone: [facility] 04-19-2024 09:39-0500 SaO2% (BldA) [Mass fraction] 100 % George Montes MD Work Phone: [facility] 04-19-2024 09:39-0500 Systolic blood pressure 130 mm[Hg] George Montes MD Work Phone: [facility] 03-12-2024 14:01-0500 Body temperature 100.9 [degF] George Montes MD Work Phone: [facility] 03-12-2024 14:01-0500 Body weight 127.9 kg George Montes MD Work Phone: [facility] 03-12-2024 14:01-0500 Diastolic blood pressure 80 mm[Hg] George Montes MD Work Phone: [facility] 03-12-2024 14:01-0500 Heart rate 106 /min George Montes MD Work Phone: [facility] 03-12-2024 14:01-0500 Respiratory rate 16 /min George Montes MD Work Phone: [facility] 03-12-2024 14:01-0500 SaO2% (BldA) [Mass fraction] 99 % George Montes MD Work Phone: [facility] 03-12-2024 14:01-0500 Systolic blood pressure 110 mm[Hg] George Montes MD Work Phone: [facility] 12-30-2023 09:03-0500 Diastolic Blood Pressure Non-Invasive 68 mm[Hg] AMANDO RIZWAN DO [facility] 12-30-2023 09:03-0500 Heart rate 99 /min AMANDO RIZWAN DO [facility] 12-30-2023 09:03-0500 Systolic Blood Pressure Non-Invasive 108 mm[Hg] AMANDO RIZWAN DO [facility] 12-30-2023 09:00-0500 Body temperature 98.24 [degF] AMANDO RIZWAN DO [facility] 12-30-2023 08:53-0500 Body height 160 cm AMANDO RIZWAN DO [facility] 12-30-2023 08:53-0500 Body weight 131 kg AMANDO RIZWAN DO [facility] 12-30-2023 08:53-0500 Body weight 51.17 kg/m2 AMANDO RIZWAN DO [facility] 12-23-2023 10:30-0500 Body temperature 98.24 [degF] TRUMAN GABRIEL MD [facility] 12-23-2023 10:30-0500 Diastolic Blood Pressure Non-Invasive 71 mm[Hg] TRUMAN GABRIEL MD [facility] 12-23-2023 10:30-0500 Heart rate 100 /min TRUMAN GABRIEL MD [facility] 12-23-2023 10:30-0500 Respiratory rate 18 /min TRUMAN GABRIEL MD [facility] 12-23-2023 10:30-0500 Systolic Blood Pressure Non-Invasive 115 mm[Hg] TRUMAN GABRIEL MD [facility] 12-23-2023 10:22-0500 Body height 160 cm TRUMAN GABRIEL MD [facility] 12-23-2023 10:22-0500 Body weight 130 kg TRUMAN GABRIEL MD [facility] 12-23-2023 10:22-0500 Body weight 50.78 kg/m2 TRUMAN GABRIEL MD [facility] 11-09-2023 09:59-0400 Blood Pressure Location KALA LITTLE DO [facility] 11-09-2023 09:59-0400 Blood Pressure Method KALA LITTLE DO [facility] 11-09-2023 09:59-0400 Body temperature 97.7 [degF] KALA LITTLE DO [facility] 11-09-2023 09:59-0400 Diastolic Blood Pressure Non-Invasive 78 mm[Hg] KALA LITTLE DO [facility] 11-09-2023 09:59-0400 Heart rate 90 /min KALA LITTLE DO [facility] 11-09-2023 09:59-0400 Respiratory rate 18 /min KALA LITTLE DO [facility] 11-09-2023 09:59-0400 Systolic Blood Pressure Non-Invasive 127 mm[Hg] KALA LITTLE DO [facility] 08-30-2023 10:28-0400 Body temperature 98.6 [degF] Naye Hancock APRN.[employer] Work Phone: [facility] 08-30-2023 10:28-0400 Body weight 128.1 kg Naye Hancock APRN.[employer] Work Phone: [facility] 08-30-2023 10:28-0400 Diastolic blood pressure 78 mm[Hg] Naye Hancock APRN.[employer] Work Phone: [facility] 08-30-2023 10:28-0400 Heart rate 92 /min Naye Hancock APRN.[employer] Work Phone: [facility] 08-30-2023 10:28-0400 Respiratory rate 18 /min Naye Hancock APRN.[employer] Work Phone: [facility] 08-30-2023 10:28-0400 SaO2% (BldA) [Mass fraction] 99 % Naye Hancock APRN.[employer] Work Phone: [facility] 08-30-2023 10:28-0400 Systolic blood pressure 114 mm[Hg] Naye Hancock APRN.[employer] Work Phone: [facility] 02-23-2023 10:30-0500 Body temperature 98.24 [degF] KARISSA CHIU MD [facility] 02-23-2023 10:30-0500 Diastolic Blood Pressure Non-Invasive 78 mm[Hg] KARISSA CHIU MD [facility] 02-23-2023 10:30-0500 Heart rate 72 /min KARISSA CHIU MD [facility] 02-23-2023 10:30-0500 Reason For Taking VItal Signs KARISSA CHIU MD [facility] 02-23-2023 10:30-0500 Respiratory rate 16 /min KARISSA CHIU MD [facility] 02-23-2023 10:30-0500 Systolic Blood Pressure Non-Invasive 137 mm[Hg] KARISSA CHIU MD [facility] 02-22-2023 23:36-0500 Body temperature 97.88 [degF] KARISSA CHIU MD [facility] 02-22-2023 23:36-0500 Diastolic Blood Pressure Non-Invasive 73 mm[Hg] KARISSA CHIU MD [facility] 02-22-2023 23:36-0500 Heart rate 85 /min KARISSA CHIU MD [facility] 02-22-2023 23:36-0500 Respiratory rate 16 /min KARISSA CHIU MD [facility] 02-22-2023 23:36-0500 Systolic Blood Pressure Non-Invasive 135 mm[Hg] KARISSA CHIU MD [facility] 02-22-2023 15:50-0500 Body temperature 98.06 [degF] KARISSA CHIU MD [facility] 02-22-2023 15:50-0500 Diastolic Blood Pressure Non-Invasive 75 mm[Hg] KARISSA CHIU MD [facility] 02-22-2023 15:50-0500 Heart rate 80 /min KARISSA CHIU MD [facility] 02-22-2023 15:50-0500 Reason For Taking VItal Signs KARISSA CHIU MD [facility] 02-22-2023 15:50-0500 Systolic Blood Pressure Non-Invasive 134 mm[Hg] KARISSA CHIU MD [facility] 02-22-2023 12:30-0500 Respiratory rate 16 /min KARISSA CHIU MD [facility] 02-22-2023 08:30-0500 Reason For Taking VItal Signs KARISSA CHIU MD [facility] 02-21-2023 13:50-0500 Respiratory Rate - Anes 13 br/min KARISSA CHIU MD [facility] 02-21-2023 13:45-0500 Respiratory Rate - Anes 0 br/min KARISSA CHIU MD [facility] 02-21-2023 13:40-0500 Body temperature 96.8 [degF] KARISSA CHIU MD [facility] 02-21-2023 13:40-0500 Respiratory Rate - Anes 22 br/min KARISSA CHIU MD [facility] 02-21-2023 13:10-0500 Body temperature 96.8 [degF] KARISSA CHIU MD [facility] 02-21-2023 12:45-0500 Body temperature 97.7 [degF] KARISSA CHIU MD [facility] 02-21-2023 10:34-0500 Body height 160 cm KARISSA CHIU MD [facility] 02-21-2023 10:34-0500 Body weight 125 kg KARISSA CHIU MD [facility] 02-21-2023 10:34-0500 Body weight 48.83 kg/m2 KARISSA CHIU MD [facility] 02-15-2023 21:00-0500 Diastolic Blood Pressure Non-Invasive 56 mm[Hg] RENATE NIMESH DO [facility] 02-15-2023 21:00-0500 Heart rate 68 /min RENATE NIMESH DO [facility] 02-15-2023 20:45-0500 Diastolic Blood Pressure Non-Invasive 57 mm[Hg] RENATE NIMESH DO [facility] 02-15-2023 20:45-0500 Heart rate 73 /min RENATE NIMESH DO [facility] 02-15-2023 20:45-0500 Systolic Blood Pressure Non-Invasive 95 mm[Hg] RENATE NIMESH DO [facility] 02-15-2023 20:30-0500 Diastolic Blood Pressure Non-Invasive 53 mm[Hg] RENATE NIMESH DO [facility] 02-15-2023 20:30-0500 Heart rate 60 /min RENATE NIMESH DO [facility] 02-15-2023 20:30-0500 Systolic Blood Pressure Non-Invasive 106 mm[Hg] RENATE NIMESH DO [facility] 02-15-2023 13:56-0500 Body temperature 97.88 [degF] RENATE NIMESH DO [facility] 02-15-2023 13:56-0500 Respiratory rate 16 /min RENATE NIMESH DO [facility] 02-15-2023 13:52-0500 Body height 160 cm RENATE NIMESH DO [facility] 02-15-2023 13:52-0500 Body weight 81.3 kg RENATE NIMESH DO [facility] 02-15-2023 13:52-0500 Body weight 31.76 kg/m2 RENATE NIMESH DO [facility] 02-12-2023 13:15-0500 Diastolic Blood Pressure Non-Invasive 65 mm[Hg] YANNI BURNS MD [facility] 02-12-2023 13:15-0500 Heart rate 65 /min YANNI BURNS MD [facility] 02-12-2023 13:15-0500 Systolic Blood Pressure Non-Invasive 103 mm[Hg] YANNI BURNS MD [facility] 02-12-2023 13:13-0500 Body temperature 98.42 [degF] YANNI BURNS MD [facility] 02-12-2023 13:07-0500 Body height 160 cm YANNI BURNS MD [facility] 02-12-2023 13:07-0500 Body weight 125 kg YANNI BURNS MD [facility] 02-12-2023 13:07-0500 Body weight 48.83 kg/m2 YANNI BURNS MD [facility] 02-10-2023 08:58-0500 Body temperature 98.42 [degF] DR GÉNESIS BLAKE DO [facility] 02-10-2023 08:58-0500 Diastolic Blood Pressure Non-Invasive 69 mm[Hg] DR GÉNESIS BLAKE DO [facility] 02-10-2023 08:58-0500 Heart rate 80 /min DR GÉNESIS BLAKE DO [facility] 02-10-2023 08:58-0500 Respiratory rate 16 /min DR GÉNESIS BLAKE DO [facility] 02-10-2023 08:58-0500 Systolic Blood Pressure Non-Invasive 104 mm[Hg] DR GÉNESIS BLAKE DO [facility] 02-10-2023 03:13-0500 Diastolic Blood Pressure Non-Invasive 57 mm[Hg] DR GÉNESIS BLAKE DO [facility] 02-10-2023 03:13-0500 Heart rate 112 /min DR GÉNESIS BLAKE DO [facility] 02-10-2023 03:13-0500 Respiratory rate 16 /min DR GÉNESIS BLAKE DO [facility] 02-10-2023 03:13-0500 Systolic Blood Pressure Non-Invasive 110 mm[Hg] DR GÉNESIS BLAKE DO [facility] 02-09-2023 23:50-0500 Body temperature 98.96 [degF] DR GÉNESIS BLAKE DO [facility] 02-09-2023 23:50-0500 Diastolic Blood Pressure Non-Invasive 54 mm[Hg] DR GÉNESIS BLAKE DO [facility] 02-09-2023 23:50-0500 Heart rate 102 /min DR GÉNESIS BLAKE DO [facility] 02-09-2023 23:50-0500 Respiratory rate 16 /min DR GÉNESIS BLAKE DO [facility] 02-09-2023 23:50-0500 Systolic Blood Pressure Non-Invasive 117 mm[Hg] DR GÉNESIS BLAKE DO [facility] 02-09-2023 19:28-0500 Body temperature 98.06 [degF] DR GÉNESIS BLAKE DO [facility] 02-09-2023 19:28-0500 Reason For Taking VItal Signs DR GÉNESIS BLAKE DO [facility] 02-09-2023 15:38-0500 Reason For Taking VItal Signs DR GÉNESIS BLAKE DO [facility] 02-09-2023 14:08-0500 Reason For Taking VItal Signs DR GÉNESIS BLAKE DO [facility] 02-09-2023 12:52-0500 Body height [address] GÉNESIS BLAKE DO [facility] 02-09-2023 12:52-0500 Body weight [address] GÉNESIS BLAKE DO [facility] 02-09-2023 12:52-0500 Body weight 48.83 kg/m2 DR GÉNESIS BLAKE DO [facility] 02-09-2023 08:31-0500 Body height [address] GÉNESIS BLAKE DO [facility] 02-09-2023 08:31-0500 Body weight [address] GÉNESIS BLAKE DO [facility] 02-09-2023 08:31-0500 Body weight 48.83 kg/m2 DR GÉNESIS BLAKE DO [facility] 02-02-2023 17:06-0500 Diastolic blood pressure 53 mm[Hg] No Primary Care Physician [facility] 02-02-2023 17:06-0500 Heart rate 74 /min No Primary Care Physician [facility] 02-02-2023 17:06-0500 Systolic blood pressure 117 mm[Hg] No Primary Care Physician [facility] 02-02-2023 15:59-0500 Body height 160.02 cm No Primary Care Physician [facility] 02-02-2023 15:59-0500 Body mass index (BMI) [Ratio] 48.4 kg/m2 No Primary Care Physician [facility] 02-02-2023 15:59-0500 Body weight 124.1 kg No Primary Care Physician [facility] 02-02-2023 15:51-0500 Body temperature 99.6 [degF] No Primary Care Physician [facility] 02-02-2023 15:51-0500 SaO2% (BldA) [Mass fraction] 99 % No Primary Care Physician [facility] 01-26-2023 09:59-0500 Body height 160 cm FILI REMY MD [facility] 01-26-2023 09:59-0500 Body weight 79 kg FILI REMY MD [facility] 01-26-2023 09:59-0500 Body weight 30.86 kg/m2 FILI REMY MD [facility] 01-26-2023 09:58-0500 Diastolic Blood Pressure Non-Invasive 62 mm[Hg] FILI REMY MD [facility] 01-26-2023 09:58-0500 Heart rate 90 /min FILI REMY MD [facility] 01-26-2023 09:58-0500 Respiratory rate 18 /min FILI REMY MD [facility] 01-26-2023 09:58-0500 Systolic Blood Pressure Non-Invasive 121 mm[Hg] FILI REMY MD [facility] 01-13-2023 10:00-0500 Body temperature 98.42 [degF] APURVA SINGH MD [facility] 01-13-2023 10:00-0500 Diastolic Blood Pressure Non-Invasive 59 mm[Hg] APURVA SINGH MD [facility] 01-13-2023 10:00-0500 Heart rate 89 /min APURVA SINGH MD [facility] 01-13-2023 10:00-0500 Reason For Taking VItal Signs APURVA SINGH MD [facility] 01-13-2023 10:00-0500 Respiratory rate 18 /min APURVA SINGH MD [facility] 01-13-2023 10:00-0500 Systolic Blood Pressure Non-Invasive 114 mm[Hg] APURVA SINGH MD [facility] 01-12-2023 21:05-0500 Body temperature 98.24 [degF] APURVA SINGH MD [facility] 01-12-2023 21:05-0500 Diastolic Blood Pressure Non-Invasive 68 mm[Hg] APURVA SINGH MD [facility] 01-12-2023 21:05-0500 Heart rate 102 /min APURVA SINGH MD [facility] 01-12-2023 21:05-0500 Reason For Taking VItal Signs APURVA SINGH MD [facility] 01-12-2023 21:05-0500 Respiratory rate 18 /min APURVA SINGH MD [facility] 01-12-2023 21:05-0500 Systolic Blood Pressure Non-Invasive 117 mm[Hg] APURVA SINGH MD [facility] 01-12-2023 21:03-0500 Body height 160 cm APURVA SINGH MD [facility] 01-12-2023 21:03-0500 Body weight 118.2 kg APURVA SINGH MD [facility] 01-12-2023 21:03-0500 Body weight 46.17 kg/m2 APURVA SINGH MD [facility] 12-02-2022 11:30-0400 Diastolic Blood Pressure Non-Invasive 56 1 APURVA SINGH MD [facility] 12-02-2022 11:30-0400 Heart rate 93 /min APURVA SINGH MD [facility] 12-02-2022 11:30-0400 Respiratory rate 18 /min APURVA SINGH MD [facility] 12-02-2022 11:30-0400 Systolic Blood Pressure Non-Invasive 122 1 APURVA SINGH MD [facility] 12-02-2022 11:26-0400 Body height 160 cm APURVA SINGH MD [facility] 12-02-2022 11:26-0400 Body weight 118.2 kg APURVA SINGH MD [facility] 12-02-2022 11:26-0400 Body weight 46.17 kg/m2 APURVA SINGH MD [facility] 12-02-2022 08:16-0400 Body height 160.02 cm No Primary Care Physician [facility] 12-02-2022 08:16-0400 Body mass index (BMI) [Ratio] 46 kg/m2 No Primary Care Physician [facility] 12-02-2022 08:16-0400 Body weight 117.93 kg No Primary Care Physician [facility] 12-02-2022 08:07-0400 Body temperature 96.8 [degF] No Primary Care Physician [facility] 12-02-2022 08:07-0400 Diastolic blood pressure 66 mm[Hg] No Primary Care Physician [facility] 12-02-2022 08:07-0400 Heart rate 85 /min No Primary Care Physician [facility] 12-02-2022 08:07-0400 SaO2% (BldA) [Mass fraction] 97 % No Primary Care Physician [facility] 12-02-2022 08:07-0400 Systolic blood pressure 133 mm[Hg] No Primary Care Physician [facility] 11-24-2022 09:41-0400 Body temperature 98.78 [degF] MARYJANE AVILA MD [facility] 11-24-2022 09:41-0400 Diastolic Blood Pressure Non-Invasive 60 1 MARYJANE AVILA MD [facility] 11-24-2022 09:41-0400 Heart rate 83 /min MARYJANE AVILA MD [facility] 11-24-2022 09:41-0400 Respiratory rate 16 /min MARYJANE AVILA MD [facility] 11-24-2022 09:41-0400 Systolic Blood Pressure Non-Invasive 113 1 MARYJANE AVILA MD [facility] 11-24-2022 09:35-0400 Body height 160 cm MARYJANE AVILA MD [facility] 11-24-2022 09:35-0400 Body weight 121.8 kg MARYJANE AVILA MD [facility] 11-24-2022 09:35-0400 Body weight 47.58 kg/m2 MARYJANE AVILA MD [facility] 11-12-2022 09:56-0400 Body height 160 cm MARYJANE AVILA MD [facility] 11-12-2022 09:56-0400 Body weight 122 kg MARYJANE AVILA MD [facility] 11-12-2022 09:56-0400 Body weight 47.66 kg/m2 MARYJANE AVILA MD [facility] 11-12-2022 09:54-0400 Body temperature 98.42 [degF] MARYJANE AVILA MD [facility] 11-12-2022 09:54-0400 Diastolic Blood Pressure Non-Invasive 62 1 MARYJANE AVILA MD [facility] 11-12-2022 09:54-0400 Heart rate 91 /min MARYJANE AVILA MD [facility] 11-12-2022 09:54-0400 Respiratory rate 18 /min MARYJANE AVILA MD [facility] 11-12-2022 09:54-0400 Systolic Blood Pressure Non-Invasive 116 1 MARYJANE AVILA MD [facility] 11-11-2022 19:34-0400 Body temperature 98.06 [degF] APURVA SINGH MD [facility] 11-11-2022 19:34-0400 Diastolic Blood Pressure Non-Invasive 64 1 APURVA SINGH MD [facility] 11-11-2022 19:34-0400 Heart rate 100 /min APURVA SINGH MD [facility] 11-11-2022 19:34-0400 Reason For Taking VItal Signs APURVA SINGH MD [facility] 11-11-2022 19:34-0400 Respiratory rate 18 /min APURVA SINGH MD [facility] 11-11-2022 19:34-0400 Systolic Blood Pressure Non-Invasive 110 1 APURVA SINGH MD [address] [place] [address] 11-09-2022 12:26-0400 Diastolic blood pressure 55 mm[Hg] No Primary Care Physician [facility] 11-09-2022 12:26-0400 Heart rate 77 /min No Primary Care Physician [facility] 11-09-2022 12:26-0400 Systolic blood pressure 117 mm[Hg] No Primary Care Physician [facility] 11-09-2022 07:34-0400 Body height 160.02 cm No Primary Care Physician [facility] 11-09-2022 07:34-0400 Body mass index (BMI) [Ratio] 47.5 kg/m2 No Primary Care Physician [facility] 11-09-2022 07:34-0400 Body weight 121.7 kg No Primary Care Physician [facility] 11-09-2022 07:22-0400 Body temperature 97.1 [degF] No Primary Care Physician [facility] 11-09-2022 07:22-0400 SaO2% (BldA) [Mass fraction] 98 % No Primary Care Physician [facility] 04-26-2022 17:14-0400 Body height 160.02 cm [facility] 04-26-2022 17:14-0400 Body mass index (BMI) [Ratio] 47.8 kg/m2 [facility] 04-26-2022 17:14-0400 Body temperature 97.8 [degF] [facility] 04-26-2022 17:14-0400 Body weight 122.46 kg [facility] 04-26-2022 17:14-0400 Diastolic blood pressure 107 mm[Hg] [facility] 04-26-2022 17:14-0400 Heart rate 102 /min [facility] 04-26-2022 17:14-0400 Respiratory rate 16 /min [facility] 04-26-2022 17:14-0400 SaO2% (BldA) [Mass fraction] 99 % [facility] 04-26-2022 17:14-0400 Systolic blood pressure 146 mm[Hg] [facility] 03-22-2022 17:45-0500 Body height 160.02 cm [facility] 03-22-2022 17:45-0500 Body mass index (BMI) [Ratio] 48.8 kg/m2 [facility] 03-22-2022 17:45-0500 Body temperature 99 [degF] [facility] 03-22-2022 17:45-0500 Body weight 125 kg [facility] 03-22-2022 17:45-0500 Diastolic blood pressure 80 mm[Hg] [facility] 03-22-2022 17:45-0500 Heart rate 131 /min [facility] 03-22-2022 17:45-0500 Respiratory rate 22 /min [facility] 03-22-2022 17:45-0500 SaO2% (BldA) [Mass fraction] 99 % [facility] 03-22-2022 17:45-0500 Systolic blood pressure 134 mm[Hg] [facility] 11-12-2021 08:26-0400 Body temperature 98.6 [degF] BERONICA FLOYD MD [facility] 11-12-2021 08:26-0400 Diastolic blood pressure 68 mm[Hg] BERONICA FLOYD MD [facility] 11-12-2021 08:26-0400 Heart rate 88 /min BERONICA FLOYD MD [facility] 11-12-2021 08:26-0400 Mean blood pressure 82 mm[Hg] BERONICA FLOYD MD [facility] 11-12-2021 08:26-0400 Respiratory rate 16 /min BERONICA FLOYD MD [facility] 11-12-2021 08:26-0400 Systolic blood pressure 110 mm[Hg] BERONICA FLOYD MD [facility] 11-12-2021 00:06-0400 Body temperature 97.88 [degF] BERONICA FLOYD MD [facility] 11-12-2021 00:06-0400 Diastolic blood pressure 67 mm[Hg] BERONICA FLOYD MD [facility] 11-12-2021 00:06-0400 Heart rate 87 /min BERONICA FLOYD MD [facility] 11-12-2021 00:06-0400 Mean blood pressure 80 mm[Hg] BERONICA FLOYD MD [facility] 11-12-2021 00:06-0400 Respiratory rate 18 /min BERONICA FLOYD MD [facility] 11-12-2021 00:06-0400 Systolic blood pressure 107 mm[Hg] BERONICA FLOYD MD [facility] 11-11-2021 18:15-0400 Diastolic blood pressure 57 mm[Hg] BERONICA FLOYD MD [facility] 11-11-2021 18:15-0400 Heart rate 83 /min BERONICA FLOYD MD [facility] 11-11-2021 18:15-0400 Mean blood pressure 74 mm[Hg] BERONICA FLOYD MD [facility] 11-11-2021 18:15-0400 Systolic blood pressure 108 mm[Hg] BERONICA FLOYD MD [facility] 11-11-2021 14:02-0400 Body temperature 98.06 [degF] BERONICA FLOYD MD [facility] 11-11-2021 10:03-0400 Respiratory rate 18 /min BERONICA FLOYD MD [facility] 11-10-2021 20:15-0400 Diastolic Blood Pressure NBP 51 1 BERONICA LFOYD MD [facility] 11-10-2021 20:15-0400 Systolic Blood Pressure NBP 109 1 BERONICA FLOYD MD [facility] 11-10-2021 20:12-0400 Diastolic Blood Pressure NBP 50 1 BERONICA FLOYD MD [facility] 11-10-2021 20:12-0400 Systolic Blood Pressure NBP 106 1 BERONICA FLOYD MD [facility] 11-10-2021 20:10-0400 Diastolic Blood Pressure NBP 53 1 BERONICA FLOYD MD [facility] 11-10-2021 20:10-0400 Systolic Blood Pressure NBP 114 1 BERONICA FLOYD MD [facility] 11-10-2021 18:24-0400 Body height 162.6 cm BERONICA FLOYD MD [facility] 11-10-2021 18:24-0400 Body weight 130 kg BERONICA FLOYD MD [facility] 11-10-2021 18:24-0400 Body weight 49.17 kg/m2 BERONICA FLOYD MD [facility] 11-10-2021 12:16-0400 Body height 162.6 cm BERONICA FLOYD MD [facility] 11-10-2021 12:16-0400 Body weight 130 kg BERONICA FLOYD MD [facility] 11-10-2021 12:16-0400 Body weight 49.17 kg/m2 BERONICA FLOYD MD [facility] 10-19-2021 15:40-0400 Diastolic blood pressure 55 mm[Hg] BERONICA FLOYD MD [facility] 10-19-2021 15:40-0400 Heart rate 100 /min BERONICA FLOYD MD [facility] 10-19-2021 15:40-0400 Mean blood pressure 78 mm[Hg] BERONICA FLOYD MD [facility] 10-19-2021 15:40-0400 Respiratory rate 20 /min BERONICA FLOYD MD [facility] 10-19-2021 15:40-0400 Systolic blood pressure 125 mm[Hg] BERONICA FLOYD MD [facility] 10-19-2021 15:31-0400 Body height 160 cm BERONICA FLOYD MD [facility] 10-19-2021 15:31-0400 Body weight 162 kg BERONICA FLOYD MD [facility] 10-19-2021 15:31-0400 Body weight 63.28 kg/m2 BERONICA FLOYD MD [facility] 10-09-2021 11:54-0400 Body height 160 cm CHAU GARCIA APRN-CHRISTOPHER [facility] 10-09-2021 11:54-0400 Body weight 129.5 kg CHAU HOOD [facility] 10-09-2021 11:54-0400 Body weight 50.59 kg/m2 CHAU GARCIA APRN-CNDar [facility] 10-09-2021 11:30-0400 Body temperature 97.88 [degF] CHAU JOHNNY SPECIAL POPULATION PARAPROFESSIONAL-CNM [facility] 10-09-2021 11:30-0400 Diastolic blood pressure 64 mm[Hg] CHAU JOHNNY SPECIAL POPULATION PARAPROFESSIONAL-CNM [facility] 10-09-2021 11:30-0400 Heart rate 99 /min CHAU JOHNNY SPECIAL POPULATION PARAPROFESSIONAL-CNM [facility] 10-09-2021 11:30-0400 Respiratory rate 18 /min CHAU JOHNNY SPECIAL POPULATION PARAPROFESSIONAL-CNM [facility] 10-09-2021 11:30-0400 Systolic blood pressure 125 mm[Hg] CHAU JOHNNY SPECIAL POPULATION PARAPROFESSIONAL-CNM [facility] 10-01-2021 10:40-0400 Body temperature 98.24 [degF] APURVA SINGH MD [facility] 10-01-2021 10:40-0400 Diastolic blood pressure 40 mm[Hg] APURVA SINGH MD [facility] 10-01-2021 10:40-0400 Heart rate 69 /min APURVA SINGH MD [facility] 10-01-2021 10:40-0400 Mean blood pressure 60 mm[Hg] APURVA SINGH MD [facility] 10-01-2021 10:40-0400 Respiratory rate 16 /min APURVA SINGH MD [facility] 10-01-2021 10:40-0400 Systolic blood pressure 101 mm[Hg] APURVA SINGH MD [facility] 09-10-2021 12:04-0400 Body temperature 97.81 [degF] Dianelys Praisler-Wood [employer] POPULATION PARAPROFESSIONAL.[employer] Work Phone: [facility] 09-10-2021 12:04-0400 Body weight 128.82 kg Dianelys Praisler-Wood SPECIAL POPULATION PARAPROFESSIONAL.[employer] Work Phone: [facility] 09-10-2021 12:04-0400 Diastolic blood pressure 66 mm[Hg] Dianelys Praisler-Wood SPECIAL POPULATION PARAPROFESSIONAL.[employer] Work Phone: [facility] 09-10-2021 12:04-0400 Heart rate 102 /min Dianelys Praisler-Wood SPECIAL POPULATION PARAPROFESSIONAL.[employer] Work Phone: [facility] 09-10-2021 12:04-0400 Respiratory rate 16 /min Dianelys Praisler-Wood SPECIAL POPULATION PARAPROFESSIONAL.[employer] Work Phone: [facility] 09-10-2021 12:04-0400 SaO2% (BldA) [Mass fraction] 99 % Dianelys Praisler-Wood SPECIAL POPULATION PARAPROFESSIONAL.[employer] Work Phone: [facility] 09-10-2021 12:04-0400 Systolic blood pressure 116 mm[Hg] Dianelys Praisler-Wood SPECIAL POPULATION PARAPROFESSIONAL.[employer] Work Phone: [facility] 09-07-2021 10:03-0400 Body height 160 cm BERONICA FLOYD MD [facility] 09-07-2021 10:03-0400 Body temperature 98.24 [degF] BERONICA FLOYD MD [facility] 09-07-2021 10:03-0400 Body weight 128 kg BERONICA FLOYD MD [facility] 09-07-2021 10:03-0400 Body weight 50 kg/m2 BERONICA FLOYD MD [facility] 09-07-2021 10:03-0400 Diastolic blood pressure 55 mm[Hg] BERONICA FLOYD MD [facility] 09-07-2021 10:03-0400 Heart rate 97 /min BERONICA FLOYD MD [facility] 09-07-2021 10:03-0400 Mean blood pressure 72 mm[Hg] BERONICA FLOYD MD [facility] 09-07-2021 10:03-0400 Respiratory rate 18 /min BERONICA FLOYD MD [facility] 09-07-2021 10:03-0400 Systolic blood pressure 105 mm[Hg] BERONICA FLOYD MD [facility] 08-26-2021 16:30-0400 Diastolic blood pressure 80 mm[Hg] BERONICA FLOYD MD [facility] 08-26-2021 16:30-0400 Heart rate 79 /min BERONICA FLOYD MD [facility] 08-26-2021 16:30-0400 Systolic blood pressure 113 mm[Hg] BERONICA FLOYD MD [facility] 08-26-2021 16:15-0400 Diastolic blood pressure 54 mm[Hg] BERONICA FLOYD MD [facility] 08-26-2021 16:15-0400 Heart rate 73 /min BERONICA FLOYD MD [facility] 08-26-2021 16:15-0400 Systolic blood pressure 114 mm[Hg] BERONICA FLOYD MD [facility] 08-26-2021 16:00-0400 Diastolic blood pressure 50 mm[Hg] BERONICA FLOYD MD [facility] 08-26-2021 16:00-0400 Systolic blood pressure 120 mm[Hg] BERONICA FLOYD MD [facility] 08-26-2021 15:45-0400 Respiratory rate 18 /min BERONICA FLOYD MD [facility] 08-26-2021 15:26-0400 Body height 160 cm BERONICA FLOYD MD [facility] 08-26-2021 15:26-0400 Body weight 122.7 kg BERONICA FLOYD MD [facility] 08-26-2021 15:26-0400 Body weight 47.93 kg/m2 BERONICA FLOYD MD [facility] 08-26-2021 15:20-0400 Body temperature 98.24 [degF] BERONICA FLOYD MD [facility] 06-14-2021 15:08-0400 Diastolic blood pressure 61 mm[Hg] NEMESIO GANN MD [facility] 06-14-2021 15:08-0400 Heart rate 75 /min NEMESIO GANN MD [facility] 06-14-2021 15:08-0400 Respiratory rate 20 /min NEMESIO GANN MD [facility] 06-14-2021 15:08-0400 Systolic blood pressure 116 mm[Hg] NEMESIO GANN MD [facility] 06-14-2021 14:51-0400 Diastolic blood pressure 63 mm[Hg] NEMESIO GANN MD [facility] 06-14-2021 14:51-0400 Heart rate 79 /min NEMESIO GANN MD [facility] 06-14-2021 14:51-0400 Respiratory rate 18 /min NEMESIO GANN MD [facility] 06-14-2021 14:51-0400 Systolic blood pressure 107 mm[Hg] NEMESIO GANN MD [facility] 06-14-2021 14:26-0400 Diastolic blood pressure 76 mm[Hg] NEMESOI GANN MD [facility] 06-14-2021 14:26-0400 Heart rate 83 /min NEMESIO GANN MD [facility] 06-14-2021 14:26-0400 Respiratory rate 18 /min NEMESIO GANN MD [facility] 06-14-2021 14:26-0400 Systolic blood pressure 117 mm[Hg] NEMESIO GANN MD [facility] 06-14-2021 14:08-0400 Body temperature 98.42 [degF] NEMESIO GANN MD [facility] 06-03-2021 19:58-0400 Diastolic blood pressure 78 mm[Hg] [facility] Work Phone: 06-03-2021 19:58-0400 Heart rate 74 /min [facility] Work Phone: 06-03-2021 19:58-0400 Respiratory rate 16 /min [facility] Work Phone: 06-03-2021 19:58-0400 SaO2% (BldA) [Mass fraction] 100 % [facility] Work Phone: 06-03-2021 19:58-0400 Systolic blood pressure 138 mm[Hg] [facility] Work Phone: 06-03-2021 19:11-0400 Body height 160.02 cm [facility] Work Phone: 06-03-2021 19:11-0400 Body mass index (BMI) [Ratio] 44.2 kg/m2 [facility] Work Phone: 06-03-2021 19:11-0400 Body temperature 97.2 [degF] [facility] Work Phone: 06-03-2021 19:11-0400 Body weight 113.39 kg [facility] Work Phone: 05-11-2021 11:41-0400 Body temperature 98.42 [degF] APURVA SINGH MD [facility] 05-11-2021 11:41-0400 Diastolic blood pressure 71 mm[Hg] APURVA SINGH MD [facility] 05-11-2021 11:41-0400 Heart rate 91 /min APURVA SINGH MD [facility] 05-11-2021 11:41-0400 Mean blood pressure 84 mm[Hg] APURVA SINGH MD [facility] 05-11-2021 11:41-0400 Respiratory rate 20 /min APURVA SINGH MD [facility] 05-11-2021 11:41-0400 Systolic blood pressure 110 mm[Hg] APURVA SINGH MD [facility] 05-11-2021 11:33-0400 Body height 160 cm APURVA SINGH MD [facility] 05-11-2021 11:33-0400 Body weight 109.1 kg APURVA SINGH MD [facility] 05-11-2021 11:33-0400 Body weight 42.62 kg/m2 APURVA SINGH MD [facility] 04-14-2021 09:35-0500 Body mass index (BMI) [Ratio] 49.6 kg/m2 [facility] Work Phone: 04-14-2021 09:35-0500 Body temperature 96.4 [degF] [facility] Work Phone: 04-14-2021 09:35-0500 Body weight 127 kg [facility] Work Phone: 04-14-2021 09:35-0500 Diastolic blood pressure 83 mm[Hg] [facility] Work Phone: 04-14-2021 09:35-0500 Heart rate 104 /min [facility] Work Phone: 04-14-2021 09:35-0500 Respiratory rate 16 /min [facility] Work Phone: 04-14-2021 09:35-0500 SaO2% (BldA) [Mass fraction] 100 % [facility] Work Phone: 04-14-2021 09:35-0500 Systolic blood pressure 168 mm[Hg] [facility] Work Phone: 04-13-2021 19:20-0500 Body mass index (BMI) [Ratio] 42.5 kg/m2 [facility] Work Phone: 04-13-2021 19:20-0500 Body temperature 98.2 [degF] [facility] Work Phone: 04-13-2021 19:20-0500 Body weight 108.86 kg [facility] Work Phone: 04-13-2021 19:20-0500 Diastolic blood pressure 79 mm[Hg] [facility] Work Phone: 04-13-2021 19:20-0500 Heart rate 99 /min [facility] Work Phone: 04-13-2021 19:20-0500 Respiratory rate 18 /min [facility] Work Phone: 04-13-2021 19:20-0500 SaO2% (BldA) [Mass fraction] 100 % [facility] Work Phone: 04-13-2021 19:20-0500 Systolic blood pressure 150 mm[Hg] [facility] Work Phone: 01-25-2021 15:40-0500 Body temperature 98.24 [degF] NEMESIO GANN MD [facility] 01-25-2021 15:40-0500 Diastolic blood pressure 86 mm[Hg] NEMESIO GANN MD [facility] 01-25-2021 15:40-0500 Heart rate 80 /min NEMESIO GANN MD [facility] 01-25-2021 15:40-0500 Respiratory rate 20 /min NEMESIO GANN MD [facility] 01-25-2021 15:40-0500 Systolic blood pressure 151 mm[Hg] NEMESIO GANN MD [facility] Encounters Encounter Date Encounter Type Care Provider Facility Start: 06-05-2024 End: 06-05-2024 Office outpatient visit 15 minutes [facility] EMMANUEL Work Phone: [facility] Comment on above: Foot pain, left (Joya roshan Dx) Start: 06-05-2024 End: 06-05-2024 ambulatory [facility] Facility:[facility] Start: 05-14-2024 End: 05-14-2024 Subsequent hospital visit by physician Yi [facility] Work Phone: Radiology Comment on above: Foot pain, left [M79 .672] Start: 05-14-2024 End: 05-14-2024 ambulatory YASMIN SUE Facility:[facility] Start: 05-14-2024 End: 05-14-2024 Office outpatient visit 15 minutes Yasmin Sue PA Work Phone: [facility] Comment on above: Foot pain, left (Joya roshan Dx); Acute left ankle pain Start: 04-19-2024 End: 04-19-2024 Subsequent hospital visit by physician Yi [facility] Work Phone: Radiology Comment on above: Pain [R52] Start: 04-19-2024 End: 04-19-2024 ambulatory NAYE HANCOCK Facility:[facility] Start: 04-19-2024 End: 04-19-2024 Patient encounter procedure George Montes MD Work Phone: [facility] Comment on above: Pain (Primary Dx) Start: 03-20-2024 Encounter for other specified special examinations MARYJANE GARCIA [facility] Start: 03-13-2024 End: 03-13-2024 Telephone encounter Dianelys Marroquin APRN.CNP Work Phone: [facility] Comment on above: Results Start: 03-12-2024 End: 03-12-2024 Subsequent hospital visit by physician [facility] Work Phone: Radiology Comment on above: Acute cough [R05.1] Start: 03-12-2024 End: 03-12-2024 ambulatory GEORGE MONTES Facility:[facility] Start: 03-12-2024 End: 03-12-2024 Office outpatient visit 15 minutes George Montes MD Work Phone: [facility] Comment on above: Acute cough (Primary Dx); Influenza-like illness Start: 01-16-2024 End: 01-16-2024 ambulatory No Primary Care Physician Facility:[facility] Start: 01-08-2024 End: 01-08-2024 ambulatory No Primary Care Physician Facility:[facility] Start: 01-08-2024 ambulatory No Primary Car e Physician Facility:[facility] Start: 01-08-2024 End: 01-08-2024 Evaluation and management of inpatient No Primary Care Physician Facility:[facility] Start: 01-04-2024 End: 01-04-2024 ambulatory [facility] Start: 01-02-2024 End: 01-02-2024 ambulatory [facility] Start: 12-30-2023 End: 12-30-2023 Emergency department patient visit AMANDO ASTORGA DO [facility] Start: 12-29-2023 End: 12-29-2023 ambulatory [facility] Start: 12-26-2023 End: 12-26-2023 ambulatory [facility] Start: 12-23-2023 End: 12-23-2023 Emergency department patient visit TRUMAN GABRIEL MD [facility] Start: 12-22-2023 End: 12-22-2023 ambulatory [facility] Start: 12-19-2023 End: 12-19-2023 ambulatory [facility] Start: 12-16-2023 End: 12-16-2023 ambulatory [facility] Start: 12-09-2023 End: 12-09-2023 ambulatory [facility] Start: 12-08-2023 End: 12-08-2023 ambulatory NONE PHYSICIAN Facility:A Start: 12-07-2023 ambulatory Tian Gomez Facility:[facility] Start: 12-07-2023 End: 12-07-2023 ambulatory No Primary Care Physician Facility:[facility] Start: 12-06-2023 End: 12-06-2023 ambulatory [facility] Start: 11-30-2023 End: 11-30-2023 ambulatory [facility] Start: 11-28-2023 End: 12-02-2023 ambulatory BERONICA FLOYD MD [facility] Start: 11-28-2023 End: 12-02-2023 Outreach Lab BERONICA FLOYD MD [facility] Start: 11-10-2023 End: 11-10-2023 ambulatory NONE PHYSICIAN Facility:[facility] Start: 11-10-2023 End: 11-10-2023 Patient encounter procedure APURVA SINGH MD [facility] Start: 11-09-2023 End: 11-09-2023 Emergency department patient visit KALA LITTLE DO [facility] Start: 09-29-2023 End: 09-29-2023 ambulatory APURVA SINGH MD Facility:B Start: 09-29-2023 End: 09-29-2023 Patient encounter procedure APURVA SINGH MD [facility] Start: 09-23-2023 End: 09-23-2023 ambulatory APURVA SINGH MD Facility:B Start: 09-23-2023 End: 09-23-2023 Patient encounter procedure APURVA SINGH MD [facility] Start: 09-08-2023 End: 09-12-2023 ambulatory APURVA SINGH MD Facility:B Start: 09-08-2023 End: 09-12-2023 Outreach Lab APURVA SINGH MD [facility] Start: 08-30-2023 End: 08-30-2023 ambulatory YASMIN SUE Facility:[facility] Start: 08-30-2023 End: 08-30-2023 Patient encounter procedure Naye Hancock APRN.[facility] Work Phone: [facility] Comment on above: Chest congestion (Pr imary Dx); Acute cough Start: 08-17-2023 End: 08-17-2023 Emergency department patient visit Karina Hooks Facility:[facility] Start: 02-21-2023 End: 02-23-2023 Evaluation and management of inpatient KARISSA CHIU MD [facility] Start: 02-18-2023 End: 02-18-2023 ambulatory [facility]BOLA Dodge [facility] Start: 02-16-2023 End: 02-20-2023 ambulatory NONE PHYSICIAN Facility:[facility] Start: 02-15-2023 End: 02-15-2023 ambulatory NONE PHYSICIAN Facility:A Start: 02-15-2023 End: 02-15-2023 SAME DAY STAY RENATE BEAVERS DO [facility] Start: 02-15-2023 End: 02-15-2023 ambulatory ZACHARY [facility] Start: 02-12-2023 End: 02-12-2023 ambulatory NONE PHYSICIAN Facility:A Start: 02-12-2023 End: 02-12-2023 SAME DAY STAY YANNI BURNS MD [facility] Start: 02-11-2023 End: 02-11-2023 ambulatory [facility] Start: 02-09-2023 End: 02-10-2023 ambulatory FILI REMY MD Facility:A Start: 02-09-2023 End: 02-10-[address] GÉNESIS BLAKE DO [facility] Start: 02-08-2023 End: 02-08-2023 ambulatory [facility] Start: 02-04-2023 End: 02-04-2023 ambulatory [facility] Start: 02-03-2023 End: 02-04-2023 ambulatory [facility] Start: 02-02-2023 End: 02-02-2023 ambulatory No Primary Care Physician [facility] Work Phone: Start: 02-02-2023 End: 02-02-2023 Patient encounter procedure No Primary Care Physician [facility] Work Phone: Start: 02-01-2023 End: 02-01-2023 ambulatory [facility] Start: 01-28-2023 End: 01-28-2023 ambulatory ESTEVAN [facility] Start: 01-26-2023 End: 01-26-2023 ambulatory FILI REMY MD Facility:A Start: 01-26-2023 End: 01-26-2023 SAME DAY STAY FILI REMY MD [facility] Start: 01-25-2023 End: 01-25-2023 ambulatory [facility] Start: 01-21-2023 End: 01-21-2023 ambulatory [facility] Start: 01-18-2023 End: 01-18-2023 ambulatory ABIMBOLA Dodge [facility] Start: 01-17-2023 End: 01-21-2023 ambulatory NONE PHYSICIAN Facility:[facility] Ob[facility] Start: 01-17-2023 End: 01-21-2023 ambulatory NONE PHYSICIAN Facility:[facility] Start: 01-14-2023 End: 01-14-[address] CLARENCE ARMSTRONG MD Facility:A Start: 01-14-2023 End: 01-17-2023 ambulatory BERONICA Paez MARIEL [facility] Start: 01-12-2023 End: 01-13-2023 ambulatory NONE PHYSICIAN Facility:B Start: 01-12-2023 End: 01-13-2023 Observation APURVA SINGH MD [facility] Start: 01-08-2023 End: 01-08-2023 ambulatory UNKNOWN PROVIDER Facility:B Start: 01-08-2023 End: 01-08-2023 Patient encounter procedure BERONICA FLOYD MD [facility] Start: 01-04-2023 End: 01-05-2023 ambulatory UNKNOWN PROVIDER Facility:B Start: 01-03-2023 End: 01-03-2023 ambulatory NONE PHYSICIAN Facility:B Start: 01-03-2023 End: 01-03-2023 Patient encounter procedure APURVA SINGH MD [facility] Start: 12-29-2022 End: 12-29-2022 ambulatory NONE PHYSICIAN Facility:B Start: 12-29-2022 End: 12-29-2022 SAME DAY STAY MARYJANE AVILA MD [facility] Start: 12-28-2022 End: 12-28-2022 ambulatory NONE PHYSICIAN Facility:B Start: 12-16-2022 End: 12-16-2022 ambulatory NONE PHYSICIAN Facility:B Start: 12-16-2022 End: 12-16-2022 SAME DAY STAY APURVA SINGH MD [facility] Start: 12-16-2022 End: 12-16-2022 Emergency department patient visit NONE PHYSICIAN Facility:B Start: 12-16-2022 End: 12-16-2022 ambulatory NONE PHYSICIAN Facility:B Start: 12-09-2022 End: 12-09-2022 ambulatory NONE PHYSICIAN Facility:B Start: 12-02-2022 End: 12-02-2022 ambulatory NONE PHYSICIAN Facility:B Start: 12-02-2022 End: 12-02-2022 SAME DAY STAY APURVA SINGH MD [facility] Start: 12-02-2022 End: 12-02-2022 ambulatory No Primary Care Physician [facility] Work Phone: Start: 12-02-2022 End: 12-02-2022 Patient encounter procedure No Primary Care Physician [facility] Work Phone: Start: 11-24-2022 End: 11-24-2022 ambulatory NONE PHYSICIAN Facility:B Start: 11-24-2022 End: 11-24-2022 SAME DAY STAY MARYJANE AVILA MD [facility] Start: 11-14-2022 End: 11-14-2022 ambulatory NONE PHYSICIAN Facility:B Start: 11-12-2022 End: 11-12-2022 ambulatory NONE PHYSICIAN Facility:B Start: 11-12-2022 End: 11-12-2022 SAME DAY STAY MARYJANE AVILA MD [facility] Start: 11-11-2022 End: 11-11-2022 ambulatory NONE PHYSICIAN Facility:B Start: 11-11-2022 End: 11-11-2022 SAME DAY STAY APURVA SINGH MD [facility] Start: 11-10-2022 End: 11-14-2022 ambulatory JAIDA JUAREZ [employer] PARAPROFESSIONAL-CNM Facility:B Start: 11-10-2022 End: 11-14-2022 Outreach Lab JAIDA JUAREZ SPECIAL POPULATION PARAPROFESSIONAL-CNM [facility] Start: 11-09-2022 Non-patient / Non-visit No [facility] Physician [facility] Start: 11-09-2022 End: 11-09-2022 ambulatory No Primary Care Physician [facility] Work Phone: Start: 11-09-2022 End: 11-09-2022 Patient encounter procedure No Primary Care Physician [facility] Work Phone: Start: 10-29-2022 End: 10-29-2022 ambulatory NONE PHYSICIAN Facility:B Start: 10-29-2022 End: 10-29-2022 Patient encounter procedure APURVA SINGH MD [facility] Start: 10-27-2022 End: 10-27-2022 ambulatory NONE PHYSICIAN Facility:B Start: 10-15-2022 End: 10-15-2022 ambulatory NONE PHYSICIAN Facility:B Start: 10-07-2022 End: 10-07-2022 ambulatory APURVA SINGH MD Facility:B Start: 10-07-2022 End: 10-07-2022 Patient encounter procedure APURVA SINGH MD [facility] Start: 10-06-2022 End: 10-06-2022 Subsequent hospital visit by physician Beatriz Rodgers MD Work Phone: [facility] Comment on above: Genetic testing Start: 08-26-2022 End: 08-30-2022 Outreach Lab APURVA SINGH MD [facility] Start: 07-19-2022 End: 07-19-2022 Patient encounter procedure MARYJANE AVILA MD [facility] Start: 07-03-2022 End: 07-23-2023 Lab-Standing Order MARYJANE AVILA MD [facility] Start: 04-26-2022 End: 04-26-2022 Emergency department patient visit [facility] Start: 04-26-2022 End: 04-26-2022 Patient encounter procedure APURVA SINGH MD [facility] Start: 04-15-2022 End: 04-15-2022 Patient encounter procedure APURVA SINGH MD [facility] Start: 03-22-2022 End: 03-22-2022 Emergency department patient visit [facility] Start: 02-18-2022 End: 02-22-2022 Outreach Lab APURVA SINGH MD [facility] Start: 11-10-2021 End: 11-12-2021 Evaluation and management of inpatient BERONICA FLOYD MD [facility] Start: 11-02-2021 End: 11-06-2021 Outreach Lab APURVA SINGH MD [facility] Start: 10-19-2021 End: 10-19-2021 SAME DAY STAY BERONICA FLOYD MD [facility] Start: 10-09-2021 End: 10-09-2021 SAME DAY STAY CHAU HOOD [facility] Start: 10-01-2021 End: 10-01-2021 SAME DAY STAY APURVA SINGH MD [facility] Start: 09-15-2021 End: 09-15-2021 Patient encounter procedure APURVA SINGH MD [facility] Start: 09-10-2021 End: 09-10-2021 Patient encounter procedure Dianelys Marroquin APRN.CNP Work Phone: [facility] Comment on above: Lower abdominal pain (Primary Dx); Vaginal bleeding in , third trimester Start: 09-07-2021 End: 09-07-2021 SAME DAY STAY BERONICA FLOYD MD [facility] Start: 08-28-2021 End: 09-01-2021 Outreach Lab APURVA SINGH MD [facility] Start: 08-27-2021 End: 08-31-2021 Outreach Lab APURVA SINGH MD [facility] Start: 08-27-2021 End: 08-27-2021 Patient encounter procedure APURVA SINGH MD [facility] Start: 08-26-2021 End: 08-26-2021 SAME DAY STAY BERONICA FLOYD MD [facility] Start: 07-20-2021 End: 07-20-2021 Patient encounter procedure APURVA SINGH MD [facility] Start: 06-29-2021 End: 07-03-2021 Outreach Lab MARYJANE AVILA MD [facility] Start: 06-14-2021 End: 06-14-2021 Emergency department patient visit NEMESIO GANN MD [facility] Start: 06-03-2021 End: 06-03-2021 Patient encounter procedure [facility] Start: 06-03-2021 End: 06-03-2021 Emergency department patient visit [facility] Start: 05-11-2021 End: 05-11-2021 SAME DAY STAY APURVA SINGH MD [facility] Start: 05-01-2021 End: 05-01-2021 Patient encounter procedure APURVA SINGH MD [facility] Start: 04-14-2021 End: 04-14-2021 Emergency department patient visit [facility] Start: 04-13-2021 End: 04-13-2021 Emergency department patient visit [facility] Start: 04-13-2021 End: 04-13-2021 Patient encounter procedure KIKI HIGHTOWER SPECIAL POPULATION PARAPROFESSIONAL-[employer]IV[employer]ITY INTERN [facility] Start: 03-31-2021 End: 04-04-2021 Outreach Lab MARYJANE AVILA MD [facility] Start: 03-30-2021 End: 04-17-2022 Lab-Standing Order APURVA SINGH MD [facility] Start: 02-12-2021 End: 02-12-2021 Patient encounter procedure APURVA SINGH MD [facility] Start: 02-09-2021 End: 02-13-2021 Outreach Lab APURVA SINGH MD [facility] Start: 01-25-2021 End: 01-25-2021 Emergency department patient visit NEMESIO GANN MD [facility] Start: 01-06-2021 End: 01-10-2021 Outreach Lab CHAU GARCIA APRN-CNM [facility] Start: 10-23-2019 End: 01-14-2021 Lab-Standing Order DR APURVA SINGH MD [facility] Procedures Date Procedure Procedure Detail Performing Clinician Start: 05-14-2024 Radex ankle complete minimum 3 views Yasmin CANDELARIA Work Phone: Start: 04-19-2024 Radex ankle complete minimum 3 views Naye Hancock APRN.[employer] Work Phone: Start: 03-12-2024 Radiologic exam ches t 2 views George Montes MD Work Phone: Start: 02-14-2023 section APURVA SINGH MD Start: 11-09-2022 Urine culture No Primar y Care Physician Start: 04-26-2022 Transvaginal echography Start: 11-10-2021 section APURVA SINGH MD Start: 04-14-2021 Plain X-ray of femur Start: 06-05-2020 section CHAU GARCIA SPECIAL [employer]ULATION PARAPROFESSIONAL-CNM Start: 07-16-2019 section CHAU GARCIA APRN-CN Start: 11-21-2017 delivery - delivered (finding) CHAU GARCIA [employer] POPULATION PARAPROFESSIONAL-CN H/O: section Previous c esarean section( Confirmed ) BERONICA FLOYD MD Plan of Treatment Date Care Activity Detail Author Start: 06-11-2024 End: 06-11-2024 Patient encounter procedure 06/11/2024 1:45 PM EDT Office Visit Podiatry [address] [place], [place] [id number] Dennis Mario [address] [place], [place] [id number] Foot pain, left [M79.672] Podiatry Comment on above: Foot pain, left [M79 .672] Start: 05-15-2024 End: 05-15-2024 Patient encounter procedure 05/15/2024 2:00 PM EDT Office Visit Family Ana Luisa Marroquin [address] [place] [address] Justin Mckenzie V, DO [address] [place] [address] Foot pain, left [M79.672] [facility] Comment on above: Foot pain, left [M79 .672] Start: 12-20-2023 RSV Vaccine (1 - Ris k 1-dose series) RSV Vaccine (1 - Risk 1-dose series) [facility] Start: 10-16-2023 Covid-19 Vaccine ( season) Covid-19 Vaccine ( season) [facility] Start: 10-16-2023 Influenza vaccination Influenza Vacc ine (#1) [facility] Start: 02-14-2023 Behavioral Health Screening Behavioral Health Screening [facility] Start: 02-02-2023 Nonstress test [facility] Start: 02-02-2023 Obstetric monitoring [facility] Start: 02-02-2023 [facility] Start: 02-02-2023 Vital signs measurements [facility] Start: 02-02-2023 Patient discharge [facility] Start: 12-02-2022 Nonstress test [facility] Start: 12-02-2022 Obstetric monitoring [facility] Start: 12-02-2022 Vital signs measurements [facility] Start: 12-02-2022 [facility] Start: 12-02-2022 Patient discharge [facility] Start: 11-09-2022 Iv infusion ther pro ph addl sequential to 1 hr TX/PROPH/DG ADDL SEQ IV INF [facility] Start: 11-09-2022 Iv infusion therapy/prophylaxis /dx 1st to 1 hr THER/PROPH/DIAG IV INF INIT [facility] Start: 11-09-2022 [facility] Start: 11-09-2022 Nonstress test [facility] Start: 11-09-2022 Obstetric monitoring [facility] Start: 11-09-2022 Vital signs measurements [facility] Start: 11-09-2022 [facility] Start: 11-09-2022 Patient discharge [facility] Start: 10-15-2022 Covid-19 Vaccine ( season) Covid-19 Vaccine ( season) [facility] Start: 10-15-2022 FLU (#1) FLU (#1) [facility] Start: 06-16-2022 Tetanus Diphtheria a nd Pertussis Vaccines (7 - Td or Tdap) Tetanus Diphtheria and Pertussis Vaccines (7 - Td or Tdap) [facility] Start: 06-16-2022 Urine microalbumin profile DTaP,Tdap,Td Vaccine (7 - Td or Tdap) [facility] Start: 03-22-2022 Urine test [facility] Start: 2021 Microscopic observat ion [Identifier] in Cervix by Cyto stain Pap Smear [facility] Start: 2021 Screening for malign ant neoplasm of cervix Cervical Cancer Screening [facility] Start: 10-15-2021 Influenza vaccination INFLUENZA (#1) [facility] Start: 06-03-2021 External ecg scannin g analysis report ECG MONIT/REPRT UP TO 48 HRS [facility] Work Phone: Start: 06-03-2021 Xtrnl ecg & 48 hr recording ECG MONIT/REPRT UP TO 48 HRS [facility] Work Phone: Start: 11-27-2019 Urine microalbumin profile DTAP,TDAP,TD (1 - Tdap) [facility] Start: 2018 Anxiety Screening Anxiety Screening [facility] Start: 2018 CHLAMYDIA SCREENING (18-24) CHLAMYDIA SCREENING (18-24) [facility] Start: 2018 Depression Screening Depression Scre ening [facility] Start: 2018 GC (GONORRHEA) SCREE MANUEL (18-24) GC (GONORRHEA) SCREENING (18-24) [facility] Start: 2018 Hearing Screening Hearing Screening [facility] Start: 2018 HEPATITIS C SCREENING HEPATITIS C [facility] Start: 2018 Hepatitis C screening Hepatitis C [facility] Start: 2018 HIV SCREENING HIV SCREENING [facility] Start: 2018 HIV screening HIV Screening [facility] Start: 2018 Screening for Chlamy hiram trachomatis Chlamydia Screening (18-24) [facility] Start: 2016 MenB (1 of 2 - MenB 2-Dose Series Bexsero) MenB (1 of 2 - MenB 2-Dose Series Bexsero) [facility] Start: 2016 Meningococcal B Vacc ine (1 of 2 - Standard) Meningococcal B Vaccine (1 of 2 - Standard) [facility] Start: 2016 Meningococcal B Vacc ine: Consider Based On Risk (1 of 2 - Patient Seeks Protection) Meningococcal B Vaccine: Consider Based On Risk (1 of 2 - Patient Seeks Protection) [facility] Start: 11-27-2015 HPV Vaccine (1 - 3-d ose series) HPV Vaccine (1 - 3-dose series) [facility] Start: 11-27-2015 Vision Screening Vision Screening [facility] Start: 2014 PEDS TO ADULT TRANSI TION ANNUAL ASSESSMENT PEDS TO ADULT TRANSITION ANNUAL ASSESSMENT [facility] Start: 2012 Adult depression screening assessment DEPRESSION SCREENING [facility] Start: 2012 PEDS TO ADULT TRANSI TION INITIAL DISCUSSION PEDS TO ADULT TRANSITION INITIAL DISCUSSION [facility] Start: 11-27-2011 HPV (1 - 2-dose series) HPV (1 - 2-d ose series) [facility] Start: 11-27-2011 HPV VACCINE (1 - 2-d ose series) HPV VACCINE (1 - 2-dose series) [facility] Start: 2010 MENINGOCOCCAL B: Consider based on risk (1 of 2 - Risk Bexsero 2-dose series) MENINGOCOCCAL B: Consider based on risk (1 of 2 - Risk Bexsero 2-dose series) [facility] Start: 05-27-2001 COVID-19 (#1) COVID-19 (#1) [facility] Start: 05-27-2001 COVID-19 VACCINE (#1) COVID-19 VACCI NE (#1) [facility] Bilirubin measuremen t, urine [facility] COVID & INFLUENZA A/ B & RSV PCR, ROUTINE COVID & INFLUENZA A/B & RSV PCR, ROUTINE Microbiology Routine Acute cough 03/12/2024 2:42 PM EST [facility] Work Phone: 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 Lab Routine Genetic testing 10/06/2022 4:50 PM EDT [facility] Work Phone: Hemoglobin [Presence ] in Urine [facility] Measurement of keton es in urine using dipstick [facility] Microscopic urinalysis [facility] Patient Education [facility] Work Phone: Patient referral [facility] Work Phone: pH of Urine [facility] Specific gravity of Urine [facility] Urinalysis, blood, qualitative [facility] Urine dipstick for glucose [facility] Urine dipstick for leukocyte esterase [facility] Urine dipstick for nitrite [facility] Urine dipstick for protein [facility] Urine examination [facility] Urine microscopy: epithelial cells [facility] Urine Microscopy: wh ite cells [facility] Urobilinogen [Presen ce] in Urine [facility] Immunizations Immunization Date Immunization Notes Care Provider [facility] 06-16-2012 hepatitis A vaccine, pediatric/adolescent dosage, 2 dose schedule Beatriz Rodgers MD Work Phone: [facility] 06-16-2012 meningococcal polysaccharide (groups A, C, Y and W-135) diphtheria toxoid conjugate vaccine (MCV4P) Beatriz Rodgers MD Work Phone: [facility] 06-16-2012 tetanus toxoid, redu cecilia diphtheria toxoid, and acellular pertussis vaccine, adsorbed Beatriz Rodgers MD Work Phone: [facility] 12-21-2010 influenza virus vacc ine, live, attenuated, for intranasal use Beatriz Rodgers MD Work Phone: [facility] 12-21-2010 influenza virus vacc ine, unspecified formulation Naye Hancock APRN.CNP Work Phone: [facility] 05-11-2006 diphtheria, tetanus toxoids and acellular pertussis vaccine Beatriz Rodgers MD Work Phone: [facility] 05-11-2006 hepatitis A vaccine, pediatric/adolescent dosage, 2 dose schedule Beatriz Rodgers MD Work Phone: [facility] 05-11-2006 measles, mumps, rube lla, and varicella virus vaccine Beatriz Rodgers MD Work Phone: [facility] 05-11-2006 poliovirus vaccine, inactivated Beatriz Rodgers MD Work Phone: [facility] 12-11-2003 diphtheria, tetanus toxoids and acellular pertussis vaccine Beatriz Rodgers MD Work Phone: [facility] 07-19-2003 pneumococcal conjuga te vaccine, 7 valent Beatriz Rodgers MD Work Phone: [facility] 07-19-2003 poliovirus vaccine, inactivated Beatriz Rodgers MD Work Phone: [facility] 07-19-2003 varicella virus vaccine Tianna Rodgers MD Work Phone: [facility] 02-20-2003 diphtheria, tetanus toxoids and acellular pertussis vaccine Beatriz Rodgers MD Work Phone: [facility] 02-20-2003 haemophilus influenz ae type b vaccine, PRP-T conjugate Beatriz Rodgers MD Work Phone: [facility] 02-20-2003 hepatitis B vaccine, pediatric or pediatric/adolescent dosage Beatriz Rodgers MD Work Phone: [facility] 02-20-2003 measles, mumps and rubella virus vaccine Beatriz Rodgers MD Work Phone: [facility] 02-20-2003 poliovirus vaccine, inactivated Beatriz Rodgers MD Work Phone: [facility] 11-17-2001 diphtheria, tetanus toxoids and acellular pertussis vaccine Beatriz Rodgers MD Work Phone: [facility] 11-17-2001 haemophilus influenz ae type b vaccine, PRP-T conjugate Beatriz Rodgers MD Work Phone: [facility] 11-17-2001 pneumococcal conjuga te vaccine, 7 valent Beatriz Rodgers MD Work Phone: [facility] 11-17-2001 poliovirus vaccine, inactivated Beatriz Rodgers MD Work Phone: [facility] 05-01-2001 diphtheria, tetanus toxoids and acellular pertussis vaccine Beatriz Rodgers MD Work Phone: [facility] 05-01-2001 haemophilus influenz ae type b vaccine, PRP-T conjugate Beatriz Rodgers MD Work Phone: [facility] 05-01-2001 hepatitis B vaccine, pediatric or pediatric/adolescent dosage Beatriz Rodgers MD Work Phone: [facility] 2000 hepatitis B vaccine, pediatric or pediatric/adolescent dosage Beatriz Rodgers MD Work Phone: [facility] Payers Date Payer Category Payer Self-pay [id number] 2022 Medicaid [id number] 2022 Unknown [facility] [id number] 2022-Present [address] [place] [address] [id number] 2014 Unknown [id number] 2014 Unknown [id number] 2012 Medicaid [employer] [employer] [id number] 2012-Present [phone] [address] [place] [address] Medicaid [id number]. [id number] 2000 Unknown [id number] 2.16.840.1.327661.3.579.2.627 2000 Unknown [id number] 2.16.840.1.424185.3.579.2.627 2000 Unknown [id number] 2.16.840.1.502476.3.579.2.627 2000 Unknown [id number] 2.16.840.1.366954.3.579.2.627 2000 Unknown [id number] 2.16.840.1.229667.3.579.2.627 2000 Unknown [id number] 2.16840.1.876639.3.579.2.627 2000 Unknown [id number] 2.16.840.1.084735.3.579.2.627 2000 Unknown [id number] 2.16.840.1.997244.3.579.2.627 2000 Unknown [id number] 2.16.840.1.743380.3.579.2.627 2000 Unknown [id number] 2.16.840.1.418891.3.579.2.627 2000 Unknown [id number] 2.16.840.1.952928.3.579.2.627 2000 Unknown [id number] 2.16.840.1.691761.3.579.2.627 2000 Unknown [id number] 2.16.840.1.440301.3.579.2.627 2000 Unknown [id number] 2.16.840.1.065780.3.579.2.627 2000 Unknown [id number] 2.16.840.1.785202.3.579.2.627 2000 Unknown [id number] 2.16.840.1.519960.3.579.2.627 2000 Unknown [id number] 2.16.840.1.180828.3.579.2.627 2000 Unknown [id number] 2.16.840.1.404368.3.579.2.627 2000 Unknown [id number] 2.16.840.1.418812.3.579.2.627 2000 Unknown [id number] 2.16.840.1.451566.3.579.2.7 2000 Unknown [id number] 2.16.840.1.920703.3.579.2.627 2000 Unknown [id number] 2.16.840.1.671365.3.579.2.627 2000 Unknown [id number] 2.16.840.1.298584.3.579.2.627 2000 Unknown [id number] 2.16.840.1.463484.3.579.2.627 2000 Unknown [id number] 2.16.840.1.729120.3.579.2.7 2000 Unknown [id number] 2.16.840.1.638921.3.579.2.627 2000 Unknown [id number] 2.16.840.1.567841.3.579.2.627 2000 Unknown [id number] 2.16.840.1.136465.3.579.2. 2000 Unknown [id number] 2.16.840.1.435103.3.579.2.627 2000 Unknown [id number] 2.16.840.1.968838.3.579.2.627 2000 Unknown [id number] 2.16.840.1.799323.3.579.2.627 2000 Unknown [id number] 2.16.840.1.470091.3.579.2.627 2000 Unknown [id number] 2.16.840.1.782607.3.579.2.627 2000 Unknown [id number] 2.16.840.1.555983.3.579.2.627 2000 Unknown [id number] 2.16.840.1.966488.3.579.2.627 2000 Unknown [id number] 2.16.840.1.391302.3.579.2.627 2000 Unknown [id number] 2.16.840.1.757978.3.579.2.627 2000 Unknown [id number] 2.16.840.1.444283.3.579.2.627 2000 Unknown [id number] 2.16.840.1.074656.3.579.2.479 2000 Unknown [id number] 2.16.840.1.336649.3.579.2.479 2000 Unknown [id number] 2.16.840.1.958773.3.579.2.479 2000 Unknown [id number] 2.16.840.1.390132.3.579.2.479 2000 Unknown [id number] 2.16.840.1.978433.3.579.2.479 2000 Unknown [id number] 2.16.840.1.687370.3.579.2.479 2000 Unknown [id number] 2.16.840.1.358878.3.579.2.479 2000 Unknown [id number] 2.16.840.1.495915.3.579.2.479 2000 Unknown [id number] 2.16.840.1.393891.3.579.2.479 2000 Unknown [id number] 2.16.840.1.229978.3.579.2.479 2000 Unknown [id number] 2.16.840.1.114824.3.579.2.479 2000 Unknown [id number] 2.16.840.1.925558.3.579.2.479 2000 Unknown [id number] 2.16.840.1.879330.3.579.2479 2000 Unknown [id number] 2.16.840.1.373211.3.579.2479 2000 Unknown [id number] 2.16840.1.845415.3.579.2.479 2000 Unknown [id number] 2.16840.1.749155.3.579.2.479 2000 Unknown [id number] 2.16840.1.729236.3.579.2.479 2000 Unknown [id number] 2.16.840.1.678477.3.579.2.479 2000 Unknown [id number] 2.16840.1.815890.3.579.2.479 2000 Unknown [id number] 2.16.840.1.016312.3.579.2.479 2000 Unknown [id number] 2.16.840.1.083278.3.579.2.479 2000 Unknown [id number] 2.16.840.1.697241.3.579.2.479 2000 Unknown [id number] 2.16.840.1.393652.3.579.2.479 2000 Unknown [id number] 2.16.840.1.047082.3.579.2.479 2000 Unknown [id number] 2.16.840.1.776417.3.579.2.479 2000 Unknown [id number] 2.16.840.1.017533.3.579.2.479 2000 Unknown [id number] 2.16.840.1.114133.3.579.2.479 2000 Unknown [id number] 2.16.840.1.694770.3.579.2.479 2000 Unknown [id number] 2.16.840.1.271220.3.579.2.479 2000 Unknown [id number] 2.16.840.1.986199.3.579.2.479 Unknown [id number] 2.16.840.1.887692.3.579.2.462 Unknown [id number] 2.16.840.1.190291.3.579.2.462 Unknown [id number] 2.16.840.1.342991.3.579.2.462 Unknown [id number] 2.16.840.1.981589.3.579.2.462 Unknown [id number] 2.16.840.1.509620.3.579.2.462 Unknown [id number] 2.16.840.1.705723.3.579.2.462 Unknown [id number] 2.16.840.1.116150.3.579.2.462 Social History Date Type Detail Facility Start: 06-26-2019 End: 08-30-2023 Never smoked tobacco (finding) [facility] Start: 2000 Sex Assigned At Female A [facility] Start: 06-03-2021 End: 04-26-2022 Tobacco smoking status OHIS Unknown if ever smoked [facility] Start: 01-15-2019 None [facility] Start: 02-21-2019 With Family [facility] Start: 04-11-2013 End: 08-30-2023 Tobacco use and exposure Smokeless tobacco non-user [facility] Work Phone: Start: 09-10-2021 End: 05-14-2024 Alcohol intake Lifetime non-drinker (finding) [facility] Start: 09-10-2021 History SDOH Alcohol Frequency 1 [facility] Start: 11-02-2018 [facility] Start: 2000 Sex Assigned At Not on file [facility] Start: 08-31-2021 End: 09-10-2021 Exposure to SARS-CoV-2 (event) Not sure [facility] Start: 09-20-2018 Alcohol intake Not Asked [facility] Start: 08-30-2023 End: 05-15-2024 Gender identity Not on file [facility] Start: 08-30-2023 End: 05-15-2024 History of Social function [facility] National Score (1-100), lower number is lower risk Not on file [facility] NEGATED: Highlighted row [facility] Medical Equipment Procedure Code Equipment Code Equipment Origin al Text Equipment Identifier Dates See Instructions , Check 4x/Day, # 1 EA, 0 Refill(s), Pharmacy: [facility] #[id number], Encounter for supervision of normal in multigravida in second trimester Previous section, 170.2, cm, 12/20/22 10:27:00 EST, Height, 118.2, kg, 12/16/22 9:12:00 EDT, Dosing Weight Start: 12-20-2022 See Instructions , Check 4x/Day, # 1 EA, 0 Refill(s), Pharmacy: [facility] #[id number], Encounter for supervision of normal in multigravida in second trimester Previous section, 170.2, cm, 12/20/22 10:27:00 EST, Height, 118.2, kg, 12/16/22 9:12:00 EDT, Dosing Weight Start: 12-20-2022 See Instructions , Check 4x/Day, # 1 EA, 0 Refill(s), Pharmacy: [facility] #[id number], Encounter for supervision of normal in multigravida in second trimester Previous section, 170.2, cm, 12/20/22 10:27:00 EST, Height, 118.2, kg, 12/16/22 9:12:00 EDT, Dosing Weight Start: 12-20-2022 See Instructions , Check 4x/Day, # 1 EA, 0 Refill(s), Pharmacy: [facility] #[id number], Encounter for supervision of normal in multigravida in second trimester Previous section, 170.2, cm, 12/20/22 10:27:00 EST, Height, 118.2, kg, 12/16/22 9:12:00 EDT, Dosing Weight Start: 12-20-2022 See Instructions , Check 4x/Day, # 100 EA, 2 Refill(s), Pharmacy: [facility] #[id number], Encounter for supervision of normal in multigravida in third trimester GDM, class A2, 160, cm, 01/04/23 11:32:00 EST, Height, 120, kg, 01/04/23 11:32:00 EST, Dosing Weight Start: 01-08-2023 See Instructions , Check 4x/Day, # 1 EA, 0 Refill(s), Pharmacy: [facility] #[id number], Encounter for supervision of normal in multigravida in second trimester Previous section, 170.2, cm, 12/20/22 10:27:00 EST, Height, 118.2, kg, 12/16/22 9:12:00 EDT, Dosing Weight Start: 12-20-2022 See Instructions , Check 4x/Day, # 100 EA, 2 Refill(s), Pharmacy: [facility] #[id number], Encounter for supervision of normal in multigravida in third trimester GDM, class A2, 160, cm, 01/04/23 11:32:00 EST, Height, 120, kg, 01/04/23 11:32:00 EST, Dosing Weight Start: 01-08-2023 See Instructions , Check 4x/Day, # 1 EA, 0 Refill(s), Pharmacy: [facility] #[id number], Encounter for supervision of normal in multigravida in second trimester Previous section, 170.2, cm, 12/20/22 10:27:00 EST, Height, 118.2, kg, 12/16/22 9:12:00 EDT, Dosing Weight Start: 12-20-2022 See Instructions , Check 4x/Day, # 100 EA, 2 Refill(s), Pharmacy: [facility] #[id number], Encounter for supervision of normal in multigravida in third trimester GDM, class A2, 160, cm, 01/04/23 11:32:00 EST, Height, 120, kg, 01/04/23 11:32:00 EST, Dosing Weight Start: 01-08-2023 See Instructions , Check 4x/Day, # 1 EA, 0 Refill(s), Pharmacy: [facility] #[id number], Encounter for supervision of normal in multigravida in second trimester Previous section, 170.2, cm, 12/20/22 10:27:00 EST, Height, 118.2, kg, 12/16/22 9:12:00 EDT, Dosing Weight Start: 12-20-2022 See Instructions , Check 4x/Day, # 100 EA, 2 Refill(s), Pharmacy: [facility] #[id number], Encounter for supervision of normal in multigravida in third trimester GDM, class A2, 160, cm, 01/04/23 11:32:00 EST, Height, 120, kg, 01/04/23 11:32:00 EST, Dosing Weight Start: 01-08-2023 See Instructions , Check 4x/Day, # 1 EA, 0 Refill(s), Pharmacy: [facility] #[id number], Encounter for supervision of normal in multigravida in second trimester Previous section, 170.2, cm, 12/20/22 10:27:00 EST, Height, 118.2, kg, 12/16/22 9:12:00 EDT, Dosing Weight Start: 12-20-2022 See Instructions , Check 4x/Day, # 100 EA, 2 Refill(s), Pharmacy: [facility] #[id number], Encounter for supervision of normal in multigravida in third trimester GDM, class A2, 160, cm, 01/04/23 11:32:00 EST, Height, 120, kg, 01/04/23 11:32:00 EST, Dosing Weight Start: 01-08-2023 See Instructions , Check 4x/Day, # 1 EA, 0 Refill(s), Pharmacy: [facility] #[id number], Encounter for supervision of normal in multigravida in second trimester Previous section, 170.2, cm, 12/20/22 10:27:00 EST, Height, 118.2, kg, 12/16/22 9:12:00 EDT, Dosing Weight Start: 12-20-2022 See Instructions , Check 4x/Day, # 100 EA, 2 Refill(s), Pharmacy: [facility] #[id number], Encounter for supervision of normal in multigravida in third trimester GDM, class A2, 160, cm, 01/04/23 11:32:00 EST, Height, 120, kg, 01/04/23 11:32:00 EST, Dosing Weight Start: 01-08-2023 See Instructions , Check 4x/Day, # 1 EA, 0 Refill(s), Pharmacy: [facility] #[id number], Encounter for supervision of normal in multigravida in second trimester Previous section, 170.2, cm, 12/20/22 10:27:00 EST, Height, 118.2, kg, 12/16/22 9:12:00 EDT, Dosing Weight Start: 12-20-2022 See Instructions , Check 4x/Day, # 100 EA, 2 Refill(s), Pharmacy: [facility] #[id number], Encounter for supervision of normal in multigravida in third trimester GDM, class A2, 160, cm, 01/04/23 11:32:00 EST, Height, 120, kg, 01/04/23 11:32:00 EST, Dosing Weight Start: 01-08-2023 See Instructions , Check 4x/Day, # 1 EA, 0 Refill(s), Pharmacy: [facility] #[id number], Encounter for supervision of normal in multigravida in second trimester Previous section, 170.2, cm, 12/20/22 10:27:00 EST, Height, 118.2, kg, 12/16/22 9:12:00 EDT, Dosing Weight Start: 12-20-2022 See Instructions , Check 4x/Day, # 100 EA, 2 Refill(s), Pharmacy: [facility] #[id number], Encounter for supervision of normal in multigravida in third trimester GDM, class A2, 160, cm, 01/04/23 11:32:00 EST, Height, 120, kg, 01/04/23 11:32:00 EST, Dosing Weight Start: 01-08-2023 See Instructions , Check 4x/Day, # 1 EA, 0 Refill(s), Pharmacy: [facility] #[id number], Encounter for supervision of normal in multigravida in second trimester Previous section, 170.2, cm, 12/20/22 10:27:00 EST, Height, 118.2, kg, 12/16/22 9:12:00 EDT, Dosing Weight Start: 12-20-2022 See Instructions , Check 4x/Day, # 100 EA, 2 Refill(s), Pharmacy: [facility] #[id number], Encounter for supervision of normal in multigravida in third trimester GDM, class A2, 160, cm, 01/04/23 11:32:00 EST, Height, 120, kg, 01/04/23 11:32:00 EST, Dosing Weight Start: 01-08-2023 See Instructions , Check 4x/Day, # 1 EA, 0 Refill(s), Pharmacy: [facility] #[id number], Encounter for supervision of normal in multigravida in second trimester Previous section, 170.2, cm, 12/20/22 10:27:00 EST, Height, 118.2, kg, 12/16/22 9:12:00 EDT, Dosing Weight Start: 12-20-2022 See Instructions , Check 4x/Day, # 100 EA, 2 Refill(s), Pharmacy: [facility] #[id number], Encounter for supervision of normal in multigravida in third trimester GDM, class A2, 160, cm, 01/04/23 11:32:00 EST, Height, 120, kg, 01/04/23 11:32:00 EST, Dosing Weight Start: 01-08-2023 See Instructions , Check 4x/Day, # 1 EA, 0 Refill(s), Pharmacy: [facility] #[id number], Encounter for supervision of normal in multigravida in second trimester Previous section, 170.2, cm, 12/20/22 10:27:00 EST, Height, 118.2, kg, 12/16/22 9:12:00 EDT, Dosing Weight Start: 12-20-2022 See Instructions , Check 4x/Day, # 100 EA, 2 Refill(s), Pharmacy: [facility] #[id number], Encounter for supervision of normal in multigravida in third trimester GDM, class A2, 160, cm, 01/04/23 11:32:00 EST, Height, 120, kg, 01/04/23 11:32:00 EST, Dosing Weight Start: 01-08-2023 See Instructions , Check 4x/Day, # 1 EA, 0 Refill(s), Pharmacy: [facility] #[id number], Encounter for supervision of normal in multigravida in second trimester Previous section, 170.2, cm, 12/20/22 10:27:00 EST, Height, 118.2, kg, 12/16/22 9:12:00 EDT, Dosing Weight Start: 12-20-2022 See Instructions , Check 4x/Day, # 100 EA, 2 Refill(s), Pharmacy: [facility] #[id number], Encounter for supervision of normal in multigravida in third trimester GDM, class A2, 160, cm, 01/04/23 11:32:00 EST, Height, 120, kg, 01/04/23 11:32:00 EST, Dosing Weight Start: 01-08-2023 See Instructions , Check 4x/Day, # 1 EA, 0 Refill(s), Pharmacy: [facility] #[id number], Encounter for supervision of normal in multigravida in second trimester Previous section, 170.2, cm, 12/20/22 10:27:00 EST, Height, 118.2, kg, 12/16/22 9:12:00 EDT, Dosing Weight Start: 12-20-2022 See Instructions , Check 4x/Day, # 100 EA, 2 Refill(s), Pharmacy: [facility] #[id number], Encounter for supervision of normal in multigravida in third trimester GDM, class A2, 160, cm, 01/04/23 11:32:00 EST, Height, 120, kg, 01/04/23 11:32:00 EST, Dosing Weight Start: 01-08-2023 See Instructions , Check 4x/Day, # 1 EA, 0 Refill(s), [facility]acy: [facility] #[id number], Encounter for supervision of normal in multigravida in second trimester Previous section, 170.2, cm, 12/20/22 10:27:00 EST, Height, 118.2, kg, 12/16/22 9:12:00 EDT, Dosing Weight Start: 12-20-2022 See Instructions , Check 4x/Day, # 100 EA, 2 Refill(s), [id number], Encounter for supervision of normal in multigravida in third trimester GDM, class A2, 160, cm, 01/04/23 11:32:00 EST, Height, 120, kg, 01/04/23 11:32:00 EST, Dosing Weight Start: 01-08-2023 See Instructions , Check 4x/Day, # 1 EA, 0 Refill(s), [facility]: [facility] #[id number], Encounter for supervision of normal in multigravida in second trimester Previous section, 170.2, cm, 12/20/22 10:27:00 EST, Height, 118.2, kg, 12/16/22 9:12:00 EDT, Dosing Weight Start: 12-20-2022 See Instructions , Check 4x/Day, # 100 EA, 2 Refill(s), Pharmacy: [facility] #[id number], Encounter for supervision of normal in multigravida in third trimester GDM, class A2, 160, cm, 01/04/23 11:32:00 EST, Height, 120, kg, 01/04/23 11:32:00 EST, Dosing Weight Start: 01-08-2023 See Instructions , Check 4x/Day, # 1 EA, 0 Refill(s), Pharmacy: [facility] #[id number], Encounter for supervision of normal in multigravida in second trimester Previous section, 170.2, cm, 12/20/22 10:27:00 EST, Height, 118.2, kg, 12/16/22 9:12:00 EDT, Dosing Weight Start: 12-20-2022 See Instructions , Check 4x/Day, # 100 EA, 2 Refill(s), [id number], Encounter for supervision of normal in multigravida in third trimester GDM, class A2, 160, cm, 01/04/23 11:32:00 EST, Height, 120, kg, 01/04/23 11:32:00 EST, Dosing Weight Start: 01-08-2023 See Instructions , Check 4x/Day, # 1 EA, 0 Refill(s), [facility]acy: [facility] #[id number], Encounter for supervision of normal in multigravida in second trimester Previous section, 170.2, cm, 12/20/22 10:27:00 EST, Height, 118.2, kg, 12/16/22 9:12:00 EDT, Dosing Weight Start: 12-20-2022 See Instructions , Check 4x/Day, # 120 EA, 3 Refill(s), [facility] #[id number], Gestational diabetes, 160, cm, 11/21/23 9:40:00 EDT, Height, 125, kg, 02/21/23 10:34:00 EST, Dosing Weight Start: 11-21-2023 See Instructions , Check 4x/Day, # 1 EA, 0 Refill(s), [facility] #[id number], Gestational diabetes, 160, cm, 11/21/23 9:40:00 EDT, Height, 125, kg, 02/21/23 10:34:00 EST, Dosing Weight Start: 11-21-2023 See Instructions , Check 4x/Day, # 120 EA, 3 Refill(s), [facility] #[id number], Gestational diabetes, 160, cm, 11/21/23 9:40:00 EDT, Height, 125, kg, 02/21/23 10:34:00 EST, Dosing Weight Start: 11-21-2023 See Instructions , Check 4x/Day, # 1 EA, 0 Refill(s), [facility]acy: [facility] #[id number], Gestational diabetes, 160, cm, 11/21/23 9:40:00 EDT, Height, 125, kg, 02/21/23 10:34:00 EST, Dosing Weight Start: 11-21-2023 See Instructions , Check 4x/Day, # 120 EA, 3 Refill(s), [facility]acy: [facility] #[id number], Gestational diabetes, 160, cm, 11/21/23 9:40:00 EDT, Height, 125, kg, 02/21/23 10:34:00 EST, Dosing Weight Start: 11-21-2023 See Instructions , Check 4x/Day, # 1 EA, 0 Refill(s), Pharmacy: [facility] #[id number], Gestational diabetes, 160, cm, 11/21/23 9:40:00 EDT, Height, 125, kg, 02/21/23 10:34:00 EST, Dosing Weight Start: 11-21-2023 Functional Status Date Assessment Result Facility 12-30-2023 Functional Status Activity [facility] 12-30-2023 Functional Status Current Home T reatments [facility] 12-23-2023 Functional Status Current Home T reatments [facility] 11-09-2023 Functional Status Independent [facility] 11-09-2023 Functional Status ID band on, Call device within reach, Bed in low position, Wheels locked, Upper/Half-Length side-rails up, Safety level maintained [facility] 02-23-2023 Functional Status Rooming in [facility] 02-23-2023 Functional Status Independent [facility] 02-22-2023 Functional Status [facility] 02-22-2023 Functional Status [facility] 02-22-2023 Functional Status [facility] 02-22-2023 Functional Status [facility] 02-22-2023 Functional Status [facility] 02-21-2023 Functional Status Sequential Com pression Device bilateral knee high applied/on [facility] 02-21-2023 Functional Status Home independently [facility] 02-10-2023 Functional Status Awake [facility] 02-10-2023 Functional Status [facility] 02-09-2023 Functional Status Maternal Activ ity Sitting in bed [facility] 02-09-2023 Functional Status [facility] 02-09-2023 Functional Status Lives with spouse [facility] 02-09-2023 Functional Status [facility] 01-13-2023 Functional Status Repositions self [facility] 01-12-2023 Functional Status Home independently [facility] 11-24-2022 Functional Status Current Home T reatments None [facility] 11-12-2022 [facility] Functional Status Standard Safet y ID band on, Call device within reach, Bed in low position, Wheels locked, Upper/Half-Length side-rails up, Phone within reach, personal items within reach, Non-Slip footwear [facility] 11-11-2022 Functional Status Repositions self [facility] 11-11-2022 Functional Status [facility]ia [facility] 11-11-2022 Functional Status Independent Soph[facility] 11-12-2021 [facility] Status Sophia [facility] 11-11-2021 Functional Status bilateral knee high [facility] 11-11-2021 Functional Status Sophia [facility]cc[facility] 11-11-2021 Functional Status Sophia Mcc[facility] 11-11-2021 Functional Status Sophia Mccann [facility] 11-11-2021 Functional Status Sophia Mcc[facility] 11-10-2021 Functional Status Sophia Mccann [facility] 11-10-2021 Functional Status Sophia Mccann [facility] 11-10-2021 Functional Status Maintained, More than 8 hours [facility] 11-10-2021 Functional Status Sophia Mccann [facility] 10-19-2021 Functional Status Awake Soph[facility] 06-14-2021 Functional Status Sophia [facility] 06-14-2021 Functional Status [facility] 07-04-2014 Are you deaf, or do you have serious difficulty hearing No 07/04/2014 5:49 PM Danyelle Trevizo RN No [facility] 07-04-2014 Are you blind, or do you have serious difficulty seeing, even when wearing glasses No 07/04/2014 5:49 PM Danyelle Trevizo RN No [facility] 07-04-2014 Do you have serious difficulty walking or climbing stairs No 07/04/2014 5:49 PM Danyelle Trevizo RN No [facility] 07-04-2014 Do you have difficul ty dressing or bathing No 07/04/2014 5:49 PM Danyelle Trevizo RN No [facility] Mental Status Date Assessment Result Facility 12-30-2023 Mental Status Orientation Oriented x 4 [facility] 11-09-2023 Mental Status Orientation Oriented x 4 [facility] 11-09-2023 Mental Status [facility] 02-12-2023 Mental Status Orientation Oriented x 4 [facility] 01-13-2023 Mental Status Orientation Oriented x 4 [facility] 11-12-2022 Mental Status Orientation Oriented x 4 [facility] 11-12-2021 Mental Status Oriented x 4 [facility] 11-11-2021 Mental Status [facility] 11-11-2021 Mental Status [facility] 06-14-2021 Mental Status [facility] 06-14-2021 Mental Status [facility] 06-03-2021 Cognitive function Level Of Cons ciousness Awake;Alert;Appropriate [facility] Work Phone: 07-04-2014 Because of a physica l, mental, or emotional condition, do you have serious difficulty concentrating, remembering, or making decisions No 07/04/2014 5:49 PM Danyelle Trevizo RN No [facility] Clinical Notes 09-01-2005 to 06-05-2024 Quirino Cruz APRN.[employer] - 06/05/2024 10:41 AM EDTPatient BrittneyAshley WhittakerManan - 05/14/2024 9:00 AM Yasmin Pereira PA - 05/14/2024 8:52 AM EDTLaboratoryLaboratoryLaboratory Note Date & Type Note Facility 06-05-2024 Note HNO ID: [id number] Author: QUIRINO CRUZ APRN.[employer] Service: ? Author Type: Nurse Practitioner Type: Progress Notes Filed: 06/05/2024 10:58 Note Text: Subjective HPI Nontoxic-appearing 23-year-old female presents urgent care chief complaint left foot pain. Duration of symptoms a month and a half associated symptoms left foot pain. Was seen here twice for this injury. Injury occurred April 18, 2024. States rolled her ankle when she was wearing platform shoes. X-ray of foot and ankle was negative. Was seen again at the end of April. X-ray foot ankle negative. Presents today with persistent discomfort. States that the end of the day her foot is swollen. Is a [id number]-ib-rodm mom has 6 children under the age of 6. Did fracture her foot when she was younger. No surgeries. States foot has never been the same. No numbness or tingling. No decrease sensation. Overall feels well. Past medical history prescription medications allergies reviewed. BP 118/66 Pulse 72 Temp 36.3 ?C (97.4 ?F) Resp 18 Wt 131.6 kg (290 lb 2 oz) LMP 04/05/2024 SpO2 98% .Patient presents with: Ankle Injury: left ankle and foot pain x 1 month, seen here 2 previous times PAST MEDICAL HISTORY Diagnosis Date History of insulin controlled gestational diabetes mellitus NEGATIVE MEDICAL HISTORY PAST SURGICAL HISTORY Procedure Laterality Date INCISION AND DRAINAGE ABSCESS SIMPLE/SINGLE 09/01/05 Right plantar foot ALLERGIES Patient has no known allergies. MEDICATIONS No prescriptions on file. No family history on file. Social History Tobacco Use Smoking status: Never Smokeless tobacco: Never Substance Use Topics Alcohol use: Never Review of Systems Constitutional: Negative for chills, fever and malaise/fatigue. Musculoskeletal: Positive for joint pain. Negative for back pain, falls, myalgias and neck pain. Mid foot/forefoot discomfort Neurological: Negative for dizziness, loss of consciousness, weakness and headaches. Objective Physical Exam Constitutional: General: She is not in acute distress. Appearance: She is not toxic-appearing. HENT: Head: Normocephalic. Nose: Nose normal. Eyes: Pupils: Pupils are equal, round, and reactive to light. Cardiovascular: Rate and Rhythm: Normal rate. Pulmonary: Effort: Pulmonary effort is normal. No respiratory distress. Musculoskeletal: Cervical back: Normal range of motion. Feet: Feet: Comments: Pain with palpation to highlighted area. Mild edema. No erythema. Neurovascular intact Skin: General: Skin is warm and dry. Neurological: General: No focal deficit present. Mental Status: She is alert. ASSESSMENT/PLAN: 1. Foot pain, left - ICD9: 729.5, ICD10: M79.672 With persistent pain referred to podiatry. Will be seen tomorrow. Concerned about ligament tendon injury. Patient was educated on supportive therapies. Patient will follow up with primary care provider as needed. Patient was instructed to immediately proceed to emergency room for any new, worsening, or symptoms lasting longer than anticipated. The patient's clinical presentation is otherwise unremarkable at this time. Based on exam and clinical finding, the patient is stable for discharge. Plan of care was discussed with patient. Patient verbalizes understanding and agrees to plan of care. This note was generated using [employer] software. It may contain errors in wording, punctuation, or spelling. Quirino Cruz APRN.[facility] 06-05-2024 History of Presen t illness Narrative Images from the original note were not included. Subjective HPI Nontoxic-appearing 23-year-old female presents urgent care chief complaint left foot pain. Duration of symptoms a month and a half associated symptoms left foot pain. Was seen here twice for this injury. Injury occurred April 18, 2024. States rolled her ankle when she was wearing platform shoes. X-ray of foot and ankle was negative. Was seen again at the end of April. X-ray foot ankle negative. Presents today with persistent discomfort. States that the end of the day her foot is swollen. Is a wsve-kf-lhfx mom has 6 children under the age of 6. Did fracture her foot when she was younger. No surgeries. States foot has never been the same. No numbness or tingling. No decrease sensation. Overall feels well. Past medical history prescription medications allergies reviewed. BP 118/66 Pulse 72 Temp 36.3 C (97.4 F) Resp 18 Wt 131.6 kg (290 lb 2 oz) LMP 04/05/2024 SpO2 98% .Patient presents with: Ankle Injury: left ankle and foot pain x 1 month, seen here 2 previous times PAST MEDICAL HISTORY Diagnosis Date History of insulin controlled gestational diabetes mellitus NEGATIVE MEDICAL HISTORY PAST SURGICAL HISTORY Procedure Laterality Date INCISION & DRAINAGE ABSCESS SIMPLE/SINGLE 09/01/05 Right plantar foot ALLERGIES Patient has no known allergies. MEDICATIONS No prescriptions on file. No family history on file. Social History Tobacco Use Smoking status: Never Smokeless tobacco: Never Substance Use Topics Alcohol use: Never Review of Systems Constitutional: Negative for chills, fever and malaise/fatigue. Musculoskeletal: Positive for joint pain. Negative for back pain, falls, myalgias and neck pain. Mid foot/forefoot discomfort Neurological: Negative for dizziness, loss of consciousness, weakness and headaches. Objective Physical Exam Constitutional: General: She is not in acute distress. Appearance: She is not toxic-appearing. HENT: Head: Normocephalic. Nose: Nose normal. Eyes: Pupils: Pupils are equal, round, and reactive to light. Cardiovascular: Rate and Rhythm: Normal rate. Pulmonary: Effort: Pulmonary effort is normal. No respiratory distress. Musculoskeletal: Cervical back: Normal range of motion. Feet: Feet: Comments: Pain with palpation to highlighted area. Mild edema. No erythema. Neurovascular intact Skin: General: Skin is warm and dry. Neurological: General: No focal deficit present. Mental Status: She is alert. ASSESSMENT/PLAN: 1. Foot pain, left - ICD9: 729.5, ICD10: M79.672 With persistent pain referred to podiatry. Will be seen tomorrow. Concerned about ligament tendon injury. Patient was educated on supportive therapies. Patient will follow up with primary care provider as needed. Patient was instructed to immediately proceed to emergency room for any new, worsening, or symptoms lasting longer than anticipated. The patient's clinical presentation is otherwise unremarkable at this time. Based on exam and clinical finding, the patient is stable for discharge. Plan of care was discussed with patient. Patient verbalizes understanding and agrees to plan of care. This note was generated using [employer] software. It may contain errors in wording, punctuation, or spelling. Quirino Cruz APRN.[employer] documented in this encounter [facility] 05-14-2024 Instructions Yasmin Sue PA - 05/14/2024 9:41 AM EDT R.I.C.E. The general care of your injury includes the following: Resting, Icing, Compressing and Elevating the injured area. Remember this as RICE. REST: Limit the use of the injured body part. ICE: By applying ice to the affected area, swelling and pain can be reduced. Place some ice cubes in a re-sealable (Ziploc) bag and add some water. Put a thin washcloth between the bag and your skin. Apply the ice bag to the area for at least 20 minutes. Do this at least 4 times per day. Using the ice for longer times and more frequently is OK. NEVER APPLY ICE DIRECTLY TO THE SKIN. COMPRESS: Compression means to apply pressure around the injured area such as with a splint, cast or an marika bandage. Compression decreases swelling and improves comfort. Compression should be tight enough to relieve swelling but not so tight as to decrease circulation. Increasing pain, numbness, tingling, or change in skin color, are all signs of decreased circulation. ELEVATE: Elevate the injured part. For example, elevate your foot by placing it on a chair while sitting, or propping it up on pillows when lying down. documented in this encounter [facility] 05-14-2024 History of Presen t illness Narrative Radiology Service Progress Note PATIENT NAME: Lester Infante DATE OF SERVICE: May 14, 2024 TIME: 8:56 AM PATIENT IDENTITY VERIFICATION COMPLETED USING TWO (2) IDENTIFIERS: Name and Date of confirmed by patient verbally. FALL SCREENING: Has the patient had 2 falls in the last year or 1 fall with injury or currently using an Ambulatory Assistive Device (Walker, Cane, Wheelchair, Crutches, etc.)? No PATIENT GENDER DATA: Assigned female at . status: : No status: NO. PATIENT RELEVANT IMPLANT DATA REVIEWED: Not Applicable PATIENT PRESENTS WITH AN IMPLANTABLE OR ATTACHED RAG BALER: No RADIOLOGY DEPARTMENT: General X-ray: Exam(s) Completed: Lower Extremity X-Ray(s): Ankle, Left and Foot, Left PERIPHERAL IV DATA: Not applicable SIGNED BY: Manan Haile May 14, 2024 8:56 AM documented in this encounter [facility] 05-14-2024 Note HNO ID: [id number] Author: ASHLEY WHITTAKER Tech Service: ? Author Type: Technologist Type: Progress Notes Filed: 05/14/2024 09:22 Note Text: Radiology Service Progress Note PATIENT NAME: Lester Infante DATE OF SERVICE: May 14, 2024 TIME: 8:56 AM PATIENT IDENTITY VERIFICATION COMPLETED USING TWO (2) IDENTIFIERS: Name and Date of confirmed by patient verbally. FALL SCREENING: Has the patient had 2 falls in the last year or 1 fall with injury or currently using an Ambulatory Assistive Device (Walker, Cane, Wheelchair, Crutches, etc.)? No PATIENT GENDER DATA: Assigned female at . status: : No status: NO. PATIENT RELEVANT IMPLANT DATA REVIEWED: Not Applicable PATIENT PRESENTS WITH AN IMPLANTABLE OR ATTACHED RAG BALER: No RADIOLOGY DEPARTMENT: General X-ray: Exam(s) Completed: Lower Extremity X-Ray(s): Ankle, Left and Foot, Left PERIPHERAL IV DATA: Not applicable SIGNED BY: Manan Haile May 14, 2024 8:56 AM [facility] 05-14-2024 Note HNO ID: [id number] Author: YASMIN SUE PA Service: ? Author Type: Physician Blender Conveyor Operator Type: Progress Notes Filed: 05/14/2024 09:44 Note Text: [facility] Subjective Lester Infante is a 23 year old female. Patient presents with: left foot and ankle pain: X 1 month-rolled it again last night HPI 23-year-old female presents for left ankle and left foot pain. Patient states she injured her foot and ankle about a month ago. She states she had an x-ray completed that was normal. She states pain in the ankle is never fully gone away. She states that last night she was walking and rolled the ankle again. She is having pain over the medial side of the ankle. Ankle is swollen. She states she is unable to bear full weight due to pain. She has taken Tylenol with minimal improvement. No other complaint. PAST MEDICAL HISTORY Diagnosis Date History of insulin controlled gestational diabetes mellitus NEGATIVE MEDICAL HISTORY PAST SURGICAL HISTORY Procedure Laterality Date INCISION AND DRAINAGE ABSCESS SIMPLE/SINGLE 09/01/05 Right plantar foot ALLERGIES Patient has no known allergies. MEDICATIONS No prescriptions on file. No family history on file. Social History Tobacco Use Smoking status: Never Smokeless tobacco: Never Substance Use Topics Alcohol use: Never Review of Systems Constitutional: Negative for fever. Musculoskeletal: Positive for arthralgias. Neurological: Negative for numbness. Objective BP 102/64 Pulse 77 Temp 36.3 ?C (97.3 ?F) (Tympanic) Resp 18 Wt 130.6 kg (287 lb 14.7 oz) LMP 04/05/2024 SpO2 98% Physical Exam Vitals and nursing note reviewed. Constitutional: General: She is not in acute distress. Appearance: Normal appearance. She is not toxic-appearing. Musculoskeletal: Left ankle: Swelling present. Tenderness present over the medial malleolus. Decreased range of motion. Normal pulse. Left Achilles Tendon: Normal. Comments: Tenderness over left medial malleolus with swelling present. Able to plantar and dorsiflex, but pain with range of motion. Achilles intact. Nontender Achilles. Tenderness over dorsum of left foot with some swelling present. Normal ROM of the toes. Cap refill less than 2 seconds. DP and PT pulses 2+ Skin: General: Skin is warm and dry. Neurological: Mental Status: She is alert. {ASSESSMENT/PLAN: 1. Foot pain, left - ICD9: 729.5, ICD10: M79.672 (primary diagnosis) - XR ANKLE GENERAL 3V AP/LAT/OBL LEFT - XR FOOT GENERAL 3V AP/LAT/OBL LEFT -XR reveals soft tissue prominence along medial malleolus. No acute fractures demonstrated ankle or foot -Patient has an Marika wrap, continue wearing this, ice, elevation, Tylenol/Motrin. Consult orthopedics placed. - CONSULT PANEL TO ORTHOPAEDICS 2. Acute left ankle pain - ICD9: 719.47, ICD10: M25.572 - XR ANKLE GENERAL 3V AP/LAT/OBL LEFT - XR FOOT GENERAL 3V AP/LAT/OBL LEFT - CONSULT PANEL TO ORTHOPAEDICS Diagnosis and treatment plan were discussed and questions were answered to the patient's satisfaction. Pt acknowledged understanding of concepts and follow up plan. Specific signs and symptoms that would indicate the need for higher level of care were discussed in detail warranting prompt ER evaluation. TEAGAN Millan History and Record Review External record(s) reviewed: prior outpatient record. Findings from review of outpatient records: Seen 3/ for similar symptoms/injury Differential Diagnoses - Ankle sprain is more likely for the following reason(s): suggested by HANDP - Ankle fracture is less likely for the following reason(s): no evidence on imaging - Foot fracture is less likely for the following reason(s): no evidence on imaging - Achilles injury is less likely for the following reason(s): HANDP not suggestive Disposition The patient was discharged. OTC Medications were advised: Tylenol/Motrin Procedures [facility] 05-14-2024 History of Presen t illness Narrative [facility] Subjective Lester Infante is a 23 year old female. Patient presents with: left foot and ankle pain: X 1 month-rolled it again last night HPI 23-year-old female presents for left ankle and left foot pain. Patient states she injured her foot and ankle about a month ago. She states she had an x-ray completed that was normal. She states pain in the ankle is never fully gone away. She states that last night she was walking and rolled the ankle again. She is having pain over the medial side of the ankle. Ankle is swollen. She states she is unable to bear full weight due to pain. She has taken Tylenol with minimal improvement. No other complaint. PAST MEDICAL HISTORY Diagnosis Date History of insulin controlled gestational diabetes mellitus NEGATIVE MEDICAL HISTORY PAST SURGICAL HISTORY Procedure Laterality Date INCISION & DRAINAGE ABSCESS SIMPLE/SINGLE 09/01/05 Right plantar foot ALLERGIES Patient has no known allergies. MEDICATIONS No prescriptions on file. No family history on file. Social History Tobacco Use Smoking status: Never Smokeless tobacco: Never Substance Use Topics Alcohol use: Never Review of Systems Constitutional: Negative for fever. Musculoskeletal: Positive for arthralgias. Neurological: Negative for numbness. Objective BP 102/64 Pulse 77 Temp 36.3 C (97.3 F) (Tympanic) Resp 18 Wt 130.6 kg (287 lb 14.7 oz) LMP 04/05/2024 SpO2 98% Physical Exam Vitals and nursing note reviewed. Constitutional: General: She is not in acute distress. Appearance: Normal appearance. She is not toxic-appearing. Musculoskeletal: Left ankle: Swelling present. Tenderness present over the medial malleolus. Decreased range of motion. Normal pulse. Left Achilles Tendon: Normal. Comments: Tenderness over left medial malleolus with swelling present. Able to plantar and dorsiflex, but pain with range of motion. Achilles intact. Nontender Achilles. Tenderness over dorsum of left foot with some swelling present. Normal ROM of the toes. Cap refill less than 2 seconds. DP and PT pulses 2+ Skin: General: Skin is warm and dry. Neurological: Mental Status: She is alert. {ASSESSMENT/PLAN: 1. Foot pain, left - ICD9: 729.5, ICD10: M79.672 (primary diagnosis) - XR ANKLE GENERAL 3V AP/LAT/OBL LEFT - XR FOOT GENERAL 3V AP/LAT/OBL LEFT -XR reveals soft tissue prominence along medial malleolus. No acute fractures demonstrated ankle or foot -Patient has an Marika wrap, continue wearing this, ice, elevation, Tylenol/Motrin. Consult orthopedics placed. - CONSULT PANEL TO ORTHOPAEDICS 2. Acute left ankle pain - ICD9: 719.47, ICD10: M25.572 - XR ANKLE GENERAL 3V AP/LAT/OBL LEFT - XR FOOT GENERAL 3V AP/LAT/OBL LEFT - CONSULT PANEL TO ORTHOPAEDICS Diagnosis and treatment plan were discussed and questions were answered to the patient's satisfaction. Pt acknowledged understanding of concepts and follow up plan. Specific signs and symptoms that would indicate the need for higher level of care were discussed in detail warranting prompt ER evaluation. TEAGAN Millan History and Record Review External record(s) reviewed: prior outpatient record. Findings from review of outpatient records: Seen 3/ for similar symptoms/injury Differential Diagnoses - Ankle sprain is more likely for the following reason(s): suggested by H&P - Ankle fracture is less likely for the following reason(s): no evidence on imaging - Foot fracture is less likely for the following reason(s): no evidence on imaging - Achilles injury is less likely for the following reason(s): H&P not suggestive Disposition The patient was discharged. OTC Medications were advised: Tylenol/Motrin Procedures documented in this encounter [facility] 04-19-2024 History of Presen t illness Narrative Radiology Service Progress Note PATIENT NAME: Lester Infante DATE OF SERVICE: April 19, 2024 TIME: 10:00 AM PATIENT IDENTITY VERIFICATION COMPLETED USING TWO (2) IDENTIFIERS: Name and Date of confirmed by patient verbally. FALL SCREENING: Has the patient had 2 falls in the last year or 1 fall with injury or currently using an Ambulatory Assistive Device (Walker, Cane, Wheelchair, Crutches, etc.)? No PATIENT GENDER DATA: Assigned female at . status: : No status: NO. PATIENT RELEVANT IMPLANT DATA REVIEWED: Not Applicable PATIENT PRESENTS WITH AN IMPLANTABLE OR ATTACHED RAG BALER: No RADIOLOGY DEPARTMENT: General X-ray: Exam(s) Completed: Lower Extremity X-Ray(s): Ankle, Left and Foot, Left PERIPHERAL IV DATA: Not applicable SIGNED BY: Manan Haile April 19, 2024 10:00 AM documented in this encounter [facility] 04-19-2024 Note HNO ID: [id number] Author: ASHLEY WHITTAKER Tech Service: ? Author Type: Technologist Type: Progress Notes Filed: 04/19/2024 10:11 Note Text: Radiology Service Progress Note PATIENT NAME: Lester Infante DATE OF SERVICE: April 19, 2024 TIME: 10:00 AM PATIENT IDENTITY VERIFICATION COMPLETED USING TWO (2) IDENTIFIERS: Name and Date of confirmed by patient verbally. FALL SCREENING: Has the patient had 2 falls in the last year or 1 fall with injury or currently using an Ambulatory Assistive Device (Walker, Cane, Wheelchair, Crutches, etc.)? No PATIENT GENDER DATA: Assigned female at . status: : No status: NO. PATIENT RELEVANT IMPLANT DATA REVIEWED: Not Applicable PATIENT PRESENTS WITH AN IMPLANTABLE OR ATTACHED RAG BALER: No RADIOLOGY DEPARTMENT: General X-ray: Exam(s) Completed: Lower Extremity X-Ray(s): Ankle, Left and Foot, Left PERIPHERAL IV DATA: Not applicable SIGNED BY: Manan Haile April 19, 2024 10:00 AM [facility] 04-19-2024 Note HNO ID: [id number] Author: NAYE HANCOCK APRN.[employer] Service: ? Author Type: Nurse Practitioner Type: Progress Notes Filed: 04/19/2024 10:40 Note Text: Subjective Patient came in with complaints of left ankle and foot pain. Patient says she rolled her ankle yesterday wearing platform shoes. Patient says that her pinky toe and toe next to it are tingly little bit. Patient denies any other symptoms at this time. The history is provided by the patient. No immunopathologist was used. Review of Systems Constitutional: Negative. Skin: Negative. Objective Physical Exam Constitutional: Appearance: Normal appearance. Pulmonary: Effort: Pulmonary effort is normal. Musculoskeletal: Feet: Feet: Comments: Patient is tender in the area marked above. No signs of discoloration or deformity. Mild swelling is noted. Circulation and sensation are intact. Patient does have difficulty moving her ankle laterally from [id number]. Neurological: Mental Status: She is alert. PAST MEDICAL HISTORY Diagnosis Date History of insulin controlled gestational diabetes mellitus NEGATIVE MEDICAL HISTORY PAST SURGICAL HISTORY Procedure Laterality Date INCISION AND DRAINAGE ABSCESS SIMPLE/SINGLE 09/01/05 Right plantar foot ALLERGIES Patient has no known allergies. MEDICATIONS No prescriptions on file. No family history on file. Social History Tobacco Use Smoking status: Never Smokeless tobacco: Never Substance Use Topics Alcohol use: Never ASSESSMENT/PLAN: 1. Pain - ICD9: 780.96, ICD10: R52 - XR ANKLE GENERAL 3V AP/LAT/OBL LEFT - XR FOOT GENERAL 3V AP/LAT/OBL LEFT * * * * Physician Interpretation * * * * EXAM: XR FOOT 3V AP/LAT/OBL LT, XR ANKLE 3V AP/LAT/OBL LT PATIENT HISTORY: Lateral foot/ankle pain after rolling ankle yesterday TECHNIQUE: AP, lateral, and oblique radiograph of the left ankle. AP, lateral, and oblique radiograph of the left foot. COMPARISON: Radiographs 12/17/2018 and 12/14/2018 FINDINGS: No acute fracture or dislocation. Os trigonum. Soft tissues tissue swelling centered about the ankle. The ankle Matisse and Lisfranc reticulation appear maintained. No soft tissue defect or radiopaque foreign body. IMPRESSION IMPRESSION: Negative for acute fracture or malalignment of the left ankle or foot. Soft tissue edema about the ankle. Varnish Thinner: STAN Transcribe Date/Time: Apr 19 2024 10:21A Dictated by : MARKUS SUAREZ MD Patient was educated to alternate Tylenol Motrin rested for a week or 2. Patient was given an Marika wrap for comfort. Patient was agreeable to this care plan and will follow-up with primary care if signs and symptoms seem to be getting worse not better. Naye Hancock APRN.[facility] 04-19-2024 History of Presen t illness Narrative Images from the original note were not included. Subjective Patient came in with complaints of left ankle and foot pain. Patient says she rolled her ankle yesterday wearing platform shoes. Patient says that her pinky toe and toe next to it are tingly little bit. Patient denies any other symptoms at this time. The history is provided by the patient. No immunopathologist was used. Review of Systems Constitutional: Negative. Skin: Negative. Objective Physical Exam Constitutional: Appearance: Normal appearance. Pulmonary: Effort: Pulmonary effort is normal. Musculoskeletal: Feet: Feet: Comments: Patient is tender in the area marked above. No signs of discoloration or deformity. Mild swelling is noted. Circulation and sensation are intact. Patient does have difficulty moving her ankle laterally from [id number]. Neurological: Mental Status: She is alert. PAST MEDICAL HISTORY Diagnosis Date History of insulin controlled gestational diabetes mellitus NEGATIVE MEDICAL HISTORY PAST SURGICAL HISTORY Procedure Laterality Date INCISION & DRAINAGE ABSCESS SIMPLE/SINGLE 09/01/05 Right plantar foot ALLERGIES Patient has no known allergies. MEDICATIONS No prescriptions on file. No family history on file. Social History Tobacco Use Smoking status: Never Smokeless tobacco: Never Substance Use Topics Alcohol use: Never ASSESSMENT/PLAN: 1. Pain - ICD9: 780.96, ICD10: R52 - XR ANKLE GENERAL 3V AP/LAT/OBL LEFT - XR FOOT GENERAL 3V AP/LAT/OBL LEFT * * * * Physician Interpretation * * * * EXAM: XR FOOT 3V AP/LAT/OBL LT, XR ANKLE 3V AP/LAT/OBL LT PATIENT HISTORY: Lateral foot/ankle pain after rolling ankle yesterday TECHNIQUE: AP, lateral, and oblique radiograph of the left ankle. AP, lateral, and oblique radiograph of the left foot. COMPARISON: Radiographs 12/17/2018 and 12/14/2018 FINDINGS: No acute fracture or dislocation. Os trigonum. Soft tissues tissue swelling centered about the ankle. The ankle Matisse and Lisfranc reticulation appear maintained. No soft tissue defect or radiopaque foreign body. IMPRESSION IMPRESSION: Negative for acute fracture or malalignment of the left ankle or foot. Soft tissue edema about the ankle. Varnish Thinner: STAN Transcribe Date/Time: Apr 19 2024 10:21A Dictated by : MARKUS SUAREZ MD Patient was educated to alternate Tylenol Motrin rested for a week or 2. Patient was given an Marika wrap for comfort. Patient was agreeable to this care plan and will follow-up with primary care if signs and symptoms seem to be getting worse not better. Naye Hancock APRN.[employer] documented in this encounter [facility] 03-13-2024 Telephone encounter Note Patient given results and verbalized understanding of instructions given. Linda Colvin MA [facility] 03-13-2024 Miscellaneous Notes Patient given results and verbalized understanding of instructions given. Linda Colvin MA Please advise patient: You have tested positive for influenza A. Tamiflu is not likely to be helpful at this stage of the illness. Recommend supportive therapy at home. - Drink PLENTY of fluids (Gatorade/Pedialyte, tea) and get PLENTY of rest - Vaporizers, humidifiers, hot showers, and warm fluids help open respiratory and sinus passages (helps with cough and congestion) - Saline nose spray - Tylenol or ibuprofen as needed for fever and/or discomfort - Cover cough and wash hands frequently to prevent the spread of germs. Influenza can be spread through contact with respiratory secretions (through sneezing, coughing, talking, touching) or contaminated objects. You can be contagious from before your symptoms began and for several days after. - stay home until fever free for 24 hours. Dianelys Marroquin APRN.[employer] documented in this encounter [facility] 03-13-2024 Telephone encounter Note Please advise patient: You have tested positive for influenza A. Tamiflu is not likely to be helpful at this stage of the illness. Recommend supportive therapy at home. - Drink PLENTY of fluids (Gatorade/Pedialyte, tea) and get PLENTY of rest - Vaporizers, humidifiers, hot showers, and warm fluids help open respiratory and sinus passages (helps with cough and congestion) - Saline nose spray - Tylenol or ibuprofen as needed for fever and/or discomfort - Cover cough and wash hands frequently to prevent the spread of germs. Influenza can be spread through contact with respiratory secretions (through sneezing, coughing, talking, touching) or contaminated objects. You can be contagious from before your symptoms began and for several days after. - stay home until fever free for 24 hours. Dianelys Marroquin APRN.BALDEV [facility] Work Phone: 03-12-2024 History of Presen t illness Narrative Radiology Service Progress Note PATIENT NAME: Lester Infante DATE OF SERVICE: March 12, 2024 TIME: 2:14 PM PATIENT IDENTITY VERIFICATION COMPLETED USING TWO (2) IDENTIFIERS: Name and Date of confirmed by patient verbally. FALL SCREENING: Has the patient had 2 falls in the last year or 1 fall with injury or currently using an Ambulatory Assistive Device (Walker, Cane, Wheelchair, Crutches, etc.)? No PATIENT GENDER DATA: Assigned female at . status: : No status: NO. PATIENT RELEVANT IMPLANT DATA REVIEWED: Yes PATIENT PRESENTS WITH AN IMPLANTABLE OR ATTACHED RAG BALER: No RADIOLOGY DEPARTMENT: General X-ray: Exam(s) Completed: Chest X-Ray PERIPHERAL IV DATA: Not applicable SIGNED BY: RT Santino(R) March 12, 2024 2:14 PM documented in this encounter [facility] 03-12-2024 Note HNO ID: [id number] Author: IGGY BARGER RT(R) Service: ? Author Type: Gathering Machine Setter Type: Progress Notes Filed: 03/12/2024 14:30 Note Text: Radiology Service Progress Note PATIENT NAME: Lester Infante DATE OF SERVICE: March 12, 2024 TIME: 2:14 PM PATIENT IDENTITY VERIFICATION COMPLETED USING TWO (2) IDENTIFIERS: Name and Date of confirmed by patient verbally. FALL SCREENING: Has the patient had 2 falls in the last year or 1 fall with injury or currently using an Ambulatory Assistive Device (Walker, Cane, Wheelchair, Crutches, etc.)? No PATIENT GENDER DATA: Assigned female at . status: : No status: NO. PATIENT RELEVANT IMPLANT DATA REVIEWED: Yes PATIENT PRESENTS WITH AN IMPLANTABLE OR ATTACHED RAG BALER: No RADIOLOGY DEPARTMENT: General X-ray: Exam(s) Completed: Chest X-Ray PERIPHERAL IV DATA: Not applicable SIGNED BY: RT Santino(R) March 12, 2024 2:14 PM [facility] 03-12-2024 Note HNO ID: [id number] Author: GEORGE MONTES MD Service: ? Author Type: Physician Type: Progress Notes Filed: 03/12/2024 14:55 Note Text: Patient presents with: Nasal Congestion: drainage, cough, sob x 3 days HPI: Feeling sick starting 3 days ago. Positive symptoms: Cough, Shortness of breath, Nasal Congestion, Sore throat, Rhinorrhea, Malaise, Fatigue, Headache, Negative symptoms: Chest pain, Nausea, Vomiting, Diarrhea, OTC: Cold Medicine PHx of pneumonia. No Hx of asthma. PAST MEDICAL HISTORY Diagnosis Date History of insulin controlled gestational diabetes mellitus NEGATIVE MEDICAL HISTORY MEDICATIONS: No current outpatient medications on file. No current facility-administered medications for this visit. ALLERGIES: ALLERGIES No Known Allergies VITALS: BP 110/80 Pulse 106 Temp (!) 38.3 ?C (100.9 ?F) Resp 16 Wt 127.9 kg (281 lb 15.5 oz) LMP (LMP Unknown) SpO2 99% PHYSICAL EXAM: GEN: ill appearing HEENT: PERRL, EOMI, conjunctiva watery with trace injection Ears: canals clear. TMs without erythema, bulge, or effusion Sinuses: non-tender frontal sinus, non-tender maxillary sinuses Throat: moist mucous membranes, mild erythema, no exudate Neck: supple, no thyromegaly, no lymphadenopathy HEART: fast rate, regular rhythm, no murmurs LUNGS: intermittent faint right upper lung wheeze, no crackles, no increased WOB ASSESSMENT/PLAN: 1. Acute cough - ICD9: 786.2, ICD10: R05.1 (primary diagnosis) 2. Influenza-like illness - ICD9: 487.1, ICD10: J11.1 - XR CHEST 2V FRONTAL/LAT - negative - suspect influenza, differential includes COVID-19. - Discussed supportive care treatment with home isolation (fever free for 24 hours and improving symptoms), rest, cold medicine, and analgesia. - Red flags to seek further treatment include chest pain, shortness of breath, and lethargy; in the ER if severe. - COVID AND INFLUENZA A/B AND RSV PCR, ROUTINE George Montes MD [facility] 03-12-2024 History of Presen t illness Narrative Patient presents with: Nasal Congestion: drainage, cough, sob x 3 days HPI: Feeling sick starting 3 days ago. Positive symptoms: Cough, Shortness of breath, Nasal Congestion, Sore throat, Rhinorrhea, Malaise, Fatigue, Headache, Negative symptoms: Chest pain, Nausea, Vomiting, Diarrhea, OTC: Cold Medicine PHx of pneumonia. No Hx of asthma. PAST MEDICAL HISTORY Diagnosis Date History of insulin controlled gestational diabetes mellitus NEGATIVE MEDICAL HISTORY MEDICATIONS: No current outpatient medications on file. No current facility-administered medications for this visit. ALLERGIES: ALLERGIES No Known Allergies VITALS: BP 110/80 Pulse 106 Temp (!) 38.3 C (100.9 F) Resp 16 Wt 127.9 kg (281 lb 15.5 oz) LMP (LMP Unknown) SpO2 99% PHYSICAL EXAM: GEN: ill appearing HEENT: PERRL, EOMI, conjunctiva watery with trace injection Ears: canals clear. TMs without erythema, bulge, or effusion Sinuses: non-tender frontal sinus, non-tender maxillary sinuses Throat: moist mucous membranes, mild erythema, no exudate Neck: supple, no thyromegaly, no lymphadenopathy HEART: fast rate, regular rhythm, no murmurs LUNGS: intermittent faint right upper lung wheeze, no crackles, no increased WOB ASSESSMENT/PLAN: 1. Acute cough - ICD9: 786.2, ICD10: R05.1 (primary diagnosis) 2. Influenza-like illness - ICD9: 487.1, ICD10: J11.1 - XR CHEST 2V FRONTAL/LAT - negative - suspect influenza, differential includes COVID-19. - Discussed supportive care treatment with home isolation (fever free for 24 hours and improving symptoms), rest, cold medicine, and analgesia. - Red flags to seek further treatment include chest pain, shortness of breath, and lethargy; in the ER if severe. - COVID & INFLUENZA A/B & RSV PCR, ROUTINE George Montes MD documented in this encounter [facility] 12-30-2023 Hospital Discharg e instructions Patient Education 12/30/2023 10:40:47 7 - Labor and Delivery Outpatient Instructions(CUSTOM) [facility] HOME-GOING INSTRUCTIONS _X_Keep scheduled appointment ACTIVITY ___ Bedrest _X__Activity as tolerated ___ No work/school for ___ days. ___Other PRESCRIPTION GIVEN ___Yes ___none NAUSEA/VOMITING ___ Take small, frequent amounts of clear liquids. Avoid fruit juices and milk. ___ Increase fluid intake to a minimum of 8 ounces of fluid every hour while awake. ___ Soft diet. Rice, crackers, bananas, Jell-O, cooked carrots, applesauce. ___ [place] diet. Avoid caffeine, chocolate, alcohol, spiced/greasy foods. [...] Painful uterine contractions every _5__ minutes for _1__ hours. _X__A gush or continuous trickle of watery discharge. COME TO THE HOSPITAL AND CALL PHYSICIAN IF: _X__ Your abdomen feels continually firm. _X__ *Bleeding is bright red and enough to saturate a pad in one hour or less. *Call 911 or go to the nearest Emergency Room for assistance. Form [id number] D: 01/22 Document Released: 01/31/2006 Document Revised: 01/20/2012 Document Reviewed: 01/31/2006 [facility] Patient Information 2012 [employer]. Follow Up Care 12/30/2023 08:43:01 With:RENÉE DALAL MD Address: [address] [place] [address] [place] [address] [phone] When: Unknown [facility] 12-30-2023 Note Discharge Instructions Thank you for allowing [facility] to assist you with your healthcare needs. The following is important discharge information regarding your hospital visit. Your Care Team PHYSICIAN, NONE What to do next Follow Up Appointments Follow Up with RENÉE DALAL MD Where:[address] [place] [address] [place] [address]- [phone] Someone Will Contact You Regarding These Home [...] Much When Why Instructions Last Dose Unchanged cephalexin (Keflex) 500 Milligram by mouth Daily at bedtime Unchanged DME (Alcohol Swabs) See instructions Gestational diabetes Check 4x/ Day Unchanged DME (Blood Glucose Test Strips) See instructions Gestational diabetes Check 4x/ Day Unchanged DME (Lancets) See instructions Gestational diabetes Check 4x/ Day Unchanged insulin isophane (NPH) 28 unit(s) Subcutaneous Daily at bedtime Unchanged insulin isophane (NPH) 28 unit(s) Subcutaneous Before breakfast Unchanged multivitamin, (PrenaPlus) 1 tab(s) by mouth Once a day Unchanged ursodiol (ursodiol 500 mg oral tablet) 1 tab(s) by mouth Two (2) times a day [...] medication providers or retail pharmacies. Education Materials [facility] OUT[facility] HOME-GOING INSTRUCTIONS _X_Keep scheduled appointment ACTIVITY ___ Bedrest _X__Activity as tolerated ___ No work/school for ___ days. ___Other PRESCRIPTION GIVEN ___Yes ___none NAUSEA/VOMITING ___ Take small, frequent amounts of clear liquids. Avoid fruit juices and milk. ___ Increase fluid intake to a minimum of 8 ounces of fluid every hour while awake. ___ Soft diet. Rice, crackers, bananas, Jell-O, cooked carrots, applesauce. ___ [place] diet. Avoid caffeine, chocolate, alcohol, spiced/greasy foods. [...] Painful uterine contractions every _5__ minutes for _1__ hours. _X__A gush or continuous trickle of watery discharge. COME TO THE HOSPITAL AND CALL PHYSICIAN IF: _X__ Your abdomen feels continually firm. _X__ *Bleeding is bright red and enough to saturate a pad in one hour or less. *Call 911 or go to the nearest Emergency Room for assistance. Form [id number] D: 01/22 Document Released: 01/31/2006 Document Revised: 01/20/2012 Document Reviewed: 01/31/2006 [employer] Patient Information 2012 [employer]. Additional Information VACCINATE! IT SAVES LIVES! Members of the community who have not yet received the COVID-19 vaccine and would like to receive it can visit one of [facility] vaccine clinics. There are many vaccine clinic locations within the [facility]. For locations and available times, please visit [email or web address] It is important to note that some COVID mobile vaccine clinics are held outdoors and may be canceled in rainy or stormy conditions. To learn more about pediatric vaccinations (ages 5-11), we invite you to visit the [facility] webpage. [email or web address] [email or web address]-[email or web address]-[email or web address] To learn more about the COVID-19 vaccine, we invite you to visit the CDC website for a list of frequently asked questions. https://www.cdc.gov/coronavirus/ 2019-ncov/vaccines/faq.html [facility] Patient Portal Access Instructions: Stay connected with your healthcare team and access your personal medical information anytime with the [facility] Patient Portal.If you would like a full copy of your medical records, please contact the [facility] Medical Records Department, Tuesday through Tuesday between 8a.m. and 4:30p.m. Please follow the directions below to access the portal: 1.Access the email account you provided upon registration to the [facility].2.Look for an invitation email from [facility].3.Open the email and access the invitation link: Accept Invitation to [facility]4.Fill in the required masterosn to create your account. Sign into [email or web address] with your username and password that you [...] you will allow to register on the [facility] Patient Portal for access to your information. You can also access the [facility] Patient Portal on the [place]. Simply click on Health Records under Health Data and then click on the [employer] logo. HOW TO SAFELY DISPOSE OF PRESCRIPTION [...] Call your local pharmacy or go to [email or web address] to find one close to you.3.Make use of household items: Use cat litter or old coffee grounds to dispose medications if other options are not available. Mix your drugs with these household products, seal them in an airtight container and throw it into the garbage. Call [facility]: [phone] to be sure your drugs can be [...] aware that I should contact my doctor. Patient/Director Critical Care Signature: Date/Time: Relationship to Patient: Witness Name/Signature: Date/Time: [facility] 12-23-2023 Hospital Discharg e instructions Patient Education 12/23/2023 13:27:04 7 - Labor and Delivery Outpatient Instructions(CUSTOM) [facility] HOME-GOING INSTRUCTIONS _X_ Keep next scheduled appointment ACTIVITY ___ Bedrest _X__Activity as tolerated ___ No work/school for ___ days. ___Other PRESCRIPTION GIVEN __X_Yes Ursodial sent to pharmacy NAUSEA/VOMITING ___ Take small, frequent amounts of clear liquids. Avoid fruit juices and milk. ___ Increase fluid intake to a minimum of 8 ounces of fluid every hour while awake. ___ Soft diet. Rice, crackers, bananas, Jell-O, cooked carrots, applesauce. ___ [place] diet. Avoid caffeine, chocolate, alcohol, spiced/greasy foods. [...] IF: _X__ Your abdomen feels continually firm. _X__ *Bleeding is bright red and enough to saturate a pad in one hour or less. *Call 911 or go to the nearest Emergency Room for assistance. Form [id number] D: 01/22 Document Released: 01/31/2006 Document Revised: 01/20/2012 Document Reviewed: 01/31/2006 ExitCare Patient Information 2012 Consolidated Credit Acquisitions. Follow Up Care 12/23/2023 10:09:33 With:RENÉE DALAL MD Address: [address] [place] [address] [place] [phone] When: Unknown Comments:Follow-up as scheduled [facility] 12-23-2023 Evaluation + Plan note Diagnostic Tests PendingBile Acids, Fractionated LCMS 12/23/23 Future Scheduled TestsBile Acids, Fractionated LCMS 12/23/23.Glucose 1 Hour 01/08/23.Glucose 1 Hour 11/03/23.Glucose 2 Hour 01/08/23.Glucose 2 Hour 11/03/23.Glucose 3 Hour 01/08/23.Glucose 3 Hour 11/03/23Glucose 1 Hour Challenge 11/03/23Rapid Plasma Reagin Test 11/21/23Rapid Plasma Reagin Test 11/03/23Urine Culture 12/30/22Urine Culture 09/08/23Complete Blood Count 11/21/23Complete Blood Count 11/03/23Complete Metabolic Panel 12/23/23 [facility] 12-23-2023 Evaluation + Plan note Future Scheduled TestsBile Acids, Fractionated LCMS 12/23/23.Glucose 1 Hour 01/08/23.Glucose 1 Hour 11/03/23.Glucose 2 Hour 01/08/23.Glucose 2 Hour 11/03/23.Glucose 3 Hour 01/08/23.Glucose 3 Hour 11/03/23Glucose 1 Hour Challenge 11/03/23Rapid Plasma Reagin Test 11/21/23Rapid Plasma Reagin Test 11/03/23Urine Culture 09/08/23Complete Blood Count 11/21/23Complete Blood Count 11/03/23Complete Metabolic Panel 12/23/23 [facility] 12-23-2023 Note Discharge Instructions Thank you for allowing [facility] to assist you with your healthcare needs. The following is important discharge information regarding your hospital visit. Your Care Team PHYSICIAN, NONE What to do next Follow Up Appointments Follow Up with RENÉE DALAL MD Where:[address] [place] [address] [place] [address]- [phone] Additional Information: Follow-up as scheduled Someone Will Contact You Regarding These Home [...] Much When Why Instructions Last Dose New ursodiol (ursodiol 500 mg oral tablet) 1 tab(s) by mouth Two (2) times a day Duration: 30 Days Refills: 3 Pickup at [id number] Unchanged cephalexin (Keflex) 500 Milligram by mouth Daily at bedtime Unchanged DME (Alcohol Swabs) See instructions Gestational diabetes Check 4x/ Day Unchanged DME (Blood Glucose Test Strips) See instructions Gestational diabetes Check 4x/ Day Unchanged DME (Lancets) See instructions Gestational diabetes Check 4x/ Day Unchanged insulin isophane (NPH) 24 unit(s) Subcutaneous Daily at bedtime Unchanged insulin isophane (NPH) 22 unit(s) Subcutaneous Before breakfast Unchanged multivitamin, (PrenaPlus) 1 tab(s) by mouth Once a day Pharmacy Information [facility][id number]: [address] [place], [place] [phone] Please take this list to your next doctor s visit. Bring all medications you take, including over the counter medications, herbals and other supplements with you to your doctor s visit. Patients and families are reminded to discard old lists and to update any records with all medication providers or retail pharmacies. Education Materials [facility] HOME-GOING INSTRUCTIONS _X_ Keep next scheduled appointment ACTIVITY ___ Bedrest _X__Activity as tolerated ___ No work/school for ___ days. ___Other PRESCRIPTION GIVEN __X_Yes Ursodial sent to pharmacy NAUSEA/VOMITING ___ Take small, frequent amounts of clear liquids. Avoid fruit juices and milk. ___ Increase fluid intake to a minimum of 8 ounces of fluid every hour while awake. ___ Soft diet. Rice, crackers, bananas, Jell-O, cooked carrots, applesauce. ___ Franklin diet. Avoid caffeine, chocolate, alcohol, spiced/greasy foods. [...] IF: _X__ Your abdomen feels continually firm. _X__ *Bleeding is bright red and enough to saturate a pad in one hour or less. *Call 911 or go to the nearest Emergency Room for assistance. Form [id number] D: 01/22 Document Released: 01/31/2006 Document Revised: 01/20/2012 Document Reviewed: 01/31/2006 ExitCare Patient Information 2011 Consolidated Credit Acquisitions. Additional Information VACCINATE! IT SAVES LIVES! Members of the community who have not yet received the COVID-19 vaccine and would like to receive it can visit one of [facility] vaccine clinics. There are many vaccine clinic locations within the [facility]. For locations and available times, please visit [email or web address] [email or web address] It is important to note that some COVID mobile vaccine clinics are held outdoors and may be canceled in rainy or stormy conditions. To learn more about pediatric vaccinations (ages 5-11), we invite you to visit the [facility] webpage. https://www.[employer].org/p ages/7934-Fkukx-Yisyczsuava-Freq ytpchs-Obdcm-Kpbqidwxn.html To learn more about the COVID-19 vaccine, we invite you to visit the CDC website for a list of frequently asked questions. https://www.cdc.gov/coronavirus/ 2019-ncov/vaccines/faq.html [facility] Patient Portal Access Instructions: Stay connected with your healthcare team and access your personal medical information anytime with the [facility] Patient Portal.If you would like a full copy of your medical records, please contact the [facility] Medical Records Department, Tuesday through Tuesday between 8a.m. and 4:30p.m. Please follow the directions below to access the portal: 1.Access the email account you provided upon registration to the hospital.2.Look for an invitation email from [facility].3.Open the email and access the invitation link: Accept Invitation to [facility]4.Fill in the required masterson to create your account. Sign into [email or web address] with your username and password that you [...] you will allow to register on the [facility] Patient Portal for access to your information. You can also access the [facility] Patient Portal on the [employer] kasia. Simply click on Health Records under Health Data and then click on the [employer] logo. HOW TO SAFELY DISPOSE OF PRESCRIPTION [...] Call your local pharmacy or go to [email or web address]/[email or web address] to find one close to you.3.Make use of household items: Use cat litter or old coffee grounds to dispose medications if other options are not available. Mix your drugs with these household products, seal them in an airtight container and throw it into the garbage. Call [facility]: [phone] to be sure your drugs can be [...] been reviewed and explained to me and I,LESTER INFANTE understand my current condition and have read and understand these discharge instructions. I have received a written copy of the plan/instructions. If I have questions, I am aware that I should contact my doctor. Patient/Director Critical Care Signature: Date/Time: Relationship to Patient: Witness Name/Signature: Date/Time: [facility] 11-09-2023 Hospital Discharg e instructions Patient Education [...] pressure, swelling, and other signs should decrease. 9796-4[address] [employer] [address] [place] [address]. All rights reserved. This information is not [...] more than 2 day(s) in a row. 0715-3580 [employer] [address] [place] [address]. All rights reserved. This information is not intended as a substitute for professional medical care. Always follow your healthcare professional's instructions. Follow Up Care 11/09/2023 09:51:15 With:APURVA SINGH MD Address: [address] [place] [address] [place] [phone] When:2-4 days [facility] 11-09-2023 Note Discharge Instructions Thank you for allowing [facility] to assist you with your healthcare needs. The following is important discharge information regarding your hospital visit. Diagnosis from Today's Visit Intermittent lightheadedness What to Do Next Instructions from Your Care Team Please continue to monitor your blood glucose levels and blood pressure levels and follow-up with your [facility]. If you develop sudden onset headache, fluid [...] APURVA SINGH MD When:Within 2-4 days Where:[address] [facility] [address] [facility] [place] [phone] Allergies NKA Medications Please ask your primary [...] pressure, swelling, and other signs should decrease. 9032-0476 [employer] [address] [place] [address]. All rights reserved. This information is not [...] more than 2 day(s) in a row. 4498-8273 [employer] [address] [place] [address], [place] [address]. All rights reserved. This information is not intended as a substitute for professional medical care. Always follow your healthcare professional's instructions. Additional Information VACCINATE! IT SAVES LIVES! Members of the community who have not yet received the COVID-19 vaccine and would like to receive it can visit one of [facility] vaccine clinics. There are many vaccine clinic locations within the [facility]. For locations and available times, please visit [email or web address] gov/. It is important to note that some COVID mobile vaccine clinics are held outdoors and may be canceled in rainy or stormy conditions. To learn more about pediatric vaccinations (ages 5-11), we invite you to visit the [place] [facility] webpage. https://www.[facility].org/p ages/0656-Enbif-Jjeiwoibnud-Freq igqpnk-Zeyoc-Gasqodqgb.html To learn more about the COVID-19 vaccine, we invite you to visit the CDC website for a list of frequently asked questions. https://www.cdc.gov/coronavirus/ 2019-ncov/vaccines/faq.html [facility] Patient Portal Access Instructions: Stay connected with your healthcare team and access your personal medical information anytime with the [facility] Patient Portal. If you would like a full copy of your medical records please contact the [facility] Medical Records Department Tuesday through Tuesday between 8a.m. and 4:30p.m. Please follow the directions below to access the portal: 1.Access the email account you provided upon registration to the hospital.2.Look for an invitation email from [facility].3.Open the email and access the invitation link: Accept Invitation to [facility]4.Fill in the required masterson to create your account. Sign into [email or web address] with your username and password that you [...] you will allow to register on the [facility] Patient Portal for access to your information. You can also access the [facility] Patient Portal on the [place]. Simply click on Health Records under Health [...] Call your local pharmacy or go to http://[email or web address].[employer]/[email or web address] to find one close to you.3.Make use of household items: Use cat litter or old coffee grounds to dispose medications if other options are not available. Mix your drugs with these household products, seal them in an airtight container and throw it into the garbage. Call [facility]: [phone] to be sure your drugs can be [...] been reviewed and explained to me and I,LESTER INFANTE understand my current condition and have read and understand these discharge instructions. I have received a written copy of the plan/instructions. If I have questions, I am aware that I should contact my doctor. Patient/Director Critical Care Signature: Date/Time: Relationship to Patient: Witness Name/Signature: Date/Time: [facility] 08-30-2023 Note HNO ID: [id number] Author: NAYE HANCOCK APRN.[employer] Service: ? Author Type: Nurse Practitioner Type: [...] agreeable to treatment plan. Follow-up with OB. Naey Hancock APRN.[facility] 08-30-2023 History of Presen t illness Narrative [...] to treatment plan. Follow-up with OB. Naye Karissa, SPECIAL POPULATION PARAPROFESSIONAL.BALDEV documented in this encounter [facility] 02-23-2023 Hospital Discharg e instructions Patient Education [...] decreases and the color of blood gets data services developer. Bright red and increased flow may reoccur [...] tender for several weeks. Take prescription or kogi-hvo-rpooqkj medications for pain with your care givers [...] straining when trying to pass a stool. Jsbu-ypj-casnpav medications, stool softeners, can be used. Check [...] one baby. Being 35 or older. Being -Jordanian. Having kidney disease or diabetes. Having medical [...] get plenty of sleep. General instructions Take wgtt-vtm-iloahxx and prescription medicines only as told by [...] 01/28/2001 Document Revised: 10/03/2018 Document Reviewed: 09/06/2016 [employer] Patient Education 2020 [employer]. Follow Up Care 02/20/2023 18:39:56 With:[facility] CL[facility]IC Address: [address] [place] [address] (Tue-Tue from 8:30am - 5:00pm) [place] [address]- When:Within 6 Week(s) Comments:Follow up in 6 weeks for visit. [facility] 02-23-2023 Note Discharge Instructions Thank you for allowing [facility] to assist you with your healthcare needs. The following is important discharge information regarding your hospital visit. Your Care Team PHYSICIAN, NONE Your Diagnosis Post-op pain What to do next Follow Up Appointments Follow Up with [facility] CLIN[facility] When In 6 weeks Why: Follow up in 6 weeks for visit. Where: [address] [facility] (Tue-Tue from 8:30am - 5:00pm) [place] [address]- Someone Will Contact You Regarding These Home [...] Post-op pain Duration: 7 Days Pickup at [facility] New chlorhexidine topical (chlorhexidine 4% topical soap) 0.33 Bottle(s) Topical Every day Use as need around outer perimeter of incision for 5 days post-op to prevent yeast infection Pickup at [facility] New docusate (Colace 100 mg oral capsule) 1 cap by mouth Two (2) times a day as needed for as needed for constipation Refills: 1 Pickup at [facility] New ibuprofen (ibuprofen 600 mg oral tablet) 1 tab(s) by mouth Every 6 hours as needed for for pain Take with food or milk. Pickup at [facility] Changed ferrous sulfate 325 Milligram by mouth Changed ferrous sulfate (IRON (ferrous sulfate 325 mg) 65 mg oral tablet) 1 tab(s) by mouth Once a day Duration: 30 Days Pickup at [facility] Unchanged acetaminophen (Tylenol Extra Strength 500 [...] a day Duration: 30 Days Pharmacy Information [facility]: [address] [place] [address] [phone] Please take this list to your next [...] decreases and the color of blood gets data services developer. Bright red and increased flow may reoccur [...] tender for several weeks. Take prescription or swgk-fns-hvfwxpv medications for pain with your care givers [...] straining when trying to pass a stool. Nxcv-huw-sizfjpg medications, stool softeners, can be used. Check [...] one baby. Being 35 or older. Being -Jordanian. Having kidney disease or diabetes. Having medical [...] get plenty of sleep. General instructions Take avmn-hao-zfafxfq and prescription medicines only as told by [...] 01/28/2001 Document Revised: 10/03/2018 Document Reviewed: 09/06/2016 [employer] Patient Education 2020 [employer] Additional Information VACCINATE! IT SAVES LIVES! Members of the community who have not yet received the COVID-19 vaccine and would like to receive it can visit one of [facility] vaccine clinics. There are many vaccine clinic locations within the [facility]. For locations and available times, please visit [email or web address]. gov/. It is important to note that some COVID mobile vaccine clinics are held outdoors and may be canceled in rainy or stormy conditions. To learn more about pediatric vaccinations (ages 5-11), we invite you to visit the [place] [facility] webpage. https://www.[facility].org/p ages/7185-Orolw-Zbtalasfjkw-Freq qdocma-Hwmej-Tacrpapbf.html To learn more about the COVID-19 vaccine, we invite you to visit the CDC website for a list of frequently asked questions. https://www.cdc.gov/coronavirus/ 2019-ncov/vaccines/faq.html [facility] Patient Portal Access Instructions: Stay connected with your healthcare team and access your personal medical information anytime with the [facility] Patient Portal.If you would like a full copy of your medical records, please contact the [facility] Medical Records Department, Tuesday through Tuesday between 8a.m. and 4:30p.m. Please follow the directions below to access the portal: 1.Access the email account you provided upon registration to the hospital.2.Look for an invitation email from [facility].3.Open the email and access the invitation link: Accept Invitation to [facility]4.Fill in the required masterson to create your account. Sign into [email or web address] with your username and password that you [...] you will allow to register on the [facility] Patient Portal for access to your information. You can also access the [facility] Patient Portal on the [employer] kasia. Simply click on Health Records under [...] Call your local pharmacy or go to http://iStoryTime.[employer]/7M6Fr8y to find one close to you.3.Make use of household items: Use cat litter or old coffee grounds to dispose medications if other options are not available. Mix your drugs with these household products, seal them in an airtight container and throw it into the garbage. Call [facility]: [phone] to be sure your drugs can be [...] aware that I should contact my doctor. Patient/Director Critical Care Signature: Date/Time: Relationship to Patient: Witness Name/Signature: Date/Time: [facility] 02-23-2023 Note Date of Service 02/23/2023 [...] X ) Rubella immune ( ) Rubella ixl-mwnrsx-Nhvvshy given ( ) Rubella wkc-meemnz-Wbpjyxh declined Feeding Burks: (X ) Breast feeding [...] SHEILA VARMA MD on 02/23/2023 05:54 AM [facility] 02-23-2023 Note Date of Service 02/23/2023 [...] X ) Rubella immune ( ) Rubella ewu-supmfr-Uwhezoi given ( ) Rubella ssm-urdzoe-Fblzjcu declined Feeding Burks: (X ) Breast feeding [...] SHEILA VARMA MD on 02/23/2023 05:54 AM [facility] 02-21-2023 Anesthesiology Consult note Patient: LESTER [...] SAMARIA DUNN MD on 02/21/2023 04:08 PM [facility] 02-21-2023 Anesthesiology Consult note Patient: LESTER INFANTE Age: 22 years Sex: Female : 2000 Associated Diagnoses: None Author: KARISSA GARCIA APRN-SHANTELLE Preoperative Information Procedure/ Case: Repeat C/S Time [...] Medical Abnormal uterine bleeding / SNOMED CT 7268079948 / Confirmed Amenorrhea / SNOMED CT 16784320 / Confirmed Anxiety / SNOMED CT 02622700 / Confirmed Anxiety / SNOMED CT 30344711 / Confirmed Body mass index 30+ - obesity / SNOMED CT 868110789 / Confirmed delivery delivered / SNOMED CT 754358421 / Confirmed Cholestasis of / SNOMED CT 476138793 / Confirmed Depression / SNOMED CT 055137595 / Confirmed GDM, class A2 / SNOMED CT 7461133971 / Confirmed Previous section / SNOMED CT 962134057 / Confirmed IUD check up / SNOMED CT 2383111044 / Confirmed Elevated liver enzymes / SNOMED CT 4244436720 / Confirmed Migraine / SNOMED CT 22489553 / Confirmed Encounter for supervision of normal in multigravida in third trimester / SNOMED CT 560164537 / Confirmed Encounter for supervision of normal in multigravida in first trimester / SNOMED CT 476015558 / Confirmed Encounter for supervision of normal in multigravida in second trimester / SNOMED CT 812800677 / Confirmed Encounter for general counseling and advice on contraceptive management / SNOMED CT 812148616 / Confirmed Encounter for IUD insertion / SNOMED CT 076180728 / Confirmed Encounter for IUD removal / SNOMED CT 528035808 / Confirmed exam / SNOMED CT 614308746 / Confirmed / SNOMED CT 370677836 / Confirmed Postop check / SNOMED CT 963819007 / Confirmed UTI symptoms / SNOMED CT 747438886 / Confirmed Urinary tract infection in / SNOMED CT 114588794 / Confirmed UTI in / SNOMED CT 717783497 / Confirmed, Active Problems (27) Abnormal uterine [...] UTI symptoms Histories Past Medical History: Resolved ([id number]): Onset on 02/25/2021 at 20 years. Resolved on 11/10/2021 at 20 years. ([id number]): Onset on 09/06/2019 at 18 years. Resolved on 06/06/2020 at 19 years. ([id number]): Onset on 10/16/2018 at 17 years. Resolved on 07/16/2019 at 18 years. ([id number]): Onset on 05/31/2016 at 15 years. Resolved in 2018 at 16 years. Kidney calculus ([id number]): Resolved. Family History: Cancer Paternal Uncle Comments: 01/23/2020 10:38 Janny Burroughs LPN brain and lung Lupus Grandparent Breast cancer Grandparent Rheumatoid arthritis Grandparent Hypertension Grandparent Heart disease Grandparent Stroke Grandparent Mental illness Father Malignant tumor of lung Paternal Uncle Smoking Mother Grandparent HTN - Hypertension Father Diabetes Grandparent Procedure history: section ([id number]) on 11/10/2021 at 20 Years. delivery ([id number]) on 06/05/2020 at 19 Years. section ([id number]) on 07/16/2019 at 18 Years. delivery - delivered ([id number]) on 11/21/2017 at 16 Years. Social History [...] Height 160.0 cm Admission Weight 125 kg Kimberly Body Weight 52.38 kg BSA Admission 2.22 [...] tenderness. No swelling. Integumentary: Intact, Warm, Dry, [place]. Neurologic: Alert, Oriented, Normal sensory, Normal motor function. Review / Management Results review: No qualifying data available , Lab results 02/21/2023 10:36 EST Lactated Ringers Injection Begin Bag 1,000 mL mL 02/21/2023 10:35 EST CHG Preoperative Wash/Wipe Site specific wipe 02/21/2023 10:34 EST Height 160.0 cm Admission Weight 125 kg Kimberly Body Weight 52.38 kg BSA Admission 2.22 [...] records, Reviewed prior records. Assessment and Plan [place] Society of Anesthesiologists (ASA) physical status classification: [...] by KARISSA GARCIA on 02/21/2023 10:45 AM [facility] 02-15-2023 Hospital Discharg e instructions Patient Education 02/15/2023 19:23:15 7 - Labor and Delivery Outpatient Instructions (CUSTOM) [facility] HOME-GOING INSTRUCTIONS _X_ [...] crackers, bananas, Jell-O, cooked carrots, applesauce. ___ [place] diet. Avoid caffeine, chocolate, alcohol, spiced/greasy foods. [...] the nearest Emergency Room for assistance. Form [id number] D: 01/22 Document Released: 01/31/2006 Document Revised: 01/20/2012 Document Reviewed: 01/31/2006 ExitCare Patient Information 2012 Consolidated [employer] Acquisitions. Follow Up Care 02/15/2023 13:29:22 With:SURESH VALERIO MD Address: [address] [place] [address] [facility] [place] [phone] When: Unknown Comments:Follow-up as scheduled [facility] 02-15-2023 Note Discharge Instructions Thank you for allowing [facility] to assist you with your healthcare needs. The following is important discharge information regarding your hospital visit. Your Care Team PHYSICIAN, NONE What to do next Follow Up Appointments Follow Up with SURESH VALERIO MD When Why: Follow-up as scheduled Where: [address] [place] [address] [place] [place] [address] [phone] Someone Will Contact You Regarding These Home [...] medication providers or retail pharmacies. Education Materials [facility] OUTPATIENT HOME-GOING INSTRUCTIONS _X_ [...] crackers, bananas, Jell-O, cooked carrots, applesauce. ___ [place] diet. Avoid caffeine, chocolate, alcohol, spiced/greasy foods. [...] the nearest Emergency Room for assistance. Form [id number] D: 01/22 Document Released: 01/31/2006 Document Revised: 01/20/2012 Document Reviewed: 01/31/2006 ExitCare Patient Information [address] [facility]. Additional Information VACCINATE! IT SAVES LIVES! Members of the community who have not yet received the COVID-19 vaccine and would like to receive it can visit one of [facility] vaccine clinics. There are many vaccine clinic locations within the [facility]. For locations and available times, please visit www.[email or web address].[place]. gov/. It is important to note that some COVID mobile vaccine clinics are held outdoors and may be canceled in rainy or stormy conditions. To learn more about pediatric vaccinations (ages 5-11), we invite you to visit the [facility] webpage. https://www.[facility].org/p ages/5147-Fwaej-Dehzgnnxgwg-Freq pgdskz-Uzuyh-Anxzivsml.html To learn more about the COVID-19 vaccine, we invite you to visit the CDC website for a list of frequently asked questions. https://www.cdc.gov/coronavirus/ 2019-ncov/vaccines/faq.html [facility] Patient Portal Access Instructions: Stay connected with your healthcare team and access your personal medical information anytime with the [facility] Patient Portal.If you would like a full copy of your medical records, please contact the [facility] Medical Records Department, Tuesday through Tuesday between 8a.m. and 4:30p.m. Please follow the directions below to access the portal: 1.Access the email account you provided upon registration to the hospital.2.Look for an invitation email from [facility].3.Open the email and access the invitation link: Accept Invitation to [facility]4.Fill in the required masterson to create your account. Sign into [email or web address] with your username and password that you [...] you will allow to register on the [facility] Patient Portal for access to your information. You can also access the [facility] Patient Portal on the [place]. Simply click on Health Records under Health [...] Call your local pharmacy or go to [email or web address] to find one close to you.3.Make use of household items: Use cat litter or old coffee grounds to dispose medications if other options are not available. Mix your drugs with these household products, seal them in an airtight container and throw it into the garbage. Call [facility]: [phone] to be sure your drugs can be [...] been reviewed and explained to me and I,LESTER INFANTE understand my current condition and have read and understand these discharge instructions. I have received a written copy of the plan/instructions. If I have questions, I am aware that I should contact my doctor. Patient/Director Critical Care Signature: Date/Time: Relationship to Patient: Witness Name/Signature: Date/Time: [facility] 02-15-2023 Evaluation + Plan note Diagnostic [...] 08/26/22Varicella Zoster Antibody 08/26/22US OB Limited 10/25/22 [facility] 02-12-2023 Hospital Discharg e instructions Patient Education 02/12/2023 15:32:35 7 - Labor and Delivery Outpatient Instructions (CUSTOM) [facility] DELIV[facility] OUTPATIENT HOME-GOING INSTRUCTIONS _X_ [...] crackers, bananas, Jell-O, cooked carrots, applesauce. ___ [place] diet. Avoid caffeine, chocolate, alcohol, spiced/greasy foods. [...] the nearest Emergency Room for assistance. Form [id number] D: 01/22 Document Released: 01/31/2006 Document Revised: 01/20/2012 Document Reviewed: 01/31/2006 [facility] Patient Information 2012 [employer]. Follow Up Care 02/12/2023 12:24:40 With:[facility] Address: [address] [place] [address] (Tue-Tue from 8:30am - 5:00pm) [place] [address]- Business (1) When: Unknown Comments:Follow-up as scheduled [facility] 02-12-2023 Note Discharge Instructions Thank you for allowing [facility] to assist you with your healthcare needs. The following is important discharge information regarding your hospital visit. Your Care Team PHYSICIAN, NONE What to do next Follow Up Appointments Follow Up with [facility] When Why: Follow-up as scheduled Where: [address] [place] [address] (Tue-Tue from 8:30am - 5:00pm) [place] [address]- Business (1) Someone Will Contact You Regarding [...] medication providers or retail pharmacies. Education Materials [facility] AND DELIVERY OUTPATIENT HOME-GOING INSTRUCTIONS _X_ [...] crackers, bananas, Jell-O, cooked carrots, applesauce. ___ [place] diet. Avoid caffeine, chocolate, alcohol, spiced/greasy foods. [...] the nearest Emergency Room for assistance. Form [id number] D: 01/22 Document Released: 01/31/2006 Document Revised: 01/20/2012 Document Reviewed: 01/31/2006 ExitCare Patient Information 2012 [employer]. Additional Information VACCINATE! IT SAVES LIVES! Members of the community who have not yet received the COVID-19 vaccine and would like to receive it can visit one of [facility] vaccine clinics. There are many vaccine clinic locations within the [facility]. For locations and available times, please visit [email or web address]. gov/. It is important to note that some COVID mobile vaccine clinics are held outdoors and may be canceled in rainy or stormy conditions. To learn more about pediatric vaccinations (ages 5-11), we invite you to visit the [facility] webpage. https://www.[facility].org/p ages/7886-Hywfs-Jytijxlgrgb-Freq jwrhvy-Cffsp-Mcldsbeqj.html To learn more about the COVID-19 vaccine, we invite you to visit the CDC website for a list of frequently asked questions. https://www.cdc.gov/coronavirus/ 2019-ncov/vaccines/faq.html [facility] Patient Portal Access Instructions: Stay connected with your healthcare team and access your personal medical information anytime with the [facility] Patient Portal.If you would like a full copy of your medical records, please contact the [facility] Medical Records Department, Tuesday through Tuesday between 8a.m. and 4:30p.m. Please follow the directions below to access the portal: 1.Access the email account you provided upon registration to the hospital.2.Look for an invitation email from [facility].3.Open the email and access the invitation link: Accept Invitation to [facility]4.Fill in the required masterson to create your account. Sign into [email or web address] with your username and password that you [...] you will allow to register on the [facility] Patient Portal for access to your information. You can also access the [facility] Patient Portal on the [employer] kasia. Simply click on Health Records under [...] Call your local pharmacy or go to http://bit.[employer]/[email or web address] to find one close to you.3.Make use of household items: Use cat litter or old coffee grounds to dispose medications if other options are not available. Mix your drugs with these household products, seal them in an airtight container and throw it into the garbage. Call [facility]: [phone] to be sure your drugs can be [...] aware that I should contact my doctor. Patient/Director Critical Care Signature: Date/Time: Relationship to Patient: Witness Name/Signature: Date/Time: [facility] 02-12-2023 Evaluation + Plan note Diagnostic [...] 08/26/22Varicella Zoster Antibody 08/26/22US OB Limited 10/25/22 [facility] 02-10-2023 Hospital Discharg e instructions Patient Education 02/10/2023 09:15:32 7 - Labor and Delivery Outpatient Instructions(CUSTOM) [facility] DELIV[facility] OUTPATIENT HOME-GOING INSTRUCTIONS _X_ [...] crackers, bananas, Jell-O, cooked carrots, applesauce. ___ [place] diet. Avoid caffeine, chocolate, alcohol, spiced/greasy foods. [...] the nearest Emergency Room for assistance. Form [id number] D: 01/22 Document Released: 01/31/2006 Document Revised: 01/20/2012 Document Reviewed: 01/31/2006 ExitCare Patient Information 2012 [employer]. Follow Up Care 02/09/2023 08:20:51 With:[facility] Address: [address] [place] [address] (Tue-Tue from 8:30am - 5:00pm) [place] [address]- When: Unknown Comments:Follow-up as scheduled [facility] 02-10-2023 Note Discharge Instructions Thank you for allowing [facility] to assist you with your healthcare needs. The following is important discharge information regarding your hospital visit. Your Care Team PHYSICIAN, NONE What to do next Follow Up Appointments Follow Up with [facility] When Why: Follow-up as scheduled Where: [address] [facility] (Tue-Tue from 8:30am - 5:00pm) [place] [address]- Someone Will Contact You Regarding These Home [...] a day for 5 days Pickup at [facility] Changed ferrous sulfate 325 Milligram by [...] a day Duration: 30 Days Pharmacy Information [facility]: [address] [place] [address] [phone] Please take this list to your next doctor s visit. Bring all medications you take, including over the counter medications, herbals and other supplements with you to your doctor s visit. Patients and families are reminded to discard old lists and to update any records with all medication providers or retail pharmacies. Education Materials [facility] AND DELIVERY OUTPATIENT HOME-GOING INSTRUCTIONS _X_ [...] crackers, bananas, Jell-O, cooked carrots, applesauce. ___ [place] diet. Avoid caffeine, chocolate, alcohol, spiced/greasy foods. [...] the nearest Emergency Room for assistance. Form [id number] D: 01/22 Document Released: 01/31/2006 Document Revised: 01/20/2012 Document Reviewed: 01/31/2006 ExitCare Patient Information 2012 [employer]. Additional Information VACCINATE! IT SAVES LIVES! Members of the community who have not yet received the COVID-19 vaccine and would like to receive it can visit one of [facility] vaccine clinics. There are many vaccine clinic locations within the [facility]. For locations and available times, please visit [email or web address]. gov/. It is important to note that some COVID mobile vaccine clinics are held outdoors and may be canceled in rainy or stormy conditions. To learn more about pediatric vaccinations (ages 5-11), we invite you to visit the [facility] webpage. https://www.[facility].org/p ages/4146-Eaxcr-Elsdyrtnkhc-Freq quurwq-Pwgiq-Qwbnyoojq.html To learn more about the COVID-19 vaccine, we invite you to visit the CDC website for a list of frequently asked questions. https://www.cdc.gov/coronavirus/ 2019-ncov/vaccines/faq.html [facility] Patient Portal Access Instructions: Stay connected with your healthcare team and access your personal medical information anytime with the [facility] Patient Portal.If you would like a full copy of your medical records, please contact the [facility] Medical Records Department, Tuesday through Tuesday between 8a.m. and 4:30p.m. Please follow the directions below to access the portal: 1.Access the email account you provided upon registration to the [facility].2.Look for an invitation email from [facility].3.Open the email and access the invitation link: Accept Invitation to [facility]4.Fill in the required masterson to create your account. Sign into [email or web address] with your username and password that you [...] you will allow to register on the [facility] Patient Portal for access to your information. You can also access the [facility] Patient Portal on the [employer] kasia. Simply click on Health Records under Health Data and then click on the [employer] logo. HOW TO SAFELY DISPOSE OF PRESCRIPTION [...] Call your local pharmacy or go to http://bit.[employer]/[email or web address] to find one close to you.3.Make use of household items: Use cat litter or old coffee grounds to dispose medications if other options are not available. Mix your drugs with these household products, seal them in an airtight container and throw it into the garbage. Call [facility]: [phone] to be sure your drugs can be [...] aware that I should contact my doctor. Patient/Director Critical Care Signature: Date/Time: Relationship to Patient: Witness Name/Signature: Date/Time: [facility] 01-26-2023 Hospital Discharg e instructions Patient Education 01/26/2023 17:03:35 7 - Labor and Delivery Outpatient Instructions (CUSTOM) [facility] DELIV[facility] OUTPATIENT HOME-GOING INSTRUCTIONS _X_ [...] crackers, bananas, Jell-O, cooked carrots, applesauce. ___ [place] diet. Avoid caffeine, chocolate, alcohol, spiced/greasy foods. [...] the nearest Emergency Room for assistance. Form [id number] D: 01/22 Document Released: 01/31/2006 Document Revised: 01/20/2012 Document Reviewed: 01/31/2006 [facility] [address] [facility] Follow Up Care 01/26/2023 09:39:51 With:OB, OB CLINIC Address: [address] [place] [address]- When: Unknown Comments:Follow-up as scheduled [facility] 01-26-2023 Note Discharge Instructions Thank you for allowing [facility] to assist you with your healthcare needs. The following is important discharge information regarding your hospital visit. Your Care Team PHYSICIAN, NONE What to do next Follow Up Appointments Follow Up with OB, OB CLINIC When Why: Follow-up as scheduled Where: [address] [place] [address]- Someone Will Contact You Regarding These Home [...] medication providers or retail pharmacies. Education Materials [facility] DELIV[facility] OUTPATIENT HOME-GOING INSTRUCTIONS _X_ [...] crackers, bananas, Jell-O, cooked carrots, applesauce. ___ [place] diet. Avoid caffeine, chocolate, alcohol, spiced/greasy foods. [...] the nearest Emergency Room for assistance. Form [id number] D: 01/22 Document Released: 01/31/2006 Document Revised: 01/20/2012 Document Reviewed: 01/31/2006 ExitCare Patient Information [address] [facility]. Additional Information VACCINATE! IT SAVES LIVES! Members of the community who have not yet received the COVID-19 vaccine and would like to receive it can visit one of [facility] vaccine clinics. There are many vaccine clinic locations within the [facility]. For locations and available times, please visit [email or web address]. gov/. It is important to note that some COVID mobile vaccine clinics are held outdoors and may be canceled in rainy or stormy conditions. To learn more about pediatric vaccinations (ages 5-11), we invite you to visit the [facility] webpage. https://www.[facility].org/p ages/7572-Ifjel-Hkwszdpruea-Freq psztuv-Rnmmn-Yhibtjwzh.html To learn more about the COVID-19 vaccine, we invite you to visit the CDC website for a list of frequently asked questions. https://www.cdc.gov/coronavirus/ 2019-ncov/vaccines/faq.html [facility] Patient Portal Access Instructions: Stay connected with your healthcare team and access your personal medical information anytime with the [facility] Patient Portal.If you would like a full copy of your medical records, please contact the [facility] Medical Records Department, Tuesday through Tuesday between 8a.m. and 4:30p.m. Please follow the directions below to access the portal: 1.Access the email account you provided upon registration to the hospital.2.Look for an invitation email from [facility].3.Open the email and access the invitation link: Accept Invitation to [facility].Fill in the required masterson to create your account. Sign into [email or web address] with your username and password that you [...] you will allow to register on the [facility] Patient Portal for access to your information. You can also access the [facility] Patient Portal on the [employer] kasia. Simply click on Health Records under Health Data and then click on the [employer] logo. HOW TO SAFELY DISPOSE OF PRESCRIPTION [...] Call your local pharmacy or go to http://bit.[employer]/6U9Bd7z to find one close to you.3.Make use of household items: Use cat litter or old coffee grounds to dispose medications if other options are not available. Mix your drugs with these household products, seal them in an airtight container and throw it into the garbage. Call [facility]: [phone] to be sure your drugs can be [...] aware that I should contact my doctor. Patient/Director Critical Care Signature: Date/Time: Relationship to Patient: Witness Name/Signature: Date/Time: [facility] 01-26-2023 Evaluation + Plan note Diagnostic [...] 08/26/22Varicella Zoster Antibody 08/26/22US OB Limited 10/25/22 [facility] 01-13-2023 Evaluation + Plan note Extrac tony from: Title:Clinical Document Author:APURVA SINGH MD Date:01/13/23 [facility] ADMISSION HISTORY AN D PHYSICIAL CHIEF COMPLAINT: [...] SYSTEMS: ACTIVE PROBLEMS: (26) Abnormal uterine bleeding (6583940077) Amenorrhea (93598008) Anxiety (87428390) Anxiety (18816624) Body mass index 30+ - obesity (666815742) delivery delivered (780481479) Cholestasis of (918653675) Depression (229121073) Elevated liver enzymes (0079956630) Encounter for general counseling and advice on contraceptive management (193758206) Encounter for IUD insertion (548879067) Encounter for IUD removal (874639128) Encounter for supervision of normal in multigravida in first trimester (095257434) Encounter for supervision of normal in multigravida in second trimester (485724423) Encounter for supervision of normal in multigravida in third trimester (582763264) GDM, class A2 (3705008333) Gestational diabetes (12364799) IUD check up (4763565045) Migraine (18696258) Postop check (437008385) exam (546552149) (811015150) Previous section (215598175) Urinary tract infection in (511886312) UTI in (461025502) UTI symptoms (459037757) MEDICATIONS: Active Inpt Meds: None Active PRN Meds: None One Time Meds: None Active IV Meds: None ALLERGIES: (1) NKA FAMILY HISTORY: No significant family history pertaining to this admission SOCIAL HISTORY: Non-smoker, no alcohol use, no toxic habits lives with PHYSICAL EXAM: VITALS: LbjpjqGqvtOBZhqxjBMIdY6TFY2LpbdIp(kg) 01/12 21:0536.8--43835--HT10/35506.2 24 Hr Tmax: 36.8 at 01/12 21:05 [...] acute depression or anxiety LABS: 36hr Labs 11/29 2126 Blood Glucose, Skpkerzzw164F Blood Glucose, Lrukutigt093F Time of Stated Blood Glucose0:4770244870009049:0.421897:126:0 01/13 2116 Creatinine Lvl (s)0.63 Albumin Level2.3L Alk Eszx719L Bili Total0.5 BUN5L Calcium Lvl8.5 Clbfyjhm562 CO225 Glucose Etrzx619G Potassium Level3.5 Sodium Kkeng445 Total Protein7.0 BUN/Creatinine Ratio8 Globulin4.7 A/G Ratio0.5L AST/SGOT35 ALT/TAUM16W Electrolyte Mjkswcd80.0 GFR Non- Osuvkgrc977 GFR Gftkvrrs236 01/12 2103 Blood Type, ExtSee Flowsheet Rubella, ExternSee Flowsheet HIV Antibodies,See Flowsheet Group B Strep,See Flowsheet Hepatitis B, ExSee Flowsheet Hepatitis B Date Performed1:[id number]:0.732838:0:0 RPR, ExternalSee Flowsheet DIAGNOSTICS: Reassuring NST IMPRESSION: [...] Date:01/17/2023 09:00:00 AM Scheduled Provider:APURVA SINGH MD [facility] Appointment Type:[facility] Routine Follow Up Diagnostic Tests Pending [...] Antibody 08/26/22 Radiology* US OB Limited 10/25/22 [facility] 11-30-2023 Hospital Discharge instructions Patient Education 01/13/2023 09:54:39 7 - Labor and Delivery Outpatient Instructions (CUSTOM) [facility] DELIV[facility] OUTPATIENT HOME-GOING INSTRUCTIONS _X_ [...] crackers, bananas, Jell-O, cooked carrots, applesauce. ___ [place] diet. Avoid caffeine, chocolate, alcohol, spiced/greasy foods. [...] the nearest Emergency Room for assistance. Form [id number] D: 01/22 Document Released: 01/31/2006 Document Revised: 01/20/2012 Document Reviewed: 01/31/2006 ExitCare Patient Information 2012 [employer]. Follow Up Care 01/12/2023 20:45:05 With:HOLLIS DUPREE, APURVA Paez Address: [address] [place] [address] [facility] [address]- [phone] When: Unknown Comments:Follow-up as scheduled [facility] 11-30-2023 Note [facility] ADMISSION HISTORY AND PHYSICIAL CHIEF COMPLAINT: 22-year-old [...] SYSTEMS: ACTIVE PROBLEMS: (26) Abnormal uterine bleeding (5564535242) Amenorrhea (02156552) Anxiety (12692052) Anxiety (65956505) Body mass index 30+ - obesity (585402983) delivery delivered (083296124) Cholestasis of (779088840) Depression (522693598) Elevated liver enzymes (1923854241) Encounter for general counseling and advice on contraceptive management (444258689) Encounter for IUD insertion (688804523) Encounter for IUD removal (507038195) Encounter for supervision of normal in multigravida in first trimester (036112191) Encounter for supervision of normal in multigravida in second trimester (702989498) Encounter for supervision of normal in multigravida in third trimester (516854653) GDM, class A2 (9788776802) Gestational diabetes (13634454) IUD check up (0574461195) Migraine (67174738) Postop check (602188907) exam (116524331) (756247680) Previous section (460550733) Urinary tract infection in (084379923) UTI in (828588121) UTI symptoms (828906435) MEDICATIONS: Active Inpt Meds: None Active PRN Meds: None One Time Meds: None Active IV Meds: None ALLERGIES: (1) NKA FAMILY HISTORY: No significant family history pertaining to this admission SOCIAL HISTORY: Non-smoker, no alcohol use, no toxic habits lives with PHYSICAL EXAM: VITALS: LobuosMuumUDIzxgzGZQgA4GBR7JjljAs(kg) 01/12 21:0536.8--39163--CX92/93895.2 24 Hr Tmax: 36.8 at 01/12 21:05 [...] LABS: 36hr Labs 01/12 2126 Blood Glucose, Cxghlpjof542D Blood Glucose, Gqaqvgimr543A Time of Stated Blood Glucose0:2306358298409331:0.290977:126:0 01/13 2116 Creatinine Lvl (s)0.63 Albumin Level2.3L Alk Qadj678I Bili Total0.5 BUN5L Calcium Lvl8.5 Tbzqdulp259 CO225 Glucose Yxqdg294O Potassium Level3.5 Sodium Otgeq753 Total Protein7.0 BUN/Creatinine Ratio8 Globulin4.7 A/G Ratio0.5L AST/SGOT35 ALT/KQAU40J Electrolyte Upjdypw33.0 GFR Non- Ybrcvhpz555 GFR Dgsigsez088 01/12 2103 Blood Type, ExtSee Flowsheet Rubella, ExternSee Flowsheet HIV Antibodies,See Flowsheet Group B Strep,See Flowsheet Hepatitis B, ExSee Flowsheet Hepatitis B Date Performed1:[id number]:0.908018:0:0 RPR, ExternalSee Flowsheet DIAGNOSTICS: Reassuring NST IMPRESSION: [...] APURVA SINGH MD on 01/13/2023 08:45 AM [facility] [id number] Hospital Discharge instructions Patient Education 12/16/2022 11:21:19 7 - Labor and Delivery Outpatient Instructions (CUSTOM) [facility] DELIVERY OUTPATIENT HOME-GOING INSTRUCTIONS _X_ [...] crackers, bananas, Jell-O, cooked carrots, applesauce. ___ [place] diet. Avoid caffeine, chocolate, alcohol, spiced/greasy foods. [...] the nearest Emergency Room for assistance. Form [id number] D: 01/22 Document Released: 01/31/2006 Document Revised: 01/20/2012 Document Reviewed: 01/31/2006 [facility]. Follow Up Care 12/16/2022 10:52:39 With:HOLLIS DUPREE, APURVA Paez Address: [address] [place] [address] [facility] [place], [place] [address]- [phone] When: Unknown Comments:Follow-up as scheduled [facility] 10-19-2023 Hospital Discharge instructions Patient Education 12/02/2022 14:19:39 7 - Labor and Delivery Outpatient Instructions (CUSTOM) [facility] DELIV[facility] OUTPATIENT HOME-GOING INSTRUCTIONS _X_ [...] crackers, bananas, Jell-O, cooked carrots, applesauce. ___ [place] diet. Avoid caffeine, chocolate, alcohol, spiced/greasy foods. [...] the nearest Emergency Room for assistance. Form [id number] D: 01/22 Document Released: 01/31/2006 Document Revised: 01/20/2012 Document Reviewed: 01/31/2006 [facility] Patient Information 2012 [employer]. Follow Up Care 12/02/2022 11:23:21 With:HOLLIS DUPREE, APURVA Paez Address: [address] [place] [address] [facility] [place] [address]- [phone] When: Unknown Comments:Follow-up as scheduled [facility] 10-19-2023 Note OB consultation/progress note: Lester presented to labor and delivery today with complaints of crampy contraction-like pains, vaginal bleeding, and some dizziness and lightheadedness at home. She initially was seen in [facility] ER and was monitored with a monitor [...] APURVA SINGH MD on 12/02/2022 01:24 PM [facility]10-11-2023 Hospital Discharge instructions Patient Education 11/24/2022 10:25:46 [place] [facility] Outpatient Instructions (AORN) [facility]IV[facility] OUTPATIENT HOME-GOING INSTRUCTIONS _X_ [...] crackers, bananas, Jell-O, cooked carrots, applesauce. ___ [place] diet. Avoid caffeine, chocolate, alcohol, spiced/greasy foods. [...] 01/22 Follow Up Care 11/24/2022 09:25:42 With:MARYJANE VAILA MD Address: [address] [place] [address] [facility] [place], [place] [id number]- [phone] When: only if needed [facility] 09-29-2023 Hospital Discharge instructions Patient Education 11/12/2022 14:40:14 7 - Labor and Delivery Outpatient Instructions(CUSTOM) [place] [facility] DELIV[facility] OUTPATIENT HOME-GOING INSTRUCTIONS _X_ [...] crackers, bananas, Jell-O, cooked carrots, applesauce. ___ [place] diet. Avoid caffeine, chocolate, alcohol, spiced/greasy foods. [...] the nearest Emergency Room for assistance. Form [id number] D: 01/22 Document Released: 01/31/2006 Document Revised: 01/20/2012 Document Reviewed: 01/31/2006 [facility] Patient Information 2012 [employer]. Follow Up Care 11/12/2022 09:42:52 With:MARYJANE AVILA MD Address: [address] [place] [address] [facility] [address]- [phone] When:11/15/2022 14:40:00 [facility] 09-29-2023 Note Date of Service 11/12/22 History of Present Illness 21 yo @ 22.5 here for contractions. She started having some spotting and contractions on Tuesday night, seen in ER in [place] and given abx for suspected UTI. Contractions [...] contractions, # 18 cap(s), 0 Refill(s), [facility]acy: [facility] #[id number], 160, cm, 11/12/22 9:56:00 EDT, Height, kg, [...] Procedure/Surgical History section: 11/10/21 delivery: 06/05/20 section: 06/01/20 Medications Inpatient No active inpatient medications Home [...] MARYJANE AVILA MD on 11/12/2022 02:47 PM [facility]09-29-2023 Evaluation + Plan noteExtracted from: Title:Consult [...] # 18 cap(s), 0 Refill(s), [facility]acy: [id number], 160, cm, 11/12/22 9:56:00 EDT, Height, kg, 11/12/22 9:56:00 EDT, Dosing We... Affirm Pathogens DNA Direct Probe Chlamydia trachomatis PCR Communication Order (continuous) Discharge Discharge Activity Discharge Diet Monitoring N. gonorrhoeae PCR Vital Signs Vital Signs Call Parameters Future Appointments Appointment Date:11/22/2022 10:45:00 AM Scheduled Provider:APURVA SINGH MD Location:[facility] Appointment Type: OV OB Routine Follow Up [...] Antibody 08/26/22 Radiology* US OB Limited 10/25/22 [facility] 09-29-2023 Hospital Discharge instructions Patient Education 11/11/2022 22:50:03 [place] [facility] Outpatient Instructions (AORN) [facility]IV[facility] OUTPATIENT HOME-GOING INSTRUCTIONS _X_ [...] crackers, bananas, Jell-O, cooked carrots, applesauce. ___ [place] diet. Avoid caffeine, chocolate, alcohol, spiced/greasy foods. [...] the nearest Emergency Room for assistance. Form [id number] D: 01/22 Follow Up Care 11/11/2022 19:21:37 With:HOLLIS DUPREE, APURVA Paez Address: [address] [place] [address] [facility] [address]- [phone] When: Unknown Comments:CALL TOMORROW TO SCHEDULE AN APPOINTMENT FOR Tuesday11/15/22 [facility] 09-26-2023 History and physical note Author [facility]ina [facility] November 09, 2022 12:28pm Note Date/Time November 09, 2022 8:37am [facility] Medical Records Department [address] [place] [id number] OB Triage Physician Note 11/09/22 0834 MR#: [id number] Acct: [id number] Name: LESTER INFANTE Rep #:[id number] : 2000 21 From: Karina Lujan DO PCP: Care Physician,No Primary Status :REG CLI Y Location: [address] HPI - General HPI Narrative LESTER INFANTE, is a 21 y/o @ 22 weeks (per patient) who presents, who presents to L&D as a no doc patient with the complaint of RUQ pain under her rib, blurry vision, (no headache), and a gush of pink fluid from the vagina thisam. She states that it was about a cup worth of fluid. She denies urinary incontinence or dysuria. She sees Dr. Singh in [place] and has a history of pre-e with first and 3 prior sections. She also states that she did not feel the baby move much last night. She denies a history of diabetesor hypertension. she is morbidly obese and is being treated for a yeast infection in the pannus currently. Maternal Data Information Gestational age: 22 weeks [facility] Medical History Anxiety and depression delivery delivered History of kidney stones History of migraine History of pre-eclampsia Home Medications vitamin with calcium no.72-iron 27 mg-folic acid 1 mg tablet ( Vitamins Plus Low Iron) 1 tab PO DAILY 04/14/21 [History Last Taken 11/08/22 07:00 1 TAB] Allergy/AdvReac Type Severity Reaction Status Date / Time No Known Allergies Allergy Verified 11/09/22 07:37 Family History Grandfather Hypertension Grandmother Diabetes CVA (cerebral vascular accident) Hypertension Lupus Grandfather Diabetes Myocardial infarction CAD (coronary artery disease) Hypertension Surgical History History of Social History Smoking Status: Never smoker History Elective abortions Hx Para 0 Spontaneous abortions Hx # Term Pregnancies Ectopic pregnancies Hx # Pregnancies Multiple births # of living children ROS Constitutional Constitutional: Reports systems reviewed and no addt'l complaints, except as documented Gastrointestinal Gastrointestinal: Denies bloating, constipation, cramping, diarrhea, nausea or vomiting Genitourinary Genitourinary: Reports other Details: Denies vaginal odor, vaginal bleeding, or vaginal discharge ; Denies difficulty urinating or flank pain Physical Exam HEENT normocephalic Resp normal respiratory effort and normal air movement GI GI Narrative: obese, non-tender. cutaneous yeast infection present as is obvious from the smell and red lacy rash. no CVA tenderness Narrative: bedside ultrasound shows a transverse live fetus with RACHEAL of 12.24, hiccups noted, flexion/extension and gross body movement seen. OB / External & Speculum: other no fluid or blood in the vagina. Manual OB Exam: not dilated nor effaced and dilated no dilation or effacement Uterus Palpation: uterus tender Amniotic Fluid: no amniotic fluid noted Extremity normal to inspection General Extremity: edema bilateral (trace ) Assessment & Plan (1) Blurry vision: (2) Vaginal bleeding during , antepartum: (3) Right upper quadrant abdominal pain: COMMENT: x 3 PLAN: Plan CBC, CMP, LDH, Prot: cr ratio, UA stat no signs of fluid leaking, blood, no signs of labor on spec exam but will send off ROM + lab follow up: PIH labs are all normal, UA shows 3+ bacteria and leukocytes ROM + is negative pt was given news of negative results and reports that since being here has started having some mild cramping. Plan to give 1 gram of ancef now and plan foroutpatient keflex with close follow up with her primary OB in [place]. Charges/Coding Multi Select Codes Visit Charges Office Visit/Consults: 01090 OV L3 Est 11/09/22 1228 <Electronically signed by Karina Huff DO> Date _ Karina Lujan DO Cosigner Signature (if applicable): Date CC: Dr. Karina Lujan DO; No Primary Care Physician ~ Signed [facility] Work Phone: [phone]) 902-970707-13-2023 Evaluation + Plan note Future Scheduled Tests [...] Antibody 08/26/22 Radiology* US OB Limited 10/25/22 [facility] 05-21-2023 Evaluation + Plan note Future Scheduled Tests Laboratory* hCG, quantitative(AO) 07/04/22 * hCG, quantitative(AO) 07/06/22 * hCG, quantitative(AO) 07/08/22 * hCG, quantitative(AO) 07/10/22 [facility] 05-21-2023 Evaluation + Plan note Future [...] Antibody 08/26/22 Radiology* US OB Limited 10/25/22 [facility] 09-29-2022 Hospital Discharge instructions Patient Education 11/12/2021 07:50:30 7b- Depression and Blues (11/2019)(CUSTOM) [place] Depression and Blues All mothers are at [...] psychosis. Often, a screening tool called the English Depression Scale is used to diagnose depression [...] music. Avoid alcohol. Ask for help with networking administrator, cooking, grocery shopping, or running errands as needed. Do nottry to do everything. Talk to people close to you about how you are feeling. Get support from your partner, family members, and friends. Try to stay positive in how you think. Think about the things you are grateful for. Do not spend a lot of time alone. Only take vutx-mhm-yzpduqn or prescription medicine as directed by your [...] not doing well or get worse. Resource: [facility] Patient Information [address] [facility]. This information is not intended to replace [...] Follow these instructions at home: Medicines Take qreu-dic-svysojs and prescription medicines only as told by [...] 05/28/2005 Document Revised: 10/20/2018 Document Reviewed: 02/01/2017 [employer] Patient Education 2020 [employer] 11/12/2021 07:50:08 Delivery, Care After Delivery, Care [...] and water are not available, use hand clearing house clerk. ?If you have a dressing, change it [...] this until your incision heals. Medicines Take tszy-dfb-mlgvvrg and prescription medicines only as told by [...] 10/23/2002 Document Revised: 08/09/2018 Document Reviewed: 08/09/2018 [employer] Patient Education 2020 [employer]. Follow Up Care 11/10/2021 12:05:16 With:HOLLIS DUPREE, APURVA Paez Address: [address] [place] [address] [facility] [address]- [phone] When: Unknown Comments:Please schedule followup post operative visit next week [facility] 09-29-2022 Note Postoperative day #2 progress [...] APURVA SINGH MD on 11/12/2021 08:31 AM [facility] [id number] Evaluation + Plan noteExtracted from: Title:Clinical Document Author:BERONICA FLOYD MD Date:11/11/21 Subjective Good pain control, no further headache now. Lochia small. Tolerating regular diet. no nausea Objective Patient with normal gait in no acute distress. Pallor. Alert and oriented x3, cooperative Abdomen: Dressings clean and dry Soft, nontender. Extremities: Nontender, no redness, no edema, VITALS TgokuvWzywFYCmphxEHUoH5NTN8ZmvnTt(kg) 11/11 12:08--105/6376------.0 11/11 10:03--99/80859406KF18/27130.0 11/11 08:1836.5117/6472--100RA 11/11 06:02--111/52079114GS 11/11 03:5436.897/62025858RK 24 Hr Tmax: 36.9 at 11/11 00:35 [...] 0, 11/10/21 20:53:00 EDT Problems (7) Anxiety (67985925) Body mass index 30+ - obesity (476909444) Depression (751946349) Encounter for supervision of normal in multigravida in third trimester (691073898) Migraine (63702904) (608629768) Previous section (809283968) ASSESSMENT/PLAN: POD#1 after repeat Yeast infection. Will start topicals & Betadine to incision Extracted from: Title:Clinical Document Author:BERONICA FLOYD MD Date:11/10/21 [place] ADMISSION HISTORY AN D PHYSICIAL CHIEF COMPLAINT: Severe headache not responding to medication and seeing spots in her visual field HISTORY OF PRESENT ILLNESS: 20-year-old white female 4 para 3 all by section presenting with the above symptoms for at least the second time. She was seen and evaluated for this last week and sent home on cbjf-mvu-yuidkuy medications she is back again today with [...] fluid or bleeding. ACTIVE PROBLEMS: (7) Anxiety (09071596) Body mass index 30+ - obesity (130284913) Depression (513541757) Encounter for supervision of normal in multigravida in third trimester (601626262) Migraine (76199357) (173718923) Previous section (433543590) MEDICATIONS: Active Inpt Meds: cefOXitin (Mefoxin) Start: [...] significant other and children PHYSICAL EXAM: VITALS: MwxjxaKaiqDTWbxihUEDuQ7JIQ6LebuSp(kg) 11/10 12:45--109/4386--99--.0 11/10 12:38--118/4691--98--.0 11/10 12:1636.8111/14606336HH 24 Hr Tmax: 36.8 at 11/10 12:16 [...] with delivery once we can get the infant together. Note is that the patient states she signed papers for sterilization however she is not 21 yet. The provider who has cared for her most during this stated earlier that this patient did not want sterilization performed any case. Future Appointments Appointment Date:11/19/2021 09:45:00 AM Scheduled Provider:APURVA SINGH MD Location:[facility] Appointment Type:[facility] Future Scheduled Tests Laboratory* hCG, quantitative(AO) 03/23/21 * hCG, quantitative(AO) 03/29/21 * hCG, quantitative(AO) 02/16/21 * Panel (AO) 04/20/21 * Glucose 1 Hour Challenge 08/20/21 * Rapid Plasma Reagin Test 08/20/21 * Uric Acid 08/27/21 * 24 Hr Urine Total Protein (AO) 09/17/21 * Complete Blood Count 08/20/21 * 24 Hr Urine Creatinine (AO) 09/03/21 [facility] 09-27-2022 Note Patient mentioned that she [...] BERONICA FLOYD MD on 11/10/2021 07:04 PM [facility]09-27-2022 Note [place] ADMISSION HISTORY AND PHYSICIAL CHIEF COMPLAINT: Severe headache not responding to medication and seeing spots in her visual field HISTORY OF PRESENT ILLNESS: 20-year-old white female 4 para 3 all by section presenting with the above symptoms for at least the second time. She was seen and evaluated for this last week and sent home on llah-bho-pzwhnyw medications she is back again today with [...] fluid or bleeding. ACTIVE PROBLEMS: (7) Anxiety (23013787) Body mass index 30+ - obesity (601076615) Depression (558222083) Encounter for supervision of normal in multigravida in third trimester (516183222) Migraine (30634926) (266725246) Previous section (067742444) MEDICATIONS: Active Inpt Meds: cefOXitin (Mefoxin) Start: [...] significant other and children PHYSICAL EXAM: VITALS: WvqafzTmhhHUEyjumTQQrJ3EGA0YqdlPg(kg) 11/10 12:45--109/4386--99--.0 11/10 12:38--118/4691--98--.0 11/10 12:1636.8111/87349086HA 24 Hr Tmax: 36.8 at 11/10 12:16 [...] No 36hr Lab Data DIAGNOSTICS: BPP of 88 today. IMPRESSION: 1. 36+6-week intrauterine 2. Previous [...] with delivery once we can get the infant together. Note is that the patient states she signed papers for sterilization however she is not 21 yet. The provider who has cared for her most during this stated earlier that this patient did not want sterilization performed any case. Digitally Signed by BERONICA FLOYD MD on 11/10/2021 08:41 PM [facility]09-05-2022 Hospital Discharge instructions Patient Education 10/19/2021 16:14:35 [place] L&D Outpatient Instructions (AORN) [facility] DELIVERY OUTPATIENT HOME-GOING INSTRUCTIONS _X_ [...] crackers, bananas, Jell-O, cooked carrots, applesauce. ___ [place] diet. Avoid caffeine, chocolate, alcohol, spiced/greasy foods. [...] the nearest Emergency Room for assistance. Form [id number] D: 01/22 Follow Up Care 10/19/2021 15:28:05 With:BERONICA FLOYD MD Address: [address] [place] [address] [facility] [address] [phone] When: only if needed [facility] 08-26-2022 Hospital Discharge instructions Patient Education 10/09/2021 12:49:52 [place] L&D Outpatient Instructions (AORN) [facility] DELIVERY OUTPATIENT HOME-GOING INSTRUCTIONS _X_ [...] crackers, bananas, Jell-O, cooked carrots, applesauce. ___ [place] diet. Avoid caffeine, chocolate, alcohol, spiced/greasy foods. [...] the nearest Emergency Room for assistance. Form [id number] D: 01/22 Follow Up Care 10/09/2021 11:15:17 With:APURVA SINGH Address: [address] [place] [address] [facility] [address]- [phone] Business (1) When: Unknown [facility] 08-18-2022 Hospital Discharge instructions Patient Education 10/01/2021 11:18:34 7 - Labor and Delivery Outpatient Instructions(CUSTOM) [place] [facility] DELIVERY OUTPATIENT HOME-GOING INSTRUCTIONS _X_ [...] crackers, bananas, Jell-O, cooked carrots, applesauce. ___ [place] diet. Avoid caffeine, chocolate, alcohol, spiced/greasy foods. [...] the nearest Emergency Room for assistance. Form [id number] D: 01/22 Document Released: 01/31/2006 Document Revised: 01/20/2012 Document Reviewed: 01/31/2006 ExitCare Patient Information 2012 [employer] Follow Up Care 10/01/2021 10:21:31 With:APURVA SINGH Address: [address] [facility] [address] [phone] Business (1) When: Unknown [facility] 07-28-2022 History of Present illness Narrative* Dianelys Marroquin APRN.[employer]DEV - 09/10/2021 12:33 PM EDT Subjective HPI Lester Infante is a 20 year old female who presents to [facility] care for evaluation of body aches, diarrhea, and nausea for 3 days. She denies fever or associated URI symptoms. She took a COVID test at home yesterday it was negative. She is 28 weeks . She admits to having low back pain, lower abdominal cramping, and some bleeding with wiping this morning. She called her [employer] INSPECTOR but they are not in the office [...] further evaluation. Patient agreeable. Report sent to [facility] via ER passport. Dianelys Marroquin APRN.UNIVERSITY INTERN [facility] Discharge instructions Follow Up Care 09/07/2021 09:52:49 With:HOLLIS DUPREE, APURVA Paez Address: [address] [place] [address] [facility] [address]- [phone] When: Unknown Comments:Follow-up as scheduled [facility] 07-13-2022 Hospital Discharge instructions Patient Education 08/26/2021 17:27:20 [place] L&D Outpatient Instructions (AORN) [facility] DELIVERY OUTPATIENT HOME-GOING INSTRUCTIONS _X_ [...] crackers, bananas, Jell-O, cooked carrots, applesauce. ___ [place] diet. Avoid caffeine, chocolate, alcohol, spiced/greasy foods. [...] assistance. Form D: 01/22 Follow Up Care 08/26/2021 14:59:41 With:BERONICA FLOYD Address: [address] [facility] [address] [facility] [place] [address]- [phone] Business (1) When: Unknown [facility] 05-01-2022 Hospital Discharge instructions Patient Education 06/14/2021 [...] muscle Coronary artery disease High blood pressure Vrs-ywczf-zicsbzx causes: Certain medicines such as asthma inhalers [...] Tell your doctor about any prescription or gzyy-qgk-wvemwfm or herbal medicines you take. Follow-up care [...] of the following: Weakness Dizziness Lightheadedness Fainting [phone] [employer] [address] [place] [address], [place] [address]. All rights reserved. This information is not intended as a substitute for professional medical care. Always follow yourhealthcare professional's instructions. Follow Up Care 06/14/2021 14:03:58 With:Follow up with primary care provider Address:Unknown When:2-4 days [facility] 03-28-2022 Hospital Discharge instructions Patient Education 05/11/2021 14:34:31 7 - Labor and Delivery Outpatient Instructions (CUSTOM) [place] [facility] DELIVERY OUTPATIENT HOME-GOING INSTRUCTIONS _X_ [...] crackers, bananas, Jell-O, cooked carrots, applesauce. __x_ [place] diet. Avoid caffeine, chocolate, alcohol, spiced/greasy foods. [...] the nearest Emergency Room for assistance. Form [id number] D: 01/22 Document Released: 01/31/2006 Document Revised: 01/20/2012 Document Reviewed: 01/31/2006 ExitCare Patient Information 2011 [employer]. Follow Up Care 05/11/2021 11:26:31 With:APURVA SINGH MD Address: [phone] When: Unknown Comments:Follow-up as scheduled [facility] 12-12-2021 Hospital Discharge instructions Patient Education [...] foods again, start with small amounts of tjtq-zv-zeoiqy, low- fat foods. These include apple sauce, [...] increase stomach acid. Don't use aspirin or ceui-rgu-bqjyoav pain and fever medicines, if possible. This includes nonsteroidal anti-inflammatory drugs (NSAIDs). Lose excess weight. Finish eating at least 2 hours before you go to bed or lie down. Raise the head of your bed. [id number] [employer] [address] [place] [address]. All rights reserved. This information is not intended as a substitute for professional medical care. Always follow yourhealthcare professional's instructions. Follow Up Care 01/25/2021 15:36:08 With:Follow up with primary care provider Address:Unknown When:2-4 days [facility] 07-19-2006 History of Past illness Narrative* Problem Noted Date Resolved Date ABSCESS FOOT (EXCEPT TOE)(Right plantar) 006 03/25/2015 documented as of this encounter (statuses as of 09/10/2021) [facility] Future Appointments Appointment Date:04/13/2021 10:00:00 AM Scheduled Provider:HOLLIS DUPREE, APURVA Paez Location:[facility] Appointment Type:[facility] Annual Exam Future Scheduled Tests Laboratory* Glucose 1 Hour Challenge 04/14/20 * Glucose 1 Hour Challenge 03/17/20 * Glucose 1 Hour Challenge 02/25/20 * Glucose 1 Hour Challenge 03/24/20 * Glucose 1 Hour Challenge 02/14/20 * Urine Culture 08/14/20 * Complete Blood Count 03/17/20 * Complete Blood Count 02/25/20 * Complete Blood Count 03/24/20 * Fibronectin 01/14/20 Radiology* US OB Limited 05/14/20 [facility] Evaluation + Plan note Future Appointments Appointment Date:04/13/2021 10:00:00 AM Scheduled Provider:APURVA SINGH MD Location:[facility] Appointment Type:[facility] Annual Exam Future Scheduled Tests Laboratory* Glucose 1 Hour Challenge 04/14/20 * Glucose 1 Hour Challenge 03/17/20 * Glucose 1 Hour Challenge 02/25/20 * Glucose 1 Hour Challenge 03/24/20 * Glucose 1 Hour Challenge 02/14/20 * Urine Culture 08/14/20 * Complete Blood Count 03/17/20 * Complete Blood Count 02/25/20 * Complete Blood Count 03/24/20 Radiology* US OB Limited 05/14/20 [facility] Evaluation + Plan note Future Appointments Appointment Date:04/13/2021 10:00:00 AM Scheduled Provider:APURVA SINGH MD Location:[facility] Appointment Type:[facility] Annual Exam Future Scheduled Tests Laboratory* hCG, quantitative(AO) 02/16/21 * Glucose 1 Hour Challenge 04/14/20 * Glucose 1 Hour Challenge 03/17/20 * Glucose 1 Hour Challenge 02/25/20 * Glucose 1 Hour Challenge 03/24/20 * Glucose 1 Hour Challenge 02/14/20 * Urine Culture 08/14/20 * Complete Blood Count 03/17/20 * Complete Blood Count 02/25/20 * Complete Blood Count 03/24/20 Radiology* US OB Limited 05/14/20 [facility] Evaluation + Plan note Future Appointments Appointment Date:04/13/2021 10:00:00 AM Scheduled Provider:APURVA SINGH MD Location:[facility] Appointment Type:[facility] Annual Exam Future Scheduled Tests Laboratory* hCG, quantitative(AO) 02/16/21 * Glucose 1 Hour Challenge 04/14/20 * Glucose 1 Hour Challenge 03/17/20 * Glucose 1 Hour Challenge 02/25/20 * Glucose 1 Hour Challenge 03/24/20 * Urine Culture 08/14/20 * Complete Blood Count 03/17/20 * Complete Blood Count 02/25/20 * Complete Blood Count 03/24/20 Radiology* US OB Limited 05/14/20 [facility] Evaluation + Plan note Future Appointments Appointment Date:04/13/2021 10:00:00 AM Scheduled Provider:APURVA SINHG MD Location:[facility] Appointment Type: OV Annual Exam Appointment Date:04/13/2021 04:00:00 PM Scheduled Provider: Location:[facility] Appointment Type:US OB < 14 weeks Future Scheduled Tests Laboratory* hCG, quantitative(AO) 03/23/21 * hCG, quantitative(AO) 03/29/21 * hCG, quantitative(AO) 02/16/21 * Glucose 1 Hour Challenge 04/14/20 * Urine Culture 08/14/20 Radiology* US OB < 14 weeks 04/13/21 * US OB Limited 05/14/20 [facility] Evaluation + Plan note Future Appointments Appointment Date:04/20/2021 11:15:00 AM Scheduled Provider:APURVA SINGH MD Location:[facility] Appointment Type:[facility] Annual Exam Future Scheduled Tests Laboratory* hCG, quantitative(AO) 03/23/21 * hCG, quantitative(AO) 03/29/21 * hCG, quantitative(AO) 02/16/21 * Glucose 1 Hour Challenge 04/14/20 * Urine Culture 08/14/20 Radiology* US OB Limited 05/14/20 [facility] Evaluation + Plan note Future Appointments Appointment Date:05/04/2021 10:00:00 AM Scheduled Provider:APURVA SINGH MD Location:[facility] Appointment Type:[facility] OB Routine Follow Up Diagnostic Tests Pending * Panel (AO) 05/01/21 Future Scheduled Tests Laboratory* hCG, quantitative(AO) 03/23/21 * hCG, quantitative(AO) 03/29/21 * hCG, quantitative(AO) 02/16/21 * Panel (AO) 04/20/21 * Urine Culture 08/14/20 Radiology* US OB Limited 05/14/20 [facility] Evaluation + Plan note Future Appointments Appointment Date:05/25/2021 10:00:00 AM Scheduled Provider:APURVA SINGH MD Location:[facility] Appointment Type: OV OB Routine Follow Up Future Scheduled Tests Laboratory* hCG, quantitative(AO) 03/23/21 * hCG, quantitative(AO) 03/29/21 * hCG, quantitative(AO) 02/16/21 * Panel (AO) 04/20/21 * Urine Culture 08/14/20 Radiology* US OB Limited 05/14/20 [facility] Evaluation + Plan note Future Appointments Appointment Date:06/22/2021 09:30:00 AM Scheduled Provider:APURVA SINGH MD Location:[facility] Appointment Type: OV OB Routine Follow Up Future Scheduled Tests Laboratory* hCG, quantitative(AO) 03/23/21 * hCG, quantitative(AO) 03/29/21 * hCG, quantitative(AO) 02/16/21 * Panel (AO) 04/20/21 * Urine Culture 08/14/20 [facility] Evaluation + Plan note Future Appointments Appointment Date:07/20/2021 10:00:00 AM Scheduled Provider: Location:[facility] Appointment Type:US OB Limited Appointment Date:07/20/2021 11:00:00 AM Scheduled Provider:BERONICA FLOYD MD Location:[facility] Appointment Type: OV OB Routine Follow Up Future Scheduled Tests Laboratory* hCG, quantitative(AO) 03/23/21 * hCG, quantitative(AO) 03/29/21 * hCG, quantitative(AO) 02/16/21 * Panel (AO) 04/20/21 * Urine Culture 08/14/20 Radiology* US OB Limited 07/20/21 [facility] Evaluation + Plan note Future Appointments Appointment Date:08/20/2021 11:45:00 AM Scheduled Provider:APURVA SINGH MD Location:[facility] Appointment Type: OV OB Routine Follow Up Future Scheduled Tests Laboratory* hCG, quantitative(AO) 03/23/21 * hCG, quantitative(AO) 03/29/21 * hCG, quantitative(AO) 02/16/21 * Panel (AO) 04/20/21 * Urine Culture 08/14/20 [facility] Evaluation + Plan note Future Appointments Appointment Date:09/17/2021 08:30:00 AM Scheduled Provider:APURVA SINGH MD Location:[facility] Appointment Type: OV OB Routine Follow Up Future Scheduled Tests Laboratory* hCG, quantitative(AO) 03/23/21 * hCG, quantitative(AO) 03/29/21 * hCG, quantitative(AO) 02/16/21 * Panel (AO) 04/20/21 * Glucose 1 Hour Challenge 08/20/21 * Rapid Plasma Reagin Test 08/20/21 * Complete Blood Count 08/20/21 [facility] Evaluation + Plan note Future Appointments Appointment Date:09/03/2021 09:00:00 AM Scheduled Provider:APURVA SINGH MD Location:[facility] Appointment Type: OV OB Routine Follow Up Future Scheduled Tests Laboratory* hCG, quantitative(AO) 03/23/21 * hCG, quantitative(AO) 03/29/21 * hCG, quantitative(AO) 02/16/21 * Panel (AO) 04/20/21 * Glucose 1 Hour Challenge 08/20/21 * Rapid Plasma Reagin Test 08/20/21 * Uric Acid 08/27/21 * Complete Blood Count 08/20/21 * Creatinine, 24 Hour Urine 08/27/21 * Protein 24 Hour Urine 08/27/21 [facility] Evaluation + Plan note Future Appointments Appointment Date:09/03/2021 09:00:00 AM Scheduled Provider:APURVA SINGH MD Location:[facility] Appointment Type: OV OB Routine Follow Up Future Scheduled Tests Laboratory* hCG, quantitative(AO) 03/23/21 * hCG, quantitative(AO) 03/29/21 * hCG, quantitative(AO) 02/16/21 * Panel (AO) 04/20/21 * Glucose 1 Hour Challenge 08/20/21 * Rapid Plasma Reagin Test 08/20/21 * Uric Acid 08/27/21 * Complete Blood Count 08/20/21 [facility] Evaluation + Plan note Future Appointments Appointment Date:09/24/2021 10:45:00 AM Scheduled Provider:APURVA SINGH MD Location:[facility] Appointment Type:[facility] OB Routine Follow Up Future Scheduled Tests [...] * 24 Hr Urine Creatinine (AO) 09/03/21 [facility] Evaluation + Plan note Future Appointments Appointment Date:09/24/2021 10:45:00 AM Scheduled Provider:APURVA SINGH MD Location:[facility] Appointment Type:[facility] OB Routine Follow Up Diagnostic Tests Pending [...] * 24 Hr Urine Creatinine (AO) 09/03/21 [facility] Evaluation + Plan note Future Appointments Appointment Date:10/08/2021 09:15:00 AM Scheduled Provider:APURVA SINGH MD Location:[facility] Appointment Type:[facility] OB Routine Follow Up Future Scheduled Tests Laboratory* hCG, quantitative(AO) 03/23/21 * hCG, quantitative(AO) 03/29/21 * hCG, quantitative(AO) 02/16/21 * Panel (AO) 04/20/21 * Glucose 1 Hour Challenge 08/20/21 * Rapid Plasma Reagin Test 08/20/21 * Uric Acid 08/27/21 * 24 Hr Urine Total Protein (AO) 09/17/21 * Complete Blood Count 08/20/21 * 24 Hr Urine Creatinine (AO) 09/03/21 [facility] Evaluation + Plan note Future Appointments Appointment Date:10/22/2021 09:45:00 AM Scheduled Provider:APURVA SINGH MD Location:[facility] Appointment Type:[facility] OB Routine Follow Up Future Scheduled Tests Laboratory* hCG, quantitative(AO) 03/23/21 * hCG, quantitative(AO) 03/29/21 * hCG, quantitative(AO) 02/16/21 * Panel (AO) 04/20/21 * Glucose 1 Hour Challenge 08/20/21 * Rapid Plasma Reagin Test 08/20/21 * Uric Acid 08/27/21 * 24 Hr Urine Total Protein (AO) 09/17/21 * Complete Blood Count 08/20/21 * 24 Hr Urine Creatinine (AO) 09/03/21 [facility] Evaluation + Plan note Future Appointments Appointment Date:11/09/2021 09:00:00 AM Scheduled Provider:APURVA SINGH MD Location:[facility] Appointment Type:[facility] OB Routine Follow Up Future Scheduled Tests Laboratory* hCG, quantitative(AO) 03/23/21 * hCG, quantitative(AO) 03/29/21 * hCG, quantitative(AO) 02/16/21 * Panel (AO) 04/20/21 * Glucose 1 Hour Challenge 08/20/21 * Rapid Plasma Reagin Test 08/20/21 * Uric Acid 08/27/21 * 24 Hr Urine Total Protein (AO) 09/17/21 * Complete Blood Count 08/20/21 * 24 Hr Urine Creatinine (AO) 09/03/21 [facility] Evaluation + Plan note Future Appointments Appointment Date:03/18/2022 10:30:00 AM Scheduled Provider:APURVA SINGH MD Location:[facility] Appointment Type:[facility] Future Scheduled Tests Laboratory* Pathology Nuclear Physics Teacher Request 02/18/22 * hCG, quantitative(AO) 03/23/21 * hCG, quantitative(AO) 03/29/21 * Panel (AO) 04/20/21 * Glucose 1 Hour Challenge 08/20/21 * Rapid Plasma Reagin Test 08/20/21 * Uric Acid 08/27/21 * 24 Hr Urine Total Protein (AO) 09/17/21 * Complete Blood Count 08/20/21 * 24 Hr Urine Creatinine (AO) 09/03/21 [facility] Evaluation + Plan note Future Appointments Appointment Date:05/31/2022 10:00:00 AM Scheduled Provider:APURVA SINGH MD Location:[facility] Appointment Type:[facility] Future Scheduled Tests Laboratory* Pathology Nuclear Physics Teacher Request 02/18/22 * Panel (AO) 04/20/21 * Glucose 1 Hour Challenge 08/20/21 * Rapid Plasma Reagin Test 08/20/21 * Uric Acid 08/27/21 * 24 Hr Urine Total Protein (AO) 09/17/21 * Complete Blood Count 08/20/21 * hCG, quantitative (AH) 04/15/22 * hCG, quantitative (AH) 04/18/22 * hCG, quantitative (AH) 04/21/22 * 24 Hr Urine Creatinine (AO) 09/03/21 [facility] Evaluation + Plan note Future Appointments Appointment Date:05/31/2022 10:00:00 AM Scheduled Provider:APURVA SINGH MD Location:[facility] Appointment Type:[facility] Future Scheduled Tests Laboratory* Pathology Nuclear Physics Teacher Request 02/18/22 * Glucose 1 Hour Challenge 08/20/21 * Rapid Plasma Reagin Test 08/20/21 * Uric Acid 08/27/21 * 24 Hr Urine Total Protein (AO) 09/17/21 * Complete Blood Count 08/20/21 * hCG, quantitative (AH) 04/15/22 * hCG, quantitative (AH) 04/18/22 * hCG, quantitative (AH) 04/21/22 * hCG, quantitative (AH) 04/26/22 * 24 Hr Urine Creatinine (AO) 09/03/21 [facility] Evaluation + Plan note Future Appointments Appointment Date:09/09/2022 10:45:00 AM Scheduled Provider:APURVA SINGH MD Location:[facility] Appointment Type:[facility] OB Routine Follow Up Future Scheduled Tests [...] IgG 08/26/22 * Varicella Zoster Antibody 08/26/22 [facility] Evaluation + Plan note Future Appointments Appointment Date:11/04/2022 10:00:00 AM Scheduled Provider:APURVA SINGH MD Location:[facility] Appointment Type:[facility] OB Routine Follow Up Diagnostic Tests Pending [...] Antibody 08/26/22 Radiology* US OB Limited 10/07/22 [facility] Evaluation + Plan note Future Appointments Appointment Date:11/01/2022 11:00:00 AM Scheduled Provider:APURVA SINGH MD Location:[facility] Appointment Type: OV OB Routine Follow Up Appointment Date:11/04/2022 10:00:00 AM Scheduled Provider:KIKI HIGHTOWER Location:[facility] Appointment Type:[facility] OB Routine Follow Up Future Scheduled Tests [...] Antibody 08/26/22 Radiology* US OB Limited 10/25/22 [facility] Evaluation + Plan note Future Appointments Appointment Date:11/22/2022 10:45:00 AM Scheduled Provider:APURVA SINGH MD Location:[facility] Appointment Type:[facility] OB Routine Follow Up Diagnostic Tests Pending [...] Antibody 08/26/22 Radiology* US OB Limited 10/25/22 [facility] Evaluation + Plan note Future Appointments Appointment Date:11/22/2022 10:45:00 AM Scheduled Provider:APURVA SINGH MD Location:[facility] Appointment Type: OV OB Routine Follow Up [...] Antibody 08/26/22 Radiology* US OB Limited 10/25/22 [facility] Evaluation + Plan note Future Appointments Appointment Date:12/06/2022 09:30:00 AM Scheduled Provider:APURVA SINGH MD Location:[facility] Appointment Type: OV OB Routine Follow Up [...] Antibody 08/26/22 Radiology* US OB Limited 10/25/22 [facility] Evaluation + Plan note Future Appointments Appointment Date:12/20/2022 10:15:00 AM Scheduled Provider:APURVA SINGH MD Location:[facility] Appointment Type: OV OB Routine Follow Up [...] Zoster Antibody 08/26/22 Radiology* OB Limited 10/25/22 [facility] Evaluation + Plan note Future Appointments Appointment Date:12/30/2022 08:45:00 AM Scheduled Provider:APURVA SINGH MD Location:[facility] Appointment Type:[facility] OB Routine Follow Up Appointment Date:01/03/2023 08:30:00 AM Scheduled Provider:APURVA SINGH MD Location:[facility] Appointment Type:[facility] Future Scheduled Tests Laboratory* hCG, quantitative(AO) 07/04/22 [...] Zoster Antibody 08/26/22 Radiology* OB Limited 10/25/22 [facility] Evaluation + Plan note Future Appointments Appointment Date:01/10/2023 08:30:00 AM Scheduled Provider:APURVA SINGH MD Location:[facility] Appointment Type:[facility] OB Routine Follow Up Diagnostic Tests Pending [...] Antibody 08/26/22 Radiology* US OB Limited 10/25/22 [facility] Evaluation + Plan note Future Appointments Appointment Date:01/10/2023 08:30:00 AM Scheduled Provider:APURVA SINGH MD Location:[facility] Appointment Type:[facility] OB Routine Follow Up Future Scheduled Tests [...] Antibody 08/26/22 Radiology* US OB Limited 10/25/22 [facility] Evaluation + Plan note Future Appointments Appointment Date:09/29/2023 10:00:00 AM Scheduled Provider: Location:[facility] Appointment Type:US OB Limited Appointment Date:10/06/2023 09:30:00 AM Scheduled Provider:APURVA SINGH MD Location:[facility] Appointment Type:[facility] OB Routine Follow Up Future Scheduled Tests [...] OB Limited 10/25/22 * OB Limited 09/29/23 [facility] Evaluation + Plan note Future Appointments Appointment Date:09/29/2023 10:00:00 AM Scheduled Provider: Location:[facility] Appointment Type:US OB Limited Appointment Date:10/06/2023 09:30:00 AM Scheduled Provider:APURVA SINGH MD Location:[facility] Appointment Type:[facility] OB Routine Follow Up Diagnostic Tests Pending * Rapid Plasma Reagin Test 09/23/23 * Rubella Antibody 09/23/23 * Varicella Zoster Antibody 09/23/23 Future Scheduled Tests Laboratory* .Glucose 1 Hour 01/08/23 * .Glucose 2 Hour 01/08/23 * .Glucose 3 Hour 01/08/23 * Urine Culture 12/30/22 * Urine Culture 09/08/23 Radiology* OB Limited 10/25/22 * OB Limited 09/29/23 [facility] Evaluation + Plan note Future Appointments Appointment Date:10/06/2023 09:30:00 AM Scheduled Provider:APURVA SINGH MD Location:[facility] Appointment Type:[facility] OB Routine Follow Up Future Scheduled Tests Laboratory* .Glucose 1 Hour 01/08/23 * .Glucose 2 Hour 01/08/23 * .Glucose 3 Hour 01/08/23 * Urine Culture 12/30/22 * Urine Culture 09/08/23 Radiology* OB Limited 10/25/22 [facility] Evaluation + Plan note Future Appointments Appointment Date:11/24/2023 08:45:00 AM Scheduled Provider:APURVA SINGH MD Location:[facility] Appointment Type: OV OB Routine Follow Up [...] Culture 09/08/23 * Complete Blood Count 11/03/23 [facility] Evaluation + Plan note Future Appointments Appointment Date:11/24/2023 08:45:00 AM Scheduled Provider:APURVA SINGH MD Location:[facility] Appointment Type:[facility] OB Routine Follow Up Future Scheduled Tests Laboratory* .Glucose 1 Hour 01/08/23 * .Glucose 1 Hour 11/03/23 * .Glucose 2 Hour 01/08/23 * .Glucose 2 Hour 11/03/23 * .Glucose 3 Hour 01/08/23 * .Glucose 3 Hour 11/03/23 * Glucose 1 Hour Challenge 11/03/23 * Rapid Plasma Reagin Test 11/03/23 * Urine Culture 12/30/22 * Urine Culture 09/08/23 * Complete Blood Count 11/03/23 [facility] Evaluation + Plan note Future Appointments Appointment Date:12/05/2023 10:15:00 AM Scheduled Provider:APURVA SINGH MD Location:[facility] Appointment Type:[facility] OB Routine Follow Up Future Scheduled Tests [...] Count 11/21/23 * Complete Blood Count 11/03/23 [facility] Evaluation noteNo assessment information available [facility] Work Phone: Evaluation note* Diagnosis Lower abdominal pain- Primary Abdominal pain, other specified site Vaginal bleeding in , third trimester documented in this encounter [facility] note* Diagnosis Genetic testing Other investigation and testing for procreative management documented in this encounter [facility] note* Diagnosis Onset Date Resolution Status Blurry vision acute Vaginal bleeding during , antepartum acute [facility] Work Phone: Evaluation note* Diagnosis Onset Date Resolution Status Blurry vision acute Vaginal bleeding during , antepartum acute Dizziness, nonspecific acute [facility] Work Phone: Evaluation note* Diagnosis Chest congestion- Primary Other symptoms involving respiratory system and chest Acute cough documented in this encounter [facility] note* Diagnosis Acute cough- Primary Influenza-like illness Influenza with other respiratory manifestations Acute cough documented in this encounter [facility] note* Diagnosis Acute cough documented in this encounter [facility] note* Diagnosis Pain- Primary Generalized pain Pain Generalized pain documented in this encounter [facility] note* Diagnosis Pain Generalized pain documented in this encounter [facility] note* Diagnosis Foot pain, left- Primary Pain in limb Acute left ankle pain Foot pain, left Pain in limb Acute left ankle pain documented in this encounter [facility] note* Diagnosis Foot pain, left Pain in limb Acute left ankle pain documented in this encounter [facility] note* Diagnosis Foot pain, left- Primary Pain in limb [facility] Author Topher Hancock [facility] December 02, 2022 8:37am Note Date/Time December 02, 2022 8 :37am [facility] Medical Records Department [address] [place] [address] OB Triage Physician Note 12/02/22 0834 MR#: [id number] Acct: [id number] Name: LESTER INFANTE Rep #:[id number] : 2000 22 From: Topher Hancock MD PCP: Care Physician,No Primary Status :REG CLI Y [facility] HPI - General General Date of Service: 12/02/22 HPI Narrative LESTER INFANTE, is a 22 F who presents with dizziness at times. Per RN she wasseen yesterday for this and no change. Maternal Data Information Final YOANDY: 03/13/23 Gestational age: 25&4 weeks [facility] Medical History Anxiety and depression delivery delivered History of kidney stones History of migraine History of pre-eclampsia Home Medications vitamin with calcium no.72-iron 27 mg-folic acid 1 mg tablet ( Vitamins Plus Low Iron) 1 tab PO DAILY 04/14/21 [History Last Taken 12/01/22 08:00 1 TAB] Allergy/AdvReac Type Severity Reaction Status Date / Time No Known Allergies Allergy Verified 12/02/22 08:18 Family History Grandfather Hypertension Grandmother Diabetes CVA (cerebral vascular accident) Hypertension Lupus Grandfather Diabetes Myocardial infarction CAD (coronary artery disease) Hypertension Surgical History History of Social History Smoking Status: Never smoker History Elective abortions Hx Para 0 Spontaneous abortions Hx # Term Pregnancies Ectopic pregnancies Hx # Pregnancies Multiple births # of living children NST FHR Rate Baby A Baseline: 135 Variability:: Moderate Accelerations:: None Decelerations:: None NST Reactive:: Appropriate for gestational age Uterine Activity:: rare ctx Assessment & Plan (1) Dizziness, nonspecific: PLAN: Plan Reassuring NST 12/02/22 0837 <Electronically signed by Topher Hancock MD> Date _ Topher Hancock MD Cosigner Signature (if applicable): Date CC: Dr. Topher Hancock MD; No Primary Care Physician ~ Signed [facility] Work Phone: Hospital course Narrative No data available for this section [facility] Hospital Discharge instructions No data available for this section [facility] Hospital Discharge instructions Additional Instructions call and follow up with your doctor.[facility] Work Phone: Note* FRANNY ABURTO MD: SIGN, VERIFY Event Display: VL Venous [facility] No data available for this section [facility] Reason for visit Narrative* Diagnostic Procedure Only (Urgent) - Closed Specialty Diagnoses / Procedures Referred By Contac t Referred To Contact XR IMAGING Diagnoses Pain Procedures XR FOOT GENERAL 3V AP/LAT/OBL LEFT RADEX FOOT COMPLETE MINIMUM 3 VIEWS Naye Hancock APRN.[employer] [address] [place] [address] Phone: tel: fax: [place] [phone] Referral ID Status Reason Start Date Expiration Date V isits Requested Visits Authorized [id number] Closed Auto-Generate d Referral 04/19/2024 05/19/2025 [facility] Diagnostic Procedure Only (Urgent) - Closed Specialty Diagnoses / Procedures Referred By Contac t Referred To Contact XR IMAGING Diagnoses Foot pain, left Acute left ankle pain Procedures XR FOOT GENERAL 3V AP/LAT/OBL LEFT RADEX FOOT COMPLETE MINIMUM 3 VIEWS Yasmin Sue PA [address] [place] [address] Phone: tel: fax: [place] [address] Referral ID Status Reason Start Date Expiration Date V isits Requested Visits Authorized [id number] Closed Auto-Generate d Referral 05/14/2024 06/13/2025 1 1 [facility] Chief Complaint and Reason for Visit Chief Complaint HIP PAIN RIGHT HIP PAIN heart racing 48 H[employer]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 Chief Complaint FLANK Chief Complaint FLANK ABD PAIN Chief Complaint BLEEDING BLEEDING Reason for Visit Blurry vision Vaginal bleeding during , antepartum Chief Complaint BLEEDING BLEEDING R/O LABOR Reason for Visit Blurry vision Vaginal bleeding during , antepartum Dizziness, nonspecific Chief Complaint BLEEDING BLEEDING R/O LABOR R/O PRE-E Reason for Visit Blurry vision Vaginal bleeding during , antepartum Dizziness, nonspecific Advance Directives No Advanced Directives Records Found Advance Directive Response Recorded Date/ Time Advance Directives No March 9:07pm Living Will No June 03, 2021 7:29pm Power of Assistant Manager/Embalmer No June 03 7:29pm Advance Directive Response Recorded Date/ Time Advance Directives No March 8:07pm Living Will No June 03, 2021 6:29pm Power of Assistant Manager/Embalmer No June 03 6:29pm Advance Directive Response Recorded Date/ Time Advance Directives No March 9:07pm Living Will No April 26, 2022 6:06pm Power of Assistant Manager/Embalmer No April 26 6:06pm Advance Directive Response Recorded Date/ Time Advance Directives No March 8:07pm Living Will No April 26, 2022 5:06pm Power of Assistant Manager/Embalmer No April 26 5:06pm Family History No Family History Records Found Relationship Condition Age at Onset Recorded Date/T jasmine grandfather Hypertension Unknown grandmother Diabetes mellitus Unknown Cerebrovascular accident (CVA) Unknown Hypertension Unknown Lupus Unknown grandfather Diabetes mellitus Unknown Myocardial infarction Unknown Coronary artery disease Unknown Summary Purpose Additional Source Comments Goals (unrecognized section and content) Goals may be documented in a n alternate section Care Team (unrecognized sect ion and content) Care Team Personnel Name: PHYSICIAN, NONE Position: Physician Member Role: Primary Care Physician Name: ORDNEY Stephen Position: OB RN Member Role: RN Care Team Related Persons Name: RILEY RUIZ Address: Home [address] [place], [place] [phone] Name: AXEL RUIZ Address: Home [address] [place], [place] [id number] Name: ORTIZ RUIZ Address: Home [address] [place], [place] [phone] Name: REJI RUIZ Address: Home [address] [place], [place] [id number] Name: ALICIA RUIZ Address: Home [address] [place], [place] [phone] Name: JOSEPH HILARY Care Team Personnel Name: PHYSICIAN, NONE Position: Physician Member Role: Primary Care Physician Name: Citlali Castellon RN Position: OB RN Member Role: RN Name: RODNEY Saavedra Position: OB RN Member Role: RN Care Team Related Persons Name: RILEY RUIZ Address: Home [address] [place], [place] [phone] [place] Name: AXEL RUIZ Address: Home [address] [place], [place] [id number] Name: RUIZZABRINAN Dar Address: Home [address] [place], [place] [id number] Name: REJI RUIZ Address: Home [address] [place], [place] [id number] Name: JOSEPH HILARY Care Team Personnel Name: PHYSICIAN, NONE Position: Physician Member Role: Primary Care Physician Name: Kiki Bonilla RN Position: OB RN Member Role: RN Care Team Related Persons Name: RILEY RUIZ Address: Home [address] [place], [place] [id number] [place] Name: AXEL RUIZ Address: Home [address] [place], [place] [phone] Name: ORTIZ RUIZ Address: Home [address] [place], [place] [id number] Name: REJI RUIZ Address: Home [address] [place], [place] [id number] Name: RUIZ, HILARY Care Team Personnel Name: PHYSICIAN, NONE Position: Physician Member Role: Primary Care Physician Name: RODNEY Lane Position: OB RN Member Role: Nursing Name: Abimbola Puga RN Position: OB RN Member Role: RN Name: Gissel Crawford RN Position: OB RN Member Role: Nursing Name: RODNEY Saavedra Position: OB RN Member Role: RN Care Team Related Persons Name: RILEY RUIZ Address: Home [address] [place], [place] [id number] [place] Name: RUIZAXEL Address: Home [address] [place], [place] [id number] Name: ORTIZ RUIZ Address: Home [address] [place], [place] [id number] Name: JOSEPH REJI Cazares Address: Home [address] [place] [id number] Name: HILARY RUIZ Care Team Personnel Name: PHYSICIAN, NONE Position: Physician Member Role: Primary Care Physician Name: RODNEY Borges Position: OB RN Member Role: RN Name: Mine Romo RN Position: OB RN Member Role: RN Care Team Related Persons Name: RILEY RUIZ Address: Home [address] [place], [place] [id number] [place] Name: AXEL RUIZ Address: Home [address] [place], [place] [id number] Name: ORTIZ RUIZ Address: Home [address] [place], [place] [id number] Name: JOSEPH REJI Cazares Address: Home [address] [place], [place] [id number] Name: HILARY RUIZ Point Of Sale Associate Relationship Specialty Start Date End Date Abimbola Dewitt, DO [address] [place] [address] PCP - General 12/03/19 Beatriz Rodgers MD [place] [id number] Attending Physician Medical Clinical Genetics 10/06/22 Care Team Personnel Name: PHYSICIAN, NONE Position: Physician Member Role: Primary Care Physician Care Team Related Persons Name: RILEY RUIZ Address: Home [address] [place], [place] [id number] [place] Name: AXEL RUIZ Address: Home [address] [place], [place] [id number] Name: ZABRINA RUIZN Dar Address: Home [address] [place], [place] [id number] Name: JOSEPH REJI Cazares Address: Home [address] [place], [place] [phone] Name: HILARY RUIZ Team Status: Active Member Role Status Dates No Primary Care Physician Family Provider Active No Primary Care Physician Primary Care Provider Active Team Status: Inactive Member Role Status Dates No Primary Care Physician Primary Care Provider Active Ed Physician Provider Emergency Provider Active Point Of Sale Associate Relationship Specialty Start Date End Date Liz Thompson PCP - General Pediatrics 04/11/13 Personnel Name: PHYSICIAN, PATIENT UNSURE Care Team (unrecognized sect ion and content) Care Team Personnel Name: PHYSICIAN, PATIENT UNSURE Member Role: Primary Care Physician Care Team Related Persons Name: RILEY RUIZ Address: Home [address] [place], [place] [phone] [place] Name: JOSEPHAXEL Address: Home [address] [place], [place] [id number] Name: REJI RUIZ Address: Home [address] [place] [id number] Name: HILARY RUIZ Care Team Personnel Name: PHYSICIAN, PATIENT UNSURE Member Role: Primary Care Physician Care Team Related Persons Name: RILEY RUIZ Address: Home [address] [place], [place] [id number] [place] Name: JOSEPH AXEL Yeboah Address: Home [address] [place] [id number] Name: REJI RUIZ Address: Home [address] [place], [place] [id number] Name: HILARY RUIZ Care Team Personnel Name: PHYSICIAN, PATIENT UNSURE Member Role: Primary Care Physician Care Team Related Persons Name: RILEY RUIZ Address: Home [address] [place], [place] [id number] [place] Name: RUIZ AXEL Yeboah Address: Home [address] [place], [place] [address] Name: REJI RUIZ Address: Home [address] [place] [id number] Name: HILARY RUIZ Care Team Personnel Name: PHYSICIAN, PATIENT UNSURE Member Role: Primary Care Physician Care Team Related Persons Name: RILEY RUIZ Address: Home [address] [place], [place] [id number] [place] Name: AXEL RUIZ Edilia Address: Home [address] [place], [place] [id number] Name: REJI RUIZ Sage Address: Home [address] [place] [phone] Name: HILARY RUIZ Care Team Personnel Name: PHYSICIAN, PATIENT UNSURE Member Role: Primary Care Physician Care Team Related Persons Name: RILEY RUIZ Address: Home [address] [place], [place] [id number] [place] Name: JOSEPHMYMILAGROS Edilia Address: Home [address] [place], [place] [phone] Name: REJI RUIZ O Address: Home [address] [place], [place] [id number] Name: HILARY RUIZ Care Team Personnel Name: PHYSICIAN, PATIENT UNSURE Member Role: Primary Care Physician Care Team Related Persons Name: RILEY RUIZ F Address: Home [address] [place], [place] [phone] [place] Name: AXEL RUIZ Edilia Address: Home [address] [place], [place] [phone] Name: REJI RUIZ O Address: Home [address] [place], [place] [id number] Name: HILARY RUIZ Care Team Personnel Name: PHYSICIAN, PATIENT UNSURE Member Role: Primary Care Physician Care Team Related Persons Name: RILEY RUIZ Address: Home [address] [place], [place] [id number] [place] Name: AXEL RUIZ Edilia Address: Home [address] [place], [place] [phone] Name: REJI RUIZ O Address: Home [address] [place], [place] [id number] Name: HILARY RUIZ Care Team Personnel Name: PHYSICIAN, PATIENT UNSURE Member Role: Primary Care Physician Care Team Related Persons Name: RILEY RUIZ Address: Home [address] [place], [place] [id number] [place] Name: RUIZMYMILAGROS Edilia Address: Home [address] [place], [place] [id number] Name: REJI RUIZ O Address: Home [address] [place], [place] [id number] Name: HILARY RUIZ Care Team Personnel Name: PHYSICIAN, PATIENT UNSURE Member Role: Primary Care Physician Care Team Related Persons Name: RILEY RUIZ Address: Home [address] [place], [place] [phone] [place] Name: AXEL RUIZ Edilia Address: Home [address] [place], [place] [phone] Name: REJI RUIZ O Address: Home [address] [place], [place] [id number] Name: CELINA RUIZCH Care Team Personnel Name: PHYSICIAN, PATIENT UNSURE Member Role: Primary Care Physician Care Team Related Persons Name: JOSEPH RILEY F Address: Home [address] [place], [place] [phone] [place] Name: AXEL RUIZ Address: Home [address] [place], [place] [id number] Name: REJI RUIZ Address: Home [address] [place], [place] [phone] Name: HILARY RUIZ Care Team Personnel Name: PHYSICIAN, PATIENT UNSURE Member Role: Primary Care Physician Care Team Related Persons Name: RILEY RUIZ Anel Address: Home [address] [place], [place] [id number] [place] Name: AXEL RUIZ Address: Home [address] [place], [place] [id number] Name: ORTIZ RUIZ Address: Home [address] [place], [place] [id number] Name: REJI RUIZ Address: Home [address] [place], [place] [id number] Name: HILARY RUIZ Care Team Personnel Name: PHYSICIAN, PATIENT UNSURE Member Role: Primary Care Physician Care Team Related Persons Name: RILEY RUIZ Address: Home [address] [place], [place] [id number] [place] Name: AXEL RUIZ Address: Home [address] [place], [place] [id number] Name: ORTIZ RUIZ Address: [address] [place], [place] [phone] Name: REJI RUIZ Address: Home [address] [place], [place] [id number] Name: HILARY RUIZ Care Team Personnel Name: PHYSICIAN, NONE Position: Physician Member Role: Primary Care Physician Care Team Related Persons Name: RILEY RUIZ Address: Home [address] [place], [place] [id number] [place] Name: AXEL RUIZ Address: Home [address] [place], [place] [phone] Name: ORTIZ RUIZ Address: Home [address] [place], [place] [id number] Name: REJI RUIZ Address: Home [address] [place], [place] [phone] Name: HILARY RUIZ Care Team Personnel Name: PHYSICIAN, NONE Position: Physician Member Role: Primary Care Physician Care Team Related Persons Name: RILEY RUIZ Address: Home [address] [place], [place] [phone] [place] Name: AXEL RUIZ Address: Home [address] [place], [place] [id number] Name: ORTIZ RUIZ Address: Home [address] [place] [id number] Name: REJI RUIZ Address: Home [address] [place], [place] [id number] Name: RUIZ HILARY Care Team Personnel Name: PHYSICIAN, NONE Position: Physician Member Role: Primary Care Physician Care Team Related Persons Name: RILEY RUIZ Address: Home [address] [place], [place] [id number] [place] Name: AXEL RUIZ Address: [address] [place] [phone] Name: ORTIZ RUIZ Address: Home [address] [place] [id number] Name: REJI RUIZ Address: [place] [address] [place], [place] [phone] Name: JOSEPH HILARY Source Comments (unrecognize d section and content) In the event this informatio n is protected by the Federal Confidentiality of Alcohol and Drug Abuse Patient Records regulations: The Federal rules restrict any use of the information to criminally investigate or prosecute any alcohol or drug abuse patient.[facility] the event this information is protected by the Federal Confidentiality of Alcohol and Drug Abuse Patient Records regulations: The Federal rules restrict any use of the information to criminally investigate or prosecute any alcohol or drug abuse patient.[facility] the event this information is protected by the Federal Confidentiality of Alcohol and Drug Abuse Patient Records regulations: The Federal rules restrict any use of the information to criminally investigate or prosecute any alcohol or drug abuse patient.[facility] the event this information is protected by the Federal Confidentiality of Alcohol and Drug Abuse Patient Records regulations: The Federal rules restrict any use of the information to criminally investigate or prosecute any alcohol or drug abuse patient.[facility] the event this information is protected by the Federal Confidentiality of Alcohol and Drug Abuse Patient Records regulations: The Federal rules restrict any use of the information to criminally investigate or prosecute any alcohol or drug abuse patient.[facility] the event this information is protected by the Federal Confidentiality of Alcohol and Drug Abuse Patient Records regulations: The Federal rules restrict any use of the information to criminally investigate or prosecute any alcohol or drug abuse patient.[facility] the event this information is protected by the Federal Confidentiality of Alcohol and Drug Abuse Patient Records regulations: The Federal rules restrict any use of the information to criminally investigate or prosecute any alcohol or drug abuse patient.[facility] the event this information is protected by the Federal Confidentiality of Alcohol and Drug Abuse Patient Records regulations: The Federal rules restrict any use of the information to criminally investigate or prosecute any alcohol or drug abuse patient.[facility] the event this information is protected by the Federal Confidentiality of Alcohol and Drug Abuse Patient Records regulations: The Federal rules restrict any use of the information to criminally investigate or prosecute any alcohol or drug abuse patient.[facility] the event this information is protected by the Federal Confidentiality of Alcohol and Drug Abuse Patient Records regulations: The Federal rules restrict any use of the information to criminally investigate or prosecute any alcohol or drug abuse patient.[facility] Reason for Visit (unrecogniz ed section and content) Reason Comments Diarrhea Pt denied blood, muc us nausea, body aches pain rated 3, x3 days Follow Up Pt reported 28 wk pr egnancy, reported +FM Specialty Diagnoses / Procedures Referred By Contac t Referred To Contact Lab Diagnoses Genetic testing Procedures 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 [place] [address] Referral ID Status Reason Start Date Expiration Date Visits Re quested Visits Authorized [id number] Open 10/06/2022 10/06/2023 1 1 Reason Comments Cough Chest congestion x1 week Reason Comments Nasal Congestion drainage, cough, sob x 3 days Reason Comments Results Reason Comments Ankle Injury L ankle injury x1 da y Reason Comments left foot and ankle pain X 1 month-al d it again last night Reason Comments Ankle Injury left ankle and foot pain x 1 month, seen here 2 previous times INFORMATION SOURCE (unrecogn ized section and content) DATE CREATED AUTHOR 10/02/2023 [facility] ([place]) DATE CREATED AUTHOR AUTHOR'S ORGANIZ ATION 12/03/2023 [facility] DATE CREATED AUTHOR AUTHOR'S ORGANIZ ATION 01/11/2024 [facility] DATE CREATED AUTHOR AUTHOR'S ORGANIZ ATION 01/19/2024 [facility] DATE CREATED AUTHOR AUTHOR'S ORGANIZ ATION 03/22/2024 [facility] DATE CREATED AUTHOR AUTHOR'S ORGANIZ ATION 06/20/2024 [facility] FOR RECORDS PERTAINING TO PATIENTS WHO ARE [...] BE BASED ON THE PRIMARY CLINICAL RECORDS. [facility]. provides no warranty or guarantee of the accuracy or completeness of information in this document.
[2024-10-07 07:26] VITALS: BP 147/78; PULSE 72; RESP 18; TEMP 36.6; O2SAT 99
== END 2024-10-07 07:27 | disposition home or self-care (01) ==
PROVIDERS: Emergency Provider Emergency Medicine; Visit Provider Emergency Medicine
DX: S93.402A Sprain of unspecified ligament of left ankle, initial encounter (principal); X50.1XXA Overexertion from prolonged static or awkward postures, initial encounter; E66.9 Obesity, unspecified
CPT/HCPCS: 73610; 73630; 99283

== ENCOUNTER 2024-10-09 08:49 | Emergency (ER) | payer MEDICAID, SELFPAY ==
[2024-10-09 08:49] VITALS: BP 168/81; PULSE 104; RESP 20; TEMP 36.6; O2SAT 100
--- NOTE | 2024-10-09 08:54 | EDS_ITS ---
HPI History of Present Illness Chief Complaint: Cough [facility] Medical History (Updated 10/09/24 @ 11:[address] Bill Oh DO) Atrial tachycardia Urinary tract infection affecting Cholestasis during Heart palpitations Gestational diabetes Pre-eclampsia History of migraine History of kidney stones History of pre-eclampsia Anxiety and depression delivery delivered Home Medications ?Medication ?Instructions ?Recorded ?Last Taken ?Type NK 10/07/24 Unknown History albuterol sulfate 90 mcg/actuation 1 inh inhalation Q6 H PRN shortness 10/09/24 Unknown Rx breath activated powder inhaler of breath #1 ea prednisone 20 mg tablet 20 mg PO DAILY 5 days #5 TAB LETS 10/09/24 Unknown Rx Allergy/AdvReac Type Severity Reaction Status Date / Time No Known Allergies Allergy Verified 10/09/24 09:29 Family History Grandfather Hypertension Grandmother Diabetes CVA (cerebral vascular accident) Hypertension Lupus Grandfather Diabetes Myocardial infarction CAD (coronary artery disease) Hypertension Surgical History History of Social History Smoking Status: Never smoker EXAM Physical Exam Const Vital Signs: 10/09/24 08:49 10/09/24 09:20 10/09/24 09:29 Temperature 97.8 F Temperature Source Temporal Pulse Rate 104 H Respiratory Rate 20 H 16 Respiratory Effort Short of Breath Labored Respiratory Depth Deep Respiratory Pattern Normal Tachypnea Blood Pressure 168/81 H Blood Pressure Mean 110 Pulse Ox 100 Oxygen Delivery Method Room Air Room Air 10/09/24 11:17 Temperature Temperature Source Pulse Rate 104 H Respiratory Rate 16 Respiratory Effort Respiratory Depth Respiratory Pattern Blood Pressure 154/78 H Blood Pressure Mean 103 Pulse Ox 97 Oxygen Delivery Method Room Air MDM MDM MDM Narrative Medical decision making narrative: HISTORY OF PRESENT ILLNESS: Chief complaint: Cough 23-year-old female history of anxiety, depression, presents with cough. The patient states she has had 2 days of cough, congestion, feeling sick. No sick contacts. No hemoptysis, leg swelling, chest pain, history of blood clots. No shortness of breath when she exerts herself. Denies asthma or COPD. No smoking history. REVIEW OF SYSTEMS: Pertinent positives: Cough, dizziness with exertion Pertinent negatives: As per [facility] PHYSICAL EXAM: Nursing triage notes reviewed, Vital signs reviewed Constitutional: please see [facility] HENT: MMM Eyes: Pupils equal round and reactive to light, Extraocular muscles intact Neck: No stridor, no JVD, full neck ROM Lungs: slight end expiratory wheezes noted in bilateral lung masterson, no increased work of breathing, no conversational dyspnea, no accessory muscle use, no nasal flaring. No respiratory distress noted Heart: Regular rate and rhythm, No murmurs, No rubs and No gallops, 2+ distal pulses (radial, femoral, posterior tibial) in all extremities Abdomen: Soft, there is no tenderness, rigidity, rebound or guarding, no obvious peritoneal signs, no palpable pulsatile abdominal masses, no auscultated abdominal bruit : No CVAT Extremities: No edema Neuro: Alert and oriented x3, neuro exam at baseline, cranial nerves II through XII are intact. No pain with extraocular muscle movement. There is negative test of skew. 5 of 5 strength in upper and lower extremities in flexion extension. Intact sensation to light touch in upper and lower extremity dermatomes. No truncal or extremity ataxia. No dysdiadochokinesia. Normal gait. 2+ reflexes in upper and lower extremities. No meningeal signs. Negative Babinski. NIH of 0. Skin: No rash or lesions noted MEDICAL DECISION MAKING: Chief Complaint: please see [facility] External records reviewed: Reviewed prior imaging Factors affecting care as per [facility] Social determinants of health: none History obtained from others: none Consults: none [facility] Narrative: Patient was initially hemodynamically stable, afebrile and nontoxic-appearing. Exam with slight end expiratory wheezing I considered the following differential diagnosis: Pneumonia, viral illness, obstructive lung disease I obtained chest x-ray, viral swab to further determine if the patient was suffering from a life-threatening etiology. Initially treated with Tylenol ibuprofen and a breathing treatment. ALL IMAGES (IF OBTAINED) HAVE BEEN PERSONALLY REVIEWED AND INTERPRETED BY MYSELF. I have personally reviewed the patient's chest x-ray. Chest x-ray is unremarkable for pulmonary edema, pneumothorax, pneumonia or focal cardiopulmonary abnormality. On reevaluation patient's tachypnea improved. Lungs were less wheezy. Walking pulse ox showed acceptable 94% with exertion. Likely suffering from viral URI with some reactive airway disease. No clear indication for admission at this time no clear life-limiting etiology to be ascertained. The patient is appropriate discharge home. The patient and/or family, caregivers express understanding. The patient and/or family, caregivers agrees with the plan. Shared decision making: I will have a discussion with the patient and or visitors regarding risk/benefits of further testing or admission. They will be made aware of of the risk/benefits inherent in this decision they will be given the opportunity to voice understanding. Total critical care time today provided was at least 0 minutes. This excludes separately billable procedures. Critical care time (if documented) is secondary to the patient having high probability of clinically significant/life threatening deterioration in the patient's condition which required my urgent intervention. Impression: 1. Cough 2. Dyspnea Dispo: Discharge This note was generated with [employer] dictation software. It may contain incorrect words, spelling, and punctuation that were not noted in review of the chart prior to signing. Radiography Diagnostic Testing: Clinical Impression(s) from Imaging Studies Chest X-Ray 10/09/24 09:04 IMPRESSION: NEGATIVE CHEST Reading Location: [id number] Discharge Plan Triage Chief Complaint: Cough ED Provider: Bill Oh Dx/Rx/DC Orders Clinical Impression: Viral URI Instructions: ED URI, Viral, No Abx (Adult) Prescriptions: New albuterol sulfate 90 mcg/actuation aerosol powdr breath activated 1 inh inhalation Q6H PRN (Reason: shortness of breath) Qty: 1 0RF prednisone 20 mg tablet 20 mg PO DAILY 5 Days Qty: 5 0RF No Action NK Primary Care Provider: Care Physician,No Primary Referrals: Care Physician,No Primary [Primary Care Provider] - Activity Restrictions/Additional Instructions: Thank you for trusting us with your care today! Your x-ray did not show signs of pneumonia. I suspect you are suffering from reactive airway disease secondary to a viral respiratory tract infection. Is treated with breathing treatments and steroids. Please take Tylenol (2 pills, 650 mg), ibuprofen (2 pills, 400 mg) every 6 hours as needed for pain and fever control. Please return to the emergency department if your symptoms change or worsen. Please follow with your primary care physician for further outpatient evaluation and management. Print Language: Sierra Leonean Disposition Disposition: Home, Self Care
--- NOTE | 2024-10-09 09:04 | RAD_ITS ---
PROCEDURE: CHEST PA AND LATERAL 10/09/2024 REASON FOR EXAM: COUGH TECHNIQUE: CHEST PA AND LATERAL COMPARISON: None FINDINGS: Hardware: None Heart: The heart size is normal. Mediastinum: The mediastinal contour is unremarkable. Lungs: The lungs are clear. Bones: The bones are unremarkable. RAD/Chest PA and Lateral IMPRESSION: NEGATIVE CHEST Reading Location: [id number]
[2024-10-09 09:20] VITALS: RESP 16
[2024-10-09 09:27] VITALS: BMI 53.4
[2024-10-09 09:29] VITALS: O2SAT 99
[2024-10-09 11:17] VITALS: BP 154/78; PULSE 104; RESP 16; O2SAT 97; O2SAT 99
[2024-10-09 11:42] VITALS: BP 154/78; PULSE 104; RESP 16; TEMP 37; O2SAT 97
== END 2024-10-09 11:42 | disposition home or self-care (01) ==
PROVIDERS: Emergency Provider Emergency Medicine; Visit Provider Emergency Medicine
DX: J06.9 Acute upper respiratory infection, unspecified (principal); R29.700 NIHSS score 0; R05.9 Cough, unspecified; R06.00 Dyspnea, unspecified
CPT/HCPCS: 71046; 94640; 99282

== ENCOUNTER 2024-10-28 10:49 | Emergency (ER) | payer MEDICAID, SELFPAY ==
[2024-10-28 10:51] VITALS: BP 127/94; PULSE 114; RESP 16; TEMP 37.3; O2SAT 98; BMI 51.7
--- NOTE | 2024-10-28 11:27 | CT_ITS ---
PROCEDURE: ABDOMEN/PELVIS W IV CONT ONLY 10/28/2024 REASON FOR EXAM: RLQ PAIN Pelvic bleeding. TECHNIQUE: Procedure Code: [id number] Modality: CT Procedure: ABDOMEN/PELVIS W IV CONT ONLY Coronal and Sagittal reconstruction series were provided. CONTRAST: Not provided. One or more dose reduction techniques were used (e.g., Automated exposure control, adjustment of the mA and/or kV according to patient size, use of iterative reconstruction technique. RADIATION DOSE SUMMARY: CTDlvol: 24.1 mGy DLP: 1552.2 mGycm COMPARISON: July 2018 FINDINGS: Lung bases: Atelectasis left lung base. ABDOMEN Liver: Moderate fatty infiltration of the liver. No focal mass. Biliary system: Negative. Negative for intrahepatic or extrahepatic ductal dilatation. Gallbladder: Negative. Negative for cholecystitis. Spleen: Negative. Pancreas: Negative. Adrenals: Negative. Kidneys: Nonobstructing right kidney stone. Negative for renal mass or cysts. Bowel: Negative for small or large-bowel obstruction. Appendix: Negative Vasculature: Negative for atherosclerotic vascular calcifications of the abdominal aorta and its branches. Peritoneum / Retroperitoneum: Negative. PELVIS Lymph nodes: Negative for inguinal or iliac adenopathy. Bladder: Negative. Reproductive Organs: Heterogeneous uterus. No adnexal mass. Bones and Soft Tissues: Age appropriate appearance of the lumbar spine hips and pelvis. CT/Abdomen/Pelvis W IV Cont ONLY IMPRESSION: Fatty liver. Right nephrolithiasis. Negative for acute intra-abdominal or pelvic pathology. Reading Location: [id number]
--- NOTE | 2024-10-28 11:27 | EDS_ITS ---
HPI HPI - GI History of Present Illness Chief Complaint: Abd Pain Informant: patient Narrative Narrative: 23-year-old female presenting with right lower quadrant abdominal pain, vaginal bleeding, and left shoulder discomfort that all started similar timeframe yesterday and is worsened today. Vaginal bleeding is not heavy, but it is intermittent, and this is the wrong time for her cycle which is usually regular, this is coming about a week early; she has missed no cycles. She is A0 and had a tubal with her last . She states the bleeding started first yesterday before the pain. She denies any left-sided abdominal pain. She denies any pain into her back, at 1 point the pain in the right became severe and made her a little nauseated but other than that she has not been having nausea/vomiting or diarrhea or any other changes in bowel movements. She states she has had no urinary symptoms, and the vaginal bleeding is occurring at times when she is not urinating and seems clearly vaginal to her. Her left shoulder does not hurt more to move her arm around. It seems to get worse when her abdominal pain gets worse. [facility] Medical History Atrial tachycardia Urinary tract infection affecting Cholestasis during Heart palpitations Gestational diabetes Pre-eclampsia History of migraine History of kidney stones History of pre-eclampsia Anxiety and depression delivery delivered Home Medications ?Medication ?Instructions ?Recorded ?Last Taken ?Type NK 10/07/24 Unknown History Allergy/AdvReac Type Severity Reaction Status Date / Time No Known Allergies Allergy Verified 10/28/24 11:20 Family History Grandfather Hypertension Grandmother Diabetes CVA (cerebral vascular accident) Hypertension Lupus Grandfather Diabetes Myocardial infarction CAD (coronary artery disease) Hypertension Surgical History History of Social History Smoking Status: Never smoker ROS ROS ED Constitutional Constitutional ED: Denies chills or fever(s) Eyes Eyes: Denies change in vision or diplopia ENT ENT ED: Denies rhinorrhea or sore throat Cardiovascular Cardiovascular: Denies chest pain or palpitations Respiratory/Chest Respiratory/Chest: Denies cough or dyspnea Gastrointestinal Gastrointestinal: Reports abdominal pain; Denies diarrhea, nausea or vomiting Genitourinary Genitourinary ED: Denies dysuria, flank pain or hematuria Musculoskeletal Musculoskeletal: Reports other Details: left shoulder pain, see HPI ; Denies back pain or neck pain Integumentary Denies abscess or rash Neurologic Neurologic: Denies headache(s), paresthesias or weakness Psychiatric Psychiatric: Denies anxiety or suicidal thoughts EXAM Physical Exam Const Vital Signs: 10/28/24 10:51 10/28/24 12:50 10/28/24 14:00 Temperature 99.1 F Temperature Source Oral Pulse Rate 114 H 88 63 Respiratory Rate 16 16 16 Blood Pressure 127/94 H 111/43 L 144/44 H Blood Pressure Mean 105 65 77 Pulse Ox 98 96 100 Oxygen Delivery Method Room Air Room Air Room Air Positive well nourished, well developed and obese General Appearance ED: well developed and NAD Nutritional Appearance: obese HEENT Reports moist mucous membranes normocephalic and atraumatic Eyes PERRL and EOMs intact bilaterally Neck full ROM and supple Resp normal respiratory effort and clear to auscultation bilaterally Cardio regular rate, regular rhythm and no murmurs GI non-distended GI Narrative: Tender throughout right lower quadrant up to the right mid abdomen and down to the pelvis, but no subcostal right upper quadrant tenderness. No left-sided abdominal tenderness. No guarding or rebound but quite tender in the right lower quadrant. Auscultation: normoactive bowel sounds Palpation: soft Back/Spine no CVA tenderness General Back: other FROM Extremity normal to inspection Extremity Narrative: Full range of motion of all 4 extremities including left shoulder without significant discomfort or limitation/pain. General Extremety ED: Negative for edema, pulses abnormal or tenderness General Extremity: Negative for edema or pulses abnormal Neuro oriented x3, CN's II-XII intact bilaterally and no sensory deficits noted Sensorium / Orientation: awake and alert Motor Exam: strength 5/5 throughout Skin no rashes or lesions noted and no wounds MDM MDM MDM Narrative Medical decision making narrative: Patient symptoms essentially right lower quadrant pain, vaginal bleeding, and left shoulder pain, which do not directly fit together for an obvious diagnosis. With the vaginal bleeding starting similar time of the abdominal pain, my thought is that this is more likely to be [employer]-related such as hemorrhagic cyst, torsion, ectopic, TOA. However with possible Kehr sign, albeit atypical, other intra-abdominal processes are certainly considered such as appendicitis, kidney stone which she has had in the past, less likely to be a splenic issues and she has no left upper quadrant pain or tenderness even with deep inspiration subcostal palpation. CT was more readily available to after her came back negative ruling out ectopic, and labs noted to be normal, she was in for CT of the abdomen/pelvis with IV contrast. I reviewed the images and report which I agree with, it is essentially negative for anything acute. Urinalysis came back showing blood only which is likely contaminant from her vaginal bleeding according to the patient who provided it. At this time, we obtained a transvaginal ultrasound, patient was given Toradol which did help some and she is comfortable; she was offered morphine but declined because she is driving home. This time of the report is checked out to the next emergency physician at shift change, disposition based on ultrasound report. Lab Data Attestation: I reviewed the patient's lab results. Labs: Laboratory Results - last 24 hr 10/28/24 10/28/24 10/28/24 11:06 11:23 11:37 WBC 7.1 RBC 5.44 H Hgb 13.3 Hct 41.3 MCV 75.9 L MCH 24.4 L MCHC 32.2 RDW Std Deviation 37.7 RDW Coeff of Teddy 14.1 Plt Count 215 MPV 11.7 Immature Gran % (Auto) 0.300 Neut % (Auto) 73.2 H Lymph % (Auto) 18.6 L [place] % (Auto) 7.5 Eos % (Auto) 0.0 Baso % (Auto) 0.4 Absolute Neuts (auto) 5.2 Absolute Lymphs (auto) 1.32 Nucleated RBC % 0 Sodium 136 Potassium 3.8 Chloride 106 Carbon Dioxide 17.2 L Anion Gap 13 BUN 10 Creatinine 0.90 Estim Creat Clear Calc 129.50 Est GFR (MDRD) Non-Af 93 BUN/Creatinine Ratio 11.5 Glucose 97 Calcium 9.1 Total Bilirubin 0.36 AST 38 H ALT 35 Alkaline Phosphatase 122 H Total Protein 8.3 Albumin 4.2 Globulin 4.2 Albumin/Globulin Ratio 1.0 Serum , Qual NEGATIVE Urine Color Red Urine Clarity Cloudy Urine pH 6.0 Ur Specific [place] 1.015 Urine Protein 100 H Urine Glucose (UA) Normal Urine Ketones 5 H Urine Occult Blood 250 H Urine Nitrite Negative Urine Bilirubin Negative Urine Urobilinogen Normal Ur Leukocyte Esterase 100 H Urine RBC > 100 SEEN Urine WBC 0 SEEN Ur Squamous Epith Cells 0 SEEN Urine Bacteria 0 SEEN Urine Mucus 0 SEEN Radiography Diagnostic Testing: Clinical Impression(s) from Imaging Studies Abdomen/Pelvis CT 10/28/24 11:27 IMPRESSION: Fatty liver. Right nephrolithiasis. Negative for acute intra-abdominal or pelvic pathology. Reading Location: [id number] Discharge Plan Triage Chief Complaint: Abd Pain Other Complaint: Upper Extremity Injury Vag Bleeding ED Provider: Trey Freitas Dx/Rx/DC Orders Clinical Impression: Pelvic pain in female, DUB (dysfunctional uterine bleeding) Prescriptions: No Action NK Primary Care Provider: Care Physician,No Primary Referrals: Care Physician,No Primary [Primary Care Provider] - Print Language: Croatian
[2024-10-28 11:34] LABS: Mucous, Urine 0 SEEN /hpf (<or=2+); Squamous Epithelial Cells - UA 0 SEEN /hpf (5-10)
[2024-10-28 11:35] LABS: Hematocrit 41.3 % (37-47); Hemoglobin 13.3 g/dL (12.0-15.0); Immature Granulocytes Count 0.020 X10^3/uL (0.0-0.0); Mean Corp Hgb Conc 32.2 g/dL (32-36); Mean Corpuscular Volume 75.9 fL (81-99); Mean Platelet Vol. 11.7 fl (6.2-12.0); NRBC Flagged by Analyzer 0 % (0-5); Platelet Count 215 K/mm3 (150-450); RBC Distribution Width CV 14.1 % (11.6-14.6); RBC Distribution Width SD 37.7 fl (35.1-43.9); Red Blood Count 5.44 M/mm3 (4.2-5.4); White Blood Count 7.1 K/mm3 (4.4-11.0)
[2024-10-28 11:37] LABS: Color, Urine Red (Yellow); Glucose, Dipstick Normal (Normal); Ketone-Dipstick 5 mg/dl (Negative); Leukocyte Esterase-Dipstick 100 /ul (Negative); Nitrite-Dipstick Negative (Negative); Occult Blood-Urine 250 /ul (Negative); Protein-Dipstick 100 mg/dl (Negative); Specific Gravity, Urine 1.015 (1.002-1.030); Urine Bilirubin Dipstick Negative (Negative)
--- OUTSIDE RECORDS SUMMARY | 2024-10-28 11:37 | XMS RPT_ITS | CCD ---
Author Organization [facility] Care Team Providers Care Corn Miller Name Role Phone PHYSICIAN, PATIENT UNSURE Primary Care Physician Unavailable Liz Thompson Primary Care Provid er PHYSICIAN, NONE Primary Care Physician Unavailab Abimbola Hodges DO Primary Care Provider [phone] Beatriz Rodgers MD Unavailable [phone] Care Physician, No Primary Primary Care Provider Unavailable Dr. Karina Lujan Attending Provider [phone] Dr. Karina Lujan Referring Provider [phone] Dr. Karina Lujan Other Provider Care Physician, No Primary Primary Care Provider Unavailable Dr. Karina Lujan Attending Provider Dr. Karina Lujan Referring Provider [phone] Dr. Karina Lujan Other Provider Unavailable Primary [...] Unavailable PATTI DUPREE, DR CLARENCE Green Attending [place] [facility] PHYSICIAN, NONE Primary Care Unavailable PHYSICIAN, NONE [...] Care Unavailable KALA LITTLE DO Attending Unavailable NABIL, ABIMBOLA M Primary Care Unavailable HUY, ESTEVAN L Referring Unavailable KARINA DESAI Attending Unavailsharita DEWITT ABIMBOLA M Primary Care Unavailable HUY ESTEVAN L Referring Unavailable BUDDY MELENDEZ Attending Unavailable NABIL, ABIMBOLA M Primary Care Unavailable KARINA DESAI Attending Unavailsharita SON ESTEVAN Edilia Referring Unavailable NABIL, ABIMBOLA M Primary Care Unavailable ENA RIVERA [...] Primary Care Unavailable APURVA SINGH Referring Unavailable BUDDY MELENDEZ Attending Unavailable KRUEPKE, ABIMBOLA M Primary Care Unavailable APURVA SINGH Referring Unavailable BUDDY MELENDEZ Attending Unavailable HUY, ESTEVAN L Referring Unavailable HENRYZACHARY Attending Unavailable KRUEPKE, ABIMBOLA M Primary Care Unavailable HUY, ESTEVAN L Referring Unavailable KRUEPKE, ABIMBOLA M Primary Care Unavailable CLARENCE ARMSTRONG Attending Unavailable PHYSICIAN, NONE Primary Care Unavailable ISHAN TUBBS MD Attending Unavailable LOU GRECO, DR CAPPS Attending Unavailab le PHYSICIAN, NONE Primary Care Unavailable PHYSICIAN, NONE Primary Care Unavailable TRUMAN GABRIEL MD Attending Unavailable Care Physician, No Primary Primary Care Provider Unavailable Dr. Buddy Doty DO Emergency Provider [phone] Dr. Bill Oh DO Emergency Provider [phone] QUIRINO CRUZ Attending Unavailable YASMIN SUE Referring Unavailable NAYE HANCOCK Referring Unavailable GEORGE MONTES Referring Unavailable QUIRINO CRUZ Referring Unavailable QUIRINO CRUZ Attending Unavailable Care Physician, No Primary Primary Care Unava ilable Elizabeth Farooq Admitting Unavailable Elizabeth Farooq Attending Unavailable Elizabeth Farooq Referring Unavailable Care Physician, No Primary Primary Care Unava ilable ABIMBOLA SMITH Attending Unavailable Care Physician, No Primary Primary Care Unava ilable Bill Oh Attending Unavailable Buddy Doty Attending Unavailable Care Physician, No Primary Primary Care Unava ilable Care Physician, No Primary Primary Care Unava ilable Elizabeth Farooq Admitting Unavailable Elizabeth Farooq Consulting Unavailable Elizabeth Farooq Attending Unavailable Elizabeth Farooq Referring Unavailable Care Physician, No Primary Primary Care Unava ilable Tian Gomez Consulting Unavailable Tian Gomez Attending Unavailable Tian Gomez Referring Unavailable Care Physician, No Primary Primary Care Unava ilable Topher Hancock Attending Unavailable Topher Hancock Referring Unavailable Ena Lucas Attending Unavailable Elziabeth Farooq Referring Unavailable Care Physician, No Primary Primary Care Unava ilable Medications Current Medications Medication Drug Class(es) Dates Sig (Normalized) Sig (Original) acetaminophen 500 mg oral tablet (4 sources) Start: 02-18-2023 Tylenol Extra Strength 500 mg oral tablet Dose : 1,000 mg = 2 tab(s), Oral, q8hr, PRN as needed for pain, # 24 tab(s), 0 Refill(s), Pharmacy: [facility], 160, cm, 02/15/23 13:52:00 EST, Height, kg, 02/15/23 13:52:00 EST, Dosing Weight Start Date: 02/18/23 Status: Ordered Start: 02-15-2023 Tylenol Extra Strength 500 mg oral tablet Dose : 1,000 mg = 2 tab(s), Oral, q8hr, PRN as needed for pain, # 24 tab(s), 0 Refill(s), Pharmacy: [facility], 160, cm, 02/15/23 13:52:00 EST, [...] 30 tab(s), 1 Refill(s), [facility], 160, cm, 04/27/21 11:21:00 EDT, Height, [...] 30 tab(s), 1 Refill(s), [id number], 162, cm, 10/07/22 10:58:00 EDT, Height, kg, 06/28/22 14:39:00 EDT, Dosing Weight Start Date: 10/07/22 Stop Date: 10/21/22 Status: Ordered 200 actuat albuterol 0.09 mg/actuat dry powder inhaler (1 source) beta2-Adrenergic Agonist Start: 10-09-2024 Albuterol Sulfate 90 mcg/actuation aerosol powdr breath activated Active 1 NMA INHALATION EVERY 6 HOURS as needed for shortness of breath 1 0 October 09, 2024 12:00am Alcohol Swabs (20 sources) Start: 11-21-2023 Alcohol Swabs See Instructions, Check 4x/Day, # 1 EA, 0 Refill(s), [facility]: [id number], Gestational diabetes, 160, cm, 11/21/23 9:40:00 EDT, Height, 125, kg, 02/21/23 10:34:00 EST, Dosing Weight Start Date: 11/21/23 Status: Ordered Start: 01-08-2023 Alcohol Swabs See Instructions, Check 4x/Day, # 100 EA, 2 Refill(s), [facility]: [facility][id number], Encounter for supervision of normal in multigravida in third trimester GDM, class A2, 160, cm, 01/04/23 11:32:00 EST, Height, 120, kg, 01/04/23 11:32:00 EST, Dosing Weight Start Date: 01/08/23 Status: Ordered Start: 12-20-2022 Alcohol Swabs See Instructions, Check 4x/Day, # 1 EA, 0 Refill(s), [facility]: [id number], Encounter for supervision of normal in multigravida [...] Refill(s), 03/16/21 11:05:00 EST, Pharmacy: [facility], Anxiety, 160, cm, 01/06/21 13:48:00 EST, [...] days. 42 capsule 0 08/30/2023 09/06/2023 Active benzonatate 100 mg oral capsule (1 source) Non-narcotic Antitussive Start: 10-08-2024 End: 10-15-2024 take 1 capsule by mouth every eight hours as needed benzonatate (TESSALON PERLE) 100 mg capsule Take 1 capsule by mouth three times a day as needed for cough for up to 7 days. 21 capsule 10/08/2024 10/15/2024 Active betamethasone 0.5 mg/ml / clotrimazole 10 mg/ml topical cream (3 sources) Azole Antifungal, Corticosteroid Start: 06-02-2021 betamethasone-jermaine trimazole 0.05%-1% topical cream Apply 1 kasia, Topical, BID, # 15 gram(s), 0 Refill(s), [facility], Cream, 160, cm, 06/02/21 8:53:00 EDT, Height, 109.1 Start Date: 06/02/21 Status: Ordered Blood Glucose Test Machine (18 sources) Start: 01-08-2023 Blood Glucose Test Machine See Instructions, Check 4x/Day, # 1 EA, 0 Refill(s), [id number], Encounter for supervision of normal in multigravida in third trimester GDM, class A2, 160, cm, 01/04/23 11:32:00 EST, Height, 120, kg, 01/04/23 11:32:00 EST, Dosing Weight Start Date: 01/08/23 Status: Ordered Start: 12-20-2022 Blood Glucose Test Machine See Instructions, Check 4x/Day, # 1 EA, 0 Refill(s), [facility]: [id number], Encounter for supervision of normal in multigravida in second trimester Previous section, 170.2, cm, 12/20/22 10:27:00 EST, Height, 118.2, kg, 12/16/22 9:12:00 EDT, Dosing Weight Start Date: 12/20/22 Status: Ordered Blood Pressure Cuff (2 sources) Start: 02-18-2023 Blood Pressure Cuff See Instructions, Check and Log Blood Pressure Daily, # 1 EA, 0 Refill(s), Pharmacy: [facility], 160, cm, 02/15/23 13:52:00 EST, [...] infection, # 946 mL, 0 Refill(s), Pharmacy: [facility], 160, cm, 02/21/23 10:34:00 EST, Height, kg, 02/21/23 10:34:00 EST, Dosing Weight Start Date: 02/23/23 Status: Ordered ciprofloxacin 500 mg oral tablet (2 sources) Quinolone Antimicrobial Start: 02-09-2021 End: 02-14-2021 ciprofloxacin 500 mg oral tablet Dose : 500 mg = 1 tab(s), Oral, q12h, X 5 day(s), # 10 tab(s), 0 Refill(s), 02/14/21 10:05:00 EST, [facility], 162, cm, 02/09/21 9:48:00 EST, Height, [...] Refill(s), 02/18/23 9:18:00 PM EST, [facility]acy: [facility], 160, cm, 02/15/23 13:52:00 EST, Height, [...] 60 cap(s), 1 Refill(s), [facility]: [facility] #[id number], 160, cm, 02/21/23 10:34:00 EST, Height, kg, [...] 84 tab(s), 3 Refill(s), [facility]: [facility] #[id number], 162, cm, 02/18/22 11:25:00 EST, Height Start Date: 03/29/22 Stop Date: 02/28/23 Status: Ordered ferrous gluconate 324 mg oral tablet (2 sources) Start: 11-05-2021 End: 01-04-2022 ferrous gluconate 324 mg (38 mg elemental iron) oral tablet Dose : 324 mg = 1 tab(s), Oral, BID, X 30 day(s), # 60 tab(s), 1 Refill(s), 01/04/22 11:07:00 EST, [facility]: [facility] #[id number], 162.6, cm, 11/05/21 10:35:00 EDT, Height Start Date: 11/05/21 Stop Date: 01/04/22 Status: Ordered fluconazole 150 mg oral tablet (1 source) Azole Antifungal Start: 11-24-2022 End: 11-28-2022 Diflucan 150 mg oral tablet Dose : 150 mg = 1 tab(s), Oral, qDay, # 2 tab(s), 0 Refill(s), 11/28/22 8:00:00 AM EDT, [facility]: [facility] #[id number], 160, cm, 11/24/22 9:35:00 EDT, Height, 121.8, kg, 11/24/22 9:35:00 EDT, Dosing Weight Start Date: 11/24/22 Stop Date: 11/28/22 Status: Ordered fluticasone propionate 0.05 mg/actuat metered dose nasal spray (1 source) Corticosteroid Start: 12-01-2022 take 1 dose nasal route twice daily Flonase 50 mcg/inh nasal spray Dose = 1 spray(s), Nostril, each, BID, # 15.8 mL, 1 Refill(s), [facility]: [facility][id number], 160, cm, 12/01/22 10:39:00 EDT, Height, kg, 11/24/22 9:35:00 EDT, Dosing Weight Start Date: 12/01/22 Status: Ordered glyBURIDE 5 mg oral tablet (3 sources) Sulfonylurea Start: 12-27-2022 End: 03-27-2023 glyBURIDE 5 mg oral tablet Dose : 5 mg = 1 tab(s), Oral, BIDM, # 60 tab(s), 2 Refill(s), [facility]: [facility] #[id number], 170.2, cm, 12/27/22 11:03:00 EST, Height, kg, [...] 04/03/23 8:53:00 AM EST, [facility]: [facility] #[id number], 160, cm, 01/03/23 8:41:00 EST, Height, kg, 12/28/22 0:21:00 EST, Dosing Weight Start Date: 01/03/23 Stop Date: 04/03/23 Status: Ordered ibuprofen 600 mg oral tablet (4 sources) Nonsteroidal Anti-inflammatory Drug Start: 02-23-2023 ibuprofen 600 mg oral tablet Dose : 600 mg = 1 tab(s), Oral, q6h, PRN for pain, Take with food or milk., # 40 tab(s), 0 Refill(s), Pharmacy: [facility] #[id number], 160, cm, 02/21/23 10:34:00 EST, Height, kg, 02/21/23 10:34:00 EST, Dosing Weight Start Date: 02/23/23 Status: Ordered Start: 09-11-2018 End: 12-02-2021 ibuprofen 600 mg oral tablet Dose : 600 mg = 1 tab(s), Oral, q6h, PRN for pain, Take with food or milk., X 10 day(s), # 30 tab(s), 1 Refill(s), 12/02/21 7:48:00 EDT, [facility]: [id number], 162.6, cm, 11/10/21 18:24:00 EDT, Height Start Date: 11/12/21 Stop Date: 12/02/21 Status: Ordered insulin detemir 100 unt/ml injectable solution (13 sources) Insulin Analog Start: 02-09-2023 insulin detemi r (Levemir) 100 units/mL subcutaneous solution See Instructions, 0.28 Subcutaneous qHS, 0 Refill(s) Start Date: 02/09/23 Status: Ordered Start: 02-02-2023 End: 01-08-2024 Insulin Detemir U-100 (Levem ir Flexpen) 100 unit/mL (3 mL) insulin pen Discontinued 24 U SC AT BEDTIME February 02, 2023 1:00am January 08, 2024 4:48am Start: 01-26-2023 Levemir 100 un its/mL 10 [...] SC AT BEDTIME February 02, 2023 12:00am NIFEdipine 10 mg oral capsule (2 sources) Dihydropyridine Calcium Channel Kacy Start: 11-12-2022 End: 11-17-2022 NIFEdipine 10 mg oral capsule Dose : 10 mg = 1 cap(s), Oral, TID, take 3 caps for loading dose followed by 1 cap oral q 8 hours for contractions, # 18 cap(s), 0 Refill(s), [facility]: [facility][id number], 160, cm, 11/12/22 9:56:00 EDT, Height, kg, [...] 0 Refill(s), 01/13/21 14:06:00 EST, [facility]: [facility], UTI (urinary tract infection), 160, cm, 01/06/21 13:48:00 EST, Height, 128.1, kg, 01/06/21 13:48:00... Start Date: 01/06/21 Stop Date: 01/13/21 Status: Ordered nitrofurantoin, macrocrystals 25 mg / nitrofurantoin, monohydrate 75 mg oral capsule (2 sources) Nitrofuran Antibacterial Start: 01-03-2023 Macro bid 100 mg oral capsule Dose : 100 mg = 1 cap(s), Oral, qDay, Take with food, # 30 cap(s), 2 Refill(s), Pharmacy: [facility] #[id number], 160, cm, 12/28/22 0:21:00 EST, Height, 122.8, kg, 12/28/22 0:21:00 EST, Dosing Weight Start Date: 01/03/23 Status: Ordered Start: 12-28-2022 End: 01-02-2023 Macrobid 100 mg oral capsule Dose : 100 mg = 1 cap(s), Oral, BID, Take with food, X 5 day(s), # 10 cap(s), 0 Refill(s), 01/02/23 9:19:00 AM EST, [facility]: [facility] #[id number], 160, cm, 12/28/22 0:21:00 EST, Height, 122.8, kg, 12/28/22 0:21:00 EST, Dosing Weight Start Date: 12/28/22 Stop Date: 01/02/23 Status: Ordered [place] (Nk) (2 sources) Start: 10-07-2024 [place] (Nk) A ctive October 07, 2024 12:00am nystatin 100 unt/mg topical ointment (4 sources) Polyene Antifungal Start: 09-08-2023 End: 11-07-2023 nystatin 100,000 units/g topical ointment Apply 1 kasia, Topical, BID, X 30 day(s), # 30 gram(s), 1 Refill(s), [facility]: [facility] #[id number], Ointment, 160, cm, 09/08/23 9:01:00 EDT, Height, 125, kg, 02/21/23 10:34:00 EST, Dosing Weight Start Date: 09/08/23 Stop Date: 11/07/23 Status: Ordered Start: 11-12-2021 End: 2021 nystatin 100,000 units/g top ical cream Apply 1 kasia, Topical, TID, X 7 day(s), # 30 gram(s), 1 Refill(s), [facility]: [facility] #[id number], 162.6, cm, 11/10/21 18:24:00 EDT, Height, 130 Start Date: 11/12/21 Stop Date: 11/26/21 Status: Ordered pantoprazole 40 mg delayed release oral tablet (3 sources) Proton Pump Inhibitor Start: 10-25-2022 End: 04-23-2023 Protonix 40 mg oral enteric coated tablet Dose : 40 mg = 1 tab(s), Oral, qDay, # 30 tab(s), 5 Refill(s), [facility]: [facility] #[id number], 162, cm, 10/25/22 11:38:00 EDT, Height, kg, 06/28/22 14:39:00 EDT, Dosing Weight Start Date: 10/25/22 Stop Date: 04/23/23 Status: Ordered Pnv,Calcium 20-Izan-Lysdc Acid ( Vitamin Plus Low Iron) 27 mg iron- 1 mg tablet (9 sources) Start: 04-14-2021 take 1 tablet by mouth once daily Pnv,Calcium 32-Qyvk-Cumuz Acid ( Vitamin Plus Low Iron) 27 mg iron- 1 mg tablet Active 1 TABLET PO DAILY April 14, 2021 11:59am Start: 04-14-2021 End: 10-07-2024 Pnv,Calcium 55-Bqsw-Iwbgk Ac id ( Vitamin Plus Low Iron) 27 mg iron- 1 mg tablet Discontinued 1 {tbl} PO DAILY April 14, 2021 1:00am October 07, 2024 6:05am Start: 04-14-2021 take 1 tablet by shirin th once daily Pnv,Calcium 17-Lmtt-Mbevb Acid ( Vitamin Plus Low Iron) 27 mg iron- 1 mg tablet Active 1 TABLET PO DAILY April 14, 2021 1:00am Start: 04-14-2021 take 1 tablet by shirin th once daily Pnv,Calcium 17-Epck-Ooami Acid ( Vitamin Plus Low Iron) 27 mg iron- 1 mg tablet Active 1 TABLET PO DAILY April 14, 2021 12:00am predniSONE 20 mg oral tablet (1 source) Start: 10-09-2024 take 1 tablet by mouth once daily Prednisone 20 mg tablet Active 20 mg PO DAILY 5 5 0 October 09, 2024 12:00am PrenaPlus (14 sources) Start: 01-26-2023 take 1 tablet by mouth once daily PrenaPlus Dose = 1 tab(s), Oral, qDay, 0 Refill(s) Start Date: 01/26/23 Status: Ordered 19 (Mcalister) oral tablet (18 sources) Start: 03-31-2021 take 1 tablet by mouth once daily 19 (Mcalister) oral tablet Dose = 1 tab(s), Oral, qDay, of choice, # 100 tab(s), 2 Refill(s), [facility] [address], 160, cm, 03/31/21 13:33:00 EST, Height, kg, [...] 12 tab(s), 1 Refill(s), [facility]: [facility] #[id number], 162, cm, 10/25/22 11:38:00 EDT, Height, kg, [...] # 90 tab(s), 1 Refill(s), [facility], 162.6, cm, 09/23/20 10:26:00 EDT, Height, kg, 10/09/20 9:38:00 EDT, Dosing Weight Start Date: 10/14/20 Stop Date: 04/12/21 Status: Ordered End: 03-12-2024 take 1 tablet by mouth once daily sertraline HCl (ZOLOFT ORAL) Take 1 tablet by mouth once daily. 03/12/2024 Discontinued take 1 tablet by shirin once daily sertraline HCl (ZOLOFT ORAL) Take 1 tablet by mouth once daily. 0 Active Comment on above: Take 1 tablet by [facility] once daily. Sprintec 0.25 mg-35 mcg oral tablet (5 sources) Start: 12-19-19 End: 11-20-19 take 1 tablet by mouth once daily Sprintec 0.25 mg-35 mcg oral tablet Dose = 1 tab(s), Oral, qDay, # 84 tab(s), 3 Refill(s), [facility]: [facility], 162.6, cm, 09/23/20 10:26:00 EDT, Height, [...] day(s), # 14 tab(s), 0 Refill(s), [id number], 160, cm, 12/30/22 9:04:00 EST, Height, 122.8, kg, 12/28/22 0:21:00 EST, Dosing Weight Start Date: 12/30/22 Stop Date: 01/06/23 Status: Ordered Start: 08-26-2022 End: 09-02-2022 take 1 tablet by mouth twice daily Bactrim DS 800 mg-160 mg oral tablet Dose = 1 tab(s), Oral, BID, X 7 day(s), # 14 tab(s), 0 Refill(s), Pharm[facility]: [facility][id number], 162, cm, 08/26/22 10:52:00 EDT, Height, 123.8 Start Date: 08/26/22 Stop Date: 09/02/22 Status: Ordered ursodiol 500 mg oral tablet (12 sources) Bile Acid Start: 12-23-2023 End: 04-21-2024 ursodiol 500 mg oral tablet Dose : 500 mg = 1 tab(s), Oral, BID, # 60 tab(s), 3 Refill(s), [facility]: [facility][id number], 160, cm, 12/23/23 10:22:00 EST, Height, kg, 12/23/23 10:22:00 EST, Dosing Weight Start Date: 12/23/23 Stop Date: 04/21/24 Status: Ordered Start: 01-10-2023 End: 10-07-2024 take 1 capsule by mouth three times daily Ursodiol 300 mg capsule Discontinued 500 mg PO THREE TIMES A DAY February 02, 2023 1:00am October 07, 2024 6:05am cholestatis {10 (nirmatrelvir 150 MG Ora l Tablet) [...] # 5 EA, 0 Refill(s), [facility]acy: [facility], 160, cm, 02/09/23 12:52:00 EST, Height, kg, 02/09/23 12:52:00 EST, Dosing Weight Start Date: 02/10/23 Stop Date: 02/15/23 Status: Ordered Completed/Discontinued Medications Medication Drug Class(es) Dates Sig (Normalized) Sig (Original) acetaminophen 325 mg / oxyCODONE hydrochloride 5 mg oral tablet (4 sources) Opioid Agonist Start: 01-08-2024 End: 10-07-2024 Oxycodone-Acetamino phen (Percocet) 5-325 mg tablet Discontinued 1 {tbl} PO EVERY 6 HOURS as needed for pain 28 7 0 January 08, 2024 October 07, 2024 6:05am delivery delivered Encounter for delivery without indication Start: 02-23-2023 End: 03-02-2023 take 1 tablet by mouth every six hours as needed for pain Percocet 5 mg-325 mg oral tablet Dose = 1 tab(s), Oral, q6h, PRN Pain, X 7 day(s), # 24 tab(s), 0 Refill(s), Pharmacy: [facility] #[id number], Post-op pain, 160, cm, 02/21/23 10:34:00 EST, [...] day(s), # 28 tab(s), 0 Refill(s), Pharmacy: [facility] #[id number], delivery delivered Post-op pain, 162.6, cm, 11/10/21 18:24:00 EDT, Height, 130 Start Date: 11/12/21 Stop Date: 11/19/21 Status: Ordered Bayhav-Axwcmaun-Jkcr 50-325-40 (9 sources) Start: 11-14-2017 End: 11-21-2017 take 1 tablet by mouth every six hours as needed Fwzize-Lxyyhdvl-Pkiv 50-325-40 Discontinued 1 - 2 TABLET PO EVERY 6 HOURS NEEDED November 14, 2017 7:38pm November 21, 2017 11:37pm Start: 11-14-2017 End: 11-21-2017 Ojqnww-Kvokipae-Jqlm 50-325- 40 Discontinued 1 - 2 {tbl} PO EVERY 6 HOURS NEEDED as needed for Headache November 14, 2017 12:00am November 21, 2017 11:37pm Start: 11-14-2017 End: 11-21-2017 take 1 tablet by mouth every six hours as needed Lgdiba-Ylctpfbd-Vhqu 50-325-40 Discontinued 1 - 2 TABLET PO EVERY 6 HOURS NEEDED November 14, 2017 12:00am November 21, 2017 11:37pm Start: 11-14-2017 End: 11-21-2017 take 1 tablet by mouth every six hours as needed Uvmpac-Rltfqslf-Tvbd 50-325-40 Discontinued 1 - 2 TABLET PO EVERY 6 HOURS NEEDED November 13, 2017 11:00pm November 21, 2017 10:37pm cephalexin 500 mg oral capsule (11 sources) Cephalosporin Antibacterial Start: 01-08-2024 End: 10-07-2024 take 1 capsule by mouth once daily Cephalexin 500 mg capsule Discontinued 500 mg PO DAILY January 08, 2024 1:00am October 07, 2024 6:04am Hx UTI Start: 12-23-2023 Keflex Dose : 500 mg =, Oral, qHS, 0 Refill(s), 125 Start Date: 12/23/23 Status: Ordered Start: 11-09-2022 End: 11-16-2022 Keflex Dose : 500 mg =, Oral , BID, 0 Refill(s), 123.8 Start Date: 11/09/22 Stop Date: 11/16/22 Status: Ordered Start: 11-09-2022 End: 12-02-2022 take 1 capsule by mouth twice daily Cephalexin 500 mg capsule Discontinued 500 mg PO TWICE A DAY 14 0 November 09, 2022 12:00am December 02, 2022 8:19am famotidine 20 mg oral tablet (9 sources) Histamine-2 Receptor Antagonist Start: 01-26-2023 End: 01-08-2024 take 1 tablet by mouth once daily Famotidine (Acid-Pep) 20 mg tablet Discontinued 20 mg PO DAILY February 02, 2023 1:00am January 08, 2024 4:47am ferrous sulfate 325 mg oral tablet (14 sources) Start: 01-26-2023 End: 10-07-2024 take 1 tablet by mouth every other day Ferrous Sulfate (Feosol) 325 mg (65 mg iron) tablet Discontinued 325 mg PO EVERY OTHER DAY February 02, 2023 1:00am October 07, 2024 6:04am Start: 01-05-2023 ferrous sulfat e 325 mg (65 mg elemental iron) oral delayed release tablet Dose : 325 mg = 1 tab(s), Oral, qDay, # 30 tab(s), 3 Refill(s), [id number], 160, cm, 01/04/23 11:32:00 EST, Height, kg, [...] /day, # 4.5 mL, 4 Refill(s), Pharmacy: [facility] #[id number], Gestational diabetes mellitus, delivered 28 weeks gestation of , 160, cm, 11/28/23 10:05:00 EDT, Height, kg, 02/21/23 10:34:00 EST, Dosing Weight Start Date: 11/28/23 Status: Ordered Start: 01-08-2023 inject 0.2 mL by sub cutaneous injection once daily insulin glargine (Toujeo) (concentrated) 300 units/mL subcutaneous solution Dose : 60 unit(s) = 0.2 mL, Subcutaneous, qDay, # 6 mL, 4 Refill(s), Pharmacy: [facility] #[id number], 160, cm, 01/04/23 11:32:00 EST, Height, kg, 01/04/23 11:32:00 EST, Dosing Weight Start Date: 01/08/23 Status: Ordered 3 ml insulin isophane, human 100 unt/ml pen injector (6 sources) Start: 01-08-2024 End: 10-07-2024 Insulin Nph Isoph U-100 Noelle n (Humulin N Nph Insulin Kwikpen) 100 unit/mL (3 mL) insulin pen Discontinued 30 U SC DAILY January 08, 2024 1:00am October 07, 2024 6:04am GDM Start: 12-23-2023 inject 1 dose by sub [...] 0 Refill(s) Start Date: 12/23/23 Status: Ordered naproxen 500 mg oral tablet (2 sources) Nonsteroidal Anti-inflammatory Drug Start: 01-08-2024 End: 10-07-2024 take 1 tablet by mouth twice daily as needed for pain Naproxen 500 mg tablet Discontinued 500 mg PO TWICE DAILY NEEDED as needed for Pain 15 03January 08, 2024 1:00am October 07, 2024 6:04am ondansetron 4 mg oral tablet (20 sources) Serotonin-3 Receptor Antagonist Start: 03-31-2021 End: 11-09-2022 take 1 tablet by mouth every six hours as needed for nausea Ondansetron Hcl 4 mg tablet Discontinued 4 mg PO EVERY 6 HOURS NEEDED as needed for Nausea April 14, 2021 1:00am November 09, 2022 7:37am Start: 06-10-2017 End: 11-21-2017 take 1 tablet by mouth once daily as needed for nausea Ondansetron 4 MG tablet Discontinued 4 mg PO DAILY as needed for Nausea June 10, 2017 12:00am November 21, 2017 11:37pm End: 03-12-2024 ondansetron HCl (ZOFRAN ORAL ) Take by mouth. 03/12/2024 Discontinued ondansetron HCl (ZOFRAN ORAL) Take by mouth. 0 Active Comment on above: Take by mouth. oxyCODONE hydrochloride 5 mg oral tablet (9 sources) Opioid Agonist Start: 11-21-2017 End: 2017 take 1 tablet by mouth every six hours as needed for pain Oxycodone 5 MG tablet Discontinued 5 mg PO EVERY 6 HOURS NEEDED as needed for Severe Pain () 20 5 0 November 21, 2017 12:00am November 25, 2017 12:00am 2017 12:11am delivery delivered Encounter for delivery without indication vit,alexander 74/iron/folic ( VITAMIN 1+1 ORAL) (3 [...] # 30 tab(s), 0 Refill(s), [facility], 160, cm, 07/20/21 11:06:00 EDT, Height Start Date: 07/20/21 Stop Date: 07/27/21 Status: Ordered Problems Active Problems Problem Classification Problem Date Documented Da te Episodic/Chronic Acute bronchitis (9 sources) Acute bronchitis; Translations: [Acute bronchitis, unspecified] 03-12-2019 Episodic Anxiety disorders (20 sources) Anxiety; Translations: [Mixed anxiety and depressive disorder] 01-23-2020 Chronic Biliary tract disease (3 sources) Cholestasis; Translations: [Obstruction of bile duct] Onset: 01-27-2024 01-08-2024 Chronic Blindness and vision defects (8 sources) Blurring of visual image; Translations: [Other visual disturbances] 11-09-2022 Episodic Calculus of urinary tract (20 sources) Kidney stone 01-23-2020 Episodic Cardiac dysrhythmias (7 sources) Atrial tachycardia; Translations: [Supraventricular tachycardia] 07-21-2021 Chronic Cardiac dysrhythmias (17 sources) Palpitations; Translations: [Palpitations] Onset: 06-14-2021 Episodic Conditions associated with dizziness or vertigo (7 sources) Dizziness; Translations: [Dizziness and giddiness] Onset: 11-09-2023 12-02-2022 Episodic Genitourinary symptoms and ill-defined conditions (20 sources) Urinary symptoms 08-26-2022 Episodic Headache; including migraine (20 sources) Migraine; Translations: [Refractory migraine] Onset: 09-11-2016 Resolved: 09-12-2016 01-23-2020 Chronic Hemorrhage during ; abruptio placenta; placenta previa (20 sources) Threatened miscarriage; Translations: [Threatened ] Episodic Hypertension complicating ; childbirth and the puerperium (9 sources) Pre-eclampsia; Translations: [Unspecified pre-eclampsia, unspecified trimester] [...] of ; puerperium affecting management of mother (5 sources) Deliveries by ; Translations: [Encounter for delivery without indication] 07-28-2021 Episodic Comment on above: RLTCS BS SM 34 weeks care at [facility]. suspected uterine rupture Other complications of (20 sources) Urinary tract infection in 11-14-2022 Episodic Other complications of (15 sources) Cholestasis of 01-10-2023 Episodic Other complications of (2 sources) Abdominal pain in ; Translations: [Other specified related conditions, third trimester] 01-08-2024 Episodic Other complications of (2 sources) Headache; Translations: [Other specified related conditions, unspecified trimester] 01-08-2024 Episodic Other connective tissue disease (8 sources) Pain in left foot; Translations: [Pain in left foot] 05-14-2024 Episodic Other female genital disorders (20 sources) Abnormal uterine bleeding 03-11-2022 Chronic Other gastrointestinal disorders (9 sources) Constipation; Translations: [Constipation, unspecified] 11-29-2017 Episodic Other injuries and conditions due to external causes (1 source) Unspecified injury of unspecified lower leg, initial encounter; Translations: [Unspecified injury of unspecified lower leg, initial encounter] Onset: 10-12-2024 Episodic Other liver diseases (15 sources) Elevated liver enzymes level 01-10-2023 Episodic Other lower respiratory disease (7 sources) Dyspnea; Translations: [Shortness of breath] 07-21-2021 Episodic Other lower respiratory disease (1 source) Cough; Translations: [Acute cough] 08-30-2023 Episodic Other lower respiratory disease (4 sources) Cough; Translations: [Acute cough] 03-12-2024 Episodic Other nervous system disorders (1 source) Postoperative pain ; Translations: [Other acute postprocedural pain] Onset: 11-12-2021 Episodic Other non-traumatic joint disorders (9 sources) Pain in unspecified knee; Translations: [Acute knee pain] 04-22-2021 Episodic Other non-traumatic joint disorders (7 sources) Acute ankle pain; Translations: [Pain in left ankle and joints of left foot] 05-14-2024 Episodic Other nutritional; endocrine; and metabolic disorders (20 sources) Body mass index 30+ - obesity 07-25-2017 Chronic Other nutritional; endocrine; and metabolic disorders (9 sources) Body mass index 40+ - severely obese; Translations: [Body mass index (BMI) 45.0-49.9, adult] 11-28-2017 Chronic Other screening for suspected conditions (not mental disorders or infectious disease) (2 sources) Possible ; Translations: [Encounter for test, result unknown] Episodic Other upper respiratory infections (4 sources) Acute upper respiratory infection; Translations: [Acute upper respiratory infection, unspecified] Onset: 05-15-2013 Resolved: 03-07-2015 04-08-2022 Episodic Residual codes; unclassified (2 sources) Gestational age unknown ; Translations: [Weeks of gestation of not specified] Episodic Residual codes; unclassified (9 sources) Gestation period, 39 weeks; Translations: [39 weeks gestation of ] 07-21-2021 Episodic Residual codes; unclassified (7 sources) Gestation period, 22 weeks; Translations: [22 weeks gestation of ] 07-28-2021 Episodic Residual codes; unclassified (7 sources) History of pre-eclampsia; Translations: [Personal history of other complications of , childbirth and the puerperium] 07-21-2021 Episodic Residual codes; unclassified (2 sources) 28 weeks gestation of ; Translations: [28 weeks gestation of ] Onset: 11-28-2023 Episodic Residual codes; unclassified (6 sources) Pain; Translations: [Pain, unspecified] 04-19-2024 Episodic Residual codes; unclassified (2 sources) Gestation period, 34 weeks; Translations: [34 weeks gestation of ] 01-08-2024 Episodic Sprains and strains (11 sources) Strain of muscle of hip; Translations: [Strain of muscle, fascia and tendon of unspecified hip, initial encounter] 04-22-2021 Episodic Unclassified (20 sources) Patient encounter status 08-07-2020 Unclassified (1 source) Acute cough; Translations: [Acute cough] Onset: 03-12-2024 Unclassified (1 source) Cough, unspecified; Translations: [Cough, unspecified] Onset: 10-16-2024 Past or Other Problems Problem Classification Problem Date Documented Date Episodic/Chronic Abdominal pain (20 sources) Abdominal pain; Translations: [Unspecified abdominal pain] Onset: 01-25-2021 Episodic Comment on above: x 3 Contraceptive and procreative management (20 sources) Intrauterine contraceptive device in situ; Translations: [Contraception status] Onset: 01-27-2024 10-09-2020 Episodic Comment on above: title 19 form receiv ed Diabetes or abnormal glucose tolerance complicating ; childbirth; or the puerperium (20 sources) Gestational diabetes mellitus, class A>2< ; Translations: [Gestational diabetes mellitus in childbirth, unspecified control] Onset: 11-28-2023 12-27-2022 Episodic Disorders usually diagnosed in infancy, childhood, or adolescence (1 source) Attention deficit hyperactivity disorder, predominantly inattentive type; Translations: [Other specified behavioral and emotional disorders with onset usually occurring in childhood and adolescence] Onset: 07-01-2011 Resolved: 03-07-2015 04-08-2022 Chronic Early or threatened labor (7 sources) False labor before 37 completed weeks of gestation; Translations: [False labor before 37 completed weeks of gestation, unspecified trimester] Onset: 11-12-2022 Episodic Inflammation; infection of eye (except that caused [...] pregnancies, third trimester] Onset: 01-12-2023 Episodic Other complications of (1 source) Other specified related conditions, third trimester; Translations: [Other specified related conditions, third trimester] Onset: 01-27-2024 Episodic Other connective tissue disease (1 source) Pain in left foot; Translations: [Foot pain, left] Onset: 06-05-2024 Episodic Other non-traumatic joint disorders (1 source) Pain in left ankle and joints of left foot; Translations: [Acute left ankle pain] Onset: 05-14-2024 Episodic Other nutritional; endocrine; and metabolic disorders (1 source) Childhood obesity; Translations: [Body mass index (BMI) pediatric, greater than or equal to 95th percentile for age] Onset: 05-05-2016 09-12-2016 Episodic Other and delivery including normal (20 sources) ; Translations: [First trimester ] Onset: 02-14-2021 03-31-2021 Episodic Otitis media and related conditions (1 source) Acute otitis media; Translations: [Otitis media, unspecified, unspecified ear] Onset: 12-24-2013 Resolved: 03-07-2015 03-07-2015 Episodic Previous (1 source) Maternal care for unspecified type scar from previous delivery; Translations: [Maternal care for unspecified type scar from previous delivery] Onset: 01-27-2024 Episodic Residual codes; unclassified (1 source) Impulsive character; Translations: [Impulsiveness] Onset: 04-14-2010 Resolved: 03-07-2015 03-07-2015 Episodic Residual codes; unclassified (1 source) Pain, unspecified; Translations: [Pain] Onset: 04-19-2024 Episodic Residual codes; unclassified (1 source) Personal history of other complications of , childbirth and the puerperium; Translations: [Personal history of other complications of , childbirth and the puerperium] Onset: 01-27-2024 Episodic Residual codes; unclassified (1 source) 34 weeks gestation of ; Translations: [34 weeks gestation of ] Onset: 01-27-2024 Episodic Skin and subcutaneous tissue infections (11 sources) Abscess of foot, except toe; Translations: [Cellulitis of unspecified part of limb] Onset: 09-01-2005 Resolved: 03-25-2015 03-25-2015 Episodic NEGATED: Highlighted row has been ruled out!Unclassified (5 sources) No known active problems 04-14-2021 Results Test Name Value Interpretation Reference Range Facility Chest PA and Lateralon 10-09 Chest PA and Lateral [facility] Imaging Services [address], [place] [address] Chest PA and Lateral MR#: [id number] Acct: [id number] Name: LESTER INFANTE Rep #: [id number] : 2000 F 23 From: Devaughn avalos MD PCP: Care Physician,No Primary Status: REG ER Study: Chest PA and Lateral Date of Exam: 10/09/24 Exam# [id number] Ordering Dr: Bill Oh DO PROCEDURE: CHEST PA AND LATERAL 10/09/2024 REASON FOR EXAM: COUGH TECHNIQUE: CHEST PA AND LATERAL COMPARISON: None FINDINGS: Hardware: None Heart: The heart size is normal. Mediastinum: The mediastinal contour is unremarkable. Lungs: The lungs are clear. Bones: The bones are unremarkable. RAD/Chest PA and Lateral IMPRESSION: NEGATIVE CHEST Reading Location: [facility] CC: Dr. Bill Oh DO; No Primary Care Physician Mud Analysis Supervisor: Signed [facility] Emergency Department Summary on 10-09-2024 Emergency Department Summary [facility] Medical Records Department [address] [place] [address] Emergency Department Summary 10/09/24 MR#: [id number] Acct: [id number] Name: LESTER INFANTE Rep #: [id number] : 2000 23 From: Bill Oh DO PCP: Care Physician,No Primary Status:REG ER Location: ED HPI History of Present Illness Chief Complaint: Cough PFSH PFSH Medical History (Updated 10/09/24 @ 11:[address] Bill Oh DO) Atrial tachycardia Urinary tract infection affecting Cholestasis during Heart palpitations Gestational diabetes Pre-eclampsia History of migraine History of kidney stones History of pre-eclampsia Anxiety and depression delivery delivered Home Medications ???Medication ???Instructions ???Recorded ???Last Taken ???Type NK 10/07/24 Unknown History albuterol sulfate 90 mcg/actuation 1 inh inhalation Q6H PRN shortne ss 10/09/24 Unknown Rx breath activated powder inhaler of breath #1 ea prednisone 20 mg tablet 20 mg PO DAILY 5 days #5 TABLETS 0 10/09/24 Unknown Rx Allergy/AdvReac Type Severity Reaction Status Date / Time No Known Allergies Allergy Verified 10/09/24 09:29 Family History Grandfather Hypertension Grandmother Diabetes CVA (cerebral vascular accident) Hypertension Lupus Grandfather Diabetes Myocardial infarction CAD (coronary artery disease) Hypertension Surgical History History of Social History Smoking Status: Never smoker EXAM Physical Exam Const Vital Signs: 10/09/24 08:49 10/09/24 09:20 10/09/24 09:29 Temperature 97.8 F Temperature Source Temporal Pulse Rate 104 H Respiratory Rate 20 H 16 Respiratory Effort Short of Breath Labored Respiratory Depth Deep Respiratory Pattern Normal Tachypnea Blood Pressure 168/81 H Blood Pressure Mean 110 Pulse Ox 100 Oxygen Delivery Method Room Air Room Air 10/09/24 11:17 Temperature Temperature Source Pulse Rate 104 H Respiratory Rate 16 Respiratory Effort Respiratory Depth Respiratory Pattern Blood Pressure 154/78 H Blood Pressure Mean 103 Pulse Ox 97 Oxygen Delivery Method Room Air [facility] Narrative Medical decision making narrative: HISTORY OF PRESENT ILLNESS: Chief complaint: Cough 23-year-old female history of anxiety, depression, presents with cough. The patient states she has had 2 days of cough, congestion, feeling sick. No sick contacts. No hemoptysis, leg swelling, chest pain, history of blood clots. No shortness of breath when she exerts herself. Denies asthma or COPD. No smoking history. REVIEW OF SYSTEMS: Pertinent positives: Cough, dizziness with exertion Pertinent negatives: As per HPI PHYSICAL EXAM: Nursing triage notes reviewed, Vital signs reviewed Constitutional: please see [facility] HENT: MMM Eyes: Pupils equal round and reactive to light, Extraocular muscles intact Neck: No stridor, no JVD, full neck ROM Lungs: slight end expiratory wheezes noted in bilateral lung masterson, no increased work of breathing, no conversational dyspnea, no accessory muscle use, no nasal flaring. No respiratory distress noted Heart: Regular rate and rhythm, No murmurs, No rubs and No gallops, 2+ distal pulses (radial, femoral, posterior tibial) in all extremities Abdomen: Soft, there is no tenderness, rigidity, rebound or guarding, no obvious peritoneal signs, no palpable pulsatile abdominal masses, no auscultated abdominal bruit : No CVAT Extremities: No edema Neuro: Alert and oriented x3, neuro exam at baseline, cranial nerves II through XII are intact. No pain with extraocular muscle movement. There is negative test of skew. 5 of 5 strength in upper and lower extremities in flexion extension. Intact sensation to light touch in upper and lower extremity dermatomes. No truncal or extremity ataxia. No dysdiadochokinesia. Normal gait. 2+ reflexes in upper and lower extremities. No meningeal signs. Negative Babinski. NIH of 0. Skin: No rash or lesions noted MEDICAL DECISION MAKING: Chief Complaint: please see HPI External records reviewed: Reviewed prior imaging Factors affecting care as per [facility] Social determinants of health: none History obtained from others: none Consults: none [facility] Narrative: Patient was initially hemodynamically stable, afebrile and nontoxic-appearing. Exam with slight end expiratory wheezing I considered the following differential diagnosis: Pneumonia, viral illness, obstructive lung disease I obtained chest x-ray, viral swab to further determine if the patient was sufferi (more content not included)... [facility] Office Visit ([facility]) ----- LESTER INFANTE ([id number]) 1 F Date Time Provider Department 10/08/24 4:00 PM QUIRINO CRUZ During your visit today, we recorded the following information about you: Temperature Pulse Respiration Blood pressure 99.7 degrees 94/minute 20/minute 122/72 Weight 136.7 kg Quirino Cruz, ELVIRA.SALES REPRESENTATIVE GRAPHIC ART 10/08/2024 4:50 PM Signed [facility] Subjective Lester Infante is a 23 year old female. Patient presents with: Cough: DUNNE, chest congestion, sob x 2 days HPI Nontoxic-appearing 23-year-old female presents urgent care chief complaint cough chest congestion and headache fatigue low-grade fever. Shortness of breath with coughing only. duration of symptoms 2 days. Associated symptoms listed above. Presents today for evaluation. OTC medications none. Sick contacts unknown. Denies any hemoptysis pleuritic pain. No high fevers. No nausea vomiting abdominal pain. Denies chance of . Past medical history prescription medications allergies reviewed Review of Systems Constitutional: Positive for chills, fatigue and fever. Negative for diaphoresis. HENT: Positive for congestion and rhinorrhea. Negative for drooling, ear discharge, ear pain, sinus pressure, sinus pain, sneezing, sore throat and trouble swallowing. Eyes: Negative for pain, discharge, redness, itching and visual disturbance. Respiratory: Positive for cough. Negative for chest tightness, shortness of breath and wheezing. Cardiovascular: Negative for chest pain. Gastrointestinal: Negative for abdominal distention, abdominal pain, blood in stool, constipation, diarrhea, nausea and vomiting. Genitourinary: Negative for difficulty urinating and dysuria. Musculoskeletal: Negative for arthralgias, joint swelling, neck pain and neck stiffness. Skin: Negative for rash. Neurological: Positive for headaches. Negative for dizziness, weakness and numbness. Objective BP 122/72 Pulse 94 Temp 37.6 ?C (99.7 ?F) Resp 20 Wt (!) 136.7 kg (301 lb 5.9 oz) LMP 04/05/2024 SpO2 98% Physical Exam Constitutional: Appearance: Normal appearance. HENT: Head: Normocephalic. Jaw: No trismus, tenderness, swelling or pain on movement. Nose: Congestion present. Mouth/Throat: Mouth: Mucous membranes are moist. Pharynx: Oropharynx is clear. Uvula midline. No oropharyngeal exudate or posterior oropharyngeal erythema. Eyes: Conjunctiva/sclera: Conjunctivae normal. Cardiovascular: Rate and Rhythm: Normal rate. Pulmonary: Effort: Pulmonary effort is normal. Breath sounds: Normal breath sounds. No wheezing, rhonchi or rales. Abdominal: Palpations: Abdomen is soft. Tenderness: There is no abdominal tenderness. There is no guarding or rebound. Musculoskeletal: General: Normal range of motion. Cervical back: Normal range of motion and neck supple. No edema, erythema or rigidity. No pain with movement. Normal range of motion. Lymphadenopathy: Cervical: No cervical adenopathy. Skin: General: Skin is warm. Findings: No rash. Neurological: General: No focal deficit present. Mental Status: She is alert and oriented to person, place, and time. Mental status is at baseline. {ASSESSMENT/PLAN: 1. Acute cough - ICD9: 786.2, ICD10: R05.1 (primary diagnosis) - XR CHEST 2V FRONTAL/LAT 2. Viral URI with cough - ICD9: 465.9, ICD10: J06.9 No adventitious lung sounds. Chest x-ray unremarkable. We discussed COVID and flu testing. Declined at this point. We discussed red flags for ER evaluation. Treat as viral etiology Patient was educated on supportive therapies. Patient [...] of care. This note was generated using [employer] software. It may contain errors in wording, punctuation, or spelling. Quirino Cruz APRN.SALES REPRESENTATIVE GRAPHIC ART History and Record Review Clinical information obtained from an independent historian. History obtained from or confirmed by: parent. External record(s) reviewed: prior outpatient record. Disposition The patient was discharged. OTC Medications were advised: Procedures Allergies As of Date: 10/08/2024 (No Known Allergies) Date Reviewed: 10/08/2024 Reviewed by: Quirino Cruz APRN.SALES REPRESENTATIVE GRAPHIC ART - Fully Assessed Reason for Visit: Cough [28] Cmt: DUNNE, chest congestion, sob x 2 days Primary Visit Diagnosis:Acute cough [R05.1] Other Visit Diagnosis:Viral URI with cough [J06.9] Order(s):XR CHEST 2V FRONTAL/LAT [[id number]] Order #: [id number] FUTU (more content not included)... Normal [facility] XR CHEST 2V FRONTAL/LATon XR CHEST 2V FRONTAL/LAT * * *Final Report* * * DATE OF EXAM: Oct 08 2024 4:33PM WOX [id number] - XR CHEST 2V FRONTAL/LAT / PROCEDURE REASON: Acute cough * * * * Physician Interpretation * * * * EXAMINATION: CHEST RADIOGRAPH (2 VIEW FRONTAL and LATERAL) CLINICAL HISTORY: Acute cough MQ: XC2_6 EXAM DATE/TIME: 10/08/2024 4:33 PM COMPARISON: Chest x-ray dated 03/12/2024 RESULT: Lines, tubes, and devices: None. Lungs and pleura: No consolidation. No lung mass. No pleural effusion. No pneumothorax. Cardiomediastinal silhouette: Normal cardiomediastinal silhouette. Bones and soft tissues: Unremarkable. IMPRESSION: No acute radiographic abnormality. Mud Analysis Supervisor: PSCB Transcribe Date/Time: Oct 08 2024 4:38P Dictated by : DENICE MCINTOSH MD This examination was interpreted and the report reviewed and electronically signed by: DENICE MCINTOSH MD on Oct 08 2024 4:38PM EST [id number] Normal [facility] XR Chest PA and Lateralon IMPRESSION: No acute radiographic abnormality. Mud Analysis Supervisor: STAN Transcribe Date/Time: Oct 08 2024 4:38P Dictated by : DENICE MCINTOSH MD This examination was interpreted and the report reviewed and electronically signed by: DENICE MCINTOSH MD on Oct 08 2024 4:38PM [facility] DIVISION OF RADIOLOGY * * *Final Report* * * DATE OF EXAM: Oct 08 2024 4:33PM [id number] - XR CHEST 2V FRONTAL/LAT / PROCEDURE REASON: Acute cough * * * * Physician Interpretation * * * * EXAMINATION: CHEST RADIOGRAPH (2 VIEW FRONTAL & LATERAL) CLINICAL HISTORY: Acute cough MQ: XC2_6 EXAM DATE/TIME: 10/08/2024 4:33 PM COMPARISON: Chest x-ray dated 03/12/2024 RESULT: Lines, tubes, and devices: None. Lungs and pleura: No consolidation. No lung mass. No pleural effusion. No pneumothorax. Cardiomediastinal silhouette: Normal cardiomediastinal silhouette. Bones and soft tissues: Unremarkable. DIVISION OF RADIOLOGY Provider, [facility] - 10/08/2024 * * *Final Report* * * DATE OF EXAM: Oct 08 2024 4:33PM WOX [id number] - XR CHEST 2V FRONTAL/LAT / PROCEDURE REASON: Acute cough * * * * Physician Interpretation * * * * EXAMINATION: CHEST RADIOGRAPH (2 VIEW FRONTAL & LATERAL) CLINICAL HISTORY: Acute cough MQ: XC2_6 EXAM DATE/TIME: 10/08/2024 4:33 PM COMPARISON: Chest x-ray dated 03/12/2024 RESULT: Lines, tubes, and devices: None. Lungs and pleura: No consolidation. No lung mass. No pleural effusion. No pneumothorax. Cardiomediastinal silhouette: Normal cardiomediastinal silhouette. Bones and soft tissues: Unremarkable. IMPRESSION IMPRESSION: No acute radiographic abnormality. Mud Analysis Supervisor: STAN Transcribe Date/Time: Oct 08 2024 4:38P Dictated by : DENICE MCINTOSH MD This examination was interpreted and the report reviewed and electronically signed by: DENICE MCINTOSH MD on Oct 08 2024 4:38PM [facility] Radiology Study observation (narrative) [facility] XR Chest PA and LateralOrder ed By: [facility] Provider on 10-08-2024 [facility] Ankle min 3 Viewson 10-08-19 25 Ankle min 3 Views [facility] Imaging Services [address] [place] [address] Ankle min 3 Views MR#: [id number] Acct: [id number] Name: LESTER INFANTE Rep #: [id number] : 2000 F 23 From: Karine Macias MD PCP: Care Physician,No Primary Status: REG ER Study: Ankle min 3 Views Date of Exam: 10/07/24 Exam# [id number] Ordering Dr: Buddy Doty DO PROCEDURE: ANKLE MIN 3 VIEWS 10/07/2024 REASON FOR EXAM: PAIN TECHNIQUE: ANKLE MIN 3 VIEWS Laterality: Left COMPARISON: None FINDINGS: Bones: No acute bony abnormalities. Joints: The mortise joint is aligned. Soft tissues: Unremarkable. RAD/Ankle min 3 Views IMPRESSION: No acute bony abnormalities. Reading Location: [facility] CC: Buddy Doty DO; No Primary Care Physician Mud Analysis Supervisor: Signed [facility] Emergency Department Summary on 10-07-2024 Emergency Department Summary [facility] Medical Records Department [address] [place] [address] Emergency Department Summary 10/07/24 MR#: [id number] Acct: [id number] Name: LESTER INFANTE Rep #: [id number] : 2000 23 From: Buddy Doty DO PCP: Care Physician,No Primary Status:DEP ER Location: ED HPI History of Present Illness Chief Complaint: Lower Extremity Injury Informant: patient and spouse/S.O. Narrative Narrative: Patient is a 23-year-old female with past medical history of anxiety and depression. She states she rolled her left ankle multiple weeks ago and was seen at the urgent care. She reports the x-ray was negative for fracture but she was having pain so they referred her to podiatry. She states podiatry wanted a MRI to assess for ligament damage. She states her insurance denied this however. She states that this morning she got up to get ready for the day and twisted her left ankle inward once again. She reports pain and swelling associate with a repeat injury and secondary to this comes in for evaluation [facility] Medical History (Updated 10/08/24 @ 01:[address] Buddy Doty, DO) Atrial tachycardia Urinary tract infection affecting Cholestasis during Heart palpitations Gestational diabetes Pre-eclampsia History of migraine History of kidney stones History of pre-eclampsia Anxiety and depression delivery delivered Home Medications ???Medication ???Instructions ???Recorded ???Last Taken ???Type NK 10/07/24 Unknown History Allergy/AdvReac Type Severity Reaction Status Date / Time No Known Allergies Allergy Verified 10/07/24 06:04 Family History Grandfather Hypertension Grandmother Diabetes CVA (cerebral vascular accident) Hypertension Lupus Grandfather Diabetes Myocardial infarction CAD (coronary artery disease) Hypertension Surgical History (Updated 01/16/24 @ 00:02 by Kira Reyna) History of Social History Smoking Status: Never smoker ROS ROS ED Constitutional Constitutional ED: Denies chills or fever(s) ENT ENT ED: Denies sore throat Cardiovascular Cardiovascular: Denies chest pain Respiratory/Chest Respiratory/Chest: Denies cough or dyspnea Gastrointestinal Gastrointestinal: Denies abdominal pain, diarrhea, nausea or vomiting Musculoskeletal Musculoskeletal: Reports other Details: Positive left ankle and foot pain Integumentary Denies Abrasions or rash Neurologic Neurologic: Denies headache(s) or paresthesias Hematologic/Lymphatic Hematologic/Lymphatic: Denies easy bleeding or easy bruising EXAM Physical Exam Const Vital Signs: 10/07/24 06:01 10/07/24 07:26 Temperature 98.4 F 97.8 F Temperature Source Oral Pulse Rate 80 72 Respiratory Rate 16 18 Blood Pressure 148/81 H 147/78 H Blood Pressure Mean 103 101 Pulse Ox 100 99 Oxygen Delivery Method Room Air Positive well nourished, well developed and obese General Appearance ED: well developed; Negative for pallor Nutritional Appearance: obese HEENT HEENT Narrative: Normocephalic atraumatic Eyes PERRL and EOMs intact bilaterally General Eye ED: Negative for scleral icterus Neck supple Resp normal respiratory effort and clear to auscultation bilaterally Cardio regular rate and regular rhythm Extremity Extremity Narrative: Left lower extremity is neurovascularly intact Patient has mild soft tissue swelling along the left lateral malleolus. There is pain with palpation over top the left lateral malleolus as well as just below it. There is also pain with palpation along the lateral aspect of the left foot. However there is no obvious bony deformity or joint effusion. Achilles tendon is intact. Stressing of the ankle ligaments between left and right show mild laxity with anterior posterior drawer testing as well as inversion concerning for grade 2 ankle sprain Remainder of the exam is normal Neuro oriented x3, CN's II-XII intact bilaterally and no sensory deficits noted Sensorium / Orientation: alert Psych mental status grossly normal Skin no rashes or lesions noted and no wounds Skin Narrative: Soft tissue swelling with faint ecchymosis along the lateral aspect of the left ankle as documented above General Skin Exam: Negative for jaundice or pallor MDM MDM MDM Narrative Medical decision making narrative: Patient arrived to the ER mildly hypertensive but otherwise with stable vitals. She reported rolling her left ankle inward after standing up from bed. She did not strike her head or have loss of consciousness she does not take blood thinners or have a history of bleeding disorder. Therefore I felt no need fo (more content not included)... Normal [facility] Foot min 3 Viewson 5 Foot min 3 Views [facility] Imaging Services [address] [place] [address] Foot min 3 Views MR#: [id number] Acct: [id number] Name: LESTER INFANTE Rep #: [id number] : 2000 F 23 From: Karine Macias MD PCP: Care Physician,No Primary Status: REG ER Study: Foot min 3 Views Date of Exam: 10/07/24 Exam# [id number] Ordering Dr: Buddy Doty DO PROCEDURE: FOOT MIN 3 VIEWS 10/07/2024 REASON FOR EXAM: PAIN TECHNIQUE: FOOT MIN 3 VIEWS Laterality: Left COMPARISON: None FINDINGS: Bones: No acute bony abnormalities. Joints: Unremarkable. No dislocation. Soft tissues: Unremarkable. RAD/Foot min 3 Views IMPRESSION: No acute osseous abnormalities. Reading Location: [id number] CC: Buddy Doty DO; No Primary Care Physician Mud Analysis Supervisor: Signed Normal [facility] CNOVon 06-05-2024 CNOV Office Visit (UCWSTR ) ----- LESTER INFANTE ([id number]) 1 F Date Time Provider Department 06/05/24 10:30 AM QUIRINO CRUZ [facility] During your visit today, we recorded the following information about you: Temperature Pulse Respiration Blood pressure 97.4 degrees 72/minute 18/minute 118/66 Weight 131.6 kg Quirino Cruz APRN.SALES REPRESENTATIVE GRAPHIC ART 06/05/2024 10:58 AM Signed Subjective HPI Nontoxic-appearing [...] day her foot is swollen. Is a xghq-ct-[id number] mom has 6 children under the age [...] of care. This note was generated using [employer] software. It may contain errors in wording, punctuation, or spelling. Quirino Cruz APRN.SALES REPRESENTATIVE GRAPHIC ART Allergies As of Date: 06/05/2024 (No Known Allergies) Date Reviewed: 06/05/2024 Reviewed by: Linda Colvin MA - Fully Assessed Reason for Visit: Ankle Injury [1957] Cmt: left ankle and foot pain x 1 month, seen here 2 previous times Primary Visit Diagnosis:Foot pain, left [M79.672] Problem List As Of Date 06/05/2024 Noted Resolved ABSCESS FOOT (EXCEPT TOE)(Right plantar) [L03.*09/01/2005 03/25/2015 Level of Service: OFFICE/OUTPATIENT ESTABLISHED LOW [facility] 20 MIN [52562] Encounter Status:Closed by QUIRINO CRUZ on 06/05/24 Normal [facility] CNOVon 05-14-2024 CNOV Office Visit (UCWSTR ) ----- LESTER INFANTE ([id number]) 1 F Date Time Provider Department 05/14/24 8:45 AM YASMIN SUE [facility] During your visit today, we recorded the following information about you: Temperature Pulse Respiration Blood pressure 97.3 degrees 77/minute 18/minute 102/64 Weight 130.6 kg Yasmin Sue, [place] 05/14/2024 9:44 AM Signed [facility] Subjective Lester Infante is a 23 year [...] Findings from review of outpatient records: Seen 3/6 for similar symptoms/injury Differential Diagnoses - Ankle [...] splint, c (more content not included)... Normal [facility] No Panel Informationon 05-14 IMPRESSION: Soft tis je prominence along the medial malleolus. No acute fractures demonstrated in the left ankle or left foot. Mud Analysis Supervisor: STAN Transcribe Date/Time: May 14 2024 9:28A Dictated by : EDUAR CORTES MD This examination was interpreted and the report reviewed and electronically signed by: EDUAR CORTES MD on May 14 2024 9:36AM [facility] DIVISION OF RADIOLOGY Radiology Study observation (narrative) [facility] No Panel InformationOrdered By: Ccf Provider on 05-14-2024 [facility] XR ANKLE 3V AP/LAT/OBL LTon 05-14-2024 [...] in the left ankle or left foot. Mud Analysis Supervisor: PSCB Transcribe Date/Time: May 14 2024 9:28A Dictated by : EDUAR CORTES MD This examination was interpreted and the report reviewed and electronically signed by: EDUAR CORTES MD on May 14 2024 9:36AM EST [id number] Normal [facility] XR Ankle - left AP and Later [...] the medial malleolus. DIVISION OF RADIOLOGY Provider, [facility] - 05/14/2024 * * *Final Report* * [...] in the left ankle or left foot. Mud Analysis Supervisor: [facility] Transcribe Date/Time: May 14 2024 9:28A Dictated by : EDUAR CORTES MD This examination was interpreted and the report reviewed and electronically signed by: EDUAR CORTES MD on May 14 2024 9:36AM [facility] XR FOOT 3V AP/LAT/OBL LTon 0 05-14-2024 [...] in the left ankle or left foot. Mud Analysis Supervisor: PSCB Transcribe Date/Time: May 14 2024 9:28A Dictated by : EDUAR CORTES MD This examination was interpreted and the report reviewed and electronically signed by: EDUAR CORTES MD on May 14 2024 9:36AM EST [id number] Normal [facility] XR Foot - left AP and Latera [...] the medial malleolus. DIVISION OF RADIOLOGY Provider, [facility] - 05/14/2024 * * *Final Report* * [...] in the left ankle or left foot. Mud Analysis Supervisor: STAN Transcribe Date/Time: May 14 2024 9:28A Dictated by : DEUAR CORTES MD This examination was interpreted and the report reviewed and electronically signed by: EDUAR CORTES MD on May 14 2024 9:36AM EST [facility] CNOVon 04-19-2024 CNOV Office Visit (UCWSTR ) ----- LESTER INFANTE ([id number]) 1 F Date Time Provider Department 04/19/24 9:30 AM NAYE HANCOCK [facility] During your visit today, we recorded the following information about you: Temperature Pulse Respiration Blood pressure 97.8 degrees 77/minute 18/minute 130/83 Weight Last Period 130.7 kg 04/05/24 Naye Hancock APRN.SALES REPRESENTATIVE GRAPHIC ART 04/19/2024 10:40 AM Signed Subjective Patient came in with complaints of left ankle and foot pain. Patient says she rolled her ankle yesterday wearing platform shoes. Patient says that her pinky toe and toe next to it are tingly little bit. Patient denies any other symptoms at this time. The history is provided by the patient. No health care technician was used. Review of Systems Constitutional: Negative. Skin: Negative. Objective Physical Exam Constitutional: Appearance: Normal appearance. Pulmonary: Effort: Pulmonary effort is normal. Musculoskeletal: Feet: Feet: Comments: Patient is tender in the area marked above. No signs of discoloration or deformity. Mild swelling is noted. Circulation and sensation are intact. Patient does have difficulty moving her ankle laterally from [id number]-[id number]. Neurological: Mental Status: She is alert. PAST MEDICAL HISTORY Diagnosis Date History of insulin controlled gestational diabetes mellitus NEGATIVE MEDICAL HISTORY PAST SURGICAL HISTORY Procedure Laterality Date INCISION AND DRAINAGE ABSCESS SIMPLE/SINGLE 7/19/06 Right plantar foot ALLERGIES Patient has no [...] foot. Soft tissue edema about the ankle. Mud Analysis Supervisor: STAN Transcribe Date/Time: Apr 19 2024 10:21A Dictated by : MARKUS SUAREZ MD Patient was educated to alternate Tylenol Motrin rested for a week or 2. Patient was given an Marika wrap for comfort. Patient was agreeable to this care plan and will follow-up with primary care if signs and symptoms seem to be getting worse not better. Naye Hancock APRN.SALES REPRESENTATIVE GRAPHIC ART Allergies As of Date: 04/19/2024 (No Known Allergies) Date Reviewed: 04/19/2024 Reviewed by: Breanne Magaña MA - Fully Assessed Reason for Visit: Ankle Injury [1957] Cmt: L ankle injury x1 day Primary Visit Diagnosis:Pain [R52] Order(s):XR ANKLE GENERAL 3V AP/LAT/OBL LEFT [[id number]] Order #: [id number] FUTURE XR FOOT GENERAL 3V AP/LAT/OBL LEFT [[id number]] Order #: [id number] FUTURE Problem List As Of Date 04/19/2024 Noted Resolved ABSCESS FOOT (EXCEPT TOE)(Right plantar) [L03.*09/01/2005 03/25/2015 Encounter Status:Closed by KARISSANAYE on 04/19/24 Normal [facility] No Panel Informationon 04-19 IMPRESSION: Negative for acute fracture or malalignment of the left ankle or foot. Soft tissue edema about the ankle. Mud Analysis Supervisor: STAN Transcribe Date/Time: Apr 19 2024 10:21A Dictated by : MARKUS SUAREZ MD This examination was interpreted and the report reviewed and electronically signed by: MARKUS SUAREZ MD on Apr 19 2024 10:25AM EST DIVISION OF RADIOLOGY Radiology Study observation (narrative) [facility] No Panel InformationOrdered By: Ccf Provider on 04-19-2024 [facility] XR ANKLE 3V AP/LAT/OBL LTon 04-19-2024 [...] foot. Soft tissue edema about the ankle. Mud Analysis Supervisor: PSCB Transcribe Date/Time: Apr 19 2024 10:21A Dictated by : MARKUS SUAREZ MD This examination was interpreted and the report reviewed and electronically signed by: MARKUS SUAREZ MD on Apr 19 2024 10:25AM EST [id number] Normal [facility] XR Ankle - left AP and Later [...] radiopaque foreign body. DIVISION OF RADIOLOGY Provider, [facility] - 04/19/2024 * * *Final Report* * [...] foot. Soft tissue edema about the ankle. Mud Analysis Supervisor: PSCB Transcribe Date/Time: Apr 19 2024 10:21A Dictated by : MARKUS SUAREZ MD This examination was interpreted and the report reviewed and electronically signed by: MARKUS SUAREZ MD on Apr 19 2024 10:25AM [facility] XR FOOT 3V AP/LAT/OBL LTon 0 [...] foot. Soft tissue edema about the ankle. Mud Analysis Supervisor: STAN Transcribe Date/Time: Apr 19 2024 10:21A Dictated by : MARKUS SUAREZ MD This examination was interpreted and the report reviewed and electronically signed by: MARKUS SUAREZ MD on Apr 19 2024 10:25AM EST [id number] Normal [facility] XR Foot - left AP and Latera [...] radiopaque foreign body. DIVISION OF RADIOLOGY Provider, [facility] - 04/19/2024 * * *Final Report* * [...] foot. Soft tissue edema about the ankle. Mud Analysis Supervisor: STAN Transcribe Date/Time: Apr 19 2024 10:21A Dictated by : MARKUS SUAREZ MD This examination was interpreted and the report reviewed and electronically signed by: MARKUS SUAREZ MD on Apr 19 2024 10:25AM EST [facility] 03[facility]20[facility] ----- LESTER INFANTE ([id number]) 1 F Date Time Provider Department 03/13/24 DIANELYS MARROQUIN [facility] During your visit today, we recorded the following information about you: Dianelys Marroquin APRN.SALES REPRESENTATIVE GRAPHIC ART 03/13/2024 8:26 AM Signed Please advise patient: [...] Encounter Status:Closed by LINDA COLVIN on 03/13/24 [facility] CNOVon 03-12-2024 CNOV Office Visit (UCWSTR ) ----- LESTER INFANTE ([id number]) 1 F Date Time Provider Department 03/12/24 1:45 PM GEORGE MONTES [facility] During your visit today, we recorded the [...] Diagnosis:Influenza-like illness [J11.1] Order(s):XR CHEST 2V FRONTAL/LAT [[id number]] Order #: [id number] FUTURE COVID AND INFLUENZA A/B AND RSV PCR, ROUTINE [[id number]] Order #: [id number]. #:[id number] Problem List As Of Date 03/12/2024 Noted Resolved ABSCESS FOOT (EXCEPT TOE)(Right plantar) [L03.*09/01/2005 03/25/2015 Medications Discontinued During This Encounter Prescriptions - ondansetron HCl (ZOFRAN ORAL) (Discontinued) Reported on 03/12/2024 - vit,alexander 74/iron/folic ( VITAMIN 1+1 ORAL) (Discontinued) Reported on 03/12/2024 - sertraline HCl (ZOLOFT ORAL) (Discontinued) Reported on 01/25/2021 Level of Service: OFFICE/OUTPATIENT ESTABLISHED LOW [facility] 20 MIN [30436] Encounter Status:Closed by GEORGE MONTES on 03/12/24 Normal [facility] COVID AND INFLUENZA A/B AND RSV PCR, ROUTINEon 03-12-2024 SARS-CoV-2 (COVID-19) RNA JULIANNE+probe Ql (Unsp spec) SARS-COV-2 (AGENT OF COVID-19) RNA: Not detected INFLUENZA A RNA: Detected INFLUENZA B RNA: Not detected RESPIRATORY SYNCYTIAL VIRUS (RSV) RNA: Not detected Abnormal [facility] Comment on above: Performed By: #### C VFLRS ####[facility] [id number] [place] [address] [place] XR CHEST 2V FRONTAL/LATon XR [...] tissues: Unremarkable. IMPRESSION: No acute radiographic abnormality. Mud Analysis Supervisor: STAN Transcribe Date/Time: Mar 12 2024 2:31P Dictated by : KARISSA CASTELLANO MD This examination was interpreted and the report reviewed and electronically signed by: KARISSA CASTELLANO MD on Mar 12 2024 2:32PM EST [id number] Normal [facility] XR Chest PA and Lateralon IMPRESSION: No acute radiographic abnormality. Mud Analysis Supervisor: PSCB Transcribe Date/Time: Mar 12 2024 2:31P Dictated [...] soft tissues: Unremarkable. DIVISION OF RADIOLOGY Provider, [facility] - 03/12/2024 * * *Final Report* * [...] Unremarkable. IMPRESSION IMPRESSION: No acute radiographic abnormality. Mud Analysis Supervisor: PSCB Transcribe Date/Time: Mar 12 2024 2:31P Dictated by : KARISSA CASTELLANO MD This examination was interpreted and the report reviewed and electronically signed by: KARISSA CASTELLANO MD on Mar 12 2024 2:32PM EST [facility] Radiology Study observation (narrative) [facility] XR Chest PA and LateralOrder ed By: Ccf Provider on 03-12-2024 [facility] HIV - WCHon 01-16-2024 HIV Non-Reactive Normal Nonreactive [facility] Comment on above: Order Comment: PLEAS E CALL RESULT TO [facility] Easy[employer] @ [id number] OR [id number] Performed By: #### L 3890.6300, L3890.6100, L3890.6005 #### [facility] [address] [place], [place], [id number] Hepatitis B Surface Antigeno n 01-16-2024 HEP B Surf Ag Non-Reactive Normal Nonreactive [facility] Comment on above: Order Comment: PLEAS E CALL RESULT TO [facility] NPM @ [id number] OR [id number] Performed By: #### L 3890.6300, L3890.6100, L3890.6005 #### [facility] [address] [place], [place], [id number] Hepatitis C Antibodyon 01-15 Hepatitis C AB Non-Reactive Normal Nonreactive [facility] Comment on above: Order Comment: PLEAS E CALL RESULT TO [facility] NPM @ [id number] OR [id number] Result Comment: Non Reactive: < 0.8 Equivocal: >/= 0.8 to < 1.0 Reactive: >/= 1.0 The CDC requires that a reactive/equivocal HCV antibody result be sent out for confirmation. HCV Quant by PCR testing. Performed By: #### L 3890.6300, L3890.6100, L3890.6005 #### [facility] [address] [place], [place], [address] CBC-Complete Blood Cnt No Di ffon 01-09-2024 HCT Normal 37-47 [facility] Comment on above: Order Comment: Comme nts: Day #1 Reason for Laboratory Test Result Comment: Canc elled via OM: Order cancelled - Patient discharged Performed By: #### L 100.0500 #### [facility] [address] [place], [address] HGB Normal 12.0-15.0 [facility] Comment on above: Order Comment: Comme nts: Day #1 Reason for Laboratory Test Result Comment: Canc elled via OM: Order cancelled - Patient discharged Performed By: #### L 100.0500 #### [facility] [address] [place], [address] MCH Normal 27.0-32.0 [facility] Comment on above: Order Comment: Comme nts: Day #1 Reason for Laboratory Test Result Comment: Canc elled via OM: Order cancelled - Patient discharged Performed By: #### L 100.0500 #### [facility] [address] [place], [address] MCHC Normal 32-36 [facility] Comment on above: Order Comment: Comme nts: Day #1 Reason for Laboratory Test Result Comment: Canc elled via OM: Order cancelled - Patient discharged Performed By: #### L 100.0500 #### [facility] [address] [place], [address] MCV Normal 81-99 [facility] Comment on above: Order Comment: Comme nts: Day #1 Reason for Laboratory Test Result Comment: Canc elled via OM: Order cancelled - Patient discharged Performed By: #### L 100.0500 #### [facility] [address] [place], [address] PLT Normal 150-450 [facility] Comment on above: Order Comment: Comme nts: Day #1 Reason for Laboratory Test Result Comment: Canc elled via OM: Order cancelled - Patient discharged Performed By: #### L 100.0500 #### [facility] [address] [place], [address] RBC Normal 4.2-5.4 [facility] Comment on above: Order Comment: Comme nts: Day #1 Reason for Laboratory Test Result Comment: Canc elled via OM: Order cancelled - Patient discharged Performed By: #### L 100.0500 #### [facility] [address] [place], [address] RDW CV Normal 11.6-14.6 [facility] Comment on above: Order Comment: Comme nts: Day #1 Reason for Laboratory Test Result Comment: Canc elled via OM: Order cancelled - Patient discharged Performed By: #### L 100.0500 #### [facility] [address] [facility] [address] RDW SD Normal 35.1-43.9 [facility] Comment on above: Order Comment: Comme nts: Day #1 Reason for Laboratory Test Result Comment: Canc elled via OM: Order cancelled - Patient discharged Performed By: #### L 100.0500 #### [facility] [address] [place], [address] WBC Normal 4.4-11.0 [facility] Comment on above: Order Comment: Comme nts: Day #1 Reason for Laboratory Test Result Comment: Canc elled via OM: Order cancelled - Patient discharged Performed By: #### L 100.0500 #### [facility] [address] [place], [address] Progress Noteon 01-09-2024 Bobbin Trucker Authentication Interface Message Text Pt delivered 01/08/24 34 6/7 weeks Normal [facility] Urine Cultureon 01-09-2024 [facility] Mixed Gram Positive Organisms [place] Count 50,000-80,000 MIXC Mixed contaminants. Submit a new specimen if indicated. Normal [facility] Comment on above: Performed By: #### L 509.4005, L509.8000 #### [facility] [address] [place], [address] 12 Lead EKGon 01-08-2024 12 Lead EKG [facility] Cardiovascular Services [address] [place] [address] 12 Lead EKG 01/08/24 0704 MR#: [id number] Acct: [id number] Name: LESTER INFANTE Rep #: [id number] : 2000 23 From: Ena Lucas MD [...] 34 bpm Confirmed by Ena Lucas ([id number]), image editor ABIMBOLA PONCE ([id number]) on 01/09/2024 9:57:55 AM Referred By: Elizabeth Farooq Confirmed By: Ena Lucas 01/09/24 0957 Date Ena Lucas MD CC: Dr. Elizabeth Farooq MD; No Primary Care Physician Signed Normal [facility] Bedside Glucoseon 01-08-2024 FINGERSTICK GLU 92 mg/dL Normal 74-106 [facility] Comment on above: Result Comment: ALMA GEMENT OF PATIENT CARE PER NURSING PROTOCOL Performed By: #### L 509.4005, L509.8000 #### [facility] [address] [place], [address] FINGERSTICK GLU 103 mg/dL Normal 74-106 [facility] Comment on above: Result Comment: ALMA GEMENT OF PATIENT CARE PER NURSING PROTOCOL Performed By: #### L 505.5000 #### [facility] [address] [place], [address] CBC W/Diff, Automatedon 11-2 -2023 Absolute Lymph 2.04 X10 3/uL Normal 0.83-4.51 [facility] Comment on above: Performed By: #### L 505.5000 #### [facility] [address] [place], [address] Absolute Neut 4.2 X10 3/uL Normal 2.0-7.7 [facility] Comment on above: Performed By: #### L 505.5000 #### [facility] [address] [place], [address] Basophils/100 WBC (Bld) 0.4 % Normal 0-1 [facility] Comment on above: Performed By: #### L 505.5000 #### [facility] [place], [address] Eosinophils/100 WBC (Bld) 2.4 % Normal 0-5 [facility] Comment on above: Performed By: #### L 505.5000 #### [facility] [address] [place], [address] Erythrocyte distribution width (RBC) [Ratio] 14.5 % Normal 11.6-14.6 [facility] Comment on above: Performed By: #### L 505.5000 #### [facility] [address] [place], [address] Hematocrit (Bld) [Volume fraction] 32.9 % Low 37-47 [facility] Comment on above: Performed By: #### L 505.5000 #### [facility] [address] [place], [address] Hemoglobin (Bld) [Mass/Vol] 10.5 g/dL Low 12.0-15.0 [facility] Comment on above: Performed By: #### L 505.5000 #### [facility] [address] [place], [address] IG% 0.800 Normal 0.0-0.9 [facility] Comment on above: Result Comment: IG% - Immature Granulocytes (promyelocytes, myelocytes and metamyelocytes) > 1% indicates that a LEFT SHIFT is Present. Performed By: #### L 505.5000 #### [facility] [address] [place], [address] Lymphocytes/100 WBC (Bld) 28.5 % Normal 19-41 [facility] Comment on above: Performed By: #### L 505.5000 #### [facility] [address] [place], [address] MCH (RBC) [Entitic mass] 24.4 pg Low 27.0-32.0 [facility] Comment on above: Performed By: #### L 505.5000 #### [facility] [address] [place], [address] MCHC (RBC) [Mass/Vol] 31.9 g/dL Low 32-36 [facility] Comment on above: Performed By: #### L 505.5000 #### [facility] [address] [place], [address] MCV (RBC) [Entitic vol] 76.3 fL Low 81-99 [facility] Comment on above: Performed By: #### L 505.5000 #### [facility] [address] [place], [address] Monocytes/100 WBC (Bld) 9.3 % Normal 0-10 [facility] Comment on above: Performed By: #### L 505.5000 #### [facility] [address] [place], [address] Neutrophils/100 WBC (Bld) 58.6 % Normal 47-70 [facility] Comment on above: Performed By: #### L 505.5000 #### [facility] [address] [place], [address] Nucleated RBC (Bld) [#/Vol] 0 10*3/uL Normal 0-5 [facility] Comment on above: Performed By: #### L 505.5000 #### [facility] [address] [place], [address] Platelet mean volume (Bld) [Entitic vol] 12.3 fL High 6.2-12.0 [facility] Comment on above: Performed By: #### L 505.5000 #### [facility] [address] [place], [address] Platelets (Bld) [#/Vol] 130 10*3/uL Low 150-450 [facility] Comment on above: Performed By: #### L 505.5000 #### [facility] [address] [place], [address] RBC (Bld) [#/Vol] 4.31 10*6/uL Normal 4.2-5.4 [facility] Comment on above: Performed By: #### L 505.5000 #### [facility] [address] [place], [address] RDW SD 39.8 fl Normal 35.1-43.9 [facility] Comment on above: Performed By: #### L 505.5000 #### [facility] [address] [place], [address] WBC (Bld) [#/Vol] 7.2 10*3/uL Normal 4.4-11.0 [facility] Comment on above: Performed By: #### L 505.5000 #### [facility] [address] [place], [address] Absolute Neut Normal 2.0-7.7 [facility] Comment on above: Result Comment: Canc elled via OM: Duplicate Order Performed By: #### L 509.4005, L509.8000 #### [facility] [address] [place], [address] HCT Normal 37-47 [facility] Comment on above: Result Comment: Canc elled via OM: Duplicate Order Performed By: #### L 509.4005, L509.8000 #### [facility] [address] [place], [address] HGB Normal 12.0-15.0 [facility] Comment on above: Result Comment: Canc elled via OM: Duplicate Order Performed By: #### L 509.4005, L509.8000 #### [facility] [address] [place], [address] MCH Normal 27.0-32.0 [facility] Comment on above: Result Comment: Canc elled via OM: Duplicate Order Performed By: #### L 509.4005, L509.8000 #### [facility] [address] [place], [address] MCHC Normal 32-36 [facility] Comment on above: Result Comment: Canc elled via OM: Duplicate Order Performed By: #### L 509.4005, L509.8000 #### [facility] [address] [place], [address] MCV Normal 81-99 [facility] Comment on above: Result Comment: Canc elled via OM: Duplicate Order Performed By: #### L 509.4005, L509.8000 #### [facility] [address] [place], [address] NEUT% Normal 47-70 [facility] Comment on above: Result Comment: Canc elled via OM: Duplicate Order Performed By: #### L 509.4005, L509.8000 #### [facility] [address] [place], [address] PLT Normal 150-450 [facility] Comment on above: Result Comment: Canc elled via OM: Duplicate Order Performed By: #### L 509.4005, L509.8000 #### [facility] [address] [place], [address] RBC Normal 0-5 [facility] Comment on above: Result Comment: Canc elled via OM: Duplicate Order Performed By: #### L 509.4005, L509.8000 #### [facility] [address] [place], [address] Order Comment: COLLE CTOR TO SPECIFY Result Comment: Canc elled via OM: MD Ordered RDW CV Normal 11.6-14.6 [facility] Comment on above: Result Comment: Canc elled via OM: Duplicate Order Performed By: #### L 509.4005, L509.8000 #### [facility] [address] [place], [address] RDW SD Normal 35.1-43.9 [facility] Comment on above: Result Comment: Canc elled via OM: Duplicate Order Performed By: #### L 509.4005, L509.8000 #### [facility] [address] [place], [address] WBC Normal 0-5 [facility] Comment on above: Result Comment: Canc elled via OM: Duplicate Order Performed By: #### L 509.4005, L509.8000 #### [facility] [address] [place], [address] Order Comment: COLLE CTOR TO SPECIFY Result Comment: Canc elled via OM: Ordered Comprehensive Metabolic Prof jonathan 01-08-2024 Albumin [Mass/Vol] 2.6 g/dL Low 3.2-5.0 [facility] Comment on above: Performed By: #### L 3890.6300, L3890.6100, L3890.6005 #### [facility] [address] [place], [address] Albumin/Globulin [Mass ratio] 0.7 {ratio} Low 0.9-2.4 [facility] Comment on above: Performed By: #### L 3890.6300, L3890.6100, L3890.6005 #### [facility] [address] [place], [address] ALK P 198 U/L High 45-117 [facility] Comment on above: Performed By: #### L 3890.6300, L3890.6100, L3890.6005 #### [facility] [address] [place], [address] ALT [Catalytic activity/Vol] 23 U/L Normal 13-56 [facility] Comment on above: Performed By: #### L 3890.6300, L3890.6100, L3890.6005 #### [facility] [address] [place], [address] AST [Catalytic activity/Vol] 16 U/L Normal 15-37 [facility] Comment on above: Performed By: #### L 3890.6300, L3890.6100, L3890.6005 #### [facility] [address] [place], [address] Bilirubin [Mass/Vol] 0.50 mg/dL Normal 0.20-1.00 [facility] Comment on above: Result Comment: For patients on eltrombopag therapy, use of Dimension [place] TBIL is not recommended. Performed By: #### L 3890.6300, L3890.6100, L3890.6005 #### [facility] [address] [place], [address] BUN/CRE 7.6 RATIO Low 10-20 [facility] Comment on above: Performed By: #### L 3890.6300, L3890.6100, L3890.6005 #### [facility] [address] [place], [address] CA,Total 9.0 mg/dL Normal 8.5-10.1 [facility] Comment on above: Performed By: #### L 3890.6300, L3890.6100, L3890.6005 #### [facility] [address] [place], [address] Chloride [Moles/Vol] 107 mmol/L Normal 98-107 [facility] Comment on above: Performed By: #### L 3890.6300, L3890.6100, L3890.6005 #### [facility] [address] [place], [address] CO2 [Moles/Vol] 22.0 mmol/L Normal 21.0-32.0 [facility] Comment on above: Performed By: #### L 3890.6300, L3890.6100, L3890.6005 #### [facility] [address] [place], [address] Creatinine [Mass/Vol] 0.66 mg/dL Normal 0.55-1.02 [facility] Comment on above: Result Comment: The validity of the calculated GFR GFRAA in patients over 70 years has not been determined. Clinical correlation is essential. Performed By: #### L 3890.6300, L3890.6100, L3890.6005 #### [facility] [address] [place], [address] ECRCL 175.31 ml/min Normal [facility] Comment on above: Performed By: #### L 3890.6300, L3890.6100, L3890.6005 #### [facility] [address] [place], [address] EST GFR - AA 143 mL/min Normal >60 [facility] Comment on above: Result Comment: Afri can Icelandic GFR Calc Performed By: #### L 3890.6300, L3890.6100, L3890.6005 #### [facility] [address] [place], [address] GAP 11 Normal 5-15 [facility] Comment on above: Performed By: #### L 3890.6300, L3890.6100, L3890.6005 #### [facility] [address] [place], [address] GFR/1.73 sq M.predicted among non-blacks MDRD (S/P/Bld) [Vol rate/Area] 118 mL/min/{1.73_m2} Normal >60 [facility] Comment on above: Result Comment: Non- GFR Calc Performed By: #### L 3890.6300, L3890.6100, L3890.6005 #### [facility] [address] [place], [address] Globulin (S) [Mass/Vol] 3.8 g/dL Normal 2.2-4.2 [facility] Comment on above: Performed By: #### L 3890.6300, L3890.6100, L3890.6005 #### [facility] [address] [place], [address] Glucose [Mass/Vol] 107 mg/dL High 74-106 [facility] Comment on above: Result Comment: Fast ing Glucose result from 100 to 125 mg/dL suggests IMPAIRED HOMEOSTASIS per A.D.A. criteria. Performed By: #### L 3890.6300, L3890.6100, L3890.6005 #### [facility] [address] [place], [address] Potassium [Moles/Vol] 3.7 mmol/L Normal 3.5-5.1 [facility] Comment on above: Performed By: #### L 3890.6300, L3890.6100, L3890.6005 #### [facility] [address] [place], [address] Sodium [Moles/Vol] 139 mmol/L Normal 136-145 [facility] Comment on above: Performed By: #### L 3890.6300, L3890.6100, L3890.6005 #### [facility] [address] [place], [address] T PROT 6.4 g/dL Normal 6.4-8.2 [facility] Comment on above: Performed By: #### L 3890.6300, L3890.6100, L3890.6005 #### [facility] [address] [place], [address] Urea nitrogen [Mass/Vol] 5 mg/dL Low 7-18 [facility] Comment on above: Performed By: #### L 3890.6300, L3890.6100, L3890.6005 #### [facility] [address] [place], [address] Discharge Instructionon 12-16 Discharge Instruction [facility] Medical Records Department [address] [place] [address] Instructions for Home/Discharge Instructions 01/08/24 0454 MR#: [id number] Acct: [id number] Name: NARESHLESTER GONZALEZ Rep #: [id number] : 2000 23 From: Elizabeth Farooq MD [...] Up With: Elizabeth Farooq MD When: Call [phone] to make an appointment for an incision check in 1-2 weeks. Test Results: Test results from this visit will be discussed in further detail at your follow-up appointment, if applicable. Discharge Plan Admission Admit Date/Time: 01/08/24 04:05 Attending Provider: Elizabeth Farooq Primary Care Provider: Care PhysicianMarilia Primary Discharge Orders/Prescriptions Prescriptions: New oxycodone-acetaminophen [Percocet] [...] at HS Referrals / Follow Up: Care Physician,No Primary [Primary Care Provider] - 01/08/24 1057 Elizabeth Farooq MD CC: No Primary Care Physician Signed Normal [facility] Fibrinogenon 01-08-2024 FIBRINOGEN 414 mg/dl Normal 203-444 [facility] Comment on above: Performed By: #### L 438.8689 #### [facility] [address] [place], [address] H AND P Exam - OB/GYNon 12-16 H&P Exam - LOMBARDI DEVELOPER [facility] Medical Records Department [address] [place] [address] H P Exam - LOMBARDI DEVELOPER 01/08/24 0430 MR#: [id number] Acct: [id number] Name: LESTER INFANTE Rep #: [id number] : 2000 23 From: Elizabeth Farooq MD PCP: Care Physician,No Primary Status:ADM IN Location: [id number] HPI - General General Date of Admission: [...] Dr Singh and was planning delivery at [place] in [place]. Maternal Data Information YOANDY Calculator Estimated Delivery Date Method Current WG Current Estimate 02/14/24 Manual 34w 5d PFSH PFSH Medical History (Updated 01/08/24 @ 04:39 by [...] mucous membranes (more content not included)... Normal [facility] HIV - WCHon 01-08-2024 HIV Non-Reactive Normal Nonreactive [facility] Comment on above: Performed By: #### L 509.4005, L509.8000 #### [facility] [address] [place], [address] Hepatitis B Surface Antigeno n 01-08-2024 HEP B Surf Ag Non-Reactive Normal Nonreactive [facility] Comment on above: Order Comment: Reaso n for Exam: c/s Performed By: #### L 509.4005, L509.8000 #### [facility] [address] [place], [address] Hepatitis C Antibodyon 01-07 Hepatitis C AB Non-Reactive Normal Nonreactive [facility] Comment on above: Order Comment: Reaso n for Exam: c/s Result Comment: Non Reactive: < 0.8 Equivocal: >/= 0.8 to < 1.0 Reactive: >/= 1.0 The CDC requires that a reactive/equivocal HCV antibody result be sent out for confirmation. HCV Quant by PCR testing. Performed By: #### L 509.4005, L509.8000 #### [facility] [address] [place], [address] L509.8000on 01-08-2024 Syphilis Abs Non-Reactive Normal [facility] Comment on above: Performed By: #### L 509.4005, L509.8000 #### [facility] [address] [place], [address] Syphilis Abs Non-Reactive Normal [facility] Comment on above: Performed By: #### L 509.4005, L509.8000 #### [facility] [address] [place], [address] Operative Reporton Operative Report [facility] Medical Records Department [address] [place] [address] Operative Report 01/08/24 0447 MR#: [id number] Acct: [id number] Name: LESTER INFANTE Rep #: [id number] : 2000 23 From: Elizabeth Farooq MD PCP: Care Physician,No Primary Status:ADM IN Location: [id number] Assessment Plan (1) Sterilization: COMMENT: title 19 form received (2) 34 weeks gestation of : (3) Gestational diabetes requiring insulin: (4) Cholestasis: (5) Previous delivery affecting : COMMENT: x5 (6) Abdominal pain during in third trimester: (7) labor in third trimester: (8) History of pre-eclampsia: (9) Status post bilateral salpingectomy: (10) delivery delivered: COMMENT: RLTCS BS 34 weeks care at [facility]. suspected uterine rupture Maternal Data Information YOANDY [...] shoulders without complication the rest of the infant delivered. The cord was clamped and cut and the infant was handed off to awaiting nurse. The [...] Description: 3 Vessels Delayed Cord Clamping: Yes Well Driller support technician: Yes Trim Setter: Apurva Boland Tasks completed by culinary assistant: Opening closing, Retracting and Other (Assisting with delivery of the ) Additional assistant spa director?: No Complications Complications: No Admit VTE Documentation VTE Present on Admission: No VTE Mechan Device Prophylaxis: SCD's Multi Select Codes Urinary/Genital Urinary/Genital CPT Codes: 11755 C/S+[place] [address] delivery+PP Care([facility]) 01/08/24 1056 Cosigner Signature (if applicable): (more content not included)... Normal [facility] Pathology Specimen OBon 12-16 PATH. Spec OB SEE PATHOLOGY REPORT Normal [facility] Comment on above: Order Comment: Comme nts: suture in right tube Send Specimen For (Specify): Studies @ [facility] Lab:Routine Time of Procedure: 0600 Date of Procedure: 01/08/24 Reason specimen being sent to pathology (Hx/complications): routine Type of specimen: Fallopian Tube Type of procedure performed: Repeat Section Result Comment: Spec imen submitted to Anatomical Pathology Department for testing. Performed By: #### L 350.1800 #### [facility] [address] [place], [place], [address] Rubella IgGon 01-08-2024 Rubella IgG Reactive Normal Nonreactive [facility] Comment on above: Result Comment: Anti body Results Interpretation of Immune Status Non Reactive Presumed Non-Immune Equivocal Equivocal Reactive Presumed Immune Performed By: #### L 509.4005, L509.8000 #### [facility] [address] [place], [place], [id number] Surgery Specimen Level IIon 01-08-2024 Surgery Specimen Level II Patient Age/Sex Location Account Attending Physician LESTER INFANTE WP [id number] Dr. Elizabeth Farooq MD Specimen: [id number] Received: 01/08/24 Status: [place] Santos Num: [id number] Spec Type: FALL TUBES Subm Dr: Dr. Elizabeth Farooq MD HEADER OPERATION: Repeat section PRE-OP DIAGNOSIS: Delivery TISSUE SUBMITTED: Bilateral fallopian tubes- suture in right MICROSCOPIC DIAGNOSIS Right fallopian tube, salpingectomy: Complete segment of fallopian tube with no pathologic change. Left fallopian tube, salpingectomy: Complete segment of fallopian tube with no pathologic change. Benign paratubal cyst. AM:mr 01/10/2024 MICROSCOPIC DESCRIPTION Slides are reviewed. GROSS [...] fimbriated ends. No mass lesions are identified. Workers' Compensation Claims Supervisor sections are submitted in two cassettes as follows: 1 - right fallopian tube, 2 - left fallopian tube and left paratubal cyst. / AM:mr 01/09/2024 TC: CPT: 22585,14778 Patient Age/Sex Location Account Attending Physician LESTER INFANTE [id number] Dr. Elizabeth Farooq MD Signed (signature on file) Dr. Navarro Ysot DO 01/10/24 1403 Normal [facility] Comment on above: Performed By: #### L 505.5000 #### [facility] [address] [place], [id number] Type AND Screenon 01-08-2024 ABO and Rh group Nom (Bld) Blood group B Rh(D) positive Normal [facility] Comment on above: Order Comment: Labor Performed By: #### L 505.5000 #### [facility] [address] [place], [address] Ur Drg Scn w/Rflx AMPH Confi rmon 01-08-2024 Amphetamines Ql (U) Normal <1000 ng/mL [facility] Comment on above: Result Comment: Canc elled via OM: MD Ordered Performed By: #### L 509.4005, L509.8000 #### [facility] [address] [place], [address] BARBITIURATES Normal < 200 ng/mL [facility] Comment on above: Result Comment: Canc elled via OM: MD Ordered Performed By: #### L 509.4005, L509.8000 #### [facility] [address] [place], [address] BENZODIAZIPINE Normal < 200 ng/mL [facility] Comment on above: Result Comment: Canc elled via OM: MD Ordered Performed By: #### L 509.4005, L509.8000 #### [facility] [address] [place], [address] Cocaine Ql (U) Normal < 300 ng/mL [facility] Comment on above: Result Comment: Canc elled via OM: MD Ordered Performed By: #### L 509.4005, L509.8000 #### [facility] [address] [place], [address] DRUG CONFIRM Normal [facility] Comment on above: Result Comment: Canc elled via OM: MD Ordered Performed By: #### L 509.4005, L509.8000 #### [facility] [address] [place], [address] ECSTACY Normal < 500 ng/mL [facility] Comment on above: Result Comment: Canc elled via OM: MD Ordered Performed By: #### L 509.4005, L509.8000 #### [facility] [address] [place], [address] Methadone Ql (U) Normal < 300 ng/mL [facility] Comment on above: Result Comment: Canc elled via OM: MD Ordered Performed By: #### L 509.4005, L509.8000 #### [facility] [address] [place], [address] Opiates Ql (U) Normal < 300 ng/mL [facility] Comment on above: Result Comment: Canc elled via OM: MD Ordered Performed By: #### L 509.4005, L509.8000 #### [facility] [address] [place], [address] PCP Normal < 25 ng/mL [facility] Comment on above: Result Comment: Canc elled via OM: MD Ordered Performed By: #### L 509.4005, L509.8000 #### [facility] [address] [place], [address] THC Normal < 50 ng/mL [facility] Comment on above: Result Comment: Canc elled via OM: MD Ordered Performed By: #### L 509.4005, L509.8000 #### [facility] [address] [place], [address] VISTA UDS PH Normal [facility] Comment on above: Result Comment: Canc elled via OM: MD Ordered Performed By: #### L 509.4005, L509.8000 #### [facility] [address] [place], [address] Urinalysis, Completeon 01-07 BACTERIA Normal None Seen [facility] Comment on above: Order Comment: COLLE CTOR TO SPECIFY Result Comment: Canc elled via OM: MD Ordered Performed By: #### L 509.4005, L509.8000 #### [facility] [address] [place], [address] BILIRUBIN URINE Normal Negative [facility] Comment on above: Order Comment: COLLE CTOR TO SPECIFY Result Comment: Canc elled via OM: MD Ordered Performed By: #### L 509.4005, L509.8000 #### [facility] [address] [place], [address] Clarity (U) Normal Clear [facility] Comment on above: Order Comment: COLLE CTOR TO SPECIFY Result Comment: Canc elled via OM: MD Ordered Performed By: #### L 509.4005, L509.8000 #### [facility] [address] [place], [address] Color (U) Normal Yellow [facility] Comment on above: Order Comment: COLLE CTOR TO SPECIFY Result Comment: Canc elled via OM: MD Ordered Performed By: #### L 509.4005, L509.8000 #### [facility] [address] [place], [address] EPI,SQUAMOUS Normal 5-10 [facility] Comment on above: Order Comment: COLLE CTOR TO SPECIFY Result Comment: Canc elled via OM: MD Ordered Performed By: #### L 509.4005, L509.8000 #### [facility] [address] [place], [address] GLUCOSE, UR Normal Normal [facility] Comment on above: Order Comment: COLLE CTOR TO SPECIFY Result Comment: Canc elled via OM: MD Ordered Performed By: #### L 509.4005, L509.8000 #### [facility] [address] [place], [address] KETONE UR Normal Negative [facility] Comment on above: Order Comment: COLLE CTOR TO SPECIFY Result Comment: Canc elled via OM: MD Ordered Performed By: #### L 509.4005, L509.8000 #### [facility] [address] [place], [address] LEUK ESTERASE Normal Negative [facility] Comment on above: Order Comment: COLLE CTOR TO SPECIFY Result Comment: Canc elled via OM: MD Ordered Performed By: #### L 509.4005, L509.8000 #### [facility] [address] [place], [address] Mucus Ql (Urine sed) Normal [facility] Comment on above: Order Comment: COLLE CTOR TO SPECIFY Result Comment: Canc elled via OM: MD Ordered Performed By: #### L 509.4005, L509.8000 #### [facility] [address] [place], [address] Nitrite Ql (U) Normal Negative [facility] Comment on above: Order Comment: COLLE CTOR TO SPECIFY Result Comment: Canc elled via OM: MD Ordered Performed By: #### L 509.4005, L509.8000 #### [facility] [address] [place], [address] OCCULT BLOOD-UR Normal Negative [facility] Comment on above: Order Comment: COLLE CTOR TO SPECIFY Result Comment: Canc elled via OM: MD Ordered Performed By: #### L 509.4005, L509.8000 #### [facility] [address] [place], [address] pH UR Normal 5.0 - 8.0 [facility] Comment on above: Order Comment: COLLE CTOR TO SPECIFY Result Comment: Canc elled via OM: MD Ordered Performed By: #### L 509.4005, L509.8000 #### [facility] [address] [place], [address] PROT DIPSTX Normal Negative [facility] Comment on above: Order Comment: COLLE CTOR TO SPECIFY Result Comment: Canc elled via OM: MD Ordered Performed By: #### L 509.4005, L509.8000 #### [facility] [address] [place], [address] SP.GR. DIPSTX Normal 1.002-1.030 [facility] Comment on above: Order Comment: COLLE CTOR TO SPECIFY Result Comment: Canc elled via OM: MD Ordered Performed By: #### L 509.4005, L509.8000 #### [facility] [address] [place], [address] UR Preservative Normal [facility] Comment on above: Order Comment: KORIN PUENTEOR TO SPECIFY Result Comment: Canc elled via OM: MD Ordered Performed By: #### L 509.4005, L509.8000 #### [facility] [address] [place], [address] UROBILI Normal Normal [facility] Comment on above: Order Comment: KORIN CTOR TO SPECIFY Result Comment: Canc elled via OM: MD Ordered Performed By: #### L 509.4005, L509.8000 #### [facility] [address] [place], [address] Urinalysis, Routine (Dipstic k)on 01-08-2024 BILIRUBIN URINE Negative Normal Negative [facility] Comment on above: Order Comment: KORIN PUENTEOR TO SPECIFY Performed By: #### L 400.2010 #### [facility] [address] [place], [address] Clarity (U) Cloudy Normal Clear [facility] Comment on above: Order Comment: KORIN PUENTEOR TO SPECIFY Performed By: #### L 400.2010 #### [facility] [address] [place], [address] Color (U) Yellow Normal Yellow [facility] Comment on above: Order Comment: KORIN PUENTEOR TO SPECIFY Performed By: #### L 400.2010 #### [facility] [address] [place], [address] GLUCOSE, UR Normal Normal Normal [facility] Comment on above: Order Comment: KORIN PUENTEOR TO SPECIFY Performed By: #### L 400.2010 #### [facility] [address] [place], [address] KETONE UR 15 mg/dl Abnormal Negative [facility] Comment on above: Order Comment: COLLE CTOR TO SPECIFY Performed By: #### L 400.2010 #### [facility] [address] [place], [address] LEUK ESTERASE 500 /ul Abnormal Negative [facility] Comment on above: Order Comment: COLLE CTOR TO SPECIFY Performed By: #### L 400.2010 #### [facility] [address] [place], [address] Nitrite Ql (U) Negative Normal Negative [facility] Comment on above: Order Comment: COLLE CTOR TO SPECIFY Performed By: #### L 400.2010 #### [facility] [address] [place], [address] OCCULT BLOOD-UR 10 /ul Abnormal Negative [facility] Comment on above: Order Comment: COLLE CTOR TO SPECIFY Performed By: #### L 400.2010 #### [facility] [address] [place], [address] pH UR 6.0 Normal 5.0 - 8.0 [facility] Comment on above: Order Comment: KORIN CTOR TO SPECIFY Performed By: #### L 400.2010 #### [facility] [address] [place], [address] PROT DIPSTX 30 mg/dl Abnormal Negative [facility] Comment on above: Order Comment: COLLE CTOR TO SPECIFY Performed By: #### L 400.2010 #### [facility] [address] [place], [address] SP.GR. DIPSTX 1.025 Normal 1.002-1.030 [facility] Comment on above: Order Comment: COLLE CTOR TO SPECIFY Performed By: #### L 400.2010 #### [facility] [address] [place], [address] UROBILI 4 mg/dl Abnormal Normal [facility] Comment on above: Order Comment: COLLE CTOR TO SPECIFY Performed By: #### L 400.2010 #### [facility] [address] [place], [address] Urine Drug Screen (VISTA)on 01-08-2024 AMPHETAMINES Negative Normal <1000 ng/mL [facility] Comment on above: Performed By: #### L 505.5000 #### [facility] [address] [place], [address] BARBITIURATES Negative Normal < 200 ng/mL [facility] Comment on above: Performed By: #### L 505.5000 #### [facility] [address] [place], [address] BENZODIAZIPINE Negative Normal < 200 ng/mL [facility] Comment on above: Performed By: #### L 505.5000 #### [facility] [address] [place], [address] COCAINE Negative Normal < 300 ng/mL [facility] Comment on above: Performed By: #### L 505.5000 #### [facility] [address] [place], [address] ECSTACY Negative Normal < 500 ng/mL [facility] Comment on above: Performed By: #### L 505.5000 #### [facility] [address] [place], [address] METHADONE Negative Normal < 300 ng/mL [facility] Comment on above: Performed By: #### L 505.5000 #### [facility] [address] [place], [address] OPIATES Negative Normal < 300 ng/mL [facility] Comment on above: Performed By: #### L 505.5000 #### [facility] [address] [place], [address] PCP Negative Normal < 25 ng/mL [facility] Comment on above: Performed By: #### L 505.5000 #### [facility] [address] [place], [place], [address] THC Negative Normal < 50 ng/mL [facility] Comment on above: Performed By: #### L 505.5000 #### [facility] [address] [place], [address] VISTA UDS PH 5 Normal [facility] Comment on above: Performed By: #### L 505.5000 #### [facility] [address] [place], [address] BILEon 01-04-2024 Chenodeoxycholate 1.2 umol/l Normal [facility] Comment on above: Result Comment: Refe rence Range: All Ages: <5.8 Performed By: #### G FR, ANEU, CBC, LD, CMP, ADIFF #### [address] [address] Cholate 1.6 umol/l Normal [facility] Comment on above: Result Comment: Refe rence Range: All Ages: <2.2 Performed By: #### G FR, ANEU, CBC, LD, CMP, ADIFF #### [address] [address] Deoxycholate 0.70 umol/l [facility] Comment on above: Result Comment: Refe rence Range: All Ages: <3.3 Performed By: #### G FR, ANEU, CBC, LD, CMP, ADIFF #### [address] [address] Total Bile Acids 3.5 umol/l [facility] Comment on above: Result Comment: This test was developed and its performance characteristics determined by [facility]. It has not been cleared or approved by the Food and Drug Administration. Reference Range: All Ages: <9.2 Performed At: [employer] [address] [place] [id number] Alexandra Tam MD Ph:[phone] Performed By: #### G FR, ANEU, CBC, LD, CMP, ADIFF #### [address] [address] Ursodeoxycholate <0.10 Normal [facility] Comment on above: Result Comment: Refe rence Range: All Ages: <1.9 Performed By: #### G FR, ANEU, CBC, LD, CMP, ADIFF #### [facility] [address] [place], [place] [address] Progress Noteon 01-02-2024 Bobbin Trucker Authentication Interface Message Text Comanage GestationalDiabetes Mellitus [...] NEEDLE GREG U/F) 32G X 4 MM [facility] Patient to test/inject 4-7 times daily. 200 Each 5 [DISCONTINUED] Continuous Glucose Sensor (DEXCOM G7 SENSOR) [facility] Provide 3 pack of sensors (30 day supply) [facility] [id number] 3 Each 6 RA ALCOHOL SWABS 70 % PADS Blood Glucose Monitoring Suppl (ONE TOUCH ULTRA 2) w/Device KIT use as directed to CHECK BLOOD SUGAR four times a day FREESTYLE PRECISION DANAY TEST test strip FREESTYLE LANCETS [facility] Vit w/Yp-Fqrgjsasn-UM (PNV PO) Take 1 Tablet by mouth daily Continuous Glucose Sensor (DEXCOM G7 SENSOR) [facility] Provide 3 pack of sensors (30 day supply) [facility] [id number] 3 Each 2 Insulin Syringe-Needle U-100 31G X 5/16 1 ML [facility] Use as directed (Patient not taking: Reported [...] apnea, hemorrhag (more content not included)... Normal [facility] LABORATORYOrdered By: Kevin Marin on 12-30-2023 Appearance [...] (12/30/23 9:24 AM) Invalid Interpretation Code Negative AH Auto Urine SS UA Nitrite Negative (12/30/23 9:24 AM) Normal Negative AH Auto Urine SS UA pH 7.5 (12/30/23 9:24 AM) Normal 5.0 - 8.0 AH Auto Urine SS UA Protein Negative Normal Negative AH Auto Urine SS UA RBC Negative Normal 0-2 AH Auto Urine SS UA Spec Grav 1.015 (12/30/23 9:24 AM) Normal 1.006-1.029 AH Auto Urine SS UA Specimen Type Clean Catch (12/30/23 9:24 AM) Normal AH Auto Urine SS UA Squam Epithelial 25-50 /HPF Invalid Interpretation Code 0-20 AH Auto Urine SS UA Urobilinogen 1.0 E.U./dL Normal 0.2-1.0 AH Auto Urine SS WBC LM.HPF (Urine sed) [#/Area] 3-5 /HPF Normal 0-5 AH Auto Urine SS UAon 12-30-2023 Color (U) Yellow Normal [facility] Comment on above: Performed By: #### G FR, ANEU, CBC, LD, CMP, ADIFF #### [place] [address] Glucose (U) [Mass/Vol] Negative Normal Negative [facility] Comment on above: Performed By: #### G FR, ANEU, CBC, LD, CMP, ADIFF #### [place] [address] Ketones Ql (U) Negative Normal Neg-Trace [facility] Comment on above: Performed By: #### G FR, ANEU, CBC, LD, CMP, ADIFF #### [place] [address] UA Appear Cloudy Abnormal Clear [facility] Comment on above: Performed By: #### G FR, ANEU, CBC, LD, CMP, ADIFF #### [place] [address] UA Blood Negative Normal Neg-Trace [facility] Comment on above: Performed By: #### G FR, ANEU, CBC, LD, CMP, ADIFF #### [place] [address] UA Leuk Est Trace Normal Negative [facility] Comment on above: Performed By: #### G FR, ANEU, CBC, LD, CMP, ADIFF #### [place] [address] UA Nitrite Negative Normal Negative [facility] Comment on above: Performed By: #### G FR, ANEU, CBC, LD, CMP, ADIFF #### [place] [address] UA pH 7.5 Normal 5.0 - 8.0 [facility] Comment on above: Performed By: #### G FR, ANEU, CBC, LD, CMP, ADIFF #### [place] [address] UA Protein Negative Normal Negative [facility] Comment on above: Performed By: #### G FR, ANEU, CBC, LD, CMP, ADIFF #### [place] [address] UA Spec Grav 1.015 Normal 1.006-1.029 [facility] Comment on above: Performed By: #### G FR, ANEU, CBC, LD, CMP, ADIFF #### [place] [address] UA Specimen Type Clean Catch Normal [facility] Comment on above: Performed By: #### G FR, ANEU, CBC, LD, CMP, ADIFF #### [place] [address] UA Urobilinogen 1.0 E.U./dL Normal 0.2-1.0 [facility] Comment on above: Performed By: #### G FR, ANEU, CBC, LD, CMP, ADIFF #### [place] [address] Urobilinogen (U) [Mass/Vol] Negative Normal Neg-Trace [facility] Comment on above: Performed By: #### G FR, ANEU, CBC, LD, CMP, ADIFF #### [place] [address] UAMICon 12-30-2023 UA Bacteria 3+ /hpf Abnormal Negative [facility] Comment on above: Performed By: #### G FR, ANEU, CBC, LD, CMP, ADIFF #### [place] [address] UA RBC Negative Normal 0-2 [facility] Comment on above: Performed By: #### G FR, ANEU, CBC, LD, CMP, ADIFF #### [place] [address] UA Squam Epithelial 25-50 Abnormal 0-20 [facility] Comment on above: Performed By: #### G FR, ANEU, CBC, LD, CMP, ADIFF #### [place] [address] UA WBC 3-5 Normal 0-5 [facility] Comment on above: Performed By: #### G FR, ANEU, CBC, LD, CMP, ADIFF #### [address] [address] .Auto Diffon 12-23-2023 Basophil, Absolute 0.1 10 3/mcL Normal 0.0-0.3 [facility] Comment on above: Performed By: #### G FR, ANEU, CBC, LD, CMP, ADIFF #### [place] [id number] Basophils/100 WBC (Bld) 0.7 % Normal 0.0-2.5 [facility] Comment on above: Performed By: #### G FR, ANEU, CBC, LD, CMP, ADIFF #### [address] [address] Eosinophil, Absolute 0.1 10 3/mcL Normal 0.0-0.7 [facility] Comment on above: Performed By: #### G FR, ANEU, CBC, LD, CMP, ADIFF #### [address] [address] Eosinophils/100 WBC (Bld) 0.5 % Normal 0.0-6.0 [facility] Comment on above: Performed By: #### G FR, ANEU, CBC, LD, CMP, ADIFF #### [address] [address] Lymphocyte, Absolute 2.1 10 3/mcL Normal 0.9-4.3 [facility] Comment on above: Performed By: #### G FR, ANEU, CBC, LD, CMP, ADIFF #### [address] [address] Lymphocytes/100 WBC (Bld) 18.7 % Low 20.0-40.0 [facility] Comment on above: Performed By: #### G FR, ANEU, CBC, LD, CMP, ADIFF #### [address] [address] Monocyte, Absolute 0.7 10 3/mcL Normal 0.1-1.4 [facility] Comment on above: Performed By: #### G FR, ANEU, CBC, LD, CMP, ADIFF #### [address] [address] Monocytes/100 WBC (Bld) 6.0 % Normal 2.0-13.0 [facility] Comment on above: Performed By: #### G FR, ANEU, CBC, LD, CMP, ADIFF #### [place] [id number] [place] [address] Neutrophils/100 WBC (Bld) 74.1 % Normal 50.0-75.0 [facility] Comment on above: Performed By: #### G FR, ANEU, CBC, LD, CMP, ADIFF #### [address] [address] .GFRon 12-23-2023 GFR >60 Normal [facility] Comment on above: Result Comment: GFR [...] FR, ANEU, CBC, LD, CMP, ADIFF #### [address] [address] GFR Non- >60 Normal [facility] Comment on above: Result Comment: GFR [...] FR, ANEU, CBC, LD, CMP, ADIFF #### [place] [address] .NEUABSon 12-23-2023 Neutrophil, Absolute 8.2 10 3/mcL High 2.3-8.1 [facility] Comment on above: Performed By: #### G FR, ANEU, CBC, LD, CMP, ADIFF #### [place] [address] CBCon 12-23-2023 Erythrocyte distribution width (RBC) [Ratio] 14.8 % Normal 11.5-15.5 [facility] Comment on above: Performed By: #### G FR, ANEU, CBC, LD, CMP, ADIFF #### [place] [address] Hematocrit (Bld) [Volume fraction] 31.4 % Low 34.0-46.0 [facility] Comment on above: Performed By: #### G FR, ANEU, CBC, LD, CMP, ADIFF #### [place] [address] Hgb 10.4 G/dL Low 12.0-16.0 [facility] Comment on above: Performed By: #### G FR, ANEU, CBC, LD, CMP, ADIFF #### [place] [address] MCH (RBC) [Entitic mass] 24.6 pg Low 27.0-33.0 [facility] Comment on above: Performed By: #### G FR, ANEU, CBC, LD, CMP, ADIFF #### [place] [address] MCHC 33.1 G/dL Normal 32.0-36.0 [facility] Comment on above: Performed By: #### G FR, ANEU, CBC, LD, CMP, ADIFF #### [place] [address] MCV (RBC) [Entitic vol] 74.4 fL Low 80.0-99.0 [facility] Comment on above: Performed By: #### G FR, ANEU, CBC, LD, CMP, ADIFF #### [place] [address] Platelet 120 10 3/mcL Low 150-450 [facility] Comment on above: Performed By: #### G FR, ANEU, CBC, LD, CMP, ADIFF #### [place] [address] Platelet mean volume (Bld) [Entitic vol] 10.9 fL High 6.6-10.5 [facility] Comment on above: Performed By: #### G FR, ANEU, CBC, LD, CMP, ADIFF #### [place] [address] RBC 4.22 10 6/mcL Normal 4.10-5.30 [facility] Comment on above: Performed By: #### G FR, ANEU, CBC, LD, CMP, ADIFF #### [place] [address] WBC 11.1 10 3/mcL High 4.5-10.8 [facility] Comment on above: Performed By: #### G FR, ANEU, CBC, LD, CMP, ADIFF #### [place] [address] CMPon 12-23-2023 Albumin Level 2.3 G/dL Low 3.2-4.8 [facility] Comment on above: Performed By: #### G FR, ANEU, CBC, LD, CMP, ADIFF #### [place] [address] Albumin/Globulin [Mass ratio] 0.6 {ratio} Low 0.9-1.6 [facility] Comment on above: Performed By: #### G FR, ANEU, CBC, LD, CMP, ADIFF #### [place] [address] ALP [Catalytic activity/Vol] 192 U/L High 38-126 [facility] Comment on above: Performed By: #### G FR, ANEU, CBC, LD, CMP, ADIFF #### [address] [address] ALT [Catalytic activity/Vol] 24 U/L Normal 10-49 [facility] Comment on above: Performed By: #### G FR, ANEU, CBC, LD, CMP, ADIFF #### [address] [address] AST [Catalytic activity/Vol] 17 U/L Normal 8-34 [facility] Comment on above: Performed By: #### G FR, ANEU, CBC, LD, CMP, ADIFF #### [address] [address] Bili Total 0.50 mg/dL Normal 0.20-1.20 [facility] Comment on above: Result Comment: Use of this assay is not recommended for patients undergoing treatment with eltrombopag due to the potential for falsely elevated results. Performed By: #### G FR, ANEU, CBC, LD, CMP, ADIFF #### [address] [address] BUN/Creatinine Ratio 11.8 ratio Normal 10.0-22.0 [facility] Comment on above: Performed By: #### G FR, ANEU, CBC, LD, CMP, ADIFF #### [address] [address] Calcium [Mass/Vol] 8.8 mg/dL Normal 8.7-10.4 [facility] Comment on above: Performed By: #### G FR, ANEU, CBC, LD, CMP, ADIFF #### [address] [address] Chloride [Moles/Vol] 107 mmol/L Normal 98-110 [facility] Comment on above: Performed By: #### G FR, ANEU, CBC, LD, CMP, ADIFF #### [address] [address] CO2 [Moles/Vol] 24 mmol/L Normal 22-32 [facility] Comment on above: Performed By: #### G FR, ANEU, CBC, LD, CMP, ADIFF #### [address] [address] Creatinine [Mass/Vol] 0.51 mg/dL Normal 0.50-1.20 [facility] Comment on above: Result Comment: Test ing performed on [employer] analyzer using enzymatic creatinine methodology. Performed By: #### G FR, ANEU, CBC, LD, CMP, ADIFF #### [address] [address] Electrolyte Balance 8.0 mEq/L Normal 4.0-15.0 [facility] Comment on above: Performed By: #### G FR, ANEU, CBC, LD, CMP, ADIFF #### [address] [address] Globulin 3.9 G/dL High 1.5-3.8 [facility] Comment on above: Performed By: #### G FR, ANEU, CBC, LD, CMP, ADIFF #### [address] [address] Glucose [Mass/Vol] 91 mg/dL Normal 70-110 [facility] Comment on above: Performed By: #### G FR, ANEU, CBC, LD, CMP, ADIFF #### [address] [address] Potassium [Moles/Vol] 3.9 mmol/L Normal 3.5-5.0 [facility] Comment on above: Performed By: #### G FR, ANEU, CBC, LD, CMP, ADIFF #### [address] [address] Sodium [Moles/Vol] 139 mmol/L Normal 136-145 [facility] Comment on above: Performed By: #### G FR, ANEU, CBC, LD, CMP, ADIFF #### [address] [address] Total Protein 6.2 G/dL Normal 5.7-8.2 [facility] Comment on above: Performed By: #### G FR, ANEU, CBC, LD, CMP, ADIFF #### [address] [address] Urea nitrogen [Mass/Vol] 6.0 mg/dL Low 8.0-22.0 [facility] Comment on above: Performed By: #### G FR, ANEU, CBC, LD, CMP, ADIFF #### [place] [address] LABORATORYOrdered By: Leif Manuel on 12-23-2023 Appearance (U) Clear (12/23/23 12:48 PM) Normal Clear AH Auto Urine SS Bilirubin Ql (U) Negative (12/23/23 12:48 PM) Normal Neg-Trace AH Auto Urine SS Color (U) Yellow (12/23/23 [...] 1.6 ratio ADM SS ALP [Catalytic activity/Vol] 192 U/L High 38 - 126 U/L ADM SS ALT No additional P-5'-P [Catalytic activity/Vol] 24 U/L Normal 10 - 49 U/L ADM SS AST [Catalytic activity/Vol] 17 U/L Normal 8 - 34 U/L ADM SS Basophils (Bld) [#/Vol] 0.1 103/mcL Normal 0.0 - 0.3 10^3/mcL Workflow SS Basophils/100 WBC (Bld) 0.7 % [...] Normal 0.50 - 1.20 mg/dL ADM SS Comment on above: Interpretive Data: T esting performed on [employer] analyzer using enzymatic creatinine methodology. Electrolyte Balance [...] 2.1 103/mcL Normal 0.9 - 4.3 10^3/mcL Workflow SS Lymphocytes/100 WBC (Bld) 18.7 % Low 20.0 - 40.0 % AH Workflow SS MCH (RBC) [Entitic mass] 24.6 pg Low 27.0 - 33.0 pg AH Workflow SS MCHC 33.1 G/dL Normal 32.0 - 36.0 G/dL AH Workflow SS MCV (RBC) [Entitic vol] 74.4 fL Low 80.0 - 99.0 fL AH Workflow SS Monocytes (Bld) [#/Vol] 0.7 103/mcL Normal 0.1 - 1.4 10^3/mcL AH Workflow SS Monocytes/100 WBC (Bld) 6.0 % Normal 2.0 - 13.0 % AH Workflow SS Neutrophils (Bld) [#/Vol] 8.2 103/mcL High 2.3 - 8.1 10^3/mcL AH Workflow SS Neutrophils/100 WBC (Bld) 74.1 % Normal 50.0 - 75.0 % AH Workflow SS Platelet mean volume (Bld) [Entitic vol] 10.9 fL High 6.6 - 10.5 fL AH Workflow SS Platelets (Bld) [#/Vol] 120 103/mcL Low 150 - 450 10^3/mcL AH Workflow SS Potassium [Moles/Vol] 3.9 mmol/L Normal 3.5 - 5.0 mEq/L AH ADM SS Protein [Mass/Vol] 6.2 G/dL Normal 5.7 - 8.2 G/dL AH ADM SS RBC (Bld) [#/Vol] 4.22 106/mcL Normal 4.10 - 5.3 0 10^6/mcL AH Workflow SS Sodium [Moles/Vol] 139 mmol/L Normal 136 - 145 mEq/L AH ADM SS Urea nitrogen [Mass/Vol] 6.0 mg/dL Low 8.0 - 22.0 mg/dL AH ADM SS Urea nitrogen/Creatinine [Mass ratio] 11.8 ratio Normal 10.0 - 22.0 ratio AH ADM SS WBC (Bld) [#/Vol] 11.1 103/mcL High 4.5 - 10.8 10^3/mcL Workflow SS LDHon 12-23-2023 LDH 196 U/L Normal 120-246 [facility] Comment on above: Performed By: #### G FR, ANEU, CBC, LD, CMP, ADIFF #### [place] [address] RPCURon 12-23-2023 U Creatinine 112.1 mg/dL [facility] Comment on above: Performed By: #### G FR, ANEU, CBC, LD, CMP, ADIFF #### [place] [address] U Protein 20.7 mg/dL Normal [facility] Comment on above: Performed By: #### G FR, ANEU, CBC, LD, CMP, ADIFF #### [place] [address] U Ratio Prot/Creat 0.2 ratio [facility] Comment on above: Result Comment: Unab le to calculate this test result accurately. Results used to calculate this test are outside the reportable range. result calculated by rule GL_UR_PROT_[id number]_OLD (U Protein/U Creatinine) Performed By: #### G FR, ANEU, CBC, LD, CMP, ADIFF #### [place] [address] UAon 12-23-2023 Color (U) Yellow [facility] Comment on above: Performed By: #### G FR, ANEU, CBC, LD, CMP, ADIFF #### [place] [address] Glucose (U) [Mass/Vol] Negative Normal Negative [facility] Comment on above: Performed By: #### G FR, ANEU, CBC, LD, CMP, ADIFF #### [place] [address] Ketones Ql (U) Negative Normal Neg-Trace [facility] Comment on above: Performed By: #### G FR, ANEU, CBC, LD, CMP, ADIFF #### [place] [address] UA Appear Clear Normal Clear [facility] Comment on above: Performed By: #### G FR, ANEU, CBC, LD, CMP, ADIFF #### [place] [id number] UA Blood Negative Normal Neg-Trace [facility] Comment on above: Performed By: #### G FR, ANEU, CBC, LD, CMP, ADIFF #### [address] [address] UA Leuk Est Negative Normal Negative [facility] Comment on above: Performed By: #### G FR, ANEU, CBC, LD, CMP, ADIFF #### [address] [address] UA Nitrite Negative Normal Negative [facility] Comment on above: Performed By: #### G FR, ANEU, CBC, LD, CMP, ADIFF #### [place] [address] UA pH 6.5 Normal 5.0 - 8.0 [facility] Comment on above: Performed By: #### G FR, ANEU, CBC, LD, CMP, ADIFF #### [place] [address] UA Protein Negative Normal Negative [facility] Comment on above: Performed By: #### G FR, ANEU, CBC, LD, CMP, ADIFF #### [place] [address] UA Spec Grav 1.015 Normal 1.006-1.029 [facility] Comment on above: Performed By: #### G FR, ANEU, CBC, LD, CMP, ADIFF #### [place] [address] UA Specimen Type Void Normal [facility] Comment on above: Performed By: #### G FR, ANEU, CBC, LD, CMP, ADIFF #### [place] [address] UA Urobilinogen 1.0 E.U./dL Normal 0.2-1.0 [facility] Comment on above: Performed By: #### G FR, ANEU, CBC, LD, CMP, ADIFF #### [place] [address] Urobilinogen (U) [Mass/Vol] Negative Normal Neg-Trace [facility] Comment on above: Performed By: #### G FR, ANEU, CBC, LD, CMP, ADIFF #### [place] [address] BILEon 12-19-2023 Chenodeoxycholate 0.90 umol/l Normal [facility] Comment on above: Result Comment: Refe rence Range: All Ages: <5.8 Performed By: #### G FR, ANEU, CBC, LD, CMP, ADIFF #### [place] [address] Cholate 0.50 umol/l Normal [facility] Comment on above: Result Comment: Refe rence Range: All Ages: <2.2 Performed By: #### G FR, ANEU, CBC, LD, CMP, ADIFF #### [place] [address] Deoxycholate 0.70 umol/l [facility] Comment on above: Result Comment: Refe rence Range: All Ages: <3.3 Performed By: #### G FR, ANEU, CBC, LD, CMP, ADIFF #### [place] [address] Total Bile Acids 2.1 umol/l [facility] Comment on above: Result Comment: This test was developed and its performance characteristics determined by [facility]. It has not been cleared or approved by the Food and Drug Administration. Reference Range: All Ages: <9.2 Performed At: [employer] [address] [place] [address] [id number] Alexandra Tam MD Ph:[phone] Performed By: #### G FR, ANEU, CBC, LD, CMP, ADIFF #### [place] [address] Ursodeoxycholate <0.10 [facility] Comment on above: Result Comment: Refe rence Range: All Ages: <1.9 Performed By: #### G FR, ANEU, CBC, LD, CMP, ADIFF #### [place] [address] Progress Noteon 12-16-2023 Bobbin Trucker Authentication Interface Message Text Comanage GestationalDiabetes Mellitus [...] has had a prior visit with the network liaison (12/06/2023). Past Medical History: Past Medical History: [...] NEEDLE GREG U/F) 32G X 4 MM [facility] Patient to test/inject 4-7 times daily. 200 Each 5 Continuous Glucose Sensor (DEXCOM G7 SENSOR) [facility] Provide 3 pack of sensors (30 day supply) [facility] [id number] 3 Each 6 RA ALCOHOL SWABS 70 % PADS Blood Glucose Monitoring Suppl (ONE TOUCH ULTRA 2) w/Device KIT use as directed to CHECK BLOOD SUGAR four times a day FREESTYLE PRECISION DANAY TEST test strip FREESTYLE LANCETS MISC Vit w/Zq-Dzpgmcvca-FU (PNV PO) Take 1 Tablet by mouth [...] OF CARE- Co-Manage of Seals- FLAVIO to [facility] 12/08/23 (complete) MD/OB APPOINTMENTS Genetic screening: How often should patient be evaluated? Monthly to 28 weeks, q 2 weeks from 28 to 36 weeks then weekly until delivery. Work restrictions: NA EVALUATION surveillance: Twice weekly testing @ 32wks Ultrasound: Growth every 4 week DELIVERY PLAN Hospital: [facility] Repeat C/S: GBS culture: per OB Contraception: tubal ligation : Breast and bottle Ped: [facility] [place] Name of baby: Boy-undecided Vaccinations: rec [...] on 12/06/23. (more content not included)... Normal [facility] Progress Noteon 12-09-2023 Bobbin Trucker Authentication Interface Message Text Comanage GestationalDiabetes Mellitus [...] NEEDLE GREG U/F) 32G X 4 MM [facility] Patient to test/inject 4-7 times daily. 200 Each 5 Continuous Glucose Sensor (DEXCOM G7 SENSOR) [facility] Provide 3 pack of sensors (30 day supply) [facility] [id number] 3 Each 6 [DISCONTINUED] BUTALBITAL-ACETAMINOPHEN PO Take [...] PRECISION DANAY TEST test strip FREESTYLE LANCETS [facility] Vit w/Am-Twyfpvsyn-KD (PNV PO) Take 1 Tablet by mouth daily Insulin Syringe-Needle U-100 31G X 5/16 1 ML [facility] Use as directed (Patient not taking: Reported [...] Drug use: Never Physical Exam: Assessment/Plan: Lester Lee Naresh is a 23 y.o. at 30w3d with: Active Non-Hospital Problems Diagnosis Date Noted Supervision of high risk in third trimester 01/17/2023 Priority: High PLAN OF CARE- Co-Manage of Seals- FLAVIO to [facility] 12/08/23 (complete) MD/OB APPOINTMENTS Genetic screening: How often should patient be evaluated? Monthly to 28 weeks, q 2 weeks from 28 to 36 weeks then weekly until delivery. Work restrictions: NA EVALUATION surveillance: Twice weekly testing @ 32wks Ultrasound: Growth every 4 week DELIVERY PLAN Hospital: [facility] Repeat C/S: GBS culture: per OB Contraception: tubal ligation : Breast and bottle Ped: [facility] Name of baby: Boy-undecided Vaccinations: rec COVID- declined, Flu- declined and 3rd trimester TDAP- undecided Reviewed on 12/09/2023 Insulin controlled gestational diabetes mellitus (GDM) in third trimester 01/14/2023 Priority: High 12/01/2023 Pt did not start insulin last night. I reviewed her BS today. Fasting 136-157. 1 hr PP breakfast 161 (more content not included)... Normal [facility] RPRon 12-09-2023 Reagin Ab RPR Ql (S) Non-Reactive Normal Non-Reactive [facility] Comment on above: Result Comment: The [...] FR, ANEU, CBC, LD, CMP, ADIFF #### [facility] [address] [place] [address] Rule out Beta Strep (Grp. B) on 12-09-2023 KATELIN Group B Beta Streptococcus is not isolated. Normal [facility] Comment on above: Performed By: #### L 509.4005, L509.8000 #### [facility] [address] [place], [address] .Auto Diffon 12-08-2023 Basophil, Absolute 0.0 10 3/mcL Normal 0.0-0.3 [facility] Comment on above: Performed By: #### A WAYNE, CBC, GFR, 468484, ADIFF, CMP, RPR #### [facility] [address] [place] [address] Basophils/100 WBC (Bld) 0.5 % Normal 0.0-2.5 [facility] Comment on above: Performed By: #### A WAYNE, CBC, GFR, 370187, ADIFF, CMP, RPR #### [address] [address] Eosinophil, Absolute 0.0 10 3/mcL Normal 0.0-0.7 [facility] Comment on above: Performed By: #### A WAYNE, CBC, GFR, 508809, ADIFF, CMP, RPR #### [address] [address] Eosinophils/100 WBC (Bld) 0.1 % Normal 0.0-6.0 [facility] Comment on above: Performed By: #### A WAYNE, CBC, GFR, 224971, ADIFF, CMP, RPR #### [address] [address] Lymphocyte, Absolute 1.9 10 3/mcL Normal 0.9-4.3 [facility] Comment on above: Performed By: #### A WAYNE, CBC, GFR, 230455, ADIFF, CMP, RPR #### [address] [address] Lymphocytes/100 WBC (Bld) 19.8 % Low 20.0-40.0 [facility] Comment on above: Performed By: #### A WAYNE, CBC, GFR, 547355, ADIFF, CMP, RPR #### [address] [address] Monocyte, Absolute 0.6 10 3/mcL Normal 0.1-1.4 [facility] Comment on above: Performed By: #### A WAYNE, CBC, GFR, 131840, ADIFF, CMP, RPR #### [address] [address] Monocytes/100 WBC (Bld) 6.8 % Normal 2.0-13.0 [facility] Comment on above: Performed By: #### A WAYNE, CBC, GFR, 669024, ADIFF, CMP, RPR #### [address] [address] Neutrophils/100 WBC (Bld) 72.8 % Normal 50.0-75.0 [facility] Comment on above: Performed By: #### A WAYNE, CBC, GFR, 013071, ADIFF, CMP, RPR #### [address] [address] .GFRon 12-08-2023 GFR >60 Normal [facility] Comment on above: Result Comment: GFR [...] FR, ANEU, CBC, LD, CMP, ADIFF #### [address] [address] GFR Non- >60 Normal [facility] Comment on above: Result Comment: GFR [...] FR, ANEU, CBC, LD, CMP, ADIFF #### [address] [address] .NEUABSon 12-08-2023 Neutrophil, Absolute 6.9 10 3/mcL Normal 2.3-8.1 [facility] Comment on above: Performed By: #### A WAYNE, CBC, GFR, 092486, ADIFF, CMP, RPR #### [address] [address] CBCon 12-08-2023 Erythrocyte distribution width (RBC) [Ratio] 15.2 % Normal 11.5-15.5 [facility] Comment on above: Performed By: #### A WAYNE, CBC, GFR, 983592, ADIFF, CMP, RPR #### [place] [address] Hematocrit (Bld) [Volume fraction] 33.7 % Low 34.0-46.0 [facility] Comment on above: Performed By: #### A WAYNE, CBC, GFR, 597847, ADIFF, CMP, RPR #### [place] [id number] Hgb 10.8 G/dL Low 12.0-16.0 [facility] Comment on above: Performed By: #### A WAYNE, CBC, GFR, 400536, ADIFF, CMP, RPR #### [place] [id number] MCH (RBC) [Entitic mass] 24.5 pg Low 27.0-33.0 [facility] Comment on above: Performed By: #### A WAYNE, CBC, GFR, 873942, ADIFF, CMP, RPR #### [place] [id number] MCHC 32.1 G/dL Normal 32.0-36.0 [facility] Comment on above: Performed By: #### A WAYNE, CBC, GFR, 356017, ADIFF, CMP, RPR #### [place] [address] MCV (RBC) [Entitic vol] 76.2 fL Low 80.0-99.0 [facility] Comment on above: Performed By: #### A WAYNE, CBC, GFR, 949206, ADIFF, CMP, RPR #### [place] [id number] Platelet 151 10 3/mcL Normal 150-450 [facility] Comment on above: Performed By: #### A WAYNE, CBC, GFR, 159745, ADIFF, CMP, RPR #### [place] [address] Platelet mean volume (Bld) [Entitic vol] 11.1 fL High 6.6-10.5 [facility] Comment on above: Performed By: #### A WAYNE, CBC, GFR, 408718, ADIFF, CMP, RPR #### [place] [address] RBC 4.42 10 6/mcL Normal 4.10-5.30 [facility] Comment on above: Performed By: #### A WAYNE, CBC, GFR, 548786, ADIFF, CMP, RPR #### [place] [address] WBC 9.5 10 3/mcL Normal 4.5-10.8 [facility] Comment on above: Performed By: #### A WAYNE, CBC, GFR, 248912, ADIFF, CMP, RPR #### [place] [address] CMPon 12-08-2023 Albumin Level 2.4 G/dL Low 3.2-4.8 [facility] Comment on above: Performed By: #### A WAYNE, CBC, GFR, 719720, ADIFF, CMP, RPR #### [place] [address] Albumin/Globulin [Mass ratio] 0.6 {ratio} Low 0.9-1.6 [facility] Comment on above: Performed By: #### A WAYNE, CBC, GFR, 650967, ADIFF, CMP, RPR #### [place] [address] ALP [Catalytic activity/Vol] 167 U/L High 38-126 [facility] Comment on above: Performed By: #### A WAYNE, CBC, GFR, 500530, ADIFF, CMP, RPR #### [facility] [address] [place], [place] [address] ALT [Catalytic activity/Vol] 21 U/L Normal 10-49 [facility] Comment on above: Performed By: #### A WAYNE, CBC, GFR, 378209, ADIFF, CMP, RPR #### [address] [address] AST [Catalytic activity/Vol] 14 U/L Normal 8-34 [facility] Comment on above: Performed By: #### A WAYNE, CBC, GFR, 445550, ADIFF, CMP, RPR #### [address] [address] Bili Total 0.50 mg/dL Normal 0.20-1.20 [facility] Comment on above: Result Comment: Use of this assay is not recommended for patients undergoing treatment with eltrombopag due to the potential for falsely elevated results. Performed By: #### A WAYNE, CBC, GFR, 634297, ADIFF, CMP, RPR #### [address] [address] BUN/Creatinine Ratio 9.4 ratio Low 10.0-22.0 [facility] Comment on above: Performed By: #### A WAYNE, CBC, GFR, 795212, ADIFF, CMP, RPR #### [address] [address] Calcium [Mass/Vol] 8.9 mg/dL Normal 8.7-10.4 [facility] Comment on above: Performed By: #### A WAYNE, CBC, GFR, 251700, ADIFF, CMP, RPR #### [address] [address] Chloride [Moles/Vol] 107 mmol/L Normal 98-110 [facility] Comment on above: Performed By: #### A WAYNE, CBC, GFR, 635183, ADIFF, CMP, RPR #### [address] [address] CO2 [Moles/Vol] 25 mmol/L Normal 22-32 [facility] Comment on above: Performed By: #### A WAYNE, CBC, GFR, 060105, ADIFF, CMP, RPR #### [address] [address] Creatinine [Mass/Vol] 0.53 mg/dL Normal 0.50-1.20 [facility] Comment on above: Result Comment: Test ing performed on [employer] analyzer using enzymatic creatinine methodology. Performed By: #### A WAYNE, CBC, GFR, 845351, ADIFF, CMP, RPR #### [address] [address] Electrolyte Balance 6.0 mEq/L Normal 4.0-15.0 [facility] Comment on above: Performed By: #### A WAYNE, CBC, GFR, 878432, ADIFF, CMP, RPR #### [address] [address] Globulin 3.9 G/dL High 1.5-3.8 [facility] Comment on above: Performed By: #### A WAYNE, CBC, GFR, 394503, ADIFF, CMP, RPR #### [address] [address] Glucose [Mass/Vol] 95 mg/dL Normal 70-110 [facility] Comment on above: Performed By: #### A WAYNE, CBC, GFR, 976756, ADIFF, CMP, RPR #### [address] [address] Potassium [Moles/Vol] 4.0 mmol/L Normal 3.5-5.0 [facility] Comment on above: Performed By: #### A WAYNE, CBC, GFR, 523472, ADIFF, CMP, RPR #### [address] [address] Sodium [Moles/Vol] 138 mmol/L Normal 136-145 [facility] Comment on above: Performed By: #### A WAYNE, CBC, GFR, 496643, ADIFF, CMP, RPR #### [address] [address] Total Protein 6.3 G/dL Normal 5.7-8.2 [facility] Comment on above: Performed By: #### A WAYNE, CBC, GFR, 444966, ADIFF, CMP, RPR #### [facility] [address] [place] [address] Urea nitrogen [Mass/Vol] 5.0 mg/dL Low 8.0-22.0 [facility] Comment on above: Performed By: #### A WAYNE, CBC, GFR, 727132, ADIFF, CMP, RPR #### [facility] [address] [place] [address] Urine Cultureon 12-08-2023 [facility] Mixed Gram Pos Gram Neg Org [place] Count 80,000-100,000 [facility] Mixed contaminants. Submit a new specimen if indicated. Normal [facility] Comment on above: Performed By: #### L 505.5000 #### [facility] [address] [place], [address] CBC W/Diff, Automatedon 11-15 Absolute Lymph 2.23 X10 3/uL Normal 0.83-4.51 [facility] Comment on above: Performed By: #### L 509.4005, L509.8000 #### [facility] [address] [place], [address] Absolute Neut 9.0 X10 3/uL High 2.0-7.7 [facility] Comment on above: Performed By: #### L 509.4005, L509.8000 #### [facility] [address] [place], [address] Basophils/100 WBC (Bld) 0.3 % Normal 0-1 [facility] Comment on above: Performed By: #### L 509.4005, L509.8000 #### [facility] [address] [place], [address] Eosinophils/100 WBC (Bld) 0.1 % Normal 0-5 [facility] Comment on above: Performed By: #### L 509.4005, L509.8000 #### [facility] [address] [place], [address] Erythrocyte distribution width (RBC) [Ratio] 14.6 % Normal 11.6-14.6 [facility] Comment on above: Performed By: #### L 509.4005, L509.8000 #### [facility] [address] [place], [address] Hematocrit (Bld) [Volume fraction] 33.0 % Low 37-47 [facility] Comment on above: Performed By: #### L 509.4005, L509.8000 #### [facility] [address] [place], [address] Hemoglobin (Bld) [Mass/Vol] 10.5 g/dL Low 12.0-15.0 [facility] Comment on above: Performed By: #### L 509.4005, L509.8000 #### [facility] [address] [place], [address] IG% 0.400 Normal 0.0-0.9 [facility] Comment on above: Result Comment: IG% - Immature Granulocytes (promyelocytes, myelocytes and metamyelocytes) > 1% indicates that a LEFT SHIFT is Present. Performed By: #### L 509.4005, L509.8000 #### [facility] [address] [place], [address] Lymphocytes/100 WBC (Bld) 18.4 % Low 19-41 [facility] Comment on above: Performed By: #### L 509.4005, L509.8000 #### [facility] [address] [place], [address] MCH (RBC) [Entitic mass] 24.8 pg Low 27.0-32.0 [facility] Comment on above: Performed By: #### L 509.4005, L509.8000 #### [facility] [address] [place], [address] MCHC (RBC) [Mass/Vol] 31.8 g/dL Low 32-36 [facility] Comment on above: Performed By: #### L 509.4005, L509.8000 #### [facility] [address] [place], [address] MCV (RBC) [Entitic vol] 77.8 fL Low 81-99 [facility] Comment on above: Performed By: #### L 509.4005, L509.8000 #### [facility] [address] [place], [address] Monocytes/100 WBC (Bld) 6.5 % Normal 0-10 [facility] Comment on above: Performed By: #### L 509.4005, L509.8000 #### [facility] [address] [place], [address] Neutrophils/100 WBC (Bld) 74.3 % High 47-70 [facility] Comment on above: Performed By: #### L 509.4005, L509.8000 #### [facility] [address] [place], [address] Nucleated RBC (Bld) [#/Vol] 0 10*3/uL Normal 0-5 [facility] Comment on above: Performed By: #### L 509.4005, L509.8000 #### [facility] [address] [place], [address] Platelet mean volume (Bld) [Entitic vol] 12.0 fL Normal 6.2-12.0 [facility] Comment on above: Performed By: #### L 509.4005, L509.8000 #### [facility] [address] [place], [address] Platelets (Bld) [#/Vol] 161 10*3/uL Normal 150-450 [facility] Comment on above: Performed By: #### L 509.4005, L509.8000 #### [facility] [address] [place], [address] RBC (Bld) [#/Vol] 4.24 10*6/uL Normal 4.2-5.4 [facility] Comment on above: Performed By: #### L 509.4005, L509.8000 #### [facility] [address] [place], [address] RDW SD 41.2 fl Normal 35.1-43.9 [facility] Comment on above: Performed By: #### L 509.4005, L509.8000 #### [facility] [address] [place], [address] WBC (Bld) [#/Vol] 12.1 10*3/uL High 4.4-11.0 [facility] Comment on above: Performed By: #### L 509.4005, L509.8000 #### [facility] [address] [place], [address] Fibronectinon 12-07-19 24 fFIBRONECTIN Negative Normal [facility] Comment on above: Performed By: #### L 509.4005, L509.8000 #### [facility] [address] [place], [address] Group B Strep DNA By PCRon 1 GBS DNA ASSAY Negative Normal Negative [facility] Comment on above: Performed By: #### L 505.5000 #### [facility] [address] [place], [address] OB Triage Physician Noteon 1 OB Triage Physician Note [facility] Medical Records Department [address] [place] [address] OB Triage Physician Note 12/07/23 0955 MR#: [id number] Acct: [id number] Name: LESTER INFANTE Rep #: [id number] : 2000 23 From: Tian Gomez MD PCP: Care Physician,No Primary Status:REG CLI Y Location: [place] [id number] HPI - General General Date of Admission: [...] She was seen by Dr. Singh in [place] and eventually transferred to [facility] risk physicians and is followed in [place] with this . She indicates that she woke up this morning with some contractions at about 3 AM and they have not lessened. [facility] Medical History History of migraine History of [...] MD; No Primary Care Physician Signed Normal [facility] Urinalysis, Routine (Dipstic k)on 12-07-2023 BILIRUBIN URINE Negative Normal Negative [facility] Comment on above: Order Comment: CLEAN CATCH Performed By: #### L 509.8822, L509.8000 #### [facility] [address] [place], [address] Clarity (U) Sl. Cloudy Normal Clear [facility] Comment on above: Order Comment: CLEAN CATCH Performed By: #### L 503.1816, L509.8000 #### [facility] [address] [place], [address] Color (U) Yellow Normal Yellow [facility] Comment on above: Order Comment: CLEAN CATCH Performed By: #### L 509.4005, L509.8000 #### [facility] [address] [place], [address] GLUCOSE, UR Normal Normal Normal [facility] Comment on above: Order Comment: CLEAN CATCH Performed By: #### L 509.4005, L509.8000 #### [facility] [address] [place], [address] KETONE UR Negative Normal Negative [facility] Comment on above: Order Comment: CLEAN CATCH Performed By: #### L 509.4005, L509.8000 #### [facility] [address] [place], [address] LEUK ESTERASE 25 /ul Abnormal Negative [facility] Comment on above: Order Comment: CLEAN CATCH Performed By: #### L 509.4005, L509.8000 #### [facility] [address] [place], [address] Nitrite Ql (U) Negative Normal Negative [facility] Comment on above: Order Comment: CLEAN CATCH Performed By: #### L 509.4005, L509.8000 #### [facility] [address] [place], [address] OCCULT BLOOD-UR 10 /ul Abnormal Negative [facility] Comment on above: Order Comment: CLEAN CATCH Performed By: #### L 509.4005, L509.8000 #### [facility] [address] [place], [address] pH UR 7.0 Normal 5.0 - 8.0 [facility] Comment on above: Order Comment: CLEAN CATCH Performed By: #### L 509.4005, L509.8000 #### [facility] [address] [place], [address] PROT DIPSTX 30 mg/dl Abnormal Negative [facility] Comment on above: Order Comment: CLEAN CATCH Performed By: #### L 509.4005, L509.8000 #### [facility] [address] [place], [address] SP.GR. DIPSTX 1.010 Normal 1.002-1.030 [facility] Comment on above: Order Comment: CLEAN CATCH Performed By: #### L 509.4005, L509.8000 #### [facility] [address] [place], [address] UROBILI 1 mg/dl Abnormal Normal [facility] Comment on above: Order Comment: CLEAN CATCH Performed By: #### L 509.4005, L509.8000 #### [facility] [address] [place], [address] Urine Drug Screen (VISTA)on 12-07-2023 AMPHETAMINES Negative Normal <1000 ng/mL [facility] Comment on above: Performed By: #### L 509.4005, L509.8000 #### [facility] [address] [place], [address] BARBITIURATES Negative Normal < 200 ng/mL [facility] Comment on above: Performed By: #### L 509.4005, L509.8000 #### [facility] [address] [place], [address] BENZODIAZIPINE Negative Normal < 200 ng/mL [facility] Comment on above: Performed By: #### L 509.4005, L509.8000 #### [facility] [address] [place], [address] COCAINE Negative Normal < 300 ng/mL [facility] Comment on above: Performed By: #### L 509.4005, L509.8000 #### [facility] [address] [place], [address] ECSTACY Negative Normal < 500 ng/mL [facility] Comment on above: Performed By: #### L 509.4005, L509.8000 #### [facility] [address] [place], [address] METHADONE Negative Normal < 300 ng/mL [facility] Comment on above: Performed By: #### L 509.4005, L509.8000 #### [facility] [address] [place], [address] OPIATES Negative Normal < 300 ng/mL [facility] Comment on above: Performed By: #### L 509.4005, L509.8000 #### [facility] [facility] [address] [place], [address] PCP Negative Normal < 25 ng/mL [facility] Comment on above: Performed By: #### L 509.4005, L509.8000 #### [facility] [address] [place], [address] THC Negative Normal < 50 ng/mL [facility] Comment on above: Performed By: #### L 509.4005, L509.8000 #### [facility] [address] [place], [address] VISTA UDS PH 7 Normal [facility] Comment on above: Performed By: #### L 509.4005, L509.8000 #### [facility] [address] [place], [address] Progress Noteon 12-01-2023 Bobbin Trucker Authentication Interface Message Text I called pt after reviewing BS log that was sent in. She has not started any insulin. NPH 20u in am and 20u @ HS. Prescribed to pharmacy. Pt needs to have nutrition scheduled and has a follow up on Tuesday12/05/23. Normal [facility] Progress Noteon 11-30-2023 Bobbin Trucker Authentication Interface Message Text Pt seen for consult by Dr Melendez. Dexcom G7 set up for pt and she is now sharing data with [facility]. Prescribed G7, pen needles (previous OB called in insulin pens and did not supply needles. Also prescribed daily keflex for recurrent UTIs in . Pt is to take 15u of trujeo @ HS and have follow up appt telehealth on Tuesday12/05/23 for review of BS. Please see consult note. 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 [facility]: Patient will require repeat 2 hr [...] Fat should (more content not included)... Normal [facility] FFNon 11-28-2023 Fibronectin Negative Normal Negative [facility] Comment on above: Performed By: #### F FN #### [facility] [address] [place] [address] LABORATORYOrdered By: Nataliia Diaz on 11-28-2023 Fibronectin. Ql (Vag fld) Negative (11/28/23 2:17 PM) Normal Negative Manual Chem SS .GFRon 11-10-2023 GFR 143 ml/min/1.73sqm Normal [facility] Comment on above: Result Comment: GFR Population [...] By: #### A 1C, GFR, CMP #### [place] [id number] [place], [place] [address] GFR Non- 118 ml/min/1.73sqm Normal [facility] Comment on above: Result Comment: GFR Population [...] By: #### A 1C, GFR, CMP #### [address] [address] A1Con 11-10-2023 Glucose [Mass/Vol] 108 mg/dL Normal [facility] Comment on above: Result Comment: Parvin mated Average Glucose calculated by equation ((28.7xA1C)-46.7) Estimated average glucose (eAG) is a calculated value from Hemoglobin A1C and is sales representative adding machines of the average blood glucose level in the last 2-3 month period. Normal range: less than 114 mg/dL Performed By: #### A 1C, GFR, CMP #### [address] [address] HbA1c (Bld) [Mass fraction] 5.4 % Normal 4.3-6.4 [facility] Comment on above: Performed By: #### A 1C, GFR, CMP #### [address] [address] CMPon 11-10-2023 Albumin Level 2.5 G/dL Low 3.5-5.0 [facility] Comment on above: Performed By: #### A 1C, GFR, CMP #### [address] [address] Albumin/Globulin [Mass ratio] 0.6 {ratio} Low 1.1-2.5 [facility] Comment on above: Performed By: #### A 1C, GFR, CMP #### [address] [address] ALP [Catalytic activity/Vol] 134 U/L Normal 40-135 [facility] Comment on above: Performed By: #### A 1C, GFR, CMP #### [address] [address] ALT [Catalytic activity/Vol] 27 U/L Normal 14-59 [facility] Comment on above: Performed By: #### A 1C, GFR, CMP #### [address] [address] AST [Catalytic activity/Vol] 17 U/L Normal 10-40 [facility] Comment on above: Performed By: #### A 1C, GFR, CMP #### [address] [address] Bili Total 0.3 mg/dL Normal 0.2-1.0 [facility] Comment on above: Result Comment: Use of this assay is not recommended for patients undergoing treatment with eltrombopag due to the potential for falsely elevated results. Performed By: #### A 1C, GFR, CMP #### [address] [address] BUN/Creatinine Ratio 10 ratio Normal 7-27 [facility] Comment on above: Performed By: #### A 1C, GFR, CMP #### [address] [address] Calcium [Mass/Vol] 8.6 mg/dL Normal 8.4-10.2 [facility] Comment on above: Performed By: #### A 1C, GFR, CMP #### [address] [address] Chloride [Moles/Vol] 103 mmol/L Normal 98-107 [facility] Comment on above: Performed By: #### A 1C, GFR, CMP #### [address] [address] CO2 [Moles/Vol] 24 mmol/L Normal 22-29 [facility] Comment on above: Performed By: #### A 1C, GFR, CMP #### [address] [address] Creatinine [Mass/Vol] 0.63 mg/dL Normal 0.55-1.02 [facility] Comment on above: Result Comment: Test ing performed on Siemens Dimension EXL analyzer using a modified kinetic Bryce technique. Performed By: #### A 1C, GFR, CMP #### [place] [address] Electrolyte Balance 12.0 mEq/L Normal 4.0-15.0 [facility] Comment on above: Performed By: #### A 1C, GFR, CMP #### [place] [address] Globulin 4.2 G/dL Normal [facility] Comment on above: Performed By: #### A 1C, GFR, CMP #### [place] [address] Glucose [Mass/Vol] 160 mg/dL High 70-105 [facility] Comment on above: Performed By: #### A 1C, GFR, CMP #### [place] [address] Potassium [Moles/Vol] 3.7 mmol/L Normal 3.5-5.1 [facility] Comment on above: Performed By: #### A 1C, GFR, CMP #### [place] [address] Sodium [Moles/Vol] 139 mmol/L Normal 136-145 [facility] Comment on above: Performed By: #### A 1C, GFR, CMP #### [place] [address] Total Protein 6.7 G/dL Normal 6.4-8.2 [facility] Comment on above: Performed By: #### A 1C, GFR, CMP #### [place] [id number] Urea nitrogen [Mass/Vol] 6 mg/dL Low 7-18 [facility] Comment on above: Performed By: #### A 1C, GFR, CMP #### [place] [address] [place], [place] [address] GLFon 11-10-2023 Glucose [Mass/Vol] 107 mg/dL Normal 83-110 [facility] Comment on above: Performed By: #### G LF #### [id number] [place], [place] [address] LABORATORYOrdered By: SYSTEM SYSTEM on 11-10-2023 Albumin [...] calculated value from Hemoglobin A1C and is sales representative adding machines of the average blood glucose level in [...] 91 mg/dL Normal 70 - 110 mg/dL [facility] Work Phone: VARISon 09-27-[address] Positive Normal [facility] ([place]) Comment on above: Result Comment: INTE RPRETATION OF VARICELLA IMMUNE STATUS IgG BY EIA: Negative: No detectable VZV IgG antibody. Positive: VZV IgG antibody Detected. If clinically indicated, order Varicella IgM to rule out recent infection. Equivocal: Equivocal for antibodies to VZV. Suggest repeat testing in 10-14 days. Performed By: #### V BRITTNEE, RUBIS, HBSAG, RPR ####[place] [address]#### CBC, ADIFF, ANEU, TSH, ABOGEL, ABSGEL ####[facility] [place], [place] [address] RPRon 09-24-2023 Reagin Ab RPR Ql (S) Non-Reactive Normal Non-Reactive [facility] ([place]) Comment on above: Result Comment: The RPR [...] By: #### V BRITTNEE, RUBIS, HBSAG, RPR ####[place] [address]#### CBC, ADIFF, ANEU, TSH, ABOGEL, ABSGEL ####[facility] [place] [id number] RUBISon 09-24-[address] Positive Normal Positive [facility] ([place]) Comment on above: Result Comment: This immune status assay detects IgM and/or IgG antibody to Rubella. Interpret results in conjunction with clinical history. POS: Antibody detected; exposure at undetermined recent or distant time. If clinically indicated, order Rubella IGM to rule out recent infection. NEG: No antibody detected. Performed By: #### V BRITTNEE, RUBIS, HBSAG, RPR ####[place] [address]#### CBC, ADIFF, ANEU, TSH, ABOGEL, ABSGEL ####[place] [address] .Auto Diffon 09-23-2023 Basophil, Absolute 0.0 10 3/mcL Normal 0.0-0.2 [facility] ([place]) Comment on above: Performed By: #### V BRITTNEE, RUBIS, HBSAG, RPR ####[place] [address]#### CBC, ADIFF, ANEU, TSH, ABOGEL, ABSGEL ####[place] [address] Basophils/100 WBC (Bld) 0.4 % Normal 0.0-2.5 [facility] ([place]) Comment on above: Performed By: #### V BRITTNEE, RUBIS, HBSAG, RPR ####[place] [address]#### CBC, ADIFF, ANEU, TSH, ABOGEL, ABSGEL ####[place] [address] [place] [address] Eosinophil, Absolute 0.0 10 3/mcL Normal 0.0-0.4 [facility] ([place]) Comment on above: Performed By: #### V BRITTNEE, RUBIS, HBSAG, RPR ####[place] [address]#### CBC, ADIFF, ANEU, TSH, ABOGEL, ABSGEL ####[facility] [place], [place] [address] Eosinophils/100 WBC (Bld) 0.3 % Normal 0.0-7.0 [facility] ([place]) Comment on above: Performed By: #### V BRITTNEE, RUBIS, HBSAG, RPR ####[place] [address]#### CBC, ADIFF, ANEU, TSH, ABOGEL, ABSGEL ####[place] [address] [place], [place] [address] Lymphocyte, Absolute 2.2 10 3/mcL Normal 0.8-3.9 [facility] ([place]) Comment on above: Performed By: #### V BRITTNEE, RUBIS, HBSAG, RPR ####[place] [address]#### CBC, ADIFF, ANEU, TSH, ABOGEL, ABSGEL ####[facility] [place], [place] [address] Lymphocytes/100 WBC (Bld) 20.5 % Normal 10.0-50.0 [facility] ([place]) Comment on above: Performed By: #### V BRITTNEE, RUBIS, HBSAG, RPR ####[place] [address]#### CBC, ADIFF, ANEU, TSH, ABOGEL, ABSGEL ####[place] [address] [place], [place] [address] Monocyte, Absolute 0.6 10 3/mcL Normal 0.2-1.0 [facility] ([place]) Comment on above: Performed By: #### V BRITTNEE, RUBIS, HBSAG, RPR ####[place] [address]#### CBC, ADIFF, ANEU, TSH, ABOGEL, ABSGEL ####[place] [address] [place], [place] [address] Monocytes/100 WBC (Bld) 5.6 % Normal 1.7-13.0 [facility] ([place]) Comment on above: Performed By: #### V BRITTNEE, RUBIS, HBSAG, RPR ####[place] [address]#### CBC, ADIFF, ANEU, TSH, ABOGEL, ABSGEL ####[facility] [place], [place] [address] Neutrophils/100 WBC (Bld) 73.2 % Normal 37.0-80.0 [facility] ([place]) Comment on above: Performed By: #### V BRITTNEE, RUBIS, HBSAG, RPR ####[place] [address]#### CBC, ADIFF, ANEU, TSH, ABOGEL, ABSGEL ####[facility] [place], [place] [address] .NEUABSon 09-23-2023 Neutrophil, Absolute 7.8 10 3/mcL High 2.9-6.2 [facility] ([place]) Comment on above: Performed By: #### V BRITTNEE, RUBIS, HBSAG, RPR ####[place] [address]#### CBC, ADIFF, ANEU, TSH, ABOGEL, ABSGEL ####[facility] [place], [place] [address] ABO/Rh (Gel)on 09-23-2023 ABO/Rh Interp Positive Invalid Interpretation Code [facility] ([place]) Comment on above: Performed By: #### V BRITTNEE, RUBIS, HBSAG, RPR ####[place] [address]#### CBC, ADIFF, ANEU, TSH, ABOGEL, ABSGEL ####[facility] [place], [place] [address] ABS (Gel)on 09-23-2023 ABSC Interp (Gel) Negative Normal [facility] ([place]) Comment on above: Performed By: #### V BRITTNEE, RUBIS, HBSAG, RPR ####[place] [address]#### CBC, ADIFF, ANEU, TSH, ABOGEL, ABSGEL ####[facility] [place], [place] [address] CBCon 09-23-2023 Erythrocyte distribution width (RBC) [Ratio] 15.0 % High 11.5-14.5 [facility] ([place]) Comment on above: Performed By: #### V BRITTNEE, RUBIS, HBSAG, RPR ####[place] [address]#### CBC, ADIFF, ANEU, TSH, ABOGEL, ABSGEL ####[facility] [place] [id number] Hematocrit (Bld) [Volume fraction] 36.2 % Low 37.0-47.0 [facility] ([place]) Comment on above: Performed By: #### V BRITTNEE, RUBIS, HBSAG, RPR ####[place] [address]#### CBC, ADIFF, ANEU, TSH, ABOGEL, ABSGEL ####[place] [address] Hgb 11.9 G/dL Low 12.0-16.0 [facility] ([place]) Comment on above: Performed By: #### V BRITTNEE, RUBIS, HBSAG, RPR ####[place] [address]#### CBC, ADIFF, ANEU, TSH, ABOGEL, ABSGEL ####[facility] [place] [id number] MCH (RBC) [Entitic mass] 24.8 pg Low 27.0-31.2 [facility] ([place]) Comment on above: Performed By: #### V BRITTNEE, RUBIS, HBSAG, RPR ####[place] [address]#### CBC, ADIFF, ANEU, TSH, ABOGEL, ABSGEL ####[facility] [place] [id number] MCHC 32.8 G/dL Low 33.0-37.0 [facility] ([place]) Comment on above: Performed By: #### V BRITTNEE, RUBIS, HBSAG, RPR ####[place] [address]#### CBC, ADIFF, ANEU, TSH, ABOGEL, ABSGEL ####[place] [address] [place], [place] [address] MCV (RBC) [Entitic vol] 75.5 fL Low 80.0-94.0 [facility] ([place]) Comment on above: Performed By: #### V BRITTNEESONU, HBSAG, RPR ####[place] [address]#### CBC, ADIFF, ANEU, TSH, ABOGEL, ABSGEL ####[place] [address] [place], [place] [address] Platelet 162 10 3/mcL Normal 130-400 [facility] ([place]) Comment on above: Performed By: #### V SONU BEAULIEU, HBSAG, RPR ####[place] [address]#### CBC, ADIFF, ANEU, TSH, ABOGEL, ABSGEL ####[place] [address] [place], [place] [address] Platelet mean volume (Bld) [Entitic vol] 9.5 fL Normal 7.4-10.4 [facility] ([place]) Comment on above: Performed By: #### V BRITTNEE, RUBIS, HBSAG, RPR ####[place] [address]#### CBC, ADIFF, ANEU, TSH, ABOGEL, ABSGEL ####[place] [address] [place], [place] [address] RBC 4.80 10 6/mcL Normal 4.20-5.40 [facility] ([place]) Comment on above: Performed By: #### V BRITTNEE, RUBIS, HBSAG, RPR ####[place] [address]#### CBC, ADIFF, ANEU, TSH, ABOGEL, ABSGEL ####[place] [address] [place], [place] [address] WBC 10.7 10 3/mcL Normal 4.6-10.8 [facility] ([place]) Comment on above: Performed By: #### V BRITTNEE, RUBIS, HBSAG, RPR ####[address] [address]#### CBC, ADIFF, ANEU, TSH, ABOGEL, ABSGEL ####[address] [address] [place], [place] [address] HBSAGon 09-23-2023 Hep B Surf Ag Non-Reactive Normal Non-Reactive [facility] ([place]) Comment on above: Performed By: #### V BRITTNEE, RUBIS, HBSAG, RPR ####[address] [address]#### CBC, ADIFF, ANEU, TSH, ABOGEL, ABSGEL ####[place] [address] [place], [place] [address] LABORATORYOrdered By: Monica Chiu on 09-23-2023 ABO and Rh group Nom (Bld) Blood group B Rh(D) positive Invalid Interpretation Code AO BB Auto SS Blood group antibody screen Ql Negative ABSC (09/23/23 2:02 PM) Normal AO BB Auto SS LABORATORYOrdered By: SYSTEM SYSTEM on 09-23-2023 Basophil, Absolute 0.0 103/mcL [...] 09-23-2023 TSH Qn 0.68 m[IU]/L Normal 0.36-3.74 [facility] ([place]) Comment on above: Performed By: #### V BRITTNEE, RUBIS, HBSAG, RPR ####[address] [address]#### CBC, ADIFF, ANEU, TSH, ABOGEL, ABSGEL ####[place] [place], [place] [address] CTPCRon 09-09-2023 C. trachomatis Interp Normal See CT Interp N [facility] ([place]) Comment on above: Result Comment: C. t rachomatis DNA not detected. Specimen is presumptive negative forC. trachomatis.A negative result does not preclude C. trachomatis infection becauseresults depend on adequate specimen collection, absence of inhibitors,and sufficient DNA to be detected.See CT Interp N Performed By: #### N GPCR1, CTPCR ####[place] [address] C.trachomatis PCR Negative Normal Negative [facility] ([place]) Comment on above: Result Comment: Scar cular (PCR) assay performed on the [employer] 4800 system. Performed By: #### N GPCR1, CTPCR ####[place] [address] Chlam Source Cervix Normal [facility] ([place]) Comment on above: Performed By: #### N GPCR1, CTPCR ####[place] [address] [id number] 09-09-2023 GC PCR Source Cervix Normal [facility] ([place]) Comment on above: Performed By: #### N GPCR1, CTPCR ####[place] [address] N. gonorrhoeae (PCR) Negative Normal Negative [facility] ([place]) Comment on above: Result Comment: Scar cular (PCR) assay performed on the [employer] 4800 System. Performed By: #### N GPCR1, CTPCR ####[place] [address] N. gonorrhoeae Interp Normal See NG Interp N [facility] ([place]) Comment on above: Result Comment: N. g onorrhoeae DNA not detected. Specimen is presumptive negative forN. gonorrhoeae. A negative result does not preclude Neisseria gonorrhoeaeinfection because results depend on adequate specimen collection, absenceof inhibitors, and sufficient DNA to be detected.See NG Interp N Performed By: #### N GPCR1, CTPCR ####[place] [address] LABORATORYOrdered By: Miladis Strickland on 09-08-2023 C. trachomatis DNA JULIANNE+probe Ql (Unsp spec) Negative 2 (09/08/23 1:08 PM) Normal Negative AH Auto [...] be detected. Normal See CT Interp N Auto Viro/Sero SS N. gonorrhoeae DNA JULIANNE+probe Ql (Unsp spec) Negative 1 (09/08/23 1:08 PM) Normal Negative Auto Viro/Sero SS Comment on above: Interpretive Data: M olecular (PCR) assay performed on the [employer] 4800 System. N. gonorrhoeae DNA JULIANNE+probe Ql (Unsp spec) N. gonorrhoeae DNA not detected. Specimen is presumptive negative forN. gonorrhoeae. A negative result does not preclude Neisseria gonorrhoeaeinfection because results depend on adequate specimen collection, absenceof inhibitors, and sufficient DNA to be detected. Normal See NG Interp N Auto Viro/Sero SS Laboratory - Specimen inform ationOrdered By: Miladis Strickland on 09-08-2023 Specimen source Nom (Unsp spec) Cervix (09/08/23 1:08 PM) Normal Auto Viro/Sero SS .Auto Diffon 02-22-2023 Basophil, Absolute 0.1 10 3/mcL Normal 0.0-0.3 [facility] ([place]) Comment on above: Performed By: #### C NATHAN MAO, ADIFF ####[place] [address] [place] [address] Basophils/100 WBC (Bld) 0.7 % Normal 0.0-2.5 [facility] ([place]) Comment on above: Performed By: #### C NATHAN MAO, ADIFF ####[place] [address] [place] [address] Eosinophil, Absolute 0.0 10 3/mcL Normal 0.0-0.7 [facility] ([place]) Comment on above: Performed By: #### C NATHAN MAO, ADIFF ####[place] [address] [place] [address] Eosinophils/100 WBC (Bld) 0.0 % Normal 0.0-6.0 [facility] ([place]) Comment on above: Performed By: #### C NATHAN MAO, ADIFF ####[address] [address] Lymphocyte, Absolute 2.9 10 3/mcL Normal 0.9-4.3 [facility] ([place]) Comment on above: Performed By: #### NATHAN PADILLA, ADIFF ####[address] [address] Lymphocytes/100 WBC (Bld) 23.5 % Normal 20.0-40.0 [facility] ([place]) Comment on above: Performed By: #### NATHAN PADILLA ADIFF ####[address] [address] Monocyte, Absolute 1.0 10 3/mcL Normal 0.1-1.4 [facility] ([place]) Comment on above: Performed By: #### C NATHAN MAO, ADIFF ####[address] [address] Monocytes/100 WBC (Bld) 8.3 % Normal 2.0-13.0 [facility] ([place]) Comment on above: Performed By: #### C NATHAN MAO, ADIFF ####[address] [address] Neutrophils/100 WBC (Bld) 67.5 % Normal 50.0-75.0 [facility] ([place]) Comment on above: Performed By: #### NATHAN PADILLA, ADIFF ####[address] [address] .NEUABSon 02-22-2023 Neutrophil, Absolute 8.2 10 3/mcL High 2.3-8.1 [facility] ([place]) Comment on above: Performed By: #### C NATHAN MAO, ADIFF ####[address] [address] CBCon 02-22-2023 Erythrocyte distribution width (RBC) [Ratio] 15.4 % Normal 11.5-15.5 [facility] ([place]) Comment on above: Performed By: #### C BC, ANEU, ADIFF ####[address] [address] Hematocrit (Bld) [Volume fraction] 30.0 % Low 34.0-46.0 [facility] ([place]) Comment on above: Performed By: #### C BC, ANEU, ADIFF ####[address] [address] Hgb 9.8 G/dL Low 12.0-16.0 [facility] ([place]) Comment on above: Performed By: #### C BC, ANEU, ADIFF ####[address] [address] MCH (RBC) [Entitic mass] 24.3 pg Low 27.0-33.0 [facility] ([place]) Comment on above: Performed By: #### C BC, ANEU, ADIFF ####[place] [address] MCHC 32.8 G/dL Normal 32.0-36.0 [facility] ([place]) Comment on above: Performed By: #### C BC, ANEU, ADIFF ####[place] [address] MCV (RBC) [Entitic vol] 74.1 fL Low 80.0-99.0 [facility] ([place]) Comment on above: Performed By: #### C BC, ANEU, ADIFF ####[address] [address] Platelet 136 10 3/mcL Low 150-450 [facility] ([place]) Comment on above: Performed By: #### C BC, ANEU, ADIFF ####[address] [address] Platelet mean volume (Bld) [Entitic vol] 10.7 fL High 6.6-10.5 [facility] ([place]) Comment on above: Performed By: #### C BC, ANEU, ADIFF ####[address] [address] RBC 4.05 10 6/mcL Low 4.10-5.30 [facility] ([place]) Comment on above: Performed By: #### C BC, ANEU, ADIFF ####[facility] [place] [address] WBC 12.1 10 3/mcL High 4.5-10.8 [facility] ([place]) Comment on above: Performed By: #### C BC, ANEU, ADIFF ####[facility] [place] [address] LABORATORYOrdered By: Trang Keys on 02-22-2023 Blood Glucose Testing Reason Routine (02/22/23 5:30 AM) [facility] Work Phone: Glucose [Mass/Vol] 99 mg/dL Normal 70 - 110 mg/dL [facility] Work Phone: Comment on above: Result Comment: fast ing blood sugar LABORATORYOrdered By: SYSTEM SYSTEM on 02-22-2023 Basophils (Bld) [#/Vol] 0.1 103/mcL Normal 0.0 - 0.3 10^3/mcL AH Workflow SS Basophils/100 WBC (Bld) 0.7 % Normal 0.0 - 2.5 % AH Workflow SS Eosinophils (Bld) [#/Vol] 0.0 103/mcL Normal 0.0 - 0.7 10^3/mcL Workflow SS Eosinophils/100 WBC (Bld) 0.0 % [...] 2.9 103/mcL Normal 0.9 - 4.3 10^3/mcL Workflow SS Lymphocytes/100 WBC (Bld) 23.5 % Normal 20.0 - 40.0 % AH Workflow SS MCH (RBC) [Entitic mass] 24.3 pg Low 27.0 - 33.0 pg AH Workflow SS MCHC 32.8 G/dL Normal 32.0 - 36.0 G/dL AH Workflow SS MCV (RBC) [Entitic vol] 74.1 fL Low 80.0 - 99.0 fL Workflow SS Monocytes (Bld) [#/Vol] 1.0 103/mcL Normal 0.1 - 1.4 10^3/mcL Workflow SS Monocytes/100 WBC (Bld) 8.3 % Normal 2.0 - 13.0 % Workflow SS Neutrophils (Bld) [#/Vol] 8.2 103/mcL High 2.3 - 8.1 10^3/mcL Workflow SS Neutrophils/100 WBC (Bld) 67.5 % Normal 50.0 - 75.0 % Workflow SS Platelet mean volume (Bld) [Entitic vol] 10.7 fL High 6.6 - 10.5 fL Workflow SS Platelets (Bld) [#/Vol] 136 103/mcL Low 150 - 450 10^3/mcL Workflow SS RBC (Bld) [#/Vol] 4.05 106/mcL Low 4.10 - 5.3 0 10^6/mcL Workflow SS WBC (Bld) [#/Vol] 12.1 103/mcL High 4.5 - 10.8 10^3/mcL Workflow SS RPRon 02-22-2023 Reagin Ab RPR Ql (S) Non-Reactive Normal Non-Reactive [facility] ([place]) Comment on above: Result Comment: The RPR [...] A WAYNE, RPR, ABSGEL, CBC, ABOGEL, ADIFF ####[address] [address] .Auto Diffon 02-21-2023 Basophil, Absolute 0.0 10 3/mcL Normal 0.0-0.3 [facility] ([place]) Comment on above: Performed By: #### A WAYNE, RPR, ABSGEL, CBC, ABOGEL, ADIFF ####[address] [address] Eosinophil, Absolute 0.0 10 3/mcL Normal 0.0-0.7 [facility] ([place]) Comment on above: Performed By: #### A WAYNE, RPR, ABSGEL, CBC, ABOGEL, ADIFF ####[address] [address] Lymphocyte, Absolute 1.7 10 3/mcL Normal 0.9-4.3 [facility] ([place]) Comment on above: Performed By: #### A WAYNE, RPR, ABSGEL, CBC, ABOGEL, ADIFF ####[place] [address] Monocyte, Absolute 0.5 10 3/mcL Normal 0.1-1.4 [facility] ([place]) Comment on above: Performed By: #### A WAYNE, RPR, ABSGEL, CBC, ABOGEL, ADIFF ####[place] [address] .Auto DiffOrdered By: SYSTEM SYSTEM on 02-21-2023 Basophils/100 WBC (Bld) 0.6 % Normal 0.0-2.5 AH Workflow SS Comment on above: Performed By: #### A WAYNE, RPR, ABSGEL, CBC, ABOGEL, ADIFF ####[address] [address] Eosinophils/100 WBC (Bld) 0.1 % Normal 0.0-6.0 AH Workflow SS Comment on above: Performed By: #### A WAYNE, RPR, ABSGEL, CBC, ABOGEL, ADIFF ####[address] [address] Lymphocytes/100 WBC (Bld) 21.4 % Normal 20.0-40.0 AH Workflow SS Comment on above: Performed By: #### A WAYNE, RPR, ABSGEL, CBC, ABOGEL, ADIFF ####[place] [address] Monocytes/100 WBC (Bld) 5.9 % Normal 2.0-13.0 AH Workflow SS Comment on above: Performed By: #### A WAYNE, RPR, ABSGEL, CBC, ABOGEL, ADIFF ####[address] [address] Neutrophils/100 WBC (Bld) 72.0 % Normal 50.0-75.0 AH Workflow SS Comment on above: Performed By: #### A WAYNE, RPR, ABSGEL, CBC, ABOGEL, ADIFF ####[address] [address] .NEUABSon 02-21-2023 Neutrophil, Absolute 5.9 10 3/mcL Normal 2.3-8.1 [facility] ([place]) Comment on above: Performed By: #### A WAYNE, RPR, ABSGEL, CBC, ABOGEL, ADIFF ####[place] [address] ABO/Rh (Gel)on 02-21-2023 ABO/Rh Interp Positive Invalid Interpretation Code [facility] ([place]) Comment on above: Performed By: #### A WAYNE, RPR, ABSGEL, CBC, ABOGEL, ADIFF ####[place] [address] ABS (Gel)on 02-21-2023 ABSC Interp (Gel) Negative Normal [facility] ([place]) Comment on above: Performed By: #### A WAYNE, RPR, ABSGEL, CBC, ABOGEL, ADIFF ####[address] [address] CBCOrdered By: SYSTEM SYSTEM on 02-21-2023 Erythrocyte distribution width (RBC) [Ratio] 15.4 % Normal 11.5-15.5 AH Workflow SS Comment on above: Performed By: #### A WAYNE, RPR, ABSGEL, CBC, ABOGEL, ADIFF ####[place] [address] Hematocrit (Bld) [Volume fraction] 31.8 % Low 34.0-46.0 AH Workflow SS Comment on above: Performed By: #### A WAYNE, RPR, ABSGEL, CBC, ABOGEL, ADIFF ####[address] [address] MCH (RBC) [Entitic mass] 24.4 pg Low 27.0-33.0 AH Workflow SS Comment on above: Performed By: #### A WAYNE, RPR, ABSGEL, CBC, ABOGEL, ADIFF ####[place] [address] MCHC 33.0 G/dL Normal 32.0-36.0 AH Workflow SS Comment on above: Performed By: #### A WAYNE, RPR, ABSGEL, CBC, ABOGEL, ADIFF ####[place] [address] MCV (RBC) [Entitic vol] 74.0 fL Low 80.0-99.0 AH Workflow SS Comment on above: Performed By: #### A WAYNE, RPR, ABSGEL, CBC, ABOGEL, ADIFF ####[place] [address] Platelet mean volume (Bld) [Entitic vol] 11.0 fL High 6.6-10.5 AH Workflow SS Comment on above: Performed By: #### A WAYNE, RPR, ABSGEL, CBC, ABOGEL, ADIFF ####[place] [address] CBCon 02-21-2023 Hgb 10.5 G/dL Low 12.0-16.0 [facility] ([place]) Comment on above: Performed By: #### A WAYNE, RPR, ABSGEL, CBC, ABOGEL, ADIFF ####[place] [address] Platelet 119 10 3/mcL Low 150-450 [facility] ([place]) Comment on above: Performed By: #### A WAYNE, RPR, ABSGEL, CBC, ABOGEL, ADIFF ####[place] [address] RBC 4.29 10 6/mcL Normal 4.10-5.30 [facility] ([place]) Comment on above: Performed By: #### A WAYNE, RPR, ABSGEL, CBC, ABOGEL, ADIFF ####[place] [address] WBC 8.2 10 3/mcL Normal 4.5-10.8 [facility] ([place]) Comment on above: Performed By: #### A WAYNE, RPR, ABSGEL, CBC, ABOGEL, ADIFF ####[facility] [place] [address] LABORATORYOrdered By: Halina Middleton on 02-21-2023 Blood Glucose Testing Reason Routine (02/21/23 10:53 AM) [facility] Work Phone: Glucose [Mass/Vol] 74 mg/dL Normal 70 - 110 mg/dL [facility] Work Phone: ABO and Rh group Nom (Bld) B positive (02/21/23 10:34 AM) [facility] Work Phone: Group B Strep Date Performed [id number] [facility] Work Phone: Group B Strep, External Negative (02/21/23 10:34 AM) [facility] Work Phone: Hepatitis B Date Performed [id number] [facility] Work Phone: Hepatitis B, External Negative (02/21/23 10:34 AM) [facility] Work Phone: HIV Antibodies, External Negative (02/21/23 10:34 AM) [facility] Work Phone: RPR, External Nonreactive (02/21/23 10:34 AM) [facility] Work Phone: Rubella, External Immune (02/21/23 10:34 AM) [facility] Work Phone: LABORATORYOrdered By: Linda Alvarez on 02-21-2023 ABO and Rh group Nom (Bld) Blood group B Rh(D) positive Invalid Interpretation Code AH BB Auto SS Blood group antibody screen Ql Negative ABSC (02/21/23 10:00 AM) Normal AH BB Auto SS LABORATORYOrdered By: K[employer]ron SYSTEM on 02-21-2023 Basophils (Bld) [#/Vol] 0.0 [...] with abnormal serum globulins. Progress Noteon 02-18-2023 Bobbin Trucker Authentication Interface Message Text Comanage Gestational Diabetes [...] HS. Discussed sending in BS log through [employer] for review.. Past Medical History: Past Medical [...] Tablet (20 mg) by mouth daily Vit w/Et-Djhoxvubm-NB (PNV PO) Take 1 Tablet by mouth [...] PRECISION DANAY TEST test strip [facility] Ins[facility] Syringe-Needle U-100 31G X 06/29 1 ML MISC Use as directed 40 [...] trimester 01/17/2023 [facility] C[facility] Genetic screening: How often should patient be evaluated? Monthly to 28 weeks, q 2 weeks from 28 to 36 weeks then weekly until delivery. Work restrictions: NA EVALUATION surveillance: Biweekly BPPs Ultrasound: Growth every 4 weeks DELIVERY PLAN Hospital: [facility] C/S at 37.1 weeks Cholestasis of C/S scheduled fro 02/21/2022 @ 1100 GBS culture: per OB Contraception: tubal ligation : Pump and bottle Ped: [facility] Check Name of baby: Boy (more content not included)... Normal [facility] RPRon 02-17-2023 Reagin Ab RPR Ql (S) Non-Reactive Normal Non-Reactive [facility] ([place]) Comment on above: Result Comment: The RPR [...] A WAYNE, ADIFF, MORPH, RPR, CBC, HIV ####[address] [address] .Auto Diffon 02-16-2023 Basophil, Absolute 0.0 10 3/mcL Normal 0.0-0.3 [facility] ([place]) Comment on above: Performed By: #### A WAYNE, ADIFF, MORPH, RPR, CBC, HIV ####[address] [address] Basophils/100 WBC (Bld) 0.5 % Normal 0.0-2.5 [facility] ([place]) Comment on above: Performed By: #### A WAYNE, ADIFF, MORPH, RPR, CBC, HIV ####[address] [address] Eosinophil, Absolute 0.0 10 3/mcL Normal 0.0-0.7 [facility] ([place]) Comment on above: Performed By: #### A WAYNE, ADIFF, MORPH, RPR, CBC, HIV ####[address] [address] Eosinophils/100 WBC (Bld) 0.1 % Normal 0.0-6.0 [facility] ([place]) Comment on above: Performed By: #### A WAYNE, ADIFF, MORPH, RPR, CBC, HIV ####[address] [address] Lymphocyte, Absolute 2.1 10 3/mcL Normal 0.9-4.3 [facility] ([place]) Comment on above: Performed By: #### A WAYNE, ADIFF, MORPH, RPR, CBC, HIV ####[address] [address] Lymphocytes/100 WBC (Bld) 24.7 % Normal 20.0-40.0 [facility] ([place]) Comment on above: Performed By: #### A WAYNE, ADIFF, MORPH, RPR, CBC, HIV ####[address] [address] Monocyte, Absolute 0.4 10 3/mcL Normal 0.1-1.4 [facility] ([place]) Comment on above: Performed By: #### A WAYNE, ADIFF, MORPH, RPR, CBC, HIV ####[address] [address] Monocytes/100 WBC (Bld) 4.2 % Normal 2.0-13.0 [facility] ([place]) Comment on above: Performed By: #### A WAYNE, ADIFF, MORPH, RPR, CBC, HIV ####[address] [address] Neutrophils/100 WBC (Bld) 70.5 % Normal 50.0-75.0 [facility] ([place]) Comment on above: Performed By: #### A WAYNE, ADIFF, MORPH, RPR, CBC, HIV ####[place] [address] .Morphon 02-16-2023 Anisocytosis Ql (Bld) 1+ Normal [facility] ([place]) Comment on above: Performed By: #### A WAYNE, ADIFF, MORPH, RPR, CBC, HIV ####[place] [address] Large Platelets Few Normal [facility] ([place]) Comment on above: Performed By: #### A WAYNE, ADIFF, MORPH, RPR, CBC, HIV ####[address] [address] Microcytosis 2+ Normal [facility] ([place]) Comment on above: Performed By: #### A WAYNE, ADIFF, MORPH, RPR, CBC, HIV ####[place] [address] Platelet Estimate Slt Decreased Normal [facility] ([place]) Comment on above: Performed By: #### A WAYNE, ADIFF, MORPH, RPR, CBC, HIV ####[place] [address] Polychrom 1+ Normal [facility] ([place]) Comment on above: Performed By: #### A WAYNE, ADIFF, MORPH, RPR, CBC, HIV ####[place] [address] .NEUABSon 02-16-2023 Neutrophil, Absolute 6.1 10 3/mcL Normal 2.3-8.1 [facility] ([place]) Comment on above: Performed By: #### A WAYNE, ADIFF, MORPH, RPR, CBC, HIV ####[place] [address] CBCon 02-16-2023 Platelet 139 10 3/mcL Low 150-450 [facility] ([place]) Comment on above: Performed By: #### A WAYNE, ADIFF, MORPH, RPR, CBC, HIV ####[place] [address] Platelet mean volume (Bld) [Entitic vol] 10.4 fL Normal 6.6-10.5 [facility] ([place]) Comment on above: Performed By: #### A WAYNE, ADIFF, MORPH, RPR, CBC, HIV ####[place] [address] Erythrocyte distribution width (RBC) [Ratio] 15.2 % Normal 11.5-15.5 [facility] ([place]) Comment on above: Performed By: #### A WAYNE, ADIFF, MORPH, RPR, CBC, HIV ####[place] [address] Hematocrit (Bld) [Volume fraction] 35.5 % Normal 34.0-46.0 [facility] ([place]) Comment on above: Performed By: #### A WAYNE, ADIFF, MORPH, RPR, CBC, HIV ####[place] [address] Hgb 11.8 G/dL Low 12.0-16.0 [facility] ([place]) Comment on above: Performed By: #### A WAYNE, ADIFF, MORPH, RPR, CBC, HIV ####[place] [address] MCH (RBC) [Entitic mass] 24.5 pg Low 27.0-33.0 [facility] ([place]) Comment on above: Performed By: #### A WAYNE, ADIFF, MORPH, RPR, CBC, HIV ####[place] [address] MCHC 33.3 G/dL Normal 32.0-36.0 [facility] ([place]) Comment on above: Performed By: #### A WAYNE, ADIFF, MORPH, RPR, CBC, HIV ####[place] [address] MCV (RBC) [Entitic vol] 73.4 fL Low 80.0-99.0 [facility] ([place]) Comment on above: Performed By: #### A WAYNE, ADIFF, MORPH, RPR, CBC, HIV ####[place] [address] RBC 4.83 10 6/mcL Normal 4.10-5.30 [facility] ([place]) Comment on above: Performed By: #### A WAYNE, ADIFF, MORPH, RPR, CBC, HIV ####[place] [address] WBC 8.6 10 3/mcL Normal 4.5-10.8 [facility] ([place]) Comment on above: Performed By: #### A WAYNE, ADIFF, MORPH, RPR, CBC, HIV ####[place] [address] CURon 02-16-2023 CUR Normal [facility] ([place]) HIVon 02-16-2023 HIV 1/2 Ab Non-Reactive Normal Non-Reactive [facility] ([place]) Comment on above: Result Comment: Spec imen is negative for anti-HIV-1 and anti-HIV-2. Performed By: #### A WAYNE, ADIFF, MORPH, RPR, CBC, HIV ####[address] [address] .Auto Diffon 02-15-2023 Basophil, Absolute 0.0 10 3/mcL Normal 0.0-0.3 [facility] ([place]) Comment on above: Performed By: #### A BSGEL, ANEU, MORPH, ABOGEL, LD, GFR, CBC, ADIFF, CMP ####[address] [address] Basophils/100 WBC (Bld) 0.5 % Normal 0.0-2.5 [facility] ([place]) Comment on above: Performed By: #### A BSGEL, ANEU, MORPH, ABOGEL, LD, GFR, CBC, ADIFF, CMP ####[address] [address] Eosinophil, Absolute 0.0 10 3/mcL Normal 0.0-0.7 [facility] ([place]) Comment on above: Performed By: #### A BSGEL, ANEU, MORPH, ABOGEL, LD, GFR, CBC, ADIFF, CMP ####[address] [address] Eosinophils/100 WBC (Bld) 0.2 % Normal 0.0-6.0 [facility] ([place]) Comment on above: Performed By: #### A BSGEL, ANEU, MORPH, ABOGEL, LD, GFR, CBC, ADIFF, CMP ####[address] [address] Lymphocyte, Absolute 2.2 10 3/mcL Normal 0.9-4.3 [facility] ([place]) Comment on above: Performed By: #### A BSGEL, ANEU, MORPH, ABOGEL, LD, GFR, CBC, ADIFF, CMP ####[address] [address] Lymphocytes/100 WBC (Bld) 29.4 % Normal 20.0-40.0 [facility] ([place]) Comment on above: Performed By: #### A BSGEL, ANEU, MORPH, ABOGEL, LD, GFR, CBC, ADIFF, CMP ####[address] [address] Monocyte, Absolute 0.5 10 3/mcL Normal 0.1-1.4 [facility] ([place]) Comment on above: Performed By: #### A BSGEL, ANEU, MORPH, ABOGEL, LD, GFR, CBC, ADIFF, CMP ####[address] [address] Monocytes/100 WBC (Bld) 6.8 % Normal 2.0-13.0 [facility] ([place]) Comment on above: Performed By: #### A BSGEL, ANEU, MORPH, ABOGEL, LD, GFR, CBC, ADIFF, CMP ####[address] [address] Neutrophils/100 WBC (Bld) 63.1 % Normal 50.0-75.0 [facility] ([place]) Comment on above: Performed By: #### A BSGEL, ANEU, MORPH, ABOGEL, LD, GFR, CBC, ADIFF, CMP ####[address] [address] .GFRon 02-15-2023 GFR >60 Normal [facility] ([place]) Comment on above: Result Comment: GFR Population [...] MORPH, ABOGEL, LD, GFR, CBC, ADIFF, CMP ####[address] [address] GFR Non- >60 Normal [facility] ([place]) Comment on above: Result Comment: GFR Population [...] MORPH, ABOGEL, LD, GFR, CBC, ADIFF, CMP ####[place] [address] .Morphon 02-15-2023 Anisocytosis Ql (Bld) 1+ Normal [facility] ([place]) Comment on above: Performed By: #### A BSGEL, ANEU, MORPH, ABOGEL, LD, GFR, CBC, ADIFF, CMP ####[place] [address] Microcytosis 2+ Normal [facility] ([place]) Comment on above: Performed By: #### A BSGEL, ANEU, MORPH, ABOGEL, LD, GFR, CBC, ADIFF, CMP ####[place] [address] Platelet Estimate Normal Normal [facility] ([place]) Comment on above: Performed By: #### A BSGEL, ANEU, MORPH, ABOGEL, LD, GFR, CBC, ADIFF, CMP ####[place] [address] Polychrom 1+ Normal [facility] ([place]) Comment on above: Performed By: #### A BSGEL, ANEU, MORPH, ABOGEL, LD, GFR, CBC, ADIFF, CMP ####[place] [address] .NEUABSon 02-15-2023 Neutrophil, Absolute 4.6 10 3/mcL Normal 2.3-8.1 [facility] ([place]) Comment on above: Performed By: #### A BSGEL, ANEU, MORPH, ABOGEL, LD, GFR, CBC, ADIFF, CMP ####[address] [address] ABO/Rh (Gel)on 02-15-2023 ABO/Rh Interp Positive Invalid Interpretation Code [facility] ([place]) Comment on above: Performed By: #### A BSGEL, ANEU, MORPH, ABOGEL, LD, GFR, CBC, ADIFF, CMP ####[place] [id number] ABS (Gel)on 02-15-2023 ABSC Interp (Gel) Negative Normal [facility] ([place]) Comment on above: Performed By: #### A BSGEL, ANEU, MORPH, ABOGEL, LD, GFR, CBC, ADIFF, CMP ####[place] [id number] CBCon 02-15-2023 Platelet 133 10 3/mcL Low 150-450 [facility] ([place]) Comment on above: Performed By: #### A BSGEL, ANEU, MORPH, ABOGEL, LD, GFR, CBC, ADIFF, CMP ####[place] [address] Platelet mean volume (Bld) [Entitic vol] 11.2 fL High 6.6-10.5 [facility] ([place]) Comment on above: Performed By: #### A BSGEL, ANEU, MORPH, ABOGEL, LD, GFR, CBC, ADIFF, CMP ####[place] [address] Erythrocyte distribution width (RBC) [Ratio] 15.1 % Normal 11.5-15.5 [facility] ([place]) Comment on above: Performed By: #### A BSGEL, ANEU, MORPH, ABOGEL, LD, GFR, CBC, ADIFF, CMP ####[place] [address] Hematocrit (Bld) [Volume fraction] 32.6 % Low 34.0-46.0 [facility] ([place]) Comment on above: Performed By: #### A BSGEL, ANEU, MORPH, ABOGEL, LD, GFR, CBC, ADIFF, CMP ####[place] [address] Hgb 11.2 G/dL Low 12.0-16.0 [facility] ([place]) Comment on above: Performed By: #### A BSGEL, ANEU, MORPH, ABOGEL, LD, GFR, CBC, ADIFF, CMP ####[place] [address] MCH (RBC) [Entitic mass] 25.4 pg Low 27.0-33.0 [facility] ([place]) Comment on above: Performed By: #### A BSGEL, ANEU, MORPH, ABOGEL, LD, GFR, CBC, ADIFF, CMP ####[place] [address] MCHC 34.3 G/dL Normal 32.0-36.0 [facility] ([place]) Comment on above: Performed By: #### A BSGEL, ANEU, MORPH, ABOGEL, LD, GFR, CBC, ADIFF, CMP ####[place] [address] MCV (RBC) [Entitic vol] 74.1 fL Low 80.0-99.0 [facility] ([place]) Comment on above: Performed By: #### A BSGEL, ANEU, MORPH, ABOGEL, LD, GFR, CBC, ADIFF, CMP ####[place] [address] RBC 4.40 10 6/mcL Normal 4.10-5.30 [facility] ([place]) Comment on above: Performed By: #### A BSGEL, ANEU, MORPH, ABOGEL, LD, GFR, CBC, ADIFF, CMP ####[place] [address] WBC 7.0 10 3/mcL Normal 4.5-10.8 [facility] ([place]) Comment on above: Performed By: #### A BSGEL, ANEU, MORPH, ABOGEL, LD, GFR, CBC, ADIFF, CMP ####[place] [address] CMPon 02-15-2023 Albumin Level 2.1 G/dL Low 3.2-4.8 [facility] ([place]) Comment on above: Performed By: #### A BSGEL, ANEU, MORPH, ABOGEL, LD, GFR, CBC, ADIFF, CMP ####[address] [address] Albumin/Globulin [Mass ratio] 0.5 {ratio} Low 0.9-1.6 [facility] ([place]) Comment on above: Performed By: #### A BSGEL, ANEU, MORPH, ABOGEL, LD, GFR, CBC, ADIFF, CMP ####[address] [address] ALP [Catalytic activity/Vol] 299 U/L High 38-126 [facility] ([place]) Comment on above: Performed By: #### A BSGEL, ANEU, MORPH, ABOGEL, LD, GFR, CBC, ADIFF, CMP ####[address] [address] ALT [Catalytic activity/Vol] 62 U/L High 10-49 [facility] ([place]) Comment on above: Performed By: #### A BSGEL, ANEU, MORPH, ABOGEL, LD, GFR, CBC, ADIFF, CMP ####[address] [address] AST [Catalytic activity/Vol] 42 U/L High 8-34 [facility] ([place]) Comment on above: Performed By: #### A BSGEL, ANEU, MORPH, ABOGEL, LD, GFR, CBC, ADIFF, CMP ####[place] [id number] Bili Total 0.50 mg/dL Normal 0.20-1.20 [facility] ([place]) Comment on above: Result Comment: Use of this assay is not recommended for patients undergoing treatment with eltrombopag due to the potential for falsely elevated results. Performed By: #### A BSGEL, ANEU, MORPH, ABOGEL, LD, GFR, CBC, ADIFF, CMP ####[address] [address] BUN/Creatinine Ratio 14.8 ratio Normal 10.0-22.0 [facility] ([place]) Comment on above: Performed By: #### A BSGEL, ANEU, MORPH, ABOGEL, LD, GFR, CBC, ADIFF, CMP ####[address] [address] Calcium [Mass/Vol] 8.4 mg/dL Low 8.7-10.4 [facility] ([place]) Comment on above: Performed By: #### A BSGEL, ANEU, MORPH, ABOGEL, LD, GFR, CBC, ADIFF, CMP ####[address] [address] Chloride [Moles/Vol] 109 mmol/L Normal 98-110 [facility] ([place]) Comment on above: Performed By: #### A BSGEL, ANEU, MORPH, ABOGEL, LD, GFR, CBC, ADIFF, CMP ####[address] [address] CO2 [Moles/Vol] 23 mmol/L Normal 22-32 [facility] ([place]) Comment on above: Performed By: #### A BSGEL, ANEU, MORPH, ABOGEL, LD, GFR, CBC, ADIFF, CMP ####[address] [address] Creatinine [Mass/Vol] 0.54 mg/dL Normal 0.50-1.20 [facility] ([place]) Comment on above: Performed By: #### A BSGEL, ANEU, MORPH, ABOGEL, LD, GFR, CBC, ADIFF, CMP ####[address] [address] Electrolyte Balance 8.0 mEq/L Normal 4.0-15.0 [facility] ([place]) Comment on above: Performed By: #### A BSGEL, ANEU, MORPH, ABOGEL, LD, GFR, CBC, ADIFF, CMP ####[address] [address] Globulin 4.0 G/dL High 1.5-3.8 [facility] ([place]) Comment on above: Performed By: #### A BSGEL, ANEU, MORPH, ABOGEL, LD, GFR, CBC, ADIFF, CMP ####[place] [address] Glucose [Mass/Vol] 79 mg/dL Normal 70-110 [facility] ([place]) Comment on above: Performed By: #### A BSGEL, ANEU, MORPH, ABOGEL, LD, GFR, CBC, ADIFF, CMP ####[address] [address] Potassium [Moles/Vol] 4.0 mmol/L Normal 3.5-5.0 [facility] ([place]) Comment on above: Performed By: #### A BSGEL, ANEU, MORPH, ABOGEL, LD, GFR, CBC, ADIFF, CMP ####[address] [address] Sodium [Moles/Vol] 140 mmol/L Normal 136-145 [facility] ([place]) Comment on above: Performed By: #### A BSGEL, ANEU, MORPH, ABOGEL, LD, GFR, CBC, ADIFF, CMP ####[address] [address] Total Protein 6.1 G/dL Normal 5.7-8.2 [facility] ([place]) Comment on above: Result Comment: No te - New Reference Range in effect 19 Performed By: #### A BSGEL, ANEU, MORPH, ABOGEL, LD, GFR, CBC, ADIFF, CMP ####[address] [address] Urea nitrogen [Mass/Vol] 8.0 mg/dL Normal 8.0-22.0 [facility] ([place]) Comment on above: Performed By: #### A BSGEL, ANEU, MORPH, ABOGEL, LD, GFR, CBC, ADIFF, CMP ####[address] [address] LABORATORYOrdered By: Daren Devi on 02-15-2023 ABO [...] 299 U/L High 38 - 126 U/L ADM SS ALT No additional P-5'-P [Catalytic activity/Vol] 62 U/L High 10 - 49 U/L ADM SS Anisocytosis Ql (Bld) 1+ *NA* (02/15/23 3:56 PM) Invalid Interpretation Code Workflow SS AST [Catalytic activity/Vol] 42 U/L High 8 - 34 U/L ADM SS Basophils (Bld) [#/Vol] 0.0 103/mcL Normal 0.0 - 0.3 10^3/mcL Workflow SS Basophils/100 WBC (Bld) 0.5 % Normal 0.0 - 2.5 % Workflow [...] 32.6 % Low 34.0 - 46.0 % Workflow SS Hemoglobin (Bld) [Mass/Vol] 11.2 G/dL Low 12.0 - 16.0 G/dL Workflow SS LDH Lactate to pyruvate reaction [Catalytic activity/Vol] 279 1 High 120 - 246 U/L ADM SS Lymphocytes (Bld) [#/Vol] 2.2 103/mcL Normal 0.9 - 4.3 10^3/mcL Workflow SS Lymphocytes/100 WBC (Bld) 29.4 % [...] *NA* (02/15/23 3:56 PM) Invalid Interpretation Code Workflow SS Polychromasia LM Ql (Bld) 1+ [...] 140 mmol/L Normal 136 - 145 mEq/L ADM [...] LDHon 02-15-2023 LDH 279 U/L High 120-246 [facility] ([place]) Comment on above: Performed By: #### A BSGEL, ANEU, MORPH, ABOGEL, LD, GFR, CBC, ADIFF, CMP ####[place] [address] RPCURon 02-15-2023 U Creatinine 222.9 mg/dL Normal [facility] ([place]) Comment on above: Performed By: #### U A, UAMIC, RPCUR ####[place] [address] U Protein 64.1 mg/dL Normal [facility] ([place]) Comment on above: Performed By: #### U A, UAMIC, RPCUR ####[place] [address] U Ratio Prot/Creat 0.3 ratio Normal [facility] ([place]) Comment on above: Result Comment: resu lt calculated by rule GL_[id number]_[id number]_OLD(U Protein/U Creatinine) Performed By: #### U A, UAMIC, RPCUR ####[place] [address] UAon 02-15-2023 Color (U) DARK YELLOW Normal [facility] ([place]) Comment on above: Performed By: #### U A, UAMIC, RPCUR ####[place] [address] Glucose (U) [Mass/Vol] Negative Normal Negative [facility] ([place]) Comment on above: Performed By: #### U A, UAMIC, RPCUR ####[place] [address] Ketones Ql (U) Negative Normal Neg-Trace [facility] ([place]) Comment on above: Performed By: #### U A, UAMIC, RPCUR ####[place] [address] UA Appear Turbid Abnormal Clear [facility] ([place]) Comment on above: Performed By: #### U A, UAMIC, RPCUR ####[place] [address] UA Blood Negative Normal Neg-Trace [facility] ([place]) Comment on above: Performed By: #### U A, UAMIC, RPCUR ####[place] [address] UA Leuk Est Moderate Abnormal Negative [facility] ([place]) Comment on above: Performed By: #### U A, UAMIC, RPCUR ####[place] [address] UA Nitrite Negative Normal Negative [facility] ([place]) Comment on above: Performed By: #### U A, UAMIC, RPCUR ####[place] [address] UA pH 7.0 Normal 5.0 - 8.0 [facility] ([place]) Comment on above: Performed By: #### U A, UAMIC, RPCUR ####[place] [address] UA Protein 30 mg/dL Normal Negative [facility] ([place]) Comment on above: Performed By: #### U A, UAMIC, RPCUR ####[place] [address] UA Spec Grav 1.025 Normal 1.006-1.029 [facility] ([place]) Comment on above: Performed By: #### U A, UAMIC, RPCUR ####[place] [address] UA Specimen Type Clean Catch Normal [facility] ([place]) Comment on above: Performed By: #### U A, UAMIC, RPCUR ####[place] [address] UA Urobilinogen 1.0 E.U./dL Normal 0.2-1.0 [facility] ([place]) Comment on above: Performed By: #### U A, UAMIC, RPCUR ####[place] [address] Urobilinogen (U) [Mass/Vol] Negative Normal Neg-Trace [facility] ([place]) Comment on above: Performed By: #### U A, UAMIC, RPCUR ####[place] [address] UAMICon 02-15-2023 UA Bacteria 2+ /hpf Abnormal Negative [facility] ([place]) Comment on above: Performed By: #### U A, UAMIC, RPCUR ####[place] [address] UA Mucous 1+ /hpf Normal [facility] ([place] Comment on above: Performed By: #### U A, UAMIC, RPCUR ####[place] [address] UA RBC 10-20 Abnormal 0-2 [facility] ([place] Comment on above: Performed By: #### U A, UAMIC, RPCUR ####[place] [address] UA Squam Epithelial 10-20 Normal 0-20 [facility] ([place]) Comment on above: Performed By: #### U A, UAMIC, RPCUR ####[place] [address] UA WBC 25-50 Abnormal 0-5 [facility] ([place]) Comment on above: Performed By: #### U A, UAMIC, RPCUR ####[place] [address] CTPCRon 02-13-2023 C. trachomatis Interp Normal See CT Interp N [facility] ([place]) Comment on above: Result Comment: C. t rachomatis DNA not detected. Specimen is presumptive negative forC. trachomatis.A negative result does not preclude C. trachomatis infection becauseresults depend on adequate specimen collection, absence of inhibitors,and sufficient DNA to be detected.See CT Interp N Performed By: #### C TPCR, NGPCR1 ####[place] [address] C.trachomatis PCR Negative Normal Negative [facility] ([place]) Comment on above: Result Comment: Mole cular (PCR) assay performed on the [employer] 4800 system. Performed By: #### C TPCR, NGPCR1 ####[address] [address] Chlam Source Cervix Normal [facility] ([place]) Comment on above: Performed By: #### C TPCR, NGPCR1 ####[place] [id number] CURon 02-13-2023 CUR Normal [facility] ([place]) [id number] 02-13-2023 GC PCR Source Cervix Normal [facility] ([place]) Comment on above: Performed By: #### C TPCR, NGPCR1 ####[place] [address] N. gonorrhoeae (PCR) Negative Normal Negative [facility] ([place]) Comment on above: Result Comment: Mole cular (PCR) assay performed on the [employer] 4800 System. Performed By: #### C TPCR, NGPCR1 ####[place] [address] N. gonorrhoeae Interp Normal See NG Interp N [facility] ([place]) Comment on above: Result Comment: N. g onorrhoeae DNA not detected. Specimen is presumptive negative forN. gonorrhoeae. A negative result does not preclude Neisseria gonorrhoeaeinfection because results depend on adequate specimen collection, absenceof inhibitors, and sufficient DNA to be detected.See NG Interp N Performed By: #### C TPCR, NGPCR1 ####[place] [address] LABORATORYOrdered By: Aiyana Nathan on 02-12-2023 Appearance [...] SS UAon 02-12-2023 Color (U) Yellow Normal [facility] ([place]) Comment on above: Performed By: #### U A, UAMIC ####[address] [address] Glucose (U) [Mass/Vol] Negative Normal Negative [facility] ([place]) Comment on above: Performed By: #### U A, UAMIC ####[address] [address] Ketones Ql (U) Negative Normal Neg-Trace [facility] ([place]) Comment on above: Performed By: #### U A, UAMIC ####[address] [address] UA Appear Hazy Abnormal Clear [facility] ([place]) Comment on above: Performed By: #### U A, UAMIC ####[place] [address] UA Blood Negative Normal Neg-Trace [facility] ([place]) Comment on above: Performed By: #### U A, UAMIC ####[place] [address] UA Leuk Est Trace Normal Negative [facility] ([place]) Comment on above: Performed By: #### U A, UAMIC ####[place] [address] UA Nitrite Negative Normal Negative [facility] ([place]) Comment on above: Performed By: #### U A, UAMIC ####[place] [address] UA pH 7.5 Normal 5.0 - 8.0 [facility] ([place]) Comment on above: Performed By: #### U A, UAMIC ####[place] [address] UA Protein Negative Normal Negative [facility] ([place]) Comment on above: Performed By: #### U A, UAMIC ####[place] [address] UA Spec Grav 1.010 Normal 1.006-1.029 [facility] ([place]) Comment on above: Performed By: #### U A, UAMIC ####[place] [address] UA Specimen Type Clean Catch Normal [facility] ([place]) Comment on above: Performed By: #### U A, UAMIC ####[place] [address] UA Urobilinogen 1.0 E.U./dL Normal 0.2-1.0 [facility] ([place]) Comment on above: Performed By: #### U A, UAMIC ####[place] [address] Urobilinogen (U) [Mass/Vol] Negative Normal Neg-Trace [facility] ([place]) Comment on above: Performed By: #### U A, UAMIC ####[place] [id number] UAMICon 02-12-2023 UA Bacteria 3+ /hpf Abnormal Negative [facility] ([place]) Comment on above: Performed By: #### U A, UAMIC ####[facility] [place] [address] UA RBC 0-2 Normal 0-2 [facility] ([place]) Comment on above: Performed By: #### U A, UAMIC ####[facility] [place] [address] UA Squam Epithelial 5-10 Normal 0-20 [facility] ([place]) Comment on above: Performed By: #### U A, UAMIC ####[facility] [place] [address] UA Transitional Epithelial 0-2 Normal [facility] ([place]) Comment on above: Performed By: #### U A, UAMIC ####[facility] [place] [address] UA WBC 3-5 Normal 0-5 [facility] ([place]) Comment on above: Performed By: #### U A, UAMIC ####[place] [address] Progress Noteon 02-11-2023 Bobbin Trucker Authentication Interface Message Text Visit Subjective: Lester [...] trimester 01/17/2023 PLAN OF CARE- Co-Manage of [facility] MD/OB APPOINTMENTS Genetic screening: How often should patient be evaluated? Monthly to 28 weeks, q 2 weeks from 28 to 36 weeks then weekly until delivery. Work restrictions: NA EVALUATION surveillance: Biweekly BPPs Ultrasound: Growth every 4 weeks DELIVERY PLAN Hospital: [facility] C/S at 37.1 weeks Cholestasis of C/S scheduled fro 02/21/2022 @ 1100 GBS culture: per OB Contraception: tubal ligation : Pump and bottle Ped: [facility] Name of baby: Santy Vora [...] crosses the placenta into the fetus without snf safety data); however, it is considered and acceptable on a selective basis. = Conclusions: She articulates understanding of the foregoing and care plan. Questions were both encouraged and answered and our SENIOR SOLUTIONS ENGINEER will review her glycemic control weekly and [...] aspects- jd (more content not included)... Normal [facility] 02-10-2023 [facility] [place] [facility] [place] LABORATORYOrdered By: Chang varela on 02-10-2023 Blood Glucose Testing Reason Routine (02/10/23 8:20 AM) [facility] Work Phone: Glucose [Mass/Vol] 68 mg/dL Low 70 - 110 mg/dL [facility] Work Phone: LABORATORYOrdered By: Abimbola Puga on 02-10-2023 Glucose [Mass/Vol] 71 mg/dL Normal 70 - 110 mg/dL [facility] Work Phone: .Auto Diffon 02-09-2023 Basophil, Absolute 0.0 10 3/mcL Normal 0.0-0.3 [facility] ([place]) Comment on above: Performed By: #### L IP, FIB, ADIFF, PRO, ANEU, CBC, GFR, CMP ####[address] [address] Basophils/100 WBC (Bld) 0.6 % Normal 0.0-2.5 [facility] ([place]) Comment on above: Performed By: #### L IP, FIB, ADIFF, PRO, ANEU, CBC, GFR, CMP ####[address] [address] Eosinophil, Absolute 0.0 10 3/mcL Normal 0.0-0.7 [facility] ([place]) Comment on above: Performed By: #### L IP, FIB, ADIFF, PRO, ANEU, CBC, GFR, CMP ####[address] [address] Eosinophils/100 WBC (Bld) 0.1 % Normal 0.0-6.0 [facility] ([place]) Comment on above: Performed By: #### L IP, FIB, ADIFF, PRO, ANEU, CBC, GFR, CMP ####[address] [address] Lymphocyte, Absolute 0.8 10 3/mcL Low 0.9-4.3 [facility] ([place]) Comment on above: Performed By: #### L IP, FIB, ADIFF, PRO, ANEU, CBC, GFR, CMP ####[address] [address] Lymphocytes/100 WBC (Bld) 11.8 % Low 20.0-40.0 [facility] ([place]) Comment on above: Performed By: #### L IP, FIB, ADIFF, PRO, ANEU, CBC, GFR, CMP ####[address] [address] Monocyte, Absolute 0.7 10 3/mcL Normal 0.1-1.4 [facility] ([place]) Comment on above: Performed By: #### L IP, FIB, ADIFF, PRO, ANEU, CBC, GFR, CMP ####[address] [address] Monocytes/100 WBC (Bld) 10.9 % Normal 2.0-13.0 [facility] ([place]) Comment on above: Performed By: #### L IP, FIB, ADIFF, PRO, ANEU, CBC, GFR, CMP ####[address] [address] Neutrophils/100 WBC (Bld) 76.6 % High 50.0-75.0 [facility] ([place]) Comment on above: Performed By: #### L IP, FIB, ADIFF, PRO, ANEU, CBC, GFR, CMP ####[address] [address] .GFRon 02-09-2023 GFR Non- >60 Normal [facility] ([place]) Comment on above: Result Comment: GFR Population [...] FIB, ADIFF, PRO, ANEU, CBC, GFR, CMP ####[address] [address] GFR >60 Normal [facility] ([place]) Comment on above: Result Comment: GFR Population [...] FIB, ADIFF, PRO, ANEU, CBC, GFR, CMP ####[place] [address] .NEUABSon 02-09-2023 Neutrophil, Absolute 5.0 10 3/mcL Normal 2.3-8.1 [facility] ([place]) Comment on above: Performed By: #### L IP, FIB, ADIFF, PRO, ANEU, CBC, GFR, CMP ####[place] [address] APTTon 02-09-2023 aPTT Coag (Bld) [Time] 25.0 s Normal 25.0-35.0 [facility] ([place]) Comment on above: Result Comment: For Heparin anticoagulation therapy, the recommendedtherapeutic range is: 54-77 seconds (APTT Correlationwith Anti-Xa therapeutic range of 0.3-0.7 units/ml).PLEASE REFERENCE THE PHARMACY PROTOCOL FOR DOSING. Performed By: #### L IP, FIB, ADIFF, PRO, ANEU, CBC, GFR, CMP ####[place] [address] Heparin dose (APTT) Unknown Normal [facility] ([place]) Comment on above: Performed By: #### L IP, FIB, ADIFF, PRO, ANEU, CBC, GFR, CMP ####[place] [address] CBCon 02-09-2023 Erythrocyte distribution width (RBC) [Ratio] 15.3 % Normal 11.5-15.5 [facility] ([place]) Comment on above: Performed By: #### L IP, FIB, ADIFF, PRO, ANEU, CBC, GFR, CMP ####[place] [address] Hematocrit (Bld) [Volume fraction] 30.3 % Low 34.0-46.0 [facility] ([place]) Comment on above: Performed By: #### L IP, FIB, ADIFF, PRO, ANEU, CBC, GFR, CMP ####[place] [address] Hgb 10.1 G/dL Low 12.0-16.0 [facility] ([place]) Comment on above: Performed By: #### L IP, FIB, ADIFF, PRO, ANEU, CBC, GFR, CMP ####[place] [address] MCH (RBC) [Entitic mass] 25.0 pg Low 27.0-33.0 [facility] ([place]) Comment on above: Performed By: #### L IP, FIB, ADIFF, PRO, ANEU, CBC, GFR, CMP ####[place] [address] MCHC 33.2 G/dL Normal 32.0-36.0 [facility] ([place]) Comment on above: Performed By: #### L IP, FIB, ADIFF, PRO, ANEU, CBC, GFR, CMP ####[place] [address] MCV (RBC) [Entitic vol] 75.3 fL Low 80.0-99.0 [facility] ([place]) Comment on above: Performed By: #### L IP, FIB, ADIFF, PRO, ANEU, CBC, GFR, CMP ####[place] [address] Platelet 100 10 3/mcL Low 150-450 [facility] ([place]) Comment on above: Performed By: #### L IP, FIB, ADIFF, PRO, ANEU, CBC, GFR, CMP ####[place] [address] Platelet mean volume (Bld) [Entitic vol] 10.5 fL Normal 6.6-10.5 [facility] ([place]) Comment on above: Performed By: #### L IP, FIB, ADIFF, PRO, ANEU, CBC, GFR, CMP ####[address] [address] RBC 4.03 10 6/mcL Low 4.10-5.30 [facility] ([place]) Comment on above: Performed By: #### L IP, FIB, ADIFF, PRO, ANEU, CBC, GFR, CMP ####[place] [id number] WBC 6.5 10 3/mcL Normal 4.5-10.8 [facility] ([place]) Comment on above: Performed By: #### L IP, FIB, ADIFF, PRO, ANEU, CBC, GFR, CMP ####[place] [address] CMPon 02-09-2023 Albumin Level 2.2 G/dL Low 3.2-4.8 [facility] ([place]) Comment on above: Performed By: #### L IP, FIB, ADIFF, PRO, ANEU, CBC, GFR, CMP ####[place] [address] Albumin/Globulin [Mass ratio] 0.6 {ratio} Low 0.9-1.6 [facility] ([place]) Comment on above: Performed By: #### L IP, FIB, ADIFF, PRO, ANEU, CBC, GFR, CMP ####[place] [address] ALP [Catalytic activity/Vol] 260 U/L High 38-126 [facility] ([place]) Comment on above: Performed By: #### L IP, FIB, ADIFF, PRO, ANEU, CBC, GFR, CMP ####[address] [address] ALT [Catalytic activity/Vol] 21 U/L Normal 10-49 [facility] ([place]) Comment on above: Performed By: #### L IP, FIB, ADIFF, PRO, ANEU, CBC, GFR, CMP ####[place] [address] AST [Catalytic activity/Vol] 21 U/L Normal 8-34 [facility] ([place]) Comment on above: Performed By: #### L IP, FIB, ADIFF, PRO, ANEU, CBC, GFR, CMP ####[place] [address] Bili Total 0.50 mg/dL Normal 0.20-1.20 [facility] ([place]) Comment on above: Result Comment: Use of this assay is not recommended for patients undergoing treatment with eltrombopag due to the potential for falsely elevated results. Performed By: #### L IP, FIB, ADIFF, PRO, ANEU, CBC, GFR, CMP ####[place] [address] BUN/Creatinine Ratio 11.1 ratio Normal 10.0-22.0 [facility] ([place]) Comment on above: Performed By: #### L IP, FIB, ADIFF, PRO, ANEU, CBC, GFR, CMP ####[place] [address] Calcium [Mass/Vol] 8.5 mg/dL Low 8.7-10.4 [facility] ([place]) Comment on above: Performed By: #### L IP, FIB, ADIFF, PRO, ANEU, CBC, GFR, CMP ####[place] [address] Chloride [Moles/Vol] 109 mmol/L Normal 98-110 [facility] ([place]) Comment on above: Performed By: #### L IP, FIB, ADIFF, PRO, ANEU, CBC, GFR, CMP ####[place] [address] CO2 [Moles/Vol] 22 mmol/L Normal 22-32 [facility] ([place]) Comment on above: Performed By: #### L IP, FIB, ADIFF, PRO, ANEU, CBC, GFR, CMP ####[place] [address] Creatinine [Mass/Vol] 0.54 mg/dL Normal 0.50-1.20 [facility] ([place]) Comment on above: Performed By: #### L IP, FIB, ADIFF, PRO, ANEU, CBC, GFR, CMP ####[place] [address] Electrolyte Balance 9.0 mEq/L Normal 4.0-15.0 [facility] ([place]) Comment on above: Performed By: #### L IP, FIB, ADIFF, PRO, ANEU, CBC, GFR, CMP ####[place] [address] [place] [address] Globulin 3.9 G/dL High 1.5-3.8 [facility] ([place]) Comment on above: Performed By: #### L IP, FIB, ADIFF, PRO, ANEU, CBC, GFR, CMP ####[address] [address] Glucose [Mass/Vol] 78 mg/dL Normal 70-110 [facility] ([place]) Comment on above: Performed By: #### L IP, FIB, ADIFF, PRO, ANEU, CBC, GFR, CMP ####[address] [address] Potassium [Moles/Vol] 3.7 mmol/L Normal 3.5-5.0 [facility] ([place]) Comment on above: Performed By: #### L IP, FIB, ADIFF, PRO, ANEU, CBC, GFR, CMP ####[address] [address] Sodium [Moles/Vol] 140 mmol/L Normal 136-145 [facility] ([place]) Comment on above: Performed By: #### L IP, FIB, ADIFF, PRO, ANEU, CBC, GFR, CMP ####[address] [address] Total Protein 6.1 G/dL Normal 5.7-8.2 [facility] ([place]) Comment on above: Result Comment: No te - New Reference Range in effect 19 Performed By: #### L IP, FIB, ADIFF, PRO, ANEU, CBC, GFR, CMP ####[address] [address] Urea nitrogen [Mass/Vol] 6.0 mg/dL Low 8.0-22.0 [facility] ([place]) Comment on above: Performed By: #### L IP, FIB, ADIFF, PRO, ANEU, CBC, GFR, CMP ####[address] [address] CVFLURVon 02-09-2023 FLU A PCR Negative Normal Negative [facility] ([place]) Comment on above: Result Comment: [place] [id number] Performed By: #### C VFLURV ####[address] [address] FLU B PCR Negative Normal Negative [facility] ([place]) Comment on above: Result Comment: [place] [id number] Performed By: #### C VFLURV ####[address] [address] RSV PCR Negative Normal Negative [facility] ([place]) Comment on above: Result Comment: [place] [id number] Performed By: #### C VFLURV ####[address] [address] SARS-CoV-2 (COVID-19) RNA JULIANNE+probe Ql (Unsp spec) Positive Abnormal Negative [facility] ([place]) Comment on above: Result Comment: This organism causes a reportable disease.Infection Control has been notified.Results have been reported to the [facility].Notes [id number] test has been authorized by FDA under [...] positive results. Performed By: #### C VFLURV ####[address] [address] Genaro 02-09-2023 Ferritin [Mass/Vol] 4.9 ng/mL Low 8.0-252.0 [facility] ([place]) Comment on above: Performed By: #### F ERR ####[place] [id number] FIBon 02-09-2023 Fibrinogen 434 mg/dL Normal 250-560 [facility] ([place]) Comment on above: Performed By: #### L IP, FIB, ADIFF, PRO, ANEU, CBC, GFR, CMP ####[place] [address] LABORATORYOrdered By: Kika evangelista on 02-09-2023 Blood Glucose Testing Reason Routine (02/09/23 9:42 PM) [facility] Work Phone: Glucose [Mass/Vol] 83 mg/dL Normal 70 - 110 mg/dL [facility] Work Phone: LABORATORYOrdered By: Medardo Mello on 02-09-2023 Blood Glucose Testing Reason Routine (02/09/23 7:28 PM) [facility] Work Phone: Time of Stated Blood Glucose [id number] [facility] Work Phone: Time of Stated Blood Glucose [phone] [facility] Work Phone: LABORATORYOrdered By: Vlad Silver on 02-09-2023 aPTT Coag (Bld) [Time] 25.0 s Normal 25.0 - 35.0 seconds AH [facility] SS Comment on above: Interpretive Data: F or Heparin anticoagulation therapy, the recommended therapeutic range is: 54-77 seconds (APTT Correlation with Anti-Xa therapeutic range of 0.3-0.7 units/ml). PLEASE REFERENCE THE PHARMACY PROTOCOL FOR DOSING. Fibrinogen 434 mg/dL Normal 250 - 560 mg/dL [facility] SS Heparin dose (APTT) Unknown (02/09/23 1:28 PM) Normal AH Coagulation S PT Coag (PPP) [Time] 11.6 s Normal 9.0 - 1 4.2 seconds [facility] SS Comment on above: Interpretive Data: E ffective 08/29/07, Protime results may be affected by some antibiotics (i.e. Ciprofloxacin, Azithromycin, Bactrim) which may potentiate the action of oral anticoagulants, with further increases in Protime/INR. PT International Ratio 1.0 ratio Invalid Interpretation Code [facility] SS Comment on above: Interpretive Data: Em flowers [employer] (CHEST, 1992, 102:312S-25S) recommended therapeutic range for oral anticoagulant therapy is: LOW RISK: Prophylaxis of venous thrombosis INR: 2.0-3.0 Treatment of pulmonary embolism 2.0-3.0 Prevention of systemic embolism 2.0-3.0 HIGH RISK: Mechanical prosthetic valves 2.5-3.5 LABORATORYOrdered By: Marly Sanchez on 02-09-2023 ABO and Rh group Nom (Bld) B positive (02/09/23 12:52 PM) [facility] Work Phone: Group B Strep Date Performed [id number] [facility] Work Phone: Group B Strep, External Negative (02/09/23 12:52 PM) [facility] Work Phone: Hepatitis B Date Performed [id number] [facility] Work Phone: Hepatitis B, External Negative (02/09/23 12:52 PM) [facility] Work Phone: HIV Antibodies, External Negative (02/09/23 12:52 PM) [facility] Work Phone: RPR, External Nonreactive (02/09/23 12:52 PM) [facility] Work Phone: Rubella, External Immune (02/09/23 12:52 PM) [facility] Work Phone: LABORATORYOrdered By: SYSTEM SYSTEM on [...] 30.3 % Low 34.0 - 46.0 % Workflow SS Hemoglobin (Bld) [Mass/Vol] 10.1 G/dL Low 12.0 - 16.0 G/dL Workflow SS Lipase [Catalytic activity/Vol] 26 U/L Normal 12 - 53 U/L [facility] Comment on above: Interpretive Data: * *Note [...] Negative 9 (02/09/23 10:48 AM) Normal Negative [facility] Comment on above: Result Comment: Note s FLUBV RNA JULIANNE+probe Ql (Resp) Negative 10 (02/09/23 10:48 AM) Normal Negative AH [facility] SS Comment on above: Result Comment: Note s RSV PCR Negative 11 (02/09/23 10:48 AM) Normal Negative AH [facility] SS Comment on above: Result Comment: Note s SARS-CoV-2 (COVID-19) RNA JULIANNE+probe Ql (Resp) Positive 7, 8 *ABN* (02/09/23 10:48 AM) Invalid Interpretation Code Negative AH [facility] SS Comment on above: Result Comment: This organism causes a reportable disease. Infection Control has been notified. Results have been reported to the [place] [facility]. Notes [id number] Interpretive Data: T his test has been [...] 02-09-2023 Lipase Level 26 U/L Normal 12-53 [facility] ([place]) Comment on above: Result Comment: No te - New Reference Range in effect 19 Performed By: #### L IP, FIB, ADIFF, PRO, ANEU, CBC, GFR, CMP ####[place] [address] No Panel Informationon 02-09 Culture Urine >100,000 cfu/ml Multiple bacterial morphotypes present. Probable Contamination. Suggest recollection if clinically indicated. [facility] Work Phone: PROon 02-09-2023 INR Coag (PPP) [Relative time] 1.0 {INR} Normal [facility] ([place]) Comment on above: Order Comment: blue top underfilled QNS, called kathi 02/09/2023 12:39:05 EST/gsm Result Comment: [employer] (CHEST, 1992, 102:312S-25S)recommended therapeutic range for oral anticoagulant therapy is:LOW RISK: Prophylaxis of venous thrombosis INR: 2.0-3.0 Treatment of pulmonary embolism 2.0-3.0 Prevention of systemic embolism 2.0-3.0HIGH RISK: Mechanical prosthetic valves 2.5-3.5 Performed By: #### L IP, FIB, ADIFF, PRO, ANEU, CBC, GFR, CMP ####[place] [address] PT Coag (PPP) [Time] 11.6 s Normal 9.0-14.2 [facility] ([place]) Comment on above: Order Comment: blue top underfilled QNS, called kathi 02/09/2023 12:39:05 EST/gsm Result Comment: Effe ctive 08/29/07, Protime results may be affected by some antibiotics (i.e. Ciprofloxacin, Azithromycin, Bactrim) which may potentiate the action of oral anticoagulants, with further increases in Protime/INR. Performed By: #### L IP, FIB, ADIFF, PRO, ANEU, CBC, GFR, CMP ####[place] [address] UAon 02-09-2023 Color (U) Yellow Normal [facility] ([place]) Comment on above: Performed By: #### U AMIC, UA ####[place] [address] Glucose (U) [Mass/Vol] Negative Normal Negative [facility] ([place]) Comment on above: Performed By: #### U AMIC, UA ####[place] [address] Ketones Ql (U) Negative Normal Neg-Trace [facility] ([place]) Comment on above: Performed By: #### U AMIC, UA ####[place] [address] UA Appear Clear Normal Clear [facility] ([place]) Comment on above: Performed By: #### U AMIC, UA ####[place] [address] UA Blood Large Abnormal Neg-Trace [facility] ([place]) Comment on above: Performed By: #### U AMIC, UA ####[place] [address] UA Leuk Est Trace Normal Negative [facility] ([place]) Comment on above: Performed By: #### U AMIC, UA ####[place] [address] UA Nitrite Negative Normal Negative [facility] ([place]) Comment on above: Performed By: #### U AMIC, UA ####[place] [address] UA pH 7.5 Normal 5.0 - 8.0 [facility] ([place]) Comment on above: Performed By: #### U AMIC, UA ####[place] [address] UA Protein Negative Normal Negative [facility] ([place]) Comment on above: Performed By: #### U AMIC, UA ####[place] [address] UA Spec Grav <=1.005 Abnormal 1.006-1.029 [facility] ([place]) Comment on above: Performed By: #### U AMIC, UA ####[place] [address] UA Specimen Type Catheter Normal [facility] ([place]) Comment on above: Performed By: #### U AMIC, UA ####[place] [address] UA Urobilinogen 1.0 E.U./dL Normal 0.2-1.0 [facility] ([place]) Comment on above: Performed By: #### U AMIC, UA ####[place] [address] Urobilinogen (U) [Mass/Vol] Negative Normal Neg-Trace [facility] ([place]) Comment on above: Performed By: #### U AMIC, UA ####[place] [address] Color (U) Yellow Normal [facility] ([place]) Comment on above: Performed By: #### U A, UAMIC ####[address] [address] Glucose (U) [Mass/Vol] Negative Normal Negative [facility] ([place]) Comment on above: Performed By: #### U A, UAMIC ####[place] [address] Ketones Ql (U) Negative Normal Neg-Trace [facility] ([place]) Comment on above: Performed By: #### U A, UAMIC ####[place] [address] UA Appear Cloudy Abnormal Clear [facility] ([place]) Comment on above: Performed By: #### U A, UAMIC ####[place] [address] UA Blood Negative Normal Neg-Trace [facility] ([place]) Comment on above: Performed By: #### U A, UAMIC ####[place] [address] UA Leuk Est Moderate Abnormal Negative [facility] ([place]) Comment on above: Performed By: #### U A, UAMIC ####[place] [address] UA Nitrite Negative Normal Negative [facility] ([place]) Comment on above: Performed By: #### U A, UAMIC ####[place] [address] UA pH 7.0 Normal 5.0 - 8.0 [facility] ([place]) Comment on above: Performed By: #### U A, UAMIC ####[place] [address] UA Protein Trace Normal Negative [facility] ([place]) Comment on above: Performed By: #### U A, UAMIC ####[place] [address] UA Spec Grav 1.020 Normal 1.006-1.029 [facility] ([place]) Comment on above: Performed By: #### U A, UAMIC ####[place] [address] UA Specimen Type Clean Catch Normal [facility] ([place]) Comment on above: Performed By: #### U A, UAMIC ####[facility] [place] [address] UA Urobilinogen 1.0 E.U./dL Normal 0.2-1.0 [facility] ([place]) Comment on above: Performed By: #### U A, UAMIC ####[place] [address] Urobilinogen (U) [Mass/Vol] Negative Normal Neg-Trace [facility] ([place]) Comment on above: Performed By: #### U A, UAMIC ####[place] [address] UAMICon 02-09-2023 UA Bacteria 1+ /hpf Abnormal Negative [facility] ([place]) Comment on above: Performed By: #### U AMIC, UA ####[place] [address] UA Mucous 1+ /hpf Normal [facility] ([place]) Comment on above: Performed By: #### U AMIC, UA ####[place] [address] UA RBC 3-5 Abnormal 0-2 [facility] ([place]) Comment on above: Performed By: #### U AMIC, UA ####[place] [address] UA Squam Epithelial 10-20 Normal 0-20 [facility] ([place]) Comment on above: Performed By: #### U AMIC, UA ####[place] [address] UA WBC 3-5 Normal 0-5 [facility] ([place]) Comment on above: Performed By: #### U AMIC, UA ####[place] [address] UA Bacteria 4+ /hpf Abnormal Negative [facility] ([place]) Comment on above: Performed By: #### U A, UAMIC ####[place] [address] UA Mucous 2+ /hpf Normal [facility] ([place]) Comment on above: Performed By: #### U A, UAMIC ####Sophia [address] [place] [address] UA RBC Negative Normal 0-2 [facility] ([place]) Comment on above: Performed By: #### U A, UAMIC ####[facility] [place] [address] UA Squam Epithelial 50-100 Abnormal 0-20 [facility] ([place]) Comment on above: Performed By: #### U A, UAMIC ####[facility] [place] [address] UA WBC 0-2 Normal 0-5 [facility] ([place]) Comment on above: Performed By: #### U A, UAMIC ####[facility] [place] [address] Progress Noteon 02-04-2023 Bobbin Trucker Authentication Interface Message Text [facility] MATERNAL [facility] - at [place] DR. ARMSTRONG OFFICE VISIT NOTE DOS: 02/04/2023 02/04/2023 Chief Complaint She presents for review of progress in thus far and for comprehensive review of her maternal -obstetric- risks in this . The reasons for the visit are as highlighted in the concluding summary communication to payment processor which is my problem-based office review. History [...] trimester 01/17/2023 PLAN OF CARE- Co-Manage of [facility] MD/OB APPOINTMENTS Genetic screening: How often should patient be evaluated? Monthly to 28 weeks, q 2 weeks from 28 to 36 weeks then weekly until delivery. Work restrictions: NA EVALUATION surveillance: Biweekly BPPs Ultrasound: Growth every 4 weeks DELIVERY PLAN Hospital: [facility] C/S at 37.1 weeks Cholestasis of C/S scheduled fro 02/21/2022 @ 1100 GBS culture: per OB Contraception: tubal ligation : Pump and bottle Ped: [facility] Name of baby: Boy- Alicia Vaccinations: rec [...] crosses the placenta into the fetus without bed bug exterminator safety data); however, it is considered and acceptable on a selective basis. = Conclusions: She articulates understanding of the foregoing and care plan. Questions were both encouraged and answered and our SENIOR SOLUTIONS ENGINEER will review her glycemic control weekly and optimize it 01/28/2023 BS log reviewed from 01/22-01/28. 2 elevated fasting 94 and 91. 2 hr PP 4 elevated value (more content not included)... Normal [facility] Basophil percentageOrdered B y: Tian Gomez on 02-02-2023 WBC (Bld) [#/Vol] 7.6 10*3/uL 4.4-11.0 [facility] Blood erythrocytes count (nu mber/volume)Ordered By: Tian Gomez on 02-02-2023 RBC (Bld) [#/Vol] 4.14 10*6/uL 4.2-5.4 [facility] Blood hemoglobin measurement (mass/volume)Ordered By: Tian Gomez on 02-02-2023 Hemoglobin (Bld) [Mass/Vol] 10.1 g/dL 12.0-15.0 [facility] Blood platelet mean volumeOr dered By: Tian Gomez on 02-02-2023 Platelet mean volume (Bld) [Entitic vol] 13.5 fL 6.2-12.0 [facility] Determination of erythrocyte mean corpuscular volume (MCV)Ordered By: Tian Gomez on 02-02-2023 MCV (RBC) [Entitic vol] 76.8 fL 81-99 [facility] Hematocrit Auto (Bld) [Volum e fraction]Ordered By: Tian Gomez on 02-02-2023 Hematocrit (Bld) [Volume fraction] 31.8 % 37-47 [facility] Laboratory - Chemistry and C hemistry - challengeOrdered By: Tian Gomez on 02-02-2023 ALT [Catalytic activity/Vol] 29 U/L 13-56 [facility] - Hematology and Cell countsOrdered By: Tian Gomez on 02-02-2023 Erythrocyte distribution width (RBC) [Entitic vol] 39.2 fL 35.1-43.9 [facility] Erythrocyte distribution width (RBC) [Ratio] 14.3 % 11.6-14.6 [facility] MCH (RBC) [Entitic mass] 24.4 pg 27.0-32.0 [facility] MCHC Auto (RBC) [Mass/Vol]Or dered By: Tian Gomez on 02-02-2023 MCHC (RBC) [Mass/Vol] 31.8 g/dL 32-36 [facility] No Panel InformationOrdered By: Tian Gomez on 02-02-2023 Estimated Creatinine Clearance Calc 135.18 ml/min [facility] Estimated GFR (MDRD) Amer 180 mL/min >60 [facility] Comment on above: GFR Calc Estimated GFR (MDRD) Non-Af Amer 149 mL/min >60 [facility] Comment on above: Non- GFR Calc Platelets bldOrdered By: Carson Gomez on 02-02-2023 Platelets (Bld) [#/Vol] 145 10*3/uL 150-450 [facility] Serum or plasma creatinine m easurement (mass/volume)Ordered By: Tian Gomez on 02-02-2023 Creatinine [Mass/Vol] 0.54 mg/dL 0.55-1.02 [facility] Comment on above: The validity of the calculated GFR & GFRAA in patients over 70 years has not been determined. Clinical correlation is essential. Serum or plasma uric acid me asurement (mass/volume)Ordered By: Tian Gomez on 02-02-2023 Urate [Mass/Vol] 4.3 mg/dL 2.6-6.0 [facility] Comment on above: The drugs N-Acetylcy steine and Metamizole may falsely depress this assay. Thin prep Papanicolaou smear with manual screeningOrdered By: Tian Gomez on 02-02-2023 Thin prep Papanicolaou smear with manual screening 25 U/L 15-37 [facility] Urine creatinine measurement (mass/volume)Ordered By: Tian Gomez on 02-02-2023 Creatinine (U) [Mass/Vol] 67.90 mg/dL NO RANGE EST. [facility] Urine protein measurement (m ass/volume)Ordered By: Tian Gomez on 02-02-2023 Protein (U) [Mass/Vol] 15.3 mg/dL 0.0-11.8 [facility] Urine protein/creatinine mas s ratioOrdered By: Tian Gomez on 02-02-2023 Protein/Creatinine (U) [Mass ratio] 225 mg/g CRE 0-200 [facility] CTPCRon 01-28-2023 C. trachomatis Interp Normal See CT Interp N [facility] ([place]) Comment on above: Result Comment: C. t rachomatis DNA not detected. Specimen is presumptive negative forC. trachomatis.A negative result does not preclude C. trachomatis infection becauseresults depend on adequate specimen collection, absence of inhibitors,and sufficient DNA to be detected.See CT Interp N Performed By: #### C TPCR, NGPCR1, GBSPCR ####[address] [address] C.trachomatis PCR Negative Normal Negative [facility] ([place]) Comment on above: Result Comment: Scar guzman (PCR) assay performed on the [employer] 4800 system. Performed By: #### C TPCR, NGPCR1, GBSPCR ####[address] [address] Chlam Source Cervix Normal [facility] ([place]) Comment on above: Performed By: #### C TPCR, NGPCR1, GBSPCR ####[address] [address] LIEEA9rs 01-28-2023 GC PCR Source Cervix Normal [facility] ([place]) Comment on above: Performed By: #### C TPCR, NGPCR1, GBSPCR ####[address] [address] N. gonorrhoeae (PCR) Negative Normal Negative [facility] ([place]) Comment on above: Result Comment: Scar guzman (PCR) assay performed on the [employer] 4800 System. Performed By: #### C TPCR, NGPCR1, GBSPCR ####[place] [address] [place] [address] N. gonorrhoeae Interp Normal See NG Interp N [facility] ([place]) Comment on above: Result Comment: N. g onorrhoeae DNA not detected. Specimen is presumptive negative forN. gonorrhoeae. A negative result does not preclude Neisseria gonorrhoeaeinfection because results depend on adequate specimen collection, absenceof inhibitors, and sufficient DNA to be detected.See NG Interp N Performed By: #### C TPCR, NGPCR1, GBSPCR ####[place] [address] [place] [address] Progress Noteon 01-28-2023 Bobbin Trucker Authentication Interface Message Text Comanage GestationalDiabetes Mellitus [...] Tablet (20 mg) by mouth daily Vit w/Hb-Iybdpdgsn-GH (PNV PO) Take 1 Tablet by mouth [...] trimester 01/17/2023 PLAN OF CARE- Co-Manage of [facility] MD/OB APPOINTMENTS Genetic screening: How often should patient be evaluated? Monthly to 28 weeks, q 2 weeks from 28 to 36 weeks then weekly until delivery. Work restrictions: NA EVALUATION surveillance: Biweekly BPPs Ultrasound: Growth every 4 weeks DELIVERY PLAN Hospital: [facility] C/S at 37.1 weeks Cholestasis of C/S scheduled fro 02/21/2022 @ 1100 GBS culture: per OB Contraception: tubal ligation : Pump and bottle Ped: [facility] Name of baby: Santy Vora Vaccinations: [...] and shoulder (more content not included)... Normal [facility] US ABDOMEN LIMITEDon 023 US ABDOMEN LIMITED Normal [facility] ([place]) CURon 01-27-2023 CUR Normal [facility]) GBSPCRon 01-27-2023 Group B Strep (PCR) Negative Normal Negative [facility] ([place]) Comment on above: Result [place]: [place] [id number] Performed By: #### C TPCR, NGPCR1, GBSPCR ####[address] [address] Group B Strep PCR Int Normal [facility] ([place]) Comment on above: Result Comment: Grou p [...] Performed By: #### C TPCR, NGPCR1, GBSPCR ####[address] [address] .Auto Diffon 01-26-2023 Basophil, Absolute 0.0 10 3/mcL Normal 0.0-0.3 [facility] ([place]) Comment on above: Performed By: #### C MP, GFR, CBC, LIP, ANEU, ADIFF ####[address] [address] Basophils/100 WBC (Bld) 0.4 % Normal 0.0-2.5 [facility] ([place]) Comment on above: Performed By: #### C MP, GFR, CBC, LIP, ANEU, ADIFF ####[address] [address] Eosinophil, Absolute 0.0 10 3/mcL Normal 0.0-0.7 [facility] ([place]) Comment on above: Performed By: #### C MP, GFR, CBC, LIP, ANEU, ADIFF ####[address] [address] Eosinophils/100 WBC (Bld) 0.2 % Normal 0.0-6.0 [facility] ([place]) Comment on above: Performed By: #### C MP, GFR, CBC, LIP, ANEU, ADIFF ####[address] [address] Lymphocyte, Absolute 2.0 10 3/mcL Normal 0.9-4.3 [facility] ([place]) Comment on above: Performed By: #### C MP, GFR, CBC, LIP, ANEU, ADIFF ####[address] [address] Lymphocytes/100 WBC (Bld) 22.0 % Normal 20.0-40.0 [facility] ([place]) Comment on above: Performed By: #### C MP, GFR, CBC, LIP, ANEU, ADIFF ####[address] [address] Monocyte, Absolute 0.6 10 3/mcL Normal 0.1-1.4 [facility] ([place]) Comment on above: Performed By: #### C MP, GFR, CBC, LIP, ANEU, ADIFF ####[address] [address] Monocytes/100 WBC (Bld) 6.3 % Normal 2.0-13.0 [facility] ([place]) Comment on above: Performed By: #### C MP, GFR, CBC, LIP, ANEU, ADIFF ####[place] [address] [place] [address] Neutrophils/100 WBC (Bld) 71.1 % Normal 50.0-75.0 [facility] ([place]) Comment on above: Performed By: #### C MP, GFR, CBC, LIP, ANEU, ADIFF ####[address] [address] .GFRon 01-26-2023 GFR Non- >60 Normal [facility] ([place]) Comment on above: Result Comment: GFR Population [...] C MP, GFR, CBC, LIP, ANEU, ADIFF ####[address] [address] GFR >60 Normal [facility] ([place]) Comment on above: Result Comment: GFR Population [...] C MP, GFR, CBC, LIP, ANEU, ADIFF ####[place] [address] .NEUABSon 01-26-2023 Neutrophil, Absolute 6.4 10 3/mcL Normal 2.3-8.1 [facility] ([place]) Comment on above: Performed By: #### C MP, GFR, CBC, LIP, ANEU, ADIFF ####[place] [address] CBCon 01-26-2023 Erythrocyte distribution width (RBC) [Ratio] 15.0 % Normal 11.5-15.5 [facility] ([place]) Comment on above: Performed By: #### C MP, GFR, CBC, LIP, ANEU, ADIFF ####[place] [address] Hematocrit (Bld) [Volume fraction] 33.0 % Low 34.0-46.0 [facility] ([place]) Comment on above: Performed By: #### C MP, GFR, CBC, LIP, ANEU, ADIFF ####[place] [address] Hgb 11.1 G/dL Low 12.0-16.0 [facility] ([place]) Comment on above: Performed By: #### C MP, GFR, CBC, LIP, ANEU, ADIFF ####[place] [address] MCH (RBC) [Entitic mass] 25.0 pg Low 27.0-33.0 [facility] ([place]) Comment on above: Performed By: #### C MP, GFR, CBC, LIP, ANEU, ADIFF ####[place] [address] MCHC 33.7 G/dL Normal 32.0-36.0 [facility] ([place]) Comment on above: Performed By: #### C MP, GFR, CBC, LIP, ANEU, ADIFF ####[place] [address] MCV (RBC) [Entitic vol] 74.1 fL Low 80.0-99.0 [facility] ([place]) Comment on above: Performed By: #### C MP, GFR, CBC, LIP, ANEU, ADIFF ####[place] [address] Platelet 132 10 3/mcL Low 150-450 [facility] ([place]) Comment on above: Performed By: #### C MP, GFR, CBC, LIP, ANEU, ADIFF ####[place] [address] Platelet mean volume (Bld) [Entitic vol] 10.3 fL Normal 6.6-10.5 [facility] ([place]) Comment on above: Performed By: #### C MP, GFR, CBC, LIP, ANEU, ADIFF ####[place] [address] RBC 4.45 10 6/mcL Normal 4.10-5.30 [facility] ([place]) Comment on above: Performed By: #### C MP, GFR, CBC, LIP, ANEU, ADIFF ####[place] [address] WBC 9.1 10 3/mcL Normal 4.5-10.8 [facility] ([place]) Comment on above: Performed By: #### C MP, GFR, CBC, LIP, ANEU, ADIFF ####[place] [address] CMPon 01-26-2023 Albumin Level 2.3 G/dL Low 3.2-4.8 [facility] ([place]) Comment on above: Performed By: #### C MP, GFR, CBC, LIP, ANEU, ADIFF ####[place] [address] Albumin/Globulin [Mass ratio] 0.6 {ratio} Low 0.9-1.6 [facility] ([place]) Comment on above: Performed By: #### C MP, GFR, CBC, LIP, ANEU, ADIFF ####[address] [address] ALP [Catalytic activity/Vol] 245 U/L High 38-126 [facility] ([place]) Comment on above: Performed By: #### C MP, GFR, CBC, LIP, ANEU, ADIFF ####[address] [address] ALT [Catalytic activity/Vol] 32 U/L Normal 10-49 [facility] ([place]) Comment on above: Performed By: #### C MP, GFR, CBC, LIP, ANEU, ADIFF ####[address] [address] AST [Catalytic activity/Vol] 22 U/L Normal 8-34 [facility] ([place]) Comment on above: Performed By: #### C MP, GFR, CBC, LIP, ANEU, ADIFF ####[place] [id number] Bili Total 0.40 mg/dL Normal 0.20-1.20 [facility] ([place]) Comment on above: Result Comment: Use of this assay is not recommended for patients undergoing treatment with eltrombopag due to the potential for falsely elevated results. Performed By: #### C MP, GFR, CBC, LIP, ANEU, ADIFF ####[place] [address] BUN/Creatinine Ratio 16.7 ratio Normal 10.0-22.0 [facility] ([place]) Comment on above: Performed By: #### C MP, GFR, CBC, LIP, ANEU, ADIFF ####[address] [address] Calcium [Mass/Vol] 8.8 mg/dL Normal 8.7-10.4 [facility] ([place]) Comment on above: Performed By: #### C MP, GFR, CBC, LIP, ANEU, ADIFF ####[place] [address] Chloride [Moles/Vol] 107 mmol/L Normal 98-110 [facility] ([place]) Comment on above: Performed By: #### C MP, GFR, CBC, LIP, ANEU, ADIFF ####[place] [address] CO2 [Moles/Vol] 26 mmol/L Normal 22-32 [facility] ([place]) Comment on above: Performed By: #### C MP, GFR, CBC, LIP, ANEU, ADIFF ####[place] [address] Creatinine [Mass/Vol] 0.48 mg/dL Low 0.50-1.20 [facility] ([place]) Comment on above: Performed By: #### C MP, GFR, CBC, LIP, ANEU, ADIFF ####[place] [address] Electrolyte Balance 4.0 mEq/L Normal 4.0-15.0 [facility] ([place]) Comment on above: Performed By: #### C MP, GFR, CBC, LIP, ANEU, ADIFF ####[place] [address] Globulin 4.1 G/dL High 1.5-3.8 [facility] ([place]) Comment on above: Performed By: #### C MP, GFR, CBC, LIP, ANEU, ADIFF ####[place] [address] Glucose [Mass/Vol] 121 mg/dL High 70-110 [facility] ([place]) Comment on above: Performed By: #### C MP, GFR, CBC, LIP, ANEU, ADIFF ####[place] [address] Potassium [Moles/Vol] 3.9 mmol/L Normal 3.5-5.0 [facility] ([place]) Comment on above: Performed By: #### C MP, GFR, CBC, LIP, ANEU, ADIFF ####[place] [address] Sodium [Moles/Vol] 137 mmol/L Normal 136-145 [facility] ([place]) Comment on above: Performed By: #### C MP, GFR, CBC, LIP, ANEU, ADIFF ####[place] [id number] Total Protein 6.4 G/dL Normal 5.7-8.2 [facility] ([place]) Comment on above: Result Comment: No te - New Reference Range in effect 19 Performed By: #### C MP, GFR, CBC, LIP, ANEU, ADIFF ####[place] [address] Urea nitrogen [Mass/Vol] 8.0 mg/dL Normal 8.0-22.0 [facility] ([place]) Comment on above: Performed By: #### C MP, GFR, CBC, LIP, ANEU, ADIFF ####[place] [address] CVFLURVon 01-26-2023 FLU A PCR Negative Normal Negative [facility] ([place]) Comment on above: Result [place]: [place] [id number] Performed By: #### C VFLURV ####[place] [address] FLU B PCR Negative Normal Negative [facility] ([place]) Comment on above: Result Comment: [place] [id number] Performed By: #### C VFLURV ####[place] [address] RSV PCR Negative Normal Negative [facility] ([place]) Comment on above: Result Comment: [place] [id number] Performed By: #### C VFLURV ####[place] [address] SARS-CoV-2 (COVID-19) RNA JULIANNE+probe Ql (Unsp spec) Negative Normal Negative [facility] ([place]) Comment on above: Result Comment: Note s [id number] test has been authorized by FDA under [...] inaccurate positive results. Performed By: #### C LURV ####[place] [address] LABORATORYOrdered By: Elizabeth Paula on 01-26-2023 Appearance [...] Comment on above: [place]: [place] [id number] FLUBV RNA JULIANNE+probe Ql (Resp) Negative 7 (01/26/23 11:31 AM) Normal Negative AH Auto Viro/Sero SS Comment on above: Result [place]: [place] [id number] RSV PCR Negative 8 (01/26/23 11:31 AM) Normal Negative AH Auto Viro/Sero SS Comment on above: Result Comment: [place] [id number] SARS-CoV-2 (COVID-19) RNA JULIANNE+probe Ql (Resp) Negative 4, 5 (01/26/23 11:31 AM) Normal Negative AH Auto Viro/Sero SS Comment on above: Result [place]: [place] [id number] Interpretive Data: T his test has been [...] 1.6 ratio ADM SS ALP [Catalytic activity/Vol] 245 U/L High 38 - 126 U/L ADM SS ALT No additional P-5'-P [Catalytic activity/Vol] 32 U/L Normal 10 - 49 U/L ADM SS AST [Catalytic activity/Vol] 22 U/L [...] 11.1 G/dL Low 12.0 - 16.0 G/dL Workflow SS Lipase [Catalytic activity/Vol] 30 U/L Normal 12 - 53 U/L ADM Comment on above: Interpretive Data: * *Note - New Reference Range in effect 19 Lymphocytes (Bld) [#/Vol] 2.0 103/mcL Normal 0.9 - 4.3 10^3/mcL Workflow SS Lymphocytes/100 WBC (Bld) 22.0 % [...] 9.1 103/mcL Normal 4.5 - 10.8 10^3/mcL AH Workflow SS LABORATORYOrdered By: Chang varela on 01-26-2023 Blood Glucose Testing Reason Routine (01/26/23 10:09 AM) [facility] Work Phone: Glucose [Mass/Vol] 123 mg/dL High 70 - 110 mg/dL [facility] Work Phone: LIPon 01-26-2023 Lipase Level 30 U/L Normal [facility] ([place]) Comment on above: Result Comment: No te - New Reference Range in effect 19 Performed By: #### C MP, GFR, CBC, LIP, ANEU, ADIFF ####[address] [address] UAon 01-26-2023 Color (U) Yellow Normal [facility] ([place]) Comment on above: Performed By: #### U A, UAMIC ####[address] [address] Glucose (U) [Mass/Vol] Negative Normal Negative [facility] ([place]) Comment on above: Performed By: #### U A, UAMIC ####[place] [address] Ketones Ql (U) Negative Normal Neg-Trace [facility] ([place]) Comment on above: Performed By: #### U A, UAMIC ####[place] [address] UA Appear Cloudy Abnormal Clear [facility] ([place]) Comment on above: Performed By: #### U A, UAMIC ####[address] [address] UA Blood Negative Normal Neg-Trace [facility] ([place]) Comment on above: Performed By: #### U A, UAMIC ####[address] [address] UA Leuk Est Small Abnormal Negative [facility] ([place]) Comment on above: Performed By: #### U A, UAMIC ####[address] [address] UA Nitrite Negative Normal Negative [facility] ([place]) Comment on above: Performed By: #### U A, UAMIC ####[address] [address] UA pH 7.5 Normal 5.0 - 8.0 [facility] ([place]) Comment on above: Performed By: #### U A, UAMIC ####[address] [address] UA Protein Negative Normal Negative [facility] ([place]) Comment on above: Performed By: #### U A, UAMIC ####[place] [address] UA Spec Grav 1.015 Normal 1.006-1.029 [facility] ([place]) Comment on above: Performed By: #### U A, UAMIC ####[place] [address] UA Specimen Type Clean Catch Normal [facility] ([place]) Comment on above: Performed By: #### U A, UAMIC ####[place] [address] UA Urobilinogen 1.0 E.U./dL Normal 0.2-1.0 [facility] ([place]) Comment on above: Performed By: #### U A, UAMIC ####[place] [address] Urobilinogen (U) [Mass/Vol] Negative Normal Neg-Trace [facility] ([place]) Comment on above: Performed By: #### U A, UAMIC ####[place] [address] UAMICon 01-26-2023 UA Bacteria 4+ /hpf Abnormal Negative [facility] ([place]) Comment on above: Performed By: #### U A, UAMIC ####[place] [address] UA RBC Negative Normal 0-2 [facility] ([place]) Comment on above: Performed By: #### U A, UAMIC ####[place] [address] UA Squam Epithelial 25-50 Abnormal 0-20 [facility] ([place]) Comment on above: Performed By: #### U A, UAMIC ####[place] [address] UA WBC 3-5 Normal 0-5 [facility] ([place]) Comment on above: Performed By: #### U A, UAMIC ####[place] [address] BILEon 01-22-2023 Chenodeoxycholate 1.5 umol/l Normal [facility] ([place]) Comment on above: Result Comment: Refe rence Range:All Ages: <5.8 Performed By: #### A WAYNE, CBC, LD, ADIFF, GFR, [id number], CMP ####[place] [id number] [place] [address] Cholate 2.2 umol/l High [facility] ([place]) Comment on above: Result Comment: Refe rence Range:All Ages: <2.2 Performed By: #### A WAYNE, CBC, LD, ADIFF, GFR, [id number], CMP ####[place] [address] Deoxycholate 0.40 umol/l Normal [facility] ([place]) Comment on above: Result Comment: Refe rence Range:All Ages: <3.3 Performed By: #### A WAYNE, CBC, LD, ADIFF, GFR, [id number], CMP ####[place] [address] Total Bile Acids 4.1 umol/l [facility] ([place]) Comment on above: Result Comment: This test was developed and its performance characteristicsdetermined by [facility]. It has not been cleared or approvedby the Food and Drug Administration.Reference Range:All Ages: <9.2Performed At: [facility] [id number] [place], [place] [id number] Tam MD Ph:[phone] Performed By: #### A WAYNE, CBC, LD, ADIFF, GFR, [id number], CMP ####[place] [address] Ursodeoxycholate <0.10 Normal [facility] ([place]) Comment on above: Result Comment: Refe rence Range:All Ages: <1.9 Performed By: #### A WAYNE, CBC, LD, ADIFF, GFR, [id number], CMP ####[place] [id number] [place] [address] Progress Noteon 01-21-2023 Bobbin Trucker Authentication Interface Message Text Comanage GestationalDiabetes Mellitus [...] mg) by mouth 2 times daily Vit w/Ce-Lporxspce-TD (PNV PO) Take 1 Tablet by mouth [...] Use as directed 40 Each 3 [DISCONTINUED] CLAY SOLOSTAR 300 UNIT/ML SOPN inject 0.2 milliliters [...] 148bpm Presentation: Breech BPP 09/21 Assessment/Plan: Lester Lee Infante is a 22 y.o. at 32w5d with: Active Non-Hospital Problems Diagnosis Date Noted Supervision of high risk in third trimester 01/17/2023 PLAN OF CARE- Co-Manage of [facility] MD/OB APPOINTMENTS Genetic screening: How often should patient be evaluated? Monthly to 28 weeks, q 2 weeks from 28 to 36 weeks then weekly until delivery. Work restrictions: NA EVALUATION surveillance: Biweekly BPPs Ultrasound: Growth every 4 weeks DELIVERY PLAN Hospital: [facility] C/S at 37.1 weeks Cholestasis of C/S scheduled fro 02/21/2022 @ 1100 GBS culture: per OB Contraception: tubal ligation : Pump and bottle Ped: [facility] Name of baby: Santy Vora [...] daily acti (more content not included)... Normal [facility] .Auto Diffon 01-17-2023 Basophil, Absolute 0.0 10 3/mcL Normal 0.0-0.3 [facility] ([place]) Comment on above: Performed By: #### A WAYNE, CBC, LD, ADIFF, GFR, [id number], CMP ####[address] [address] Basophils/100 WBC (Bld) 0.4 % Normal 0.0-2.5 [facility] ([place]) Comment on above: Performed By: #### A WAYNE, CBC, LD, ADIFF, GFR, 625473, CMP ####[address] [address] Eosinophil, Absolute 0.0 10 3/mcL Normal 0.0-0.7 [facility] ([place]) Comment on above: Performed By: #### A WAYNE, CBC, LD, ADIFF, GFR, 420264, CMP ####[address] [address] Eosinophils/100 WBC (Bld) 0.4 % Normal 0.0-6.0 [facility] ([place]) Comment on above: Performed By: #### A WAYNE, CBC, LD, ADIFF, GFR, 795967, CMP ####[address] [address] Lymphocyte, Absolute 1.9 10 3/mcL Normal 0.9-4.3 [facility] ([place]) Comment on above: Performed By: #### A WAYNE, CBC, LD, ADIFF, GFR, 977198, CMP ####[address] [address] Lymphocytes/100 WBC (Bld) 23.6 % Normal 20.0-40.0 [facility] ([place]) Comment on above: Performed By: #### A WAYNE, CBC, LD, ADIFF, GFR, 182953, CMP ####[address] [address] Monocyte, Absolute 0.6 10 3/mcL Normal 0.1-1.4 [facility] ([place]) Comment on above: Performed By: #### A WAYNE, CBC, LD, ADIFF, GFR, 159412, CMP ####[address] [address] Monocytes/100 WBC (Bld) 6.9 % Normal 2.0-13.0 [facility] ([place]) Comment on above: Performed By: #### A WAYNE, CBC, LD, ADIFF, GFR, 557356, CMP ####[address] [address] Neutrophils/100 WBC (Bld) 68.7 % Normal 50.0-75.0 [facility] ([place]) Comment on above: Performed By: #### A WAYNE, CBC, LD, ADIFF, GFR, 311791, CMP ####[address] [address] .GFRon 01-17-2023 GFR >60 Normal [facility] ([place]) Comment on above: Result Comment: GFR Population [...] #### A WAYNE, CBC, LD, ADIFF, GFR, 514807, CMP ####[address] [address] GFR Non- >60 Normal [facility] ([place]) Comment on above: Result Comment: GFR Population [...] #### A WAYNE, CBC, LD, ADIFF, GFR, 872445, CMP ####[place] [address] .NEUABSon 01-17-2023 Neutrophil, Absolute 5.5 10 3/mcL Normal 2.3-8.1 [facility] ([place]) Comment on above: Performed By: #### A WAYNE, CBC, LD, ADIFF, GFR, 221167, CMP ####[place] [address] BILEon 01-17-2023 Chenodeoxycholate 1.9 umol/l Normal [facility] ([place]) Comment on above: Result Comment: Refe rence Range:All Ages: <5.8 Performed By: #### 5 [id number] ####Sophia [address] [place], [place] [address] Cholate 2.3 umol/l High [facility] ([place]) Comment on above: Result Comment: Refe rence Range:All Ages: <2.2 Performed By: #### 5 84813 ####Sophia [address] [place], [place] [address] Deoxycholate 0.40 umol/l Normal [facility] ([place]) Comment on above: Result Comment: Refe rence Range:All Ages: <3.3 Performed By: #### 5 40544 ####Sophia [address] [place], [place] [address] Total Bile Acids 4.6 umol/l Normal [facility] ([place]) Comment on above: Result Comment: This test was developed and its performance characteristicsdetermined by [facility]. It has not been cleared or approvedby the Food and Drug Administration.Reference Range:All Ages: <9.2Performed At: [facility] [id number] [place], [place] [id number] Brian F MD Ph:[phone] Performed By: #### 5 75681 ####Sophia [address] [place] [id number] Ursodeoxycholate <0.10 Normal [facility] ([place]) Comment on above: Result Comment: Refe rence Range:All Ages: <1.9 Performed By: #### 5 73187 ####Sophia [address] [place] [id number] CBCon 01-17-2023 Erythrocyte distribution width (RBC) [Ratio] 14.9 % Normal 11.5-15.5 [facility] ([place]) Comment on above: Performed By: #### A WAYNE, CBC, LD, ADIFF, GFR, 680863, CMP ####[place] [address] Hematocrit (Bld) [Volume fraction] 35.3 % Normal 34.0-46.0 [facility] ([place]) Comment on above: Performed By: #### A WAYNE, CBC, LD, ADIFF, GFR, 531831, CMP ####[address] [address] Hgb 11.8 G/dL Low 12.0-16.0 [facility] ([place]) Comment on above: Performed By: #### A WAYNE, CBC, LD, ADIFF, GFR, 701424, CMP ####[address] [address] MCH (RBC) [Entitic mass] 25.4 pg Low 27.0-33.0 [facility] ([place]) Comment on above: Performed By: #### A WAYNE, CBC, LD, ADIFF, GFR, 096723, CMP ####[place] [address] MCHC 33.4 G/dL Normal 32.0-36.0 [facility] ([place]) Comment on above: Performed By: #### A WAYNE, CBC, LD, ADIFF, GFR, 864487, CMP ####[place] [address] MCV (RBC) [Entitic vol] 76.0 fL Low 80.0-99.0 [facility] ([place]) Comment on above: Performed By: #### A WAYNE, CBC, LD, ADIFF, GFR, 888415, CMP ####[place] [address] Platelet 148 10 3/mcL Low 150-450 [facility] ([place]) Comment on above: Performed By: #### A WAYNE, CBC, LD, ADIFF, GFR, 609532, CMP ####[place] [address] Platelet mean volume (Bld) [Entitic vol] 10.4 fL Normal 6.6-10.5 [facility] ([place]) Comment on above: Performed By: #### A WAYNE, CBC, LD, ADIFF, GFR, 128936, CMP ####[place] [address] RBC 4.65 10 6/mcL Normal 4.10-5.30 [facility] ([place]) Comment on above: Performed By: #### A WAYNE, CBC, LD, ADIFF, GFR, 149761, CMP ####[place] [address] WBC 7.9 10 3/mcL Normal 4.5-10.8 [facility] ([place]) Comment on above: Performed By: #### A WAYNE, CBC, LD, ADIFF, GFR, 185426, CMP ####[place] [address] CMPon 01-17-2023 Albumin Level 2.5 G/dL Low 3.2-4.8 [facility] ([place]) Comment on above: Performed By: #### A WAYNE, CBC, LD, ADIFF, GFR, 911298, CMP ####[address] [address] Albumin/Globulin [Mass ratio] 0.6 {ratio} Low 0.9-1.6 [facility] ([place]) Comment on above: Performed By: #### A WAYNE, CBC, LD, ADIFF, GFR, 362693, CMP ####[address] [address] ALP [Catalytic activity/Vol] 274 U/L High 38-126 [facility] ([place]) Comment on above: Performed By: #### A WAYNE, CBC, LD, ADIFF, GFR, 636812, CMP ####[address] [address] ALT [Catalytic activity/Vol] 60 U/L High 10-49 [facility] ([place]) Comment on above: Performed By: #### A WAYNE, CBC, LD, ADIFF, GFR, 040899, CMP ####[address] [address] AST [Catalytic activity/Vol] 27 U/L Normal 8-34 [facility] ([place]) Comment on above: Performed By: #### A WAYNE, CBC, LD, ADIFF, GFR, 997557, CMP ####[address] [address] Bili Total 0.40 mg/dL Normal 0.20-1.20 [facility] ([place]) Comment on above: Result Comment: Use of this assay is not recommended for patients undergoing treatment with eltrombopag due to the potential for falsely elevated results. Performed By: #### A WAYNE, CBC, LD, ADIFF, GFR, 083886, CMP ####[address] [address] BUN/Creatinine Ratio 13.2 ratio Normal 10.0-22.0 [facility] ([place]) Comment on above: Performed By: #### A WAYNE, CBC, LD, ADIFF, GFR, 136027, CMP ####[address] [address] Calcium [Mass/Vol] 9.4 mg/dL Normal 8.7-10.4 [facility] ([place]) Comment on above: Performed By: #### A WAYNE, CBC, LD, ADIFF, GFR, 549649, CMP ####[place] [address] Chloride [Moles/Vol] 106 mmol/L Normal 98-110 [facility] ([place]) Comment on above: Performed By: #### A WAYNE, CBC, LD, ADIFF, GFR, 661017, CMP ####[place] [address] CO2 [Moles/Vol] 25 mmol/L Normal 22-32 [facility] ([place]) Comment on above: Performed By: #### A WAYNE, CBC, LD, ADIFF, GFR, 724761, CMP ####[place] [address] Creatinine [Mass/Vol] 0.53 mg/dL Normal 0.50-1.20 [facility] ([place]) Comment on above: Performed By: #### A WAYNE, CBC, LD, ADIFF, GFR, 787182, CMP ####[place] [address] Electrolyte Balance 7.0 mEq/L Normal 4.0-15.0 [facility] ([place]) Comment on above: Performed By: #### A WAYNE, CBC, LD, ADIFF, GFR, 417645, CMP ####[place] [address] Globulin 4.3 G/dL High 1.5-3.8 [facility] ([place]) Comment on above: Performed By: #### A WAYNE, CBC, LD, ADIFF, GFR, 534627, CMP ####[place] [address] Glucose [Mass/Vol] 121 mg/dL High 70-110 [facility] ([place]) Comment on above: Performed By: #### A WAYNE, CBC, LD, ADIFF, GFR, 126299, CMP ####[address] [place] [address] Potassium [Moles/Vol] 4.2 mmol/L Normal 3.5-5.0 [facility] ([place]) Comment on above: Performed By: #### A WAYNE, CBC, LD, ADIFF, GFR, 867573, CMP ####[address] [address] Sodium [Moles/Vol] 138 mmol/L Normal 136-145 [facility] ([place]) Comment on above: Performed By: #### A WAYNE, CBC, LD, ADIFF, GFR, 212492, CMP ####[address] [address] Total Protein 6.8 G/dL Normal 5.7-8.2 [facility] ([place]) Comment on above: Result Comment: No te - New Reference Range in effect 19 Performed By: #### A WAYNE, CBC, LD, ADIFF, GFR, 200960, CMP ####[address] [address] Urea nitrogen [Mass/Vol] 7.0 mg/dL Low 8.0-22.0 [facility] ([place]) Comment on above: Performed By: #### A WAYNE, CBC, LD, ADIFF, GFR, 724926, CMP ####[address] [address] LDHon 01-17-2023 LDH 193 U/L Normal 120-246 [facility] ([place]) Comment on above: Performed By: #### A WAYNE, CBC, LD, ADIFF, GFR, 191503, CMP ####[address] [address] RPCURon 01-17-2023 U Creatinine 69.8 mg/dL Normal [facility] ([place]) Comment on above: Performed By: #### R PCUR ####[address] [address] U Protein 24.4 mg/dL Normal [facility] ([place]) Comment on above: Performed By: #### R PCUR ####[address] [address] U Ratio Prot/Creat 0.3 ratio Normal [facility] ([place]) Comment on above: Result Comment: resu lt calculated by rule GL_UR_PROT_NOTCALC_OLD(U Protein/U Creatinine) Performed By: #### R PCAUBREE ####[place] [address] .Auto Diffon 01-14-2023 Basophil, Absolute 0.1 10 3/mcL Normal 0.0-0.3 [facility] ([place]) Comment on above: Performed By: #### C RE, ADIFF, URIC, ANEU, AST, CBC, GFR, ALT ####[place] [address] Basophils/100 WBC (Bld) 0.7 % Normal 0.0-2.5 [facility] ([place]) Comment on above: Performed By: #### C RE, ADIFF, URIC, ANEU, AST, CBC, GFR, ALT ####[place] [address] Eosinophil, Absolute 0.0 10 3/mcL Normal 0.0-0.7 [facility] ([place]) Comment on above: Performed By: #### C RE, ADIFF, URIC, ANEU, AST, CBC, GFR, ALT ####[place] [address] Eosinophils/100 WBC (Bld) 0.5 % Normal 0.0-6.0 [facility] ([place]) Comment on above: Performed By: #### C RE, ADIFF, URIC, ANEU, AST, CBC, GFR, ALT ####[place] [address] Lymphocyte, Absolute 2.4 10 3/mcL Normal 0.9-4.3 [facility] ([place]) Comment on above: Performed By: #### C RE, ADIFF, URIC, ANEU, AST, CBC, GFR, ALT ####[place] [address] Lymphocytes/100 WBC (Bld) 28.5 % Normal 20.0-40.0 [facility] ([place]) Comment on above: Performed By: #### C RE, ADIFF, URIC, ANEU, AST, CBC, GFR, ALT ####[address] [address] Monocyte, Absolute 0.8 10 3/mcL Normal 0.1-1.4 [facility] ([place]) Comment on above: Performed By: #### C RE, ADIFF, URIC, ANEU, AST, CBC, GFR, ALT ####[address] [address] Monocytes/100 WBC (Bld) 9.0 % Normal 2.0-13.0 [facility] ([place]) Comment on above: Performed By: #### C RE, ADIFF, URIC, ANEU, AST, CBC, GFR, ALT ####[address] [address] Neutrophils/100 WBC (Bld) 61.3 % Normal 50.0-75.0 [facility] ([place]) Comment on above: Performed By: #### C RE, ADIFF, URIC, ANEU, AST, CBC, GFR, ALT ####[address] [address] .GFRon 01-14-2023 GFR >60 Normal [facility] ([place]) Comment on above: Result Comment: GFR Population [...] ADIFF, URIC, ANEU, AST, CBC, GFR, ALT ####[address] [address] GFR Non- >60 Normal [facility] ([place]) Comment on above: Result Comment: GFR Population [...] ADIFF, URIC, ANEU, AST, CBC, GFR, ALT ####[place] [address] .NEUABSon 01-14-2023 Neutrophil, Absolute 5.2 10 3/mcL Normal 2.3-8.1 [facility] ([place]) Comment on above: Performed By: #### C RE, ADIFF, URIC, ANEU, AST, CBC, GFR, ALT ####[place] [address] ALT/SGPTon 01-14-2023 ALT [Catalytic activity/Vol] 71 U/L High 10-49 [facility] ([place]) Comment on above: Performed By: #### C RE, ADIFF, URIC, ANEU, AST, CBC, GFR, ALT ####[place] [address] Ariel 01-14-2023 AST [Catalytic activity/Vol] 35 U/L High 8-34 [facility] ([place]) Comment on above: Performed By: #### C RE, ADIFF, URIC, ANEU, AST, CBC, GFR, ALT ####[place] [address] CBCon 01-14-2023 Erythrocyte distribution width (RBC) [Ratio] 14.9 % Normal 11.5-15.5 [facility] ([place]) Comment on above: Performed By: #### C RE, ADIFF, URIC, ANEU, AST, CBC, GFR, ALT ####[place] [address] Hematocrit (Bld) [Volume fraction] 34.8 % Normal 34.0-46.0 [facility] ([place]) Comment on above: Performed By: #### C RE, ADIFF, URIC, ANEU, AST, CBC, GFR, ALT ####[place] [address] Hgb 11.6 G/dL Low 12.0-16.0 [facility] ([place]) Comment on above: Performed By: #### C RE, ADIFF, URIC, ANEU, AST, CBC, GFR, ALT ####[place] [address] MCH (RBC) [Entitic mass] 25.2 pg Low 27.0-33.0 [facility] ([place]) Comment on above: Performed By: #### C RE, ADIFF, URIC, ANEU, AST, CBC, GFR, ALT ####[place] [address] MCHC 33.3 G/dL Normal 32.0-36.0 [facility] ([place]) Comment on above: Performed By: #### C RE, ADIFF, URIC, ANEU, AST, CBC, GFR, ALT ####[place] [address] MCV (RBC) [Entitic vol] 75.5 fL Low 80.0-99.0 [facility] ([place]) Comment on above: Performed By: #### C RE, ADIFF, URIC, ANEU, AST, CBC, GFR, ALT ####[place] [address] Platelet 145 10 3/mcL Low 150-450 [facility] ([place]) Comment on above: Performed By: #### C RE, ADIFF, URIC, ANEU, AST, CBC, GFR, ALT ####[place] [address] Platelet mean volume (Bld) [Entitic vol] 10.3 fL Normal 6.6-10.5 [facility] ([place]) Comment on above: Performed By: #### C RE, ADIFF, URIC, ANEU, AST, CBC, GFR, ALT ####[place] [id number] [place] [address] RBC 4.61 10 6/mcL Normal 4.10-5.30 [facility] ([place]) Comment on above: Performed By: #### C RE, ADIFF, URIC, ANEU, AST, CBC, GFR, ALT ####[place] [address] WBC 8.4 10 3/mcL Normal 4.5-10.8 [facility] ([place]) Comment on above: Performed By: #### C RE, ADIFF, URIC, ANEU, AST, CBC, GFR, ALT ####[place] [address] CREon 01-14-2023 Creatinine [Mass/Vol] 0.56 mg/dL Normal 0.50-1.20 [facility] ([place]) Comment on above: Performed By: #### C RE, ADIFF, URIC, ANEU, AST, CBC, GFR, ALT ####[place] [address] Progress Noteon 01-14-2023 Bobbin Trucker Authentication Interface Message Text [facility]NAL [facility] - at [place] DR. ARMSTRONG OFFICE VISIT NOTE DOS: 01/14/2023 01/14/2023 Chief Complaint She presents for review of progress in thus far and for comprehensive review of her maternal -obstetric- risks in this . The reasons for the visit are as highlighted in the concluding summary communication to payment processor which is my problem-based office review. History [...] crosses the placenta into the fetus without bed bug exterminator safety data); however, it is considered and acceptable on a selective basis. = Conclusions: She articulates understanding of the foregoing and care plan. Questions were both encouraged and answered and our SENIOR SOLUTIONS ENGINEER will review her glycemic control weekly and [...] also utilize Pepcid 20 mg twice daily [id number] E-scribed prescription for: Levemir insulin 20 units at bedtime along with required insulin syringes and needles supply. Our nurse did diabetic teaching today Referrals: Patient prefers to deliver at [place] and thus has embraced [facility] referral and appointment is on January 17, 2023 at 9 AM. Referral to [facility] diabetic teaching has also been done today Scheduled with us: Today I obtain CBC with platelet count and repeat AST/ALT as she has history of recent (more content not included)... Normal [facility] URICon 01-14-2023 Uric Acid Lvl 4.4 mg/dL Normal 3.1-7.8 [facility] ([place]) Comment on above: Result Comment: No te - New Reference Range in effect 19 Performed By: #### C RE, ADIFF, URIC, ANEU, AST, CBC, GFR, ALT ####[facility] [place] [address] GLFon 01-13-2023 Glucose [Mass/Vol] 120 mg/dL High 83-110 [facility] ([place]) Comment on above: Performed By: #### G LF ####Sophia [address] [place], [place] [address] GLUon 01-13-2023 Glucose [Mass/Vol] 176 mg/dL High 70-105 [facility] ([place]) Comment on above: Performed By: #### G ROBIN ####Sophia [address] [place], [place] [address] HEPACon 01-13-2023 Hep A IgM Ab Non-Reactive Normal Non-Reactive [facility] ([place]) Comment on above: Performed By: #### H EPAC ####[place] [address] Hep A IgM Ab Int Normal [facility] ([place]) Comment on above: Result Comment: No s erological evidence of a current Hepatitis A infection.See Interp Performed By: #### H EPAC ####[place] [address] Hep B Core IgM Ab Non-Reactive Normal Non-Reactive [facility] ([place]) Comment on above: Performed By: #### H EPAC ####[place] [address] Hep B Core IgM Ab Int Normal [facility] ([place]) Comment on above: Result Comment: Samp les with a value < 0.80 Index are considered nonreactive (negative) for IgM antibodies to hepatitis B core antigen.See Interp Performed By: #### H EPAC ####[place] [address] Hep B Surf Ag Non-Reactive Normal Non-Reactive [facility] ([place]) Comment on above: Performed By: #### H EPAC ####[place] [address] Hep C Ab Non-Reactive Normal Non-Reactive [facility] ([place]) Comment on above: Performed By: #### H EPAC ####[place] [address] Hep C Ab Int [facility] ([place]) Comment on above: Result Comment: Nonr eactive: Samples with a value < 0.80 are considered nonreactive (negative) for antibodies to HCV.A negative test result does not exclude the possibility of exposure to or infection with HCV. HCV antibodies may be undetectable in some stages of the infection and in some clinical conditions.See Interp Performed By: #### H EPAC ####[place] [address] LABORATORYOrdered By: SYSTEM SYSTEM on 01-13-2023 Glucose [Mass/Vol] 176 mg/dL High 70 - 105 mg/dL AO ADM SS LABORATORYOrdered By: Brooklyn Morales on 01-13-2023 Glucose [Mass/Vol] 120 mg/dL High 83 - 110 mg/dL AO ADM SS .GFRon 01-12-2023 GFR 143 ml/min/1.73sqm Normal [facility] ([place]) Comment on above: Result Comment: GFR Population [...] By: #### G FR, CMP ####[address] [place], [place] [address] GFR Non- 118 ml/min/1.73sqm Normal [facility] ([place]) Comment on above: Result Comment: GFR Population [...] Performed By: #### G FR, CMP ####Sophia [address] [place], [place] [address] CMPon 01-12-2023 Albumin Level 2.3 G/dL Low 3.5-5.0 [facility] ([place]) Comment on above: Performed By: #### Rio ALBARRAN, CMP ####[address] [place], [place] [address] Albumin/Globulin [Mass ratio] 0.5 {ratio} Low 1.1-2.5 [facility] ([place]) Comment on above: Performed By: #### Rio ALBARRAN, CMP ####[address] [place], [place] [address] ALP [Catalytic activity/Vol] 276 U/L High 40-135 [facility] ([place]) Comment on above: Performed By: #### Rio ALBARRAN, CMP ####[address] [place], [place] [address] ALT [Catalytic activity/Vol] 84 U/L High 14-59 [facility] ([place]) Comment on above: Performed By: #### Rio ALBARRAN, CMP ####[address] [place], [place] [address] AST [Catalytic activity/Vol] 35 U/L Normal 10-40 [facility] ([place]) Comment on above: Performed By: #### Rio ABLARRAN, CMP ####[address] [place], [place] [address] Bili Total 0.5 mg/dL Normal 0.2-1.0 [facility] ([place]) Comment on above: Result Comment: Use of this assay is not recommended for patients undergoing treatment with eltrombopag due to the potential for falsely elevated results. Performed By: #### Rio ALBARRAN, CMP ####[address] [place], [place] [address] BUN/Creatinine Ratio 8 ratio Normal 7-27 [facility] ([place]) Comment on above: Performed By: #### Rio ALBARRAN, CMP ####[address] [place], [place] [address] Calcium [Mass/Vol] 8.5 mg/dL Normal 8.4-10.2 [facility] ([place]) Comment on above: Performed By: #### Rio ALBARRAN, CMP ####[address] [place], [place] [address] Chloride [Moles/Vol] 100 mmol/L Normal 98-107 [facility] ([place]) Comment on above: Performed By: #### Rio ALBARRAN, CMP ####[address] [place], [place] [address] CO2 [Moles/Vol] 25 mmol/L Normal 22-29 [facility] ([place]) Comment on above: Performed By: #### Rio ALBARRAN, CMP ####[address] [place], [place] [address] Creatinine [Mass/Vol] 0.63 mg/dL Normal 0.55-1.02 [facility] ([place]) Comment on above: Performed By: #### Rio ALBARRAN, CMP ####[address] [place], [place] [address] Electrolyte Balance 11.0 mEq/L Normal 4.0-15.0 [facility] ([place]) Comment on above: Performed By: #### Rio ALBARRAN, CMP ####[address] [place], [place] [address] Globulin 4.7 G/dL Normal [facility] ([place]) Comment on above: Performed By: #### Rio ALBARRAN, CMP ####[address] [place], [place] [address] Glucose [Mass/Vol] 109 mg/dL High 70-105 [facility] ([place]) Comment on above: Performed By: #### Rio ALBARRAN, CMP ####[address] [place], [place] [address] Potassium [Moles/Vol] 3.5 mmol/L Normal 3.5-5.1 [facility] ([place]) Comment on above: Performed By: #### Rio ALBARRAN, CMP ####[address] [place], [place] [address] Sodium [Moles/Vol] 136 mmol/L Normal 136-145 [facility] ([place]) Comment on above: Performed By: #### Rio ALBARRAN, CMP ####[address] [place], [place] [address] Total Protein 7.0 G/dL Normal 6.4-8.2 [facility] ([place]) Comment on above: Performed By: #### G , CMP ####Sophia [address] [place], [place] [address] Urea nitrogen [Mass/Vol] 5 mg/dL Low 7-18 [facility] ([place]) Comment on above: Performed By: #### G , CMP ####S[address]ia [address] [place], [place] [address] LABORATORYOrdered By: Garrett Brower on 01-12-2023 Glucose [Mass/Vol] 132 mg/dL High 70 - 110 mg/dL [facility] Work Phone: Time of Stated Blood Glucose [id number] [facility] Work Phone: LABORATORYOrdered By: SYSTEM SYSTEM [...] Nom (Bld) B positive (01/12/23 9:03 PM) [facility] Work Phone: Group B Strep, External Unknown (01/12/23 9:03 PM) [facility] Work Phone: Hepatitis B Date Performed [id number] [facility] Work Phone: Hepatitis B, External Negative (01/12/23 9:03 PM) [facility] Work Phone: HIV Antibodies, External Unknown (01/12/23 9:03 PM) [facility] Work Phone: RPR, External Nonreactive (01/12/23 9:03 PM) [facility] Work Phone: Rubella, External Immune (01/12/23 9:03 PM) [facility] Work Phone: .GFRon 01-08-2023 GFR 123 ml/min/1.73sqm Normal [facility] ([place]) Comment on above: Result Comment: GFR Population [...] By: #### C MP, GFR ####[address] [place], [place] [address] GFR Non- 101 ml/min/1.73sqm Normal [facility] ([place]) Comment on above: Result Comment: GFR Population [...] Performed By: #### C MP, GFR ####Sophia [address] [place], [place] [address] CMPon 01-08-2023 Albumin Level 2.3 G/dL Low 3.5-5.0 [facility] [facility] ([place] Comment on above: Performed By: #### C MP, GFR ####Sophia Shbxlqqf9[address] [place], [place] [address] Albumin/Globulin [Mass ratio] 0.5 {ratio} Low 1.1-2.5 [facility] ([place]) Comment on above: Performed By: #### C MP, GFR ####Sophia Kztilcfz919 [place], [place] [address] ALP [Catalytic activity/Vol] 279 U/L High 40-135 [facility] ([place]) Comment on above: Performed By: #### C MP, GFR ####Sophia [address] [place], [place] [address] ALT [Catalytic activity/Vol] 161 U/L High 14-59 [facility] ([place]) Comment on above: Performed By: #### C MP, GFR ####Sophia [address] [place], [place] [address] AST [Catalytic activity/Vol] 57 U/L High 10-40 [facility] ([place]) Comment on above: Performed By: #### C MP, GFR ####Sophia [address] [place], [place] [address] Bili Total 0.5 mg/dL Normal 0.2-1.0 [facility] ([place]) Comment on above: Result Comment: Use of this assay is not recommended for patients undergoing treatment with eltrombopag due to the potential for falsely elevated results. Performed By: #### C MP, GFR ####Sophia Cnkpvbfg[address] [place], [place] [address] BUN/Creatinine Ratio 8 ratio Normal 7-27 [facility] ([place]) Comment on above: Performed By: #### C MP, GFR ####Sophia Szyzlmsl[address] [place], [place] [address] Calcium [Mass/Vol] 8.9 mg/dL Normal 8.4-10.2 [facility] ([place]) Comment on above: Performed By: #### C MP, GFR ####Sophia Gmnxrmbq115 [place], [place] [address] Chloride [Moles/Vol] 101 mmol/L Normal 98-107 [facility] ([place]) Comment on above: Performed By: #### C MP, GFR ####Sophia [address] [place], [place] [address] CO2 [Moles/Vol] 23 mmol/L Normal 22-29 [facility] ([place]) Comment on above: Performed By: #### C MP, GFR ####Sophia Xgkbumja[address] [place], [place] [address] Creatinine [Mass/Vol] 0.72 mg/dL Normal 0.55-1.02 [facility] ([place]) Comment on above: Performed By: #### C MP, GFR ####Sophia [address] [place], [place] [address] Electrolyte Balance 13.0 mEq/L Normal 4.0-15.0 [facility] ([place]) Comment on above: Performed By: #### C MP, GFR ####Sophia Rbqonsyz[address] [place], [place] [address] Globulin 4.6 G/dL Normal [facility] ([place]) Comment on above: Performed By: #### C MP, GFR ####Sophiagary BullPpsgrqab427 [place], [place] [address] Glucose [Mass/Vol] 172 mg/dL High 70-105 [facility] ([place]) Comment on above: Performed By: #### C MP, GFR ####Sophia [address] [place], [place] [address] Potassium [Moles/Vol] 4.1 mmol/L Normal 3.5-5.1 [facility] ([place]) Comment on above: Performed By: #### C MP, GFR ####Sophia Fxudmlgi496 [place], [place] [address] Sodium [Moles/Vol] 137 mmol/L Normal 136-145 [facility] ([place]) Comment on above: Performed By: #### C MP, GFR ####Sophiagary BullZubcuhan108 [place], [place] [address] Total Protein 6.9 G/dL Normal 6.4-8.2 [facility] ([place]) Comment on above: Performed By: #### C MP, GFR ####Sophia Kuycdjqt904 [place], [place] [address] Urea nitrogen [Mass/Vol] 6 mg/dL Low 7-18 [facility] ([place]) Comment on above: Performed By: #### C MP, GFR ####Sophia Snmzaktc[address] [place], [place] [address] GLFon 01-08-2023 Glucose [Mass/Vol] 177 mg/dL High 83-110 [facility] ([place]) Comment on above: Performed By: #### G LF ####Sophia Nxtowbvu174 [place], [place] [address] LABORATORYOrdered By: SYSTEM SYSTEM on 01-08-2023 Albumin [...] 01-06-2023 Chenodeoxycholic Acid 7.8 umol/l High 0.0-3.4 [facility] ([place]) Comment on above: Performed By: #### C MP, GFR, BILE, HFP ####Sophia [address] [place], [place] [address] Cholic Acid 8.8 umol/l High 0.0-1.9 [facility] ([place]) Comment on above: Performed By: #### C MP, GFR, BILE, HFP ####Sophia [address] [place], [place] [address] Deoxycholic Acid 1.3 umol/l Normal 0.0-2.5 [facility] ([place]) Comment on above: Performed By: #### C MP, GFR, BILE, HFP ####Sophia [address] [place], [place] [address] Total Bile Acids 18.2 umol/l High 0.0-7.0 [facility] ([place]) Comment on above: Result Comment: INTE RPRETIVE INFORMATION: Bile Acids, Fractionated and TotalThis test was developed and its performance characteristics determined by [facility]. It has not been cleared or approved by the [place] Food and Drug Administration. This test was performed in a CLIA certified laboratory and is intended for clinical purposes.Performed By: [facility] [place] [id number] Director: Froilan Childress MD, PhDCLIA Number: [id number] Performed By: #### C MP, GFR, BILE, HFP ####Sophia Ydjhzver[address] [place], [place] [address] Ursodeoxycholic Acid 0.3 umol/l Normal 0.0-1.0 [facility] ([place]) Comment on above: Performed By: #### C MP, GFR, BILE, HFP ####[facility] [place] [address] .Auto Diffon 01-05-2023 Basophil, Absolute 0.0 10 3/mcL Normal 0.0-0.2 [facility] ([place]) Comment on above: Performed By: #### H EPAC, GGT ####[place] [address]#### CBC, ADIFF, CMP, ANEU, GFR ####[address] [address] Basophils/100 WBC (Bld) 0.4 % Normal 0.0-2.5 [facility] ([place]) Comment on above: Performed By: #### H EPAC, GGT ####[place] [address]#### CBC, ADIFF, CMP, ANEU, GFR ####[address] [address] Eosinophil, Absolute 0.1 10 3/mcL Normal 0.0-0.4 [facility] ([place]) Comment on above: Performed By: #### H EPAC, GGT ####[place] [address]#### CBC, ADIFF, CMP, ANEU, GFR ####[address] [address] Eosinophils/100 WBC (Bld) 0.7 % Normal 0.0-7.0 [facility] ([place]) Comment on above: Performed By: #### H EPAC, GGT ####[place] [address]#### CBC, ADIFF, CMP, ANEU, GFR ####[facility] [place] [address] Lymphocyte, Absolute 2.2 10 3/mcL Normal 0.8-3.9 [facility] ([place]) Comment on above: Performed By: #### H EPAC, GGT ####[place] [address]#### CBC, ADIFF, CMP, ANEU, GFR ####Sophia Bnugxvuc[address] [place], [place] [address] Lymphocytes/100 WBC (Bld) 28.3 % Normal 10.0-50.0 [facility] ([place]) Comment on above: Performed By: #### H EPAC, GGT ####[place] [address]#### CBC, ADIFF, CMP, ANEU, GFR ####[place] Abdjqiwq[address] [place], [place] [address] Monocyte, Absolute 0.6 10 3/mcL Normal 0.2-1.0 [facility] ([place]) Comment on above: Performed By: #### H EPAC, GGT ####[place] [address]#### CBC, ADIFF, CMP, ANEU, GFR ####[place] [address]hhylyl[address] [place], [place] [address] Monocytes/100 WBC (Bld) 8.2 % Normal 1.7-13.0 [facility] ([place]) Comment on above: Performed By: #### H EPAC, GGT ####[place] [address]#### CBC, ADIFF, CMP, ANEU, GFR ####Sophia Iebolnki[address] [place], [place] [address] Neutrophils/100 WBC (Bld) 62.4 % Normal 37.0-80.0 [facility] ([place]) Comment on above: Performed By: #### H EPAC, GGT ####[place] [address]#### CBC, ADIFF, CMP, ANEU, GFR ####[place] Kknucduz8[address] [place], [place] [address] .GFRon 01-05-2023 GFR 131 ml/min/1.73sqm Normal [facility] ([place]) Comment on above: Result Comment: [...] meters Performed By: #### H EPAC, GGT ####[address] [address]#### CBC, ADIFF, CMP, ANEU, GFR ####[place] Malbssek[address] [place], [place] [address] GFR Non- 108 ml/min/1.73sqm Normal [facility] ([place]) Comment on above: Result Comment: GFR Population [...] meters Performed By: #### H EPAC, GGT ####[place] [address]#### CBC, ADIFF, CMP, ANEU, GFR ####[place] Rmnauemy[address] [place], [place] [address] .NEUABSon 01-05-2023 Neutrophil, Absolute 4.8 10 3/mcL Normal 2.9-6.2 [facility] ([place]) Comment on above: Performed By: #### H EPAC, GGT ####[address] [address]#### CBC, ADIFF, CMP, ANEU, GFR ####[place] Loghiwfj177 [place], [place] [address] CBCon 01-05-2023 Erythrocyte distribution width (RBC) [Ratio] 14.7 % High 11.5-14.5 [facility] ([place]) Comment on above: Performed By: #### H EPAC, GGT ####[place] [address]#### CBC, ADIFF, CMP, ANEU, GFR ####[place] Eotkwdna996 [place] [id number] Hematocrit (Bld) [Volume fraction] 33.1 % Low 37.0-47.0 [facility] ([place]) Comment on above: Performed By: #### H EPAC, GGT ####[place] [address]#### CBC, ADIFF, CMP, ANEU, GFR ####[place] Ixwzaaqz022 [place] [address] Hgb 10.8 G/dL Low 12.0-16.0 [facility] ([place]) Comment on above: Performed By: #### H EPAC, GGT ####[place] [address]#### CBC, ADIFF, CMP, ANEU, GFR ####[place] [address] [place] [id number] MCH (RBC) [Entitic mass] 24.5 pg Low 27.0-31.2 [facility] ([place]) Comment on above: Performed By: #### H EPAC, GGT ####[place] [address]#### CBC, ADIFF, CMP, ANEU, GFR ####Sophia Odmpzern[address] [place] [address] MCHC 32.6 G/dL Low 33.0-37.0 [facility] ([place]) Comment on above: Performed By: #### H EPAC, GGT ####[place] [address]#### CBC, ADIFF, CMP, ANEU, GFR ####Sophia Cvsrfkph120 [place] [address] MCV (RBC) [Entitic vol] 75.1 fL Low 80.0-94.0 [facility] ([place]) Comment on above: Performed By: #### H EPAC, GGT ####[place] [address]#### CBC, ADIFF, CMP, ANEU, GFR ####Sophia Bcfflnlw609 [place] [id number] Platelet 159 10 3/mcL Normal 130-400 [facility] ([place]) Comment on above: Performed By: #### H EPAC, GGT ####[place] [address]#### CBC, ADIFF, CMP, ANEU, GFR ####Sophia Fibgphqz207 [place] [address] Platelet mean volume (Bld) [Entitic vol] 9.3 fL Normal 7.4-10.4 [facility] ([place]) Comment on above: Performed By: #### H EPAC, GGT ####[place] [address]#### CBC, ADIFF, CMP, ANEU, GFR ####[place] Vvnlvyop[address] [place] [id number] RBC 4.41 10 6/mcL Normal 4.20-5.40 [facility] ([place]) Comment on above: Performed By: #### H EPAC, GGT ####[place] [address]#### CBC, ADIFF, CMP, ANEU, GFR ####Sophia Tzcblzvm232 [place] [address] WBC 7.6 10 3/mcL Normal 4.6-10.8 [facility] ([place]) Comment on above: Performed By: #### H EPAC, GGT ####[place] [address]#### CBC, ADIFF, CMP, ANEU, GFR ####Sophia Tthcsrjm[address] [place] [id number] CMPon 01-05-2023 Albumin Level 2.1 G/dL Low 3.5-5.0 [facility] ([place]) Comment on above: Performed By: #### H EPAC, GGT ####[place] [address]#### CBC, ADIFF, CMP, ANEU, GFR ####Sophia Gjrgiaev[address] [place], [place] [address] Albumin/Globulin [Mass ratio] 0.5 {ratio} Low 1.1-2.5 [facility] ([place]) Comment on above: Performed By: #### H EPAC, GGT ####[place] [address]#### CBC, ADIFF, CMP, ANEU, GFR ####[place] Zwwertgs[address] [place], [place] [address] ALP [Catalytic activity/Vol] 256 U/L High 40-135 [facility] ([place]) Comment on above: Performed By: #### H EPAC, GGT ####[place] [address]#### CBC, ADIFF, CMP, ANEU, GFR ####Sophia Zovxyykx[address] [place], [place] [address] ALT [Catalytic activity/Vol] 169 U/L High 14-59 [facility] ([place]) Comment on above: Performed By: #### H EPAC, GGT ####[place] [address]#### CBC, ADIFF, CMP, ANEU, GFR ####Sophia Uqyjgzlq[address] [place], [place] [address] AST [Catalytic activity/Vol] 57 U/L High 10-40 [facility] ([place]) Comment on above: Performed By: #### H EPAC, GGT ####[place] [address]#### CBC, ADIFF, CMP, ANEU, GFR ####Sophia Iyguqqzl343 [place], [place] [address] Bili Total 0.5 mg/dL Normal 0.2-1.0 [facility] ([place]) Comment on above: Result Comment: Use of this assay is not recommended for patients undergoing treatment with eltrombopag due to the potential for falsely elevated results. Performed By: #### H EPAC, GGT ####[place] [address]#### CBC, ADIFF, CMP, ANEU, GFR ####[place] Eemimjmp[address] [place], [place] [address] BUN/Creatinine Ratio 9 ratio Normal 7-27 [facility] ([place]) Comment on above: Performed By: #### H EPAC, GGT ####[place] [address]#### CBC, ADIFF, CMP, ANEU, GFR ####[place] Atrdmton[address] [place], [place] [address] Calcium [Mass/Vol] 8.5 mg/dL Normal 8.4-10.2 [facility] ([place] Comment on above: Performed By: #### H EPAC, GGT ####[place] [address]#### CBC, ADIFF, CMP, ANEU, GFR ####[facility] [place], [place] [address] Chloride [Moles/Vol] 103 mmol/L Normal 98-107 [facility] ([place]) Comment on above: Performed By: #### H EPAC, GGT ####[place] [address]#### CBC, ADIFF, CMP, ANEU, GFR ####[facility] [place], [place] [address] CO2 [Moles/Vol] 22 mmol/L Normal 22-29 [facility] ([place]) Comment on above: Performed By: #### H EPAC, GGT ####[place] [address]#### CBC, ADIFF, CMP, ANEU, GFR ####[place] Flrucfhk247 [place], [place] [address] Creatinine [Mass/Vol] 0.68 mg/dL Normal 0.55-1.02 [facility] ([place]) Comment on above: Performed By: #### H EPAC, GGT ####[place] [address]#### CBC, ADIFF, CMP, ANEU, GFR ####[place] Ugwrkuxh[address] [place], [place] [address] Electrolyte Balance 10.0 mEq/L Normal 4.0-15.0 [facility] ([place]) Comment on above: Performed By: #### H EPAC, GGT ####[place] [address]#### CBC, ADIFF, CMP, ANEU, GFR ####[facility] [place], [place] [address] Globulin 4.3 G/dL Normal [facility] ([place]) Comment on above: Performed By: #### H EPAC, GGT ####[place] [address]#### CBC, ADIFF, CMP, ANEU, GFR ####[place] Klryqdru[address] [place], [place] [address] Glucose [Mass/Vol] 95 mg/dL Normal 70-105 [facility] ([place] Comment on above: Performed By: #### H EPAC, GGT ####[place] [address]#### CBC, ADIFF, CMP, ANEU, GFR ####[place] Nrclexly[address] [place], [place] [address] Potassium [Moles/Vol] 4.0 mmol/L Normal 3.5-5.1 [facility] ([place]) Comment on above: Performed By: #### H EPAC, GGT ####[place] [address]#### CBC, ADIFF, CMP, ANEU, GFR ####[facility]832 [place], [place] [address] Sodium [Moles/Vol] 135 mmol/L Low 136-145 [facility] ([place] Comment on above: Performed By: #### H EPAC, GGT ####[place] [address]#### CBC, ADIFF, CMP, ANEU, GFR ####[facility] [place], [place] [address] Total Protein 6.4 G/dL Normal 6.4-8.2 [facility] ([place]) Comment on above: Performed By: #### H EPAC, GGT ####[place] [address]#### CBC, ADIFF, CMP, ANEU, GFR ####[facility] [place], [place] [address] Urea nitrogen [Mass/Vol] 6 mg/dL Low 7-18 [facility] ([place] Comment on above: Performed By: #### H EPAC, GGT ####[place] [address]#### CBC, ADIFF, CMP, ANEU, GFR ####[facility] [place], [place] [address] GGTon 01-05-2023 Gamma GT 35 U/L Normal 5-55 [facility] ([place]) Comment on above: Performed By: #### H EPAC, GGT ####[place] [address]#### CBC, ADIFF, CMP, ANEU, GFR ####[place] [address] [place], [place] [address] HEPACon 01-05-2023 Hep A IgM Ab Non-Reactive Normal Non-Reactive [facility] ([place]) Comment on above: Performed By: #### H EPAC, GGT ####[place] [address]#### CBC, ADIFF, CMP, ANEU, GFR ####[facility] [place], [place] [address] Hep A IgM Ab Int Normal [facility] ([place]) Comment on above: Result Comment: No s erological evidence of a current Hepatitis A infection.See Interp Performed By: #### H EPAC, GGT ####[place] [address]#### CBC, ADIFF, CMP, ANEU, GFR ####[facility] [place] [address] Hep B Core IgM Ab Non-Reactive Normal Non-Reactive [facility] ([place]) Comment on above: Performed By: #### H EPAC, GGT ####[place] [address]#### CBC, ADIFF, CMP, ANEU, GFR ####[facility] [place] [address] Hep B Core IgM Ab Int Normal [facility] ([place]) Comment on above: Result Comment: Samp les with a value < 0.80 Index are considered nonreactive (negative) for IgM antibodies to hepatitis B core antigen.See Interp Performed By: #### H EPAC, GGT ####[place] [address]#### CBC, ADIFF, CMP, ANEU, GFR ####[place] [address] [place] [address] Hep B Surf Ag Non-Reactive Normal Non-Reactive [facility] ([place]) Comment on above: Performed By: #### H EPAC, GGT ####[place] [address]#### CBC, ADIFF, CMP, ANEU, GFR ####[place] [address] [place] [address] Hep C Ab Non-Reactive Normal Non-Reactive [facility] ([place]) Comment on above: Performed By: #### H EPAC, GGT ####[place] [address]#### CBC, ADIFF, CMP, ANEU, GFR ####[facility] [place] [address] Hep C Ab Int Normal [facility] ([place]) Comment on above: Result Comment: Nonr eactive: Samples with a value < 0.80 are considered nonreactive (negative) for antibodies to HCV.A negative test result does not exclude the possibility of exposure to or infection with HCV. HCV antibodies may be undetectable in some stages of the infection and in some clinical conditions.See Interp Performed By: #### H EPAC, GGT ####[address] [place] [address]#### CBC, ADIFF, CMP, ANEU, GFR ####Sophia Lmxxtyev[address] [place], [place] [address] .GFRon 01-04-2023 GFR 133 ml/min/1.73sqm Normal [facility] ([place]) Comment on above: Result Comment: [...] Performed By: #### C MP, GFR ####Sophia Nwxlxwlp540 [place], [place] [address] GFR Non- 110 ml/min/1.73sqm Normal [facility] ([place]) Comment on above: Result Comment: [...] Performed By: #### C MP, GFR ####Sophia Kxwsijqa222 [place], [place] [address] CMPon 01-04-2023 Albumin Level 2.4 G/dL Low 3.5-5.0 [facility] ([place]) Comment on above: Performed By: #### C MP, GFR ####Sophia [address] [place], [place] [address] Albumin/Globulin [Mass ratio] 0.5 {ratio} Low 1.1-2.5 [facility] ([place]) Comment on above: Performed By: #### C MP, GFR ####Sophia [address] [place], [place] [address] ALP [Catalytic activity/Vol] 272 U/L High 40-135 [facility] ([place]) Comment on above: Performed By: #### C MP, GFR ####Soph[place] [address] [place], [place] [address] ALT [Catalytic activity/Vol] 192 U/L High 14-59 [facility] ([place]) Comment on above: Performed By: #### C MP, GFR ####Soph[place] [address] [place], [place] [address] AST [Catalytic activity/Vol] 74 U/L High 10-40 [facility] ([place]) Comment on above: Performed By: #### C MP, GFR ####Soph[place] [address] [place], [place] [address] Bili Total 0.5 mg/dL Normal 0.2-1.0 [facility] ([place]) Comment on above: Result Comment: Use of this assay is not recommended for patients undergoing treatment with eltrombopag due to the potential for falsely elevated results. Performed By: #### C MP, GFR ####Sophia Bhwtcjou[address] [place], [place] [address] BUN/Creatinine Ratio 9 ratio Normal 7-27 [facility] ([place]) Comment on above: Performed By: #### C MP, GFR ####Sophia Pdijxbiw077 [place], [place] [address] Calcium [Mass/Vol] 8.6 mg/dL Normal 8.4-10.2 [facility] ([place]) Comment on above: Performed By: #### C MP, GFR ####Sophia Jceoaoel936 [place], [place] [address] Chloride [Moles/Vol] 102 mmol/L Normal 98-107 [facility] ([place]) Comment on above: Performed By: #### C MP, GFR ####Sophia Eqmkpcvl307 [place], [place] [address] CO2 [Moles/Vol] 22 mmol/L Normal 22-29 [facility] ([place]) Comment on above: Performed By: #### C MP, GFR ####Soph[place] [address] [place], [place] [address] Creatinine [Mass/Vol] 0.67 mg/dL Normal 0.55-1.02 [facility] ([place]) Comment on above: Performed By: #### C MP, GFR ####S[place] [address] [place], [place] [address] Electrolyte Balance 19.0 mEq/L High 4.0-15.0 [facility] ([place]) Comment on above: Performed By: #### C MP, GFR ####Soph[place] [address] [place], [place] [address] Globulin 4.6 G/dL Normal [facility] ([place]) Comment on above: Performed By: #### C MP, GFR ####S[place] [address] [place], [place] [address] Glucose [Mass/Vol] 146 mg/dL High 70-105 [facility] ([place]) Comment on above: Performed By: #### C MP, GFR ####Soph[place] [address] [place], [place] [address] Potassium [Moles/Vol] 3.8 mmol/L Normal 3.5-5.1 [facility] ([place]) Comment on above: Performed By: #### C MP, GFR ####Sophia [address] [place], [place] [address] Sodium [Moles/Vol] 143 mmol/L Normal 136-145 [facility] ([place] Comment on above: Performed By: #### C MP, GFR ####Soph[place] [address] [place], [place] [address] Total Protein 7.0 G/dL Normal 6.4-8.2 [facility] ([place]) Comment on above: Performed By: #### C MP, GFR ####Sophia Sggsdawz729 [place], [place] [address] Urea nitrogen [Mass/Vol] 6 mg/dL Low 7-18 [facility] ([place]) Comment on above: Performed By: #### C MP, GFR ####Sophia Iublzvub[address] [place], [place] [address] RPCURon 01-04-2023 U Creatinine 259.6 mg/dL High 28.0-117.0 [facility] ([place]) Comment on above: Order Comment: obtai n sample via catheter Performed By: #### R PCUR ####Sophia Ykxdidra[address] [place], [place] [address] U Protein 29 mg/dL High 0-11 [facility] ([place]) Comment on above: Order Comment: obtai n sample via catheter Performed By: #### R PCUR ####Sophia [address] [place], [place] [address] U Ratio Prot/Creat 0.1 ratio Normal [facility] ([place] Comment on above: Order Comment: obtai n sample via catheter Result Comment: resu lt calculated by rule GL_UR_PROT_NOTCALC_OLD(U Protein/U Creatinine) Performed By: #### R PCUR ####Sophia Zfgyzcyz650 [place], [place] [address] URICon 01-04-2023 Uric Acid Lvl 3.5 mg/dL Normal 2.6-6.2 [facility] ([place]) Comment on above: Performed By: #### U ANISA ####Sophia Ngimzmct100 [place], [place] [address] US ABDOMEN LIMITEDon 023 US ABDOMEN LIMITED Normal [facility] ([place]) .GFRon 01-03-2023 GFR 123 ml/min/1.73sqm Normal [facility] ([place]) Comment on above: Result Comment: GFR Population [...] C MP, GFR, BILE, HFP ####Sophia [address]os[address] [place], [place] [address] GFR Non- 101 ml/min/1.73sqm Normal [facility] ([place]) Comment on above: Result Comment: GFR Population [...] C MP, GFR, BILE, HFP ####Sophia [address] [place], [place] [address] CMPon 01-03-2023 BUN/Creatinine Ratio 7 ratio Normal 7-27 [facility] ([place]) Comment on above: Performed By: #### C MP, GFR, BILE, HFP ####Sophia [address] [place], [place] [address] CMPOrdered By: SYSTEM SYSTEM on 01-03-2023 Calcium [Mass/Vol] 8.8 mg/dL Normal 8.4-10.2 AO ADM SS Comment on above: Performed By: #### C MP, GFR, BILE, HFP ####S[place] [address] [place], [place] [address] Chloride [Moles/Vol] 102 mmol/L Normal 98-107 AO A DM SS Comment on above: Performed By: #### C MP, GFR, BILE, HFP ####Sophia [address] [place], [place] [address] CO2 [Moles/Vol] 24 mmol/L Normal 22-29 AO ADM SS Comment on above: Performed By: #### C MP, GFR, BILE, HFP ####Sophia [address] [place], [place] [address] Creatinine [Mass/Vol] 0.72 mg/dL Normal 0.55-1.02 AO ADM SS Comment on above: Performed By: #### C MP, GFR, BILE, HFP ####Sophia [address] [place], [place] [address] Electrolyte Balance 12.0 mEq/L Normal 4.0-15.0 AO AD M SS Comment on above: Performed By: #### C MP, GFR, BILE, HFP ####Sophia [address] [place], [place] [address] Glucose [Mass/Vol] 104 mg/dL Normal 70-105 AO ADM SS Comment on above: Performed By: #### C MP, GFR, BILE, HFP ####Sophia [address] [place], [place] [address] Potassium [Moles/Vol] 3.9 mmol/L Normal 3.5-5.1 AO ADM SS Comment on above: Performed By: #### C MP, GFR, BILE, HFP ####S[place]ia [address] [place], [place] [address] Sodium [Moles/Vol] 138 mmol/L Normal 136-145 AO ADM SS Comment on above: Performed By: #### C MP, GFR, BILE, HFP ####Soph[place] [address] [place], [place] [address] Urea nitrogen [Mass/Vol] 5 mg/dL Low 7-18 AO ADM SS Comment on above: Performed By: #### C MP, GFR, BILE, HFP ####S[place] [address] [place], [place] [address] HFPon 01-03-2023 Bili Indirect 0.3 mg/dL Normal [facility] ([place]) Comment on above: Performed By: #### C MP, GFR, BILE, HFP ####Sophia Rjpyqofn[address] [place], [place] [address] Albumin Level 2.4 G/dL Low 3.5-5.0 [facility] ([place]) Comment on above: Performed By: #### C MP, GFR, BILE, HFP ####[address] [place], [place] [address] ALT [Catalytic activity/Vol] 200 U/L High 14-59 [facility] ([place]) Comment on above: Performed By: #### C MP, GFR, BILE, HFP ####[address] [place], [place] [address] AST [Catalytic activity/Vol] 82 U/L High 10-40 [facility] ([place]) Comment on above: Performed By: #### C MP, GFR, BILE, HFP ####[address] [place], [place] [address] Bili Direct 0.3 mg/dL High 0.0-0.2 [facility] ([place]) Comment on above: Result Comment: Use of this assay is not recommended for patients undergoing treatment with eltrombopag due to the potential for falsely elevated results. Performed By: #### C MP, GFR, BILE, HFP ####[address] [place], [place] [address] Bili Total 0.6 mg/dL Normal 0.2-1.0 [facility] ([place]) Comment on above: Result Comment: Use of this assay is not recommended for patients undergoing treatment with eltrombopag due to the potential for falsely elevated results. Performed By: #### C MP, GFR, BILE, HFP ####Sophia [address] [place], [place] [address] Total Protein 7.5 G/dL Normal 6.4-8.2 [facility] ([place]) Comment on above: Performed By: #### C MP, GFR, BILE, HFP ####Sophia [address] [place], [place] [address] HFPOrdered By: SYSTEM SYSTEM on 01-03-2023 Albumin/Globulin [Mass ratio] 0.5 {ratio} Low 1.1-2.5 AO ADM SS Comment on above: Performed By: #### C MP, GFR, BILE, HFP ####[address]ia [address] [place], [place] [address] ALP [Catalytic activity/Vol] 272 U/L High 40-135 AO ADM SS Comment on above: Performed By: #### C MP, GFR, BILE, HFP ####[address] [place], [place] [address] Globulin 5.1 G/dL Normal AO ADM SS Comment on above: Performed By: #### C MP, GFR, BILE, HFP ####[address] [place], [place] [address] LABORATORYOrdered By: SYSTEM SYSTEM on 01-03-2023 GFR/1.73 [...] AO ADM SS CURon 12-31-2022 CUR Normal [facility] ([place]) .Urinalysis Microscopic (AO) on 12-28-2022 UA Bacteria 2+ /hpf Abnormal [facility] ([place]) Comment on above: Performed By: #### U A, UAMICAO ####[address] [place], [place] [address] UA RBC None Seen Normal None Seen [facility] ([place]) Comment on above: Performed By: #### U A, UAMICAO ####[address] [place], [place] [address] UA Squam Epithelial 15-25 Abnormal None Seen [facility] ([place]) Comment on above: Performed By: #### U A, UAMICAO ####[address] [place], [place] [address] UA WBC 5-10 Abnormal None Seen [facility] ([place] Comment on above: Performed By: #### U A, UAMICAO ####[address] [place], [place] [address] FFNon 12-28-2022 Fibronectin Negative Normal Negative [facility] ([place]) Comment on above: Performed By: #### F FN ####[facility] [place] [address] UAon 12-28-2022 Color (U) Yellow Normal [facility] ([place]) Comment on above: Performed By: #### U A, UAMICAO ####[address] [place], [place] [address] Glucose (U) [Mass/Vol] Negative Normal Negative [facility] ([place] Comment on above: Performed By: #### U A, UAMICAO ####[address] [place], [place] [address] Ketones Ql (U) 15 mg/dL Abnormal Negative [facility] ([place]) Comment on above: Performed By: #### U A, UAMICAO ####[address] [place], [place] [address] UA Appear Slightly Cloudy Abnormal Clear [facility] ([place]) Comment on above: Performed By: #### U A, UAMICAO ####[address] [place], [place] [address] UA Bili Small Abnormal Negative [facility] ([place]) Comment on above: Performed By: #### U A, UAMICAO ####[address] [place], [place] [address] UA Blood Negative Normal Negative [facility] ([place] Comment on above: Performed By: #### U A, UAMICAO ####[address] [place], [place] [address] UA Leuk Est Small Abnormal Negative [facility] ([place]) Comment on above: Performed By: #### U A, UAMICAO ####[address] [place], [place] [address] UA Nitrite Negative Normal Negative [facility] ([place]) Comment on above: Performed By: #### U A, UAMICAO ####[address] [place], [place] [address] UA pH 6.0 Normal 5.0 - 8.0 [facility] ([place]) Comment on above: Performed By: #### U A, UAMICAO ####[address] [place], [place] [address] UA Protein 30 mg/dL Normal Negative [facility] ([place]) Comment on above: Performed By: #### U A UAMICAO ####[address] [place], [place] [address] UA Spec Grav 1.025 Normal 1.015-1.025 [facility] ([place]) Comment on above: Performed By: #### U Mario UAMICAO ####[address] [place], [place] [address] UA Specimen Type Clean Catch Normal [facility] ([place]) Comment on above: Performed By: #### U A UAMICAO ####[address] [place], [place] [address] UA Urobilinogen >=8.0 Abnormal 0.2-1.0 [facility] ([place]) Comment on above: Performed By: #### U Mario UAMICAO ####[address] [place], [place] [address] RPRon 12-17-2022 Reagin Ab RPR Ql (S) Non-Reactive Normal Non-Reactive [facility] ([place]) Comment on above: Result Comment: The RPR [...] By: #### A WAYNE, CBC, GLU1P, ADIFF ####[place] [address]#### RPR ####[address] [address] .Auto Diffon 12-16-2022 Basophil, Absolute 0.0 10 3/mcL Normal 0.0-0.2 [facility] ([place]) Comment on above: Performed By: #### A WAYNE, CBC, GLU1P, ADIFF ####[place] [address]#### RPR ####[address] [address] Basophils/100 WBC (Bld) 0.4 % Normal 0.0-2.5 [facility] ([place]) Comment on above: Performed By: #### A WAYNE, CBC, GLU1P, ADIFF ####[place] [address]#### RPR ####[address] [address] Eosinophil, Absolute 0.0 10 3/mcL Normal 0.0-0.4 [facility] ([place]) Comment on above: Performed By: #### A WAYNE, CBC, GLU1P, ADIFF ####[place] [address]#### RPR ####[address] [address] Eosinophils/100 WBC (Bld) 0.4 % Normal 0.0-7.0 [facility] ([place]) Comment on above: Performed By: #### A WAYNE, CBC, GLU1P, ADIFF ####[place] [address]#### RPR ####[address] [address] Lymphocyte, Absolute 1.8 10 3/mcL Normal 0.8-3.9 [facility] ([place]) Comment on above: Performed By: #### A WAYNE, CBC, GLU1P, ADIFF ####[place] [address]#### RPR ####[address] [address] Lymphocytes/100 WBC (Bld) 19.3 % Normal 10.0-50.0 [facility] ([place]) Comment on above: Performed By: #### A WAYNE, CBC, GLU1P, ADIFF ####[place] [address]#### RPR ####[address] [address] Monocyte, Absolute 0.5 10 3/mcL Normal 0.2-1.0 [facility] ([place]) Comment on above: Performed By: #### A WAYNE, CBC, GLU1P, ADIFF ####[place] [address]#### RPR ####[address] [address] Monocytes/100 WBC (Bld) 5.2 % Normal 1.7-13.0 [facility] ([place]) Comment on above: Performed By: #### A WAYNE, CBC, GLU1P, ADIFF ####[place] [address]#### RPR ####[address] [address] Neutrophils/100 WBC (Bld) 74.7 % Normal 37.0-80.0 [facility] ([place]) Comment on above: Performed By: #### A WAYNE, CBC, GLU1P, ADIFF ####[place] [address]#### RPR ####[address] [address] .GFRon 12-16-2022 GFR 138 ml/min/1.73sqm Normal [facility] ([place]) Comment on above: Result Comment: GFR Population [...] By: #### G FR, CMP ####[address] [place], [place] [address] GFR Non- 114 ml/min/1.73sqm Normal [facility] ([place]) Comment on above: Result Comment: GFR Population [...] By: #### G FR, CMP ####[address] [place], [place] [address] .NEUABSon 12-16-2022 Neutrophil, Absolute 7.1 10 3/mcL High 2.9-6.2 [facility] ([place]) Comment on above: Performed By: #### A WAYNE, CBC, GLU1P, ADIFF ####[address] [place], [place] [address]#### RPR ####[place] [address] CBCon 12-16-2022 Erythrocyte distribution width (RBC) [Ratio] 15.3 % High 11.5-14.5 [facility] ([place]) Comment on above: Performed By: #### A WAYNE, CBC, GLU1P, ADIFF ####[place] [address]#### RPR ####[place] [address] Hematocrit (Bld) [Volume fraction] 34.4 % Low 37.0-47.0 [facility] ([place]) Comment on above: Performed By: #### A WAYNE, CBC, GLU1P, ADIFF ####[place] [address]#### RPR ####[place] [address] Hgb 11.4 G/dL Low 12.0-16.0 [facility] ([place]) Comment on above: Performed By: #### A WAYNE, CBC, GLU1P, ADIFF ####[place] [address]#### RPR ####[place] [address] MCH (RBC) [Entitic mass] 25.0 pg Low 27.0-31.2 [facility] ([place]) Comment on above: Performed By: #### A WAYNE, CBC, GLU1P, ADIFF ####[place] [address]#### RPR ####[place] [address] MCHC 33.0 G/dL Normal 33.0-37.0 [facility] ([place]) Comment on above: Performed By: #### A WAYNE, CBC, GLU1P, ADIFF ####[place] [address]#### RPR ####[place] [address] MCV (RBC) [Entitic vol] 75.8 fL Low 80.0-94.0 [facility] ([place]) Comment on above: Performed By: #### A WAYNE, CBC, GLU1P, ADIFF ####[place] [address]#### RPR ####[place] [address] Platelet 142 10 3/mcL Normal 130-400 [facility] ([place]) Comment on above: Performed By: #### A WAYNE, CBC, GLU1P, ADIFF ####[place] [address]#### RPR ####[place] [address] Platelet mean volume (Bld) [Entitic vol] 9.1 fL Normal 7.4-10.4 [facility] ([place]) Comment on above: Performed By: #### A WAYNE, CBC, GLU1P, ADIFF ####[place] [address]#### RPR ####[place] [address] RBC 4.54 10 6/mcL Normal 4.20-5.40 [facility] ([place]) Comment on above: Performed By: #### A WAYNE, CBC, GLU1P, ADIFF ####[place] [address]#### RPR ####[place] [address] WBC 9.6 10 3/mcL Normal 4.6-10.8 [facility] ([place]) Comment on above: Performed By: #### A WAYNE, CBC, GLU1P, ADIFF ####[place] [address]#### RPR ####[place] [address] CMPon 12-16-2022 Albumin Level 2.6 G/dL Low 3.5-5.0 [facility] ([place]) Comment on above: Performed By: #### G FR, CMP ####[facility] [place] [id number] Albumin/Globulin [Mass ratio] 0.6 {ratio} Low 1.1-2.5 [facility] ([place]) Comment on above: Performed By: #### Rio ALBARRAN, CMP ####[address] [place], [place] [address] ALP [Catalytic activity/Vol] 197 U/L High 40-135 [facility] ([place]) Comment on above: Performed By: #### Rio ALBARRAN, CMP ####[address] [place], [place] [address] ALT [Catalytic activity/Vol] 21 U/L Normal 14-59 [facility] ([place]) Comment on above: Performed By: #### Rio ALBARRAN, CMP ####[address] [place], [place] [address] AST [Catalytic activity/Vol] 16 U/L Normal 10-40 [facility] ([place]) Comment on above: Performed By: #### Rio ALBARRAN, CMP ####[address] [place], [place] [address] Bili Total 0.3 mg/dL Normal 0.2-1.0 [facility] ([place]) Comment on above: Result Comment: Use of this assay is not recommended for patients undergoing treatment with eltrombopag due to the potential for falsely elevated results. Performed By: #### Rio ALBARRAN, CMP ####[address] [place], [place] [address] BUN/Creatinine Ratio 6 ratio Low 7-27 [facility] ([place]) Comment on above: Performed By: #### Rio ALBARRAN, CMP ####[address] [place], [place] [address] Calcium [Mass/Vol] 8.3 mg/dL Low 8.4-10.2 [facility] ([place]) Comment on above: Performed By: #### Rio ALBARRAN, CMP ####[address] [place], [place] [address] Chloride [Moles/Vol] 101 mmol/L Normal 98-107 [facility] ([place]) Comment on above: Performed By: #### Rio ALBARRAN, CMP ####[address] [place], [place] [address] CO2 [Moles/Vol] 26 mmol/L Normal 22-29 [facility] ([place]) Comment on above: Performed By: #### G , CMP ####[address] [place], [place] [address] Creatinine [Mass/Vol] 0.65 mg/dL Normal 0.55-1.02 [facility] ([place]) Comment on above: Performed By: #### G FR, CMP ####[address] [place], [place] [address] Electrolyte Balance 11.0 mEq/L Normal 4.0-15.0 [facility] ([place]) Comment on above: Performed By: #### G FR, CMP ####[address] [place], [place] [address] Globulin 4.3 G/dL Normal [facility] ([place]) Comment on above: Performed By: #### Rio ALBARRAN, CMP ####[address] [place], [place] [address] Glucose [Mass/Vol] 166 mg/dL High 70-105 [facility] ([place]) Comment on above: Performed By: #### G , CMP ####[address] [place], [place] [address] Potassium [Moles/Vol] 3.9 mmol/L Normal 3.5-5.1 [facility] ([place]) Comment on above: Performed By: #### G FR, CMP ####[address] [place], [place] [address] Sodium [Moles/Vol] 138 mmol/L Normal 136-145 [facility] ([place]) Comment on above: Performed By: #### G FR, CMP ####[address] [place], [place] [address] Total Protein 6.9 G/dL Normal 6.4-8.2 [facility] ([place]) Comment on above: Performed By: #### G FR, CMP ####[address] [place], [place] [address] Urea nitrogen [Mass/Vol] 4 mg/dL Low 7-18 [facility] ([place]) Comment on above: Performed By: #### G FR, CMP ####[facility] [place], [place] [address] [id number] 12-16-2022 Glucose [Mass/Vol] 163 mg/dL High 70-140 [facility] ([place]) Comment on above: Performed By: #### A WAYNE, CBC, GLU1P, ADIFF ####[facility] [place], [place] [address]#### RPR ####[place] [address] CURon 11-14-2022 CUR Normal [facility] ([place]) FFNon 11-14-2022 Fibronectin Negative Normal Negative [facility] ([place]) Comment on above: Performed By: #### F FN ####[place] [address] CTPCRon 11-13-2022 C. trachomatis Interp Normal See CT Interp N [facility] ([place]) Comment on above: Result Comment: C. t rachomatis DNA not detected. Specimen is presumptive negative forC. trachomatis.A negative result does not preclude C. trachomatis infection becauseresults depend on adequate specimen collection, absence of inhibitors,and sufficient DNA to be detected.See CT Interp N Performed By: #### N GPCR1, CTPCR ####[place] [address] C.trachomatis PCR Negative Normal Negative [facility] ([place]) Comment on above: Result Comment: Scar hernandezar (PCR) assay performed on the [employer] 4800 system. Performed By: #### N GPCR1, CTPCR ####[place] [address] Chlam Source Vaginal Normal [facility] ([place]) Comment on above: Performed By: #### N GPCR1, CTPCR ####[place] [address] [id number] 11-13-2022 GC PCR Source Vaginal Normal [facility] ([place]) Comment on above: Performed By: #### N GPCR1, CTPCR ####[place] [address] N. gonorrhoeae (PCR) Negative Normal Negative [facility] ([place]) Comment on above: Result Comment: Scar cular (PCR) assay performed on the [employer] 4800 System. Performed By: #### N GPCR1, CTPCR ####[facility] [place] [address] N. gonorrhoeae Interp Normal See NG Interp N [facility] ([place]) Comment on above: Result Comment: N. g onorrhoeae DNA not detected. Specimen is presumptive negative forN. gonorrhoeae. A negative result does not preclude Neisseria gonorrhoeaeinfection because results depend on adequate specimen collection, absenceof inhibitors, and sufficient DNA to be detected.See NG Interp N Performed By: #### N GPCR1, CTPCR ####[facility] [place] [address] VAGDNAon 11-13-2022 VAGDNA Normal [facility] ([place]) LABORATORYOrdered By: Suman Rodríguez on 11-12-2022 C. [...] (AO) on 11-11-2022 UA Bacteria Trace Abnormal [facility] ([place]) Comment on above: Performed By: #### U A, UAMICAO ####[address] [place], [place] [address] UA RBC 0-5 Abnormal None Seen [facility] ([place] Comment on above: Performed By: #### U A, UAMICAO ####Sophia [address] [place], [place] [address] UA Squam Epithelial LOADED Abnormal None Seen [facility] ([place]) Comment on above: Performed By: #### U A, UAMICAO ####S[address]ia [address] [place], [place] [address] UA WBC 0-5 Abnormal None Seen [facility] ([place] Comment on above: Performed By: #### U A, UAMICAO ####[address] [place], [place] [address] LABORATORYOrdered By: Daren Albarran on 11-11-2022 Appearance [...] SS UAon 11-11-2022 Color (U) Yellow Normal [facility] ([place]) Comment on above: Performed By: #### U A, UAMICAO ####[address] [place], [place] [address] Glucose (U) [Mass/Vol] Negative Normal Negative [facility] ([place]) Comment on above: Performed By: #### U A, UAMICAO ####[address] [place], [place] [address] Ketones Ql (U) Negative Normal Negative [facility] ([place]) Comment on above: Performed By: #### U A, UAMICAO ####[address] [place], [place] [address] UA Appear Slightly Cloudy Abnormal Clear [facility] ([place]) Comment on above: Performed By: #### U A, UAMICAO ####Sophia [address] [place], [place] [address] UA Blood Negative Normal Negative [facility] ([place] Comment on above: Performed By: #### U A, UAMICAO ####[address] [place], [place] [address] UA Leuk Est Negative Normal Negative [facility] ([place]) Comment on above: Performed By: #### U A, UAMICAO ####[address] [place], [place] [address] UA Nitrite Negative Normal Negative [facility] ([place]) Comment on above: Performed By: #### U A, UAMICAO ####[address] [place], [place] [address] UA pH 6.5 Normal 5.0 - 8.0 [facility] ([place]) Comment on above: Performed By: #### U A, UAMICAO ####[address] [place], [place] [address] UA Protein Negative Normal Negative [facility] ([place]) Comment on above: Performed By: #### U A UAMICAO ####[address] [place], [place] [address] UA Spec Grav 1.020 Normal 1.015-1.025 [facility] ([place]) Comment on above: Performed By: #### U A UAMICAO ####[address] [place], [place] [address] UA Specimen Type Clean Catch Normal [facility] ([place]) Comment on above: Performed By: #### U A UAMICAO ####[address] [place], [place] [address] UA Urobilinogen 0.2 E.U./dL Normal 0.2-1.0 [facility] ([place]) Comment on above: Performed By: #### U A UAMICAO ####[address] [place], [place] [address] Urobilinogen (U) [Mass/Vol] Negative Normal Negative [facility] ([place]) Comment on above: Performed By: #### U A, UAMICAO ####[address] [place], [place] [address] VAGDNAon 11-11-2022 VAGDNA Normal [facility] ([place]) No Panel InformationOrdered By: Tian Apodaca on 11-10-2022 Affirm Pathogens DNA Direct Probe Gardnerella vaginalis DNA Probe Negative Trichomonas vaginalis DNA Probe Negative Renuka species DNA Probe Negative [facility] Amorphous sediment detection in urine sediment by light microscopyOrdered By: Karina Bedoya on 11-09-2022 Amorphous sediment LM Ql (Urine sed) 2+ [facility] Basophil percentageOrdered B y: Karina Bedoya on 11-09-2022 Basophil percentage 10-25 SEEN /hpf 0-5 [facility] LDH [Catalytic activity/Vol] 159 U/L 84-246 [facility] WBC (Bld) [#/Vol] 9.8 10*3/uL 4.4-11.0 [facility] Bilirubin Test strip Ql (U)O rdered By: Karina Bedoya on 11-09-2022 Bilirubin Ql (U) Negative Negative [facility] Blood erythrocytes count (nu mber/volume)Ordered By: Karina Bedoya on 11-09-2022 RBC (Bld) [#/Vol] 4.43 10*6/uL 4.2-5.4 [facility] Blood hemoglobin measurement (mass/volume)Ordered By: Karina Bedoya on 11-09-2022 Hemoglobin (Bld) [Mass/Vol] 11.1 g/dL 12.0-15.0 [facility] Blood platelet mean volumeOr dered By: Karina Bedoya on 11-09-2022 Platelet mean volume (Bld) [Entitic vol] 12.6 fL 6.2-12.0 [facility] Culture, urineOrdered By: Marco Bedoya on 11-09-2022 Bacteria identified Cx Nom (U) Positive [facility] Bacteria identified Cx Nom (U) Positive [facility] Determination of erythrocyte mean corpuscular volume (MCV)Ordered By: Karina Bedoya on 11-09-2022 MCV (RBC) [Entitic vol] 78.6 fL 81-99 [facility] Hematocrit Auto (Bld) [Volum e fraction]Ordered By: Karina Bedoya on 11-09-2022 Hematocrit (Bld) [Volume fraction] 34.8 % 37-47 [facility] Ketones Test strip Ql (U)Ord ered By: Karina Bedoya on 11-09-2022 Ketones Ql (U) Negative Negative [facility] Laboratory - Chemistry and C hemistry - challengeOrdered By: Karina Bedoya on 11-09-2022 ALT [Catalytic activity/Vol] 25 U/L 13-56 [facility] Laboratory - Hematology and Cell countsOrdered By: Karina Bedoya on 11-09-2022 Erythrocyte distribution width (RBC) [Entitic vol] 42.4 fL 35.1-43.9 [facility] Erythrocyte distribution width (RBC) [Ratio] 14.7 % 11.6-14.6 [facility] MCH (RBC) [Entitic mass] 25.1 pg 27.0-32.0 [facility] MCHC Auto (RBC) [Mass/Vol]Or dered By: Karina Bedoya on 11-09-2022 MCHC (RBC) [Mass/Vol] 31.9 g/dL 32-36 [facility] Mucus LM Ql (Urine sed)Order ed By: Karina Bedoya on 11-09-2022 Mucus Ql (Urine sed) 1+ /hpf [facility] Nitrite Test strip Ql (U)Ord ered By: Karina Bedoya on 11-09-2022 Nitrite Ql (U) Negative Negative [facility] No Panel InformationOrdered By: Karina Bedoya on 11-09-2022 Estimated Creatinine Clearance Calc 118.73 ml/min [facility] Estimated GFR (MDRD) Amer 155 mL/min >60 [facility] Comment on above: GFR Calc Estimated GFR (MDRD) Non-Af Amer 129 mL/min >60 [facility] Comment on above: Non- GFR Calc Vaginal Amniotic Fluid Detection Negative Negative [facility] Comment on above: Amniotic fluid not p resent indicates No Rupture of FetalMembranes at time of specimen collection. Platelets bldOrdered By: Makeda Bedoya on 11-09-2022 Platelets (Bld) [#/Vol] 171 10*3/uL 150-450 [facility] Protein Test strip Ql (U)Ord ered By: Karina Bedoya on 11-09-2022 Protein Ql (U) 15 mg/dl Negative [facility] Serum or plasma creatinine m easurement (mass/volume)Ordered By: Karina Bedoya on 11-09-2022 Creatinine [Mass/Vol] 0.62 mg/dL 0.55-1.02 [facility] Comment on above: The validity of the calculated GFR & GFRAA in patients over 70 years has not been determined. Clinical correlation is essential. Serum or plasma uric acid me asurement (mass/volume)Ordered By: Karina Bedoya on 11-09-2022 Urate [Mass/Vol] 4.9 mg/dL 2.6-6.0 [facility] Comment on above: The drugs N-Acetylcy steine and Metamizole may falsely depress this assay. Squamous epithelial cells de tection in urine sediment by light microscopyOrdered By: Karina Bedoya on 11-09-2022 Epithelial cells.squamous LM Ql (Urine sed) 5-10 SEEN /hpf 5-10 [facility] Thin prep Papanicolaou smear with manual screeningOrdered By: Karina Bedoya on 11-09-2022 Thin prep Papanicolaou smear with manual screening 16 U/L 15-37 [facility] Urine blood detectionOrdered By: Karina Bedoya on 11-09-2022 RBC Ql (U) Negative Negative [facility] RBC Ql (U) 0 SEEN /hpf 0-5 [facility] Urine clarityOrdered By: Makeda Bedoya on 11-09-2022 Clarity (U) Sl. Cloudy Clear [facility] Urine color determinationOrd ered By: Karina Bedoya on 11-09-2022 Color (U) Yellow Yellow [facility] Urine creatinine measurement (mass/volume)Ordered By: Karina Bedoya on 11-09-2022 Creatinine (U) [Mass/Vol] 167.00 mg/dL NO RANGE EST. [facility] Urine glucose detectionOrder ed By: Karina Bedoya on 11-09-2022 Glucose Ql (U) Normal mg/dl Normal [facility] Urine leukocyte esterase det ection by dipstickOrdered By: Karina Bedoya on 11-09-2022 Leukocyte esterase Test strip Ql (U) 100 /ul Negative [facility] Urine pHOrdered By: Karina Bedoya on 11-09-2022 pH (U) 8.0 [pH] 5.0 - 8.0 [facility] Urine protein measurement (m ass/volume)Ordered By: Karina Bedoya on 11-09-2022 Protein (U) [Mass/Vol] 32.9 mg/dL 0.0-11.8 [facility] Urine protein/creatinine mas s ratioOrdered By: Karina Bedoya on 11-09-2022 Protein/Creatinine (U) [Mass ratio] 197 mg/g CRE 0-200 [facility] Urine sediment bacteria coun t by microscopy (number/high power field)Ordered By: Karina Billeric on 11-09-2022 Bacteria LM.HPF (Urine sed) [#/Area] 3 /[HPF] None Seen [facility] Urine specific gravity measu rementOrdered By: Karina Bedoya on 11-09-2022 Specific gravity (U) [Rel density] 1.015 1.002-1.030 [facility] Urobilinogen Auto test strip Ql (U)Ordered By: Karina Billeric on 11-09-2022 Urobilinogen Ql (U) 1 mg/dl Normal [facility] .Auto Diffon 10-29-2022 Basophil, Absolute 0.1 10 3/mcL Normal 0.0-0.2 [facility] ([place]) Comment on above: Performed By: #### C MP, ADIFF, CBC, URIC, ANEU, GFR ####[place] [address]#### GGT ####[address] [address] Basophils/100 WBC (Bld) 0.7 % Normal 0.0-2.5 [facility] ([place]) Comment on above: Performed By: #### C MP, ADIFF, CBC, URIC, ANEU, GFR ####[place] [address]#### GGT ####[address] [address] Eosinophil, Absolute 0.1 10 3/mcL Normal 0.0-0.4 [facility] ([place]) Comment on above: Performed By: #### C MP, ADIFF, CBC, URIC, ANEU, GFR ####[place] [address]#### GGT ####[address] [address] Eosinophils/100 WBC (Bld) 0.5 % Normal 0.0-7.0 [facility] ([place]) Comment on above: Performed By: #### C MP, ADIFF, CBC, URIC, ANEU, GFR ####[place] [address]#### GGT ####[address] [address] Lymphocyte, Absolute 2.3 10 3/mcL Normal 0.8-3.9 [facility] ([place]) Comment on above: Performed By: #### C MP, ADIFF, CBC, URIC, ANEU, GFR ####[place] [address]#### GGT ####[address] [address] Lymphocytes/100 WBC (Bld) 23.1 % Normal 10.0-50.0 [facility] ([place]) Comment on above: Performed By: #### C MP, ADIFF, CBC, URIC, ANEU, GFR ####[place] [address]#### GGT ####[address] [address] Monocyte, Absolute 0.7 10 3/mcL Normal 0.2-1.0 [facility] ([place]) Comment on above: Performed By: #### C MP, ADIFF, CBC, URIC, ANEU, GFR ####[place] [address]#### GGT ####[address] [address] Monocytes/100 WBC (Bld) 7.0 % Normal 1.7-13.0 [facility] ([place]) Comment on above: Performed By: #### C MP, ADIFF, CBC, URIC, ANEU, GFR ####[place] [address]#### GGT ####[address] [address] Neutrophils/100 WBC (Bld) 68.7 % Normal 37.0-80.0 [facility] ([place]) Comment on above: Performed By: #### C MP, ADIFF, CBC, URIC, ANEU, GFR ####[address] [place], [place] [address]#### GGT ####[address] [address] .GFRon 10-29-2022 GFR 135 ml/min/1.73sqm Normal [facility] ([place]) Comment on above: Result Comment: GFR Population [...] MP, ADIFF, CBC, URIC, ANEU, GFR ####S[address]ia [address] [place], [place] [address]#### GGT ####[address] [address] GFR Non- 111 ml/min/1.73sqm Normal [facility] ([place]) Comment on above: Result Comment: GFR Population [...] C MP, ADIFF, CBC, URIC, ANEU, GFR ####[place] [address]#### GGT ####[place] [address] .NEUABSon 10-29-2022 Neutrophil, Absolute 6.9 10 3/mcL High 2.9-6.2 [facility] ([place]) Comment on above: Performed By: #### C MP, ADIFF, CBC, URIC, ANEU, GFR ####[place] [address]#### GGT ####[place] [address] CBCon 10-29-2022 Erythrocyte distribution width (RBC) [Ratio] 15.4 % High 11.5-14.5 [facility] ([place]) Comment on above: Performed By: #### C MP, ADIFF, CBC, URIC, ANEU, GFR ####[place] [address]#### GGT ####[place] [address] Hematocrit (Bld) [Volume fraction] 34.8 % Low 37.0-47.0 [facility] ([place]) Comment on above: Performed By: #### C MP, ADIFF, CBC, URIC, ANEU, GFR ####[place] [address]#### GGT ####[place] [address] Hgb 11.7 G/dL Low 12.0-16.0 [facility] ([place]) Comment on above: Performed By: #### C MP, ADIFF, CBC, URIC, ANEU, GFR ####[place] [address]#### GGT ####[place] [address] MCH (RBC) [Entitic mass] 24.9 pg Low 27.0-31.2 [facility] ([place]) Comment on above: Performed By: #### C MP, ADIFF, CBC, URIC, ANEU, GFR ####[place] [address]#### GGT ####[place] [address] MCHC 33.5 G/dL Normal 33.0-37.0 [facility] ([place]) Comment on above: Performed By: #### C MP, ADIFF, CBC, URIC, ANEU, GFR ####[place] [address]#### GGT ####[place] [address] MCV (RBC) [Entitic vol] 74.3 fL Low 80.0-94.0 [facility] ([place]) Comment on above: Performed By: #### C MP, ADIFF, CBC, URIC, ANEU, GFR ####[place] [address]#### GGT ####[place] [address] Platelet 149 10 3/mcL Normal 130-400 [facility] ([place]) Comment on above: Performed By: #### C MP, ADIFF, CBC, URIC, ANEU, GFR ####[place] [address]#### GGT ####[place] [address] Platelet mean volume (Bld) [Entitic vol] 9.6 fL Normal 7.4-10.4 [facility] ([place]) Comment on above: Performed By: #### C MP, ADIFF, CBC, URIC, ANEU, GFR ####[place] [address]#### GGT ####[place] [address] RBC 4.68 10 6/mcL Normal 4.20-5.40 [facility] ([place]) Comment on above: Performed By: #### C MP, ADIFF, CBC, URIC, ANEU, GFR ####[place] [address]#### GGT ####[place] [address] WBC 10.0 10 3/mcL Normal 4.6-10.8 [facility] ([place]) Comment on above: Performed By: #### C MP, ADIFF, CBC, URIC, ANEU, GFR ####[place] [address]#### GGT ####[place] [address] CMPon 10-29-2022 Albumin Level 2.8 G/dL Low 3.5-5.0 [facility] ([place]) Comment on above: Performed By: #### C MP, ADIFF, CBC, URIC, ANEU, GFR ####[place] [address]#### GGT ####[place] [address] Albumin/Globulin [Mass ratio] 0.7 {ratio} Low 1.1-2.5 [facility] ([place]) Comment on above: Performed By: #### C MP, ADIFF, CBC, URIC, ANEU, GFR ####[place] [address]#### GGT ####[place] [address] ALP [Catalytic activity/Vol] 147 U/L High 40-135 [facility] ([place]) Comment on above: Performed By: #### C MP, ADIFF, CBC, URIC, ANEU, GFR ####[place] [address]#### GGT ####[place] [address] ALT [Catalytic activity/Vol] 27 U/L Normal 14-59 [facility] ([place]) Comment on above: Performed By: #### C MP, ADIFF, CBC, URIC, ANEU, GFR ####[place] [address]#### GGT ####[place] [address] AST [Catalytic activity/Vol] 17 U/L Normal 10-40 [facility] ([place]) Comment on above: Performed By: #### C MP, ADIFF, CBC, URIC, ANEU, GFR ####[place] [address]#### GGT ####[place] [address] Bili Total 0.3 mg/dL Normal 0.2-1.0 [facility] ([place]) Comment on above: Result Comment: Use of this assay is not recommended for patients undergoing treatment with eltrombopag due to the potential for falsely elevated results. Performed By: #### C MP, ADIFF, CBC, URIC, ANEU, GFR ####[place] [address]#### GGT ####[place] [address] BUN/Creatinine Ratio 7 ratio Normal 7-27 [facility] ([place]) Comment on above: Performed By: #### C MP, ADIFF, CBC, URIC, ANEU, GFR ####[place] [address]#### GGT ####[place] [address] Calcium [Mass/Vol] 8.6 mg/dL Normal 8.4-10.2 [facility] ([place]) Comment on above: Performed By: #### C MP, ADIFF, CBC, URIC, ANEU, GFR ####[place] [address]#### GGT ####[place] [address] Chloride [Moles/Vol] 104 mmol/L Normal 98-107 [facility] ([place]) Comment on above: Performed By: #### C MP, ADIFF, CBC, URIC, ANEU, GFR ####[place] [address]#### GGT ####[address] [address] CO2 [Moles/Vol] 24 mmol/L Normal 22-29 [facility] ([place]) Comment on above: Performed By: #### C MP, ADIFF, CBC, URIC, ANEU, GFR ####[place] [address]#### GGT ####[address] [address] Creatinine [Mass/Vol] 0.67 mg/dL Normal 0.55-1.02 [facility] ([place]) Comment on above: Performed By: #### C MP, ADIFF, CBC, URIC, ANEU, GFR ####[place] [address]#### GGT ####[place] [address] Electrolyte Balance 12.0 mEq/L Normal 4.0-15.0 [facility] ([place]) Comment on above: Performed By: #### C MP, ADIFF, CBC, URIC, ANEU, GFR ####[place] [address]#### GGT ####[place] [address] Globulin 4.3 G/dL Normal [facility] ([place]) Comment on above: Performed By: #### C MP, ADIFF, CBC, URIC, ANEU, GFR ####[place] [address]#### GGT ####[address] [address] Glucose [Mass/Vol] 86 mg/dL Normal 70-105 [facility] ([place]) Comment on above: Performed By: #### C MP, ADIFF, CBC, URIC, ANEU, GFR ####[place] [address]#### GGT ####[place] [address] Potassium [Moles/Vol] 4.5 mmol/L Normal 3.5-5.1 [facility] ([place]) Comment on above: Performed By: #### C MP, ADIFF, CBC, URIC, ANEU, GFR ####[place] [address] [place] [address]#### GGT ####[place] [address] Sodium [Moles/Vol] 140 mmol/L Normal 136-145 [facility] ([place]) Comment on above: Performed By: #### C MP, ADIFF, CBC, URIC, ANEU, GFR ####[place] [address]#### GGT ####[place] [address] Total Protein 7.1 G/dL Normal 6.4-8.2 [facility] ([place]) Comment on above: Performed By: #### C MP, ADIFF, CBC, URIC, ANEU, GFR ####[place] [address]#### GGT ####[place] [address] Urea nitrogen [Mass/Vol] 5 mg/dL Low 7-18 [facility] ([place]) Comment on above: Performed By: #### C MP, ADIFF, CBC, URIC, ANEU, GFR ####[place] [address]#### GGT ####[place] [address] GGTon 10-29-2022 Gamma GT 26 U/L Normal 5-55 [facility] ([place]) Comment on above: Performed By: #### C MP, ADIFF, CBC, URIC, ANEU, GFR ####[place] [address]#### GGT ####[place] [address] LABORATORYOrdered By: SYSTEM SYSTEM on 10-29-2022 Albumin [...] Uric Acid Lvl 4.3 mg/dL Normal 2.6-6.2 [facility] ([place]) Comment on above: Performed By: #### C MP, ADIFF, CBC, URIC, ANEU, GFR ####[address] [place], [place] [address]#### GGT ####[place] [address] US ABDOMEN LIMITEDon 023 US ABDOMEN LIMITED Normal [facility]) VARISon 10-10-[address] Positive Normal [facility]) Comment on above: Result Comment: INTE RPRETATION OF VARICELLA IMMUNE STATUS IgG BY EIA: Negative: No detectable VZV IgG antibody. Positive: VZV IgG antibody Detected. If clinically indicated, order Varicella IgM to rule out recent infection. Equivocal: Equivocal for antibodies to VZV. Suggest repeat testing in 10-14 days. Performed By: #### A DIFF, CBC, ANEU, TSH ####[place] [address]#### ANSG, RPR, RUBIS, VARIS, HBSAG, HCV1, ABOG ####[address]ia [address] [place], [place] [address] RPRon 10-08-2022 Reagin Ab RPR Ql (S) Non-Reactive Normal Non-Reactive [facility] ([place]) Comment on above: Result Comment: The RPR [...] By: #### A DIFF, CBC, ANEU, TSH ####[place] [address]#### ANSG, RPR, RUBIS, VARIS, HBSAG, HCV1, ABOG ####[facility] [place], [place] [address] RUBISon 10-08-[address] Positive Normal Positive [facility] ([place]) Comment on above: Result Comment: This immune status assay detects IgM and/or IgG antibody to Rubella. Interpret results in conjunction with clinical history. POS: Antibody detected; exposure at undetermined recent or distant time. If clinically indicated, order Rubella IGM to rule out recent infection. NEG: No antibody detected. Performed By: #### A DIFF, CBC, ANEU, TSH ####[place] [address]#### ANSG, RPR, RUBIS, VARIS, HBSAG, HCV1, ABOG ####[facility] [place], [place] [address] .Auto Diffon 10-07-2022 Basophil, Absolute 0.0 10 3/mcL Normal 0.0-0.2 [facility] ([place]) Comment on above: Performed By: #### A DIFF, CBC, ANEU, TSH ####[place] [address]#### ANSG, RPR, RUBIS, VARIS, HBSAG, HCV1, ABOG ####[facility] [place] [address] Basophils/100 WBC (Bld) 0.4 % Normal 0.0-2.5 [facility] ([place]) Comment on above: Performed By: #### A DIFF, CBC, ANEU, TSH ####[place] [address]#### ANSG, RPR, RUBIS, VARIS, HBSAG, HCV1, ABOG ####[facility] HospitalPawwvcffe[address] [place], [place] [address] Eosinophil, Absolute 0.1 10 3/mcL Normal 0.0-0.4 [facility] ([place]) Comment on above: Performed By: #### A DIFF, CBC, ANEU, TSH ####[place] [address]#### ANSG, RPR, RUBIS, VARIS, HBSAG, HCV1, ABOG ####[facility] HospitalCapkizdjf4775 [place], [place] [address] Eosinophils/100 WBC (Bld) 0.6 % Normal 0.0-7.0 [facility] ([place]) Comment on above: Performed By: #### A DIFF, CBC, ANEU, TSH ####[place] [address]#### ANSG, RPR, RUBIS, VARIS, HBSAG, HCV1, ABOG ####[facility] [place], [place] [address] Lymphocyte, Absolute 1.8 10 3/mcL Normal 0.8-3.9 [facility] ([place]) Comment on above: Performed By: #### A DIFF, CBC, ANEU, TSH ####[place] [address]#### ANSG, RPR, RUBIS, VARIS, HBSAG, HCV1, ABOG ####[address] [address] Lymphocytes/100 WBC (Bld) 19.0 % Normal 10.0-50.0 [facility] ([place]) Comment on above: Performed By: #### A DIFF, CBC, ANEU, TSH ####[place] [address]#### ANSG, RPR, RUBIS, VARIS, HBSAG, HCV1, ABOG ####[facility] [place], [place] [address] Monocyte, Absolute 0.5 10 3/mcL Normal 0.2-1.0 [facility] ([place]) Comment on above: Performed By: #### A DIFF, CBC, ANEU, TSH ####[place] [address]#### ANSG, RPR, RUBIS, VARIS, HBSAG, HCV1, ABOG ####[facility] [place], [place] [address] Monocytes/100 WBC (Bld) 5.5 % Normal 1.7-13.0 [facility] ([place]) Comment on above: Performed By: #### A DIFF, CBC, ANEU, TSH ####[place] [address]#### ANSG, RPR, RUBIS, VARIS, HBSAG, HCV1, ABOG ####[facility] [place], [place] [address] Neutrophils/100 WBC (Bld) 74.5 % Normal 37.0-80.0 [facility] ([place]) Comment on above: Performed By: #### A DIFF, CBC, ANEU, TSH ####[place] [address]#### ANSG, RPR, RUBIS, VARIS, HBSAG, HCV1, ABOG ####[place] [id number] [place], [place] [address] .NEUABSon 10-07-2022 Neutrophil, Absolute 6.9 10 3/mcL High 2.9-6.2 [facility] ([place]) Comment on above: Performed By: #### A DIFF, CBC, ANEU, TSH ####[place] [address]#### ANSG, RPR, RUBIS, VARIS, HBSAG, HCV1, ABOG ####[facility] [place], [place] [address] CBCon 10-07-2022 Erythrocyte distribution width (RBC) [Ratio] 15.0 % High 11.5-14.5 [facility] ([place]) Comment on above: Performed By: #### A DIFF, CBC, ANEU, TSH ####[place] [address]#### ANSG, RPR, RUBIS, VARIS, HBSAG, HCV1, ABOG ####[facility] [place], [place] [address] Hematocrit (Bld) [Volume fraction] 35.2 % Low 37.0-47.0 [facility] ([place]) Comment on above: Performed By: #### A DIFF, CBC, ANEU, TSH ####[place] [address]#### ANSG, RPR, RUBIS, VARIS, HBSAG, HCV1, ABOG ####[place] [id number] [place], [place] [address] Hgb 11.7 G/dL Low 12.0-16.0 [facility] ([place]) Comment on above: Performed By: #### A DIFF, CBC, ANEU, TSH ####[place] [address]#### ANSG, RPR, RUBIS, VARIS, HBSAG, HCV1, ABOG ####[place] [id number] [place], [place] [address] MCH (RBC) [Entitic mass] 24.5 pg Low 27.0-31.2 [facility] ([place]) Comment on above: Performed By: #### A DIFF, CBC, ANEU, TSH ####[place] [address]#### ANSG, RPR, RUBIS, VARIS, HBSAG, HCV1, ABOG ####[place] [id number] [place] [id number] MCHC 33.1 G/dL Normal 33.0-37.0 [facility] ([place]) Comment on above: Performed By: #### A DIFF, CBC, ANEU, TSH ####[place] [address]#### ANSG, RPR, RUBIS, VARIS, HBSAG, HCV1, ABOG ####[place] [id number] [place], [place] [address] MCV (RBC) [Entitic vol] 74.0 fL Low 80.0-94.0 [facility] ([place]) Comment on above: Performed By: #### A DIFF, CBC, ANEU, TSH ####[place] [address]#### ANSG, RPR, RUBIS, VARIS, HBSAG, HCV1, ABOG ####[place] [id number] [place] [id number] Platelet 140 10 3/mcL Normal 130-400 [facility] ([place]) Comment on above: Performed By: #### A DIFF, CBC, ANEU, TSH ####[place] [address]#### ANSG, RPR, RUBIS, VARIS, HBSAG, HCV1, ABOG ####[facility] [place], [place] [address] Platelet mean volume (Bld) [Entitic vol] 9.7 fL Normal 7.4-10.4 [facility] ([place]) Comment on above: Performed By: #### A DIFF, CBC, ANEU, TSH ####[place] [address]#### ANSG, RPR, RUBIS, VARIS, HBSAG, HCV1, ABOG ####[facility] [place] [address] RBC 4.76 10 6/mcL Normal 4.20-5.40 [facility] ([place]) Comment on above: Performed By: #### A DIFF, CBC, ANEU, TSH ####[place] [address]#### ANSG, RPR, RUBIS, VARIS, HBSAG, HCV1, ABOG ####[place] [id number] [place] [address] WBC 9.2 10 3/mcL Normal 4.6-10.8 [facility] ([place]) Comment on above: Performed By: #### A DIFF, CBC, ANEU, TSH ####[place] [address]#### ANSG, RPR, RUBIS, VARIS, HBSAG, HCV1, ABOG ####[facility] [place] [address] Gel ABOon 10-07-2022 ABO/Rh Interp Positive Invalid Interpretation Code [facility] ([place]) Comment on above: Performed By: #### A DIFF, CBC, ANEU, TSH ####[place] [address]#### ANSG, RPR, RUBIS, VARIS, HBSAG, HCV1, ABOG ####[facility] [place] [address] Gel ABSon 10-07-2022 Antibody Screen Gel Negative Normal [facility] ([place]) Comment on above: Performed By: #### A DIFF, CBC, ANEU, TSH ####[place] [address]#### ANSG, RPR, RUBIS, VARIS, HBSAG, HCV1, ABOG ####[facility] [place], [place] [address] HBSAGon 10-07-2022 Hep B Surf Ag Non-Reactive Normal Non-Reactive [facility] ([place]) Comment on above: Performed By: #### A DIFF, CBC, ANEU, TSH ####[place] [address]#### ANSG, RPR, RUBIS, VARIS, HBSAG, HCV1, ABOG ####[place] [id number] [place] [id number] HCVon 10-07-2022 Hep C Ab Non-Reactive Normal Non-Reactive [facility] ([place]) Comment on above: Performed By: #### A DIFF, CBC, ANEU, TSH ####[place] [address]#### ANSG, RPR, RUBIS, VARIS, HBSAG, HCV1, ABOG ####[facility] [place] [id number] Hep C Ab Int Normal [facility] ([place]) Comment on above: Result Comment: Nonr eactive: Samples with a value < 0.80 are considered nonreactive (negative) for antibodies to HCV.A negative test result does not exclude the possibility of exposure to or infection with HCV. HCV antibodies may be undetectable in some stages of the infection and in some clinical conditions.See Interp Performed By: #### A DIFF, CBC, ANEU, TSH ####[place] [address]#### ANSG, RPR, RUBIS, VARIS, HBSAG, HCV1, ABOG ####[facility] [place] [id number] LABORATORYOrdered By: Madeline Amador on 10-07-2022 ABO/Rh [...] 10-07-2022 TSH Qn 0.70 m[IU]/L Normal 0.36-3.74 [facility] ([place]) Comment on above: Performed By: #### A DIFF, CBC, ANEU, TSH ####[place] [address]#### ANSG, RPR, RUBIS, VARIS, HBSAG, HCV1, ABOG ####[facility] HospitalLqhbtrcar9037 [place], [place] [address] LABORATORYOrdered By: Miladis Strickland on 08-26-2022 C. [...] Interpretation Code Auto Viro/Sero SS LABORATORYOrdered By: SYSTEM SYSTEM [...] HCG Qn 54.5 m[IU]/mL Invalid Interpretation Code [facility] Comment on above: Interpretive Data: H CG [...] HCG Qn 16.5 m[IU]/mL Invalid Interpretation Code [facility] Comment on above: Interpretive Data: H CG [...] Auto (Unsp spec) [#/Vol] 3.94 10*3/uL 0.83-4.51 [facility] Basophil percentageOrdered B y: Dr. Hooks on 04-26-2022 Basophils/100 WBC (Bld) 0.6 % 0-1 [facility] Chloride [Moles/Vol] 107 mmol/L 98-107 [facility] Eosinophils/100 WBC (Bld) 0.9 % 0-5 [facility] Glucose [Mass/Vol] 90 mg/dL 74-106 [facility] Neutrophils (Bld) [#/Vol] 5.4 10*3/uL 2.0-7.7 [facility] Neutrophils/100 WBC (Bld) 52.5 % 47-70 [facility] Potassium [Moles/Vol] 3.8 mmol/L 3.5-5.1 [facility] Sodium [Moles/Vol] 140 mmol/L 136-145 [facility] WBC (Bld) [#/Vol] 10.3 10*3/uL 4.4-11.0 [facility] Basophil percentage 0-5 SEEN /hpf 0-5 [facility] Bilirubin Test strip Ql (U)O rdered By: Dr. Hokos on 04-26-2022 Bilirubin Ql (U) Negative Negative [facility] Blood erythrocytes count (nu mber/volume)Ordered By: Dr. Hooks on 04-26-2022 RBC (Bld) [#/Vol] 4.80 10*6/uL 4.2-5.4 [facility] Blood hemoglobin measurement (mass/volume)Ordered By: Dr. Hooks on 04-26-2022 Hemoglobin (Bld) [Mass/Vol] 11.6 g/dL 12.0-15.0 [facility] Blood lymphocytes/100 leukoc ytesOrdered By: Dr. Hooks on 04-26-2022 Lymphocytes/100 WBC (Bld) 38.3 % 19-41 [facility] Blood monocytes/100 leukocyt esOrdered By: Dr. Hooks on 04-26-2022 Monocytes/100 WBC (Bld) 7.4 % 0-10 [facility] Blood platelet mean volumeOr dered By: Dr. Hooks on 04-26-2022 Platelet mean volume (Bld) [Entitic vol] 12.4 fL 6.2-12.0 [facility] Determination of erythrocyte mean corpuscular volume (MCV)Ordered By: Dr. Hooks on 04-26-2022 MCV (RBC) [Entitic vol] 78.5 fL 81-99 [facility] Hematocrit Auto (Bld) [Volum e fraction]Ordered By: Dr. Hooks on 04-26-2022 Hematocrit (Bld) [Volume fraction] 37.7 % 37-47 [facility] Ketones Test strip Ql (U)Ord ered By: Dr. Hooks on 04-26-2022 Ketones Ql (U) Negative Negative [facility] LABORATORYOrdered By: SYSTEM SYSTEM on 04-26-2022 HCG Qn mIU/mL Invalid Interpretation Code AO ADM SS Laboratory - Chemistry and C hemistry - challengeOrdered By: Dr. Hooks on 04-26-2022 CO2 [Moles/Vol] 26.0 mmol/L 21.0-32.0 [facility] Urea nitrogen/Creatinine [Mass ratio] 21.9 mg/mg 10-20 [facility] Laboratory - Hematology and Cell countsOrdered By: Dr. Hooks on 04-26-2022 Erythrocyte distribution width (RBC) [Entitic vol] 38.4 fL 35.1-43.9 [facility] Erythrocyte distribution width (RBC) [Ratio] 13.5 % 11.6-14.6 [facility] Immature granulocytes/100 WBC (Bld) 0.300 % 0.0-0.9 [facility] Comment on above: IG% - Immature Granu locytes (promyelocytes, myelocytes and metamyelocytes) > 1% indicates that a LEFT SHIFT is Present. MCH (RBC) [Entitic mass] 24.2 pg 27.0-32.0 [facility] Nucleated RBC/100 WBC (Bld) [Ratio] 0 % 0-5 [facility] MCHC Auto (RBC) [Mass/Vol]Or dered By: Dr. Hooks on 04-26-2022 MCHC (RBC) [Mass/Vol] 30.8 g/dL 32-36 [facility] Mucus LM Ql (Urine sed)Order ed By: Dr. Hooks on 04-26-2022 Mucus Ql (Urine sed) 0 SEEN /hpf [facility] Nitrite Test strip Ql (U)Ord ered By: Dr. Hooks on 04-26-2022 Nitrite Ql (U) Negative Negative [facility] No Panel InformationOrdered By: Dr. Hooks on 04-26-2022 Estimated Creatinine Clearance Calc 89.77 ml/min [facility] Estimated GFR (MDRD) Amer 113 mL/min >60 [facility] Comment on above: GFR Calc Estimated GFR (MDRD) Non-Af Amer 93 mL/min >60 [facility] Comment on above: Non- GFR Calc Platelets bldOrdered By: Dr. Hooks on 04-26-2022 Platelets (Bld) [#/Vol] 208 10*3/uL 150-450 [facility] Protein Test strip Ql (U)Ord ered By: Dr. Hooks on 04-26-2022 Protein Ql (U) 15 mg/dl Negative [facility] Serum or plasma calcium safia urement (mass/volume)Ordered By: Dr. Hooks on 04-26-2022 Calcium [Mass/Vol] 8.8 mg/dL 8.5-10.1 [facility] Serum or plasma choriogonado tropin detectionOrdered By: Dr. Hooks on 04-26-2022 HCG ( test) Ql < 1 mIU/mL <4 [facility] Comment on above: hCG levels with Gest ational AgeGestational Age hCG mIU/mL (IU/L)0.2 - 1 week 5 - 501-2 weeks 50 - 5002-3 weeks 100 - 87497-6 weeks 500 - 640821-5 weeks 1000 - 615749-3 weeks 11667 - 100,0006-8 weeks 235[address] - 200,0002-3 months [address] - 100,000 Serum or plasma creatinine m easurement (mass/volume)Ordered By: Dr. Hooks on 04-26-2022 Creatinine [Mass/Vol] 0.82 mg/dL 0.55-1.02 [facility] Comment on above: The validity of the calculated GFR & GFRAA in patients over 70 years has not been determined. Clinical correlation is essential. Serum or plasma urea nitroge n measurement (mass/volume)Ordered By: Dr. Hooks on 04-26-2022 Urea nitrogen [Mass/Vol] 18 mg/dL 7-18 [facility] Squamous epithelial cells de tection in urine sediment by light microscopyOrdered By: Dr. Hooks on 04-26-2022 Epithelial cells.squamous LM Ql (Urine sed) 10-25 SEEN /hpf 5-10 [facility] Thin prep Papanicolaou smear with manual screeningOrdered By: Dr. Hooks on 04-26-2022 Thin prep Papanicolaou smear with manual screening 7 5-15 [facility] Urine blood detectionOrdered By: Dr. Hooks on 04-26-2022 RBC Ql (U) Negative Negative [facility] RBC Ql (U) 0 SEEN /hpf 0-5 [facility] Urine clarityOrdered By: Dr. Hooks on 04-26-2022 Clarity (U) Sl. Cloudy Clear [facility] Urine color determinationOrd ered By: Dr. Hooks on 04-26-2022 Color (U) Yellow Yellow [facility] Urine glucose detectionOrder ed By: Dr. Hooks on 04-26-2022 Glucose Ql (U) Normal mg/dl Normal [facility] Urine leukocyte esterase det ection by dipstickOrdered By: Dr. Hooks on 04-26-2022 Leukocyte esterase Test strip Ql (U) 25 /ul Negative [facility] Urine pHOrdered By: Dr. Cristian paez on 04-26-2022 pH (U) 7.0 [pH] 5.0 - 8.0 [facility] Urine sediment bacteria coun t by microscopy (number/high power field)Ordered By: Dr. Hooks on 04-26-2022 Bacteria LM.HPF (Urine sed) [#/Area] 0 /[HPF] None Seen [facility] Urine specific gravity measu rementOrdered By: Dr. Hooks on 04-26-2022 Specific gravity (U) [Rel density] 1.015 1.002-1.030 [facility] Urobilinogen Auto test strip Ql (U)Ordered By: Dr. Hooks on 04-26-2022 Urobilinogen Ql (U) Normal mg/dl Normal [facility] LABORATORYOrdered By: [employer] on 04-15-2022 HCG Qn mIU/mL Invalid Interpretation [...] Comment on above: Result Comment: Note s [id number] S. agalactiae DNA JULIANNE+probe Ql (Vag+Rectum) Group [...] those with Streptococcus disease. Invalid Interpretation Code Auto Viro/Sero SS LABORATORYOrdered By: Daren Devi on 10-19-2021 [id number] .placental Ql (Vag fld) Negative (10/19/21 3:48 [...] 140 mg/dL AO ADM SS LABORATORYOrdered By: [employer] on 09-15-2021 Monocyte distribution width Auto [...] Mixed growth consistent with normal urogenital adrián. [facility] Work Phone: LABORATORYOrdered By: Brooklyn Morales [...] Probe Negative Renuka species DNA Probe Negative [facility] Work Phone: LABORATORYOrdered By: Madeline Amdaor on 06-14-2021 Basophil, Absolute 0.00 103/mcL Invalid [...] Heme SS LABORATORYOrdered By: SYSTEM SYSTEM on 05-01-2021 Hep B Surf Ag Non-Reactive [...] conditions. Invalid Interpretation Code AH Chemistry S LABORATORYOrdered By: Miladis Strickland on [...] Below (03/31/21 1:48 PM) Invalid Interpretation Code Chemistry S Laboratory - Specimen inform ationOrdered By: Miladis Strickland on 03-31-2021 Specimen source Nom (Unsp spec) Urine (03/31/21 1:48 PM) Invalid Interpretation Code AH Auto Viro/Sero SS No Panel Informationon 03-31 Culture Urine >100,000 cfu/ml Multiple bacterial morphotypes present. Probable Contamination. Suggest recollection if clinically indicated. [facility] Work Phone: LABORATORYOrdered By: Brooklyn Morales [...] Mixed growth consistent with normal urogenital adrián. [facility] Work Phone: LABORATORYOrdered By: Daren Albarran [...] Probable Contamination. Suggest recollection if clinically indicated. [facility] Work Phone: Vital Signs Date Time Vital Sign Value Performing Clinician Facility 10-09-2024 11:42-0400 Body temperature 98.6 [degF] No Primary Care Physician [facility] 10-09-2024 11:42-0400 Diastolic blood pressure 78 mm[Hg] No Primary Care Physician [facility] 10-09-2024 11:42-0400 Heart rate 104 /min No Primary Care Physician [facility] 10-09-2024 11:42-0400 Respiratory rate 16 /min No Primary Care Physician [facility] 10-09-2024 11:42-0400 SaO2% (BldA) [Mass fraction] 97 % No Primary Care Physician [facility] 10-09-2024 11:42-0400 Systolic blood pressure 154 mm[Hg] No Primary Care Physician [facility] 10-09-2024 09:27-0400 Body mass index (BMI) [Ratio] 53.4 kg/m2 No Primary Care Physician [facility] 10-09-2024 09:27-0400 Body weight 136.8 kg No Primary Care Physician [facility] 10-09-2024 08:49-0400 Body height 160.02 cm No Primary Care Physician [facility] 10-08-2024 15:57-0400 Body temperature 99.7 [degF] Quirino Cruz APRN.CNP Work Phone: [facility] 10-08-2024 15:57-0400 Body weight 136.7 kg Quirino Reajoycelyn MANUFACTURING TECHNOLOGY ANALYST.SALES REPRESENTATIVE [employer] Work Phone: [facility] 10-08-2024 15:57-0400 Diastolic blood pressure 72 mm[Hg] Quirino Cruz MANUFACTURING TECHNOLOGY ANALYST.SALES REPRESENTATIVE [employer] Work Phone: [facility] 10-08-2024 15:57-0400 Heart rate 94 /min Quirino Reajoycelyn MANUFACTURING TECHNOLOGY ANALYST.SALES REPRESENTATIVE [employer] Work Phone: [facility] 10-08-2024 15:57-0400 Respiratory rate 20 /min Quirino Cruz MANUFACTURING TECHNOLOGY ANALYST.SALES REPRESENTATIVE [employer] Work Phone: [facility] 10-08-2024 15:57-0400 SaO2% (BldA) [Mass fraction] 98 % Quirino Cruz MANUFACTURING TECHNOLOGY ANALYST.SALES REPRESENTATIVE [employer] Work Phone: [facility] 10-08-2024 15:57-0400 Systolic blood pressure 122 mm[Hg] Quirino Cruz MANUFACTURING TECHNOLOGY ANALYST.SALES REPRESENTATIVE [employer] Work Phone: [facility] 10-07-2024 07:26-0400 Body temperature 97.8 [degF] No Primary Care Physician [facility] 10-07-2024 07:26-0400 Diastolic blood pressure 78 mm[Hg] No Primary Care Physician [facility] 10-07-2024 07:26-0400 Heart rate 72 /min No Primary Care Physician [facility] 10-07-2024 07:26-0400 Respiratory rate 18 /min No Primary Care Physician [facility] 10-07-2024 07:26-0400 SaO2% (BldA) [Mass fraction] 99 % No Primary Care Physician [facility] 10-07-2024 07:26-0400 Systolic blood pressure 147 mm[Hg] No Primary Care Physician [facility] 10-07-2024 06:01-0400 Body height 160.02 cm No Primary Care Physician [facility] 10-07-2024 06:01-0400 Body mass index (BMI) [Ratio] 53.1 kg/m2 No Primary Care Physician [facility] 10-07-2024 06:01-0400 Body weight 136.2 kg No Primary Care Physician [facility] 06-05-2024 10:38-0400 Body temperature 97.39 [degF] Quirino Pendlebury MANUFACTURING TECHNOLOGY ANALYST.SALES REPRESENTATIVE [employer] Work Phone: [facility] 06-05-2024 10:38-0400 Body weight 131.6 kg Quirino Pendlebury MANUFACTURING TECHNOLOGY ANALYST.SALES REPRESENTATIVE [employer] Work Phone: [facility] 06-05-2024 10:38-0400 Diastolic blood pressure 66 mm[Hg] Quirino Pendlebury MANUFACTURING TECHNOLOGY ANALYST.SALES REPRESENTATIVE [employer] Work Phone: [facility] 06-05-2024 10:38-0400 Heart rate 72 /min Quirino Pendlebury MANUFACTURING TECHNOLOGY ANALYST.SALES REPRESENTATIVE [employer] Work Phone: [facility] 06-05-2024 10:38-0400 Respiratory rate 18 /min Quirino Pendlebury MANUFACTURING TECHNOLOGY ANALYST.SALES REPRESENTATIVE [employer] Work Phone: [facility] 06-05-2024 10:38-0400 SaO2% (BldA) [Mass fraction] 98 % Quirino Pendlebury MANUFACTURING TECHNOLOGY ANALYST.SALES REPRESENTATIVE [employer] Work Phone: [facility] 06-05-2024 10:38-0400 Systolic blood pressure 118 mm[Hg] Quirino Pendlebury MANUFACTURING TECHNOLOGY ANALYST.SALES REPRESENTATIVE [employer] Work Phone: [facility] 05-14-2024 08:47-0400 Body temperature 97.3 [degF] Krislyn Aberegg PA Work Phone: [facility] 05-14-2024 08:47-0400 Body weight 130.6 kg Krislyn Aberegg PA Work Phone: [facility] 05-14-2024 08:47-0400 Diastolic blood pressure 64 mm[Hg] Krislyn Aberegg PA Work Phone: [facility] 05-14-2024 08:47-0400 Heart rate 77 /min Krislyn Aberegg PA Work Phone: [facility] 05-14-2024 08:47-0400 Respiratory rate 18 /min Krislyn Aberegg PA Work Phone: [facility] 05-14-2024 08:47-0400 SaO2% (BldA) [Mass fraction] 98 % Krislyn Aberegg PA Work Phone: [facility] 05-14-2024 08:47-0400 Systolic blood pressure 102 mm[Hg] Krislyn Aberegg PA Work Phone: [facility] 04-19-2024 09:39-0500 Body temperature 97.81 [degF] George Montes MD Work Phone: [facility] 04-19-2024 09:39-0500 Body weight 130.7 kg George Montes MD Work Phone: [facility] 04-19-2024 09:39-0500 Diastolic blood pressure 83 mm[Hg] George Montes MD Work Phone: [facility] 04-19-2024 09:39-0500 Heart rate 77 /min George Montes MD Work Phone: [facility] 04-19-2024 09:39-0500 Respiratory rate 18 /min George Montes MD Work Phone: [facility] 04-19-2024 09:39-0500 SaO2% (BldA) [Mass fraction] 100 % George Montes MD Work Phone: [facility] 04-19-2024 09:39-0500 Systolic blood pressure 130 mm[Hg] George Montes MD Work Phone: [facility] 03-12-2024 14:01-0500 Body temperature 100.9 [degF] George Montes MD Work Phone: [facility] 03-12-2024 14:01-0500 Body weight 127.9 kg George Montes MD Work Phone: [facility] 03-12-2024 14:01-0500 Diastolic blood pressure 80 mm[Hg] George Montes MD Work Phone: [facility] 03-12-2024 14:01-0500 Heart rate 106 /min George Montes MD Work Phone: [facility] 03-12-2024 14:01-0500 Respiratory rate 16 /min George Montes MD Work Phone: [facility] 03-12-2024 14:01-0500 SaO2% (BldA) [Mass fraction] 99 % George Montes MD Work Phone: [facility] 03-12-2024 14:01-0500 Systolic blood pressure 110 mm[Hg] George Montes MD Work Phone: [facility] 12-30-2023 09:03-0500 Diastolic Blood Pressure Non-Invasive 68 mm[Hg] AMANDO RIZWAN DO [facility] 12-30-2023 09:03-0500 Heart rate 99 /min AMANDO RIZWAN DO [facility] 12-30-2023 09:03-0500 Systolic Blood Pressure Non-Invasive 108 mm[Hg] AMANDO RIZWAN DO [facility] 12-30-2023 09:00-0500 Body temperature 98.24 [degF] AMANDO RIZWAN DO [facility] 12-30-2023 08:53-0500 Body height 160 cm AMANDO RIZWAN DO [facility] 12-30-2023 08:53-0500 Body weight 131 kg AMANDO RIZWAN DO [facility] 12-30-2023 08:53-0500 Body weight 51.17 kg/m2 AMANDO RIZWAN DO [facility] 12-23-2023 10:30-0500 Body temperature 98.24 [degF] TRUMAN GABRIEL MD [facility] 12-23-2023 10:30-0500 Diastolic Blood Pressure Non-Invasive 71 mm[Hg] TRUMAN GABRIEL MD [facility] 12-23-2023 10:30-0500 Heart rate 100 /min TRUMAN GABRIEL MD [facility] 12-23-2023 10:30-0500 Respiratory rate 18 /min TRUMAN GABRIEL MD [facility] 12-23-2023 10:30-0500 Systolic Blood Pressure Non-Invasive 115 mm[Hg] TRUMAN GABRIEL MD [facility] 12-23-2023 10:22-0500 Body height 160 cm TRUMAN GABRIEL MD [facility] 12-23-2023 10:22-0500 Body weight 130 kg TRUMAN GABRIEL MD [facility] 12-23-2023 10:22-0500 Body weight 50.78 kg/m2 TRUMAN GABRIEL MD [facility] 11-09-2023 09:59-0400 Blood Pressure Location KALA LITTLE DO [facility] 11-09-2023 09:59-0400 Blood Pressure Method KALA LITTLE DO [facility] 11-09-2023 09:59-0400 Body temperature 97.7 [degF] KALA LITTLE DO [facility] 11-09-2023 09:59-0400 Diastolic Blood Pressure Non-Invasive 78 mm[Hg] KALAJOSE J LITTLE DO [facility] 11-09-2023 09:59-0400 Heart rate 90 /min KALAJOSE J LITTLE DO [facility] 11-09-2023 09:59-0400 Respiratory rate 18 /min KALAJOSE J LITTLE DO [facility] 11-09-2023 09:59-0400 Systolic Blood Pressure Non-Invasive 127 mm[Hg] KALA LITTLE DO [facility] 08-30-2023 10:28-0400 Body temperature 98.6 [degF] Naye Hancock APRN.SALES REPRESENTATIVE [employer] Work Phone: [facility] 08-30-2023 10:28-0400 Body weight 128.1 kg Naye Hancock APRN.SALES REPRESENTATIVE [employer] Work Phone: [facility] 08-30-2023 10:28-0400 Diastolic blood pressure 78 mm[Hg] Naye Hancock APRN.SALES REPRESENTATIVE [employer] Work Phone: [facility] 08-30-2023 10:28-0400 Heart rate 92 /min Naye Hancock APRN.SALES REPRESENTATIVE [employer] Work Phone: [facility] 08-30-2023 10:28-0400 Respiratory rate 18 /min Naye Hancock APRN.SALES REPRESENTATIVE [employer] Work Phone: [facility] 08-30-2023 10:28-0400 SaO2% (BldA) [Mass fraction] 99 % Naye Hancock APRN.SALES REPRESENTATIVE [employer] Work Phone: [facility] 08-30-2023 10:28-0400 Systolic blood pressure 114 mm[Hg] Naye Hancock APRN.SALES REPRESENTATIVE [employer] Work Phone: [facility] 02-23-2023 10:30-0500 Body temperature 98.24 [degF] KARISSA CHIU MD [facility] 02-23-2023 10:30-0500 Diastolic Blood Pressure Non-Invasive 78 mm[Hg] KARISSA CHIU MD [facility] 02-23-2023 10:30-0500 Heart rate 72 /min KARISSA CHIU MD [facility] 02-23-2023 10:30-0500 Reason For Taking VItal Signs KARISSA CHIU MD [facility] 02-23-2023 10:30-0500 Respiratory rate 16 /min KARISSA CHIU MD [facility] 02-23-2023 10:30-0500 Systolic Blood Pressure Non-Invasive 137 mm[Hg] KARISSA CHIU MD [facility] 02-22-2023 23:36-0500 Body temperature 97.88 [degF] KARISSA CHIU MD [facility] 02-22-2023 23:36-0500 Diastolic Blood Pressure Non-Invasive 73 mm[Hg] KARISSA CHIU MD [facility] 02-22-2023 23:36-0500 Heart rate 85 /min KARISSA CHIU MD [facility] 02-22-2023 23:36-0500 Respiratory rate 16 /min KARISSA CHIU MD [facility] 02-22-2023 23:36-0500 Systolic Blood Pressure Non-Invasive 135 mm[Hg] KARISSA CHIU MD [facility] 02-22-2023 15:50-0500 Body temperature 98.06 [degF] KARISSA CHIU MD [facility] 02-22-2023 15:50-0500 Diastolic Blood Pressure Non-Invasive 75 mm[Hg] KARISSA CHIU MD [facility] 02-22-2023 15:50-0500 Heart rate 80 /min KARISSA CHIU MD [facility] 02-22-2023 15:50-0500 Reason For Taking VItal Signs KARISSA CHIU MD [facility] 02-22-2023 15:50-0500 Systolic Blood Pressure Non-Invasive 134 mm[Hg] KARISSA CHIU MD [facility] 02-22-2023 12:30-0500 Respiratory rate 16 /min KARISSA CHIU MD [facility] 02-22-2023 08:30-0500 Reason For Taking VItal Signs KARISSA CHIU MD [facility] 02-21-2023 13:50-0500 Respiratory Rate - Anes 13 br/min KARISSA CHIU MD [facility] 02-21-2023 13:45-0500 Respiratory Rate - Anes 0 br/min KARISSA CHIU MD [facility] 02-21-2023 13:40-0500 Body temperature 96.8 [degF] KARISSA CHIU MD [facility] 02-21-2023 13:40-0500 Respiratory Rate - Anes 22 br/min KARISSA CHIU MD [facility] 02-21-2023 13:10-0500 Body temperature 96.8 [degF] KARISSA CHIU MD [facility] 02-21-2023 12:45-0500 Body temperature 97.7 [degF] KARISSA CHIU MD [facility] 02-21-2023 10:34-0500 Body height 160 cm KARISSA CHIU MD [facility] 02-21-2023 10:34-0500 Body weight 125 kg KARISSA CHIU MD [facility] 02-21-2023 10:34-0500 Body weight 48.83 kg/m2 KARISSA CHIU MD [facility] 02-15-2023 21:00-0500 Diastolic Blood Pressure Non-Invasive 56 mm[Hg] RENATE NIMESH DO [facility] 02-15-2023 21:00-0500 Heart rate 68 /min RENATE NIMESH DO [facility] 02-15-2023 20:45-0500 Diastolic Blood Pressure Non-Invasive 57 mm[Hg] RENATE NIMESH DO [facility] 02-15-2023 20:45-0500 Heart rate 73 /min RENATE NIMESH DO [facility] 02-15-2023 20:45-0500 Systolic Blood Pressure Non-Invasive 95 mm[Hg] RENATE NIMESH DO [facility] 02-15-2023 20:30-0500 Diastolic Blood Pressure Non-Invasive 53 mm[Hg] RENATE NIMESH DO [facility] 02-15-2023 20:30-0500 Heart rate 60 /min RENATE NIMESH DO [facility] 02-15-2023 20:30-0500 Systolic Blood Pressure Non-Invasive 106 mm[Hg] RENATE NIMESH DO [facility] 02-15-2023 13:56-0500 Body temperature 97.88 [degF] RENATE NIMESH DO [facility] 02-15-2023 13:56-0500 Respiratory rate 16 /min RENATE NIMESH DO [facility] 02-15-2023 13:52-0500 Body height 160 cm RENATE NIMESH DO [facility] 02-15-2023 13:52-0500 Body weight 81.3 kg RENATE NIMESH DO [facility] 02-15-2023 13:52-0500 Body weight 31.76 kg/m2 RENATE NIMESH DO [facility] 02-12-2023 13:15-0500 Diastolic Blood Pressure Non-Invasive 65 mm[Hg] YANNI BURNS MD [facility] 02-12-2023 13:15-0500 Heart rate 65 /min YANNI BURNS MD [facility] 02-12-2023 13:15-0500 Systolic Blood Pressure Non-Invasive 103 mm[Hg] YANNI BURNS MD [facility] 02-12-2023 13:13-0500 Body temperature 98.42 [degF] YANNI BURNS MD [facility] 02-12-2023 13:07-0500 Body height 160 cm YANNI BURNS MD [facility] 02-12-2023 13:07-0500 Body weight 125 kg YANNI BURNS MD [facility] 02-12-2023 13:07-0500 Body weight 48.83 kg/m2 YANNI BURNS MD [facility] 02-10-2023 08:58-0500 Body temperature 98.42 [degF] DR GÉNESIS BLAKE DO [facility] 02-10-2023 08:58-0500 Diastolic Blood Pressure Non-Invasive 69 mm[Hg] DR GÉNESIS BLAKE DO [facility] 02-10-2023 08:58-0500 Heart rate 80 /min DR GÉNESIS BLAKE DO [facility] 02-10-2023 08:58-0500 Respiratory rate 16 /min DR GÉNESIS BLAKE DO [facility] 02-10-2023 08:58-0500 Systolic Blood Pressure Non-Invasive 104 mm[Hg] DR GÉNESIS BLAKE DO [facility] 02-10-2023 03:13-0500 Diastolic Blood Pressure Non-Invasive 57 mm[Hg] DR GÉNESIS BLAKE DO [facility] 02-10-2023 03:13-0500 Heart rate 112 /min DR GÉNESIS BLAKE DO [facility] 02-10-2023 03:13-0500 Respiratory rate 16 /min DR GÉNESIS BLAKE DO [facility] 02-10-2023 03:13-0500 Systolic Blood Pressure Non-Invasive 110 mm[Hg] DR GÉNESIS BLAKE DO [facility] 02-09-2023 23:50-0500 Body temperature 98.96 [degF] DR GÉNESIS BLAKE DO [facility] 02-09-2023 23:50-0500 Diastolic Blood Pressure Non-Invasive 54 mm[Hg] DR GÉNESIS BLAKE DO [facility] 02-09-2023 23:50-0500 Heart rate 102 /min DR GÉNESIS BLAKE DO [facility] 02-09-2023 23:50-0500 Respiratory rate 16 /min DR GÉNESIS BLAKE DO [facility] 02-09-2023 23:50-0500 Systolic Blood Pressure Non-Invasive 117 mm[Hg] DR GÉNESIS BLAKE DO [facility] 02-09-2023 19:28-0500 Body temperature 98.06 [degF] DR GÉNESIS BLAKE DO [facility] 02-09-2023 19:28-0500 Reason For Taking VItal Signs DR GÉNESIS BLAKE DO [facility] 02-09-2023 15:38-0500 Reason For Taking VItal Signs DR GÉNESIS BLAKE DO [facility] 02-09-2023 14:08-0500 Reason For Taking VItal Signs DR GÉNESIS BLAKE DO [facility] 02-09-2023 12:52-0500 Body height [address] GÉNESIS BLAKE DO [facility] 02-09-2023 12:52-0500 Body weight [address] GÉNESIS BLAKE DO [facility] 02-09-2023 12:52-0500 Body weight 48.83 kg/m2 DR GÉNESIS BLAKE DO [facility] 02-09-2023 08:31-0500 Body height [address] GÉNESIS BLAKE DO [facility] 02-09-2023 08:31-0500 Body weight [address] GÉNESIS BLAKE DO [facility] 02-09-2023 08:31-0500 Body weight 48.83 kg/m2 DR GÉNESIS BLAKE DO [facility] 02-02-2023 17:06-0500 Diastolic blood pressure 53 mm[Hg] No Primary Care Physician [facility] 02-02-2023 17:06-0500 Heart rate 74 /min No Primary Care Physician [facility] 02-02-2023 17:06-0500 Systolic blood pressure 117 mm[Hg] No Primary Care Physician [facility] 02-02-2023 15:59-0500 Body height 160.02 cm No Primary Care Physician [facility] 02-02-2023 15:59-0500 Body mass index (BMI) [Ratio] 48.4 kg/m2 No Primary Care Physician [facility] 02-02-2023 15:59-0500 Body weight 124.1 kg No Primary Care Physician [facility] 02-02-2023 15:51-0500 Body temperature 99.6 [degF] No Primary Care Physician [facility] 02-02-2023 15:51-0500 SaO2% (BldA) [Mass fraction] 99 % No Primary Care Physician [facility] 01-26-2023 09:59-0500 Body height 160 cm FILI REMY MD [facility] 01-26-2023 09:59-0500 Body weight 79 kg FILI REMY MD [facility] 01-26-2023 09:59-0500 Body weight 30.86 kg/m2 FILI REMY MD [facility] 01-26-2023 09:58-0500 Diastolic Blood Pressure Non-Invasive 62 mm[Hg] FILI REMY MD [facility] 01-26-2023 09:58-0500 Heart rate 90 /min FILI REMY MD [facility] 01-26-2023 09:58-0500 Respiratory rate 18 /min FILI REMY MD [facility] 01-26-2023 09:58-0500 Systolic Blood Pressure Non-Invasive 121 mm[Hg] FILI REMY MD [facility] 01-13-2023 10:00-0500 Body temperature 98.42 [degF] APURVA SINGH MD [facility] 01-13-2023 10:00-0500 Diastolic Blood Pressure Non-Invasive 59 mm[Hg] APURVA SINGH MD [facility] 01-13-2023 10:00-0500 Heart rate 89 /min APURVA SINGH MD [facility] 01-13-2023 10:00-0500 Reason For Taking VItal Signs APURVA SINGH MD [facility] 01-13-2023 10:00-0500 Respiratory rate 18 /min APURVA SINGH MD [facility] 01-13-2023 10:00-0500 Systolic Blood Pressure Non-Invasive 114 mm[Hg] APURVA SINGH MD [facility] 01-12-2023 21:05-0500 Body temperature 98.24 [degF] APURVA SINGH MD [facility] 01-12-2023 21:05-0500 Diastolic Blood Pressure Non-Invasive 68 mm[Hg] APURVA SINGH MD [facility] 01-12-2023 21:05-0500 Heart rate 102 /min APURVA SINGH MD [facility] 01-12-2023 21:05-0500 Reason For Taking VItal Signs APURVA SINGH MD [facility] 01-12-2023 21:05-0500 Respiratory rate 18 /min APURVA SINGH MD [facility] 01-12-2023 21:05-0500 Systolic Blood Pressure Non-Invasive 117 mm[Hg] APURVA SINGH MD [facility] 01-12-2023 21:03-0500 Body height 160 cm APURVA SINGH MD [facility] 01-12-2023 21:03-0500 Body weight 118.2 kg APURVA SINGH MD [facility] 01-12-2023 21:03-0500 Body weight 46.17 kg/m2 APURVA SINGH MD [facility] 12-02-2022 11:30-0400 Diastolic Blood Pressure Non-Invasive 56 1 APURVA SINGH MD [facility] 12-02-2022 11:30-0400 Heart rate 93 /min APURVA SINGH MD [facility] 12-02-2022 11:30-0400 Respiratory rate 18 /min APURVA SINGH MD [facility] 12-02-2022 11:30-0400 Systolic Blood Pressure Non-Invasive 122 1 APURVA SINGH MD [facility] 12-02-2022 11:26-0400 Body height 160 cm APURVA SINGH MD [facility] 12-02-2022 11:26-0400 Body weight 118.2 kg APURVA SINGH MD [facility] 12-02-2022 11:26-0400 Body weight 46.17 kg/m2 APURVA SINGH MD [facility] 12-02-2022 08:16-0400 Body height 160.02 cm No Primary Care Physician [facility] 12-02-2022 08:16-0400 Body mass index (BMI) [Ratio] 46 kg/m2 No Primary Care Physician [facility] 12-02-2022 08:16-0400 Body weight 117.93 kg No Primary Care Physician [facility] 12-02-2022 08:07-0400 Body temperature 96.8 [degF] No Primary Care Physician [facility] 12-02-2022 08:07-0400 Diastolic blood pressure 66 mm[Hg] No Primary Care Physician [facility] 12-02-2022 08:07-0400 Heart rate 85 /min No Primary Care Physician [facility] 12-02-2022 08:07-0400 SaO2% (BldA) [Mass fraction] 97 % No Primary Care Physician [facility] 12-02-2022 08:07-0400 Systolic blood pressure 133 mm[Hg] No Primary Care Physician [facility] 11-24-2022 09:41-0400 Body temperature 98.78 [degF] MARYJANE AVILA MD [facility] 11-24-2022 09:41-0400 Diastolic Blood Pressure Non-Invasive 60 1 MARYJANE AVILA MD [facility] 11-24-2022 09:41-0400 Heart rate 83 /min MARYJANE AVILA MD [facility] 11-24-2022 09:41-0400 Respiratory rate 16 /min MARYJANE AVILA MD [facility] 11-24-2022 09:41-0400 Systolic Blood Pressure Non-Invasive 113 1 MARYJANE AVILA MD [facility] 11-24-2022 09:35-0400 Body height 160 cm MARYJANE AVILA MD [facility] 11-24-2022 09:35-0400 Body weight 121.8 kg MARYJANE AVILA MD [facility] 11-24-2022 09:35-0400 Body weight 47.58 kg/m2 MARYJANE AVILA MD [facility] 11-12-2022 09:56-0400 Body height 160 cm MARYJANE AVILA MD [facility] 11-12-2022 09:56-0400 Body weight 122 kg MARYJANE AVILA MD [facility] 11-12-2022 09:56-0400 Body weight 47.66 kg/m2 MARYJANE AVILA MD [facility] 11-12-2022 09:54-0400 Body temperature 98.42 [degF] MARYJANE AVILA MD [facility] 11-12-2022 09:54-0400 Diastolic Blood Pressure Non-Invasive 62 1 MARYJANE AVILA MD [facility] 11-12-2022 09:54-0400 Heart rate 91 /min MARYJANE AVILA MD [facility] 11-12-2022 09:54-0400 Respiratory rate 18 /min MARYJANE AVILA MD [facility] 11-12-2022 09:54-0400 Systolic Blood Pressure Non-Invasive 116 1 MARYJANE AVILA MD [facility] 11-11-2022 19:34-0400 Body temperature 98.06 [degF] APURVA SINGH MD [facility] 11-11-2022 19:34-0400 Diastolic Blood Pressure Non-Invasive 64 1 APURVA SINGH MD [facility] 11-11-2022 19:34-0400 Heart rate 100 /min APURVA SINGH MD [facility] 11-11-2022 19:34-0400 Reason For Taking VItal Signs APURVA SINGH MD [facility] 11-11-2022 19:34-0400 Respiratory rate 18 /min APURVA SINGH MD [facility] 11-11-2022 19:34-0400 Systolic Blood Pressure Non-Invasive 110 1 APURVA SINGH MD [facility] 11-09-2022 12:26-0400 Diastolic blood pressure 55 mm[Hg] No Primary Care Physician [facility] 11-09-2022 12:26-0400 Heart rate 77 /min No Primary Care Physician [facility] 11-09-2022 12:26-0400 Systolic blood pressure 117 mm[Hg] No Primary Care Physician [facility] 11-09-2022 07:34-0400 Body height 160.02 cm No Primary Care Physician [facility] 11-09-2022 07:34-0400 Body mass index (BMI) [Ratio] 47.5 kg/m2 No Primary Care Physician [facility] 11-09-2022 07:34-0400 Body weight 121.7 kg No Primary Care Physician [facility] 11-09-2022 07:22-0400 Body temperature 97.1 [degF] No Primary Care Physician [facility] 11-09-2022 07:22-0400 SaO2% (BldA) [Mass fraction] 98 % No Primary Care Physician [facility] 04-26-2022 17:14-0400 Body height 160.02 cm [facility] 04-26-2022 17:14-0400 Body mass index (BMI) [Ratio] 47.8 kg/m2 [facility] 04-26-2022 17:14-0400 Body temperature 97.8 [degF] [facility] 04-26-2022 17:14-0400 Body weight 122.46 kg [facility] 04-26-2022 17:14-0400 Diastolic blood pressure 107 mm[Hg] [facility] 04-26-2022 17:14-0400 Heart rate 102 /min [facility] 04-26-2022 17:14-0400 Respiratory rate 16 /min [facility] 04-26-2022 17:14-0400 SaO2% (BldA) [Mass fraction] 99 % [facility] 04-26-2022 17:14-0400 Systolic blood pressure 146 mm[Hg] [facility] 03-22-2022 17:45-0500 Body height 160.02 cm [facility] 03-22-2022 17:45-0500 Body mass index (BMI) [Ratio] 48.8 kg/m2 [facility] 03-22-2022 17:45-0500 Body temperature 99 [degF] [facility] 03-22-2022 17:45-0500 Body weight 125 kg [facility] 03-22-2022 17:45-0500 Diastolic blood pressure 80 mm[Hg] [facility] 03-22-2022 17:45-0500 Heart rate 131 /min [facility] 03-22-2022 17:45-0500 Respiratory rate 22 /min [facility] 03-22-2022 17:45-0500 SaO2% (BldA) [Mass fraction] 99 % [facility] 03-22-2022 17:45-0500 Systolic blood pressure 134 mm[Hg] [facility] 11-12-2021 08:26-0400 Body temperature 98.6 [degF] BERONICA FLOYD MD [facility] 11-12-2021 08:26-0400 Diastolic blood pressure 68 mm[Hg] BERONICA FLOYD MD [facility] 11-12-2021 08:26-0400 Heart rate 88 /min BERONICA FLOYD MD [facility] 11-12-2021 08:26-0400 Mean blood pressure 82 mm[Hg] BERONICA FLOYD MD [facility] 11-12-2021 08:26-0400 Respiratory rate 16 /min BERONICA FLOYD MD [facility] 11-12-2021 08:26-0400 Systolic blood pressure 110 mm[Hg] BERONICA FLOYD MD [facility] 11-12-2021 00:06-0400 Body temperature 97.88 [degF] BERONICA FLOYD MD [facility] 11-12-2021 00:06-0400 Diastolic blood pressure 67 mm[Hg] BERONICA FLOYD MD [facility] 11-12-2021 00:06-0400 Heart rate 87 /min BERONICA FLOYD MD [facility] 11-12-2021 00:06-0400 Mean blood pressure 80 mm[Hg] BERONICA FLOYD MD [facility] 11-12-2021 00:06-0400 Respiratory rate 18 /min BERONICA FLOYD MD [facility] 11-12-2021 00:06-0400 Systolic blood pressure 107 mm[Hg] BERONICA FLOYD MD [facility] 11-11-2021 18:15-0400 Diastolic blood pressure 57 mm[Hg] BERONICA FLOYD MD [facility] 11-11-2021 18:15-0400 Heart rate 83 /min BERONICA FLOYD MD [facility] 11-11-2021 18:15-0400 Mean blood pressure 74 mm[Hg] BERONICA FLOYD MD [facility] 11-11-2021 18:15-0400 Systolic blood pressure 108 mm[Hg] BERONICA FLOYD MD [facility] 11-11-2021 14:02-0400 Body temperature 98.06 [degF] BERONICA FLOYD MD [facility] 11-11-2021 10:03-0400 Respiratory rate 18 /min BERONICA FLOYD MD [facility] 11-10-2021 20:15-0400 Diastolic Blood Pressure NBP 51 1 BERONICA FLOYD MD [facility] 11-10-2021 20:15-0400 Systolic Blood Pressure NBP 109 1 BERONICA FLOYD MD [facility] 11-10-2021 20:12-0400 Diastolic Blood Pressure NBP 50 1 BERONICA FLOYD MD [facility] 11-10-2021 20:12-0400 Systolic Blood Pressure NBP 106 1 BERONICA FLOYD MD [facility] 11-10-2021 20:10-0400 Diastolic Blood Pressure NBP 53 1 BERONICA FLOYD MD [facility] 11-10-2021 20:10-0400 Systolic Blood Pressure NBP 114 1 BERONICA FLOYD MD [facility] 11-10-2021 18:24-0400 Body height 162.6 cm BERONICA FLOYD MD [facility] 11-10-2021 18:24-0400 Body weight 130 kg BERONICA FLOYD MD [facility] 11-10-2021 18:24-0400 Body weight 49.17 kg/m2 BERONICA FLOYD MD [facility] 11-10-2021 12:16-0400 Body height 162.6 cm BERONICA FLOYD MD [facility] 11-10-2021 12:16-0400 Body weight 130 kg BERONICA FLOYD MD [facility] 11-10-2021 12:16-0400 Body weight 49.17 kg/m2 BERONICA FLOYD MD [facility] 10-19-2021 15:40-0400 Diastolic blood pressure 55 mm[Hg] BERONICA FLOYD MD [facility] 10-19-2021 15:40-0400 Heart rate 100 /min BERONICA FLOYD MD [facility] 10-19-2021 15:40-0400 Mean blood pressure 78 mm[Hg] BERONICA FLOYD MD [facility] 10-19-2021 15:40-0400 Respiratory rate 20 /min BERONICA FLOYD MD [facility] 10-19-2021 15:40-0400 Systolic blood pressure 125 mm[Hg] BERONICA FLOYD MD [facility] 10-19-2021 15:31-0400 Body height 160 cm BERONICA FLOYD MD [facility] 10-19-2021 15:31-0400 Body weight 162 kg BERONICA FLOYD MD [facility] 10-19-2021 15:31-0400 Body weight 63.28 kg/m2 BERONICA FLOYD MD [facility] 10-09-2021 11:54-0400 Body height 160 cm CHAU JOHNNY MANUFACTURING TECHNOLOGY ANALYST-CN[employer] [facility] 10-09-2021 11:54-0400 Body weight 129.5 kg CHAU JOHNNY MANUFACTURING TECHNOLOGY ANALYST-CN[employer] [facility] 10-09-2021 11:54-0400 Body weight 50.59 kg/m2 CHAU JOHNNY MANUFACTURING TECHNOLOGY ANALYST-CN[employer] [facility] 10-09-2021 11:30-0400 Body temperature 97.88 [degF] CHAU JOHNNY MANUFACTURING TECHNOLOGY ANALYST-CNM [facility] 10-09-2021 11:30-0400 Diastolic blood pressure 64 mm[Hg] CHAU JOHNNY MANUFACTURING TECHNOLOGY ANALYST-CNM [facility] 10-09-2021 11:30-0400 Heart rate 99 /min CHAU JOHNNY MANUFACTURING TECHNOLOGY ANALYST-CN[employer] [facility] 10-09-2021 11:30-0400 Respiratory rate 18 /min CHAU JOHNNY MANUFACTURING TECHNOLOGY ANALYST-CN[employer] [facility] 10-09-2021 11:30-0400 Systolic blood pressure 125 mm[Hg] CHAU JOHNNY MANUFACTURING TECHNOLOGY ANALYST-CNM [facility] 10-01-2021 10:40-0400 Body temperature 98.24 [degF] APURVA SINGH MD [facility] 10-01-2021 10:40-0400 Diastolic blood pressure 40 mm[Hg] APURVA SINGH MD [facility] 10-01-2021 10:40-0400 Heart rate 69 /min APURVA SINGH MD [facility] 10-01-2021 10:40-0400 Mean blood pressure 60 mm[Hg] APURVA SINGH MD [facility] 10-01-2021 10:40-0400 Respiratory rate 16 /min APURVA SINGH MD [facility] 10-01-2021 10:40-0400 Systolic blood pressure 101 mm[Hg] APURVA SINGH MD [facility] 09-10-2021 12:04-0400 Body temperature 97.81 [degF] Dianelys Praisler-Wood MANUFACTURING TECHNOLOGY ANALYST.SALES REPRESENTATIVE [employer] Work Phone: [facility] 09-10-2021 12:04-0400 Body weight 128.82 kg Dianelys Praisler-Wood MANUFACTURING TECHNOLOGY ANALYST.SALES REPRESENTATIVE [employer] Work Phone: [facility] 09-10-2021 12:04-0400 Diastolic blood pressure 66 mm[Hg] Dianelys Praisler-Wood MANUFACTURING TECHNOLOGY ANALYST.SALES REPRESENTATIVE [employer] Work Phone: [facility] 09-10-2021 12:04-0400 Heart rate 102 /min Dianelys Praisler-Wood MANUFACTURING TECHNOLOGY ANALYST.SALES REPRESENTATIVE [employer] Work Phone: [facility] 09-10-2021 12:04-0400 Respiratory rate 16 /min Dianelys Praisler-Wood MANUFACTURING TECHNOLOGY ANALYST.SALES REPRESENTATIVE [employer] Work Phone: [facility] 09-10-2021 12:04-0400 SaO2% (BldA) [Mass fraction] 99 % Dianelys Praisler-Wood MANUFACTURING TECHNOLOGY ANALYST.SALES REPRESENTATIVE [employer] Work Phone: [facility] 09-10-2021 12:04-0400 Systolic blood pressure 116 mm[Hg] Dianelys Praisler-Wood MANUFACTURING TECHNOLOGY ANALYST.SALES REPRESENTATIVE [employer] Work Phone: [facility] 09-07-2021 10:03-0400 Body height 160 cm BERONICA FLOYD MD [facility] 09-07-2021 10:03-0400 Body temperature 98.24 [degF] BERONICA FLOYD MD [facility] 09-07-2021 10:03-0400 Body weight 128 kg BERONICA FLOYD MD [facility] 09-07-2021 10:03-0400 Body weight 50 kg/m2 BERONICA FLOYD MD [facility] 09-07-2021 10:03-0400 Diastolic blood pressure 55 mm[Hg] BERONICA FLOYD MD [facility] 09-07-2021 10:03-0400 Heart rate 97 /min BERONICA FLOYD MD [facility] 09-07-2021 10:03-0400 Mean blood pressure 72 mm[Hg] BERONICA FLOYD MD [facility] 09-07-2021 10:03-0400 Respiratory rate 18 /min BERONICA FLOYD MD [facility] 09-07-2021 10:03-0400 Systolic blood pressure 105 mm[Hg] BERONICA FLOYD MD [facility] 08-26-2021 16:30-0400 Diastolic blood pressure 80 mm[Hg] BERONICA FLOYD MD [facility] 08-26-2021 16:30-0400 Heart rate 79 /min BERONICA FLOYD MD [facility] 08-26-2021 16:30-0400 Systolic blood pressure 113 mm[Hg] BERONICA FLOYD MD [facility] 08-26-2021 16:15-0400 Diastolic blood pressure 54 mm[Hg] BERONICA FLOYD MD [facility] 08-26-2021 16:15-0400 Heart rate 73 /min BERONICA FLOYD MD [facility] 08-26-2021 16:15-0400 Systolic blood pressure 114 mm[Hg] BERONICA FLOYD MD [facility] 08-26-2021 16:00-0400 Diastolic blood pressure 50 mm[Hg] BERONICA FLOYD MD [facility] 08-26-2021 16:00-0400 Systolic blood pressure 120 mm[Hg] BERONICA FLOYD MD [facility] 08-26-2021 15:45-0400 Respiratory rate 18 /min BERONICA FLOYD MD [facility] 08-26-2021 15:26-0400 Body height 160 cm BERONICA FLOYD MD [facility] 08-26-2021 15:26-0400 Body weight 122.7 kg BERONICA FLOYD MD [facility] 08-26-2021 15:26-0400 Body weight 47.93 kg/m2 BERONICA FLOYD MD [facility] 08-26-2021 15:20-0400 Body temperature 98.24 [degF] BERONICA FLOYD MD [facility] 06-14-2021 15:08-0400 Diastolic blood pressure 61 mm[Hg] NEMESIO GANN MD [facility] 06-14-2021 15:08-0400 Heart rate 75 /min NEMESIO GANN MD [facility] 06-14-2021 15:08-0400 Respiratory rate 20 /min NEMESIO GANN MD [facility] 06-14-2021 15:08-0400 Systolic blood pressure 116 mm[Hg] NEMESIO GANN MD [facility] 06-14-2021 14:51-0400 Diastolic blood pressure 63 mm[Hg] NEMESIO GANN MD [facility] 06-14-2021 14:51-0400 Heart rate 79 /min NEMESIO GANN MD [facility] 06-14-2021 14:51-0400 Respiratory rate 18 /min NEMESIO GANN MD [facility] 06-14-2021 14:51-0400 Systolic blood pressure 107 mm[Hg] NEMESIO GANN MD [facility] 06-14-2021 14:26-0400 Diastolic blood pressure 76 mm[Hg] NEMESIO GANN MD [facility] 06-14-2021 14:26-0400 Heart rate 83 /min NEMESIO GANN MD [facility] 06-14-2021 14:26-0400 Respiratory rate 18 /min NEMESIO GANN MD [facility] 06-14-2021 14:26-0400 Systolic blood pressure 117 mm[Hg] NEMESIO GANN MD [facility] 06-14-2021 14:08-0400 Body temperature 98.42 [degF] NEMESIO GANN MD [facility] 06-03-2021 19:58-0400 Diastolic blood pressure 78 mm[Hg] [facility] Work Phone: 06-03-2021 19:58-0400 Heart rate 74 /min [facility] Work Phone: 06-03-2021 19:58-0400 Respiratory rate 16 /min [facility] Work Phone: 06-03-2021 19:58-0400 SaO2% (BldA) [Mass fraction] 100 % [facility] Work Phone: 06-03-2021 19:58-0400 Systolic blood pressure 138 mm[Hg] [facility] Work Phone: 06-03-2021 19:11-0400 Body height 160.02 cm [facility] Work Phone: 06-03-2021 19:11-0400 Body mass index (BMI) [Ratio] 44.2 kg/m2 [facility] Work Phone: 06-03-2021 19:11-0400 Body temperature 97.2 [degF] [facility] Work Phone: 06-03-2021 19:11-0400 Body weight 113.39 kg [facility] Work Phone: 05-11-2021 11:41-0400 Body temperature 98.42 [degF] APURVA SINGH MD [facility] 05-11-2021 11:41-0400 Diastolic blood pressure 71 mm[Hg] APURVA SINGH MD [facility] 05-11-2021 11:41-0400 Heart rate 91 /min APURVA SINGH MD [facility] 05-11-2021 11:41-0400 Mean blood pressure 84 mm[Hg] APURVA SINGH MD [facility] 05-11-2021 11:41-0400 Respiratory rate 20 /min APURVA SINGH MD [facility] 05-11-2021 11:41-0400 Systolic blood pressure 110 mm[Hg] APURVA SINGH MD [facility] 05-11-2021 11:33-0400 Body height 160 cm APURVA SINGH MD [facility] 05-11-2021 11:33-0400 Body weight 109.1 kg APURVA SINGH MD [facility] 05-11-2021 11:33-0400 Body weight 42.62 kg/m2 APURVA SINGH MD [facility] 04-14-2021 09:35-0500 Body mass index (BMI) [Ratio] 49.6 kg/m2 [facility] Work Phone: 04-14-2021 09:35-0500 Body temperature 96.4 [degF] [facility] Work Phone: 04-14-2021 09:35-0500 Body weight 127 kg [facility] Work Phone: 04-14-2021 09:35-0500 Diastolic blood pressure 83 mm[Hg] [facility] Work Phone: 04-14-2021 09:35-0500 Heart rate 104 /min [facility] Work Phone: 04-14-2021 09:35-0500 Respiratory rate 16 /min [facility] Work Phone: 04-14-2021 09:35-0500 SaO2% (BldA) [Mass fraction] 100 % [facility] Work Phone: 04-14-2021 09:35-0500 Systolic blood pressure 168 mm[Hg] [facility] Work Phone: 04-13-2021 19:20-0500 Body mass index (BMI) [Ratio] 42.5 kg/m2 [facility] Work Phone: 04-13-2021 19:20-0500 Body temperature 98.2 [degF] [facility] Work Phone: 04-13-2021 19:20-0500 Body weight 108.86 kg [facility] Work Phone: 04-13-2021 19:20-0500 Diastolic blood pressure 79 mm[Hg] [facility] Work Phone: 04-13-2021 19:20-0500 Heart rate 99 /min [facility] Work Phone: 04-13-2021 19:20-0500 Respiratory rate 18 /min [facility] Work Phone: 04-13-2021 19:20-0500 SaO2% (BldA) [Mass fraction] 100 % [facility] Work Phone: 04-13-2021 19:20-0500 Systolic blood pressure 150 mm[Hg] [facility] Work Phone: 01-25-2021 15:40-0500 Body temperature 98.24 [degF] NEMESIO GANN MD [facility] 01-25-2021 15:40-0500 Diastolic blood pressure 86 mm[Hg] NEMESIO GANN MD [facility] 01-25-2021 15:40-0500 Heart rate 80 /min NEMESIO GANN MD [facility] 01-25-2021 15:40-0500 Respiratory rate 20 /min NEMESIO GANN MD [facility] 01-25-2021 15:40-0500 Systolic blood pressure 151 mm[Hg] NEMESIO GANN MD [facility] Encounters Encounter Date Encounter Type Care Provider Facility Start: 10-09-2024 End: 10-09-2024 Emergency department patient visit No Primary Care Physician -Emergency Department Work Phone: Start: 10-08-2024 End: 10-08-2024 Subsequent hospital visit by physician [facility] Work Phone: Radiology Comment on above: Acute cough [R05.1] Start: 10-08-2024 End: 10-08-2024 Office [facility] 25 [facility] MANUFACTURING TECHNOLOGY ANALYST.SALES REPRESENTATIVE [employer] Work Phone: [facility] Comment on above: Acute cough (Primary Dx); Viral URI with cough Start: 10-08-2024 End: 10-08-2024 ambulatory [facility] Facility:[facility] Start: 10-07-2024 End: 10-07-2024 Emergency department patient visit No Primary Care Physician -Emergency Department Work Phone: Start: 06-05-2024 End: 06-05-2024 Office outpatient visit 15 [facility] MANUFACTURING TECHNOLOGY ANALYST.SALES REPRESENTATIVE [employer] Work Phone: [facility] Comment on above: Foot pain, left (Joya roshan Dx) Start: 06-05-2024 End: 06-05-2024 ambulatory [facility] Facility:[facility] Start: 05-14-2024 End: 05-14-2024 Subsequent hospital visit by physician [facility] Work Phone: Radiology Comment on above: Foot pain, left [[id number]] Start: 05-14-2024 End: 05-14-2024 ambulatory YASMIN SUE Facility:[facility] Start: 05-14-2024 End: 05-14-2024 Office outpatient visit 15 minutes Yasmin Sue PA Work Phone: [facility] Comment on above: Foot pain, left (Joya roshan Dx); Acute left ankle pain Start: 04-19-2024 End: 04-19-2024 Subsequent hospital visit by physician [facility] Work Phone: Radiology Comment on above: Pain [R52] Start: 04-19-2024 End: 04-19-2024 ambulatory NAYE HANCOCK Facility:[facility] Start: 04-19-2024 End: 04-19-2024 Patient encounter procedure George Montes MD Work Phone: [facility] Comment on above: Pain (Primary Dx) Start: 03-20-2024 Encounter for other specified special examinations ABIMBOLA SMITH [facility] Start: 03-13-2024 End: 03-13-2024 Telephone encounter Dianelys McclendonAceAdiel SIFUENTESJENARO Work Phone: [facility] Comment on above: Results Start: 03-12-2024 End: 03-12-2024 Subsequent hospital visit by physician [facility] Work Phone: Radiology Comment on above: Acute cough [R05.1] Start: 03-12-2024 End: 03-12-2024 ambulatory GEORGE MONTES Facility:[facility] Start: 03-12-2024 End: 03-12-2024 Office outpatient visit 15 minutes George Montes MD Work Phone: [facility] Comment on above: Acute cough (Primary Dx); Influenza-like illness Start: 01-16-2024 End: 01-16-2024 ambulatory No Primary Care Physician Facility:[facility] Start: 01-08-2024 End: 01-08-2024 ambulatory Ena Lucas Facility:[facility] Start: 01-08-2024 ambulatory No Primary Car e Physician Facility:[facility] Start: 01-08-2024 End: 01-08-2024 Evaluation and management of inpatient No Primary Care Physician Facility:[facility] Start: 01-04-2024 End: 01-04-2024 ambulatory [facility] Start: 01-02-2024 End: 01-02-2024 ambulatory [facility] Start: 12-30-2023 End: 12-30-2023 Emergency department patient visit AMANDO ASTORGA DO [facility] Start: 12-29-2023 End: 12-29-2023 ambulatory [facility] Start: 12-26-2023 End: 12-26-2023 ambulatory ZACHARY Martin [facility] Start: 12-23-2023 End: 12-23-2023 Emergency department patient visit TRUMAN GABRIEL MD [facility] Start: 12-22-2023 End: 12-22-2023 ambulatory [facility] Start: 12-19-2023 End: 12-19-2023 ambulatory ZACHARY Martin [facility] Start: 12-16-2023 End: 12-16-2023 ambulatory [facility] Start: 12-09-2023 End: 12-09-2023 ambulatory PARMELE Dar [facility] Start: 12-08-2023 End: 12-08-2023 ambulatory NONE PHYSICIAN Facility:A Start: 12-07-2023 ambulatory No Primary Car e Physician Facility:[facility] Start: 12-07-2023 End: 12-07-2023 ambulatory No Primary Care Physician Facility:[facility] Start: 12-06-2023 End: 12-06-2023 ambulatory [facility] Start: 11-30-2023 End: 11-30-2023 ambulatory [facility] Start: 11-28-2023 End: 12-02-2023 ambulatory BERONICA FLOYD MD Facility[facility] Start: 11-28-2023 End: 12-02-2023 Outreach Lab BERONICA FLOYD MD [facility] Start: 11-10-2023 End: 11-10-2023 ambulatory NONE PHYSICIAN Facility:[facility] Start: 11-10-2023 End: 11-10-2023 Patient encounter procedure APURVA SINGH MD [facility] Start: 11-09-2023 End: 11-09-2023 Emergency department patient visit KALA LITTLE DO [facility] Start: 09-29-2023 End: 09-29-2023 ambulatory APURVA SINGH MD Facility:B Start: 09-29-2023 End: 09-29-2023 Patient encounter procedure APURVA SINGH MD [facility] Start: 09-23-2023 End: 09-23-2023 ambulatory APURVA SINGH MD Facility:B Start: 09-23-2023 End: 09-23-2023 Patient encounter procedure APURVA SINGH MD [facility] Start: 09-08-2023 End: 09-12-2023 ambulatory APURVA SINGH MD Facility:B Start: 09-08-2023 End: 09-12-2023 Outreach Lab APURVA SINGH MD [facility] Start: 08-30-2023 End: 08-30-2023 Patient encounter procedure Naye Hancock APRN.[facility] Work Phone: [facility] Comment on above: Chest congestion (Pr imary Dx); Acute cough Start: 02-21-2023 End: 02-23-2023 Evaluation and management of inpatient KARISSA CHIU MD [facility] Start: 02-18-2023 End: 02-18-2023 ambulatory [facility] Start: 02-16-2023 End: 02-20-2023 ambulatory NONE PHYSICIAN Facility:[facility] Obstetrics Start: 02-15-2023 End: 02-15-2023 ambulatory NONE PHYSICIAN Facility:A Start: 02-15-2023 End: 02-15-2023 SAME DAY STAY RENATE BEAVERS DO [facility] Start: 02-15-2023 End: 02-15-2023 ambulatory ZACHARY A [facility] Start: 02-12-2023 End: 02-12-2023 ambulatory NONE PHYSICIAN Facility:A Start: 02-12-2023 End: 02-12-2023 SAME DAY STAY YANNI BURNS MD [facility] Start: 02-11-2023 End: 02-11-2023 ambulatory [facility] Start: 02-09-2023 End: 02-10-2023 ambulatory FILI REMY MD Facility:A Start: 02-09-2023 End: 02-10-[address] GÉNESIS BLAKE DO [facility] Start: 02-08-2023 End: 02-08-2023 ambulatory [facility] Start: 02-04-2023 End: 02-04-2023 ambulatory [facility] Start: 02-03-2023 End: 02-04-2023 ambulatory [facility] Start: 02-02-2023 End: 02-02-2023 ambulatory No Primary Care Physician [facility] Work Phone: Start: 02-02-2023 End: 02-02-2023 Patient encounter procedure No Primary Care Physician [facility] Work Phone: Start: 02-01-2023 End: 02-01-2023 ambulatory [facility] Start: 01-28-2023 End: 01-28-2023 ambulatory [facility] Start: 01-26-2023 End: 01-26-2023 ambulatory FILI REMY MD Facility:A Start: 01-26-2023 End: 01-26-2023 SAME DAY STAY FILI REMY MD [facility] Start: 01-25-2023 End: 01-25-2023 ambulatory [facility] Start: 01-21-2023 End: 01-21-2023 ambulatory [facility] Start: 01-18-2023 End: 01-18-2023 ambulatory ABIMBOLA DEWITT [facility] Start: 01-17-2023 End: 01-21-2023 ambulatory NONE PHYSICIAN Facility:[facility] Obstetrics Start: 01-17-2023 End: 01-21-2023 ambulatory NONE PHYSICIAN Facility:[facility] Obstetrics Start: 01-14-2023 End: 01-14-[address] CLARENCE ARMSTRONG MD Facility:A Start: 01-14-2023 End: 01-17-2023 ambulatory BERONICA FLOYD [facility] Start: 01-12-2023 End: 01-13-2023 ambulatory NONE PHYSICIAN Facility:B Start: 01-12-2023 End: 01-13-2023 Observation APURVA SINGH MD [facility] Start: 01-08-2023 End: 01-08-2023 ambulatory UNKNOWN PROVIDER Facility:B Start: 01-08-2023 End: 01-08-2023 Patient encounter procedure BERONICA FLOYD MD [facility] Start: 01-04-2023 End: 01-05-2023 ambulatory UNKNOWN PROVIDER Facility:B Start: 01-03-2023 End: 01-03-2023 ambulatory NONE PHYSICIAN Facility:B Start: 01-03-2023 End: 01-03-2023 Patient encounter procedure APURVA SINGH MD [facility] Start: 12-29-2022 End: 12-29-2022 ambulatory NONE PHYSICIAN Facility:B Start: 12-29-2022 End: 12-29-2022 SAME DAY STAY MARYJANE AVILA MD [facility] Start: 12-28-2022 End: 12-28-2022 ambulatory NONE PHYSICIAN Facility:B Start: 12-16-2022 End: 12-16-2022 ambulatory NONE PHYSICIAN Facility:B Start: 12-16-2022 End: 12-16-2022 SAME DAY STAY APURVA SINGH MD [facility] Start: 12-16-2022 End: 12-16-2022 Emergency department patient visit NONE PHYSICIAN Facility:B Start: 12-16-2022 End: 12-16-2022 ambulatory NONE PHYSICIAN Facility:B Start: 12-09-2022 End: 12-09-2022 ambulatory NONE PHYSICIAN Facility:B Start: 12-02-2022 End: 12-02-2022 ambulatory NONE PHYSICIAN Facility:B Start: 12-02-2022 End: 12-02-2022 SAME DAY STAY APURVA SINGH MD [facility] Start: 12-02-2022 End: 12-02-2022 ambulatory No Primary Care Physician [facility] Work Phone: Start: 12-02-2022 End: 12-02-2022 Patient encounter procedure No Primary Care Physician [facility] Work Phone: Start: 11-24-2022 End: 11-24-2022 ambulatory NONE PHYSICIAN Facility:B Start: 11-24-2022 End: 11-24-2022 SAME DAY STAY MARYJANE AVILA MD [facility] Start: 11-14-2022 End: 11-14-2022 ambulatory NONE PHYSICIAN Facility:B Start: 11-12-2022 End: 11-12-2022 ambulatory NONE PHYSICIAN Facility:B Start: 11-12-2022 End: 11-12-2022 SAME DAY STAY MARYJANE AVILA MD [facility] Start: 11-11-2022 End: 11-11-2022 ambulatory NONE PHYSICIAN Facility:B Start: 11-11-2022 End: 11-11-2022 SAME DAY STAY APURVA SINGH MD [facility] Start: 11-10-2022 End: 11-14-2022 ambulatory JAIDA JUAREZ MANUFACTURING TECHNOLOGY ANALYST-CNM Facility:B Start: 11-10-2022 End: 11-14-2022 Outreach Lab JAIDA JUAREZ MANUFACTURING TECHNOLOGY ANALYST-CNM [facility] Start: 11-09-2022 Non-patient / Non-visit No [facility] Physician [facility] Start: 11-09-2022 End: 11-09-2022 ambulatory No Primary Care Physician [facility] Work Phone: Start: 11-09-2022 End: 11-09-2022 Patient encounter procedure No Primary Care Physician [facility] Work Phone: Start: 10-29-2022 End: 10-29-2022 ambulatory NONE PHYSICIAN Facility:B Start: 10-29-2022 End: 10-29-2022 Patient encounter procedure APURVA SINGH MD [facility] Start: 10-27-2022 End: 10-27-2022 ambulatory NONE PHYSICIAN Facility:B Start: 10-15-2022 End: 10-15-2022 ambulatory NONE PHYSICIAN Facility:B Start: 10-07-2022 End: 10-07-2022 ambulatory APURVA SINGH MD Facility:B Start: 10-07-2022 End: 10-07-2022 Patient encounter procedure APURVA SINGH MD [facility] Start: 10-06-2022 End: 10-06-2022 Subsequent hospital visit by physician Beatriz Rodgers MD Work Phone: [facility] Comment on above: Genetic testing Start: 08-26-2022 End: 08-30-2022 Outreach Lab APURVA SINGH MD [facility] Start: 07-19-2022 End: 07-19-2022 Patient encounter procedure MARYJANE AVILA MD [facility] Start: 07-03-2022 End: 07-23-2023 Lab-Standing Order MARYJANE AVILA MD [facility] Start: 04-26-2022 End: 04-26-2022 [facility] Start: 04-26-2022 End: 04-26-2022 Patient encounter procedure APURVA SINGH MD [facility] Start: 04-15-2022 End: 04-15-2022 Patient encounter procedure APURVA SINGH MD [facility] Start: 03-22-2022 End: 03-22-2022 [facility] Start: 02-18-2022 End: 02-22-2022 Outreach Lab APURVA SINGH MD [facility] Start: 11-10-2021 End: 11-12-2021 Evaluation and management of inpatient BERONICA FLOYD MD [facility] Start: 11-02-2021 End: 11-06-2021 Outreach Lab APURVA SINGH MD [facility] Start: 10-19-2021 End: 10-19-2021 SAME DAY STAY BERONICA FLOYD MD [facility] Start: 10-09-2021 End: 10-09-2021 SAME DAY STAY CHAU HOOD [facility] Start: 10-01-2021 End: 10-01-2021 SAME DAY STAY APURVA SINGH MD [facility] Start: 09-15-2021 End: 09-15-2021 Patient encounter procedure APURVA SINGH MD [facility] Start: 09-10-2021 End: 09-10-2021 Patient encounter procedure Dianelys Marroquin APRN.CNP Work Phone: [facility] Comment on above: Lower abdominal pain (Primary Dx); Vaginal bleeding in , third trimester Start: 09-07-2021 End: 09-07-2021 SAME DAY STAY BERONICA FLOYD MD [facility] Start: 08-28-2021 End: 09-01-2021 Outreach Lab APURVA SINGH MD [facility] Start: 08-27-2021 End: 08-31-2021 Outreach Lab APURVA SINGH MD [facility] Start: 08-27-2021 End: 08-27-2021 Patient encounter procedure APURVA SINGH MD [facility] Start: 08-26-2021 End: 08-26-2021 SAME DAY STAY BERONICA FLOYD MD [facility] Start: 07-20-2021 End: 07-20-2021 Patient encounter procedure APURVA SINGH MD [facility] Start: 06-29-2021 End: 07-03-2021 Outreach Lab MARYJANE AVILA MD [facility] Start: 06-14-2021 End: 06-14-2021 Emergency department patient visit NEMESIO GANN MD [facility] Start: 06-03-2021 End: 06-03-2021 Patient encounter procedure [facility] Start: 06-03-2021 End: 06-03-2021 Emergency department patient visit [facility] Start: 05-11-2021 End: 05-11-2021 SAME DAY STAY APURVA SINGH MD [facility] Start: 05-01-2021 End: 05-01-2021 Patient encounter procedure APURVA SINGH MD [facility] Start: 04-14-2021 End: 04-14-2021 Emergency department patient visit [facility] Start: 04-13-2021 End: 04-13-2021 Emergency department patient visit [facility] Start: 04-13-2021 End: 04-13-2021 Patient encounter procedure KIKI HIGHTOWER MANUFACTURING TECHNOLOGY ANALYST-SALES REPRESENTATIVE GRAPHIC ART [facility] Start: 03-31-2021 End: 04-04-2021 Outreach Lab MARYJANE AVILA MD [facility] Start: 03-30-2021 End: 04-17-2022 Lab-Standing Order APURVA SINGH MD [facility] Start: 02-12-2021 End: 02-12-2021 Patient encounter procedure APURVA SINGH MD [facility] Start: 02-09-2021 End: 02-13-2021 Outreach Lab APURVA SINGH MD [facility] Start: 01-25-2021 End: 01-25-2021 Emergency department patient visit NEMESIO GANN MD [facility] Start: 01-06-2021 End: 01-10-2021 Outreach Lab CHAU GARCIA APRN-CEDRICM [facility] Start: 10-23-2019 End: 01-14-2021 Lab-Standing Order DR APURVA SINGH MD [facility] Procedures Date Procedure Procedure Detail Performing Clinician Start: 10-09-2024 X-ray of chest, PA a nd lateral views No Primary Care Physician Start: 10-08-2024 Radiologic exam ches t 2 views Quirino Cruz MANUFACTURING TECHNOLOGY ANALYST.SALES REPRESENTATIVE GRAPHIC ART Work Phone: Start: 10-07-2024 X-ray of foot, three or more views No Primary Care Physician Start: 10-07-2024 X-ray of ankle, thre e or more views No Primary Care Physician Start: 05-14-2024 Radex ankle complete minimum 3 views Yasmin CANDELARIA Work Phone: Start: 04-19-2024 Radex ankle complete minimum 3 views Naye Hancock APRN.SALES REPRESENTATIVE GRAPHIC ART Work Phone: Start: 03-12-2024 Radiologic exam ches t 2 views George Montes MD Work Phone: Start: 02-14-2023 section APURVA SINGH MD Start: 11-09-2022 Urine culture No Primar y Care Physician Start: 04-26-2022 Transvaginal echography Start: 11-10-2021 section APURVA SINGH MD Start: 04-14-2021 Plain X-ray of femur Start: 06-05-2020 section CHAU HOOD Start: 07-16-2019 section CHAU JOHNNY HOOD Start: 11-21-2017 delivery - delivered (finding) CHAU HOOD H/O: section Previous c esarean section( Confirmed ) BERONICA FLOYD MD H/O: section Previous c esarean delivery affecting No Primary Care Physician Comment on above: x5 H/O: surgery Status post bila teral salpingectomy No Primary Care Physician Plan of Treatment Date Care Activity Detail Author Start: 02-28-2025 End: 02-28-2025 Patient encounter procedure 02/28/2025 1:00 PM EST Office Visit [facility] [address], [place] [phone] Samaria Ocasio MD [address] [place], [place] [phone] Est care [facility] Comment on above: Est care Start: 10-15-2024 Influenza vaccination Influenza Vacc ine (#1) [facility] Start: 10-07-2024 [facility] Start: 06-11-2024 End: 06-11-2024 Patient encounter procedure 06/11/2024 1:45 PM EDT Office Visit Podiatry [address] [place], [place] [phone] Dennis Mario [address] [place], [place] [phone] Foot pain, left [M79.672] Podiatry Comment on above: Foot pain, left [M79 .672] Start: 05-15-2024 End: 05-15-2024 Patient encounter procedure 05/15/2024 2:00 PM EDT Office Visit [facility] [address] [place] [address] Justin Mckenzie V, DO [address] [place] [address] Foot pain, left [M79.672] [facility] Comment on above: Foot pain, left [M79 .672] Start: 12-20-2023 RSV Vaccine (1 - Ris k 1-dose series) RSV Vaccine (1 - Risk 1-dose series) [facility] Start: 10-16-2023 Covid-19 Vaccine ( season) Covid-19 Vaccine ( season) [facility] Start: 10-16-2023 Influenza vaccination Influenza Vacc ine (#1) [facility] Start: 02-14-2023 Behavioral Health Screening Behavioral Health Screening [facility] Start: 02-02-2023 Nonstress test [facility] Start: 02-02-2023 Obstetric monitoring [facility] Start: 02-02-2023 [facility] Start: 02-02-2023 Vital signs measurements [facility] Start: 02-02-2023 Patient discharge [facility] Start: 12-02-2022 Nonstress test [facility] Start: 12-02-2022 Obstetric monitoring [facility] Start: 12-02-2022 Vital signs measurements [facility] Start: 12-02-2022 [facility] Start: 12-02-2022 Patient discharge [facility] Start: 11-09-2022 Iv infusion ther pro ph addl sequential to 1 hr TX/PROPH/DG ADDL SEQ IV INF [facility] Start: 11-09-2022 Iv infusion therapy/prophylaxis /dx 1st to 1 hr THER/PROPH/DIAG IV INF INIT [facility] Start: 11-09-2022 [facility] Start: 11-09-2022 Nonstress test [facility] Start: 11-09-2022 Obstetric monitoring [facility] Start: 11-09-2022 Vital signs measurements [facility] Start: 11-09-2022 [facility] Start: 11-09-2022 Patient discharge [facility] Start: 10-15-2022 Covid-19 Vaccine ( season) Covid-19 Vaccine ( season) [facility] Start: 10-15-2022 FLU (#1) FLU (#1) [facility] Start: 06-16-2022 Tetanus Diphtheria a nd Pertussis Vaccines (7 - Td or Tdap) Tetanus Diphtheria and Pertussis Vaccines (7 - Td or Tdap) [facility] Start: 06-16-2022 Urine microalbumin profile DTaP,Tdap,Td Vaccine (7 - Td or Tdap) [facility] Start: 03-22-2022 Urine test [facility] Start: 2021 Microscopic observat ion [Identifier] in Cervix by Cyto stain Pap Smear [facility] Start: 2021 Screening for malign ant neoplasm of cervix Cervical Cancer Screening [facility] Start: 10-15-2021 Influenza vaccination INFLUENZA (#1) [facility] Start: 06-03-2021 External ecg scannin g analysis report ECG MONIT/REPRT UP TO 48 HRS [facility] Work Phone: Start: 06-03-2021 Xtrnl ecg & 48 hr recording ECG MONIT/REPRT UP TO 48 HRS [facility] Work Phone: Start: 11-27-2019 Urine microalbumin profile DTAP,TDAP,TD (1 - Tdap) [facility] Start: 2018 Anxiety Screening Anxiety Screening [facility] Start: 2018 CHLAMYDIA SCREENING (18-24) CHLAMYDIA SCREENING (18-) [facility] Start: 2018 Depression Screening Depression Scre ening [facility] Start: 2018 GC (GONORRHEA) SCREE MANUEL (18-24) GC (GONORRHEA) SCREENING (18-24) [facility] Start: 2018 Hearing Screening Hearing Screening [facility] Start: 2018 HEPATITIS C SCREENING HEPATITIS C [facility] Start: 2018 Hepatitis C screening Hepatitis C [facility] Start: 2018 HIV SCREENING HIV SCREENING [facility] Start: 2018 HIV screening HIV Screening [facility] Start: 2018 Screening for Chlamy hiram trachomatis Chlamydia Screening (18-24) [facility] Start: 2016 MenB (1 of 2 - MenB 2-Dose Series Bexsero) MenB (1 of 2 - MenB 2-Dose Series Bexsero) [facility] Start: 2016 Meningococcal B Vacc ine (1 of 2 - Standard) Meningococcal B Vaccine (1 of 2 - Standard) [facility] Start: 2016 Meningococcal B Vacc ine: Consider Based On Risk (1 of 2 - Patient Seeks Protection) Meningococcal B Vaccine: Consider Based On Risk (1 of 2 - Patient Seeks Protection) [facility] Start: 11-27-2015 HPV Vaccine (1 - 3-d ose series) HPV Vaccine (1 - 3-dose series) [facility] Start: 11-27-2015 Vision Screening Vision Screening [facility] Start: 2014 PEDS TO ADULT TRANSI TION ANNUAL ASSESSMENT PEDS TO ADULT TRANSITION ANNUAL ASSESSMENT [facility] Start: 2012 Adult depression screening assessment DEPRESSION SCREENING [facility] Start: 2012 PEDS TO ADULT TRANSI TION INITIAL DISCUSSION PEDS TO ADULT TRANSITION INITIAL DISCUSSION [facility] Start: 11-27-2011 HPV (1 - 2-dose series) HPV (1 - 2-d ose series) [facility] Start: 11-27-2011 HPV VACCINE (1 - 2-d ose series) HPV VACCINE (1 - 2-dose series) [facility] Start: 2010 MENINGOCOCCAL B: Consider based on risk (1 of 2 - Risk Bexsero 2-dose series) MENINGOCOCCAL B: Consider based on risk (1 of 2 - Risk Bexsero 2-dose series) [facility] Start: 05-27-2001 COVID-19 (#1) COVID-19 (#1) [facility] Start: 05-27-2001 COVID-19 VACCINE (#1) COVID-19 VACCI NE (#1) [facility] Bilirubin measuremen t, urine [facility] COVID & INFLUENZA A/ B & RSV PCR, ROUTINE COVID & INFLUENZA A/B & RSV PCR, ROUTINE Microbiology Routine Acute cough 03/12/2024 2:42 PM EST [facility] Work Phone: 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 Lab Routine Genetic testing 10/06/2022 4:50 PM EDT [facility] Work Phone: Hemoglobin [Presence ] in Urine [facility] Measurement of keton es in urine using dipstick [facility] Microscopic urinalysis [facility] Patient Education [facility] Work Phone: Patient referral [facility] Work Phone: pH of Urine [facility] Specific gravity of Urine [facility] Urinalysis, blood, qualitative [facility] Urine dipstick for glucose [facility] Urine dipstick for leukocyte esterase [facility] Urine dipstick for nitrite [facility] Urine dipstick for protein [facility] Urine examination [facility] Urine microscopy: epithelial cells [facility] Urine Microscopy: wh ite cells [facility] Urobilinogen [Presen ce] in Urine [facility] Immunizations Immunization Date Immunization Notes Care Provider Whitney hull 06-16-2012 hepatitis A vaccine, pediatric/adolescent dosage, 2 dose schedule Beatriz Rodgers MD Work Phone: [facility] 06-16-2012 meningococcal polysaccharide (groups A, C, Y and W-135) diphtheria toxoid conjugate vaccine (MCV4P) Beatriz Rodgers MD Work Phone: [facility] 06-16-2012 tetanus toxoid, redu cecilia diphtheria toxoid, and acellular pertussis vaccine, adsorbed Beatriz Rodgers MD Work Phone: [facility] 12-21-2010 influenza virus vacc ine, live, attenuated, for intranasal use Beatriz Rodgers MD Work Phone: [facility] 12-21-2010 influenza virus vacc ine, unspecified formulation Naye Hancock APRN.[facility] Work Phone: [facility] 05-11-2006 diphtheria, tetanus toxoids and acellular pertussis vaccine Beatriz Rodgers MD Work Phone: [facility] 05-11-2006 hepatitis A vaccine, pediatric/adolescent dosage, 2 dose schedule Beatriz Rodgers MD Work Phone: [facility] 05-11-2006 measles, mumps, rube lla, and varicella virus vaccine Beatriz Rodgers MD Work Phone: [facility] 05-11-2006 poliovirus vaccine, inactivated Beatriz Rodgers MD Work Phone: [facility] 12-11-2003 diphtheria, tetanus toxoids and acellular pertussis vaccine Beatriz Rodgers MD Work Phone: [facility] 07-19-2003 pneumococcal conjuga te vaccine, 7 valent Beatriz Rodgers MD Work Phone: [facility] 07-19-2003 poliovirus vaccine, inactivated Beatriz Rodgers MD Work Phone: [facility] 07-19-2003 varicella virus vaccine Tianna Rodgers MD Work Phone: [facility] 02-20-2003 diphtheria, tetanus toxoids and acellular pertussis vaccine Beatriz Rodgers MD Work Phone: [facility] 02-20-2003 haemophilus influenz ae type b vaccine, PRP-T conjugate Beatriz Rodgers MD Work Phone: [facility] 02-20-2003 hepatitis B vaccine, pediatric or pediatric/adolescent dosage Beatriz Rodgers MD Work Phone: [facility] 02-20-2003 measles, mumps and rubella virus vaccine Beatriz Rodgers MD Work Phone: [facility] 02-20-2003 poliovirus vaccine, inactivated Beatriz Rodgers MD Work Phone: [facility] 11-17-2001 diphtheria, tetanus toxoids and acellular pertussis vaccine Beatriz Rodgers MD Work Phone: [facility] 11-17-2001 haemophilus influenz ae type b vaccine, PRP-T conjugate Beatriz Rodgers MD Work Phone: [facility] 11-17-2001 pneumococcal conjuga te vaccine, 7 valent Beatriz Rodgers MD Work Phone: [facility] 11-17-2001 poliovirus vaccine, inactivated Beatriz Rodgers MD Work Phone: [facility] 05-01-2001 diphtheria, tetanus toxoids and acellular pertussis vaccine Beatriz Rodgers MD Work Phone: [facility] 05-01-2001 haemophilus influenz ae type b vaccine, PRP-T conjugate Beatriz Rodgers MD Work Phone: [facility] 05-01-2001 hepatitis B vaccine, pediatric or pediatric/adolescent dosage Beatriz Rodgers MD Work Phone: [facility] 2000 hepatitis B vaccine, pediatric or pediatric/adolescent dosage Beatriz Rodgers MD Work Phone: [facility] Payers Date Payer Category Payer Self-pay [id number] 2022 Medicaid [id number] 2022 [facility] [id number] 2022-Present [address] [place] [address] [id number]. [id number] 2014 Unknown [id number] 2014 Unknown [id number] 2012 Medicaid [facility] MED[facility] [id number] 2012-Present [phone] [address] [place] [address] Medicaid [id number]. [id number] 2000 Unknown [id number] 2.16.840.1.708971.3.579.2.627 2000 Unknown [id number] 2.16.840.1.173588.3.579.2.627 2000 Unknown [id number] 2.16.840.1.723334.3.579.2.627 2000 Unknown [id number] 2.16.840.1.365650.3.579.2.627 2000 Unknown [id number] 2.16.840.1.174359.3.579.2.627 2000 Unknown [id number] 2.16.840.1.997013.3.579.2.627 2000 Unknown [id number] 2.16.840.1.334699.3.579.2.627 2000 Unknown [id number] 2.16.840.1.562114.3.579.2.627 2000 Unknown [id number] 2.16.840.1.287752.3.579.2.627 2000 Unknown [id number] 2.16.840.1.522664.3.579.2.627 2000 Unknown [id number] 2.16.840.1.639791.3.579.2.627 2000 Unknown [id number] 2.16.840.1.030403.3.579.2.627 2000 Unknown [id number] 2.16.840.1.677857.3.579.2.627 2000 Unknown [id number] 2.16.840.1.224531.3.579.2.627 2000 Unknown [id number] 2.16.840.1.381339.3.579.2.627 2000 Unknown [id number] 2.16.840.1.127297.3.579.2.627 2000 Unknown [id number] 2.16.840.1.604114.3.579.2.627 2000 Unknown [id number] 2.16.840.1.476384.3.579.2.627 2000 Unknown [id number] 2.16.840.1.558663.3.579.2.627 2000 Unknown [id number] 2.16.840.1.594694.3.579.2.627 2000 Unknown [id number] 2.16.840.1.413763.3.579.2.627 2000 Unknown [id number] 2.16.840.1.337887.3.579.2.627 2000 Unknown [id number] 2.16.840.1.921007.3.579.2.627 2000 Unknown [id number] 2.16.840.1.292433.3.579.2.627 2000 Unknown [id number] 2.16.840.1.387566.3.579.2.627 2000 Unknown [id number] 2.16.840.1.923494.3.579.2.627 2000 Unknown [id number] 2.16.840.1.188902.3.579.2.627 2000 Unknown [id number] 2.16.840.1.180080.3.579.2.627 2000 Unknown [id number] 2.16.840.1.259776.3.579.2.627 2000 Unknown [id number] 2.16.840.1.037037.3.579.2.627 2000 Unknown [id number] 2.16.840.1.371411.3.579.2.627 2000 Unknown [id number] 2.16.840.1.587946.3.579.2.627 2000 Unknown [id number] 2.16.840.1.744704.3.579.2.627 2000 Unknown [id number] 2.16.840.1.534994.3.579.2.627 2000 Unknown [id number] 2.16.840.1.609232.3.579.2.627 2000 Unknown [id number] 2.16.840.1.981373.3.579.2.627 2000 Unknown [id number] 2.16.840.1.734583.3.579.2.627 2000 Unknown [id number] 2.16.840.1.989803.3.579.2.627 2000 Unknown [id number] 2.16.840.1.268392.3.579.2.479 2000 Unknown [id number] 2.16.840.1.277021.3.579.2.479 2000 Unknown [id number] 2.16.840.1.255656.3.579.2.479 2000 Unknown [id number] 2.16.840.1.199977.3.579.2.479 2000 Unknown [id number] 2.16.840.1.242468.3.579.2.479 2000 Unknown [id number] 2.16.840.1.044560.3.579.2.479 2000 Unknown [id number] 2.16.840.1.878574.3.579.2.479 2000 Unknown [id number] 2.16.840.1.912284.3.579.2.479 2000 Unknown [id number] 2.16.840.1.644898.3.579.2.479 2000 Unknown [id number] 2.16.840.1.552195.3.579.2.479 2000 Unknown [id number] 2.16.840.1.893477.3.579.2.479 2000 Unknown [id number] 2.16.840.1.980020.3.579.2.479 2000 Unknown [id number] 2.16.840.1.007065.3.579.2.479 2000 Unknown [id number] 2.16.840.1.573434.3.579.2.479 2000 Unknown [id number] 2.16.840.1.405164.3.579.2.479 2000 Unknown [id number] 2.16.840.1.289912.3.579.2.479 2000 Unknown [id number] 2.16.840.1.928882.3.579.2.479 2000 Unknown [id number] 2.16.840.1.485706.3.579.2.479 2000 Unknown [id number] 2.16.840.1.056496.3.579.2.479 2000 Unknown [id number] 2.16.840.1.934319.3.579.2.479 2000 Unknown [id number] 2.16.840.1.090707.3.579.2.479 2000 Unknown [id number] 2.840.1.028925.3.579.2.479 2000 Unknown [id number] 2.840.1.603027.3.579.2.479 2000 Unknown [id number] 2.840.1.897306.3.579.2.479 2000 Unknown [id number] 2.840.1.788675.3.579.2.479 2000 Unknown [id number] 2.840.1.716494.3.579.2.479 2000 Unknown [id number] 2.840.1.562122.3.579.2.479 2000 Unknown [id number] 2.840.1.357034.3.579.2.479 2000 Unknown [id number] 2.840.1.607051.3.579.2.479 2000 Unknown [id number] 2.840.1.568844.3.579.2.479 Unknown [id number] 2.840.1.181345.3.579.2.462 Unknown [id number] 2.840.1.316476.3.579.2.462 Unknown [id number] 2.16840.1.438823.3.579.2.462 Unknown [id number] 2.16840.1.924319.3.579.2.462 Unknown [id number] 2.840.1.578939.3.579.2.462 Unknown [id number] 2.16840.1.874303.3.579.2.462 Unknown [id number] 2.16.840.1.100577.3.579.2.462 Unknown [id number] 2.16.840.1.618229.3.579.2.462 Social History Date Type Detail Facility Start: 06-26-2019 End: 10-09-2024 Never smoked tobacco (finding) [facility] Start: 2000 Sex Assigned At Female A [facility] Start: 06-03-2021 End: 04-26-2022 Tobacco smoking status INIS Unknown if ever smoked [facility] Start: 01-15-2019 None [facility] Start: 02-21-2019 With Family [facility] Start: 04-11-2013 End: 08-30-2023 Tobacco use and exposure Smokeless tobacco non-user [facility] Work Phone: Start: 09-10-2021 End: 10-08-2024 Alcohol intake Lifetime non-drinker (finding) [facility] Start: 09-10-2021 History SDOH Alcohol Frequency 1 [facility] Start: 11-02-2018 [facility] Start: 2000 Sex Assigned At Not on file [facility] Start: 08-31-2021 End: 09-10-2021 Exposure to SARS-CoV-2 (event) Not sure [facility] Start: 09-20-2018 Alcohol intake Not Asked [facility] Start: 08-30-2023 End: 05-15-2024 Gender identity Not on file [facility] Start: 08-30-2023 End: 05-15-2024 History of Social function [facility] Start: 01-16-2012 National Score (1-100), lower number is lower risk Not on file [facility] NEGATED: Highlighted row [facility] Medical Equipment Procedure Code Equipment Code Equipment Origin al Text Equipment Identifier Dates See Instructions , Check 4x/Day, # 1 EA, 0 Refill(s), Pharmacy: [facility] #[id number], Encounter for supervision of normal in multigravida in second trimester Previous section, 170.2, cm, 12/20/22 10:27:00 EST, Height, 118.2, kg, 12/16/22 9:12:00 EDT, Dosing Weight Start: 12-20-2022 See Instructions , Check 4x/Day, # 1 EA, 0 Refill(s), Pharmacy: [facility] #[id number], Encounter for supervision of normal in multigravida in second trimester Previous section, 170.2, cm, 12/20/22 10:27:00 EST, Height, 118.2, kg, 12/16/22 9:12:00 EDT, Dosing Weight Start: 12-20-2022 See Instructions , Check 4x/Day, # 1 EA, 0 Refill(s), Pharmacy: [facility] #[id number], Encounter for supervision of normal in multigravida in second trimester Previous section, 170.2, cm, 12/20/22 10:27:00 EST, Height, 118.2, kg, 12/16/22 9:12:00 EDT, Dosing Weight Start: 12-20-2022 See Instructions , Check 4x/Day, # 1 EA, 0 Refill(s), Pharmacy: [facility] #[id number], Encounter for supervision of normal in multigravida in second trimester Previous section, 170.2, cm, 12/20/22 10:27:00 EST, Height, 118.2, kg, 12/16/22 9:12:00 EDT, Dosing Weight Start: 12-20-2022 See Instructions , Check 4x/Day, # 100 EA, 2 Refill(s), Pharmacy: [facility] #[id number], Encounter for supervision of normal in multigravida in third trimester GDM, class A2, 160, cm, 01/04/23 11:32:00 EST, Height, 120, kg, 01/04/23 11:32:00 EST, Dosing Weight Start: 01-08-2023 See Instructions , Check 4x/Day, # 1 EA, 0 Refill(s), Pharmacy: [facility] #[id number], Encounter for supervision of normal in multigravida in second trimester Previous section, 170.2, cm, 12/20/22 10:27:00 EST, Height, 118.2, kg, 12/16/22 9:12:00 EDT, Dosing Weight Start: 12-20-2022 See Instructions , Check 4x/Day, # 100 EA, 2 Refill(s), Pharmacy: [facility] #[id number], Encounter for supervision of normal in multigravida in third trimester GDM, class A2, 160, cm, 01/04/23 11:32:00 EST, Height, 120, kg, 01/04/23 11:32:00 EST, Dosing Weight Start: 01-08-2023 See Instructions , Check 4x/Day, # 1 EA, 0 Refill(s), Pharmacy: [facility] #[id number], Encounter for supervision of normal in multigravida in second trimester Previous section, 170.2, cm, 12/20/22 10:27:00 EST, Height, 118.2, kg, 12/16/22 9:12:00 EDT, Dosing Weight Start: 12-20-2022 See Instructions , Check 4x/Day, # 100 EA, 2 Refill(s), Pharmacy: [facility] #[id number], Encounter for supervision of normal in multigravida in third trimester GDM, class A2, 160, cm, 01/04/23 11:32:00 EST, Height, 120, kg, 01/04/23 11:32:00 EST, Dosing Weight Start: 01-08-2023 See Instructions , Check 4x/Day, # 1 EA, 0 Refill(s), Pharmacy: [facility] #[id number], Encounter for supervision of normal in multigravida in second trimester Previous section, 170.2, cm, 12/20/22 10:27:00 EST, Height, 118.2, kg, 12/16/22 9:12:00 EDT, Dosing Weight Start: 12-20-2022 See Instructions , Check 4x/Day, # 100 EA, 2 Refill(s), Pharmacy: [facility] #[id number], Encounter for supervision of normal in multigravida in third trimester GDM, class A2, 160, cm, 01/04/23 11:32:00 EST, Height, 120, kg, 01/04/23 11:32:00 EST, Dosing Weight Start: 01-08-2023 See Instructions , Check 4x/Day, # 1 EA, 0 Refill(s), Pharmacy: [facility] #[id number], Encounter for supervision of normal in multigravida in second trimester Previous section, 170.2, cm, 12/20/22 10:27:00 EST, Height, 118.2, kg, 12/16/22 9:12:00 EDT, Dosing Weight Start: 12-20-2022 See Instructions , Check 4x/Day, # 100 EA, 2 Refill(s), Pharmacy: [facility] #[id number], Encounter for supervision of normal in multigravida in third trimester GDM, class A2, 160, cm, 01/04/23 11:32:00 EST, Height, 120, kg, 01/04/23 11:32:00 EST, Dosing Weight Start: 01-08-2023 See Instructions , Check 4x/Day, # 1 EA, 0 Refill(s), Pharmacy: [facility] #[id number], Encounter for supervision of normal in multigravida in second trimester Previous section, 170.2, cm, 12/20/22 10:27:00 EST, Height, 118.2, kg, 12/16/22 9:12:00 EDT, Dosing Weight Start: 12-20-2022 See Instructions , Check 4x/Day, # 100 EA, 2 Refill(s), Pharmacy: [facility] #[id number], Encounter for supervision of normal in multigravida in third trimester GDM, class A2, 160, cm, 01/04/23 11:32:00 EST, Height, 120, kg, 01/04/23 11:32:00 EST, Dosing Weight Start: 01-08-2023 See Instructions , Check 4x/Day, # 1 EA, 0 Refill(s), Pharmacy: [facility] #[id number], Encounter for supervision of normal in multigravida in second trimester Previous section, 170.2, cm, 12/20/22 10:27:00 EST, Height, 118.2, kg, 12/16/22 9:12:00 EDT, Dosing Weight Start: 12-20-2022 See Instructions , Check 4x/Day, # 100 EA, 2 Refill(s), Pharmacy: [facility] #[id number], Encounter for supervision of normal in multigravida in third trimester GDM, class A2, 160, cm, 01/04/23 11:32:00 EST, Height, 120, kg, 01/04/23 11:32:00 EST, Dosing Weight Start: 01-08-2023 See Instructions , Check 4x/Day, # 1 EA, 0 Refill(s), Pharmacy: [facility] #[id number], Encounter for supervision of normal in multigravida in second trimester Previous section, 170.2, cm, 12/20/22 10:27:00 EST, Height, 118.2, kg, 12/16/22 9:12:00 EDT, Dosing Weight Start: 12-20-2022 See Instructions , Check 4x/Day, # 100 EA, 2 Refill(s), Pharmacy: [facility] #[id number], Encounter for supervision of normal in multigravida in third trimester GDM, class A2, 160, cm, 01/04/23 11:32:00 EST, Height, 120, kg, 01/04/23 11:32:00 EST, Dosing Weight Start: 01-08-2023 See Instructions , Check 4x/Day, # 1 EA, 0 Refill(s), Pharmacy: [facility] #[id number], Encounter for supervision of normal in multigravida in second trimester Previous section, 170.2, cm, 12/20/22 10:27:00 EST, Height, 118.2, kg, 12/16/22 9:12:00 EDT, Dosing Weight Start: 12-20-2022 See Instructions , Check 4x/Day, # 100 EA, 2 Refill(s), Pharmacy: [facility] #[id number], Encounter for supervision of normal in multigravida in third trimester GDM, class A2, 160, cm, 01/04/23 11:32:00 EST, Height, 120, kg, 01/04/23 11:32:00 EST, Dosing Weight Start: 01-08-2023 See Instructions , Check 4x/Day, # 1 EA, 0 Refill(s), Pharmacy: [facility] #[id number], Encounter for supervision of normal in multigravida in second trimester Previous section, 170.2, cm, 12/20/22 10:27:00 EST, Height, 118.2, kg, 12/16/22 9:12:00 EDT, Dosing Weight Start: 12-20-2022 See Instructions , Check 4x/Day, # 100 EA, 2 Refill(s), Pharmacy: [facility] #[id number], Encounter for supervision of normal in multigravida in third trimester GDM, class A2, 160, cm, 01/04/23 11:32:00 EST, Height, 120, kg, 01/04/23 11:32:00 EST, Dosing Weight Start: 01-08-2023 See Instructions , Check 4x/Day, # 1 EA, 0 Refill(s), Pharmacy: [facility] #[id number], Encounter for supervision of normal in multigravida in second trimester Previous section, 170.2, cm, 12/20/22 10:27:00 EST, Height, 118.2, kg, 12/16/22 9:12:00 EDT, Dosing Weight Start: 12-20-2022 See Instructions , Check 4x/Day, # 100 EA, 2 Refill(s), Pharmacy: [facility] #[id number], Encounter for supervision of normal in multigravida in third trimester GDM, class A2, 160, cm, 01/04/23 11:32:00 EST, Height, 120, kg, 01/04/23 11:32:00 EST, Dosing Weight Start: 01-08-2023 See Instructions , Check 4x/Day, # 1 EA, 0 Refill(s), Pharmacy: [facility] #[id number], Encounter for supervision of normal in multigravida in second trimester Previous section, 170.2, cm, 12/20/22 10:27:00 EST, Height, 118.2, kg, 12/16/22 9:12:00 EDT, Dosing Weight Start: 12-20-2022 See Instructions , Check 4x/Day, # 100 EA, 2 Refill(s), Pharmacy: [facility] #[id number], Encounter for supervision of normal in multigravida in third trimester GDM, class A2, 160, cm, 01/04/23 11:32:00 EST, Height, 120, kg, 01/04/23 11:32:00 EST, Dosing Weight Start: 01-08-2023 See Instructions , Check 4x/Day, # 1 EA, 0 Refill(s), Pharmacy: [facility] #[id number], Encounter for supervision of normal in multigravida in second trimester Previous section, 170.2, cm, 12/20/22 10:27:00 EST, Height, 118.2, kg, 12/16/22 9:12:00 EDT, Dosing Weight Start: 12-20-2022 See Instructions , Check 4x/Day, # 100 EA, 2 Refill(s), Pharmacy: [facility] #[id number], Encounter for supervision of normal in multigravida in third trimester GDM, class A2, 160, cm, 01/04/23 11:32:00 EST, Height, 120, kg, 01/04/23 11:32:00 EST, Dosing Weight Start: 01-08-2023 See Instructions , Check 4x/Day, # 1 EA, 0 Refill(s), Pharmacy: [facility] #[id number], Encounter for supervision of normal in multigravida in second trimester Previous section, 170.2, cm, 12/20/22 10:27:00 EST, Height, 118.2, kg, 12/16/22 9:12:00 EDT, Dosing Weight Start: 12-20-2022 See Instructions , Check 4x/Day, # 100 EA, 2 Refill(s), Pharmacy: [facility] #[id number], Encounter for supervision of normal in multigravida in third trimester GDM, class A2, 160, cm, 01/04/23 11:32:00 EST, Height, 120, kg, 01/04/23 11:32:00 EST, Dosing Weight Start: 01-08-2023 See Instructions , Check 4x/Day, # 1 EA, 0 Refill(s), Pharmacy: [facility] #[id number], Encounter for supervision of normal in multigravida in second trimester Previous section, 170.2, cm, 12/20/22 10:27:00 EST, Height, 118.2, kg, 12/16/22 9:12:00 EDT, Dosing Weight Start: 12-20-2022 See Instructions , Check 4x/Day, # 100 EA, 2 Refill(s), Pharmacy: [facility] #[id number], Encounter for supervision of normal in multigravida in third trimester GDM, class A2, 160, cm, 01/04/23 11:32:00 EST, Height, 120, kg, 01/04/23 11:32:00 EST, Dosing Weight Start: 01-08-2023 See Instructions , Check 4x/Day, # 1 EA, 0 Refill(s), Pharmacy: [facility] #[id number], Encounter for supervision of normal in multigravida in second trimester Previous section, 170.2, cm, 12/20/22 10:27:00 EST, Height, 118.2, kg, 12/16/22 9:12:00 EDT, Dosing Weight Start: 12-20-2022 See Instructions , Check 4x/Day, # 100 EA, 2 Refill(s), Pharmacy: [facility] #[id number], Encounter for supervision of normal in multigravida in third trimester GDM, class A2, 160, cm, 01/04/23 11:32:00 EST, Height, 120, kg, 01/04/23 11:32:00 EST, Dosing Weight Start: 01-08-2023 See Instructions , Check 4x/Day, # 1 EA, 0 Refill(s), Pharmacy: [facility] #[id number], Encounter for supervision of normal in multigravida in second trimester Previous section, 170.2, cm, 12/20/22 10:27:00 EST, Height, 118.2, kg, 12/16/22 9:12:00 EDT, Dosing Weight Start: 12-20-2022 See Instructions , Check 4x/Day, # 120 EA, 3 Refill(s), Pharmacy: [facility] #[id number], Gestational diabetes, 160, cm, 11/21/23 9:40:00 EDT, Height, 125, kg, 02/21/23 10:34:00 EST, Dosing Weight Start: 11-21-2023 See Instructions , Check 4x/Day, # 1 EA, 0 Refill(s), Pharmacy: [facility] #[id number], Gestational diabetes, 160, cm, 11/21/23 9:40:00 EDT, Height, 125, kg, 02/21/23 10:34:00 EST, Dosing Weight Start: 11-21-2023 See Instructions , Check 4x/Day, # 120 EA, 3 Refill(s), Pharmacy: [facility] #[id number], Gestational diabetes, 160, cm, 11/21/23 9:40:00 EDT, Height, 125, kg, 02/21/23 10:34:00 EST, Dosing Weight Start: 11-21-2023 See Instructions , Check 4x/Day, # 1 EA, 0 Refill(s), Pharmacy: [facility] #[id number], Gestational diabetes, 160, cm, 11/21/23 9:40:00 EDT, Height, 125, kg, 02/21/23 10:34:00 EST, Dosing Weight Start: 11-21-2023 See Instructions , Check 4x/Day, # 120 EA, 3 Refill(s), Pharmacy: [facility] #[id number], Gestational diabetes, 160, cm, 11/21/23 9:40:00 EDT, Height, 125, kg, 02/21/23 10:34:00 EST, Dosing Weight Start: 11-21-2023 See Instructions , Check 4x/Day, # 1 EA, 0 Refill(s), Pharmacy: [facility] #[id number], Gestational diabetes, 160, cm, 11/21/23 9:40:00 EDT, Height, 125, kg, 02/21/23 10:34:00 EST, Dosing Weight Start: 11-21-2023 Functional Status Date Assessment Result Facility 12-30-2023 Functional Status Activity Betsy boo Independent [facility] 12-30-2023 Functional Status Current Home T reatments [facility] 12-23-2023 Functional Status Current Home T reatments [facility] 11-09-2023 Functional Status Independent [facility] 11-09-2023 Functional Status ID band on, Call device within reach, Bed in low position, Wheels locked, Upper/Half-Length side-rails up, Safety level maintained [facility] 02-23-2023 Functional Status Rooming in [facility] 02-23-2023 Functional Status Independent [facility] 02-22-2023 Functional Status [facility] 02-22-2023 Functional Status [facility] 02-22-2023 Functional Status [facility] 02-22-2023 Functional Status [facility] 02-22-2023 Functional Status [facility] 02-21-2023 Functional Status Sequential Com pression Device bilateral knee high applied/on [facility] 02-21-2023 Functional Status Home independently [facility] 02-10-2023 Functional Status Awake [facility] 02-10-2023 Functional Status [facility] 02-09-2023 Functional Status Maternal Activ ity Sitting in bed [facility] 02-09-2023 Functional Status [facility] 02-09-2023 Functional Status Lives with spouse [facility] 02-09-2023 Functional Status [facility] 01-13-2023 Functional Status Repositions self [facility] 01-12-2023 Functional Status Home independently [facility] 11-24-2022 Functional Status Current Home T reatments None [facility] 11-12-2022 [facility] Functional Status Standard Safet y ID band on, Call device within reach, Bed in low position, Wheels locked, Upper/Half-Length side-rails up, Phone within reach, personal items within reach, Non-Slip footwear [facility] 11-11-2022 Functional Status Repositions self [facility] 11-11-2022 Functional Status Sophia Mccann [facility] 11-11-2022 Functional Status Independent [facility] 11-12-2021 Functional Status Rooming in [facility] 11-12-2021 Functional Status [facility] 11-11-2021 Functional Status bilateral knee high [facility] 11-11-2021 Functional Status [facility] 11-11-2021 Functional Status [facility] 11-11-2021 Functional Status Sophia Mccann [facility] 11-11-2021 Functional Status [facility] 11-10-2021 Functional Status Sophia Mccann [facility] 11-10-2021 Functional Status Sophia Mccann [facility] 11-10-2021 Functional Status Maintained, More than 8 hours [facility] 11-10-2021 Functional Status Sophia Mccann [facility] 10-19-2021 Functional Status Awake [facility]ia Mccann [facility] 06-14-2021 Functional Status Sophia Mccann [facility] 06-14-2021 Functional Status Sophia Mccann [facility] 07-04-2014 Are you deaf, or do you have serious difficulty hearing No 07/04/2014 5:49 PM Danyelle Trevizo RN No [facility] 07-04-2014 Are you blind, or do you have serious difficulty seeing, even when wearing glasses No 07/04/2014 5:49 PM Danyelle Trevizo RN No [facility] 07-04-2014 Do you have serious difficulty walking or climbing stairs No 07/04/2014 5:49 PM Danyelle Trevizo RN No [facility] 07-04-2014 Do you have difficul ty dressing or bathing No 07/04/2014 5:49 PM Danyelle Trevizo RN No [facility] Mental Status Date Assessment Result Facility 12-30-2023 Mental Status Orientation Oriented x 4 [facility] 11-09-2023 Mental Status Orientation Oriented x 4 [facility] 11-09-2023 Mental Status [facility] 02-12-2023 Mental Status Orientation Oriented x 4 [facility] 01-13-2023 Mental Status Orientation Oriented x 4 [facility] 11-12-2022 Mental Status Orientation Oriented x 4 [facility] 11-12-2021 Mental Status Oriented x 4 [facility] 11-11-2021 Mental Status [facility] 11-11-2021 Mental Status [facility] [facility] [place] 06-14-2021 Mental Status [facility] [place] 06-14-2021 Mental Status [facility] [place] 06-03-2021 Cognitive function Level Of Cons ciousness Awake;Alert;Appropriate [facility] Work Phone: 07-04-2014 Because of a physica l, mental, or emotional condition, do you have serious difficulty concentrating, remembering, or making decisions No 07/04/2014 5:49 PM EDT Danyelle Silver RN No [facility] Clinical Notes 09-01-2005 to 10-09-2024 Amando Mckenzie Tech - 10/08/2024 4:20 PM Quirino Dillard APRN.SALES REPRESENTATIVE GRAPHIC ART - 10/08/2024 4:04 PM Quirino Dillard APRN.SALES REPRESENTATIVE GRAPHIC ART - 06/05/2024 10:41 AM EDTPatient InstructionsLaboratoryLaboratory Note Date & Type Note Facility 10-09-2024 Discharge summary [facility] 10-09-2024 Radiology Diagnostic study note [facility] Imaging Services [address] [place] [address] Chest PA and Lateral MR#: [id number] Acct: [id number] Name: LESTER INFANTE Rep #: [id number] : 2000 F 23 From: Joby Ngo MD PCP: Care Physician,No Primary Status: REG ER Study:Chest PA and Lateral Date of Exam: 10/09/24 Exam# [id number] Ordering Dr: Em Oh DO PROCEDURE: CHEST PA AND LATERAL 10/09/2024 REASON FOR EXAM: COUGH TECHNIQUE: CHEST PA AND LATERAL COMPARISON: None FINDINGS: Hardware: None Heart: The heart size is normal. Mediastinum: The mediastinal contour is unremarkable. Lungs: The lungs are clear. Bones: The bones are unremarkable. RAD/Chest PA and Lateral IMPRESSION: NEGATIVE CHEST Reading Location: [id number] CC: Dr. Bill Oh, DO; No Primary Care Physician ~ Mud Analysis Supervisor: Signed [facility] 10-08-2024 History of Presen t illness Narrative Radiology Service Progress Note PATIENT NAME: Lester Infante DATE OF SERVICE: October 08, 2024 TIME: 4:34 PM PATIENT IDENTITY VERIFICATION COMPLETED USING TWO [...] PATIENT PRESENTS WITH AN IMPLANTABLE OR ATTACHED TEACHER TUTOR: No RADIOLOGY DEPARTMENT: General X-ray: Exam(s) Completed: Chest X-Ray PERIPHERAL IV DATA: Not applicable SIGNED BY: Manan Alcocer October 08, 2024 4:34 PM documented in this encounter [facility] 10-08-2024 Note HNO ID: [id number] Author: AMANDO MCKENZIE Tech Service: ? Author Type: Photographic Processor Type: Progress Notes Filed: 10/08/2024 16:34 Note Text: Radiology Service Progress Note PATIENT NAME: Lester Infante DATE OF SERVICE: October 08, 2024 TIME: 4:34 PM PATIENT IDENTITY VERIFICATION COMPLETED USING TWO [...] PATIENT PRESENTS WITH AN IMPLANTABLE OR ATTACHED TEACHER TUTOR: No RADIOLOGY DEPARTMENT: General X-ray: Exam(s) Completed: Chest X-Ray PERIPHERAL IV DATA: Not applicable SIGNED BY: Manan Alcocer October 08, 2024 4:34 PM [facility] 10-08-2024 Note HNO ID: [id number] Author: QUIRINO CRUZ APRN.BALDEV Service: ? Author Type: Nurse Practitioner Type: Progress Notes Filed: 10/08/2024 16:50 Note Text: [facility] Allan Infante is a 23 year old female. Patient presents with: Cough: DUNNE, chest congestion, sob x 2 days HPI Nontoxic-appearing 23-year-old female presents urgent care chief complaint cough chest congestion and headache fatigue low-grade fever. Shortness of breath with coughing only. duration of symptoms 2 days. Associated symptoms listed above. Presents today for evaluation. OTC medications none. Sick contacts unknown. Denies any hemoptysis pleuritic pain. No high fevers. No nausea vomiting abdominal pain. Denies chance of . Past medical history prescription medications allergies reviewed Review of Systems Constitutional: Positive for chills, fatigue and fever. Negative for diaphoresis. HENT: Positive for congestion and rhinorrhea. Negative for drooling, ear discharge, ear pain, sinus pressure, sinus pain, sneezing, sore throat and trouble swallowing. Eyes: Negative for pain, discharge, redness, itching and visual disturbance. Respiratory: Positive for cough. Negative for chest tightness, shortness of breath and wheezing. Cardiovascular: Negative for chest pain. Gastrointestinal: Negative for abdominal distention, abdominal pain, blood in stool, constipation, diarrhea, nausea and vomiting. Genitourinary: Negative for difficulty urinating and dysuria. Musculoskeletal: Negative for arthralgias, joint swelling, neck pain and neck stiffness. Skin: Negative for rash. Neurological: Positive for headaches. Negative for dizziness, weakness and numbness. Objective BP 122/72 Pulse 94 Temp 37.6 ?C (99.7 ?F) Resp 20 Wt (!) 136.7 kg (301 lb 5.9 oz) LMP 04/05/2024 SpO2 98% Physical Exam Constitutional: Appearance: Normal appearance. HENT: Head: Normocephalic. Jaw: No trismus, tenderness, swelling or pain on movement. Nose: Congestion present. Mouth/Throat: Mouth: Mucous membranes are moist. Pharynx: Oropharynx is clear. Uvula midline. No oropharyngeal exudate or posterior oropharyngeal erythema. Eyes: Conjunctiva/sclera: Conjunctivae normal. Cardiovascular: Rate and Rhythm: Normal rate. Pulmonary: Effort: Pulmonary effort is normal. Breath sounds: Normal breath sounds. No wheezing, rhonchi or rales. Abdominal: Palpations: Abdomen is soft. Tenderness: There is no abdominal tenderness. There is no guarding or rebound. Musculoskeletal: General: Normal range of motion. Cervical back: Normal range of motion and neck supple. No edema, erythema or rigidity. No pain with movement. Normal range of motion. Lymphadenopathy: Cervical: No cervical adenopathy. Skin: General: Skin is warm. Findings: No rash. Neurological: General: No focal deficit present. Mental Status: She is alert and oriented to person, place, and time. Mental status is at baseline. {ASSESSMENT/PLAN: 1. Acute cough - ICD9: 786.2, ICD10: R05.1 (primary diagnosis) - XR CHEST 2V FRONTAL/LAT 2. Viral URI with cough - ICD9: 465.9, ICD10: J06.9 No adventitious lung sounds. Chest x-ray unremarkable. We discussed COVID and flu testing. Declined at this point. We discussed red flags for ER evaluation. Treat as viral etiology Patient was educated on supportive therapies. Patient [...] of care. This note was generated using [employer] software. It may contain errors in wording, punctuation, or spelling. Quirino Cruz APRN.SALES REPRESENTATIVE GRAPHIC ART History and Record Review Clinical information obtained from an independent historian. History obtained from or confirmed by: parent. External record(s) reviewed: prior outpatient record. Disposition The patient was discharged. OTC Medications were advised: Procedures [facility] 10-08-2024 History of Presen t illness Narrative [facility] Lemus Lester Infante is a 23 year old female. Patient presents with: Cough: DUNNE, chest congestion, sob x 2 days HPI Nontoxic-appearing 23-year-old female presents urgent care chief complaint cough chest congestion and headache fatigue low-grade fever. Shortness of breath with coughing only. duration of symptoms 2 days. Associated symptoms listed above. Presents today for evaluation. OTC medications none. Sick contacts unknown. Denies any hemoptysis pleuritic pain. No high fevers. No nausea vomiting abdominal pain. Denies chance of . Past medical history prescription medications allergies reviewed Review of Systems Constitutional: Positive for chills, fatigue and fever. Negative for diaphoresis. HENT: Positive for congestion and rhinorrhea. Negative for drooling, ear discharge, ear pain, sinus pressure, sinus pain, sneezing, sore throat and trouble swallowing. Eyes: Negative for pain, discharge, redness, itching and visual disturbance. Respiratory: Positive for cough. Negative for chest tightness, shortness of breath and wheezing. Cardiovascular: Negative for chest pain. Gastrointestinal: Negative for abdominal distention, abdominal pain, blood in stool, constipation, diarrhea, nausea and vomiting. Genitourinary: Negative for difficulty urinating and dysuria. Musculoskeletal: Negative for arthralgias, joint swelling, neck pain and neck stiffness. Skin: Negative for rash. Neurological: Positive for headaches. Negative for dizziness, weakness and numbness. Objective BP 122/72 Pulse 94 Temp 37.6 C (99.7 F) Resp 20 Wt (!) 136.7 kg (301 lb 5.9 oz) LMP 04/05/2024 SpO2 98% Physical Exam Constitutional: Appearance: Normal appearance. HENT: Head: Normocephalic. Jaw: No trismus, tenderness, swelling or pain on movement. Nose: Congestion present. Mouth/Throat: Mouth: Mucous membranes are moist. Pharynx: Oropharynx is clear. Uvula midline. No oropharyngeal exudate or posterior oropharyngeal erythema. Eyes: Conjunctiva/sclera: Conjunctivae normal. Cardiovascular: Rate and Rhythm: Normal rate. Pulmonary: Effort: Pulmonary effort is normal. Breath sounds: Normal breath sounds. No wheezing, rhonchi or rales. Abdominal: Palpations: Abdomen is soft. Tenderness: There is no abdominal tenderness. There is no guarding or rebound. Musculoskeletal: General: Normal range of motion. Cervical back: Normal range of motion and neck supple. No edema, erythema or rigidity. No pain with movement. Normal range of motion. Lymphadenopathy: Cervical: No cervical adenopathy. Skin: General: Skin is warm. Findings: No rash. Neurological: General: No focal deficit present. Mental Status: She is alert and oriented to person, place, and time. Mental status is at baseline. {ASSESSMENT/PLAN: 1. Acute cough - ICD9: 786.2, ICD10: R05.1 (primary diagnosis) - XR CHEST 2V FRONTAL/LAT 2. Viral URI with cough - ICD9: 465.9, ICD10: J06.9 No adventitious lung sounds. Chest x-ray unremarkable. We discussed COVID and flu testing. Declined at this point. We discussed red flags for ER evaluation. Treat as viral etiology Patient was educated on supportive therapies. Patient [...] of care. This note was generated using [employer] software. It may contain errors in wording, punctuation, or spelling. Quirino Cruz APRN.SALES REPRESENTATIVE GRAPHIC ART History and Record Review Clinical information obtained from an independent historian. History obtained from or confirmed by: parent. External record(s) reviewed: prior outpatient record. Disposition The patient was discharged. OTC Medications were advised: Procedures documented in this encounter [facility] 10-07-2024 Radiology Diagnostic study note [facility] Imaging Services [address], [place] [address] Foot min 3 Views MR#: [id number] Acct: [id number] Name: LESTER INFANTE Rep #: [id number] : 2000 F 23 From: Claude Macias MD PCP: Care Physician,No Primary Status: REG ER Study:Foot min 3 Views Date of Exam: Exam# [id number] Ordering Dr: Leora Doty DO PROCEDURE: FOOT MIN 3 VIEWS 10/07/2024 REASON FOR EXAM: PAIN TECHNIQUE: FOOT MIN 3 VIEWS Laterality: Left COMPARISON: None FINDINGS: Bones: No acute bony abnormalities. Joints: Unremarkable. No dislocation. Soft tissues: Unremarkable. RAD/Foot min 3 Views IMPRESSION: No acute osseous abnormalities. Reading Location: [facility] CC: Buddy Doty DO; No Primary Care Physician ~ Mud Analysis Supervisor: Signed [facility] 10-07-2024 Radiology Diagnostic study note [facility] Imaging Services [address] [place] [address] Ankle min 3 Views MR#: [id number] Acct: [id number] Name: LESTER INFANTE Rep #: [id number] : 2000 F 23 From: Claude Macias MD PCP: Care Physician,No Primary Status: [facility] ER Study:Ankle min 3 Views Date of Exam: Exam# [id number] Ordering Dr: Leora Doty DO PROCEDURE: ANKLE MIN 3 VIEWS 10/07/2024 REASON FOR EXAM: PAIN TECHNIQUE: ANKLE MIN 3 VIEWS Laterality: Left COMPARISON: None FINDINGS: Bones: No acute bony abnormalities. Joints: The mortise joint is aligned. Soft tissues: Unremarkable. RAD/Ankle min 3 Views IMPRESSION: No acute bony abnormalities. Reading Location: [facility] CC: Buddy Doty DO; No Primary Care Physician ~ Mud Analysis Supervisor: Signed [facility] 10-07-2024 Hospital Discharg e instructions Additional Instructions Your x-rays do not reveal any acute fracture or dislocation. Your history and exam indicate you have a partial tear to your ankle ligaments which is considered a grade 2 sprain. Wear the walking boot for stabilization and this should heal over the next 4 to 6 weeks. Follow-up with podiatry for repeat evaluation and return to the ER should you have any further concerns [facility] Work Phone: 06-05-2024 Note HNO ID: [id number] Author: QUIRINO CRUZ APRN.[facility] Service: ? Author Type: Nurse Practitioner Type: [...] day her foot is swollen. Is a yevf-xe-ysjp mom has 6 children under the age [...] of care. This note was generated using [employer] software. It may contain errors in wording, punctuation, or spelling. Quirino Cruz APRN.[facility] 06-05-2024 History of Presen t illness Narrative [...] day her foot is swollen. Is a byjb-bq-crun mom has 6 children under the age [...] of care. This note was generated using [employer] software. It may contain errors in wording, punctuation, or spelling. Quirino Cruz APRN.BALDEV documented in this encounter [facility] 05-14-2024 Instructions Yasmin Sue PA - [...] when lying down. documented in this encounter [facility] 05-14-2024 History of Presen t illness [...] PATIENT PRESENTS WITH AN IMPLANTABLE OR ATTACHED TEACHER TUTOR: No RADIOLOGY DEPARTMENT: General X-ray: Exam(s) Completed: Lower Extremity X-Ray(s): Ankle, Left and Foot, Left PERIPHERAL IV DATA: Not applicable SIGNED BY: Manan Haile May 14, 2024 8:56 AM documented in this encounter [facility] 05-14-2024 Note HNO ID: [id number] Author: ASHLEY WHITTAKER Tech Service: ? Author [...] PATIENT PRESENTS WITH AN IMPLANTABLE OR ATTACHED TEACHER TUTOR: No RADIOLOGY DEPARTMENT: General X-ray: Exam(s) Completed: Lower Extremity X-Ray(s): Ankle, Left and Foot, Left PERIPHERAL IV DATA: Not applicable SIGNED BY: Manan Haile May 14, 2024 8:56 AM [facility] 05-14-2024 Note HNO ID: [id number] Author: YASMIN SUE PA Service: ? Author Type: Physician Radio Reporter Type: Progress Notes Filed: 05/14/2024 09:44 Note [...] Findings from review of outpatient records: Seen 3/6 for similar symptoms/injury Differential Diagnoses - Ankle [...] discharged. OTC Medications were advised: Tylenol/Motrin Procedures [facility] 05-14-2024 History of Presen t illness Narrative [...] demonstrated ankle or foot -Patient has an [place] wrap, continue wearing this, ice, elevation, Tylenol/Motrin. [...] advised: Tylenol/Motrin Procedures documented in this encounter [facility] 04-19-2024 History of Presen t illness [...] PATIENT PRESENTS WITH AN IMPLANTABLE OR ATTACHED TEACHER TUTOR: No RADIOLOGY DEPARTMENT: General X-ray: Exam(s) Completed: Lower Extremity X-Ray(s): Ankle, Left and Foot, Left PERIPHERAL IV DATA: Not applicable SIGNED BY: Manan Haile April 19, 2024 10:00 AM documented in this encounter [facility] 04-19-2024 Note HNO ID: [id number] Author: ASHLEY WHITTAKER Tech Service: ? Author [...] PATIENT PRESENTS WITH AN IMPLANTABLE OR ATTACHED TEACHER TUTOR: No RADIOLOGY DEPARTMENT: General X-ray: Exam(s) Completed: Lower Extremity X-Ray(s): Ankle, Left and Foot, Left PERIPHERAL IV DATA: Not applicable SIGNED BY: Manan Haile April 19, 2024 10:00 AM [facility] 04-19-2024 Note HNO ID: [id number] Author: NAYE HANCOCK APRN.[facility] Service: ? Author Type: Nurse Practitioner Type: [...] history is provided by the patient. No health care technician was used. Review of Systems Constitutional: Negative. Skin: Negative. Objective Physical Exam Constitutional: Appearance: Normal appearance. Pulmonary: Effort: Pulmonary effort is normal. Musculoskeletal: Feet: Feet: Comments: Patient is tender in the area marked above. No signs of discoloration or deformity. Mild swelling is noted. Circulation and sensation are intact. Patient does have difficulty moving her ankle laterally from bdla-se-gyoj. Neurological: Mental Status: She is alert. PAST [...] foot. Soft tissue edema about the ankle. Mud Analysis Supervisor: PSCB Transcribe Date/Time: Apr 19 2024 10:21A Dictated by : MARKUS SUAREZ MD Patient was educated to alternate Tylenol Motrin rested for a week or 2. Patient was given an Marika wrap for comfort. Patient was agreeable to this care plan and will follow-up with primary care if signs and symptoms seem to be getting worse not better. Naye Hancock APRN.[facility] 04-19-2024 History of Presen t illness Narrative [...] history is provided by the patient. No health care technician was used. Review of Systems Constitutional: Negative. Skin: Negative. Objective Physical Exam Constitutional: Appearance: Normal appearance. Pulmonary: Effort: Pulmonary effort is normal. Musculoskeletal: Feet: Feet: Comments: Patient is tender in the area marked above. No signs of discoloration or deformity. Mild swelling is noted. Circulation and sensation are intact. Patient does have difficulty moving her ankle laterally from jlze-wh-bxrt. Neurological: Mental Status: She is alert. PAST [...] foot. Soft tissue edema about the ankle. Mud Analysis Supervisor: STAN Transcribe Date/Time: Apr 19 2024 10:21A Dictated by : MARKUS SUAREZ MD Patient was educated to alternate Tylenol Motrin rested for a week or 2. Patient was given an Marika wrap for comfort. Patient was agreeable to this care plan and will follow-up with primary care if signs and symptoms seem to be getting worse not better. Naye Hancock APRN.BALDEV documented in this encounter [facility] 03-13-2024 Telephone encounter Note Patient given results and verbalized understanding of instructions given. Linda Colvin MA [facility] 03-13-2024 Miscellaneous Notes Patient given results [...] fever free for 24 hours. Dianelys Marroquin APRN.CNP documented in this encounter [facility] 03-13-2024 Telephone encounter Note Please advise [...] fever free for 24 hours. Dianelys Marroquin APRN.CNP [facility] Work Phone: 03-12-2024 History of Presen [...] PATIENT PRESENTS WITH AN IMPLANTABLE OR ATTACHED TEACHER TUTOR: No RADIOLOGY DEPARTMENT: General X-ray: Exam(s) Completed: Chest X-Ray PERIPHERAL IV DATA: Not applicable SIGNED BY: RT Santino(R) March 12, 2024 2:14 PM documented in this encounter [facility] 03-12-2024 Note HNO ID: [id number] Author: IGGY BARGER RT(Jesus) Service: ? Author Type: Photographic Processor Type: Progress Notes Filed: 03/12/2024 14:30 Note [...] PATIENT PRESENTS WITH AN IMPLANTABLE OR ATTACHED TEACHER TUTOR: No RADIOLOGY DEPARTMENT: General X-ray: Exam(s) Completed: Chest X-Ray PERIPHERAL IV DATA: Not applicable SIGNED BY: RT Santino(R) March 12, 2024 2:14 PM [facility] 03-12-2024 Note HNO ID: [id number] Author: GEORGE MONTES MD Service: ? Author [...] AND RSV PCR, ROUTINE George Montes MD [facility] 03-12-2024 History of Presen t illness Narrative [...] George Montes MD documented in this encounter [facility] 12-30-2023 Hospital Discharg e instructions Patient [...] crackers, bananas, Jell-O, cooked carrots, applesauce. ___ [place] diet. Avoid caffeine, chocolate, alcohol, spiced/greasy foods. [...] the nearest Emergency Room for assistance. Form [id number] D: 01/22 Document Released: 01/31/2006 Document Revised: 01/20/2012 Document Reviewed: 01/31/2006 ExitCare Patient Information 2012 [employer]. Follow Up Care 12/30/2023 08:43:01 With:RENÉE DALAL MD Address: [address] [facility] [place] [address] [phone] When: Unknown [facility] 12-30-2023 Note Discharge Instructions Thank you for allowing [facility] to assist you with your healthcare needs. The following is important discharge information regarding your hospital visit. Your Care Team PHYSICIAN, NONE What to do next Follow Up Appointments Follow Up with RENÉE DALAL MD Where:[address] [facility] [place] [address]- [phone] Someone Will Contact You Regarding These Home [...] medication providers or retail pharmacies. Education Materials [facility] OUTPATIENT HOME-GOING INSTRUCTIONS [...] crackers, bananas, Jell-O, cooked carrots, applesauce. ___ [place] diet. Avoid caffeine, chocolate, alcohol, spiced/greasy foods. [...] the nearest Emergency Room for assistance. Form [id number] D: 01/22 Document Released: 01/31/2006 Document Revised: 01/20/2012 Document Reviewed: 01/31/2006 ExitCare Patient Information 2012 [facility]. Additional Information VACCINATE! IT SAVES LIVES! Members of the community who have not yet received the COVID-19 vaccine and would like to receive it can visit one of [facility] vaccine clinics. There are many vaccine clinic locations within the [facility]. For locations and available times, please visit [email or web address] It is important to note that some COVID mobile vaccine clinics are held outdoors and may be canceled in rainy or stormy conditions. To learn more about pediatric vaccinations (ages 5-11), we invite you to visit the [facility] webpage. [email or web address] To learn more about the COVID-19 vaccine, we invite you to visit the CDC website for a list of frequently asked questions. https://www.cdc.gov/coronavirus/2 019-ncov/vaccines/faq.html [facility] Patient Portal Access Instructions: Stay connected with your healthcare team and access your personal medical information anytime with the [facility] Patient Portal.If you would like a full copy of your medical records, please contact the [facility] Medical Records Department, Tuesday through Tuesday between 8a.m. and 4:30p.m. Please follow the directions below to access the portal: 1.Access the email account you provided upon registration to the [facility].2.Look for an invitation email from [facility].3.Open the email and access the invitation link: Accept Invitation to [place] [employer]4.Fill in the required masterson to create your account. Sign into [email or web address] with your username and password that you [...] you will allow to register on the [facility] Patient Portal for access to your information. You can also access the [facility] Patient Portal on the [employer]. Simply click on Health Records under Health Data and then click on the [employer] logo. HOW TO SAFELY DISPOSE OF PRESCRIPTION [...] Call your local pharmacy or go to http://[email or web address].makerist/[email or web address] to find one close to you.3.Make use of household items: Use cat litter or old coffee grounds to dispose medications if other options are not available. Mix your drugs with these household products, seal them in an airtight container and throw it into the garbage. Call [facility]: [phone] to be sure your drugs can be [...] aware that I should contact my doctor. Patient/Workers' Compensation Claims Supervisor Signature: Date/Time: Relationship to Patient: ____ Witness Name/Signature: Date/Time: [facility] 12-23-2023 Hospital Discharg e instructions Patient Education 12/23/2023 13:27:04 7 - Labor and Delivery Outpatient Instructions(CUSTOM) [facility] OUTPATIENT HOME-GOING INSTRUCTIONS _X_ [...] crackers, bananas, Jell-O, cooked carrots, applesauce. ___ [place] diet. Avoid caffeine, chocolate, alcohol, spiced/greasy foods. [...] the nearest Emergency Room for assistance. Form [id number] D: 01/22 Document Released: 01/31/2006 Document Revised: 01/20/2012 Document Reviewed: 01/31/2006 [facility] Patient Information 2012 [employer]. Follow Up Care 12/23/2023 10:09:33 With:RENÉE DALAL MD Address: [address] [place] [address] [place] [address]- [phone] When: Unknown Comments:Follow-up as scheduled [facility] 12-23-2023 Evaluation + Plan note Diagnostic Tests PendingBile Acids, Fractionated LCMS 12/23/23 Future Scheduled TestsBile Acids, Fractionated LCMS 12/23/23.Glucose 1 Hour 01/08/23.Glucose 1 Hour 11/03/23.Glucose 2 Hour 01/08/23.Glucose 2 Hour 11/03/23.Glucose 3 Hour 01/08/23.Glucose 3 Hour 11/03/23Glucose 1 Hour Challenge 11/03/23Rapid Plasma Reagin Test 11/21/23Rapid Plasma Reagin Test 11/03/23Urine Culture 12/30/22Urine Culture 09/08/23Complete Blood Count 11/21/23Complete Blood Count 11/03/23Complete Metabolic Panel 12/23/23 [facility] 12-23-2023 Evaluation + Plan note Future Scheduled TestsBile Acids, Fractionated LCMS 12/23/23.Glucose 1 Hour 01/08/23.Glucose 1 Hour 11/03/23.Glucose 2 Hour 01/08/23.Glucose 2 Hour 11/03/23.Glucose 3 Hour 01/08/23.Glucose 3 Hour 11/03/23Glucose 1 Hour Challenge 11/03/23Rapid Plasma Reagin Test 11/21/23Rapid Plasma Reagin Test 11/03/23Urine Culture 09/08/23Complete Blood Count 11/21/23Complete Blood Count 11/03/23Complete Metabolic Panel 12/23/23 [facility] 12-23-2023 Note Discharge Instructions Thank you for allowing [facility] to assist you with your healthcare needs. The following is important discharge information regarding your hospital visit. Your Care Team PHYSICIAN, NONE What to do next Follow Up Appointments Follow Up with RENÉE DALAL MD Where:[address] [place] [address] [place] [address]- [phone] Additional Information: Follow-up as scheduled Someone Will [...] Duration: 30 Days Refills: 3 Pickup at [id number] Unchanged cephalexin (Keflex) 500 Milligram by mouth [...] by mouth Once a day Pharmacy Information [id number]: [address] [phone] Please take this list to your next doctor s visit. Bring all medications you take, including over the counter medications, herbals and other supplements with you to your doctor s visit. Patients and families are reminded to discard old lists and to update any records with all medication providers or retail pharmacies. Education Materials [facility] HOME-GOING INSTRUCTIONS _X_ [...] crackers, bananas, Jell-O, cooked carrots, applesauce. ___ [place] diet. Avoid caffeine, chocolate, alcohol, spiced/greasy foods. [...] the nearest Emergency Room for assistance. Form [id number] D: 01/22 Document Released: 01/31/2006 Document Revised: 01/20/2012 Document Reviewed: 01/31/2006 Exit[facility] Patient Information 2012 [employer]. Additional Information VACCINATE! IT SAVES LIVES! Members of the community who have not yet received the COVID-19 vaccine and would like to receive it can visit one of [facility] vaccine clinics. There are many vaccine clinic locations within the [facility]. For locations and available times, please visit www.[email or web address].g ov/. It is important to note that some COVID mobile vaccine clinics are held outdoors and may be canceled in rainy or stormy conditions. To learn more about pediatric vaccinations (ages 5-11), we invite you to visit the [facility] webpage. https://www.[facility].org/pa ges/8303-Ytewn-Bdqrupvbxpl-Freque xtyb-Bgzxw-Nauhokbyd.html To learn more about the COVID-19 vaccine, we invite you to visit the CDC website for a list of frequently asked questions. https://www.cdc.gov/coronavirus/2 019-ncov/vaccines/faq.html [facility] Patient Portal Access Instructions: Stay connected with your healthcare team and access your personal medical information anytime with the [facility] Patient Portal.If you would like a full copy of your medical records, please contact the [facility] Medical Records Department, Tuesday through Tuesday between 8a.m. and 4:30p.m. Please follow the directions below to access the portal: 1.Access the email account you provided upon registration to the hospital.2.Look for an invitation email from [facility].3.Open the email and access the invitation link: Accept Invitation to [facility]4.Fill in the required masterson to create your account. Sign into [email or web address] with your username and password that you [...] you will allow to register on the [facility] Patient Portal for access to your information. You can also access the [facility] Patient Portal on the [employer] kasia. Simply click on Health Records under [...] Call your local pharmacy or go to http://[email or web address].makerist/[email or web address] to find one close to you.3.Make use of household items: Use cat litter or old coffee grounds to dispose medications if other options are not available. Mix your drugs with these household products, seal them in an airtight container and throw it into the garbage. Call [facility]: [phone] to be sure your drugs can be [...] aware that I should contact my doctor. Patient/Workers' Compensation Claims Supervisor Signature: Date/Time: Relationship to Patient: ____ Witness Name/Signature: Date/Time: [facility] 11-09-2023 Hospital Discharg e instructions Patient Education [...] pressure, swelling, and other signs should decrease. 8901-9938 [employer]. [address] [place] [address], [place] [address]. All rights reserved. This information is not [...] more than 2 day(s) in a row. 9985-8560 [employer]. [address] [place] [address]. All rights reserved. This information is not intended as a substitute for professional medical care. Always follow your healthcare professional's instructions. Follow Up Care 11/09/2023 09:51:15 With:APURVA SINGH MD Address: [address] [place] [phone] When:2-4 days [facility] 11-09-2023 Note Discharge Instructions Thank you for allowing [facility] to assist you with your healthcare needs. The following is important discharge information regarding your hospital visit. Diagnosis from Today's Visit Intermittent lightheadedness What to Do Next Instructions from Your Care Team Please continue to monitor your blood glucose levels and blood pressure levels and follow-up with your [employer] DEVELOPER. If you develop sudden onset headache, fluid [...] with APURVA SINGH MD When:Within 2-4 days Where:[address] [place] [phone] Allergies NKA Medications Please ask your primary [...] pressure, swelling, and other signs should decrease. 5058-2375 [employer]. [address] [place] [address]. All rights reserved. This information is not [...] more than 2 day(s) in a row. 3657-7818 [employer]. [address] [place] [address], [place] [address]. All rights reserved. This information is not intended as a substitute for professional medical care. Always follow your healthcare professional's instructions. Additional Information VACCINATE! IT SAVES LIVES! Members of the community who have not yet received the COVID-19 vaccine and would like to receive it can visit one of [facility] vaccine clinics. There are many vaccine clinic locations within the [facility]. For locations and available times, please visit www.[email or web address].[place].g ov/. It is important to note that some COVID mobile vaccine clinics are held outdoors and may be canceled in rainy or stormy conditions. To learn more about pediatric vaccinations (ages 5-11), we invite you to visit the [facility] webpage. https://www.Exosects.org/pa ges/5094-Gkgyn-Dvkxkemqafx-Freque xuff-Kciwp-Qjdnugisy.html To learn more about the COVID-19 vaccine, we invite you to visit the CDC website for a list of frequently asked questions. https://www.cdc.gov/coronavirus/2 019-ncov/vaccines/faq.html [facility] Patient Portal Access Instructions: Stay connected with your healthcare team and access your personal medical information anytime with the [facility] Patient Portal. If you would like a full copy of your medical records please contact the [facility] Medical Records Department Tuesday through Tuesday between 8a.m. and 4:30p.m. Please follow the directions below to access the portal: 1.Access the email account you provided upon registration to the hospital.2.Look for an invitation email from [facility].3.Open the email and access the invitation link: Accept Invitation to [facility]4.Fill in the required masterson to create your account. Sign into [email or web address] with your username and password that you [...] you will allow to register on the [facility] Patient Portal for access to your information. You can also access the [facility] Patient Portal on the [employer] kasia. Simply click on Health Records under Health Data and then click on the [employer] logo. HOW TO SAFELY DISPOSE OF PRESCRIPTION [...] Call your local pharmacy or go to http://pijajo.com.makerist/[email or web address] to find one close to you.3.Make use of household items: Use cat litter or old coffee grounds to dispose medications if other options are not available. Mix your drugs with these household products, seal them in an airtight container and throw it into the garbage. Call [facility]: [phone] to be sure your drugs can be [...] aware that I should contact my doctor. Patient/Workers' Compensation Claims Supervisor Signature: Date/Time: Relationship to Patient: ____ Witness Name/Signature: Date/Time: [facility] 08-30-2023 History of Presen t illness [...] treatment plan. Follow-up with OB. Naye Hancock APRN.SALES REPRESENTATIVE GRAPHIC ART documented in this encounter [facility] 02-23-2023 Hospital Discharg e instructions Patient [...] decreases and the color of blood gets direct care supervisor. Bright red and increased flow may reoccur [...] tender for several weeks. Take prescription or cyaf-vpx-ucpqusk medications for pain with your care givers [...] straining when trying to pass a stool. Kgrc-ctg-myxzyaq medications, stool softeners, can be used. Check [...] one baby. Being 35 or older. Being -Icelandic. Having kidney disease or diabetes. Having medical [...] get plenty of sleep. General instructions Take kedh-fwr-xatiggm and prescription medicines only as told by [...] 01/28/2001 Document Revised: 10/03/2018 Document Reviewed: 09/06/2016 [employer] Patient Education 2020 [employer] Follow Up Care 02/20/2023 18:39:56 With:[facility] Address: [address] [place] [address] (Mon-Fri from 8:30am - 5:00pm) [place] [address]- When:Within 6 Week(s) Comments:Follow up in 6 weeks for visit. [facility] 02-23-2023 Note Discharge Instructions Thank you for allowing [facility] to assist you with your healthcare needs. The following is important discharge information regarding your hospital visit. Your Care Team PHYSICIAN, NONE Your Diagnosis Post-op pain What to do next Follow Up Appointments Follow Up with [facility] CLIN[facility] When In 6 weeks Why: Follow up in 6 weeks for visit. Where: [address] [facility] (Mon-Fri from 8:30am - 5:00pm) [place] [phone]- Someone Will Contact You Regarding These Home [...] Post-op pain Duration: 7 Days [facility]up at [facility] New chlorhexidine topical (chlorhexidine 4% topical soap) 0.33 Bottle(s) Topical Every day Use as need around outer perimeter of incision for 5 days post-op to prevent yeast infection Pickup at [facility] New docusate (Colace 100 mg oral capsule) 1 cap by mouth Two (2) times a day as needed for as needed for constipation Refills: 1 Pickup at [facility] New ibuprofen (ibuprofen 600 mg oral tablet) 1 tab(s) by mouth Every 6 hours as needed for for pain Take with food or milk. Pickup at [facility] Changed ferrous sulfate 325 Milligram by mouth Changed ferrous sulfate (IRON (ferrous sulfate 325 mg) 65 mg oral tablet) 1 tab(s) by mouth Once a day Duration: 30 Days Pickup at [facility] Unchanged acetaminophen (Tylenol Extra Strength 500 mg [...] a day Duration: 30 Days Pharmacy Information [facility]: [address] [place] [phone] Please take this list to your next [...] decreases and the color of blood gets direct care supervisor. Bright red and increased flow may reoccur [...] tender for several weeks. Take prescription or fnhd-ryn-amavikp medications for pain with your care givers [...] straining when trying to pass a stool. Zxyq-uvz-jbjojsi medications, stool softeners, can be used. Check [...] one baby. Being 35 or older. Being -Icelandic. Having kidney disease or diabetes. Having medical [...] get plenty of sleep. General instructions Take vyiu-oie-twntuxh and prescription medicines only as told by [...] 01/28/2001 Document Revised: 10/03/2018 Document Reviewed: 09/06/2016 [employer] Patient Education 2020 [employer]. Additional Information VACCINATE! IT SAVES LIVES! Members of the community who have not yet received the COVID-19 vaccine and would like to receive it can visit one of [facility] vaccine clinics. There are many vaccine clinic locations within the [facility]. For locations and available times, please visit www.[email or web address].[place].g ov/. It is important to note that some COVID mobile vaccine clinics are held outdoors and may be canceled in rainy or stormy conditions. To learn more about pediatric vaccinations (ages 5-11), we invite you to visit the [facility] webpage. https://www.[facility].org/pa ges/9908-Ozltl-Izzawofrvoy-Freque wstc-Udqtp-Qcwseobrt.html To learn more about the COVID-19 vaccine, we invite you to visit the CDC website for a list of frequently asked questions. https://www.cdc.gov/coronavirus/2 019-ncov/vaccines/faq.html [facility] [employer] Patient Portal Access Instructions: Stay connected with your healthcare team and access your personal medical information anytime with the [facility] [employer] Patient Portal.If you would like a full copy of your medical records, please contact the [facility] Medical Records Department, Tuesday through Tuesday between 8a.m. and 4:30p.m. Please follow the directions below to access the portal: 1.Access the email account you provided upon registration to the hospital.2.Look for an invitation email from [facility].3.Open the email and access the invitation link: Accept Invitation to [facility]4.Fill in the required masterson to create your [...] you will allow to register on the [facility] [employer] Patient Portal for access to your information. You can also access the [facility] Patient Portal on the [employer]. Simply click on Health Records under Health [...] Call your local pharmacy or go to http://pijajo.com.makerist/[email or web address] to find one close to you.3.Make use of household items: Use cat litter or old coffee grounds to dispose medications if other options are not available. Mix your drugs with these household products, seal them in an airtight container and throw it into the garbage. Call [facility]: [phone] to be sure your drugs can be [...] aware that I should contact my doctor. Patient/Workers' Compensation Claims Supervisor Signature: Date/Time: Relationship to Patient: ____ Witness Name/Signature: Date/Time: [facility] 02-23-2023 Note Date of Service 02/23/2023 OB [...] X ) Rubella immune ( ) Rubella axa-ipmfzx-Uwzywos given ( ) Rubella zcr-nbethe-Jgzliqv declined Feeding Burks: (X ) Breast feeding [...] SHEILA VARMA MD on 02/23/2023 05:54 AM [facility] 02-23-2023 Note Date of Service 02/23/2023 OB [...] X ) Rubella immune ( ) Rubella vlv-ecasyd-Lowalgr given ( ) Rubella hfp-lbpqew-Kaoibbh declined Feeding Burks: (X ) Breast feeding [...] SHEILA VARMA MD on 02/23/2023 05:54 AM [facility] 02-21-2023 Anesthesiology Consult note Patient: LESTER INFANTE [...] HI Diastolic Blood Pressure Non-Invasive 94 mmHg UT 02/21/2023 15:00 EST Heart Rate Monitored 48 [...] SAMARIA DUNN MD on 02/21/2023 04:08 PM [facility] 02-21-2023 Anesthesiology Consult note Patient: LESTER INFANTE Age: 22 years Sex: Female : 2000 Associated Diagnoses: None Author: KARISSA GARCIA APRN-ASSOCIATE PROFESSOR OF ARCHAEOLOGY Preoperative Information Procedure/ Case: Repeat C/S Time [...] Medical Abnormal uterine bleeding / SNOMED CT 1810694620 / Confirmed Amenorrhea / SNOMED CT 72336534 / Confirmed Anxiety / SNOMED CT 51234816 / Confirmed Anxiety / SNOMED CT 37146493 / Confirmed Body mass index 30+ - obesity / SNOMED CT 131330980 / Confirmed delivery delivered / SNOMED CT 281794784 / Confirmed Cholestasis of / SNOMED CT 509115894 / Confirmed Depression / SNOMED CT 526802424 / Confirmed GDM, class A2 / SNOMED CT 0297176456 / Confirmed Previous section / SNOMED CT 936576102 / Confirmed IUD check up / SNOMED CT 6777525750 / Confirmed Elevated liver enzymes / SNOMED CT 8775501677 / Confirmed Migraine / SNOMED CT 15904570 / Confirmed Encounter for supervision of normal in multigravida in third trimester / SNOMED CT 968742613 / Confirmed Encounter for supervision of normal in multigravida in first trimester / SNOMED CT 248887946 / Confirmed Encounter for supervision of normal in multigravida in second trimester / SNOMED CT 861128753 / Confirmed Encounter for general counseling and advice on contraceptive management / SNOMED CT 016158620 / Confirmed Encounter for IUD insertion / SNOMED CT 497770536 / Confirmed Encounter for IUD removal / SNOMED CT 464020940 / Confirmed exam / SNOMED CT 770013284 / Confirmed / SNOMED CT 960446397 / Confirmed Postop check / SNOMED CT 395250272 / Confirmed UTI symptoms / SNOMED CT 275086687 / Confirmed Urinary tract infection in / SNOMED CT 144869564 / Confirmed UTI in / SNOMED CT 024229446 / Confirmed, Active Problems (27) Abnormal uterine [...] UTI symptoms Histories Past Medical History: Resolved ([id number]): Onset on 02/25/2021 at 20 years. Resolved on 11/10/2021 at 20 years. ([id number]): Onset on 09/06/2019 at 18 years. Resolved on 06/06/2020 at 19 years. ([id number]): Onset on 10/16/2018 at 17 years. Resolved on 07/16/2019 at 18 years. ([id number]): Onset on 05/31/2016 at 15 years. Resolved in 2018 at 16 years. Kidney calculus (769633744): Resolved. Family History: Cancer Paternal Uncle Comments: 01/23/2020 10:38 Janny Burroughs LPN brain and lung Lupus Grandparent Breast cancer Grandparent Rheumatoid arthritis Grandparent Hypertension Grandparent Heart disease Grandparent Stroke Grandparent Mental illness Father Malignant tumor of lung Paternal Uncle Smoking Mother Grandparent HTN - Hypertension Father Diabetes Grandparent Procedure history: section ([id number]) on 11/10/2021 at 20 Years. delivery ([id number]) on 06/05/2020 at 19 Years. section ([id number]) on 07/16/2019 at 18 Years. delivery - delivered ([id number]) on 11/21/2017 at 16 Years. Social History [...] Height 160.0 cm Admission Weight 125 kg [place] Body Weight 52.38 kg BSA Admission 2.22 [...] tenderness. No swelling. Integumentary: Intact, Warm, Dry, [place]. Neurologic: Alert, Oriented, Normal sensory, Normal motor function. Review / Management Results review: No qualifying data available , Lab results 02/21/2023 10:36 EST Lactated Ringers Injection Begin Bag 1,000 mL mL 02/21/2023 10:35 EST CHG Preoperative Wash/Wipe Site specific wipe 02/21/2023 10:34 EST Height 160.0 cm Admission Weight 125 kg [place] Body Weight 52.38 kg BSA Admission 2.22 [...] records, Reviewed prior records. Assessment and Plan [place] [employer] Anesthesiologists (ASA) physical status classification: [...] by KARISSA GARCIA on 02/21/2023 10:45 AM [facility] 02-15-2023 Hospital Discharg e instructions Patient Education 02/15/2023 19:23:15 7 - Labor and Delivery Outpatient Instructions (CUSTOM) [facility] HOME-GOING INSTRUCTIONS _X_ [...] crackers, bananas, Jell-O, cooked carrots, applesauce. ___ [place] diet. Avoid caffeine, chocolate, alcohol, spiced/greasy foods. [...] the nearest Emergency Room for assistance. Form [id number] D: 01/22 Document Released: 01/31/2006 Document Revised: 01/20/2012 Document Reviewed: 01/31/2006 Exit[employer] Patient Information 2012 [employer]. Follow Up Care 02/15/2023 13:29:22 With:SURESH VALERIO MD Address: [address] [place] [address] [place] [address]- [phone] When: Unknown Comments:Follow-up as scheduled [facility] 02-15-2023 Note Discharge Instructions Thank you for allowing [facility] to assist you with your healthcare needs. The following is important discharge information regarding your hospital visit. Your Care Team PHYSICIAN, NONE What to do next Follow Up Appointments Follow Up with SURESH VALERIO MD When Why: Follow-up as scheduled Where: [address] [facility] LOMBARDI [place] [address]- [phone] Someone Will Contact You Regarding These Home [...] medication providers or retail pharmacies. Education Materials [facility] OUT[facility]IENT HOME-GOING INSTRUCTIONS _X_ [...] crackers, bananas, Jell-O, cooked carrots, applesauce. ___ [place] diet. Avoid caffeine, chocolate, alcohol, spiced/greasy foods. [...] the nearest Emergency Room for assistance. Form [id number] D: 01/22 Document Released: 01/31/2006 Document Revised: 01/20/2012 Document Reviewed: [facility]/31/[facility] Patient Information 2012 [employer]. Additional Information VACCINATE! IT SAVES LIVES! Members of the community who have not yet received the COVID-19 vaccine and would like to receive it can visit one of [facility] vaccine clinics. There are many vaccine clinic locations within the [facility]. For locations and available times, please visit www.[email or web address].g ov/. It is important to note that some COVID mobile vaccine clinics are held outdoors and may be canceled in rainy or stormy conditions. To learn more about pediatric vaccinations (ages 5-11), we invite you to visit the [employer] webpage. https://www.Exosects.org/pa ges/4371-Vdkzo-Qbzkkixjzgh-Freque huuh-Cqilg-Svrxntxvh.html To learn more about the COVID-19 vaccine, we invite you to visit the CDC website for a list of frequently asked questions. https://www.cdc.gov/coronavirus/2 019-ncov/vaccines/faq.html [facility] Patient Portal Access Instructions: Stay connected with your healthcare team and access your personal medical information anytime with the [facility] Patient Portal.If you would like a full copy of your medical records, please contact the [facility] Medical Records Department, Tuesday through Tuesday between 8a.m. and 4:30p.m. Please follow the directions below to access the portal: 1.Access the email account you provided upon registration to the hospital.2.Look for an invitation email from [facility].3.Open the email and access the invitation link: Accept Invitation to [facility]4.Fill in the required masterson to create your account. Sign into [email or web address] with your username and password that you [...] you will allow to register on the [facility] Patient Portal for access to your information. You can also access the [facility] Patient Portal on the [employer] kasia. Simply click on Health Records under [...] Call your local pharmacy or go to http://pijajo.com.makerist/[email or web address] to find one close to you.3.Make use of household items: Use cat litter or old coffee grounds to dispose medications if other options are not available. Mix your drugs with these household products, seal them in an airtight container and throw it into the garbage. Call [facility]: [phone] to be sure your drugs can be [...] been reviewed and explained to me and NARESH Hernandez KRISTINE R understand my current condition and have read and understand these discharge instructions. I have received a written copy of the plan/instructions. If I have questions, I am aware that I should contact my doctor. Patient/Workers' Compensation Claims Supervisor Signature: Date/Time: Relationship to Patient: ____ Witness Name/Signature: Date/Time: [facility] 02-15-2023 Evaluation + Plan note Diagnostic Tests PendingUrine Culture 02/15/23 Future Scheduled TestshCG, quantitative(AO) 07/04/22hCG, quantitative(AO) 07/06/22hCG, quantitative(AO) 07/08/22hCG, quantitative(AO) 07/10/22Antibody Screen Gel 08/26/22ABO/Rh Gel 08/26/22.Glucose 1 Hour 01/08/23.Glucose 2 Hour 01/08/23.Glucose 3 Hour 01/08/23Hepatitis B Surface Antigen 08/26/22Rapid Plasma Reagin Test 08/26/22Rubella Antibody 08/26/22Thyroid Stimulating Hormone 08/26/22Urine Culture 12/30/22Complete Blood Count 08/26/22Hepatitis C Antibody IgG 08/26/22Varicella Zoster Antibody 08/26/22US OB Limited 10/25/22 [facility] 02-12-2023 Hospital Discharg e instructions Patient Education 02/12/2023 15:32:35 7 - Labor and Delivery Outpatient Instructions (CUSTOM) [place] [facility] OUTPATIENT HOME-GOING INSTRUCTIONS _X_ [...] crackers, bananas, Jell-O, cooked carrots, applesauce. ___ [place] diet. Avoid caffeine, chocolate, alcohol, spiced/greasy foods. [...] the nearest Emergency Room for assistance. Form [id number] D: 01/22 Document Released: 01/31/2006 Document Revised: 01/20/2012 Document Reviewed: 01/31/2006 ExitCare Patient Information 2012 [employer]. Follow Up Care 02/12/2023 12:24:40 With:[facility] Address: [address] [place] [address] (Mon-Fri from 8:30am - 5:00pm) [place] [address] [employer] (1) When: Unknown Comments:Follow-up as scheduled [facility] 02-12-2023 Note Discharge Instructions Thank you for allowing [facility] to assist you with your healthcare needs. The following is important discharge information regarding your hospital visit. Your Care Team PHYSICIAN, NONE What to do next Follow Up Appointments Follow Up with [facility] When Why: Follow-up as scheduled Where: [address] [facility] (Mon-Fri from 8:30am - 5:00pm) [place], [place] [address] (1) Someone Will Contact You Regarding [...] medication providers or retail pharmacies. Education Materials [place] [facility] OUTPATIENT HOME-GOING INSTRUCTIONS _X_ [...] crackers, bananas, Jell-O, cooked carrots, applesauce. ___ [place] diet. Avoid caffeine, chocolate, alcohol, spiced/greasy foods. [...] the nearest Emergency Room for assistance. Form [id number] D: 01/22 Document Released: 01/31/2006 Document Revised: 01/20/2012 Document Reviewed: 01/31/2006 ExitCare Patient Information 2012 [employer] [facility]. Additional Information VACCINATE! IT SAVES LIVES! Members of the community who have not yet received the COVID-19 vaccine and would like to receive it can visit one of [facility] vaccine clinics. There are many vaccine clinic locations within the [facility]. For locations and available times, please visit [email or web address].g ov/. It is important to note that some COVID mobile vaccine clinics are held outdoors and may be canceled in rainy or stormy conditions. To learn more about pediatric vaccinations (ages 5-11), we invite you to visit the [facility] webpage. https://www.[facility].org/pa ges/5735-Kurdo-Krdhktzqayh-Freque kcll-Ylzny-Fpciiwbcq.html To learn more about the COVID-19 vaccine, we invite you to visit the CDC website for a list of frequently asked questions. https://www.cdc.gov/coronavirus/2 019-ncov/vaccines/faq.html [facility] Patient Portal Access Instructions: Stay connected with your healthcare team and access your personal medical information anytime with the [facility] [employer] [facility] Patient Portal.If you would like a full copy of your medical records, please contact the [facility] Medical Records Department, Tuesday through Tuesday between 8a.m. and 4:30p.m. Please follow the directions below to access the portal: 1.Access the email account you provided upon registration to the [facility].2.Look for an invitation email from [facility].3.Open the email and access the invitation link: Accept Invitation to [facility]4.Fill in the required masterson to create your [...] you will allow to register on the [facility] Patient Portal for access to your information. You can also access the [facility] Patient Portal on the [employer] kasia. Simply click on Health Records under Health Data and then click on the [facility] logo. HOW TO SAFELY DISPOSE OF PRESCRIPTION [...] Call your local pharmacy or go to http://pijajo.com.makerist/0M2Je0z to find one close to you.3.Make use of household items: Use cat litter or old coffee grounds to dispose medications if other options are not available. Mix your drugs with these household products, seal them in an airtight container and throw it into the garbage. Call [facility]: [phone] to be sure your drugs can be [...] aware that I should contact my doctor. Patient/Workers' Compensation Claims Supervisor Signature: Date/Time: Relationship to Patient: ____ Witness Name/Signature: Date/Time: [facility] 02-12-2023 Evaluation + Plan note Diagnostic Tests [...] 08/26/22Varicella Zoster Antibody 08/26/22US OB Limited 10/25/22 [facility] 02-10-2023 Hospital Discharg e instructions Patient Education 02/10/2023 09:15:32 7 - Labor and Delivery Outpatient Instructions(CUSTOM) [place] [facility] OUTPATIENT HOME-GOING INSTRUCTIONS _X_ [...] crackers, bananas, Jell-O, cooked carrots, applesauce. ___ [place] diet. Avoid caffeine, chocolate, alcohol, spiced/greasy foods. [...] the nearest Emergency Room for assistance. Form [id number] D: 01/22 Document Released: 01/31/2006 Document Revised: 01/20/2012 Document Reviewed: 01/31/2006 ExitCare Patient Information 2012 [employer]. Follow Up Care 02/09/2023 08:20:51 With:[facility]EL[facility], CLIN[facility] Address: [address] [place] [address] (Mon-Fri from 8:30am - 5:00pm) [place] [address]- When: Unknown Comments:Follow-up as scheduled [facility] 02-10-2023 Note Discharge Instructions Thank you for allowing [facility] to assist you with your healthcare needs. The following is important discharge information regarding your hospital visit. Your Care Team PHYSICIAN, NONE What to do next Follow Up Appointments Follow Up with [facility] When Why: Follow-up as scheduled Where: [address] (Mon-Fri from 8:30am - 5:00pm) [place] [address]- Someone Will Contact You Regarding These Home [...] a day for 5 days Pickup at [facility] Changed ferrous sulfate 325 Milligram by [...] a day Duration: 30 Days Pharmacy Information [facility]: [address] [place] [address] [phone] Please take this list to your next doctor s visit. Bring all medications you take, including over the counter medications, herbals and other supplements with you to your doctor s visit. Patients and families are reminded to discard old lists and to update any records with all medication providers or retail pharmacies. Education Materials [place] [facility] OUTPATIENT HOME-GOING INSTRUCTIONS _X_ [...] crackers, bananas, Jell-O, cooked carrots, applesauce. ___ [place] diet. Avoid caffeine, chocolate, alcohol, spiced/greasy foods. [...] the nearest Emergency Room for assistance. Form [id number] D: 01/22 Document Released: 01/31/2006 Document Revised: 01/20/2012 Document Reviewed: 01/31/2006 ExitCare Patient Information 2012 [employer] [facility]. Additional Information VACCINATE! IT SAVES LIVES! Members of the community who have not yet received the COVID-19 vaccine and would like to receive it can visit one of [facility] vaccine clinics. There are many vaccine clinic locations within the [facility]. For locations and available times, please visit [email or web address].g ov/. It is important to note that some COVID mobile vaccine clinics are held outdoors and may be canceled in rainy or stormy conditions. To learn more about pediatric vaccinations (ages 5-11), we invite you to visit the [facility] webpage. https://www.[facility].org/pa ges/7997-Ytwct-Tltypryypyo-Freque iawy-Cdxqs-Svrzmzttz.html To learn more about the COVID-19 vaccine, we invite you to visit the CDC website for a list of frequently asked questions. https://www.cdc.gov/coronavirus/2 019-ncov/vaccines/faq.html [facility] [employer] Patient Portal Access Instructions: Stay connected with your healthcare team and access your personal medical information anytime with the [facility] Patient Portal.If you would like a full copy of your medical records, please contact the [facility] Medical Records Department, Tuesday through Tuesday between 8a.m. and 4:30p.m. Please follow the directions below to access the portal: 1.Access the email account you provided upon registration to the [facility].2.Look for an invitation email from [facility].3.Open the email and access the invitation link: Accept Invitation to [employer]4.Fill in the required masterson to create your [...] you will allow to register on the [facility] Patient Portal for access to your information. You can also access the [facility] Patient Portal on the [employer]. Simply click on Health Records under Health [...] Call your local pharmacy or go to http://pijajo.com.makerist/9N8Is5w to find one close to you.3.Make use of household items: Use cat litter or old coffee grounds to dispose medications if other options are not available. Mix your drugs with these household products, seal them in an airtight container and throw it into the garbage. Call [facility]: [phone] to be sure your drugs can be [...] aware that I should contact my doctor. Patient/Workers' Compensation Claims Supervisor Signature: Date/Time: Relationship to Patient: ____ Witness Name/Signature: Date/Time: [facility] 01-26-2023 Hospital Discharg e instructions Patient Education 01/26/2023 17:03:35 7 - Labor and Delivery Outpatient Instructions (CUSTOM) [place] [facility] OUTPATIENT HOME-GOING INSTRUCTIONS _X_ [...] crackers, bananas, Jell-O, cooked carrots, applesauce. ___ [place] diet. Avoid caffeine, chocolate, alcohol, spiced/greasy foods. [...] the nearest Emergency Room for assistance. Form [id number] D: 01/22 Document Released: 01/31/2006 Document Revised: 01/20/2012 Document Reviewed: 01/31/2006 ExitCare Patient Information 2012 [employer]. Follow Up Care 01/26/2023 09:39:51 With:OB, OB CLINIC Address: [address] [place] [address]- When: Unknown Comments:Follow-up as scheduled [facility] 01-26-2023 Note Discharge Instructions Thank you for allowing [facility] to assist you with your healthcare needs. The following is important discharge information regarding your hospital visit. Your Care Team PHYSICIAN, NONE What to do next Follow Up Appointments Follow Up with OB, OB CLINIC When Why: Follow-up as scheduled Where: [address] [place] [address]- Someone Will Contact You Regarding These Home [...] medication providers or retail pharmacies. Education Materials [place] [facility] OUTPATIENT HOME-GOING INSTRUCTIONS _X_ [...] crackers, bananas, Jell-O, cooked carrots, applesauce. ___ [place] diet. Avoid caffeine, chocolate, alcohol, spiced/greasy foods. [...] the nearest Emergency Room for assistance. Form [id number] D: 01/22 Document Released: 01/31/2006 Document Revised: 01/20/2012 Document Reviewed: 01/31/2006 ExitCare Patient Information 2011 [employer]. Additional Information VACCINATE! IT SAVES LIVES! Members of the community who have not yet received the COVID-19 vaccine and would like to receive it can visit one of [facility] vaccine clinics. There are many vaccine clinic locations within the [facility]. For locations and available times, please visit www.[email or web address].g ov/. It is important to note that some COVID mobile vaccine clinics are held outdoors and may be canceled in rainy or stormy conditions. To learn more about pediatric vaccinations (ages 5-11), we invite you to visit the [facility] webpage. https://www.[facility].org/pa ges/2885-Tivru-Icwytzxvydb-Freque wlyv-Gqdve-Vxkdrhqfx.html To learn more about the COVID-19 vaccine, we invite you to visit the CDC website for a list of frequently asked questions. https://www.cdc.gov/coronavirus/2 019-ncov/vaccines/faq.html [facility] Patient Portal Access Instructions: Stay connected with your healthcare team and access your personal medical information anytime with the [facility] Patient Portal.If you would like a full copy of your medical records, please contact the [facility] Medical Records Department, Tuesday through Tuesday between 8a.m. and 4:30p.m. Please follow the directions below to access the portal: 1.Access the email account you provided upon registration to the [facility].2.Look for an invitation email from [facility].3.Open the email and access the invitation link: Accept Invitation to [facility]4.Fill in the required masterson to create your account. Sign into [email or web address] with your username and password that you [...] you will allow to register on the [facility] Patient Portal for access to your information. You can also access the [facility] Patient Portal on the [employer]. Simply click on Health Records under Health [...] Call your local pharmacy or go to http://pijajo.com.makerist/1N5Ps4a to find one close to you.3.Make use of household items: Use cat litter or old coffee grounds to dispose medications if other options are not available. Mix your drugs with these household products, seal them in an airtight container and throw it into the garbage. Call [facility]: [phone] to be sure your drugs can be [...] aware that I should contact my doctor. Patient/Workers' Compensation Claims Supervisor Signature: Date/Time: Relationship to Patient: ____ Witness Name/Signature: Date/Time: [facility] 01-26-2023 Evaluation + Plan note Diagnostic Tests [...] 08/26/22Varicella Zoster Antibody 08/26/22US OB Limited 10/25/22 [facility] 01-13-2023 Evaluation + Plan note Extrac tony from: Title:Clinical Document Author:APURVA SINGH MD Date:01/13/23 [place] ADMISSION HISTORY AN D PHYSICIAL CHIEF COMPLAINT: [...] SYSTEMS: ACTIVE PROBLEMS: (26) Abnormal uterine bleeding (0605302080) Amenorrhea (33072768) Anxiety (57307373) Anxiety (49835846) Body mass index 30+ - obesity (806754637) delivery delivered (596791007) Cholestasis of (994787509) Depression (267903916) Elevated liver enzymes (9462842192) Encounter for general counseling and advice on contraceptive management (226135387) Encounter for IUD insertion (106989091) Encounter for IUD removal (830658731) Encounter for supervision of normal in multigravida in first trimester (423538441) Encounter for supervision of normal in multigravida in second trimester (781908797) Encounter for supervision of normal in multigravida in third trimester (733319097) GDM, class A2 (0265533412) Gestational diabetes (90624897) IUD check up (1096961557) Migraine (67009435) Postop check (721192125) exam (969642741) (682128119) Previous section (696715345) Urinary tract infection in (614065078) UTI in (747863024) UTI symptoms (960193595) MEDICATIONS: Active Inpt Meds: None Active PRN Meds: None One Time Meds: None Active IV Meds: None ALLERGIES: (1) NKA FAMILY HISTORY: No significant family history pertaining to this admission SOCIAL HISTORY: Non-smoker, no alcohol use, no toxic habits lives with PHYSICAL EXAM: VITALS: ZiwdgxCmbmOFEonheGQNrE3VLH6XuxtNe(kg) 01/12 21:0536.8--98876--PD21/36342.2 24 Hr Tmax: 36.8 at 01/12 21:05 [...] LABS: 36hr Labs 01/12 2126 Blood Glucose, Jbunrrbov933W Blood Glucose, Jewfyzjcn194W Time of Stated Blood Glucose0:0704616529579347:0.735602:126:0 01/126 Creatinine Lvl (s)0.63 Albumin Level2.3L Alk Axqt895M Bili Total0.5 BUN5L Calcium Lvl8.5 Xkrqbcvz345 CO225 Glucose Xyjtm907F Potassium Level3.5 Sodium Zfedx380 Total Protein7.0 BUN/Creatinine Ratio8 Globulin4.7 A/G Ratio0.5L AST/SGOT35 ALT/DQNQ34I Electrolyte Hexszcy58.0 GFR Non- Urlvwgix367 GFR Rxewmodn584 01/12 2103 Blood Type, ExtSee Flowsheet Rubella, ExternSee Flowsheet HIV Antibodies,See Flowsheet Group B Strep,See Flowsheet Hepatitis B, ExSee Flowsheet Hepatitis B Date Performed1:[id number]:0.283448:0:0 RPR, ExternalSee Flowsheet DIAGNOSTICS: Reassuring NST IMPRESSION: [...] Date:01/17/2023 09:00:00 AM Scheduled Provider:APURVA SINGH MD Location:[facility] Appointment Type:[facility] OB Routine Follow Up Diagnostic Tests Pending [...] Antibody 08/26/22 Radiology* US OB Limited 10/25/22 [facility] 11-30-2023 Hospital Discharge instructions Patient Education 01/13/2023 09:54:39 7 - Labor and Delivery Outpatient Instructions (CUSTOM) [place] [facility] OUTPATIENT HOME-GOING INSTRUCTIONS _X_ [...] crackers, bananas, Jell-O, cooked carrots, applesauce. ___ [place] diet. Avoid caffeine, chocolate, alcohol, spiced/greasy foods. [...] the nearest Emergency Room for assistance. Form [id number] D: 01/22 Document Released: 01/31/2006 Document Revised: 01/20/2012 Document Reviewed: 01/31/2006 [facility] Patient Information 2012 [employer]. Follow Up Care 01/12/2023 20:45:05 With:HOLLIS DUPREE, APURVA Paez Address: [address] [place] [address] [facility] [place] [address] [phone] When: Unknown Comments:Follow-up as scheduled [facility] 11-30-2023 Note [place] ADMISSION H[facility]ORY AND PHYSICIAL CHIEF COMPLAINT: 22-year-old [...] SYSTEMS: ACTIVE PROBLEMS: (26) Abnormal uterine bleeding (7179399616) Amenorrhea (56887789) Anxiety (92703980) Anxiety (22831222) Body mass index 30+ - obesity (343145418) delivery delivered (485189749) Cholestasis of (754206257) Depression (373427057) Elevated liver enzymes (1334584475) Encounter for general counseling and advice on contraceptive management (673366007) Encounter for IUD insertion (255214788) Encounter for IUD removal (466912260) Encounter for supervision of normal in multigravida in first trimester (410123758) Encounter for supervision of normal in multigravida in second trimester (230319829) Encounter for supervision of normal in multigravida in third trimester (173510553) GDM, class A2 (4652300553) Gestational diabetes (21843292) IUD check up (8191974723) Migraine (47198270) Postop check (875204245) exam (881173117) (117306165) Previous section (853119692) Urinary tract infection in (728703531) UTI in (415473203) UTI symptoms (424048818) MEDICATIONS: Active Inpt Meds: None Active PRN Meds: None One Time Meds: None Active IV Meds: None ALLERGIES: (1) NKA FAMILY HISTORY: No significant family history pertaining to this admission SOCIAL HISTORY: Non-smoker, no alcohol use, no toxic habits lives with PHYSICAL EXAM: VITALS: CrmasrIabjJKRonuiQUYgJ9UGA1VupjXn(kg) 01/12 21:0536.8--58102--SY62/81179.2 24 Hr Tmax: 36.8 at 01/12 21:05 [...] LABS: 36hr Labs 01/12 2126 Blood Glucose, Edgtwtwip059N Blood Glucose, Gnwydjsvp342Y Time of Stated Blood Glucose0:9309846615168727:0.041797:126:0 01/13 2116 Creatinine Lvl (s)0.63 Albumin Level2.3L Alk Mtxk251P Bili Total0.5 BUN5L Calcium Lvl8.5 Wwcacykv636 CO225 Glucose Atjdm337Z Potassium Level3.5 Sodium Dxyxo888 Total Protein7.0 BUN/Creatinine Ratio8 Globulin4.7 A/G Ratio0.5L AST/SGOT35 ALT/ZUFV72B Electrolyte Fvinwgx92.0 GFR Non- Wjeyerno370 GFR Egbxeokl964 01/12 2103 Blood Type, ExtSee Flowsheet Rubella, ExternSee Flowsheet HIV Antibodies,See Flowsheet Group B Strep,See Flowsheet Hepatitis B, ExSee Flowsheet Hepatitis B Date Performed:[id number]:0.302077:0:0 RPR, ExternalSee Flowsheet DIAGNOSTICS: Reassuring NST IMPRESSION: [...] APURVA SINGH MD on 01/13/2023 08:45 AM [facility]11-02-2023 Hospital Discharge instructions Patient Education 12/16/2022 11:21:19 7 - Labor and Delivery Outpatient Instructions (CUSTOM) [place] [facility] OUTPATIENT HOME-GOING INSTRUCTIONS _X_ [...] crackers, bananas, Jell-O, cooked carrots, applesauce. ___ [place] diet. Avoid caffeine, chocolate, alcohol, spiced/greasy foods. [...] the nearest Emergency Room for assistance. Form [id number] D: 01/22 Document Released: 01/31/2006 Document Revised: 01/20/2012 Document Reviewed: 01/31/2006 ExitCare Patient Information 2012 [employer]. Follow Up Care 12/16/2022 10:52:39 With:HOLLIS DUPREE, APURVA Paez Address: [address] [place] [address] [facility] [place] [phone] When: Unknown Comments:Follow-up as scheduled [facility] 10-19-2023 Hospital Discharge instructions Patient Education 12/02/2022 14:19:39 7 - Labor and Delivery Outpatient Instructions (CUSTOM) [place] [facility] OUTPATIENT HOME-GOING INSTRUCTIONS _X_ [...] crackers, bananas, Jell-O, cooked carrots, applesauce. ___ [place] diet. Avoid caffeine, chocolate, alcohol, spiced/greasy foods. [...] the nearest Emergency Room for assistance. Form [id number] D: 01/22 Document Released: 01/31/2006 Document Revised: 01/20/2012 Document Reviewed: 01/31/2006 ExitCare Patient Information 2012 [employer]. Follow Up Care 12/02/2022 11:23:21 With:APURVA SINGH MD Address: [address] [place] [address] [facility] [place] [address] [phone] When: Unknown Comments:Follow-up as scheduled [facility] 10-19-2023 Note OB consultation/progress note: Lester presented to labor and delivery today with complaints of crampy contraction-like pains, vaginal bleeding, and some dizziness and lightheadedness at home. She initially was seen in [facility] ER and was monitored with a monitor [...] APURVA SINGH MD on 12/02/2022 01:24 PM [facility]10-11-2023 Hospital Discharge instructions Patient Education 11/24/2022 10:25:46 [place] [facility] Outpatient Instructions (AORN) [place] [facility]OR AND DELIVERY OUTPATIENT HOME-GOING INSTRUCTIONS _X_ [...] crackers, bananas, Jell-O, cooked carrots, applesauce. ___ [place] diet. Avoid caffeine, chocolate, alcohol, spiced/greasy foods. [...] the nearest Emergency Room for assistance. Form [id number] D: 01/22 Follow Up Care 11/24/2022 09:25:42 With:MARYJANE AVILA MD Address: [address] [place] [address] [facility] [place] [address] [phone] When: only if needed [facility] 09-29-2023 Hospital Discharge instructions Patient Education 11/12/2022 14:40:14 7 - Labor and Delivery Outpatient Instructions(CUSTOM) [place] [facility] OUTPATIENT HOME-GOING INSTRUCTIONS _X_ [...] crackers, bananas, Jell-O, cooked carrots, applesauce. ___ [place] diet. Avoid caffeine, chocolate, alcohol, spiced/greasy foods. [...] the nearest Emergency Room for assistance. Form 277801 D: 01/22 Document Released: 01/31/2006 Document Revised: 01/20/2012 Document Reviewed: 01/31/2006 ExitCare Patient Information 2011 [employer]. Follow Up Care 11/12/2022 09:42:52 With:MARYJANE AVILA MD Address: [address] [place] [address]'s [facility] [place] [address] [phone] When:11/15/2022 14:40:00 [facility] 09-29-2023 Note Date of Service 11/12/22 History of Present Illness 21 yo @ 22.5 here for contractions. She started having some spotting and contractions on Tuesday night, seen in ER in [place] and given abx for suspected UTI. Contractions [...] contractions, # 18 cap(s), 0 Refill(s), Pharmacy: [facility] #[id number], 160, cm, 11/12/22 9:56:00 EDT, Height, kg, [...] MARYJANE AVILA MD on 11/12/2022 02:47 PM [facility]09-29-2023 Evaluation + Plan noteExtracted from: Title:Consult [...] contractions, # 18 cap(s), 0 Refill(s), Pharmacy: [facility] #[id number], 160, cm, 11/12/22 9:56:00 EDT, Height, kg, 11/12/22 9:56:00 EDT, Dosing We... Affirm Pathogens DNA Direct Probe Chlamydia trachomatis PCR Communication Order (continuous) Discharge Discharge Activity Discharge Diet Monitoring N. gonorrhoeae PCR Vital Signs Vital Signs Call Parameters Future Appointments Appointment Date:11/22/2022 10:45:00 AM Scheduled Provider:APURVA SINGH MD Location:[facility] Appointment Type: OV OB Routine Follow [...] Antibody 08/26/22 Radiology* US OB Limited 10/25/22 [facility] 09-29-2023 Hospital Discharge instructions Patient Education 11/11/2022 22:50:03 [place] L&D Outpatient Instructions (AORN) [facility] OUTPATIENT HOME-GOING INSTRUCTIONS _X_ [...] crackers, bananas, Jell-O, cooked carrots, applesauce. ___ [place] diet. Avoid caffeine, chocolate, alcohol, spiced/greasy foods. [...] 11/11/2022 19:21:37 With:HOLLIS DUPREE, APURVA Paez Address: [address] [place] [address] [facility] [place] [address] [phone] When: Unknown Comments:CALL TOMORROW TO SCHEDULE AN APPOINTMENT FOR Tuesday11/15/22 [facility] 09-26-2023 History and physical note Author Karina Bedoya [facility] November 09, 2022 12:28pm Note Date/Time November 09, 2022 8:37am [facility] Medical Records Department [address] [place] [address] OB Triage Physician Note 11/09/22 0834 MR#: [id number] Acct: [id number] Name: LESTER INFANTE Rep #:[id number] : 2000 21 From: Karina Lujan DO PCP: Care Physician,No Primary Status :REG CLI Y Location: [id number] HPI - General HPI Narrative LESTER INFANTE, [...] or dysuria. She sees Dr. Singh in [place] and has a history of pre-e with first and 3 prior sections. She also states that she did not feel the baby move much last night. She denies a history of diabetesor hypertension. she is morbidly obese and is [facility]. Maternal Data Information Gestational age: 22 weeks [facility] Medical History Anxiety and depression delivery delivered [...] follow up with her primary OB in [place]. Charges/Coding Multi Select Codes Visit Charges Office Visit/Consults: 70906 OV L3 Est 11/09/22 1226 <Electronically signed by Karina Huff DO> Date _ Karina Lujan DO Cosigner Signature (if applicable): Date CC: Dr. Karina Lujan, DO; No Primary Care Physician ~ [facility] Work Phone: [phone] 237-176607-13-2023 Evaluation + Plan note Future Scheduled Tests [...] Antibody 08/26/22 Radiology* US OB Limited 10/25/22 [facility] 05-21-2023 Evaluation + Plan note Future Scheduled Tests Laboratory* hCG, quantitative(AO) 07/04/22 * hCG, quantitative(AO) 07/06/22 * hCG, quantitative(AO) 07/08/22 * hCG, quantitative(AO) 07/10/22 [facility] 05-21-2023 Evaluation + Plan note Future [...] Antibody 08/26/22 Radiology* US OB Limited 10/25/22 [facility] 09-29-2022 Hospital Discharge instructions Patient Education 11/12/2021 07:50:30 7b- Depression and Blues (11/2019)(CUSTOM) [place] Depression and Blues All mothers are at [...] psychosis. Often, a screening tool called the [place] Depression Scale is used to diagnose depression [...] music. Avoid alcohol. Ask for help with heavy truck technician, cooking, grocery shopping, or running errands as needed. Do nottry to do everything. Talk to people close to you about how you are feeling. Get support from your partner, family members, and friends. Try to stay positive in how you think. Think about the things you are grateful for. Do not spend a lot of time alone. Only take zcmh-jcs-qcpcqex or prescription medicine as directed by your [...] not doing well or get worse. Resource: [facility]. This information is not intended to [...] Follow these instructions at home: Medicines Take lder-jge-acwfnuk and prescription medicines only as told by [...] 05/28/2005 Document Revised: 10/20/2018 Document Reviewed: 02/01/2017 [place] Patient Education 2020 [employer]. 11/12/2021 07:50:08 Delivery, Care After Delivery, Care [...] and water are not available, use hand orthopedic designer. ?If you have a dressing, change it [...] this until your incision heals. Medicines Take lsbz-nto-rudkpzk and prescription medicines only as told by [...] 10/23/2002 Document Revised: 08/09/2018 Document Reviewed: 08/09/2018 [place] Patient Education 2020 [employer] Follow Up Care 11/10/2021 12:05:16 With:APURVA SINGH MD Address: [address] [place] [address] [facility] [place] [address]- [phone] When: Unknown Comments:Please schedule followup post operative visit next week [facility] 09-29-2022 Note Postoperative day #2 progress [...] APURVA SINGH MD on 11/12/2021 08:31 AM [facility]09-28-2022 Evaluation + Plan noteExtracted from: Title:Clinical Document Author:BERONICA FLOYD MD Date:11/11/21 Subjective Good pain control, no further headache now. Lochia small. Tolerating regular diet. no nausea Objective Patient with normal gait in no acute distress. Pallor. Alert and oriented x3, cooperative Abdomen: Dressings clean and dry Soft, nontender. Extremities: Nontender, no redness, no edema, VITALS GwglubEkepQZGpguiYQAzI9SQE3BwbeEb(kg) 11/11 12:08--105/6376------.0 11/11 10:03--99/58872533RF39/27130.0 11/11 08:1836.5117/6472--100RA 11/11 06:02--111/37235252QZ 11/11 03:5436.897/30409936JF 24 Hr Tmax: 36.9 at 11/11 00:35 [...] 0, 11/10/21 20:53:00 EDT Problems (7) Anxiety (31291189) Body mass index 30+ - obesity (878303136) Depression (685380279) Encounter for supervision of normal in multigravida in third trimester (092332751) Migraine (88706895) () Previous section (000246671) ASSESSMENT/PLAN: POD#1 after repeat Yeast infection. Will start topicals & Betadine to incision Extracted from: Title:Clinical Document Author:BERONICA FLOYD MD Date:11/10/21 [place] ADMISSION HISTORY AN D PHYSICIAL CHIEF COMPLAINT: Severe headache not responding to medication and seeing spots in her visual field HISTORY OF PRESENT ILLNESS: 20-year-old white female 4 para 3 all by section presenting with the above symptoms for at least the second time. She was seen and evaluated for this last week and sent home on uhpc-xuk-bzvbppr medications she is back again today with [...] fluid or bleeding. ACTIVE PROBLEMS: (7) Anxiety (47955705) Body mass index 30+ - obesity (499896957) Depression (127440246) Encounter for supervision of normal in multigravida in third trimester (954969058) Migraine (09363203) (359082684) Previous section (186762385) MEDICATIONS: Active Inpt Meds: cefOXitin (Mefoxin) Start: [...] significant other and children PHYSICAL EXAM: VITALS: LyyllmQnjrGTKnkfyWWBbH1KVY8EmeoFe(kg) 11/10 12:45--109/4386--99--.0 11/10 12:38--118/4691--98--.0 11/10 12:1636.8111/19577402CR 24 Hr Tmax: 36.8 at 11/10 12:16 [...] Date:11/19/2021 09:45:00 AM Scheduled Provider:APURVA SINGH MD Location:[facility] Appointment Type:[facility] Future Scheduled Tests Laboratory* hCG, quantitative(AO) 03/23/21 * hCG, quantitative(AO) 03/29/21 * hCG, quantitative(AO) 02/16/21 * Panel (AO) 04/20/21 * Glucose 1 Hour Challenge 08/20/21 * Rapid Plasma Reagin Test 08/20/21 * Uric Acid 08/27/21 * 24 Hr Urine Total Protein (AO) 09/17/21 * Complete Blood Count 08/20/21 * 24 Hr Urine Creatinine (AO) 09/03/21 [facility] 09-27-2022 Note Patient mentioned that she [...] BERONICA FLOYD MD on 11/10/2021 07:04 PM [facility]09-27-2022 Note [place] ADMISSION HISTORY AND PHYSICIAL CHIEF COMPLAINT: Severe headache not responding to medication and seeing spots in her visual field HISTORY OF PRESENT ILLNESS: 20-year-old white female 4 para 3 all by section presenting with the above symptoms for at least the second time. She was seen and evaluated for this last week and sent home on pzwr-sze-txyxmfg medications she is back again today with [...] fluid or bleeding. ACTIVE PROBLEMS: (7) Anxiety (87811626) Body mass index 30+ - obesity (327816643) Depression (734789810) Encounter for supervision of normal in multigravida in third trimester (180880187) Migraine (95504750) (838894255) Previous section (317560727) MEDICATIONS: Active Inpt Meds: cefOXitin (Mefoxin) Start: [...] significant other and children PHYSICAL EXAM: VITALS: JdsitbKeqdLDWzkoyODGzN4LXN2GjzdXv(kg) 11/10 12:45--109/4386--99--30.0 11/10 12:38--118/4691--98--30.0 11/10 12:1636.8111/66590505IJ 24 Hr Tmax: 36.8 at 11/10 12:16 [...] BERONICA FLOYD MD on 11/10/2021 08:41 PM [facility]09-05-2022 Hospital Discharge instructions Patient Education 10/19/2021 16:14:35 [place] L&D Outpatient Instructions (AORN) [facility] OUTPATIENT HOME-GOING INSTRUCTIONS _X_ [...] crackers, bananas, Jell-O, cooked carrots, applesauce. ___ [place] diet. Avoid caffeine, chocolate, alcohol, spiced/greasy foods. [...] the nearest Emergency Room for assistance. Form 715496 D: 01/22 Follow Up Care 10/19/2021 15:28:05 With:BERONICA FLOYD MD Address: [address] [place] [address] [address] [facility] [address]- [phone] When: only if needed [facility] 08-26-2022 Hospital Discharge instructions Patient Education 10/09/2021 12:49:52 [place] L&D Outpatient Instructions (AORN) [facility] OUTPATIENT HOME-GOING INSTRUCTIONS _X_ [...] crackers, bananas, Jell-O, cooked carrots, applesauce. ___ [place] diet. Avoid caffeine, chocolate, alcohol, spiced/greasy foods. [...] the nearest Emergency Room for assistance. Form [id number] D: 01/22 Follow Up Care 10/09/2021 11:15:17 With:APURVA SINGH Address: [address] [place] [address] [facility] [address]- [phone] Business (1) When: Unknown [facility] 08-18-2022 Hospital Discharge instructions Patient Education 10/01/2021 11:18:34 7 - Labor and Delivery Outpatient Instructions(CUSTOM) [place] [facility] OUTPATIENT HOME-GOING INSTRUCTIONS _X_ [...] crackers, bananas, Jell-O, cooked carrots, applesauce. ___ [place] diet. Avoid caffeine, chocolate, alcohol, spiced/greasy foods. [...] the nearest Emergency Room for assistance. Form 638912 D: 01/22 Document Released: 01/31/2006 Document Revised: 01/20/2012 Document Reviewed: 01/31/2006 [facility] Patient Information 2012 [facility]. Follow Up Care 10/01/2021 10:21:31 With:APURVA SINGH Address: [address] [place] [address] [facility] [place] [address] [phone] Business (1) When: Unknown [facility] 07-28-2022 History of Present illness Narrative* Dianelys Marroquin APRN.SALES REPRESENTATIVE GRAPHIC ART - 09/10/2021 12:33 PM EDT Subjective HPI Lester Infante is a 20 year old female who presents to [facility] care for evaluation of body aches, diarrhea, and nausea for 3 days. She denies fever or associated URI symptoms. She took a COVID test at home yesterday it was negative. She is 28 weeks . She admits to having low back pain, lower abdominal cramping, and some bleeding with wiping this morning. She called her LABORATORY SPECIALIST but they are not in the office [...] further evaluation. Patient agreeable. Report sent to [facility] via ER passport. Dianelys Marroquin APRN.SALES REPRESENTATIVE GRAPHIC ART documented [facility] Hospital Discharge instructions Follow Up Care 09/07/2021 09:52:49 With:HOLLIS DUPREE, APURVA Paez Address: [address] [place] [address] [facility] [place] [address]- [phone] When: Unknown Comments:Follow-up as scheduled [facility] 07-13-2022 Hospital Discharge instructions Patient Education 08/26/2021 17:27:20 [place] L&D Outpatient Instructions (AORN) [facility] OUTPATIENT HOME-GOING INSTRUCTIONS _X_ [...] crackers, bananas, Jell-O, cooked carrots, applesauce. ___ [place] diet. Avoid caffeine, chocolate, alcohol, spiced/greasy foods. [...] the nearest Emergency Room for assistance. Form 857516 D: 01/22 Follow Up Care 08/26/2021 14:59:41 With:BERONICA FLOYD Address: [address] [place] [address] [facility] [place] [address]- [phone] Business (1) When: Unknown [facility] 05-01-2022 Hospital Discharge instructions Patient Education [...] muscle Coronary artery disease High blood pressure Mdn-ppyqk-nndvfgc causes: Certain medicines such as asthma inhalers [...] Tell your doctor about any prescription or whrd-iry-fjtuvjs or herbal medicines you take. Follow-up care [...] of the following: Weakness Dizziness Lightheadedness Fainting [id number] [employer]. [address] [place] [address]. All rights reserved. This information is not intended as a substitute for professional medical care. Always follow yourhealthcare professional's instructions. Follow Up Care 06/14/2021 14:03:58 With:Follow up with primary care provider Address:Unknown When:2-4 days [facility] 03-28-2022 Hospital Discharge instructions Patient Education 05/11/2021 14:34:31 7 - Labor and Delivery Outpatient Instructions ([facility]) [place] [facility] OUTPATIENT HOME-GOING INSTRUCTIONS _X_ [...] crackers, bananas, Jell-O, cooked carrots, applesauce. __x_ [place] diet. Avoid caffeine, chocolate, alcohol, spiced/greasy foods. [...] the nearest Emergency Room for assistance. Form 616703 D: 01/22 Document Released: 01/31/2006 Document Revised: 01/20/2012 Document Reviewed: 01/31/2006 [facility] Patient Information 2012 [employer]. Follow Up Care 05/11/2021 11:26:31 With:HOLLIS DUPREE, APURVA Paez Address: [phone] When: Unknown Comments:Follow-up as scheduled [facility] 12-12-2021 Hospital Discharge instructions Patient Education [...] foods again, start with small amounts of xyjz-lu-oumpjt, low- fat foods. These include apple sauce, [...] increase stomach acid. Don't use aspirin or sqlt-vms-xbjsiqt pain and fever medicines, if possible. This includes nonsteroidal anti-inflammatory drugs (NSAIDs). Lose excess weight. Finish eating at least 2 hours before you go to bed or lie down. Raise the head of your bed. [id number] [employer]. [address] [place] [address]. All rights reserved. This information is not intended as a substitute for professional medical care. Always follow yourhealthcare professional's instructions. Follow Up Care 01/25/2021 15:36:08 With:Follow up with primary care provider Address:Unknown When:2-4 days [facility] 07-19-2006 History of Past illness Narrative* Problem Noted Date Resolved Date ABSCESS FOOT (EXCEPT TOE)(Right plantar) 006 03/25/2015 documented as of this encounter (statuses as of 09/10/2021) [facility] Author Bill [facility] Note Date/Time October 09, 2024 11 :36am [facility] Medical Records Department [address] [place] [address] Emergency Department Summary 10/09/24 MR#: [id number] Acct: [id number] Name: LESTER INFANTE Rep #:[id number] : 2000 23 From: Bill Cazares PCP: Care Physician,No Primary Status :REG ER Location: ED HPI History of Present Illness Chief Complaint: Cough PFSH [facility] Medical History (Updated 10/09/24 @ 11:[address] Bill Oh, DO) Atrial tachycardia Urinary tract infection affecting Cholestasis during Heart palpitations Gestational diabetes Pre-eclampsia History of migraine History of kidney stones History of pre-eclampsia Anxiety and depression delivery delivered Home Medications ?Medication ?Instructions ?Recorded ?Last Taken ?Type NK 10/07/24 Unknown History albuterol sulfate 90 mcg/actuation 1 inh inhalation Q6 H PRN shortness 10/09/24 Unknown Rx breath activated powder inhaler of breath #1 ea prednisone 20 mg tablet 20 mg PO DAILY 5 days #5 TAB LETS 10/09/24 Unknown Rx Allergy/AdvReac Type Severity Reaction Status Date / Time No Known Allergies Allergy Verified 10/09/24 09:29 Family History Grandfather Hypertension Grandmother Diabetes CVA (cerebral vascular accident) Hypertension Lupus Grandfather Diabetes Myocardial infarction CAD (coronary artery disease) Hypertension Surgical History History of Social History Smoking Status: Never smoker EXAM Physical Exam Const Vital Signs: 10/09/24 08:49 10/09/24 09:20 10/09/24 09:29 Temperature 97.8 F Temperature Source Temporal Pulse Rate 104 H Respiratory Rate 20 H 16 Respiratory Effort Short of Breath Labored Respiratory Depth Deep Respiratory Pattern Normal Tachypnea Blood Pressure 168/81 H Blood Pressure Mean 110 Pulse Ox 100 Oxygen Delivery Method Room Air Room Air 10/09/24 11:17 Temperature Temperature Source Pulse Rate 104 H Respiratory Rate 16 Respiratory Effort Respiratory Depth Respiratory Pattern Blood Pressure 154/78 H Blood Pressure Mean 103 Pulse Ox 97 Oxygen Delivery Method Room Air MDM MDM MDM Narrative Medical decision making narrative: HISTORY OF PRESENT ILLNESS: Chief complaint: Cough 23-year-old female history of anxiety, depression, presents with cough. The patient states she has had 2 days of cough, congestion, feeling sick. No sick contacts. No hemoptysis, leg swelling, chest pain, history of blood clots. No shortness of breath when she exerts herself. Denies asthma or COPD. No smokinghistory. REVIEW OF SYSTEMS: Pertinent positives: Cough, dizziness with exertion Pertinent negatives: As per HPI PHYSICAL EXAM: Nursing triage notes reviewed, Vital signs reviewed Constitutional: please see mdm HENT: MMM Eyes: Pupils equal round and reactive to light, Extraocular muscles intact Neck: No stridor, no JVD, full neck ROM Lungs: slight end expiratory wheezes noted in bilateral lung masterson, no increased work of breathing, no conversational dyspnea, no accessory muscle use,no nasal flaring. No respiratory distress noted Heart: Regular rate and rhythm, No murmurs, No rubs and No gallops, 2+ distal pulses (radial, femoral, posterior tibial) in all extremities Abdomen: Soft, there is no tenderness, rigidity, rebound or guarding, no obviousperitoneal signs, no palpable pulsatile abdominal masses, no auscultated abdominal bruit : No CVAT Extremities: No edema Neuro: Alert and oriented x3, neuro exam at baseline, cranial nerves II through XII are intact. No pain with extraocular muscle movement. There is negative test of skew. 5 of 5 strength in upper and lower extremities in flexion extension. Intact sensation to light touch in upper and lower extremity dermatomes. No truncal or extremity ataxia. No dysdiadochokinesia. Normal gait. 2+ reflexes in upper and lower extremities. No meningeal signs. Negative Babinski. NIH of 0. Skin: No rash or lesions noted MEDICAL DECISION MAKING: Chief Complaint: please see [facility] External records reviewed: Reviewed prior imaging Factors affecting care as per [facility] Social determinants of health: none History obtained from others: none Consults: none [facility] Narrative: Patient was initially hemodynamically stable, afebrile and nontoxic-appearing. Exam with slight end expiratory wheezing I considered the following differential diagnosis: Pneumonia, viral illness, obstructive lung disease I obtained chest x-ray, viral swab to further determine if the patient was suffering from a life-threatening etiology. Initially treated with Tylenol ibuprofen and a breathing treatment. ALL IMAGES (IF OBTAINED) HAVE BEEN PERSONALLY REVIEWED AND INTERPRETED BY MYSELF. I have personally reviewed the patient's chest x-ray. Chest x-ray is unremarkable for pulmonary edema, pneumothorax, pneumonia or focal cardiopulmonary abnormality. On reevaluation patient's tachypnea improved. Lungs were less wheezy. Walking pulse ox showed acceptable 94% with exertion. Likely suffering from viral URI with some reactive airway disease. No clear indication for admission at this time no clear life-limiting etiology to be ascertained. The patient is appropriate discharge home. The patient and/or family, caregivers express understanding. The patient and/orfamily, caregivers agrees with the plan. Shared decision making: I will have a discussion with the patient and or visitors regarding risk/benefits of further testing or admission. They will be made aware of of the risk/benefits inherent in this decision they will be given the opportunity to voice understanding. Total critical care time today provided was at least 0 minutes. This excludes separately billable procedures. Critical care time (if documented) is secondary to the patient having high probability of clinically significant/life threatening deterioration in the patient's condition which required my urgent intervention. Impression: 1. Cough 2. Dyspnea Dispo: Discharge This note was generated with [employer] dictation software. It may contain incorrectwords, spelling, and punctuation that were not noted in review of the chart prior to signing. Radiography Diagnostic Testing: Clinical Impression(s) from Imaging Studies Chest X-Ray 10/09/24 09:04 IMPRESSION: NEGATIVE CHEST Reading Location: [id number] Discharge Plan Triage Chief Complaint: Cough ED Provider: Bill Oh Dx/Rx/DC Orders Clinical Impression: Viral URI Instructions: ED URI, Viral, No Abx (Adult) Prescriptions: New albuterol sulfate 90 mcg/actuation aerosol powdr breath activated 1 inh inhalation Q6H PRN (Reason: shortness of breath) Qty: 1 0RF prednisone 20 mg tablet 20 mg PO DAILY 5 Days Qty: 5 0RF No Action NK Primary Care Provider: Care Physician,No Primary Referrals: Care Physician,No Primary [Primary Care Provider] - Activity Restrictions/Additional Instructions: Thank you for trusting us with your care today! Your x-ray did not show signs of pneumonia. I suspect you are suffering from reactive airway disease secondary to a viral respiratory tract infection. Is treated with breathing treatments and steroids. Please take Tylenol (2 pills, 650 mg), ibuprofen (2 pills, 400 mg) every 6 hoursas needed for pain and fever control. Please return to the emergency department if your symptoms change or worsen. Please follow with your primary care physician for further outpatient evaluationand management. Print Language: Hungarian Disposition Disposition: Home, Self Care What to do if you have Problems For any increased pain, shortness of breath, bleeding, nausea or vomiting, chestpain, or any unexpected problems, contact your Primary Care Provider. Call [facility] ([phone]) or report to the closest Emergency Room. Call 911 if necessary. 10/09/24 3738 <Electronically signed by Bill Oh DO> Cosigner Signature (if applicable): CC: No Primary Care Physician ~ Signed [facility] Work Phone: Evaluation + Plan note Future Appointments Appointment Date:04/13/2021 10:00:00 AM Scheduled Provider:APURVA SINGH MD Location:[facility] Appointment Type:[facility] Annual Exam Future Scheduled Tests Laboratory* Glucose 1 Hour Challenge 04/14/20 * Glucose 1 Hour Challenge 03/17/20 * Glucose 1 Hour Challenge 02/25/20 * Glucose 1 Hour Challenge 03/24/20 * Glucose 1 Hour Challenge 02/14/20 * Urine Culture 08/14/20 * Complete Blood Count 03/17/20 * Complete Blood Count 02/25/20 * Complete Blood Count 03/24/20 * Fibronectin 01/14/20 Radiology* US OB Limited 05/14/20 [facility] Evaluation + Plan note Future Appointments Appointment Date:04/13/2021 10:00:00 AM Scheduled Provider:APURVA SINGH MD Location:[facility] Appointment Type:[facility] Annual Exam Future Scheduled Tests Laboratory* Glucose 1 Hour Challenge 04/14/20 * Glucose 1 Hour Challenge 03/17/20 * Glucose 1 Hour Challenge 02/25/20 * Glucose 1 Hour Challenge 03/24/20 * Glucose 1 Hour Challenge 02/14/20 * Urine Culture 08/14/20 * Complete Blood Count 03/17/20 * Complete Blood Count 02/25/20 * Complete Blood Count 03/24/20 Radiology* US OB Limited 05/14/20 [facility] Evaluation + Plan note Future Appointments Appointment Date:04/13/2021 10:00:00 AM Scheduled Provider:APURVA SINGH MD Location:[facility] Appointment Type:[facility] Annual Exam Future Scheduled Tests Laboratory* hCG, quantitative(AO) 02/16/21 * Glucose 1 Hour Challenge 04/14/20 * Glucose 1 Hour Challenge 03/17/20 * Glucose 1 Hour Challenge 02/25/20 * Glucose 1 Hour Challenge 03/24/20 * Glucose 1 Hour Challenge 02/14/20 * Urine Culture 08/14/20 * Complete Blood Count 03/17/20 * Complete Blood Count 02/25/20 * Complete Blood Count 03/24/20 Radiology* US OB Limited 05/14/20 [facility] Evaluation + Plan note Future Appointments Appointment Date:04/13/2021 10:00:00 AM Scheduled Provider:APURVA SINGH MD Location:[facility] Appointment Type: OV Annual Exam Future Scheduled Tests Laboratory* hCG, quantitative(AO) 02/16/21 * Glucose 1 Hour Challenge 04/14/20 * Glucose 1 Hour Challenge 03/17/20 * Glucose 1 Hour Challenge 02/25/20 * Glucose 1 Hour Challenge 03/24/20 * Urine Culture 08/14/20 * Complete Blood Count 03/17/20 * Complete Blood Count 02/25/20 * Complete Blood Count 03/24/20 Radiology* US OB Limited 05/14/20 [facility] Evaluation + Plan note Future Appointments Appointment Date:04/13/2021 10:00:00 AM Scheduled Provider:APURVA SINGH MD Location:[facility] Appointment Type: OV Annual Exam Appointment Date:04/13/2021 04:00:00 PM Scheduled Provider: Location:[facility] Appointment Type:US OB < 14 weeks Future Scheduled Tests Laboratory* hCG, quantitative(AO) 03/23/21 * hCG, quantitative(AO) 03/29/21 * hCG, quantitative(AO) 02/16/21 * Glucose 1 Hour Challenge 04/14/20 * Urine Culture 08/14/20 Radiology* US OB < 14 weeks 04/13/21 * US OB Limited 05/14/20 [facility] Evaluation + Plan note Future Appointments Appointment Date:04/20/2021 11:15:00 AM Scheduled Provider:APURVA SINGH MD Location:[facility] Appointment Type: OV Annual Exam Future Scheduled Tests Laboratory* hCG, quantitative(AO) 03/23/21 * hCG, quantitative(AO) 03/29/21 * hCG, quantitative(AO) 02/16/21 * Glucose 1 Hour Challenge 04/14/20 * Urine Culture 08/14/20 Radiology* US OB Limited 05/14/20 [facility] Evaluation + Plan note Future Appointments Appointment Date:05/04/2021 10:00:00 AM Scheduled Provider:APURVA SINGH MD Location:[facility] Appointment Type: OV OB Routine Follow Up Diagnostic Tests Pending * Panel (AO) 05/01/21 Future Scheduled Tests Laboratory* hCG, quantitative(AO) 03/23/21 * hCG, quantitative(AO) 03/29/21 * hCG, quantitative(AO) 02/16/21 * Panel (AO) 04/20/21 * Urine Culture 08/14/20 Radiology* US OB Limited 05/14/20 [facility] Evaluation + Plan note Future Appointments Appointment Date:05/25/2021 10:00:00 AM Scheduled Provider:APURVA SINGH MD Location:[facility] Appointment Type:[facility] OB Routine Follow Up Future Scheduled Tests Laboratory* hCG, quantitative(AO) 03/23/21 * hCG, quantitative(AO) 03/29/21 * hCG, quantitative(AO) 02/16/21 * Panel (AO) 04/20/21 * Urine Culture 08/14/20 Radiology* OB Limited 05/14/20 [facility] Evaluation + Plan note Future Appointments Appointment Date:06/22/2021 09:30:00 AM Scheduled Provider:APURVA SINGH MD Location:[facility] Appointment Type:[facility] OB Routine Follow Up Future Scheduled Tests Laboratory* hCG, quantitative(AO) 03/23/21 * hCG, quantitative(AO) 03/29/21 * hCG, quantitative(AO) 02/16/21 * Panel (AO) 04/20/21 * Urine Culture 08/14/20 [facility] Evaluation + Plan note Future Appointments Appointment Date:07/20/2021 10:00:00 AM Scheduled Provider: Location:[facility] Appointment Type:US OB Limited Appointment Date:07/20/2021 11:00:00 AM Scheduled Provider:BERONICA FLOYD MD Location:[facility] Appointment Type:[facility] OB Routine Follow Up Future Scheduled Tests Laboratory* hCG, quantitative(AO) 03/23/21 * hCG, quantitative(AO) 03/29/21 * hCG, quantitative(AO) 02/16/21 * Panel (AO) 04/20/21 * Urine Culture 08/14/20 Radiology* US OB Limited 07/20/21 [facility] Evaluation + Plan note Future Appointments Appointment Date:08/20/2021 11:45:00 AM Scheduled Provider:APURVA SINGH MD Location:[facility] Appointment Type:[facility] OB Routine Follow Up Future Scheduled Tests Laboratory* hCG, quantitative(AO) 03/23/21 * hCG, quantitative(AO) 03/29/21 * hCG, quantitative(AO) 02/16/21 * Panel (AO) 04/20/21 * Urine Culture 08/14/20 [facility] Evaluation + Plan note Future Appointments Appointment Date:09/17/2021 08:30:00 AM Scheduled Provider:APURVA SINGH MD Location:[facility] Appointment Type:[facility] OB Routine Follow Up Future Scheduled Tests Laboratory* hCG, quantitative(AO) 03/23/21 * hCG, quantitative(AO) 03/29/21 * hCG, quantitative(AO) 02/16/21 * Panel (AO) 04/20/21 * Glucose 1 Hour Challenge 08/20/21 * Rapid Plasma Reagin Test 08/20/21 * Complete Blood Count 08/20/21 [facility] Evaluation + Plan note Future Appointments Appointment Date:09/03/2021 09:00:00 AM Scheduled Provider:APURVA SINGH MD Location:[facility] Appointment Type:[facility] OB Routine Follow Up Future Scheduled Tests Laboratory* hCG, quantitative(AO) 03/23/21 * hCG, quantitative(AO) 03/29/21 * hCG, quantitative(AO) 02/16/21 * Panel (AO) 04/20/21 * Glucose 1 Hour Challenge 08/20/21 * Rapid Plasma Reagin Test 08/20/21 * Uric Acid 08/27/21 * Complete Blood Count 08/20/21 * Creatinine, 24 Hour Urine 08/27/21 * Protein 24 Hour Urine 08/27/21 [facility] Evaluation + Plan note Future Appointments Appointment Date:09/03/2021 09:00:00 AM Scheduled Provider:APURVA SINGH MD Location:[facility] Appointment Type: OV OB Routine Follow Up Future Scheduled Tests Laboratory* hCG, quantitative(AO) 03/23/21 * hCG, quantitative(AO) 03/29/21 * hCG, quantitative(AO) 02/16/21 * Panel (AO) 04/20/21 * Glucose 1 Hour Challenge 08/20/21 * Rapid Plasma Reagin Test 08/20/21 * Uric Acid 08/27/21 * Complete Blood Count 08/20/21 [facility] Evaluation + Plan note Future Appointments Appointment Date:09/24/2021 10:45:00 AM Scheduled Provider:APURVA SINGH MD Location:[facility] Appointment Type:[facility] OB Routine Follow Up Future Scheduled Tests [...] * 24 Hr Urine Creatinine (AO) 09/03/21 [facility] Evaluation + Plan note Future Appointments Appointment Date:09/24/2021 10:45:00 AM Scheduled Provider:APURVA SINGH MD Location:[facility] Appointment Type: OV OB Routine Follow [...] * 24 Hr Urine Creatinine (AO) 09/03/21 [facility] Evaluation + Plan note Future Appointments Appointment Date:10/08/2021 09:15:00 AM Scheduled Provider:APURVA SINGH MD Location:[facility] Appointment Type: OV OB Routine Follow Up Future Scheduled Tests Laboratory* hCG, quantitative(AO) 03/23/21 * hCG, quantitative(AO) 03/29/21 * hCG, quantitative(AO) 02/16/21 * Panel (AO) 04/20/21 * Glucose 1 Hour Challenge 08/20/21 * Rapid Plasma Reagin Test 08/20/21 * Uric Acid 08/27/21 * 24 Hr Urine Total Protein (AO) 09/17/21 * Complete Blood Count 08/20/21 * 24 Hr Urine Creatinine (AO) 09/03/21 [facility] Evaluation + Plan note Future Appointments Appointment Date:10/22/2021 09:45:00 AM Scheduled Provider:APURVA SINGH MD Location:[facility] Appointment Type:[facility] OB Routine Follow Up Future Scheduled Tests Laboratory* hCG, quantitative(AO) 03/23/21 * hCG, quantitative(AO) 03/29/21 * hCG, quantitative(AO) 02/16/21 * Panel (AO) 04/20/21 * Glucose 1 Hour Challenge 08/20/21 * Rapid Plasma Reagin Test 08/20/21 * Uric Acid 08/27/21 * 24 Hr Urine Total Protein (AO) 09/17/21 * Complete Blood Count 08/20/21 * 24 Hr Urine Creatinine (AO) 09/03/21 [facility] Evaluation + Plan note Future Appointments Appointment Date:11/09/2021 09:00:00 AM Scheduled Provider:APURVA SINGH MD Location:[facility] Appointment Type: OV OB Routine Follow Up Future Scheduled Tests Laboratory* hCG, quantitative(AO) 03/23/21 * hCG, quantitative(AO) 03/29/21 * hCG, quantitative(AO) 02/16/21 * Panel (AO) 04/20/21 * Glucose 1 Hour Challenge 08/20/21 * Rapid Plasma Reagin Test 08/20/21 * Uric Acid 08/27/21 * 24 Hr Urine Total Protein (AO) 09/17/21 * Complete Blood Count 08/20/21 * 24 Hr Urine Creatinine (AO) 09/03/21 [facility] Evaluation + Plan note Future Appointments Appointment Date:03/18/2022 10:30:00 AM Scheduled Provider:APURVA SINGH MD Location:[facility] Appointment Type:[facility] Future Scheduled Tests Laboratory* Pathology General Lot Attendant Request 02/18/22 * hCG, quantitative(AO) 03/23/21 * hCG, quantitative(AO) 03/29/21 * Panel (AO) 04/20/21 * Glucose 1 Hour Challenge 08/20/21 * Rapid Plasma Reagin Test 08/20/21 * Uric Acid 08/27/21 * 24 Hr Urine Total Protein (AO) 09/17/21 * Complete Blood Count 08/20/21 * 24 Hr Urine Creatinine (AO) 09/03/21 [facility] Evaluation + Plan note Future Appointments Appointment Date:05/31/2022 10:00:00 AM Scheduled Provider:APURVA SINGH MD Location:[facility] Appointment Type:[facility] Future Scheduled Tests Laboratory* Pathology General Lot Attendant Request 02/18/22 * Panel (AO) 04/20/21 * Glucose 1 Hour Challenge 08/20/21 * Rapid Plasma Reagin Test 08/20/21 * Uric Acid 08/27/21 * 24 Hr Urine Total Protein (AO) 09/17/21 * Complete Blood Count 08/20/21 * hCG, quantitative (AH) 04/15/22 * hCG, quantitative (AH) 04/18/22 * hCG, quantitative (AH) 04/21/22 * 24 Hr Urine Creatinine (AO) 09/03/21 [facility] Evaluation + Plan note Future Appointments Appointment Date:05/31/2022 10:00:00 AM Scheduled Provider:APURVA SINGH MD Location:[facility] Appointment Type: OV Future Scheduled Tests Laboratory* Pathology General Lot Attendant Request 02/18/22 * Glucose 1 Hour Challenge 08/20/21 * Rapid Plasma Reagin Test 08/20/21 * Uric Acid 08/27/21 * 24 Hr Urine Total Protein (AO) 09/17/21 * Complete Blood Count 08/20/21 * hCG, quantitative (AH) 04/15/22 * hCG, quantitative (AH) 04/18/22 * hCG, quantitative (AH) 04/21/22 * hCG, quantitative (AH) 04/26/22 * 24 Hr Urine Creatinine (AO) 09/03/21 [facility] Evaluation + Plan note Future Appointments Appointment Date:09/09/2022 10:45:00 AM Scheduled Provider:APURVA SINGH MD Location:[facility] Appointment Type:[facility] OB Routine Follow Up Future Scheduled Tests [...] IgG 08/26/22 * Varicella Zoster Antibody 08/26/22 [facility] Evaluation + Plan note Future Appointments Appointment Date:11/04/2022 10:00:00 AM Scheduled Provider:APURVA SINGH MD Location:[facility] Appointment Type:[facility] OB Routine Follow Up Diagnostic Tests Pending [...] Antibody 08/26/22 Radiology* US OB Limited 10/07/22 [facility] Evaluation + Plan note Future Appointments Appointment Date:11/01/2022 11:00:00 AM Scheduled Provider:APURVA SINGH MD Location:[facility] Appointment Type: OV OB Routine Follow Up Appointment Date:11/04/2022 10:00:00 AM Scheduled Provider:KIKI HIGHTOWER Location:[facility] Appointment Type:[facility] OB Routine Follow Up Future Scheduled Tests [...] Antibody 08/26/22 Radiology* US OB Limited 10/25/22 [facility] Evaluation + Plan note Future Appointments Appointment Date:11/22/2022 10:45:00 AM Scheduled Provider:APURVA SINGH MD Location:[facility] Appointment Type:[facility] OB Routine Follow Up Diagnostic Tests Pending [...] Antibody 08/26/22 Radiology* US OB Limited 10/25/22 [facility] Evaluation + Plan note Future Appointments Appointment Date:11/22/2022 10:45:00 AM Scheduled Provider:APURVA SINGH MD Location:[facility] Appointment Type:[facility] OB Routine Follow Up Future Scheduled Tests [...] Antibody 08/26/22 Radiology* US OB Limited 10/25/22 [facility] Evaluation + Plan note Future Appointments Appointment Date:12/06/2022 09:30:00 AM Scheduled Provider:APURVA SINGH MD Location:[facility] Appointment Type:[facility] OB Routine Follow Up Future Scheduled Tests [...] Antibody 08/26/22 Radiology* US OB Limited 10/25/22 [facility] Evaluation + Plan note Future Appointments Appointment Date:12/20/2022 10:15:00 AM Scheduled Provider:APURVA SINGH MD Location:[facility] Appointment Type: OV OB Routine Follow [...] Antibody 08/26/22 Radiology* US OB Limited 10/25/22 [facility] Evaluation + Plan note Future Appointments Appointment Date:12/30/2022 08:45:00 AM Scheduled Provider:APURVA SINGH MD Location:[facility] Appointment Type:[facility] OB Routine Follow Up Appointment Date:01/03/2023 08:30:00 AM Scheduled Provider:APURVA SINGH MD Location:[facility] Appointment Type:[facility] Future Scheduled Tests Laboratory* hCG, quantitative(AO) 07/04/22 [...] Antibody 08/26/22 Radiology* US OB Limited 10/25/22 [facility] Evaluation + Plan note Future Appointments Appointment Date:01/10/2023 08:30:00 AM Scheduled Provider:APURVA SINGH MD Location:[facility] Appointment Type:[facility] OB Routine Follow Up Diagnostic Tests Pending [...] Antibody 08/26/22 Radiology* US OB Limited 10/25/22 [facility] Evaluation + Plan note Future Appointments Appointment Date:01/10/2023 08:30:00 AM Scheduled Provider:APURVA SINGH MD Location:[facility] Appointment Type:[facility] OB Routine Follow Up Future Scheduled Tests [...] Antibody 08/26/22 Radiology* US OB Limited 10/25/22 [facility] Evaluation + Plan note Future Appointments Appointment Date:09/29/2023 10:00:00 AM Scheduled Provider: Location:[facility] Appointment Type:US OB Limited Appointment Date:10/06/2023 09:30:00 AM Scheduled Provider:APURVA SINGH MD Location:[facility] Appointment Type: OV OB Routine Follow [...] 09/08/23 * Varicella Zoster Antibody 09/08/23 Radiology* OB Limited 10/25/22 * OB Limited 09/29/23 [facility] Evaluation + Plan note Future Appointments Appointment Date:09/29/2023 10:00:00 AM Scheduled Provider: Location:[facility] Appointment Type:US OB Limited Appointment Date:10/06/2023 09:30:00 AM Scheduled Provider:APURVA SINGH MD Location:[facility] Appointment Type:[facility] OB Routine Follow Up Diagnostic Tests Pending * Rapid Plasma Reagin Test 09/23/23 * Rubella Antibody 09/23/23 * Varicella Zoster Antibody 09/23/23 Future Scheduled Tests Laboratory* .Glucose 1 Hour 01/08/23 * .Glucose 2 Hour 01/08/23 * .Glucose 3 Hour 01/08/23 * Urine Culture 12/30/22 * Urine Culture 09/08/23 Radiology* US OB Limited 10/25/22 * OB Limited 09/29/23 [facility] Evaluation + Plan note Future Appointments Appointment Date:10/06/2023 09:30:00 AM Scheduled Provider:APURVA SINGH MD Location:[facility] Appointment Type: OV OB Routine Follow Up Future Scheduled Tests Laboratory* .Glucose 1 Hour 01/08/23 * .Glucose 2 Hour 01/08/23 * .Glucose 3 Hour 01/08/23 * Urine Culture 12/30/22 * Urine Culture 09/08/23 Radiology* OB Limited 10/25/22 [facility] Evaluation + Plan note Future Appointments Appointment Date:11/24/2023 08:45:00 AM Scheduled Provider:APURVA SINGH MD Location:[facility] Appointment Type:[facility] OB Routine Follow Up Future Scheduled Tests [...] Culture 09/08/23 * Complete Blood Count 11/03/23 [facility] Evaluation + Plan note Future Appointments Appointment Date:11/24/2023 08:45:00 AM Scheduled Provider:APURVA SINGH MD Location:[facility] Appointment Type:[facility] OB Routine Follow Up Future Scheduled Tests Laboratory* .Glucose 1 Hour 01/08/23 * .Glucose 1 Hour 11/03/23 * .Glucose 2 Hour 01/08/23 * .Glucose 2 Hour 11/03/23 * .Glucose 3 Hour 01/08/23 * .Glucose 3 Hour 11/03/23 * Glucose 1 Hour Challenge 11/03/23 * Rapid Plasma Reagin Test 11/03/23 * Urine Culture 12/30/22 * Urine Culture 09/08/23 * Complete Blood Count 11/03/23 [facility] Evaluation + Plan note Future Appointments Appointment Date:12/05/2023 10:15:00 AM Scheduled Provider:APURVA SINGH MD Location:[facility] Appointment Type:[facility] OB Routine Follow Up Future Scheduled Tests [...] Count 11/21/23 * Complete Blood Count 11/03/23 [facility] Evaluation noteNo assessment information available [facility] Work Phone: Evaluation note* Diagnosis Lower abdominal pain- Primary Abdominal pain, other specified site Vaginal bleeding in , third trimester [facility] Diagnosis Genetic testing Other investigation and testing for procreative management [facility]* Diagnosis Onset Date Resolution Status Blurry vision acute Vaginal bleeding during , antepartum acute [facility] Work Phone: Evaluation note* Diagnosis Onset Date Resolution Status Blurry vision acute Vaginal bleeding during , antepartum acute Dizziness, nonspecific acute [facility] Work Phone: Evaluation note* Diagnosis Chest congestion- Primary Other symptoms involving respiratory system and chest Acute cough [facility]* Diagnosis Acute cough- Primary Influenza-like illness Influenza with other respiratory manifestations Acute cough [facility]* Diagnosis Acute cough [facility]* Diagnosis Pain- Primary Generalized pain Pain Generalized pain [facility]* Diagnosis Pain Generalized pain [facility]* Diagnosis Foot pain, left- Primary Pain in limb Acute left ankle pain Foot pain, left Pain in limb Acute left ankle pain [facility]* Diagnosis Foot pain, left Pain in limb Acute left ankle pain [facility]* Diagnosis Foot pain, left- Primary Pain in limb [facility]* Diagnosis Acute cough- Primary Viral URI with cough Acute upper respiratory infections of unspecified site Acute cough [facility]* Diagnosis Acute cough [facility] Topher H[facility] December 02, 2022 8:37am Note Date/Time December 02, 2022 8 :37am [facility] Medical Records Department [address] [place] [address] OB Triage Physician Note 12/02/22 0834 MR#: [id number] Acct: [id number] Name: LESTER INFANTE Rep #:[id number] : 2000 22 From: Topher Hancock MD PCP: Care Physician,No Primary Status :REG CLI Y Location: [place] [address] HPI - General General Date of Service: 12/02/22 HPI Narrative LESTER INFANTE, is a 22 F who presents with dizziness at times. Per RN she wasseen yesterday for this and no change. Maternal Data Information Final YOANDY: 03/13/23 Gestational age: 25&4 weeks PFSH PFSH Medical History Anxiety and depression delivery delivered [...] MD; No Primary Care Physician ~ Signed [facility] Work Phone: Hospital course Narrative No data available for this section [facility] Hospital Discharge instructions No data available for this section [facility] Hospital Discharge instructions Additional Instructions call and follow up with your doctor.[facility] Work Phone: Hospital Discharge instructionsAdditional Instructions Thank you for trusting us with your care today! Your x-ray did not show signs of pneumonia. I suspect you are suffering from reactive airway disease secondary to a viral respiratory tract infection. Is treated with breathing treatments and steroids. Please take Tylenol (2 pills, 650 mg), ibuprofen (2 pills, 400 mg) every 6 hours as needed for pain and fever control. Please return to the emergency department if your symptoms change or worsen. Please follow with your primary care physician for further outpatient evaluation and management.[facility] Work Phone: Note* FRANNY ABURTO MD: SIGN, VERIFY Event Display: VL Venous US/Doppler Both Legs [facility] No data available for this section [facility] Reason for referral (narrative)No reason for referral information [facility] Work Phone: Reason for visit Narrative* Diagnostic Procedure Only (Urgent) - Closed Specialty Diagnoses / Procedures Referred By Contac t Referred To Contact XR IMAGING Diagnoses Pain Procedures XR FOOT GENERAL 3V AP/LAT/OBL LEFT RADEX FOOT COMPLETE MINIMUM 3 VIEWS Naye Hancock APRN.[employer] [address] [place] [address] Phone: tel: fax: [place] [address] Referral ID Status Reason Start Date Expiration Date V isits Requested Visits Authorized [id number] Closed Auto-Generate d Referral 04/19/2024 05/19/2025 1 1 [facility] Diagnostic Procedure Only (Urgent) - Closed Specialty Diagnoses / Procedures Referred By Contac t Referred To Contact XR IMAGING Diagnoses Foot pain, left Acute left ankle pain Procedures XR FOOT GENERAL 3V AP/LAT/OBL LEFT RADEX FOOT COMPLETE MINIMUM 3 VIEWS Yasmin Sue PA [address] [place] [address] Phone: tel: fax: [place] [address] Referral ID Status Reason Start Date Expiration Date V isits Requested Visits Authorized [id number] Closed Auto-Generate d Referral 05/14/2024 06/13/2025 1 1 [facility] Chief Complaint and Reason for Visit [...] during , antepartum Dizziness, nonspecific Chief Complaint Admit Date lower extrem October 07, 2024 6: 00am Chief Complaint Admit Date lower extrem October 07, 2024 6: 00am cough October 09, 2024 8: 49am Advance Directives No Advanced Directives Records Found Advance Directive Response Recorded Date/ Time Advance Directives No March 9:07pm Living Will No June 03, 2021 7:29pm Power of Technology Director No June 03 7:29pm Advance Directive Response Recorded Date/ Time Advance Directives No March 8:07pm Living Will No June 03, 2021 6:29pm Power of Technology Director No June 03 6:29pm Advance Directive Response Recorded Date/ Time Advance Directives No March 9:07pm Living Will No April 26, 2022 6:06pm Power of Technology Director No April 26 6:06pm Advance Directive Response Recorded Date/ Time Advance Directives No March 8:07pm Living Will No April 26, 2022 5:06pm Power of Technology Director No April 26 5:06pm Advance Directive Response Recorded Date/ Time Do you have a Healthcare Power of Technology Director? No October 07, 2024 6:05am Advance Directives No March 9:07pm Advance Directive Response Recorded Date/ Time Do you have a Healthcare Power of Technology Director? No October 09, 2024 9:28am Do you have a Healthcare Power of Technology Director? No October 07, 2024 6:05am Advance Directives No March 9:07pm Family History No Family History Records Found [...] Care Team (unrecognized sect ion and content) Team Status: Active Member Role/Relationship Status Dates No Primary Care Physician Primary Care Provider Active Team Status: Inactive Member Role/Relationship Status Dates No Primary Care Physician Primary Care Provider Active Start: October 07, 2024 End: October 07, 2024 Dr. Buddy Doty , Emergency Provider Active Start: October 07, 2024 End: October 07, 2024 Care Team Personnel Name: PHYSICIAN, NONE Position: Physician Member Role: Primary Care Physician Name: RODNEY Stephen Position: OB RN Member Role: RN Care Team Related Persons Name: RILEY RUIZ Address: Home [address] [place], [place] [id number] Name: JOSEPH AXEL Edilia Address: Home [address] [place], [place] [id number] Name: ORTIZ RUIZ Address: Home [address] [place], [place] [id number] Name: REJI RUIZ Address: [address] [place], [place] [address] Name: ALICIA RUIZ Address: Home [address] [place], [place] [id number] Name: JOSEPH HILARY Care Team Personnel Name: PHYSICIAN, NONE Position: Physician Member Role: Primary Care Physician Name: Citlali Castellon RN Position: OB RN Member Role: RN Name: RODNEY Saavedra Position: OB RN Member Role: RN Care Team Related Persons Name: RILEY RUIZ Address: [address] [place], [place] [id number] [place] Name: AXEL RUIZ Address: [address] [place], [place] [address] Name: RUIZZABRINAN Dar Address: Home [address] [place], [place] [id number] Name: REJI RUIZ Address: [address] [place], [place] [address] Name: JOSEPH HILARY Care Team Personnel Name: PHYSICIAN, NONE Position: Physician Member Role: Primary Care Physician Name: Kiki Bonilla RN Position: OB RN Member Role: RN Care Team Related Persons Name: RILEY RUIZ Address: Home [address] [place], [place] [id number] [place] Name: AXEL RUIZ Address: [address] [place], [place] [address] Name: ORTIZ RUIZ Address: Home [address] [place], [place] [address] Name: REJI RUIZ Address: [address] [place], [place] [phone] Name: RUIZ, HILARY Care Team Personnel Name: [...] RILEY RUIZ Address: [address] [place] [address] [place] Name: RUIZAXEL Address: [address] [place], [place] [phone] Name: ORTIZ RUIZ Address: [address] [place], [place] [id number] Name: JOSEPH REJI Cazares Address: [address] [place] [id number] Name: HILARY RUIZ Care Team Personnel Name: PHYSICIAN, NONE Position: Physician Member Role: Primary Care Physician Name: RODNEY Borges Position: OB RN Member Role: RN Name: Mine Romo RN Position: OB RN Member Role: RN Care Team Related Persons Name: RILEY RUIZ Address: [address] [place] [place], [place] [address] [place] Name: AXEL RUIZ Address: [address] [place], [place] [address] Name: ZABRINA RUIZN Dar Address: [address] [place], [place] [id number] Name: JOSEPH REJI Cazares Address: Home [address] [place], [place] [id number] Name: HILARY RUIZ Corn Miller Relationship Specialty Start Date End Date Abimbola Dewitt, DO [address] [place] [address] PCP - General 12/03/19 Beatriz Rodgers MD [place], [place] [id number] Attending Physician Medical Clinical Genetics 10/06/22 Care Team Personnel Name: PHYSICIAN, NONE Position: Physician Member Role: Primary Care Physician Care Team Related Persons Name: RILEY RUIZ Address: Home [address] [place], [place] [address] [place] Name: AXEL RUIZ Address: [address] [place], [place] [id number] Name: ZABRINA RUIZN Dar Address: [address] [place], [place] [phone] Name: RUIZ REJI Cazares Address: Home [address] [place] [address] Name: HILARY RUIZ Team Status: Active Member Role Status Dates No Primary Care Physician Family Provider Active No Primary Care Physician Primary Care Provider Active Team Status: Inactive Member Role Status Dates No Primary Care Physician Primary Care Provider Active Ed Physician Provider Emergency Provider Active Corn Miller Relationship Specialty Start Date End Date Liz Thompson PCP - General Pediatrics 04/11/13 Personnel Name: PHYSICIAN, PATIENT UNSURE Care Team (unrecognized sect ion and content) Care Team Personnel Name: PHYSICIAN, PATIENT UNSURE Member Role: Primary Care Physician Care Team Related Persons Name: RILEY RUIZ Address: [address] [place] [id number] [place] Name: JOSEPHAXEL Address: [address] [place], [place] [address] Name: REJI RUIZ Address: [address] [place] [id number] Name: HILARY RUIZ Care Team Personnel Name: PHYSICIAN, PATIENT UNSURE Member Role: Primary Care Physician Care Team Related Persons Name: RILEY RUIZ Address: [address] [place] [id number] [place] Name: JOSEPHAXEL Address: [address] [place] [phone] Name: REJI RUIZ Address: [address] [place], [place] [address] Name: HILARY RUIZ Care Team Personnel Name: PHYSICIAN, PATIENT UNSURE Member Role: Primary Care Physician Care Team Related Persons Name: RILEY RUIZ Address: [address] [place], [place] [address] [place] Name: AXEL RUIZ Address: [address] [place], [place] [address] Name: REJI RUIZ Address: [address] [place] [phone] Name: HILARY RUIZ Care Team Personnel Name: PHYSICIAN, PATIENT UNSURE Member Role: Primary Care Physician Care Team Related Persons Name: RILEY RUIZ Address: [address] [place] [address] [place] Name: AXEL RUIZ Edilia Address: [address] [place] [id number] Name: REJI RUIZ Sage Address: [address] [place] [phone] Name: HILARY RUIZ Care Team Personnel Name: PHYSICIAN, PATIENT UNSURE Member Role: Primary Care Physician Care Team Related Persons Name: RILEY RUIZ Address: [address] [place], [place] [phone] [place] Name: AXEL RUIZ Edilia Address: [address] [place], [place] [address] Name: REJI RUIZ O Address: [address] [place], [place] [address] Name: HILARY RUIZ Care Team Personnel Name: PHYSICIAN, PATIENT UNSURE Member Role: Primary Care Physician Care Team Related Persons Name: RILEY RUIZ Address: [address] [place], [place] [address] [place] Name: AXEL RUIZ Edilia Address: [address] [place], [place] [address] Name: REJI RUIZ O Address: [address] [place], [place] [phone] Name: HILARY RUIZ Care Team Personnel Name: PHYSICIAN, PATIENT UNSURE Member Role: Primary Care Physician Care Team Related Persons Name: RILEY RUIZ Address: [address] [place] [address] [place] Name: AXEL RUIZ Edilia Address: [address] [place], [place] [address] Name: REJI RUIZ O Address: [address] [place], [place] [address] Name: HILARY RUIZ Care Team Personnel Name: PHYSICIAN, PATIENT UNSURE Member Role: Primary Care Physician Care Team Related Persons Name: RILEY RUIZ Address: [address] [place], [place] [phone] [place] Name: RUIZAXEL PEREZ Edilia Address: [address] [place], [place] [address] Name: REJI RUIZ O Address: [address] [place], [place] [address] Name: HILARY RUIZ Care Team Personnel Name: PHYSICIAN, PATIENT UNSURE Member Role: Primary Care Physician Care Team Related Persons Name: RILEY RUIZ Address: [address] [place], [place] [address] [place] Name: AXEL RUIZ Edilia Address: [address] [place], [place] [address] Name: REJI RUIZ O Address: [address] [place], [place] [address] Name: HILARY RUIZ Care Team Personnel Name: PHYSICIAN, PATIENT UNSURE Member Role: Primary Care Physician Care Team Related Persons Name: JOSEPH RILEY Tam Address: [address] [place], [place] [address] [place] Name: AXEL RUIZ Address: [address] [place], [place] [address] Name: REJI RUIZ Address: [address] [place], [place] [address] Name: HILARY RUIZ Care Team Personnel Name: PHYSICIAN, PATIENT UNSURE Member Role: Primary Care Physician Care Team Related Persons Name: RILEY RUIZ Address: [address] [place], [place] [address] [place] Name: AXEL RUIZ Address: [address] [place], [place] [address] Name: ORTIZ RUIZ Address: [address] [place], [place] [id number] Name: REJI RUIZ Address: [address] [place], [place] [address] Name: HILARY RUIZ Care Team Personnel Name: PHYSICIAN, PATIENT UNSURE Member Role: Primary Care Physician Care Team Related Persons Name: RILEY RUIZ Address: [address] [place], [place] [phone] [place] Name: AXEL RUIZ Address: [address] [place], [place] [address] Name: ORTIZ RUIZ Address: [address] [place], [place] [address] Name: REJI RUIZ Address: [address] [place], [place] [address] Name: HILARY RUIZ Care Team Personnel Name: PHYSICIAN, NONE Position: Physician Member Role: Primary Care Physician Care Team Related Persons Name: RILEY RUIZ Address: [address] [place], [place] [address] [place] Name: AXEL RUIZ Address: [address] [place], [place] [address] Name: ORTIZ RUIZ Address: [address] [place], [place] [address] Name: REJI RUIZ Address: [address] [place], [place] [address] Name: HILARY RUIZ Care Team Personnel Name: PHYSICIAN, NONE Position: Physician Member Role: Primary Care Physician Care Team Related Persons Name: RILEY RUIZ Address: [address] [place], [place] [address] [place] Name: AXEL RUIZ Address: [address] [place], [place] [address] Name: ORTIZ RUIZ Address: Home [address] [place] [id number] Name: REJI RUIZ Address: [address] [place], [place] [address] Name: HILARY RUIZ Care Team Personnel Name: PHYSICIAN, NONE Position: Physician Member Role: Primary Care Physician Care Team Related Persons Name: RILEY RUIZ Address: [address] [place], [place] [address] [place] Name: AXEL RUIZ Address: [address] [address] [facility] [place] [address] Name: ORTIZ RUIZ Address: Home [address] [place] [id number] Name: REJI RUIZ Address: [place] [address] [place], [place] [address] Name: RUIZHILARY PEREZ Source Comments (unrecognize d section and content) In the event this informatio n is protected by the Federal Confidentiality of Alcohol and Drug Abuse Patient Records regulations: The Federal rules restrict any use of the information to criminally investigate or prosecute any alcohol or drug abuse patient.[facility] the event this information is protected by the Federal Confidentiality of Alcohol and Drug Abuse Patient Records regulations: The Federal rules restrict any use of the information to criminally investigate or prosecute any alcohol or drug abuse patient.[facility] the event this information is protected by the Federal Confidentiality of Alcohol and Drug Abuse Patient Records regulations: The Federal rules restrict any use of the information to criminally investigate or prosecute any alcohol or drug abuse patient.[facility] the event this information is protected by the Federal Confidentiality of Alcohol and Drug Abuse Patient Records regulations: The Federal rules restrict any use of the information to criminally investigate or prosecute any alcohol or drug abuse patient.[facility] the event this information is protected by the Federal Confidentiality of Alcohol and Drug Abuse Patient Records regulations: The Federal rules restrict any use of the information to criminally investigate or prosecute any alcohol or drug abuse patient.[facility] the event this information is protected by the Federal Confidentiality of Alcohol and Drug Abuse Patient Records regulations: The Federal rules restrict any use of the information to criminally investigate or prosecute any alcohol or drug abuse patient.[facility] the event this information is protected by the Federal Confidentiality of Alcohol and Drug Abuse Patient Records regulations: The Federal rules restrict any use of the information to criminally investigate or prosecute any alcohol or drug abuse patient.[facility] the event this information is protected by the Federal Confidentiality of Alcohol and Drug Abuse Patient Records regulations: The Federal rules restrict any use of the information to criminally investigate or prosecute any alcohol or drug abuse patient.[facility] the event this information is protected by the Federal Confidentiality of Alcohol and Drug Abuse Patient Records regulations: The Federal rules restrict any use of the information to criminally investigate or prosecute any alcohol or drug abuse patient.[facility] the event this information is protected by the Federal Confidentiality of Alcohol and Drug Abuse Patient Records regulations: The Federal rules restrict any use of the information to criminally investigate or prosecute any alcohol or drug abuse patient.[facility] the event this information is protected by the Federal Confidentiality of Alcohol and Drug Abuse Patient Records regulations: The Federal rules restrict any use of the information to criminally investigate or prosecute any alcohol or drug abuse patient.[facility] the event this information is protected by the Federal Confidentiality of Alcohol and Drug Abuse Patient Records regulations: The Federal rules restrict any use of the information to criminally investigate or prosecute any alcohol or drug abuse patient.[facility] Reason for Visit (unrecogniz ed section and content) Reason Comments Diarrhea Pt denied blood, muc us nausea, body aches pain rated 3, x3 days Follow Up Pt reported 28 wk pr egnancy, reported +FM Specialty Diagnoses / Procedures Referred By Contac t Referred To Contact Lab Diagnoses Genetic testing Procedures 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 [address] Referral ID Status Reason Start Date Expiration Date Visits Re quested Visits Authorized [id number] Open 10/06/2022 10/06/2023 1 1 Reason Comments [...] 1 month, seen here 2 previous times Reason Comments Cough DUNNE, chest congestion , sob x 2 days INFORMATION SOURCE (unrecogn ized section and content) DATE CREATED AUTHOR 10/02/2023 [facility] ([place]) DATE CREATED AUTHOR AUTHOR'S ORGANIZ ATION 12/03/2023 [facility] DATE CREATED AUTHOR AUTHOR'S ORGANIZ ATION 01/11/2024 [facility] DATE CREATED AUTHOR AUTHOR'S ORGANIZ ATION 01/19/2024 [facility] DATE CREATED AUTHOR AUTHOR'S ORGANIZ ATION 10/13/2024 [facility] DATE CREATED AUTHOR AUTHOR'S ORGANIZ ATION 10/17/2024 [facility] FOR RECORDS PERTAINING TO PATIENTS WHO [...] BE BASED ON THE PRIMARY CLINICAL RECORDS. [employer] [facility]. provides no warranty or guarantee of the accuracy or completeness of information in this document.
[2024-10-28 11:44] LABS: Red Blood Cells-Urine > 100 SEEN /hpf (0-5)
[2024-10-28 11:56] LABS: AST(SGOT) 38 U/L (<=31); Alanine Aminotransfer ALT/SGPT 35 U/L (<=34); Albumin, Serum 4.2 g/dL (3.5-5.0); Alkaline Phosphatase 122 U/L (35-104); Anion Gap 13 (5-15); BUN 10 mg/dL (4-19); BUN/Creat Ratio 11.5 RATIO (10-20); Calcium,Total 9.1 mg/dL (7.6-11.0); Carbon Dioxide 17.2 mmol/L (21.0-32.0); Chloride 106 mmol/L (98-108); Estimated Creatinine Clearance 129.50 ml/min (50-250); Globulin 4.2 g/dL (2.2-4.2); Glucose 97 mg/dL (70-99); Potassium 3.8 mmol/L (3.3-5.1)
[2024-10-28 12:26] LABS: Internal QC Validated? YES +Cl - CLEAR BKGD; Pregnancy, Serum, hCG Quali. NEGATIVE Negative; Record Kit Lot#, Serum Preg. 764736
[2024-10-28 12:50] VITALS: BP 111/43; PULSE 88; RESP 16; O2SAT 96
--- NOTE | 2024-10-28 13:01 | US_ITS ---
PROCEDURE: TRANSVAGINAL NON- 10/28/2024 REASON FOR EXAM: R PELVIS PAIN, VAG BLEEDING TECHNIQUE: Procedure Code: USTVAG Modality: US Procedure: TRANSVAGINAL NON-. Transvaginal grayscale, color and spectral Doppler pelvic ultrasound. COMPARISON: 04/26/2022 FINDINGS: ENDOMETRIUM: Trilaminar. Normal thickness of 8.0 mm. No abnormal endometrial color Doppler flow. UTERUS: Normal size and contour measuring 10.5 x 6.4 x 4.9 cm. Heterogeneous uterine parenchyma. No fibroid detected. CERVIX: Normal size and contour. Few small cervical nabothian cysts. RIGHT OVARY: Normal size and appearance measuring 4.2 x 2.5 x 2.1 cm. Normal follicles. Normal blood flow. No adnexal mass. LEFT OVARY: Normal size and appearance measuring 2.5 x 2.0 x 2.0 cm. Normal follicles. Normal blood flow. No adnexal mass. FREE FLUID: No free fluid. OTHER: Mobile debris within the urinary bladder. US/Transvaginal Non- IMPRESSION: Debris within the urinary bladder, may represent blood products or infectious/p roteinaceous material. Reading Location: [id number]
[2024-10-28 14:00] VITALS: BP 144/44; PULSE 63; RESP 16; O2SAT 100
--- NOTE | 2024-10-28 14:20 | CM.ED ---
Social Work Date of referral: 10/28/24 Reason for referral: No Primary Care Physician (PCP) on file Referred by: Social Work identification Patient provided consent to social work visit and stated she did recently get connected to a PCP through the [facility] however wasn't able to remember the name. Patient therefore declined the need for any additional resources at this time. Karina Garcia, VP SOFTWARE, [employer]
[2024-10-28 17:05] VITALS: BP 130/52; PULSE 93; RESP 16; O2SAT 100
[2024-10-28 17:49] VITALS: BP 130/70; PULSE 82; RESP 16; TEMP 36.8; O2SAT 100
== END 2024-10-28 17:55 | disposition home or self-care (01) ==
PROVIDERS: Emergency Provider Emergency Medicine; Visit Provider Emergency Medicine
DX: N93.8 Other specified abnormal uterine and vaginal bleeding (principal); M25.512 Pain in left shoulder; R10.2 Pelvic and perineal pain; E66.9 Obesity, unspecified
CPT/HCPCS: 74177; 76830; 80053; 81001; 84703; 85025; 93976; 96374; 96375; 99285; Q9967; A4216; J2405

== ENCOUNTER 2024-10-31 14:40 | Emergency (ER) | payer MEDICAID, SELFPAY ==
[2024-10-31 14:41] VITALS: BP 145/85; PULSE 85; RESP 15; TEMP 36.4; O2SAT 96; BMI 51.0
--- NOTE | 2024-10-31 15:07 | EX.ED.DYSGE1 ---
HPI History of Present Illness Chief Complaint: Abd Pain Narrative Narrative: Chief complaint and HPI: 24-year-old female who is A0 and had a tubal ligation with her last presents for evaluation of right lower quadrant abdominal pain. On chart review, patient was seen on 10/28 for same complaint. At that time she did have some vaginal bleeding but it was intermittent. States it since resolved. States she has continued to have episodic right lower quadrant abdominal pain. Worse with eating. Endorses decreased p.o. intake and nausea. Denies any fever, chills, shortness of breath, chest pain, diarrhea, constipation, dysuria, hematuria. States she tried to follow-up with her PCP however there was no appointments available. She states she is about to start her menstrual cycle in 1 week. Denies any vaginal discharge or pain. No concern for STI. Has been taking Tylenol and Advil. Review of systems: See HPI Medications: As listed on the chart Allergies: As listed on the chart PFSH: Per chart Vital signs: As listed on the chart. Reviewed. Physical exam: Gen: A&O x3, NAD Head: Normocephalic, atraumatic Eyes: No sclera icterus, conjunctiva clear ENT: Moist mucous membranes Neck: Trachea midline, No JVD CV: RRR, no murmurs, no peripheral edema Resp: Lungs CTA BL, no w/r/c GI: Abd soft, non-distended, mildly tender to palpation in the right lower quadrant, no r/r/g : No CVA tenderness Musc: Full ROM, no deformity Skin: Warm, dry Neuro: Alert, oriented, grossly intact, sensation intact Psych: Cooperative, appropriate mood and affect [facility] Medical History Atrial tachycardia Urinary tract infection affecting Cholestasis during Heart palpitations Gestational diabetes Pre-eclampsia History of migraine History of kidney stones History of pre-eclampsia Anxiety and depression delivery delivered Home Medications ?Medication ?Instructions ?Recorded ?Last Taken ?Type ondansetron 4 mg disintegrating 4 mg PO Q8H PRN PRN Nausea #10 tabs 10/28/24 Unknown Rx tablet Allergy/AdvReac Type Severity Reaction Status Date / Time No Known Allergies Allergy Verified 10/31/24 14:42 Family History Grandfather Hypertension Grandmother Diabetes CVA (cerebral vascular accident) Hypertension Lupus Grandfather Diabetes Myocardial infarction CAD (coronary artery disease) Hypertension Surgical History History of Social History Smoking Status: Never smoker EXAM Physical Exam Const Vital Signs: 10/31/24 14:41 Temperature 97.6 F L Temperature Source Oral Pulse Rate 85 Respiratory Rate 15 Blood Pressure 145/85 H Blood Pressure Mean 105 Pulse Ox 96 Oxygen Delivery Method Room Air MDM MDM MDM Narrative Medical decision making narrative: 24-year-old female who is A0 and had a tubal ligation with her last presents for evaluation of right lower quadrant abdominal pain. On chart review, patient was seen on 10/28 for same complaint. At that time she did have some vaginal bleeding but it was intermittent. States it since resolved. States she has continued to have episodic right lower quadrant abdominal pain. Worse with eating. Endorses decreased p.o. intake and nausea. On chart review, I reviewed the ED note on 10/28/2024. Patient had laboratory workup that was relatively unremarkable. She had a UA that was positive for blood but negative for UTI. Her urine test was negative. She did hace a CT abdomen pelvis that showed fatty liver with a right nephrolithiasis. She had a transvaginal ultrasound that showed debris within the urinary bladder, may represent blood products or infectious/proteinaceous material. Her ovaries were normal in size. Normal blood flow. No adnexal mass or cyst. No fibroid. Normal thickness of the endometrium. Differential diagnosis includes but is not limited to acute appendicitis, constipation, gastroenteritis, UTI, urolithiasis, IBS. Suspect less likely ectopic or ovarian torsion given her previous workup being unremarkable and no history of cyst. NS bolus, morphine, Zofran ordered for symptoms. CT abdomen pelvis ordered. CBC without leukocytosis or anemia. CMP shows hyponatremia of 3.2. P.o. potassium ordered. No TINA. Patient has AST of 61, this is up from 10/28 at 38. Her ALT is 56. Alkaline phosphatase 109 this is downtrending from 10/28. Lipase unremarkable. Serum negative. CT abdomen pelvis shows mildly thickened urinary bladder wall which may reflect cystitis versus non-distention, consider correlation with UA. Nonspecific prominent mesenteric lymph nodes. 4 mm nonobstructive stone within the right kidney. Appendix without appendicitis. Gallbladder unremarkable. Liver unremarkable. Although has mild transaminitis patient not endorsing any right upper quadrant abdominal pain. She is not tender on physical exam there. Her CT abdomen pelvis is unremarkable for liver or gallbladder pathology therefore I do not think emergent ultrasound of the gallbladder is needed. UA is positive for UTI however this is not the cleanest sample with 25-50 squamous epithelial cells. However giving symptoms we will treat for UTI. Urine culture sent. First dose of Keflex given here. Patient was able to tolerate p.o. intake. She was updated of all the results and the plan to treat for UTI. She confirmed understanding. Patient was told to return back to ED if symptoms change or worsen. Symptoms do not improve she needs to follow-up with GI. She confirmed understanding the plan. Follow-up with PCP. Patient able to discharge home. Impression: 1. Right lower quadrant abdominal pain 2. UTI Lab Data Labs: Laboratory Results - last 24 hr 10/31/24 10/31/24 15:00 15:12 WBC 6.3 RBC 5.08 Hgb 12.1 Hct 37.8 MCV 74.4 L MCH 23.8 L MCHC 32.0 RDW Std Deviation 37.0 RDW Coeff of Teddy 13.9 Plt Count 223 MPV 11.5 Immature Gran % (Auto) 0.300 Neut % (Auto) 44.0 L Lymph % (Auto) 36.5 [place] % (Auto) 11.8 H Eos % (Auto) 6.4 H Baso % (Auto) 1.0 Absolute Neuts (auto) 2.8 Absolute Lymphs (auto) 2.29 Nucleated RBC % 0 Platelet Estimate ADEQUATE Sodium 141 Potassium 3.2 L Chloride 107 Carbon Dioxide 22.5 Anion Gap 12 BUN 11 Creatinine 0.92 Estim Creat Clear Calc 125.65 Est GFR (MDRD) Non-Af 89 BUN/Creatinine Ratio 11.4 Glucose 93 Lactic Acid < 1.0 Calcium 8.8 Total Bilirubin 0.34 AST 61 H ALT 56 H Alkaline Phosphatase 109 H Total Protein 7.6 Albumin 4.2 Globulin 3.4 Albumin/Globulin Ratio 1.2 Lipase 26 Urine Color Yellow Urine Clarity Cloudy Urine pH 6.0 Ur Specific [place] 1.020 Urine Protein 30 H Urine Glucose (UA) Normal Urine Ketones 5 H Urine Occult Blood 25 H Urine Nitrite Negative Urine Bilirubin 1 H Urine Urobilinogen Normal Ur Leukocyte Esterase 25 H Urine RBC 0-5 SEEN Urine WBC 5-10 SEEN Ur Squamous Epith Cells 25-50 SEEN Urine Bacteria 1+ Urine Mucus 0 SEEN Urine Test Negative Radiography Diagnostic Testing: Clinical Impression(s) from Imaging Studies Abdomen/Pelvis CT 10/31/24 15:40 IMPRESSION: Mildly thickened urinary bladder wall which may reflect cystitis vs nondistention; consider correlation with urinalysis. Nonspecific prominent mesenteric lymph nodes. Reading Location: [facility] Discharge Plan Triage Chief Complaint: Abd Pain ED Provider: Roberto English Dx/Rx/DC Orders Prescriptions: No Action ondansetron 4 mg tablet,disintegrating 4 mg PO Q8H PRN PRN (Reason: Nausea) Qty: 10 0RF Primary Care Provider: Care Physician,No Primary Referrals: Care Physician,No Primary [Primary Care Provider, Medical] Print Language: [place]i
[2024-10-31] MEDS: 0.9% Normal Saline (1000mL) 1,000 ML 999 ML IV (15:09)
[2024-10-31 15:13] LABS: Hematocrit 37.8 % (37-47); Hemoglobin 12.1 g/dL (12.0-15.0); Immature Granulocytes Count 0.020 X10^3/uL (0.0-0.0); Mean Corp Hgb Conc 32.0 g/dL (32-36); Mean Corpuscular Volume 74.4 fL (81-99); Mean Platelet Vol. 11.5 fl (6.2-12.0); NRBC Flagged by Analyzer 0 % (0-5); POSITIVE MORPHOLOGY YES; Platelet Count 223 K/mm3 (150-450); RBC Distribution Width CV 13.9 % (11.6-14.6); RBC Distribution Width SD 37.0 fl (35.1-43.9); Red Blood Count 5.08 M/mm3 (4.2-5.4); White Blood Count 6.3 K/mm3 (4.4-11.0)
[2024-10-31 15:17] LABS: Mucous, Urine 0 SEEN /hpf (<or=2+)
[2024-10-31 15:29] LABS: Differential Indicated SCAN CRITERIA MET
[2024-10-31 15:35] LABS: Internal QC Validated? YES +Cl - CLEAR BKGD; Pregnancy, Urine Negative Negative
[2024-10-31 15:36] LABS: Record Kit Lot#,Urine Preg 964736
[2024-10-31 15:38] LABS: AST(SGOT) 61 U/L (<=31); Alanine Aminotransfer ALT/SGPT 56 U/L (<=34); Albumin, Serum 4.2 g/dL (3.5-5.0); Alkaline Phosphatase 109 U/L (35-104); Anion Gap 12 (5-15); BUN 11 mg/dL (4-19); BUN/Creat Ratio 11.4 RATIO (10-20); Calcium,Total 8.8 mg/dL (7.6-11.0); Carbon Dioxide 22.5 mmol/L (21.0-32.0); Chloride 107 mmol/L (98-108); Estimated Creatinine Clearance 125.65 ml/min (50-250); Globulin 3.4 g/dL (2.2-4.2); Glucose 93 mg/dL (70-99); Lipase 26 U/L (13-75); Potassium 3.2 mmol/L (3.3-5.1)
[2024-10-31 15:40] LABS: Color, Urine Yellow (Yellow); Glucose, Dipstick Normal (Normal); Ketone-Dipstick 5 mg/dl (Negative); Leukocyte Esterase-Dipstick 25 /ul (Negative); Nitrite-Dipstick Negative (Negative); Occult Blood-Urine 25 /ul (Negative); Protein-Dipstick 30 mg/dl (Negative); Specific Gravity, Urine 1.020 (1.002-1.030)
--- NOTE | 2024-10-31 15:40 | CT_ITS ---
PROCEDURE: ABDOMEN/PELVIS W IV CONT ONLY 10/31/2024 REASON FOR EXAM: RIGHT LOWER QUADRANT ABDOMINAL PAIN TECHNIQUE: Procedure Code: [id number] Modality: CT Procedure: ABDOMEN/PELVIS W IV CONT ONLY Coronal and Sagittal reconstruction series were provided. CONTRAST: 100 mL of Isovue 370 One or more dose reduction techniques were used (e.g., Automated exposure control, adjustment of the mA and/or kV according to patient size, use of iterative reconstruction technique. RADIATION DOSE SUMMARY: DLP: 1421 mGycm COMPARISON: None FINDINGS: Limited sections of the lung bases demonstrate no focal pulmonary mass or consolidations. Bibasilar subsegmental atelectasis. The liver, spleen, pancreas, and both adrenal glands demonstrate no acute findings. Hepatic steatosis. Hepatomegaly to 22.8 cm. The gallbladder is unremarkable. The stomach is unremarkable. The small bowel loops are not dilated. The appendix is not clearly identified, although there are no secondary signs of appendicitis. No colonic obstruction. There is no free air or significant free fluid. 4 mm nonobstructive stone within the right kidney. No obstructive uropathy. No hydronephrosis. Mildly thickened urinary bladder wall which may reflect cystitis vs nondistention; consider correlation with urinalysis. The pelvic structures are intact. There is no solid pelvic mass. Prominent mesenteric lymph nodes. The aorta and IVC demonstrate no acute findings. Visualized osseous structures demonstrate no acute abnormality. CT/Abdomen/Pelvis W IV Cont ONLY IMPRESSION: Mildly thickened urinary bladder wall which may reflect cystitis vs nondistenti on; consider correlation with urinalysis. Nonspecific prominent mesenteric lymph nodes. Reading Location: [id number]
[2024-10-31 15:44] LABS: Urine Bilirubin Dipstick 1 mg/dL (Negative)
[2024-10-31 16:23] LABS: Red Blood Cells-Urine 0-5 SEEN /hpf (0-5)
[2024-10-31 16:24] LABS: Squamous Epithelial Cells - UA 25-50 SEEN /hpf (5-10)
[2024-10-31] MEDS: Potassium Chloride Oral Tablet 20 MEQ 40 MEQ PO (17:08)
[2024-10-31 18:03] VITALS: BP 117/68; PULSE 66; RESP 18; O2SAT 99
[2024-10-31 18:04] VITALS: BP 117/68; PULSE 66; RESP 18; TEMP 36.4; O2SAT 99
== END 2024-10-31 18:10 | disposition home or self-care (01) ==
PROVIDERS: Emergency Provider Surgery; Visit Provider Surgery
DX: N39.0 Urinary tract infection, site not specified (principal); R10.31 Right lower quadrant pain; N20.0 Calculus of kidney; K76.0 Fatty (change of) liver, not elsewhere classified; E87.1 Hypo-osmolality and hyponatremia
CPT/HCPCS: 74177; 80053; 81001; 81025; 83605; 83690; 85025; 87086; 87088; 96361; 96374; 96375; 99285; Q9967; A4216; J2405